=== PATIENT | male | born 1960 | race Caucasian/White ===

== ENCOUNTER 2018-05-18 14:43 | Inpatient (IN) | payer MEDICARE, SELFPAY ==
[2018-05-18 14:44] VITALS: BP 134/118; PULSE 109; RESP 17; TEMP 36.5; O2SAT 95; BMI 28.0
--- NOTE | 2018-05-18 15:07 | CT_ITS ---
STUDY: CT ABDOMEN AND PELVIS WITH CONTRAST REASON FOR EXAM: Male, 57 years old. Upper abdominal pain. Nausea and vomiting. RADIATION DOSAGE (If Supplied By Facility): CTDIvol = ( 19.95 ) mGy, DLP = ( 1261.91 ) mGycm TECHNIQUE: Transaxial images were obtained from the dome of the diaphragm to the symphysis pubis without oral contrast. 100mL ml of Isovue 300 contrast was administered. Sagittal and coronal images were reconstructed. # of Images: 454 Individualized dose optimization techniques were used for this CT. COMPARISON: None. FINDINGS: The visualized lung bases are unremarkable. The visualized portions of the heart are within normal limits. Normal liver. Normal gallbladder and extrahepatic biliary system. Normal spleen. There is mild enlargement of the pancreatic head, with associated edema. Findings are consistent with localized mild pancreatitis. No focal fluid collections or evidence for pseudocyst. There is a 2 cm low-attenuation mass of the right adrenal gland consistent with adenoma. Normal left adrenal gland. Right kidney has several renal cysts measuring as much as 4 cm. Left kidney has a tiny exophytic cyst of the lower pole. There is symmetric contrast enhancement of both kidneys. No renal stones. No hydronephrosis. Evaluation of the GI tract is limited by absence of oral contrast. Cannot exclude stomach wall thickening. No dilated loops of bowel or evidence for obstruction. Cannot exclude segmental thickening of the dotson of the small or large bowel. Cannot exclude enteritis or colitis. Appendix within normal limits. Normal abdominal aorta. Normal inferior vena cava. Normal retroperitoneum. There is a 2 cm diverticulum of the left side of the bladder. Otherwise normal bladder contour. Normal abdominal wall. Skeletal structures show extensive postsurgical changes of the lumbar spine. There is demineralization. There is lateral mass fusion along the entire length of the lumbar spine. There is focal kyphosis at L3. There is no definite acute abnormality. CT/Abdomen/Pelvis W IV Cont ONLY IMPRESSION: Findings consistent with mild localized pancreatitis of the pancreatic head. Probable 2 cm right adrenal gland adenoma. Suggest follow-up in 6 months. Electronically Signed: Will Quigley MD at 16:59 EDT , Service support ,
--- NOTE | 2018-05-18 15:23 | ED.DCSUM_ITS ---
- ER Visit Summary Date of Service: 05/18/18 Chief Complaint: Abdominal pain History of Present Illness: The patient is a 57 M presenting with abdominal pain. He states this started on Thursday. He was seen by his primary care physician. He states he has had persistent pain throughout the weekend. He has nausea and vomiting. He denies diarrhea. He had a normal bowel movement today. Denies blood in his emesis or stool. No fevers. He denies shortness of breath or chest pain. Physical Examination: Vitals are stable. Patient is afebrile. Alert no acute distress. HEENT exam is unremarkable. Neck is supple. Lungs are clear and equal bilaterally. Heart is regular rate and rhythm. Abdomen is soft healed scar midline with tenderness, no rebound or guarding Extremities are unremarkable. Skin is warm and dry. No focal neurologic deficit. Remainder of exam is unremarkable. Emergency Department Course and Treatment: Patient is given morphine, Zofran IV. CBC shows a white count 11.7. Chemistries show sodium 134, potassium 3.3, g lucose 145. Lipase is 609. CT abdomen pelvis shows findings consistent with mild localized pancreatitis of the pancreatic head. Probable 2 cm right adrenal gland adenoma. Suggest follow-up in 6 months. He was given repeated dose of morphine. Discussed with the hospitalist for admission. Disposition: Admission Impression: Pancreatitis This note was generated with [employer] dictation software. It may contain incorrect words, spelling, and punctuation that were not noted in review of the chart prior to signing ED Disposition - Plan for ED Patient: Chief Complaint: Abd Pain Referrals: Linda Dominguez MD [Primary Care Provider] -
[2018-05-18] MEDS: Morphine 4 MG/ML Syringe IV ×2 (15:39→16:36)
[2018-05-18] MEDS: 0.9% Normal Saline 1,000 ML 1000 ML IV (15:39)
[2018-05-18] MEDS: Ondansetron 4 MG/2 ML Vial IV (15:39)
[2018-05-18 16:04] LABS: ALB/GLOB Ratio 0.8 RATIO (0.9-2.4); AST(SGOT) 34 U/L (15-37); Alanine Aminotransfer ALT/SGPT 47 U/L (16-61); Albumin, Serum 3.5 g/dL (3.2-5.0); Alkaline Phosphatase 93 U/L (45-117); Anion Gap 7 (5-15); BUN 17 mg/dL (7-18); BUN/Creat Ratio 20.2 RATIO (10-20); Calcium,Total 9.1 mg/dL (8.5-10.1); Chloride 99 mmol/L (98-107); Creatinine, Serum 0.84 mg/dL (0.70-1.30); EST Glomerular Filtration Rate 99 mL/min (>60); Est Glom Filt Rate - Afr Amer 120 mL/min (>60); Globulin 4.3 g/dL (2.2-4.2); Glucose 145 mg/dL (74-106); Lipase 609 U/L (73-393); Potassium 3.3 mmol/L (3.5-5.1); Protein, Total 7.8 g/dL (6.4-8.2); Sodium Level 134 mmol/L (136-145)
[2018-05-18 16:09] LABS: Absolute Lymphocyte Count 2.54 X10^3/ul (0.83-4.51); Absolute Neutrophil Count 7.8 X10^3/uL (2.0-7.7); Basophil# 0.04 X10^3/uL; Basophil% 0.3 % (0-1); Eosinophil# 0.19 X10^3/uL; Eosinophils% 1.6 % (0-5); Hematocrit 42.4 % (40-54); Hemoglobin 14.8 g/dl (13.0-16.5); Lymphocyte # 2.54 X10^3/ul (4.0); Lymphocyte % 21.8 % (19-41); Mean Corp Hgb Conc 34.9 g/gl (32-36); Mean Corpuscular Hgb 32.6 pg (27.0-32.0); Mean Corpuscular Volume 93.4 fL (80-94); Mean Platelet Vol. 9.8 fl (6.2-12.0); Monocyte# 1.07 X10^3/uL; Monocyte% 9.2 % (0-10); Neutrophil % 66.9 % (47-70); Platelet Count 252 K/mm3 (150-450); RBC Distribution Width CV 12.7 % (11.6-14.6); RBC Distribution Width SD 42.9 fl (35.1-43.9); Red Blood Count 4.54 M/mm3 (4.6-6.2); White Blood Count 11.7 K/mm3 (4.4-11.0)
[2018-05-18 16:10] LABS: POSITIVE COUNT NO; POSITIVE DIFFERENTIAL NO; POSITIVE MORPHOLOGY NO
[2018-05-18 16:58] VITALS: BP 142/84; PULSE 94; RESP 16; O2SAT 98
--- NOTE | 2018-05-18 17:45 | PCM.HP.STD ---
Problem List (1) Acute pancreatitis Status: Acute (2) Hypertension Status: Chronic (3) Chronic lower back pain Status: Chronic History of Present Illness Date of Admission: 05/18/18 Chief Complaint: Abdominal pain. The patient is a 57 year old M with past medical history as mentioned above presented to the emergency department because of abdominal pain. Her symptoms started around 4-5 days ago with epigastric pain, dull aching pain, occasionally sharp, was progressive and initially was 4-5 out of 10 severity, progressed since yesterday and now it is up to 9 out of 10 in severity, not radiating, associated with nausea and without aggravating or relieving factors. Shortly, the pain was intermittent but it has been constant for the last couple of days. He denied fever or chills. He denied constipation or diarrhea. He mentioned that he had bronchitis last week and he has been on different medications for cough and also has been taking prednisone and Zithromax. In the emergency department, he was afebrile, slightly tachycardic, other vital signs are stable. Routine blood work was remarkable for mild leukocytosis, potassium of 3.3. His LFT was normal. Lipase was 609. CT scan abdomen and pelvis with IV contrast revealed findings consistent with mild localized pancreatitis of the pancreatic head. He is being admitted for acute mild pancreatitis for treatment. Past Medical History Past Medical History (Chronic Problems): Chronic Problems Hypertension (Chronic) Chronic lower back pain (Chronic) Allergies acetaminophen Adverse Reaction (Verified 05/18/18 14:44) Nausea/Vom/Diarrhea fentanyl [From Duragesic] Adverse Reaction (Verified 05/18/18 14:44) Nausea/Vom/Diarrhea metoclopramide HCl [From Reglan] Adverse Reaction (Verified 05/18/18 14:44) Other nabumetone [From Relafen] Adverse Reaction (Verified 05/18/18 14:44) Nausea/Vom/Diarrhea Home Medications: Ambulatory Orders Medication Instructions Recorded Triamterene 37.5MG/Hctz 25MG 1 tablet PO DAILY 12/12/13 [Maxzide 37.5 mg-25 mg Tablet] Albuterol Sulfate [Ventolin Hfa] 2 puff INHALATION Q4H 05/18/18 Aspirin 650 mg PO DAILY@0800 05/18/18 Cyclobenzaprine [Flexeril] 10 mg PO TID PRN PRN 05/18/18 Meloxicam 15 mg PO DAILY 05/18/18 Prednisone 10 mg PO PRN PRN 05/18/18 Surgical History: herniorrhaphy, - - Back surgery. Psychiatric History: No pertinent psych hx Lives: Spouse/ Significant Other Smoking Status: Former smoker Alcohol: Heavy Drugs: None - *Family History Paternal History Items: No pertinent history - Cardiac history is negative in first-degree family relative Maternal History Items: No pertinent history Review of Systems Constitutional: Reports: Anorexia. Denies: Chills, Fever, Weakness Eyes: Denies: Blurred vision, Conjunctivae Inflammation, Double vision, Redness HEENT: Denies: Difficulty Hearing, Ear Pain, Eye Pain, Nasal Congestion, Sore Throat Cardiovascular: Denies: Chest Pain, Chest Pressure, Edema, Heaviness, Paroxysmal Noc. Dyspnea, Syncope Respiratory: Denies: Cough, Pleuritic Pain, Shortness of Breath, Sputum production, Wheezing Gastrointestinal: Reports: Abdominal Pain, Nausea. Denies: Constipation, Diarrhea, Hematochezia, Melena, Vomiting Genitourinary: Denies: Dysuria, Frequency, Hematuria Musculoskeletal: Reports: Back Pain. Denies: Arm Pain, Foot Pain Skin: Denies: Dryness, Rash Neurological: Denies: Balance problems, Double vision, Change in Speech, Slurred speech, Confusion, Focal weakness, Headaches, Incoordination Psychiatric: Denies: Anxiety, Depression VTE Information - Inpt Only VTE Present on Admission: No VTE Mechan Device Prophylaxis: None VTE Pharm Prophylaxis ordered?: Yes Patient Problems: Active and Suspected Problems Acute pancreatitis (Acute) - Physical Exam General: Alert, Oriented x3, Cooperative, No apparent distress HEENT: Atraumatic, PERRLA, EOMI, Normocephalic Oral: Moist Mucosa, No Gingival or Mucosal Lesions/ Ulcerations Neck: Supple, No JVD, Negative Carotid Bruits, Trachea Midline, Thyroid Normal Size and Texture Lungs: Clear to auscultation, No rhonchi, No wheeze, No rales, Diminished Cardiovascular: Regular rate, Regular Rhythm, Normal S1, Normal S2, PMI Normal Abdomen: Bowel Sounds Present, Soft, Non-Distended, No Hepato-splenomegaly, Tender - Epigastric tenderness, no guarding or rigidity. Extremities: No clubbing, No cyanosis, No edema Skin: No rashes, No breakdown Lymphatic: No Cervical, Supraclavicular, or Inguinal Adenopathy Neurological: Cranial nerves II-XII grossly intact, Motor Exam 5/5 strength throughout Psych/Mental Status: Normal Affect, Appropriate, Alert and oriented to time, place, person, mood and affect Vital Signs Temp Pulse Resp BP Pulse Ox 97.7 F L 94 16 142/84 H 98 05/18/18 14:44 05/18/18 16:58 05/18/18 16:58 05/18/18 16:58 05/18/18 16:58 Oxygen Delivery Method Room Air Weight: 236 lb Body Mass Index (BMI) 28.0 Laboratory Tests Past 24 Hrs 05/18/18 05/18/18 15:30 15:30 WBC 11.7 H RBC 4.54 L Hgb 14.8 Hct 42.4 MCV 93.4 MCH 32.6 H MCHC 34.9 RDW 12.7 RDW Differential 42.9 Plt Count 252 MPV 9.8 Immature Gran % (Auto) 0.200 Neut % (Auto) 66.9 Lymph % (Auto) 21.8 [place] % (Auto) 9.2 Eos % (Auto) 1.6 Baso % (Auto) 0.3 Absolute Neuts (auto) 7.8 H Absolute Lymphs (auto) 2.54 Total Counted Not Reportable Sodium 134 L Potassium 3.3 L Chloride 99 Carbon Dioxide 28.0 Anion Gap 7 BUN 17 Creatinine 0.84 Estim Creat Clear Calc 120.80 Est GFR (MDRD) Af Amer 120 Est GFR (MDRD) Non-Af 99 BUN/Creatinine Ratio 20.2 H Glucose 145 H Calcium 9.1 Total Bilirubin 0.40 AST 34 ALT 47 Alkaline Phosphatase 93 Total Protein 7.8 Albumin 3.5 Globulin 4.3 H Albumin/Globulin Ratio 0.8 L Lipase 609 H Clinical Impression(s) from Imaging Studies Abdomen/Pelvis CT 05/18/18 15:07 IMPRESSION: Findings consistent with mild localized pancreatitis of the pancreatic head. Probable 2 cm right adrenal gland adenoma. Suggest follow-up in 6 months. Electronically Signed: Will Quigley MD at 16:59 EDT , Service support , Assessment/Plan All Active Problems Acute pancreatitis (Acute) This is a 57 years old male patient presented to the emergency department because of abdominal pain and he was found to have mildly elevated pancreatic lipase and findings consistent with mild localized acute pancreatitis of the clear liquid and he is being admitted for treatment. #1 acute mild localized pancreatitis of the pancreatic head: CT scan abdomen and pelvis reviewed. It revealed localized pancreatitis of the precasting head. It also showed normal liver, normal gallbladder and extrahepatic biliary system. LFTs normal. Patient admitting to drinking alcohol 3 times almost every other day but not daily. He has been taking prednisone for the last couple of days because of bronchitis. This pancreatitis could be due to alcoholic pancreatitis versus steroid-induced. Plan: Admit to [facility] floor, keep on clear liquids, IV fluids, IV morphine as needed for pain, IV antiemetics, routine EKG, repeat CBC and CMP tomorrow morning, repeat lipase tomorrow morning, fasting lipid profile. #2 hypokalemia: Likely due to Maxzide. Plan to replace potassium with IV fluids, repeat BMP tomorrow morning. #3 hypertension: Blood pressure stable at this time, continue Maxzide, IV hydralazine as needed. #4 chronic back pain: Continue Flexeril, IV morphine as above. #5 DVT prophylaxis: Subcu Lovenox. This note was generated with [employer] dictation software. It may contain incorrect words, spelling, and punctuation that were not noted in checking the note before signing. Code Visit Inpatient E&M: 98658 Init Hosp L3
--- NOTE | 2018-05-18 17:49 | HP.PCM_ITS ---
Problem List (1) Acute pancreatitis Status: Acute (2) Hypertension Status: Chronic (3) Chronic lower back pain Status: Chronic History of Present Illness Date of Admission: 05/18/18 Chief Complaint: Abdominal pain. The patient is a 57 year old M with past medical history as mentioned above presented to the emergency department because of abdominal pain. Her symptoms s tarted around 4-5 days ago with epigastric pain, dull aching pain, occasionally sharp, was progressive and initially was 4-5 out of 10 severity, progressed since yesterday and now it is up to 9 out of 10 in severity, not radiating, associated with nausea and without aggravating or relieving factors. Shortly, the pain was intermittent but it has been constant for the last couple of days. He denied fever or chills. He denied constipation or diarrhea. He mentioned that he had bronchitis last week and he has been on different medications for cough and also has been taking prednisone and Zithromax. In the emergency department, he was afebrile, slightly tachycardic, other vital signs are stable. Routine blood work was remarkable for mild leukocytosis, potassium of 3.3. His LFT was normal. Lipase was 609. CT scan abdomen and pelvis with IV contrast revealed findings consistent with mild localized pancreatitis of the pancreatic head. He is being admitted for acute mild pancreatitis for treatment. Past Medical History Past Medical History (Chronic Problems): Chronic Problems Hypertension (Chronic) Chronic lower back pain (Chronic) Allergies acetaminophen Adverse Reaction (Verified 05/18/18 14:44) Nausea/Vom/Diarrhea fentanyl [From Duragesic] Adverse Reaction (Verified 05/18/18 14:44) Nausea/Vom/Diarrhea metoclopramide HCl [From Reglan] Adverse Reaction (Verified 05/18/18 14:44) Other nabumetone [From Relafen] Adverse Reaction (Verified 05/18/18 14:44) Nausea/Vom/Diarrhea Home Medications: Ambulatory Orders Medication Instructions Recorded Triamterene 37.5MG/Hctz 25MG 1 tablet PO DAILY 12/12/13 [Maxzide 37.5 mg-25 mg Tablet] Albuterol Sulfate [Ventolin Hfa] 2 puff INHALATION Q4H 05/18/18 Aspirin 650 mg PO DAILY@0800 05/18/18 Cyclobenzaprine [Flexeril] 10 mg PO TID PRN PRN 05/18/18 Meloxicam 15 mg PO DAILY 05/18/18 Prednisone 10 mg PO PRN PRN 05/18/18 Surgical History: herniorrhaphy, - - Back surgery. Psychiatric History: No pertinent psych hx Lives: Spouse/ Significant Other Smoking Status: Former smoker Alcohol: Heavy Drugs: None - *Family History Paternal History Items: No pertinent history - Cardiac history is negative in first- degree family relative Maternal History Items: No pertinent history Review of Systems Constitutional: Reports: Anorexia. Denies: Chills, Fever, Weakness Eyes: Denies: Blurred vision, Conjunctivae Inflammation, Double vision, Redness HEENT: Denies: Difficulty Hearing, Ear Pain, Eye Pain, Nasal Congestion, Sore Throat Cardiovascular: Denies: Chest Pain, Chest Pressure, Edema, Heaviness, Paroxysmal Noc. Dyspnea, Syncope Respiratory: Denies: Cough, Pleuritic Pain, Shortness of Breath, Sputum production, Wheezing Gastrointestinal: Reports: Abdominal Pain, Nausea. Denies: Constipation, Diarrhea, Hematochezia, Melena, Vomiting Genitourinary: Denies: Dysuria, Frequency, Hematuria Musculoskeletal: Reports: Back Pain. Denies: Arm Pain, Foot Pain Skin: Denies: Dryness, Rash Neurological: Denies: Balance problems, Double vision, Change in Speech, Slurred speech, Confusion, Focal weakness, Headaches, Incoordination Psychiatric: Denies: Anxiety, Depression VTE Information - Inpt Only VTE Present on Admission: No VTE Mechan Device Prophylaxis: None VTE Pharm Prophylaxis ordered?: Yes Patient Problems: Active and Suspected Problems Acute pancreatitis (Acute) - Physical Exam General: Alert, Oriented x3, Cooperative, No apparent distress HEENT: Atraumatic, PERRLA, EOMI, Normocephalic Oral: Moist Mucosa, No Gingival or Mucosal Lesions/ Ulcerations Neck: Supple, No JVD, Negative Carotid Bruits, Trachea Midline, Thyroid Normal Size and Texture Lungs: Clear to auscultation, No rhonchi, No wheeze, No rales, Diminished Cardiovascular: Regular rate, Regular Rhythm, Normal S1, Normal S2, PMI Normal Abdomen: Bowel Sounds Present, Soft, Non-Distended, No Hepato-splenomegaly, Tender - Epigastric tenderness, no guarding or rigidity. Extremities: No clubbing, No cyanosis, No edema Skin: No rashes, No breakdown Lymphatic: No Cervical, Supraclavicular, or Inguinal Adenopathy Neurological: Cranial nerves II-XII grossly intact, Motor Exam 5/5 strength th roughout Psych/Mental Status: Normal Affect, Appropriate, Alert and oriented to time, place, person, mood and affect Vital Signs Temp Pulse Resp BP Pulse Ox 97.7 F L 94 16 142/84 H 98 05/18/18 14:44 05/18/18 16:58 05/18/18 16:58 05/18/18 16:58 05/18/18 16:58 Oxygen Delivery Method Room Air Weight: 236 lb Body Mass Index (BMI) 28.0 Laboratory Tests Past 24 Hrs 05/18/18 05/18/18 15:30 15:30 WBC 11.7 H RBC 4.54 L Hgb 14.8 Hct 42.4 MCV 93.4 MCH 32.6 H MCHC 34.9 RDW 12.7 RDW Differential 42.9 Plt Count 252 MPV 9.8 Immature Gran % (Auto) 0.200 Neut % (Auto) 66.9 Lymph % (Auto) 21.8 [place] % (Auto) 9.2 Eos % (Auto) 1.6 Baso % (Auto) 0.3 Absolute Neuts (auto) 7.8 H Absolute Lymphs (auto) 2.54 Total Counted Not Reportable Sodium 134 L Potassium 3.3 L Chloride 99 Carbon Dioxide 28.0 Anion Gap 7 BUN 17 Creatinine 0.84 Estim Creat Clear Calc 120.80 Est GFR (MDRD) Af Amer 120 Est GFR (MDRD) Non-Af 99 BUN/Creatinine Ratio 20.2 H Glucose 145 H Calcium 9.1 Total Bilirubin 0.40 AST 34 ALT 47 Alkaline Phosphatase 93 Total Protein 7.8 Albumin 3.5 Globulin 4.3 H Albumin/Globulin Ratio 0.8 L Lipase 609 H Clinical Impression(s) from Imaging Studies Abdomen/Pelvis CT 05/18/18 15:07 IMPRESSION: Findings consistent with mild localized pancreatitis of the pancreatic head. Probable 2 cm right adrenal gland adenoma. Suggest follow-up in 6 months. Electronically Signed: Will Quigley MD at 16:59 EDT , Service support , Assessment/Plan All Active Problems Acute pancreatitis (Acute) This is a 57 years old male patient presented to the emergency department because of abdominal pain and he was found to have mildly elevated pancreatic lipase and findings consistent with mild localized acute pancreatitis of the clear liquid and he is being admitted for treatment. #1 acute mild localized pancreatitis of the pancreatic head: CT scan abdomen and pelvis reviewed. It revealed localized pancreatitis of the precasting head. It also showed normal liver, normal gallbladder and extrahepatic biliary system. LFTs normal. Patient admitting to drinking alcohol 3 times almost every other day but not daily. He has been taking prednisone for the last couple of days because of bronchitis. This pancreatitis could be due to alcoholic pancreatitis versus steroid-induced. [facility], keep on clear liquids, IV fluids, IV morphine as needed for pain, IV antiemetics, routine EKG, repeat CBC and CMP tomorrow morning, repeat lipase tomorrow morning, fasting lipid profile. #2 hypokalemia: Likely due to Maxzide. Plan to replace potassium with IV fluids, repeat BMP tomorrow morning. #3 hypertension: Blood pressure stable at this time, continue Maxzide, IV hydralazine as needed. #4 chronic back pain: Continue Flexeril, IV morphine as above. #5 DVT prophylaxis: Subcu Lovenox. This note was generated with [employer] dictation software. It may contain incorrect words, spelling, and punctuation that were not noted in checking the note before signing. Code Visit Inpatient E&M: 18136 Init Hosp L3
[2018-05-18 17:55] VITALS: BMI 28.7
[2018-05-18 18:02] VITALS: BMI 28.7
[2018-05-18 18:08] VITALS: BP 154/95; PULSE 105; RESP 16; TEMP 36.6; O2SAT 95
[2018-05-18 18:17] VITALS: PULSE 105
--- NOTE | 2018-05-18 18:58 | EKG12_ITS ---
Test Reason : HYPERTENSION Blood Pressure : / mmHG Vent. Rate : 102 BPM Atrial Rate : 102 BPM P-R Int : 150 ms QRS Dur : 154 ms QT Int : 390 ms P-R-T Axes : 015 036 -10 degrees QTc Int : 508 ms Sinus tachycardia Right bundle branch block T wave abnormality, consider inferior ischemia Abnormal ECG When compared with ECG of 27-APR-2014 05:47, Vent. rate has increased BY 38 BPM Right bundle branch block is now Present Confirmed by TESS MITCHELL, JOSE ([id number]), newspaper or periodical editor DESHAWN PATE ([id number] on 05/24/2018 11:02:26 AM Referred By: SHANON Confirmed By:JOSE PULIDO MD
[2018-05-18] MEDS: Morphine 2 MG/ML Syringe IV ×2 (19:31→22:53)
[2018-05-19] VITALS (8 sets, daily range): BP systolic 117–129; BP diastolic 78–87; PULSE 80–98; RESP 16–18; TEMP 36.4–36.9; O2SAT 92–96
[2018-05-19] MEDS: Ondansetron 4 MG/2 ML Vial IV ×2 (03:34→16:53)
[2018-05-19] MEDS: Morphine 2 MG/ML Syringe IV ×5 (03:34→22:20)
[2018-05-19 06:31] LABS: Absolute Lymphocyte Count 1.58 X10^3/ul (0.83-4.51); Absolute Neutrophil Count 6.3 X10^3/uL (2.0-7.7); Basophil# 0.05 X10^3/uL; Basophil% 0.5 % (0-1); Eosinophil# 0.26 X10^3/uL; Eosinophils% 2.9 % (0-5); Hemoglobin 13.6 g/dl (13.0-16.5); Lymphocyte # 1.58 X10^3/ul (4.0); Lymphocyte % 17.3 % (19-41); Mean Corp Hgb Conc 34.9 g/gl (32-36); Mean Corpuscular Hgb 32.8 pg (27.0-32.0); Mean Platelet Vol. 10.1 fl (6.2-12.0); Monocyte# 0.93 X10^3/uL; Monocyte% 10.2 % (0-10); Neutrophil # 6.28 X10^3/uL (2.7-7.7); Neutrophil % 68.9 % (47-70); Platelet Count 252 K/mm3 (150-450); RBC Distribution Width CV 12.4 % (11.6-14.6); RBC Distribution Width SD 41.7 fl (35.1-43.9); Red Blood Count 4.15 M/mm3 (4.6-6.2); White Blood Count 9.1 K/mm3 (4.4-11.0)
[2018-05-19 06:32] LABS: POSITIVE COUNT NO; POSITIVE DIFFERENTIAL NO; POSITIVE MORPHOLOGY NO
[2018-05-19 07:00] LABS: ALB/GLOB Ratio 0.7 RATIO (0.9-2.4); AST(SGOT) 18 U/L (15-37); Alanine Aminotransfer ALT/SGPT 37 U/L (16-61); Albumin, Serum 2.8 g/dL (3.2-5.0); Alkaline Phosphatase 78 U/L (45-117); Anion Gap 10 (5-15); BUN 13 mg/dL (7-18); BUN/Creat Ratio 21.6 RATIO (10-20); Calcium,Total 8.3 mg/dL (8.5-10.1); Chloride 102 mmol/L (98-107); Cholesterol 159 mg/dL (200); EST Glomerular Filtration Rate 146 mL/min (>60); Est Glom Filt Rate - Afr Amer 177 mL/min (>60); Estimated Creatinine Clearance 169.13 ml/min; Globulin 3.9 g/dL (2.2-4.2); Glucose 103 mg/dL (74-106); High Density Lipoprotein 44 mg/dL; Lipase 344 U/L (73-393); Potassium 3.5 mmol/L (3.5-5.1); Protein, Total 6.7 g/dL (6.4-8.2); Sodium Level 138 mmol/L (136-145); Triglycerides 66 mg/dL; Very Low Density Lipoprotein 13 mg/dL (5-40)
[2018-05-19] MEDS: Triamterene 37.5MG/Hctz 25MG Capsule 1 CAP PO (08:58)
--- NOTE | 2018-05-19 09:45 | CASEMGMT ---
RN KELBY Face to Face with patient for initial transition planning/care coordination assessment. RN CM introduced self and role at [facility]. Patient lying in bed, alert and oriented. Patient willing to participate in assessment and is able to answer all questions appropriately. Care providers, pharmacy, and demographics verified. Patient wishes to discharge home, denies need for home health at this time. Patient states he has no further needs or concerns at this time. CM to follow for discharge planning needs that may arise. PCP: Angelica Specialists: None Preferred Pharmacy: [facility] Insurance: [facility] Prescription Benefit: [employer] Living Will/HPOA: No, declined additional information LNOK: Living Arrangements: Lives with in first floor apartment, independent Transportation: Self or DME/HHC: Has cane, WC, and scooter. Declines HHC or additional DME at this time. Disposition Plan: Patient to discharge home with family support and follow-up plans in place. Kayla MENAS, RN, CM
--- NOTE | 2018-05-19 10:01 | PCM.PN.HOSP ---
Patient Problems: Active and Suspected Problems Acute pancreatitis (Acute) Subjective: Abdominal pain is better but still ongoing. This is all consistent with his prior episodes of pancreatitis. Self medicates because he cannot take opiates as it makes him groggy and nauseated. Vitals/I&O's: Vital Signs Temp Pulse Resp BP Pulse Ox 36.5 C L 80 16 129/87 H 92 05/19/18 05:49 05/19/18 08:01 05/19/18 05:49 05/19/18 05:49 05/19/18 07:27 Oxygen Delivery Method Room Air Weight: 109.769 kg Body Mass Index (BMI) 28.7 Intake and Output for Last 24 Hours 05/17/18 05/18/18 05/19/18 23:59 23:59 23:59 Intake Total 1364 / 1364 Output Total 950 / 950 Balance 414 / 414 General: Alert, Cooperative, No apparent distress HEENT: Atraumatic, Normocephalic Oral: Moist Mucosa, No Gingival or Mucosal Lesions/ Ulcerations Neck: No Nodes, Thyroid Normal Size and Texture Lungs: Clear to auscultation, Normal air movement, No rhonchi, No wheeze Cardiovascular: Regular rate, Regular Rhythm, Normal S1, Normal S2, No murmurs Abdomen: Bowel Sounds Present, Soft, Non-Distended, Tender - Epigastric Extremities: No edema, No Calf Tenderness Skin: No rashes, No breakdown Musculoskeletal: No Tenderness to Palpation of Joints or Extremities, No Muscle Wasting Psych/Mental Status: Normal Affect, Appropriate Laboratory Results 05/18/18 15:30: WBC 11.7 H, RBC 4.54 L, Hgb 14.8, Hct 42.4, MCV 93.4, MCH 32.6 H, MCHC 34.9, RDW 12.7, RDW Differential 42.9, Plt Count 252, MPV 9.8, Immature Gran % (Auto) 0.200, Neut % (Auto) 66.9, Lymph % (Auto) 21.8, [place] % (Auto) 9.2, Eos % (Auto) 1.6, Baso % (Auto) 0.3, Absolute Neuts (auto) 7.8 H, Absolute Lymphs (auto) 2.54, Total Counted Not Reportable 05/18/18 15:30: Sodium 134 L, Potassium 3.3 L, Chloride 99, Carbon Dioxide 28.0, Anion Gap 7, BUN 17, Creatinine 0.84, Estim Creat Clear Calc 120.80, Est GFR (MDRD) Af Amer 120, Est GFR (MDRD) Non-Af 99, BUN/Creatinine Ratio 20.2 H, Glucose 145 H, Calcium 9.1, Total Bilirubin 0.40, AST 34, ALT 47, Alkaline Phosphatase 93, Total Protein 7.8, Albumin 3.5, Globulin 4.3 H, Albumin/Globulin Ratio 0.8 L, Lipase 609 H 05/19/18 05:26: WBC 9.1, RBC 4.15 L, Hgb 13.6, Hct 39.0 L, MCV 94.0, MCH 32.8 H, MCHC 34.9, RDW 12.4, RDW Differential 41.7, Plt Count 252, MPV 10.1, Immature Gran % (Auto) 0.200, Neut % (Auto) 68.9, Lymph % (Auto) 17.3 L, [place] % (Auto) 10.2 H, Eos % (Auto) 2.9, Baso % (Auto) 0.5, Absolute Neuts (auto) 6.3, Absolute Lymphs (auto) 1.58, Total Counted Not Reportable 05/19/18 05:26: Sodium 138, Potassium 3.5, Chloride 102, Carbon Dioxide 26.0, Anion Gap 10, BUN 13, Creatinine 0.60 L, Estim Creat Clear Calc 169.13, Est GFR (MDRD) Af Amer 177, Est GFR (MDRD) Non-Af 146, BUN/Creatinine Ratio 21.6 H, Glucose 103, Calcium 8.3 L, Total Bilirubin 0.80, AST 18, ALT 37, Alkaline Phosphatase 78, Total Protein 6.7, Albumin 2.8 L, Globulin 3.9, Albumin/Globulin Ratio 0.7 L, Triglycerides 66, Cholesterol 159, LDL Cholesterol 102, VLDL Cholesterol 13, HDL Cholesterol 44, Lipase 344 Current Medications Albuterol Sulfate (Ventolin Aerosols) 2.5 mg INHALATION Q4H PRN PRN PRN Reason: Shortness of breath, wheezing Cyclobenzaprine HCl (Flexeril) 10 mg PO TID PRN PRN PRN Reason: PAIN Enoxaparin Sodium (Lovenox) 40 mg SC DAILY ROXANA Hydralazine HCl (Apresoline Iv) 5 mg IV Q6H PRN PRN PRN Reason: for SBP>160 Potassium Chloride/Sodium Chloride () 1,000 mls @ 125 mls/hr IV .Q8H [facility] Last Admin: 05/19/18 03:40 Dose: 125 mls/hr Magnesium Hydroxide (Milk Of Magnesia) 30 ml PO DAILY PRN PRN PRN Reason: Constipation Morphine Sulfate () 1 - 2 mg IV Q3H PRN PRN PRN Reason: SEVERE PAIN (6-05/12) Last Admin: 05/19/18 07:20 Dose: 2 mg Nutritional Formula (Lactose Free) (Ensure Clear) 120 ml PO 4X/DAY [facility] Last Admin: 05/19/18 08:58 Dose: 120 ml Ondansetron HCl (Zofran) 4 mg IV Q6H PRN PRN PRN Reason: NAUSEA/VOMITING Last Admin: 05/19/18 03:34 Dose: 4 mg Triamterene/HCTZ (Dyazide (G)) 1 cap PO DAILY [facility] Last Admin: 05/19/18 08:58 Dose: 1 cap Medical Necessity - Tobacco Use Smoking Status: Former smoker Tobacco Use: Cigarettes Assessment/Plan All Active Problems Acute pancreatitis (Acute) 1. Acute pancreatitis Secondary to alcohol Patient claims only drink a few beers every 2 or 3 days. 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 I advised complete cessation of alcohol, patient x-rays understanding. In the meantime, continue with IV fluids, pain control and antiemetics. I told the patient that to evaluate if any other possibilities for his pink otitis may be at play, that the alcohol need to be taken out completely before that can be further assessed. Vision on a clear diet and if he tolerates that then could advance to full liquid diet later today. 2. Chronic back pain Patient had a L3 vertebral burst fracture in the early 1980s Patient states that he has been self-medicating with alcohol. Cannot take opiates due to side effects Patient had seen pain management but declined injection I asked patient to reevaluate that at a later point if it is causing him much discomfort to pursue an injection I also recommend patient follow-up with physical therapy as well 3. DVT prophylaxis with Lovenox 4. Disposition: Depending on patient's overall response overall doing better clinically then could be discharged in next 24-48 hours. 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 Also discussed pain control and other modalities therapy to help him with his chronic back pain. Code Visit Inpatient E&M: 47598 Subs Hosp L3
--- NOTE | 2018-05-19 10:06 | PN_ITS ---
Patient Problems: Active and Suspected Problems Acute pancreatitis (Acute) Subjective: Abdominal pain is better but still ongoing. This is all consistent with his prior episodes of pancreatitis. Self medicates because he cannot take opiates as it makes him groggy and nauseated. Vitals/I&O's: Vital Signs Temp Pulse Resp BP Pulse Ox 36.5 C L 80 16 129/87 H 92 05/19/18 05:49 05/19/18 08:01 05/19/18 05:49 05/19/18 05:49 05/19/18 07:27 Oxygen Delivery Method Room Air Weight: 109.769 kg Body Mass Index (BMI) 28.7 Intake and Output for Last 24 Hours 05/17/18 05/18/18 05/19/18 23:59 23:59 23:59 Intake Total 1364 / 1364 Output Total 950 / 950 Balance 414 / 414 General: Alert, Cooperative, No apparent distress HEENT: Atraumatic, Normocephalic Oral: Moist Mucosa, No Gingival or Mucosal Lesions/ Ulcerations Neck: No Nodes, Thyroid Normal Size and Texture Lungs: Clear to auscultation, Normal air movement, No rhonchi, No wheeze Cardiovascular: Regular rate, Regular Rhythm, Normal S1, Normal S2, No murmurs Abdomen: Bowel Sounds Present, Soft, Non-Distended, Tender - Epigastric Extremities: No edema, No Calf Tenderness Skin: No rashes, No breakdown Musculoskeletal: No Tenderness to Palpation of Joints or Extremities, No Muscle Wasting Psych/Mental Status: Normal Affect, Appropriate Laboratory Results 05/18/18 15:30: WBC 11.7 H, RBC 4.54 L, Hgb 14.8, Hct 42.4, MCV 93.4, MCH 32.6 H , MCHC 34.9, RDW 12.7, RDW Differential 42.9, Plt Count 252, MPV 9.8, Immature Gran % (Auto) 0.200, Neut % (Auto) 66.9, Lymph % (Auto) 21.8, [place] % (Auto) 9.2, Eos % (Auto) 1.6, Baso % (Auto) 0.3, Absolute Neuts (auto) 7.8 H, Absolute Lymphs (auto) 2.54, Total Counted Not Reportable 05/18/18 15:30: Sodium 134 L, Potassium 3.3 L, Chloride 99, Carbon Dioxide 28.0, Anion Gap 7, BUN 17, Creatinine 0.84, Estim Creat Clear Calc 120.80, Est GFR (MDRD) Af Amer 120, Est GFR (MDRD) Non-Af 99, BUN/Creatinine Ratio 20.2 H, Glucose 145 H, Calcium 9.1, Total Bilirubin 0.40, AST 34, ALT 47, Alkaline Phosphatase 93, Total Protein 7.8, Albumin 3.5, Globulin 4.3 H, Albumin/Globulin Ratio 0.8 L, Lipase 609 H 05/19/18 05:26: WBC 9.1, RBC 4.15 L, Hgb 13.6, Hct 39.0 L, MCV 94.0, MCH 32.8 H, MCHC 34.9, RDW 12.4, RDW Differential 41.7, Plt Count 252, MPV 10.1, Immature Gran % (Auto) 0.200, Neut % (Auto) 68.9, Lymph % (Auto) 17.3 L, [place] % (Auto) 10.2 H, Eos % (Auto) 2.9, Baso % (Auto) 0.5, Absolute Neuts (auto) 6.3, Absolute Lymphs (auto) 1.58, Total Counted Not Reportable 05/19/18 05:26: Sodium 138, Potassium 3.5, Chloride 102, Carbon Dioxide 26.0, Anion Gap 10, BUN 13, Creatinine 0.60 L, Estim Creat Clear Calc 169.13, Est GFR (MDRD) Af Amer 177, Est GFR (MDRD) Non-Af 146, BUN/Creatinine Ratio 21.6 H, Glucose 103, Calcium 8.3 L, Total Bilirubin 0.80, AST 18, ALT 37, Alkaline Phosphatase 78, Total Protein 6.7, Albumin 2.8 L, Globulin 3.9, Albumin/Globulin Ratio 0.7 L, Triglycerides 66, Cholesterol 159, LDL Cholesterol 102, VLDL Cholesterol 13, HDL Cholesterol 44, Lipase 344 Current Medications Albuterol Sulfate (Ventolin Aerosols) 2.5 mg INHALATION Q4H PRN PRN PRN Reason: Shortness of breath, wheezing Cyclobenzaprine HCl (Flexeril) 10 mg PO TID PRN PRN PRN Reason: PAIN Enoxaparin Sodium (Lovenox) 40 mg SC DAILY ROXANA Hydralazine HCl (Apresoline Iv) 5 mg IV Q6H PRN PRN PRN Reason: for SBP>160 Potassium Chloride/Sodium Chloride () 1,000 mls @ 125 mls/hr IV .Q8H ROXANA Last Admin: 05/19/18 03:40 Dose: 125 mls/hr Magnesium Hydroxide (Milk Of Magnesia) 30 ml PO DAILY PRN PRN PRN Reason: Constipation Morphine Sulfate () 1 - 2 mg IV Q3H PRN PRN PRN Reason: SEVERE PAIN (6-05/12) Last Admin: 05/19/18 07:20 Dose: 2 mg Nutritional Formula (Lactose Free) (Ensure Clear) 120 ml PO 4X/DAY [facility] [place] Last Admin: 05/19/18 08:58 Dose: 120 ml Ondansetron HCl (Zofran) 4 mg IV Q6H PRN PRN PRN Reason: NAUSEA/VOMITING Last Admin: 05/19/18 03:34 Dose: 4 mg Triamterene/HCTZ (Dyazide (G)) 1 cap PO DAILY [facility] Last Admin: 05/19/18 08:58 Dose: 1 cap Medical Necessity - Tobacco Use Smoking Status: Former smoker Tobacco Use: Cigarettes Assessment/Plan All Active Problems Acute pancreatitis (Acute) 1. Acute pancreatitis * Secondary to alcohol * Patient claims only drink a few beers every 2 or 3 days. * I told the patient that I am concerned that he has had prior some smoldering pancreatitis due to his chronic alcohol use which is why his lipase was not that elevated. * I advised complete cessation of alcohol, patient x-rays understanding. * In the meantime, continue with IV fluids, pain control and antiemetics. * I told the patient that to evaluate if any other possibilities for his pink otitis may be at play, that the alcohol need to be taken out completely before that can be further assessed. * Vision on a clear diet and if he tolerates that then could advance to full liquid diet later today. 2. Chronic back pain * Patient had a L3 vertebral burst fracture in the early 1980s * Patient states that he has been self-medicating with alcohol. * Cannot take opiates due to side effects * Patient had seen pain management but declined injection * I asked patient to reevaluate that at a later point if it is causing him much discomfort to pursue an injection * I also recommend patient follow-up with physical therapy as well 3. DVT prophylaxis with Lovenox 4. Disposition: Depending on patient's overall response overall doing better clinically then could be discharged in next 24-48 hours. 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 Also discussed pain control and other modalities therapy to help him with his chronic back pain. Code Visit Inpatient E&M: 39596 Subs Hosp L3
[2018-05-19] MEDS: Enoxaparin 40 MG/0.4 ML Syringe SC (11:11)
[2018-05-20 01:35] VITALS: BP 116/77; PULSE 88; RESP 16; TEMP 36.5; O2SAT 93
[2018-05-20] MEDS: Ondansetron 4 MG/2 ML Vial IV (03:29)
[2018-05-20] MEDS: Morphine 2 MG/ML Syringe IV (03:29)
[2018-05-20] MEDS: 0.9% NaCl Peripheral Flush Adult/Peds IV ×2 (06:32→06:34)
[2018-05-20 06:35] VITALS: BP 135/93; PULSE 79; RESP 16; TEMP 36.5; O2SAT 97
[2018-05-20 06:52] LABS: BUN 7 mg/dL (7-18); Creatinine, Serum 0.54 mg/dL (0.70-1.30); EST Glomerular Filtration Rate 168 mL/min (>60); Estimated Creatinine Clearance 187.92 ml/min; Glucose 97 mg/dL (74-106)
[2018-05-20 06:53] LABS: Anion Gap 6 (5-15); BUN/Creat Ratio 13.1 RATIO (10-20); Chloride 110 mmol/L (98-107); Est Glom Filt Rate - Afr Amer 203 mL/min (>60); Lipase 595 U/L (73-393); Potassium 4.2 mmol/L (3.5-5.1); Sodium Level 142 mmol/L (136-145)
[2018-05-20 07:51] VITALS: O2SAT 92
[2018-05-20 08:15] VITALS: BP 147/91; PULSE 83; RESP 20; TEMP 36.6; O2SAT 94
[2018-05-20] MEDS: Enoxaparin 40 MG/0.4 ML Syringe SC (09:31)
[2018-05-20] MEDS: Triamterene 37.5MG/Hctz 25MG Capsule 1 CAP PO (09:33)
--- NOTE | 2018-05-20 13:44 | DCINST_ITS ---
- Discharge Diagnoses Current Active Problems: Current Active and Chronic Problems Acute pancreatitis (Acute) Hypertension (Chronic) You will use the following diet at home:: No restrictions Your food should be the consistency of: Regular Your liquids should be the consistency of: Regular/Thin Discharge Activity: Return to Normal Activity Weight Bearing Status: Full weight bearing Additional Instructions: no alcohol intake Allergies/Adverse Reactions: Allergies acetaminophen Adverse Reaction (Verified 05/18/18 14:44) Nausea/Vom/Diarrhea fentanyl [From Duragesic] Adverse Reaction (Verified 05/18/18 14:44) Nausea/Vom/Diarrhea metoclopramide HCl [From Reglan] Adverse Reaction (Verified 05/18/18 17:57) anxiety nabumetone [From Relafen] Adverse Reaction (Verified 05/18/18 14:44) Nausea/Vom/Diarrhea Medications to take at Discharge Triamterene 37.5MG/Hctz 25MG [Maxzide 37.5 mg-25 mg Tablet] 1 tablet PO DAILY 12/12/13 Albuterol Sulfate [Ventolin Hfa] 2 puff INHALATION Q4H 05/18/18 Cyclobenzaprine [Flexeril] 10 mg PO TID PRN PRN 05/18/18 Prednisone 10 mg PO PRN PRN 05/18/18 Primary Care Physician: Linda Dominguez MD [Primary Care Provider] - Please follow up with your Primary Care Physician in: as directed Test Results: Test results from this visit will be discussed in further detail at your follow- up appointment, if applicable.
[2018-05-20 14:03] VITALS: BP 139/92; PULSE 94; RESP 16; TEMP 36.8; O2SAT 92
--- NOTE | 2018-05-21 16:20 | CASEMGMT ---
[facility] Discharge Follow-up Phone Call: YONI: 10 Strata:3 Call Date:05/21/18 Discharge Date: 05/20/18 Time of Call: 1620 Duration:1 min Admitting Diagnosis: Pancreatitis RN KELBY attempted to complete follow-up phone call after recent hospitalization. Phone number is not working, unable to leave message.
--- NOTE | 2018-05-23 08:35 | DS.PCM_ITS ---
Discharge Date and Diagnosis Date of Admission: 05/18/18 Date of Discharge: 05/20/18 - Primary Discharge Diagnosis #1 acute recurrent pancreatitis #2 hypokalemia #3 hypertension #4 chronic back pain - Secondary Discharge Diagnosis Chronic Problems Hypertension (Chronic) Chronic lower back pain (Chronic) Hospital Course and Treatment Operations: None Procedures: None Summary of Care Provided: The patient is a 57 year old M seen in the emergency room at [facility] with chief complaint of abdominal pain. Workup in the emergency room included labs which showed a mildly elevated lipase, white blood cell count was minimally elevated at 11.7, potassium was low at 3.3. Patient was admitted to [place] [address], he was given IV fluids, labs were monitored, and the patient was given pain medication as required for abdominal pain. Patient's potassium normalized and the following day his white count was normal. On 05/20/18, patient was seen and examined, he was felt to be in stable condition for discharge home. Patient was instructed to refrain from any alcohol intake. Physical exam: On examination he appeared in good health and spirits. Vital signs as documented. Skin warm and dry and without overt rashes. Neck without JVD. Lungs clear. Heart exam notable for regular rhythm, normal sounds and absence of murmurs, rubs or gallops. Abdomen unremarkable and without evidence of organomegaly, masses, or abdominal aortic enlargement. Extremities nonedematous. Neuro: Cranial nerves II through XII are grossly intact, no focal motor deficits were noted. Psych: Patient is alert and oriented x3, he does not appear to be depressed or anxious. - Physical Exam Vital Signs Temp Pulse Resp BP Pulse Ox 98.2 F 94 16 139/92 H 92 05/20/18 14:03 05/20/18 14:03 05/20/18 14:03 05/20/18 14:03 05/20/18 14:03 Oxygen Delivery Method Room Air Weight: 109.769 kg Body Mass Index (BMI) 28.7 Discharge Activity: Return to Normal Activity Weight Bearing Status: Full weight bearing Home Medications: Medications to take at Discharge Triamterene 37.5MG/Hctz 25MG [Maxzide 37.5 mg-25 mg Tablet] 1 tablet PO DAILY 12/12/13 Albuterol Sulfate [Ventolin Hfa] 2 puff INHALATION Q4H 05/18/18 Cyclobenzaprine [Flexeril] 10 mg PO TID PRN PRN 05/18/18 Prednisone 10 mg PO PRN PRN 05/18/18 Primary Care Physician: Linda Dominguez MD [Primary Care Provider] - Please follow up with your Primary Care Physician in: as directed Disposition: Home Minutes spent on discharge:: 32 Patient Condition:: Stable Medical Necessity - Tobacco Use Smoking Status: Former smoker Tobacco Use: Cigarettes Meaningful Use Info Meaningful Use Diagnoses (Choose all that apply): None applicable Code Visit Inpatient E&M: 01399 Disch Hosp
== END 2018-05-20 14:00 | disposition home or self-care (01) | DRG 440 ==
LOC: ED 15:21 → MS3 17:40
PROVIDERS: Admitting Provider Hospitalist; Emergency Provider Emergency Medicine; Family Provider Internal Medicine; PCP Internal Medicine; Visit Provider Internal Medicine
DX: K85.90 Acute pancreatitis without necrosis or infection, unspecified (principal); G89.29 Other chronic pain; M54.9 Dorsalgia, unspecified; E87.6 Hypokalemia; I10 Essential (primary) hypertension; Z87.891 Personal history of nicotine dependence
CPT/HCPCS: 36415; 74177; 80048; 80053; 80061; 83690; 85025; 93005; 97802; 99284; J7030; Q9967; A4216; J2405

== ENCOUNTER → 2018-10-26 14:33 | Outpatient (CLI) | payer MEDICARE, SELFPAY ==
--- NOTE | 2018-10-26 14:35 | RAD_ITS ---
STUDY: X-RAY - LEFT ELBOW REASON FOR EXAM: Male, 58 years old. Pain. TECHNIQUE: 3 view(s) of the elbow. COMPARISON: None. FINDINGS: Normal visualized humerus, radius and ulna. Normal radiocapitellar and ulnotrochlear articulations. The soft tissue structures are unremarkable. RAD/Elbow min 3 Views IMPRESSION: Normal x-ray examination of the elbow. Electronically Signed: Sourav Rodriguez, at 15:16 EDT , Service support ,
== END ==
PROVIDERS: Family Provider Internal Medicine; PCP Internal Medicine; Referring Provider Physician Assistant Surgical; Visit Provider Physician Assistant Surgical
DX: M77.8 Other enthesopathies, not elsewhere classified (principal)
CPT/HCPCS: 73080

== ENCOUNTER 2021-09-20 22:37 | Inpatient (IN) | payer MEDICARE, OTHER, SELFPAY ==
[2021-09-20 22:38] VITALS: BP 178/85; PULSE 138; RESP 22; TEMP 36.6; O2SAT 95; BMI 30.4
[2021-09-20 22:48] VITALS: BP 178/85; PULSE 97; RESP 22; TEMP 37; O2SAT 99
--- NOTE | 2021-09-20 22:52 | CT_ITS ---
STUDY: CT ABDOMEN AND PELVIS WITH CONTRAST REASON FOR EXAM: Male, 61 years old. RLQ Abdominal Pain RADIATION DOSAGE (If Supplied By Facility): CTDIvol = ( 17.54 ) mGy, DLP = ( 188.46 ) mGycm TECHNIQUE: Transaxial images 3.75 mm enhanced and delayed were obtained from the dome of the diaphragm to the symphysis pubis without oral contrast. IV 100mL Isovue-370 was administered. Sagittal and coronal images were reconstructed. Individualized dose optimization techniques were used for this CT. COMPARISON: CT abdomen and pelvis 05/18/2018. FINDINGS: Hyperinflation with mild emphysematous changes, nonspecific compression of dependent parenchyma without change. There is coronary artery calcification. Normal liver. Normal gallbladder and extrahepatic biliary system. Normal spleen. Stable accessory splenic tissue. There is diffuse atrophy of the pancreas. Stable 1.9 cm low-attenuation nodule in the right adrenal gland. Normal appearance of the left adrenal gland. A lobulated cyst in the right upper renal pole has increased in size to 3.7 x 4.8 cm previously 2.6 x 3.6 cm. Septation may be present. Additional simple appearing cyst in the posterior interpolar right kidney of 3.3 cm, posterior inferior exophytic cortex of 2.3 x 3.1 cm also increased in size. There are multiple subcentimeter low-attenuation changes within the left renal cortex, largest in the a.m. inferior cortex exophytic measures 1 cm, previously 0.6 cm. There is a left extrarenal pelvis and a small nonobstructing calculus in the left upper renal pole, new since previous exam. Normal left kidney. Normal visualized stomach. Inflammatory reaction of the duodenum adjacent to the acute pancreatitis. Mild reactive dilatation. Normal small intestine. The cecum is in the right mid/upper abdomen. There is marked inflammation of the appendix with dilatation of up to 1.3 cm, wall enhancement, indistinct contour and pockets of air within the wall and adjacent mesentery consistent with microperforation. There is stranding of the adjacent fat along the anterior pararenal space and adjacent to the duodenum. Mild inflammatory reaction of the terminal ileum. There is adjacent peripancreatic fluid may H 57 series 2 measuring 0.7 x 1.5 cm. Normal colon. Normal abdominal aorta. Normal inferior vena cava. Normal retroperitoneum. Stable left diverticula of the urinary bladder. Normal abdominal wall. Generalized osteoporosis, stable degenerative changes as well as postsurgical changes of the lumbar sacral spine with kyphosis at L2-3 level, depression of the superior endplate L1. CT/Abdomen/Pelvis W IV Cont ONLY IMPRESSION: Acute appendicitis with adjacent phlegmon, microperforation with pockets of air within the wall of the appendix and in the adjacent mesentery tissue. Inflammatory reaction of the adjacent duodenum. No evidence off pancreatitis. Peripancreatic fluid, no wall enhancement to suggest formed abscess formation. Bilateral renal cyst, slightly increased in size, one of which is lobulated and possible septated/complex. Pancreas involution, right adrenal nodule, osseous and postsurgical changes felt to be not acute findings. N.B. : The above Results were Read Back by Anny Barnes MD to Dr Garcia , AA, and understanding confirmed on 09/21/2021 01:13:01 (ET). Electronically Signed: Anny Barnes MD at 1:14 EST Reading Location ID and State: , Service support ,
--- NOTE | 2021-09-20 22:53 | EDS_ITS ---
HPI HPI - GI History of Present Illness Chief Complaint: Abd Pain Narrative Narrative: Patient with past medical history of essential tremor, pancreatitis, hypertension, and chronic low back pain presents with 3 days worth of right lower quadrant abdominal pain. He states he began having pain accompanied by nausea, vomiting, and diarrhea. In the last 24 hours he has had multiple episodes of bilious vomiting/nonbloody. He is also had multiple stooling episod es without any blood in his stool. He denies any exacerbating or alleviating symptoms to his right lower quadrant abdominal pain. He has not had any abdominal surgeries but has had surgeries on his low back. He presents because of the pain and continued nausea and vomiting and diarrhea. He denies other symptoms except intermittent subjective fever. [facility] Medical History (Updated 09/21/21 @ 01:23 by Beka Garcia MD) Anemia Arthritis Difficulty balancing Hypertension Limb weakness MRSA (methicillin resistant staph aureus) culture positive neck/back pain Shoulder pain Home Medications triamterene-hydrochlorothiazid 1 tab PO DAILY 12/12/13 [History Last Taken 05/18/18] Allergy/AdvReac Type Severity Reaction Status Date / Time acetaminophen AdvReac Nausea/Vom/ Verified 09/20/21 22:47 Diarrhea fentanyl [From Duragesic] AdvReac Nausea/Vom/ Verified 09/20/21 22:47 Diarrhea metoclopramide HCl AdvReac anxiety Verified 09/20/21 22:47 [From Reglan] nabumetone [From Relafen] AdvReac Nausea/Vom/ Verified 09/20/21 22:47 Diarrhea Family History Father Cancer Mother Parkinson disease Surgical History History of hernia repair Previous back surgery Social History Smoking Status: Former smoker alcohol intake: never ROS ROS ED ROS Narrative Constitutional: Intermittent fever, no chills. HEENT: No sore throat. No neck pain. No loss of vision. No rhinorrhea. Cardiovascular: No chest pain. No palpitations. No pedal edema. Respiratory: No cough, no shortness of breath. Abdominal: Right lower quadrant abdominal pain. Positive nausea. Multiple episodes of bilious vomiting. Multiple episodes of loose stool/diarrhea Genitourinary: No dysuria. No hematuria. Musculoskeletal: No myalgias. No arthralgias. Neurologic: No headaches. No dizziness. No lightheadedness. Skin: No rash. No change in color. Psychiatric: No depression. No anxiety. EXAM Physical Exam Narrative Exam Narrative: Afebrile. Vital signs noted. HEENT: Normocephalic. Atraumatic. PERRL, EOMI. Neck soft and supple. No point tenderness or step off. Cardiovascular: Regular rate and rhythm. No murmurs, rubs, or gallops appreciated. Respiratory: No tachypnea. Lungs clear to auscultation bilaterally. Gastrointestinal: Abdomen soft, tenderness to palpation in right lower quadrant, with normoactive bowel sounds. No rebound or guarding. Neurological: Awake. Alert. Nonfocal, nonlateralizing. Skin: No rash. Normal color. No pallor. Musculoskeletal: No pedal edema. Full range of motion extremities. Const Vital Signs: 09/20/21 22:38 09/20/21 22:47 09/20/21 22:48 Temperature 98 F 98.6 F Temperature Source Temporal Oral Pulse Rate 138 H 97 Respiratory Rate 22 H 22 H Blood Pressure 178/85 H 178/85 H Blood Pressure Mean 116 116 Pulse Ox 95 99 Oxygen Delivery Method Room Air Room Air Room Air Oxygen Flow Rate (L/min) 09/20/21 23:46 09/21/21 00:37 09/21/21 01:06 Temperature 98.9 F 98.9 F 98.9 F Temperature Source Oral Oral Oral Pulse Rate 111 H 104 H 110 H Respiratory Rate 18 20 H 19 H Blood Pressure 138/88 H 148/96 H 150/95 H Blood Pressure Mean 104 113 113 Pulse Ox 93 95 95 Oxygen Delivery Method Room Air Nasal Cannula Nasal Cannula Oxygen Flow Rate (L/min) 2 2 MDM MDM MDM Narrative Medical decision making narrative: Comprehensive work-up was pursued. Concern is for diverticulitis versus appendicitis. He was bolused normal saline administered morphine and ondansetron. I will obtain a CT of the abdomen and pelvis with IV contrast and basic lab work including CBC, CMP, lipase, and urinalysis. Repeat examination shows his abdomen remains soft. His pain is improved but he does have mild tenderness in the right lower quadrant, no guarding or rebound. WBC count elevated 19.8. Hemoglobin normal at 16.5. Platelet count normal at 204. Sodium slightly low 135, potassium normal at 3.5. BUN is elevated at 20 with a creatinine of 1.02. Although glucose is elevated at 177, he has a normal anion gap of 11. AST slightly elevated at 58, ALT and alk phos are normal. Lipase is normal at 73. CT of the abdomen and pelvis with IV contrast shows an acute appendicitis with microperforation. It is higher in the abdomen causing inflammation around the duodenum according to radiology. He was made n.p.o., and started on Zosyn. I discussed the patient with Dr. Taveras who will admit him to [facility] and take him to the operating room. Covid swab is pending. His abdomen remains soft. His urinalysis did show 150/greater than 150 ketones. He had been bolused normal saline. Disposition is admit in stable condition. Lab Data Attestation: I reviewed the patient's lab results. Labs: Laboratory Results - last 24 hr 09/20/21 09/20/21 09/21/21 22:50 22:50 00:20 WBC 19.8 H RBC 5.06 Hgb 16.5 Hct 46.8 MCV 92.5 MCH 32.6 H MCHC 35.3 RDW Std Deviation 43.3 RDW Coeff of Ar 12.7 Plt Count 204 MPV 10.5 Immature Gran % (Auto) 1.600 H Neut % (Auto) 86.5 H Lymph % (Auto) 4.7 L [place] % (Auto) 6.5 Eos % (Auto) 0.4 Baso % (Auto) 0.3 Absolute Neuts (auto) 17.1 H Absolute Lymphs (auto) 0.93 Nucleated RBC % 0 Sodium 135 L Potassium 3.5 Chloride 103 Carbon Dioxide 21.0 Anion Gap 11 BUN 20 H Creatinine 1.02 Estim Creat Clear Calc 92.19 Est GFR (MDRD) Af Amer 95 Est GFR (MDRD) Non-Af 79 BUN/Creatinine Ratio 19.6 Glucose 177 H Calcium 9.0 Total Bilirubin 0.90 AST 58 H ALT 28 Alkaline Phosphatase 75 Total Protein 7.4 Albumin 3.5 Globulin 3.9 Albumin/Globulin Ratio 0.9 Lipase 73 Urine Color Sunita Urine Clarity Clear Urine pH 6.5 Ur Specific [place] 1.020 Urine Protein 500 H Urine Glucose (UA) Normal Urine Ketones 150 A* Urine Occult Blood 250 H Urine Nitrite Negative Urine Bilirubin 1 H Urine Urobilinogen 1 H Ur Leukocyte Esterase 25 H Urine RBC 5-10 SEEN Urine WBC 0-5 SEEN Ur Squamous Epith Cells 0 SEEN Urine Bacteria 1+ Urine Mucus 0 SEEN Radiography Diagnostic Testing: Clinical Impression(s) from Imaging Studies Abdomen/Pelvis CT 09/20/21 22:52 IMPRESSION: Acute appendicitis with adjacent phlegmon, microperforation with pockets of air within the wall of the appendix and in the adjacent mesentery tissue. Inflammatory reaction of the adjacent duodenum. No evidence off pancreatitis. Peripancreatic fluid, no wall enhancement to suggest formed abscess formation. Bilateral renal cyst, slightly increased in size, one of which is lobulated and possible septated/complex. Pancreas involution, right adrenal nodule, osseous and postsurgical changes felt to be not acute findings. N.B. : The above Results were Read Back by Anny Barnes MD to ABDULLAHI Beltran, and understanding confirmed on 09/21/2021 01:13:01 (ET). Electronically Signed: Anny Barnes MD at 1:14 EST , ADDENDUM: 09/21/21 0121 IMPRESSION: Acute appendicitis with adjacent phlegmon, microperforation with pockets of air within the wall of the appendix and in the adjacent mesentery tissue. Inflammatory reaction of the adjacent duodenum. No evidence off pancreatitis. Peripancreatic fluid, no wall enhancement to suggest formed abscess formation. Bilateral renal cyst, slightly increased in size, one of which is lobulated and possible septated/complex. Pancreas involution, right adrenal nodule, osseous and postsurgical changes felt to be not acute findings. N.B. : The above Results were Read Back by Anny Barnes MD to ABDULLAHI Beltran, and understanding confirmed on 09/21/2021 01:13:01 (ET). Electronically Signed: Anny Barnes MD at 1:14 EST , Discharge Plan Dx/Rx/DC Orders Clinical Impression: Appendicitis with perforation, Dehydration Disposition Disposition: Acute Care Hospital [facility]
[2021-09-20] MEDS: Ondansetron 4 MG/2 ML Vial IV (23:00)
[2021-09-20] MEDS: Morphine 4 MG/ML Syringe IV (23:00)
[2021-09-20] MEDS: 0.9% Normal Saline 1,000 ML 1000 ML IV (23:04)
[2021-09-20 23:20] LABS: ALB/GLOB Ratio 0.9 RATIO (0.9-2.4); AST(SGOT) 58 U/L (15-37); Alanine Aminotransfer ALT/SGPT 28 U/L (16-61); Albumin, Serum 3.5 g/dL (3.2-5.0); Alkaline Phosphatase 75 U/L (45-117); Anion Gap 11 (5-15); BUN 20 mg/dL (7-18); BUN/Creat Ratio 19.6 RATIO (10-20); Chloride 103 mmol/L (98-107); Creatinine, Serum 1.02 mg/dL (0.70-1.30); EST Glomerular Filtration Rate 79 mL/min (>60); Est Glom Filt Rate - Afr Amer 95 mL/min (>60); Estimated Creatinine Clearance 92.19 ml/min; Globulin 3.9 g/dL (2.2-4.2); Glucose 177 mg/dL (74-106); Lipase 73 U/L (73-393); Potassium 3.5 mmol/L (3.5-5.1); Protein, Total 7.4 g/dL (6.4-8.2); Sodium Level 135 mmol/L (136-145)
[2021-09-20 23:22] LABS: Absolute Lymphocyte Count 0.93 X10^3/uL (0.83-4.51); Absolute Neutrophil Count 17.1 X10^3/uL (2.0-7.7); Basophil# 0.05 X10^3/uL; Basophil% 0.3 % (0-1); Eosinophil# 0.08 X10^3/uL; Eosinophils% 0.4 % (0-5); Hematocrit 46.8 % (40-54); Hemoglobin 16.5 g/dL (13.0-16.5); Lymphocyte # 0.93 X10^3/ul (0.83-4.51); Lymphocyte % 4.7 % (19-41); Mean Corp Hgb Conc 35.3 g/dL (32-36); Mean Corpuscular Hgb 32.6 pg (27.0-32.0); Mean Corpuscular Volume 92.5 fL (80-94); Mean Platelet Vol. 10.5 fl (6.2-12.0); Monocyte# 1.29 X10^3/uL; Monocyte% 6.5 % (0-10); NRBC Flagged by Analyzer 0 % (0-5); Neutrophil # 17.08 X10^3/uL (2.7-7.7); Neutrophil % 86.5 % (47-70); Platelet Count 204 K/mm3 (150-450); RBC Distribution Width CV 12.7 % (11.6-14.6); RBC Distribution Width SD 43.3 fl (35.1-43.9); Red Blood Count 5.06 M/mm3 (4.6-6.2); White Blood Count 19.8 K/mm3 (4.4-11.0)
[2021-09-20 23:46] VITALS: BP 138/88; PULSE 111; RESP 18; TEMP 37.2; O2SAT 93
[2021-09-21] VITALS (23 sets, daily range): BP systolic 107–164; BP diastolic 68–99; PULSE 78–110; RESP 16–20; TEMP 36.1–37.2; O2SAT 89–97; BMI 28.3
--- NOTE | 2021-09-21 | APP_PTH ---
PATIENT: OLGA SANTOYO LOC: MS3 U#:[id number] AGE/SX: 61/M ROOM: OR320 RE09/21/[address]: Dr. Nathan Taveras MD : 1960 BED: 1 DIS: 10/23/2021 SPEC #: [id number] RECD: 09/23/21 08:16 STATUS: MEHDI MARCELO #: [id number] LOR: 09/21/21 00:[address]: Nathan Taveras DEPT: SURGICAL PATHOLOGY RECD BY: Derek Owen ENTERED: 09/23/21 11:11 SP TYPE: APPENDIX OTHR DR: Dr. Linda Dominguez MD Tissues: A - Appendix, NOS B - Small intestine biopsy Procedures: Surgery Specimen Level IV HEADER OPERATION: Laparoscopic appendectomy PRE-OP DIAGNOSIS: Appendicitis with perforation TISSUE SUBMITTED: A ? Appendix, B ? Small bowel diverticulum MICROSCOPIC DIAGNOSIS A. Appendix, appendectomy: Mature adipose tissue with acute inflammation and vascular congestion. See comment. B. Small bowel diverticulum, biopsy: Mature fibrofatty tissue with recent hemorrhage. See comment. AM:chloe 09/24/2021 COMMENT A. An appendix is not present. B. A small bowel diverticulum is not identified. Clinical correlation is suggested. This case is discussed with Dr. Taveras by Dr Landeros 09/24/21. Case has been reviewed in consultation with Dr. Sierra who concurs with the above diagnosis. [id number] MICROSCOPIC DESCRIPTION Slides are reviewed. GROSS DESCRIPTION A - Received in fixative is one container labeled with the patient's name and designated appendix. The specimen consists of an elongated piece of adipose tissue measuring 6.5 x 1 x 0.3 cm. No obvious appendix grossly is noted. One end is stapled. A portion of the specimen opposite to staple and is elongated and sectioned. The rest of the specimen is transversely sectioned. The most proximal portion and is inked black. The entire specimen is submitted in three cassettes. Cassette 1 contains the specimen closer to stapled portion. Cassette 3 contains the opposite end. B - Received in fixative is one container labeled with the patient's name and designated small bowel diverticulum. The specimen consists of a piece of soft tissue measuring 1.5 x 0.5 x 0.2 cm. Multiple alena are noted. The entire specimen except the stapled portion is submitted in one cassette. / SJ:rg 09/23/2021 TC:2 CPT: 21548 x2
[2021-09-21 00:27] LABS: Mucous, Urine 0 SEEN /hpf (<or=2+); Squamous Epithelial Cells - UA 0 SEEN /hpf (0-5)
[2021-09-21 00:48] LABS: Color, Urine Amber (Yellow); Glucose, Dipstick Normal (Normal); Leukocyte Esterase-Dipstick 25 /ul (Negative); Nitrite-Dipstick Negative (Negative); Occult Blood-Urine 250 /ul (Negative); Protein-Dipstick 500 mg/dl (Negative); Urine Clarity Clear (Clear); Urine Urobilinogen 1 mg/dl (Normal); Urine pH 6.5 (5.0 - 8.0)
[2021-09-21 00:50] LABS: Urine Bilirubin Dipstick 1 mg/dL (Negative)
[2021-09-21 00:51] LABS: Ketone-Dipstick 150 mg/dl (Negative)
[2021-09-21 00:53] LABS: Bacteria 1+ /hpf (None Seen); Red Blood Cells-Urine 5-10 SEEN /hpf (0-5); White Blood Cells 0-5 SEEN /hpf (0-5)
[2021-09-21] MEDS: Morphine 4 MG/ML Syringe IV ×4 (01:40→18:41)
[2021-09-21] MEDS: Ondansetron 4 MG/2 ML Vial IV ×2 (02:05→06:41)
--- NOTE | 2021-09-21 02:23 | HP.PCM_ITS ---
HPI - General General Date of Admission: 09/21/21 HPI Narrative OLGA SANTOYO, is a 61 M who presents to [facility] with a 3-day history of acute?onset right lower quadrant abdominal pain and associated nausea, vomiting, and diarrhea. Patient states that he thinks he has had some low-grade fevers at home as well. He states he has not been able to eat well through this discomfort. ER work-up is notable for CBC demonstrating a leukocytosis of 19.[address] imaging unremarkable for evidence of acute appendicitis with probable microperforation given air within the appendix wall. Patient has a history of prior ventral hernia repair with mesh. He also has a complex spine surgery history that was complicated by MRSA infection. Lastly, and most recently, the patient has a history of pancreatitis with his last episode coming in 2017. [facility] Medical History (Updated 09/21/21 @ 01:23 by Beka Garcia MD) Anemia Arthritis Difficulty balancing Hypertension Limb weakness MRSA (methicillin resistant staph aureus) culture positive neck/back pain Shoulder pain Home Medications triamterene-hydrochlorothiazid 1 tab PO DAILY 12/12/13 [History Last Taken 05/18/18] Allergy/AdvReac Type Severity Reaction Status Date / Time acetaminophen AdvReac Nausea/Vom/ Verified 09/20/21 22:47 Diarrhea fentanyl [From Duragesic] AdvReac Nausea/Vom/ Verified 09/20/21 22:47 Diarrhea metoclopramide HCl AdvReac anxiety Verified 09/20/21 22:47 [From Reglan] nabumetone [From Relafen] AdvReac Nausea/Vom/ Verified 09/20/21 22:47 Diarrhea Family History Father Cancer Mother Parkinson disease Surgical History History of hernia repair Previous back surgery Social History Smoking Status: Former smoker alcohol intake: never Vital Signs Vital Signs Vital Signs: 09/20/21 22:38 09/20/21 22:47 09/20/21 22:48 Temperature 98 F 98.6 F Temperature Source Temporal Oral Pulse Rate 138 H 97 Respiratory Rate 22 H 22 H Blood Pressure 178/85 H 178/85 H Blood Pressure Mean 116 116 Pulse Ox 95 99 Oxygen Delivery Method Room Air Room Air Room Air Oxygen Flow Rate (L/min) 09/20/21 23:46 09/21/21 00:37 09/21/21 01:06 Temperature 98.9 F 98.9 F 98.9 F Temperature Source Oral Oral Oral Pulse Rate 111 H 104 H 110 H Respiratory Rate 18 20 H 19 H Blood Pressure 138/88 H 148/96 H 150/95 H Blood Pressure Mean 104 113 113 Pulse Ox 93 95 95 Oxygen Delivery Method Room Air Nasal Cannula Nasal Cannula Oxygen Flow Rate (L/min) 2 2 09/21/21 01:47 09/21/21 02:01 Temperature 98.9 F 98.7 F Temperature Source Oral Oral Pulse Rate 94 110 H Respiratory Rate 16 18 Blood Pressure 137/94 H 129/90 H Blood Pressure Mean 108 103 Pulse Ox 95 95 Oxygen Delivery Method Nasal Cannula Nasal Cannula Oxygen Flow Rate (L/min) 2 2 Weight Weight: 250 lb Body Mass Index (BMI) 30.4 Physical Exam Const alert and oriented x3 General Appearance: cooperative Resp normal respiratory effort Effort and Inspection: Negative for respiratory distress GI GI Narrative: Patient with midline laparotomy scar, right lower quadrant oblique scar (he states this was used for lower lumbar fusion) and left lower quadrant vertical scar now well-healed. Patient has tenderness in the right lower quadrant with palpation. Positive obturator positive psoas Results Lab / Micro Data Result Diagrams: 09/20/21 22:50 09/20/21 22:50 Labs: Laboratory Results - last 24 hr 09/20/21 22:50: WBC 19.8 H, RBC 5.06, Hgb 16.5, Hct 46.8, MCV 92.5, MCH 32.6 H, MCHC 35.3, RDW Std Deviation 43.3, RDW Coeff of Ar 12.7, Plt Count 204, MPV 10.5, Immature Gran % (Auto) 1.600 H, Neut % (Auto) 86.5 H, Lymph % (Auto) 4.7 L , [place] % (Auto) 6.5, Eos % (Auto) 0.4, Baso % (Auto) 0.3, Absolute Neuts (auto) 17.1 H, Absolute Lymphs (auto) 0.93, Nucleated RBC % 0 09/20/21 22:50: Sodium 135 L, Potassium 3.5, Chloride 103, Carbon Dioxide 21.0, Anion Gap 11, BUN 20 H, Creatinine 1.02, Estim Creat Clear Calc 92.19, Est GFR (MDRD) Af Amer 95, Est GFR (MDRD) Non-Af 79, BUN/Creatinine Ratio 19.6, Glucose 177 H, Calcium 9.0, Total Bilirubin 0.90, AST 58 H, ALT 28, Alkaline Phosphatase 75, Total Protein 7.4, Albumin 3.5, Globulin 3.9, Albumin/Globulin Ratio 0.9, Lipase 73 09/21/21 00:20: Urine Color Sunita, Urine Clarity Clear, Urine pH 6.5, Ur Specific [place] 1.020, Urine Protein 500 H, Urine Glucose (UA) Normal, Urine Ketones 150 A*, Urine Occult Blood 250 H, Urine Nitrite Negative, Urine Bilirubin 1 H, Urine Urobilinogen 1 H, Ur Leukocyte Esterase 25 H, Urine RBC 5- 10 SEEN, Urine WBC 0-5 SEEN, Ur Squamous Epith Cells 0 SEEN, Urine Bacteria 1+, Urine Mucus 0 SEEN Micro: Microbiology 09/21/21 01:18 Nasal Secretion SARS-CoV-2 Antigen (Rapid) - Final Radiology Impression Abdomen/Pelvis CT 09/20/21 22:52 IMPRESSION: Acute appendicitis with adjacent phlegmon, microperforation with pockets of air within the wall of the appendix and in the adjacent mesentery tissue. Inflammatory reaction of the adjacent duodenum. No evidence off pancreatitis. Peripancreatic fluid, no wall enhancement to suggest formed abscess formation. Bilateral renal cyst, slightly increased in size, one of which is lobulated and possible septated/complex. Pancreas involution, right adrenal nodule, osseous and postsurgical changes felt to be not acute findings. N.B. : The above Results were Read Back by Anny Barnes MD to ABDULLAHI Beltran, and understanding confirmed on 09/21/2021 01:13:01 (ET). Electronically Signed: Anny Barnes MD at 1:14 EST Reading Location ID and State: , Service support , ADDENDUM: 09/21/21 0121 IMPRESSION: Acute appendicitis with adjacent phlegmon, microperforation with pockets of air within the wall of the appendix and in the adjacent mesentery tissue. Inflammatory reaction of the adjacent duodenum. No evidence off pancreatitis. Peripancreatic fluid, no wall enhancement to suggest formed abscess formation. Bilateral renal cyst, slightly increased in size, one of which is lobulated and possible septated/complex. Pancreas involution, right adrenal nodule, osseous and postsurgical changes felt to be not acute findings. N.B. : The above Results were Read Back by Anny Barnes MD to ABDULLAHI Beltran, and understanding confirmed on 09/21/2021 01:13:01 (ET). Electronically Signed: Anny Barnes MD at 1:14 EST Reading Location ID and State: , Service support , Assessment & Plan Assessment/Plan (1) Appendicitis with perforation: PLAN: This is a 61-year-old male who presents with 3-day history of acute onset abdominal pain and associated symptoms of nausea vomiting and diarrhea where CT evidence points to likely acute appendicitis with perforation. Patient has not had improvement of his symptoms with administration of pain medications in the ER, but remains mildly tachycardic. Per CT imaging, the patient's appendix peers to be in an entirely retrocecal position. Combining this with its likely perforated status and has prior history of ventral hernia repair with mesh, I have informed him that this is likely to be a more technically challenging operation. Also, given the likely perforation, a drain placement may be necessary and a postoperative ileus may be anticipated. IV fluids and IV antibiotics have already initiated by emergency medicine. We will plan for urgent laparoscopic appendectomy later this morning and admission with ongoing IV fluids/antibiotics for now.
[2021-09-21] MEDS: 0.9% Normal Saline 1,000 ML 125 ML IV ×3 (03:08→18:41)
[2021-09-21] MEDS: HYDROmorphone 0.5 MG/0.5 ML SYRINGE IV (03:16)
--- NOTE | 2021-09-21 05:00 | EKG12_ITS ---
Test Reason : PREOP Blood Pressure : / mmHG Vent. Rate : 100 BPM Atrial Rate : 100 BPM P-R Int : 148 ms QRS Dur : 142 ms QT Int : 386 ms P-R-T Axes : 027 024 -06 degrees QTc Int : 497 ms Normal sinus rhythm Right bundle branch block Abnormal ECG When compared with ECG of 21-SEP-2021 05:12, No significant change was found Confirmed by TESS MITCHELL, JOSE ([id number]), web editor SHAHIDA ESCOBAR ([id number]) on 10/01/2021 11:27:34 AM Referred By: FATMATA Confirmed By:JOSE PULIDO MD
[2021-09-21] MEDS: 0.9% Saline Lock 10 ML Syringe IV ×3 (06:41→18:41)
[2021-09-21] MEDS: Bupivacaine Mpf 0.5% 30 ML VIAL (07:58)
--- NOTE | 2021-09-21 09:29 | PCM.OPRPT ---
Problems Associated Problem List Diagnoses (1) Appendicitis with perforation: (2) Diverticulum of small intestine: Report of Operation Date of Procedure: 09/21/21 Pre-Operative Diagnosis: 1. Acute appendicitis with imaging evidence of microperforation Post-Operative Diagnosis: 1. Acute appendicitis with imaging evidence of microperforation 2. Small bowel diverticulum 10 cm of the ileocecal junction Surgery/Procedure Performed:: 1. Laparoscopic appendectomy 2. Stable small bowel diverticulectomy Description of Surgical Findings:: ?Acutely inflamed appendix with purulent fluid ?Tubular structure along the antimesenteric border of the terminal ileum approximately 10 cm from the ileocecal junction representing small bowel diverticulum Surgeon: Nathan Taveras clinical sales consultant: Julio Larson Type of Anesthesia: General/Supplemental Anesthesiologist: Maria M Bright Specimen's removed: Appendix and small bowel diverticulum Drains: 19Fr Round Estimated Blood Loss (mL): 10 Description of Procedure: After appropriate identification in the preoperative holding area, the patient was brought to the operating room and placed supine on the operating room table. Antibiotics had been preoperatively administered but were redosed during the case given that it had been 6 hours since first administration. Patient was then induced with general endotracheal anesthetic. The abdomen was prepped and draped in usual sterile fashion. Formal timeout was conducted to confirm both the patient and the procedure. A supraumbilical incision was made and carried down to the level of the fascia which was sharply opened. This layer proved to be very attenuated and actually tore when spreading with a hemostat. A finger sweep was made to confirm position, and a balloon trocar was placed and pneumoperitoneum was established to 15 mmHg. Patient was positioned in Trendelenburg with the left side down. Laparoscopic investigation revealed that the underside of the anterior abdominal wall was free of adhesions. 2 additional 5 mm trocars were placed in the left lower quadrant and suprapubic positions. The peritoneum was inspected and there are no signs of inadvertent injury from this [place] entry. The appendix was not immediately visualized but once the small bowel was swept out of the right lower quadrant the appendix was visualized with surrounding purulent fluid and injected appearance. The base and the tip of the appendix were able to be distinguished and the tip was fairly densely adherent against the exterior side of the cecum. Therefore, I carefully used the harmonic scalpel to divide the mesoappendix in a retrograde fashion adjacent to the appendiceal base. Then the base of the appendix was sealed and amputated with the use of an Endo JIAN stapler. The appendix was placed in an Endo Catch bag. The staple line was inspected for hemostasis. As I continued this inspection, there was an additional diverticular structure along the antimesenteric border of the terminal ileum approximately 10-15 cm from the ileocecal junction. This clearly terminated in the ileum and represented a small bowel diverticulum- potentially a Meckel's diverticulum. Given the mildly inflamed appearance and desire to mitigate the patient's risk for future complication from this finding, I performed a limited blunt dissection to define the antimesenteric border of the ileum and then serially stapled the diverticulum with 2 x 45 mm blue loads from the Endo JIAN stapler. The specimen, also, was placed in a Endo Catch bag. After hemostasis was confirmed the appendix was removed from the umbilical port site. Purulent fluid in the right paracolic gutter in the pelvis was suctioned free of the peritoneum. In an effort to more fully eradicate any contamination from her surgical site, I placed a 19 [place] round KELLY drain along the right paracolic gutter and brought the tubing out through the patient's supraumbilical port site. This was secured to the skin with a 3-0 nylon stitch. Pneumoperitoneum was then evacuated and the supraumbilical port site fascia was closed with #1 PDS in a [id number] fashion. The port sites were infiltrated with 10 mL local anesthetic. The skin of each port site was closed with 4-0 Monocryl in a subcuticular fashion. Steri-Strips and OpSite dressings were applied. Patient tolerated procedure well without any apparent complications. They were awoken from general anesthetic without issue and transferred to post anesthesia care unit for ongoing recovery. Complications None Admit VTE Documentation VTE Mechan Device Prophylaxis: SCD's
--- NOTE | 2021-09-21 13:00 | CASEMGMT ---
RN KELBY Face to Face with patient for initial transition planning/care coordination assessment. RN CM introduced self and role at [facility]. Patient lying in bed, alert and oriented. Patient willing to participate in assessment and is able to answer all questions appropriately. Care providers, pharmacy, and demographics verified. Patient wishes to discharge home, denies need for home health at this time. Patient states he has no further needs or concerns at this time. CM to follow for discharge planning needs that may arise. PCP: Angelica Specialists: none Preferred Pharmacy: [facility] Insurance: [facility] Prescription Benefit: yes Living Will/HPOA: none LNOK: Living Arrangements: Patient lives with in a 1st floor apartment with 1 step and grab bar to enter the home. Patient states he is independent at home. Transportation: self, DME/HHC: patient has bulit in shower chair, cane, wheelchair, scooter, and grab bars at home. No previous HHC or SNF. Disposition Plan: Patient to discharge home with family support and follow-up plans in place. Kayla MEANS, RN, CM
[2021-09-21] MEDS: Pramipexole Di-HCl 0.5 MG Tablet PO (21:54)
[2021-09-22] VITALS (15 sets, daily range): BP systolic 117–135; BP diastolic 62–83; PULSE 70–92; RESP 16–18; TEMP 36.4–36.6; O2SAT 86–96; BMI 28.3
[2021-09-22] MEDS: Morphine 4 MG/ML Syringe IV ×3 (01:48→08:03)
[2021-09-22] MEDS: 0.9% Saline Lock 10 ML Syringe IV ×2 (01:48→08:03)
[2021-09-22] MEDS: 0.9% Normal Saline 1,000 ML 125 ML IV ×3 (02:27→18:39)
[2021-09-22 06:52] LABS: Absolute Lymphocyte Count 0.79 X10^3/uL (0.83-4.51); Absolute Neutrophil Count 12.5 X10^3/uL (2.0-7.7); Basophil# 0.02 X10^3/uL; Basophil% 0.1 % (0-1); Hematocrit 40.6 % (40-54); Hemoglobin 14.1 g/dL (13.0-16.5); Lymphocyte # 0.79 X10^3/ul (0.83-4.51); Lymphocyte % 5.6 % (19-41); Mean Corp Hgb Conc 34.7 g/dL (32-36); Mean Corpuscular Hgb 33.2 pg (27.0-32.0); Mean Corpuscular Volume 95.5 fL (80-94); Mean Platelet Vol. 10.5 fl (6.2-12.0); Monocyte# 0.79 X10^3/uL; Monocyte% 5.6 % (0-10); NRBC Flagged by Analyzer 0 % (0-5); Neutrophil % 88.1 % (47-70); Platelet Count 167 K/mm3 (150-450); RBC Distribution Width CV 13.2 % (11.6-14.6); RBC Distribution Width SD 46.5 fl (35.1-43.9); Red Blood Count 4.25 M/mm3 (4.6-6.2); White Blood Count 14.2 K/mm3 (4.4-11.0)
[2021-09-22 07:41] LABS: Anion Gap 5 (5-15); BUN 16 mg/dL (7-18); BUN/Creat Ratio 23.3 RATIO (10-20); Calcium,Total 7.7 mg/dL (8.5-10.1); Chloride 108 mmol/L (98-107); Creatinine, Serum 0.69 mg/dL (0.70-1.30); EST Glomerular Filtration Rate 124 mL/min (>60); Est Glom Filt Rate - Afr Amer 150 mL/min (>60); Estimated Creatinine Clearance 136.28 ml/min; Glucose 108 mg/dL (74-106); Phosphorus 2.1 mg/dL (2.5-4.9); Potassium 3.7 mmol/L (3.5-5.1); Sodium Level 139 mmol/L (136-145)
[2021-09-22] MEDS: Ondansetron 4 MG/2 ML Vial IV (08:03)
--- NOTE | 2021-09-22 09:46 | PN.SURG_ITS ---
Subjective Subjective Patient seen and examined during AM rounds. He reports no acute events overnight. Nursing states the patient has complained of gas pains and has encouraged the use of warm blankets. Patient is passing flatus but has not had a bowel movement. Objective Data Objective Data Vital Signs: Vital Signs Temp Pulse Resp BP Pulse Ox 97.9 F 86 18 121/83 H 94 09/22/21 07:58 09/22/21 07:58 09/22/21 07:58 09/22/21 07:58 09/22/21 09:38 Oxygen Flow Rate (L/min) 2 Oxygen Delivery Method Nasal Cannula Weight: 232 lb 2.348 oz Body Mass Index (BMI) 28.3 Intake & Output: Intake and Output for Last 24 Hours 09/20/21 09/21/21 09/22/21 23:59 23:59 23:59 Intake Total 3870.83 / 3870.83 1962.50 / 1962.50 Output Total 1010 / 1260 950 / 950 Balance 2860.83 / 2610.83 1012.50 / 1012.50 Lab / Micro Data Result Diagrams: 09/22/21 06:07 09/22/21 06:07 Labs: Laboratory Results - last 24 hr 09/22/21 06:07: WBC 14.2 H, RBC 4.25 L, Hgb 14.1, Hct 40.6, MCV 95.5 H, MCH 33.2 H, MCHC 34.7, RDW Std Deviation 46.5 H, RDW Coeff of Ar 13.2, Plt Count 167, MPV 10.5, Immature Gran % (Auto) 0.600, Neut % (Auto) 88.1 H, Lymph % (Auto) 5.6 L, [place] % (Auto) 5.6, Eos % (Auto) 0.0, Baso % (Auto) 0.1, Absolute Neuts (auto) 12.5 H, Absolute Lymphs (auto) 0.79 L, Nucleated RBC % 0 09/22/21 06:07: Sodium 139, Potassium 3.7, Chloride 108 H, Carbon Dioxide 26.0, Anion Gap 5, BUN 16, Creatinine 0.69 L, Estim Creat Clear Calc 136.28, Est GFR (MDRD) Af Amer 150, Est GFR (MDRD) Non-Af 124, BUN/Creatinine Ratio 23.3 H, G lucose 108 H, Calcium 7.7 L, Phosphorus 2.1 L, Magnesium 2.0 Micro: Microbiology 09/21/21 01:18 Nasal Secretion SARS-CoV-2 Antigen (Rapid) - Final Physical Exam Const no apparent distress Resp normal respiratory effort Resp Narrative: Nasal cannula in place GI GI Narrative: Mildly distended, soft, Incisions are covered with operative dressings without signs of drainage or periincisional erythema. Drain site in the suprapubic position with drain draining primarily thin tainted red fluid.Patient's abdomen is tender to palpation in the right upper and right lower quadrants, but predominantly in the right upper quadrant. Assessment & Plan Assessment/Plan (1) S/P laparoscopic appendectomy: PLAN: Patient postoperative day 1 from laparoscopic appendectomy as well as resection of small bowel diverticulum. He is recovering next expected with return of bowel function. White count is downtrending appropriately. Patient's primary complaint is for abdominal pain which seems to be more gas related to an incisional or surgical. Neuro: As needed morphine, add as needed oxycodone, as needed ibuprofen Pulm/CV: Supplemental O2 as needed but work to wean, Diuresing today with 20 mg IV Lasix x1,telemetry FEN/GI:Trend BMP and mag given diuresis, advance to soft diet Heme/ID: Trend CBC, continue IV antibiotics until patient tolerating regular diet, then will transition to p.o. Endo: No current issues Proph: SCDs, Ambulate as tolerated, PT evaluation requested Dispo:Continue inpatient care (2) Appendicitis with perforation: (3) Diverticulum of small intestine: Charges/Coding Visit Charges Inpatient E&M: 85988 Subs Hosp L2
[2021-09-22] MEDS: oxyCODONE 5 MG Tablet PO ×2 (11:05→22:50)
[2021-09-22] MEDS: Furosemide 20 MG/2 ML VIAL IV (11:05)
[2021-09-22] MEDS: Ibuprofen 600 MG Tablet PO (11:05)
[2021-09-22] MEDS: Pramipexole Di-HCl 0.5 MG Tablet PO (22:37)
[2021-09-23] VITALS (12 sets, daily range): BP systolic 113–151; BP diastolic 68–80; PULSE 94–109; RESP 13–18; TEMP 36.6–37.3; O2SAT 91–96
[2021-09-23] MEDS: oxyCODONE 5 MG Tablet PO ×3 (05:26→20:11)
[2021-09-23 06:57] LABS: Absolute Lymphocyte Count 0.88 X10^3/uL (0.83-4.51); Absolute Neutrophil Count 11.2 X10^3/uL (2.0-7.7); Basophil# 0.02 X10^3/uL; Basophil% 0.2 % (0-1); Eosinophil# 0.01 X10^3/uL; Eosinophils% 0.1 % (0-5); Hematocrit 40.5 % (40-54); Hemoglobin 13.8 g/dL (13.0-16.5); Lymphocyte # 0.88 X10^3/ul (0.83-4.51); Lymphocyte % 6.8 % (19-41); Mean Corp Hgb Conc 34.1 g/dL (32-36); Mean Corpuscular Hgb 32.5 pg (27.0-32.0); Mean Corpuscular Volume 95.5 fL (80-94); Mean Platelet Vol. 10.4 fl (6.2-12.0); Monocyte# 0.66 X10^3/uL; Monocyte% 5.1 % (0-10); NRBC Flagged by Analyzer 0 % (0-5); Neutrophil # 11.24 X10^3/uL (2.7-7.7); Neutrophil % 87.3 % (47-70); Platelet Count 182 K/mm3 (150-450); RBC Distribution Width CV 13.2 % (11.6-14.6); RBC Distribution Width SD 46.8 fl (35.1-43.9); Red Blood Count 4.24 M/mm3 (4.6-6.2); White Blood Count 12.9 K/mm3 (4.4-11.0)
[2021-09-23 07:26] LABS: Anion Gap 7 (5-15); BUN 13 mg/dL (7-18); BUN/Creat Ratio 23.7 RATIO (10-20); Calcium,Total 7.7 mg/dL (8.5-10.1); Chloride 108 mmol/L (98-107); Creatinine, Serum 0.55 mg/dL (0.70-1.30); EST Glomerular Filtration Rate 161 mL/min (>60); Est Glom Filt Rate - Afr Amer 195 mL/min (>60); Estimated Creatinine Clearance 170.97 ml/min; Glucose 102 mg/dL (74-106); Magnesium 2.1 mg/dL (1.6-2.6); Phosphorus 1.8 mg/dL (2.5-4.9); Potassium 3.8 mmol/L (3.5-5.1); Sodium Level 136 mmol/L (136-145)
--- NOTE | 2021-09-23 08:15 | CPS ---
found pt on RA SPO2 88%, placed back on O2 2lpm 91%
[2021-09-23] MEDS: Docusate Sodium 100 MG Capsule PO (09:42)
[2021-09-23] MEDS: Amox/Clavulanate 875 MG Tablet PO ×2 (09:42→22:09)
--- NOTE | 2021-09-23 11:54 | CASEMGMT ---
Spoke with pt nurse who will try to wean pt off of O2. Currently on 2L.
--- NOTE | 2021-09-23 13:04 | PCM.PN.SRG ---
Subjective Subjective Patient was seen and examined during AM rounds and again this afternoon. He states that his abdominal pains continue to improve. He denies any nausea or vomiting. He states that he had some hiccuping and burping yesterday, but he is largely just passing flatus from below today. He denies any shortness of breath. Objective Data Objective Data Vital Signs: Vital Signs Temp Pulse Resp BP Pulse Ox 99.1 F 105 H 16 151/78 H 93 09/23/21 08:50 09/23/21 10:05 09/23/21 12:15 09/23/21 08:50 09/23/21 12:15 Oxygen Flow Rate (L/min) [At 2 REST with Oxygen] Oxygen Flow Rate (L/min) 2 Oxygen Delivery Method Room Air Weight: 232 lb 2.348 oz Body Mass Index (BMI) 28.3 Intake & Output: Intake and Output for Last 24 Hours 09/21/21 09/22/21 09/23/21 23:59 23:59 23:59 Intake Total 3870.83 / 3870.83 3267.50 / 3267.50 1350.54 / 1350.54 Output Total 1010 / 1260 1950 / 1950 380 / 380 Balance 2860.83 / 2610.83 1317.50 / 1317.50 970.54 / 970.54 Lab / Micro Data Result Diagrams: 09/23/21 06:35 09/23/21 06:35 Labs: Laboratory Results - last 24 hr 09/23/21 06:35: WBC 12.9 H, RBC 4.24 L, Hgb 13.8, Hct 40.5, MCV 95.5 H, MCH 32.5 H, MCHC 34.1, RDW Std Deviation 46.8 H, RDW Coeff of Ar 13.2, Plt Count 182, MPV 10.4, Immature Gran % (Auto) 0.500, Neut % (Auto) 87.3 H, Lymph % (Auto) 6.8 L, [place] % (Auto) 5.1, Eos % (Auto) 0.1, Baso % (Auto) 0.2, Absolute Neuts (auto) 11.2 H, Absolute Lymphs (auto) 0.88, Nucleated RBC % 0 09/23/21 06:35: Sodium 136, Potassium 3.8, Chloride 108 H, Carbon Dioxide 21.0, Anion Gap 7, BUN 13, Creatinine 0.55 L, Estim Creat Clear Calc 170.97, Est GFR (MDRD) Af Amer 195, Est GFR (MDRD) Non-Af 161, BUN/Creatinine Ratio 23.7 H, Glucose 102, Calcium 7.7 L, Phosphorus 1.8 L, Magnesium 2.1 Micro: Microbiology 09/21/21 01:18 Nasal Secretion SARS-CoV-2 Antigen (Rapid) - Final Physical Exam Const oriented x3 and no apparent distress Resp normal respiratory effort GI GI Narrative: Mild abdominal distention. Mild abdominal tenderness about port sites. Bandages were removed today and there is no surrounding erythema or drainage but Steri-Strips remain intact over incisions. Patient's suprapubic drain was stripped and is now draining a thin, straw?colored fluid. Assessment & Plan Assessment/Plan (1) S/P laparoscopic appendectomy: PLAN: Patient postoperative day 2 from laparoscopic appendectomy as well as resection of small bowel diverticulum. He is recovering next expected with return of bowel function. White count is still downtrending appropriately. Patient remains mildly distended and without complete return of bowel function. Given patient's risk for postoperative ileus would like to see him had a bowel movement prior to discharge. We will plan to reassess tomorrow, but have started stool softeners. Neuro: As needed morphine, add as needed oxycodone, as needed ibuprofen, home ropinirole ordered for patient's restless leg syndrome Pulm/CV: Supplemental O2 weaned,telemetry FEN/GI:Trend BMP, Phos?replacing hypophosphatemia with K-Phos again today, regular diet without that carbonation, stool softener added Heme/ID: Stable hemoglobin, downtrending WBC, patient transition to p.o. Augmentin given tolerance of regular diet Endo: No current issues Proph: SCDs, Ambulate as tolerated, PT evaluation requested Dispo:Continue inpatient care (2) Appendicitis with perforation: (3) Diverticulum of small intestine: Charges/Coding Visit Charges Inpatient E&M: 40367 Subs Hosp L2
[2021-09-23] MEDS: Pramipexole Di-HCl 0.5 MG Tablet PO (22:09)
[2021-09-24] VITALS (21 sets, daily range): BP systolic 133–170; BP diastolic 67–105; PULSE 91–122; RESP 16–24; TEMP 36.4–37.1; O2SAT 85–100; BMI 28.3
--- NOTE | 2021-09-24 | APP_PTH ---
PATIENT: OLGA SANTOYO LOC: MS3 U#:[id number] AGE/SX: 61/M ROOM: [facility] [place] RE09/21/[address]: Dr. Nathan Taveras MD : 1960 BED: 1 DIS: 10/23/2021 SPEC #: [id number] RECD: 09/25/21 09:46 STATUS: MEHDI RENayely #: [id number] LOR: 09/24/21 00:[address]: Nathan Taveras DEPT: SURGICAL PATHOLOGY RECD BY: Derek Owen ENTERED: 09/25/21 09:46 SP TYPE: APPENDIX OTHR DR: Dr. Linda Dominguez MD Tissues: Appendix, NOS Procedures: Surgery Specimen Level III HEADER OPERATION: Hand-assisted laparoscopic appendectomy PRE-OP DIAGNOSIS: Appendicitis with perforation TISSUE SUBMITTED: Appendix MICROSCOPIC DIAGNOSIS Appendix, appendectomy: Acute appendicitis with rupture and associated acute serositis. AM:chloe 09/26/2021 MICROSCOPIC DESCRIPTION Slides are reviewed. GROSS DESCRIPTION Received in fixative is one container labeled with the patient's name and designated appendix. The specimen consists of an indurated fragment of yellow-joshua fibrofatty tissue surrounding an appendix that measures 8 cm in length and 1.5 cm in average diameter. Serial sections reveal a possible rupture in mid portion of appendix. No mass lesions are identified. Meteorologist In Charge sections are submitted in three cassettes. / AM:chloe 09/25/2021 TC:3 CPT: 77593
[2021-09-24 06:10] LABS: Anion Gap 7 (5-15); BUN 8 mg/dL (7-18); BUN/Creat Ratio 19.9 RATIO (10-20); Calcium,Total 7.6 mg/dL (8.5-10.1); Chloride 102 mmol/L (98-107); EST Glomerular Filtration Rate 230 mL/min (>60); Est Glom Filt Rate - Afr Amer 279 mL/min (>60); Estimated Creatinine Clearance 235.08 ml/min; Glucose 118 mg/dL (74-106); Phosphorus 1.8 mg/dL (2.5-4.9); Potassium 3.3 mmol/L (3.5-5.1); Sodium Level 135 mmol/L (136-145)
[2021-09-24] MEDS: Ondansetron 4 MG/2 ML Vial IV (07:23)
[2021-09-24] MEDS: 0.9% Saline Lock 10 ML Syringe IV (07:23)
[2021-09-24] MEDS: Potassium Chloride Oral Tablet 20 MEQ PO (09:28)
[2021-09-24] MEDS: Docusate Sodium 100 MG Capsule PO (09:31)
[2021-09-24] MEDS: Amox/Clavulanate 875 MG Tablet PO (09:31)
[2021-09-24] MEDS: Bisacodyl 10 MG Suppository RC (09:41)
[2021-09-24 11:40] LABS: Absolute Lymphocyte Count 1.15 X10^3/uL (0.83-4.51); Absolute Neutrophil Count 11.3 X10^3/uL (2.0-7.7); Basophil# 0.06 X10^3/uL; Basophil% 0.4 % (0-1); Eosinophil# 0.05 X10^3/uL; Eosinophils% 0.4 % (0-5); Hematocrit 36.8 % (40-54); Lymphocyte # 1.15 X10^3/ul (0.83-4.51); Lymphocyte % 8.4 % (19-41); Mean Corp Hgb Conc 35.3 g/dL (32-36); Mean Corpuscular Volume 93.4 fL (80-94); Monocyte# 1.08 X10^3/uL; Monocyte% 7.8 % (0-10); NRBC Flagged by Analyzer 0 % (0-5); Neutrophil # 11.33 X10^3/uL (2.7-7.7); Neutrophil % 82.3 % (47-70); Platelet Count 175 K/mm3 (150-450); RBC Distribution Width CV 13.2 % (11.6-14.6); RBC Distribution Width SD 45.5 fl (35.1-43.9); Red Blood Count 3.94 M/mm3 (4.6-6.2); White Blood Count 13.8 K/mm3 (4.4-11.0)
--- NOTE | 2021-09-24 12:32 | PCM.PN.SRG ---
Subjective Subjective Patient was seen and examined during AM rounds. He reported mild nausea this morning, but was continue to pass flatus and tolerated breakfast. He reported ongoing improvements in the discomfort from his abdomen. Objective Data Objective Data Vital Signs: Vital Signs Temp Pulse Resp BP Pulse Ox 98.8 F 93 18 170/105 H 95 09/24/21 10:17 09/24/21 10:17 09/24/21 10:17 09/24/21 10:17 09/24/21 11:15 Oxygen Flow Rate (L/min) [At 2 REST with Oxygen] Oxygen Flow Rate (L/min) 4 Oxygen Delivery Method Room Air Weight: 232 lb 2.348 oz Body Mass Index (BMI) 28.3 Intake & Output: Intake and Output for Last 24 Hours 09/22/21 09/23/21 09/24/21 23:59 23:59 23:59 Intake Total 3267.50 / 3267.50 1350.54 / 1350.54 Output Total 1950 / 1950 640 / 640 325 / 325 Balance 1317.50 / 1317.50 710.54 / 710.54 -325 / -325 Lab / Micro Data Result Diagrams: 09/24/21 05:14 09/24/21 05:14 Labs: Laboratory Results - last 24 hr 09/24/21 05:14: Sodium 135 L, Potassium 3.3 L, Chloride 102, Carbon Dioxide 26.0, Anion Gap 7, BUN 8, Creatinine 0.40 L, Estim Creat Clear Calc 235.08, Est GFR (MDRD) Af Amer 279, Est GFR (MDRD) Non-Af 230, BUN/Creatinine Ratio 19.9, Glucose 118 H, Calcium 7.6 L, Phosphorus 1.8 L 09/24/21 05:14: WBC 13.8 H, RBC 3.94 L, Hgb 13.0, Hct 36.8 L, MCV 93.4, MCH 33.0 H, MCHC 35.3, RDW Std Deviation 45.5 H, RDW Coeff of Ar 13.2, Plt Count 175, MPV 11.0, Immature Gran % (Auto) 0.700, Neut % (Auto) 82.3 H, Lymph % (Auto) 8.4 L, [place] % (Auto) 7.8, Eos % (Auto) 0.4, Baso % (Auto) 0.4, Absolute Neuts (auto) 11.3 H, Absolute Lymphs (auto) 1.15, Nucleated RBC % 0 Micro: Microbiology 09/21/21 01:18 Nasal Secretion SARS-CoV-2 Antigen (Rapid) - Final Physical Exam Const oriented x3 and no apparent distress Resp normal respiratory effort GI GI Narrative: Nondistended, soft, mildly tender to palpation the right lower quadrant and about port site incisions. Patient with suprapubic drain and effluent thin, yellow fluid. Assessment & Plan Assessment/Plan (1) Appendicitis with perforation: PLAN: Patient is postoperative day 3 from laparoscopic appendectomy with Meckel's diverticulectomy, however, I received a phone call from pathology today stating that there was no appendix found in the specimen. Specimen only consistent with fibrofatty tissue. They confirm that the entirety of both specimens were submitted and processed. Patient's white blood cell count was rechecked and is now rising. Given that he seems to be stagnating clinically, I advocate return to the OR for further exploration of the right lower quadrant and appendectomy. Patient will to be consented for laparoscopic versus open appendectomy and all indicated procedures. This has been discussed with both patient and his at bedside. Charges/Coding Visit Charges Inpatient E&M: 73677 Subs Hosp L2
--- NOTE | 2021-09-24 12:56 | EKG12_ITS ---
Test Reason : AM EKG Blood Pressure : / mmHG Vent. Rate : 102 BPM Atrial Rate : 102 BPM P-R Int : 150 ms QRS Dur : 148 ms QT Int : 380 ms P-R-T Axes : 024 033 -16 degrees QTc Int : 495 ms Sinus tachycardia Right bundle branch block T wave abnormality, consider inferolateral ischemia vs IVCD effect Abnormal ECG Confirmed by MAXI MITCHELL, LUBNA ([id number]), society editor SHAHIDA ESCOBAR ([id number]) on 09/25/2021 8:14:45 AM Referred By: VIKY Confirmed By:LUBNA GERMAN MD
[2021-09-24 13:25] LABS: Troponin-I HS 36 pg/mL (3.0-78.0)
[2021-09-24] MEDS: Cefazolin 2 GM in 0.9% Normal Saline 100 ML IV (13:31)
--- NOTE | 2021-09-24 16:15 | OP.PCM_ITS ---
Report of Operation Date of Procedure: 09/24/21 Pre-Operative Diagnosis: Acute, perforated appendicitis Post-Operative Diagnosis: Same Surgery/Procedure Performed:: Hand-assisted laparoscopic appendectomy Description of Surgical Findings:: ?Mild adhesions of the terminal ileum and cecum to the anterior abdominal wall that were easily lysed with blunt dissection ?Kinking of the terminal ileum by dense adhesions to the right lower quadrant ?Completely retrocecal appendix with periappendiceal purulence Surgeon: Nathan Taveras water vessel captain: Ros Deluca water vessel captain: Julio Larson Type of Anesthesia: General/Supplemental Anesthesiologist: Jean Claude Jasmine Specimen's removed: Appendix Drains: 10 [place] round Larry Estimated Blood Loss (mL): 150 Fluids Replaced: 1300 Description of Procedure: After appropriate notification in the preoperative holding area?including formalization of consents, the patient was brought to the operating room and placed supine on the operating room table. Antibiotics had been preoperatively administered orally, but surgical prophylaxis was begun as well. Patient was then induced with general endotracheal anesthetic via rapid sequence intubation. A Wills catheter was placed to decompress the patient's bladder and for accurate I&O monitoring during the case. The abdomen was prepped and draped in usual sterile fashion. Formal timeout was conducted to confirm both the patient and the procedure. The supraumbilical port site was reopened at the skin and at the fascia. After a finger sweep was made to confirm position, a balloon trocar was placed and pneumoperitoneum was established to 15 mmHg. Patient was positioned in Trendelenburg with the left side down. The suprapubic port site was reopened at the skin and a 5 mm trocar was placed through this site. Given that patient's prior left lower quadrant port that caused some reach with his prior case, I elected to move this port site approximately 6 cm medial to the prior 5 mm port site. Here, a 5 mm trocar was introduced to the peritoneum under direct laparoscopic vision. The peritoneum was inspected and there were no signs of inadvertent injury from this [place] entry. The right lower quadrant was inspected and I found some thin adhesions between the patient's terminal ileum in the anterior cecal wall and the anterior abdominal wall. These were bluntly swept away with a laparoscopic grasper. With similar blunt dissection along the lateral aspect of the cecum, I was able to identify our prior staple lines. However, as I attempted medial rotation of the cecum, the small bowel refused to be swept out of the way so a third 5 mm port was placed under direct laparoscopic visualization in the right upper quadrant. This accommodated a grasper that allowed us to expose the right lower quadrant more adequately. During the small bowel mobilization I encountered some pus coming from the retroperitoneum. Still, I was met with inability to medialize the cecum given tethering of the colon via the terminal ileum which was adherent in the right lower quadrant. The small bowel was densely adherent at this point and I was unable to gain any mobilization with blunt dissection. Therefore, the decision was made to convert to his hand- assisted approach. A longitudinal incision was made from just below the patient's umbilicus to connect to the patient's suprapubic port site. This was deepened down through the subcutaneous and fascial layers with the use of electrocautery. A medium size Nabeel wound protector was placed and the GelPort was fitted onto this ring. Finally in this configuration we were able to clearly delineate the terminal ileum terminating into the cecum. As we followed the coalescence of the tinea on the cecum we could see the appendiceal base retreating directly posterior in a full retrocecal position. In response, the cecum was mobilized lateral to medial with blunt dissection. This proved somewhat tedious given the adherence to the retroperitoneum, but ultimately were able to discern the body of the appendix plastered against the posterior aspect of the cecum. Notably, the base of the appendix was relatively free of any inflammation and we decided to create a window in the mesoappendix and staple the appendiceal base. Then through a combination of blunt dissection and use of the laparoscopic Enseal device were able to divide the remaining mesoappendix attachments to the retroperitoneum. The specimen was then removed from the peritoneum and passed off the field for permanent section. Several small stool balls were noted along the right paracolic gutter and care was taken to extract these from the peritoneum as well. The mobilization of the colon had produced a rather large raw surface area against the retroperitoneum and while most of the oozing we encountered during the case spontaneously abated, we elected to place Yefri hemostatic agent along the surface out of the abundance of caution. I nspecting the area of the terminal ileum, we noted the small bowel to be contorted in a hairpin loop by the inflammatory process there so additional blunt dissection was used to lyse some of these adhesions and reestablish a more gentle curve of the terminal ileum as it entered the cecum. The most distal aspect of the terminal ileum was left adherent to the right pelvic sidewall, because it became evident that this was likely adherent from patient's prior surgery and any attempt to move it could compromise the small bowel blood supply. On the cecum itself, there was evidence of a small, inadvertent serosal tear. This was repaired with a simple, interrupted stitch using 3-0 Vicryl and was patched with some nearby mesentery. Given the contamination of the surgical site, I elected to place a 15 [place], round Larry drain along the right paracolic gutter and brought the drain catheter out through the patient's left lower quadrant 5 mm port site. This was secured in place with use of a 2-0 nylon suture. Pneumoperitoneum was then evacuated. The two (the patient's right upper quadrant 5 mm port site was upsized to accommodate a 10 mm laparoscope for improved visualization partly through the case) 12 mm port sites were closed at the fascia using 0 Vicryl in a [id number] fashion. The hand assist port site was closed in layers using a 3-0 Vicryl to close the peritoneum followed by a #1 PDS to close the fascia. The fascia of these port sites was then injected with local anesthetic before the skin was closed in a subcuticular fashion using 4-0 Monocryl. Steri-Strips and OpSite dressings were placed. The patient was then awoken from anesthetic and taken to PACU for ongoing recovery. Complications None Procedures Digestive [id number]: [id number] Laparoscopy appendectomy
[2021-09-24] MEDS: Bupivacaine Mpf 0.5% 30 ML VIAL (16:17)
[2021-09-24 18:07] LABS: Bedside Glucose 189 mg/dL (70-110)
[2021-09-24] MEDS: 0.9% Normal Saline 1,000 ML 125 ML IV (18:27)
[2021-09-25] VITALS (23 sets, daily range): BP systolic 122–160; BP diastolic 66–100; PULSE 72–109; RESP 18–20; TEMP 36.4–36.9; O2SAT 90–94; BMI 28.3
[2021-09-25] MEDS: 0.9% Normal Saline 1,000 ML 100 ML IV ×3 (03:01→22:22)
[2021-09-25 06:53] LABS: Absolute Lymphocyte Count 1.16 X10^3/uL (0.83-4.51); Absolute Neutrophil Count 11.4 X10^3/uL (2.0-7.7); Basophil# 0.04 X10^3/uL; Basophil% 0.3 % (0-1); Eosinophil# 0.01 X10^3/uL; Eosinophils% 0.1 % (0-5); Hematocrit 37.8 % (40-54); Lymphocyte # 1.16 X10^3/ul (0.83-4.51); Lymphocyte % 8.4 % (19-41); Mean Corp Hgb Conc 34.4 g/dL (32-36); Mean Corpuscular Volume 93.1 fL (80-94); Mean Platelet Vol. 10.7 fl (6.2-12.0); Monocyte# 1.03 X10^3/uL; Monocyte% 7.4 % (0-10); NRBC Flagged by Analyzer 0 % (0-5); Neutrophil # 11.38 X10^3/uL (2.7-7.7); Neutrophil % 82.1 % (47-70); Platelet Count 242 K/mm3 (150-450); RBC Distribution Width CV 13.7 % (11.6-14.6); RBC Distribution Width SD 47.5 fl (35.1-43.9); Red Blood Count 4.06 M/mm3 (4.6-6.2); White Blood Count 13.9 K/mm3 (4.4-11.0)
[2021-09-25 07:18] LABS: Anion Gap 4 (5-15); BUN 9 mg/dL (7-18); BUN/Creat Ratio 18.1 RATIO (10-20); Calcium,Total 7.9 mg/dL (8.5-10.1); Chloride 105 mmol/L (98-107); EST Glomerular Filtration Rate 180 mL/min (>60); Est Glom Filt Rate - Afr Amer 218 mL/min (>60); Estimated Creatinine Clearance 188.07 ml/min; Glucose 146 mg/dL (74-106); Magnesium 2.3 mg/dL (1.6-2.6); Phosphorus 2.4 mg/dL (2.5-4.9); Potassium 3.8 mmol/L (3.5-5.1); Sodium Level 137 mmol/L (136-145)
[2021-09-25] MEDS: Ipratropium/Albuterol Sulfate 3 ML AMPUL.NEB INHALATION ×3 (07:30→19:53)
--- NOTE | 2021-09-25 08:05 | PN.SURG_ITS ---
Subjective Subjective Patient was seen and examined during AM rounds. He is found sitting upright in bed. He states that he is in some postoperative discomfort but that his pain medication is working to relieve this discomfort. He relates that his Wills is already been discontinued. He denies any nausea and requests something to jessa barnard. Objective Data Objective Data Vital Signs: Vital Signs Temp Pulse Resp BP Pulse Ox 97.5 F L 92 18 145/83 H 92 09/25/21 06:31 09/25/21 06:31 09/25/21 06:31 09/25/21 06:31 09/25/21 06:48 Oxygen Flow Rate (L/min) [At 2 REST with Oxygen] Oxygen Flow Rate (L/min) 2 Oxygen Delivery Method Nasal Cannula Weight: 232 lb 2.348 oz Body Mass Index (BMI) 28.3 Intake & Output: Intake and Output for Last 24 Hours 09/23/21 09/24/21 09/25/21 23:59 23:59 23:59 Intake Total 1350.54 / 1350.54 604.5 / 604.5 716.67 / 716.67 Output Total 640 / 640 1665 / 1665 505 / 505 Balance 710.54 / 710.54 -1060.5 / -1060.5 211.67 / 211.67 Lab / Micro Data Result Diagrams: 09/25/21 06:04 09/25/21 06:04 Labs: Laboratory Results - last 24 hr 09/24/21 05:14: WBC 13.8 H, RBC 3.94 L, Hgb 13.0, Hct 36.8 L, MCV 93.4, MCH 33.0 H, MCHC 35.3, RDW Std Deviation 45.5 H, RDW Coeff of Ar 13.2, Plt Count 175, MPV 11.0, Immature Gran % (Auto) 0.700, Neut % (Auto) 82.3 H, Lymph % (Auto) 8.4 L, [place] % (Auto) 7.8, Eos % (Auto) 0.4, Baso % (Auto) 0.4, Absolute Neuts (auto) 11.3 H, Absolute Lymphs (auto) 1.15, Nucleated RBC % 0 09/24/21 05:14: Troponin I High Sens 36 09/24/21 16:53: POC Glucose 189 H 09/25/21 06:04: WBC 13.9 H, RBC 4.06 L, Hgb 13.0, Hct 37.8 L, MCV 93.1, MCH 32.0, MCHC 34.4, RDW Std Deviation 47.5 H, RDW Coeff of Ar 13.7, Plt Count 242, MPV 10.7, Immature Gran % (Auto) 1.700 H, Neut % (Auto) 82.1 H, Lymph % (Auto) 8.4 L, [place] % (Auto) 7.4, Eos % (Auto) 0.1, Baso % (Auto) 0.3, Absolute Neuts (auto) 11.4 H, Absolute Lymphs (auto) 1.16, Nucleated RBC % 0 09/25/21 06:04: Sodium 137, Potassium 3.8, Chloride 105, Carbon Dioxide 28.0, Anion Gap 4 L, BUN 9, Creatinine 0.50 L, Estim Creat Clear Calc 188.07, Est GFR (MDRD) Af Amer 218, Est GFR (MDRD) Non-Af 180, BUN/Creatinine Ratio 18.1, Glucose 146 H, Calcium 7.9 L, Phosphorus 2.4 L, Magnesium 2.3 Micro: Microbiology 09/21/21 01:18 Nasal Secretion SARS-CoV-2 Antigen (Rapid) - Final Physical Exam Const Constitutional Narrative: Appears mildly uncomfortable Resp normal respiratory effort Resp Narrative: Nasal cannula in place oximetry showing saturations of 91 to 92% SPO2 GI GI Narrative: Mildly distended, soft, tender to palpation in the right lower quadrant and about port site/hand assist site. There is small amount of thin strikethrough drainage to patient's supraumbilical port site as well as the hand assist site. There is also some drainage around the patient's left lower quadrant drain sponge. Drain contains serosanguineous output with some clot in the line that is cleared. Assessment & Plan Assessment/Plan (1) S/P laparoscopic appendectomy: PLAN: Patient required return to the OR on 09/24/2021 after pathology reported they did not identify appendix in the patient's surgical specimen from 09/21/2021. Therefore, patient is postoperative day 1 from hand-assisted laparoscopic appendectomy with drain placement. He is experiencing some discomfort, but does acknowledge that his pain medications are relieving this discomfort. Along with this he is demonstrated some mild tachycardia, but this is improving per his vitals trend. He remains n.p.o. out of concern for developing ileus given the extensive mobilization required during the surgery as well as the degree of contamination in the right lower quadrant from a perforate d appendix. Electrolytes are improved after replacement yesterday. Patient's urine output was appropriate overnight and Wills catheter was discontinued by nursing this morning. Laboratories demonstrate stable hemoglobin and stable leukocytosis Neuro: As needed Dilaudid Pulm/CV: Supplemental O2 as needed; wean as able, DuoNebs every 6 hours while awake, telemetry FEN/GI: Continue to monitor BMP while patient's diet is restricted, may advance to clear liquid diet without carbonation Heme/ID: Hemoglobin stable postop, continue Zosyn given contamination of the case, leukocytosis stable Endo: No current issues Proph: SCDs, patient encouraged to ambulate, hold chemoprophylaxis given oozing during the case Dispo: Continue inpatient care (2) Appendicitis with perforation: PLAN: Postoperative ileus anticipated given the contamination encountered during surgery on 09/24/2021. However patient is requesting a diet and denying any nausea, I have encouraged him to go slow and we will initiate a clear liquid diet this morning. Charges/Coding Visit Charges Inpatient E&M: 88797 Subs Hosp L2
[2021-09-25] MEDS: oxyCODONE 5 MG Tablet PO (08:34)
[2021-09-25] MEDS: Calcium Carbonate 500 MG Tablet PO (12:01)
[2021-09-25] MEDS: HYDROmorphone 1 MG/ML Syringe IV (13:11)
[2021-09-25] MEDS: 0.9% Saline Lock 10 ML Syringe IV ×3 (13:12→18:00)
[2021-09-25] MEDS: Ondansetron 4 MG/2 ML Vial IV (13:19)
[2021-09-25] MEDS: Doxazosin 1 MG Tablet PO (18:00)
[2021-09-25] MEDS: Ketorolac 15 MG/ML Vial IV (18:03)
[2021-09-26] VITALS (17 sets, daily range): BP systolic 124–163; BP diastolic 68–89; PULSE 69–104; RESP 18–22; TEMP 36.4–36.6; O2SAT 90–97
[2021-09-26] MEDS: 0.9% Saline Lock 10 ML Syringe IV ×4 (00:29→18:07)
[2021-09-26] MEDS: Ketorolac 15 MG/ML Vial IV ×5 (00:29→23:48)
[2021-09-26 06:14] LABS: Absolute Lymphocyte Count 1.78 X10^3/uL (0.83-4.51); Absolute Neutrophil Count 6.3 X10^3/uL (2.0-7.7); Basophil# 0.04 X10^3/uL; Basophil% 0.4 % (0-1); Eosinophil# 0.03 X10^3/uL; Eosinophils% 0.3 % (0-5); Hematocrit 37.8 % (40-54); Hemoglobin 13.5 g/dL (13.0-16.5); Lymphocyte # 1.78 X10^3/ul (0.83-4.51); Lymphocyte % 18.7 % (19-41); Mean Corp Hgb Conc 35.7 g/dL (32-36); Mean Corpuscular Hgb 33.1 pg (27.0-32.0); Mean Corpuscular Volume 92.6 fL (80-94); Mean Platelet Vol. 10.4 fl (6.2-12.0); Monocyte# 1.12 X10^3/uL; Monocyte% 11.8 % (0-10); NRBC Flagged by Analyzer 0 % (0-5); Neutrophil # 6.29 X10^3/uL (2.7-7.7); Neutrophil % 66.3 % (47-70); Platelet Count 295 K/mm3 (150-450); RBC Distribution Width CV 14.3 % (11.6-14.6); RBC Distribution Width SD 49.3 fl (35.1-43.9); Red Blood Count 4.08 M/mm3 (4.6-6.2); White Blood Count 9.5 K/mm3 (4.4-11.0)
[2021-09-26 06:42] LABS: Anion Gap 5 (5-15); BUN 9 mg/dL (7-18); BUN/Creat Ratio 15.7 RATIO (10-20); Calcium,Total 7.5 mg/dL (8.5-10.1); Chloride 107 mmol/L (98-107); Creatinine, Serum 0.57 mg/dL (0.70-1.30); EST Glomerular Filtration Rate 153 mL/min (>60); Est Glom Filt Rate - Afr Amer 185 mL/min (>60); Estimated Creatinine Clearance 164.97 ml/min; Glucose 109 mg/dL (74-106); Magnesium 1.9 mg/dL (1.6-2.6); Phosphorus 1.9 mg/dL (2.5-4.9); Potassium 3.8 mmol/L (3.5-5.1); Sodium Level 139 mmol/L (136-145)
[2021-09-26] MEDS: 0.9% Normal Saline 1,000 ML 100 ML IV (06:42)
[2021-09-26] MEDS: Ipratropium/Albuterol Sulfate 3 ML AMPUL.NEB INHALATION ×2 (07:14→13:04)
[2021-09-26] MEDS: Doxazosin 1 MG Tablet PO (09:18)
[2021-09-26] MEDS: Furosemide 20 MG/2 ML VIAL IV (09:50)
--- NOTE | 2021-09-26 10:29 | PN.SURG_ITS ---
Subjective Subjective Patient seen and examined sitting outside of bed in a chair. He reports that he is still feeling fatigued and sore from the surgery. He continues to tolerate his liquid diet without any nausea. He is happy to report he started passing flatus this morning. He also reports that he is urinating freely. Nursing me ssaged saying that patient's drain output volume had increased and the character of the output had changed to a clear yellow. Objective Data Objective Data Vital Signs: Vital Signs Temp Pulse Resp BP Pulse Ox 97.6 F L 104 H 18 135/81 H 95 09/26/21 07:49 09/26/21 08:02 09/26/21 07:49 09/26/21 07:49 09/26/21 07:49 Oxygen Flow Rate (L/min) [At 2 REST with Oxygen] Oxygen Flow Rate (L/min) 3 Oxygen Delivery Method Nasal Cannula Weight: 232 lb 2.348 oz Body Mass Index (BMI) 28.3 Intake & Output: Intake and Output for Last 24 Hours 09/24/21 09/25/21 09/26/21 23:59 23:59 23:59 Intake Total 604.5 / 604.5 4849.42 / 4849.42 1280.66 / 1280.66 Output Total 1665 / 1665 1435 / 1435 680 / 680 Balance -1060.5 / -1060.5 3414.42 / 3414.42 600.66 / 600.66 Lab / Micro Data Result Diagrams: 09/26/21 05:23 09/26/21 05:23 Labs: Laboratory Results - last 24 hr 09/26/21 05:23: WBC 9.5, RBC 4.08 L, Hgb 13.5, Hct 37.8 L, MCV 92.6, MCH 33.1 H, MCHC 35.7, RDW Std Deviation 49.3 H, RDW Coeff of Ar 14.3, Plt Count 295, MPV 10.4, Immature Gran % (Auto) 2.500 H, Neut % (Auto) 66.3, Lymph % (Auto) 18.7 L, [place] % (Auto) 11.8 H, Eos % (Auto) 0.3, Baso % (Auto) 0.4, Absolute Neuts (auto) 6.3, Absolute Lymphs (auto) 1.78, Nucleated RBC % 0 09/26/21 05:23: Sodium 139, Potassium 3.8, Chloride 107, Carbon Dioxide 27.0, Anion Gap 5, BUN 9, Creatinine 0.57 L, Estim Creat Clear Calc 164.97, Est GFR (MDRD) Af Amer 185, Est GFR (MDRD) Non-Af 153, BUN/Creatinine Ratio 15.7, Glucose 109 H, Calcium 7.5 L, Phosphorus 1.9 L, Magnesium 1.9 Micro: Microbiology 09/21/21 01:18 Nasal Secretion SARS-CoV-2 Antigen (Rapid) - Final Physical Exam Const oriented x3 and no apparent distress Resp normal respiratory effort Resp Narrative: Supplemental oxygen in place via nasal cannula GI GI Narrative: Distended, tender to palpation in the right lower quadrant and about port site/hand assist site. Dressings are removed and Steri-Strips remain intact over incisions. There is a small amount of crusting under the patient's right upper quadrant port site. Patient's left lower quadrant drain site is appropriate and the KELLY drain is charged draining thin, clear yellow fluid. Assessment & Plan Assessment/Plan (1) S/P laparoscopic appendectomy: PLAN: Patient required return to the OR on 09/24/2021 after pathology reported they did not identify appendix in the patient's surgical specimen from 09/21/2021. Therefore, patient is postoperative day 2 from hand-assisted laparoscopic appendectomy with drain placement. Patient states that his postoperative discomfort has improved with the addition of Toradol. Patient seems to be tolerating his clear liquid diet without any subsequent nausea. He also reports return of bowel function with flatus earlier today. Patient has some mild electrolyte derangements with today's labs and will plan to replace today. Patient initially had issues with urinary retention, but this is resolved. Laboratories demonstrate stable hemoglobin and normalization of the WBC. Neuro: As needed Dilaudid, oxycodone 5 mg every 6 hours, scheduled Toradol Pulm/CV: Supplemental O2 as needed; wean as able, DuoNebs every 6 hours while awake, diuresing to see if this will decrease the oxygen requirement, telemetry FEN/GI: Continue to monitor BMP while patient's diet is restricted, replace mag and Phos today, may advance to full liquid diet without carbonation Heme/ID: Hemoglobin stable postop, continue Zosyn given contamination of the case, leukocytosis resolved Endo: No current issues Proph: SCDs, patient encouraged to ambulate Dispo: Continue inpatient care (2) Appendicitis with perforation: PLAN: Postoperative ileus anticipated given the contamination encountered during surgery on 09/24/2021. However patient is requesting a diet and denying any nausea, I have encouraged him to go slow and we will initiate a clear liquid diet this morning. Charges/Coding Visit Charges Inpatient E&M: 67633 Subs Hosp L2
--- NOTE | 2021-09-26 14:13 | RAD_ITS ---
STUDY: X-RAY - ABDOMEN/PELVIS REASON FOR EXAM: Male, 61 years old. ab distention s/p appendectomy TECHNIQUE: Single AP view of the abdomen / pelvis. COMPARISON: None. FINDINGS: Increased markings at the lung bases slightly more prominent on the left side suggests some bibasilar atelectasis. Blunting of the left costophrenic angle. There is a paralytic ileus of the small intestine with mild gaseous distention. The drainage catheter is seen in the right lower quadrant. The visualized liver, spleen and kidneys are grossly normal in size and morphology. Normal soft tissue structures. Status post fusion of the lumbar spine. RAD/Abdomen Single View (Portable) IMPRESSION: Findings suggestive of an ileus gas pattern. A drainage catheter seen in the right lower quadrant. Electronically Signed: Sourav Rodriguez MD at 15:07 EST ,
[2021-09-26] MEDS: Heparin Injection (Vial) 5,000 UNIT/ML VIAL 5000 UNIT SC (20:45)
[2021-09-26] MEDS: 0.9% Normal Saline 1,000 ML 75 ML IV (23:45)
[2021-09-27] VITALS (15 sets, daily range): BP systolic 126–160; BP diastolic 60–83; PULSE 74–104; RESP 16–92; TEMP 36.4–37.1; O2SAT 91–96
[2021-09-27] MEDS: Ketorolac 15 MG/ML Vial IV ×2 (05:38→11:20)
[2021-09-27] MEDS: Heparin Injection (Vial) 5,000 UNIT/ML VIAL 5000 UNIT SC ×3 (05:38→22:14)
[2021-09-27 06:00] LABS: Absolute Lymphocyte Count 1.38 X10^3/uL (0.83-4.51); Basophil# 0.05 X10^3/uL; Basophil% 0.5 % (0-1); Eosinophil# 0.09 X10^3/uL; Eosinophils% 0.8 % (0-5); Hematocrit 35.6 % (40-54); Hemoglobin 12.7 g/dL (13.0-16.5); Lymphocyte # 1.38 X10^3/ul (0.83-4.51); Mean Corp Hgb Conc 35.7 g/dL (32-36); Mean Corpuscular Hgb 32.8 pg (27.0-32.0); Mean Platelet Vol. 9.7 fl (6.2-12.0); Monocyte# 0.83 X10^3/uL; Monocyte% 7.8 % (0-10); NRBC Flagged by Analyzer 0 % (0-5); Neutrophil # 7.96 X10^3/uL (2.7-7.7); Neutrophil % 75.1 % (47-70); Platelet Count 389 K/mm3 (150-450); RBC Distribution Width CV 14.2 % (11.6-14.6); RBC Distribution Width SD 47.7 fl (35.1-43.9); Red Blood Count 3.87 M/mm3 (4.6-6.2); White Blood Count 10.6 K/mm3 (4.4-11.0)
[2021-09-27 06:35] LABS: Anion Gap 4 (5-15); BUN 9 mg/dL (7-18); BUN/Creat Ratio 18.5 RATIO (10-20); Chloride 110 mmol/L (98-107); Creatinine, Serum 0.49 mg/dL (0.70-1.30); EST Glomerular Filtration Rate 185 mL/min (>60); Est Glom Filt Rate - Afr Amer 223 mL/min (>60); Glucose 128 mg/dL (74-106); Magnesium 2.3 mg/dL (1.6-2.6); Potassium 3.4 mmol/L (3.5-5.1); Sodium Level 141 mmol/L (136-145)
[2021-09-27] MEDS: Ipratropium/Albuterol Sulfate 3 ML AMPUL.NEB INHALATION ×3 (07:13→18:51)
--- NOTE | 2021-09-27 07:17 | PCM.PN.SRG ---
Subjective Subjective Patient seen and examined during AM rounds. He confirms nursing reports that he had diarrhea overnight. He reports that he is feeling somewhat better this morning. However earlier this morning he does complain that he had he requested know whether he can have food today. Seen and examined later in the morning, patient states that he is continued to have abdominal discomfort which she describes as gas pains. He also states that he is belched and had a very sour taste. Fortunately, he is able to report that he has passed some flatus. Objective Data Objective Data Vital Signs: Vital Signs Temp Pulse Resp BP Pulse Ox 98.2 F 94 92 H 136/83 H 92 09/27/21 03:00 09/27/21 07:13 09/27/21 07:13 09/27/21 03:00 09/27/21 07:13 Oxygen Flow Rate (L/min) [At 2 REST with Oxygen] Oxygen Flow Rate (L/min) 2 Oxygen Delivery Method Nasal Cannula Weight: 232 lb 2.348 oz Body Mass Index (BMI) 28.3 Intake & Output: Intake and Output for Last 24 Hours 09/25/21 09/26/21 09/27/21 23:59 23:59 23:59 Intake Total 4849.42 / 4849.42 2021.16 / 2021.16 50 / 50 Output Total 1435 / 1435 1690 / 1690 85 / 85 Balance 3414.42 / 3414.42 331.16 / 331.16 -35 / -35 Lab / Micro Data Result Diagrams: 09/27/21 05:48 09/27/21 05:48 Labs: Laboratory Results - last 24 hr 09/27/21 05:48: WBC 10.6, RBC 3.87 L, Hgb 12.7 L, Hct 35.6 L, MCV 92.0, MCH 32.8 H, MCHC 35.7, RDW Std Deviation 47.7 H, RDW Coeff of Ar 14.2, Plt Count 389, MPV 9.7, Immature Gran % (Auto) 2.800 H, Neut % (Auto) 75.1 H, Lymph % (Auto) 13.0 L, [place] % (Auto) 7.8, Eos % (Auto) 0.8, Baso % (Auto) 0.5, Absolute Neuts (auto) 8.0 H, Absolute Lymphs (auto) 1.38, Nucleated RBC % 0 09/27/21 05:48: Sodium 141, Potassium 3.4 L, Chloride 110 H, Carbon Dioxide 27.0, Anion Gap 4 L, BUN 9, Creatinine 0.49 L, Estim Creat Clear Calc 191.90, Est GFR (MDRD) Af Amer 223, Est GFR (MDRD) Non-Af 185, BUN/Creatinine Ratio 18.5, Glucose 128 H, Calcium 7.0 L, Phosphorus 2.0 L, Magnesium 2.3 Micro: Microbiology 09/21/21 01:18 Nasal Secretion SARS-CoV-2 Antigen (Rapid) - Final Radiography Diagnostic Testing: Radiology Impression KUB X-Ray 09/26/21 14:13 IMPRESSION: Findings suggestive of an ileus gas pattern. A drainage catheter seen in the right lower quadrant. Electronically Signed: Sourav Rodriguez MD at 15:07 EST Reading Location ID and State: [address] [place] [address] , Service support , Physical Exam Const Constitutional Narrative: Appears uncomfortable Resp normal respiratory effort Resp Narrative: Incentive spirometry demonstrated patient is able to pull 2250 mL vital capacity GI GI Narrative: Distended, tender to palpation over incisions and right upper quadrant. Incisions remain covered with Steri-Strips and there is no surrounding erythema or drainage. Left lower quadrant drain with thin red-brown drainage Assessment & Plan Assessment/Plan (1) S/P laparoscopic appendectomy: PLAN: Patient required return to the OR on 09/24/2021 after pathology reported they did not identify appendix in the patient's surgical specimen from 09/21/2021. Therefore, patient is postoperative day 3 from hand-assisted laparoscopic appendectomy with drain placement. Patient continues to have some abdominal discomfort from increased abdominal distention despite several loose bowel movements overnight. Given the appearance of ileus on exam and with KUB, he was returned to an n.p.o. status. Although patient did have 2 bowel movements overnight, his bowel function appears to be intermittent and he remains distended. Hypokalemia to be replaced with IV potassium chloride 40 M EQ's today. Patient initially had issues with urinary retention, but this is resolved. Laboratories, again, demonstrate stable hemoglobin and normalization of the WBC. Neuro: As needed Dilaudid, oxycodone 5 mg every 6 hours, scheduled Toradol Pulm/CV: Supplemental O2 as needed; wean as able, DuoNebs every 6 hours while awake, diuresing to see if this will decrease the oxygen requirement, telemetry FEN/GI: Continue to monitor BMP while patient's diet is restricted, replace potassium today, n.p.o. except sips and chips Heme/ID: Hemoglobin stable postop, continue Zosyn given contamination of the case, leukocytosis resolved Endo: No current issues Proph: SCDs, patient encouraged to ambulate Dispo: Continue inpatient care (2) Appendicitis with perforation: PLAN: Postoperative ileus that was previously anticipated has now occurred
[2021-09-27] MEDS: Doxazosin 1 MG Tablet PO (08:55)
[2021-09-27] MEDS: 0.9% Normal Saline 1,000 ML 75 ML IV (11:20)
--- NOTE | 2021-09-27 11:44 | RAD_ITS ---
STUDY: X-RAY - ABDOMEN/PELVIS REASON FOR EXAM: Male, 61 years old. Progressive ab distention POD 3 TECHNIQUE: Single AP view of the abdomen / pelvis. COMPARISON: Comparison is made with prior study dated 09/26/2021. FINDINGS: Mild increased markings at the lung bases suggestive of atelectasis. There is an unremarkable bowel gas pattern. The visualized liver, spleen and kidneys are grossly normal in size and morphology. A drainage catheter seen in the lower abdomen. An ostomy is seen in the left lower quadrant. Prior laminectomy fusion of the lumbar spine. RAD/Abdomen Single View (Portable) IMPRESSION: Nonspecific bowel gas pattern. Electronically Signed: Sourav Rodriguez MD at 15:07 EST ,
--- NOTE | 2021-09-27 11:45 | CASEMGMT ---
RN CM in to pt room to discuss dc planning. Discussed that therapy is recommending additional therapy. Pt states he has a [employer] gym and he just needs exercises printed. Asked if he has been provided with a handout, he states he has. He denies need for therapy in the home or nursing. Pt asks questions regarding finances. Offered to give the phone number to [facility]. She states she would like to speak to the worker on the floor that deals with this and she has already brought this up. Notified CLAIMS ANALYST. She also states pt has been in and out of rehab units and would like pt to go to a rehab. Made them aware that pt going home without therapy and going to rehab are two different end of the spectrums for dc disposition. Pt states that he wants to go home and has no idea what his is talking about. He reports she has a disability. She offers information regarding this. Pt does need a FWW, green sheet on the chart for this. CM spoke with therapy who states pt would benefit from walker. States could benefit from inpt rehab but is most likely at baseline functioning as he is now for some time. Pt prefers to dc home, no further needs. Pt/ aware to notify CM should they decide differently.
--- NOTE | 2021-09-27 12:56 | CASEMGMT ---
Addendum entered by Kayla Bernard 09/27/21 13:50: SW back in to speak with pt. Pt confirms he has financial concerns stating that he just wants to know who he can reach out to if he has concerns regarding his finances. SW spoke with pt regarding about [facility] and that if he gets a bill from [facility] there will be contact information to call [facility] to discuss payment plans if needed. SW asked pt if he had applied for Medicaid before. Pt states he has but it has been a while. SW encouraged pt to reapply for Medicaid as his finances may have changed. SW provided pt with additional financial resources including HCAP application, Medicaid Application, [place] [id number], [employer] and prescription assistance resources. Pt thanked this worker, denied additional needs or concerns at this time. Original Note: Social Work Note SW updated that pt has financial concerns. SW attempted to meet with pt, pt currently getting test. SW will attempt to meet with pt again as time allows to provide financial resources. Kayla Bernard ORGANIZATIONAL PSYCHOLOGIST, RESEARCH PROJECT COORDINATOR
[2021-09-27] MEDS: Potassium Chloride 10mEq/100mL 10 MEQ/100 ML IV.SOLN. 100 MEQ IV BOLUS ×4 (13:05→17:06)
[2021-09-27] MEDS: Ondansetron 4 MG/2 ML Vial IV (20:45)
[2021-09-27] MEDS: Calcium Carbonate 500 MG Tablet PO (20:45)
[2021-09-27] MEDS: Pramipexole Di-HCl 0.5 MG Tablet PO (22:14)
[2021-09-28] VITALS (12 sets, daily range): BP systolic 130–140; BP diastolic 70–85; PULSE 73–92; RESP 16–20; TEMP 36.7–36.9; O2SAT 94–97
[2021-09-28] MEDS: 0.9% Normal Saline 1,000 ML 75 ML IV ×2 (02:14→14:07)
[2021-09-28] MEDS: Heparin Injection (Vial) 5,000 UNIT/ML VIAL 5000 UNIT SC ×3 (05:06→22:12)
[2021-09-28 06:15] LABS: Absolute Lymphocyte Count 1.59 X10^3/uL (0.83-4.51); Absolute Neutrophil Count 8.3 X10^3/uL (2.0-7.7); Basophil# 0.07 X10^3/uL; Basophil% 0.6 % (0-1); Eosinophil# 0.09 X10^3/uL; Eosinophils% 0.8 % (0-5); Hematocrit 36.2 % (40-54); Lymphocyte # 1.59 X10^3/ul (0.83-4.51); Lymphocyte % 14.1 % (19-41); Mean Corp Hgb Conc 33.1 g/dL (32-36); Mean Corpuscular Hgb 32.3 pg (27.0-32.0); Mean Corpuscular Volume 97.6 fL (80-94); Mean Platelet Vol. 10.8 fl (6.2-12.0); Monocyte# 0.87 X10^3/uL; Monocyte% 7.7 % (0-10); NRBC Flagged by Analyzer 0 % (0-5); Neutrophil # 8.34 X10^3/uL (2.7-7.7); Platelet Count 272 K/mm3 (150-450); RBC Distribution Width CV 14.9 % (11.6-14.6); RBC Distribution Width SD 53.7 fl (35.1-43.9); Red Blood Count 3.71 M/mm3 (4.6-6.2); White Blood Count 11.3 K/mm3 (4.4-11.0)
[2021-09-28 06:47] LABS: Anion Gap 4 (5-15); BUN 9 mg/dL (7-18); BUN/Creat Ratio 18.6 RATIO (10-20); Calcium,Total 7.1 mg/dL (8.5-10.1); Chloride 108 mmol/L (98-107); Creatinine, Serum 0.48 mg/dL (0.70-1.30); EST Glomerular Filtration Rate 186 mL/min (>60); Est Glom Filt Rate - Afr Amer 225 mL/min (>60); Glucose 122 mg/dL (74-106); Magnesium 2.5 mg/dL (1.6-2.6); Phosphorus 2.6 mg/dL (2.5-4.9); Potassium 3.5 mmol/L (3.5-5.1); Sodium Level 136 mmol/L (136-145)
[2021-09-28] MEDS: Doxazosin 1 MG Tablet PO (09:17)
--- NOTE | 2021-09-28 09:52 | PN.SURG_ITS ---
Subjective Subjective Pain is improving. Still having significant amounts of diarrhea. Objective Data Objective Data No rebound guarding or peritoneal signs Vital Signs: Vital Signs Temp Pulse Resp BP Pulse Ox 98.1 F 87 16 131/77 H 95 09/28/21 09:20 09/28/21 09:33 09/28/21 09:20 09/28/21 09:20 09/28/21 09:20 Oxygen Flow Rate (L/min) [At 2 REST with Oxygen] Oxygen Flow Rate (L/min) 2 Oxygen Delivery Method Nasal Cannula Weight: 232 lb 2.348 oz Body Mass Index (BMI) 28.3 Intake & Output: Intake and Output for Last 24 Hours 09/26/21 09/27/21 09/28/21 23:59 23:59 23:59 Intake Total 2021.16 / 2021.16 1533.75 / 1533.75 1100 / 1100 Output Total 1690 / 1690 545 / 545 240 / 240 Balance 331.16 / 331.16 988.75 / 988.75 860 / 860 Lab / Micro Data Result Diagrams: 09/28/21 06:00 09/28/21 06:00 Labs: Laboratory Results - last 24 hr 09/28/21 06:00: WBC 11.3 H, RBC 3.71 L, Hgb 12.0 L, Hct 36.2 L, MCV 97.6 H D, MCH 32.3 H, MCHC 33.1 D, RDW Std Deviation 53.7 H, RDW Coeff of Ar 14.9 H, Plt Count 272, MPV 10.8, Immature Gran % (Auto) 2.800 H, Neut % (Auto) 74.0 H, Lymph % (Auto) 14.1 L, [place] % (Auto) 7.7, Eos % (Auto) 0.8, Baso % (Auto) 0.6, Absolute Neuts (auto) 8.3 H, Absolute Lymphs (auto) 1.59, Nucleated RBC % 0 09/28/21 06:00: Sodium 136, Potassium 3.5, Chloride 108 H, Carbon Dioxide 24.0, Anion Gap 4 L, BUN 9, Creatinine 0.48 L, Estim Creat Clear Calc 195.90, Est GFR (MDRD) Af Amer 225, Est GFR (MDRD) Non-Af 186, BUN/Creatinine Ratio 18.6, Glucose 122 H, Calcium 7.1 L, Phosphorus 2.6, Magnesium 2.5 Micro: Microbiology 09/21/21 01:18 Nasal Secretion SARS-CoV-2 Antigen (Rapid) - Final Radiography Diagnostic Testing: Radiology Impression KUB X-Ray 09/27/21 11:44 IMPRESSION: Nonspecific bowel gas pattern. Electronically Signed: Sourav Rodriguez MD at 15:07 EST , Assessment & Plan Assessment/Plan (1) S/P laparoscopic appendectomy: PLAN: We will check stool for C. difficile today.
[2021-09-28] MEDS: Ipratropium/Albuterol Sulfate 3 ML AMPUL.NEB INHALATION (20:12)
[2021-09-28] MEDS: Pramipexole Di-HCl 0.5 MG Tablet PO (22:12)
[2021-09-29] VITALS (7 sets, daily range): BP systolic 133–184; BP diastolic 79–100; PULSE 78–100; RESP 16–19; TEMP 36.6–36.8; O2SAT 92–96
[2021-09-29] MEDS: 0.9% Normal Saline 1,000 ML 75 ML IV (02:54)
[2021-09-29] MEDS: Heparin Injection (Vial) 5,000 UNIT/ML VIAL 5000 UNIT SC ×3 (04:56→21:18)
[2021-09-29] MEDS: Ipratropium/Albuterol Sulfate 3 ML AMPUL.NEB INHALATION (07:22)
[2021-09-29] MEDS: Doxazosin 1 MG Tablet PO (09:13)
[2021-09-29 10:24] LABS: Absolute Neutrophil Count 9.2 X10^3/uL (2.0-7.7); Basophil# 0.05 X10^3/uL; Basophil% 0.4 % (0-1); Eosinophil# 0.17 X10^3/uL; Eosinophils% 1.4 % (0-5); Hematocrit 34.2 % (40-54); Hemoglobin 12.4 g/dL (13.0-16.5); Lymphocyte % 12.6 % (19-41); Mean Corp Hgb Conc 36.3 g/dL (32-36); Mean Corpuscular Hgb 33.7 pg (27.0-32.0); Mean Corpuscular Volume 92.9 fL (80-94); Mean Platelet Vol. 9.5 fl (6.2-12.0); Monocyte# 0.75 X10^3/uL; Monocyte% 6.3 % (0-10); NRBC Flagged by Analyzer 0 % (0-5); Neutrophil # 9.19 X10^3/uL (2.7-7.7); Platelet Count 454 K/mm3 (150-450); RBC Distribution Width CV 14.1 % (11.6-14.6); RBC Distribution Width SD 48.1 fl (35.1-43.9); Red Blood Count 3.68 M/mm3 (4.6-6.2); White Blood Count 11.9 K/mm3 (4.4-11.0)
[2021-09-29 10:44] LABS: ALB/GLOB Ratio 0.5 RATIO (0.9-2.4); AST(SGOT) 36 U/L (15-37); Alanine Aminotransfer ALT/SGPT 34 U/L (16-61); Albumin, Serum 1.7 g/dL (3.2-5.0); Alkaline Phosphatase 75 U/L (45-117); Anion Gap 5 (5-15); BUN 4 mg/dL (7-18); BUN/Creat Ratio 7.1 RATIO (10-20); Calcium,Total 7.4 mg/dL (8.5-10.1); Chloride 107 mmol/L (98-107); Creatinine, Serum 0.56 mg/dL (0.70-1.30); EST Glomerular Filtration Rate 156 mL/min (>60); Est Glom Filt Rate - Afr Amer 189 mL/min (>60); Estimated Creatinine Clearance 167.92 ml/min; Globulin 3.6 g/dL (2.2-4.2); Glucose 155 mg/dL (74-106); Potassium 3.2 mmol/L (3.5-5.1); Protein, Total 5.3 g/dL (6.4-8.2); Sodium Level 137 mmol/L (136-145)
--- NOTE | 2021-09-29 10:45 | PN.SURG_ITS ---
Subjective Subjective No complaints of abdominal pain. Objective Data Objective Data Abdomen is soft. Significant amount of foul-smelling discharge from KELLY drain. Vital Signs: Vital Signs Temp Pulse Resp BP Pulse Ox 98.2 F 98 16 184/96 H 94 09/29/21 09:24 09/29/21 09:24 09/29/21 09:24 09/29/21 09:24 09/29/21 09:24 Oxygen Flow Rate (L/min) [At 2 REST with Oxygen] Oxygen Flow Rate (L/min) 2 Oxygen Delivery Method Nasal Cannula Weight: 232 lb 2.348 oz Body Mass Index (BMI) 28.3 Intake & Output: Intake and Output for Last 24 Hours 09/27/21 09/28/21 09/29/21 23:59 23:59 23:59 Intake Total 1533.75 / 1533.75 2291.75 / 2291.75 1183.25 / 1183.25 Output Total 545 / 545 270 / 270 20 / 20 Balance 988.75 / 988.75 2021.75 / 2021.75 1163.25 / 1163.25 Lab / Micro Data Result Diagrams: 09/29/21 10:10 09/29/21 10:10 Labs: Laboratory Results - last 24 hr 09/29/21 10:10: WBC 11.9 H, RBC 3.68 L, Hgb 12.4 L, Hct 34.2 L, MCV 92.9, MCH 33.7 H, MCHC 36.3 H D, RDW Std Deviation 48.1 H, RDW Coeff of Ar 14.1, Plt Count 454 H, MPV 9.5, Immature Gran % (Auto) 2.300 H, Neut % (Auto) 77.0 H, Lymph % (Auto) 12.6 L, [place] % (Auto) 6.3, Eos % (Auto) 1.4, Baso % (Auto) 0.4, Absolute Neuts (auto) 9.2 H, Absolute Lymphs (auto) 1.50, Nucleated RBC % 0 09/29/21 10:10: Sodium 137, Potassium 3.2 L, Chloride 107, Carbon Dioxide 25.0, Anion Gap 5, BUN 4 L, Creatinine 0.56 L, Estim Creat Clear Calc 167.92, Est GFR (MDRD) Af Amer 189, Est GFR (MDRD) Non-Af 156, BUN/Creatinine Ratio 7.1 L, Glucose 155 H, Calcium 7.4 L, Total Bilirubin 0.40, AST 36, ALT 34, Alkaline Phosphatase 75, Total Protein 5.3 L, Albumin 1.7 L, Globulin 3.6, [place] min/Globulin Ratio 0.5 L Micro: Microbiology 09/29/21 05:45 Stool Enteric Bacteriology - Final 09/28/21 15:40 Stool Stool Lactoferrin - Final 09/28/21 15:40 Stool C. difficile DNA Amplification - Final 09/21/21 01:18 Nasal Secretion SARS-CoV-2 Antigen (Rapid) - Final Assessment & Plan Assessment/Plan (1) S/P laparoscopic appendectomy: PLAN: White count still remains elevated. Concerned about the foul-smelling discharge. I am not going to remove the KELLY normal I going to discharge him today. Might need to have a repeat CAT scan done tomorrow.
[2021-09-29] MEDS: Potassium Chloride Oral Tablet 20 MEQ 40 MEQ PO (12:10)
[2021-09-29] MEDS: Ensure Clear 120 ML Liquid PO ×2 (12:42→17:02)
[2021-09-29] MEDS: 0.9% Normal Saline 1,000 ML 100 ML IV (16:14)
[2021-09-29] MEDS: Pramipexole Di-HCl 0.5 MG Tablet PO (21:19)
[2021-09-30 03:01] VITALS: BP 149/95; PULSE 88; RESP 16; TEMP 36.8; O2SAT 94
[2021-09-30] MEDS: 0.9% Normal Saline 1,000 ML 100 ML IV ×2 (03:16→21:08)
[2021-09-30 05:54] LABS: Absolute Neutrophil Count 10.7 X10^3/uL (2.0-7.7); Basophil# 0.03 X10^3/uL; Basophil% 0.2 % (0-1); Eosinophil# 0.17 X10^3/uL; Eosinophils% 1.3 % (0-5); Hematocrit 33.4 % (40-54); Hemoglobin 11.6 g/dL (13.0-16.5); Lymphocyte % 10.4 % (19-41); Mean Corp Hgb Conc 34.7 g/dL (32-36); Mean Corpuscular Hgb 32.2 pg (27.0-32.0); Mean Corpuscular Volume 92.8 fL (80-94); Mean Platelet Vol. 9.5 fl (6.2-12.0); Monocyte# 0.91 X10^3/uL; Monocyte% 6.8 % (0-10); NRBC Flagged by Analyzer 0 % (0-5); Neutrophil # 10.71 X10^3/uL (2.7-7.7); Neutrophil % 79.4 % (47-70); Platelet Count 458 K/mm3 (150-450); RBC Distribution Width CV 14.5 % (11.6-14.6); White Blood Count 13.5 K/mm3 (4.4-11.0)
[2021-09-30 06:27] LABS: Anion Gap 6 (5-15); BUN 2 mg/dL (7-18); BUN/Creat Ratio 4.3 RATIO (10-20); Calcium,Total 7.2 mg/dL (8.5-10.1); Chloride 108 mmol/L (98-107); Creatinine, Serum 0.47 mg/dL (0.70-1.30); EST Glomerular Filtration Rate 194 mL/min (>60); Est Glom Filt Rate - Afr Amer 235 mL/min (>60); Estimated Creatinine Clearance 200.07 ml/min; Glucose 123 mg/dL (74-106); Magnesium 2.2 mg/dL (1.6-2.6); Phosphorus 2.6 mg/dL (2.5-4.9); Potassium 3.2 mmol/L (3.5-5.1); Sodium Level 140 mmol/L (136-145)
--- NOTE | 2021-09-30 06:42 | CT_ITS ---
STUDY: CT ABDOMEN AND PELVIS WITH CONTRAST REASON FOR EXAM: Male, 61 years old. Rising WBC s/p perforated appendicitis/appendectom RADIATION DOSAGE (If Supplied By Facility): CTDIvol = ( 21.37 ) mGy, DLP = ( 1916.92 ) mGycm TECHNIQUE: Transaxial images were obtained from the dome of the diaphragm to the symphysis pubis with oral contrast. Oral and amp; IV Gastrografin and amp; 100mL Isovue-300 was administered. Sagittal and coronal images were reconstructed. Individualized dose optimization techniques were used for this CT. COMPARISON: Comparison is made with prior study dated 09/20/2021. FINDINGS: Small bilateral pleural effusions right greater than left with basilar atelectasis. Coronary artery calcification. Normal liver. Normal gallbladder and extrahepatic biliary system. Normal spleen. There is diffuse atrophy of the pancreas. Normal bilateral adrenal glands. Stable bilateral renal cysts. Normal visualized stomach. There is evidence of circumferential wall thickening of the terminal ileum suggestive of a inflammatory change. No focal fluid collection is seen within the pelvis. Normal colon. The patient is status post appendectomy. Residual increased markings are seen in the surrounding peritoneal fat. A drainage catheter is seen with the tip in the right lower quadrant. Normal abdominal aorta. Normal inferior vena cava. Normal retroperitoneum. There is a 2.8 cm diverticulum in the posterior left lateral wall of the urinary bladder. Tiny air bubbles are seen in the anterior aspect of the urinary bladder most likely secondary to prior MUNOZ catheter manipulation. Normal abdominal wall. There are diffuse degenerative changes of the visualized lumbar spine. Prior laminectomy and fusion in the lower lumbar CT/Abdomen/Pelvis WITH Contrast IMPRESSION: Postsurgical changes seen in the right lower quadrant with a drainage catheter seen in the right lower quadrant. Residual thickening of the terminal ileum most likely related to the inflammatory change. Stable bilateral renal cysts. Small bilateral pleural effusions right greater than left with bibasilar atelectasis. Electronically Signed: Sourav Rodriguez MD at 14:25 EST ,
--- NOTE | 2021-09-30 07:22 | PN.SURG_ITS ---
Subjective Subjective Patient is seen and examined during AM rounds. He initially reports that he is feeling much better. white blood cell count However, as a informed him that his has risen he becomes very discouraged and declares I do not know if I can do this. He does state that he showered yesterday and had a bowel movement alr joslyn this morning. He remains n.p.o. since midnight in anticipation of a CT scan and possible intervention. Objective Data Objective Data Vital Signs: Vital Signs Temp Pulse Resp BP Pulse Ox 98.3 F 88 16 149/95 H 94 09/30/21 03:01 09/30/21 03:01 09/30/21 03:01 09/30/21 03:01 09/30/21 03:01 Oxygen Flow Rate (L/min) [At 2 REST with Oxygen] Oxygen Flow Rate (L/min) 3 Oxygen Delivery Method Room Air Weight: 232 lb 2.348 oz Body Mass Index (BMI) 28.3 Intake & Output: Intake and Output for Last 24 Hours 09/28/21 09/29/21 09/30/21 23:59 23:59 23:59 Intake Total 2291.75 / 2291.75 2438.25 / 2438.25 1300 / 1300 Output Total 270 / 270 350 / 350 1050 / 1050 Balance 2021.75 / 2021.75 2088.25 / 2088.25 250 / 250 Lab / Micro Data Result Diagrams: 09/30/21 05:20 09/30/21 05:20 Labs: Laboratory Results - last 24 hr 09/29/21 10:10: WBC 11.9 H, RBC 3.68 L, Hgb 12.4 L, Hct 34.2 L, MCV 92.9, MCH 33.7 H, MCHC 36.3 H D, RDW Std Deviation 48.1 H, RDW Coeff of Ar 14.1, Plt Count 454 H, MPV 9.5, Immature Gran % (Auto) 2.300 H, Neut % (Auto) 77.0 H, Lymph % (Auto) 12.6 L, Ballard % (Auto) 6.3, Eos % (Auto) 1.4, Baso % (Auto) 0.4, Absolute Neuts (auto) 9.2 H, Absolute Lymphs (auto) 1.50, Nucleated RBC % 0 09/29/21 10:10: Sodium 137, Potassium 3.2 L, Chloride 107, Carbon Dioxide 25.0, Anion Gap 5, BUN 4 L, Creatinine 0.56 L, Estim Creat Clear Calc 167.92, Est GFR (MDRD) Af Amer 189, Est GFR (MDRD) Non-Af 156, BUN/Creatinine Ratio 7.1 L, Glucose 155 H, Calcium 7.4 L, Total Bilirubin 0.40, AST 36, ALT 34, Alkaline Phosphatase 75, Total Protein 5.3 L, Albumin 1.7 L, Globulin 3.6, Albumin/Globulin Ratio 0.5 L 09/30/21 05:20: WBC 13.5 H, RBC 3.60 L, Hgb 11.6 L, Hct 33.4 L, MCV 92.8, MCH 32.2 H, MCHC 34.7, RDW Std Deviation 49.0 H, RDW Coeff of Ar 14.5, Plt Count 458 H, MPV 9.5, Immature Gran % (Auto) 1.900 H, Neut % (Auto) 79.4 H, Lymph % (Auto) 10.4 L, Ballard % (Auto) 6.8, Eos % (Auto) 1.3, Baso % (Auto) 0.2, Absolute Neuts (auto) 10.7 H, Absolute Lymphs (auto) 1.40, Nucleated RBC % 0 09/30/21 05:20: Sodium 140, Potassium 3.2 L, Chloride 108 H, Carbon Dioxide 26.0, Anion Gap 6, BUN 2 L, Creatinine 0.47 L, Estim Creat Clear Calc 200.07, Est GFR (MDRD) Af Amer 235, Est GFR (MDRD) Non-Af 194, BUN/Creatinine Ratio 4.3 L, Glucose 123 H, Calcium 7.2 L, Phosphorus 2.6, Magnesium 2.2 Micro: Microbiology 09/29/21 05:45 Stool Enteric Bacteriology - Final 09/28/21 15:40 Stool Stool Lactoferrin - Final 09/28/21 15:40 Stool C. difficile DNA Amplification - Final 09/21/21 01:18 Nasal Secretion SARS-CoV-2 Antigen (Rapid) - Final Physical Exam Const Constitutional Narrative: In mild distress from hearing news of his labs. Otherwise relaxed Resp normal respiratory effort GI GI Narrative: Nondistended, soft, mildly tender to palpation in the right lower quadrant. Left lower quadrant abdominal drain with brown, malodorous discharge Assessment & Plan Assessment/Plan (1) S/P laparoscopic appendectomy: PLAN: Patient required return to the OR on 09/24/2021 after pathology reported they did not identify appendix in the patient's surgical specimen from 09/21/2021. Therefore, patient is postoperative day 6 from hand-assisted laparoscopic appendectomy with drain placement. Unfortunately, patient appears to have evidence of a staple line leak versus controlled perforation with feculent output to drain and rising white count. CT of the abdomen and pelvis was obtained today and shows some nonspecific postsurgical changes as well as some locules of gas at the terminus of the post op drain. I have held the patient n.p.o. and initiated TPN. We will see what his white count and drain output due tomorrow, but I have advised him that additional surgical intervention may be necessary. Significantly, patient's abdominal comfort is nearly resolved with only mild tenderness in the right lower quadrant. Continues to have loose stools hypokalemia to be replaced with IV potassium chloride 40 M EQ's today. Neuro: As needed Dilaudid, oxycodone 5 mg every 6 hours Pulm/CV: Supplemental O2 as needed; wean as able, DuoNebs every 6 hours while awake, diuresing to see if this will decrease the oxygen requirement, telemetry FEN/GI: N.p.o. with TPN Heme/ID: Hemoglobin stable postop, continue Zosyn given concern for ongoing drain output representing potential ongoing contamination. Drain effluent cultured and we are awaiting the results to determine if Zosyn is adequate. Repeat CBC to trend patient's WBC. Endo: No current issues Proph: SCDs, patient encouraged to ambulate Dispo: Continue inpatient care (2) Appendicitis with perforation: PLAN: Status post above operative course Charges/Coding Visit Charges Inpatient E&M: 86156 Subs Hosp L2
[2021-09-30 08:49] VITALS: BP 146/81; PULSE 96; RESP 18; TEMP 36.8; O2SAT 93
[2021-09-30] MEDS: Potassium Chloride 10mEq/100mL 10 MEQ/100 ML IV.SOLN. 100 MEQ IV BOLUS ×4 (09:01→12:54)
[2021-09-30 13:35] VITALS: O2SAT 93
[2021-09-30] MEDS: Heparin Injection (Vial) 5,000 UNIT/ML VIAL 5000 UNIT SC ×2 (14:28→21:57)
[2021-09-30 14:53] VITALS: BP 158/83; PULSE 91; RESP 18; TEMP 36.7; O2SAT 94
[2021-09-30] MEDS: TPN - Clinimix E 8%-14% Soln 2,000 ML with Multivitamins 10 ML, Trace Elements 1 ML, Fo... 42 ML IV (16:13)
[2021-09-30] MEDS: 0.9% Saline Lock 10 ML Syringe IV (16:13)
--- NOTE | 2021-09-30 17:10 | RAD_ITS ---
STUDY: X-RAY CHEST REASON FOR EXAM: Male, 61 years old. PICC Line placement TECHNIQUE: Single AP portable view of the chest. COMPARISON: None. FINDINGS: A right-sided PICC line has been placed, tip is in the distal SVC. Chronic interstitial changes in both lung fajardo without a superimposed acute pulmonary process. Fibrotic scarring or atelectasis in the medial right lung base. Normal size heart. Normal mediastinum and oscar. Normal visualized pulmonary arteries. Normal visualized aortic arch and descending thoracic aorta. Normal visualized thoracic spine. Normal visualized ribs, clavicles, and shoulders. There is no demonstrated abnormality of the visualized soft tissue structures of the upper abdomen. RAD/CXR for Line Placement IMPRESSION: Chronic interstitial changes without a superimposed acute pulmonary process Right-sided PICC line has been placed, tip is in the distal SVC Electronically Signed: Js Bliss MD at 17:28 EST ,
[2021-09-30 17:53] LABS: AST(SGOT) 36 U/L (15-37); Alanine Aminotransfer ALT/SGPT 33 U/L (16-61); Albumin, Serum 1.7 g/dL (3.2-5.0); Alkaline Phosphatase 68 U/L (45-117); Bilirubin, Direct 0.18 mg/dL (0.00-0.30); Globulin 3.3 g/dL (2.2-4.2); Triglycerides 110 mg/dL
[2021-09-30 18:20] LABS: Bedside Glucose 126 mg/dL (70-110)
[2021-09-30 21:57] VITALS: BP 154/95; PULSE 85; RESP 18; TEMP 36.7; O2SAT 94
[2021-10-01] MEDS: Heparin Injection (Vial) 5,000 UNIT/ML VIAL 5000 UNIT SC ×3 (05:46→21:05)
[2021-10-01 05:55] LABS: Bedside Glucose 152 mg/dL (70-110)
[2021-10-01 06:35] LABS: ALB/GLOB Ratio 0.5 RATIO (0.9-2.4); AST(SGOT) 54 U/L (15-37); Alanine Aminotransfer ALT/SGPT 45 U/L (16-61); Albumin, Serum 1.9 g/dL (3.2-5.0); Alkaline Phosphatase 75 U/L (45-117); Anion Gap 5 (5-15); BUN 4 mg/dL (7-18); BUN/Creat Ratio 6.7 RATIO (10-20); Calcium,Total 7.9 mg/dL (8.5-10.1); Chloride 109 mmol/L (98-107); EST Glomerular Filtration Rate 146 mL/min (>60); Est Glom Filt Rate - Afr Amer 176 mL/min (>60); Estimated Creatinine Clearance 156.72 ml/min; Globulin 3.8 g/dL (2.2-4.2); Glucose 143 mg/dL (74-106); Magnesium 1.9 mg/dL (1.6-2.6); Phosphorus 2.3 mg/dL (2.5-4.9); Potassium 3.3 mmol/L (3.5-5.1); Protein, Total 5.7 g/dL (6.4-8.2); Sodium Level 139 mmol/L (136-145)
[2021-10-01] MEDS: Ipratropium/Albuterol Sulfate 3 ML AMPUL.NEB INHALATION (07:10)
[2021-10-01 07:13] VITALS: PULSE 84; RESP 16
[2021-10-01 08:00] VITALS: BP 176/97; PULSE 103; RESP 18; TEMP 36.7; O2SAT 93
[2021-10-01 08:27] LABS: Basophil# 0.05 X10^3/uL; Basophil% 0.4 % (0-1); Eosinophil# 0.13 X10^3/uL; Hematocrit 35.8 % (40-54); Hemoglobin 12.5 g/dL (13.0-16.5); Mean Corp Hgb Conc 34.9 g/dL (32-36); Mean Corpuscular Volume 94.5 fL (80-94); Mean Platelet Vol. 9.5 fl (6.2-12.0); Monocyte# 0.89 X10^3/uL; Monocyte% 6.7 % (0-10); NRBC Flagged by Analyzer 0 % (0-5); Neutrophil # 10.95 X10^3/uL (2.7-7.7); Neutrophil % 81.7 % (47-70); Platelet Count 527 K/mm3 (150-450); RBC Distribution Width CV 14.4 % (11.6-14.6); RBC Distribution Width SD 50.2 fl (35.1-43.9); Red Blood Count 3.79 M/mm3 (4.6-6.2); White Blood Count 13.4 K/mm3 (4.4-11.0)
--- NOTE | 2021-10-01 08:55 | PCM.PN.SRG ---
Subjective Subjective Patient seen and examined during AM rounds. He is found lying in bed, but states that his right lower quadrant abdominal pain is totally dissipated. He states that he is hungry but he denies any nausea or vomiting. Objective Data Objective Data Vital Signs: Vital Signs Temp Pulse Resp BP Pulse Ox 98.1 F 84 16 154/95 H 94 09/30/21 21:57 10/01/21 07:13 10/01/21 07:13 09/30/21 21:57 09/30/21 21:57 Oxygen Flow Rate (L/min) [At 2 REST with Oxygen] Oxygen Flow Rate (L/min) 3 Oxygen Delivery Method Room Air Weight: 234 lb 9.149 oz Body Mass Index (BMI) 28.3 Intake & Output: Intake and Output for Last 24 Hours 09/29/21 09/30/21 10/01/21 23:59 23:59 23:59 Intake Total 2438.25 / 2438.25 2801.75 / 2801.75 50 / 50 Output Total 350 / 350 2255 / 2255 Balance 2088.25 / 2088.25 546.75 / 546.75 50 / 50 Lab / Micro Data Result Diagrams: 10/01/21 05:43 10/01/21 05:43 Labs: Laboratory Results - last 24 hr 09/30/21 05:20: Total Bilirubin 0.40, Direct Bilirubin 0.18, AST 36, ALT 33, Alkaline Phosphatase 68, Total Protein 5.0 L, Albumin 1.7 L, Globulin 3.3, Triglycerides 110 09/30/21 18:14: POC Glucose 126 H 10/01/21 05:43: Sodium 139, Potassium 3.3 L, Chloride 109 H, Carbon Dioxide 25.0, Anion Gap 5, BUN 4 L, Creatinine 0.60 L, Estim Creat Clear Calc 156.72, Est GFR (MDRD) Af Amer 176, Est GFR (MDRD) Non-Af 146, BUN/Creatinine Ratio 6.7 L, Glucose 143 H, Calcium 7.9 L, Phosphorus 2.3 L, Magnesium 1.9, Total Bilirubin 0.50, AST 54 H, ALT 45, Alkaline Phosphatase 75, Total Protein 5.7 L, Albumin 1.9 L, Globulin 3.8, Albumin/Globulin Ratio 0.5 L 10/01/21 05:43: WBC 13.4 H, RBC 3.79 L, Hgb 12.5 L, Hct 35.8 L, MCV 94.5 H, MCH 33.0 H, MCHC 34.9, RDW Std Deviation 50.2 H, RDW Coeff of Ar 14.4, Plt Count 527 H, MPV 9.5, Immature Gran % (Auto) 1.200 H, Neut % (Auto) 81.7 H, Lymph % (Auto) 9.0 L, Pennington % (Auto) 6.7, Eos % (Auto) 1.0, Baso % (Auto) 0.4, Absolute Neuts (auto) 11.0 H, Absolute Lymphs (auto) 1.20, Nucleated RBC % 0 10/01/21 05:45: POC Glucose 152 H Micro: Microbiology 09/30/21 13:05 Mario Samuel Drainage Gram Stain - Final 09/29/21 05:45 Stool Enteric Bacteriology - Final 09/28/21 15:40 Stool Stool Lactoferrin - Final 09/28/21 15:40 Stool C. difficile DNA Amplification - Final 09/21/21 01:18 Nasal Secretion SARS-CoV-2 Antigen (Rapid) - Final Radiography Diagnostic Testing: Radiology Impression Abdomen/Pelvis CT 09/30/21 06:42 IMPRESSION: Postsurgical changes seen in the right lower quadrant with a drainage catheter seen in the right lower quadrant. Residual thickening of the terminal ileum most likely related to the inflammatory change. Stable bilateral renal cysts. Small bilateral pleural effusions right greater than left with bibasilar atelectasis. Electronically Signed: Sourav Rodriguez MD at 14:25 EST , Chest X-Ray 09/30/21 17:10 IMPRESSION: Chronic interstitial changes without a superimposed acute pulmonary process Right-sided PICC line has been placed, tip is in the distal SVC Electronically Signed: Js Bliss MD at 17:28 EST , Physical Exam Const oriented x3 and no apparent distress Resp normal respiratory effort GI GI Narrative: Nondistended, Steri-Strips remain intact. There is no serous drainage from the patient's supraumbilical port site. Patient's left lower quadrant drain output persists is a light brown malodorous character. There is no tenderness even with deep palpation of all 4 abdominal quadrants. Assessment & Plan Assessment/Plan (1) S/P laparoscopic appendectomy: PLAN: Patient required return to the OR on 09/24/2021 after pathology reported they did not identify appendix in the patient's surgical specimen from 09/21/2021. Therefore, patient is postoperative day 7 from hand-assisted laparoscopic appendectomy with drain placement. Unfortunately, patient appears to have evidence of a staple line leak versus controlled perforation with feculent output to drain and elevated white count. CT of the abdomen and pelvis was obtained yesterday and shows some nonspecific postsurgical changes as well as some locules of gas at the terminus of the post op drain. I have held the patient n.p.o. and initiated TPN. Patient's white count stabilized today, but after in-depth conversations related to possible management options, the patient is against conservative management with a prolonged n.p.o. status and wishes to be more aggressive. Therefore, we have jointly decided to pursue open ileocecectomy tomorrow. Today, we will perform a drainogram in conjunction with CT in order to facilitate preoperative planning. Neuro: As needed Dilaudid, oxycodone 5 mg every 6 hours Pulm/CV: Supplemental O2 as needed; wean as able, DuoNebs every 6 hours while awake, diuresing to see if this will decrease the oxygen requirement, telemetry FEN/GI: N.p.o. with TPN Heme/ID: Hemoglobin stable postop, continue Zosyn given concern for ongoing drain output representing potential ongoing contamination. Drain effluent cultured and consistent with polymicrobial gayle. We are awaiting the results to determine if Zosyn is adequate. Repeat CBC to trend patient's WBC. Endo: No current issues Proph: SCDs, patient encouraged to ambulate Dispo: Continue inpatient care (2) Appendicitis with perforation: PLAN: Status post above operative course
[2021-10-01 11:09] VITALS: BP 157/86; PULSE 88; RESP 18; TEMP 36.8; O2SAT 93
[2021-10-01] MEDS: 0.9% Normal Saline 1,000 ML 75 ML IV (12:08)
[2021-10-01 12:11] LABS: Bedside Glucose 134 mg/dL (70-110)
--- NOTE | 2021-10-01 12:52 | CT_ITS ---
STUDY: CT ABDOMEN AND PELVIS WITHOUT CONTRAST REASON FOR EXAM: Male, 61 years old. ABSCESS RADIATION DOSAGE (If Supplied By Facility): CTDIvol = ( 22.2 ) mGy, DLP = ( 726.27 ) mGycm TECHNIQUE: Transaxial images were obtained from the dome of the diaphragm to the symphysis pubis without oral contrast, and without intravenous contrast. Sagittal and coronal images were reconstructed. Individualized dose optimization techniques were used for this CT. COMPARISON: Comparison is made with prior examination dated 09/22/2021. FINDINGS: A mixture of GASTROGRAFIN and saline was injected into the indwelling drainage catheter with the tip in the right lower quadrant at the operative site. There is a collection of extraluminal contrast with air adjacent in the medial aspect of the operative site. A tiny fistula is seen entering the terminal ileum. The terminal ileum is diffusely thickened and irregular in appearance. 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 Electronically Signed: Sourav Rodriguez MD at 14:43 EST ,
--- NOTE | 2021-10-01 13:31 | NURSING ---
Pt off of floor to CT scan
--- NOTE | 2021-10-01 14:28 | NURSING ---
gave report to Marlys RAUSCH after ct scan, pt rates pain to abd at 7 after contrast injected
[2021-10-01 14:49] VITALS: BP 151/89; PULSE 90; RESP 18; TEMP 36.7; O2SAT 97
[2021-10-01] MEDS: HYDROmorphone 0.5 MG/0.5 ML SYRINGE IV ×2 (14:53→20:54)
--- NOTE | 2021-10-01 15:13 | WOUNDNOTE ---
Was asked to minda patient for possible stoma. Dr Taveras planning for a possible ileostomy, but asked this nurse to minda the left side as well. patient states he wear his pants just above the hip level. abdomen is rounded and slightly distended. area marked to the RLQ just slightly below the umbilical line making sure the site is at least 3 fingerbreadths from the umbilicus. patient has some large vertical scarring to the left abdomen. patient states is from some previous back surgeries. attempted to minda away from the scars, but was difficult to so. both areas marked with a skin pen and opsite placed over them. will do more teaching with patient as needed post op. Pt states just pray I don't need one.
[2021-10-01] MEDS: TPN - Clinimix E 8%-14% Soln 2,000 ML with Multivitamins 10 ML, Trace Elements 1 ML, Fo... 63 ML IV (16:01)
[2021-10-01 16:22] VITALS: BP 148/89; PULSE 83; RESP 20; TEMP 37; O2SAT 95
[2021-10-01 18:10] LABS: Bedside Glucose 147 mg/dL (70-110)
[2021-10-01 20:53] VITALS: BP 139/93; PULSE 88; RESP 16; TEMP 36.9; O2SAT 95
[2021-10-01] MEDS: Nystatin Powder 15gm Bottle 1 APPLIC TOPICAL (21:11)
[2021-10-02] VITALS (17 sets, daily range): BP systolic 101–162; BP diastolic 75–105; PULSE 78–111; RESP 14–18; TEMP 36.4–37.1; O2SAT 92–97; BMI 28.5; BMI 28.3
--- NOTE | 2021-10-02 | COL_PTH ---
PATIENT: OLGA SANTOYO LOC: MS3 U#:[id number] AGE/SX: 61/M ROOM: [facility] RE09/21/[address]: Dr. Nathan Taveras MD : 1960 BED: 1 DIS: 10/23/2021 SPEC #: [id number] RECD: 10/02/21 14:38 STATUS: MEHDI MARCELO #: [id number] LOR: 10/02/21 00:[address]: Nathan Taveras DEPT: SURGICAL PATHOLOGY RECD BY: Derek Owen ENTERED: 10/03/21 12:03 SP TYPE: COLON OTHR DR: Dr. Linda Dominguez MD Tissues: Colon, NOS Procedures: Surgery Specimen Level III Surgery Specimen Level V HEADER OPERATION: Open ileocecectomy PRE-OP DIAGNOSIS: Findings suggestive of a fistula between the extraluminal fluid collection in the right lower quadrant at the operative site and deep terminal ileum TISSUE SUBMITTED: Terminal ileum and cecum MICROSCOPIC DIAGNOSIS Terminal ileum and cecum, ileocecectomy: Extensive acute inflammation, fat necrosis and reactive changes in the pericolonic adipose tissue and mesenteric tissue. Two benign pericolonic lymph nodes. Colonic and small intestinal donut, no pathologic diagnosis. See comment. SJ:rg 10/07/2021 COMMENT No mucosal lesion is identified. Please make reference to previous specimens ([id number]) appendix, appendectomy with diagnosis of ?mature adipose tissue with acute inflammation and vascular congestion? and small bowel diverticulum with diagnosis of ?mature fibrofatty tissue with recent hemorrhage? and ([id number]) appendix, appendectomy with diagnosis of ?acute appendicitis with rupture and associated acute serositis.? Case has been reviewed in consultation with Dr. Landeros who concurs with the above diagnosis. IDC:[email or web address] MICROSCOPIC DESCRIPTION Slides are reviewed. GROSS DESCRIPTION Received in fixative is one container labeled with the patient's name and designated terminal ileum and cecum. The specimen consists of a segment of bowel with cecum and portion of ascending colon with attached pericolonic adipose tissue and mesenteric tissue. Segment of small bowel measures 26 cm in length and cecum with ascending colon measures 9 cm in length. Appendix is not identified. The serosal surface shows extensive area of purulent exudate. An intact stapled area is noted at the base of cecum, consistent with previous surgical site. No obvious perforation is identified. Focal serosal adhesions are noted. No mucosal lesion is identified. Also present in the container is a donut-shaped piece of tissue measuring 3 x 1.5 x 1 cm. Sections will be submitted after fixation. / JEREIM:chloe 10/03/2021 Section of the pericolonic adipose tissue reveal a few lymph nodes. Basting Marker sections are submitted in ten cassettes as follows: 1 - donut, 2 - resection margin, 3-5 ? full thickness large intestine, adjacent to the stapled area, 6??small and large intestine, 7 - ileocecal valve, 8 - pericolonic/mesenteric tissue adjacent to the area of alena, 9 - pericolonic adipose tissue and possible lymph node, 10 - mesenteric tissue. The specimen gross is also in conjunction with Dr. Landeros. / JEREMI:chloe 10/04/2021 TC:2 CPT: 53238, 83420
[2021-10-02 00:40] LABS: Bedside Glucose 145 mg/dL (70-110)
[2021-10-02] MEDS: 0.9% Normal Saline 1,000 ML 75 ML IV ×2 (02:20→23:53)
[2021-10-02 05:41] LABS: Bedside Glucose 141 mg/dL (70-110)
[2021-10-02 05:44] LABS: Absolute Lymphocyte Count 1.39 X10^3/uL (0.83-4.51); Absolute Neutrophil Count 8.9 X10^3/uL (2.0-7.7); Basophil# 0.05 X10^3/uL; Basophil% 0.4 % (0-1); Eosinophil# 0.18 X10^3/uL; Eosinophils% 1.6 % (0-5); Hematocrit 34.3 % (40-54); Lymphocyte # 1.39 X10^3/ul (0.83-4.51); Lymphocyte % 12.1 % (19-41); Mean Corpuscular Hgb 32.5 pg (27.0-32.0); Mean Platelet Vol. 9.2 fl (6.2-12.0); Monocyte# 0.88 X10^3/uL; Monocyte% 7.7 % (0-10); NRBC Flagged by Analyzer 0 % (0-5); Neutrophil # 8.85 X10^3/uL (2.7-7.7); Neutrophil % 77.2 % (47-70); Platelet Count 487 K/mm3 (150-450); RBC Distribution Width CV 14.2 % (11.6-14.6); RBC Distribution Width SD 48.3 fl (35.1-43.9); Red Blood Count 3.69 M/mm3 (4.6-6.2); White Blood Count 11.5 K/mm3 (4.4-11.0)
--- NOTE | 2021-10-02 06:00 | EKG12_ITS ---
Test Reason : SCHEDULED Blood Pressure : / mmHG Vent. Rate : 081 BPM Atrial Rate : 081 BPM P-R Int : 144 ms QRS Dur : 160 ms QT Int : 446 ms P-R-T Axes : 019 077 039 degrees QTc Int : 518 ms Normal sinus rhythm Right bundle branch block Abnormal ECG When compared with ECG of 24-SEP-2021 13:12, Nonspecific T wave abnormality has replaced inverted T waves in Inferior leads Confirmed by FLAQUITA MITCHELL, ZELALEM ([id number]), editor map SHAHIDA ESCOBAR ([id number]) on 10/04/2021 1:47:13 PM Referred By: Confirmed By:DELPHINE SAMS MD
[2021-10-02 06:04] LABS: Partial Thromboplast Time 33.5 Seconds (24.1-36.2)
[2021-10-02 06:12] LABS: ALB/GLOB Ratio 0.5 RATIO (0.9-2.4); AST(SGOT) 34 U/L (15-37); Alanine Aminotransfer ALT/SGPT 39 U/L (16-61); Albumin, Serum 1.7 g/dL (3.2-5.0); Alkaline Phosphatase 68 U/L (45-117); Anion Gap 6 (5-15); BUN 9 mg/dL (7-18); BUN/Creat Ratio 19.4 RATIO (10-20); Calcium,Total 7.3 mg/dL (8.5-10.1); Chloride 111 mmol/L (98-107); Creatinine, Serum 0.46 mg/dL (0.70-1.30); EST Glomerular Filtration Rate 196 mL/min (>60); Est Glom Filt Rate - Afr Amer 237 mL/min (>60); Estimated Creatinine Clearance 204.42 ml/min; Globulin 3.7 g/dL (2.2-4.2); Glucose 130 mg/dL (74-106); Phosphorus 2.2 mg/dL (2.5-4.9); Potassium 3.3 mmol/L (3.5-5.1); Protein, Total 5.4 g/dL (6.4-8.2); Sodium Level 142 mmol/L (136-145)
[2021-10-02] MEDS: HYDROmorphone 0.5 MG/0.5 ML SYRINGE IV (06:32)
[2021-10-02] MEDS: Ipratropium/Albuterol Sulfate 3 ML AMPUL.NEB INHALATION ×2 (07:04→18:59)
--- NOTE | 2021-10-02 08:28 | PN.SURG_ITS ---
Subjective Subjective Patient was seen and examined during AM rounds. He reports that his pain is significantly improved?particularly after some pain medication earlier this morning. He denies any nausea or vomiting. He states that he is ready for his procedure later today and denies any questions. Objective Data Objective Data Vital Signs: Vital Signs Temp Pulse Resp BP Pulse Ox 97.7 F L 85 16 162/86 H 94 10/02/21 07:29 10/02/21 07:32 10/02/21 07:29 10/02/21 07:29 10/02/21 07:32 Oxygen Flow Rate (L/min) [At 2 REST with Oxygen] Oxygen Flow Rate (L/min) 3 Oxygen Delivery Method Room Air Weight: 234 lb 12.677 oz Body Mass Index (BMI) 28.3 Intake & Output: Intake and Output for Last 24 Hours 09/30/21 10/01/21 10/02/21 23:59 23:59 23:59 Intake Total 2801.75 / 2801.75 2274.9 / 2274.9 1050 / 1050 Output Total 2255 / 2255 2495 / 2495 1380 / 1380 Balance 546.75 / 546.75 -220.1 / -220.1 -330 / -330 Lab / Micro Data Result Diagrams: 10/02/21 05:34 10/02/21 05:34 Labs: Laboratory Results - last 24 hr 10/01/21 05:43: WBC 13.4 H, RBC 3.79 L, Hgb 12.5 L, Hct 35.8 L, MCV 94.5 H, MCH 33.0 H, MCHC 34.9, RDW Std Deviation 50.2 H, RDW Coeff of Ar 14.4, Plt Count 527 H, MPV 9.5, Immature Gran % (Auto) 1.200 H, Neut % (Auto) 81.7 H, Lymph % (Auto) 9.0 L, Frio % (Auto) 6.7, Eos % (Auto) 1.0, Baso % (Auto) 0.4, Absolute Neuts (auto) 11.0 H, Absolute Lymphs (auto) 1.20, Nucleated RBC % 0 10/01/21 12:04: POC Glucose 134 H 10/01/21 18:00: POC Glucose 147 H 10/02/21 00:32: POC Glucose 145 H 10/02/21 05:34: Sodium 142, Potassium 3.3 L, Chloride 111 H, Carbon Dioxide 25.0, Anion Gap 6, BUN 9, Creatinine 0.46 L, Estim Creat Clear Calc 204.42, Est GFR (MDRD) Af Amer 237, Est GFR (MDRD) Non-Af 196, BUN/Creatinine Ratio 19.4, Glucose 130 H, Calcium 7.3 L, Phosphorus 2.2 L, Magnesium 2.0, Total Bilirubin 0.40, AST 34, ALT 39, Alkaline Phosphatase 68, Total Protein 5.4 L, Albumin 1.7 L, Globulin 3.7, Albumin/Globulin Ratio 0.5 L 10/02/21 05:34: WBC 11.5 H, RBC 3.69 L, Hgb 12.0 L, Hct 34.3 L, MCV 93.0, MCH 32.5 H, MCHC 35.0, RDW Std Deviation 48.3 H, RDW Coeff of Ar 14.2, Plt Count 487 H, MPV 9.2, Immature Gran % (Auto) 1.000 H, Neut % (Auto) 77.2 H, Lymph % (Auto) 12.1 L, Frio % (Auto) 7.7, Eos % (Auto) 1.6, Baso % (Auto) 0.4, Absolute Neuts (auto) 8.9 H, Absolute Lymphs (auto) 1.39, Nucleated RBC % 0 10/02/21 05:34: APTT 33.5 10/02/21 05:35: POC Glucose 141 H Micro: Microbiology 09/30/21 13:05 Mario Samuel Drainage Gram Stain - Final 09/30/21 13:05 Mario Samuel Drainage Body Fluid Culture - Preliminary Escherichia coli 10/01/21 17:10 Nasal Secretion SARS-CoV-2 Antigen (Rapid) - Final 09/29/21 05:45 Stool Enteric Bacteriology - Final 09/28/21 15:40 Stool Stool Lactoferrin - Final 09/28/21 15:40 Stool C. 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 Electronically Signed: Sourav Rodriguez MD at 14:43 EST , Physical Exam Const oriented x3 and no apparent distress Resp normal respiratory effort GI GI Narrative: Nondistended, soft, minimally tender in the right lower quadrant otherwise nontender. Incision sites with Steri-Strips intact. No erythema about the strips. Improving picture of yeast infection in patients left inguinal crease Assessment & Plan Assessment/Plan (1) S/P laparoscopic appendectomy: PLAN: Patient required return to the OR on 09/24/2021 after pathology reported they did not identify appendix in the patient's surgical specimen from 09/21/2021. Therefore, patient is postoperative day 8 from hand-assisted laparoscopic appendectomy with drain placement. Unfortunately, patient appears to have evidence of a controlled perforation from the terminal ileum?per drain study yesterday. I have held the patient n.p.o. and initiated TPN. Patient's white count somewhat decreased today, but after in-depth conversations related to possible management options, the patient is against conservative management with a prolonged n.p.o. status and wishes to be more aggressive. Therefore, we have jointly decided to pursue open ileocecectomy today. Neuro: As needed Dilaudid, oxycodone 5 mg every 6 hours Pulm/CV: Supplemental O2 as needed; wean as able, DuoNebs every 6 hours while a wake, diuresing to see if this will decrease the oxygen requirement, telemetry FEN/GI: N.p.o. with TPN Heme/ID: Hemoglobin stable postop, continue Zosyn given concern for ongoing drain output representing potential ongoing contamination. 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 We are awaiting the results to determine if Zosyn is adequate. Endo: No current issues Proph: SCDs, subcu heparin, patient encouraged to ambulate Dispo: Continue inpatient care (2) Appendicitis with perforation: PLAN: Status post above operative course
[2021-10-02] MEDS: Potassium Chloride 10mEq/100mL 10 MEQ/100 ML IV.SOLN. 100 MEQ IV BOLUS ×4 (09:24→19:30)
--- NOTE | 2021-10-02 09:48 | CASEMGMT ---
Social Work Note SW received note that pt would like to complete HCPOA before going to surgery at 11:30am. SW in to pt's room. Pt is not in room at this time. RAVEN spoke with RN, pt already down for surgery. RAVEN will attempt to meet with pt after surgery to discuss HCPOA. Kayla Bernard DIRECTOR CAMP, [employer] INSPECTOR
[2021-10-02] MEDS: BUPIVACAINE LIPOSOME/PF 20 ML VIAL OPERA.SITE (14:13)
[2021-10-02] MEDS: Bupivacaine 0.25% 30 ML Vial (14:14)
[2021-10-02] MEDS: 0.9% Normal Saline (Pres. free 10 ML Vial (14:14)
--- NOTE | 2021-10-02 15:03 | PCM.OPRPT ---
Report of Operation Date of Procedure: 10/02/21 Pre-Operative Diagnosis: 1. Perforated appendicitis status post hand-assisted laparoscopic appendectomy 2. Feculent drainage from postoperative drain above HALS procedure with radiographic evidence of drainage from terminal ileum Surgery/Procedure Performed:: 1. Open ileocecectomy with primary anastomosis 2. Adhesiolysis 3. Transversus abdominis plane block Description of Surgical Findings:: ?Well-formed drainage tract along patient's prior Larry drain leading to a retrocecal area of foul-smelling purulence. -Necrotic debris posterior to both the terminal ileum and cecum without evidence of robert perforation -Intact appendiceal base staple line ?Widely patent ileocolic anastomosis Surgeon: Nathan Taveras salt machine operator: Ros Deluca salt machine operator: Jeimy De La O Type of Anesthesia: General/Supplemental Anesthesiologist: Tod Mims Special Medications: TAPS cocktail of Exparel, bupivacaine, and saline for total volume of 100 mL Specimen's removed: Terminal ileum and cecum Drains: 15 Namibian round Estimated Blood Loss (mL): 100 Description of Procedure: After appropriate identification in the day surgery holding area the patient was brought to the operating room where he was positioned supine on the operating room table. General anesthetic was administered and then a Wills catheter was placed for accurate ins and outs monitoring during the case. Patient's abdomen was prepped (including the prior left lower quadrant drain) and draped in the usual sterile fashion. A formal timeout was conducted to confirm the patient and the procedure to be performed. Procedure was then begun by reopening the patient's infraumbilical incision and extending this around the umbilicus cephalad. In doing so, we noted a small seroma collection in the subcutaneous tissue of the infraumbilical incision. Her incision was carried down deeply through the fascia with the use of electrocautery taking care to protect the visceral structures below. A medium size Nabeel wound protector was placed into the wound to provide retraction. We were able to trace the surgical drain to the right lower quadrant as it coursed through the small bowel in a well?formed drainage tract. Adhesions were bluntly and sharply disrupted with either finger fracture or Metzenbaum scissors, respectively. Once this was complete, we recognized we still had inadequate visualization of the right side of the abdomen so our incision was extended cephalad. This permitted us exposure of the posterior aspect of the terminal ileum and cecum. Here there was evidence of necrotic debris and purulent fluid, but inspection of the bowel did not clearly reveal a perforation. We were also able to clearly establish that the staple line across the appendiceal base was fully intact with this exposure. Given the severe inflammation and anatomical distortion, we elected to proceed with the planned procedure of an ileocecectomy. The cecum was mobilized fully off the retroperitoneum and then the hepatic flexure was taken down to fully mobilize the ascending colon. There were some dense adhesions to the liver capsule but these were divided with electrocautery. More proximally, the terminal ileum was densely adherent to the lateral sidewall and while we are able to exploit a plane between the 2 structures, dense adhesions remained that also required electrocautery to lyse. With this improved mobilization, we still had tethering of the ascending colon and took some additional time to divide attachments to the transverse colon?particularly as it was adherent to the gallbladder superiorly and the second portion of the duodenum deeply. We then selected our proximal and distal transection points and divided the colon, then the small bowel with serial staple loads from the Endo JIAN stapler. The intervening mesentery was taken with the use of the impact LigaSure device. The ileocolic pedicle was identified and was suture-ligated after LigaSure had been applied to it too. The specimen was passed off the surgical field for permanent section. Attention was then turned to creation of our [id number], functional end-to-end stapled ileocolic anastomosis. This was done in the standard fashion after creating a opening in the corner of both the terminal ileum and the ascending colon and creating a common channel with a firing of the 75 mm JIAN stapler. The common opening was closed with a TX stapler and the staple line was largely hemostatic, but care was taken to imbricate the staple line with the use of a running Limbert stitch using 3-0 silk. I then closed the mesenteric defect with a running 3-0 Vicryl. Approximately 5 L of warm sterile saline was used to irrigate the surgical bed and the effluent returned clear. At this point I placed a 15 Nam[place]ian round Larry drain into the surgical cavity via a new stab incision in the right lower quadrant and secured this to the skin with a 2-0 Ethilon suture. To assist with patient's postoperative pain control, I performed a transversus abdominis plane block with a total volume of 100 mL Exparel diluted into bupivacaine and sterile saline along both sides of the patient's laparotomy. The patient's fascia was then closed running, double-stranded 0 PDS in a bidirectional fashion and tied in the middle. Patient's fascial layer was notably very attenuated. Lastly, the patient's prior surgical scar was excised and the incision edges were brought into apposition with a running deep dermal stitch using 3-0 Vicryl. Lastly the skin was closed with a running 4-0 Monocryl in a subcuticular fashion. Telfa and Tegaderm were placed over top of the laparotomy incision. Drain sponge was placed around the patient's new right lower quadrant surgical drain. Quarter-inch iodoform was packed in the patient's prior drain site in the left lower quadrant and covered with gauze. A abdominal binder was fitted about the patient and he was transferred to his hospital bed. He was then allowed to emerge from general anesthetic and taken to PACU for ongoing recovery. Complications None Admit VTE Documentation VTE Present on Admission: Yes VTE Mechan Device Prophylaxis: SCD's VTE Pharm Prophylaxis ordered?: Yes Procedures Digestive 40xxx-49xxx: 96884 Removal of colon
[2021-10-02] MEDS: TPN - Clinimix E 8%-14% Soln 2,000 ML with Multivitamins 10 ML, Trace Elements 1 ML, Fo... 63 ML IV (16:03)
[2021-10-02] MEDS: Nystatin Powder 15gm Bottle 1 APPLIC TOPICAL ×2 (17:11→21:26)
[2021-10-02] MEDS: 0.9% Saline Lock 10 ML Syringe IV ×2 (17:20→18:59)
[2021-10-02 18:56] LABS: Bedside Glucose 195 mg/dL (74-106)
[2021-10-02] MEDS: HYDROmorphone 1 MG/ML Syringe IV ×2 (18:59→22:50)
[2021-10-02 23:25] LABS: Bedside Glucose 144 mg/dL (74-106)
[2021-10-03] MEDS: HYDROmorphone 1 MG/ML Syringe IV ×5 (01:56→20:27)
[2021-10-03 03:00] VITALS: BP 112/75; PULSE 90; RESP 14; TEMP 36.8; O2SAT 92
[2021-10-03 03:06] VITALS: BMI 28.3
[2021-10-03 05:36] LABS: Bedside Glucose 146 mg/dL (74-106)
--- NOTE | 2021-10-03 06:18 | NURSING ---
Catheter removed at 0612
--- NOTE | 2021-10-03 06:33 | NURSING ---
Pt refused to dangle, due to abdominal pain.
[2021-10-03 06:46] LABS: Absolute Lymphocyte Count 1.66 X10^3/uL (0.83-4.51); Basophil# 0.06 X10^3/uL; Basophil% 0.3 % (0-1); Eosinophil# 0.01 X10^3/uL; Hematocrit 38.6 % (40-54); Lymphocyte # 1.66 X10^3/ul (0.83-4.51); Lymphocyte % 7.3 % (19-41); Mean Corp Hgb Conc 33.7 g/dL (32-36); Mean Corpuscular Hgb 33.2 pg (27.0-32.0); Mean Corpuscular Volume 98.5 fL (80-94); Mean Platelet Vol. 9.3 fl (6.2-12.0); Monocyte# 1.57 X10^3/uL; Monocyte% 6.9 % (0-10); NRBC Flagged by Analyzer 0 % (0-5); Neutrophil # 19.03 X10^3/uL (2.7-7.7); Neutrophil % 84.3 % (47-70); POSITIVE DIFFERENTIAL YES; Platelet Count 464 K/mm3 (150-450); RBC Distribution Width CV 14.6 % (11.6-14.6); RBC Distribution Width SD 53.2 fl (35.1-43.9); Red Blood Count 3.92 M/mm3 (4.6-6.2); White Blood Count 22.6 K/mm3 (4.4-11.0)
[2021-10-03 06:48] LABS: Differential Indicated SCAN CRITERIA MET
[2021-10-03 07:09] LABS: Anion Gap 3 (5-15); BUN 24 mg/dL (7-18); BUN/Creat Ratio 29.8 RATIO (10-20); Calcium,Total 8.1 mg/dL (8.5-10.1); Chloride 113 mmol/L (98-107); EST Glomerular Filtration Rate 103 mL/min (>60); Est Glom Filt Rate - Afr Amer 125 mL/min (>60); Estimated Creatinine Clearance 117.54 ml/min; Glucose 126 mg/dL (74-106); Magnesium 2.1 mg/dL (1.6-2.6); Phosphorus 3.3 mg/dL (2.5-4.9); Potassium 4.3 mmol/L (3.5-5.1); Sodium Level 142 mmol/L (136-145)
[2021-10-03 07:10] LABS: Differential Comment SCANNED
[2021-10-03 07:16] VITALS: PULSE 88; RESP 20; O2SAT 94
[2021-10-03] MEDS: Ipratropium/Albuterol Sulfate 3 ML AMPUL.NEB INHALATION ×2 (07:16→19:33)
[2021-10-03 07:36] VITALS: BMI 28.3
[2021-10-03 08:12] VITALS: BP 131/77; PULSE 103; RESP 20; TEMP 37; O2SAT 94
--- NOTE | 2021-10-03 08:50 | PN.SURG_ITS ---
Subjective Subjective Patient was seen and examined during AM rounds. He reports that he is doing well but quite tender after surgery yesterday. He is currently sitting in an 8 out of 10 for his discomfort, but does recognize this goes to a 4 or less out of 10 when he receives his pain medication. He expresses a very strong appetite and denies any nausea. His Wills catheter was pulled by nursing earlier this morning. He has several questions related to his ongoing scrotal swelling. Objective Data Objective Data Vital Signs: Vital Signs Temp Pulse Resp BP Pulse Ox 98.6 F 103 H 20 H 131/77 H 94 10/03/21 08:12 10/03/21 08:12 10/03/21 08:12 10/03/21 08:12 10/03/21 08:12 Oxygen Flow Rate (L/min) [At 2 REST with Oxygen] Oxygen Flow Rate (L/min) 5 Oxygen Delivery Method Nasal Cannula Weight: 233 lb 14.567 oz Body Mass Index (BMI) 28.5 Intake & Output: Intake and Output for Last 24 Hours 10/01/21 10/02/21 10/03/21 23:59 23:59 23:59 Intake Total 2274.9 / 2274.9 4317.45 / 4317.45 50 / 50 Output Total 2495 / 2495 3145 / 3145 350 / 350 Balance -220.1 / -220.1 1172.45 / 1172.45 -300 / -300 Lab / Micro Data Result Diagrams: 10/03/21 06:25 10/03/21 06:25 Labs: Laboratory Results - last 24 hr 10/02/21 18:53: POC Glucose 195 H 10/02/21 23:20: POC Glucose 144 H 10/03/21 05:27: POC Glucose 146 H 10/03/21 06:25: WBC 22.6 H, RBC 3.92 L, Hgb 13.0, Hct 38.6 L, MCV 98.5 H D, MCH 33.2 H, MCHC 33.7, RDW Std Deviation 53.2 H, RDW Coeff of Ar 14.6, Plt Count 464 H, MPV 9.3, Immature Gran % (Auto) 1.200 H, Neut % (Auto) 84.3 H, Lymph % (Auto) 7.3 L, [place] % (Auto) 6.9, Eos % (Auto) 0.0, Baso % (Auto) 0.3, Absolute Neuts (auto) 19.0 H, Absolute Lymphs (auto) 1.66, Nucleated RBC % 0, Differential Comment SCANNED, Diff Path Review May foll 10/03/21 06:25: Sodium 142, Potassium 4.3, Chloride 113 H, Carbon Dioxide 26.0, Anion Gap 3 L, BUN 24 H, Creatinine 0.80, Estim Creat Clear Calc 117.54, Est GFR (MDRD) Af Amer 125, Est GFR (MDRD) Non-Af 103, BUN/Creatinine Ratio 29.8 H, Glucose 126 H, Calcium 8.1 L, Phosphorus 3.3, Magnesium 2.1 Micro: Microbiology 09/30/21 13:05 Mario Samuel Drainage Gram Stain - Final 09/30/21 13:05 Mario Samuel Drainage Body Fluid Culture - Final Escherichia coli 09/30/21 13:05 Mario Samuel Drainage Anaerobic Culture - Preliminary Checking for anaerobes, further studies to follow. 10/01/21 17:10 Nasal Secretion SARS-CoV-2 Antigen (Rapid) - Final 09/29/21 05:45 Stool Enteric Bacteriology - Final 09/28/21 15:40 Stool Stool Lactoferrin - Final 09/28/21 15:40 Stool C. difficile DNA Amplification - Final 09/21/21 01:18 Nasal Secretion SARS-CoV-2 Antigen (Rapid) - Final Physical Exam Const oriented x3 Constitutional Narrative: Mild discomfort Resp normal respiratory effort Resp Narrative: Nasal cannula in place GI GI Narrative: Mildly distended, firm, appropriately tender to palpation about incisions. Operative dressings in place without any strikethrough. Right lower quadrant drain with serosanguineous output. Improved appearance of patient's left lower groin crease yeast infection Assessment & Plan Assessment/Plan (1) S/P laparoscopic appendectomy: PLAN: Patient required return to the OR on 09/24/2021 after pathology reported they did not identify appendix in the patient's surgical specimen from 09/21/2021. Therefore, patient is postoperative day 9 from hand-assisted laparoscopic appendectomy with drain placement. Unfortunately, patient developed evidence of a controlled perforation from the terminal ileum?per drain study 10/01/2021. He was thus n.p.o. and initiated TPN. He was then taken for open ileocecectomy on 10/02/2021 (2) Appendicitis with perforation: PLAN: Status post above operative course (3) Perforation of small intestine: PLAN: Patient postoperative day 1 from open ileocecectomy. Intraoperatively he was noted to have necrotic appearance of his posterior ileum. No definitive hole in the specimen was seen but this was the area of greatest abnormality. Overall, recovering appropriately. He does have some postoperative discomfort. I hope to help this with another scheduled round of Toradol in addition to the Dilaudid as needed he is already receiving. Although he has an allergy to nabumetone he tolerated this well a week ago. He has a strong appetite today, but he is at risk for postoperative ileus. An effort to improve his nutrition, I will write for a clear liquid diet but have advised him to avoid excessive consumption. Patient's leukocytosis is significantly elevated today, but I suspect this is postoperative related to disruption of a moderate size pocket of purulence and removal of his colon/small bowel yesterday with surgery. We will continue Zosyn given this contamination. Neuro: As needed Dilaudid, add Toradol 15 mg every 6 hours scheduled x2 days Pulm/CV: Supplemental O2 as needed; wean as able, DuoNebs every 6 hours while awake, diuresing to see if this will decrease the oxygen requirement, telemetry FEN/GI: Lasix 20 mg IV x1. Advance to clear liquid diet with TPN?renew TPN today : Need to elevate patient's scrotum on a rolled towel while in bed to relieve some scrotal edema. Patient had Wills catheter discontinued early this morning and awaiting spontaneous void. Heme/ID: Hemoglobin stable postop, continue Zosyn given contamination noted during the case on 10/02/2021. Drain output now serosanguineous. Endo: No current issues Proph: SCDs, patient encouraged to ambulate Dispo: Continue inpatient care Charges/Coding Visit Charges Inpatient E&M: 62389 Subs Hosp L2
[2021-10-03] MEDS: 0.9% Saline Lock 10 ML Syringe IV ×3 (08:56→17:05)
[2021-10-03] MEDS: Furosemide 20 MG/2 ML VIAL IV (09:10)
[2021-10-03] MEDS: Doxazosin 1 MG Tablet PO (09:18)
[2021-10-03] MEDS: Nystatin Powder 15gm Bottle 1 APPLIC TOPICAL ×2 (09:18→20:29)
--- NOTE | 2021-10-03 11:01 | CASEMGMT ---
Social Work Note SW in to speak with pt to discuss Advanced Directives. Pt states he would to complete them just not right now. SW provided documents to pt. SW informed pt to let staff know when he would like to complete them and SW can return. Pt states understanding. Kayla Bernard HURRICANE TRACKER, MILL ATTENDANT
--- NOTE | 2021-10-03 12:04 | CHAPLAIN ---
Type of Pastoral Visit _x__ Initial Visit ___ Follow-up Visit ___ On-call Visit ___ General Patient Visit ___ Spiritual Assessment ___ Family Conference ___ Bereavement ___ Rapid Response ___ Code Blue ___ Other (describe below) Pastoral Care Referral From ___ Patient _x__ Family ___ Nurse ___ Physician ___ [employer] Network Architect ___ Recycle Worker ___ Other (describe below) Sacrament/Intervention _x__ Active listening ___ Anointing ___ Hoahaoism ___ Bereavement ___ Communion _x__ Angelica exploration ___ ___ Life review _x__ Prayer ___ Reconciliation ___ Sacrament of Sick _x__ Supportive presence ___ Wedding ___ Other (describe below) Pastoral Comments patient agreeable to visit with referral given by his spouse; pt briefly describes his health and the three surgeries in the last few days; pt states that it is my angelica that is helping me through this; pt continues to describe his angelica and 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
[2021-10-03] MEDS: Ketorolac 15 MG/ML Vial IV ×3 (12:51→23:50)
[2021-10-03] MEDS: 0.9% Normal Saline 1,000 ML 75 ML IV (13:15)
[2021-10-03] MEDS: Ensure Clear 120 ML Liquid PO ×3 (13:32→17:09)
[2021-10-03 13:36] VITALS: BMI 28.3
[2021-10-03 14:44] VITALS: BP 119/77; PULSE 102; RESP 18; TEMP 36.8; O2SAT 93
[2021-10-03 15:36] VITALS: BMI 28.3
[2021-10-03] MEDS: Fat Emulsions 20% 250 ML IV (16:49)
[2021-10-03] MEDS: TPN - Clinimix E 8%-14% Soln 2,000 ML with Multivitamins 10 ML, Trace Elements 1 ML, Fo... 63 ML IV (16:55)
[2021-10-03 18:46] LABS: Bedside Glucose 189 mg/dL (74-106)
[2021-10-03 19:34] VITALS: PULSE 106; RESP 20
[2021-10-03 19:36] VITALS: BMI 28.3
[2021-10-03] MEDS: Pramipexole Di-HCl 0.5 MG Tablet PO (20:29)
[2021-10-03 20:35] VITALS: BP 124/68; PULSE 82; RESP 18; TEMP 36.4; O2SAT 96
[2021-10-04] VITALS (7 sets, daily range): BP systolic 117–139; BP diastolic 70–89; PULSE 94–102; RESP 12–20; TEMP 36.4–36.8; O2SAT 94–98
[2021-10-04 00:02] LABS: Bedside Glucose 142 mg/dL (74-106)
[2021-10-04] MEDS: 0.9% Normal Saline 1,000 ML 75 ML IV ×2 (02:36→15:28)
[2021-10-04] MEDS: HYDROmorphone 1 MG/ML Syringe IV ×4 (02:48→19:58)
[2021-10-04] MEDS: Ketorolac 15 MG/ML Vial IV ×3 (05:18→17:46)
[2021-10-04 05:26] LABS: Absolute Lymphocyte Count 1.31 X10^3/uL (0.83-4.51); Absolute Neutrophil Count 13.6 X10^3/uL (2.0-7.7); Basophil# 0.04 X10^3/uL; Basophil% 0.2 % (0-1); Eosinophil# 0.08 X10^3/uL; Eosinophils% 0.5 % (0-5); Hematocrit 35.2 % (40-54); Hemoglobin 11.5 g/dL (13.0-16.5); Lymphocyte # 1.31 X10^3/ul (0.83-4.51); Lymphocyte % 7.9 % (19-41); Mean Corp Hgb Conc 32.7 g/dL (32-36); Mean Corpuscular Volume 98.1 fL (80-94); Mean Platelet Vol. 9.4 fl (6.2-12.0); Monocyte# 1.38 X10^3/uL; Monocyte% 8.3 % (0-10); NRBC Flagged by Analyzer 0 % (0-5); Neutrophil % 82.1 % (47-70); Platelet Count 396 K/mm3 (150-450); RBC Distribution Width CV 14.6 % (11.6-14.6); RBC Distribution Width SD 52.4 fl (35.1-43.9); Red Blood Count 3.59 M/mm3 (4.6-6.2); White Blood Count 16.6 K/mm3 (4.4-11.0)
[2021-10-04 05:31] LABS: Bedside Glucose 170 mg/dL (74-106)
[2021-10-04 05:48] LABS: Anion Gap 4 (5-15); BUN 27 mg/dL (7-18); Calcium,Total 7.8 mg/dL (8.5-10.1); Chloride 110 mmol/L (98-107); Creatinine, Serum 0.69 mg/dL (0.70-1.30); EST Glomerular Filtration Rate 123 mL/min (>60); Est Glom Filt Rate - Afr Amer 149 mL/min (>60); Estimated Creatinine Clearance 136.28 ml/min; Glucose 137 mg/dL (74-106); Magnesium 2.2 mg/dL (1.6-2.6); Phosphorus 2.4 mg/dL (2.5-4.9); Potassium 3.7 mmol/L (3.5-5.1); Sodium Level 139 mmol/L (136-145)
[2021-10-04] MEDS: Ondansetron 4 MG/2 ML Vial IV ×2 (08:43→23:41)
[2021-10-04] MEDS: Doxazosin 1 MG Tablet PO (08:43)
[2021-10-04 09:17] LABS: Pathologist Review Reviewed
[2021-10-04] MEDS: Nystatin Powder 15gm Bottle 1 APPLIC TOPICAL ×2 (10:28→21:12)
--- NOTE | 2021-10-04 11:21 | PN.SURG_ITS ---
Subjective Subjective Patient is seen and examined during AM rounds. He initially reports feeling better, but does admit that his abdomen is more distended. He confirms nursing reports that he has been burping and occasionally hiccuping. He confesses that he has had perhaps too much from his diet and has been consuming carbonated padmini erages as well. He denies any further passage of flatus below. He states yesterday he was unable to walk because his pain was so significant during the early part of the day. Objective Data Objective Data Vital Signs: Vital Signs Temp Pulse Resp BP Pulse Ox 97.9 F 96 16 117/70 97 10/04/21 02:35 10/04/21 02:35 10/04/21 02:35 10/04/21 02:35 10/04/21 07:30 Oxygen Flow Rate (L/min) [At 2 REST with Oxygen] Oxygen Flow Rate (L/min) 5 Oxygen Delivery Method Nasal Cannula Weight: 234 lb 2.095 oz Body Mass Index (BMI) 28.5 Intake & Output: Intake and Output for Last 24 Hours 10/02/21 10/03/21 10/04/21 23:59 23:59 23:59 Intake Total 4317.45 / 4317.45 1610 / 1610 3565.2 / 3565.2 Output Total 3145 / 3145 875 / 875 730 / 730 Balance 1172.45 / 1172.45 735 / 735 2835.2 / 2835.2 Lab / Micro Data Result Diagrams: 10/04/21 05:01 10/04/21 05:01 Labs: Laboratory Results - last 24 hr 10/03/21 06:25: Diff Path Review Reviewed 10/03/21 18:07: POC Glucose 189 H 10/03/21 23:56: POC Glucose 142 H 10/04/21 05:01: WBC 16.6 H, RBC 3.59 L, Hgb 11.5 L, Hct 35.2 L, MCV 98.1 H, MCH 32.0, MCHC 32.7, RDW Std Deviation 52.4 H, RDW Coeff of Ar 14.6, Plt Count 396, MPV 9.4, Immature Gran % (Auto) 1.000 H, Neut % (Auto) 82.1 H, Lymph % (Auto) 7.9 L, [place] % (Auto) 8.3, Eos % (Auto) 0.5, Baso % (Auto) 0.2, Absolute Neuts (auto) 13.6 H, Absolute Lymphs (auto) 1.31, Nucleated RBC % 0 10/04/21 05:01: Sodium 139, Potassium 3.7, Chloride 110 H, Carbon Dioxide 25.0, Anion Gap 4 L, BUN 27 H, Creatinine 0.69 L, Estim Creat Clear Calc 136.28, Est GFR (MDRD) Af Amer 149, Est GFR (MDRD) Non-Af 123, BUN/Creatinine Ratio 39.0 H, Glucose 137 H, Calcium 7.8 L, Phosphorus 2.4 L, Magnesium 2.2 10/04/21 05:25: POC Glucose 170 H Micro: Microbiology 09/30/21 13:05 Mario Samuel Drainage Gram Stain - Final 09/30/21 13:05 Mario Samuel Drainage Body Fluid Culture - Final Escherichia coli 09/30/21 13:05 Mario Samuel Drainage Anaerobic Culture - Preliminary Checking for anaerobes, further studies to follow. 10/01/21 17:10 Nasal Secretion SARS-CoV-2 Antigen (Rapid) - Final 09/29/21 05:45 Stool Enteric Bacteriology - Final 09/28/21 15:40 Stool Stool Lactoferrin - Final 09/28/21 15:40 Stool C. difficile DNA Amplification - Final 09/21/21 01:18 Nasal Secretion SARS-CoV-2 Antigen (Rapid) - Final Physical Exam Const Constitutional Narrative: Mild distress/discomfort from abdominal distention Resp Resp Narrative: Nasal cannula in place GI GI Narrative: Abdomen is distended and tympanic. Operative dressings are removed and overall wounds are well?healing. There is a slight amount of serosanguineous drainage from the upper portion of the patient's laparotomy wound. More inferiorly there is some ischemia to the patient's umbilical skin. Patient's left lower quadrant drain site remains packed with iodoform and is d raining serosanguineous fluid. Patient's right lower quadrant drain continues to drain serosanguineous fluid with some residual clot in the tubing. Assessment & Plan Assessment/Plan (1) S/P laparoscopic appendectomy: PLAN: Patient required return to the OR on 09/24/2021 after pathology reported they did not identify appendix in the patient's surgical specimen from 09/21/2021. Therefore, patient is postoperative day 9 from hand-assisted laparoscopic appendectomy with drain placement. Unfortunately, patient developed evidence of a controlled perforation from the terminal ileum?per drain study 10/01/2021. He was thus n.p.o. and initiated TPN. He was then taken for open ileocecectomy on 10/02/2021 (2) Appendicitis with perforation: PLAN: Status post above operative course (3) Perforation of small intestine: PLAN: Patient postoperative day 2 from open ileocecectomy. Overall, recovering appropriately. He does seem to have developed a another postoperative ileus. Therefore, I will restrict his diet and continue TPN. I have also encouraged him to mobilize more today. Patient's leukocytosis is somewhat improved today and his drain output remains clear. We will continue Zosyn given this contamination. Neuro: As needed Dilaudid, add Toradol 15 mg every 6 hours scheduled x2 days Pulm/CV: Supplemental O2 as needed; wean as able, DuoNebs every 6 hours while awake, diuresing to see if this will decrease the oxygen requirement, telemetry FEN/GI: K-Phos 15 mmol x 1. Restrict to n.p.o. except ice chips with TPN?renew TPN today : Need to elevate patient's scrotum on a rolled towel while in bed to relieve some scrotal edema. Heme/ID: Hemoglobin stable postop, continue Zosyn given contamination noted during the case on 10/02/2021. Drain output now serosanguineous. Endo: No current issues Proph: SCDs, patient encouraged to ambulate and be up and out of bed in a chair as much as possible Dispo: Continue inpatient care Charges/Coding Visit Charges Inpatient E&M: 34681 Subs Hosp L2
[2021-10-04 12:16] LABS: Bedside Glucose 137 mg/dL (74-106)
[2021-10-04] MEDS: Ipratropium/Albuterol Sulfate 3 ML AMPUL.NEB INHALATION ×2 (13:50→19:38)
[2021-10-04] MEDS: TPN - Clinimix E 8%-14% Soln 2,000 ML with Multivitamins 10 ML, Trace Elements 1 ML, Fo... 63 ML IV (16:34)
[2021-10-04] MEDS: 0.9% Saline Lock 10 ML Syringe IV (17:46)
[2021-10-04] MEDS: Famotidine 20mg IV Push Syringe Q12 300 MG IV (18:38)
[2021-10-04 18:46] LABS: Bedside Glucose 174 mg/dL (74-106)
[2021-10-04] MEDS: Pramipexole Di-HCl 0.5 MG Tablet PO (21:12)
[2021-10-05] VITALS (11 sets, daily range): BP systolic 128–134; BP diastolic 67–80; PULSE 57–104; RESP 14–18; TEMP 36.6–36.8; O2SAT 93–97
[2021-10-05] MEDS: Metoclopramide 10 MG/2 ML Vial IV (00:55)
[2021-10-05] MEDS: HYDROmorphone 1 MG/ML Syringe IV ×4 (00:58→21:37)
--- NOTE | 2021-10-05 01:55 | RAD_ITS ---
STUDY: X-RAY - ABDOMEN/PELVIS REASON FOR EXAM: Male, 61 years old. Status post NGT placement TECHNIQUE: Single AP view of the abdomen / pelvis. COMPARISON: None. FINDINGS: Nasogastric tube extends to the mid gastric body with the sidehole positioned near the gastroesophageal junction. Mildly prominent air-filled loops of small bowel within the left mid abdomen. Mild gas and stool noted within the colon. No free intraperitoneal air or fluid. The visualized liver, spleen and kidneys are grossly normal in size and morphology. No intra-abdominal calcification. Normal soft tissue structures. Posterior lumbar spinal fusion instrumentation noted. Normal visualized osseous structures. There is minimal patchy airspace infiltration at the left medial lung base, with platelike atelectasis versus scar formation at the right base. RAD/Abdomen Single View (Portable) IMPRESSION: Bowel gas pattern most consistent with a partial small bowel obstruction Electronically Signed: Derek Barton MD at 3:33 EST ,
[2021-10-05 02:36] LABS: Bedside Glucose 167 mg/dL (74-106)
[2021-10-05 05:32] LABS: Absolute Lymphocyte Count 1.07 X10^3/uL (0.83-4.51); Absolute Neutrophil Count 14.5 X10^3/uL (2.0-7.7); Basophil# 0.04 X10^3/uL; Basophil% 0.2 % (0-1); Eosinophil# 0.03 X10^3/uL; Eosinophils% 0.2 % (0-5); Hematocrit 32.1 % (40-54); Hemoglobin 10.8 g/dL (13.0-16.5); Lymphocyte # 1.07 X10^3/ul (0.83-4.51); Lymphocyte % 6.3 % (19-41); Mean Corp Hgb Conc 33.6 g/dL (32-36); Mean Corpuscular Hgb 32.5 pg (27.0-32.0); Mean Corpuscular Volume 96.7 fL (80-94); Mean Platelet Vol. 9.8 fl (6.2-12.0); Monocyte# 1.15 X10^3/uL; Monocyte% 6.8 % (0-10); NRBC Flagged by Analyzer 0 % (0-5); Neutrophil # 14.46 X10^3/uL (2.7-7.7); Neutrophil % 85.7 % (47-70); Platelet Count 400 K/mm3 (150-450); RBC Distribution Width CV 14.2 % (11.6-14.6); RBC Distribution Width SD 50.8 fl (35.1-43.9); Red Blood Count 3.32 M/mm3 (4.6-6.2); White Blood Count 16.9 K/mm3 (4.4-11.0)
[2021-10-05 06:05] LABS: Anion Gap 4 (5-15); BUN 24 mg/dL (7-18); BUN/Creat Ratio 42.8 RATIO (10-20); Calcium,Total 7.5 mg/dL (8.5-10.1); Chloride 111 mmol/L (98-107); Creatinine, Serum 0.56 mg/dL (0.70-1.30); EST Glomerular Filtration Rate 157 mL/min (>60); Est Glom Filt Rate - Afr Amer 190 mL/min (>60); Estimated Creatinine Clearance 167.92 ml/min; Glucose 169 mg/dL (74-106); Magnesium 1.9 mg/dL (1.6-2.6); Phosphorus 1.9 mg/dL (2.5-4.9); Potassium 3.8 mmol/L (3.5-5.1); Sodium Level 139 mmol/L (136-145)
[2021-10-05] MEDS: Ondansetron 4 MG/2 ML Vial IV (06:11)
[2021-10-05] MEDS: 0.9% Normal Saline 1,000 ML 75 ML IV ×2 (06:16→22:51)
[2021-10-05] MEDS: Ketorolac 15 MG/ML Vial IV ×4 (06:36→23:54)
[2021-10-05 06:46] LABS: Bedside Glucose 169 mg/dL (74-106)
[2021-10-05] MEDS: Ipratropium/Albuterol Sulfate 3 ML AMPUL.NEB INHALATION ×3 (07:36→19:38)
--- NOTE | 2021-10-05 08:36 | PCM.PN.SRG ---
Subjective Subjective Patient seen and examined during AM rounds. Was notified overnight of new bilious emesis approximately midnight. Instructed nursing to place a nasogastric tube. Post-? placement KUB confirmed evidence of partial small bowel obstruction. Patient states that he feels somewhat better this morning, but then states that he feels nauseous. Does state that he has passed a small amount of gas. Objective Data Objective Data Vital Signs: Vital Signs Temp Pulse Resp BP Pulse Ox 98.2 F 57 L 18 134/67 H 97 10/05/21 02:00 10/05/21 07:36 10/05/21 07:36 10/05/21 02:00 10/05/21 07:36 Oxygen Flow Rate (L/min) [At 2 REST with Oxygen] Oxygen Flow Rate (L/min) 5 Oxygen Delivery Method Nasal Cannula Weight: 241 lb 6.499 oz Body Mass Index (BMI) 28.5 Intake & Output: Intake and Output for Last 24 Hours 10/03/21 10/04/21 10/05/21 23:59 23:59 23:59 Intake Total 1610 / 1610 6335.15 / 6335.15 1050 / 1050 Output Total 875 / 875 1805 / 1805 1550 / 1550 Balance 735 / 735 4530.15 / 4530.15 -500 / -500 Lab / Micro Data Result Diagrams: 10/05/21 04:45 10/05/21 04:45 Labs: Laboratory Results - last 24 hr 10/03/21 06:25: Diff Path Review Reviewed 10/04/21 12:12: POC Glucose 137 H 10/04/21 18:39: POC Glucose 174 H 10/05/21 00:13: POC Glucose 167 H 10/05/21 04:45: WBC 16.9 H, RBC 3.32 L, Hgb 10.8 L, Hct 32.1 L, MCV 96.7 H, MCH 32.5 H, MCHC 33.6, RDW Std Deviation 50.8 H, RDW Coeff of Ar 14.2, Plt Count 400, MPV 9.8, Immature Gran % (Auto) 0.800, Neut % (Auto) 85.7 H, Lymph % (Auto) 6.3 L, [place] % (Auto) 6.8, Eos % (Auto) 0.2, Baso % (Auto) 0.2, Absolute Neuts (auto) 14.5 H, Absolute Lymphs (auto) 1.07, Nucleated RBC % 0 10/05/21 04:45: Sodium 139, Potassium 3.8, Chloride 111 H, Carbon Dioxide 24.0, Anion Gap 4 L, BUN 24 H, Creatinine 0.56 L, Estim Creat Clear Calc 167.92, Est GFR (MDRD) Af Amer 190, Est GFR (MDRD) Non-Af 157, BUN/Creatinine Ratio 42.8 H, Glucose 169 H, Calcium 7.5 L, Phosphorus 1.9 L, Magnesium 1.9 10/05/21 06:18: POC Glucose 169 H Micro: Microbiology 09/29/21 05:45 Stool Ova and Parasites - Final 09/30/21 13:05 Mario Samuel Drainage Gram Stain - Final 09/30/21 13:05 Mario Samuel Drainage Body Fluid Culture - Final Escherichia coli 09/30/21 13:05 Mario Samuel Drainage Anaerobic Culture - Preliminary Checking for anaerobes, further studies to follow. 10/01/21 17:10 Nasal Secretion SARS-CoV-2 Antigen (Rapid) - Final 09/29/21 05:45 Stool Enteric Bacteriology - Final 09/28/21 15:40 Stool Stool Lactoferrin - Final 09/28/21 15:40 Stool C. difficile DNA Amplification - Final 09/21/21 01:18 Nasal Secretion SARS-CoV-2 Antigen (Rapid) - Final Radiography Diagnostic Testing: Radiology Impression KUB X-Ray 10/05/21 01:55 IMPRESSION: Bowel gas pattern most consistent with a partial small bowel obstruction Electronically Signed: Derek Barton MD at 3:33 EST , Physical Exam Const Constitutional Narrative: Mild distress from lack of sleep and ongoing discomfort from nasogastric tube/abdomen Resp normal respiratory effort GI GI Narrative: Distended, tender to palpation about incisions. Right lower quadrant drain with serosanguineous output. There is a small amount of serous fluid coming from the patient's laparotomy site. The prior left lower quadrant drain site also is draining a small amount of serous fluid. Assessment & Plan Assessment/Plan (1) S/P laparoscopic appendectomy: PLAN: Patient required return to the OR on 09/24/2021 after pathology reported they did not identify appendix in the patient's surgical specimen from 09/21/2021. Therefore, patient is postoperative day 11 from hand-assisted laparoscopic appendectomy with drain placement. Unfortunately, patient developed evidence of a controlled perforation from the terminal ileum?per drain study 10/01/2021. He was thus n.p.o. and initiated TPN. He was then taken for open ileocecectomy on 10/02/2021 (2) Appendicitis with perforation: PLAN: Status post above operative course (3) Perforation of small intestine: PLAN: Patient postoperative day 3 from open ileocecectomy. Yesterday, patient confirmed suspicion of postoperative ileus. Initially had low volume bout of bilious emesis and reported feeling better, but overnight this recurred and he did require placement of a nasogastric tube. At bedside this morning, patient developed severe nausea and his nasogastric tube was troubleshooting. Appeared to be an occlusion of his stump and once tube function was restored, there was output of greater than 700 mL bilious fluid. Patient does state that he had a small amount of flatus this morning, but given the volume coming out of his nasogastric tube will plan to remain on a conservative course for this ileus. There is also some darker output from the nasogastric tube concerning for possible gastric irritation so I will begin pantoprazole today. Continue TPN. I have, again, encouraged him to mobilize more today. Patient's leukocytosis is in a plateau today and his drain output remains clear. We will continue Zosyn given intraoperative contamination. Neuro: As needed Dilaudid, add Toradol 15 mg every 6 hours scheduled x2 days Pulm/CV: Supplemental O2 as needed; wean as able, DuoNebs every 6 hours while awake, diuresing to see if this will decrease the oxygen requirement, telemetry FEN/GI: K-Phos 21 mmol x 1. Restrict to n.p.o. with TPN?renew TPN today. Add pantoprazole given darker nasogastric tube output. Added Reglan as 2nd line antiemetic. Nasogastric tube to low intermittent wall suction?please ensure that sump is clear of all fluid. : Need to elevate patient's scrotum on a rolled towel while in bed to relieve some scrotal edema. Heme/ID: Hemoglobin slightly down trended but this could represent hemodilution we will continue to monitor, continue Zosyn given contamination noted during the case on 10/02/2021. Drain output still serosanguineous?larger volume overnight but suspect this could be due to spontaneous repositioning of the drain within the peritoneal cavity/pelvis. Endo: No current issues Proph: SCDs, patient encouraged to ambulate and be up and out of bed in a chair as much as possible Dispo: Continue inpatient care Charges/Coding Visit Charges Inpatient E&M: 18719 Subs Hosp L2
[2021-10-05] MEDS: Famotidine 20mg IV Push Syringe Q12 300 MG IV (09:16)
[2021-10-05] MEDS: 0.9% Saline Lock 10 ML Syringe IV ×3 (10:20→16:06)
[2021-10-05] MEDS: Nystatin Powder 15gm Bottle 1 APPLIC TOPICAL ×2 (12:28→21:44)
[2021-10-05] MEDS: TPN - Clinimix E 8%-14% Soln 2,000 ML with Multivitamins 10 ML, Trace Elements 1 ML, Fo... 63 ML IV (16:04)
--- NOTE | 2021-10-05 16:40 | CM.ED ---
RAVEN Note Referral Source: RAVEN MS3 Referral Reason: Advanced Directives SW met with patient and his . 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 stated that patient's sister want his financial and medical information and have been calling up to the hospital. RAVEN explained that medical and financial records are protected and individuals can only have access if there is a DEEPA or court order. SW reviewed Advanced Directives. Patient said that he is tired and would like to do the form later. SW encouraged patient to complete the advanced Directives except for the signature page and patient could follow up with assigned social work supervisor next week. Plan: Advanced Directives provided Felicia BANDA
[2021-10-05] MEDS: Pramipexole Di-HCl 0.5 MG Tablet PO (21:46)
[2021-10-06] VITALS (7 sets, daily range): BP systolic 130–157; BP diastolic 71–77; PULSE 89–98; RESP 16–20; TEMP 36.6–36.8; O2SAT 94–97
[2021-10-06 00:26] LABS: Bedside Glucose 140 mg/dL (74-106)
[2021-10-06] MEDS: BENZOCAINE/MENTHOL 1 LOZENGE MUCOUS MEM ×3 (01:32→23:42)
[2021-10-06 05:58] LABS: Absolute Lymphocyte Count 0.98 X10^3/uL (0.83-4.51); Absolute Neutrophil Count 10.9 X10^3/uL (2.0-7.7); Basophil# 0.05 X10^3/uL; Basophil% 0.4 % (0-1); Eosinophil# 0.05 X10^3/uL; Eosinophils% 0.4 % (0-5); Hematocrit 32.4 % (40-54); Hemoglobin 10.7 g/dL (13.0-16.5); Lymphocyte # 0.98 X10^3/ul (0.83-4.51); Lymphocyte % 7.5 % (19-41); Mean Corpuscular Hgb 32.1 pg (27.0-32.0); Mean Corpuscular Volume 97.3 fL (80-94); Mean Platelet Vol. 9.6 fl (6.2-12.0); Monocyte# 1.05 X10^3/uL; NRBC Flagged by Analyzer 0 % (0-5); Neutrophil # 10.87 X10^3/uL (2.7-7.7); Neutrophil % 82.9 % (47-70); Platelet Count 395 K/mm3 (150-450); RBC Distribution Width CV 14.6 % (11.6-14.6); RBC Distribution Width SD 52.6 fl (35.1-43.9); Red Blood Count 3.33 M/mm3 (4.6-6.2); White Blood Count 13.1 K/mm3 (4.4-11.0)
--- NOTE | 2021-10-06 06:20 | RAD_ITS ---
STUDY: X-RAY - ABDOMEN/PELVIS REASON FOR EXAM: Male, 61 years old. NG placement TECHNIQUE: Single AP view of the abdomen / pelvis. COMPARISON: None. FINDINGS: An NG tube is seen its tip is below the diaphragm is in good position. . There are dilated loops of the small intestine with a non-distended colon consistent with a small bowel obstruction. There is no demonstrated free abdominal air. The visualized liver, spleen and kidneys are grossly normal in size and morphology. Normal soft tissue structures. Normal visualized osseous structures. RAD/Abdomen Single View (Portable) IMPRESSION: There are dilated loops of the small intestine with a non-distended colon consistent with a small bowel obstruction. Electronically Signed: Rashawn Klein MD at 7:05 EST ,
[2021-10-06 06:23] LABS: Anion Gap 3 (5-15); BUN 29 mg/dL (7-18); BUN/Creat Ratio 43.6 RATIO (10-20); Calcium,Total 8.2 mg/dL (8.5-10.1); Chloride 115 mmol/L (98-107); Creatinine, Serum 0.66 mg/dL (0.70-1.30); EST Glomerular Filtration Rate 129 mL/min (>60); Est Glom Filt Rate - Afr Amer 156 mL/min (>60); Estimated Creatinine Clearance 142.47 ml/min; Glucose 142 mg/dL (74-106); Phosphorus 2.3 mg/dL (2.5-4.9); Potassium 3.7 mmol/L (3.5-5.1); Sodium Level 143 mmol/L (136-145)
[2021-10-06] MEDS: Ketorolac 15 MG/ML Vial IV ×4 (06:30→23:37)
[2021-10-06 07:05] LABS: Bedside Glucose 153 mg/dL (74-106)
[2021-10-06] MEDS: Ipratropium/Albuterol Sulfate 3 ML AMPUL.NEB INHALATION ×3 (07:30→19:52)
--- NOTE | 2021-10-06 08:59 | PN.SURG_ITS ---
Subjective Subjective Patient seen and examined during AM rounds. He reports that he feels like he is losing ground due to weakness and feeling depressed. He admits to involuntarily pulling out his nasogastric tube overnight. He denies any present nausea. He states that he has had a couple bouts of flatus but nothing consistent. He is quite uncomfortable from his abdominal distention. Objective Data Objective Data Vital Signs: Vital Signs Temp Pulse Resp BP Pulse Ox 97.8 F 90 20 H 130/71 H 95 10/06/21 07:05 10/06/21 07:31 10/06/21 07:31 10/06/21 07:05 10/06/21 07:31 Oxygen Flow Rate (L/min) [At 2 REST with Oxygen] Oxygen Flow Rate (L/min) 4 Oxygen Delivery Method Nasal Cannula Weight: 239 lb 10.279 oz Body Mass Index (BMI) 28.5 Intake & Output: Intake and Output for Last 24 Hours 10/04/21 10/05/21 10/06/21 23:59 23:59 23:59 Intake Total 6335.15 / 6335.15 4007.50 / 4007.50 50 / 50 Output Total 1805 / 1805 1550 / 1550 1935 / 1935 Balance 4530.15 / 4530.15 2457.50 / 2457.50 -1885 / -1885 Lab / Micro Data Result Diagrams: 10/06/21 05:40 10/06/21 05:40 Labs: Laboratory Results - last 24 hr 10/06/21 00:20: POC Glucose 140 H 10/06/21 05:40: WBC 13.1 H, RBC 3.33 L, Hgb 10.7 L, Hct 32.4 L, MCV 97.3 H, MCH 32.1 H, MCHC 33.0, RDW Std Deviation 52.6 H, RDW Coeff of Ar 14.6, Plt Count 395, MPV 9.6, Immature Gran % (Auto) 0.800, Neut % (Auto) 82.9 H, Lymph % (Auto) 7.5 L, [place] % (Auto) 8.0, Eos % (Auto) 0.4, Baso % (Auto) 0.4, Absolute Neuts (auto) 10.9 H, Absolute Lymphs (auto) 0.98, Nucleated RBC % 0 10/06/21 05:40: Sodium 143, Potassium 3.7, Chloride 115 H, Carbon Dioxide 25.0, Anion Gap 3 L, BUN 29 H, Creatinine 0.66 L, Estim Creat Clear Calc 142.47, Est GFR (MDRD) Af Amer 156, Est GFR (MDRD) Non-Af 129, BUN/Creatinine Ratio 43.6 H, Glucose 142 H, Calcium 8.2 L, Phosphorus 2.3 L, Magnesium 2.0 10/06/21 06:59: POC Glucose 153 H Micro: Microbiology 09/29/21 05:45 Stool Ova and Parasites - Final 09/30/21 13:05 Mario Samuel Drainage Gram Stain - Final 09/30/21 13:05 Mario Samuel Drainage Body Fluid Culture - Final Escherichia coli 09/30/21 13:05 Mario Samuel Drainage Anaerobic Culture - Preliminary Checking for anaerobes, further studies to follow. 10/01/21 17:10 Nasal Secretion SARS-CoV-2 Antigen (Rapid) - Final 09/29/21 05:45 Stool Enteric Bacteriology - Final 09/28/21 15:40 Stool Stool Lactoferrin - Final 09/28/21 15:40 Stool C. difficile DNA Amplification - Final 09/21/21 01:18 Nasal Secretion SARS-CoV-2 Antigen (Rapid) - Final Radiography Diagnostic Testing: Radiology Impression KUB X-Ray 10/06/21 06:20 IMPRESSION: There are dilated loops of the small intestine with a non-distended colon consistent with a small bowel obstruction. Electronically Signed: Rashawn Klein MD at 7:05 EST Reading Location ID and State: [facility] / [place] Tel , Service support , Physical Exam Const Constitutional Narrative: Mild distress from abdominal discomfort and depressed mental status Resp normal respiratory effort Resp Narrative: Nasal cannula in place GI GI Narrative: Distended, midline draining seroma with clear serous fluid. Improved margin of erythema about laparotomy site. Left lower quadrant drain site clear with scant drainage. Right lower quadrant drain with serous drainage. Patient tender to palpation diffusely focused about his laparotomy Assessment & Plan Assessment/Plan (1) S/P laparoscopic appendectomy: PLAN: Patient required return to the OR on 09/24/2021 after pathology r eported they did not identify appendix in the patient's surgical specimen from 09/21/2021. Therefore, patient is postoperative day 12 from hand-assisted laparoscopic appendectomy with drain placement. Unfortunately, patient developed evidence of a controlled perforation from the terminal ileum?per drain study 10/01/2021. He was thus n.p.o. and initiated TPN. He was then taken for open ileocecectomy on 10/02/2021 (2) Appendicitis with perforation: PLAN: Status post above operative course (3) Perforation of small intestine: PLAN: Patient postoperative day 4 from open ileocecectomy. Patient currently facing a dense postoperative ileus. Some ice chip intake is factored into this volume, but patient did have over 2 L output through his nasogastric tube yesterday. This required replacement today. Patient, again, states he had a small amount of flatus this morning. Darker output from nasogastric tube appears resolved. Continue TPN. I have, again, encouraged him to mobilize more today. Patient's leukocytosis improved today and his drain output remains clear. We will continue Zosyn given intraoperative contamination. Neuro: As needed Dilaudid?but decreased to 0.5 mg every 3 hours as needed p ostoperative pain, add Toradol 15 mg every 6 hours scheduled x2 days Pulm/CV: Supplemental O2 as needed; wean as able, DuoNebs every 6 hours while awake, diuresing to see if this will decrease the oxygen requirement, telemetry FEN/GI: K-Phos 15 mmol x 1. Monitor patient's creatinine his urine output seems marginal. We will bolus 500 mL normal saline x1. Restrict to n.p.o. with TPN?renew TPN today. Pantoprazole given darker nasogastric tube output. Reglan as 2nd line antiemetic. Nasogastric tube to low intermittent wall suction?PLEASE ensure that sump is clear of all fluid. : Need to elevate patient's scrotum on a rolled towel while in bed to relieve some scrotal edema. Heme/ID: Hemoglobin stabilized. Continue Zosyn given contamination noted during the case on 10/02/2021. Drain output still serosanguineous?larger volume overnight but suspect this could be due to spontaneous repositioning of the drain within the peritoneal cavity/pelvis. Endo: No current issues Proph: SCDs, patient encouraged to ambulate and be up and out of bed in a chair as much as possible Dispo: Continue inpatient care Charges/Coding Visit Charges Inpatient E&M: 97834 Subs Hosp L2
[2021-10-06] MEDS: Nystatin Powder 15gm Bottle 1 APPLIC TOPICAL ×2 (09:37→20:28)
[2021-10-06] MEDS: 0.9% Saline Lock 10 ML Syringe IV ×5 (10:46→23:38)
[2021-10-06] MEDS: HYDROmorphone 0.5 MG/0.5 ML SYRINGE IV ×4 (10:46→20:15)
[2021-10-06] MEDS: TPN - Clinimix E 8%-14% Soln 2,000 ML with Multivitamins 10 ML, Trace Elements 1 ML, Fo... 63 ML IV (16:16)
[2021-10-06] MEDS: 0.9% Normal Saline 1,000 ML 75 ML IV (20:23)
[2021-10-06 23:46] LABS: Bedside Glucose 140 mg/dL (74-106)
[2021-10-07] VITALS (7 sets, daily range): BP systolic 149–158; BP diastolic 82–88; PULSE 85–97; RESP 16–18; TEMP 36.5–36.9; O2SAT 94–96
--- NOTE | 2021-10-07 02:37 | EKG12_ITS ---
Test Reason : CP Blood Pressure : / mmHG Vent. Rate : 081 BPM Atrial Rate : 081 BPM P-R Int : 154 ms QRS Dur : 158 ms QT Int : 408 ms P-R-T Axes : 052 016 -02 degrees QTc Int : 473 ms Normal sinus rhythm Right bundle branch block Abnormal ECG When compared with ECG of 02-OCT-2021 05:22, Questionable change in QRS axis Inverted T waves have replaced nonspecific T wave abnormality in Inferior leads Confirmed by TESS MITCHELL, JOSE ([id number]), editor magazine SHAHIDA ESCOBAR ([id number]) on 10/07/2021 2:26:10 PM Referred By: VIKY Confirmed By:JOSE PULIDO MD
[2021-10-07 02:41] LABS: Bedside Glucose 143 mg/dL (74-106)
[2021-10-07 03:29] LABS: Absolute Lymphocyte Count 1.11 X10^3/uL (0.83-4.51); Absolute Neutrophil Count 9.8 X10^3/uL (2.0-7.7); Basophil# 0.05 X10^3/uL; Basophil% 0.4 % (0-1); Eosinophil# 0.05 X10^3/uL; Eosinophils% 0.4 % (0-5); Hemoglobin 9.7 g/dL (13.0-16.5); Lymphocyte # 1.11 X10^3/ul (0.83-4.51); Lymphocyte % 9.2 % (19-41); Mean Corp Hgb Conc 33.4 g/dL (32-36); Mean Corpuscular Hgb 32.6 pg (27.0-32.0); Mean Corpuscular Volume 97.3 fL (80-94); Mean Platelet Vol. 9.5 fl (6.2-12.0); Monocyte# 0.93 X10^3/uL; Monocyte% 7.7 % (0-10); NRBC Flagged by Analyzer 0 % (0-5); Neutrophil % 81.6 % (47-70); Platelet Count 351 K/mm3 (150-450); RBC Distribution Width CV 14.6 % (11.6-14.6); RBC Distribution Width SD 52.3 fl (35.1-43.9); Red Blood Count 2.98 M/mm3 (4.6-6.2)
[2021-10-07] MEDS: HYDROmorphone 0.5 MG/0.5 ML SYRINGE IV ×6 (03:37→21:16)
[2021-10-07 03:45] LABS: Anion Gap 3 (5-15); BUN 28 mg/dL (7-18); BUN/Creat Ratio 51.5 RATIO (10-20); Calcium,Total 7.6 mg/dL (8.5-10.1); Chloride 117 mmol/L (98-107); Creatinine, Serum 0.54 mg/dL (0.70-1.30); EST Glomerular Filtration Rate 162 mL/min (>60); Est Glom Filt Rate - Afr Amer 197 mL/min (>60); Estimated Creatinine Clearance 174.14 ml/min; Glucose 139 mg/dL (74-106); Magnesium 2.2 mg/dL (1.6-2.6); Phosphorus 2.4 mg/dL (2.5-4.9); Potassium 3.7 mmol/L (3.5-5.1); Sodium Level 144 mmol/L (136-145)
[2021-10-07 03:46] LABS: Troponin-I HS 13 pg/mL (3.0-78.0)
[2021-10-07 05:25] LABS: Troponin-I HS 11 pg/mL (3.0-78.0)
[2021-10-07] MEDS: 0.9% Saline Lock 10 ML Syringe IV (05:40)
[2021-10-07] MEDS: Ketorolac 15 MG/ML Vial IV (05:40)
[2021-10-07] MEDS: Heparin Injection (Vial) 5,000 UNIT/ML VIAL 5000 UNIT SC ×3 (05:46→21:14)
[2021-10-07] MEDS: BENZOCAINE/MENTHOL 1 LOZENGE MUCOUS MEM ×3 (05:52→21:15)
[2021-10-07] MEDS: Ipratropium/Albuterol Sulfate 3 ML AMPUL.NEB INHALATION ×3 (07:20→19:48)
--- NOTE | 2021-10-07 08:03 | PCM.PN.SRG ---
Subjective Subjective Patient seen and examined during AM rounds. He reports that he is feeling better. He does report that he had a difficult night last night with some left shoulder pains that have spontaneously remitted. Cardiac work-up was performed given the concern for atypical chest pain but this was negative. Mr. Martin reports ongoing flatus. Objective Data Objective Data Vital Signs: Vital Signs Temp Pulse Resp BP Pulse Ox 98.3 F 87 18 152/82 H 94 10/07/21 02:38 10/07/21 07:22 10/07/21 07:22 10/07/21 02:38 10/07/21 07:22 Oxygen Flow Rate (L/min) [At 2 REST with Oxygen] Oxygen Flow Rate (L/min) 2 Oxygen Delivery Method Nasal Cannula Weight: 237 lb 7.005 oz Body Mass Index (BMI) 28.5 Intake & Output: Intake and Output for Last 24 Hours 10/05/21 10/06/21 10/07/21 23:59 23:59 23:59 Intake Total 4007.50 / 4007.50 3538.55 / 3538.55 50 / 50 Output Total 1550 / 1550 3070 / 3070 1285 / 1285 Balance 2457.50 / 2457.50 468.55 / 468.55 -1235 / -1235 Lab / Micro Data Result Diagrams: 10/07/21 03:15 10/07/21 03:15 Labs: Laboratory Results - last 24 hr 10/06/21 23:35: POC Glucose 140 H 10/07/21 02:28: POC Glucose 143 H 10/07/21 03:15: WBC 12.0 H, RBC 2.98 L, Hgb 9.7 L, Hct 29.0 L, MCV 97.3 H, MCH 32.6 H, MCHC 33.4, RDW Std Deviation 52.3 H, RDW Coeff of Ar 14.6, Plt Count 351, MPV 9.5, Immature Gran % (Auto) 0.700, Neut % (Auto) 81.6 H, Lymph % (Auto) 9.2 L, [place] % (Auto) 7.7, Eos % (Auto) 0.4, Baso % (Auto) 0.4, Absolute Neuts (auto) 9.8 H, Absolute Lymphs (auto) 1.11, Nucleated RBC % 0 10/07/21 03:15: Sodium 144, Potassium 3.7, Chloride 117 H, Carbon Dioxide 24.0, Anion Gap 3 L, BUN 28 H, Creatinine 0.54 L, Estim Creat Clear Calc 174.14, Est GFR (MDRD) Af Amer 197, Est GFR (MDRD) Non-Af 162, BUN/Creatinine Ratio 51.5 H, Glucose 139 H, Calcium 7.6 L, Phosphorus 2.4 L, Magnesium 2.2 10/07/21 03:15: Troponin I High Sens 13 10/07/21 04:54: Troponin I High Sens 11 Micro: Microbiology 09/30/21 13:05 Mario Samuel Drainage Gram Stain - Final 09/30/21 13:05 Mraio Samuel Drainage Body Fluid Culture - Final Escherichia coli 09/30/21 13:05 Mario Samuel Drainage Anaerobic Culture - Final Bacteroides thetaiotaomicron Clostridium ramosum 09/29/21 05:45 Stool Ova and Parasites - Final 10/01/21 17:10 Nasal Secretion SARS-CoV-2 Antigen (Rapid) - Final 09/29/21 05:45 Stool Enteric Bacteriology - Final 09/28/21 15:40 Stool Stool Lactoferrin - Final 09/28/21 15:40 Stool C. difficile DNA Amplification - Final 09/21/21 01:18 Nasal Secretion SARS-CoV-2 Antigen (Rapid) - Final Physical Exam Const oriented x3 Resp normal respiratory effort GI GI Narrative: Decreased abdominal distention, improving redness about midline laparotomy wound, but there is ongoing serous/slightly cloudy drainage from the midpoint of this wound. Left lower quadrant drain site clear. Right lower quadrant drain site with serous output. Decreased abdominal tenderness Assessment & Plan Assessment/Plan (1) S/P laparoscopic appendectomy: PLAN: Patient required return to the OR on 09/24/2021 after pathology reported they did not identify appendix in the patient's surgical specimen from 09/21/2021. Therefore, patient is postoperative day 13 from hand-assisted laparoscopic appendectomy with drain placement. Unfortunately, patient developed evidence of a controlled perforation from the terminal ileum?per drain study 10/01/2021. He was thus n.p.o. and initiated TPN. He was then taken for open ileocecectomy on 10/02/2021 (2) Appendicitis with perforation: PLAN: Status post above operative course (3) Perforation of small intestine: PLAN: Patient postoperative day 5 from open ileocecectomy. Patient appears to be slowly resolving postoperative ileus with more consistent flatus. Patient admits to over indulging in ice chips, but was better about restricting yesterday along with being limited by nursing. This resulted in a having of his total NG output. Furthermore, the output is clear today. I would like to assess his volume over the next 12 hours and potentially perform a clamp trial. Continue TPN. I have, again, encouraged him to mobilize more today. Patient's leukocytosis improved today and his drain output remains clear. We will continue Zosyn given intraoperative contamination and the presence of some cloudy drainage from his wound. Wound was cultured and result will be followed but if this is negative we will be able to remove the antibiotic. Neuro: As needed Dilaudid?but decreased to 0.5 mg every 3 hours as needed postoperative pain, add Toradol 15 mg every 6 hours scheduled x2 days (due to stop today) Pulm/CV: Supplemental O2 as needed; wean as able, DuoNebs every 6 hours while awake, diuresing to see if this will decrease the oxygen requirement, telemetry FEN/GI: K-Phos 15 mmol x 1. Lasix 20 mg x 1 as is noted patient's weight is up approximately 5 pounds from admission. N.p.o. with TPN?renew TPN today. Pantoprazole given darker nasogastric tube output. Reglan as 2nd line antiemetic. Nasogastric tube to low intermittent wall suction?PLEASE ensure that sump is clear of all fluid. : Need to elevate patient's scrotum on a rolled towel while in bed to relieve some scrotal edema. Heme/ID: Hemoglobin slightly down trended. Continue Zosyn given contamination noted during the case on 10/02/2021. Follow-up wound cultures from 10/07/2021. Endo: No current issues Proph: SCDs, patient encouraged to ambulate and be up and out of bed in a chair as much as possible Dispo: Continue inpatient care Charges/Coding Visit Charges Inpatient E&M: 79000 Subs Hosp L2
[2021-10-07 09:08] LABS: Troponin-I HS 11 pg/mL (3.0-78.0)
[2021-10-07] MEDS: Nystatin Powder 15gm Bottle 1 APPLIC TOPICAL ×2 (09:25→21:15)
[2021-10-07] MEDS: 0.9% Normal Saline 1,000 ML 75 ML IV (09:25)
[2021-10-07] MEDS: Furosemide 20 MG/2 ML VIAL IV (09:29)
[2021-10-07 13:15] LABS: Bedside Glucose 146 mg/dL (74-106)
--- NOTE | 2021-10-07 14:56 | CHAPLAIN ---
Type of Pastoral Visit ___ Initial Visit _x__ Follow-up Visit ___ On-call Visit ___ General Patient Visit ___ Spiritual Assessment ___ Family Conference ___ Bereavement ___ Rapid Response ___ Code Blue ___ Other (describe below) Pastoral Care Referral From ___ Patient ___ Family _x__ Nurse ___ Physician ___ Classification Counselor ___ Cartographic Drafter ___ Other (describe below) Sacrament/Intervention _x__ Active listening ___ Anointing ___ Jewish ___ Bereavement ___ Communion _x__ Angelica exploration ___ _x__ Life review _x__ Prayer ___ Reconciliation ___ Sacrament of Sick _x__ Supportive presence ___ Wedding ___ Other (describe below) Pastoral Comments RN recommended this follow up visit to patient; pt is welcoming and begins to address his concerns about family members and their unrealistic expectations and 'ways that manipulate him as the little brother'; pt appears frustrated in tone of voice and expresses the same; affirmed pt in dealing with his health issues and not being pressured to make other decisions while he is trying himself to recover; pt identifies as a believer and eagerly welcomes support through presence and prayer; pt welcomes future visits
[2021-10-07] MEDS: TPN - Clinimix E 8%-14% Soln 2,000 ML with Multivitamins 10 ML, Trace Elements 1 ML, Fo... 63 ML IV (15:40)
[2021-10-07] MEDS: Fat Emulsions 20% 250 ML IV (15:45)
--- NOTE | 2021-10-07 16:00 | CASEMGMT ---
Noted pt declining therapy for the last couple of days. MIRACLE LAMA in to pt room, pt lying in bed with NG in. AIRCRAFT CAPTAIN ready to take pt out of room. Pt states he has a lot going on right now and to bear with me. Pt states not only is he having a difficult time medically but he is having family issues as well. Asked if pt would like to speak to VEGETABLE TESTER, he states he has been speaking to the voice coach. Made him aware this RN KELBY will continue to check in on him. He states that's the best thing you can do. Pt stated I don't care if I ....well I am not going to say that, these girls have done so much here for me referring to AIRCRAFT CAPTAIN in the room. MIRACLE LAMA to follow.
--- NOTE | 2021-10-07 16:01 | NURSING ---
pt to x ray
--- NOTE | 2021-10-07 16:05 | RAD_ITS ---
STUDY: X-RAY - ABDOMEN/PELVIS REASON FOR EXAM: Male, 61 years old. f/u ileus TECHNIQUE: Single AP view of the abdomen / pelvis. COMPARISON: 10/06/2021 FINDINGS: Enteric tube in the stomach. NICHOLE rods lumbar spine. Catheter right abdomen unchanged in position. Distended loops of small bowel. There is no demonstrated free abdominal air. The visualized liver, spleen and kidneys are grossly normal in size and morphology. Surgical clips lower abdomen. Normal soft tissue structures. Normal visualized osseous structures. RAD/Abdomen Single View (Portable) IMPRESSION: Small bowel obstruction versus ileus unchanged Electronically Signed: Fabiano Joyce MD at 21:57 EST ,
[2021-10-07 17:46] LABS: Bedside Glucose 153 mg/dL (74-106)
--- NOTE | 2021-10-07 23:06 | RAD_ITS ---
STUDY: X-RAY - ABDOMEN/PELVIS REASON FOR EXAM: Male, 61 years old. insertion of NG TECHNIQUE: Single AP view of the abdomen / pelvis. COMPARISON: 4:13 PM FINDINGS: Normal visualized lung bases. Gas-filled loops of small bowel. Enteric tube in the stomach. The visualized liver, spleen and kidneys are grossly normal in size and morphology. Normal soft tissue structures. Normal visualized osseous structures. RAD/Abdomen Single View IMPRESSION: Enteric tube in the stomach. Side hole below the GE junction. Ileus versus small bowel obstruction unchanged. Lower abdomen and pelvis not included within the [id number]. Electronically Signed: Fabiano Joyce MD at 0:11 EST ,
[2021-10-08] VITALS (7 sets, daily range): BP systolic 136–156; BP diastolic 67–78; PULSE 87–101; RESP 16–22; TEMP 36.5–36.9; O2SAT 93–95
[2021-10-08] MEDS: HYDROmorphone 0.5 MG/0.5 ML SYRINGE IV ×5 (00:17→13:35)
[2021-10-08] MEDS: 0.9% Normal Saline 1,000 ML 75 ML IV ×2 (00:18→16:06)
[2021-10-08 00:25] LABS: Bedside Glucose 144 mg/dL (74-106)
[2021-10-08] MEDS: BENZOCAINE/MENTHOL 1 LOZENGE MUCOUS MEM ×2 (03:24→05:40)
[2021-10-08] MEDS: Heparin Injection (Vial) 5,000 UNIT/ML VIAL 5000 UNIT SC ×3 (05:27→21:20)
[2021-10-08 05:51] LABS: Bedside Glucose 139 mg/dL (74-106)
[2021-10-08 06:21] LABS: Absolute Lymphocyte Count 1.24 X10^3/uL (0.83-4.51); Absolute Neutrophil Count 9.5 X10^3/uL (2.0-7.7); Basophil# 0.06 X10^3/uL; Basophil% 0.5 % (0-1); Eosinophils% 0.8 % (0-5); Hematocrit 30.1 % (40-54); Hemoglobin 9.9 g/dL (13.0-16.5); Lymphocyte # 1.24 X10^3/ul (0.83-4.51); Lymphocyte % 10.5 % (19-41); Mean Corp Hgb Conc 32.9 g/dL (32-36); Mean Corpuscular Hgb 31.6 pg (27.0-32.0); Mean Corpuscular Volume 96.2 fL (80-94); Mean Platelet Vol. 10.1 fl (6.2-12.0); Monocyte# 0.85 X10^3/uL; Monocyte% 7.2 % (0-10); NRBC Flagged by Analyzer 0 % (0-5); Neutrophil # 9.48 X10^3/uL (2.7-7.7); Neutrophil % 80.3 % (47-70); Platelet Count 383 K/mm3 (150-450); RBC Distribution Width SD 53.1 fl (35.1-43.9); Red Blood Count 3.13 M/mm3 (4.6-6.2); White Blood Count 11.8 K/mm3 (4.4-11.0)
[2021-10-08 06:45] LABS: Anion Gap 3 (5-15); BUN 22 mg/dL (7-18); BUN/Creat Ratio 37.2 RATIO (10-20); Calcium,Total 8.1 mg/dL (8.5-10.1); Chloride 117 mmol/L (98-107); Creatinine, Serum 0.59 mg/dL (0.70-1.30); EST Glomerular Filtration Rate 148 mL/min (>60); Est Glom Filt Rate - Afr Amer 179 mL/min (>60); Estimated Creatinine Clearance 159.38 ml/min; Glucose 128 mg/dL (74-106); Phosphorus 2.6 mg/dL (2.5-4.9); Potassium 3.4 mmol/L (3.5-5.1); Sodium Level 145 mmol/L (136-145)
[2021-10-08] MEDS: Ipratropium/Albuterol Sulfate 3 ML AMPUL.NEB INHALATION ×2 (06:54→19:35)
--- NOTE | 2021-10-08 08:46 | PCM.PN.SRG ---
Subjective Subjective Patient seen and examined during AM rounds. I was notified last night that the patient had inadvertently pulled his nasogastric tube and required reinsertion (to that point nursing had recorded over 3 L of nasogastric tube output). Patient denies any nausea this morning. He reports ongoing flatus. He reports a strong appetite. He also complains of a sore throat. Objective Data Objective Data Vital Signs: Vital Signs Temp Pulse Resp BP Pulse Ox 98.0 F 87 18 142/71 H 95 10/08/21 07:37 10/08/21 07:37 10/08/21 07:37 10/08/21 07:37 10/08/21 07:37 Oxygen Flow Rate (L/min) [At 2 REST with Oxygen] Oxygen Flow Rate (L/min) 3 Oxygen Delivery Method Nasal Cannula Weight: 237 lb 7.005 oz Body Mass Index (BMI) 28.5 Intake & Output: Intake and Output for Last 24 Hours 10/06/21 10/07/21 10/08/21 23:59 23:59 23:59 Intake Total 3538.55 / 3538.55 4213.25 / 4213.25 464.4 / 464.4 Output Total 3070 / 3070 5305 / 5305 1050 / 1050 Balance 468.55 / 468.55 -1091.75 / -1091.75 -585.6 / -585.6 Lab / Micro Data Result Diagrams: 10/08/21 05:31 10/08/21 05:31 Labs: Laboratory Results - last 24 hr 10/07/21 08:42: Troponin I High Sens 11 10/07/21 12:59: POC Glucose 146 H 10/07/21 17:37: POC Glucose 153 H 10/08/21 00:16: POC Glucose 144 H 10/08/21 05:31: WBC 11.8 H, RBC 3.13 L, Hgb 9.9 L, Hct 30.1 L, MCV 96.2 H, MCH 31.6, MCHC 32.9, RDW Std Deviation 53.1 H, RDW Coeff of Ar 15.0 H, Plt Count 383, MPV 10.1, Immature Gran % (Auto) 0.700, Neut % (Auto) 80.3 H, Lymph % (Auto) 10.5 L, [place] % (Auto) 7.2, Eos % (Auto) 0.8, Baso % (Auto) 0.5, Absolute Neuts (auto) 9.5 H, Absolute Lymphs (auto) 1.24, Nucleated RBC % 0 10/08/21 05:31: Sodium 145, Potassium 3.4 L, Chloride 117 H, Carbon Dioxide 25.0, Anion Gap 3 L, BUN 22 H, Creatinine 0.59 L, Estim Creat Clear Calc 159.38, Est GFR (MDRD) Af Amer 179, Est GFR (MDRD) Non-Af 148, BUN/Creatinine Ratio 37.2 H, Glucose 128 H, Calcium 8.1 L, Phosphorus 2.6, Magnesium 2.0 10/08/21 05:43: POC Glucose 139 H Micro: Microbiology 10/07/21 07:50 Incision/Surgical Site Gram Stain - Final 09/30/21 13:05 Mario Samuel Drainage Gram Stain - Final 09/30/21 13:05 Mario Samuel Drainage Body Fluid Culture - Final Escherichia coli 09/30/21 13:05 Mario Samuel Drainage Anaerobic Culture - Final Bacteroides thetaiotaomicron Clostridium ramosum 09/29/21 05:45 Stool Ova and Parasites - Final 10/01/21 17:10 Nasal Secretion SARS-CoV-2 Antigen (Rapid) - Final 09/29/21 05:45 Stool Enteric Bacteriology - Final 09/28/21 15:40 Stool Stool Lactoferrin - Final 09/28/21 15:40 Stool C. difficile DNA Amplification - Final 09/21/21 01:18 Nasal Secretion SARS-CoV-2 Antigen (Rapid) - Final Radiography Diagnostic Testing: Radiology Impression KUB X-Ray 10/07/21 16:05 IMPRESSION: Small bowel obstruction versus ileus unchanged Electronically Signed: Fabiano Joyce MD at 21:57 EST , KUB X-Ray 10/07/21 23:06 IMPRESSION: Enteric tube in the stomach. Side hole below the GE junction. Ileus versus small bowel obstruction unchanged. Lower abdomen and pelvis not included within the [id number]. Electronically Signed: Fabiano Joyce MD at 0:11 EST , Physical Exam Const Constitutional Narrative: Frustration/depression apparent Resp normal respiratory effort GI GI Narrative: Decreased abdominal distention, dressings over midline laparotomy wound saturated with a edward-yellow drainage, but there is improving erythema around the wound. The left lower quadrant drain site is closing by secondary intention without signs of infection. Right lower quadrant drain site with serosanguineous output via KELLY drain. Decreased abdominal tenderness with palpation. Narrative: Urine collection system around patient's penis. There is a strong odor of yeast and severe redness of the bilateral groins Assessment & Plan Assessment/Plan (1) S/P laparoscopic appendectomy: PLAN: Patient required return to the OR on 09/24/2021 after pathology reported they did not identify appendix in the patient's surgical specimen from 09/21/2021. Therefore, patient is postoperative day 14 from hand-assisted laparoscopic appendectomy with drain placement. Unfortunately, patient developed evidence of a controlled perforation from the terminal ileum?per drain study 10/01/2021. He was thus n.p.o. and initiated TPN. He was then taken for open ileocecectomy on 10/02/2021 (2) Appendicitis with perforation: PLAN: Status post above operative course (3) Perforation of small intestine: PLAN: Patient postoperative day 6 from open ileocecectomy. Patient appears to be continuing resolution of postoperative ileus with more consistent flatus. Nursing has been continuing to assist with limiting patient's ice chip intake. NG tube output volume further decreased and character further clear. Nasogastric tube was replaced last night due to the significant volume for the preceding 24 hours and follow-up placement KUB was deemed as unchanged, however, my own interpretation of the imaging I do see colonic gas beneath the less distended small bowel loops. Therefore, I find it reasonable to perform a clamp trial today. These instructions have been provided to the patient and nursing. Continue TPN. I have, again, encouraged him to mobilize more today. Patient's leukocytosis slightly improved today and his drain output remains clear. We will continue Zosyn given intraoperative contamination and the presence of some cloudy drainage from his wound. Wound was cultured (preliminarily showing rare GPC's and white cells) and result will be followed but if this is negative we will be able to remove the antibiotic. Neuro: As needed Dilaudid?but decreased to 0.5 mg every 3 hours as needed postoperative pain Pulm/CV: Supplemental O2 as needed; wean as able, DuoNebs every 6 hours while awake, diuresing to see if this will decrease the oxygen requirement, telemetry FEN/GI: Replace potassium today. N.p.o. with TPN?renew TPN today. Pantoprazole given darker nasogastric tube output. Reglan as 2nd line antiemetic. Perform NG tube clamp trial for 4 hours while in chair. : We will remove patient's urine collecting system and work towards improved bathing and resolution of his yeast infection. Heme/ID: Hemoglobin stabilized. Continue Zosyn given contamination noted during the case on 10/02/2021. Follow-up wound cultures from 10/07/2021. Endo: Mild hyperglycemia related to TPN Proph: SCDs, subcu heparin every 8 hours, patient encouraged to ambulate and be up and out of bed in a chair as much as possible Dispo: Continue inpatient care
[2021-10-08] MEDS: Potassium Chloride 10mEq/100mL 10 MEQ/100 ML IV.SOLN. 100 MEQ IV BOLUS ×4 (10:08→14:10)
[2021-10-08] MEDS: Nystatin Powder 15gm Bottle 1 APPLIC TOPICAL ×2 (10:08→21:20)
--- NOTE | 2021-10-08 10:51 | CASEMGMT ---
Social Work Note SW in to speak with pt to provide support. SW reviewed chart and pt mentioned having family issues going on. SW in to speak with pt. Pt's Briana present in room. SW introduced self and role at [facility]. Pt gave this worker permission to speak to him in front of his . SW asked pt how he is doing. Pt states he is doing as good as he can be. SW asked pt about family issues that pt is reporting. Pt states I don't really want to talk about it. SW informed pt that that is fine, he doesn't have to. Pt's Briana then began talking about family issues that are happening. Briana states pt has two sisters, one older and one younger and they are psychotic.Briana states they both are trying to get pt's money, VA benefits, disability, etc. Briana states that pt's step mom recently and they are trying to get all of her money. Briana states pt's sister's have been trying to call into [facility] and security had to be called the other day. Briana states they will call different phone numbers to try and get information. SW explained that pt is own person, alert and orientated, able to decide who can get information or not. Briana states that his sister's wanted pt to go to a memorial for pt's mother but pt states he doesn't want to go. Pt states my mom didn't raise me, my dad did. SW spoke with pt about how he can decide and has the right to decide how involved or not involved he is with family members. Pt states thank you, tell that to her again. (Pt looking at his ). SW explained that it appears the relationship between his mother and sister's were not the best. Pt confirms this. Pt states his sister's are not running his life anymore. Briana states pt's sister's are wanting pt to complete HCPOA/LW so they can have information on pt. SW explained that pt has right to decide who he wants to be HCPOA and that pt has been spoken to about completing documents. SW asked pt about additional family or friend supports and pt denied. Supports: Pt states that Cheondoism is good support for him. Pt confirms that he has been speaking to Chaplain Sushil, while at [facility] and this has helped pt. Pt states he doesn't need to speak to Ray today though. Pt states he doesn't feel good today and just wants to rest in the chair today. Coping Skills: Pt identifies Cheondoism, going to taoist, as coping skills for pt. Pt unable to identify additional coping skills. Pt states I'll think about that and let you know. Mental Health Hx: Pt states he does have history of Anxiety and Depression. Briana states that pt has never actually been diagnosed though and is not on any medications. Briana states she thinks pt needs to go to Dr. Sinha, Counseling, in [place], [place]. SW spoke with pt about benefits of Counseling but again reiterated that pt has right to make own decision and can decide if he wants to do Counseling or not. Pt denied any history of suicidal thoughts/plans/ideations. Pt denied any current suicidal/homicidal thoughts/plans/ideations. Pt states he is Latter-Day. Substance Abuse Hx: Pt states he doesn't drink anymore. Financial: Pt with additional financial questions. RAVEN informed pt that if pt gets a bill for services, it will get sent in the mail, and on the bill will have number for Patient Financial Services that pt can call to review payment plans and repayment options. Brinaa states that pt also has VA services and inquired about Medicaid for pt. RAVEN informed pt and Briana that this worker can provide pt with Medicaid Application and pt can complete Medicaid Application via phone or can complete application and drop it off or mail it to [facility]. Briana states she will have pt complete application and she will drop it off to [facility]. RAVEN spent much time with pt and pt's Briana. RAVEN utilized active listening skills and provided much support to pt. Pt and Briana thanked this worker and denied additional needs or concerns at this time. RAVEN provided pt with Medicaid Application. Kayla Bernard LEAK DETECTION ENGINEER, SCREEN VENT BINDER
--- NOTE | 2021-10-08 12:51 | WOUNDNOTE ---
wound photo: abdomen
[2021-10-08 14:16] LABS: Bedside Glucose 135 mg/dL (74-106)
--- NOTE | 2021-10-08 15:05 | NURSING ---
student charting reviewed-MIRACLE Black, [employer] instructor
[2021-10-08] MEDS: TPN - Clinimix E 8%-14% Soln 2,000 ML with Multivitamins 10 ML, Trace Elements 1 ML, Fo... 63 ML IV (15:58)
[2021-10-08] MEDS: HYDROmorphone 0.5 MG/0.5 ML SYRINGE 0.25 MG IV ×3 (16:35→23:52)
[2021-10-08 18:51] LABS: Bedside Glucose 146 mg/dL (74-106)
[2021-10-09] VITALS (20 sets, daily range): BP systolic 84–172; BP diastolic 42–103; PULSE 68–116; RESP 16–26; TEMP 35.3–37.1; O2SAT 89–94; BMI 29.0
[2021-10-09 01:26] LABS: Bedside Glucose 152 mg/dL (74-106)
[2021-10-09 05:59] LABS: Absolute Lymphocyte Count 1.26 X10^3/uL (0.83-4.51); Absolute Neutrophil Count 10.5 X10^3/uL (2.0-7.7); Basophil# 0.05 X10^3/uL; Basophil% 0.4 % (0-1); Eosinophil# 0.09 X10^3/uL; Eosinophils% 0.7 % (0-5); Hematocrit 29.2 % (40-54); Hemoglobin 10.1 g/dL (13.0-16.5); Lymphocyte # 1.26 X10^3/ul (0.83-4.51); Lymphocyte % 9.9 % (19-41); Mean Corp Hgb Conc 34.6 g/dL (32-36); Mean Corpuscular Hgb 32.3 pg (27.0-32.0); Mean Corpuscular Volume 93.3 fL (80-94); Mean Platelet Vol. 9.8 fl (6.2-12.0); Monocyte% 6.3 % (0-10); NRBC Flagged by Analyzer 0 % (0-5); Neutrophil # 10.45 X10^3/uL (2.7-7.7); Platelet Count 391 K/mm3 (150-450); RBC Distribution Width CV 14.7 % (11.6-14.6); RBC Distribution Width SD 50.5 fl (35.1-43.9); Red Blood Count 3.13 M/mm3 (4.6-6.2); White Blood Count 12.7 K/mm3 (4.4-11.0)
[2021-10-09] MEDS: 0.9% Saline Lock 10 ML Syringe IV ×3 (06:11→14:05)
[2021-10-09] MEDS: Heparin Injection (Vial) 5,000 UNIT/ML VIAL 5000 UNIT SC (06:11)
[2021-10-09 06:25] LABS: Anion Gap 5 (5-15); BUN 20 mg/dL (7-18); BUN/Creat Ratio 40.2 RATIO (10-20); Calcium,Total 7.4 mg/dL (8.5-10.1); Chloride 112 mmol/L (98-107); EST Glomerular Filtration Rate 180 mL/min (>60); Est Glom Filt Rate - Afr Amer 218 mL/min (>60); Estimated Creatinine Clearance 188.07 ml/min; Glucose 140 mg/dL (74-106); Magnesium 1.8 mg/dL (1.6-2.6); Phosphorus 2.4 mg/dL (2.5-4.9); Potassium 3.3 mmol/L (3.5-5.1); Sodium Level 141 mmol/L (136-145); Triglycerides 144 mg/dL
[2021-10-09 06:27] LABS: Bedside Glucose 134 mg/dL (74-106)
[2021-10-09] MEDS: Ipratropium/Albuterol Sulfate 3 ML AMPUL.NEB INHALATION ×2 (07:46→13:05)
--- NOTE | 2021-10-09 07:47 | CT_ITS ---
We are attempting to reach an attending provider to discuss findings. An addendum with communication details will be sent when the communication is complete. EXAM: CT ABDOMEN AND PELVIS WITH INTRAVENOUS CONTRAST CLINICAL INDICATION: Possible leak from surgery, drain tube in place following appendectomy and fistula surgery. TECHNIQUE: Helically acquired images were obtained of the abdomen and pelvis with intravenous contrast. This CT exam was performed using one or more of the following dose reduction techniques: automated exposure control, adjustment of the mA and/or kV according to patient size, and/or use of iterative reconstruction technique. This report was created using [employer] report [employer] technology. CONTRAST: 100 mL of IV ISOVUE-300. Oral contrast was also given. COMPARISON: CT abdomen and pelvis without contrast 10/01/[address] abdomen pelvis with contrast 05/18/2018. FINDINGS: LOWER THORAX: Unremarkable. Lung bases are clear. No cardiomegaly. No significant pericardial effusion. ABDOMEN: LIVER: Unremarkable. Homogeneous. No focal mass. GALLBLADDER AND BILE DUCTS: Unremarkable. No calcified gallstones. No gallbladder distention or wall edema. No intra- or extrahepatic biliary ductal dilation. PANCREAS: Unremarkable. No focal cystic or solid mass. SPLEEN: Unremarkable. Normal size without focal cystic or solid mass. ADRENALS: 1.8 x 1.3 cm solid nodule in the medial limb of the right adrenal gland is unchanged. Normal left ventricular gland. KIDNEYS AND URETERS: Nonenhancing cysts in the right kidney and tiny nonenhancing cyst in the left kidney are unchanged. Normal renal size and position. STOMACH AND BOWEL: Contrast filled dilatation of the chest, and the proximal small bowel loops. Mild noncontrast filled dilatation of the distal small bowel loops. No focal inflammatory change. PELVIS: APPENDIX: Surgical sutures in the right lower abdomen from prior appendectomy. Irregular stranding of the fat around the appendectomy site. BLADDER: Small diverticula in the left side of the urinary bladder wall are unchanged. REPRODUCTIVE: Unremarkable as visualized. No mass. ABDOMEN and PELVIS: INTRAPERITONEAL SPACE: See below. RETROPERITONEAL SPACE: Faintly rim-enhancing suspicious hypodense lesion containing tiny gas bubble in the right anterior pararenal space causing posterior displacement of the right anterior Gerota''s aphasia abutting the anterior surface of the right renal cortex. This is suspicious for abscess at is a new finding. BONES/JOINTS: Kyphosis of the lumbar spine at L2 vertebral body level is unchanged. Pedicular screws and rods in the lumbar spine are intact and unchanged. No suspicious lytic or blastic abnormality. SOFT TISSUES: Midline anterior abdominal wall subcutaneous air emphysema underneath the umbilicus. The source is unknown since this is a new finding. No discrete abdominal or pelvic wall hernia. VASCULATURE: Unremarkable. Abdominal aorta is non-dilated. LYMPH NODES: Unremarkable. No enlarged lymph nodes. TUBES, LINES AND DEVICES: Surgical drain in the right side of the abdomen down to the right side of the pelvis. No definite pneumoperitoneum. CT/Abdomen/Pelvis WITH Contrast IMPRESSION: 1. Suspicious 6.2 x 5 x 5.6 cm abscess in the right anterior pararenal space. This is feasible for percutaneous diagnostic aspiration and abscess drain catheter placement. 2. Midline anterior abdominal wall/subcutaneous fat air emphysema does not appear to communicate with the peritoneal cavity but is a new finding since 10/01/2021. 3. Post operative and post inflammatory changes of the mesenteric fat around the appendectomy site. 4. Mild increased dilatation of the contrast filled stomach and proximal small bowel loops without definite zone of transition to suggest obstruction. 5. 1.8 x 1.3 cm solid nodule in the medial limb of the right adrenal gland is unchanged. ACR White Paper guidelines (Kelly, et al. JACR 2017; 14(8):1091-8621) suggest no follow-up is necessary. Electronically Signed: Beka Butler MD at 12:14 EST ,
[2021-10-09] MEDS: HYDROmorphone 0.5 MG/0.5 ML SYRINGE 0.25 MG IV ×3 (07:54→14:04)
--- NOTE | 2021-10-09 07:54 | PN.SURG_ITS ---
Subjective Subjective Patient seen and examined during AM rounds. He reports that he is feeling well this morning. He denies any nausea or vomiting response to his liquids. Unfortunately, he does admit to over indulging and apologizes stating sorry doc I just got thirsty. He denies any further abdominal pain, but he does feel more distended. Ongoing flatus, but no additional bowel movements. Objective Data Objective Data Vital Signs: Vital Signs Temp Pulse Resp BP Pulse Ox 97.6 F L 100 20 H 155/85 H 93 10/09/21 02:28 10/09/21 07:46 10/09/21 07:46 10/09/21 02:28 10/09/21 07:46 Oxygen Flow Rate (L/min) [At 2 REST with Oxygen] Oxygen Flow Rate (L/min) 3 Oxygen Delivery Method Room Air Weight: 238 lb 1.588 oz Body Mass Index (BMI) 28.5 Intake & Output: Intake and Output for Last 24 Hours 10/07/21 10/08/21 10/09/21 23:59 23:59 23:59 Intake Total 4213.25 / 4213.25 5042.40 / 5042.40 350 / 350 Output Total 5305 / 5305 2910 / 2910 400 / 400 Balance -1091.75 / -1091.75 2132.40 / 2132.40 -50 / -50 Lab / Micro Data Result Diagrams: 10/09/21 05:45 10/09/21 05:45 Labs: Laboratory Results - last 24 hr 10/08/21 13:08: POC Glucose 135 H 10/08/21 18:46: POC Glucose 146 H 10/08/21 23:56: POC Glucose 152 H 10/09/21 05:45: WBC 12.7 H, RBC 3.13 L, Hgb 10.1 L, Hct 29.2 L, MCV 93.3, MCH 32.3 H, MCHC 34.6 D, RDW Std Deviation 50.5 H, RDW Coeff of Ar 14.7 H, Plt Count 391, MPV 9.8, Immature Gran % (Auto) 0.700, Neut % (Auto) 82.0 H, Lymph % (Auto) 9.9 L, [place] % (Auto) 6.3, Eos % (Auto) 0.7, Baso % (Auto) 0.4, Absolute Neuts (auto) 10.5 H, Absolute Lymphs (auto) 1.26, Nucleated RBC % 0 10/09/21 05:45: Sodium 141, Potassium 3.3 L, Chloride 112 H, Carbon Dioxide 2 4.0, Anion Gap 5, BUN 20 H, Creatinine 0.50 L, Estim Creat Clear Calc 188.07, Est GFR (MDRD) Af Amer 218, Est GFR (MDRD) Non-Af 180, BUN/Creatinine Ratio 40.2 H, Glucose 140 H, Calcium 7.4 L, Phosphorus 2.4 L, Magnesium 1.8, Triglycerides 144 10/09/21 06:20: POC Glucose 134 H Micro: Microbiology 10/07/21 07:50 Incision/Surgical Site Gram Stain - Final 10/07/21 07:50 Incision/Surgical Site Wound Culture - Final Escherichia coli 09/30/21 13:05 Mario Samuel Drainage Gram Stain - Final 09/30/21 13:05 Mario Samuel Drainage Body Fluid Culture - Final Escherichia coli 09/30/21 13:05 Maroi Samuel Drainage Anaerobic Culture - Final Bacteroides thetaiotaomicron Clostridium ramosum 09/29/21 05:45 Stool Ova and Parasites - Final 10/01/21 17:10 Nasal Secretion SARS-CoV-2 Antigen (Rapid) - Final 09/29/21 05:45 Stool Enteric Bacteriology - Final 09/28/21 15:40 Stool Stool Lactoferrin - Final 09/28/21 15:40 Stool C. difficile DNA Amplification - Final 09/21/21 01:18 Nasal Secretion SARS-CoV-2 Antigen (Rapid) - Final Physical Exam Const no apparent distress Resp normal respiratory effort GI GI Narrative: moderately distended, midline wound draining foul-smelling mcginnis- brown fluid. soft, nontender to palpation. Unremarkable LLQ drain site. RLQ drain site with milky output. Assessment & Plan Assessment/Plan (1) S/P laparoscopic appendectomy: PLAN: Patient required return to the OR on 09/24/2021 after pathology reported they did not identify appendix in the patient's surgical specimen from 09/21/2021. Therefore, patient is postoperative day 15 from hand-assisted laparoscopic appendectomy with drain placement. Unfortunately, patient devel oped evidence of a controlled perforation from the terminal ileum?per drain study 10/01/2021. He was thus n.p.o. and initiated TPN. He was then taken for open ileocecectomy on 10/02/2021 (2) Appendicitis with perforation: PLAN: Status post above operative course (3) Perforation of small intestine: PLAN: Patient postoperative day 8 from open ileocecectomy. Patient appears to be continuing resolution of postoperative ileus with more consistent flatus. NG tube was removed yesterday after successful completion of clamp trial and consistent flatus. Nursing has been challenged with trying to restrict patient's intake and Mr. Martin admits that he overdid it. Continue TPN. Patient's leukocytosis worsened today with increased brown character to wound drainage and more milky output from surgical drain. We will continue Zosyn given intraoperative contamination and the presence of some cloudy drainage from his wound. Wound was cultured now showing lactose-fermenting GNRs. Neuro: As needed Dilaudid?but decreased to 0.25 mg every 3 hours as needed postoperative pain Pulm/CV: Supplemental O2 as needed; wean as able, DuoNebs every 6 hours while awake, diuresing to see if this will decrease the oxygen requirement, telemetry FEN/GI: Replace potassium and Mag today. Obtain CT given change in wound teddy inage. Return to N.p.o. with TPN?renew TPN today. Reglan as 2nd line antiemetic. : Patient to use bedside commode/urinal. continue application of nystatin powder to groin yeast infection Heme/ID: Hemoglobin stabilized. Continue Zosyn given contamination noted during the case on 10/02/2021 and new wound drainage. Follow-up wound cultures from 10/07/2021. F/u CT of abdomen/pelvis with PO and IV contrast. Endo: Mild hyperglycemia related to TPN Proph: SCDs, subcu heparin every 8 hours, patient encouraged to ambulate and be up and out of bed in a chair as much as possible Dispo: Continue inpatient care Charges/Coding Visit Charges Inpatient E&M: 26225 Subs Hosp L2
[2021-10-09] MEDS: hydrALAZINE 20 MG/ML Vial 10 MG IV (08:02)
[2021-10-09 09:32] LABS: Albumin, Serum 1.4 g/dL (3.2-5.0); Prealbumin 7.9 mg/dL (20.0-40.0)
[2021-10-09] MEDS: Contrast Allergy Safety Check IV (09:50)
[2021-10-09] MEDS: Potassium Chloride 10mEq/100mL 10 MEQ/100 ML IV.SOLN. 100 MEQ IV BOLUS ×2 (10:41→12:09)
[2021-10-09] MEDS: Nystatin Powder 15gm Bottle 1 APPLIC TOPICAL ×2 (10:41→21:55)
[2021-10-09 13:05] LABS: Bedside Glucose 122 mg/dL (74-106)
[2021-10-09] MEDS: Lidocaine 1% (20 ml mdv) 20 ML Vial 30 ML INFILT (13:40)
--- NOTE | 2021-10-09 14:00 | WOUNDNOTE ---
In with Dr Taveras to reassess the abdominal incision. there was still a moderate amount of joshua/edward malodorous drainage. Dr Taveras numbed up the abdomen with lidocaine and gently opened up a portion of the incision. there was necrotic tissues noted with some dehiscence of some of the tissues. malodor noted. still a moderate amount of joshua/edward drainage noted. wound was packed with NS moistened gauze and covered with dry dressings and ABD pad. plan is for patient to return to the OR this afternoon.
[2021-10-09] MEDS: Bupivacaine 0.25% 30 ML Vial (18:07)
[2021-10-09] MEDS: Lactated Ringers 1,000 ML 15 ML IV (18:40)
--- NOTE | 2021-10-09 19:06 | OP.PCM_ITS ---
Report of Operation Date of Procedure: 10/09/21 Pre-Operative Diagnosis: 1. Deep space wound infection with purulent drainage from postsurgical wound 2. Necrotic fascia 3. Severe protein calorie malnutrition 4. Status post exploratory laparotomy with ileocecectomy and primary anastomosis 5. Perforated appendicitis Post-Operative Diagnosis: 1. Partial wound dehiscence 2. Deep space wound infection with purulent drainage from postsurgical wound 3. Necrotic fascia 4. Severe protein calorie malnutrition 5. Status post exploratory laparotomy with ileocecectomy and primary anastomosis 6. Perforated appendicitis Surgery/Procedure Performed:: 1. Wound exploration under local MAC 2. Re exploratory laparotomy under general endotracheal anesthesia 3. Abdominal washout and drain placement in the right upper quadrant 4. Fascial and devitalized subcutaneous tissue debridement 5. Abdominal wall closure with retention sutures and interrupted Prolene Description of Surgical Findings:: ?Minimal turbid fluid above the level of the fascia ?Fascial dehiscence with exposed small bowel and necrotic fascia ?No evidence of perforated viscus ?Pocket of purulent fluid in the right upper quadrant consistent with previously identified abscess on CT imaging ?Prior ileocolonic anastomosis firmly adherent to the retroperitoneum but grossly without evidence of leak Surgeon: Nathan Taveras semiconductor testing group leader: Ros Deluca semiconductor testing group leader: Debbie Goode Type of Anesthesia: General/Supplemental Anesthesiologist: Triston Dominguez Specimen's removed: Wound tissue culture: Abdominal wall fascia Drains: Pre-existing 15 Moldovan round Larry, new 15 Moldovan round Larry (drain 2) Estimated Blood Loss (mL): 100 Description of Procedure: After proper identification in the preoperative holding area patient was brought to the operating room where he was positioned supine on the operating room table. Scheduled antibiotics were administered preoperatively. Patient was given sedation via local MAC and his wound packing was removed. The abdomen was then prepped and draped in the usual sterile fashion. A formal timeout was conducted amongst those present to confirm patient and procedure. Unfortunately, it became almost immediately evident that there was partial dehiscence of the wound and visible small bowel so anesthesia was asked to induce the patient fully with a general endotracheal anesthetic. The patient's remaining suture material was removed from his wound and we began careful exploration of the wound. There was initially some turbid fluid in the inferior portion of the wound, but once this was suctioned free there was no further ongoing drainage into the wound. Using a finger fracture technique, adhesions between the small bowel and the anterior abdominal wall were disrupted. With this technique we are able to free up the small bowel all the way to the right retroperitoneum. In doing so we encountered a pocket of purulent fluid near the hepatic flexure. This was copiously irrigated and the surrounding bowel was inspected but there appeared to be no ongoing contamination in this location?consistent with the loculated fluid collection seen on the patient's preoperative CT scan. In an effort to improve drainage of this portion of the patient's abdomen we introduced a second 15 Moldovan round KELLY drain through a stab incision in the right upper quadrant. This was secured at the skin using a 3-0 nylon stitch. We also identified patient's prior ileocolonic anastomosis just inferior to this and it was firmly stuck to the retroperitoneum but there, grossly, was no evidence of leak or pathology. At this point we requested placement of a nasogastric tube by anesthesiology and attempted to confirm placement from within the abdomen. In doing so we disrupted another fluid collection but this appeared to be more simple peritoneal fluid. Lastly we inspected the bowel directly beneath the patient's prior fascial closure and milked it proximally and distally but did not find evidence of any leakage. Therefore we turned our attention to debridement of the patient's abdominal wall. Grossly necrotic fascia and subcutaneous tissue were sharply removed. A sample of this was sent for a wound tissue culture specimen. This debridement was carried back to bleeding, viable tissue and hemostasis was obtained with selective electrocautery. Given the attenuated and poor condition of the patient's fascia we elected to place for retention sutures with #2 Ethibond suture. These were placed with approximately 4 cm intervals. We then closed the fascia with interrupted #2 Prolene in a [id number] fashion. With the sutures then tied and the abdominal wall reapproximated, the skin and subcutaneous tissue was left open. At this point we did elect to excise the patient's umbilicus given that it had a ischemic appearance. 4 x 4 gauzes were soaked with Betadine and were passed beneath the patient's retention sutures to fill the void of the subcutaneous layer. Abdominal dressings and dressing sponges were placed. Given the patient's preoperative issues with urinary incontinence and ongoing yeast infection, I asked nursing to place a Wills catheter while under anesthesia. There was immediate return of greater than 500 mL barbra-colored urine. Patient was then awoken from anesthetic and transferred to a PACU bed. As he was, he was placed in a abdominal binder. He was then taken to PACU for his ongoing recovery. Complications None Admit VTE Documentation VTE Present on Admission: Yes VTE Mechan Device Prophylaxis: SCD's VTE Pharm Prophylaxis ordered?: Yes
--- NOTE | 2021-10-09 20:24 | RAD_ITS ---
INDICATION: NG TUBE PLACEMENT -- PACU EXAMINATION/TECHNIQUE: X-RAY - supine XR Abdomen 1 View COMPARISON: Subsequent abdominal x-rays showing advancement of the enteric tube. FINDINGS: Enteric tube seen above the stomach bubble Level of the gastroesophageal junction. Proximal side port is roughly 10 cm above the gastroesophageal junction. BOWEL GAS PATTERN: Minimally prominent air-filled small bowel loops. Consider upright imaging to assess for air-fluid levels if clinically concerned. FREE AIR: Not assessed on a single supine view. ORGANOMEGALY: Not seen. CALCIFICATIONS: No abnormal calcifications observed. LOWER CHEST: No acute pathology. BONES AND SOFT TISSUES: No acute pathology. Multilevel transpedicular screws and bridging rods lumbar spine with additional skin alena. Soft tissue drain right abdomen. RAD/Abdomen Single View (Portable) IMPRESSION: Recommended advancing enteric tube 20 cm to have the proximal side port within the stomach. Electronically Signed: Nathan Blood DO at 22:00 EST ,
--- NOTE | 2021-10-09 20:35 | RAD_ITS ---
INDICATION: NG TUBE PLACEMENT -- PACU EXAMINATION/TECHNIQUE: X-RAY - supine XR Abdomen 1 View COMPARISON: None FINDINGS: Interval advancement of the enteric tube with proximal side port projecting over the stomach bubble. Tube tip in the stomach fundus projecting cephalad. BOWEL GAS PATTERN: Minimally prominent air-filled small bowel loops left abdomen, unchanged compared to prior exam suggesting possible ileus. FREE AIR: Not assessed on a single supine view. ORGANOMEGALY: Not seen. CALCIFICATIONS: No abnormal calcifications observed. LOWER CHEST: No acute pathology. BONES AND SOFT TISSUES: No acute pathology. Soft tissue drain right abdomen. RAD/Abdomen Single View (Portable) IMPRESSION: Well-positioned enteric tube. Electronically Signed: Nathan Blood DO at 22:01 EST ,
--- NOTE | 2021-10-09 20:39 | SUR.PHASEI ---
NG TUBE PLACEMENT SUCCESSFUL. KUB ORDERED. PATIENT TOLERATED WELL. GASTRIC CONTENTS OBSERVED IN TUBE.
[2021-10-09] MEDS: Fat Emulsions 20% 250 ML IV (21:49)
[2021-10-09] MEDS: 0.9% Normal Saline 1,000 ML 75 ML IV (22:16)
[2021-10-09] MEDS: Ketorolac 30 MG/ML Syringe IV (23:21)
[2021-10-09 23:46] LABS: Bedside Glucose 197 mg/dL (74-106)
[2021-10-10] VITALS (13 sets, daily range): BP systolic 97–113; BP diastolic 57–75; PULSE 60–101; RESP 16–18; TEMP 35.8–36.8; O2SAT 85–96
[2021-10-10] MEDS: HYDROmorphone 1 MG/ML Syringe IV ×5 (00:56→21:52)
[2021-10-10] MEDS: 0.9% Normal Saline 1,000 ML 75 ML IV (04:25)
[2021-10-10 06:11] LABS: Bedside Glucose 175 mg/dL (74-106)
[2021-10-10] MEDS: Ketorolac 30 MG/ML Syringe IV ×3 (06:19→16:59)
[2021-10-10] MEDS: Ipratropium/Albuterol Sulfate 3 ML AMPUL.NEB INHALATION ×3 (07:04→19:27)
[2021-10-10] MEDS: TPN - Clinimix E 8%-14% Soln 2,000 ML with Multivitamins 10 ML, Trace Elements 1 ML, Fo... 63 ML IV (07:43)
--- NOTE | 2021-10-10 07:53 | WOUNDNOTE ---
Dr Taveras and JOHN Donovan had been in to assess abdomen this am. this nurse is to change packing later today.
--- NOTE | 2021-10-10 08:03 | PCM.PN.SRG ---
Subjective Subjective Patient seen and examined during AM rounds. He reports feeling somewhat better today with better pain control. He states that he feels gas moving throughout his abdomen but there has not been any flatus. Objective Data Objective Data Vital Signs: Vital Signs Temp Pulse Resp BP Pulse Ox 98.2 F 101 H 16 112/75 94 10/10/21 06:13 10/10/21 07:11 10/10/21 07:11 10/10/21 06:13 10/10/21 06:13 Oxygen Flow Rate (L/min) [At 2 REST with Oxygen] Oxygen Flow Rate (L/min) 4 Oxygen Delivery Method Nasal Cannula Weight: 236 lb 1.841 oz Body Mass Index (BMI) 29.0 Intake & Output: Intake and Output for Last 24 Hours 10/08/21 10/09/21 10/10/21 23:59 23:59 23:59 Intake Total 5042.40 / 5042.40 3337.50 / 3337.50 541.25 / 541.25 Output Total 2910 / 2910 2722 / 2722 485 / 485 Balance 2132.40 / 2132.40 615.50 / 615.50 56.25 / 56.25 Lab / Micro Data Result Diagrams: 10/09/21 05:45 10/09/21 05:45 Labs: Laboratory Results - last 24 hr 10/09/21 05:45: Albumin 1.4 L, Prealbumin 7.9 L 10/09/21 12:59: POC Glucose 122 H 10/09/21 23:39: POC Glucose 197 H 10/10/21 06:00: POC Glucose 175 H Micro: Microbiology 10/07/21 07:50 Incision/Surgical Site Gram Stain - Final 10/07/21 07:50 Incision/Surgical Site Wound Culture - Final Escherichia coli 10/07/21 07:50 Incision/Surgical Site Anaerobic Culture - Preliminary Checking for anaerobes, further studies to follow. 09/30/21 13:05 Mario Samuel Drainage Gram Stain - Final 09/30/21 13:05 Mario Samuel Drainage Body Fluid Culture - Final Escherichia coli 09/30/21 13:05 Mario Samuel Drainage Anaerobic Culture - Final Bacteroides thetaiotaomicron Clostridium ramosum 09/29/21 05:45 Stool Ova and Parasites - Final 10/01/21 17:10 Nasal Secretion SARS-CoV-2 Antigen (Rapid) - Final 09/29/21 05:45 Stool Enteric Bacteriology - Final 09/28/21 15:40 Stool Stool Lactoferrin - Final 09/28/21 15:40 Stool C. difficile DNA Amplification - Final 09/21/21 01:18 Nasal Secretion SARS-CoV-2 Antigen (Rapid) - Final Radiography Diagnostic Testing: Radiology Impression Abdomen/Pelvis CT 10/09/21 07:47 IMPRESSION: 1. Suspicious 6.2 x 5 x 5.6 cm abscess in the right anterior pararenal space. This is feasible for percutaneous diagnostic aspiration and abscess drain catheter placement. 2. Midline anterior abdominal wall/subcutaneous fat air emphysema does not appear to communicate with the peritoneal cavity but is a new finding since 10/01/2021. 3. Post operative and post inflammatory changes of the mesenteric fat around the appendectomy site. 4. Mild increased dilatation of the contrast filled stomach and proximal small bowel loops without definite zone of transition to suggest obstruction. 5. 1.8 x 1.3 cm solid nodule in the medial limb of the right adrenal gland is unchanged. ACR White Paper guidelines (Bucio-Mayfield, et al. JACR 2017; 14(8):3959-6390) suggest no follow-up is necessary. Electronically Signed: Beka Butler MD at 12:14 EST , ADDENDUM: 10/09/21 1234 IMPRESSION: 1. Suspicious 6.2 x 5 x 5.6 cm abscess in the right anterior pararenal space. This is feasible for percutaneous diagnostic aspiration and abscess drain catheter placement. 2. Midline anterior abdominal wall/subcutaneous fat air emphysema does not appear to communicate with the peritoneal cavity but is a new finding since 10/01/2021. 3. Post operative and post inflammatory changes of the mesenteric fat around the appendectomy site. 4. Mild increased dilatation of the contrast filled stomach and proximal small bowel loops without definite zone of transition to suggest obstruction. 5. 1.8 x 1.3 cm solid nodule in the medial limb of the right adrenal gland is unchanged. ACR White Paper guidelines (Bucio-Mayfield, et al. JACR 2017; 14(8):2513-8641) suggest no follow-up is necessary. N.B. : The above Results were Read Back by Beka Butler MD to Mitzi Obregon RN, and understanding confirmed on 10/09/2021 12:27:57 (ET). Electronically Signed: Beka Butler MD at 12:14 EST , KUB X-Ray 10/09/21 20:24 IMPRESSION: Recommended advancing enteric tube 20 cm to have the proximal side port within the stomach. Electronically Signed: Nathan Blood DO at 22:00 EST , KUB X-Ray 10/09/21 20:35 IMPRESSION: Well-positioned enteric tube. Electronically Signed: Nathan Blood DO at 22:01 EST , Physical Exam Const Constitutional Narrative: mild distress/droziness Resp normal respiratory effort GI GI Narrative: significantly less distended. scant ss drainage to overlying surgical dressing in midline. R-sided abdominal drains with SS output and some edward debris. Bladder / Kidney Exam: catheter in place Assessment & Plan Assessment/Plan (1) S/P laparoscopic appendectomy: PLAN: Patient required return to the OR on 09/24/2021 after pathology reported they did not identify appendix in the patient's surgical specimen from 09/21/2021. Therefore, patient is postoperative day 16 from hand-assisted laparoscopic appendectomy with drain placement. Unfortunately, patient developed evidence of a controlled perforation from the terminal ileum?per drain study 10/01/2021. He was thus n.p.o. and initiated TPN. He was then taken for open ileocecectomy on 10/02/2021 (2) Appendicitis with perforation: PLAN: Status post above operative course (3) Perforation of small intestine: PLAN: Patient postoperative day 9 from open ileocecectomy. Patient was held NPO after character of wound drainage became more malodorous and cloudy. Bedside wound exploration performed but not well tolerated. Did find evidence of necrotic fascia and patient was posted for operative exploration. Underwent re-exploratory laparotomy on 10/09/2021 with abdominal washout, drain placement, fascial debridement, and abdominal wall closure with placement of retention sutures. Neuro: As needed Dilaudid?increased to 1 mg every 3 hours as needed postoperative pain, Re-added Toradol 30mg Q6H ROXANA Pulm/CV: Supplemental O2 as needed; wean as able, DuoNebs every 6 hours while awake, telemetry FEN/GI: Replace lytes per labs today. Keep N.p.o. with TPN?renew TPN today (patient with severe protein calorie malnutrition as evinced by his recent albumin/prealbumin labs (10/09). Reglan as 2nd line antiemetic. : Wills catheter in place given patient's expected postop mobility restrictions. continue application of nystatin powder to groin yeast infection Heme/ID: F/u CBC, continue Zosyn given abscess and wound infection noted 10/09 Endo: Mild hyperglycemia related to TPN Proph: SCDs, subcu heparin every 8 hours HELD until CBC proved stable, patient encouraged to ambulate and be up and out of bed in a chair as much as possible Dispo: Continue inpatient care (4) Intra-abdominal abscess: PLAN: s/p ab washout with additional drain placement 10/09/21 (5) Postoperative wound infection: PLAN: s/p fascial debridement and ab wall closure 10/09/21 (skin left open) Charges/Coding Visit Charges Inpatient E&M: 21476 Subs Hosp L2
[2021-10-10 08:40] LABS: Absolute Lymphocyte Count 0.95 X10^3/uL (0.83-4.51); Absolute Neutrophil Count 16.5 X10^3/uL (2.0-7.7); Basophil# 0.02 X10^3/uL; Basophil% 0.1 % (0-1); Hematocrit 30.7 % (40-54); Hemoglobin 10.7 g/dL (13.0-16.5); Lymphocyte # 0.95 X10^3/ul (0.83-4.51); Lymphocyte % 5.1 % (19-41); Mean Corp Hgb Conc 34.9 g/dL (32-36); Mean Corpuscular Hgb 33.3 pg (27.0-32.0); Mean Corpuscular Volume 95.6 fL (80-94); Mean Platelet Vol. 9.8 fl (6.2-12.0); Monocyte# 1.06 X10^3/uL; Monocyte% 5.7 % (0-10); NRBC Flagged by Analyzer 0 % (0-5); Neutrophil # 16.52 X10^3/uL (2.7-7.7); Neutrophil % 88.4 % (47-70); POSITIVE MORPHOLOGY YES; Platelet Count 355 K/mm3 (150-450); RBC Distribution Width CV 15.4 % (11.6-14.6); RBC Distribution Width SD 54.4 fl (35.1-43.9); Red Blood Count 3.21 M/mm3 (4.6-6.2); White Blood Count 18.7 K/mm3 (4.4-11.0)
[2021-10-10 08:50] LABS: Differential Indicated SCAN CRITERIA MET
[2021-10-10 09:16] LABS: Anion Gap 4 (5-15); BUN 30 mg/dL (7-18); BUN/Creat Ratio 28.6 RATIO (10-20); Calcium,Total 7.8 mg/dL (8.5-10.1); Chloride 116 mmol/L (98-107); Creatinine, Serum 1.05 mg/dL (0.70-1.30); EST Glomerular Filtration Rate 76 mL/min (>60); Est Glom Filt Rate - Afr Amer 92 mL/min (>60); Estimated Creatinine Clearance 89.56 ml/min; Glucose 177 mg/dL (74-106); Potassium 3.8 mmol/L (3.5-5.1); Sodium Level 143 mmol/L (136-145)
[2021-10-10] MEDS: 0.9% Saline Lock 10 ML Syringe IV ×4 (09:16→21:52)
[2021-10-10] MEDS: Nystatin Powder 15gm Bottle 1 APPLIC TOPICAL ×2 (09:26→21:54)
[2021-10-10] MEDS: Potassium Chloride 10mEq/100mL 10 MEQ/100 ML IV.SOLN. 100 MEQ IV BOLUS ×2 (12:36→13:58)
[2021-10-10 13:01] LABS: Bedside Glucose 159 mg/dL (74-106)
--- NOTE | 2021-10-10 13:21 | WOUNDNOTE ---
wound photo: abdomen
--- NOTE | 2021-10-10 15:45 | CASEMGMT ---
RN CM in to check in with pt. Pt lying in bed with eyes closed. Did not awaken pt at this time. Noted therapy has been re-ordered for pt.
[2021-10-10] MEDS: TPN - Clinimix E 8%-14% Soln 2,000 ML with Multivitamins 10 ML, Trace Elements 1 ML, Fo... 84 ML IV (16:28)
[2021-10-10 18:26] LABS: Bedside Glucose 177 mg/dL (74-106)
[2021-10-10 22:10] LABS: Bedside Glucose 150 mg/dL (74-106)
[2021-10-11] VITALS (9 sets, daily range): BP systolic 111–138; BP diastolic 68–79; PULSE 64–111; RESP 16–22; TEMP 36.3–36.9; O2SAT 96–100
[2021-10-11] MEDS: 0.9% Saline Lock 10 ML Syringe IV ×4 (01:09→21:43)
[2021-10-11] MEDS: Ketorolac 30 MG/ML Syringe IV ×5 (01:09→23:58)
[2021-10-11 04:01] LABS: Bedside Glucose 156 mg/dL (74-106)
[2021-10-11 06:23] LABS: Absolute Lymphocyte Count 1.13 X10^3/uL (0.83-4.51); Absolute Neutrophil Count 12.5 X10^3/uL (2.0-7.7); Basophil# 0.02 X10^3/uL; Basophil% 0.1 % (0-1); Eosinophil# 0.05 X10^3/uL; Eosinophils% 0.3 % (0-5); Hematocrit 28.6 % (40-54); Hemoglobin 9.3 g/dL (13.0-16.5); Lymphocyte # 1.13 X10^3/ul (0.83-4.51); Lymphocyte % 7.6 % (19-41); Mean Corp Hgb Conc 32.5 g/dL (32-36); Mean Corpuscular Hgb 30.8 pg (27.0-32.0); Mean Corpuscular Volume 94.7 fL (80-94); Mean Platelet Vol. 10.3 fl (6.2-12.0); Monocyte# 1.04 X10^3/uL; NRBC Flagged by Analyzer 0 % (0-5); Neutrophil # 12.54 X10^3/uL (2.7-7.7); Neutrophil % 84.2 % (47-70); Platelet Count 337 K/mm3 (150-450); RBC Distribution Width CV 15.9 % (11.6-14.6); RBC Distribution Width SD 55.3 fl (35.1-43.9); Red Blood Count 3.02 M/mm3 (4.6-6.2); White Blood Count 14.9 K/mm3 (4.4-11.0)
[2021-10-11 06:55] LABS: Anion Gap 3 (5-15); BUN 40 mg/dL (7-18); BUN/Creat Ratio 49.3 RATIO (10-20); Chloride 118 mmol/L (98-107); Creatinine, Serum 0.81 mg/dL (0.70-1.30); EST Glomerular Filtration Rate 102 mL/min (>60); Est Glom Filt Rate - Afr Amer 124 mL/min (>60); Estimated Creatinine Clearance 116.09 ml/min; Glucose 151 mg/dL (74-106); Magnesium 2.4 mg/dL (1.6-2.6); Sodium Level 144 mmol/L (136-145)
[2021-10-11 06:59] LABS: Phosphorus 2.5 mg/dL (2.5-4.9)
[2021-10-11] MEDS: Ipratropium/Albuterol Sulfate 3 ML AMPUL.NEB INHALATION ×3 (06:59→19:04)
--- NOTE | 2021-10-11 07:51 | PN.SURG_ITS ---
Subjective Subjective Patient seen and examined during AM rounds. He is found resting in bed on my arrival but only lightly dozing. He states that his pain overall is much improved and he just has some residual discomfort in the right upper quadrant at the moment. He denies any passage of gas. He denies any nausea. Objective Data Objective Data Vital Signs: Vital Signs Temp Pulse Resp BP Pulse Ox 97.4 F L 88 18 129/70 H 96 10/11/21 03:39 10/11/21 03:39 10/11/21 03:39 10/11/21 03:39 10/11/21 03:39 Oxygen Flow Rate (L/min) [At 2 REST with Oxygen] Oxygen Flow Rate (L/min) 4 Oxygen Delivery Method Nasal Cannula Weight: 232 lb 2.348 oz Body Mass Index (BMI) 29.0 Intake & Output: Intake and Output for Last 24 Hours 10/09/21 10/10/21 10/11/21 23:59 23:59 23:59 Intake Total 4849.50 / 4849.50 2791.25 / 2791.25 101.67 / 101.67 Output Total 2722 / 2722 1769 / 1769 650 / 650 Balance 2127.50 / 2127.50 1022.25 / 1022.25 -548.33 / -548.33 Medical Nutrition Assessment Dietitian: Malnutrition Criteria Met Start: 10/10/21 10:28 Freq: Status: Active Protocol: Document 10/10/21 10:29 (Rec: 10/10/21 10:29 [id number]) Nutrition Malnutrition Evidence of Malnutrition Exists Yes Malnutrition (severe): Acute Illness/Injury Evidenced By Suboptimal Energy Intake ( Severe),Weight Loss (Severe) Intake Problem Inadequate Oral Intake Etiology related to altered GI function s/p surgery Signs/Symptoms as evidenced by NPO, estimated energy intake meeting <50% of estimated nutritional needs > 5 days Status Active Problem Clinical Problem Acute Disease or Injury Related Malnutrition Etiology severe, acute malnutrition r/t inadequate energy intake w/ increased energy needs d/t multiple abd surgeries, wound, infection Signs/Symptoms as evidenced by unintentional wt loss of 13.9#/6% wt loss <1 month, estimated energy intake from PO diet/TPN meeting <75% of estimated energy needs >1 week Status Active Problem Recommendation Dietitian Recommendations/Changes 1) For Day #11 TPN: will increase to 2L 8%AA/14% dextrose solution w/ MVI/ electrolytes/trace minerals to provide 1593 calories, 160 g protein/day. No insulin or famotidine per provider order. 2) Recommend advance diet as tolerated to transitional; ensure clear w/ medpass as PO diet advanced. Wean TPN as PO intake improves. 3) Daily wts. Monitoring of labs. Lab / Micro Data Result Diagrams: 10/11/21 05:50 10/11/21 05:50 Labs: Laboratory Results - last 24 hr 10/10/21 08:30: WBC 18.7 H, RBC 3.21 L, Hgb 10.7 L, Hct 30.7 L, MCV 95.6 H, MCH 33.3 H, MCHC 34.9, RDW Std Deviation 54.4 H, RDW Coeff of Ar 15.4 H, Plt Count 355, MPV 9.8, Immature Gran % (Auto) 0.700, Neut % (Auto) 88.4 H, Lymph % (Auto) 5.1 L, [place] % (Auto) 5.7, Eos % (Auto) 0.0, Baso % (Auto) 0.1, Absolute Neuts (auto) 16.5 H, Absolute Lymphs (auto) 0.95, Nucleated RBC % 0 10/10/21 08:30: Sodium 143, Potassium 3.8, Chloride 116 H, Carbon Dioxide 23.0, Anion Gap 4 L, BUN 30 H, Creatinine 1.05, Estim Creat Clear Calc 89.56, Est GFR (MDRD) Af Amer 92, Est GFR (MDRD) Non-Af 76, BUN/Creatinine Ratio 28.6 H, Glucose 177 H, Calcium 7.8 L 10/10/21 12:53: POC Glucose 159 H 10/10/21 18:19: POC Glucose 177 H 10/10/21 22:08: POC Glucose 150 H 10/11/21 03:30: POC Glucose 156 H 10/11/21 05:50: WBC 14.9 H, RBC 3.02 L, Hgb 9.3 L, Hct 28.6 L, MCV 94.7 H, MCH 30.8, MCHC 32.5 D, RDW Std Deviation 55.3 H, RDW Coeff of Ar 15.9 H, Plt Count 337, MPV 10.3, Immature Gran % (Auto) 0.800, Neut % (Auto) 84.2 H, Lymph % (Auto) 7.6 L, [place] % (Auto) 7.0, Eos % (Auto) 0.3, Baso % (Auto) 0.1, Absolute Neuts (auto) 12.5 H, Absolute Lymphs (auto) 1.13, Nucleated RBC % 0 10/11/21 05:50: Sodium 144, Potassium 4.0, Chloride 118 H, Carbon Dioxide 23.0, Anion Gap 3 L, BUN 40 H, Creatinine 0.81, Estim Creat Clear Calc 116.09, Est GFR (MDRD) Af Amer 124, Est GFR (MDRD) Non-Af 102, BUN/Creatinine Ratio 49.3 H, Glucose 151 H, Calcium 8.0 L, Magnesium 2.4 10/11/21 05:50: Phosphorus 2.5 Micro: Microbiology 10/09/21 Unknown Tissue - Abdominal Gram Stain - Final 10/09/21 Unknown Tissue - Abdominal Wound Culture - Preliminary GNR lactose account developer 10/07/21 07:50 Incision/Surgical Site Gram Stain - Final 10/07/21 07:50 Incision/Surgical Site Wound Culture - Final Escherichia coli 10/07/21 07:50 Incision/Surgical Site Anaerobic Culture - Preliminary Checking for anaerobes, further studies to follow. 09/30/21 13:05 Mario Samuel Drainage Gram Stain - Final 09/30/21 13:05 Mario Samuel Drainage Body Fluid Culture - Final Escherichia coli 09/30/21 13:05 Mario Samuel Drainage Anaerobic Culture - Final Bacteroides thetaiotaomicron Clostridium ramosum 09/29/21 05:45 Stool Ova and Parasites - Final 10/01/21 17:10 Nasal Secretion SARS-CoV-2 Antigen (Rapid) - Final 09/29/21 05:45 Stool Enteric Bacteriology - Final 09/28/21 15:40 Stool Stool Lactoferrin - Final 09/28/21 15:40 Stool C. difficile DNA Amplification - Final 09/21/21 01:18 Nasal Secretion SARS-CoV-2 Antigen (Rapid) - Final Physical Exam Const oriented x3 Constitutional Narrative: Mild distress from abdominal discomfort and fatigue Cardio regular rate GI GI Narrative: Mildly distended slightly firm, appropriately tender to palpation about midline and right upper quadrant drain site. KELLY tube draining thin serous fluid, KELLY 1 draining slightly thicker cloudy fluid with lesser volume. Midline bandage without drainage. Bladder / Kidney Exam: catheter in place Assessment & Plan Assessment/Plan (1) S/P laparoscopic appendectomy: PLAN: Patient required return to the OR on 09/24/2021 after pathology reported they did not identify appendix in the patient's surgical specimen from 09/21/2021. Therefore, patient is postoperative day 17 from hand-assisted laparoscopic appendectomy with drain placement. Unfortunately, patient developed evidence of a controlled perforation from the terminal ileum?per drain study 10/01/2021. He was thus n.p.o. and initiated TPN. He was then taken for open ileocecectomy on 10/02/2021 (2) Appendicitis with perforation: PLAN: Status post above operative course (3) Perforation of small intestine: PLAN: Patient postoperative day 10 from open ileocecectomy. Patient was held NPO after character of wound drainage became more malodorous and cloudy. B edside wound exploration performed but not well tolerated. Did find evidence of necrotic fascia and patient was posted for operative exploration. Underwent re- exploratory laparotomy on 10/09/2021 with abdominal washout, drain placement, fascial debridement, and abdominal wall closure with placement of retention sutures. Neuro: As needed Dilaudid?increased to 1 mg every 3 hours as needed postoper ative pain, Re-added Toradol 30mg Q6H ROXANA Pulm/CV: Supplemental O2 as needed; wean as able, DuoNebs every 6 hours while awake, telemetry FEN/GI: Replace lytes per labs today. Keep N.p.o. with TPN?renew TPN today (patient with severe protein calorie malnutrition as evinced by his recent albumin/prealbumin labs (10/09). Reglan as 2nd line antiemetic. : Remove Wills catheter today in follow-up for spontaneous void. Continue application of nystatin powder to groin yeast infection Heme/ID: White count downtrending, continue Zosyn given abscess and wound infection noted 10/09, follow-up tissue cultures from the OR Endo: Mild hyperglycemia related to TPN Proph: SCDs, subcu heparin every 8 hours HELD until CBC proved stable, patient encouraged to ambulate and be up and out of bed in a chair as much as possible Dispo: Continue inpatient care (4) Intra-abdominal abscess: PLAN: s/p ab washout with additional drain placement 10/09/21 (5) Postoperative wound infection: PLAN: s/p fascial debridement and ab wall closure 10/09/21 (skin left open) Charges/Coding Visit Charges Inpatient E&M: 43246 Subs Hosp L2
[2021-10-11] MEDS: HYDROmorphone 1 MG/ML Syringe IV ×3 (09:47→20:18)
[2021-10-11] MEDS: 0.9% Normal Saline 1,000 ML 50 ML IV (11:39)
[2021-10-11] MEDS: Nystatin Powder 15gm Bottle 1 APPLIC TOPICAL ×2 (11:40→21:20)
[2021-10-11 11:51] LABS: Bedside Glucose 138 mg/dL (74-106)
[2021-10-11] MEDS: Fat Emulsions 20% 250 ML IV (16:11)
[2021-10-11] MEDS: TPN - Clinimix E 8%-14% Soln 2,000 ML with Multivitamins 10 ML, Trace Elements 1 ML, Fo... 84 ML IV (16:11)
[2021-10-11] MEDS: DAKIN'S SOL HALF STRENGTH (=0.25%) 1 APPLIC TOPICAL ×2 (16:12→21:20)
[2021-10-11 18:06] LABS: Bedside Glucose 142 mg/dL (74-106)
--- NOTE | 2021-10-11 18:29 | PCM.RX.CS ---
Consult Pharmacy has been consulted to manage selected antiobiotic: Vancomycin Type of Consult: New start Suspected Infection: Skin/Soft tissue Labs: Sodium 144 mmol/L (136-145) 10/11/21 05:50 Potassium 4.0 mmol/L (3.5-5.1) 10/11/21 05:50 Chloride 118 mmol/L (98-107) H 10/11/21 05:50 Carbon Dioxide 23.0 mmol/L (21.0-32.0) 10/11/21 05:50 Anion Gap 3 (5-15) L 10/11/21 05:50 BUN 40 mg/dL (7-18) H 10/11/21 05:50 Creatinine 0.81 mg/dL (0.70-1.30) 10/11/21 05:50 Est GFR (MDRD) Af Amer 124 mL/min (>60) 10/11/21 05:50 Est GFR (MDRD) Non-Af 102 mL/min (>60) 10/11/21 05:50 BUN/Creatinine Ratio 49.3 RATIO (10-20) H 10/11/21 05:50 Glucose 151 mg/dL (74-106) H 10/11/21 05:50 Microbiology: Microbiology 10/07/21 07:50 Incision/Surgical Site Gram Stain - Final 10/07/21 07:50 Incision/Surgical Site Wound Culture - Final Escherichia coli 10/07/21 07:50 Incision/Surgical Site Anaerobic Culture - Final Bacteroides caccae Bacteroides thetaiotaomicron Clostridium group 10/09/21 Unknown Tissue - Abdominal Gram Stain - Final 10/09/21 Unknown Tissue - Abdominal Wound Culture - Final Escherichia coli 09/30/21 13:05 Mario Samuel Drainage Gram Stain - Final 09/30/21 13:05 Mario Samuel Drainage Body Fluid Culture - Final Escherichia coli 09/30/21 13:05 Mario Samuel Drainage Anaerobic Culture - Final Bacteroides thetaiotaomicron Clostridium ramosum 09/29/21 05:45 Stool Ova and Parasites - Final 10/01/21 17:10 Nasal Secretion SARS-CoV-2 Antigen (Rapid) - Final 09/29/21 05:45 Stool Enteric Bacteriology - Final 09/28/21 15:40 Stool Stool Lactoferrin - Final 09/28/21 15:40 Stool C. difficile DNA Amplification - Final 09/21/21 01:18 Nasal Secretion SARS-CoV-2 Antigen (Rapid) - Final Weight used for dosin.3 kg Estimated Creatinine Clearance: >100ML/MIN Goal Trough: 15-20 mcg/mL Pharmacy Plan for Drug Dosing: Give standard initial dose of 1500mg IV x1, then continue with 1250mg IV q8h per [facility] dosing protocol. Will check a trough level before the 4th total dose tomorrow. Pharmacy Service will continue to monitor and adjust dosing as required. Follow-Up Labs: Trough Vancomycin Labs to be done on [date and time ordered]: 10/12/21 17:30
[2021-10-11] MEDS: BENZOCAINE/MENTHOL 1 LOZENGE MUCOUS MEM (21:43)
[2021-10-12] VITALS (8 sets, daily range): BP systolic 140–158; BP diastolic 80–89; PULSE 64–92; RESP 18–22; TEMP 36.6–36.9; O2SAT 92–99
[2021-10-12 00:21] LABS: Bedside Glucose 140 mg/dL (74-106)
[2021-10-12] MEDS: Ipratropium/Albuterol Sulfate 3 ML AMPUL.NEB INHALATION ×4 (04:31→19:15)
[2021-10-12] MEDS: Ketorolac 30 MG/ML Syringe IV ×4 (05:46→23:38)
[2021-10-12 06:01] LABS: Bedside Glucose 149 mg/dL (74-106)
[2021-10-12 07:09] LABS: Absolute Neutrophil Count 8.8 X10^3/uL (2.0-7.7); Basophil# 0.03 X10^3/uL; Basophil% 0.3 % (0-1); Eosinophil# 0.13 X10^3/uL; Eosinophils% 1.2 % (0-5); Hematocrit 27.2 % (40-54); Hemoglobin 9.1 g/dL (13.0-16.5); Lymphocyte % 10.1 % (19-41); Mean Corp Hgb Conc 33.5 g/dL (32-36); Mean Corpuscular Hgb 32.2 pg (27.0-32.0); Mean Corpuscular Volume 96.1 fL (80-94); Mean Platelet Vol. 10.5 fl (6.2-12.0); Monocyte# 0.71 X10^3/uL; Monocyte% 6.5 % (0-10); NRBC Flagged by Analyzer 0 % (0-5); Neutrophil # 8.81 X10^3/uL (2.7-7.7); Neutrophil % 80.6 % (47-70); Platelet Count 400 K/mm3 (150-450); RBC Distribution Width CV 16.1 % (11.6-14.6); RBC Distribution Width SD 56.1 fl (35.1-43.9); Red Blood Count 2.83 M/mm3 (4.6-6.2); White Blood Count 10.9 K/mm3 (4.4-11.0)
[2021-10-12 07:35] LABS: Anion Gap 2 (5-15); BUN 33 mg/dL (7-18); BUN/Creat Ratio 51.6 RATIO (10-20); Calcium,Total 7.6 mg/dL (8.5-10.1); Chloride 122 mmol/L (98-107); Creatinine, Serum 0.64 mg/dL (0.70-1.30); EST Glomerular Filtration Rate 135 mL/min (>60); Est Glom Filt Rate - Afr Amer 163 mL/min (>60); Estimated Creatinine Clearance 146.93 ml/min; Glucose 137 mg/dL (74-106); Phosphorus 1.8 mg/dL (2.5-4.9); Potassium 3.5 mmol/L (3.5-5.1); Sodium Level 148 mmol/L (136-145)
--- NOTE | 2021-10-12 07:59 | PCM.PN.SRG ---
Subjective Subjective Patient states that he is passing flatus feels tired and weak Objective Data Objective Data Abdomen is soft. I did not take the dressings down it was not time for his dressing change as of yet. Vital Signs: Vital Signs Temp Pulse Resp BP Pulse Ox 97.8 F 84 22 H 146/80 H 92 10/12/21 02:15 10/12/21 07:35 10/12/21 07:35 10/12/21 02:15 10/12/21 07:35 Oxygen Flow Rate (L/min) [At 2 REST with Oxygen] Oxygen Flow Rate (L/min) 4 Oxygen Delivery Method Room Air Weight: 239 lb 10.279 oz Body Mass Index (BMI) 29.0 Intake & Output: Intake and Output for Last 24 Hours 10/10/21 10/11/21 10/12/21 23:59 23:59 23:59 Intake Total 2791.25 / 2791.25 3693.29 / 3693.29 775 / 775 Output Total 1769 / 1769 2014 700 / 700 Balance 1022.25 / 1022.25 1678.29 / 1678.29 75 / 75 Medical Nutrition Assessment Dietitian: Malnutrition Criteria Met Start: 10/10/21 10:28 Freq: Status: Active Protocol: Document 10/10/21 10:29 (Rec: 10/10/21 10:29 [id number]) Nutrition Malnutrition Evidence of Malnutrition Exists Yes Malnutrition (severe): Acute Illness/Injury Evidenced By Suboptimal Energy Intake ( Severe),Weight Loss (Severe) Intake Problem Inadequate Oral Intake Etiology related to altered GI function s/p surgery Signs/Symptoms as evidenced by NPO, estimated energy intake meeting <50% of estimated nutritional needs > 5 days Status Active Problem Clinical Problem Acute Disease or Injury Related Malnutrition Etiology severe, acute malnutrition r/t inadequate energy intake w/ increased energy needs d/t multiple abd surgeries, wound, infection Signs/Symptoms as evidenced by unintentional wt loss of 13.9#/6% wt loss <1 month, estimated energy intake from PO diet/TPN meeting <75% of estimated energy needs >1 week Status Active Problem Recommendation Dietitian Recommendations/Changes 1) For Day #11 TPN: will increase to 2L 8%AA/14% dextrose solution w/ MVI/ electrolytes/trace minerals to provide 1593 calories, 160 g protein/day. No insulin or famotidine per provider order. 2) Recommend advance diet as tolerated to transitional; ensure clear w/ medpass as PO diet advanced. Wean TPN as PO intake improves. 3) Daily wts. Monitoring of labs. Lab / Micro Data Result Diagrams: 10/12/21 06:23 10/12/21 06:23 Labs: Laboratory Results - last 24 hr 10/11/21 11:37: POC Glucose 138 H 10/11/21 17:58: POC Glucose 142 H 10/12/21 00:08: POC Glucose 140 H 10/12/21 05:55: POC Glucose 149 H 10/12/21 06:23: WBC 10.9, RBC 2.83 L, Hgb 9.1 L, Hct 27.2 L, MCV 96.1 H, MCH 32.2 H, MCHC 33.5, RDW Std Deviation 56.1 H, RDW Coeff of Ar 16.1 H, Plt Count 400, MPV 10.5, Immature Gran % (Auto) 1.300 H, Neut % (Auto) 80.6 H, Lymph % (Auto) 10.1 L, [place] % (Auto) 6.5, Eos % (Auto) 1.2, Baso % (Auto) 0.3, Absolute Neuts (auto) 8.8 H, Absolute Lymphs (auto) 1.10, Nucleated RBC % 0 10/12/21 06:23: Sodium 148 H, Potassium 3.5, Chloride 122 H, Carbon Dioxide 24.0, Anion Gap 2 L, BUN 33 H, Creatinine 0.64 L, Estim Creat Clear Calc 146.93, Est GFR (MDRD) Af Amer 163, Est GFR (MDRD) Non-Af 135, BUN/Creatinine Ratio 51.6 H, Glucose 137 H, Calcium 7.6 L, Phosphorus 1.8 L, Magnesium 2.0 Micro: Microbiology 10/09/21 Unknown Tissue - Abdominal Gram Stain - Final 10/09/21 Unknown Tissue - Abdominal Wound Culture - Final Escherichia coli 10/09/21 Unknown Tissue - Abdominal Anaerobic Culture - Preliminary Checking for anaerobes, further studies to follow. 10/07/21 07:50 Incision/Surgical Site Gram Stain - Final 10/07/21 07:50 Incision/Surgical Site Wound Culture - Final Escherichia coli 10/07/21 07:50 Incision/Surgical Site Anaerobic Culture - Final Bacteroides caccae Bacteroides thetaiotaomicron Clostridium group 09/30/21 13:05 Mario Samuel Drainage Gram Stain - Final 09/30/21 13:05 Mario Samuel Drainage Body Fluid Culture - Final Escherichia coli 09/30/21 13:05 Mario Samuel Drainage Anaerobic Culture - Final Bacteroides thetaiotaomicron Clostridium ramosum 09/29/21 05:45 Stool Ova and Parasites - Final 10/01/21 17:10 Nasal Secretion SARS-CoV-2 Antigen (Rapid) - Final 09/29/21 05:45 Stool Enteric Bacteriology - Final 09/28/21 15:40 Stool Stool Lactoferrin - Final 09/28/21 15:40 Stool C. difficile DNA Amplification - Final 09/21/21 01:18 Nasal Secretion SARS-CoV-2 Antigen (Rapid) - Final Assessment & Plan Assessment/Plan (1) Postoperative wound infection: PLAN: We will remove NG tube and start him on clear liquids.
[2021-10-12] MEDS: Nystatin Powder 15gm Bottle 1 APPLIC TOPICAL (10:17)
[2021-10-12] MEDS: DAKIN'S SOL HALF STRENGTH (=0.25%) 1 APPLIC TOPICAL (11:42)
[2021-10-12 12:15] LABS: Bedside Glucose 122 mg/dL (74-106)
[2021-10-12] MEDS: HYDROmorphone 1 MG/ML Syringe IV ×3 (13:54→22:08)
[2021-10-12] MEDS: TPN - Clinimix E 8%-14% Soln 2,000 ML with Multivitamins 10 ML, Trace Elements 1 ML, Fo... 84 ML IV (16:04)
[2021-10-12] MEDS: 0.9% Normal Saline 1,000 ML 75 ML IV (16:05)
[2021-10-12] MEDS: 0.9% Saline Lock 10 ML Syringe IV ×3 (16:05→23:37)
[2021-10-12 18:04] LABS: Vancomycin, Trough Level 16.2 ug/mL (5.0-15.0)
--- NOTE | 2021-10-12 18:38 | PCM.RX.CS ---
Consult Pharmacy has been consulted to manage selected antiobiotic: Vancomycin Type of Consult: Follow-up Suspected Infection: Skin/Soft tissue Prior Doses of Antibiotics Received/Current Regimen: Currently on 1250mg iv q8h. Labs: Sodium 148 mmol/L (136-145) H 10/12/21 06:23 Potassium 3.5 mmol/L (3.5-5.1) 10/12/21 06:23 Chloride 122 mmol/L (98-107) H 10/12/21 06:23 Carbon Dioxide 24.0 mmol/L (21.0-32.0) 10/12/21 06:23 Anion Gap 2 (5-15) L 10/12/21 06:23 BUN 33 mg/dL (7-18) H 10/12/21 06:23 Creatinine 0.64 mg/dL (0.70-1.30) L 10/12/21 06:23 Est GFR (MDRD) Af Amer 163 mL/min (>60) 10/12/21 06:23 Est GFR (MDRD) Non-Af 135 mL/min (>60) 10/12/21 06:23 BUN/Creatinine Ratio 51.6 RATIO (10-20) H 10/12/21 06:23 Glucose 137 mg/dL (74-106) H 10/12/21 06:23 Vancomycin Trough 16.2 ug/mL (5.0-15.0) H 10/12/21 17:25 Microbiology: Microbiology 10/09/21 Unknown Tissue - Abdominal Gram Stain - Final 10/09/21 Unknown Tissue - Abdominal Wound Culture - Final Escherichia coli 10/09/21 Unknown Tissue - Abdominal Anaerobic Culture - Preliminary Checking for anaerobes, further studies to follow. 10/07/21 07:50 Incision/Surgical Site Gram Stain - Final 10/07/21 07:50 Incision/Surgical Site Wound Culture - Final Escherichia coli 10/07/21 07:50 Incision/Surgical Site Anaerobic Culture - Final Bacteroides caccae Bacteroides thetaiotaomicron Clostridium group 09/30/21 13:05 Mario Samuel Drainage Gram Stain - Final 09/30/21 13:05 Mario Samuel Drainage Body Fluid Culture - Final Escherichia coli 09/30/21 13:05 Mario Samuel Drainage Anaerobic Culture - Final Bacteroides thetaiotaomicron Clostridium ramosum 09/29/21 05:45 Stool Ova and Parasites - Final 10/01/21 17:10 Nasal Secretion SARS-CoV-2 Antigen (Rapid) - Final 09/29/21 05:45 Stool Enteric Bacteriology - Final 09/28/21 15:40 Stool Stool Lactoferrin - Final 09/28/21 15:40 Stool C. difficile DNA Amplification - Final 09/21/21 01:18 Nasal Secretion SARS-CoV-2 Antigen (Rapid) - Final Weight used for dosin.7 kg Estimated Creatinine Clearance: >100 ml/mi Goal Trough: 15-20 mcg/mL Pharmacy Plan for Drug Dosing: Trough today was 16.2 (~7 hrs post dose) and in desired therapeutic range. Renal Cr improved from 0.81 to 0.64. Will continue same dose and get another trough before another 4th dose. Pharmacy Service will continue to monitor and adjust dosing as required. Follow-Up Labs: Trough Vancomycin - 3.13.22 @1730 before 1800 dose.
[2021-10-12 18:51] LABS: Bedside Glucose 138 mg/dL (74-106)
--- NOTE | 2021-10-12 19:41 | NURSING ---
per report -Darcy did the HS dressing change for 10/12/21
--- NOTE | 2021-10-12 20:48 | NURSING ---
pt states he is going to have everything removed tomorrow and he will be leaving.
[2021-10-12 21:00] LABS: Absolute Lymphocyte Count 1.57 X10^3/uL (0.83-4.51); Absolute Neutrophil Count 7.1 X10^3/uL (2.0-7.7); Basophil# 0.04 X10^3/uL; Basophil% 0.4 % (0-1); Eosinophil# 0.13 X10^3/uL; Eosinophils% 1.3 % (0-5); Hematocrit 26.7 % (40-54); Hemoglobin 9.1 g/dL (13.0-16.5); Lymphocyte # 1.57 X10^3/ul (0.83-4.51); Lymphocyte % 16.1 % (19-41); Mean Corp Hgb Conc 34.1 g/dL (32-36); Mean Corpuscular Hgb 32.2 pg (27.0-32.0); Mean Corpuscular Volume 94.3 fL (80-94); Mean Platelet Vol. 10.1 fl (6.2-12.0); Monocyte# 0.72 X10^3/uL; Monocyte% 7.4 % (0-10); NRBC Flagged by Analyzer 0 % (0-5); Neutrophil # 7.14 X10^3/uL (2.7-7.7); Neutrophil % 73.2 % (47-70); Platelet Count 422 K/mm3 (150-450); RBC Distribution Width CV 15.8 % (11.6-14.6); RBC Distribution Width SD 54.5 fl (35.1-43.9); Red Blood Count 2.83 M/mm3 (4.6-6.2); White Blood Count 9.8 K/mm3 (4.4-11.0)
[2021-10-12 21:19] LABS: Anion Gap 4 (5-15); BUN 28 mg/dL (7-18); BUN/Creat Ratio 47.4 RATIO (10-20); Calcium,Total 7.6 mg/dL (8.5-10.1); Chloride 124 mmol/L (98-107); Creatinine, Serum 0.59 mg/dL (0.70-1.30); EST Glomerular Filtration Rate 148 mL/min (>60); Est Glom Filt Rate - Afr Amer 179 mL/min (>60); Estimated Creatinine Clearance 159.38 ml/min; Glucose 140 mg/dL (74-106); Magnesium 1.8 mg/dL (1.6-2.6); Phosphorus 2.2 mg/dL (2.5-4.9); Potassium 3.3 mmol/L (3.5-5.1); Sodium Level 149 mmol/L (136-145)
[2021-10-12 23:56] LABS: Bedside Glucose 140 mg/dL (74-106)
[2021-10-13] VITALS (7 sets, daily range): BP systolic 153–175; BP diastolic 81–107; PULSE 86–94; RESP 18–20; TEMP 36.6–36.7; O2SAT 93–97
[2021-10-13] MEDS: HYDROmorphone 1 MG/ML Syringe IV ×5 (03:08→22:39)
[2021-10-13] MEDS: 0.9% Saline Lock 10 ML Syringe IV ×6 (03:08→22:39)
[2021-10-13] MEDS: 0.9% Normal Saline 1,000 ML 75 ML IV ×2 (05:47→22:36)
[2021-10-13] MEDS: Ketorolac 30 MG/ML Syringe IV ×3 (05:48→18:25)
[2021-10-13 06:16] LABS: Bedside Glucose 131 mg/dL (74-106)
[2021-10-13] MEDS: Ipratropium/Albuterol Sulfate 3 ML AMPUL.NEB INHALATION ×3 (07:19→19:04)
[2021-10-13] MEDS: Nystatin Powder 15gm Bottle 1 APPLIC TOPICAL ×2 (10:02→22:46)
[2021-10-13] MEDS: DAKIN'S SOL HALF STRENGTH (=0.25%) 1 APPLIC TOPICAL ×2 (10:08→18:55)
[2021-10-13 11:30] LABS: Bedside Glucose 135 mg/dL (74-106)
[2021-10-13 14:36] LABS: Absolute Lymphocyte Count 1.47 X10^3/uL (0.83-4.51); Absolute Neutrophil Count 6.4 X10^3/uL (2.0-7.7); Basophil# 0.08 X10^3/uL; Basophil% 0.9 % (0-1); Eosinophil# 0.21 X10^3/uL; Eosinophils% 2.3 % (0-5); Hematocrit 28.1 % (40-54); Hemoglobin 9.4 g/dL (13.0-16.5); Lymphocyte # 1.47 X10^3/ul (0.83-4.51); Lymphocyte % 15.9 % (19-41); Mean Corp Hgb Conc 33.5 g/dL (32-36); Mean Corpuscular Hgb 32.2 pg (27.0-32.0); Mean Corpuscular Volume 96.2 fL (80-94); Mean Platelet Vol. 10.1 fl (6.2-12.0); Monocyte# 0.82 X10^3/uL; Monocyte% 8.9 % (0-10); NRBC Flagged by Analyzer 0 % (0-5); Neutrophil % 69.3 % (47-70); Platelet Count 454 K/mm3 (150-450); RBC Distribution Width CV 15.9 % (11.6-14.6); Red Blood Count 2.92 M/mm3 (4.6-6.2); White Blood Count 9.2 K/mm3 (4.4-11.0)
[2021-10-13 14:49] LABS: Anion Gap 4 (5-15); BUN 23 mg/dL (7-18); BUN/Creat Ratio 46.4 RATIO (10-20); Calcium,Total 7.7 mg/dL (8.5-10.1); Chloride 122 mmol/L (98-107); EST Glomerular Filtration Rate 181 mL/min (>60); Est Glom Filt Rate - Afr Amer 219 mL/min (>60); Estimated Creatinine Clearance 188.07 ml/min; Glucose 131 mg/dL (74-106); Phosphorus 2.2 mg/dL (2.5-4.9); Potassium 3.5 mmol/L (3.5-5.1); Sodium Level 146 mmol/L (136-145)
[2021-10-13] MEDS: TPN - Clinimix E 8%-14% Soln 2,000 ML with Multivitamins 10 ML, Trace Elements 1 ML, Fo... 84 ML IV (16:13)
[2021-10-13 18:42] LABS: Vancomycin, Trough Level 18.4 ug/mL (5.0-15.0)
[2021-10-13 18:46] LABS: Bedside Glucose 130 mg/dL (74-106)
--- NOTE | 2021-10-13 19:22 | PCM.RX.CS ---
Consult Pharmacy has been consulted to manage selected antiobiotic: Vancomycin Type of Consult: Follow-up Labs: Sodium 146 mmol/L (136-145) H 10/13/21 14:17 Potassium 3.5 mmol/L (3.5-5.1) 10/13/21 14:17 Chloride 122 mmol/L (98-107) H 10/13/21 14:17 Carbon Dioxide 20.0 mmol/L (21.0-32.0) L 10/13/21 14:17 Anion Gap 4 (5-15) L 10/13/21 14:17 BUN 23 mg/dL (7-18) H 10/13/21 14:17 Creatinine 0.50 mg/dL (0.70-1.30) L 10/13/21 14:17 Est GFR (MDRD) Af Amer 219 mL/min (>60) 10/13/21 14:17 Est GFR (MDRD) Non-Af 181 mL/min (>60) 10/13/21 14:17 BUN/Creatinine Ratio 46.4 RATIO (10-20) H 10/13/21 14:17 Glucose 131 mg/dL (74-106) H 10/13/21 14:17 Vancomycin Trough 18.4 ug/mL (5.0-15.0) H 10/13/21 17:48 Microbiology: Microbiology 10/09/21 Unknown Tissue - Abdominal Gram Stain - Final 10/09/21 Unknown Tissue - Abdominal Wound Culture - Final Escherichia coli 10/09/21 Unknown Tissue - Abdominal Anaerobic Culture - Preliminary Checking for anaerobes, further studies to follow. 10/07/21 07:50 Incision/Surgical Site Gram Stain - Final 10/07/21 07:50 Incision/Surgical Site Wound Culture - Final Escherichia coli 10/07/21 07:50 Incision/Surgical Site Anaerobic Culture - Final Bacteroides caccae Bacteroides thetaiotaomicron Clostridium group 09/30/21 13:05 Mario Samuel Drainage Gram Stain - Final 09/30/21 13:05 Mario Samuel Drainage Body Fluid Culture - Final Escherichia coli 09/30/21 13:05 Mario Samuel Drainage Anaerobic Culture - Final Bacteroides thetaiotaomicron Clostridium ramosum 09/29/21 05:45 Stool Ova and Parasites - Final 10/01/21 17:10 Nasal Secretion SARS-CoV-2 Antigen (Rapid) - Final 09/29/21 05:45 Stool Enteric Bacteriology - Final 09/28/21 15:40 Stool Stool Lactoferrin - Final 09/28/21 15:40 Stool C. difficile DNA Amplification - Final 09/21/21 01:18 Nasal Secretion SARS-CoV-2 Antigen (Rapid) - Final Goal Trough: 15-20 mcg/mL Pharmacy Plan for Drug Dosing: Pharmacy Service will continue to monitor and adjust dosing as required. TROUGH 18.2 AT 7.5 HRS. SCr DECREASED FROM 0.64 TO 0.5. NO CHANGES, FOLLOW UP TROUGH IN 2 DAYS Follow-Up Labs: Trough Vancomycin Labs to be done on [date and time ordered]: 10/15 @ 2915
[2021-10-14] VITALS (9 sets, daily range): BP systolic 136–168; BP diastolic 85–98; PULSE 74–89; RESP 18–20; TEMP 36.1–37.3; O2SAT 95–98
[2021-10-14] MEDS: 0.9% Saline Lock 10 ML Syringe IV ×3 (00:34→06:09)
[2021-10-14] MEDS: Ketorolac 30 MG/ML Syringe IV ×4 (00:34→18:35)
[2021-10-14 00:41] LABS: Bedside Glucose 131 mg/dL (74-106)
[2021-10-14] MEDS: HYDROmorphone 1 MG/ML Syringe IV (04:04)
[2021-10-14 06:26] LABS: Bedside Glucose 159 mg/dL (74-106)
[2021-10-14 06:27] LABS: Absolute Lymphocyte Count 1.32 X10^3/uL (0.83-4.51); Absolute Neutrophil Count 7.7 X10^3/uL (2.0-7.7); Basophil# 0.08 X10^3/uL; Basophil% 0.8 % (0-1); Eosinophil# 0.24 X10^3/uL; Eosinophils% 2.3 % (0-5); Hematocrit 27.9 % (40-54); Hemoglobin 9.6 g/dL (13.0-16.5); Lymphocyte # 1.32 X10^3/ul (0.83-4.51); Lymphocyte % 12.6 % (19-41); Mean Corp Hgb Conc 34.4 g/dL (32-36); Mean Corpuscular Hgb 31.9 pg (27.0-32.0); Mean Corpuscular Volume 92.7 fL (80-94); Mean Platelet Vol. 10.2 fl (6.2-12.0); Monocyte# 0.91 X10^3/uL; Monocyte% 8.7 % (0-10); NRBC Flagged by Analyzer 0 % (0-5); Neutrophil # 7.73 X10^3/uL (2.7-7.7); Neutrophil % 73.7 % (47-70); Platelet Count 465 K/mm3 (150-450); RBC Distribution Width CV 15.5 % (11.6-14.6); RBC Distribution Width SD 52.4 fl (35.1-43.9); Red Blood Count 3.01 M/mm3 (4.6-6.2); White Blood Count 10.5 K/mm3 (4.4-11.0)
[2021-10-14 07:01] LABS: ALB/GLOB Ratio 0.3 RATIO (0.9-2.4); AST(SGOT) 39 U/L (15-37); Alanine Aminotransfer ALT/SGPT 45 U/L (16-61); Albumin, Serum 1.5 g/dL (3.2-5.0); Alkaline Phosphatase 158 U/L (45-117); Anion Gap 5 (5-15); BUN 19 mg/dL (7-18); BUN/Creat Ratio 40.1 RATIO (10-20); Calcium,Total 7.5 mg/dL (8.5-10.1); Chloride 117 mmol/L (98-107); Creatinine, Serum 0.47 mg/dL (0.70-1.30); EST Glomerular Filtration Rate 190 mL/min (>60); Est Glom Filt Rate - Afr Amer 230 mL/min (>60); Estimated Creatinine Clearance 200.07 ml/min; Globulin 4.3 g/dL (2.2-4.2); Glucose 129 mg/dL (74-106); Magnesium 2.2 mg/dL (1.6-2.6); Phosphorus 2.2 mg/dL (2.5-4.9); Potassium 3.4 mmol/L (3.5-5.1); Protein, Total 5.8 g/dL (6.4-8.2); Sodium Level 145 mmol/L (136-145); Triglycerides 121 mg/dL
[2021-10-14] MEDS: Ipratropium/Albuterol Sulfate 3 ML AMPUL.NEB INHALATION ×2 (07:04→19:24)
--- NOTE | 2021-10-14 07:55 | PN.SURG_ITS ---
Subjective Subjective Patient seen and evaluated during AM rounds. He is sitting in bed but is upright alert and in better spirits today. He denies any nausea. He states that he feels better. He claims an appetite. He has been passing regular flatus but not had additional bowel movements. Objective Data Objective Data Vital Signs: Vital Signs Temp Pulse Resp BP Pulse Ox 97.7 F L 81 18 165/91 H 95 10/14/21 04:00 10/14/21 07:04 10/14/21 07:04 10/14/21 06:11 10/14/21 07:04 Oxygen Flow Rate (L/min) [At 2 REST with Oxygen] Oxygen Flow Rate (L/min) 4 Oxygen Delivery Method Room Air Weight: 236 lb 12.423 oz Body Mass Index (BMI) 29.0 Intake & Output: Intake and Output for Last 24 Hours 10/12/21 10/13/21 10/14/21 22:59 23:59 23:59 Intake Total 660 / 660 Output Total 750 / 750 Balance -90 / -90 Medical Nutrition Assessment Dietitian: Malnutrition Criteria Met Start: 10/10/21 10:28 Freq: Status: Active Protocol: Document 10/13/21 12:08 (Rec: 10/13/21 12:08 [id number]) Nutrition Malnutrition Evidence of Malnutrition Exists Yes Malnutrition (severe): Acute Illness/Injury Evidenced By Suboptimal Energy Intake ( Severe),Weight Loss (Severe) Intake Problem Inadequate Oral Intake Etiology related to altered GI function s/p surgery Signs/Symptoms as evidenced by NPO, estimated energy intake meeting <50% of estimated nutritional needs > 5 days Status Active Problem Clinical Problem Acute Disease or Injury Related Malnutrition Etiology severe, acute malnutrition r/t inadequate energy intake w/ increased energy needs d/t multiple abd surgeries, wound, infection Signs/Symptoms as evidenced by unintentional wt loss of 10.8#/4% <1 month, estimated energy intake from PO diet/TPN meeting <75% of estimated energy needs >1 week Status Active Problem Recommendation Dietitian Recommendations/Changes 1) For Day #14 TPN: 2L 8%AA/14 % dextrose solution w/ MVI/ electrolytes/trace minerals to provide 1593 calories, 160 g protein/day. No insulin or famotidine per provider order. 2) Recommend advance diet as tolerated to transitional; ensure clear w/ medpass as PO diet advanced. Wean TPN as PO intake improves. 3) Daily wts. Monitoring of labs. Lab / Micro Data Result Diagrams: 10/14/21 05:56 10/14/21 05:56 Labs: Laboratory Results - last 24 hr 10/13/21 11:18: POC Glucose 135 H 10/13/21 14:17: WBC 9.2, RBC 2.92 L, Hgb 9.4 L, Hct 28.1 L, MCV 96.2 H, MCH 32.2 H, MCHC 33.5, RDW Std Deviation 56.0 H, RDW Coeff of Ar 15.9 H, Plt Count 454 H , MPV 10.1, Immature Gran % (Auto) 2.700 H, Neut % (Auto) 69.3, Lymph % (Auto) 15.9 L, [place] % (Auto) 8.9, Eos % (Auto) 2.3, Baso % (Auto) 0.9, Absolute Neuts (auto) 6.4, Absolute Lymphs (auto) 1.47, Nucleated RBC % 0 10/13/21 14:17: Sodium 146 H, Potassium 3.5, Chloride 122 H, Carbon Dioxide 20.0 L, Anion Gap 4 L, BUN 23 H, Creatinine 0.50 L, Estim Creat Clear Calc 188.07, Est GFR (MDRD) Af Amer 219, Est GFR (MDRD) Non-Af 181, BUN/Creatinine Ratio 46.4 H, Glucose 131 H, Calcium 7.7 L, Phosphorus 2.2 L, Magnesium 2.0 10/13/21 17:48: Vancomycin Trough 18.4 H 10/13/21 18:32: POC Glucose 130 H 10/14/21 00:32: POC Glucose 131 H 10/14/21 05:56: Sodium 145, Potassium 3.4 L, Chloride 117 H, Carbon Dioxide 23.0, Anion Gap 5, BUN 19 H, Creatinine 0.47 L, Estim Creat Clear Calc 200.07, Est GFR (MDRD) Af Amer 230, Est GFR (MDRD) Non-Af 190, BUN/Creatinine Ratio 40.1 H, Glucose 129 H, Calcium 7.5 L, Phosphorus 2.2 L, Magnesium 2.2, Total Bilirubin 0.50, AST 39 H, ALT 45, Alkaline Phosphatase 158 H, Total Protein 5.8 L, Albumin 1.5 L, Globulin 4.3 H, Albumin/Globulin Ratio 0.3 L, Triglycerides 121 10/14/21 05:56: WBC 10.5, RBC 3.01 L, Hgb 9.6 L, Hct 27.9 L, MCV 92.7, MCH 31.9, MCHC 34.4, RDW Std Deviation 52.4 H, RDW Coeff of Ar 15.5 H, Plt Count 465 H, MPV 10.2, Immature Gran % (Auto) 1.900 H, Neut % (Auto) 73.7 H, Lymph % (Auto) 12.6 L, [place] % (Auto) 8.7, Eos % (Auto) 2.3, Baso % (Auto) 0.8, Absolute Neuts (auto) 7.7, Absolute Lymphs (auto) 1.32, Nucleated RBC % 0 10/14/21 06:16: POC Glucose 159 H Micro: Microbiology 10/09/21 Unknown Tissue - Abdominal Gram Stain - Final 10/09/21 Unknown Tissue - Abdominal Wound Culture - Final Escherichia coli 10/09/21 Unknown Tissue - Abdominal Anaerobic Culture - Preliminary Checking for anaerobes, further studies to follow. 10/07/21 07:50 Incision/Surgical Site Gram Stain - Final 10/07/21 07:50 Incision/Surgical Site Wound Culture - Final Escherichia coli 10/07/21 07:50 Incision/Surgical Site Anaerobic Culture - Final Bacteroides caccae Bacteroides thetaiotaomicron Clostridium group 09/30/21 13:05 Mario Samuel Drainage Gram Stain - Final 09/30/21 13:05 Mario Samuel Drainage Body Fluid Culture - Final Escherichia coli 09/30/21 13:05 Mario Samuel Drainage Anaerobic Culture - Final Bacteroides thetaiotaomicron Clostridium ramosum 09/29/21 05:45 Stool Ova and Parasites - Final 10/01/21 17:10 Nasal Secretion SARS-CoV-2 Antigen (Rapid) - Final 09/29/21 05:45 Stool Enteric Bacteriology - Final 09/28/21 15:40 Stool Stool Lactoferrin - Final 09/28/21 15:40 Stool C. difficile DNA Amplification - Final 09/21/21 01:18 Nasal Secretion SARS-CoV-2 Antigen (Rapid) - Final Physical Exam Const oriented x3 and no apparent distress Resp normal respiratory effort GI GI Narrative: Decreased abdominal distention, soft, only mildly tender to palpation about midline laparotomy. Dressing remains in place over laparotomy without signs of strikethrough drainage. Right-sided abdominal drains with thin yellow output. Assessment & Plan Assessment/Plan (1) S/P laparoscopic appendectomy: PLAN: Patient required return to the OR on 09/24/2021 after pathology reported they did not identify appendix in the patient's surgical specimen from 09/21/2021. Therefore, patient is postoperative day 20 from hand-assisted laparoscopic appendectomy with drain placement. Unfortunately, patient developed evidence of a controlled perforation from the terminal ileum?per drain study 10/01/2021. He was thus n.p.o. and initiated TPN. He was then taken for open ileocecectomy on 10/02/2021 (2) Appendicitis with perforation: PLAN: Status post above operative course (3) Perforation of small intestine: PLAN: Patient postoperative day 13 from open ileocecectomy. Patient was held NPO after character of wound drainage became more malodorous and cloudy. Bedside wound exploration performed but not well tolerated. Did find evidence of necrotic fascia and patient was posted for operative exploration. Underwent re-exploratory laparotomy on 10/09/2021 with abdominal washout, drain placement, fascial debridement, and abdominal wall closure with placement of retention sutures. Neuro: As needed Dilaudid?decreased to 0.5 mg every 3 hours as needed postoperative pain Pulm/CV: Supplemental O2 as needed; wean as able, DuoNebs every 6 hours while awake, telemetry FEN/GI: Replace lytes per labs today. Advance to clear liquid diet without carbonation with TPN?renew TPN today (patient with severe protein calorie malnutrition as evinced by his recent albumin/prealbumin labs (10/09). Reglan as 2nd line antiemetic. : Continue application of nystatin powder to groin yeast infection Heme/ID: White count now within normal limits but patient is on meropenem, continue meropenem and vancomycin given abscess and wound infection noted 10/09, follow-up tissue cultures from the OR Endo: Mild hyperglycemia related to TPN Proph: SCDs, resume subcu heparin every 8 hours, patient encouraged to ambulate and be up and out of bed in a chair as much as possible Dispo: Continue inpatient care (4) Intra-abdominal abscess: PLAN: s/p ab washout with additional drain placement 10/09/21 (5) Postoperative wound infection: PLAN: s/p fascial debridement and ab wall closure 10/09/21 (skin left open) Charges/Coding Visit Charges Inpatient E&M: 52025 Subs Hosp L2
[2021-10-14] MEDS: HYDROmorphone 0.5 MG/0.5 ML SYRINGE IV ×3 (10:07→22:11)
[2021-10-14] MEDS: Nystatin Powder 15gm Bottle 1 APPLIC TOPICAL ×2 (10:14→20:58)
[2021-10-14] MEDS: DAKIN'S SOL HALF STRENGTH (=0.25%) 1 APPLIC TOPICAL ×2 (10:17→20:59)
[2021-10-14] MEDS: 0.9% Normal Saline 1,000 ML 75 ML IV (11:36)
[2021-10-14 11:41] LABS: Bedside Glucose 145 mg/dL (74-106)
--- NOTE | 2021-10-14 11:55 | WOUNDNOTE ---
wound photo: abdomen
--- NOTE | 2021-10-14 13:31 | CON.PCM.ID_ITS ---
Assessment & Plan Assessment/Plan (1) Intra-abdominal abscess: (2) Appendicitis with perforation: PLAN: On vanc/naheed, surg cxs with medrano-S ecoli and anaerobes. Will continue with broad coverage given the complications he has had. No signs of ongoing fasciitis. Diet to be advanced today. Wbc much improved and feeling better. Total duration of abx will depend on drain output, would consider repeat CT towards the end of the week, prior to stopping abx. Will follow, thank you, d/w Dr. Taveras (3) Postoperative wound infection: HPI Consult Data Date of Consult: 10/14/21 HPI Narrative HPI Narrative: OLGA SANTOYO, is a 61 M who presented 09/21 to the ED with several days progressive RLQ abd pain, n/v/d. Some fever, some loss of appetite. CT showed appendicitis and possible perforation. Admitted on iv abx, taken to OR by Dr. Taveras on 09/21 for lap appy and removal of small bowel diverticulum. Drain was placed. Pt had rising wbc, path did not show any appendix, so was taken back to OR 09/24 for hand-assisted lap appy. Repeat CT showed ongoing perforation, TPN started, taken back to OR 10/02 for open ileocecectomy. After, wbc worsened with purulence seen in drain and abd incision. CT showed 5x6x5 abscess. Taken back 10/09 to OR for necrotic fascia, deep wound space infection, washout, placement of retention sutures. 10/11 abx broadened to vanc/naheed. Now today, feeling better, passing stool and flatus, going to start clears. No fever. Pain controlled. Full ROS performed and neg except as noted above. Reports covid vaccination up to date. FORMERLY [facility] Medical History Anemia Arthritis Back pain due to injury Chronic pain Difficulty balancing Hypertension Limb weakness MRSA (methicillin resistant staph aureus) culture positive neck/back pain Pancreatitis Shoulder pain Home Medications cyclobenzaprine 10 mg PO BID PRN 09/21/21 [History Last Taken Unknown] prazosin 1 mg PO DAILY 09/25/21 [History Last Taken Unknown] Allergy/AdvReac Type Severity Reaction Status Date / Time acetaminophen AdvReac Nausea/Vom/ Verified 09/20/21 22:47 Diarrhea fentanyl [From Duragesic] AdvReac Nausea/Vom/ Verified 09/20/21 22:47 Diarrhea metoclopramide HCl AdvReac anxiety Verified 09/20/21 22:47 [From Reglan] nabumetone [From Relafen] AdvReac Nausea/Vom/ Verified 09/20/21 22:47 Diarrhea Family History Father Cancer Mother Parkinson disease Surgical History History of hernia repair Previous back surgery Social History Smoking Status: Former smoker alcohol intake: never Physical Exam Const alert and no apparent distress General Appearance: cooperative Exam Limitations: no limitations HEENT normocephalic and head/scalp atraumatic Eyes PERRL and EOMs intact bilaterally Neck supple and No nodes Resp normal air movement and clear to auscultation bilaterally Cardio regular rate and regular rhythm GI soft to palpation and non-distended GI Narrative: drain in place, some cloudy fluid present Extremity no clubbing, cyanosis or edema Skin no rashes or lesions noted Neuro CN's II-XII intact bilaterally Medical Records Data Medical Nutrition Assessment Dietitian: Malnutrition Criteria Met Start: 10/10/21 10:28 Freq: Status: Active Protocol: Document 10/14/21 09:54 EFRAÍN (Rec: 10/14/21 09:54 EFRAÍN [id number]) Nutrition Malnutrition Evidence of Malnutrition Exists Yes Malnutrition (severe): Acute Illness/Injury Evidenced By Suboptimal Energy Intake ( Severe),Weight Loss (Severe) Intake Problem Inadequate Oral Intake Etiology related to altered GI function s/p surgery Signs/Symptoms as evidenced by NPO, estimated energy intake meeting <50% of estimated nutritional needs > 5 days Status Active Problem Clinical Problem Acute Disease or Injury Related Malnutrition Etiology severe, acute malnutrition r/t inadequate energy intake w/ increased energy needs d/t multiple abd surgeries, wound, infection Signs/Symptoms as evidenced by unintentional wt loss of 5.5% <1 month, estimated energy intake from PO diet/TPN meeting <75% of estimated energy needs >1 week Status Active Problem Recommendation Dietitian Recommendations/Changes 1) For Day #15 TPN: 2L 8%AA/14 % dextrose solution w/ MVI/ electrolytes/trace minerals and 250 ml 20% lipids to provide 2093 calories, 160 g protein/day. No insulin or famotidine per provider order. 2) Recommend advance diet as tolerated to transitional; ensure clear w/ medpass as PO diet advanced. Wean TPN as PO intake improves. 3) Daily wts. Monitoring of labs. Lab / Micro Data Result Diagrams: 10/14/21 05:56 10/14/21 05:56 Labs: Laboratory Results - last 24 hr 10/13/21 14:17: WBC 9.2, RBC 2.92 L, Hgb 9.4 L, Hct 28.1 L, MCV 96.2 H, MCH 32.2 H, MCHC 33.5, RDW Std Deviation 56.0 H, RDW Coeff of Ar 15.9 H, Plt Count 454 H , MPV 10.1, Immature Gran % (Auto) 2.700 H, Neut % (Auto) 69.3, Lymph % (Auto) 15.9 L, Hale % (Auto) 8.9, Eos % (Auto) 2.3, Baso % (Auto) 0.9, Absolute Neuts (auto) 6.4, Absolute Lymphs (auto) 1.47, Nucleated RBC % 0 10/13/21 14:17: Sodium 146 H, Potassium 3.5, Chloride 122 H, Carbon Dioxide 20.0 L, Anion Gap 4 L, BUN 23 H, Creatinine 0.50 L, Estim Creat Clear Calc 188.07, Est GFR (MDRD) Af Amer 219, Est GFR (MDRD) Non-Af 181, BUN/Creatinine Ratio 46.4 H, Glucose 131 H, Calcium 7.7 L, Phosphorus 2.2 L, Magnesium 2.0 10/13/21 17:48: Vancomycin Trough 18.4 H 10/13/21 18:32: POC Glucose 130 H 10/14/21 00:32: POC Glucose 131 H 10/14/21 05:56: Sodium 145, Potassium 3.4 L, Chloride 117 H, Carbon Dioxide 23.0, Anion Gap 5, BUN 19 H, Creatinine 0.47 L, Estim Creat Clear Calc 200.07, Est GFR (MDRD) Af Amer 230, Est GFR (MDRD) Non-Af 190, BUN/Creatinine Ratio 40.1 H, Glucose 129 H, Calcium 7.5 L, Phosphorus 2.2 L, Magnesium 2.2, Total Reagan irubin 0.50, AST 39 H, ALT 45, Alkaline Phosphatase 158 H, Total Protein 5.8 L, Albumin 1.5 L, Globulin 4.3 H, Albumin/Globulin Ratio 0.3 L, Triglycerides 121 10/14/21 05:56: WBC 10.5, RBC 3.01 L, Hgb 9.6 L, Hct 27.9 L, MCV 92.7, MCH 31.9, MCHC 34.4, RDW Std Deviation 52.4 H, RDW Coeff of Ar 15.5 H, Plt Count 465 H, MPV 10.2, Immature Gran % (Auto) 1.900 H, Neut % (Auto) 73.7 H, Lymph % (Auto) 12.6 L, Hale % (Auto) 8.7, Eos % (Auto) 2.3, Baso % (Auto) 0.8, Absolute Neuts (auto) 7.7, Absolute Lymphs (auto) 1.32, Nucleated RBC % 0 10/14/21 06:16: POC Glucose 159 H 10/14/21 11:33: POC Glucose 145 H
--- NOTE | 2021-10-14 13:48 | CHAPLAIN ---
Type of Pastoral Visit ___ Initial Visit _x__ Follow-up Visit ___ On-call Visit ___ General Patient Visit ___ Spiritual Assessment ___ Family Conference ___ Bereavement ___ Rapid Response ___ Code Blue ___ Other (describe below) Pastoral Care Referral From _x__ Patient ___ Family ___ Nurse ___ Physician ___ Heat Treating Bluer ___ Receptionist/Telephone Operator ___ Other (describe below) Sacrament/Intervention _x__ Active listening ___ Anointing ___ Quaker ___ Bereavement ___ Communion ___ Angelica exploration ___ ___ Life review _x__ Prayer ___ Reconciliation ___ Sacrament of Sick _x_ Supportive presence ___ Wedding ___ Other (describe below) Pastoral Comments patient expresses frustration with spouse and adding more stress while I'm in here and not able to fix what she wants; pt has questions of spiritual nature; pt is tearful and apologizes for being so down; pt welcomes prayer; pt states that visits with inspector multifocal lens bring him calm
[2021-10-14] MEDS: Ensure Clear 120 ML Liquid PO ×2 (14:11→18:35)
[2021-10-14] MEDS: TPN - Clinimix E 8%-14% Soln 2,000 ML with Multivitamins 10 ML, Trace Elements 1 ML, Fo... 84 ML IV (16:47)
[2021-10-14] MEDS: Fat Emulsions 20% 250 ML IV (16:51)
[2021-10-14 19:31] LABS: Bedside Glucose 136 mg/dL (74-106)
[2021-10-14] MEDS: 0.9% Normal Saline 1,000 ML 50 ML IV (20:55)
[2021-10-14] MEDS: Heparin Injection (Vial) 5,000 UNIT/ML VIAL 5000 UNIT SC (21:02)
[2021-10-15] VITALS (8 sets, daily range): BP systolic 139–161; BP diastolic 82–99; PULSE 91–100; RESP 16–20; TEMP 36.6–37.4; O2SAT 93–95
--- NOTE | 2021-10-15 00:01 | NURSING ---
pts Blood glucose at this time is 142. did not transfer over from glucometer
[2021-10-15] MEDS: HYDROmorphone 0.5 MG/0.5 ML SYRINGE IV ×6 (03:11→18:29)
[2021-10-15] MEDS: Menthol/Lanolin/Calamine/Znox 113 GM Tube 1 APPLIC TOPICAL ×3 (05:36→21:13)
[2021-10-15] MEDS: Heparin Injection (Vial) 5,000 UNIT/ML VIAL 5000 UNIT SC ×3 (05:37→21:14)
--- NOTE | 2021-10-15 05:45 | NURSING ---
0535 Blood Glucose this AM was 142. not crossing over into computer
[2021-10-15 06:46] LABS: Absolute Lymphocyte Count 1.43 X10^3/uL (0.83-4.51); Absolute Neutrophil Count 10.1 X10^3/uL (2.0-7.7); Basophil# 0.07 X10^3/uL; Basophil% 0.5 % (0-1); Eosinophil# 0.35 X10^3/uL; Eosinophils% 2.6 % (0-5); Hematocrit 28.5 % (40-54); Lymphocyte # 1.43 X10^3/ul (0.83-4.51); Lymphocyte % 10.8 % (19-41); Mean Corp Hgb Conc 35.1 g/dL (32-36); Mean Corpuscular Hgb 32.5 pg (27.0-32.0); Mean Corpuscular Volume 92.5 fL (80-94); Mean Platelet Vol. 10.2 fl (6.2-12.0); Monocyte# 1.08 X10^3/uL; Monocyte% 8.1 % (0-10); NRBC Flagged by Analyzer 0.2 % (0-5); Neutrophil # 10.09 X10^3/uL (2.7-7.7); Neutrophil % 75.9 % (47-70); Platelet Count 477 K/mm3 (150-450); RBC Distribution Width CV 15.4 % (11.6-14.6); RBC Distribution Width SD 50.8 fl (35.1-43.9); Red Blood Count 3.08 M/mm3 (4.6-6.2); White Blood Count 13.3 K/mm3 (4.4-11.0)
[2021-10-15 07:24] LABS: Anion Gap 2 (5-15); BUN 20 mg/dL (7-18); Calcium,Total 7.5 mg/dL (8.5-10.1); Chloride 112 mmol/L (98-107); Creatinine, Serum 0.46 mg/dL (0.70-1.30); EST Glomerular Filtration Rate 195 mL/min (>60); Est Glom Filt Rate - Afr Amer 236 mL/min (>60); Estimated Creatinine Clearance 204.42 ml/min; Glucose 125 mg/dL (74-106); Phosphorus 2.1 mg/dL (2.5-4.9); Potassium 3.4 mmol/L (3.5-5.1); Sodium Level 140 mmol/L (136-145)
[2021-10-15] MEDS: Ipratropium/Albuterol Sulfate 3 ML AMPUL.NEB INHALATION ×3 (07:25→19:34)
[2021-10-15 08:02] LABS: Bedside Glucose 142 mg/dL (74-106)
[2021-10-15 08:02] LABS: Bedside Glucose 142 mg/dL (74-106)
[2021-10-15] MEDS: Ensure Clear 120 ML Liquid PO ×3 (08:08→17:16)
[2021-10-15] MEDS: DAKIN'S SOL HALF STRENGTH (=0.25%) 1 APPLIC TOPICAL (08:09)
--- NOTE | 2021-10-15 08:50 | PN.SURG_ITS ---
Subjective Subjective Patient seen and examined during AM rounds. He is found sitting upright in bed. He denies any complaints and states that he feels rather good. He does complain of some residual pain in his incision (particularly along the inferior aspect of it). He confirms documentation of a bowel movement overnight but states this was liquid. Objective Data Objective Data Vital Signs: Vital Signs Temp Pulse Resp BP Pulse Ox 99.3 F H 94 17 148/86 H 94 10/15/21 03:08 10/15/21 07:21 10/15/21 07:21 10/15/21 03:08 10/15/21 07:21 Oxygen Flow Rate (L/min) [At 2 REST with Oxygen] Oxygen Flow Rate (L/min) 4 Oxygen Delivery Method Room Air Weight: 247 lb 12.793 oz Body Mass Index (BMI) 29.0 Intake & Output: Intake and Output for Last 24 Hours 10/13/21 10/14/21 10/15/21 23:59 23:59 23:59 Intake Total 5367.45 / 5367.45 645 / 645 Output Total 1865 / 1865 315 / 315 Balance 3502.45 / 3502.45 330 / 330 Medical Nutrition Assessment Dietitian: Malnutrition Criteria Met Start: 10/10/21 10:28 Freq: Status: Active Protocol: Document 10/14/21 09:54 EFRAÍN (Rec: 10/14/21 09:54 EFRAÍN [id number]) Nutrition Malnutrition Evidence of Malnutrition Exists Yes Malnutrition (severe): Acute Illness/Injury Evidenced By Suboptimal Energy Intake ( Severe),Weight Loss (Severe) Intake Problem Inadequate Oral Intake Etiology related to altered GI function s/p surgery Signs/Symptoms as evidenced by NPO, estimated energy intake meeting <50% of estimated nutritional needs > 5 days Status Active Problem Clinical Problem Acute Disease or Injury Related Malnutrition Etiology severe, acute malnutrition r/t inadequate energy intake w/ increased energy needs d/t multiple abd surgeries, wound, infection Signs/Symptoms as evidenced by unintentional wt loss of 5.5% <1 month, estimated energy intake from PO diet/TPN meeting <75% of estimated energy needs >1 week Status Active Problem Recommendation Dietitian Recommendations/Changes 1) For Day #15 TPN: 2L 8%AA/14 % dextrose solution w/ MVI/ electrolytes/trace minerals and 250 ml 20% lipids to provide 2093 calories, 160 g protein/day. No insulin or famotidine per provider order. 2) Recommend advance diet as tolerated to transitional; ensure clear w/ medpass as PO diet advanced. Wean TPN as PO intake improves. 3) Daily wts. Monitoring of labs. Lab / Micro Data Result Diagrams: 10/15/21 06:20 10/15/21 06:20 Labs: Laboratory Results - last 24 hr 10/14/21 11:33: POC Glucose 145 H 10/14/21 19:28: POC Glucose 136 H 10/14/21 23:49: POC Glucose 142 H 10/15/21 05:35: POC Glucose 142 H 10/15/21 06:20: WBC 13.3 H, RBC 3.08 L, Hgb 10.0 L, Hct 28.5 L, MCV 92.5, MCH 32 .5 H, MCHC 35.1, RDW Std Deviation 50.8 H, RDW Coeff of Ar 15.4 H, Plt Count 477 H, MPV 10.2, Immature Gran % (Auto) 2.100 H, Neut % (Auto) 75.9 H, Lymph % (Auto) 10.8 L, Owsley % (Auto) 8.1, Eos % (Auto) 2.6, Baso % (Auto) 0.5, Absolute Neuts (auto) 10.1 H, Absolute Lymphs (auto) 1.43, Nucleated RBC % 0.2 10/15/21 06:20: Sodium 140, Potassium 3.4 L, Chloride 112 H, Carbon Dioxide 26.0, Anion Gap 2 L, BUN 20 H, Creatinine 0.46 L, Estim Creat Clear Calc 204.42, Est GFR (MDRD) Af Amer 236, Est GFR (MDRD) Non-Af 195, BUN/Creatinine Ratio 43.0 H, Glucose 125 H, Calcium 7.5 L, Phosphorus 2.1 L, Magnesium 2.0 Micro: Microbiology 10/09/21 Unknown Tissue - Abdominal Gram Stain - Final 10/09/21 Unknown Tissue - Abdominal Wound Culture - Final Escherichia coli 10/09/21 Unknown Tissue - Abdominal Anaerobic Culture - Preliminary Checking for anaerobes, further studies to follow. 10/07/21 07:50 Incision/Surgical Site Gram Stain - Final 10/07/21 07:50 Incision/Surgical Site Wound Culture - Final Escherichia coli 10/07/21 07:50 Incision/Surgical Site Anaerobic Culture - Final Bacteroides caccae Bacteroides thetaiotaomicron Clostridium group 09/30/21 13:05 Mario Samuel Drainage Gram Stain - Final 09/30/21 13:05 Mario Samuel Drainage Body Fluid Culture - Final Escherichia coli 09/30/21 13:05 Mario Samuel Drainage Anaerobic Culture - Final Bacteroides thetaiotaomicron Clostridium ramosum 09/29/21 05:45 Stool Ova and Parasites - Final 10/01/21 17:10 Nasal Secretion SARS-CoV-2 Antigen (Rapid) - Final 09/29/21 05:45 Stool Enteric Bacteriology - Final 09/28/21 15:40 Stool Stool Lactoferrin - Final 09/28/21 15:40 Stool C. difficile DNA Amplification - Final 09/21/21 01:18 Nasal Secretion SARS-CoV-2 Antigen (Rapid) - Final Physical Exam GI GI Narrative: Mildly distended, soft, tender to palpation about midline laparotomy which initially was covered with clean, dry dressings. Once these are taken down at the time of wound care session there is minimal serous drainage to the abdominal pad. Patient's right lower quadrant and right upper quadrant drains with largely yellow, thin serous drainage. Inspection of the patient's wound reveals some patchy pockets of fibrinous exudate, but overall the tissue is viable and there is some new granulation tissue being laid down. Approximately the level of the patient's umbilicus there is some fascial separation with contour bowel visible beneath the peritoneum. This is an approximately 5 cm expanse along the length of the patient's incision. Assessment & Plan Assessment/Plan (1) S/P laparoscopic appendectomy: PLAN: Patient required return to the OR on 09/24/2021 after pathology reported they did not identify appendix in the patient's surgical specimen from 09/21/2021. Therefore, patient is postoperative day 21 from hand-assisted laparoscopic appendectomy with drain placement. Unfortunately, patient developed evidence of a controlled perforation from the terminal ileum?per drain study 10/01/2021. He was thus n.p.o. and initiated TPN. He was then taken for open ileocecectomy on 10/02/2021 (2) Appendicitis with perforation: PLAN: Status post above operative course (3) Perforation of small intestine: PLAN: Patient postoperative day 14 from open ileocecectomy. Patient was held NPO after character of wound drainage became more malodorous and cloudy. Bedside wound exploration performed but not well tolerated. Did find evidence of necrotic fascia and patient was posted for operative exploration. Underwent re-exploratory laparotomy on 10/09/2021 with abdominal washout, drain placement, fascial debridement, and abdominal wall closure with placement of retention sutures. (4) Intra-abdominal abscess: PLAN: s/p ab washout with additional drain placement 10/09/21 (5) Postoperative wound infection: PLAN: s/p fascial debridement and ab wall closure 10/09/21 (skin left open) Patient resolved ileus with tolerance of clear liquid yesterday and moderate sized bowel movement (loose in consistency). However, he has evidence of low- grade fever and rising white count (with left shift) per labs. Wound was examined and while there is partial fascial dehiscence at the level of the umbilicus, this does not fully explain the change in the patient's labs/fever curve. Therefore, we will need to conduct work-up as to the source. Neuro: As needed Dilaudid?decreased to 0.5 mg every 3 hours as needed postoperative pain. Intermittent dose added today for wound evaluation Pulm/CV: Supplemental O2 as needed; none required over the last several days, chest x-ray given increased white count, DuoNebs every 6 hours while awake, telemetry FEN/GI: Prior hypernatremia has resolved. Persistent hypokalemia and hypophosphatemia?replacing with K-Phos 15 mmol. Hold at clear liquid diet without carbonation (plus Ensure clears) with TPN?renew TPN today (patient with severe protein calorie malnutrition as evinced by his recent albumin/prealbumin labs (10/09). Reglan as 2nd line antiemetic. : Continue application of nystatin powder to groin yeast infection. UA. Heme/ID: Hemoglobin stable. Worsening thrombocytosis (suspect reactive). White count now increased and there is a left shift present. Patient also experiencing low-grade temps. Patient is on meropenem and vancomycin given abscess and wound infection noted 10/09 per ID. Will pursue advanced imaging with CT of the abdomen pelvis using p.o. and IV contrast?timing the p.o. contrast so that there should be transit of the small bowel. Endo: Mild hyperglycemia related to TPN Proph: SCDs, resume subcu heparin every 8 hours, patient encouraged to ambulate and be up and out of bed in a chair as much as possible Dispo: Continue inpatient care Charges/Coding Visit Charges Inpatient E&M: 23862 Subs Hosp L2
[2021-10-15] MEDS: 0.9% Saline Lock 10 ML Syringe IV (09:04)
--- NOTE | 2021-10-15 11:38 | WOUNDNOTE ---
Dr Taveras and JOHN Donovan in to assess abdominal wound. Dr Taveras did remove some nonviable tissue. overall the wound appears healthier. Dakins d/c'd per order and NS wet to dry dressings are to be performed BID by Dr Taveras. states he will be in the am and pm to assess the wound.
--- NOTE | 2021-10-15 11:43 | PCM.PN.ID ---
Physical Exam Narrative Feeling better, no fever, some pain with dressing change Const alert and no apparent distress General Appearance: cooperative Resp normal air movement and clear to auscultation bilaterally Cardio regular rate and regular rhythm GI soft to palpation and non-distended GI Narrative: mild soreness Skin no rashes or lesions noted ID ID: Route of nutrition/ use of supplements: [] Nutritional Intake: [] IV Site: [] Wills Catheter: [] Assessment & Plan Assessment/Plan (1) Intra-abdominal abscess: (2) Appendicitis with perforation: PLAN: On vanc/naheed, surg cxs with medrano-S ecoli and anaerobes. Will continue with broad coverage given the complications he has had. No signs of ongoing fasciitis. Wbc a little up today but is feeling better. Total duration of abx will depend on drain output, plan is for repeat CT prior to stopping abx. Will follow, d/w Dr. Taveras (3) Postoperative wound infection:
--- NOTE | 2021-10-15 11:54 | RAD_ITS ---
INDICATION: inc white count, prolonged stay, labored breathing EXAMINATION/TECHNIQUE: X-RAY - XR Chest 1 View COMPARISON: Chest radiograph from 09/30/2021 FINDINGS/ RAD/Chest 1 View (Portable) IMPRESSION: Support devices: Stable right-sided PICC line terminating in the atrial caval junction. Low lung volumes accentuate the interstitial markings and mediastinal prominence. There are a few patchy right infrahilar opacities not seen on prior study which are questionable for developing pneumonia and/or atelectasis. The remainder of the lungs are clear with no sizable pleural effusion or pneumothorax. Heart size is stable. Bones and soft tissues are unchanged. Electronically Signed: Ramon Mckeon, at 14:52 EDT ,
--- NOTE | 2021-10-15 11:55 | CT_ITS ---
STUDY: CT ABDOMEN AND PELVIS WITH CONTRAST REASON FOR EXAM: Male, 61 years old. rising WBC in postop pt with 4 recent ab sx RADIATION DOSAGE (If Supplied By Facility): CTDIvol = ( 14.9 ) mGy, DLP = ( 1327.67 ) mGycm TECHNIQUE: Transaxial images were obtained from the dome of the diaphragm to the symphysis pubis without oral contrast. Oral and amp; IV Gastrografin and amp; 100mL Isovue-300 was administered. Sagittal and coronal images were reconstructed. Individualized dose optimization techniques were used for this CT. COMPARISON: 10/09/2021 FINDINGS: There is a moderate size right pleural effusion and a smaller effusion on the left with compressive atelectasis in the lower lobes.. Heart size is normal. There is minor coronary artery calcification. Normal liver. Normal gallbladder and extrahepatic biliary system. Normal spleen. Atrophic fatty infiltrated pancreas. Small hypoattenuated nodule in the right adrenal measuring 1.86 x 1.36 cm No evidence for right renal obstruction. There are 3 simple renal cysts. Tiny nonobstructing left renal calculus. No evidence for obstruction or mass.. There is a persistent small fluid collection within the right anterior pararenal fascia measuring 2.2 x 4.2 cm which is decreased in size since previous study. Normal visualized stomach. Normal small intestine. Normal colon. Appendix not visualized status post appendectomy Atherosclerotic changes of the aorta without evidence for aneurysm. Normal inferior vena cava. Normal retroperitoneum. Bladder demonstrates small left-sided HUTCH diverticulum There is air seen within the lower anterior abdominal wall and subcutaneous fat likely representing postsurgical changes although superimposed infection not excluded There is a surgical drain entering the right side of the abdomen extending into the pelvis. Lumbar spine demonstrates advanced spondylosis and postsurgical change. Small bilateral fat-containing inguinal hernias are noted CT/Abdomen/Pelvis WITH Contrast IMPRESSION: Moderate size right pleural effusion and smaller effusion on the left with compressive atelectasis in the lower lobes Previously noted fluid collection in the right anterior pararenal fascia has decreased in size since previous exam. No definitive evidence for acute abscess or other significant change since prior study Electronically Signed: Marvin Haque MD at 19:43 EDT ,
[2021-10-15 12:05] LABS: Bedside Glucose 132 mg/dL (74-106)
[2021-10-15 12:43] LABS: Bacteria 0 SEEN /hpf (None Seen); Mucous, Urine 0 SEEN /hpf (<or=2+); Red Blood Cells-Urine 0 SEEN /hpf (0-5); Squamous Epithelial Cells - UA 0 SEEN /hpf (0-5); White Blood Cells 0 SEEN /hpf (0-5)
[2021-10-15 12:46] LABS: Color, Urine Yellow (Yellow); Glucose, Dipstick Normal (Normal); Ketone-Dipstick Negative (Negative); Leukocyte Esterase-Dipstick Negative /ul (Negative); Nitrite-Dipstick Negative (Negative); Occult Blood-Urine 10 /ul (Negative); Protein-Dipstick Negative (Negative); Specific Gravity, Urine 1.015 (1.002-1.030); Urine Bilirubin Dipstick Negative (Negative); Urine Clarity Clear (Clear); Urine Urobilinogen Normal (Normal)
[2021-10-15] MEDS: HYDROmorphone 1 MG/ML Syringe IV (14:58)
[2021-10-15] MEDS: TPN - Clinimix E 8%-14% Soln 2,000 ML with Multivitamins 10 ML, Trace Elements 1 ML, Fo... 84 ML IV (15:59)
[2021-10-15] MEDS: 0.9% Normal Saline 1,000 ML 50 ML IV (16:05)
[2021-10-15 17:26] LABS: Bedside Glucose 143 mg/dL (74-106)
[2021-10-15 18:13] LABS: Vancomycin, Trough Level 17.6 ug/mL (5.0-15.0)
--- NOTE | 2021-10-15 19:25 | PCM.RX.CS ---
Consult Pharmacy has been consulted to manage selected antiobiotic: Vancomycin Type of Consult: Follow-up Prior Doses of Antibiotics Received/Current Regimen: current dose is 1250mg IV q8h Labs: Sodium 140 mmol/L (136-145) 10/15/21 06:20 Potassium 3.4 mmol/L (3.5-5.1) L 10/15/21 06:20 Chloride 112 mmol/L (98-107) H 10/15/21 06:20 Carbon Dioxide 26.0 mmol/L (21.0-32.0) 10/15/21 06:20 Anion Gap 2 (5-15) L 10/15/21 06:20 BUN 20 mg/dL (7-18) H 10/15/21 06:20 Creatinine 0.46 mg/dL (0.70-1.30) L 10/15/21 06:20 Est GFR (MDRD) Af Amer 236 mL/min (>60) 10/15/21 06:20 Est GFR (MDRD) Non-Af 195 mL/min (>60) 10/15/21 06:20 BUN/Creatinine Ratio 43.0 RATIO (10-20) H 10/15/21 06:20 Glucose 125 mg/dL (74-106) H 10/15/21 06:20 Vancomycin Trough 17.6 ug/mL (5.0-15.0) H 10/15/21 17:29 Microbiology: Microbiology 10/09/21 Unknown Tissue - Abdominal Gram Stain - Final 10/09/21 Unknown Tissue - Abdominal Wound Culture - Final Escherichia coli 10/09/21 Unknown Tissue - Abdominal Anaerobic Culture - Preliminary Checking for anaerobes, further studies to follow. 10/07/21 07:50 Incision/Surgical Site Gram Stain - Final 10/07/21 07:50 Incision/Surgical Site Wound Culture - Final Escherichia coli 10/07/21 07:50 Incision/Surgical Site Anaerobic Culture - Final Bacteroides caccae Bacteroides thetaiotaomicron Clostridium group 09/30/21 13:05 Mario Samuel Drainage Gram Stain - Final 09/30/21 13:05 Mario Samuel Drainage Body Fluid Culture - Final Escherichia coli 09/30/21 13:05 Mario Samuel Drainage Anaerobic Culture - Final Bacteroides thetaiotaomicron Clostridium ramosum 09/29/21 05:45 Stool Ova and Parasites - Final 10/01/21 17:10 Nasal Secretion SARS-CoV-2 Antigen (Rapid) - Final 09/29/21 05:45 Stool Enteric Bacteriology - Final 09/28/21 15:40 Stool Stool Lactoferrin - Final 09/28/21 15:40 Stool C. difficile DNA Amplification - Final 09/21/21 01:18 Nasal Secretion SARS-CoV-2 Antigen (Rapid) - Final Weight used for dosin.4 kg Estimated Creatinine Clearance: >100ml/min Goal Trough: 15-20 mcg/mL Pharmacy Plan for Drug Dosing: The vanc trough drawn at 17:29 tonight came back as 17.6 (drawn approx 7.5 hours after the previous dose). This is again within goal range so will keep dosing the same. Since it is being given q8h, will repeat at least one more trough in 48 hours again to make sure it does not go above goal. Pharmacy Service will continue to monitor and adjust dosing as required. Follow-Up Labs: Trough Vancomycin Labs to be done on [date and time ordered]: 10/17/21 17:30
[2021-10-16] VITALS (7 sets, daily range): BP systolic 133–152; BP diastolic 75–84; PULSE 79–99; RESP 18; TEMP 36.2–37; O2SAT 94–97
[2021-10-16] MEDS: HYDROmorphone 0.5 MG/0.5 ML SYRINGE IV ×7 (00:50→23:12)
[2021-10-16 01:41] LABS: Bedside Glucose 141 mg/dL (74-106)
[2021-10-16] MEDS: Menthol/Lanolin/Calamine/Znox 113 GM Tube 1 APPLIC TOPICAL ×2 (05:42→14:02)
[2021-10-16] MEDS: Heparin Injection (Vial) 5,000 UNIT/ML VIAL 5000 UNIT SC ×3 (05:42→22:50)
[2021-10-16 05:51] LABS: Bedside Glucose 135 mg/dL (74-106)
[2021-10-16 06:24] LABS: Absolute Lymphocyte Count 1.38 X10^3/uL (0.83-4.51); Absolute Neutrophil Count 7.6 X10^3/uL (2.0-7.7); Basophil# 0.08 X10^3/uL; Basophil% 0.7 % (0-1); Eosinophil# 0.36 X10^3/uL; Eosinophils% 3.4 % (0-5); Hematocrit 28.4 % (40-54); Hemoglobin 9.7 g/dL (13.0-16.5); Lymphocyte # 1.38 X10^3/ul (0.83-4.51); Lymphocyte % 12.9 % (19-41); Mean Corp Hgb Conc 34.2 g/dL (32-36); Mean Corpuscular Hgb 32.1 pg (27.0-32.0); Mean Platelet Vol. 9.9 fl (6.2-12.0); Monocyte% 9.4 % (0-10); NRBC Flagged by Analyzer 0 % (0-5); Neutrophil # 7.62 X10^3/uL (2.7-7.7); Neutrophil % 71.3 % (47-70); Platelet Count 481 K/mm3 (150-450); RBC Distribution Width CV 15.4 % (11.6-14.6); RBC Distribution Width SD 52.5 fl (35.1-43.9); Red Blood Count 3.02 M/mm3 (4.6-6.2); White Blood Count 10.7 K/mm3 (4.4-11.0)
[2021-10-16 06:51] LABS: Anion Gap 4 (5-15); BUN 15 mg/dL (7-18); BUN/Creat Ratio 36.1 RATIO (10-20); Calcium,Total 7.5 mg/dL (8.5-10.1); Chloride 110 mmol/L (98-107); Creatinine, Serum 0.42 mg/dL (0.70-1.30); EST Glomerular Filtration Rate 221 mL/min (>60); Est Glom Filt Rate - Afr Amer 268 mL/min (>60); Estimated Creatinine Clearance 223.89 ml/min; Glucose 132 mg/dL (74-106); Magnesium 2.1 mg/dL (1.6-2.6); Phosphorus 2.4 mg/dL (2.5-4.9); Potassium 3.7 mmol/L (3.5-5.1); Sodium Level 140 mmol/L (136-145)
[2021-10-16] MEDS: Ipratropium/Albuterol Sulfate 3 ML AMPUL.NEB INHALATION ×3 (07:38→19:32)
[2021-10-16] MEDS: 0.9% Saline Lock 10 ML Syringe IV ×7 (07:39→23:12)
[2021-10-16] MEDS: Furosemide 20 MG/2 ML VIAL IV (09:23)
[2021-10-16] MEDS: Ensure Clear 120 ML Liquid PO ×4 (09:24→22:46)
--- NOTE | 2021-10-16 09:59 | PCM.PN.SRG ---
Subjective Subjective Patient was seen and examined during AM rounds. He reports an uneventful overnight course. His abdominal pain is improved. He had several bowel movements overnight, and was made n.p.o. in anticipation of possible procedure this morning. Objective Data Objective Data Vital Signs: Vital Signs Temp Pulse Resp BP Pulse Ox 97.1 F L 95 18 152/83 H 95 10/16/21 07:43 10/16/21 07:43 10/16/21 07:43 10/16/21 07:43 10/16/21 07:43 Oxygen Flow Rate (L/min) [At 2 REST with Oxygen] Oxygen Flow Rate (L/min) 4 Oxygen Delivery Method Room Air Weight: 247 lb 2.211 oz Body Mass Index (BMI) 29.0 Intake & Output: Intake and Output for Last 24 Hours 10/14/21 10/15/21 10/16/21 23:59 23:59 23:59 Intake Total 5367.45 / 5367.45 5344.20 / 5344.20 515 / 515 Output Total 1865 / 1865 2138 / 2138 Balance 3502.45 / 3502.45 3206.20 / 3206.20 515 / 515 Medical Nutrition Assessment Dietitian: Malnutrition Criteria Met Start: 10/10/21 10:28 Freq: Status: Active Protocol: Document 10/15/21 11:05 (Rec: 10/15/21 11:05 [id number]) Nutrition Malnutrition Evidence of Malnutrition Exists Yes Malnutrition (severe): Acute Illness/Injury Evidenced By Suboptimal Energy Intake ( Severe),Weight Loss (Severe) Intake Problem Inadequate Oral Intake Etiology related to altered GI function s/p surgery Signs/Symptoms as evidenced by NPO, estimated energy intake meeting <50% of estimated nutritional needs > 5 days Status Active Problem Clinical Problem Acute Disease or Injury Related Malnutrition Etiology severe, acute malnutrition r/t inadequate energy intake w/ increased energy needs d/t multiple abd surgeries, wound, infection Signs/Symptoms as evidenced by unintentional wt loss of 17.9#/7.1% <1 month , estimated energy intake from PO diet/TPN meeting <75% of estimated energy needs >1 week Status Active Problem Recommendation Dietitian Recommendations/Changes 1) For Day #16 TPN: 2L 8%AA/14 % dextrose solution w/ MVI/ electrolytes/trace minerals to provide 1593 calories, 160 g protein/day. No insulin or famotidine per provider order. 2) Recommend advance diet as tolerated to transitional; continue ensure clear TID as PO diet advanced. Wean TPN as PO intake improves. 3) Daily wts. Monitoring of labs. Lab / Micro Data Result Diagrams: 10/16/21 06:15 10/16/21 06:15 Labs: Laboratory Results - last 24 hr 10/15/21 12:00: POC Glucose 132 H 10/15/21 12:30: Urine Color Yellow, Urine Clarity Clear, Urine pH 5.0, Ur Specific [place] 1.015, Urine Protein Negative, Urine Glucose (UA) Normal, Urine Ketones Negative, Urine Occult Blood 10 H, Urine Nitrite Negative, Urine Bilirubin Negative, Urine Urobilinogen Normal, Ur Leukocyte Esterase Negative, Urine RBC 0 SEEN, Urine WBC 0 SEEN, Ur Squamous Epith Cells 0 SEEN, Urine Bacteria 0 SEEN, Urine Mucus 0 SEEN 10/15/21 17:13: POC Glucose 143 H 10/15/21 17:29: Vancomycin Trough 17.6 H 10/16/21 00:49: POC Glucose 141 H 10/16/21 05:38: POC Glucose 135 H 10/16/21 06:15: WBC 10.7, RBC 3.02 L, Hgb 9.7 L, Hct 28.4 L, MCV 94.0, MCH 32.1 H, MCHC 34.2, RDW Std Deviation 52.5 H, RDW Coeff of Ar 15.4 H, Plt Count 481 H, MPV 9.9, Immature Gran % (Auto) 2.300 H, Neut % (Auto) 71.3 H, Lymph % (Auto) 12.9 L, [place] % (Auto) 9.4, Eos % (Auto) 3.4, Baso % (Auto) 0.7, Absolute Neuts (auto) 7.6, Absolute Lymphs (auto) 1.38, Nucleated RBC % 0 10/16/21 06:15: Sodium 140, Potassium 3.7, Chloride 110 H, Carbon Dioxide 26.0, Anion Gap 4 L, BUN 15, Creatinine 0.42 L, Estim Creat Clear Calc 223.89, Est GFR (MDRD) Af Amer 268, Est GFR (MDRD) Non-Af 221, BUN/Creatinine Ratio 36.1 H, Glucose 132 H, Calcium 7.5 L, Phosphorus 2.4 L, Magnesium 2.1 Micro: Microbiology 10/09/21 Unknown Tissue - Abdominal Gram Stain - Final 10/09/21 Unknown Tissue - Abdominal Wound Culture - Final Escherichia coli 10/09/21 Unknown Tissue - Abdominal Anaerobic Culture - Preliminary Checking for anaerobes, further studies to follow. 10/07/21 07:50 Incision/Surgical Site Gram Stain - Final 10/07/21 07:50 Incision/Surgical Site Wound Culture - Final Escherichia coli 10/07/21 07:50 Incision/Surgical Site Anaerobic Culture - Final Bacteroides caccae Bacteroides thetaiotaomicron Clostridium group 09/30/21 13:05 Mario Samuel Drainage Gram Stain - Final 09/30/21 13:05 Mario Samuel Drainage Body Fluid Culture - Final Escherichia coli 09/30/21 13:05 Mario Samuel Drainage Anaerobic Culture - Final Bacteroides thetaiotaomicron Clostridium ramosum 09/29/21 05:45 Stool Ova and Parasites - Final 10/01/21 17:10 Nasal Secretion SARS-CoV-2 Antigen (Rapid) - Final 09/29/21 05:45 Stool Enteric Bacteriology - Final 09/28/21 15:40 Stool Stool Lactoferrin - Final 09/28/21 15:40 Stool C. difficile DNA Amplification - Final 09/21/21 01:18 Nasal Secretion SARS-CoV-2 Antigen (Rapid) - Final Radiography Diagnostic Testing: Radiology Impression Chest X-Ray 10/15/21 11:54 IMPRESSION: Support devices: Stable right-sided PICC line terminating in the atrial caval junction. Low lung volumes accentuate the interstitial markings and mediastinal prominence. There are a few patchy right infrahilar opacities not seen on prior study which are questionable for developing pneumonia and/or atelectasis. The remainder of the lungs are clear with no sizable pleural effusion or pneumothorax. Heart size is stable. Bones and soft tissues are unchanged. Electronically Signed: Ramon Mckeon, at 14:52 EDT , Abdomen/Pelvis CT 10/15/21 11:55 IMPRESSION: Moderate size right pleural effusion and smaller effusion on the left with compressive atelectasis in the lower lobes Previously noted fluid collection in the right anterior pararenal fascia has decreased in size since previous exam. No definitive evidence for acute abscess or other significant change since prior study Electronically Signed: Marvin Haque MD at 19:43 EDT , Physical Exam Const oriented x3 and no apparent distress GI GI Narrative: Nondistended, soft, laparotomy site with saturated (serosanguineous drainage) abdominal pads. Largely nontender to palpation. Right-sided drains with some debris and straw-colored peritoneal fluid draining through Assessment & Plan Assessment/Plan (1) S/P laparoscopic appendectomy: PLAN: Patient required return to the OR on 09/24/2021 after pathology reported they did not identify appendix in the patient's surgical specimen from 09/21/2021. Therefore, patient is postoperative day 22 from hand-assisted laparoscopic appendectomy with drain placement. Unfortunately, patient developed evidence of a controlled perforation from the terminal ileum?per drain study 10/01/2021. He was thus n.p.o. and initiated TPN. He was then taken for open ileocecectomy on 10/02/2021 (2) Appendicitis with perforation: PLAN: Status post above operative course (3) Perforation of small intestine: PLAN: Patient postoperative day 15 from open ileocecectomy. Patient was held NPO after character of wound drainage became more malodorous and cloudy. Bedside wound exploration performed but not well tolerated. Did find evidence of necrotic fascia and patient was posted for operative exploration. Underwent re-exploratory laparotomy on 10/09/2021 with abdominal washout, drain placement, fascial debridement, and abdominal wall closure with placement of retention sutures. (4) Intra-abdominal abscess: PLAN: s/p ab washout with additional drain placement 10/09/21 (5) Postoperative wound infection: PLAN: s/p fascial debridement and ab wall closure 10/09/21 (skin left open) On the observation of some low-grade fevers and white count with left shift, patient underwent CT scan of the abdomen pelvis yesterday with p.o. and IV contrast. There are findings of bilateral pleural effusions as well as a small (2 cm x 4 cm) fluid collection in the right upper quadrant just out of the reach of one of our surgical drains. Patient was made n.p.o. in anticipation of possible percutaneous drainage procedure. After conversations with radiology, however, they stated that the approach was there but did not feel confident they could leave a drain. Wound was examined both yesterday and today and there is partial fascial dehiscence at the level of the umbilicus, but otherwise the wound is clean and viable without evidence of ongoing infection. Neuro: As needed Dilaudid?decreased to 0.5 mg every 3 hours as needed postoperative pain. Pulm/CV: Supplemental O2 as needed; none required over the last several days, chest x-ray showed some evidence of possible consolidation but CT found moderate right-sided pleural effusion?we will provide a dose of Lasix 20 mg x 1 today, DuoNebs every 6 hours while awake, telemetry FEN/GI: Prior hypernatremia has resolved. Persistent hypophosphatemia?replacing again with K-Phos 15 mmol. Reinitiate clear liquid diet without carbonation (plus Ensure clears) with TPN?renew TPN today (patient with severe protein calorie malnutrition as evinced by his recent albumin/prealbumin labs (10/09). Reglan as 2nd line antiemetic. : Continue application of nystatin powder to groin yeast infection. UA negative yesterday (10/15/2021). Heme/ID: Hemoglobin stable. Worsening thrombocytosis (suspect reactive). White count now normalized without significant clinical intervention. Patient no longer experiencing low-grade temps. Patient is on meropenem and vancomycin given abscess and wound infection noted 10/09 per ID. Given the improvements in the patient's fever curve and white count?seemingly spontaneous?as well as hesitancy by radiology to be able to leave a drain, will hold off percutaneous drain placement today. Endo: Mild hyperglycemia related to TPN Proph: SCDs, resume subcu heparin every 8 hours, patient encouraged to ambulate and be up and out of bed in a chair as much as possible Dispo: Continue inpatient care
--- NOTE | 2021-10-16 12:17 | PCM.PN.ID ---
Physical Exam Narrative Feeling better, pain improved, no fever Const alert and no apparent distress General Appearance: cooperative Resp clear to auscultation bilaterally Resp Narrative: dull in R base Cardio regular rate and regular rhythm GI soft to palpation, non-tender and non-distended Skin no rashes or lesions noted ID ID: Route of nutrition/ use of supplements: [] Nutritional Intake: [] IV Site: [] Wills Catheter: [] Assessment & Plan Assessment/Plan (1) Intra-abdominal abscess: (2) Appendicitis with perforation: PLAN: On vanc/naheed, surg cxs with medrano-S ecoli and anaerobes. Will continue with broad coverage given the complications he has had. No signs of ongoing fasciitis. Wbc normalized and is feeling better. Total duration of abx will depend on drain outpu. CT showed improvement in fluid collection. Will follow (3) Postoperative wound infection:
[2021-10-16 12:26] LABS: Bedside Glucose 156 mg/dL (74-106)
[2021-10-16] MEDS: 0.9% Normal Saline 1,000 ML 50 ML IV (13:06)
[2021-10-16] MEDS: TPN - Clinimix E 8%-14% Soln 2,000 ML with Multivitamins 10 ML, Trace Elements 1 ML, Fo... 84 ML IV (15:32)
[2021-10-16] MEDS: Fat Emulsions 20% 250 ML IV (15:33)
[2021-10-16 17:35] LABS: Bedside Glucose 119 mg/dL (74-106)
[2021-10-17] VITALS (7 sets, daily range): BP systolic 122–149; BP diastolic 63–85; PULSE 88–99; RESP 18–20; TEMP 36.3–36.9; O2SAT 92–97
[2021-10-17] MEDS: 0.9% Saline Lock 10 ML Syringe IV ×3 (02:05→19:47)
[2021-10-17] MEDS: HYDROmorphone 0.5 MG/0.5 ML SYRINGE IV ×6 (02:14→19:48)
[2021-10-17] MEDS: Heparin Injection (Vial) 5,000 UNIT/ML VIAL 5000 UNIT SC ×3 (05:43→21:37)
[2021-10-17 05:51] LABS: Bedside Glucose 127 mg/dL (74-106)
[2021-10-17 06:30] LABS: Absolute Lymphocyte Count 1.37 X10^3/uL (0.83-4.51); Absolute Neutrophil Count 6.5 X10^3/uL (2.0-7.7); Basophil# 0.06 X10^3/uL; Basophil% 0.6 % (0-1); Eosinophil# 0.43 X10^3/uL; Eosinophils% 4.5 % (0-5); Hematocrit 27.5 % (40-54); Hemoglobin 9.1 g/dL (13.0-16.5); Lymphocyte # 1.37 X10^3/ul (0.83-4.51); Lymphocyte % 14.3 % (19-41); Mean Corp Hgb Conc 33.1 g/dL (32-36); Mean Corpuscular Hgb 31.3 pg (27.0-32.0); Mean Corpuscular Volume 94.5 fL (80-94); Mean Platelet Vol. 10.1 fl (6.2-12.0); Monocyte# 0.93 X10^3/uL; Monocyte% 9.7 % (0-10); NRBC Flagged by Analyzer 0 % (0-5); Neutrophil # 6.52 X10^3/uL (2.7-7.7); Neutrophil % 68.4 % (47-70); Platelet Count 485 K/mm3 (150-450); RBC Distribution Width CV 15.6 % (11.6-14.6); RBC Distribution Width SD 54.7 fl (35.1-43.9); Red Blood Count 2.91 M/mm3 (4.6-6.2); White Blood Count 9.6 K/mm3 (4.4-11.0)
[2021-10-17 06:58] LABS: ALB/GLOB Ratio 0.4 RATIO (0.9-2.4); AST(SGOT) 29 U/L (15-37); Alanine Aminotransfer ALT/SGPT 39 U/L (16-61); Albumin, Serum 1.6 g/dL (3.2-5.0); Alkaline Phosphatase 129 U/L (45-117); Anion Gap 4 (5-15); BUN 17 mg/dL (7-18); Calcium,Total 7.6 mg/dL (8.5-10.1); Chloride 110 mmol/L (98-107); Creatinine, Serum 0.47 mg/dL (0.70-1.30); EST Glomerular Filtration Rate 191 mL/min (>60); Est Glom Filt Rate - Afr Amer 232 mL/min (>60); Estimated Creatinine Clearance 200.07 ml/min; Glucose 124 mg/dL (74-106); Phosphorus 2.6 mg/dL (2.5-4.9); Potassium 3.4 mmol/L (3.5-5.1); Protein, Total 5.6 g/dL (6.4-8.2); Sodium Level 140 mmol/L (136-145)
[2021-10-17] MEDS: Ipratropium/Albuterol Sulfate 3 ML AMPUL.NEB INHALATION ×3 (07:09→19:50)
--- NOTE | 2021-10-17 07:30 | PN.SURG_ITS ---
Subjective Subjective Patient seen and examined during AM rounds. He is reports feeling quite well. He denies any abdominal pain. Tolerated advancement to his full liquid diet without issue. Patient revisited later in the morning after nursing reported patient feeling discouraged and for a pointed dressing change. Patient states that he wishes to go home and have day passes out of the hospital. Objective Data Objective Data Vital Signs: Vital Signs Temp Pulse Resp BP Pulse Ox 97.4 F L 92 20 H 137/85 H 94 10/17/21 02:00 10/17/21 07:10 10/17/21 07:10 10/17/21 02:00 10/17/21 07:10 Oxygen Flow Rate (L/min) [At 2 REST with Oxygen] Oxygen Flow Rate (L/min) 4 Oxygen Delivery Method Room Air Weight: 248 lb 0.321 oz Body Mass Index (BMI) 29.0 Intake & Output: Intake and Output for Last 24 Hours 10/15/21 10/16/21 10/17/21 23:59 23:59 23:59 Intake Total 5344.20 / 5344.20 5052.13 / 5052.13 1825.2 / 1825.2 Output Total 2138 / 2138 2398 / 2798 1300 / 1300 Balance 3206.20 / 3206.20 2654.13 / 2254.13 525.2 / 525.2 Medical Nutrition Assessment Dietitian: Malnutrition Criteria Met Start: 10/10/21 10:28 Freq: Status: Active Protocol: Document 10/16/21 11:54 AG (Rec: 10/16/21 11:54 AG [id number]) Nutrition Malnutrition Evidence of Malnutrition Exists Yes Malnutrition (severe): Acute Illness/Injury Evidenced By Suboptimal Energy Intake ( Severe),Weight Loss (Severe) Intake Problem Inadequate Oral Intake Etiology related to altered GI function s/p surgery Signs/Symptoms as evidenced by NPO, estimated energy intake meeting <50% of estimated nutritional needs > 5 days Status Active Problem Clinical Problem Acute Disease or Injury Related Malnutrition Etiology severe, acute malnutrition r/t inadequate energy intake w/ increased energy needs d/t multiple abd surgeries, wound, infection Signs/Symptoms as evidenced by unintentional wt loss of 17.9#/7.1% <1 month , estimated energy intake from PO diet/TPN meeting <75% of estimated energy needs >1 week Status Active Problem Recommendation Dietitian Recommendations/Changes 1) For Day #17 TPN: 2L 8%AA/14 % dextrose solution w/ MVI/ electrolytes/trace minerals and 250 mL 20% lipid solution to provide 2093 calories, 160 g protein/day. No insulin or famotidine per provider order. 2) Recommend advance diet as tolerated to transitional; continue ensure clear 120mL 4x /day as PO diet advanced. Wean TPN as PO intake improves. 3) Daily wts. Monitoring of labs. Lab / Micro Data Result Diagrams: 10/17/21 06:13 10/17/21 06:13 Labs: Laboratory Results - last 24 hr 10/16/21 12:04: POC Glucose 156 H 10/16/21 17:29: POC Glucose 119 H 10/17/21 05:32: POC Glucose 127 H 10/17/21 06:13: WBC 9.6, RBC 2.91 L, Hgb 9.1 L, Hct 27.5 L, MCV 94.5 H, MCH 31.3, MCHC 33.1, RDW Std Deviation 54.7 H, RDW Coeff of Ar 15.6 H, Plt Count 485 H, MPV 10.1, Immature Gran % (Auto) 2.500 H, Neut % (Auto) 68.4, Lymph % (Auto) 14.3 L, [place] % (Auto) 9.7, Eos % (Auto) 4.5, Baso % (Auto) 0.6, Absolute Neuts (auto) 6.5, Absolute Lymphs (auto) 1.37, Nucleated RBC % 0 10/17/21 06:13: Sodium 140, Potassium 3.4 L, Chloride 110 H, Carbon Dioxide 26.0, Anion Gap 4 L, BUN 17, Creatinine 0.47 L, Estim Creat Clear Calc 200.07, Est GFR (MDRD) Af Amer 232, Est GFR (MDRD) Non-Af 191, BUN/Creatinine Ratio 36.0 H, Glucose 124 H, Calcium 7.6 L, Phosphorus 2.6, Magnesium 2.0, Total Bilirubin 0.40, AST 29, ALT 39, Alkaline Phosphatase 129 H, Total Protein 5.6 L, Albumin 1.6 L, Globulin 4.0, Albumin/Globulin Ratio 0.4 L Micro: Microbiology 10/09/21 Unknown Tissue - Abdominal Gram Stain - Final 10/09/21 Unknown Tissue - Abdominal Wound Culture - Final Escherichia coli 10/09/21 Unknown Tissue - Abdominal Anaerobic Culture - Preliminary Checking for anaerobes, further studies to follow. 10/07/21 07:50 Incision/Surgical Site Gram Stain - Final 10/07/21 07:50 Incision/Surgical Site Wound Culture - Final Escherichia coli 10/07/21 07:50 Incision/Surgical Site Anaerobic Culture - Final Bacteroides caccae Bacteroides thetaiotaomicron Clostridium group 09/30/21 13:05 Mario Samuel Drainage Gram Stain - Final 09/30/21 13:05 Mario Samuel Drainage Body Fluid Culture - Final Escherichia coli 09/30/21 13:05 Mario Samuel Drainage Anaerobic Culture - Final Bacteroides thetaiotaomicron Clostridium ramosum 09/29/21 05:45 Stool Ova and Parasites - Final 10/01/21 17:10 Nasal Secretion SARS-CoV-2 Antigen (Rapid) - Final 09/29/21 05:45 Stool Enteric Bacteriology - Final 09/28/21 15:40 Stool Stool Lactoferrin - Final 09/28/21 15:40 Stool C. difficile DNA Amplification - Final 09/21/21 01:18 Nasal Secretion SARS-CoV-2 Antigen (Rapid) - Final Physical Exam Const oriented x3 and no apparent distress Resp normal respiratory effort GI GI Narrative: Nondistended, soft, appropriately tender about laparotomy site. Some thin edward?brown drainage of right upper quadrant drain. Right lower quadrant drain with thin serous drainage. Slight blistering of the skin near retention suture second from the bottom. Patient's wound with some mild amount of fibrinous exudate towards the inferior aspect of the wound, otherwise granula ting with healthy tissue. Assessment & Plan Assessment/Plan (1) S/P laparoscopic appendectomy: PLAN: Patient required return to the OR on 09/24/2021 after pathology reported they did not identify appendix in the patient's surgical specimen from 09/21/2021. Therefore, patient is postoperative day 22 from hand-assisted laparoscopic appendectomy with drain placement. Unfortunately, patient developed evidence of a controlled perforation from the terminal ileum?per drain study 10/01/2021. He was thus n.p.o. and initiated TPN. He was then taken for open ileocecectomy on 10/02/2021 (2) Appendicitis with perforation: PLAN: Status post above operative course (3) Perforation of small intestine: PLAN: Patient postoperative day 16 from open ileocecectomy. Patient was held NPO after character of wound drainage became more malodorous and cloudy. Bedside wound exploration performed but not well tolerated. Did find evidence of necrotic fascia and patient was posted for operative exploration. Underwent re-exploratory laparotomy on 10/09/2021 with abdominal washout, drain placement, fascial debridement, and abdominal wall closure with placement of retention sutures. (4) Intra-abdominal abscess: PLAN: s/p ab washout with additional drain placement 10/09/21 (5) Postoperative wound infection: PLAN: s/p fascial debridement and ab wall closure 10/09/21 (skin left open) Patient remains afebrile with normal white count. Tolerated diet advance to full liquids yesterday. Continues to have ongoing bowel function. Drain outputs remain minimal. Some cloudy output from right upper quadrant drain. Overall, healing appearance to patient's laparotomy wound with no further signs of infection. Performed a limited curettage of some fibrinous tissue lateral to the patient's fascia today. KELLY drain (designated drain 1) was removed today. Patient struggling with seemingly slow progress in his recovery and wishes to be dismissed. We discussed the necessary steps to get him home. For the interim, we will look to get him outside in a wheelchair today. Neuro: As needed Dilaudid?decreased to 0.5 mg every 3 hours as needed postope rative pain. Pulm/CV: Supplemental O2 as needed; currently on room air, DuoNebs every 6 hours while awake, telemetry FEN/GI: Prior hypernatremia has resolved. Hypophosphatemia now resolved. Hypokalemia today we will replace orally with potassium chloride 40 M EQ's. Patient was advanced to full liquid diet 10/16/2021 we will add Ensure Enlive today. Renew TPN today (patient with severe protein calorie malnutrition as evinced by his recent albumin. Reglan as 2nd line antiemetic. : Continue application of nystatin powder to groin yeast infection. UA negative (10/15/2021). Heme/ID: Hemoglobin slightly down trended. Worsening thrombocytosis but plateauing (suspect reactive). White count remains within normal limits. Patient no longer experiencing low-grade temps. Patient is on meropenem and vancomycin given abscess and wound infection noted 10/09 per ID. Continue to follow clinically Endo: Mild hyperglycemia related to TPN Proph: SCDs, resume subcu heparin every 8 hours, patient encouraged to ambulate and be up and out of bed in a chair as much as possible Dispo: Continue inpatient care but requesting assistance from case management for evaluating patient's placement options for ongoing wound care needs Charges/Coding Visit Charges Inpatient E&M: 65026 Subs Hosp L2
[2021-10-17] MEDS: oxyCODONE 5 MG Tablet PO ×3 (09:19→21:38)
--- NOTE | 2021-10-17 10:03 | PCM.PN.ID ---
Physical Exam Narrative Feeling about the same. Is frustrated. No fever. Const alert and no apparent distress General Appearance: cooperative Resp clear to auscultation bilaterally Cardio regular rate and regular rhythm GI soft to palpation, non-tender and non-distended Skin no rashes or lesions noted ID ID: Route of nutrition/ use of supplements: [] Nutritional Intake: [] IV Site: [] Wills Catheter: [] Assessment & Plan Assessment/Plan (1) Intra-abdominal abscess: (2) Appendicitis with perforation: PLAN: On vanc/naheed since 10/11, surg cxs with medrano-S ecoli and anaerobes. Last surgery was 10/09. Will continue with broad coverage given the complications he has had. No signs of ongoing fasciitis. Wbc normalized and is feeling better. Total duration of abx will depend on drain output, plan at least 7-[address] showed improvement in fluid collection. Will follow (3) Postoperative wound infection:
[2021-10-17] MEDS: 0.9% Normal Saline 1,000 ML 50 ML IV (11:30)
[2021-10-17] MEDS: Furosemide 20 MG/2 ML VIAL IV (11:31)
[2021-10-17] MEDS: Potassium Chloride Oral Tablet 20 MEQ 40 MEQ PO (11:31)
[2021-10-17 12:51] LABS: Bedside Glucose 141 mg/dL (74-106)
--- NOTE | 2021-10-17 15:45 | CHAPLAIN ---
Type of Pastoral Visit ___ Initial Visit _x__ Follow-up Visit ___ On-call Visit ___ General Patient Visit ___ Spiritual Assessment ___ Family Conference ___ Bereavement ___ Rapid Response ___ Code Blue ___ Other (describe below) Pastoral Care Referral From _x__ Patient ___ Family _x__ Nurse ___ Physician ___ Ortho Nurse ___ Food Science Technician ___ Other (describe below) Sacrament/Intervention _x__ Active listening ___ Anointing ___ Orthodoxy ___ Bereavement ___ Communion ___ Angelica exploration ___ _x__ Life review _x__ Prayer ___ Reconciliation ___ Sacrament of Sick _x__ Supportive presence ___ Wedding ___ Other (describe below) Pastoral Comments RN called to say patient requested visit from this tug boat captain; pt expresses his discouragement and disappointment at his 'inability to get better sooner for the doctor'; explored his disappointments; offered listening ear and support; patient talked openly and then stated that I just need to cry and thank you for listening to me; encouraged patient to give himself a break emotionally and to rely on his angelica in God to support him now; prayer requested and given
[2021-10-17] MEDS: TPN - Clinimix E 8%-14% Soln 2,000 ML with Multivitamins 10 ML, Trace Elements 1 ML, Fo... 63 ML IV (16:17)
--- NOTE | 2021-10-17 16:57 | CASEMGMT ---
Social Work JOHN Granado informing worker that pt may likely need short term SNF at discharge due to medical complications and physical debility. SW met with pt and and discussed discharge plan including home with home health and SNF placement. SW provided List for SNF providers including quality and resource use data and [facility], [facility] needs and insurance network. Pt and will consider options. SW will followup with pt. Pt also requesting to complete HCPOA. SW assisted pt in completing this document. Pt naming his Briana Martin. Original given to pt and copy placed on chart. Pt choosing not to complete living will at this time. YASMEEN Martin
[2021-10-17 18:51] LABS: Bedside Glucose 144 mg/dL (74-106)
[2021-10-17 19:18] LABS: Vancomycin, Trough Level 21.4 ug/mL (5.0-15.0)
--- NOTE | 2021-10-17 19:48 | PHA.PHARE_ITS ---
Consult Pharmacy has been consulted to manage selected antiobiotic: Vancomycin Type of Consult: Follow-up Suspected Infection: Skin/Soft tissue Prior Doses of Antibiotics Received/Current Regimen: Has been on 1250mg iv q8h. Labs: Sodium 140 mmol/L (136-145) 10/17/21 06:13 Potassium 3.4 mmol/L (3.5-5.1) L 10/17/21 06:13 Chloride 110 mmol/L (98-107) H 10/17/21 06:13 Carbon Dioxide 26.0 mmol/L (21.0-32.0) 10/17/21 06:13 Anion Gap 4 (5-15) L 10/17/21 06:13 BUN 17 mg/dL (7-18) 10/17/21 06:13 Creatinine 0.47 mg/dL (0.70-1.30) L 10/17/21 06:13 Est GFR (MDRD) Af Amer 232 mL/min (>60) 10/17/21 06:13 Est GFR (MDRD) Non-Af 191 mL/min (>60) 10/17/21 06:13 BUN/Creatinine Ratio 36.0 RATIO (10-20) H 10/17/21 06:13 Glucose 124 mg/dL (74-106) H 10/17/21 06:13 Vancomycin Trough 21.4 ug/mL (5.0-15.0) H 10/17/21 17:27 Microbiology: Microbiology 10/09/21 Unknown Tissue - Abdominal Gram Stain - Final 10/09/21 Unknown Tissue - Abdominal Wound Culture - Final Escherichia coli 10/09/21 Unknown Tissue - Abdominal Anaerobic Culture - Final Prevotella melaninogenica Bacteroides thetaiotaomicron Anaerobic cocci 10/07/21 07:50 Incision/Surgical Site Gram Stain - Final 10/07/21 07:50 Incision/Surgical Site Wound Culture - Final Escherichia coli 10/07/21 07:50 Incision/Surgical Site Anaerobic Culture - Final Bacteroides caccae Bacteroides thetaiotaomicron Clostridium group 09/30/21 13:05 Mario Samuel Drainage Gram Stain - Final 09/30/21 13:05 Mario Samuel Drainage Body Fluid Culture - Final Escherichia coli 09/30/21 13:05 Mario Samuel Drainage Anaerobic Culture - Final Bacteroides thetaiotaomicron Clostridium ramosum 09/29/21 05:45 Stool Ova and Parasites - Final 10/01/21 17:10 Nasal Secretion SARS-CoV-2 Antigen (Rapid) - Final 09/29/21 05:45 Stool Enteric Bacteriology - Final 09/28/21 15:40 Stool Stool Lactoferrin - Final 09/28/21 15:40 Stool C. difficile DNA Amplification - Final 09/21/21 01:18 Nasal Secretion SARS-CoV-2 Antigen (Rapid) - Final Weight used for dosin kg Estimated Creatinine Clearance: >100ml/min Goal Trough: 15-20 mcg/mL Pharmacy Plan for Drug Dosing: Trough this PM was 21.4 (drawn ~6 hrs post last dose). Goal range is 15- 20mcg/ml.Trough level may not be completely accurate since not a level 7.5hrs post last dose. Current dose stopped for now. Random level ordered for AM 3..22. Pharmacy Service will continue to monitor and adjust dosing as required. Follow-Up Labs: Trough Vancomycin - random level . @0600
[2021-10-17 22:05] LABS: Bedside Glucose 145 mg/dL (74-106)
[2021-10-18] VITALS (7 sets, daily range): BP systolic 124–145; BP diastolic 68–82; PULSE 87–97; RESP 16–20; TEMP 36.3–37; O2SAT 93–98
[2021-10-18] MEDS: 0.9% Saline Lock 10 ML Syringe IV ×2 (00:06→03:10)
[2021-10-18] MEDS: HYDROmorphone 0.5 MG/0.5 ML SYRINGE IV ×3 (00:06→09:47)
[2021-10-18] MEDS: oxyCODONE 5 MG Tablet PO ×3 (04:54→20:11)
[2021-10-18] MEDS: Heparin Injection (Vial) 5,000 UNIT/ML VIAL 5000 UNIT SC ×3 (05:01→20:12)
[2021-10-18 05:16] LABS: Bedside Glucose 130 mg/dL (74-106)
[2021-10-18] MEDS: Ipratropium/Albuterol Sulfate 3 ML AMPUL.NEB INHALATION ×2 (06:44→13:22)
[2021-10-18 06:53] LABS: Absolute Lymphocyte Count 1.23 X10^3/uL (0.83-4.51); Absolute Neutrophil Count 7.2 X10^3/uL (2.0-7.7); Basophil# 0.08 X10^3/uL; Basophil% 0.8 % (0-1); Eosinophil# 0.33 X10^3/uL; Eosinophils% 3.3 % (0-5); Hematocrit 27.4 % (40-54); Lymphocyte # 1.23 X10^3/ul (0.83-4.51); Lymphocyte % 12.3 % (19-41); Mean Corp Hgb Conc 32.8 g/dL (32-36); Mean Corpuscular Hgb 30.7 pg (27.0-32.0); Mean Corpuscular Volume 93.5 fL (80-94); Mean Platelet Vol. 9.9 fl (6.2-12.0); Monocyte# 1.02 X10^3/uL; Monocyte% 10.2 % (0-10); NRBC Flagged by Analyzer 0 % (0-5); Neutrophil # 7.22 X10^3/uL (2.7-7.7); Neutrophil % 72.1 % (47-70); Platelet Count 510 K/mm3 (150-450); RBC Distribution Width CV 15.4 % (11.6-14.6); Red Blood Count 2.93 M/mm3 (4.6-6.2)
[2021-10-18 07:14] LABS: Vancomycin, Random Level 13.1 ug/mL (0.0-15.0)
[2021-10-18 07:18] LABS: ALB/GLOB Ratio 0.4 RATIO (0.9-2.4); AST(SGOT) 31 U/L (15-37); Alanine Aminotransfer ALT/SGPT 39 U/L (16-61); Albumin, Serum 1.6 g/dL (3.2-5.0); Alkaline Phosphatase 135 U/L (45-117); Anion Gap 3 (5-15); BUN 17 mg/dL (7-18); BUN/Creat Ratio 35.1 RATIO (10-20); Calcium,Total 7.9 mg/dL (8.5-10.1); Chloride 111 mmol/L (98-107); Creatinine, Serum 0.48 mg/dL (0.70-1.30); EST Glomerular Filtration Rate 185 mL/min (>60); Est Glom Filt Rate - Afr Amer 224 mL/min (>60); Glucose 120 mg/dL (74-106); Magnesium 1.9 mg/dL (1.6-2.6); Phosphorus 2.2 mg/dL (2.5-4.9); Potassium 3.7 mmol/L (3.5-5.1); Protein, Total 5.6 g/dL (6.4-8.2); Sodium Level 141 mmol/L (136-145)
--- NOTE | 2021-10-18 07:57 | PCM.PN.SRG ---
Subjective Subjective Patient was seen and examined during AM rounds. He reports that he is feeling well. He is mentally doing much better. He denies any issues with his diet overnight. Speaking of which, he states that he only had 1 Ensure yesterday. He did have a small bowel movement. Objective Data Objective Data Vital Signs: Vital Signs Temp Pulse Resp BP Pulse Ox 97.3 F L 90 20 H 143/78 H 94 10/18/21 03:27 10/18/21 06:44 10/18/21 06:44 10/18/21 03:27 10/18/21 06:44 Oxygen Flow Rate (L/min) [At 2 REST with Oxygen] Oxygen Flow Rate (L/min) 4 Oxygen Delivery Method Room Air Weight: 248 lb 10.903 oz Body Mass Index (BMI) 29.0 Intake & Output: Intake and Output for Last 24 Hours 10/16/21 10/17/21 10/18/21 23:59 23:59 23:59 Intake Total 5052.13 / 5052.13 5284.38 / 5284.38 120 / 120 Output Total 2398 / 2798 2615 / 3690 1075 / 1075 Balance 2654.13 / 2254.13 2669.38 / 1594.38 -955 / -955 Medical Nutrition Assessment Dietitian: Malnutrition Criteria Met Start: 10/10/21 10:28 Freq: Status: Active Protocol: Document 10/17/21 11:43 AG (Rec: 10/17/21 11:43 AG [id number]) Nutrition Malnutrition Evidence of Malnutrition Exists Yes Malnutrition (severe): Acute Illness/Injury Evidenced By Suboptimal Energy Intake ( Severe),Weight Loss (Severe) Intake Problem Inadequate Oral Intake Etiology related to altered GI function s/p surgery Signs/Symptoms as evidenced by NPO, estimated energy intake meeting <50% of estimated nutritional needs > 5 days Status Active Problem Clinical Problem Acute Disease or Injury Related Malnutrition Etiology severe, acute malnutrition r/t inadequate energy intake w/ increased energy needs d/t multiple abd surgeries, wound, infection Signs/Symptoms as evidenced by unintentional wt loss of 17.9#/7.1% <1 month , estimated energy intake from PO diet/TPN meeting <75% of estimated energy needs >1 week Status Active Problem Recommendation Dietitian Recommendations/Changes 1) For Day #18 TPN: 1.5L 8%AA/ 14% dextrose solution w/ MVI/ electrolytes/trace minerals to provide 1196 calories, 120 g protein/day. 2) Recommend advance diet as tolerated to transitional; continue ensure enlive 120mL 4x/day as PO diet advanced. Wean TPN as PO intake improves . 3) Daily wts. Monitoring of labs. Lab / Micro Data Result Diagrams: 10/18/21 06:25 10/18/21 06:25 Labs: Laboratory Results - last 24 hr 10/17/21 12:46: POC Glucose 141 H 10/17/21 17:27: Vancomycin Trough 21.4 H 10/17/21 18:38: POC Glucose 144 H 10/17/21 21:52: POC Glucose 145 H 10/18/21 05:11: POC Glucose 130 H 10/18/21 06:25: WBC 10.0, RBC 2.93 L, Hgb 9.0 L, Hct 27.4 L, MCV 93.5, MCH 30.7, MCHC 32.8, RDW Std Deviation 53.0 H, RDW Coeff of Ar 15.4 H, Plt Count 510 H, MPV 9.9, Immature Gran % (Auto) 1.300 H, Neut % (Auto) 72.1 H, Lymph % (Auto) 12.3 L, [place] % (Auto) 10.2 H, Eos % (Auto) 3.3, Baso % (Auto) 0.8, Absolute Neuts (auto) 7.2, Absolute Lymphs (auto) 1.23, Nucleated RBC % 0 10/18/21 06:25: Sodium 141, Potassium 3.7, Chloride 111 H, Carbon Dioxide 27.0, Anion Gap 3 L, BUN 17, Creatinine 0.48 L, Estim Creat Clear Calc 195.90, Est GFR (MDRD) Af Amer 224, Est GFR (MDRD) Non-Af 185, BUN/Creatinine Ratio 35.1 H, Glucose 120 H, Calcium 7.9 L, Phosphorus 2.2 L, Magnesium 1.9, Total Bilirubin 0.40, AST 31, ALT 39, Alkaline Phosphatase 135 H, Total Protein 5.6 L, Albumin 1.6 L, Globulin 4.0, Albumin/Globulin Ratio 0.4 L 10/18/21 06:25: Random Vancomycin 13.1 Micro: Microbiology 10/09/21 Unknown Tissue - Abdominal Gram Stain - Final 10/09/21 Unknown Tissue - Abdominal Wound Culture - Final Escherichia coli 10/09/21 Unknown Tissue - Abdominal Anaerobic Culture - Final Prevotella melaninogenica Bacteroides thetaiotaomicron Anaerobic cocci 10/07/21 07:50 Incision/Surgical Site Gram Stain - Final 10/07/21 07:50 Incision/Surgical Site Wound Culture - Final Escherichia coli 10/07/21 07:50 Incision/Surgical Site Anaerobic Culture - Final Bacteroides caccae Bacteroides thetaiotaomicron Clostridium group 09/30/21 13:05 Mario Samuel Drainage Gram Stain - Final 09/30/21 13:05 Mario Samuel Drainage Body Fluid Culture - Final Escherichia coli 09/30/21 13:05 Mario Samuel Drainage Anaerobic Culture - Final Bacteroides thetaiotaomicron Clostridium ramosum 09/29/21 05:45 Stool Ova and Parasites - Final 10/01/21 17:10 Nasal Secretion SARS-CoV-2 Antigen (Rapid) - Final 09/29/21 05:45 Stool Enteric Bacteriology - Final 09/28/21 15:40 Stool Stool Lactoferrin - Final 09/28/21 15:40 Stool C. difficile DNA Amplification - Final 09/21/21 01:18 Nasal Secretion SARS-CoV-2 Antigen (Rapid) - Final Physical Exam GI GI Narrative: Nondistended, soft, appropriately tender about laparotomy site. Some thin brown-yellow drainage of right upper quadrant drain. Right lower quadrant drain now removed and drain site with scant serous drainage. Slight blistering of the skin near retention suture second from the bottom stable. Patient's dressing contains some yellow exudate, but wound bed appears healthy and granulating without need for additional debridement. Assessment & Plan Assessment/Plan (1) S/P laparoscopic appendectomy: PLAN: Patient required return to the OR on 09/24/2021 after pathology reported they did not identify appendix in the patient's surgical specimen from 09/21/2021. Therefore, patient is postoperative day 23 from hand-assisted laparoscopic appendectomy with drain placement. Unfortunately, patient developed evidence of a controlled perforation from the terminal ileum?per drain study 10/01/2021. He was thus n.p.o. and initiated TPN. He was then taken for open ileocecectomy on 10/02/2021 (2) Appendicitis with perforation: PLAN: Status post above operative course (3) Perforation of small intestine: PLAN: Patient postoperative day 17 from open ileocecectomy. Patient was held NPO after character of wound drainage became more malodorous and cloudy. Bedside wound exploration performed but not well tolerated. Did find evidence of necrotic fascia and patient was posted for operative exploration. Underwent re-exploratory laparotomy on 10/09/2021 with abdominal washout, drain placement, fascial debridement, and abdominal wall closure with placement of retention sutures. (4) Intra-abdominal abscess: PLAN: s/p ab washout with additional drain placement 10/09/21 (5) Postoperative wound infection: PLAN: s/p fascial debridement and ab wall closure 10/09/21 (skin left open) Patient remains afebrile with normal white count. Tolerated only a single Ensure yesterday. Continues to have ongoing bowel function. KELLY 1 drain removed yesterday and remaining KELLY to drain output is minimal. Overall, healing appearance to patient's laparotomy wound with no further signs of infection. No debridement required during today's dressing change. Patient mental in a better place today. We will look to get him outside in a wheelchair today as he was not able to go yesterday with the way he felt. Neuro: As needed Dilaudid?decreased to 0.5 mg every 3 hours as needed postoperative pain. Pulm/CV: Supplemental O2 as needed; currently on room air, DuoNebs every 6 hours while awake, telemetry FEN/GI: Prior hypernatremia has resolved. Hypophosphatemia today we will replace with sodium Phos packet daily. Slight hypomagnesemia?replace with 128 mg mag chloride daily. Advance to soft, low residue diet today and continue Ensure and life supplements 3 times daily. Renew TPN today at half rate (patient with severe protein calorie malnutrition as evinced by his recent albumin. Reglan as 2nd line antiemetic. : Continue application of nystatin powder to groin yeast infection. UA negative (10/15/2021). Heme/ID: Hemoglobin stable. Worsening thrombocytosis but plateauing (suspect reactive). White count remains within normal limits. Patient no longer experiencing low-grade temps. Patient is on meropenem and vancomycin given abscess and wound infection noted 10/09 per ID. Continue to follow clinically Endo: Mild hyperglycemia related to TPN Proph: SCDs, resume subcu heparin every 8 hours, patient encouraged to ambulate and be up and out of bed in a chair as much as possible Dispo: Continue inpatient care but requesting assistance from case management for evaluating patient's placement options for ongoing wound care needs Charges/Coding Visit Charges Inpatient E&M: 12309 Subs Hosp L2
[2021-10-18] MEDS: 0.9% Normal Saline 1,000 ML 50 ML IV (08:51)
[2021-10-18] MEDS: Ibuprofen 400 MG Tablet PO (08:51)
--- NOTE | 2021-10-18 09:11 | PHA.PHARE_ITS ---
Consult Pharmacy has been consulted to manage selected antiobiotic: Vancomycin Type of Consult: Follow-up Prior Doses of Antibiotics Received/Current Regimen: patient was on vanc 1250mg IV q8h until that was held last night Labs: Sodium 141 mmol/L (136-145) 10/18/21 06:25 Potassium 3.7 mmol/L (3.5-5.1) 10/18/21 06:25 Chloride 111 mmol/L (98-107) H 10/18/21 06:25 Carbon Dioxide 27.0 mmol/L (21.0-32.0) 10/18/21 06:25 Anion Gap 3 (5-15) L 10/18/21 06:25 BUN 17 mg/dL (7-18) 10/18/21 06:25 Creatinine 0.48 mg/dL (0.70-1.30) L 10/18/21 06:25 Est GFR (MDRD) Af Amer 224 mL/min (>60) 10/18/21 06:25 Est GFR (MDRD) Non-Af 185 mL/min (>60) 10/18/21 06:25 BUN/Creatinine Ratio 35.1 RATIO (10-20) H 10/18/21 06:25 Glucose 120 mg/dL (74-106) H 10/18/21 06:25 Vancomycin Trough 21.4 ug/mL (5.0-15.0) H 10/17/21 17:27 Random Vancomycin 13.1 ug/mL (0.0-15.0) 10/18/21 06:25 Microbiology: Microbiology 10/09/21 Unknown Tissue - Abdominal Gram Stain - Final 10/09/21 Unknown Tissue - Abdominal Wound Culture - Final Escherichia coli 10/09/21 Unknown Tissue - Abdominal Anaerobic Culture - Final Prevotella melaninogenica Bacteroides thetaiotaomicron Anaerobic cocci 10/07/21 07:50 Incision/Surgical Site Gram Stain - Final 10/07/21 07:50 Incision/Surgical Site Wound Culture - Final Escherichia coli 10/07/21 07:50 Incision/Surgical Site Anaerobic Culture - Final Bacteroides caccae Bacteroides thetaiotaomicron Clostridium group 09/30/21 13:05 Mario Samuel Drainage Gram Stain - Final 09/30/21 13:05 Mario Samuel Drainage Body Fluid Culture - Final Escherichia coli 09/30/21 13:05 Mario Samuel Drainage Anaerobic Culture - Final Bacteroides thetaiotaomicron Clostridium ramosum 09/29/21 05:45 Stool Ova and Parasites - Final 10/01/21 17:10 Nasal Secretion SARS-CoV-2 Antigen (Rapid) - Final 09/29/21 05:45 Stool Enteric Bacteriology - Final 09/28/21 15:40 Stool Stool Lactoferrin - Final 09/28/21 15:40 Stool C. difficile DNA Amplification - Final 09/21/21 01:18 Nasal Secretion SARS-CoV-2 Antigen (Rapid) - Final Weight used for dosin.8 kg Estimated Creatinine Clearance: 195ml/min Goal Trough: 15-20 mcg/mL Pharmacy Plan for Drug Dosing: The vanc random level drawn at 06:25 today (approx 12 hours after the previous d ose) came back as 13.1. This is back below 20 so will restart dosing again. The previous trough of 21.4 was drawn at only 6 hours after a dose instead of being closer to 8 hours so it most likely would have been below 20 if drawn closer to the 8-hour minda. Therefore, will restart dosing today at the previous dose of 1250mg IV q8h since that provided 3 previous troughs to be within goal range of 15-20 since they were drawn at the appropriate time interval. Will order a trough to be drawn again before the 4th dose tomorrow per protocol. Pharmacy Service will continue to monitor and adjust dosing as required. Follow-Up Labs: Trough Vancomycin Labs to be done on [date and time ordered]: 10/19/21 8723
--- NOTE | 2021-10-18 11:11 | CASEMGMT ---
Social Work Note RAVEN in to speak with pt and pt's Briana. SW spoke with pt and Briana about discharge plans. Pt states he doesn't want to make any decisions/commitment on discharge plans at this time. Pt states that the physician mentioned pt going somewhere where he can continue to see pt. SW informed pt that this worker is not sure of any facilities the physician has privileges in so pt may need to go somewhere that the physician doens't have privileges at. Pt again states he doesn't want to commit to anything. SW informed pt that SW/RN KELBY will follow up with pt Thursday. Pt states understanding. Plan: DODIE Bernard [employer] MANAGER, [employer] SAW OPERATOR
[2021-10-18] MEDS: Magnesium Chloride 64 MG Delay Rel.Tablet 128 MG PO (11:19)
[2021-10-18 11:51] LABS: Bedside Glucose 111 mg/dL (74-106)
--- NOTE | 2021-10-18 12:23 | PCM.PN.ID ---
Physical Exam Narrative Feeling ok today. No fever, no abd pain. Had BM. Const alert and no apparent distress General Appearance: cooperative Resp normal air movement and clear to auscultation bilaterally Cardio regular rate and regular rhythm GI soft to palpation, non-tender and non-distended Skin no rashes or lesions noted ID ID: Route of nutrition/ use of supplements: [] Nutritional Intake: [] IV Site: [] Wills Catheter: [] Assessment & Plan Assessment/Plan (1) Intra-abdominal abscess: (2) Appendicitis with perforation: PLAN: On vanc/naheed since 10/11, surg cxs with medrano-S ecoli and anaerobes. Last surgery was 10/09. Will continue with broad coverage given the complications he has had. No signs of ongoing fasciitis. Wbc normalized and is feeling better. Total duration of abx will depend on drain output, plan at this point is to stop on 10/21. CT showed improvement in fluid collection. Will follow (3) Postoperative wound infection:
[2021-10-18] MEDS: Na Biphos/Potassium Phosphate PACKET 1 PACKET PO (12:42)
[2021-10-18] MEDS: TPN - Clinimix E 8%-14% Soln 2,000 ML with Multivitamins 10 ML, Trace Elements 1 ML, Fo... 42 ML IV (16:24)
[2021-10-18 18:16] LABS: Bedside Glucose 120 mg/dL (74-106)
[2021-10-19 00:15] VITALS: BP 144/84; PULSE 92; RESP 18; TEMP 36.8; O2SAT 92
[2021-10-19] MEDS: 0.9% Saline Lock 10 ML Syringe IV ×2 (00:19→20:15)
[2021-10-19] MEDS: HYDROmorphone 0.5 MG/0.5 ML SYRINGE IV ×5 (00:20→23:47)
[2021-10-19 00:31] LABS: Bedside Glucose 130 mg/dL (74-106)
[2021-10-19] MEDS: oxyCODONE 5 MG Tablet PO ×2 (04:54→12:02)
[2021-10-19 04:58] VITALS: BP 160/103; PULSE 97; RESP 18; TEMP 36.7; O2SAT 95
[2021-10-19] MEDS: Heparin Injection (Vial) 5,000 UNIT/ML VIAL 5000 UNIT SC ×3 (05:03→21:29)
[2021-10-19 06:16] LABS: Bedside Glucose 121 mg/dL (74-106)
[2021-10-19 06:35] LABS: Absolute Lymphocyte Count 1.34 X10^3/uL (0.83-4.51); Absolute Neutrophil Count 5.5 X10^3/uL (2.0-7.7); Basophil# 0.05 X10^3/uL; Basophil% 0.6 % (0-1); Eosinophil# 0.27 X10^3/uL; Eosinophils% 3.3 % (0-5); Hematocrit 27.3 % (40-54); Lymphocyte # 1.34 X10^3/ul (0.83-4.51); Lymphocyte % 16.3 % (19-41); Mean Corpuscular Hgb 30.9 pg (27.0-32.0); Mean Corpuscular Volume 93.8 fL (80-94); Mean Platelet Vol. 10.1 fl (6.2-12.0); Monocyte# 0.95 X10^3/uL; Monocyte% 11.5 % (0-10); NRBC Flagged by Analyzer 0 % (0-5); Neutrophil # 5.53 X10^3/uL (2.7-7.7); Neutrophil % 67.1 % (47-70); Platelet Count 503 K/mm3 (150-450); RBC Distribution Width CV 15.4 % (11.6-14.6); RBC Distribution Width SD 53.2 fl (35.1-43.9); Red Blood Count 2.91 M/mm3 (4.6-6.2); White Blood Count 8.2 K/mm3 (4.4-11.0)
[2021-10-19 07:01] LABS: ALB/GLOB Ratio 0.4 RATIO (0.9-2.4); AST(SGOT) 31 U/L (15-37); Alanine Aminotransfer ALT/SGPT 41 U/L (16-61); Albumin, Serum 1.7 g/dL (3.2-5.0); Alkaline Phosphatase 142 U/L (45-117); Anion Gap 2 (5-15); BUN 16 mg/dL (7-18); BUN/Creat Ratio 35.4 RATIO (10-20); Calcium,Total 7.7 mg/dL (8.5-10.1); Chloride 108 mmol/L (98-107); Creatinine, Serum 0.45 mg/dL (0.70-1.30); EST Glomerular Filtration Rate 201 mL/min (>60); Est Glom Filt Rate - Afr Amer 243 mL/min (>60); Estimated Creatinine Clearance 208.96 ml/min; Globulin 4.1 g/dL (2.2-4.2); Glucose 118 mg/dL (74-106); Magnesium 2.3 mg/dL (1.6-2.6); Phosphorus 2.5 mg/dL (2.5-4.9); Potassium 4.1 mmol/L (3.5-5.1); Protein, Total 5.8 g/dL (6.4-8.2); Sodium Level 140 mmol/L (136-145)
--- NOTE | 2021-10-19 07:09 | PCM.PN.SRG ---
Subjective Subjective Patient reports passing flatus and having small bowel movement. He tolerated small diet and his protein shakes without nausea or vomiting. Objective Data Objective Data Vital Signs: Vital Signs Temp Pulse Resp BP Pulse Ox 98.1 F 97 18 160/103 H 95 10/19/21 04:58 10/19/21 04:58 10/19/21 04:58 10/19/21 04:58 10/19/21 04:58 Oxygen Flow Rate (L/min) [At 2 REST with Oxygen] Oxygen Flow Rate (L/min) 4 Oxygen Delivery Method Room Air Weight: 251 lb 12.286 oz Body Mass Index (BMI) 29.0 Intake & Output: Intake and Output for Last 24 Hours 10/17/21 10/18/21 10/19/21 23:59 23:59 23:59 Intake Total 5284.38 / 5284.38 5207.65 / 5207.65 720 / 720 Output Total 2615 / 3690 4210 / 4210 878 / 878 Balance 2669.38 / 1594.38 997.65 / 997.65 -158 / -158 Medical Nutrition Assessment Dietitian: Malnutrition Criteria Met Start: 10/10/21 10:28 Freq: Status: Active Protocol: Document 10/18/21 12:25 AG (Rec: 10/18/21 12:25 [id number]) Nutrition Malnutrition Evidence of Malnutrition Exists Yes Malnutrition (severe): Acute Illness/Injury Evidenced By Suboptimal Energy Intake ( Severe),Weight Loss (Severe) Intake Problem Inadequate Oral Intake Etiology related to altered GI function s/p surgery Signs/Symptoms as evidenced by NPO, estimated energy intake meeting <50% of estimated nutritional needs > 5 days Status Active Problem Clinical Problem Acute Disease or Injury Related Malnutrition Etiology severe, acute malnutrition r/t inadequate energy intake w/ increased energy needs d/t multiple abd surgeries, wound, infection Signs/Symptoms as evidenced by unintentional wt loss of 17.9#/7.1% <1 month , estimated energy intake from PO diet/TPN meeting <75% of estimated energy needs >1 week Status Active Problem Recommendation Dietitian Recommendations/Changes 1) For Day #19 TPN: 1L 8%AA/14 % dextrose solution w/ MVI/ electrolytes/trace minerals to provide 798 calories, 80 g protein/day. 2) Recommend continue transitional diet as tolerated ; continue ensure enlive 120mL 4x/day as PO diet advanced. Wean TPN as PO intake improves . 3) Daily wts. Monitoring of labs. Lab / Micro Data Result Diagrams: 10/19/21 05:52 10/19/21 05:52 Labs: Laboratory Results - last 24 hr 10/18/21 06:25: Sodium 141, Potassium 3.7, Chloride 111 H, Carbon Dioxide 27.0, Anion Gap 3 L, BUN 17, Creatinine 0.48 L, Estim Creat Clear Calc 195.90, Est GFR (MDRD) Af Amer 224, Est GFR (MDRD) Non-Af 185, BUN/Creatinine Ratio 35.1 H, Glucose 120 H, Calcium 7.9 L, Phosphorus 2.2 L, Magnesium 1.9, Total Bilirubin 0.40, AST 31, ALT 39, Alkaline Phosphatase 135 H, Total Protein 5.6 L, Albumin 1.6 L, Globulin 4.0, Albumin/Globulin Ratio 0.4 L 10/18/21 06:25: Random Vancomycin 13.1 10/18/21 11:46: POC Glucose 111 H 10/18/21 18:13: POC Glucose 120 H 10/19/21 00:17: POC Glucose 130 H 10/19/21 05:52: WBC 8.2, RBC 2.91 L, Hgb 9.0 L, Hct 27.3 L, MCV 93.8, MCH 30.9, MCHC 33.0, RDW Std Deviation 53.2 H, RDW Coeff of Ar 15.4 H, Plt Count 503 H, MPV 10.1, Immature Gran % (Auto) 1.200 H, Neut % (Auto) 67.1, Lymph % (Auto) 16.3 L, [place] % (Auto) 11.5 H, Eos % (Auto) 3.3, Baso % (Auto) 0.6, Absolute Neuts (auto) 5.5, Absolute Lymphs (auto) 1.34, Nucleated RBC % 0 10/19/21 05:52: Sodium 140, Potassium 4.1, Chloride 108 H, Carbon Dioxide 30.0, Anion Gap 2 L, BUN 16, Creatinine 0.45 L, Estim Creat Clear Calc 208.96, Est GFR (MDRD) Af Amer 243, Est GFR (MDRD) Non-Af 201, BUN/Creatinine Ratio 35.4 H, Glucose 118 H, Calcium 7.7 L, Phosphorus 2.5, Magnesium 2.3, Total Bilirubin 0.30, AST 31, ALT 41, Alkaline Phosphatase 142 H, Total Protein 5.8 L, Albumin 1.7 L, Globulin 4.1, Albumin/Globulin Ratio 0.4 L 10/19/21 06:08: POC Glucose 121 H Micro: Microbiology 10/09/21 Unknown Tissue - Abdominal Gram Stain - Final 10/09/21 Unknown Tissue - Abdominal Wound Culture - Final Escherichia coli 10/09/21 Unknown Tissue - Abdominal Anaerobic Culture - Final Prevotella melaninogenica Bacteroides thetaiotaomicron Anaerobic cocci 10/07/21 07:50 Incision/Surgical Site Gram Stain - Final 10/07/21 07:50 Incision/Surgical Site Wound Culture - Final Escherichia coli 10/07/21 07:50 Incision/Surgical Site Anaerobic Culture - Final Bacteroides caccae Bacteroides thetaiotaomicron Clostridium group 09/30/21 13:05 Mario Samuel Drainage Gram Stain - Final 09/30/21 13:05 Mario Samuel Drainage Body Fluid Culture - Final Escherichia coli 09/30/21 13:05 Mario Samuel Drainage Anaerobic Culture - Final Bacteroides thetaiotaomicron Clostridium ramosum 09/29/21 05:45 Stool Ova and Parasites - Final 10/01/21 17:10 Nasal Secretion SARS-CoV-2 Antigen (Rapid) - Final 09/29/21 05:45 Stool Enteric Bacteriology - Final 09/28/21 15:40 Stool Stool Lactoferrin - Final 09/28/21 15:40 Stool C. difficile DNA Amplification - Final 09/21/21 01:18 Nasal Secretion SARS-CoV-2 Antigen (Rapid) - Final Physical Exam Const oriented x3 and no apparent distress Resp normal respiratory effort Cardio regular rate GI soft to palpation and non-tender Assessment & Plan Assessment/Plan (1) Postoperative wound infection: PLAN: The patient reports flatus and small bowel movement and he is tolerating some diet. His TPN will stop after this bag Finishes. I change the patient's dressing the wound base appears clean. Adaptic and wet to dry dressing was placed. Patient is overall doing well and will continue antibiotics. Mickey Messina MD Pager: [facility] [address] [place] [address], [address] [place] [address] Office:
[2021-10-19 07:14] VITALS: PULSE 87; RESP 18; O2SAT 94
[2021-10-19] MEDS: Ipratropium/Albuterol Sulfate 3 ML AMPUL.NEB INHALATION (07:17)
[2021-10-19 09:15] LABS: Vancomycin, Trough Level 19.4 ug/mL (5.0-15.0)
[2021-10-19] MEDS: Ibuprofen 400 MG Tablet PO (09:19)
[2021-10-19] MEDS: Na Biphos/Potassium Phosphate PACKET 1 PACKET PO (09:26)
[2021-10-19] MEDS: Magnesium Chloride 64 MG Delay Rel.Tablet 128 MG PO (09:26)
[2021-10-19 10:00] VITALS: BP 155/85; PULSE 74; RESP 18; TEMP 37; O2SAT 95
--- NOTE | 2021-10-19 10:42 | PCM.RX.CS ---
Consult Pharmacy has been consulted to manage selected antiobiotic: Vancomycin Type of Consult: Follow-up Prior Doses of Antibiotics Received/Current Regimen: Medications Vancomycin HCl 1,250 mg/ (Sodium Chloride) 275 mls @ 167 mls/hr IV Q8H ROXANA Last Admin: 10/19/21 02:22 Dose: Infused Documented by: Labs: Sodium 140 mmol/L (136-145) 10/19/21 05:52 Potassium 4.1 mmol/L (3.5-5.1) 10/19/21 05:52 Chloride 108 mmol/L (98-107) H 10/19/21 05:52 Carbon Dioxide 30.0 mmol/L (21.0-32.0) 10/19/21 05:52 Anion Gap 2 (5-15) L 10/19/21 05:52 BUN 16 mg/dL (7-18) 10/19/21 05:52 Creatinine 0.45 mg/dL (0.70-1.30) L 10/19/21 05:52 Est GFR (MDRD) Af Amer 243 mL/min (>60) 10/19/21 05:52 Est GFR (MDRD) Non-Af 201 mL/min (>60) 10/19/21 05:52 BUN/Creatinine Ratio 35.4 RATIO (10-20) H 10/19/21 05:52 Glucose 118 mg/dL (74-106) H 10/19/21 05:52 Vancomycin Trough 19.4 ug/mL (5.0-15.0) H 10/19/21 08:02 Random Vancomycin 13.1 ug/mL (0.0-15.0) 10/18/21 06:25 Microbiology: Microbiology 10/09/21 Unknown Tissue - Abdominal Gram Stain - Final 10/09/21 Unknown Tissue - Abdominal Wound Culture - Final Escherichia coli 10/09/21 Unknown Tissue - Abdominal Anaerobic Culture - Final Prevotella melaninogenica Bacteroides thetaiotaomicron Anaerobic cocci 10/07/21 07:50 Incision/Surgical Site Gram Stain - Final 10/07/21 07:50 Incision/Surgical Site Wound Culture - Final Escherichia coli 10/07/21 07:50 Incision/Surgical Site Anaerobic Culture - Final Bacteroides caccae Bacteroides thetaiotaomicron Clostridium group 09/30/21 13:05 Mario Samuel Drainage Gram Stain - Final 09/30/21 13:05 Mario Samuel Drainage Body Fluid Culture - Final Escherichia coli 09/30/21 13:05 Mario Samuel Drainage Anaerobic Culture - Final Bacteroides thetaiotaomicron Clostridium ramosum 09/29/21 05:45 Stool Ova and Parasites - Final 10/01/21 17:10 Nasal Secretion SARS-CoV-2 Antigen (Rapid) - Final 09/29/21 05:45 Stool Enteric Bacteriology - Final 09/28/21 15:40 Stool Stool Lactoferrin - Final 09/28/21 15:40 Stool C. difficile DNA Amplification - Final 09/21/21 01:18 Nasal Secretion SARS-CoV-2 Antigen (Rapid) - Final Goal Trough: 15-20 mcg/mL Pharmacy Plan for Drug Dosing: Trough in goal range. Antibiotics supposed to stop 10/21. Schedule a re-check if continued past that time. Pharmacy Service will continue to monitor and adjust dosing as required.
[2021-10-19 17:36] LABS: Bedside Glucose 130 mg/dL (74-106)
[2021-10-19 17:36] LABS: Bedside Glucose 135 mg/dL (74-106)
[2021-10-19 17:48] VITALS: BP 121/76; PULSE 90; RESP 18; TEMP 36.8; O2SAT 96
[2021-10-19 20:18] VITALS: BP 157/79; PULSE 91; RESP 18; TEMP 36.9; O2SAT 92
[2021-10-19] MEDS: 0.9% Normal Saline 1,000 ML 25 ML IV (23:47)
[2021-10-20] VITALS (10 sets, daily range): BP systolic 124–150; BP diastolic 75–88; PULSE 80–101; RESP 16–20; TEMP 36.6–36.8; O2SAT 92–100
[2021-10-20] MEDS: oxyCODONE 5 MG Tablet PO ×3 (02:46→20:37)
[2021-10-20] MEDS: Heparin Injection (Vial) 5,000 UNIT/ML VIAL 5000 UNIT SC ×3 (05:51→21:45)
[2021-10-20] MEDS: HYDROmorphone 0.5 MG/0.5 ML SYRINGE IV ×5 (05:52→23:20)
[2021-10-20] MEDS: Ipratropium/Albuterol Sulfate 3 ML AMPUL.NEB INHALATION ×3 (07:15→19:17)
--- NOTE | 2021-10-20 08:51 | PN.SURG_ITS ---
Subjective Subjective Patient reports tolerating a diet and having bowel movements. No nausea or vomiting. Objective Data Objective Data Vital Signs: Vital Signs Temp Pulse Resp BP Pulse Ox 98.1 F 80 17 147/88 H 96 10/20/21 02:38 10/20/21 07:16 10/20/21 07:16 10/20/21 02:38 10/20/21 07:16 Oxygen Flow Rate (L/min) [At 2 REST with Oxygen] Oxygen Flow Rate (L/min) 4 Oxygen Delivery Method Room Air Weight: 250 lb 14.177 oz Body Mass Index (BMI) 29.0 Intake & Output: Intake and Output for Last 24 Hours 10/18/21 10/19/21 10/20/21 23:59 23:59 23:59 Intake Total 5207.65 / 5207.65 5846.2 / 5846.2 1295 / 1295 Output Total 4210 / 4210 3323 / 3323 905 / 905 Balance 997.65 / 997.65 2523.2 / 2523.2 390 / 390 Medical Nutrition Assessment Dietitian: Malnutrition Criteria Met Start: 10/10/21 10:28 Freq: Status: Active Protocol: Document 10/18/21 12:25 AG (Rec: 10/18/21 12:25 AG [id number]) Nutrition Malnutrition Evidence of Malnutrition Exists Yes Malnutrition (severe): Acute Illness/Injury Evidenced By Suboptimal Energy Intake ( Severe),Weight Loss (Severe) Intake Problem Inadequate Oral Intake Etiology related to altered GI function s/p surgery Signs/Symptoms as evidenced by NPO, estimated energy intake meeting <50% of estimated nutritional needs > 5 days Status Active Problem Clinical Problem Acute Disease or Injury Related Malnutrition Etiology severe, acute malnutrition r/t inadequate energy intake w/ increased energy needs d/t multiple abd surgeries, wound, infection Signs/Symptoms as evidenced by unintentional wt loss of 17.9#/7.1% <1 month , estimated energy intake from PO diet/TPN meeting <75% of estimated energy needs >1 week Status Active Problem Recommendation Dietitian Recommendations/Changes 1) For Day #19 TPN: 1L 8%AA/14 % dextrose solution w/ MVI/ electrolytes/trace minerals to provide 798 calories, 80 g protein/day. 2) Recommend continue transitional diet as tolerated ; continue ensure enlive 120mL 4x/day as PO diet advanced. Wean TPN as PO intake improves . 3) Daily wts. Monitoring of labs. Lab / Micro Data Result Diagrams: 10/19/21 05:52 10/19/21 05:52 Labs: Laboratory Results - last 24 hr 10/19/21 08:02: Vancomycin Trough 19.4 H 10/19/21 12:00: POC Glucose 135 H 10/19/21 17:31: POC Glucose 130 H Micro: Microbiology 10/09/21 Unknown Tissue - Abdominal Gram Stain - Final 10/09/21 Unknown Tissue - Abdominal Wound Culture - Final Escherichia coli 10/09/21 Unknown Tissue - Abdominal Anaerobic Culture - Final Prevotella melaninogenica Bacteroides thetaiotaomicron Anaerobic cocci 10/07/21 07:50 Incision/Surgical Site Gram Stain - Final 10/07/21 07:50 Incision/Surgical Site Wound Culture - Final Escherichia coli 10/07/21 07:50 Incision/Surgical Site Anaerobic Culture - Final Bacteroides caccae Bacteroides thetaiotaomicron Clostridium group 09/30/21 13:05 Mario Samuel Drainage Gram Stain - Final 09/30/21 13:05 Mario Samuel Drainage Body Fluid Culture - Final Escherichia coli 09/30/21 13:05 Mario Samuel Drainage Anaerobic Culture - Final Bacteroides thetaiotaomicron Clostridium ramosum 09/29/21 05:45 Stool Ova and Parasites - Final 10/01/21 17:10 Nasal Secretion SARS-CoV-2 Antigen (Rapid) - Final 09/29/21 05:45 Stool Enteric Bacteriology - Final 09/28/21 15:40 Stool Stool Lactoferrin - Final 09/28/21 15:40 Stool C. difficile DNA Amplification - Final 09/21/21 01:18 Nasal Secretion SARS-CoV-2 Antigen (Rapid) - Final Physical Exam Const alert and oriented x3 Resp normal respiratory effort and normal air movement Cardio regular rate and regular rhythm GI soft to palpation, non-tender and non-distended Assessment & Plan Assessment/Plan (1) Postoperative wound infection: PLAN: Patient is tolerating a diet. His dressing was changed. Continue treatment until tomorrow, possible DC then. Mickey Messina MD Pager: [facility] [address] [place] [address], [address] [place] [address] Office:
[2021-10-20] MEDS: Na Biphos/Potassium Phosphate PACKET 1 PACKET PO (10:17)
[2021-10-20] MEDS: Magnesium Chloride 64 MG Delay Rel.Tablet 128 MG PO (10:18)
[2021-10-20] MEDS: Menthol/Lanolin/Calamine/Znox 113 GM Tube 1 APPLIC TOPICAL (15:00)
[2021-10-21 02:49] VITALS: BP 142/81; PULSE 89; RESP 20; TEMP 36.6; O2SAT 92
[2021-10-21] MEDS: oxyCODONE 5 MG Tablet PO ×3 (02:59→18:37)
[2021-10-21] MEDS: Menthol/Lanolin/Calamine/Znox 113 GM Tube 1 APPLIC TOPICAL ×2 (05:30→13:28)
[2021-10-21] MEDS: Heparin Injection (Vial) 5,000 UNIT/ML VIAL 5000 UNIT SC ×3 (05:30→21:20)
[2021-10-21] MEDS: HYDROmorphone 0.5 MG/0.5 ML SYRINGE IV ×3 (05:31→21:23)
[2021-10-21 06:31] LABS: Absolute Lymphocyte Count 1.25 X10^3/uL (0.83-4.51); Absolute Neutrophil Count 6.9 X10^3/uL (2.0-7.7); Basophil# 0.06 X10^3/uL; Basophil% 0.7 % (0-1); Eosinophil# 0.09 X10^3/uL; Hematocrit 27.9 % (40-54); Hemoglobin 9.1 g/dL (13.0-16.5); Lymphocyte # 1.25 X10^3/ul (0.83-4.51); Lymphocyte % 13.6 % (19-41); Mean Corp Hgb Conc 32.6 g/dL (32-36); Mean Corpuscular Hgb 30.5 pg (27.0-32.0); Mean Corpuscular Volume 93.6 fL (80-94); Mean Platelet Vol. 9.8 fl (6.2-12.0); Monocyte# 0.87 X10^3/uL; Monocyte% 9.5 % (0-10); NRBC Flagged by Analyzer 0 % (0-5); Neutrophil # 6.86 X10^3/uL (2.7-7.7); Neutrophil % 74.7 % (47-70); Platelet Count 456 K/mm3 (150-450); RBC Distribution Width CV 15.1 % (11.6-14.6); RBC Distribution Width SD 51.2 fl (35.1-43.9); Red Blood Count 2.98 M/mm3 (4.6-6.2); White Blood Count 9.2 K/mm3 (4.4-11.0)
[2021-10-21 06:48] LABS: Anion Gap 1 (5-15); BUN 9 mg/dL (7-18); BUN/Creat Ratio 16.9 RATIO (10-20); Calcium,Total 8.6 mg/dL (8.5-10.1); Chloride 105 mmol/L (98-107); Creatinine, Serum 0.53 mg/dL (0.70-1.30); EST Glomerular Filtration Rate 167 mL/min (>60); Est Glom Filt Rate - Afr Amer 202 mL/min (>60); Estimated Creatinine Clearance 177.42 ml/min; Glucose 111 mg/dL (74-106); Potassium 4.1 mmol/L (3.5-5.1); Sodium Level 138 mmol/L (136-145)
[2021-10-21] MEDS: Ipratropium/Albuterol Sulfate 3 ML AMPUL.NEB INHALATION (07:21)
[2021-10-21 07:22] VITALS: PULSE 88; RESP 18; O2SAT 94
--- NOTE | 2021-10-21 07:59 | PCM.PN.SRG ---
Subjective Subjective Patient seen and examined during AM rounds. He confirms that he still is tolerating his regular diet without nausea or vomiting. He reports a semiformed, large bowel movement overnight. He states that he has been sitting out of bed in a chair during most of waking hours. Objective Data Objective Data Vital Signs: Vital Signs Temp Pulse Resp BP Pulse Ox 97.8 F 88 18 142/81 H 94 10/21/21 02:49 10/21/21 07:22 10/21/21 07:22 10/21/21 02:49 10/21/21 07:22 Oxygen Flow Rate (L/min) [At 2 REST with Oxygen] Oxygen Flow Rate (L/min) 4 Oxygen Delivery Method Room Air Weight: 251 lb 8.759 oz Body Mass Index (BMI) 29.0 Intake & Output: Intake and Output for Last 24 Hours 10/19/21 10/20/21 10/21/21 23:59 23:59 23:59 Intake Total 5846.2 / 5846.2 3595 / 4095 1295 / 1295 Output Total 3323 / 3323 2505 / 3505 2450 / 2450 Balance 2523.2 / 2523.2 1090 / 590 -1155 / -1155 Medical Nutrition Assessment Dietitian: Malnutrition Criteria Met Start: 10/10/21 10:28 Freq: Status: Active Protocol: Document 10/18/21 12:25 (Rec: 10/18/21 12:25 [id number]) Nutrition Malnutrition Evidence of Malnutrition Exists Yes Malnutrition (severe): Acute Illness/Injury Evidenced By Suboptimal Energy Intake ( Severe),Weight Loss (Severe) Intake Problem Inadequate Oral Intake Etiology related to altered GI function s/p surgery Signs/Symptoms as evidenced by NPO, estimated energy intake meeting <50% of estimated nutritional needs > 5 days Status Active Problem Clinical Problem Acute Disease or Injury Related Malnutrition Etiology severe, acute malnutrition r/t inadequate energy intake w/ increased energy needs d/t multiple abd surgeries, wound, infection Signs/Symptoms as evidenced by unintentional wt loss of 17.9#/7.1% <1 month , estimated energy intake from PO diet/TPN meeting <75% of estimated energy needs >1 week Status Active Problem Recommendation Dietitian Recommendations/Changes 1) For Day #19 TPN: 1L 8%AA/14 % dextrose solution w/ MVI/ electrolytes/trace minerals to provide 798 calories, 80 g protein/day. 2) Recommend continue transitional diet as tolerated ; continue ensure enlive 120mL 4x/day as PO diet advanced. Wean TPN as PO intake improves . 3) Daily wts. Monitoring of labs. Lab / Micro Data Result Diagrams: 10/21/21 06:05 10/21/21 06:05 Labs: Laboratory Results - last 24 hr 10/21/21 06:05: WBC 9.2, RBC 2.98 L, Hgb 9.1 L, Hct 27.9 L, MCV 93.6, MCH 30.5, MCHC 32.6, RDW Std Deviation 51.2 H, RDW Coeff of Ar 15.1 H, Plt Count 456 H, MPV 9.8, Immature Gran % (Auto) 0.500, Neut % (Auto) 74.7 H, Lymph % (Auto) 13.6 L, Gilliam % (Auto) 9.5, Eos % (Auto) 1.0, Baso % (Auto) 0.7, Absolute Neuts (auto) 6.9, Absolute Lymphs (auto) 1.25, Nucleated RBC % 0 10/21/21 06:05: Sodium 138, Potassium 4.1, Chloride 105, Carbon Dioxide 32.0, Anion Gap 1 L, BUN 9, Creatinine 0.53 L, Estim Creat Clear Calc 177.42, Est GFR (MDRD) Af Amer 202, Est GFR (MDRD) Non-Af 167, BUN/Creatinine Ratio 16.9, Glucose 111 H, Calcium 8.6 Micro: Microbiology 10/09/21 Unknown Tissue - Abdominal Gram Stain - Final 10/09/21 Unknown Tissue - Abdominal Wound Culture - Final Escherichia coli 10/09/21 Unknown Tissue - Abdominal Anaerobic Culture - Final Prevotella melaninogenica Bacteroides thetaiotaomicron Anaerobic cocci 10/07/21 07:50 Incision/Surgical Site Gram Stain - Final 10/07/21 07:50 Incision/Surgical Site Wound Culture - Final Escherichia coli 10/07/21 07:50 Incision/Surgical Site Anaerobic Culture - Final Bacteroides caccae Bacteroides thetaiotaomicron Clostridium group 09/30/21 13:05 Mario Samuel Drainage Gram Stain - Final 09/30/21 13:05 Mario Samuel Drainage Body Fluid Culture - Final Escherichia coli 09/30/21 13:05 Mario Samuel Drainage Anaerobic Culture - Final Bacteroides thetaiotaomicron Clostridium ramosum 09/29/21 05:45 Stool Ova and Parasites - Final 10/01/21 17:10 Nasal Secretion SARS-CoV-2 Antigen (Rapid) - Final 09/29/21 05:45 Stool Enteric Bacteriology - Final 09/28/21 15:40 Stool Stool Lactoferrin - Final 09/28/21 15:40 Stool C. difficile DNA Amplification - Final 09/21/21 01:18 Nasal Secretion SARS-CoV-2 Antigen (Rapid) - Final Physical Exam Const no apparent distress Resp normal respiratory effort GI GI Narrative: Nondistended, soft, dressing over laparotomy serous character, but inside packing still contains a yellow-green biofilm drainage. Skin at the level of the umbilicus is somewhat hyperemic and dry. Wound base clean with healthy granulation tissue. Right upper quadrant drain with a thin yellow serous output (5 mL). Assessment & Plan Assessment/Plan (1) S/P laparoscopic appendectomy: PLAN: Patient required return to the OR on 09/24/2021 after pathology reported they did not identify appendix in the patient's surgical specimen from 09/21/2021. Therefore, patient is postoperative day 27 from hand-assisted laparoscopic appendectomy with drain placement. Unfortunately, patient developed evidence of a controlled perforation from the terminal ileum?per drain study 10/01/2021. He was thus n.p.o. and initiated TPN. He was then taken for open ileocecectomy on 10/02/2021 (2) Appendicitis with perforation: PLAN: Status post above operative course (3) Perforation of small intestine: PLAN: Patient postoperative day 19 from open ileocecectomy. Patient was held NPO after character of wound drainage became more malodorous and cloudy. Bedside wound exploration performed but not well tolerated. Did find evidence of necrotic fascia and patient was posted for operative exploration. Underwent re-exploratory laparotomy on 10/09/2021 with abdominal washout, drain placement, fascial debridement, and abdominal wall closure with placement of retention sutures. (4) Intra-abdominal abscess: PLAN: s/p ab washout with additional drain placement 10/09/21 (5) Postoperative wound infection: PLAN: s/p fascial debridement and ab wall closure 10/09/21 (skin left open) Patient remains afebrile with normal white count. Tolerating regular diet. Continues to have ongoing bowel function. KELLY to drain removed today after minimal output of serous fluid. Overall, healing appearance to patient's laparotomy wound with no further signs of infection. Some biofilm appearance to dressings so I have been using Dakin's during one of the 2 dressing changes daily. Per ID, this is the last day for IV antibiotics. We will continue working on patient's post hospital disposition. Neuro: As needed Dilaudid?decreased to 0.5 mg every 3 hours as needed postoperative pain. Pulm/CV: Supplemental O2 as needed; currently on room air, DuoNebs every 6 hours while awake, telemetry FEN/GI: Prior hypernatremia has resolved. Continue soft, low residue diet today and continue Ensure and life supplements 3 times daily. TPN discontinued 10/20/2021. : Continue application of nystatin powder to groin yeast infection. UA negative (10/15/2021). Heme/ID: Hemoglobin stable. Thrombocytosis improved. White count remains within normal limits. Afebrile. Patient is on meropenem and vancomycin given abscess and wound infection noted 10/09 per ID until today 10/21/2021. Continue to follow clinically Endo: Every 6 hour glucose checks discontinued Proph: SCDs, subcu heparin every 8 hours, patient encouraged to ambulate and be up and out of bed in a chair as much as possible Dispo: Continue inpatient care but requesting assistance from case management for evaluating patient's placement options for ongoing wound care needs Charges/Coding Visit Charges Inpatient E&M: 09917 Subs Hosp L2
[2021-10-21 08:22] VITALS: BP 135/77; PULSE 88; RESP 18; TEMP 37.4; O2SAT 95
[2021-10-21] MEDS: Magnesium Chloride 64 MG Delay Rel.Tablet 128 MG PO (10:00)
[2021-10-21] MEDS: Na Biphos/Potassium Phosphate PACKET 1 PACKET PO (10:10)
--- NOTE | 2021-10-21 13:20 | PCM.PN.ID ---
Physical Exam Narrative Feeling ok, abd closure this afternoon. No fever. Const alert and no apparent distress General Appearance: cooperative Resp Effort and Inspection: Negative for uses accessory muscles GI non-distended Extremity General Extremity: Negative for edema Skin Skin Narrative: abd incision, no redness ID ID: Route of nutrition/ use of supplements: [] Nutritional Intake: [] IV Site: [] Wills Catheter: [] Assessment & Plan Assessment/Plan (1) Intra-abdominal abscess: (2) Appendicitis with perforation: PLAN: On vanc/naheed since 10/11, surg cxs with medrano-S ecoli and anaerobes. Last surgery was 10/09. Wbc normalized and is feeling better. Abd closure today. Will stop abx today. CT showed improvement in fluid collection. Will follow as needed, corazon Taveras (3) Postoperative wound infection:
[2021-10-21] MEDS: 0.9% Saline Lock 10 ML Syringe IV ×2 (13:32→21:23)
[2021-10-21 15:00] VITALS: BP 120/74; PULSE 94; RESP 18; TEMP 36.5; O2SAT 96
--- NOTE | 2021-10-21 15:23 | CASEMGMT ---
Social Work Note RAVEN placed a call to [facility] with TCU, TCU would have a bed available Thursday. SW updated physician. SW in to speak with pt and pt's Briana. SW spoke with pt and Briana about discharge plans. SW spoke with pt and Briana about SNF. SW educated pt and Briana on TCU and that they would have a bed available for pt Thursday. Pt states he would like to talk about it with his and will let this worker know tomorrow. Pt states it will likely be yes to TCU. SW informed pt that pt will remain on TCU list and bed will be on hold for pt. Pt and Briana state understanding. Plan: TCU Thursday Kayla Benrard RISK ASSESSMENT ANALYST, WIG COMBER
[2021-10-21 21:00] VITALS: BP 173/90; PULSE 106; RESP 18; TEMP 37.1; O2SAT 94
[2021-10-21] MEDS: 0.9% Normal Saline 1,000 ML 25 ML IV (21:32)
[2021-10-21 22:00] VITALS: O2SAT 94
[2021-10-22] MEDS: HYDROmorphone 0.5 MG/0.5 ML SYRINGE IV ×4 (01:51→19:42)
[2021-10-22] MEDS: 0.9% Saline Lock 10 ML Syringe IV ×5 (01:51→19:42)
[2021-10-22 04:00] VITALS: BP 159/92; PULSE 95; RESP 16; TEMP 36.9; O2SAT 94
[2021-10-22] MEDS: oxyCODONE 5 MG Tablet PO ×2 (04:08→22:21)
[2021-10-22] MEDS: Heparin Injection (Vial) 5,000 UNIT/ML VIAL 5000 UNIT SC ×3 (06:14→19:48)
--- NOTE | 2021-10-22 08:07 | PCM.PN.SRG ---
Subjective Subjective Patient seen and examined during AM rounds. He denies any acute events overnight. Still tolerating regular diet without any nausea or vomiting. Spending most of his day up out of bed in a chair. Eagerly awaiting transition to TCU tomorrow. Objective Data Objective Data Vital Signs: Vital Signs Temp Pulse Resp BP Pulse Ox 98.4 F 95 16 159/92 H 94 10/22/21 04:00 10/22/21 04:00 10/22/21 04:00 10/22/21 04:00 10/22/21 04:00 Oxygen Flow Rate (L/min) [At 2 REST with Oxygen] Oxygen Flow Rate (L/min) 4 Oxygen Delivery Method Room Air Weight: 247 lb 5.738 oz Body Mass Index (BMI) 29.0 Intake & Output: Intake and Output for Last 24 Hours 10/20/21 10/21/21 10/22/21 23:59 23:59 23:59 Intake Total 3595 / 4095 2940.00 / 2940.00 Output Total 2505 / 3505 2500 / 3350 1350 / 1350 Balance 1090 / 590 440.00 / -410.00 -1350 / -1350 Medical Nutrition Assessment Dietitian: Malnutrition Criteria Met Start: 10/10/21 10:28 Freq: Status: Active Protocol: Document 10/18/21 12:25 (Rec: 10/18/21 12:25 [id number]) Nutrition Malnutrition Evidence of Malnutrition Exists Yes Malnutrition (severe): Acute Illness/Injury Evidenced By Suboptimal Energy Intake ( Severe),Weight Loss (Severe) Intake Problem Inadequate Oral Intake Etiology related to altered GI function s/p surgery Signs/Symptoms as evidenced by NPO, estimated energy intake meeting <50% of estimated nutritional needs > 5 days Status Active Problem Clinical Problem Acute Disease or Injury Related Malnutrition Etiology severe, acute malnutrition r/t inadequate energy intake w/ increased energy needs d/t multiple abd surgeries, wound, infection Signs/Symptoms as evidenced by unintentional wt loss of 17.9#/7.1% <1 month , estimated energy intake from PO diet/TPN meeting <75% of estimated energy needs >1 week Status Active Problem Recommendation Dietitian Recommendations/Changes 1) For Day #19 TPN: 1L 8%AA/14 % dextrose solution w/ MVI/ electrolytes/trace minerals to provide 798 calories, 80 g protein/day. 2) Recommend continue transitional diet as tolerated ; continue ensure enlive 120mL 4x/day as PO diet advanced. Wean TPN as PO intake improves . 3) Daily wts. Monitoring of labs. Lab / Micro Data Result Diagrams: 10/21/21 06:05 10/21/21 06:05 Micro: Microbiology 10/09/21 Unknown Tissue - Abdominal Gram Stain - Final 10/09/21 Unknown Tissue - Abdominal Wound Culture - Final Escherichia coli 10/09/21 Unknown Tissue - Abdominal Anaerobic Culture - Final Prevotella melaninogenica Bacteroides thetaiotaomicron Anaerobic cocci 10/07/21 07:50 Incision/Surgical Site Gram Stain - Final 10/07/21 07:50 Incision/Surgical Site Wound Culture - Final Escherichia coli 10/07/21 07:50 Incision/Surgical Site Anaerobic Culture - Final Bacteroides caccae Bacteroides thetaiotaomicron Clostridium group 09/30/21 13:05 Mario Samuel Drainage Gram Stain - Final 09/30/21 13:05 Mario Samuel Drainage Body Fluid Culture - Final Escherichia coli 09/30/21 13:05 Mario Samuel Drainage Anaerobic Culture - Final Bacteroides thetaiotaomicron Clostridium ramosum 09/29/21 05:45 Stool Ova and Parasites - Final 10/01/21 17:10 Nasal Secretion SARS-CoV-2 Antigen (Rapid) - Final 09/29/21 05:45 Stool Enteric Bacteriology - Final 09/28/21 15:40 Stool Stool Lactoferrin - Final 09/28/21 15:40 Stool C. difficile DNA Amplification - Final 09/21/21 01:18 Nasal Secretion SARS-CoV-2 Antigen (Rapid) - Final Physical Exam Const oriented x3 and no apparent distress GI GI Narrative: Nondistended, soft, nontender to palpation. Both the patient's prior drain sites are now closed. Midline laparotomy with some hyperemia to the skin on both sides of the wound particularly along the inferior aspect of the wound. There is some moderately thick yellow drainage from the wound at the level of the umbilicus but there was some residual Adaptic in the wound base. Assessment & Plan Assessment/Plan (1) S/P laparoscopic appendectomy: PLAN: Patient required return to the OR on 09/24/2021 after pathology reported they did not identify appendix in the patient's surgical specimen from 09/21/2021. Therefore, patient is postoperative day 28 from hand-assisted laparoscopic appendectomy with drain placement. Unfortunately, patient developed evidence of a controlled perforation from the terminal ileum?per drain study 10/01/2021. He was thus n.p.o. and initiated TPN. He was then taken for open ileocecectomy on 10/02/2021 (2) Appendicitis with perforation: PLAN: Status post above operative course (3) Perforation of small intestine: PLAN: Patient postoperative day 20 from open ileocecectomy. Patient was held NPO after character of wound drainage became more malodorous and cloudy. Bedside wound exploration performed but not well tolerated. Did find evidence of necrotic fascia and patient was posted for operative exploration. Underwent re-exploratory laparotomy on 10/09/2021 with abdominal washout, drain placement, fascial debridement, and abdominal wall closure with placement of retention sutures. (4) Intra-abdominal abscess: PLAN: s/p ab washout with additional drain placement 10/09/21 (5) Postoperative wound infection: PLAN: s/p fascial debridement and ab wall closure 10/09/21 (skin left open) Patient remains afebrile. Labs not repeated given normal CBC for the last several days. Tolerating regular diet. Continues to have ongoing bowel function. KELLY drain sites now completely closed. Yesterday undertook partial closure of patient's laparotomy wound by secondary intention. Overall, healing appearance to patient's laparotomy wound with no further signs of infection. Per ID, last day for antibiotics was 10/21/2021. We will continue working on patient's post hospital disposition. Neuro: As needed Dilaudid?decreased to 0.5 mg every 3 hours as needed postoperative pain. Oxycodone 5 mg every 6 hours as needed for pain. Pulm/CV: Supplemental O2 as needed; currently on room air, DuoNebs every 6 hours while awake, telemetry FEN/GI: Prior hypernatremia has resolved. Continue soft, low residue diet today and continue Ensure and life supplements 3 times daily. TPN discontinued 10/20/2021. : Continue application of nystatin powder to groin yeast infection. UA negative (10/15/2021). Heme/ID: Hemoglobin stable, thrombocytosis improved, white count within normal limits as is CBC 10/21/2021. Afebrile. Meropenem and Vanco stopped as of 10/21/2021. Continue to follow clinically Endo: Every 6 hour glucose checks discontinued Proph: SCDs, subcu heparin every 8 hours, patient encouraged to ambulate and be up and out of bed in a chair as much as possible Dispo: Planning for dispo to TCU tomorrow 10/23/2021 Charges/Coding Visit Charges Inpatient E&M: 98515 Subs Hosp L2
[2021-10-22 08:10] VITALS: BP 134/89; PULSE 90; RESP 16; TEMP 36.8; O2SAT 92
[2021-10-22] MEDS: Furosemide 20 MG/2 ML VIAL IV (08:14)
[2021-10-22] MEDS: Na Biphos/Potassium Phosphate PACKET 1 PACKET PO (09:59)
[2021-10-22] MEDS: Magnesium Chloride 64 MG Delay Rel.Tablet 128 MG PO (09:59)
[2021-10-22 10:36] VITALS: O2SAT 97
--- NOTE | 2021-10-22 14:30 | CASEMGMT ---
Social Work Note SW spoke with [facility] in TCU, TCU can accept pt tomorrow. SW attempted to speak with pt. Pt soundly sleeping. Plan: TCU tomorrow Kayla Bernard ORDER TAKER, LINER INSERTER
[2021-10-22] MEDS: Menthol/Lanolin/Calamine/Znox 113 GM Tube 1 APPLIC TOPICAL ×2 (14:39→19:41)
[2021-10-22 14:42] VITALS: BP 119/72; PULSE 89; RESP 16; TEMP 36.8; O2SAT 92
[2021-10-22 19:38] VITALS: BP 108/71; PULSE 98; RESP 20; TEMP 36.9; O2SAT 93
--- NOTE | 2021-10-22 22:02 | NURSING ---
PT RESTING QUIETLY IN BED, EYES CLOSED, RESP EASY
[2021-10-23] MEDS: HYDROmorphone 0.5 MG/0.5 ML SYRINGE IV ×3 (01:54→14:36)
[2021-10-23] MEDS: 0.9% Saline Lock 10 ML Syringe IV (01:54)
[2021-10-23 01:58] VITALS: BP 147/79; PULSE 97; RESP 18; TEMP 36.7; O2SAT 90
[2021-10-23] MEDS: oxyCODONE 5 MG Tablet PO ×2 (04:38→11:05)
[2021-10-23] MEDS: Heparin Injection (Vial) 5,000 UNIT/ML VIAL 5000 UNIT SC ×2 (04:40→14:36)
[2021-10-23] MEDS: Menthol/Lanolin/Calamine/Znox 113 GM Tube 1 APPLIC TOPICAL (04:43)
[2021-10-23 06:14] LABS: Absolute Lymphocyte Count 1.13 X10^3/uL (0.83-4.51); Absolute Neutrophil Count 5.8 X10^3/uL (2.0-7.7); Basophil# 0.04 X10^3/uL; Basophil% 0.5 % (0-1); Eosinophil# 0.08 X10^3/uL; Hematocrit 27.6 % (40-54); Hemoglobin 9.2 g/dL (13.0-16.5); Lymphocyte # 1.13 X10^3/ul (0.83-4.51); Lymphocyte % 13.9 % (19-41); Mean Corp Hgb Conc 33.3 g/dL (32-36); Mean Corpuscular Hgb 30.7 pg (27.0-32.0); Mean Platelet Vol. 9.4 fl (6.2-12.0); Monocyte# 1.02 X10^3/uL; Monocyte% 12.6 % (0-10); NRBC Flagged by Analyzer 0 % (0-5); Neutrophil # 5.81 X10^3/uL (2.7-7.7); Neutrophil % 71.6 % (47-70); Platelet Count 371 K/mm3 (150-450); RBC Distribution Width CV 14.6 % (11.6-14.6); RBC Distribution Width SD 49.1 fl (35.1-43.9); White Blood Count 8.1 K/mm3 (4.4-11.0)
[2021-10-23 06:47] LABS: ALB/GLOB Ratio 0.4 RATIO (0.9-2.4); AST(SGOT) 23 U/L (15-37); Alanine Aminotransfer ALT/SGPT 31 U/L (16-61); Albumin, Serum 1.8 g/dL (3.2-5.0); Alkaline Phosphatase 120 U/L (45-117); Anion Gap 3 (5-15); BUN 11 mg/dL (7-18); BUN/Creat Ratio 21.2 RATIO (10-20); Chloride 101 mmol/L (98-107); Creatinine, Serum 0.52 mg/dL (0.70-1.30); EST Glomerular Filtration Rate 172 mL/min (>60); Est Glom Filt Rate - Afr Amer 208 mL/min (>60); Estimated Creatinine Clearance 180.83 ml/min; Globulin 4.5 g/dL (2.2-4.2); Glucose 111 mg/dL (74-106); Magnesium 2.4 mg/dL (1.6-2.6); Phosphorus 3.5 mg/dL (2.5-4.9); Potassium 3.9 mmol/L (3.5-5.1); Protein, Total 6.3 g/dL (6.4-8.2); Sodium Level 136 mmol/L (136-145)
[2021-10-23 08:42] VITALS: BP 133/82; PULSE 89; RESP 18; TEMP 36.9; O2SAT 92
--- NOTE | 2021-10-23 10:02 | PCM.PN.SRG ---
Subjective Subjective Patient seen and examined during AM rounds. He denies any acute events overnight. He is resting well when I arrived to the room. Objective Data Objective Data Vital Signs: Vital Signs Temp Pulse Resp BP Pulse Ox 98.4 F 89 18 133/82 H 92 10/23/21 08:42 10/23/21 08:42 10/23/21 08:42 10/23/21 08:42 10/23/21 08:42 Oxygen Flow Rate (L/min) [At 2 REST with Oxygen] Oxygen Flow Rate (L/min) 4 Oxygen Delivery Method Room Air Weight: 243 lb 2 oz Body Mass Index (BMI) 29.0 Intake & Output: Intake and Output for Last 24 Hours 10/21/21 10/22/21 10/23/21 23:59 23:59 23:59 Intake Total 2940.00 / 2940.00 353.33 / 353.33 200 / 200 Output Total 2500 / 3350 2425 / 2425 375 / 375 Balance 440.00 / -410.00 -2071.67 / -2071.67 -175 / -175 Medical Nutrition Assessment Dietitian: Malnutrition Criteria Met Start: 10/10/21 10:28 Freq: Status: Active Protocol: Document 10/18/21 12:25 AG (Rec: 10/18/21 12:25 AG [id number]) Nutrition Malnutrition Evidence of Malnutrition Exists Yes Malnutrition (severe): Acute Illness/Injury Evidenced By Suboptimal Energy Intake ( Severe),Weight Loss (Severe) Intake Problem Inadequate Oral Intake Etiology related to altered GI function s/p surgery Signs/Symptoms as evidenced by NPO, estimated energy intake meeting <50% of estimated nutritional needs > 5 days Status Active Problem Clinical Problem Acute Disease or Injury Related Malnutrition Etiology severe, acute malnutrition r/t inadequate energy intake w/ increased energy needs d/t multiple abd surgeries, wound, infection Signs/Symptoms as evidenced by unintentional wt loss of 17.9#/7.1% <1 month , estimated energy intake from PO diet/TPN meeting <75% of estimated energy needs >1 week Status Active Problem Recommendation Dietitian Recommendations/Changes 1) For Day #19 TPN: 1L 8%AA/14 % dextrose solution w/ MVI/ electrolytes/trace minerals to provide 798 calories, 80 g protein/day. 2) Recommend continue transitional diet as tolerated ; continue ensure enlive 120mL 4x/day as PO diet advanced. Wean TPN as PO intake improves . 3) Daily wts. Monitoring of labs. Lab / Micro Data Result Diagrams: 10/23/21 06:07 10/23/21 06:07 Labs: Laboratory Results - last 24 hr 10/23/21 06:07: WBC 8.1, RBC 3.00 L, Hgb 9.2 L, Hct 27.6 L, MCV 92.0, MCH 30.7, MCHC 33.3, RDW Std Deviation 49.1 H, RDW Coeff of Ar 14.6, Plt Count 371, MPV 9.4, Immature Gran % (Auto) 0.400, Neut % (Auto) 71.6 H, Lymph % (Auto) 13.9 L, [place] % (Auto) 12.6 H, Eos % (Auto) 1.0, Baso % (Auto) 0.5, Absolute Neuts (auto) 5.8, Absolute Lymphs (auto) 1.13, Nucleated RBC % 0 10/23/21 06:07: Sodium 136, Potassium 3.9, Chloride 101, Carbon Dioxide 32.0, Anion Gap 3 L, BUN 11, Creatinine 0.52 L, Estim Creat Clear Calc 180.83, Est GFR (MDRD) Af Amer 208, Est GFR (MDRD) Non-Af 172, BUN/Creatinine Ratio 21.2 H, Glucose 111 H, Calcium 8.0 L, Phosphorus 3.5, Magnesium 2.4, Total Bilirubin 0.30, AST 23, ALT 31, Alkaline Phosphatase 120 H, Total Protein 6.3 L, Albumin 1.8 L, Globulin 4.5 H, Albumin/Globulin Ratio 0.4 L Micro: Microbiology 10/09/21 Unknown Tissue - Abdominal Gram Stain - Final 10/09/21 Unknown Tissue - Abdominal Wound Culture - Final Escherichia coli 10/09/21 Unknown Tissue - Abdominal Anaerobic Culture - Final Prevotella melaninogenica Bacteroides thetaiotaomicron Anaerobic cocci 10/07/21 07:50 Incision/Surgical Site Gram Stain - Final 10/07/21 07:50 Incision/Surgical Site Wound Culture - Final Escherichia coli 10/07/21 07:50 Incision/Surgical Site Anaerobic Culture - Final Bacteroides caccae Bacteroides thetaiotaomicron Clostridium group 09/30/21 13:05 Mario Samuel Drainage Gram Stain - Final 09/30/21 13:05 Mario Samuel Drainage Body Fluid Culture - Final Escherichia coli 09/30/21 13:05 Mario Samuel Drainage Anaerobic Culture - Final Bacteroides thetaiotaomicron Clostridium ramosum 09/29/21 05:45 Stool Ova and Parasites - Final 10/01/21 17:10 Nasal Secretion SARS-CoV-2 Antigen (Rapid) - Final 09/29/21 05:45 Stool Enteric Bacteriology - Final 09/28/21 15:40 Stool Stool Lactoferrin - Final 09/28/21 15:40 Stool C. difficile DNA Amplification - Final 09/21/21 01:18 Nasal Secretion SARS-CoV-2 Antigen (Rapid) - Final Physical Exam Const no apparent distress Constitutional Narrative: No apparent distress initially, however, after we take down his wound dressings he expresses some frustrations GI GI Narrative: Mildly distended, soft, tender to palpation about laparotomy. Dressings removed on the laparotomy there is some yellow/brown milky drainage to the overlying absorptive pad as well as along the luiza at the level of the umbilicus. There is some erythema of the skin at this location as well. Therefore, a few the patient's nylon sutures that had been used to previously reapproximate the wound by secondary intention were removed. Wound base appeared largely clean and viable with only minimal fat necrosis. Assessment & Plan Assessment/Plan (1) S/P laparoscopic appendectomy: PLAN: Patient required return to the OR on 09/24/2021 after pathology reported they did not identify appendix in the patient's surgical specimen from 09/21/2021. Therefore, patient is postoperative day 29 from hand-assisted laparoscopic appendectomy with drain placement. Unfortunately, patient developed evidence of a controlled perforation from the terminal ileum?per drain study 10/01/2021. He was thus n.p.o. and initiated TPN. He was then taken for open ileocecectomy on 10/02/2021 (2) Appendicitis with perforation: PLAN: Status post above operative course (3) Perforation of small intestine: PLAN: Patient postoperative day 21 from open ileocecectomy. Patient was held NPO after character of wound drainage became more malodorous and cloudy. Bedside wound exploration performed but not well tolerated. Did find evidence of necrotic fascia and patient was posted for operative exploration. Underwent re-exploratory laparotomy on 10/09/2021 with abdominal washout, drain placement, fascial debridement, and abdominal wall closure with placement of retention sutures. (4) Intra-abdominal abscess: PLAN: s/p ab washout with additional drain placement 10/09/21 (5) Postoperative wound infection: PLAN: s/p fascial debridement and ab wall closure 10/09/21 (skin left open) Patient remains afebrile. Labs were repeated today and largely all within normal limits or stable. Tolerating regular diet. Continues to have ongoing bowel function. KELLY drain sites now completely closed. Unfortunately, there is some new milky drainage from the midportion of the patient's laparotomy so the sutures that had been placed 2 days ago for approximation of the wound were removed (all but 2). With wound exploration there was some mild amount of fat necrosis, but no large pools of drainage or evidence of fascial infection. A wound culture was obtained by swabbing the base of the wound. The wound was repacked with Dakin's?soaked gauzes with the intent of trying to break down any present biofilms. Per ID, last day for antibiotics was 10/21/2021. We will continue working on patient's post hospital disposition. Neuro: As needed Dilaudid?decreased to 0.5 mg every 3 hours as needed postoperative pain. Oxycodone 5 mg every 6 hours as needed for pain. Pulm/CV: Supplemental O2 as needed; currently on room air, DuoNebs every 6 hours while awake, telemetry FEN/GI: Electrolytes within normal limits today continue soft, low residue diet today and continue Ensure and life supplements 3 times daily. TPN discontinued 10/20/2021. : Continue application of nystatin powder to groin yeast infection. UA negative (10/15/2021). Heme/ID: Hemoglobin stable, thrombocytosis resolved, white count within normal limits. Afebrile. Meropenem and Vanco stopped as of 10/21/2021. Follow-up wound cultures from today. Endo: Every 6 hour glucose checks discontinued Proph: SCDs, subcu heparin every 8 hours, patient encouraged to ambulate and be up and out of bed in a chair as much as possible Dispo: Planning for dispo to TCU today Charges/Coding Visit Charges Inpatient E&M: 51209 Subs Hosp L2
--- NOTE | 2021-10-23 10:07 | PCM.TXEXTCAR ---
Diet 10/18/21 11:29 Diet: Transitional Type of Dietary Supplement:: Is pt able to select menu?: Yes Diet Comments: no carbonation Wound(s) ABDOMEN: Wound Type: surgical incision with retention sutures Dressing Change: Dakins moistened gauze (Changed BID by Dr. Taveras and/or Leti) Therapies Weight Bearing: Full weight bearing Physical Therapy: Eval and Treat Occupational Therapy: Eval and Treat Problem/Diagnosis (1) S/P laparoscopic appendectomy: Status: Acute (2) Appendicitis with perforation: Status: Acute (3) Perforation of small intestine: Status: Acute (4) Intra-abdominal abscess: Status: Acute (5) Postoperative wound infection: Status: Acute Allergies/Procedures Done in Hospital Allergies acetaminophen Adverse Reaction (Verified 09/20/21 22:47) Nausea/Vom/Diarrhea fentanyl [From Duragesic] Adverse Reaction (Verified 09/20/21 22:47) Nausea/Vom/Diarrhea metoclopramide HCl [From Reglan] Adverse Reaction (Verified 09/20/21 22:47) anxiety nabumetone [From Relafen] Adverse Reaction (Verified 09/20/21 22:47) Nausea/Vom/Diarrhea Type of Care/Length of Stay Estimated LOS: Convalescent Care Less Than 30 days Type of Care Needed: Skilled Rehab Potential: Good Prognosis: Good Additional Orders/Day of Discharge Additional Orders: Patient has PICC line in place. Wound culture was obtained today, 10/23. Awaiting results prior to PICC line removal. May be needed for future antibiotics. Please flush PICC line once per shift with 10 mL saline. Day of Discharge: 10/23/21 Dietary and Speech Recommendations Dietitian Recommendations/Changes: Continue transitional diet as tolerated; recommend advance to regular as tolerated. Continue ensure enlive 120mL 4x/day as PO diet advanced. Discharge Plan Admission Admit Date/Time: 09/21/21 10:12 Primary Reason for Your Visit: Acute perforated appendicitis. Post-operative wound infection Attending Provider: Nathan Taveras Primary Care Provider: Linda Dominguez Consulting Providers: Júnior Lopez Discharge Orders/Prescriptions Prescriptions: New albuterol sulfate 2.5 mg /3 mL (0.083 %) Solution For Nebulization 2.5 mg inhalation Q2H PRN PRN (Reason: Wheezing Or Cough) Qty: 0 RF: 0 ibuprofen 400 mg Tablet 400 mg PO Q6H PRN PRN (Reason: Pain Score 1-5) Qty: 0 RF: 0 Ensure Enlive 0.08 gram-1.5 kcal/mL Liquid 120 ml PO 4X/DAY Qty: 0 RF: 0 nystatin [Nyamyc] 100,000 unit/gram Powder 1 applic topical BID Qty: 0 RF: 0 oxycodone 5 mg Tablet 5 mg PO Q6H PRN PRN (Reason: Pain Score 6-10) Qty: 0 RF: 0 potassium, sodium phosphates 280-160-250 mg Powder In Packet 1 packet PO DAILY Qty: 0 RF: 0 Mag 64 64 mg Tablet,Delayed Release (Dr/Ec) 128 mg PO DAILY Qty: 0 RF: 0 menthol-zinc oxide [Calmoseptine] 0.44-20.6 % Ointment 1 applic topical TID Qty: 0 RF: 0 sodium chloride 0.9 % (flush) [BD PosiFlush Normal Saline 0.9] Syringe 10 - 40 ml IV UD PRN (Reason: Saline Flush) Qty: 0 RF: 0 Continued cyclobenzaprine 10 mg tablet 10 mg PO BID PRN (Reason: Pain) RF: 0 prazosin 1 mg Capsule 1 mg PO DAILY RF: 0 Referrals / Follow Up: Linda Dominguez MD [Primary Care Provider] - Disposition Disposition (needs filled in before D/C Order can be placed): [facility]
--- NOTE | 2021-10-23 10:43 | PCM.DC.SUM ---
Providers Date of Admission: 09/21/21 Primary Care Physician: Dr. Linda Dominguez MD Consultations 10/11/21 06:32 Consult: Onc/Wound/certified fraud examiner Routine Comment: Reason for Consult:: abdominal wound 10/11/21 16:38 Consult: Infectious Disease Routine Consulting Provider: Júnior Lopze Reason for Consult: Complicated abdominal/abdominal wall infection EMERGENT Consult: No MD Notified: Yes Date Notified: 10/11/21 Time Notified: 16:38 Method of Notification: Verbal Reason For Visit: ACUTE APPENDICITIS Diagnosis Discharge Diagnosis (1) S/P laparoscopic appendectomy: Status: Acute Code(s): Z90.49 - Acquired absence of other specified parts of digestive tract (2) Appendicitis with perforation: Status: Acute Code(s): K35.32 - Acute appendicitis with perforation and localized peritonitis, without abscess (3) Perforation of small intestine: Status: Acute Code(s): K63.1 - Perforation of intestine (nontraumatic) (4) Intra-abdominal abscess: Status: Acute Code(s): K65.1 - Peritoneal abscess (5) Postoperative wound infection: Status: Acute Code(s): T81.49XA - Infection following a procedure, other surgical site, initial encounter Medications at Discharge Home Medications cyclobenzaprine 10 mg PO BID PRN 09/21/21 prazosin 1 mg PO DAILY 09/25/21 albuterol sulfate 2.5 mg INHALATION Q2H PRN PRN #0 ml 10/23/21 food supplemt, lactose-reduced [Ensure Enlive] 120 ml PO 4X/DAY 10/23/21 ibuprofen 400 mg PO Q6H PRN PRN #0 tab 10/23/21 magnesium chloride [Mag 64] 128 mg PO DAILY 10/23/21 menthol-zinc oxide [Calmoseptine] 1 applic TOPICAL TID 10/23/21 nystatin [Nyamyc] 1 applic TOPICAL BID 10/23/21 oxycodone 5 mg PO Q6H PRN PRN #0 tab 10/23/21 potassium, sodium phosphates 1 packet PO DAILY 10/23/21 sodium chloride 0.9 % (flush) [BD PosiFlush Normal Saline 0.9] 10 - 40 ml IV UD PRN #0 ml 10/23/21 Hospital Course Operations appendectomy and colectomy (Patient underwent ileocecectomy) Procedures PICC line placement (For TPN and antibiotic administration) Summary of Care Provided Hospital Course: This is a 61-year-old male, with a history of complicated spine surgery and MRSA infection, who presented to [facility] ER on 09/21/2021 with 3-day complaint of acute onset abdominal pain and evidence of perforated appendicitis. He went to the OR of the same day for a laparoscopic appendectomy. I also found evidence of a possible small bowel diverticulum and believed I had performed a stapled diverticulectomy. Unfortunately, patient required return to the OR on 09/24/2021 after pathology reported they did not identify an appendix or small bowel diverticulum in the patient's surgical specimen from 09/21/2021. A hand-assisted laparoscopic appendectomy with drain placement was performed. Postoperatively, the patient experienced an expected postoperative ileus, but gradually this improved and his diet was advanced. Patient's labs were trended during this clinical interval and his white count was noted to increase. Patient developed evidence of a controlled perforation from the terminal ileum?per CT drain study 10/01/2021. He was thus made n.p.o. and initiated on TPN. He was then taken for open ileocecectomy with drain placement on 10/02/2021. Again, he experienced a postoperative ileus, but his bowel function gradually returned and his diet was slowly advanced. 7 days later, patient was held NPO after character of wound drainage became more malodorous and cloudy. Bedside wound exploration performed but not well tolerated. Despite the patient's intolerance, I did find evidence of necrotic fascia and patient was posted for operative exploration. He underwent re-exploratory laparotomy on 10/09/2021 with abdominal washout, drain placement, fascial debridement, and abdominal wall closure with placement of retention sutures. Yet again, he experienced a postoperative ileus and was maintained with TPN nutrition. Since that operative date, he has been admitted with 2-3 times daily abdominal wound changes. He did require further, limited debridement of his wound and ultimately there was additional fascial loss/partial dehiscence. Infectious disease was also involved given the patient's protracted course and concern for deep space infection with sensitive microbes per culture, but without appropriate clinical response. He was thus initiated on broad-spectrum antibiotics with meropenem and vancomycin. Ultimately, patient's bowel function returned and he was advanced to a soft, low residue diet with Ensure supplementation. On 10/15/2021 patient had some increase of his white count and low-grade fevers. Given his antecedent history, a repeat CT of the abdomen pelvis was performed. This identified a 2 x 4 cm fluid collection in the right upper quadrant near one of his postsurgical drains. Percutaneous drainage was discussed with radiology, however this was felt to be potentially risky and of low yield since a drain could not be reliably left. Therefore, the procedure was not undertaken and by the next day the patient had resolution of his white count/low-grade fevers. TPN was stopped 10/20/2021. Broad-spectrum IV antibiotics were stopped 10/21/2021 after demonstrating resolution of his leukocytosis and and improved wound appearance. On 10/21/2021, I also undertook partial closure of the patient's laparotomy by secondary intention at bedside using nylon sutures. However, this morning (10/23/2021) patient had increased erythema of his wound and some concerning drainage so some of these sutures were removed and the wound was reevaluated. This reevaluation did include repeat wound culture. I also reinitiated the use of Dakin soaked gauzes to attempt to address any biofilm that may be present in the wound. Given that the patient otherwise appeared clinically well?and had normal labs with repeat CBC?I approved transfer to TCU for ongoing wound care. Physical Exam Const alert and oriented x3 General Appearance: cooperative GI GI Narrative: Mildly distended, soft, appropriately tender to palpation about laparotomy. Laparotomy wound as described in progress note?but with stable appearance and no evidence of ongoing infection Medical Records Data Medical Nutrition Assessment Dietitian: Malnutrition Criteria Met Start: 10/10/21 10:28 Freq: Status: Active Protocol: Document 10/18/21 12:25 AG (Rec: 10/18/21 12:25 [id number]) Nutrition Malnutrition Evidence of Malnutrition Exists Yes Malnutrition (severe): Acute Illness/Injury Evidenced By Suboptimal Energy Intake ( Severe),Weight Loss (Severe) Intake Problem Inadequate Oral Intake Etiology related to altered GI function s/p surgery Signs/Symptoms as evidenced by NPO, estimated energy intake meeting <50% of estimated nutritional needs > 5 days Status Active Problem Clinical Problem Acute Disease or Injury Related Malnutrition Etiology severe, acute malnutrition r/t inadequate energy intake w/ increased energy needs d/t multiple abd surgeries, wound, infection Signs/Symptoms as evidenced by unintentional wt loss of 17.9#/7.1% <1 month , estimated energy intake from PO diet/TPN meeting <75% of estimated energy needs >1 week Status Active Problem Recommendation Dietitian Recommendations/Changes 1) For Day #19 TPN: 1L 8%AA/14 % dextrose solution w/ MVI/ electrolytes/trace minerals to provide 798 calories, 80 g protein/day. 2) Recommend continue transitional diet as tolerated ; continue ensure enlive 120mL 4x/day as PO diet advanced. Wean TPN as PO intake improves . 3) Daily wts. Monitoring of labs. Weight / BMI Weight Weight: 243 lb 2 oz Body Mass Index (BMI) 29.0 ABG / Lab / Microbiology Data Result Diagrams: 10/23/21 06:07 10/23/21 06:07 Laboratory: Laboratory Results - last 24 hr 10/23/21 06:07: WBC 8.1, RBC 3.00 L, Hgb 9.2 L, Hct 27.6 L, MCV 92.0, MCH 30.7, MCHC 33.3, RDW Std Deviation 49.1 H, RDW Coeff of Ar 14.6, Plt Count 371, MPV 9.4, Immature Gran % (Auto) 0.400, Neut % (Auto) 71.6 H, Lymph % (Auto) 13.9 L, [place] % (Auto) 12.6 H, Eos % (Auto) 1.0, Baso % (Auto) 0.5, Absolute Neuts (auto) 5.8, Absolute Lymphs (auto) 1.13, Nucleated RBC % 0 10/23/21 06:07: Sodium 136, Potassium 3.9, Chloride 101, Carbon Dioxide 32.0, Anion Gap 3 L, BUN 11, Creatinine 0.52 L, Estim Creat Clear Calc 180.83, Est GFR (MDRD) Af Amer 208, Est GFR (MDRD) Non-Af 172, BUN/Creatinine Ratio 21.2 H, Glucose 111 H, Calcium 8.0 L, Phosphorus 3.5, Magnesium 2.4, Total Bilirubin 0.30, AST 23, ALT 31, Alkaline Phosphatase 120 H, Total Protein 6.3 L, Albumin 1.8 L, Globulin 4.5 H, Albumin/Globulin Ratio 0.4 L Microbiology: Microbiology 03/09/22 Unknown Tissue - Abdominal Gram Stain - Final 10/09/21 Unknown Tissue - Abdominal Wound Culture - Final Escherichia coli 10/09/21 Unknown Tissue - Abdominal Anaerobic Culture - Final Prevotella melaninogenica Bacteroides thetaiotaomicron Anaerobic cocci 10/07/21 07:50 Incision/Surgical Site Gram Stain - Final 10/07/21 07:50 Incision/Surgical Site Wound Culture - Final Escherichia coli 10/07/21 07:50 Incision/Surgical Site Anaerobic Culture - Final Bacteroides caccae Bacteroides thetaiotaomicron Clostridium group 09/30/21 13:05 Mario Samuel Drainage Gram Stain - Final 09/30/21 13:05 Mario Samuel Drainage Body Fluid Culture - Final Escherichia coli 09/30/21 13:05 Mario Samuel Drainage Anaerobic Culture - Final Bacteroides thetaiotaomicron Clostridium ramosum 09/29/21 05:45 Stool Ova and Parasites - Final 10/01/21 17:10 Nasal Secretion SARS-CoV-2 Antigen (Rapid) - Final 09/29/21 05:45 Stool Enteric Bacteriology - Final 09/28/21 15:40 Stool Stool Lactoferrin - Final 09/28/21 15:40 Stool C. difficile DNA Amplification - Final 09/21/21 01:18 Nasal Secretion SARS-CoV-2 Antigen (Rapid) - Final Meaningful Use Info Meaningful Use Diagnoses (Choose all that apply): None applicable Discharge Plan Admission Admit Date/Time: 09/21/21 10:12 Primary Reason for Your Visit: Acute perforated appendicitis. Post-operative wound infection Attending Provider: Nathan Taveras Primary Care Provider: Linda Dominguez Consulting Providers: Júnior Lopez Discharge Orders/Prescriptions Prescriptions: New albuterol sulfate 2.5 mg /3 mL (0.083 %) Solution For Nebulization 2.5 mg inhalation Q2H PRN PRN (Reason: Wheezing Or Cough) Qty: 0 RF: 0 ibuprofen 400 mg Tablet 400 mg PO Q6H PRN PRN (Reason: Pain Score 1-5) Qty: 0 RF: 0 oxycodone 5 mg Tablet 5 mg PO Q6H PRN PRN (Reason: Pain Score 6-10) Qty: 0 RF: 0 sodium chloride 0.9 % (flush) [BD PosiFlush Normal Saline 0.9] Syringe 10 - 40 ml IV UD PRN (Reason: Saline Flush) Qty: 0 RF: 0 Continued cyclobenzaprine 10 mg tablet 10 mg PO BID PRN (Reason: Pain) RF: 0 prazosin 1 mg Capsule 1 mg PO DAILY RF: 0 No Action nystatin [Nyamyc] 100,000 unit/gram powder 1 applic topical BID RF: 0 potassium, sodium phosphates 280-160-250 mg powder in packet 1 packet PO DAILY RF: 0 Mag 64 64 mg tablet,delayed release (DR/EC) 128 mg PO DAILY RF: 0 menthol-zinc oxide [Calmoseptine] 0.44-20.6 % ointment 1 applic topical TID RF: 0 Ensure Enlive 0.08 gram-1.5 kcal/mL liquid 120 ml PO 4X/DAY RF: 0 Referrals / Follow Up: Linda Dominguez MD [Primary Care Provider] - Disposition Disposition (needs filled in before D/C Order can be placed): Group Home Facility
[2021-10-23] MEDS: Na Biphos/Potassium Phosphate PACKET 1 PACKET PO (10:55)
[2021-10-23] MEDS: Magnesium Chloride 64 MG Delay Rel.Tablet 128 MG PO (10:55)
--- NOTE | 2021-10-23 12:51 | CASEMGMT ---
Social Work Note Pt to discharge to TCU today. SW in to speak with pt and pt's Briana. SW spoke with pt and Briana about TCU. Pt and Briana agreeable to TCU. SW informed pt that he will discharge to TCU today. Pt states understanding. SW placed a call to [place] with TCU and updated her that pt will discharge to TCU today. Plan: TCU today Kayla Bernard INSURANCE BILLER, DIRECTOR CONSUMER
[2021-10-23 14:22] VITALS: BP 127/84; PULSE 91; RESP 16; TEMP 36.8; O2SAT 92
--- NOTE | 2021-10-23 14:32 | CHAPLAIN ---
Type of Pastoral Visit ___ Initial Visit _x__ Follow-up Visit ___ On-call Visit ___ General Patient Visit ___ Spiritual Assessment ___ Family Conference ___ Bereavement ___ Rapid Response ___ Code Blue ___ Other (describe below) Pastoral Care Referral From _x__ Patient _x__ Family ___ Nurse ___ Physician ___ Financial Engineer ___ Product Development Consultant ___ Other (describe below) Sacrament/Intervention _x__ Active listening ___ Anointing ___ Bahai ___ Bereavement ___ Communion ___ Angelica exploration ___ ___ Life review _x__ Prayer ___ Reconciliation ___ Sacrament of Sick _x__ Supportive presence ___ Wedding ___ Other (describe below) Pastoral Comments patient and spouse in room and waiting for the time to transfer to TCU; pt is wanting to go home and hopes/plans for TCU admission to be brief; pt expresses thankfulness to internal communications intern for the recent weeks of support and prayers; pt requests future visits in TCU if possible;
== END 2021-10-23 16:14 | disposition skilled nursing facility (03) | DRG 329 ==
LOC: ED 09-21 01:23 → AC 09-21 01:48 → ED 09-21 02:06 → MS3 09-21 02:36
PROVIDERS: Anesthesiology; Internal Medicine Infectious Disease; Physician Assistant; Surgery; Admitting Provider Surgery; Emergency Provider Emergency Medicine; PCP Internal Medicine; Visit Provider Surgery
PROC: 0DTJ4ZZ Resection of Appendix, Percutaneous Endoscopic Approach (ICD-10-PCS; CPT 44970; principal; 2021-09-21 07:30)
PROC: 0DTH0ZZ Resection of Cecum, Open Approach (ICD-10-PCS; principal; 2021-10-02 10:10)
PROC: 0WJP0ZZ Inspection of Gastrointestinal Tract, Open Approach (ICD-10-PCS; CPT 49000; principal; 2021-10-09 14:40)
DX: K35.32 Acute appendicitis with perforation, localized peritonitis, and gangrene, without abscess (principal); E43 Unspecified severe protein-calorie malnutrition; K65.1 Peritoneal abscess; I96 Gangrene, not elsewhere classified; E87.0 Hyperosmolality and hypernatremia; T79.7XXA Traumatic subcutaneous emphysema, initial encounter; K56.7 Ileus, unspecified; J90 Pleural effusion, not elsewhere classified; T81.49XA Infection following a procedure, other surgical site, initial encounter; T81.31XA Disruption of external operation (surgical) wound, not elsewhere classified, initial encounter; E27.8 Other specified disorders of adrenal gland; E83.39 Other disorders of phosphorus metabolism; E86.0 Dehydration; B37.2 Candidiasis of skin and nail; G25.81 Restless legs syndrome; I10 Essential (primary) hypertension; K57.10 Diverticulosis of small intestine without perforation or abscess without bleeding; R19.7 Diarrhea, unspecified; M25.512 Pain in left shoulder; E87.6 Hypokalemia; Z86.14 Personal history of Methicillin resistant Staphylococcus aureus infection; Z79.899 Other long term (current) drug therapy; Z87.891 Personal history of nicotine dependence; K66.0 Peritoneal adhesions (postprocedural) (postinfection); R73.9 Hyperglycemia, unspecified; N28.1 Cyst of kidney, acquired; Z68.29 Body mass index [BMI] 29.0-29.9, adult
CPT/HCPCS: 20501; 36415; 36569; 71045; 74018; 74177; 77012; 80048; 80053; 80076; 80202; 81001; 82040; 82962; 83630; 83690; 83735; 84100; 84134; 84478; 84484; 85025; 85730; 87070; 87075; 87077; 87177; 87186; 87205; 87209; 87426; 87493; 87506; 88304; 88305; 88307; 93005; 94640; 94762; 97116; 97162; 97164; 97166; 97530; 97535; 97802; 97803; 99251; 99284; J2185; J7030; J7040; J7050; J7120; Q9967; A4216; C1760; G0463; J1940; J2405; J3490

== ENCOUNTER 2021-10-23 16:25 | Inpatient (IN) | payer MEDICARE, SELFPAY ==
[2021-10-23 16:30] VITALS: BP 142/74; PULSE 102; RESP 18; TEMP 37.1; O2SAT 92; BMI 28.8
[2021-10-23] MEDS: Menthol/Lanolin/Calamine/Znox 113 GM Tube 1 APPLIC TOPICAL (20:21)
[2021-10-23] MEDS: oxyCODONE 5 MG Tablet PO (20:32)
[2021-10-23 20:37] VITALS: BP 147/73; PULSE 105; RESP 18; TEMP 36.5; O2SAT 95
--- NOTE | 2021-10-23 20:55 | HP.PCM_ITS ---
HPI - General General Date of Admission: 10/23/21 HPI Narrative 09/20/2021 OLGA SANTOYO, is a 61 Male who presents to [facility] Emergency Department with abdominal pain. Right lower quadrant abdominal pain x 3 days, nausea/vomiting/diarrhea. Multiple episodes of bilious vomiting, multiple stools. Normal saline IV, Morphine, Zofran given. CT abdomen/pelvis showed appendicitis with microperforation. 09/21/2021 Admit to Hospital. IV Fluids, IV antibiotics. 09/21/2021 Dr. Taveras performed laparoscopic appendectomy, stable small bowel diverticulectomy. 09/22/2021 WBC decreased, continue IV antibiotics, pain control. 09/24/2021 Dr. Taveras performed hand assisted appendectomy. 10/02/2021 Dr. Taveras performed open ileocecectomy with primary anastomosis, adesionlysis, transverse abdominis plane block. 10/09/2021 Dr. Taveras performed wound exploration under MAC, Reexploratory laparotomy, abdominal washout with drain placement in right upper quadrant, Fascial devitalized subcutaneous tissue debrided, abdominal wall closure with retention sutures with interrupted prolene. 10/14/2021 Dr. Lopez Vancomycin, Meropenem for intrabdominal abscess secondary to perforated appendicitis, surgical cultures growing E. Coli, anaerobes. 10/17/2021 Patient frustrated, total antibiotics depending on drain output. Plan 7 to 10 days total, CT shows improvement in fluid collection. 10/18/2021 No sign of fasciitis. 10/21/2021 WBC normal, feels better, stop antibiotics. 10/21/2021 Abdominal wound closure per Dr. Taveras TPN, Transitional diet. 10/23/2021 Admit to TCU with debility, here for rehabilitation, strengthening, prior to discharge home. [facility] Medical History (Updated 10/23/21 @ 21:[address] Jonel Flores MD) Anemia Arthritis Back pain due to injury Chronic pain Difficulty balancing Hypertension Limb weakness MRSA (methicillin resistant staph aureus) culture positive neck/back pain Pancreatitis Shoulder pain Home Medications cyclobenzaprine 10 mg PO BID PRN 09/21/21 [History Last Taken Unknown] prazosin 1 mg PO DAILY 09/25/21 [History Last Taken Unknown] albuterol sulfate 2.5 mg INHALATION Q2H PRN PRN #0 ml 10/23/21 [Rx Last Taken Unknown] food supplemt, lactose-reduced [Ensure Enlive] 120 ml PO 4X/DAY 10/23/21 [History Last Taken Unknown] ibuprofen 400 mg PO Q6H PRN PRN #0 tab 10/23/21 [Rx Last Taken Unknown] magnesium chloride [Mag 64] 128 mg PO DAILY 10/23/21 [History Last Taken Unknown] menthol-zinc oxide [Calmoseptine] 1 applic TOPICAL TID 10/23/21 [History Last Taken Unknown] nystatin [Nyamyc] 1 applic TOPICAL BID 10/23/21 [History Last Taken Unknown] oxycodone 5 mg PO Q6H PRN PRN #0 tab 10/23/21 [Rx Last Taken Unknown] potassium, sodium phosphates 1 packet PO DAILY 10/23/21 [History Last Taken Unknown] sodium chloride 0.9 % (flush) [BD PosiFlush Normal Saline 0.9] 10 - 40 ml IV UD PRN #0 ml 10/23/21 [Rx Last Taken Unknown] Allergy/AdvReac Type Severity Reaction Status Date / Time acetaminophen AdvReac Nausea/Vom/ Verified 09/20/21 22:47 Diarrhea fentanyl [From Duragesic] AdvReac Nausea/Vom/ Verified 09/20/21 22:47 Diarrhea metoclopramide HCl AdvReac anxiety Verified 09/20/21 22:47 [From Reglan] nabumetone [From Relafen] AdvReac Nausea/Vom/ Verified 09/20/21 22:47 Diarrhea Family History Father Cancer Mother Parkinson disease Surgical History (Updated 10/23/21 @ 21:[address] Jonel Flores MD) History of hernia repair History of laparoscopic appendectomy Previous back surgery Social History (Updated 10/23/21 @ 21:[address] Jonel Flores MD) household members: spouse Smoking Status: Former smoker alcohol intake: never substance use type: does not use ROS Constitutional Constitutional: Denies chills, fever(s) or weight gain ENT HEENT: Denies headache(s), nasal congestion or nasal discharge Cardiovascular Cardiovascular: Denies chest pain or palpitations Respiratory/Chest Respiratory/Chest: Denies cough, excessive phlegm production or shortness of breath with exertion Gastrointestinal Gastrointestinal: Denies abdominal pain, nausea or vomiting Genitourinary Genitourinary: Denies dysuria Musculoskeletal Musculoskeletal: Denies joint pain or joint swelling Integumentary Integumentary: Denies rash or wounds Neurologic Neurologic: Denies focal weakness, numbness or tingling Psychiatric Psychiatric: Denies anxiety, auditory hallucinations, depression, homicidal ideation or suicidal ideation Vital Signs Vital Signs Vital Signs: 10/23/21 16:30 10/23/21 20:37 Temperature 98.7 F 97.7 F L Temperature Source Temporal Temporal Pulse Rate 102 H 105 H Respiratory Rate 18 18 Blood Pressure 142/74 H 147/73 H Blood Pressure Mean 96 97 Blood Pressure Source Monitor Monitor Blood Pressure Position Sitting Semi-Fowlers Blood Pressure Location Left Arm Left Arm Pulse Ox 92 95 Oxygen Delivery Method Room Air Room Air Weight Weight: 110.45 kg Body Mass Index (BMI) 28.8 Physical Exam Const alert General Appearance: cooperative HEENT normocephalic Eyes PERRL and EOMs intact bilaterally Neck supple, no JVD and no carotid bruits Resp normal respiratory effort, normal air movement and clear to auscultation bilaterally Cardio regular rate and regular rhythm GI normal to inspection, nondistended, normoactive bowel sounds, non-tender and non-distended GI Narrative: Abdominal wound dressed. Extremity normal capillary refill General Extremity: Negative for edema Skin no rashes or lesions noted General Skin Exam: no breakdown Neuro Neuro Narrative: Right hand pill rolling resting tremor. Psych affect normal Appearance: appropriate Assessment & Plan Assessment/Plan (1) Debility: (2) Appendicitis with perforation: (3) Perforation of small intestine: (4) Intra-abdominal abscess: (5) Essential tremor: (6) Pancreatitis: (7) Hypertension: (8) Chronic low back pain: PLAN: 61 year old male with below past medical history hospitalized with perforated appendicitis, status post multiple abdominal surgeries, complicated by intra-adominal abscess, admitted to TCU with debility, here for rehabilitation, strengthening, prior to discharge home with . * Debility - PT/OT. * Pain - Ibuprofen 400mg q6h prn pain (1-5), Oxycodone 5mg q6h prn pain (6-10). * Bowel - Miralax 17gm daily, Senna/colace 1 tablet bid, Dulcolax 10mg daily prn. * Adult immunization - Administer prevnar 20, fluzone, covid19 vaccine as appropriate. * DVT prophylaxis - HAS-BLED score 0 low risk of bleeding, Willian score 6 high risk of thromboembolism, overall risk medium, Rx Xarelto 10mg daily x 2 weeks. * Shortness of breath - Albuterol 2.5mg nebulized q2h prn. * Muscle spasm - Flexeril 10mg bid prn. * BPH - Doxazosin 1mg daily. * Nutrition - Ensure Enlive 120ml 4x/day. * Hypomagnesemia - Magnesium chloride 128mg daily. * Skin irritation - Calmoseptine topical tid. * Tinea Corporis - Nystatin topical bid. * Parkinson Disease - classic parkinsonian tremor, low threshold for trying dopaminergic agents, pending therapy evaluation.
[2021-10-24] MEDS: oxyCODONE 5 MG Tablet PO ×2 (02:57→09:32)
[2021-10-24] MEDS: Nystatin Powder 15gm Bottle 1 APPLIC TOPICAL ×2 (05:12→20:35)
[2021-10-24] MEDS: Menthol/Lanolin/Calamine/Znox 113 GM Tube 1 APPLIC TOPICAL ×3 (05:12→20:34)
[2021-10-24] MEDS: Doxazosin 1 MG Tablet PO (05:12)
[2021-10-24] MEDS: Magnesium Chloride 64 MG Delay Rel.Tablet 128 MG PO (05:12)
[2021-10-24 05:49] LABS: Absolute Lymphocyte Count 0.95 X10^3/uL (0.83-4.51); Absolute Neutrophil Count 5.2 X10^3/uL (2.0-7.7); Basophil# 0.03 X10^3/uL; Basophil% 0.4 % (0-1); Eosinophil# 0.07 X10^3/uL; Hematocrit 28.6 % (40-54); Hemoglobin 9.7 g/dL (13.0-16.5); Lymphocyte # 0.95 X10^3/ul (0.83-4.51); Lymphocyte % 13.2 % (19-41); Mean Corp Hgb Conc 33.9 g/dL (32-36); Mean Corpuscular Volume 91.4 fL (80-94); Mean Platelet Vol. 10.5 fl (6.2-12.0); Monocyte# 0.92 X10^3/uL; Monocyte% 12.7 % (0-10); NRBC Flagged by Analyzer 0 % (0-5); Neutrophil # 5.22 X10^3/uL (2.7-7.7); Neutrophil % 72.3 % (47-70); Platelet Count 326 K/mm3 (150-450); RBC Distribution Width CV 14.5 % (11.6-14.6); RBC Distribution Width SD 48.6 fl (35.1-43.9); Red Blood Count 3.13 M/mm3 (4.6-6.2); White Blood Count 7.2 K/mm3 (4.4-11.0)
[2021-10-24 06:12] LABS: Anion Gap 4 (5-15); BUN 12 mg/dL (7-18); BUN/Creat Ratio 21.1 RATIO (10-20); Chloride 102 mmol/L (98-107); Creatinine, Serum 0.57 mg/dL (0.70-1.30); EST Glomerular Filtration Rate 154 mL/min (>60); Est Glom Filt Rate - Afr Amer 186 mL/min (>60); Estimated Creatinine Clearance 169.34 ml/min; Glucose 128 mg/dL (74-106); Potassium 4.4 mmol/L (3.5-5.1); Sodium Level 137 mmol/L (136-145)
--- NOTE | 2021-10-24 07:39 | WOUNDNOTE ---
wound photo: abdomen
--- NOTE | 2021-10-24 11:52 | CASEMGMT ---
Social Work Met with patient and to complete initial assessment. in room and stepped outside for this worker to complete assessment. Pt expressed discomfort and was short with responses to questions, but allowed this worker to continue. Discussed code status and MOLST form. Pt confirmed full code. MOLST communicated to , placed in chart. Explained Medicare benefit. Pt confirmed he does not have a secondary insurance. Informed him copay days begin day 21 about $190/day if he remains in TCU and it would be out of pocket. Pt expressed understanding. Pt did not to continue speaking with this worker. He apologized for his demeanor and attitude. SW validated feelings and offered to speak with pt any other time. Pt expressed appreciation. entered room at end of discussion. shared with this worker she has Asperger's and 80% hearing loss and pt was 'her ears'. She also went on to explain there is a feud with pt and his two sister's. Per , sister's are trying to get access to pt's finances, wanting to be his POA, and banned from the hospital from how they spoke to Dr. Taveras. mentioned security was involved to protect pt's privacy. explains both sister's have about 8 alias' trying to call in or visit pt. SW thanked for information and will follow up on it to ensure TCU continues to keep pt safe. KALA Bentley
[2021-10-24] MEDS: Tuberculin,Purif.prot.deriv. 50 TU/ML Vial 0.1 ML ID (13:42)
[2021-10-24] MEDS: Ibuprofen 400 MG Tablet PO (13:46)
--- NOTE | 2021-10-24 14:04 | NURSING ---
pt reporting pain medicine ineffecitve, dr olmos updated, new order to increase oxyir 10mg Q4hr and give dose now.
[2021-10-24] MEDS: oxyCODONE 5 MG Tablet 10 MG PO ×2 (14:14→20:30)
[2021-10-24] MEDS: 0.9% Saline Lock 10 ML Syringe IV ×2 (14:18→18:35)
--- NOTE | 2021-10-24 14:24 | NURSING ---
PICC FLUSHED BUT NO BLOOD RETURN IN EITHER LINE. RN AWARE.
--- NOTE | 2021-10-24 14:57 | CON.PCM.SX_ITS ---
Assessment & Plan Assessment/Plan (1) S/P laparoscopic appendectomy: PLAN: Patient required return to the OR on 09/24/2021 after pathology reported they did not identify appendix in the patient's surgical specimen from 09/21/2021. Therefore, patient required return to the OR for hand-assisted laparoscopic appendectomy with drain placement. Unfortunately, patient developed evidence of a controlled perforation from the terminal ileum?per drain study 10/01/2021. He was thus n.p.o. and initiated TPN. He was then taken for open ileocecectomy on 10/02/2021 (2) Appendicitis with perforation: PLAN: Status post above operative course (3) Perforation of small intestine: PLAN: Patient underwent open ileocecectomy on 10/02/2021. Patient was held NPO after character of wound drainage became more malodorous and cloudy. Bedside wound exploration performed but not well tolerated. Did find evidence of necrotic fascia and patient was posted for operative exploration. Underwent re- exploratory laparotomy on 10/09/2021 with abdominal washout, drain placement, fascial debridement, and abdominal wall closure with placement of retention sut ures. (4) Intra-abdominal abscess: PLAN: s/p ab washout with additional drain placement 10/09/21 (5) Postoperative wound infection: PLAN: s/p fascial debridement and ab wall closure 10/09/21 (skin left open) Patient remains afebrile. Labs remain stable/within normal limits.slight left shift with WBC differential. Tolerating regular diet. Continues to have ongoing bowel function. KELLY drain sites now completely closed. Stable, slightly milky drainage from wound. Wound cultures from yesterday showing Gram stain with some gram-positive organisms. Culture yet to be reported. This could be a contaminant. I removed some necrotic tissue from the umbilical, level of the patient's incision. We will continue twice daily dressing changes for now. If wound assumes a improved appearance and culture remains negative would consider reapproximating wound edges by secondary intention early next week. HPI Consult Data Date of Consult: 10/25/21 HPI Narrative HPI Narrative: OLGA SANTOYO, is a 61 M who was admitted to TCU yesterday following a lengthy inpatient stay for complications related to perforated appendicitis. He reports feeling overall well today. He denies any issues with his diet and confirmed a large bowel movement earlier. His wound was changed by wound care once this morning. They report some ongoing thicker drainage no odor from the wound. No debridement was required. [facility] Medical History (Updated 10/23/21 @ 21:[address] Jonel Flores MD) Anemia Arthritis Back pain due to injury Chronic pain Difficulty balancing Hypertension Limb weakness MRSA (methicillin resistant staph aureus) culture positive neck/back pain Pancreatitis Shoulder pain Home Medications cyclobenzaprine 10 mg PO BID PRN 09/21/21 [History Last Taken Unknown] prazosin 1 mg PO DAILY 09/25/21 [History Last Taken Unknown] albuterol sulfate 2.5 mg INHALATION Q2H PRN PRN #0 ml 10/23/21 [Rx Last Taken Unknown] food supplemt, lactose-reduced [Ensure Enlive] 120 ml PO 4X/DAY 10/23/21 [History Last Taken Unknown] ibuprofen 400 mg PO Q6H PRN PRN #0 tab 10/23/21 [Rx Last Taken Unknown] magnesium chloride [Mag 64] 128 mg PO DAILY 10/23/21 [History Last Taken Unknown] menthol-zinc oxide [Calmoseptine] 1 applic TOPICAL TID 10/23/21 [History Last Taken Unknown] nystatin [Nyamyc] 1 applic TOPICAL BID 10/23/21 [History Last Taken Unknown] oxycodone 5 mg PO Q6H PRN PRN #0 tab 10/23/21 [Rx Last Taken Unknown] potassium, sodium phosphates 1 packet PO DAILY 10/23/21 [History Last Taken Unknown] sodium chloride 0.9 % (flush) [BD PosiFlush Normal Saline 0.9] 10 - 40 ml IV UD PRN #0 ml 10/23/21 [Rx Last Taken Unknown] Allergy/AdvReac Type Severity Reaction Status Date / Time acetaminophen AdvReac Nausea/Vom/ Verified 09/20/21 22:47 Diarrhea fentanyl [From Duragesic] AdvReac Nausea/Vom/ Verified 09/20/21 22:47 Diarrhea metoclopramide HCl AdvReac anxiety Verified 09/20/21 22:47 [From Reglan] nabumetone [From Relafen] AdvReac Nausea/Vom/ Verified 09/20/21 22:47 Diarrhea Family History Father Cancer Mother Parkinson disease Surgical History (Updated 10/23/21 @ 21:[address] Jonel Flores MD) History of hernia repair History of laparoscopic appendectomy Previous back surgery Social History (Updated 10/23/21 @ 21:[address] Jonel Flores MD) household members: spouse Smoking Status: Former smoker alcohol intake: never substance use type: does not use Physical Exam Const alert, oriented x3 and no apparent distress GI GI Narrative: Mild abdominal distention present, soft, tender to palpation only about laparotomy incision. When this incision is unpacked, there is healthy, granulating wound base. There was some necrotic tissue along the left side of the patient's wound about the level of the umbilicus. This was removed. Wound was then repacked with saline?moistened gauze (except for at the level of the umbilicus where this was Dakin's?moistened gauze). Lab / Micro Data Result Diagrams: 10/24/21 05:10 10/24/21 05:10 Labs: Laboratory Results - last 24 hr 10/24/21 05:10: WBC 7.2, RBC 3.13 L, Hgb 9.7 L, Hct 28.6 L, MCV 91.4, MCH 31.0, MCHC 33.9, RDW Std Deviation 48.6 H, RDW Coeff of Ar 14.5, Plt Count 326, MPV 10.5, Immature Gran % (Auto) 0.400, Neut % (Auto) 72.3 H, Lymph % (Auto) 13.2 L, Parker % (Auto) 12.7 H, Eos % (Auto) 1.0, Baso % (Auto) 0.4, Absolute Neuts (auto) 5.2, Absolute Lymphs (auto) 0.95, Nucleated RBC % 0 10/24/21 05:10: Sodium 137, Potassium 4.4, Chloride 102, Carbon Dioxide 31.0, Anion Gap 4 L, BUN 12, Creatinine 0.57 L, Estim Creat Clear Calc 169.34, Est GFR (MDRD) Af Amer 186, Est GFR (MDRD) Non-Af 154, BUN/Creatinine Ratio 21.1 H, G lucose 128 H, Calcium 8.0 L
[2021-10-24 15:30] VITALS: BP 116/59; PULSE 102; RESP 18; TEMP 36.5; O2SAT 96
[2021-10-24] MEDS: Rivaroxaban 10 MG Tablet PO (17:40)
[2021-10-24 20:31] VITALS: PULSE 92; RESP 16; O2SAT 94
[2021-10-25] MEDS: oxyCODONE 5 MG Tablet 10 MG PO ×3 (01:39→11:57)
[2021-10-25] MEDS: Doxazosin 1 MG Tablet PO (06:29)
[2021-10-25] MEDS: Magnesium Chloride 64 MG Delay Rel.Tablet 128 MG PO (06:29)
[2021-10-25] MEDS: Senna/Docusate Sodium 1 Tablet PO ×2 (06:29→18:25)
[2021-10-25] MEDS: 0.9% Saline Lock 10 ML Syringe IV ×2 (06:32→19:52)
[2021-10-25] MEDS: Menthol/Lanolin/Calamine/Znox 113 GM Tube 1 APPLIC TOPICAL ×2 (06:36→19:49)
[2021-10-25] MEDS: Nystatin Powder 15gm Bottle 1 APPLIC TOPICAL ×2 (06:36→18:27)
--- NOTE | 2021-10-25 09:29 | WOUNDNOTE ---
Pt appeared more confused this am when changing the abdominal dressing. Pt had urinated all over the sheets and gown. pt was trying to figure out how to operate the remote. changed patients gown and new sheets and blanket were given to the patient. reoriented patient. dressing was changed. see intervention. pt was then set up for breakfast.
[2021-10-25 13:41] VITALS: BP 112/65; PULSE 107; RESP 18; TEMP 36.7; O2SAT 90
--- NOTE | 2021-10-25 14:00 | CASEMGMT ---
Social Work Collaborated with lead SW on information received from . Completed chart review and it was identified the conflict pt has sister's and family. Pt did complete HCPOA and named as primary. Spoke with acute SW to get clarification on any incidents. Acute SW confirmed about measures hospital took to ensure pt's safety and privacy, and pt confirmed he does not want sister's visiting or calling into hospital. Updated lead SW. Confirmed VIP/Do Not Publish status. Contacted central registration to change to VIP. Communication send to Director/IDT. KALA Bentley
--- NOTE | 2021-10-25 16:02 | PN.SURG_ITS ---
Subjective Subjective Patient was seen and examined during afternoon rounds. He is sitting upright out of bed in a chair. He appears agitated and insists that he is trying to do everything right, but simply asked for the day off today given a rough night overnight. He also swears off any pain medication as he does not like the clou d that he gives him mentally. He states that he has some ongoing soreness from his wound, but nothing new. He also denies any issues with his diet and states that he is still taking 2-3 ensures daily with his meals. Objective Data Objective Data Vital Signs: Vital Signs Temp Pulse Resp BP Pulse Ox 98.0 F 107 H 18 112/65 90 10/25/21 13:41 10/25/21 13:41 10/25/21 13:41 10/25/21 13:41 10/25/21 13:41 Oxygen Delivery Method Room Air Weight: 243 lb 8 oz Body Mass Index (BMI) 28.8 Intake & Output: Intake and Output for Last 24 Hours 10/23/21 10/24/21 10/25/21 23:59 23:59 23:59 Intake Total 240 / 240 960 / 960 360 / 360 Output Total 600 / 600 Balance 240 / 240 360 / 360 360 / 360 Lab / Micro Data Result Diagrams: 10/24/21 05:10 10/24/21 05:10 Physical Exam Const oriented x3 Resp Resp Narrative: Mildly labored breathing during dressing change GI GI Narrative: Mildly distended, soft, tender only about laparotomy site. There is decreased erythema along the skin edges of the laparotomy. The character of the drainage appears clear. The wound base appears viable and granulating. Assessment & Plan Assessment/Plan (1) S/P laparoscopic appendectomy: PLAN: Patient required return to the OR on 09/24/2021 after pathology reported they did not identify appendix in the patient's surgical specimen from 09/21/2021. Therefore, patient required return to the OR for hand-assisted lapar oscopic appendectomy with drain placement. Unfortunately, patient developed evidence of a controlled perforation from the terminal ileum?per drain study 10/01/2021. He was thus n.p.o. and initiated TPN. He was then taken for open ileocecectomy on 10/02/2021 (2) Appendicitis with perforation: PLAN: Status post above operative course (3) Perforation of small intestine: PLAN: Patient underwent open ileocecectomy on 10/02/2021. Patient was held NPO after character of wound drainage became more malodorous and cloudy. Bedside wound exploration performed but not well tolerated. Did find evidence of necrotic fascia and patient was posted for operative exploration. Underwent re- exploratory laparotomy on 10/09/2021 with abdominal washout, drain placement, fascial debridement, and abdominal wall closure with placement of retention sutures. (4) Intra-abdominal abscess: PLAN: s/p ab washout with additional drain placement 10/09/21 (5) Postoperative wound infection: PLAN: s/p fascial debridement and ab wall closure 10/09/21 (skin left open) Patient remains afebrile. Tolerating regular diet. Continues to have ongoing bowel function as well as supplementation with ensures. Improved drainage from wound. Wound cultures now show a mix of gram-positive organisms and presumptive C albicans. I have initiated treatment with Diflucan 200 mg daily x7 days. No further debridement was warranted during today's exam. We will continue twice daily dressing changes for now. If wound assumes a improved appearance and culture remains negative may reattempt closure by secondary intention next week. Given patient's complaints of altered mental status and mental clouding, I have restarted acetaminophen. This is marked as a allergy, but patient tolerated it without issue when it was prescribed during his inpatient stay. This should offer him some analgesia without the off target side effects.
[2021-10-25] MEDS: Fluconazole 100 MG Tablet 200 MG PO (18:24)
[2021-10-25] MEDS: Rivaroxaban 10 MG Tablet PO (18:25)
[2021-10-25] MEDS: Juven (unflavored) Packet 1 PACKET PO (18:25)
--- NOTE | 2021-10-25 18:37 | NURSING ---
pt upset, stated that his is traumatized because the [facility] main dental front office assistant turned her away his . pt felt that they turned her away because he refused to do therapy today. This nurse called the main desk and they stated that did not really say who she was, they thought she said sister in law. TCU staff was instructed that pt was only allowed visits from , apparently since did not really express who she was they told her pt was not listed in hospital. This financial writer spoke with the lady at dental front office assistant and asked her to please make a note for other dental front office assistant workers that 's name is Shirin and she is allowed to visit pt. Pt did express that is autistic and now is traumatized & will not return. I offered to call his and he declined stating I am the only one that can talk with her so she understands Lots 1:1 emotional support.
[2021-10-25] MEDS: oxyCODONE 5 MG Tablet PO (19:48)
[2021-10-25 20:01] VITALS: PULSE 100; O2SAT 93
[2021-10-25] MEDS: cycloBENZAPRine HCl 10 MG Tablet PO (23:37)
[2021-10-26] MEDS: Polyethylene Glycol 3350 17 GM PACKET PO (05:29)
[2021-10-26] MEDS: Senna/Docusate Sodium 1 Tablet PO ×2 (05:29→17:35)
[2021-10-26] MEDS: Doxazosin 1 MG Tablet PO (05:29)
[2021-10-26] MEDS: Magnesium Chloride 64 MG Delay Rel.Tablet 128 MG PO (05:29)
[2021-10-26] MEDS: Fluconazole 100 MG Tablet 200 MG PO (05:30)
[2021-10-26] MEDS: 0.9% Saline Lock 10 ML Syringe IV ×2 (05:35→13:47)
[2021-10-26] MEDS: Menthol/Lanolin/Calamine/Znox 113 GM Tube 1 APPLIC TOPICAL ×3 (05:44→23:57)
[2021-10-26] MEDS: Nystatin Powder 15gm Bottle 1 APPLIC TOPICAL ×2 (05:45→17:39)
[2021-10-26] MEDS: Juven (unflavored) Packet 1 PACKET PO ×2 (08:19→17:33)
--- NOTE | 2021-10-26 10:00 | PN.SURG_ITS ---
Subjective Subjective Patient seen and examined during AM rounds. He is quite somnolent. He states that he is again in a cloud. He confirms that he did sleep well overnight and is unsure why he is feeling so poorly. He keeps dozing while we are talking. Objective Data Objective Data Vital Signs: Vital Signs Temp Pulse Resp BP Pulse Ox 98.0 F 100 18 112/65 93 10/25/21 13:41 10/25/21 20:01 10/25/21 13:41 10/25/21 13:41 10/25/21 20:01 Oxygen Delivery Method Room Air Weight: 243 lb 8 oz Body Mass Index (BMI) 28.8 Intake & Output: Intake and Output for Last 24 Hours 10/24/21 10/25/21 10/26/21 23:59 23:59 23:59 Intake Total 960 / 960 600 / 600 Output Total 600 / 600 Balance 360 / 360 600 / 600 Lab / Micro Data Result Diagrams: 10/24/21 05:10 10/24/21 05:10 Physical Exam Const Constitutional Narrative: Somnolent GI GI Narrative: Mildly distended, soft, tender to palpation about laparotomy. There is mild amount of thin drainage from the patient's wound. Towards the inferior portion of the patient's wound the dressings have a mild amount of thicker light green drainage. However, the wound base appears viable and granulating. Wound was repacked with Dakin soaked gauzes. Assessment & Plan Assessment/Plan (1) S/P laparoscopic appendectomy: PLAN: Patient required return to the OR on 09/24/2021 after pathology reported they did not identify appendix in the patient's surgical specimen from 09/21/2021. Therefore, patient required return to the OR for hand-assisted laparoscopic appendectomy with drain placement. Unfortunately, patient developed evidence of a controlled perforation from the terminal ileum?per drain study 10/01/2021. He was thus n.p.o. and initiated TPN. He was then taken for open ileocecectomy on 10/02/2021 (2) Appendicitis with perforation: PLAN: Status post above operative course (3) Perforation of small intestine: PLAN: Patient underwent open ileocecectomy on 10/02/2021. Patient was held NPO after character of wound drainage became more malodorous and cloudy. Bedside wound exploration performed but not well tolerated. Did find evidence of necrotic fascia and patient was posted for operative exploration. Underwent re- exploratory laparotomy on 10/09/2021 with abdominal washout, drain placement, fascial debridement, and abdominal wall closure with placement of retention sutures. (4) Intra-abdominal abscess: PLAN: s/p ab washout with additional drain placement 10/09/21 (5) Postoperative wound infection: PLAN: s/p fascial debridement and ab wall closure 10/09/21 (skin left open) Patient quite somnolent over the last 2 days. Suspect this is related to the Flexeril that has been added back. I am stopping this and his oxycodone to try to improve his neuro status. Patient remains afebrile. Tolerating regular diet. Continues to have ongoing bowel function as well as supplementation with ensures. Improved drainage from wound. Wound cultures now show a mix of gram- positive organisms (including staph epidermidis and staph hemolyticus (and presumptive C albicans. I have initiated treatment with Diflucan 200 mg daily x7 days. No further debridement was warranted during today's exam. We will continue dressing changes for now. Given patient's complaints of altered mental status and mental clouding, I have restarted acetaminophen. This is marked as a allergy, but patient tolerated it without issue when it was prescribed during his inpatient stay. This should offer him some analgesia without the off target side effects. Charges/Coding Visit Charges Inpatient E&M: 44631 Subs Hosp L2
--- NOTE | 2021-10-26 10:41 | NURSING ---
Addendum entered by Esther Alatorre 10/26/21 14:04: This nurse went to reassess pt and he had fallen back to sleep. SPO2 83% on 5L O2, pt was awaken and he recovered to 93%. Pt actively falling back to sleep while talking to staff and SPO2 destats into the 80's. When pt is awaken back up he does recover back to the 90's, pt also has not had bm since 10/23/21. Dr. Flores updated N.O. Bpip, KUB, CXR x 2 views, CBC, CMP, U/A C&S, and Covid swab. Dr. Flores updated on BUN and N.O. 1L IV bolus NS then IV NS 75cc/hr and repeat labs tomorow Original Note: This nurse went in to assess pt and noted he was very lethargic, unable to follow commands longer than a few seconds and kept falling back asleep. at bedside and says he always gets like this when he takes oxy. Upon listening to apical pulse, HR noted to be tachy at 105 so Spo2 was checked. SPO2 85%, hands warm, nail beds pale but not cyanotic, pt denies SOB and does not appear distressed. 2L Oxygen via NC applied and pt dropped down to 80%. Oxygen increased to 5L and pt recovered to 91%. Pt awoke, no longer lethargic, drowsy, or unable to follow commands. Pt having normal conversation with this nurse at bedside and asked for something to eat. Pt currently eating cereal in his room with no further complaints.
[2021-10-26 11:51] VITALS: BP 121/61; PULSE 98; RESP 18; TEMP 37.3; O2SAT 91
--- NOTE | 2021-10-26 11:58 | RAD_ITS ---
STUDY: X-RAY CHEST REASON FOR EXAM: Male, 61 years old. Abnormal vital signs. TECHNIQUE: Frontal and lateral views of the chest. COMPARISON: 10/15/2021. FINDINGS: Right-sided PICC line is stable position with the tip in the distal superior vena cava. Hypoventilatory and atelectatic changes in the lung bases worse on the right side unchanged prior exam. Small left pleural effusion. There is borderline cardiomegaly. Normal mediastinum and oscar. Normal visualized pulmonary arteries. There is atherosclerotic tortuosity of the aortic arch and descending thoracic aorta. Stable soft tissues and osseous structures. There is no demonstrated abnormality of the visualized soft tissue structures of the upper abdomen. RAD/Chest PA and Lateral IMPRESSION: No significant change. Electronically Signed: Felipe Enriquez MD at 14:25 EDT ,
--- NOTE | 2021-10-26 11:59 | RAD_ITS ---
STUDY: X-RAY - ABDOMEN/PELVIS REASON FOR EXAM: Male, 61 years old. Constipation, Increased Temp. TECHNIQUE: Single AP view of the abdomen / pelvis. COMPARISON: 10/09/2021. FINDINGS: Nasogastric tube has been removed. Nonspecific gaseous bowel loops and colon. The stomach is markedly distended. Surgical clips are again seen in the lower abdomen. Stable soft tissues and osseous structures. RAD/Abdomen Single View IMPRESSION: Nonspecific gas pattern. Electronically Signed: Felipe Enriquez MD at 14:23 EDT ,
[2021-10-26 12:19] LABS: Absolute Lymphocyte Count 1.03 X10^3/uL (0.83-4.51); Absolute Neutrophil Count 7.3 X10^3/uL (2.0-7.7); Basophil# 0.04 X10^3/uL; Basophil% 0.4 % (0-1); Eosinophil# 0.06 X10^3/uL; Eosinophils% 0.7 % (0-5); Hematocrit 29.1 % (40-54); Hemoglobin 9.4 g/dL (13.0-16.5); Lymphocyte # 1.03 X10^3/ul (0.83-4.51); Lymphocyte % 11.2 % (19-41); Mean Corp Hgb Conc 32.3 g/dL (32-36); Mean Platelet Vol. 9.4 fl (6.2-12.0); Monocyte# 0.75 X10^3/uL; Monocyte% 8.2 % (0-10); NRBC Flagged by Analyzer 0 % (0-5); Neutrophil # 7.25 X10^3/uL (2.7-7.7); Neutrophil % 79.2 % (47-70); Platelet Count 335 K/mm3 (150-450); RBC Distribution Width CV 15.1 % (11.6-14.6); RBC Distribution Width SD 51.8 fl (35.1-43.9); Red Blood Count 3.13 M/mm3 (4.6-6.2); White Blood Count 9.2 K/mm3 (4.4-11.0)
[2021-10-26 12:36] LABS: ALB/GLOB Ratio 0.4 RATIO (0.9-2.4); AST(SGOT) 27 U/L (15-37); Alanine Aminotransfer ALT/SGPT 34 U/L (16-61); Alkaline Phosphatase 117 U/L (45-117); Anion Gap 3 (5-15); BUN 20 mg/dL (7-18); BUN/Creat Ratio 31.6 RATIO (10-20); Chloride 101 mmol/L (98-107); Creatinine, Serum 0.63 mg/dL (0.70-1.30); EST Glomerular Filtration Rate 137 mL/min (>60); Est Glom Filt Rate - Afr Amer 165 mL/min (>60); Estimated Creatinine Clearance 153.21 ml/min; Globulin 4.9 g/dL (2.2-4.2); Glucose 133 mg/dL (74-106); Protein, Total 6.9 g/dL (6.4-8.2); Sodium Level 136 mmol/L (136-145)
[2021-10-26 13:00] LABS: Bacteria 0 SEEN /hpf (None Seen); Mucous, Urine 0 SEEN /hpf (<or=2+); Red Blood Cells-Urine 0 SEEN /hpf (0-5); Squamous Epithelial Cells - UA 0 SEEN /hpf (0-5); White Blood Cells 0 SEEN /hpf (0-5)
[2021-10-26 13:01] LABS: Color, Urine Yellow (Yellow); Glucose, Dipstick Normal (Normal); Ketone-Dipstick Negative (Negative); Leukocyte Esterase-Dipstick Negative /ul (Negative); Nitrite-Dipstick Negative (Negative); Occult Blood-Urine 10 /ul (Negative); Protein-Dipstick 15 mg/dl (Negative); Urine Bilirubin Dipstick Negative (Negative); Urine Clarity Clear (Clear); Urine Urobilinogen Normal (Normal)
[2021-10-26] MEDS: 0.9% Normal Saline 1,000 ML 1000 ML IV (13:42)
[2021-10-26] MEDS: 0.9% Normal Saline 1,000 ML 75 ML IV (14:50)
[2021-10-26 14:53] VITALS: PULSE 105; O2SAT 96
[2021-10-26 17:31] VITALS: BP 128/62; PULSE 96; RESP 22; TEMP 36.5; O2SAT 96
[2021-10-26] MEDS: Rivaroxaban 10 MG Tablet PO (17:34)
[2021-10-26] MEDS: Bisacodyl 5 MG Tablet 10 MG PO (17:36)
--- NOTE | 2021-10-26 20:36 | NURSING ---
Call to pulmonary services requesting BiPAP be applied. Dr. Deluca in currently changing abdominal dressing.
--- NOTE | 2021-10-26 20:47 | PCM.PN.BLA ---
Progress Note Patient is still quite somnolent. Does awake to name. But then does fall asleep again. Midline wound repacked with Adaptic/wet-to-dry/Telfa/4 x 4's and tape. Good granulation tissue minimal greenish discharge on gauze. Some calamine lotion also applied to the edges of the skin at the wound. Patient tolerated dressing change well. We will continue twice daily dressing changes.
--- NOTE | 2021-10-26 21:05 | NURSING ---
Pt refusing BiPAP per respiratory therapist's report. Pt becoming increasingly agitated and swearing at this nurse. Attempted to educate pt on purpose of BiPAP. He continues to refuse using the unit and would like to speak to his doctors, referring to Dr. Flores and Dr. Taveras. Informed pt both physicians will not be in tomorrow as Dr. Deluca will be back tomorrow am to change the surgical dressing. O2 via nc in place at 5 lpm. Pt agreeable to take Ensure and took without any difficulty. Informed pt nursing staff will continue to monitor respiratory status and IV throughout the night and he verbalizes understanding. Instructed on use of call light. Call light w/ in reach.
--- NOTE | 2021-10-26 23:10 | CPS ---
placed pt on BIPAP, pt became very axious and strted panicing saying he couldn't breathe, tried coaching pt and changing to AVAPS with out improvment, pt refusing at this time, wants to talk to before he will consider weaqring it again
[2021-10-27] MEDS: 0.9% Normal Saline 1,000 ML 75 ML IV (04:10)
[2021-10-27] MEDS: Polyethylene Glycol 3350 17 GM PACKET PO (05:39)
[2021-10-27] MEDS: Doxazosin 1 MG Tablet PO (05:40)
[2021-10-27] MEDS: Senna/Docusate Sodium 1 Tablet PO ×2 (05:40→17:52)
[2021-10-27] MEDS: Magnesium Chloride 64 MG Delay Rel.Tablet 128 MG PO (05:40)
[2021-10-27] MEDS: Fluconazole 100 MG Tablet 200 MG PO (05:40)
[2021-10-27] MEDS: Menthol/Lanolin/Calamine/Znox 113 GM Tube 1 APPLIC TOPICAL ×3 (05:41→23:17)
[2021-10-27] MEDS: Nystatin Powder 15gm Bottle 1 APPLIC TOPICAL ×2 (05:43→17:53)
[2021-10-27] MEDS: 0.9% Saline Lock 10 ML Syringe IV ×2 (05:53→12:50)
[2021-10-27 05:55] VITALS: BP 151/83; PULSE 100
[2021-10-27 07:04] VITALS: O2SAT 94
[2021-10-27 07:21] LABS: Absolute Lymphocyte Count 0.85 X10^3/uL (0.83-4.51); Absolute Neutrophil Count 6.7 X10^3/uL (2.0-7.7); Basophil# 0.04 X10^3/uL; Basophil% 0.5 % (0-1); Eosinophil# 0.11 X10^3/uL; Eosinophils% 1.3 % (0-5); Hematocrit 27.2 % (40-54); Hemoglobin 8.9 g/dL (13.0-16.5); Lymphocyte # 0.85 X10^3/ul (0.83-4.51); Mean Corp Hgb Conc 32.7 g/dL (32-36); Mean Corpuscular Hgb 30.8 pg (27.0-32.0); Mean Corpuscular Volume 94.1 fL (80-94); Mean Platelet Vol. 9.8 fl (6.2-12.0); Monocyte# 0.83 X10^3/uL; Monocyte% 9.7 % (0-10); NRBC Flagged by Analyzer 0 % (0-5); Neutrophil # 6.66 X10^3/uL (2.7-7.7); Platelet Count 304 K/mm3 (150-450); RBC Distribution Width CV 15.1 % (11.6-14.6); RBC Distribution Width SD 52.9 fl (35.1-43.9); Red Blood Count 2.89 M/mm3 (4.6-6.2); White Blood Count 8.5 K/mm3 (4.4-11.0)
[2021-10-27 07:42] LABS: Anion Gap 2 (5-15); BUN 14 mg/dL (7-18); BUN/Creat Ratio 27.4 RATIO (10-20); Calcium,Total 8.1 mg/dL (8.5-10.1); Chloride 105 mmol/L (98-107); Creatinine, Serum 0.51 mg/dL (0.70-1.30); EST Glomerular Filtration Rate 175 mL/min (>60); Est Glom Filt Rate - Afr Amer 211 mL/min (>60); Estimated Creatinine Clearance 189.26 ml/min; Glucose 156 mg/dL (74-106); Potassium 4.1 mmol/L (3.5-5.1); Sodium Level 137 mmol/L (136-145)
[2021-10-27] MEDS: Juven (unflavored) Packet 1 PACKET PO ×2 (08:43→17:52)
--- NOTE | 2021-10-27 09:29 | PN.SURG_ITS ---
Subjective Subjective Patient's wound cultures growing yeast, staph/E. coli. Patient still has some yellowish biofilm drainage on the packing. Patient still somnolent does seem to wake a little bit easier and stay awake for a little bit longer this morning. Objective Data Objective Data Vital Signs: Vital Signs Temp Pulse Resp BP Pulse Ox 97.7 F L 100 22 H 151/83 H 94 10/26/21 17:31 10/27/21 05:55 10/26/21 17:31 10/27/21 05:55 10/27/21 07:04 Oxygen Flow Rate (L/min) 5 Oxygen Delivery Method Nasal Cannula Weight: 243 lb 8 oz Body Mass Index (BMI) 28.8 Intake & Output: Intake and Output for Last 24 Hours 10/25/21 10/26/21 10/27/21 23:59 23:59 23:59 Intake Total 600 / 600 2080 / 2080 1000 / 1000 Output Total 900 / 900 850 / 850 Balance 600 / 600 1180 / 1180 150 / 150 Lab / Micro Data Result Diagrams: 10/27/21 06:58 10/27/21 06:58 Labs: Laboratory Results - last 24 hr 10/26/21 12:00: Urine Color Yellow, Urine Clarity Clear, Urine pH 8.0, Ur Specific [place] 1.010, Urine Protein 15 H, Urine Glucose (UA) Normal, Urine Ketones Negative, Urine Occult Blood 10 H, Urine Nitrite Negative, Urine Bilirubin Negative, Urine Urobilinogen Normal, Ur Leukocyte Esterase Negative, Urine RBC 0 SEEN, Urine WBC 0 SEEN, Ur Squamous Epith Cells 0 SEEN, Urine Bacteria 0 SEEN, Urine Mucus 0 SEEN 10/26/21 12:10: WBC 9.2, RBC 3.13 L, Hgb 9.4 L, Hct 29.1 L, MCV 93.0, MCH 30.0, MCHC 32.3, RDW Std Deviation 51.8 H, RDW Coeff of Ar 15.1 H, Plt Count 335, MPV 9.4, Immature Gran % (Auto) 0.300, Neut % (Auto) 79.2 H, Lymph % (Auto) 11.2 L, [place] % (Auto) 8.2, Eos % (Auto) 0.7, Baso % (Auto) 0.4, Absolute Neuts (auto) 7.3, Absolute Lymphs (auto) 1.03, Nucleated RBC % 0 10/26/21 12:10: Sodium 136, Potassium 4.0, Chloride 101, Carbon Dioxide 32.0, Anion Gap 3 L, BUN 20 H, Creatinine 0.63 L, Estim Creat Clear Calc 153.21, Est GFR (MDRD) Af Amer 165, Est GFR (MDRD) Non-Af 137, BUN/Creatinine Ratio 31.6 H, Glucose 133 H, Calcium 8.0 L, Total Bilirubin 0.30, AST 27, ALT 34, Alkaline Phosphatase 117, Total Protein 6.9, Albumin 2.0 L, Globulin 4.9 H, Albumin/Globulin Ratio 0.4 L 10/27/21 06:58: WBC 8.5, RBC 2.89 L, Hgb 8.9 L, Hct 27.2 L, MCV 94.1 H, MCH 30.8, MCHC 32.7, RDW Std Deviation 52.9 H, RDW Coeff of Ar 15.1 H, Plt Count 304, MPV 9.8, Immature Gran % (Auto) 0.500, Neut % (Auto) 78.0 H, Lymph % (Auto) 10.0 L, [place] % (Auto) 9.7, Eos % (Auto) 1.3, Baso % (Auto) 0.5, Absolute Neuts (auto) 6.7, Absolute Lymphs (auto) 0.85, Nucleated RBC % 0 10/27/21 06:58: Sodium 137, Potassium 4.1, Chloride 105, Carbon Dioxide 30.0, Anion Gap 2 L, BUN 14, Creatinine 0.51 L, Estim Creat Clear Calc 189.26, Est GFR (MDRD) Af Amer 211, Est GFR (MDRD) Non-Af 175, BUN/Creatinine Ratio 27.4 H, Glucose 156 H, Calcium 8.1 L Micro: Microbiology 10/26/21 12:00 Urine Catheter - Catheter Urine Culture - Preliminary Culture exhibits no growth. 10/26/21 13:00 Nasal Secretion SARS-CoV-2 Antigen (Rapid) - Final Radiography Diagnostic Testing: Radiology Impression Chest X-Ray 10/26/21 11:58 IMPRESSION: No significant change. Electronically Signed: Felipe Enriquez MD at 14:25 EDT , KUB X-Ray 10/26/21 11:59 IMPRESSION: Nonspecific gas pattern. Electronically Signed: Felipe Enriquez MD at 14:23 EDT , Physical Exam Const no apparent distress Constitutional Narrative: Somnolent Resp normal respiratory effort Cardio regular rate GI GI Narrative: Abdomen: Erythematous skin edges of wound due to for retention sut ures in place and surgery. Wound packed with Adaptic/wet-to-dry, yellowish drainage on dressing. Good granulation tissue. Assessment & Plan Assessment/Plan (1) S/P laparoscopic appendectomy: (2) Perforation of small intestine: (3) Postoperative wound infection: PLAN: Continuing dressing changes twice daily. Did discuss with Dr. Taveras he does plan to reach out to Dr. Lopez about the cultures. Ros Deluca M.D. Pager: [phone] [facility] [address] [place] [address], [facility], [address] [place] [address] Office: [phone]
--- NOTE | 2021-10-27 09:56 | NURSING ---
Addendum entered by Esther Alatorre 10/27/21 10:20: Soap Suds enema not given. This nurse went to administer SSE and upon removing brief pt had an extra large formed soft bowel movement. Pt was cleansed and new linen and attend applied. Pt then started to have another bowel movement and is currently sitting on bedpan, bed in low position and call light in reach. Original Note: Soap Suds Enema order clarified with Dr. Flores.
[2021-10-27 12:00] VITALS: O2SAT 95
[2021-10-27] MEDS: Acetaminophen 500 MG Tablet PO (12:49)
--- NOTE | 2021-10-27 14:12 | NURSING ---
Pt legs +1- to +2 pitting edema today, acewraps applied and legs elevated, LS clear but diminished, slight non-pitting edema noted to BUE, creatinine rechecked and is 14 today, Dr. Flores update N.O. d/c fluids.
[2021-10-27 16:00] VITALS: BP 121/68; PULSE 93; RESP 18; TEMP 36.5; O2SAT 95
[2021-10-27] MEDS: Rivaroxaban 10 MG Tablet PO (17:52)
[2021-10-27 23:10] VITALS: O2SAT 95
[2021-10-28] MEDS: Senna/Docusate Sodium 1 Tablet PO ×2 (05:50→17:37)
[2021-10-28] MEDS: Fluconazole 100 MG Tablet 200 MG PO (05:51)
[2021-10-28] MEDS: Magnesium Chloride 64 MG Delay Rel.Tablet 128 MG PO (05:51)
[2021-10-28] MEDS: Doxazosin 1 MG Tablet PO (05:51)
[2021-10-28] MEDS: Menthol/Lanolin/Calamine/Znox 113 GM Tube 1 APPLIC TOPICAL ×2 (05:52→17:35)
[2021-10-28] MEDS: Nystatin Powder 15gm Bottle 1 APPLIC TOPICAL ×2 (05:53→18:05)
[2021-10-28] MEDS: Polyethylene Glycol 3350 17 GM PACKET PO (05:53)
[2021-10-28] MEDS: 0.9% Saline Lock 10 ML Syringe IV (05:59)
[2021-10-28 06:05] VITALS: BP 136/61; PULSE 90; RESP 24; O2SAT 95
[2021-10-28 06:47] VITALS: O2SAT 95
[2021-10-28] MEDS: Juven (unflavored) Packet 1 PACKET PO ×2 (09:31→17:36)
[2021-10-28] MEDS: Acetaminophen 500 MG Tablet PO (09:35)
--- NOTE | 2021-10-28 09:36 | NURSING ---
MADIERN/WOUND NURSE CHANGED PT DRESSING TO ABDOMINAL.
--- NOTE | 2021-10-28 09:49 | PCM.PN.RX ---
Progress Note - Pharmacy Subjective: [61yom admitted to TCU with debility for strength and conditioning s/p prolonged inpatient stay for appendicitis with perforation.] Objective: Allergies acetaminophen Adverse Reaction (Verified 09/20/21 22:47) Nausea/Vom/Diarrhea fentanyl [From Duragesic] Adverse Reaction (Verified 09/20/21 22:47) Nausea/Vom/Diarrhea metoclopramide HCl [From Reglan] Adverse Reaction (Verified 09/20/21 22:47) anxiety nabumetone [From Relafen] Adverse Reaction (Verified 09/20/21 22:47) Nausea/Vom/Diarrhea Current Medications Generic Name Dose Route Start Last Admin Trade Name Freq PRN Reason Stop Dose Admin Acetaminophen 500 mg 10/25/21 15:56 10/28/21 09:35 Acetaminophen 500 Mg Tablet PO 500 mg Q4H PRN PRN Administration Pain Score 1-10 Albuterol Sulfate 2.5 mg 10/23/21 16:38 Albuterol 2.5 Mg/3 Ml Vial.Neb. INHALATION Q2H PRN PRN Wheezing Or Cough Bisacodyl 10 mg 10/23/21 21:17 10/26/21 17:36 Bisacodyl 5 Mg Tablet PO 10 mg DAILY PRN Administration Constipation Calamine/Phenol 1 applic 10/23/21 22:00 10/28/21 05:52 Menthol/Lanolin/Calamine/Znox 113 Gm Tube TOPICAL 1 applic TID ROXANA Administration Protocol Doxazosin Mesylate 1 mg 10/24/21 06:00 10/28/21 05:51 Doxazosin 1 Mg Tablet PO 1 mg DAILY ROXANA Administration Fluconazole 200 mg 10/25/21 16:15 10/28/21 05:51 Fluconazole 100 Mg Tablet PO 11/01/21 16:16 200 mg DAILY ROXANA Administration Heparin Sodium (Beef Lung) 50 units 10/23/21 16:40 Heparin Pf Lock 10 Units/Ml 50 Units/5 Ml Syringe IV UD PRN PICC Line Heparin Flush Ibuprofen 400 mg 10/23/21 16:38 10/24/21 13:46 Ibuprofen 400 Mg Tablet PO 400 mg Q6H PRN PRN Administration Pain Score 1-5 L-Arginine/L-Glutamine/Calcium HMB 1 packet 10/25/21 17:00 10/28/21 09:31 Aly (Unflavored) Packet PO 1 packet BIDCM ROXANA Administration Magnesium Chloride 128 mg 10/24/21 06:00 10/28/21 05:51 Magnesium Chloride 64 Mg Delay Rel.Tablet PO 128 mg DAILY ROXANA Administration Multi-Ingredient Cream 1 applic 10/26/21 06:00 10/28/21 05:52 Mineral Oil/Petrolatum,White Jar TOPICAL 1 applic BID ROXANA Administration Protocol Nutritional Formula (Lactose Free) 120 ml 10/23/21 17:00 10/28/21 05:49 Ensure Enlive 120 Ml Liquid PO 120 ml 4X/DAY ROXANA Administration Nystatin 1 applic 10/23/21 18:00 10/28/21 05:53 Nystatin Powder 15gm Bottle TOPICAL 1 applic BID ROXANA Administration Protocol Polyethylene Glycol 17 gm 10/24/21 06:00 10/28/21 05:53 Polyethylene Glycol 3350 17 Gm Packet PO 17 gm DAILY ROXANA Administration Rivaroxaban 10 mg 10/24/21 17:00 10/27/21 17:52 Rivaroxaban 10 Mg Tablet PO 11/07/21 17:01 10 mg DINNER ROXANA Administration Senna/Docusate Sodium 1 tablet 10/24/21 06:00 10/28/21 05:50 Senna/Docusate Sodium 1 Tablet PO 1 tablet BID ROXANA Administration Sodium Chloride 10 - 40 ml 10/23/21 16:40 10/28/21 05:59 0.9% Saline Lock 10 Ml Syringe IV 10 ml UD PRN Administration Open End PICC Flush Sodium Chloride 10 - 40 ml 10/23/21 16:40 0.9 % Nacl (Sterile) Posiflush 10 Ml IV UD PRN Port access or dressing change Tuberculin PPD 0.1 ml 10/31/21 10:00 Tuberculin,Purif.Prot.Deriv. 50 Tu/Ml Vial ID 10/31/21 10:01 X1 ONE Problem List (Last Reviewed 10/23/21 @ 21:[address] Jonel Flores MD) Chronic low back pain (Chronic) Hypertension (Chronic) Pancreatitis (Acute) Essential tremor (Acute) Debility (Acute) Postoperative wound infection (Acute) Intra-abdominal abscess (Acute) Perforation of small intestine (Acute) S/P laparoscopic appendectomy (Acute) Appendicitis with perforation (Acute) Vital Signs Temp Pulse Resp BP Pulse Ox 97.7 F L 90 24 H 136/61 H 95 10/27/21 16:00 10/28/21 06:05 10/28/21 06:05 10/28/21 06:05 10/28/21 06:47 Oxygen Flow Rate (L/min) 3 Oxygen Delivery Method Nasal Cannula Weight: 110.45 kg Body Mass Index (BMI) 28.8 Sodium 137 mmol/L (136-145) 10/27/21 06:58 Potassium 4.1 mmol/L (3.5-5.1) 10/27/21 06:58 Chloride 105 mmol/L (98-107) 10/27/21 06:58 Carbon Dioxide 30.0 mmol/L (21.0-32.0) 10/27/21 06:58 Anion Gap 2 (5-15) L 10/27/21 06:58 BUN 14 mg/dL (7-18) 10/27/21 06:58 Creatinine 0.51 mg/dL (0.70-1.30) L 10/27/21 06:58 Est GFR (MDRD) Af Amer 211 mL/min (>60) 10/27/21 06:58 Est GFR (MDRD) Non-Af 175 mL/min (>60) 10/27/21 06:58 BUN/Creatinine Ratio 27.4 RATIO (10-20) H 10/27/21 06:58 Glucose 156 mg/dL (74-106) H 10/27/21 06:58 Assessment/Plan: 1. s/p laparascopic appendectomy with perforation: abdominal wound culture from 10/23/21 = presumptive C. albicans, 1+ staphi epi, staph haemolyticus, E coli. On fluconazole 200mg po daily started 10/25 x 7 days (renal function normal with Scr =0.51, AST/ALT = 27/34 on 10/26). Notes indicate that wound drainage improving, afebrile, WBC 8.5 (10/27). Surgery notes indicate that ID consulted about culture from . Continue to monitor s/sx infection at wound site, WBC, temperatures. Continue to monitor renal function for fluconazole, AST/ALT if clinically indicated. 2. Pain with abdominal wound, also h/o chronic back pain: Currently on acetaminophen 500mg po q4h prn pain score 1-10 (AST/ALT 27/34 on 10/26) and ibuprofen 400mg po q6h prn pain score 1-5 (Scr 0.51). Was on oxycodone prn but discontinued on 10/26 due to somnolence. 2 doses of APAP in last 24 hrs, last dose of IBU on 10/24. Of note, APAP listed as h/o adverse reaction (N/VD) but patient has tolerated medication without issue. Pain scores lower last 48 hours compared to prior. Continue to monitor patient pain scores and function, mental status, SCr if ibuprofen used regularly. 3. Nutrition - Ensure Enlive supplements BID with meals along with Aly BID. s/p TPN during inpatient stay. Albumin on 10/26 = 2.0 (improving from previous). Continue to monitor nutritional intake, albumin/prealbumin. Also with h/o hypomagnesemia on magnesium chloride 128mg po daily, last serum Mg = 2.4 on 10/23. Monitor serum magnesium periodically and for diarrhea. 4. H/O BPH - Currently on doxasoxin 1mg po daily. BP ranges from 112/65-147/73. Monitor for symptoms of urinary retention as well as BP, symptoms of orthostasis. 5. Skin maintenance - Currently on Calmoseptine TID as barrier protectant, Eucerin BID to B/L foot for moisturing and nystatin powder BID to groin for tinea corporis. Continue to monitor skin integrity, s/sx of infection. 6. Shortness of breath - on albuterol aerosols 2.5mg q2 hour prn SOB/wheezing. pt has not required any doses thus far this admission. Continue to monitor for SOB/wheezing. 7. H/O HTN per records - pt not on antihypertensives (is on doxazosin for BPH). Per external pharmacy records, does not appear that pt was taking any antihypertensives prior to admission on 09/20/21. BP range 112/65-147/23 reasonable w/o medication. Continue to monitor BP. 8. Tremor - no medications at this time, being evaluated by physician and therapy. 9. DVT Px - on rivaroxaban 10mg po with dinner x 2 weeks (stop date 11/07), Scr = 0.51, Hgb = 8.9 (stable), platelets = 304. Continue to monitor renal function, hemoglobin, s/sx bleeding, s/sx of VTE. Psychotropic Medications: None Unnecessary Medications: None Bowel Regimen: Currently on programmed PEG 17gm po daily and Senna-S 1 tab po bid with bisacodyl 10mg po daily prn (last given 10/26). Per nursing notes, pt had large BM on 10/27 after soap chris enema. Continue to monitor BMs and prn use of bisacodyl. Now that patient is off of oxycodone, may need to make programmed PEG and/ or Senna-S prn at some point. Date of Note:: 10/28/21
--- NOTE | 2021-10-28 10:37 | WOUNDNOTE ---
wound photo: abdomen
[2021-10-28 10:40] VITALS: PULSE 109; RESP 18; O2SAT 91
--- NOTE | 2021-10-28 12:57 | PCM.PN.ID ---
Physical Exam Narrative Feeling frustrate about being here. No fever. Eating and drinking without issue. No fever. Const alert and no apparent distress General Appearance: cooperative Resp normal air movement and clear to auscultation bilaterally Cardio regular rate and regular rhythm GI soft to palpation and non-distended Skin Skin Narrative: reviewed photos ID ID: Route of nutrition/ use of supplements: [] Nutritional Intake: [] IV Site: [] Wills Catheter: [] Assessment & Plan Assessment/Plan (1) Postoperative wound infection: PLAN: Abd incision with cx showing steve, CoNS x2, and ecoli. Will start linezolid and augmentin for coverage, cont fluc. Will follow, d/w Dr. Taveras
--- NOTE | 2021-10-28 13:52 | MDS.RN ---
In room to talk with resident and spouse about upcoming plan of care meeting, and to schedule a time. Resident visibly upset, states I have bills I need to take care of, my phone and utilities are about to be shut off, and my is autistic, and cannot take care of this, I might leave AMA. Encouraged resident to consider his medical situation. Resident states I will do what i have to do to take care of my family. Asking to speak with his surgeon, charge account identification clerk notified. tank worker notified.
[2021-10-28] MEDS: Alteplase 2 MG/2 ML Vial IV (14:04)
[2021-10-28 14:26] VITALS: BP 135/78; PULSE 110; RESP 20; TEMP 36.8; O2SAT 98
--- NOTE | 2021-10-28 15:02 | CASEMGMT ---
Addendum entered by Em Tellez 10/28/21 15:37: Nursing complete O2 testing and pt is stable without the O2 during the FLO. Updated JOHN Donovan, she is okay. Updated nursing and pt. Original Note: Social Work Pt requesting assistance with paying bills. Spoke with pt about concerns. Pt stating he has not been home/able to pay his bills for two months. in room and she stated she tried to assist with was not successful due to disability. Assisted pt with problem solving such as paying bills online or contacting the [employer] directly explaining situation and offer to pay via phone. Pt stated he will attempt to do that. Advised to ask for SW again if those do not work. Pt appreciative. Received call from JOHN Donovan from Dr. Taveras's office requesting FLO for pt to pay bills as she and Dr. Taveras understand his medical situation. Explained SW had offered assistance and will be willing to speak with Dr. Flores to get approval for FLO. JOHN Donovan appreciative and asked for day/time of FLO to coordinate dressing changes. Cortexted Dr. Flores explaining - Dr. Flores agreed to approve short FLO. Updated Venus PA - she stated Dr. Taveras would prefer for pt to be off of O2 prior to FLO. Explained unsure of O2 need but pt needing to pay bills before start of new month. However, will have nursing do O2 testing to determine need for O2. PA expressed understanding. Spoke with CONSUMER MARKETING MANAGER and requested O2 testing and to communicated back to to finalize details for FLO. Spoke with pt and updated on above. Inquired about timeframe. Pt stated he would leave about 10 am to around 1-2 pm. Explained OT and dressing change would need to be completed prior to departure and PT upon return. Pt agreed. Will remain involved and keep all parties updated as plans become finalized. Em Tellez, DOBBY [employer]OM [employer]ER [employer] MUSIC TEACHER
--- NOTE | 2021-10-28 15:12 | PN.SURG_ITS ---
Subjective Subjective Patient seen and examined during afternoon rounds. He reports frustration with some social issues outside the hospital. He confirms that he is still tolerating his diet without issue and had a large bowel movement earlier today. He also confirms that his mental clouding is improved. Objective Data Objective Data Vital Signs: Vital Signs Temp Pulse Resp BP Pulse Ox 98.2 F 110 H 20 H 135/78 H 98 10/28/21 14:26 10/28/21 14:26 10/28/21 14:26 10/28/21 14:26 10/28/21 14:26 Oxygen Flow Rate (L/min) 2 Oxygen Delivery Method Nasal Cannula Weight: 243 lb 8 oz Body Mass Index (BMI) 28.8 Intake & Output: Intake and Output for Last 24 Hours 10/26/21 10/27/21 10/28/21 23:59 23:59 23:59 Intake Total 2080 / 2080 2392.5 / 2392.5 1080 / 1080 Output Total 900 / 900 850 / 850 825 / 825 Balance 1180 / 1180 1542.5 / 1542.5 255 / 255 Lab / Micro Data Result Diagrams: 10/27/21 06:58 10/27/21 06:58 Micro: Microbiology 10/26/21 12:00 Urine Catheter - Catheter Urine Culture - Preliminary Culture exhibits no growth. 10/26/21 13:00 Nasal Secretion SARS-CoV-2 Antigen (Rapid) - Final Physical Exam Const Constitutional Narrative: Appears to be in some distress from his social issue concerns Resp normal respiratory effort Resp Narrative: Supplemental oxygen in place via nasal cannula GI GI Narrative: Nondistended, soft, mildly tender to palpation about the laparotomy. Overall, improved appearance to the patient's. Incisional tissues with less erythema. There is also good granulation tissue on the wound base. Decreased quantity of thicker yellow-green drainage. There is a small amount of fibrinous debris along the inferior portion of the patient's wound that was removed. Assessment & Plan Assessment/Plan (1) S/P laparoscopic appendectomy: PLAN: Patient required return to the OR on 09/24/2021 after pathology reported they did not identify appendix in the patient's surgical specimen from 09/21/2021. Therefore, patient required return to the OR for hand-assisted laparoscopic appendectomy with drain placement. Unfortunately, patient developed evidence of a controlled perforation from the terminal ileum?per drain study 10/01/2021. He was thus n.p.o. and initiated TPN. He was then taken for open ileocecectomy on 10/02/2021 (2) Appendicitis with perforation: PLAN: Status post above operative course (3) Perforation of small intestine: PLAN: Patient underwent open ileocecectomy on 10/02/2021. Patient was held NPO after character of wound drainage became more malodorous and cloudy. Bedside wound exploration performed but not well tolerated. Did find evidence of necrotic fascia and patient was posted for operative exploration. Underwent re- exploratory laparotomy on 10/09/2021 with abdominal washout, drain placement, fascial debridement, and abdominal wall closure with placement of retention sutures. (4) Intra-abdominal abscess: PLAN: s/p ab washout with additional drain placement 10/09/21 (5) Postoperative wound infection: PLAN: s/p fascial debridement and ab wall closure 10/09/21 (skin left open) Improved mental status now without oxycodone and Flexeril. Patient still having adequate pain control on acetaminophen only. Patient remains afebrile. Tolerating regular diet. Continues to have ongoing bowel function as well as supplementation with ensures. Improved drainage from wound. Wound cultures now show staph epidermidis, staph hemolyticus, E. coli, and presumptive C albicans. I have initiated treatment with Diflucan 200 mg daily x7 days. Did reconsult infectious disease and Dr. Lopez recommends 7 to 10-day course of linezolid and Augmentin. These have both been begun. Working to wean patient's oxygen requirement.
[2021-10-28 15:25] VITALS: O2SAT 90; O2SAT 93
[2021-10-28] MEDS: Rivaroxaban 10 MG Tablet PO (17:36)
[2021-10-28] MEDS: Amox/Clavulanate 875 MG Tablet PO (17:37)
[2021-10-28] MEDS: Linezolid 600 MG Tablet PO (17:38)
[2021-10-29] MEDS: Doxazosin 1 MG Tablet PO (06:11)
[2021-10-29] MEDS: Senna/Docusate Sodium 1 Tablet PO ×2 (06:11→17:51)
[2021-10-29] MEDS: Fluconazole 100 MG Tablet 200 MG PO (06:11)
[2021-10-29] MEDS: Magnesium Chloride 64 MG Delay Rel.Tablet 128 MG PO (06:12)
[2021-10-29] MEDS: Linezolid 600 MG Tablet PO ×2 (06:12→17:51)
[2021-10-29] MEDS: Amox/Clavulanate 875 MG Tablet PO ×2 (06:12→17:51)
[2021-10-29] MEDS: Nystatin Powder 15gm Bottle 1 APPLIC TOPICAL ×2 (06:12→20:52)
[2021-10-29] MEDS: Menthol/Lanolin/Calamine/Znox 113 GM Tube 1 APPLIC TOPICAL ×2 (06:12→20:52)
--- NOTE | 2021-10-29 07:50 | NURSING ---
ruben hinds/wound nurse changed pt dressing today.
[2021-10-29] MEDS: Juven (unflavored) Packet 1 PACKET PO ×2 (07:51→17:50)
[2021-10-29] MEDS: Acetaminophen 500 MG Tablet PO (07:54)
--- NOTE | 2021-10-29 10:18 | NURSING ---
PT LEFT AT 10AM BY WHEEL CHAIR WITH FOR FLO. OK'D PER AND [id number],BACKEND TESTER.
[2021-10-29 11:28] VITALS: O2SAT 96
--- NOTE | 2021-10-29 14:04 | NURSING ---
PT RETURNED FROM FLO AT 1350 BY WHEEL CHAIR.
[2021-10-29 14:09] VITALS: BP 125/73; PULSE 129; RESP 18; TEMP 36.8; O2SAT 94
[2021-10-29] MEDS: 0.9% Saline Lock 10 ML Syringe IV (14:20)
--- NOTE | 2021-10-29 15:30 | CHAPLAIN ---
Type of Pastoral Visit ___ Initial Visit _x__ Follow-up Visit ___ On-call Visit ___ General Patient Visit ___ Spiritual Assessment ___ Family Conference ___ Bereavement ___ Rapid Response ___ Code Blue ___ Other (describe below) Pastoral Care Referral From _x__ Patient ___ Family ___ Nurse ___ Physician ___ Dietary Service Aide ___ Vacuum Tester Cans ___ Other (describe below) Sacrament/Intervention _x__ Active listening ___ Anointing ___ Confucianist ___ Bereavement ___ Communion _x__ Angelica exploration ___ ___ Life review _x__ Prayer ___ Reconciliation ___ Sacrament of Sick _x__ Supportive presence ___ Wedding ___ Other (describe below) Pastoral Comments this patient has been seen several times while a patient in [facility] recently; pt is welcoming and expresses great gratitude for help given by this manager transfusion; pt was able to have a short visit home and was very thankful about this opportunity; pt saying that he is seeing progress and is thankful; pt to remain in TCU for a time longer but shows ability to cope with that well; prayer and presence received well
--- NOTE | 2021-10-29 15:44 | PN.SURG_ITS ---
Subjective Subjective Patient seen and examined during afternoon rounds. He reports that he is feeling much better having had to stay past earlier today and getting his affairs in order. Minimal abdominal discomfort reported tolerating regular diet without issue. Objective Data Objective Data Vital Signs: Vital Signs Temp Pulse Resp BP Pulse Ox 98.3 F 129 H 18 125/73 H 94 10/29/21 14:09 10/29/21 14:09 10/29/21 14:09 10/29/21 14:09 10/29/21 14:09 Oxygen Flow Rate (L/min) 2 Oxygen Delivery Method Room Air Weight: 238 lb 12.8 oz Body Mass Index (BMI) 28.8 Intake & Output: Intake and Output for Last 24 Hours 10/27/21 10/28/21 10/29/21 23:59 23:59 23:59 Intake Total 2392.5 / 2392.5 1320 / 1320 480 / 480 Output Total 850 / 850 825 / 825 Balance 1542.5 / 1542.5 495 / 495 480 / 480 Lab / Micro Data Result Diagrams: 10/27/21 06:58 10/27/21 06:58 Micro: Microbiology 10/26/21 12:00 Urine Catheter - Catheter Urine Culture - Final Culture exhibits no growth. 10/26/21 13:00 Nasal Secretion SARS-CoV-2 Antigen (Rapid) - Final Physical Exam Const oriented x3 and no apparent distress Resp normal respiratory effort GI GI Narrative: Mildly distended, tender to palpation about laparotomy site and retention sutures only. Scant yellow-green drainage to dressing?otherwise healthy, viable granulation tissue along wound bed Assessment & Plan Assessment/Plan (1) S/P laparoscopic appendectomy: PLAN: Patient required return to the OR on 09/24/2021 after pathology reported they did not identify appendix in the patient's surgical specimen from 09/21/2021. Therefore, patient required return to the OR for hand-assisted laparoscopic appendectomy with drain placement. Unfortunately, patient developed evidence of a controlled perforation from the terminal ileum?per drain study 10/01/2021. He was thus n.p.o. and initiated TPN. He was then taken for open ileocecectomy on 10/02/2021 (2) Appendicitis with perforation: PLAN: Status post above operative course (3) Perforation of small intestine: PLAN: Patient underwent open ileocecectomy on 10/02/2021. Patient was held NPO after character of wound drainage became more malodorous and cloudy. Bedside wound exploration performed but not well tolerated. Did find evidence of necrotic fascia and patient was posted for operative exploration. Underwent re- exploratory laparotomy on 10/09/2021 with abdominal washout, drain placement, fascial debridement, and abdominal wall closure with placement of retention sutures. (4) Intra-abdominal abscess: PLAN: s/p ab washout with additional drain placement 10/09/21 (5) Postoperative wound infection: PLAN: s/p fascial debridement and ab wall closure 10/09/21 (skin left open) Patient doing quite well today following his day pass out of the hospital. No altered mental status. Patient has remained off oxygen. Patient remains afebrile. Tolerating soft diet will advance to unrestricted regular diet. Continues to have ongoing bowel function. Continued improved/decreased drainage from wound. Inferior portion of wound was packed with Dakin's soaked gauze. Wound cultures now show staph epidermidis, staph hemolyticus, E. coli, and presumptive C albicans. Treatment initiated with Diflucan 200 mg daily x7 days and 7 to 10-day course of linezolid and Augmentin. Working to wean patient's oxygen requirement. Charges/Coding Visit Charges Inpatient E&M: 82733 [facility] Subs L2
[2021-10-29] MEDS: Rivaroxaban 10 MG Tablet PO (17:50)
[2021-10-29 17:55] VITALS: PULSE 103
[2021-10-29 21:33] VITALS: PULSE 105; RESP 18; O2SAT 91
[2021-10-30 06:15] VITALS: BP 131/78; PULSE 97
[2021-10-30] MEDS: Amox/Clavulanate 875 MG Tablet PO ×2 (06:16→17:24)
[2021-10-30] MEDS: Linezolid 600 MG Tablet PO ×2 (06:16→17:24)
[2021-10-30] MEDS: Senna/Docusate Sodium 1 Tablet PO ×2 (06:16→17:24)
[2021-10-30] MEDS: Fluconazole 100 MG Tablet 200 MG PO (06:18)
[2021-10-30] MEDS: Doxazosin 1 MG Tablet PO (06:19)
[2021-10-30] MEDS: Magnesium Chloride 64 MG Delay Rel.Tablet 128 MG PO (06:19)
[2021-10-30] MEDS: Menthol/Lanolin/Calamine/Znox 113 GM Tube 1 APPLIC TOPICAL ×3 (06:19→20:42)
[2021-10-30] MEDS: Nystatin Powder 15gm Bottle 1 APPLIC TOPICAL ×2 (06:20→17:27)
[2021-10-30] MEDS: Juven (unflavored) Packet 1 PACKET PO ×2 (08:04→17:24)
[2021-10-30] MEDS: Acetaminophen 500 MG Tablet PO (08:33)
--- NOTE | 2021-10-30 10:24 | CASEMGMT ---
Social Work IDT met with patient and for care plan meeting. Discussed patient's progress in PT/OT and nursing. Pt making progress. Explained Medicare benefit. Pt does not have secondary insurance so day 21 is 11/12. The goal is to DC by then with . Pt has twice daily dressing changes and has been taught how to change dressings for DC. SW to continue to follow for DC planning. KALA BentleyW
--- NOTE | 2021-10-30 12:21 | PN.ID_ITS ---
Physical Exam Narrative Feeling better, wound improving Const alert and no apparent distress General Appearance: cooperative Resp normal air movement and clear to auscultation bilaterally Cardio regular rate and regular rhythm GI soft to palpation and non-distended Skin no rashes or lesions noted ID ID: Route of nutrition/ use of supplements: [] Nutritional Intake: [] IV Site: [] Wills Catheter: [] Assessment & Plan Assessment/Plan (1) Postoperative wound infection: PLAN: Abd incision with cx showing steve, CoNS x2, and ecoli. Cont li nezolid and augmentin for coverage, cont fluc. Improving per wound care. Will follow
[2021-10-30 14:32] VITALS: BP 117/60; PULSE 95; RESP 16; TEMP 36.2; O2SAT 93
--- NOTE | 2021-10-30 14:59 | NURSING ---
Exotic Dancer Note: MDS section F and interview complete.
[2021-10-30] MEDS: Rivaroxaban 10 MG Tablet PO (17:25)
[2021-10-30] MEDS: 0.9% Saline Lock 10 ML Syringe IV (17:30)
--- NOTE | 2021-10-30 22:38 | CPS ---
[2234] Pt. refusing use of NIV at night time
[2021-10-31] MEDS: Menthol/Lanolin/Calamine/Znox 113 GM Tube 1 APPLIC TOPICAL ×3 (05:21→22:36)
[2021-10-31] MEDS: Senna/Docusate Sodium 1 Tablet PO (05:21)
[2021-10-31] MEDS: Amox/Clavulanate 875 MG Tablet PO ×2 (05:21→17:05)
[2021-10-31] MEDS: Nystatin Powder 15gm Bottle 1 APPLIC TOPICAL ×2 (05:21→17:07)
[2021-10-31] MEDS: Polyethylene Glycol 3350 17 GM PACKET PO (05:21)
[2021-10-31] MEDS: Linezolid 600 MG Tablet PO ×2 (05:21→17:05)
[2021-10-31] MEDS: Magnesium Chloride 64 MG Delay Rel.Tablet 128 MG PO (05:21)
[2021-10-31] MEDS: Doxazosin 1 MG Tablet PO (05:21)
[2021-10-31] MEDS: Fluconazole 100 MG Tablet 200 MG PO (05:21)
[2021-10-31 05:58] LABS: Absolute Lymphocyte Count 1.24 X10^3/uL (0.83-4.51); Absolute Neutrophil Count 6.6 X10^3/uL (2.0-7.7); Basophil# 0.09 X10^3/uL; Eosinophil# 0.31 X10^3/uL; Eosinophils% 3.3 % (0-5); Hematocrit 28.3 % (40-54); Hemoglobin 9.1 g/dL (13.0-16.5); Lymphocyte # 1.24 X10^3/ul (0.83-4.51); Lymphocyte % 13.3 % (19-41); Mean Corp Hgb Conc 32.2 g/dL (32-36); Mean Corpuscular Hgb 29.2 pg (27.0-32.0); Mean Corpuscular Volume 90.7 fL (80-94); Mean Platelet Vol. 9.7 fl (6.2-12.0); Monocyte# 1.02 X10^3/uL; Monocyte% 10.9 % (0-10); NRBC Flagged by Analyzer 0 % (0-5); Neutrophil # 6.64 X10^3/uL (2.7-7.7); Neutrophil % 71.1 % (47-70); Platelet Count 361 K/mm3 (150-450); RBC Distribution Width CV 15.3 % (11.6-14.6); RBC Distribution Width SD 50.4 fl (35.1-43.9); Red Blood Count 3.12 M/mm3 (4.6-6.2); White Blood Count 9.3 K/mm3 (4.4-11.0)
[2021-10-31 06:34] LABS: Anion Gap 5 (5-15); BUN 16 mg/dL (7-18); BUN/Creat Ratio 31.1 RATIO (10-20); Chloride 105 mmol/L (98-107); Creatinine, Serum 0.52 mg/dL (0.70-1.30); EST Glomerular Filtration Rate 173 mL/min (>60); Est Glom Filt Rate - Afr Amer 209 mL/min (>60); Estimated Creatinine Clearance 185.63 ml/min; Glucose 116 mg/dL (74-106); Potassium 4.1 mmol/L (3.5-5.1); Sodium Level 139 mmol/L (136-145)
[2021-10-31 06:42] VITALS: O2SAT 94
[2021-10-31] MEDS: Juven (unflavored) Packet 1 PACKET PO ×2 (07:39→17:04)
[2021-10-31] MEDS: Acetaminophen 500 MG Tablet PO (07:41)
[2021-10-31] MEDS: Tuberculin,Purif.prot.deriv. 50 TU/ML Vial 0.1 ML ID (10:04)
--- NOTE | 2021-10-31 12:09 | CASEMGMT ---
Social Work Nursing notified this worker pt requesting to DC home. Contacted Leti, wound nurse, to inquire about wounds, dressing changes, and healing. Leti reports she changes dressings in the AM and Dr. Taveras changes dressings in the afternoon. Dr. Taveras reports that is present when they arrive, but steps out of the room during changes. Staff concerned about ability of to change dressings at home and encourages to learn during stay. Dr. Taveras reported the goal is to have pt's wound closed by EDC 11/12. Spoke with pt and in room. Listened to pt's request for returning home, states, I just heal better at home. Validated feelings and offered pt can heal at home, but after the doctor's are ready to DC him. Explained above information. agreeable to be educated. Pt states she has experience with his dressing changes over the last 4 years and that won't be a problem. Explained pt can leave whenever he chooses, suggests not to leave AMA as the doctor's will not sign off on a discharge until wound closes, approx 11/12. Pt and expressed understanding. wants pt to stay. SW offered to assist with making stay more comfortable as pt states he gets a lot of interruptions and doesn't sleep well, but pt did not want to offer suggestions. Encouraged to close door to get privacy and quiet. Em Tellez, OFFENSIVE COORDINATOR SUPERVISOR WELDING EQUIPMENT REPAIRER
--- NOTE | 2021-10-31 12:34 | NURSING ---
Dr Taveras here and stated pt PICC can be removed. new order entered
--- NOTE | 2021-10-31 12:46 | PN.SURG_ITS ---
Subjective Subjective Patient states that he feels more down today and is hoping to arrange more day passes home if he has to stay until November 12. He denies any issues with his diet and confirms that he is still taking 2 ensures daily. Objective Data Objective Data Vital Signs: Vital Signs Temp Pulse Resp BP Pulse Ox 97.1 F L 95 16 117/60 94 10/30/21 14:32 10/30/21 14:32 10/30/21 14:32 10/30/21 14:32 10/31/21 06:42 Oxygen Flow Rate (L/min) 2 Oxygen Delivery Method Room Air Weight: 238 lb 12.8 oz Body Mass Index (BMI) 28.8 Intake & Output: Intake and Output for Last 24 Hours 10/29/21 10/30/21 10/31/21 23:59 23:59 23:59 Intake Total 960 / 960 360 / 360 240 / 240 Balance 960 / 960 360 / 360 240 / 240 Lab / Micro Data Result Diagrams: 10/31/21 05:11 10/31/21 05:11 Labs: Laboratory Results - last 24 hr 10/31/21 05:11: WBC 9.3, RBC 3.12 L, Hgb 9.1 L, Hct 28.3 L, MCV 90.7, MCH 29.2, MCHC 32.2, RDW Std Deviation 50.4 H, RDW Coeff of Ar 15.3 H, Plt Count 361, MPV 9.7, Immature Gran % (Auto) 0.400, Neut % (Auto) 71.1 H, Lymph % (Auto) 13.3 L, [place] % (Auto) 10.9 H, Eos % (Auto) 3.3, Baso % (Auto) 1.0, Absolute Neuts (auto) 6.6, Absolute Lymphs (auto) 1.24, Nucleated RBC % 0 10/31/21 05:11: Sodium 139, Potassium 4.1, Chloride 105, Carbon Dioxide 29.0, Anion Gap 5, BUN 16, Creatinine 0.52 L, Estim Creat Clear Calc 185.63, Est GFR (MDRD) Af Amer 209, Est GFR (MDRD) Non-Af 173, BUN/Creatinine Ratio 31.1 H, Glucose 116 H, Calcium 8.0 L Micro: Microbiology 10/31/21 06:31 Nasal Secretion SARS-CoV-2 Antigen (Rapid) - Final 10/26/21 12:00 Urine Catheter - Catheter Urine Culture - Final Culture exhibits no growth. 10/26/21 13:00 Nasal Secretion SARS-CoV-2 Antigen (Rapid) - Final Physical Exam Const no apparent distress Resp normal respiratory effort GI GI Narrative: Nondistended, soft, tender to palpation only about the laparotomy. Decreased yellow-green drainage from the wound and improved appearance of the periincisional skin. Healthy granulation tissue along wound base. Assessment & Plan Assessment/Plan (1) S/P laparoscopic appendectomy: PLAN: Patient required return to the OR on 09/24/2021 after pathology reported they did not identify appendix in the patient's surgical specimen from 09/21/2021. Therefore, patient required return to the OR for hand-assisted laparoscopic appendectomy with drain placement. Unfortunately, patient developed evidence of a controlled perforation from the terminal ileum?per drain study 10/01/2021. He was thus n.p.o. and initiated TPN. He was then taken for open ileocecectomy on 10/02/2021 (2) Appendicitis with perforation: PLAN: Status post above operative course (3) Perforation of small intestine: PLAN: Patient underwent open ileocecectomy on 10/02/2021. Patient was held NPO after character of wound drainage became more malodorous and cloudy. Bedside wound exploration performed but not well tolerated. Did find evidence of necrotic fascia and patient was posted for operative exploration. Underwent re- exploratory laparotomy on 10/09/2021 with abdominal washout, drain placement, fascial debridement, and abdominal wall closure with placement of retention sutures. (4) Intra-abdominal abscess: PLAN: s/p ab washout with additional drain placement 10/09/21 (5) Postoperative wound infection: PLAN: s/p fascial debridement and ab wall closure 10/09/21 (skin left open) Patient struggling somewhat mentally given the duration of his stay and requesting additional day passes. Patient remains afebrile. Labs were reviewed from yesterday and are improving. Tolerating unrestricted regular diet. Continues to have ongoing bowel function. Continued improved/decreased drainage from wound. Wound packed with saline soaked gauzes given decreased drainage. Wound cultures now show staph epidermidis, staph hemolyticus, E. coli, and pre sumptive C albicans. Treatment initiated with Diflucan 200 mg daily x7 days and 7 to 10-day course of linezolid and Augmentin. With the improvements in patient's wound and normal white count, I have asked nursing to pull the patient's PICC line.
[2021-10-31 16:00] VITALS: BP 118/70; PULSE 115; RESP 18; TEMP 36.3; O2SAT 96
--- NOTE | 2021-10-31 16:39 | NURSING ---
Order for prn Motrin clarified since pt is taking xarelto. Continue tx as ordered.
[2021-10-31] MEDS: Rivaroxaban 10 MG Tablet PO (17:05)
--- NOTE | 2021-11-01 02:41 | NURSING ---
Patient continues to refuse Bipap and Oxygen. Educated on importance, patient still refuses.
[2021-11-01] MEDS: Fluconazole 100 MG Tablet 200 MG PO (05:18)
[2021-11-01] MEDS: Linezolid 600 MG Tablet PO ×2 (05:18→17:44)
[2021-11-01] MEDS: Magnesium Chloride 64 MG Delay Rel.Tablet 128 MG PO (05:18)
[2021-11-01] MEDS: Doxazosin 1 MG Tablet PO (05:18)
[2021-11-01] MEDS: Amox/Clavulanate 875 MG Tablet PO ×2 (05:18→17:44)
[2021-11-01 05:21] VITALS: BP 146/84; PULSE 104
[2021-11-01 05:54] LABS: Anion Gap 3 (5-15); BUN 17 mg/dL (7-18); BUN/Creat Ratio 28.2 RATIO (10-20); Calcium,Total 8.3 mg/dL (8.5-10.1); Chloride 107 mmol/L (98-107); EST Glomerular Filtration Rate 145 mL/min (>60); Est Glom Filt Rate - Afr Amer 175 mL/min (>60); Estimated Creatinine Clearance 160.88 ml/min; Glucose 122 mg/dL (74-106); Potassium 4.4 mmol/L (3.5-5.1); Sodium Level 140 mmol/L (136-145)
[2021-11-01 07:00] VITALS: O2SAT 95
[2021-11-01] MEDS: Menthol/Lanolin/Calamine/Znox 113 GM Tube 1 APPLIC TOPICAL ×3 (08:15→21:16)
[2021-11-01] MEDS: Nystatin Powder 15gm Bottle 1 APPLIC TOPICAL (08:15)
[2021-11-01] MEDS: Juven (unflavored) Packet 1 PACKET PO ×2 (08:16→17:43)
[2021-11-01] MEDS: Acetaminophen 500 MG Tablet PO (08:20)
--- NOTE | 2021-11-01 12:13 | PCM.PN.ID ---
Physical Exam Narrative Diarrhea last night, improved since stopping bowel regimen. No abd pain, no fever, no blood in stool. Const alert and no apparent distress General Appearance: cooperative Resp normal air movement and clear to auscultation bilaterally Cardio regular rate and regular rhythm GI soft to palpation, non-tender and non-distended Skin no rashes or lesions noted ID ID: Route of nutrition/ use of supplements: [] Nutritional Intake: [] IV Site: [] Wills Catheter: [] Assessment & Plan Assessment/Plan (1) Postoperative wound infection: PLAN: Abd incision with cx showing steve, CoNS x2, and ecoli. Cont linezolid and augmentin for coverage, cont fluc. Improving wound. Day 4 of abx, plan on 7-10 days total depending on clinical progress. Having diarrhea now, improved since stopping bowel regimen. If diarrhea continues, would check cdiff. Will follow
[2021-11-01 14:37] VITALS: BP 124/92; PULSE 100; RESP 22; TEMP 35.7; O2SAT 96
--- NOTE | 2021-11-01 16:19 | PN.SURG_ITS ---
Subjective Subjective Patient seen and examined during afternoon rounds. He reports that he is feeling somewhat better mentally, but did have a bit of a difficult night with frequent diarrhea. He estimates that he went to the bathroom 6-7 times. Objective Data Objective Data Vital Signs: Vital Signs Temp Pulse Resp BP Pulse Ox 96.3 F L 100 22 H 124/92 H 96 11/01/21 14:37 11/01/21 14:37 11/01/21 14:37 11/01/21 14:37 11/01/21 14:37 Oxygen Flow Rate (L/min) 2 Oxygen Delivery Method Room Air Weight: 238 lb 12.8 oz Body Mass Index (BMI) 28.8 Intake & Output: Intake and Output for Last 24 Hours 10/30/21 10/31/21 11/01/21 23:59 23:59 23:59 Intake Total 360 / 360 960 / 960 800 / 800 Balance 360 / 360 960 / 960 800 / 800 Lab / Micro Data Result Diagrams: 10/31/21 05:11 11/01/21 05:09 Labs: Laboratory Results - last 24 hr 11/01/21 05:09: Sodium 140, Potassium 4.4, Chloride 107, Carbon Dioxide 30.0, Anion Gap 3 L, BUN 17, Creatinine 0.60 L, Estim Creat Clear Calc 160.88, Est GFR (MDRD) Af Amer 175, Est GFR (MDRD) Non-Af 145, BUN/Creatinine Ratio 28.2 H, Glucose 122 H, Calcium 8.3 L Micro: Microbiology 10/31/21 06:31 Nasal Secretion SARS-CoV-2 Antigen (Rapid) - Final 10/26/21 12:00 Urine Catheter - Catheter Urine Culture - Final Culture exhibits no growth. 10/26/21 13:00 Nasal Secretion SARS-CoV-2 Antigen (Rapid) - Final Physical Exam Const no apparent distress Resp normal respiratory effort GI GI Narrative: Nondistended, soft, nontender to palpation. Wound with continued improvements in periincisional skin as well as decreased drainage. No debridement required, and packing performed with saline soaked gauze. Assessment & Plan Assessment/Plan (1) S/P laparoscopic appendectomy: PLAN: Patient required return to the OR on 09/24/2021 after pathology reported they did not identify appendix in the patient's surgical specimen from 09/21/2021. Therefore, patient required return to the OR for hand-assisted laparoscopic appendectomy with drain placement. Unfortunately, patient developed evidence of a controlled perforation from the terminal ileum?per drain study 10/01/2021. He was thus n.p.o. and initiated TPN. He was then taken for o pen ileocecectomy on 10/02/2021 (2) Appendicitis with perforation: PLAN: Status post above operative course (3) Perforation of small intestine: PLAN: Patient underwent open ileocecectomy on 10/02/2021. Patient was held NPO after character of wound drainage became more malodorous and cloudy. Bedside wound exploration performed but not well tolerated. Did find evidence of necrotic fascia and patient was posted for operative exploration. Underwent re- exploratory laparotomy on 10/09/2021 with abdominal washout, drain placement, fascial debridement, and abdominal wall closure with placement of retention sutures. (4) Intra-abdominal abscess: PLAN: s/p ab washout with additional drain placement 10/09/21 (5) Postoperative wound infection: PLAN: s/p fascial debridement and ab wall closure 10/09/21 (skin left open) Patient with improved mental status but still requesting additional day passes. Patient remains afebrile. Did have a number of bouts of loose stool yesterday. Tolerating unrestricted regular diet. Continued improved/decreased drainage from wound. Wound packed with saline soaked gauzes given decreased drainage. Wound cultures now show staph epidermidis, staph hemolyticus, E. coli, and presumptive C albicans. Treatment initiated with Diflucan 200 mg daily x7 days and 7 to 10-day course of linezolid and Augmentin. We will reassess the wound next week for potential closure by secondary intention. Charges/Coding Visit Charges Inpatient E&M: 98463 [facility] Subs L2
[2021-11-01] MEDS: Rivaroxaban 10 MG Tablet PO (17:43)
[2021-11-01 21:19] VITALS: PULSE 106; RESP 16; O2SAT 96
--- NOTE | 2021-11-01 21:29 | NURSING ---
During assessment, patient refused to let this Nurse apply Eucerin or Nystatin powder. Patient did allow for mauricio.
--- NOTE | 2021-11-02 02:43 | NURSING ---
Patient continues to refuse Bipap and Oxygen. Educated on importance, patient still refuses.
[2021-11-02] MEDS: Doxazosin 1 MG Tablet PO (05:12)
[2021-11-02] MEDS: Amox/Clavulanate 875 MG Tablet PO ×2 (05:12→17:25)
[2021-11-02] MEDS: Magnesium Chloride 64 MG Delay Rel.Tablet 128 MG PO (05:12)
[2021-11-02] MEDS: Linezolid 600 MG Tablet PO ×2 (05:12→17:25)
[2021-11-02] MEDS: Nystatin Powder 15gm Bottle 1 APPLIC TOPICAL ×2 (05:14→17:28)
[2021-11-02] MEDS: Menthol/Lanolin/Calamine/Znox 113 GM Tube 1 APPLIC TOPICAL ×3 (05:14→20:54)
[2021-11-02 05:17] VITALS: BP 132/85; PULSE 98
--- NOTE | 2021-11-02 05:20 | NURSING ---
Patient requesting for Eucerin to be changed to PRN. RN aware.
[2021-11-02 06:47] VITALS: O2SAT 92
[2021-11-02 08:14] LABS: Anion Gap 5 (5-15); BUN 16 mg/dL (7-18); BUN/Creat Ratio 26.9 RATIO (10-20); Calcium,Total 8.4 mg/dL (8.5-10.1); Chloride 105 mmol/L (98-107); EST Glomerular Filtration Rate 146 mL/min (>60); Est Glom Filt Rate - Afr Amer 177 mL/min (>60); Estimated Creatinine Clearance 160.88 ml/min; Glucose 110 mg/dL (74-106); Sodium Level 136 mmol/L (136-145)
[2021-11-02] MEDS: Juven (unflavored) Packet 1 PACKET PO ×2 (08:40→17:24)
[2021-11-02 14:36] VITALS: BP 133/76; PULSE 101; RESP 18; TEMP 36.3; O2SAT 95
--- NOTE | 2021-11-02 14:42 | NURSING ---
Wound dressing changed by Dr. Messina this am. Dressing dry clean and intact. No complaints/concerns from patient.
--- NOTE | 2021-11-02 15:15 | NURSING ---
Cdiff order placed, per Dr. Messina's V.O.
[2021-11-02] MEDS: Senna/Docusate Sodium 1 Tablet PO (17:25)
[2021-11-02] MEDS: Rivaroxaban 10 MG Tablet PO (17:25)
[2021-11-03] MEDS: Linezolid 600 MG Tablet PO ×2 (05:45→17:53)
[2021-11-03] MEDS: Magnesium Chloride 64 MG Delay Rel.Tablet 128 MG PO (05:45)
[2021-11-03] MEDS: Doxazosin 1 MG Tablet PO (05:46)
[2021-11-03] MEDS: Menthol/Lanolin/Calamine/Znox 113 GM Tube 1 APPLIC TOPICAL ×3 (05:46→19:53)
[2021-11-03] MEDS: Amox/Clavulanate 875 MG Tablet PO ×2 (05:46→17:52)
[2021-11-03] MEDS: Nystatin Powder 15gm Bottle 1 APPLIC TOPICAL ×2 (05:47→17:56)
[2021-11-03 07:29] LABS: Anion Gap 7 (5-15); BUN 16 mg/dL (7-18); BUN/Creat Ratio 22.5 RATIO (10-20); Calcium,Total 8.6 mg/dL (8.5-10.1); Chloride 105 mmol/L (98-107); Creatinine, Serum 0.71 mg/dL (0.70-1.30); EST Glomerular Filtration Rate 119 mL/min (>60); Est Glom Filt Rate - Afr Amer 145 mL/min (>60); Estimated Creatinine Clearance 135.95 ml/min; Glucose 151 mg/dL (74-106); Potassium 4.1 mmol/L (3.5-5.1); Sodium Level 137 mmol/L (136-145)
[2021-11-03 07:45] VITALS: O2SAT 95
[2021-11-03] MEDS: Juven (unflavored) Packet 1 PACKET PO ×2 (07:46→17:52)
--- NOTE | 2021-11-03 09:18 | NURSING ---
Notified Dr. Flores of pt having loose stools, received order for Lactobacillus BID.
[2021-11-03] MEDS: Acetaminophen 500 MG Tablet PO (12:15)
[2021-11-03 14:24] VITALS: BP 115/72; PULSE 98; RESP 18; TEMP 36.2; O2SAT 94
[2021-11-03] MEDS: Rivaroxaban 10 MG Tablet PO (17:52)
[2021-11-04] MEDS: Magnesium Chloride 64 MG Delay Rel.Tablet 128 MG PO (04:59)
[2021-11-04] MEDS: Amox/Clavulanate 875 MG Tablet PO ×2 (04:59→17:28)
[2021-11-04] MEDS: Linezolid 600 MG Tablet PO ×2 (05:00→17:29)
[2021-11-04] MEDS: Doxazosin 1 MG Tablet PO (05:00)
[2021-11-04] MEDS: Nystatin Powder 15gm Bottle 1 APPLIC TOPICAL ×2 (05:01→17:29)
[2021-11-04] MEDS: Acetaminophen 500 MG Tablet PO ×3 (05:03→17:33)
[2021-11-04] MEDS: Menthol/Lanolin/Calamine/Znox 113 GM Tube 1 APPLIC TOPICAL ×3 (05:03→20:01)
--- NOTE | 2021-11-04 06:17 | NURSING ---
Addendum entered by Carmen Guzmán 11/04/21 06:38: Pt declines to to have this nurse assess affected area to lower back. Abdominal binder in place. Original Note: NEEDLE LEADER calls this nurse into pt's room w/ concerns regarding pt's concern w/ difficulty standing. Informs this nurse he was up in the bathroom, stood up to wipe himself, then sat back down on the toilet really hard. Denies numbness or tingling or increased issues w/ incontinence. Positive sensation to the plantar aspect of each foot. Pedal, posterior tibial, and radial pulses +2 bilateral. Skin pink, warm, and dry. Cap refill less than 3 seconds to fingernails and toenails. Trace edema noted to b/l feet. Rt foot drop. Decreased strength to RLE and foot drop which pt reports is baseline. Strength to BUE 5/5. Reports pain to low back in the central lumbar region at 2/10 that is constant and sharp. Informs this nurse he had back surgery in 1983 and 1994. Has experienced similar situations to this in the past which had briefly affected his mobility. In no acute distress. Offered to contact physician for further direction and he declines stating, I'll wait til they come in. Instructed to call staff for any further questions or concerns. Will continue to monitor.
[2021-11-04 06:27] LABS: Anion Gap 5 (5-15); BUN 18 mg/dL (7-18); BUN/Creat Ratio 32.1 RATIO (10-20); Calcium,Total 8.3 mg/dL (8.5-10.1); Chloride 104 mmol/L (98-107); Creatinine, Serum 0.56 mg/dL (0.70-1.30); EST Glomerular Filtration Rate 157 mL/min (>60); Est Glom Filt Rate - Afr Amer 190 mL/min (>60); Estimated Creatinine Clearance 172.37 ml/min; Glucose 117 mg/dL (74-106); Sodium Level 137 mmol/L (136-145)
[2021-11-04] MEDS: Juven (unflavored) Packet 1 PACKET PO ×2 (07:53→17:27)
--- NOTE | 2021-11-04 08:05 | RAD_ITS ---
STUDY: X-RAY - LUMBAR SPINE REASON FOR EXAM: Male, 61 years old. Low back pain after sitting down and quot;hard and quot; on commode TECHNIQUE: 4 view(s) of the lumbar spine were obtained. COMPARISON: None FINDINGS: Normal lumbar lordosis. There is no substantial scoliosis. There is a normal alignment of the vertebrae. There is multilevel endplate spondylosis of the lumbar vertebrae. There is multi-level degenerative disc disease with multi-level disc space narrowing. Patient is status post multilevel laminectomy and fusion with the screw and rigoberto fixation device. The soft tissue structures are unremarkable. RAD/L/S Spine Min 4 Views IMPRESSION: Multilevel fusion with screw and rigoberto fixation device. Multilevel disc space narrowing and degenerative changes. Electronically Signed: Sourav Rodriguez MD at 13:43 EDT ,
--- NOTE | 2021-11-04 08:15 | WOUNDNOTE ---
wound photo: abdomen
[2021-11-04 10:30] VITALS: PULSE 103; RESP 18; O2SAT 94
--- NOTE | 2021-11-04 12:24 | PCM.PN.SRG ---
Subjective Subjective Patient seen and examined during AM rounds. He reports that he is quite sore after falling this morning while using the bathroom. He states that he hit his tailbone rather hard on the bathroom floor and felt a popping sensation. Is particularly concerned given his history of instrumentation to his lumbar spine and complications thereafter. He denies any neurologic deficits but does have persistent pain. Objective Data Objective Data Vital Signs: Vital Signs Temp Pulse Resp BP Pulse Ox 97.1 F L 98 18 115/72 94 11/03/21 14:24 11/03/21 14:24 11/03/21 14:24 11/03/21 14:24 11/03/21 14:24 Oxygen Flow Rate (L/min) 2 Oxygen Delivery Method Room Air Weight: 238 lb 12.8 oz Body Mass Index (BMI) 28.8 Intake & Output: Intake and Output for Last 24 Hours 11/02/21 11/03/21 11/04/21 23:59 23:59 23:59 Intake Total 1200 / 1200 1600 / 1600 360 / 360 Balance 1200 / 1200 1600 / 1600 360 / 360 Lab / Micro Data Result Diagrams: 10/31/21 05:11 11/04/21 05:18 Labs: Laboratory Results - last 24 hr 11/04/21 05:18: Sodium 137, Potassium 4.0, Chloride 104, Carbon Dioxide 28.0, Anion Gap 5, BUN 18, Creatinine 0.56 L, Estim Creat Clear Calc 172.37, Est GFR (MDRD) Af Amer 190, Est GFR (MDRD) Non-Af 157, BUN/Creatinine Ratio 32.1 H, Glucose 117 H, Calcium 8.3 L Micro: Microbiology 11/02/21 15:15 Stool C. difficile DNA Amplification - Final 10/31/21 06:31 Nasal Secretion SARS-CoV-2 Antigen (Rapid) - Final 10/26/21 12:00 Urine Catheter - Catheter Urine Culture - Final Culture exhibits no growth. 10/26/21 13:00 Nasal Secretion SARS-CoV-2 Antigen (Rapid) - Final Physical Exam Const Constitutional Narrative: Mild distress from after mentioned fall this morning GI GI Narrative: Nondistended, soft, nontender to palpation. Laparotomy with retention sutures still in place but significantly improved erythema along the skin edges. Scant drainage from within the wound. Healthy granulation tissue at wound base Assessment & Plan Assessment/Plan (1) S/P laparoscopic appendectomy: PLAN: Patient required return to the OR on 09/24/2021 after pathology reported they did not identify appendix in the patient's surgical specimen from 09/21/2021. Therefore, patient required return to the OR for hand-assisted laparoscopic appendectomy with drain placement. Unfortunately, patient developed evidence of a controlled perforation from the terminal ileum?per drain study 10/01/2021. He was thus n.p.o. and initiated TPN. He was then taken for open ileocecectomy on 10/02/2021 (2) Appendicitis with perforation: PLAN: Status post above operative course (3) Perforation of small intestine: PLAN: Patient underwent open ileocecectomy on 10/02/2021. Patient was held NPO after character of wound drainage became more malodorous and cloudy. Bedside wound exploration performed but not well tolerated. Did find evidence of necrotic fascia and patient was posted for operative exploration. Underwent re-exploratory laparotomy on 10/09/2021 with abdominal washout, drain placement, fascial debridement, and abdominal wall closure with placement of retention sutures. (4) Intra-abdominal abscess: PLAN: s/p ab washout with additional drain placement 10/09/21 (5) Postoperative wound infection: PLAN: s/p fascial debridement and ab wall closure 10/09/21 (skin left open) Patient dealing with some soreness the level of his lumbar spine after fall this morning. Demonstrates no neurologic deficits. Lumbar x-rays are pending. Patient remains afebrile. Normal labs. Tolerating regular diet some diarrhea but with decreased frequency. Wound edges were reapproximated by secondary intention using 2-0 nylon stitches and this was well-tolerated. We will continue daily packing of the wound with plain packing strip, but if patient tolerates this well and his injuries from his fall are quickly resolved he may be eligible for discharge sooner than anticipated for 12 discharge date. Wound cultures now show staph epidermidis, staph hemolyticus, E. coli, and presumptive C albicans. Treatment initiated with Diflucan 200 mg daily x7 days and 7 to 10-day course of linezolid and Augmentin. Charges/Coding Visit Charges Inpatient E&M: [address] [facility] Subs L2
--- NOTE | 2021-11-04 12:29 | PCM.OP.PRO ---
Procedure Report Date of Procedure: 11/04/21 Procedure: Wound closure After obtaining verbal consent, patient's wound was prepped with Betadine on either side and a total of 7 mL 1% lidocaine were infiltrated about the wound edges to provide analgesia for the procedure. Then the wound edges were serially approximated with 2-0 nylon sutures to bring the wound edges into close approximation, but leaving interstices for future packing. This was overall well-tolerated and we were able to bring the wound edges together aside from in the upper third of the abdomen where the skin was too attenuated to hold a stitch. The interstices were packed with half-inch packing strip and a abdominal pad was applied for ongoing drainage. EBL: Less than 5 mL Complications: None
[2021-11-04 14:22] VITALS: BP 135/74; PULSE 99; RESP 16; TEMP 36.2; O2SAT 94
[2021-11-04] MEDS: Rivaroxaban 10 MG Tablet PO (17:28)
[2021-11-05] MEDS: Magnesium Chloride 64 MG Delay Rel.Tablet 128 MG PO (05:19)
[2021-11-05] MEDS: Linezolid 600 MG Tablet PO ×2 (05:19→16:43)
[2021-11-05] MEDS: Doxazosin 1 MG Tablet PO (05:19)
[2021-11-05] MEDS: Acetaminophen 500 MG Tablet PO (05:19)
[2021-11-05] MEDS: Nystatin Powder 15gm Bottle 1 APPLIC TOPICAL ×2 (05:21→16:47)
[2021-11-05] MEDS: Menthol/Lanolin/Calamine/Znox 113 GM Tube 1 APPLIC TOPICAL ×3 (05:21→21:14)
[2021-11-05] MEDS: Juven (unflavored) Packet 1 PACKET PO ×2 (08:06→16:42)
--- NOTE | 2021-11-05 10:28 | WOUNDNOTE ---
wound photo: abdomen
--- NOTE | 2021-11-05 10:28 | MDS.RN ---
Information for the mds was obtained from review of the clinical record, interview of resident, staff, and direct observation of resident's care.
[2021-11-05 16:00] VITALS: BP 124/71; PULSE 100; RESP 14; TEMP 36.4; O2SAT 92
[2021-11-05] MEDS: Senna/Docusate Sodium 1 Tablet PO (16:43)
[2021-11-05] MEDS: Rivaroxaban 10 MG Tablet PO (16:43)
[2021-11-05 21:01] VITALS: PULSE 106; RESP 16; O2SAT 95
[2021-11-06 05:17] VITALS: BP 146/89; PULSE 101
[2021-11-06] MEDS: Linezolid 600 MG Tablet PO ×2 (05:20→16:41)
[2021-11-06] MEDS: Doxazosin 1 MG Tablet PO (05:20)
[2021-11-06] MEDS: Acetaminophen 500 MG Tablet PO (05:20)
[2021-11-06] MEDS: Magnesium Chloride 64 MG Delay Rel.Tablet 128 MG PO (05:20)
[2021-11-06] MEDS: Menthol/Lanolin/Calamine/Znox 113 GM Tube 1 APPLIC TOPICAL ×3 (05:21→19:29)
[2021-11-06] MEDS: Nystatin Powder 15gm Bottle 1 APPLIC TOPICAL ×2 (05:21→16:44)
[2021-11-06 07:10] VITALS: O2SAT 92
[2021-11-06] MEDS: Juven (unflavored) Packet 1 PACKET PO ×2 (07:30→16:40)
--- NOTE | 2021-11-06 11:06 | WOUNDNOTE ---
present in room. observed this nurse changing the abdominal dressing and packing. took notes and states she plans to be changing the dressing as well as her sister in law who is an RN. states she is coming up from [place] to help. Pt has been tolerating the dressing changes well. script for wound care supplies written out for Dr Flores to sign. pt and deny questions.
--- NOTE | 2021-11-06 11:45 | WOUNDNOTE ---
In to talk with patient and . agreeable to change the dressing tomorrow with this nurse observing to be sure she will be able to do it at home. patient agrees with plan as well. all supplies in room will be sent with patient and there is a script for dressing supplies. discussed with RAVEN Strickland who will set up a discharge date and arrange for home health care.
--- NOTE | 2021-11-06 12:02 | CASEMGMT ---
Social Work Spoke with wound nurse and Dr. Taveras about pt's wound healing, dressing changes, teaching and DC date. All agreeable can assist pt at home and is cleared to DC from their standpoint. Spoke with therapy - they agree as well. Spoke with pt and about request to DC soon. All agreeable to DC 11/09 home. Provided skilled C list with quality data. Pt prefers [facility]. Referred to [facility] PT/OT/SN. Pt requesting [facility]. Referred to [facility] [place], [place]. to transport. Plan: DC home with 11/09, 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
--- NOTE | 2021-11-06 12:06 | PN.SURG_ITS ---
Subjective Subjective Patient was seen and examined during AM rounds. He is sitting up in a chair out of bed. He confirms that wound nursing just completed teaching with his on packing his wound. He can also confirms that he is getting up and about easier today. He still has some pain that is limiting his normal movement, but this is improved. Objective Data Objective Data Vital Signs: Vital Signs Temp Pulse Resp BP Pulse Ox 97.6 F L 101 H 16 146/89 H 92 11/05/21 16:00 11/06/21 05:17 11/05/21 21:01 11/06/21 05:17 11/06/21 07:10 Oxygen Flow Rate (L/min) 2 Oxygen Delivery Method Room Air Weight: 229 lb 11.2 oz Body Mass Index (BMI) 28.8 Intake & Output: Intake and Output for Last 24 Hours 11/04/21 11/05/21 11/06/21 23:59 23:59 23:59 Intake Total 840 / 840 1340 / 1340 650 / 650 Output Total 175 / 175 350 / 350 Balance 665 / 665 990 / 990 650 / 650 Lab / Micro Data Result Diagrams: 10/31/21 05:11 11/04/21 05:18 Micro: Microbiology 11/02/21 15:15 Stool C. difficile DNA Amplification - Final 10/31/21 06:31 Nasal Secretion SARS-CoV-2 Antigen (Rapid) - Final 10/26/21 12:00 Urine Catheter - Catheter Urine Culture - Final Culture exhibits no growth. 10/26/21 13:00 Nasal Secretion SARS-CoV-2 Antigen (Rapid) - Final Physical Exam Const oriented x3 and no apparent distress Resp normal respiratory effort GI GI Narrative: Nondistended, soft, wound covered with abdominal pad, but when this is lifted off his laparotomy wound is appropriate with minimal periincisional erythema. Recently placed nylon sutures remain intact Assessment & Plan Assessment/Plan (1) S/P laparoscopic appendectomy: PLAN: Patient required return to the OR on 09/24/2021 after pathology reported they did not identify appendix in the patient's surgical specimen from 09/21/2021. Therefore, patient required return to the OR for hand-assisted laparoscopic appendectomy with drain placement. Unfortunately, patient developed evidence of a controlled perforation from the terminal ileum?per drain study 10/01/2021. He was thus n.p.o. and initiated TPN. He was then taken for open ileocecectomy on 10/02/2021 (2) Appendicitis with perforation: PLAN: Status post above operative course (3) Perforation of small intestine: PLAN: Patient underwent open ileocecectomy on 10/02/2021. Patient was held NPO after character of wound drainage became more malodorous and cloudy. Bedside wound exploration performed but not well tolerated. Did find evidence of necrotic fascia and patient was posted for operative exploration. Underwent re- exploratory laparotomy on 10/09/2021 with abdominal washout, drain placement, fascial debridement, and abdominal wall closure with placement of retention sutures. (4) Intra-abdominal abscess: PLAN: s/p ab washout with additional drain placement 10/09/21 (5) Postoperative wound infection: PLAN: s/p fascial debridement and ab wall closure 10/09/21 (skin left open) Patient with improved mobility as a soreness from his recent fall is decreasing. Patient remains afebrile. Tolerating regular diet some diarrhea but with decreased frequency. Wound with only scant serosanguineous drainage per wound nursing now 2 days status post closure by secondary intention. Wound care instructions and technique were reviewed at bedside with patient's . I also held a discussion with [facility] forensic social worker and we will plan to make arrangements for patient's discharge later this week?to include wound care supplies, DME, and home health arrangements. Wound cultures now show staph epidermidis, staph hemolyticus, E. coli, and presumptive C albicans. Treatment initiated with Diflucan 200 mg daily x7 days and 7 to 10-day course of linezolid and Augmentin. Tomorrow, 11/07/2021 padilla patient's 10th day of linezolid and given the wound appearance, I would consider therapy to be complete. Charges/Coding Visit Charges Inpatient E&M: 19059 Subs Hosp L2
[2021-11-06 15:40] VITALS: BP 134/76; PULSE 94; RESP 18; TEMP 35.8; O2SAT 91
[2021-11-06] MEDS: Rivaroxaban 10 MG Tablet PO (16:43)
--- NOTE | 2021-11-06 20:31 | DS.PCM_ITS ---
Providers Date of Admission: 10/23/21 Primary Care Physician: Dr. Linda Dominguez MD Consultations 10/23/21 16:37 Consult: Onc/Wound/order expediter Routine Comment: Reason for Consult:: surgical incision with retention sutures 10/23/21 17:58 Consult: General Surgery Routine Consulting Provider: Nathan Taveras Reason for Consult: Complicated appendicitis. EMERGENT Consult: No Notified: Yes Date Notified: 10/24/21 Time Notified: 11:46 Method of Notification: Verbal 10/28/21 12:39 Consult: Infectious Disease Routine Consulting Provider: Júnior Lopez Reason for Consult: Postoperative wound infection EMERGENT Consult: No Notified: Yes Date Notified: 10/28/21 Time Notified: 12:39 Method of Notification: Verbal Reason For Visit: ACUTE APPENDICITIS Diagnosis Discharge Diagnosis (1) S/P laparoscopic appendectomy: Code(s): Z90.49 - Acquired absence of other specified parts of digestive tract (2) Appendicitis with perforation: Code(s): K35.32 - Acute appendicitis with perforation and localized peritonitis, without abscess (3) Perforation of small intestine: Code(s): K63.1 - Perforation of intestine (nontraumatic) (4) Intra-abdominal abscess: Status: Acute Code(s): K65.1 - Peritoneal abscess (5) Postoperative wound infection: Status: Acute Code(s): T81.49XA - Infection following a procedure, other surgical site, initial encounter Medications at Discharge Home Medications prazosin 1 mg PO DAILY 09/25/21 acetaminophen 500 mg PO Q4H PRN PRN #0 tab 11/06/21 [id number] [Aly (with collagen)] 1 packet PO BIDCM 30 Days #60 ea 11/06/21 Hospital Course Operations - (Multiple abdominal surgeries.) Procedures None Summary of Care Provided Minutes Spent on Discharge: 35 Hospital Course: 61 year old male with below past medical history hospitalized with perforated appendicitis, status post multiple abdominal surgeries, complicated by intra-adominal abscess, admitted to TCU with debility, here for rehabilitation, strengthening, prior to discharge home with . Discharge home with 11/09/2021, [facility] PT/OT/SN, Front wheeled walker. Physical Exam Const alert General Appearance: cooperative HEENT normocephalic Eyes PERRL and EOMs intact bilaterally Neck supple, no JVD and no carotid bruits Resp normal respiratory effort, normal air movement and clear to auscultation bilaterally Cardio regular rate and regular rhythm GI normal to inspection, nondistended, normoactive bowel sounds, non-tender and non-distended Extremity normal capillary refill General Extremity: Negative for edema Skin no rashes or lesions noted General Skin Exam: no breakdown Psych affect normal Appearance: appropriate Weight / BMI Weight Weight: 104.19 kg Body Mass Index (BMI) 28.8 ABG / Lab / Microbiology Data Result Diagrams: 10/31/21 05:11 11/04/21 05:18 Microbiology: Microbiology 11/02/21 15:15 Stool C. difficile DNA Amplification - Final 10/31/21 06:31 Nasal Secretion SARS-CoV-2 Antigen (Rapid) - Final 10/26/21 12:00 Urine Catheter - Catheter Urine Culture - Final Culture exhibits no growth. 10/26/21 13:00 Nasal Secretion SARS-CoV-2 Antigen (Rapid) - Final D/C Instructions Discharge Diet: No restrictions Discharge Activity: Return to Normal Activity, May Shower and Use Walker May resume sexual activity in: 6-8 weeks Weight Bearing Status: Weight bearing as tolerated Call your doctor if you observe: Fever of 101 or Higher, Inability to urinate, Inability to have a bowel movement, Shortness of breath, Dizziness, Fainting spells, Swelling in the ankles, Chest pain and Uncontrolled pain Additional Instructions: Discharge home with 11/09/2021, [facility] PT/OT/SN, Front wheeled walker. Meaningful Use Info Meaningful Use Diagnoses (Choose all that apply): None applicable Discharge Plan Admission Admit Date/Time: 10/23/21 16:25 Primary Reason for Your Visit: Debility. Attending Provider: Jonel Flores Chi Primary Care Provider: Linda Dominguez Consulting Providers: Nathan Taveras ; Júnior Lopez Instructions Additional Instructions / Restrictions: Discharge home with 11/09/2021, [facility] PT/OT/SN, Front wheeled walker. Discharge Orders/Prescriptions Prescriptions: New acetaminophen 500 mg Tablet 500 mg PO Q4H PRN PRN (Reason: Pain Score 1-10) Qty: 0 RF: 0 Aly (with collagen) 7-7-1.5 gram Powder In Packet 1 packet PO BIDCM 30 Days Qty: 60 RF: 0 Continued prazosin 1 mg Capsule 1 mg PO DAILY RF: 0 Discontinued cyclobenzaprine 10 mg tablet 10 mg PO BID PRN (Reason: Pain) RF: 0 albuterol sulfate 2.5 mg /3 mL (0.083 %) Solution For Nebulization 2.5 mg inhalation Q2H PRN PRN (Reason: Wheezing Or Cough) Qty: 0 RF: 0 ibuprofen 400 mg Tablet 400 mg PO Q6H PRN PRN (Reason: Pain Score 1-5) Qty: 0 RF: 0 oxycodone 5 mg Tablet 5 mg PO Q6H PRN PRN (Reason: Pain Score 6-10) Qty: 0 RF: 0 sodium chloride 0.9 % (flush) [BD PosiFlush Normal Saline 0.9] Syringe 10 - 40 ml IV UD PRN (Reason: Saline Flush) Qty: 0 RF: 0 nystatin [Nyamyc] 100,000 unit/gram powder 1 applic topical BID RF: 0 potassium, sodium phosphates 280-160-250 mg powder in packet 1 packet PO DAILY RF: 0 Mag 64 64 mg tablet,delayed release (DR/EC) 128 mg PO DAILY RF: 0 menthol-zinc oxide [Calmoseptine] 0.44-20.6 % ointment 1 applic topical TID RF: 0 Ensure Enlive 0.08 gram-1.5 kcal/mL liquid 120 ml PO 4X/DAY RF: 0 Referrals / Follow Up: Linda Dominguez MD [Primary Care Provider] - Disposition Disposition (needs filled in before D/C Order can be placed): Home Health Service
[2021-11-07] MEDS: Linezolid 600 MG Tablet PO ×2 (04:47→16:35)
[2021-11-07] MEDS: Magnesium Chloride 64 MG Delay Rel.Tablet 128 MG PO (04:47)
[2021-11-07] MEDS: Doxazosin 1 MG Tablet PO (04:48)
[2021-11-07] MEDS: Menthol/Lanolin/Calamine/Znox 113 GM Tube 1 APPLIC TOPICAL ×3 (04:48→20:58)
[2021-11-07] MEDS: Nystatin Powder 15gm Bottle 1 APPLIC TOPICAL ×2 (04:48→16:37)
[2021-11-07 05:33] LABS: Absolute Neutrophil Count 6.9 X10^3/uL (2.0-7.7); Basophil# 0.08 X10^3/uL; Basophil% 0.9 % (0-1); Eosinophil# 0.12 X10^3/uL; Eosinophils% 1.3 % (0-5); Hematocrit 31.1 % (40-54); Hemoglobin 10.2 g/dL (13.0-16.5); Lymphocyte % 14.9 % (19-41); Mean Corp Hgb Conc 32.8 g/dL (32-36); Mean Corpuscular Hgb 29.2 pg (27.0-32.0); Mean Corpuscular Volume 89.1 fL (80-94); Mean Platelet Vol. 8.5 fl (6.2-12.0); Monocyte# 0.84 X10^3/uL; Monocyte% 8.9 % (0-10); NRBC Flagged by Analyzer 0 % (0-5); Neutrophil # 6.93 X10^3/uL (2.7-7.7); Neutrophil % 73.6 % (47-70); Platelet Count 434 K/mm3 (150-450); RBC Distribution Width CV 15.5 % (11.6-14.6); RBC Distribution Width SD 49.7 fl (35.1-43.9); Red Blood Count 3.49 M/mm3 (4.6-6.2); White Blood Count 9.4 K/mm3 (4.4-11.0)
[2021-11-07 06:58] VITALS: O2SAT 95
[2021-11-07] MEDS: Juven (unflavored) Packet 1 PACKET PO ×2 (08:08→16:35)
--- NOTE | 2021-11-07 11:05 | WOUNDNOTE ---
This nurse observed change abdominal dressing and packing. The was able to change the packing without difficulty. appeared slightly nervous, but did well. aware that the dressing is to be done daily and that home health will be seeing patient as well. patient and very appreciative of care.
[2021-11-07 13:46] VITALS: BP 126/69; PULSE 100; RESP 14; TEMP 36.3; O2SAT 94
--- NOTE | 2021-11-07 15:54 | MDS.RN ---
Pain interview for DIANE 11/09/21 completed.
[2021-11-07] MEDS: Rivaroxaban 10 MG Tablet PO (16:35)
[2021-11-07 22:00] VITALS: PULSE 100; O2SAT 93
[2021-11-08] MEDS: Doxazosin 1 MG Tablet PO (05:07)
[2021-11-08] MEDS: Magnesium Chloride 64 MG Delay Rel.Tablet 128 MG PO (05:07)
[2021-11-08] MEDS: Menthol/Lanolin/Calamine/Znox 113 GM Tube 1 APPLIC TOPICAL ×3 (05:08→20:23)
[2021-11-08] MEDS: Nystatin Powder 15gm Bottle 1 APPLIC TOPICAL ×2 (05:08→17:15)
[2021-11-08 07:15] VITALS: O2SAT 95
[2021-11-08] MEDS: Juven (unflavored) Packet 1 PACKET PO ×2 (08:22→17:15)
[2021-11-08] MEDS: Acetaminophen 500 MG Tablet PO ×2 (08:27→20:23)
--- NOTE | 2021-11-08 12:48 | CASEMGMT ---
Social Work BIMS and PHQ-9 completed for MDS assessment. 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
--- NOTE | 2021-11-08 13:17 | NURSING ---
THIS NURSE PUT A CALL INTO OFFICE THIS MORNING TO SEE WHO WAS COMING IN TO CHANGE PT DRESSING TO AB. IN ORDERS ITS STATED THAT ONLY AND MADIE,RN/WOUND NURSE TO CHANGE. MADIERN IS OFF TODAY. OFFICE STATED THEY WOULD GET A HOLD OF BUT HE WAS ON VACATION. OFFICE DID CALL BACK AND STATED THAT DR. SALMON STATED THAT NURSING STAFF COULD CHANGE IT,THIS NURSE STATED TO OFFICE THAT WE NEED AN ORDER FROM DR. SALMON THAT NURSING STAFF COULD CHANGE DRESSING AND WHAT HE WOULD WANT US TO USE. OFFICE STATED THEY WOULD LET KNOW. AT THIS TIME TCU STILL HAS NOT HEARD BACK. RN AWARE
[2021-11-08 13:30] VITALS: PULSE 99; RESP 18; O2SAT 94
--- NOTE | 2021-11-08 13:33 | NURSING ---
Contacted Dr. Parsons's office, who is covering for Dr. Taveras. Spoke with Halima who is going to contact Dr. Parsons ,who is currently in surgery, and notify Dr. Parsons of daily dressing change needing completed.
[2021-11-08 14:44] VITALS: BP 123/61; PULSE 97; RESP 18; TEMP 36.3; O2SAT 96
--- NOTE | 2021-11-08 15:42 | NURSING ---
Received call from Dr Parsons, she stated she will come in today and tomorrow to change the patients surgical dressing.
--- NOTE | 2021-11-08 16:18 | NURSING ---
Dr Parsons to floor to complete dressing change.
--- NOTE | 2021-11-08 16:30 | PCM.PN.BLA ---
Progress Note Asked by nurses to change dressing on Mr. Martin This was done, patient tolerated this well. He states that he will be going home tomorrow and that his will change the wound dressing.
[2021-11-09] MEDS: Magnesium Chloride 64 MG Delay Rel.Tablet 128 MG PO (05:00)
[2021-11-09] MEDS: Doxazosin 1 MG Tablet PO (05:01)
[2021-11-09] MEDS: Nystatin Powder 15gm Bottle 1 APPLIC TOPICAL (05:01)
[2021-11-09] MEDS: Menthol/Lanolin/Calamine/Znox 113 GM Tube 1 APPLIC TOPICAL (05:01)
[2021-11-09] MEDS: Acetaminophen 500 MG Tablet PO (05:03)
[2021-11-09 06:58] VITALS: O2SAT 95
[2021-11-09] MEDS: Juven (unflavored) Packet 1 PACKET PO (07:41)
[2021-11-09 09:06] VITALS: BP 132/76; PULSE 99; RESP 18; TEMP 36.7; O2SAT 94
[2021-11-09 09:28] VITALS: PULSE 99; RESP 18; O2SAT 94
== END 2021-11-09 09:58 | disposition home health service (06) | DRG 939 ==
PROVIDERS: Admitting Provider Family Medicine Geriatric Medicine; PCP Internal Medicine; Visit Provider Family Medicine Geriatric Medicine
DX: T81.49XD Infection following a procedure, other surgical site, subsequent encounter (principal); K35.33 Acute appendicitis with perforation, localized peritonitis, and gangrene, with abscess; G20 Parkinson's disease; G25.0 Essential tremor; B35.4 Tinea corporis; B37.9 Candidiasis, unspecified; I10 Essential (primary) hypertension; M19.90 Unspecified osteoarthritis, unspecified site; N40.0 Benign prostatic hyperplasia without lower urinary tract symptoms; G89.29 Other chronic pain; M54.50 Low back pain, unspecified; Z87.891 Personal history of nicotine dependence; Z79.899 Other long term (current) drug therapy; Z86.14 Personal history of Methicillin resistant Staphylococcus aureus infection; Z91.81 History of falling
CPT/HCPCS: 36415; 71046; 72110; 74018; 80048; 80053; 81001; 85025; 87086; 87426; 87493; 94640; 94762; 97110; 97116; 97162; 97166; 97530; 97535; 97802; J2997; J7030; A4216

== ENCOUNTER 2021-11-13 06:26 | Emergency (ER) | payer MEDICARE, SELFPAY ==
[2021-11-13 06:27] VITALS: BP 165/89; PULSE 107; RESP 18; TEMP 36.8; O2SAT 94; BMI 28.8
--- NOTE | 2021-11-13 06:44 | ED.VIS.BACK ---
HPI History of Present Illness Chief Complaint: Back Informant: patient Onset/Context/Timing Onset: Month(s) Context: Sudden Onset Injury: fall Timing: Continuous Quality: Sharp Location: Lumbar Worsened by: improves with Movement Relieved by: Remaining Still (In certain positions) Associated Symptoms Associated Symptoms: Abdominal Pain; Negative for Numbness, Tingling, Radiation to Right Leg, Radiation to Left Leg, Fever, Dysuria, Urinary Retention, Urinary Incontinence, Constipation and Fecal Incontinence Narrative Narrative: Patient presents with back pain that began after a fall approximately 1 month ago. Patient states he was being helped to the toilet when he slipped and fell and landed on his sacrum on the toilet seat. Patient states his pain is been constant. Patient states the pain is over the lower lumbar area. Patient states his pain is worse with movement. Patient states it is better in certain positions. Patient denies any radiation of the pain. Patient denies any paresthesias or weakness. Patient denies any bowel or bladder changes. Patient denies any saddle anesthesia. 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 [facility] Medical History Anemia Appendicitis with perforation Arthritis Back pain due to injury Chronic pain Difficulty balancing Hypertension Limb weakness MRSA (methicillin resistant staph aureus) culture positive neck/back pain Pancreatitis Perforation of small intestine Shoulder pain Home Medications prazosin 1 mg PO DAILY 09/25/21 [History Last Taken Unknown] acetaminophen 500 mg PO Q4H PRN PRN #0 tab 11/06/21 [Rx Last Taken Unknown] [id number] [Aly (with collagen)] 1 packet PO BIDCM 30 Days #60 ea 11/06/21 [Rx Last Taken Unknown] Allergy/AdvReac Type Severity Reaction Status Date / Time acetaminophen AdvReac Nausea/Vom/ Verified 09/20/21 22:47 Diarrhea fentanyl [From Duragesic] AdvReac Nausea/Vom/ Verified 09/20/21 22:47 Diarrhea metoclopramide HCl AdvReac anxiety Verified 09/20/21 22:47 [From Reglan] nabumetone [From Relafen] AdvReac Nausea/Vom/ Verified 09/20/21 22:47 Diarrhea Family History Father Cancer Mother Parkinson disease Surgical History History of hernia repair History of laparoscopic appendectomy Previous back surgery S/P laparoscopic appendectomy Social History household members: spouse Smoking Status: Former smoker alcohol intake: never substance use type: does not use ROS ROS ED Constitutional Constitutional ED: Denies chills or fever(s) Eyes Eyes: Denies blurry vision or change in vision ENT ENT ED: Denies rhinorrhea or sore throat Cardiovascular Cardiovascular: Denies chest pain or palpitations Respiratory/Chest Respiratory/Chest: Denies cough or dyspnea Gastrointestinal Gastrointestinal: Reports abdominal pain; Denies nausea or vomiting Genitourinary Genitourinary ED: Denies dysuria or hematuria Musculoskeletal Musculoskeletal: Reports back pain; Denies neck pain Integumentary Denies abscess or rash Neurologic Neurologic: Denies headache(s) or weakness Allergic/Immunologic Allergic/Immunologic ED: Denies mouth swelling or urticaria EXAM Physical Exam Const Vital Signs: 11/13/21 06:27 Temperature 98.2 F Temperature Source Oral Pulse Rate 107 H Respiratory Rate 18 Blood Pressure 165/89 H Blood Pressure Mean 114 Pulse Ox 94 Oxygen Delivery Method Room Air Positive well nourished and well developed General Appearance ED: well developed and NAD HEENT Reports moist mucous membranes Neck supple and no JVD Back/Spine Back/Spine Narrative: There is tenderness over the lumbar spine and paraspinal muscles. There is no bony crepitance or step-off. Range of motion was limited in all motions of the lumbar spine secondary to pain. Lumbar Spine / Lower Back: ROM limited Neuro oriented x3 and no sensory deficits noted Neuro Narrative: There is weakness in plantar flexion and dorsiflexion of the right foot. Patient states this is chronic. Strength is otherwise 5/5 bilaterally in the lower extremities. There are no sensory deficits noted. Sensorium / Orientation: alert Deep Tendon Reflexes: Rt Patellar (L4): 1+, Lt Patellar (L4): 1+, Rt Ankle (S1): 1+ and Lt Ankle (S1): 1+ Deep Tendon Reflexes Back: Rt Patellar (L4): 1+, Lt Patellar (L4): 1+, Rt Ankle (S1): 1+ and Lt Ankle (S1): 1+ Psych mental status grossly normal MDM MDM MDM Narrative Medical decision making narrative: Patient was given injection of morphine and Zofran here. X-rays of the lumbar spine were obtained. These are pending. Care of the patient was turned over to the oncoming physician pending x-ray results. Discharge Plan Triage Chief Complaint: Back ED Provider: Jean Claude Robles Dx/Rx/DC Orders Clinical Impression: Chronic lower back pain, Postoperative wound infection Instructions: ED Back Pain (Acute or Chronic) Prescriptions: No Action prazosin 1 mg Capsule 1 mg PO DAILY RF: 0 acetaminophen 500 mg Tablet 500 mg PO Q4H PRN PRN (Reason: Pain Score 1-10) Qty: 0 RF: 0 Aly (with collagen) 7-7-1.5 gram Powder In Packet 1 packet PO BIDCM 30 Days Qty: 60 RF: 0 Primary Care Provider: Linda Dominguez Referrals: Linda Dominguez MD [Primary Care Provider] - 3-5 Days Nathan Taveras MD [STAFF PHYSICIAN] - 3-5 Days
--- NOTE | 2021-11-13 06:51 | RAD_ITS ---
STUDY: X-RAY - LUMBAR SPINE REASON FOR EXAM: Male, 61 years old. Injury/Pain TECHNIQUE: 3 view(s) of the lumbar spine were obtained. COMPARISON: Lumbar spine x-ray dated NOVEMBER 04, 2021. FINDINGS: Limited visualization due to demineralization of the osseous structures and underpenetration of the x-ray film. Reversal of the cervical lordosis unchanged from the prior study. Stable posterior spinal fusion rods and pedicle screws from L2 down to S1. Stable mild chronic compression deformities of L1 and L2. No visualized acute fracture. Reidentification of multiple surgical clips. The soft tissue structures are unremarkable. RAD/Lumbar Spine 2 or 3 Views IMPRESSION: No visualized acute process or significant interval change Electronically Signed: Kevin Lim MD at 9:15 EDT ,
[2021-11-13] MEDS: Ondansetron ODT 4 MG Tablet PO (06:58)
[2021-11-13] MEDS: Morphine 4 MG/ML Syringe IM (06:58)
[2021-11-13] MEDS: oxyCODONE 5 MG Tablet PO (10:09)
[2021-11-13] MEDS: diazePAM 5 MG Tablet PO (10:09)
[2021-11-13 10:17] VITALS: BP 138/91; PULSE 101; RESP 18; O2SAT 96
== END 2021-11-13 10:18 | disposition home or self-care (01) ==
PROVIDERS: Emergency Provider Emergency Medicine; PCP Internal Medicine; Visit Provider Emergency Medicine
DX: M54.50 Low back pain, unspecified (principal); W19.XXXA Unspecified fall, initial encounter; Y93.9 Activity, unspecified; Y92.9 Unspecified place or not applicable; M19.90 Unspecified osteoarthritis, unspecified site; Z86.14 Personal history of Methicillin resistant Staphylococcus aureus infection; Z87.19 Personal history of other diseases of the digestive system; I10 Essential (primary) hypertension; G89.29 Other chronic pain; Z79.899 Other long term (current) drug therapy; Z87.891 Personal history of nicotine dependence; T81.40XA Infection following a procedure, unspecified, initial encounter
CPT/HCPCS: 72100; 96372; 99285

== ENCOUNTER → 2022-01-31 | Outpatient (CLI) | payer MEDICARE, MEDICAID, SELFPAY ==
--- NOTE | 2022-01-31 16:50 | MRI_ITS ---
EXAM: MR HEAD WITHOUT INTRAVENOUS CONTRAST CLINICAL INDICATION: atypical tremor, concern for parkinson''s TECHNIQUE: Multiplanar and multisequence MR images of the brain were obtained without intravenous contrast. This report was created using Soko report generation technology. COMPARISON: CT Dec 13 2013 8:57am FINDINGS: BRAIN AND EXTRA-AXIAL SPACES: Chronic involutional changes of the brain. No intra- or extra-axial hemorrhage. No evidence of acute infarct. No intracranial mass or mass effect. There is preservation of the edward/white matter interface. Posterior fossa structures are unremarkable. Ventricles are appropriate for age. No hydrocephalus. Basal cisterns are patent. SELLA: Unremarkable. Normal sella turcica, pituitary gland, infundibular stalk, optic chiasm and hypothalamus. AUDITORY SYSTEM: Unremarkable. The internal auditory canals are patent. BONES/JOINTS: Unremarkable. No discrete lytic or blastic abnormalities. SINUSES: There is sinus disease. MASTOID AIR CELLS: Unremarkable as visualized. Clear. ORBITS: Unremarkable as visualized. Both globes, extraocular muscles, optic nerves and retrobulbar fat appear unremarkable. VASCULATURE: Unremarkable as visualized. Normal flow voids in the major intracranial circulation. MRI/Brain without Contrast IMPRESSION: Chronic involutional changes of the brain. Electronically Signed: Tam Riddle MD at 19:01 EDT ,
== END | disposition home or self-care (01) ==
LOC: MRI 16:50
PROVIDERS: PCP Internal Medicine; Referring Provider Internal Medicine; Visit Provider Internal Medicine
DX: R25.1 Tremor, unspecified (principal)
CPT/HCPCS: 70551

== ENCOUNTER 2022-08-14 07:58 | Day surgery (SDC) | payer MEDICARE, SELFPAY ==
--- NOTE | 2022-08-14 | COLBX_PTH ---
PATIENT: OLGA SANTOYO LOC: EN U#:[id number] AGE/SX: 61/M ROOM: RE08/14/[address]: Dr. Nathan Taveras MD : 1960 BED: DIS: 08/14/2022 SPEC #: [id number] RECD: 08/14/22 13:22 STATUS: MEHDI FOZIA #: [id number] LOR: 08/14/22 00:[address]: Nathan Taveras DEPT: SURGICAL PATHOLOGY RECD BY: Carmen Coker ENTERED: 08/14/22 13:39 SP TYPE: COLON BX OTHR DR: Dr. Aleshia Marino MD Tissues: A - Transverse colon B - Sigmoid colon biopsy Procedures: Surgery Specimen Level IV HEADER OPERATION: Colonoscopy (MAC) and polypectomy PRE-OP DIAGNOSIS: Screening TISSUE SUBMITTED: A ? Transverse polyp, B ? Sigmoid colon polyp MICROSCOPIC DIAGNOSIS A. Transverse colon polyp, polypectomy: Fragments of tubular adenoma. B. Sigmoid colon polyp, polypectomy: Fragments of tubular adenoma. SJ:chloe 08/15/2022 MICROSCOPIC DESCRIPTION Slides are reviewed. GROSS DESCRIPTION A - Received in fixative is one container labeled with the patient's name and designated transverse polyp. The specimen consists of multiple irregular fragments of light joshua soft tissue that in aggregate measure 1.5 x 0.5 x 0.1 cm. The specimen is totally submitted in one cassette. B - Received in fixative is one container labeled with the patient's name and designated sigmoid colon polyp. The specimen consists of two irregular fragments of light joshua soft tissue that in aggregate measure 1 x 0.5 x 0.3 cm. The specimen is totally submitted in one cassette. / AM:chloe 08/14/2022 TC:1 CPT: 43445 x2
[2022-08-14] MEDS: Lactated Ringers 1,000 ML 15 ML IV (08:29)
[2022-08-14 08:30] VITALS: BP 159/89; PULSE 110; RESP 18; TEMP 36.6; O2SAT 97; BMI 27.0
--- NOTE | 2022-08-14 09:38 | HP.PCM_ITS ---
History and Physical Date of Admission: 08/14/22 Date of Service:? 06/09/22 MR#: [id number] Acct: [id number] Name:OLGA ERNANDEZ Rep #: [id number] : 1960 ? ? Provider: Dr. Nathan Taveras MD Age/Sex:? 61/M ? ? Location: [facility] Status: Signed Intake Vital Signs ? 06/09/2209:25 BP 148/85 H Blood Pressure Location Lt brachial Position Sitting Respiration 18 Pulse 70 Pulse Source Monitor Temp 97.4 F L Temp Source Temporal Pulse Oximetry (%) 98 Oxygen Delivery Method room air Intake Visit Reasons:?RECALL LETTER/ TALK ABOUT CSCOPE Chief Complaint: Remove Suture/ Cscope Consult Optical Effects Camera Operator Required: No Is patient in pain?: No Allergies hydroxyzine [From Vistaril] Allergy (Severe, Verified 06/09/22 09:33) Vomitingniacin Allergy (Severe, Verified 06/09/22 09:33) Vomitingacetaminophen Adverse Reaction (Verified 06/09/22 09:33) Nausea/Vom/Diarrheafentanyl [From Duragesic] Adverse Reaction (Verified 06/09/22 09:33) Nausea/Vom/Diarrheametoclopramide HCl [From Reglan] Adverse Reaction (Verified 06/09/22 09:33) anxietynabumetone [From Relafen] Adverse Reaction (Verified 06/09/22 09:33) Nausea/Vom/Diarrhea Medications acetaminophen 500 mg tablet 500 mg PO Q4H PRN PRN Pain Score 1-10 #0 tabs 11/06/21 [Rx Confirmed 06/09/22] promethazine 25 mg tablet 25 mg PO TID PRN 01/23/22 [History Confirmed 06/09/22] magnesium citrate 100 mg capsule 100 mg PO DAILY 03/27/22 [History Confirmed 06/09/22] cyclobenzaprine 10 mg tablet 10 mg PO TID PRN muscle spasm #90 tabs 04/28/22 [Rx Confirmed 06/09/22] propranolol 60 mg tablet 60 mg PO DAILY #90 tabs 04/28/22 [Rx Confirmed 06/09/22] PFSH Medical History? Acute pancreatitis Adrenal disorder Anemia Appendicitis with perforation Arthritis Back pain due to injury Chronic pain Cluster headaches Difficulty balancing Cristela Monahan virus positive mononucleosis syndrome GERD (gastroesophageal reflux disease) High calcium levels Hypertension Limb weakness MRSA (methicillin resistant staph aureus) culture positive neck/back pain Neuropathy Pancreatitis Perforation of small intestine PTSD (post-traumatic stress disorder) Shoulder pain Surgical History? History of hernia repair History of laparoscopic appendectomy History of neck surgery Previous back surgery S/P laparoscopic appendectomy Family History? Father Cancer ? mesothelioma HypertensionMother Parkinson disease Anxiety Asthma Arthritis OsteoporosisOther Psychiatric care Social History? household members:? spouse current occupational status:? disabled current occupation:? 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 Former smoker quit date: 08/03/90 pack-years: 5 Electronic Cigarette Use:? not used alcohol intake:? former substance use type:? does not use do you feel safe at home:? Yes HPI HPI HPI: ?Patient is a 61-year-old male who presents for need to schedule screening colonoscopy secondary to age/never having had prior screening.? He is referred from Dr. Marino, but is well-known to me from a lengthy hospitalization in September and October 2021.? On October 03, 2021 he underwent open ileocecectomy with primary anastomosis during a series of operations for perforated appendicitis.? His last visit with me was 02/14/2022. Is not interval update Mr. Martin reports that he is not shaking as much since receiving medical marijuana designation.? He also reports that he is due for a neurology evaluation 07/21/2022.? Lastly, he comments that he is having a suture from his abdominal closure spitting. Regarding patient's: Health he comments the following: Patient has not had prior colonoscopy.? He reports that he had a Cologuard test many years ago.? Patient has no personal history of inflammatory bowel disease or diverticulitis. They describe their bowel habits as normal.? They have approximately 1 bowel movement per day without significant straining.? They have not noticed recent bleeding or dark stools.? They do not regularly take fiber supplements but get plenty of dietary fiber. Patient has no family history of colon cancer, inflammatory bowel disease, or diverticulitis.? ? The patient's weight is stable. The patient is not prescribed anticoagulants/blood thinners. Relevant prior abdominal surgical history includes: Procedures related to complicated appendicitis as partially discussed above Patient does not have a significant history of GERD since stopping his heavy drinking years ago ROS General General: No weight change, appetite, fatigue, colon cancer, breast cancer or weakness HEENT HEENT: No difficulty swallowing, eye injury, eye surgery, swollen glands or hoarseness Endo Endocrine: No thyroid disease, diabetes mellitus, thyroid cancer, Hair loss, heat intolerance or cold intolerance Skin Skin: No rash or changing moles Musc Musculoskeletal: Yes back problems; No arthritis, rheumatoid arthritis, gout or joint pain Cardio Cardiovascular: Yes high blood pressure; No murmur, pacemaker, heart disease, atrial fibrillation, heart attack, heart st ent, palpitations, shortness of breat with exertion or chest pain Psych Psychiatric: No depression, anxiety or hearing voices Resp Respiratory: No shortness of breath, No sleep apnea, No cough, No COPD, No asthma, No emphysema and No wheezing Gastro Gastrointestinal: No abdominal pain, No nausea or vomiting, No diarrhea, No constipation, No blood in stool, No acid reflux, No hemorrhoids, No ulcers, No gallbladder problem and No black,tarry stools Amado Hematologic: No blood thinners, No blood disorders, No bleeding, No anemia and No blood clots Neuro Neurologic: No system reviewed and no additional complaints, except as documented, No as per HPI, No abnormal gait, No abnormal hearing, No abnormal movements, No abnormal speech, No behavioral changes, No burning sensations, No confusion, No convulsions, No disequilibrium, No dizziness, No localized weakness, No frequent falls, No headache(s), No lack of coordination, No loss of vision, No memory loss, No numbness, No other visual disturbances, No radicular pain, No restless legs, No sensory deficit, No syncope, Yes tingling (hands), No tremor(s), No weakness and No other Exam Const General: cooperative, healthy appearing, comfortable and no acute distress GI Other: There is a Prolene suture at the superiormost aspect of patient's wound that is spitting from the skin including the knot portion itself.? The remaining skin is nonerythematous and there is no drainage about the site.? Patient does now have a large midline ventral hernia where his prior complex abdominal wall closure was undertaken.? He has no tenderness with palpation. Neuro Other: Upper extremity tremors present and uncoordinated gait exhibited Assessment and Plan Assessment and Plan (1) Protruding suture present on examination: ?Status:?Chronic ?Comment: Patient with spitting fascial suture following complex laparotomy closure October 2021.? Suture knot was exposed and no longer serving a functional purpose.? There is noninfected appearance to this area.? In order to facilitate improved patient comfort, the suture was sharply removed at bedside today without complication. ?Plan: Status post suture removal in clinic today (2) GERD (gastroesophageal reflux disease): ?Status:?Acute ?Comment: Patient denies any heartburn or reflux symptomology after cessation of alcohol use.? I do not find any indication therefore to proceed with diagnostic EGD. (3) Screening for colon cancer: ?Status:?Acute ?Comment: This is a 59-year-old male, well-known to me for prior history related to perforated appendicitis now with ileocolic anastomosis, who presents for screening colonoscopy.? He has no prior screening history aside from a remote Cologuard test.? He denies any concerns with his bowel habits.? Given the absence of any screening history, I certainly agree with the indication and we will plan to proceed with a endoscopic investigation under local MAC.? Procedure (including prep) as well as post procedure expectations were described in detail. ?Plan: Plan will be to complete colonoscopy on first mutually agreeable date under local MAC.? Pre-procedure prep discussed and paper instructions provided.? Patient is also made aware that he will need to have a buggy driver with him the day of the procedure. I have examined the patient the following changes are noted: Patient's spouse states that he has had a very difficult time with tremors lately and has not been sleeping well. Otherwise Mr. Martin reports that he is in his usual state of health and has completed his prep successfully with now clear output. Therefore we will proceed as planned for colonoscopy under local MAC.
[2022-08-14 10:49] VITALS: BP 121/79; BP 159/89; PULSE 85; RESP 16; TEMP 36.2; O2SAT 100
--- NOTE | 2022-08-14 10:51 | OP.COLON_ITS ---
Patient Name: Brando Martin Procedure Date: 08/14/2022 9:26 AM Date of : 1960 Age: 61 Procedure: Colonoscopy Indications: Screening for colorectal malignant neoplasm Providers: Nathan Taveras MD Medicines: See the Anesthesia note for documentation of the administered medications Patient Profile: Last Colonoscopy: none. The patient's first colonoscopy is today. Complications: No immediate complications. Estimated blood loss: Minimal. Procedure: Pre-Anesthesia Assessment: - The heart rate, respiratory rate, oxygen saturations, blood pressure, adequacy of pulmonary ventilation, and response to care were monitored throughout the procedure. After I obtained informed consent, the scope was passed under direct vision. Throughout the procedure, the patient's blood pressure, pulse, and oxygen saturations were monitored continuously. The Colonoscope was introduced through the anus and advanced to the ileocolonic anastomosis. The colonoscopy was technically difficult and complex due to poor bowel prep and significant looping. Successful completion of the procedure was aided by straightening and shortening the scope to obtain bowel loop reduction and lavage. The patient tolerated the procedure fairly well. The quality of the bowel preparation was adequate to identify polyps 6 mm and larger in size. Scope In: 9:43:32 AM Scope Withdrawal Time 0 hours 33 minutes 6 seconds Scope Out: 10:43:30 AM Total Procedure Duration Time 0 hours 59 minutes 58 seconds Findings: There was evidence of a prior functional end-to-end ileo-colonic anastomosis in the ascending colon. This was patent. The anastomosis was not traversed. A medium polyp was found in the transverse colon. The polyp was pedunculated. The polyp was removed with a hot snare. Resection and retrieval were complete. Estimated blood loss was minimal. A 10 mm polyp was found in the sigmoid colon. The polyp was semi-pedunculated. The polyp was removed with a hot snare. Resection and retrieval were complete. Estimated blood loss was minimal. The exam was otherwise without abnormality on direct and retroflexion views. Impression: - Patent functional end-to-end ileo-colonic anastomosis. - One medium polyp in the transverse colon, removed with a hot snare. Resected and retrieved. - One 10 mm polyp in the sigmoid colon, removed with a hot snare. Resected and retrieved. - The examination was otherwise normal on direct and retroflexion views. Recommendation: - Discharge patient to home (via wheelchair). - Resume previous diet today. - Continue present medications. - Await pathology results. - Repeat colonoscopy date to be determined after pending pathology results are reviewed for surveillance based on pathology results. - Telephone my office for pathology results in 1 week. Procedure Code(s): --- Professional --- 12646, Colonoscopy, flexible; with removal of tumor(s), polyp(s), or other lesion(s) by snare technique Diagnosis Code(s): --- Professional --- Z12.11, Encounter for screening for malignant neoplasm of colon Z98.0, Intestinal bypass and anastomosis status D12.3, Benign neoplasm of transverse colon (hepatic flexure or splenic flexure) D12.5, Benign neoplasm of sigmoid colon CPT copyright 2017 [employer]. All rights reserved. The codes documented in this report are preliminary and upon palm and back forger review may be revised to meet current compliance requirements. Nathan Taveras MD 08/14/2022 10:51:24 AM This report has been signed electronically. Number of Addenda: 0 Note Initiated On: 08/14/2022 9:26 AM
--- NOTE | 2022-08-14 10:52 | OP.CCLET_ITS ---
08/14/2022 Aleshia Marino Md Re : Colonoscopy procedure for Brando Martin Dear Ned This procedure was performed on August. My impressions and recommendations are as follows: Impressions : - Patent functional end-to-end ileo-colonic anastomosis. - One medium polyp in the transverse colon, removed with a hot snare. Resected and retrieved. - One 10 mm polyp in the sigmoid colon, removed with a hot snare. Resected and retrieved. - The examination was otherwise normal on direct and retroflexion views. Recommendations : - Discharge patient to home (via wheelchair). - Resume previous diet today. - Continue present medications. - Await pathology results. - Repeat colonoscopy date to be determined after pending pathology results are reviewed for surveillance based on pathology results. - Telephone my office for pathology results in 1 week. My findings are described in the full procedure note, which is enclosed. If I can be of further assistance, please feel free to contact me at Doctor phone number(s): , Work: . Sincerely, Nathan Taveras MD 08/14/2022 10:51:24 AM This report has been signed electronically.
[2022-08-14 10:55] VITALS: BP 129/88; BP 159/89; PULSE 81; RESP 16; O2SAT 97
[2022-08-14 11:03] VITALS: BP 142/97; BP 159/89; PULSE 77; RESP 16; TEMP 36.2; O2SAT 98
[2022-08-14 11:20] VITALS: BP 159/89
== END 2022-08-14 11:37 | disposition home or self-care (01) ==
LOC: EN 08:02 → AC 08:02
PROVIDERS: PCP Internal Medicine; Referring Provider Internal Medicine; Visit Provider Surgery
PROC: 0DJD8ZZ Inspection of Lower Intestinal Tract, Via Natural or Artificial Opening Endoscopic (ICD-10-PCS; CPT 45378; principal; 2022-08-14 09:25)
DX: Z12.11 Encounter for screening for malignant neoplasm of colon (principal); Z87.891 Personal history of nicotine dependence; D12.3 Benign neoplasm of transverse colon; D12.5 Benign neoplasm of sigmoid colon; Z98.0 Intestinal bypass and anastomosis status
CPT/HCPCS: 45385; 88305; J7120; J2405

== ENCOUNTER → 2022-09-15 | Outpatient (CLI) | payer MEDICARE, MEDICAID, SELFPAY ==
--- NOTE | 2022-09-15 16:31 | CPS ---
Electrodiagnostic testing could not be performed at today's visit due to the patient's prominent tremor. Per Dr. León, if benefit out weighs the risks, testing under conscious sedation could be considered. Please note, while this will increase the sensitivity of nerve conduction it may limit the yield of needle electromyography.
== END | disposition home or self-care (01) ==
LOC: PSN 15:32
PROVIDERS: PCP Internal Medicine; Visit Provider Psychiatry & Neurology Neurology
DX: G56.01 Carpal tunnel syndrome, right upper limb (principal)

== ENCOUNTER → 2022-10-13 | Outpatient (CLI) | payer MEDICARE, MEDICAID, SELFPAY ==
[2022-10-13 09:39] LABS: Ammonia < 10.0 umol/L (11-32)
[2022-10-13 10:09] LABS: Hematocrit 46.6 % (40-54); Hemoglobin 15.9 g/dL (13.0-16.5); Mean Corp Hgb Conc 34.1 g/dL (32-36); Mean Corpuscular Hgb 32.8 pg (27.0-32.0); Mean Corpuscular Volume 96.1 fL (80-94); Mean Platelet Vol. 10.2 fl (6.2-12.0); Platelet Count 249 K/mm3 (150-450); RBC Distribution Width CV 12.3 % (11.6-14.6); Red Blood Count 4.85 M/mm3 (4.6-6.2); White Blood Count 8.8 K/mm3 (4.4-11.0)
[2022-10-13 10:52] LABS: ALB/GLOB Ratio 1.1 RATIO (0.9-2.4); AST(SGOT) 15 U/L (15-37); Alanine Aminotransfer ALT/SGPT 19 U/L (16-61); Albumin, Serum 3.8 g/dL (3.2-5.0); Alkaline Phosphatase 69 U/L (45-117); Anion Gap 7 (5-15); BUN 9 mg/dL (7-18); BUN/Creat Ratio 11.9 RATIO (10-20); Calcium,Total 8.9 mg/dL (8.5-10.1); Chloride 107 mmol/L (98-107); Creatinine, Serum 0.75 mg/dL (0.70-1.30); EST Glomerular Filtration Rate 111 mL/min (>60); Est Glom Filt Rate - Afr Amer 134 mL/min (>60); Globulin 3.5 g/dL (2.2-4.2); Glucose 96 mg/dL (74-106); Magnesium 2.1 mg/dL (1.6-2.6); Potassium 3.9 mmol/L (3.5-5.1); Protein, Total 7.3 g/dL (6.4-8.2); Sodium Level 141 mmol/L (136-145); Thyroid Stim Hormone (TSH) 1.56 uIU/mL (0.358-3.74)
== END | disposition home or self-care (01) ==
PROVIDERS: PCP Internal Medicine; Referring Provider Psychiatry & Neurology Neurology; Visit Provider Psychiatry & Neurology Neurology
DX: G25.0 Essential tremor (principal)
CPT/HCPCS: 36415; 80053; 82140; 83735; 84443; 85027

== ENCOUNTER → 2023-07-22 | Outpatient (CLI) | payer MEDICARE, MEDICAID, SELFPAY ==
[2023-07-22 09:34] LABS: Cholesterol 189 mg/dL (200); High Density Lipoprotein 55 mg/dL; Triglycerides 86 mg/dL; Very Low Density Lipoprotein 17 mg/dL (5-40)
== END | disposition home or self-care (01) ==
LOC: LAB 08:07
PROVIDERS: PCP Internal Medicine; Referring Provider Internal Medicine; Visit Provider Internal Medicine
DX: I10 Essential (primary) hypertension (principal)
CPT/HCPCS: 36415; 80061

== ENCOUNTER → 2023-08-14 | Outpatient (CLI) | payer MEDICARE, SELFPAY ==
--- OUTSIDE RECORDS SUMMARY | 2023-08-14 19:41 | XMS RPT_ITS | CCD ---
Author Name Unknown Address [address] [place] [address] Organization [facility] Care Team Providers Care Courseware Developer Name Role Phone Angelica MITCHELL, Estelita Baez Primary Care Provider Maci Marino MD Primary Care Provider [phone] Allergies Allergy Classification Reported Allergen(s) Allergy Type Date of Onset Reaction(s) Facility (10 sources) Acetaminophen Drug Allergy 4 GI Upset, Other: See Comments [facility] (10 sources) DULoxetine Drug Allergy 1 Other: See Comments [facility] Work Phone: (10 sources) fentaNYL Drug Allergy 4 GI Upset [facility] (10 sources) gabapentin Drug Allergy [address] [facility] Work Phone: (10 sources) Methocarbamol Drug Allergy [address] [facility] Work Phone: (10 sources) Metoclopramide Drug Allergy 4 Mental Status Change [facility] (10 sources) traMADol Drug Allergy [address] [facility] Work Phone: Medications Current Medications Medication Drug Class(es) Dates Sig (Normalized) Sig (Original) ALPRAZolam 0.5 mg oral tablet (3 sources) Benzodiazepine Start: 01-02-2022 End: 01-03-2022 ALPRAZolam (XANAX) 0.5 mg tablet Take 1 tablet by mouth as needed for up to 1 dose. To be administered prior to MRI for anxiolysis. 1 tablet 0 01/02/2022 01/03/2022 Active Completed/Discontinued Medications Medication Drug Class(es) Dates Sig (Normalized) Sig (Original) hydroCHLOROthiazide 25 mg / triamterene 37.5 mg oral capsule (10 sources) Potassium-spari ng Diuretic, Thiazide Diuretic Start: 06-12-2020 take 1 capsule by mouth once daily triamterene-hydro chlorothiazide (DYAZIDE) 37.5-25 mg per capsule Indications: Essential hypertension Take 1 capsule by mouth once daily. 30 capsule 11 06/12/2020 Active Problems Active Problems Problem Classification Problem Date Documented Date Episodic/Chronic Esophageal disorders (10 sources) Gastroesophageal reflux disease; Translations: [Gastro-esophageal reflux disease without esophagitis] Onset: 10-20-2013 10-20-2013 Chronic Essential hypertension (10 sources) Essential hypertension; Translations: [Essential (primary) hypertension] Onset: 09-08-2016 09-08-2016 Chronic Headache; including migraine (10 sources) Cluster headache; Translations: [Cluster headache syndrome, unspecified, not intractable] Onset: 12-14-2013 12-14-2013 Chronic Other endocrine disorders (10 sources) Adrenal incidentaloma; Translations: [Other specified disorders of adrenal gland] Onset: 08-19-2018 08-19-2018 Chronic Other nervous system disorders (1 source) Abnormal involuntary movement; Translations: [Unspecified abnormal involuntary movements] Episodic Spondylosis; intervertebral disc disorders; other back problems (20 sources) Degeneration of lumbosacral intervertebral disc; Translations: [Other intervertebral disc degeneration, lumbosacral region] Onset: 01-18-2002 11-27-2003 Chronic Past or Other Problems Problem Classification Problem Date Documented Date Episodic/Chronic Other acquired deformities (10 sources) Other specified acquired deformities of unspecified lower leg; Translations: [Other acquired deformities of ankle and foot] Onset: 01-18-2002 11-27-2003 Episodic Other nervous system disorders (10 sources) Abnormal gait; Translations: [Unspecified abnormalities of gait and mobility] Onset: 01-18-2002 11-27-2003 Episodic Pancreatic disorders (not diabetes) (10 sources) Acute pancreatitis; Translations: [Acute pancreatitis without necrosis or infection, unspecified] Onset: 08-19-2018 08-19-2018 Episodic Residual codes; unclassified (10 sources) History of hernia repair; Translations: [Other specified postprocedural states] Onset: 01-11-2017 01-11-2017 Episodic Spondylosis; intervertebral disc disorders; other back problems (14 sources) Thoracic and lumbosacral neuritis; Translations: [Thoracic or lumbosacral neuritis or radiculitis, unspecified] Onset: 01-18-2002 11-27-2003 Episodic Results Test Name Value Interpretation Reference Range Facil ity Encounters Encounter Date Encounter Type Care Provider Facility Start: 02-24-2022 ambulatory Sabrina Carlyn Acosta MA [facility] Procedures Date Procedure Procedure Detail Performing Clinician Start: 01-02-2022 Mri spinal canal cer vical w/o contrast matrl Kristopher Gómez MD Work Phone: Start: 09-20-2020 Adult depression screening assessment Estelita Dominguez MD Work Phone: Plan of Treatment Date Care Activity Detail Author Start: 02-07-2026 LIPID SCREEN LIPID SCREEN [facility] Start: 05-22-2025 PROSTATE CANCER SCRE ENING DISCUSSION PROSTATE CANCER SCREENING DISCUSSION [facility] Start: 02-08-2024 DIABETES SCREEN DIABETES SCREEN [facility] Start: 10-21-2023 Urine microalbumin profile DTA P,TDAP,TD (2 - Td or Tdap) [facility] Start: 07-11-2022 BP CONTROLLED (<130/80) BP CONTROLLE D (<130/80) [facility] Start: 04-03-2022 Influenza vaccination [facility] Start: 02-08-2022 ANNUAL PCP TEAM W[place]E [place] HOSTESS [place] DISEASE VISIT ANNUAL PCP TEAM CHRONIC DISEASE VISIT [facility] Start: 02-08-2022 SHINGRIX VACCINE (1 of 2) GÓMEZ GRIX VACCINE (1 of 2) [facility] Immunizations Immunization Date Immunization Notes Care Provider Fa darnellty 10-20-2013 tetanus toxoid, redu solo diphtheria toxoid, and acellular pertussis vaccine, adsorbed Estelita Dominguez MD Work Phone: [facility] Payers Date Payer Category Payer Medicare MEDICARE MEDICAR E A AND B [id number] 2002-Present [phone] [place] [address] Medicare [id number] Social History Date Type Detail Facility Tobacco smoking stat us NHIS Ex-smoker [facility] Work Phone: Start: 07-11-2021 Alcohol intake Current non-dr milan of alcohol (finding) [facility] Start: 02-08-2021 History SDOH Alcohol Frequency [address] [facility] Start: 02-08-2021 History SDOH Alcohol Std Drinks [address] [facility] Start: 02-08-2021 History SDOH Social Connections Get Together [address] [facility] Start: 02-08-2021 History SDOH Social Connections Holiness [address] [facility] Start: 02-08-2021 History SDOH Financial [address] [facility] Start: 02-08-2021 Education [address] [facility] Start: 04-25-2014 Tobacco Comment quit 1980 [facility] Start: 1960 Sex Assigned At Not on file [facility] Start: 12-23-2021 End: 01-08-2022 Exposure to SARS-CoV-2 (event) Not sure [facility] Clinical Notes 05-30-2021 to 02-24-2022 Sabrina Acosta MA - 02/24/2022 9:37 AM EDTDakira Hilario APRN.CODI - 01/09/2022 10:59 AM EDTTelephone Encounter - Saba Ny RN - 01/03/2022 2:51 PM EDT Note Date & Type Note Facility 02-24-2022 Note Patient Outreach (AZUCENA NARAYANAV) OLGA MARTIN ([id number]) 1960 M Date Time Provider Department 02/24/22 SABRINA ACOSTA During your visit today, we recorded the following information about you: Sabrina Acosta MA 02/24/2022 12:39 PM Signed POPULATION HEALTH NAVIGATION OUTREACH Action/AMARII Spoke to Olga, he has a new PCP. Dr. Velasquez Health Maintenance items due: ANNUAL MEDICARE WELLNESS COLORECTAL CANCER SCREENING Never done ANNUAL PCP TEAM CHRONIC DISEASE VISIT due on 02/08/2022 Pt identified by name and : YES, via phone Outreach Outcome/Action Spoke to patient or caregiver: Patient declined PCP field updated Did you use a PCP flex slot to schedule this appointment? N/A Reason for Outreach HCC or suspected condition Payer: Payor: MEDICARE / Plan: MEDICARE A AND B / Product Type: Medicare / Care Gap Reviewed:: Annual Wellness visit Colorectal Cancer Screening Reminder: Reminder note to check Health Maintenance for items below Health Maintenance items due: HEPATITIS C SCREENING Never done HIV SCREENING Never done COLORECTAL CANCER SCREENING Never done SHINGRIX VACCINE(1 of 2) Never done DEPRESSION SCREENING due on 09/20/2021 COVID-19 VACCINE(4 - Booster for Pfizer series) due on 11/16/2021 ANNUAL PCP TEAM CHRONIC DISEASE VISIT due on 02/08/2022 Message Sent to Practice: No Navigation Signature: Sabrina Acosta MA February 24, 2022 9:37 AM Allergies As of Date: 02/24/2022 Noted Allergy Reaction ACETAMINOPHEN 08/23/2013 8 - GI Upset 14 - Other: See Comments Comments: headaches DULOXETINE 02/08/2021 14 - Other: See Comments Comments: Made him DURAGESIC (FENTANYL) 08/23/2013 8 - GI Upset GABAPENTIN 01/19/2014 11 - Vomiting REGLAN (METOCLOPRAMIDE HCL) 10/20/2013 1 - Mental Status Change ROBAXIN (METHOCARBAMOL) 01/19/2014 11 - Vomiting TRAMADOL 01/18/2002 Comments: ultram flu symptoms Date Reviewed: 01/02/2022 Reviewed by: Yogesh Medley RN - Fully Assessed Reason for Visit: Population Health Navigation Outreach [3910] Cmt: HCC Prescriptions as of 02/24/2022 - propranolol HCl (PROPRANOLOL ORAL) Take 1 capsule by mouth once daily. - prazosin (MINIPRESS) 1 mg cap Take 1 capsule by mouth daily at bedtime. - promethazine (PHENERGAN) 25 mg tablet Take 1 tablet by mouth every 6 hours as needed. - triamterene-hydrochlorothiazide (DYAZIDE) 37.5-25 mg per capsule Take 1 capsule by mouth once daily. 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 Author Type: Research Subject Type: Progress Notes Filed: 02/24/2022 12:39 PM Note Text: POPULATION HEALTH NAVIGATION OUTREACH Action/FYI Spoke to Olga, he has a new PCP. Dr. Velasquez Health Maintenance items due: ANNUAL MEDICARE WELLNESS COLORECTAL CANCER SCREENING Never done ANNUAL PCP TEAM CHRONIC DISEASE VISIT due on 02/08/2022 Pt identified by name and : YES, via phone Outreach Outcome/Action Spoke to patient or caregiver: Patient declined PCP field updated Did you use a PCP flex slot to schedule this appointment? N/A Reason for Outreach HCC or suspected condition Payer: Payor: MEDICARE / Plan: MEDICARE A AND B / Product Type: Medicare / Care Gap Reviewed:: Annual Wellness visit Colorectal Cancer Screening Reminder: Reminder note to check Health Maintenance for items below Health Maintenance items due: HEPATITIS C SCREENING Never done HIV SCREENING Never done COLORECTAL CANCER SCREENING Never done SHINGRIX VACCINE(1 of 2) Never done DEPRESSION SCREENING due on 09/20/2021 COVID-19 VACCINE(4 - Booster for Pfizer series) due on 11/16/2021 ANNUAL PCP TEAM CHRONIC DISEASE VISIT due on 02/08/2022 Message Sent to Practice: No Navigation Signature: Sabrina Acosta MA February 24, 2022 9:37 AM [facility] 02-24-2022 History of Presen t illness Narrative POPULATION HEALTH NAVIGATION OUTREACH Action/FYI Spoke to Olga, he has a new PCP. Dr. Velasquez Health Maintenance items due: ANNUAL MEDICARE WELLNESS COLORECTAL CANCER SCREENING Never done ANNUAL PCP TEAM CHRONIC DISEASE VISIT due on 02/08/2022 Pt identified by name and : YES, via phone Outreach Outcome/Action Spoke to patient or caregiver: Patient declined PCP field updated Did you use a PCP flex slot to schedule this appointment? N/A Reason for Outreach HCC or suspected condition Payer: Payor: MEDICARE / Plan: MEDICARE A AND B / Product Type: Medicare / Care Gap Reviewed:: Annual Wellness visit Colorectal Cancer Screening Reminder: Reminder note to check Health Maintenance for items below Health Maintenance items due: HEPATITIS C SCREENING Never done HIV SCREENING Never done COLORECTAL CANCER SCREENING Never done SHINGRIX VACCINE(1 of 2) Never done DEPRESSION SCREENING due on 09/20/2021 COVID-19 VACCINE(4 - Booster for Pfizer series) due on 11/16/2021 ANNUAL PCP TEAM CHRONIC DISEASE VISIT due on 02/08/2022 Message Sent to Practice: No Navigation Signature: Sabrina Acosta MA February 24, 2022 9:37 AM documented in this encounter [facility] 01-09-2022 Note HNO ID: [id number] Author: Nisa Hilario APRN.ABE TEACHER Service: ? Author Type: Nurse Practitioner Type: Progress Notes Filed: 01/10/2022 12:46 PM Note Text: SUBJECTIVE: Olga Martin presents to [facility] for a follow up appointment for MRI results. Since the last visit, Olga Martin states the pain has been worse. Current pain intensity is 6 on a scale of 0-10. Pain located in neck area and radiates down the anterior and lateral aspect of the bilateral arm to the level of the fingers. Pain described as aching and sharp The patient Reports numbness and tingling. Symptoms interfere with physical activity, sleeping, bathing, driving, cooking, household cleaning, reaching for shelves and lifting. Pain is exacerbated by activity. Pain is mitigated by resting. The medications are effective. The patient states the last dose of flexeril was taken at last night. REVIEW OF SYSTEMS: Constitutional: (-) Weight Gain (+) Weight Loss (+) Fatigue Cardiovascular: (-) hx heart surgery (-) Pacemaker Respiratory: (-) Shortness of Breath (-) Cough (+) Snoring Gastrointestinal: (-) Incontinence (-) Diarrhea (-) Constipation (-) Nausea/Vomiting Endocrine: (-) Thyroid Disorder (-) Diabetes Hematologic: (-) Prolonged Bleeding (-) Easy Bruising Genitourinary: (-) Incontinence (-) Frequency (-) Urinary Urgency Skin: (-) Open sores/wound Neurologic: (-) Headache (-) Double Vision Psychiatric: (+) Depression (+) Anxiety (+) Personal History of Alcohol or Substance Abuse (-) Family History of Alcohol or Substance Abuse CHIEF COMPLAINT:Patient presents with: Results - Mri OBJECTIVE: There were no vitals taken for this visit. PHYSICAL EXAMINATION: General appearance: Well appearing, in no acute distress, alert and oriented x3 Skin: Skin color, texture, turgor normal, no rashes or lesions Neck: Tenderness to palpation over the cervical paraspinous muscles. ROM intact Cardiovascular: Regular, rate and rhythm Lungs: Normal respiratory rate and rhythm, Lungs clear to auscultation Back: Intact range of motion without pain reproduction. Facet:positive cervical facet loading Spine: DeniesTenderness on palpation: Lumbar/Pelvic none Extremities: No deformities, edema, or skin discoloration. Good capillary refill. Musculoskeletal: Right shoulder tenderness Neuro: No loss of sensation is noted. involuntary tremors of the right and left arm and hands Station and Gait: severe gait disturbance (can walk only with assistance) in wheelchair today ASSESSMENT: Assessment : Patient presents for follow-up visit. He is accompanied by his Patient has a history of neck pain that radiates into the right shoulder and down the right arm. He reports the pain in the right shoulder is from the shaking of the hand and arm and he is now experiencing clicking of the tongue Reviewed cervical MRI. Dr. Gómez recommends Right Paramedian C6-C7 Interlaminar Cervical Epidural Injection to help reduce your right arm pain. Patient would like to hold off on any injections with hopes that the tremors can be decreased Patient reports that his worst complaint is the involuntary movement of his right upper extremity. He reports the shaking is now moving into his left upper extremity. He has a history of essential tremors. He has tried multiple medications without much benefit to include primidone, Sinemet, Requip and Cymbalta. He currently takes propranolol for his high blood pressure. Also recommended he see psychiatry. Unclear if this has happened He reports the tremors started in 2019 and have gotten progressively worse He has seen several providers in the past for these tremors. He is frustrated. Patient reports he was admitted to [facility] for appendicitis with perforation in Sep 2021, he developed a wound infection and was dealing with that for several months. This caused a delay in follow up visits He struggles with transportation issues and lives in [place]. Patient has a history of spinal fracture L3 in 1993 which resulted in a surgery. He then had a surgery again in 1996. Patient reports drop foot in the right foot Patient has a history of spinal cord stimulator 2002 but was removed due to MRSA Encounter Diagnosis ICD-10-CM 1. Abnormal involuntary movement R25.9 CONSULT TO FUNCTIONAL MOVEMENT DISORDERS (FMD) 2. Spinal stenosis of cervical region M48.02 3. Cervicalgia M54.2 PDMP website checked and validated. All prescriptions have been APPROPRIATELY filled. No suspicious activity was identified. 01/09/2022 by Nisa Hilario APRN.ABE TEACHER Narcotic Agreement reviewed and signed?: N/A on January 09, 2022 The pain panel was N/A PLAN: Injection history was reviewed. Medication use and compliance were reviewed. 1. Continue medication management through the patient's current prescribing physician 2. No (more content not included)... [facility] 01-09-2022 History of Presen t illness Narrative SUBJECTIVE: Olga Martin presents to [facility] for a follow up appointment for MRI results. Since the last visit, Olga aMrtin states the pain has been worse. Current pain intensity is 6 on a scale of 0-10. Pain located in neck area and radiates down the anterior and lateral aspect of the bilateral arm to the level of the fingers. Pain described as aching and sharp The patient Reports numbness and tingling. Symptoms interfere with physical activity, sleeping, bathing, driving, cooking, household cleaning, reaching for shelves and lifting. Pain is exacerbated by activity. Pain is mitigated by resting. The medications are effective. The patient states the last dose of flexeril was taken at last night. REVIEW OF SYSTEMS: Constitutional: (-) Weight Gain (+) Weight Loss (+) Fatigue Cardiovascular: (-) hx heart surgery (-) Pacemaker Respiratory: (-) Shortness of Breath (-) Cough (+) Snoring Gastrointestinal: (-) Incontinence (-) Diarrhea (-) Constipation (-) Nausea/Vomiting Endocrine: (-) Thyroid Disorder (-) Diabetes Hematologic: (-) Prolonged Bleeding (-) Easy Bruising Genitourinary: (-) Incontinence (-) Frequency (-) Urinary Urgency Skin: (-) Open sores/wound Neurologic: (-) Headache (-) Double Vision Psychiatric: (+) Depression (+) Anxiety (+) Personal History of Alcohol or Substance Abuse (-) Family History of Alcohol or Substance Abuse CHIEF COMPLAINT:Patient presents with: Results - Mri OBJECTIVE: There were no vitals taken for this visit. PHYSICAL EXAMINATION: General appearance: Well appearing, in no acute distress, alert and oriented x3 Skin: Skin color, texture, turgor normal, no rashes or lesions Neck: Tenderness to palpation over the cervical paraspinous muscles. ROM intact Cardiovascular: Regular, rate and rhythm Lungs: Normal respiratory rate and rhythm, Lungs clear to auscultation Back: Intact range of motion without pain reproduction. Facet:positive cervical facet loading Spine: DeniesTenderness on palpation: Lumbar/Pelvic none Extremities: No deformities, edema, or skin discoloration. Good capillary refill. Musculoskeletal: Right shoulder tenderness Neuro: No loss of sensation is noted. involuntary tremors of the right and left arm and hands Station and Gait: severe gait disturbance (can walk only with assistance) in wheelchair today ASSESSMENT: Assessment : Patient presents for follow-up visit. He is accompanied by his Patient has a history of neck pain that radiates into the right shoulder and down the right arm. He reports the pain in the right shoulder is from the shaking of the hand and arm and he is now experiencing clicking of the tongue Reviewed cervical MRI. Dr. Gómez recommends Right Paramedian C6-C7 Interlaminar Cervical Epidural Injection to help reduce your right arm pain. Patient would like to hold off on any injections with hopes that the tremors can be decreased Patient reports that his worst complaint is the involuntary movement of his right upper extremity. He reports the shaking is now moving into his left upper extremity. He has a history of essential tremors. He has tried multiple medications without much benefit to include primidone, Sinemet, Requip and Cymbalta. He currently takes propranolol for his high blood pressure. Also recommended he see psychiatry. Unclear if this has happened He reports the tremors started in 2019 and have gotten progressively worse He has seen several providers in the past for these tremors. He is frustrated. Patient reports he was admitted to [facility] for appendicitis with perforation in Sep 2021, he developed a wound infection and was dealing with that for several months. This caused a delay in follow up visits He struggles with transportation issues and lives in [place]. Patient has a history of spinal fracture L3 in 1993 which resulted in a surgery. He then had a surgery again in 1996. Patient reports drop foot in the right foot Patient has a history of spinal cord stimulator 2002 but was removed due to MRSA Encounter Diagnosis ICD-10-CM 1. Abnormal involuntary movement R25.9 CONSULT TO FUNCTIONAL MOVEMENT DISORDERS (FMD) 2. Spinal stenosis of cervical region M48.02 3. Cervicalgia M54.2 PDMP website checked and validated. All prescriptions have been APPROPRIATELY filled. No suspicious activity was identified. 01/09/2022 by Nisa Hilario APRN.CODI Narcotic Agreement reviewed and signed?: N/A on January 09, 2022 The pain panel was N/A PLAN: Injection history was reviewed. Medication use and compliance were reviewed. 1. Continue medication management through the patient's current prescribing physician 2. No medications selected for refill. 3. Interventional procedure options discussed. May consider cervical facet injections 4. Patient will need to schedule a follow up appt with Neuro 5) F/U in prn I spent a total of 30 minutes on the date of the service which included preparing to see the patient, [id number] patient care, completing clinical documentation, performing a medically appropriate examination and ordering medications, tests, or procedures. The above plan and management options were discussed at length with patient. Patient is in agreement with the above and verbalized understanding. Nisa Hilario APRN, CODI January 09, 2022 documented in this encounter [facility] 06-03-2022 Miscellaneous Notes Results sent via Everywun message at this time Injection order signed off Please call patient to schedule procedure Dr. Gómez reviewed patient's MRI Cervical Spine Dr. Gómez notes multilevel degenerative changes of the cervical spine Multiple levels of osteophyte formation rand facet joint aortopathy resulting in varying degree of foraminal stenosis and spinal canal stenosis Dr. Gómez recommends Right Paramedian C6-C7 Interlaminar Cervical Epidural Injection to help reduce patient's right upper extremity radicular symptom documented in this encounter [facility] 01-02-2022 Nurse Note MRI PROCEDURE NOTE PATIENT NAME: Olga Martin DATE OF SERVICE: January 02, 2022 TIME: 12:26 PM PATIENT WEIGHT: 236 LBS PATIENT IDENTITY VERIFICATION COMPLETED USING TWO (2) STANDARD IDENTIFIERS: Name and Date of confirmed by patient verbally and Name and Date of confirmed by identification band. FALL SCREENING: Has the patient had 2 falls in the last year or 1 fall with injury or currently using an Ambulatory Assistive Device (Walker, Cane, Wheelchair, Crutches, etc.)? Yes, Patient High Risk for Falls What interventions were put in place to prevent falls during this visit? Yellow Falls Risk Wristband Applied PATIENT GENDER DATA: Male PATIENT RELEVANT IMPLANT DATA REVIEWED: Yes ALLERGIES: Reviewed and unchanged CONTRAST ALLERGY: No MEDICATIONS REVIEWED: YES EXAM: MRI - CONTRAST TYPE: GROUP II PROCEDURE: Anxiolysis IV SITE: N/A PERIPHERAL IV ACCESS: Not applicable ANXIOLYSIS/ANESTHESIA: Xanax 0.5 mg SL PATIENT TOLERATED PROCEDURE: Without incident. PATIENT DISCHARGED TO: Home/Self Care SIGNED BY: Josiane Goff RN January 02, 2022 12:26 PM SIGNATURE: Josiane Goff RN PATIENT NAME: Olga Martin DATE: January 02, 2022 TIME: 12:26 PM documented in this encounter [facility] 11-14-2021 Miscellaneous Notes Per other encounter did call pt 2 time to arrange hospital follow up. He did go back to ER for back pain. Called again with no response. TC to patient. No answer. Left message to return call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
== END | disposition home or self-care (01) ==
LOC: SL 19:39
PROVIDERS: PCP Internal Medicine; Referring Provider Psychiatry & Neurology Neurology; Visit Provider Psychiatry & Neurology Neurology
DX: G47.61 Periodic limb movement disorder (principal)
CPT/HCPCS: 95810

== ENCOUNTER → 2023-09-11 | Outpatient (CLI) | payer MEDICARE, SELFPAY ==
--- OUTSIDE RECORDS SUMMARY | 2023-09-11 20:18 | XMS RPT_ITS | CCD ---
Author Name Unknown Address [address] [place] [address] Organization [facility] Care Team Providers Care Water Reclamation Systems Operator Name Role Phone Angelica MITCHELL, Estelita Baez Primary Care Provider Maci Marino MD Primary Care Provider [phone] Allergies Allergy Classification Reported Allergen(s) Allergy Type Date of Onset Reaction(s) Facility (10 sources) Acetaminophen Drug Allergy 4 GI Upset, Other: See Comments [facility] (10 sources) DULoxetine Drug Allergy 1 Other: See Comments [facility] Work Phone: (10 sources) fentaNYL Drug Allergy 4 GI Upset [facility] (10 sources) gabapentin Drug Allergy 4 Vomiting [facility] Work Phone: (10 sources) Methocarbamol Drug Allergy 4 Vomiting [facility] Work Phone: (10 sources) Metoclopramide Drug Allergy 4 Mental Status Change [facility] (10 sources) traMADol Drug Allergy 2 [facility] Work Phone: Medications Current Medications Medication [...] 02-24-2022 ambulatory Sabrina Carlyn Acosta MA [facility] [address] [employer] Procedures Date Procedure Procedure Detail Performing Clinician Start: 01-02-2022 Mri spinal canal cer vical w/o contrast matrl Kristopher Gómez MD Work Phone: Start: 09-20-2020 Adult depression screening assessment Estelita Dominguez MD Work Phone: Plan of Treatment Date Care Activity Detail Author Start: 02-07-2026 LIPID SCREEN LIPID SCREEN [facility] Start: 05-22-2025 PROSTATE CANCER SCRE ENING DISCUSSION PROSTATE CANCER SCREENING DISCUSSION [facility] Start: 02-08-2024 DIABETES SCREEN DIABETES SCREEN [facility] Start: 10-21-2023 Urine microalbumin profile DTA P,TDAP,TD (2 - Td or Tdap) [facility] Start: 07-11-2022 BP CONTROLLED (<130/80) BP CONTROLLE D (<130/80) [facility] Start: 04-03-2022 Influenza vaccination C [facility] Start: 02-08-2022 ANNUAL PCP TEAM GROUNDWATER CONSULTANT GLENN DISEASE VISIT ANNUAL PCP TEAM CHRONIC DISEASE VISIT [facility] Start: 02-08-2022 SHINGRIX VACCINE (1 of 2) GÓMEZ GRIX VACCINE (1 of 2) [facility] Immunizations Immunization Date Immunization Notes Care Provider Fa darnellty 10-20-2013 tetanus toxoid, redu solo diphtheria toxoid, and acellular pertussis vaccine, adsorbed Estelita Dominguez MD Work Phone: [facility] Payers Date Payer Category Payer Medicare MEDICARE MEDICAR E A AND B [id number] 2002-Present [phone] [place] [address] Medicare [id number] Social History Date Type Detail Facility Tobacco smoking stat us NHIS Ex-smoker [facility] Work Phone: Start: 07-11-2021 Alcohol intake Current non-dr milan of alcohol (finding) [facility] Start: 02-08-2021 History SDOH Alcohol Frequency 1 [facility] Start: 02-08-2021 History SDOH Alcohol Std Drinks 98 [facility] Start: 02-08-2021 History SDOH Social Connections Get Together 2 [facility] Start: 02-08-2021 History SDOH Social Connections Rastafarian 3 [facility] Start: 02-08-2021 History SDOH Financial 4 [facility] Start: 02-08-2021 Education 14 [facility] Start: 04-25-2014 Tobacco Comment quit 1980 [facility] Start: 1960 Sex Assigned At Not on file C [facility] Start: 12-23-2021 End: 01-08-2022 Exposure to SARS-CoV-2 (event) Not sure [facility] Clinical Notes 05-30-2021 to 02-24-2022 Sabrina Acosta MA - 02/24/2022 9:37 AM EDTDakira Hilario APRN.CODI - 01/09/2022 10:59 AM EDTTelephone Encounter - Saba Ny RN - 01/03/2022 2:51 PM EDT Note Date & Type Note Facility 02-24-2022 Note Patient Outreach (AZUCENA NARAYANAV) OLGA MARTIN ([id number]) 1960 M Date Time Provider Department 02/24/22 [...] OF GAIT [R26.9] 01/18/2002 LUMBOSACRAL NEURITIS NOS [[id number]] 01/18/2002 LUMB/LUMBOSAC DISC DEGEN [M51.37] 01/18/2002 POSTLAMINECT SYND-LUMBAR [M96.1] 01/18/2002 GERD (gastroesophageal reflux disease) [K21.9] 10/20/2013 Cluster headaches [G44.009] 12/14/2013 History of ventral hernia repair [Z98.890, Z87.*08/13/2016 Essential hypertension [I10] 09/08/2016 Acute pancreatitis [K85.90] 08/19/2018 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 Author Type: Lcac Operator Type: Progress Notes Filed: 02/24/2022 12:39 PM [...] Acosta MA February 24, 2022 9:37 AM [facility] 02-24-2022 History of Presen t illness [...] 2022 9:37 AM documented in this encounter [facility] 01-09-2022 Note HNO ID: [id number] Author: Nisa Hilario APRN.DIALYSIS CLINICAL MANAGER Service: ? Author Type: Nurse Practitioner Type: Progress Notes Filed: 01/10/2022 12:46 PM Note Text: SUBJECTIVE: Olga Martin presents to [facility] for a [...] frustrated. Patient reports he was admitted to [facility] for appendicitis with perforation in Sep 2021, he developed a wound infection and was dealing with that for several months. This caused a delay in follow up visits He struggles with transportation issues and lives in [place]. Patient has a history of spinal fracture [...] activity was identified. 01/09/2022 by Nisa Hilario APRN.DIALYSIS CLINICAL MANAGER Narcotic Agreement reviewed and signed?: N/A on January 09, 2022 The pain panel was N/A PLAN: Injection history was reviewed. Medication use and compliance were reviewed. 1. Continue medication management through the patient's current prescribing physician 2. No (more content not included)... [facility] 01-09-2022 History of Presen t illness Narrative SUBJECTIVE: Olga Martin presents to [facility] Department for a follow [...] frustrated. Patient reports he was admitted to [facility] for appendicitis with perforation in Sep 2021, he developed a wound infection and was dealing with that for several months. This caused a delay in follow up visits He struggles with transportation issues and lives in [place]. Patient has a history of spinal fracture [...] which included preparing to see the patient, [id number] patient care, completing clinical documentation, performing a medically appropriate examination and ordering medications, tests, or procedures. The above plan and management options were discussed at length with patient. Patient is in agreement with the above and verbalized understanding. Nisa Hilario APRN, CODI January 09, 2022 documented in this encounter [facility] 06-03-2022 Miscellaneous Notes Results sent via [employer] message at this time Injection order signed [...] extremity radicular symptom documented in this encounter [facility] 01-02-2022 Nurse Note MRI PROCEDURE NOTE [...] TIME: 12:26 PM documented in this encounter [facility] 11-14-2021 Miscellaneous Notes Per other encounter [...] at the Continuity of Care document from [facility] on 11/04/21 there was an X-ray done [...] and advise. Thank you. LESLEE Ramirez Check [facility] records to see if this was addressed. If severe symptoms presently then recommend ER visit to evaluate and treat Moriah from [facility] Home Health OT calling she was at patient home to do OT eval one time visit. Patient was having so much lumbar area back pain rated at 10 out of a 10, could hardly get out out of bed. . Patient had told her he had fallen in bathroom while he was in the hospital. Patient said he has to get a issuer on his back pain before he can do anything. She is not aware of him taking any medications for his back pain. documented in this encounter [facility] 11-12-2021 Note HNO ID: [id number] Author: Kera Almanzar LPN Service: ? Author Type: ? Type: Progress Notes Filed: 11/13/2021 8:36 AM Note Text: Message left again for return call to complete TCM note and arrange hospital follow up. [facility] 11-12-2021 History of Presen t illness Narrative Message left again for return call to complete TCM note and arrange hospital follow up. Message left for pt to return call to a nurse to complete TCM note and arrange hospital follow up with pcpc's PLACING JUDGE. documented in this encounter [facility] 11-11-2021 Note HNO ID: [id number] Author: Kera Almanzar LPN Service: ? Author Type: ? Type: Progress Notes Filed: 11/13/2021 8:36 AM Note Text: Message left for pt to return call to a nurse to complete TCM note and arrange hospital follow up with pcpc's PLACING JUDGE. [facility] 11-11-2021 Note Patient Outreach (IN TMWS) OLGA MARTIN ([id number]) 1960 M Date Time Provider Department 11/11/21 ESTELITA DOMINGUEZ INTMWS During your visit today, we recorded the following information about you: Kera Almanzar NINA 11/13/2021 8:36 AM Signed Message left for pt to return call to a nurse to complete TCM note and arrange hospital follow up with pcpc's PLACING JUDGE. 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 Lita Esquivel LPN Ruthy notified, will follow-up to see if f/u is scheduled after discharge date Will follow along with HH Make sure he gets a follow up appointment Ruthy from [facility] Home Health calling received orders for retirement, PT/OT. Patient is discharging from TCU on 11/09 he had appe with preformation and abscess surgery done by Dr Taveras. Asking if PCP would follow patient and sign orders? Please advise documented in this encounter [facility] 09-13-2021 Note Patient Outreach (AM [facility]) OLGA MARTIN ([id number]) 1960 M Date Time Provider Department 09/13/21 [...] my direct line. Will also send a [employer] message. 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 Author Type: Lcac Operator Type: Progress Notes Filed: 09/13/2021 9:44 AM [...] my direct line. Will also send a [employer] message. Pt identified by name and : NO Outreach Outcome/Action Unable to reach patient: Left message [employer] message sent Reason for Outreach Care Gap [...] Woo MA September 13, 2021 9:40 AM [facility] 08-26-2021 Note HNO ID: [id number] Author: Kristopher Gómez MD Service: ? Author [...] Panel: No results found for: UQCANN, UQBNZL, CSI8ZRZ, UQAMPH, UQMAMP, UQBUPRE, UQNORBUP, UQMTHD, UQEDDP, UQTRAM, UQDTRM, UQFNTL, UQNFTL, UQCODE, UQMORP, UQDCDN, UQHCOD, UQOXYC, UQHMOR, UQOXYM, UQCREA, UQPH, UQSPGR, UQOXID, UQSPQ The pain panel was N/A (more content not included)... [facility] 08-06-2021 Note HNO ID: [id number] Author: RT Thiago(R) Service: ? Author Type: [...] Woo, RT(R) August 06, 2021 12:03 PM [facility] 07-11-2021 Note HNO ID: [id number] Author: Elidia Gamboa APRN.DIALYSIS CLINICAL MANAGER Service: ? Author Type: Nurse Practitioner Type: Progress Notes Filed: 07/11/2021 7:28 PM Note Text: [facility] Follow-up Visit Follow-up note July 11, 2021 [...] easy bruising/bleeding Musculoskeletal (more content not included)... [facility] 06-24-2021 Note HNO ID: [id number] Author: Sabrina Acosta MA Service: ? Author Type: Lcac Operator Type: Progress Notes Filed: 06/24/2021 2:30 PM [...] future healthcare decisions with a power of estate attorney, living will, or advance directives? Referrals: N/A Message Sent to Practice: NO Navigation Signature: Sabrina Acosta MA June 24, 2021 12:12 PM [facility] 06-24-2021 Note Patient Outreach (AM [facility]) ZIGGY MARTINALD R ([id number]) 1960 M Date Time Provider Department 06/24/21 [...] future healthcare decisions with a power of estate attorney, living will, or advance directives? 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 Author Type: Nurse Practitioner Type: Progress Notes Filed: 06/03/2021 2:14 PM Note Text: [facility] New Patient visit New Patient Consultation May [...] Hx of fall from off building from [facility]. Had imaging of the brain but states this was normal. All records are from [place]. The last time he has had follow up for his spine was with pain management in [place] many years ago. 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 Tremor [...] joint ache/pain Back/spine: (more content not included)... [facility] Diagnosis Spinal stenosis of cervical region- Primary Spinal stenosis in cervical region [facility] Diagnosis Abnormal involuntary movement- Primary Abnormal involuntary movements Spinal stenosis of cervical region Spinal stenosis in cervical region Cervicalgia documented in this encounter [facility] Summary Purpose Family History No Family [...] CONTRAST MATRL Kristopher Gómez MD [address] [place] [address] Mr Imaging Referral ID Status Reason Start Date Expiration Date V isits Requested Visits Authorized [id number] Closed Auto-Generate d Referral 08/26/2021 09/25/2022 1 1 Specialty Diagnoses / Procedures Referred By Vijaya mar Referred To Contact Diagnoses Abnormal involuntary movement Procedures CONSULT TO FUNCTIONAL MOVEMENT DISORDERS (FMD) OFFICE/OUTPATIENT [facility] MDM 60-74 MINUTES Nisa Hilario, GENETIC ENGINEER.DIALYSIS CLINICAL MANAGER [address] [place] [address] Referral ID Status Reason Start Date Expiration Date Visits Requested Visits Authorized [id number] Authorized PCP Requested Referral 01/09/2022 01/09/2023 1 [...] or prosecute any alcohol or drug abuse patient.[facility] the event this information is protected by the Federal Confidentiality of Alcohol and Drug Abuse Patient Records regulations: The Federal rules restrict any use of the information to criminally investigate or prosecute any alcohol or drug abuse patient.[facility] the event this information is protected by the Federal Confidentiality of Alcohol and Drug Abuse Patient Records regulations: The Federal rules restrict any use of the information to criminally investigate or prosecute any alcohol or drug abuse patient.[facility] the event this information is protected by the Federal Confidentiality of Alcohol and Drug Abuse Patient Records regulations: The Federal rules restrict any use of the information to criminally investigate or prosecute any alcohol or drug abuse patient.[facility] the event this information is protected by the Federal Confidentiality of Alcohol and Drug Abuse Patient Records regulations: The Federal rules restrict any use of the information to criminally investigate or prosecute any alcohol or drug abuse patient.[facility] the event this information is protected by the Federal Confidentiality of Alcohol and Drug Abuse Patient Records regulations: The Federal rules restrict any use of the information to criminally investigate or prosecute any alcohol or drug abuse patient.[facility] the event this information is protected by the Federal Confidentiality of Alcohol and Drug Abuse Patient Records regulations: The Federal rules restrict any use of the information to criminally investigate or prosecute any alcohol or drug abuse patient.[facility] the event this information is protected by the Federal Confidentiality of Alcohol and Drug Abuse Patient Records regulations: The Federal rules restrict any use of the information to criminally investigate or prosecute any alcohol or drug abuse patient.[facility] the event this information is protected by the Federal Confidentiality of Alcohol and Drug Abuse Patient Records regulations: The Federal rules restrict any use of the information to criminally investigate or prosecute any alcohol or drug abuse patient.[facility] the event this information is protected by the Federal Confidentiality of Alcohol and Drug Abuse Patient Records regulations: The Federal rules restrict any use of the information to criminally investigate or prosecute any alcohol or drug abuse patient.[facility] Reason for Visit (unrecogniz ed section and content) Reason Onset Date Comments Transition Of Care 11/11/2021 Reason Comments home health OT calling severe backpain Specialty Diagnoses / Procedures Referred By Contac t Referred To Contact MR IMAGING Diagnoses Spinal stenosis of cervical region Procedures MRI CERVICAL SPINE WO IVCON MRI SPINAL CANAL CERVICAL W/O CONTRAST MATRL Kristopher Gómez MD [address] [facility] [address] [place] [address] Mr Imaging Referral ID Status Reason Start Date Expiration Date V isits Requested Visits Authorized [id number] Closed Auto-Generate d Referral 08/26/2021 09/25/2022 1 1 Reason Comments Results MRI Cervical Spine Reason Comments Results - Mri Reason Onset Date Comments Population Health Navigation Outreach 02/24/2022 [facility] Care Teams (unrecognized sec tion and content) Water Reclamation Systems Operator Relationship Specialty Start Date End Date Estelita Dominguez MD [address] [place] [address] PCP - General Internal Medicine 10/20/13 Water Reclamation Systems Operator Relationship Specialty Start Date End Date Estelita Dominguez MD [address] [place] [address] PCP - General Internal Medicine 10/20/13 [employer] Reclamation Systems Operator Relationship Specialty Start Date End Date Estelita Dominguez MD [address] [place] [address] PCP - General Internal Medicine 10/20/13 Water Reclamation Systems Operator Relationship Specialty Start Date End Date Estelita Dominguez MD [address] [place] [address] PCP - General Internal Medicine 10/20/13 Water Reclamation Systems Operator Relationship Specialty Start Date End Date Estelita Dominguez MD [address] [place] [address] PCP - General Internal Medicine 10/20/13 Water Reclamation Systems Operator Relationship Specialty Start Date End Date Estelita Dominguez MD [address] [place] [address] PCP - General Internal Medicine 10/20/13 Water Reclamation Systems Operator Relationship Specialty Start Date End Date Estelita Dominguez MD [address] [place] [address] PCP - General Internal Medicine 10/20/13 Water Reclamation Systems Operator Relationship Specialty Start Date End Date Maci Marino MD [address] [place] [address] PCP - General Internal Medicine 02/24/22 (unrecognized sect ion and content) No Status Records FoundNo Status Records Found INFORMATION SOURCE (unrecogn ized section and content) DATE CREATED AUTHOR AUTHOR'S ORGANIZ ATION 02/25/2022 [facility] FOR RECORDS PERTAINING TO PATIENTS WHO [...] BE BASED ON THE PRIMARY CLINICAL RECORDS. [employer] provides no warranty or guarantee of the accuracy or completeness of information in this document.
== END | disposition home or self-care (01) ==
LOC: SL 20:16
PROVIDERS: PCP Internal Medicine; Visit Provider Internal Medicine
DX: G47.33 Obstructive sleep apnea (adult) (pediatric) (principal)
CPT/HCPCS: 95811

== ENCOUNTER → 2023-10-07 | Outpatient (CLI) | payer MEDICARE, SELFPAY ==
--- OUTSIDE RECORDS SUMMARY | 2023-10-07 09:40 | XMS RPT_ITS | CCD ---
Author Name Unknown Address [address] [place] [address] Organization [facility] Care Team Providers Care Cabinet Finisher Name Role Phone Angelica MITCHELL, Estelita Baez Primary Care Provider Maci Marino MD Primary Care Provider Allergies Allergy Classification Reported Allergen(s) Allergy Type Date of Onset Reaction(s) Facility (10 sources) Acetaminophen Drug Allergy 4 GI Upset, Other: See Comments [facility] (10 sources) DULoxetine Drug Allergy 1 Other: See Comments [facility] Work Phone: (10 sources) fentaNYL Drug Allergy 4 GI Upset [facility] (10 sources) gabapentin Drug Allergy 4 Vomiting [facility] Work Phone: (10 sources) Methocarbamol Drug Allergy 4 Vomiting [facility] Work Phone: (10 sources) Metoclopramide Drug Allergy 4 Mental Status Change [facility] (10 sources) traMADol Drug Allergy 2 [facility] Work Phone: Medications Current Medications Medication [...] 02-24-2022 ambulatory Sabrina Carlyn Acosta MA Na [facility] [place] Procedures Date Procedure Procedure Detail Performing Clinician Start: 01-02-2022 Mri spinal canal cer vical w/o contrast matrl Kristopher Gómez MD Work Phone: Start: 09-20-2020 Adult depression screening assessment Estelita Dominguez MD Work Phone: Plan of Treatment Date Care Activity Detail Author Start: 02-07-2026 LIPID SCREEN LIPID SCREEN [facility] Start: 05-22-2025 PROSTATE CANCER SCRE ENING DISCUSSION PROSTATE CANCER SCREENING DISCUSSION [facility] Start: 02-08-2024 DIABETES SCREEN DIABETES SCREEN [facility] Start: 10-21-2023 Urine microalbumin profile DTA P,TDAP,TD (2 - Td or Tdap) [facility] Start: 07-11-2022 BP CONTROLLED (<130/80) BP CONTROLLE D (<130/80) [facility] Start: 04-03-2022 Influenza vaccination [facility] Start: 02-08-2022 ANNUAL PCP TEAM RELATIONSHIP EXECUTIVE GLENN DISEASE VISIT ANNUAL PCP TEAM CHRONIC DISEASE VISIT [facility] Start: 02-08-2022 SHINGRIX VACCINE (1 of 2) GÓMEZ GRIX VACCINE (1 of 2) [facility] Immunizations Immunization Date Immunization Notes Care Provider Fa darnellty 10-20-2013 tetanus toxoid, redu solo diphtheria toxoid, and acellular pertussis vaccine, adsorbed Estelita Dominguez MD Work Phone: [facility] Payers Date Payer Category Payer Medicare MEDICARE MEDICAR E A AND B [id number] 2002-Present [phone] [place] [address] Medicare [id number] Social History Date Type Detail Facility Tobacco smoking stat us NHIS Ex-smoker [facility] Work Phone: Start: 07-11-2021 Alcohol intake Current non-dr milan of alcohol (finding) [facility] Start: 02-08-2021 History SDOH Alcohol Frequency 1 [facility] Start: 02-08-2021 History SDOH Alcohol Std Drinks 98 [facility] Start: 02-08-2021 History SDOH Social Connections Get Together 2 [facility] Start: 02-08-2021 History SDOH Social Connections [employer] 3 [facility] Start: 02-08-2021 History SDOH Financial 4 [facility] Start: 02-08-2021 Education 14 [facility] Start: 04-25-2014 Tobacco Comment quit 1980 [facility] Start: 1960 Sex Assigned At Not on file [facility] Start: 12-23-2021 End: 01-08-2022 Exposure to SARS-CoV-2 (event) Not sure [facility] Clinical Notes 05-30-2021 to 02-24-2022 Sabrina Acosta MA - 02/24/2022 9:37 AM EDTDakira Hilario APRN.CODI - 01/09/2022 10:59 AM EDTTelephone Encounter - Saba Ny RN - 01/03/2022 2:51 PM EDT Note Date & Type Note Facility 02-24-2022 Note Patient Outreach (AZUCENA NARAYANAV) OLGA MARTIN ([id number]) 1960 M Date Time Provider Department 02/24/22 [...] OF GAIT [R26.9] 01/18/2002 LUMBOSACRAL NEURITIS NOS [[id number]] 01/18/2002 LUMB/LUMBOSAC DISC DEGEN [M51.37] 01/18/2002 POSTLAMINECT SYND-LUMBAR [M96.1] 01/18/2002 GERD (gastroesophageal reflux disease) [K21.9] 10/20/2013 Cluster headaches [G44.009] 12/14/2013 History of ventral hernia repair [Z98.890, Z87.*08/13/2016 Essential hypertension [I10] 09/08/2016 Acute pancreatitis [K85.90] 08/19/2018 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 Author Type: Catering Associate Type: Progress Notes Filed: 02/24/2022 12:39 PM [...] Acosta MA February 24, 2022 9:37 AM [facility] 02-24-2022 History of Presen t illness [...] 2022 9:37 AM documented in this encounter [facility] 01-09-2022 Note HNO ID: [id number] Author: Nisa Hilario APRN.POULTRY OFFAL WORKER Service: ? Author Type: Nurse Practitioner Type: Progress Notes Filed: 01/10/2022 12:46 PM Note Text: SUBJECTIVE: Olga Martin presents to [facility] for a [...] frustrated. Patient reports he was admitted to [facility] for appendicitis with perforation in Sep 2021, he developed a wound infection and was dealing with that for several months. This caused a delay in follow up visits He struggles with transportation issues and lives in [place]. Patient has a history of spinal fracture [...] activity was identified. 01/09/2022 by Nisa Hilario APRN.POULTRY OFFAL WORKER Narcotic Agreement reviewed and signed?: N/A on January 09, 2022 The pain panel was N/A PLAN: Injection history was reviewed. Medication use and compliance were reviewed. 1. Continue medication management through the patient's current prescribing physician 2. No (more content not included)... [facility] 01-09-2022 History of Presen t illness Narrative SUBJECTIVE: Olga Martin presents to [facility] Department for a follow [...] frustrated. Patient reports he was admitted to [facility] for appendicitis with perforation in Sep 2021, he developed a wound infection and was dealing with that for several months. This caused a delay in follow up visits He struggles with transportation issues and lives in [place]. Patient has a history of spinal fracture [...] which included preparing to see the patient, [id number] patient care, completing clinical documentation, performing a medically appropriate examination and ordering medications, tests, or procedures. The above plan and management options were discussed at length with patient. Patient is in agreement with the above and verbalized understanding. Nisa Hilario APRN, CODI January 09, 2022 documented in this encounter [facility] 06-03-2022 Miscellaneous Notes Results sent via [email or web address] message at this time Injection order signed [...] extremity radicular symptom documented in this encounter [facility] 01-02-2022 Nurse Note MRI PROCEDURE NOTE [...] TIME: 12:26 PM documented in this encounter [facility] 11-14-2021 Miscellaneous Notes Per other encounter [...] at the Continuity of Care document from [facility] on 11/04/21 there was an X-ray [...] and advise. Thank you. LESLEE Ramirez Check [facility] records to see if this was addressed. If severe symptoms presently then recommend ER visit to evaluate and treat Moriah from [facility] Home Health OT calling she was at patient home to do OT eval one time visit. Patient was having so much lumbar area back pain rated at 10 out of a 10, could hardly get out out of bed. . Patient had told her he had fallen in bathroom while he was in the hospital. Patient said he has to get a plant worker on his back pain before he can do anything. She is not aware of him taking any medications for his back pain. documented in this encounter [facility] 11-12-2021 Note HNO ID: [id number] Author: Kera Almanzar LPN Service: ? Author Type: ? Type: Progress Notes Filed: 11/13/2021 8:36 AM Note Text: Message left again for return call to complete TCM note and arrange hospital follow up. [facility] 11-12-2021 History of Presen t illness Narrative Message left again for return call to complete TCM note and arrange hospital follow up. Message left for pt to return call to a nurse to complete TCM note and arrange hospital follow up with pcpc's [employer] PLANT MANAGER. documented in this encounter [facility] 11-11-2021 Note HNO ID: [id number] Author: Kera Almanzar LPN Service: ? Author Type: ? Type: Progress Notes Filed: 11/13/2021 8:36 AM Note Text: Message left for pt to return call to a nurse to complete TCM note and arrange hospital follow up with pcpc's [employer] POWER PLANT MANAGER. [facility] 11-11-2021 Note Patient Outreach (IN TMWS) OLGA MARTIN ([id number]) 1960 M Date Time Provider Department 11/11/21 ESTELITA DOMINGUEZ INTMWS During your visit today, we recorded the following information about you: Kera Almanzar NINA 11/13/2021 8:36 AM Signed Message left for pt to return call to a nurse to complete TCM note and arrange hospital follow up with pcpc's [employer] POWER PLANT MANAGER. 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 Lita Esquivel LPN Ruthy notified, will follow-up to see if f/u is scheduled after discharge date Will follow along with HH Make sure he gets a follow up appointment Ruthy from [facility] Home Health calling received orders for senior living, PT/OT. Patient is discharging from TCU on 11/09 he had appe with preformation and abscess surgery done by Dr Taveras. Asking if PCP would follow patient and sign orders? Please advise documented in this encounter [facility] 09-13-2021 Note Patient Outreach ([facility]) OLGA MARTIN ([id number]) 1960 M Date Time Provider Department 09/13/21 [...] my direct line. Will also send a [employer] message. 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 Author Type: Catering Associate Type: Progress Notes Filed: 09/13/2021 9:44 AM [...] my direct line. Will also send a [employer] message. Pt identified by name and : NO Outreach Outcome/Action Unable to reach patient: Left message [employer] message sent Reason for Outreach Care Gap [...] Woo MA September 13, 2021 9:40 AM [facility] 08-26-2021 Note HNO ID: [id number] Author: Kristopher Gómez MD Service: ? Author [...] Panel: No results found for: UQCANN, UQBNZL, CJG2NNS, UQAMPH, UQMAMP, UQBUPRE, UQNORBUP, UQMTHD, UQEDDP, UQTRAM, UQDTRM, UQFNTL, UQNFTL, UQCODE, UQMORP, UQDCDN, UQHCOD, UQOXYC, UQHMOR, UQOXYM, UQCREA, UQPH, UQSPGR, UQOXID, UQSPQ The pain panel was N/A (more content not included)... [facility] 08-06-2021 Note HNO ID: [id number] Author: RT Thiago(R) Service: ? Author Type: [...] Woo, RT(R) August 06, 2021 12:03 PM [facility] 07-11-2021 Note HNO ID: [id number] Author: Elidia Gamboa APRN.POULTRY OFFAL WORKER Service: ? Author Type: Nurse Practitioner Type: Progress Notes Filed: 07/11/2021 7:28 PM Note Text: [facility] [place] Follow-up Visit Follow-up note July 11, 2021 [...] easy bruising/bleeding Musculoskeletal (more content not included)... [facility] 06-24-2021 Note HNO ID: [id number] Author: Sabrina Acosta MA Service: ? Author Type: Catering Associate Type: Progress Notes Filed: 06/24/2021 2:30 PM [...] future healthcare decisions with a power of litigation attorney associate, living will, or advance directives? Referrals: N/A Message Sent to Practice: NO Navigation Signature: Sabrina Acosta MA June 24, 2021 12:12 PM [facility] 06-24-2021 Note Patient Outreach (AM [facility]) ZIGGY MARTINALD R ([id number]) 1960 M Date Time Provider Department 06/24/21 [...] future healthcare decisions with a power of litigation attorney associate, living will, or advance directives? 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 Author Type: Nurse Practitioner Type: Progress Notes Filed: 06/03/2021 2:14 PM Note Text: [facility] [place] New Patient visit New Patient Consultation May [...] Hx of fall from off building from [facility]. Had imaging of the brain but states this was normal. All records are from [place]. The last time he has had follow up for his spine was with pain management in [place] many years ago. 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 Tremor [...] joint ache/pain Back/spine: (more content not included)... [facility] Diagnosis Spinal stenosis of cervical region- Primary Spinal stenosis in cervical region [facility] Diagnosis Abnormal involuntary movement- Primary Abnormal involuntary movements Spinal stenosis of cervical region Spinal stenosis in cervical region Cervicalgia documented in this encounter [facility] Summary Purpose Family History No Family [...] CONTRAST MATRL Kristopher Gómez MD [address] [facility] [place] [address] Mr Imaging Referral ID Status Reason Start Date Expiration Date V isits Requested Visits Authorized [id number] Closed Auto-Generate d Referral 08/26/2021 09/25/2022 1 1 Specialty Diagnoses / Procedures Referred By Vijaya mar Referred To Contact Diagnoses Abnormal involuntary movement Procedures CONSULT TO FUNCTIONAL MOVEMENT DISORDERS (FMD) OFFICE/OUTPATIENT [facility] MDM 60-74 MINUTES Nisa Hilario, WATCH ADJUSTER.POULTRY OFFAL WORKER [address] [place] [address] Referral ID Status Reason Start Date Expiration Date Visits Requested Visits Authorized [id number] Authorized PCP Requested Referral 01/09/2022 01/09/2023 1 [...] or prosecute any alcohol or drug abuse patient.[facility] the event this information is protected by the Federal Confidentiality of Alcohol and Drug Abuse Patient Records regulations: The Federal rules restrict any use of the information to criminally investigate or prosecute any alcohol or drug abuse patient.[facility] the event this information is protected by the Federal Confidentiality of Alcohol and Drug Abuse Patient Records regulations: The Federal rules restrict any use of the information to criminally investigate or prosecute any alcohol or drug abuse patient.[facility] the event this information is protected by the Federal Confidentiality of Alcohol and Drug Abuse Patient Records regulations: The Federal rules restrict any use of the information to criminally investigate or prosecute any alcohol or drug abuse patient.[facility] the event this information is protected by the Federal Confidentiality of Alcohol and Drug Abuse Patient Records regulations: The Federal rules restrict any use of the information to criminally investigate or prosecute any alcohol or drug abuse patient.[facility] the event this information is protected by the Federal Confidentiality of Alcohol and Drug Abuse Patient Records regulations: The Federal rules restrict any use of the information to criminally investigate or prosecute any alcohol or drug abuse patient.[facility] the event this information is protected by the Federal Confidentiality of Alcohol and Drug Abuse Patient Records regulations: The Federal rules restrict any use of the information to criminally investigate or prosecute any alcohol or drug abuse patient.[facility] the event this information is protected by the Federal Confidentiality of Alcohol and Drug Abuse Patient Records regulations: The Federal rules restrict any use of the information to criminally investigate or prosecute any alcohol or drug abuse patient.[facility] the event this information is protected by the Federal Confidentiality of Alcohol and Drug Abuse Patient Records regulations: The Federal rules restrict any use of the information to criminally investigate or prosecute any alcohol or drug abuse patient.[facility] Hospital[facility] the event this information is protected by the Federal Confidentiality of Alcohol and Drug Abuse Patient Records regulations: The Federal rules restrict any use of the information to criminally investigate or prosecute any alcohol or drug abuse patient.[facility] Reason for Visit (unrecogniz ed section and content) Reason Onset Date Comments Transition Of Care 11/11/2021 Reason Comments home health OT calling severe backpain Specialty Diagnoses / Procedures Referred By Contac t Referred To Contact MR IMAGING Diagnoses Spinal stenosis of cervical region Procedures MRI CERVICAL SPINE WO IVCON MRI SPINAL CANAL CERVICAL W/O CONTRAST MATRL Kristopher Gómez MD [address] [facility] [place] [address] Mr Imaging Referral ID Status Reason Start Date Expiration Date V isits Requested Visits Authorized [id number] Closed Auto-Generate d Referral 08/26/2021 09/25/2022 1 1 Reason Comments Results MRI Cervical Spine Reason Comments Results - Mri Reason Onset Date Comments Population Health Navigation Outreach 02/24/[address] [facility] Care Teams (unrecognized sec tion and content) Cabinet Finisher Relationship Specialty Start Date End Date Estelita Dominguez MD [address] [place] [address] PCP - General Internal Medicine 10/20/13 Cabinet Finisher Relationship Specialty Start Date End Date Estelita Dominguez MD [address] [place] [address] PCP - General Internal Medicine 10/20/13 Cabinet Finisher Relationship Specialty Start Date End Date Estelita Dominguez MD [address] [place] [address] PCP - General Internal Medicine 10/20/13 Cabinet Finisher Relationship Specialty Start Date End Date Estelita Dominguez MD [address] [place] [address] PCP - General Internal Medicine 10/20/13 Cabinet Finisher Relationship Specialty Start Date End Date Estelita Dominguez MD [address] [place] [address] PCP - General Internal Medicine 10/20/13 Cabinet Finisher Relationship Specialty Start Date End Date Estelita Dominguez MD [address] [place] [address] PCP - General Internal Medicine 10/20/13 Cabinet Finisher Relationship Specialty Start Date End Date Estelita Dominguez MD [address] [place] [address] PCP - General Internal Medicine 10/20/13 Cabinet Finisher Relationship Specialty Start Date End Date Maci Marino MD [address] [place] [address] PCP - General Internal Medicine 02/24/22 (unrecognized sect ion and content) No Status Records FoundNo Status Records Found INFORMATION SOURCE (unrecogn ized section and content) DATE CREATED AUTHOR AUTHOR'S ORGANIZ ATION 02/25/2022 [facility] FOR RECORDS PERTAINING TO PATIENTS WHO [...] BE BASED ON THE PRIMARY CLINICAL RECORDS. [employer] provides no warranty or guarantee of the accuracy or completeness of information in this document.
== END | disposition home or self-care (01) ==
LOC: SL 09:18
PROVIDERS: PCP Internal Medicine; Visit Provider Nurse Practitioner Acute Care
DX: Z00.00 Encounter for general adult medical examination without abnormal findings (principal)

== ENCOUNTER → 2024-04-14 | Outpatient (CLI) | payer MEDICARE, SELFPAY ==
--- NOTE | 2024-04-14 13:22 | CT_ITS ---
STUDY: LOW DOSE CT LUNG CANCER SCREENING REASON FOR EXAM: Male, 63 years old. Former smoker, quit in 1980, smoked one half pack per day x12 years RADIATION DOSAGE (If Supplied By Facility): CTDIvol = ( 4.02 ) mGy, DLP = ( 140.94 ) mGycm TECHNIQUE: No contrast was administered. Low dose technique was utilized (average mAS-38 and kVp 120). 1.25 mm axial source images with a slice interval of 1.25-mm were reconstructed in lung windows. 2.5 mm axial source images with a slice interval of 2.5-mm were reconstructed in lung windows. 5.0 mm axial source images with a slice interval of 5.0-mm were reconstructed in soft tissue windows. COMPARISON: 04/26/2014 FINDINGS: The lung windows show underlying emphysema with bleb formation in both lung fajardo. There is nonspecific pleural thickening in both apices and in both hemithoraces. There is no organized infiltrate, effusion, or suspicious noncalcified mass or nodule. There is compressive atelectasis in the left lung base due to chronic elevation of the left hemidiaphragm. The limited soft tissue windows show normal-appearing thyroid gland. No suspicious adenopathy. There are are calcified coronary vessels. The thoracic aorta tapers normally. Limited cuts through the upper abdomen and incompletely and poorly visualized possible lesion in the upper pole the right kidney. Further evaluation of the right kidney with ultrasound or with cross-sectional imaging is recommended. Bony structures show degenerative change CT/Low Dose CT Lung Screening IMPRESSION: Lung-RADS category 2 - Continue annual screening with LDCT in 12 months. IMPORTANT NOTES FOR USE: ACR Lung-RADS Version 1.1 Assessment Categories Release Date: 2018 Category: Coded 0-4 bases on nodule(s) with highest degree of suspicion. Negative screen is defined as categories 1 and 2; a positive screen is defined as categories 3 and 4. Category 3 and 4A nodules that are unchanged on interval CT should be coded as category 2, and individuals returned to screening in 12 months. Category 4X: Category 3 or 4 nodules with additional imaging findings that increase the suspicion of lung cancer, such as spiculation, GGN that doubles in size in 1 year, enlarged lymph notes, etc. Category Modifiers: S (significant finding unrelated to lung cancer) Electronically Signed: Js Bliss MD at 14:46 EDT ,
== END | disposition home or self-care (01) ==
PROVIDERS: PCP Internal Medicine; Referring Provider Nurse Practitioner Acute Care; Visit Provider Nurse Practitioner Acute Care
DX: F17.210 Nicotine dependence, cigarettes, uncomplicated (principal)
CPT/HCPCS: 71271

== ENCOUNTER → 2024-04-28 | Outpatient (CLI) | payer MEDICARE, SELFPAY ==
[2024-04-28 08:49] LABS: Absolute Lymphocyte Count 1.64 X10^3/uL (0.83-4.51); Absolute Neutrophil Count 5.3 X10^3/uL (2.0-7.7); Basophil# 0.06 X10^3/uL; Basophil% 0.8 % (0-1); Eosinophil# 0.01 X10^3/uL; Eosinophils% 0.1 % (0-5); Hematocrit 44.5 % (40-54); Hemoglobin 15.1 g/dL (13.0-16.5); Lymphocyte # 1.64 X10^3/ul (0.83-4.51); Lymphocyte % 21.7 % (19-41); Mean Corp Hgb Conc 33.9 g/dL (32-36); Mean Corpuscular Hgb 32.5 pg (27.0-32.0); Mean Corpuscular Volume 95.9 fL (80-94); Monocyte% 6.6 % (0-10); NRBC Flagged by Analyzer 0 % (0-5); Neutrophil # 5.34 X10^3/uL (2.7-7.7); Neutrophil % 70.5 % (47-70); Platelet Count 265 K/mm3 (150-450); RBC Distribution Width CV 12.2 % (11.6-14.6); RBC Distribution Width SD 43.2 fl (35.1-43.9); Red Blood Count 4.64 M/mm3 (4.6-6.2); White Blood Count 7.6 K/mm3 (4.4-11.0)
[2024-04-28 09:32] LABS: ALB/GLOB Ratio 1.1 RATIO (0.9-2.4); AST(SGOT) 22 U/L (15-37); Alanine Aminotransfer ALT/SGPT 21 U/L (16-61); Alkaline Phosphatase 75 U/L (45-117); Anion Gap 5 (5-15); BUN 11 mg/dL (7-18); Calcium,Total 9.1 mg/dL (8.5-10.1); Chloride 107 mmol/L (98-107); Creatinine, Serum 0.78 mg/dL (0.70-1.30); EST Glomerular Filtration Rate 106 mL/min (>60); Est Glom Filt Rate - Afr Amer 128 mL/min (>60); Globulin 3.5 g/dL (2.2-4.2); Glucose 101 mg/dL (74-106); Potassium 4.2 mmol/L (3.5-5.1); Protein, Total 7.5 g/dL (6.4-8.2); Sodium Level 140 mmol/L (136-145); Thyroid Stim Hormone (TSH) 0.966 uIU/mL (0.358-3.740)
[2024-04-29 04:07] LABS: DHEA Sulfate 68.3 ug/dL (48.9-344.2)
== END | disposition home or self-care (01) ==
LOC: LAB 08:12
PROVIDERS: PCP Internal Medicine; Referring Provider Physician Assistant; Visit Provider Physician Assistant
DX: D49.7 Neoplasm of unspecified behavior of endocrine glands and other parts of nervous system (principal); G25.0 Essential tremor
CPT/HCPCS: 36415; 80053; 82533; 82627; 84443; 85025; 82626

== ENCOUNTER → 2024-04-29 | Outpatient (CLI) | payer MEDICARE, SELFPAY ==
[2024-04-30 15:08] LABS: Adrenocorticotropic Hormone 6.6 pg/mL (7.2-63.3)
== END | disposition home or self-care (01) ==
LOC: LAB 07:57
PROVIDERS: PCP Internal Medicine; Referring Provider Physician Assistant; Visit Provider Physician Assistant
DX: D49.7 Neoplasm of unspecified behavior of endocrine glands and other parts of nervous system (principal)
CPT/HCPCS: 36415; 82024

== ENCOUNTER → 2024-05-18 | Outpatient (CLI) | payer MEDICARE, SELFPAY ==
--- NOTE | 2024-05-18 13:48 | CT_ITS ---
STUDY: CT Abdomen WO/W Contrast Injection 05/19/2024 6:19 PM REASON FOR EXAM: Male, 63 years old. adrenal tumor -- adrenal protocol Individualized dose optimization techniques were used for this CT. COMPARISON: 09.20.21 TECHNIQUE: CT Abdomen WO/W Contrast Injection IV 100mL Isovue-300 FINDINGS: There are atherosclerotic calcifications of visualized coronary arteries. The visualized portions of the heart are within normal limits. Normal liver. Normal gallbladder and extrahepatic biliary system. Normal spleen. Normal pancreas. 21 mm right adrenal gland mass. -6.3 HU. This does measure the density of an adenoma. Precontrast: HU -6.3 Post contrast: HU -6.47 Delayed contrast: HU -4.6 Absolute Washout:950.0% Absolute washout of 60% or higher is consistent with an adenoma. Relative Washout:29.2% Relative washout less than 40% is indeterminate. However, the low pre-contrast attenuation is suggestive of an adenoma. There are hypodensities in the right kidney. These are consistent for cysts. No follow up required. Non obstructive 4.6mm left renal parenchymal stones. There are hypodensities in the left kidney. These are consistent for cysts. No follow up required. Non obstructive 2 mm right renal parenchymal stones. Normal visualized stomach. Normal small intestine. Stool throughout the colon. There is non-visualization of the appendix. There are calcifications of the abdominal aorta. This is consistent for atherosclerotic disease. There is NO abdominal aortic aneurysm. Vascular workup can be obtained based on clinical correlation. Normal inferior vena cava. Subcentimeter mesenteric lymph nodes. Mid lumbar spine compression deformity spinal fixation hardware stabilizing this area. Normal abdominal wall. There are diffuse degenerative changes of the visualized lumbar spine. CT/Abdomen W/WO IV Contrast IMPRESSION: (NOT LISTED IN ORDER OF SIGNIFICANCE) Adrenal gland H and suggest that the right adrenal mass is consistent with an adrenal adenoma. Other findings as above. Electronically Signed: Tam Riddle MD at 18:26 EDT ,
== END | disposition home or self-care (01) ==
LOC: CT 13:43
PROVIDERS: PCP Internal Medicine; Referring Provider Physician Assistant; Visit Provider Physician Assistant
DX: D49.7 Neoplasm of unspecified behavior of endocrine glands and other parts of nervous system (principal)
CPT/HCPCS: 74170; Q9967

== ENCOUNTER 2024-07-31 09:59 | Emergency (ER) | payer MEDICARE, SELFPAY ==
[2024-07-31 10:00] VITALS: BP 155/97; PULSE 114; RESP 24; TEMP 36.9; O2SAT 99
--- NOTE | 2024-07-31 10:13 | EDS_ITS ---
HPI History of Present Illness Chief Complaint: Neuro S/Sx [facility] Medical History Cellulitis of left lower leg Anxiety Alcohol use Marijuana use Ambulates with cane Hepatitis Injury of head and neck Syncope Former smoker Shortness of breath on exertion Neuropathy Tremor Foot drop History of stress test Hypertension Cristela Monahan virus positive mononucleosis syndrome High calcium levels Cluster headaches GERD (gastroesophageal reflux disease) PTSD (post-traumatic stress disorder) Adrenal disorder Draining postoperative wound Perforation of small intestine Back pain due to injury Chronic pain Pancreatitis neck/back pain Limb weakness Difficulty balancing MRSA (methicillin resistant staph aureus) culture positive Anemia Shoulder pain Arthritis Acute pancreatitis Home Medications ?Medication ?Instructions ?Recorded ?Last Taken ?Type dexamethasone 1 mg tablet 1 mg PO QDAY #1 TAB 04/22/24 Unknown Rx amlodipine 5 mg tablet (Norvasc) 5 mg PO DAILY #60 tabs 07/31/24 Unknown Rx propranolol 60 mg capsule,24 60 mg PO DAILY 07/31/24 Unknown History hr,extended release Allergy/AdvReac Type Severity Reaction Status Date / Time hydroxyzine (From Vistaril) Allergy Severe Vomiting Verified 04/22/24 10:55 niacin Allergy Severe Vomiting Verified 04/22/24 10:55 carbidopa (From Sinemet) Allergy Mild Abd Verified 04/22/24 10:55 cramps/diarrhea levodopa (From Sinemet) Allergy Mild Abd Verified 04/22/24 10:55 cramps/diarrhea acetaminophen AdvReac Severe Nausea/Vom/ Verified 04/22/24 10:55 Diarrhea fentanyl (From Duragesic) AdvReac Severe Nausea/Vom/ Verified 04/22/24 10:55 Diarrhea metoclopramide HCl (From AdvReac anxiety Verified 04/22/24 10:55 Reglan) nabumetone (From Relafen) AdvReac Nausea/Vom/ Verified 04/22/24 10:55 Diarrhea Family History Father Cancer ? 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 Smoking Status: Former smoker Tobacco: How many years used: 20 Smokeless tobacco user: other alcohol intake: former substance use type: does not use do you feel safe at home: Yes EXAM Physical Exam Const Vital Signs: 07/31/24 10:00 07/31/24 10:19 07/31/24 11:41 Temperature 98.4 F 98.5 F Temperature Source Temporal Oral Pulse Rate 114 H 92 75 Respiratory Rate 24 H 24 H 22 H Blood Pressure 155/97 H 141/84 H 141/88 H Blood Pressure Mean 116 103 105 Pulse Ox 99 95 93 Oxygen Delivery Method Room Air Room Air Room Air 07/31/24 13:05 Temperature Temperature Source Pulse Rate 69 Respiratory Rate 20 H Blood Pressure 130/85 H Blood Pressure Mean 100 Pulse Ox 93 Oxygen Delivery Method Room Air MDM MDM MDM Narrative Medical decision making narrative: HISTORY OF PRESENT ILLNESS: 63-year-old male presents with tremors for 1 year. States he has history of Parkinson's disease. States he started medicines have not helped. Also notes elevated blood pressure despite taking home propranolol. Patient endorses recent chest congestion as well. Denies chest pain. Denies leg swelling. The patient denies recent surgery in the last 4 weeks or immobilization in the last 3 days, denies previous diagnosis of DVT or PE, hemoptysis, unilateral leg swe lling or malignancy with treatment the last 6 months or palliative. No estrogen use noted. Denies fever/ chills but does note chronic cough. Denies sick contacts. Denies any bleeding diathesis. No syncope. No focal weakness loss of sensation or slurred speech. REVIEW OF SYSTEMS: Pertinent positives: Tremor, chest congestion Pertinent negatives: Chest pain, shortness of breath PHYSICAL EXAM: Nursing triage notes reviewed, Vital signs reviewed Constitutional: please see mdm HENT: MMM Eyes: Pupils equal round and reactive to light, Extraocular muscles intact Neck: No stridor, no JVD, full neck ROM Lungs: Clear to auscultation, No wheezing or rales. No increased work of breathing, no conversational dyspnea, no accessory muscle use, no nasal flaring. No respiratory distress noted Heart: Regular rate and rhythm, No murmurs, No rubs and No gallops, 2+ distal pulses (radial, femoral, posterior tibial) in all extremities Abdomen: Soft, there is no tenderness, rigidity, rebound or guarding, no obvious peritoneal signs, no palpable pulsatile abdominal masses, no auscultated abdominal bruit : No CVAT Extremities: No edema Neuro: Alert and oriented x3, pill-rolling tremor noted at baseline) neuro exam at baseline, cranial nerves II through XII are intact. No pain with extraocular muscle movement. There is negative test of skew. 5 of 5 strength in upper and lower extremities in flexion extension. Intact sensation to light touch in upper and lower extremity dermatomes. No truncal or extremity ataxia. No dysdiadochokinesia. Normal gait. 2+ reflexes in upper and lower extremities. No meningeal signs. Negative Babinski. NIH of 0. Skin: No rash or lesions noted MEDICAL DECISION MAKING: Chief Complaint: Tremor, chest congestion External records reviewed: Reviewed MRI of the brain from 2021 which showed chronic involutional changes, no hemorrhage, no acute infarct Factors affecting care: n debility, trauma, neuropathy, GERD, PTSD hypertension, Social determinants of health: Tobacco abuse History obtained from others: none Consults: none [facility] Narrative: Patient was initially tachycardic with a heart rate of 114, tachypneic with respiratory rate of 24. Initial neurologic exam showed a resting pill-rolling tremor. I considered the following differential diagnosis: ICH, CVA, ACS, arrhythmia, COVID, flu, pneumonia, electrolyte disturbance Clinical exam not consistent with acute CVA. I obtained a broad lab and imaging workup to further elucidate the etiology of the patient's complaints and to rule out any endorgan dysfunction from the patient's report of elevated blood pressure. ALL IMAGES (IF OBTAINED) HAVE BEEN PERSONALLY REVIEWED AND INTERPRETED BY MYSELF. EKG with normal sinus rhythm, normal axis, QTc 448, right bundle branch block, no STEMI\ CT scan of the head showed no evidence of bleed or mass I have personally reviewed the patient's chest x-ray. Chest x-ray is unremarkable for pulmonary edema, pneumothorax, pneumonia or focal cardiopulmonary abnormality. BMP without evidence of significant electrolyte abnormalities, no anion gap, no acute kidney injury. High-sensitivity troponin is negative, no evidence of myocardial ischemia COVID/flu/RSV negative Upon reevaluation blood pressure improved after Norvasc to 141/88, heart rate improved to 75, respiratory rate improved to 20. The synthesis of the patient's history, physical exam, labs images suggest no acute life-limiting etiology. I suspect his tremor is related to his underlying Parkinson's disease. Encouraged outpatient neurology follow-up. I suspect his elevated blood pressure is in need of outpatient titration. I suspect his congestion related to viral URI. The patient and/or family, caregivers express understanding. The patient and/or family, caregivers agrees with the plan. Shared decision making: I will have a discussion with the patient and or visitors regarding risk/benefits of further testing or admission. They will be made aware of of the risk/benefits inherent in this decision they will be given the opportunity to voice understanding. Total critical care time today provided was at least 0 minutes. This excludes separately billable procedures. Critical care time (if documented) is secondary to the patient having high probability of clinically significant/life threatening deterioration in the patient's condition which required my urgent intervention. Impression: 1. Trauma 2. History of Parkinson's disease 3. Elevated blood pressure 4. Viral URI Dispo: Discharge home This note was generated with [employer] dictation software. It may contain incorrect words, spelling, and punctuation that were not noted in review of the chart prior to signing. Lab Data Labs: Laboratory Results - last 24 hr 07/31/24 10:19 WBC 5.9 RBC 4.49 L Hgb 14.9 Hct 43.3 MCV 96.4 H MCH 33.2 H MCHC 34.4 RDW Std Deviation 44.2 H RDW Coeff of Ar 12.4 Plt Count 233 MPV 11.0 Sodium 139 Potassium 4.5 Chloride 105 Carbon Dioxide 29.0 Anion Gap 5 BUN 9 Creatinine 0.73 Estim Creat Clear Calc 125.51 Est GFR (MDRD) Af Amer 138 Est GFR (MDRD) Non-Af 114 BUN/Creatinine Ratio 12.3 Glucose 88 Calcium 9.3 Troponin I High Sens 10 Radiography Diagnostic Testing: Clinical Impression(s) from Imaging Studies Brain CT 07/31/24 10:52 IMPRESSION: No acute intracranial process. Electronically Signed: Kelsea Buenrostro MD at 12:02 EST , Chest X-Ray 07/31/24 11:20 IMPRESSION: No radiographic evidence of acute cardiopulmonary disease. Electronically Signed: Kelsea Buenrostro MD at 11:40 EST , Discharge Plan Triage Chief Complaint: Neuro S/Sx ED Provider: Baljit Fleming Dx/Rx/DC Orders Clinical Impression: Tremor, Elevated blood pressure reading Instructions: Essential Tremor (ET) Prescriptions: New amlodipine [Norvasc] 5 mg tablet 5 mg PO DAILY Qty: 60 0RF No Action dexamethasone 1 mg tablet 1 mg PO QDAY Qty: 1 0RF Rx Instructions: to be take at 11 pm the night before labs drawn propranolol 60 mg capsule,extended release 24 hr 60 mg PO DAILY Primary Care Provider: Aleshia Marino Referrals: Aleshia Marino MD [Primary Care Provider] - Von Landry MD [Non-Staff] - Activity Restrictions/Additional Instructions: Thank you for trusting us with your care today! Your labs images were reassuring. For sleep I recommend [id number] Benadryl and melatonin. Please return to the emergency department if your symptoms change or worsen. Please follow with your Primary care physician and neurology (Dr. Landry) for further outpatient evaluation and management. Print Language: Kiswahili Disposition Disposition: Home, Self Care Discharge Date/Time: 07/31/24 13:05
[2024-07-31 10:18] VITALS: BMI 27.6
[2024-07-31 10:19] VITALS: BP 141/84; PULSE 92; RESP 24; O2SAT 95; BMI 27.6
--- NOTE | 2024-07-31 10:52 | EKG12_ITS ---
Test Reason : Blood Pressure : */* mmHG Vent. Rate : 82 BPM Atrial Rate : 82 BPM P-R Int : 160 ms QRS Dur : 146 ms QT Int : 384 ms P-R-T Axes : 22 10 73 degrees QTcB Int : 448 ms Normal sinus rhythm Non-specific intra-ventricular conduction block T wave abnormality, consider anterolateral ischemia Abnormal ECG Confirmed by TESS MITCHELL, JOSE ([id number]), newspaper copy editor SHAHIDA ESCOBAR ([id number]) on 08/01/2024 10:48:37 AM Referred By: Confirmed By: JOSE PULIDO MD
--- NOTE | 2024-07-31 10:52 | CT_ITS ---
INDICATION: tremor EXAMINATION: CT BRAIN - CT Head or Brain W/O Contrast Injection TECHNIQUE: Multiple axial images were obtained of the head without intravenous contrast. The protocol utilizes one or more of the following dose reduction techniques: automated exposure control, adjustment of mA and/or kV according to patient size,and/or use of iterative reconstruction technique. IV Contrast dosage and agent: None. RADIATION DOSAGE (If Supplied By Facility): CTDIvol = ( 18.81 ) mGy, DLP = ( 694.01 ) mGycm COMPARISON: MRI dated January 31, [address] dated December 13, 2013 FINDINGS: BRAIN PARENCHYMA: No intra- or extra-axial hemorrhage. No evidence of acute infarct. No intracranial mass or mass effect. There is preservation of the edward/white matter interface. Posterior fossa structures are unremarkable. CSF SPACES: Appropriate for age. No hydrocephalus. Basal cisterns are patent. CALVARIUM, SKULL BASE, PARANASAL SINUSES AND MASTOID AIR CELLS: There are round low-attenuation foci within the maxillary sinuses consistent with mucous retention cysts or polyps. No discrete lytic or blastic abnormalities. ORBITS: Both globes, extraocular muscles, optic nerves and retrobulbar fat appear unremarkable. ASPECTS Score for Acute Strokes: 10 CT/Brain/Head without Contrast IMPRESSION: No acute intracranial process. Electronically Signed: Kelsea Buenrostro MD at 12:02 EST ,
[2024-07-31] MEDS: amLODIPine 5 MG Tablet PO (10:58)
[2024-07-31] MEDS: LORazepam 2 MG/ML Syringe 1 MG IV (10:59)
[2024-07-31 11:09] LABS: Hematocrit 43.3 % (40-54); Hemoglobin 14.9 g/dL (13.0-16.5); Mean Corp Hgb Conc 34.4 g/dL (32-36); Mean Corpuscular Hgb 33.2 pg (27.0-32.0); Mean Corpuscular Volume 96.4 fL (80-94); Platelet Count 233 K/mm3 (150-450); RBC Distribution Width CV 12.4 % (11.6-14.6); RBC Distribution Width SD 44.2 fl (35.1-43.9); Red Blood Count 4.49 M/mm3 (4.6-6.2); White Blood Count 5.9 K/mm3 (4.4-11.0)
--- NOTE | 2024-07-31 11:20 | RAD_ITS ---
INDICATION: cough, chest congestion EXAMINATION/TECHNIQUE: X-RAY - XR Chest 1 View COMPARISON: October 26, 2021 FINDINGS: LINES/DEVICES: None. LUNGS: No new consolidation, edema or effusion. No pneumothorax. MEDIASTINUM AND CARDIOVASCULAR STRUCTURES: Cardiac silhouette not enlarged. Central airways and mediastinal contour are unremarkable. BONES AND SOFT TISSUES: Unremarkable. RAD/Chest 1 View (Portable) IMPRESSION: No radiographic evidence of acute cardiopulmonary disease. Electronically Signed: Kelsea Buenrostro MD at 11:40 EST ,
[2024-07-31 11:33] LABS: Anion Gap 5 (5-15); BUN 9 mg/dL (7-18); BUN/Creat Ratio 12.3 RATIO (10-20); Calcium,Total 9.3 mg/dL (8.5-10.1); Chloride 105 mmol/L (98-107); Creatinine, Serum 0.73 mg/dL (0.70-1.30); EST Glomerular Filtration Rate 114 mL/min (>60); Est Glom Filt Rate - Afr Amer 138 mL/min (>60); Estimated Creatinine Clearance 125.51 ml/min; Glucose 88 mg/dL (74-106); Potassium 4.5 mmol/L (3.5-5.1); Sodium Level 139 mmol/L (136-145); Troponin-I HS 10 pg/mL (3.0-78.0)
[2024-07-31 11:41] VITALS: BP 141/88; PULSE 75; RESP 22; TEMP 36.9; O2SAT 93
[2024-07-31 13:05] VITALS: BP 130/85; PULSE 69; RESP 20; O2SAT 93
== END 2024-07-31 13:05 | disposition home or self-care (01) ==
PROVIDERS: Emergency Provider Emergency Medicine; PCP Internal Medicine; Visit Provider Emergency Medicine
DX: G20.A1 Parkinson's disease without dyskinesia, without mention of fluctuations (principal); J06.9 Acute upper respiratory infection, unspecified; R03.0 Elevated blood-pressure reading, without diagnosis of hypertension; Z87.891 Personal history of nicotine dependence; I10 Essential (primary) hypertension; Z79.899 Other long term (current) drug therapy; Z90.49 Acquired absence of other specified parts of digestive tract
CPT/HCPCS: 70450; 71045; 80048; 84484; 85027; 87631; 93005; 96374; 99284; A4216

== ENCOUNTER 2024-09-26 15:18 | Inpatient (IN) | payer MEDICARE, SELFPAY ==
[2024-09-26] VITALS (8 sets, daily range): BP systolic 118–179; BP diastolic 64–105; PULSE 94–135; RESP 19–26; TEMP 36.4–36.9; O2SAT 94–98; BMI 29.5; BMI 27.8
--- NOTE | 2024-09-26 15:20 | EX.ED.DYSGE1 ---
HPI History of Present Illness Chief Complaint: Fall [facility] Medical History Cellulitis of left lower leg Anxiety Alcohol use Marijuana use Ambulates with cane Hepatitis Injury of head and neck Syncope Former smoker Shortness of breath on exertion Neuropathy Tremor Foot drop History of stress test Hypertension Cristela Monahan virus positive mononucleosis syndrome High calcium levels Cluster headaches GERD (gastroesophageal reflux disease) PTSD (post-traumatic stress disorder) Adrenal disorder Draining postoperative wound Perforation of small intestine Back pain due to injury Chronic pain Pancreatitis neck/back pain Limb weakness Difficulty balancing MRSA (methicillin resistant staph aureus) culture positive Anemia Shoulder pain Arthritis Acute pancreatitis Home Medications ?Medication ?Instructions ?Recorded ?Last Taken ?Type doxycycline hyclate 100 mg tablet 100 mg PO BID #10 tabs 08/16/24 Unknown Rx handicap placard #1 ea 08/16/24 Unknown Rx miscellaneous medical supply #1 ea 08/16/24 Unknown Rx (Blood Pressure Cuff) multivitamin 1 tab PO QDAY 08/16/24 Unknown History Allergy/AdvReac Type Severity Reaction Status Date / Time hydroxyzine (From Vistaril) Allergy Severe Vomiting Verified 09/26/24 15:23 niacin Allergy Severe Vomiting Verified 09/26/24 15:23 carbidopa (From Sinemet) Allergy Mild Abd Verified 09/26/24 15:23 cramps/diarrhea levodopa (From Sinemet) Allergy Mild Abd Verified 09/26/24 15:23 cramps/diarrhea acetaminophen AdvReac Severe Nausea/Vom/ Verified 09/26/24 15:23 Diarrhea fentanyl (From Duragesic) AdvReac Severe Nausea/Vom/ Verified 09/26/24 15:23 Diarrhea metoclopramide HCl (From AdvReac anxiety Verified 09/26/24 15:23 Reglan) nabumetone (From Relafen) AdvReac Nausea/Vom/ Verified 09/26/24 15:23 Diarrhea Family History Father Cancer ? 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 Smoking Status: Former smoker Tobacco: How many years used: 20 Smokeless tobacco user: other alcohol intake: former substance use type: does not use do you feel safe at home: Yes EXAM Physical Exam Const Vital Signs: 09/26/24 15:19 09/26/24 17:02 09/26/24 17:53 Temperature 98.4 F Temperature Source Oral Pulse Rate 135 H 107 H 104 H Respiratory Rate 26 H 19 H Blood Pressure 179/104 H 171/91 H 149/102 H Blood Pressure Mean 129 117 117 Pulse Ox 94 98 94 Oxygen Delivery Method Room Air Room Air Room Air MDM MDM MDM Narrative Medical decision making narrative: HISTORY OF PRESENT ILLNESS: 64-year-old male history of hypertension, MADDIE, chronic low back pain, tremor, GERD presents with fall. Notes he fell while walking to his house. Notes severe right hip pain. Patient notes he suffered mechanical fall from standing. Denies any head trauma. Notes severe right hip pain. Denies any arm pain, chest pain, back pain, abdominal pain, left leg pain. REVIEW OF SYSTEMS: Pertinent positives: Right hip pain Pertinent negatives: Trauma, LOC PHYSICAL EXAM: Nursing triage notes reviewed, Vital signs reviewed Primary Survey Airway: Intact Breathing: Bilateral breath sounds Circulation: Palpable bilateral femorals, Palpable bilateral radial, Palpable bilateral DP and Palpable bilateral PT Disability / Spine precautions GCS Score: Eye Openin Verbal Response: 5 Motor Response: 6 Secondary Survey Constitutional: Please see MDM Head: Atraumatic, Midface stable, NO jaw malocclusion, No Cephalohematoma, and No Lacerations noted Eye: Pupils equal round and reactive to light, Extraocular muscles intact and No periorbital ecchymosis or stepoff, no evidence of entrapment ENT: Oropharynx clear, no lacerations, no hemotympanum, no raccoon eyes or dunbar sign Cervical spine / Neck: No cervical spine bony tenderness, crepitance, or stepoff deformity Trachea midline Lungs: Clear to auscultation, No asymmetric rise and No crepitus, no flail chest Cardiac: Regular rate and rhythm and No murmurs Abdomen: Soft, Nontender and No rebound Pelvis: Pelvis stable to compression : No evidence of genital injury Back: No midline bony tenderness to thoracic/lumbar/sacral spines Neuro: At baseline, intact strength and sensation in bilateral upper and lower extremities. 2+ patellar reflexes bilaterally. Extremities: Right lower extremity shortened externally rotated compared to left, intact pulses, compartments are soft. Squeeze a TTP over right greater trochanter. Psych: Normal affect Nursing triage notes reviewed, Vital signs reviewed MEDICAL DECISION MAKING: Chief Complaint: Right hip pain External records reviewed: Reviewed prior imaging studies Factors affecting care: As per HPI Social determinants of health: none History obtained from others: none Consults: Orthopedic surgery (Dr. Mac), internal medicine ([]) [facility] Narrative: The patient was initially hypertensive with a blood pressure 179/104, tachycardic with a pulse of 135, tachypneic with respiratory 26, afebrile saturating 94% room air. I considered the following differential diagnosis: ALL IMAGES (IF OBTAINED) HAVE BEEN PERSONALLY REVIEWED AND INTERPRETED BY MYSELF. X-ray of the right hip shows evidence of right intertrochanteric fracture X-ray of the right femur shows The patient and/or family, caregivers express understanding. The patient and/or family, caregivers agrees with the plan. Shared decision making: I will have a discussion with the patient and or visitors regarding risk/benefits of further testing or admission. They will be made aware of of the risk/benefits inherent in this decision they will be given the opportunity to voice understanding. Total critical care time today provided was at least 0 minutes. This excludes separately billable procedures. Critical care time (if documented) is secondary to the patient having high probability of clinically significant/life threatening deterioration in the patient's condition which required my urgent intervention. Impression: [] Dispo: [] This note was generated with [employer] dictation software. It may contain incorrect words, spelling, and punctuation that were not noted in review of the chart prior to signing. Lab Data Labs: Laboratory Results - last 24 hr 09/26/24 15:45 WBC 6.8 RBC 4.56 L Hgb 14.9 Hct 43.3 MCV 95.0 H MCH 32.7 H MCHC 34.4 RDW Std Deviation 42.5 RDW Coeff of Ar 12.1 Plt Count 223 MPV 9.6 Immature Gran % (Auto) 0.300 Neut % (Auto) 48.5 Lymph % (Auto) 39.1 [place] % (Auto) 8.9 Eos % (Auto) 1.9 Baso % (Auto) 1.3 H Absolute Neuts (auto) 3.3 Absolute Lymphs (auto) 2.67 Nucleated RBC % 0 Sodium 139 Potassium 4.2 Chloride 107 Carbon Dioxide 27.0 Anion Gap 5 BUN 13 Creatinine 0.76 Estim Creat Clear Calc 125.10 Est GFR (MDRD) Af Amer 133 Est GFR (MDRD) Non-Af 110 BUN/Creatinine Ratio 17.2 Glucose 111 H Calcium 8.9 Radiography Diagnostic Testing: Clinical Impression(s) from Imaging Studies Chest X-Ray 09/26/24 16:00 IMPRESSION: Mild cardiomegaly with pulmonary vascular congestion. Reading Location: [facility] Femur X-Ray 09/26/24 16:00 IMPRESSION: Nondisplaced intertrochanteric fracture of the right hip Reading Location: [facility] Pelvis X-Ray 09/26/24 16:00 IMPRESSION: Limited evaluation with probable right intertrochanteric fracture. Consider noncontrast CT scan of the pelvis and right hip for further evaluation Reading Location: [facility] Discharge Plan Triage Chief Complaint: Fall ED Provider: Baljit Fleming Dx/Rx/DC Orders Prescriptions: No Action multivitamin Tablet 1 tab PO QDAY (DME) handicap placard See Rx Instructions .ROUTE .MEDSUPPLY Qty: 1 0RF Rx Instructions: Length of time: 5 years Diagnosis: Impaired physical mobility Z74.09 (DME) Blood Pressure Cuff Misc See Rx Instructions .Route Qty: 1 0RF Rx Instructions: As directed doxycycline hyclate 100 mg tablet 100 mg PO BID Qty: 10 0RF Primary Care Provider: Aleshia Marino Referrals: Aleshia Marino MD [Primary Care Provider] - Print Language: Egyptian
--- NOTE | 2024-09-26 15:28 | EKG12_ITS ---
Test Reason : FALL Blood Pressure : */* mmHG Vent. Rate : 113 BPM Atrial Rate : 113 BPM P-R Int : 144 ms QRS Dur : 146 ms QT Int : 354 ms P-R-T Axes : 88 141 -24 degrees QTcB Int : 485 ms Sinus tachycardia Right bundle branch block Lateral infarct , age undetermined Abnormal ECG Confirmed by Nathan Tijerina ([id number]), production editor SHAHIDA ESCOBAR ([id number]) on 09/28/2024 8:06:13 AM Referred By: Confirmed By: Nathan Tijerina
[2024-09-26] MEDS: Morphine 4 MG/ML Syringe IV (15:38)
[2024-09-26] MEDS: Ondansetron 4 MG/2 ML Vial IV (15:38)
[2024-09-26] MEDS: Ketorolac 15 MG/ML Vial IV ×2 (15:38→21:27)
[2024-09-26 15:54] LABS: Absolute Lymphocyte Count 2.67 X10^3/uL (0.83-4.51); Absolute Neutrophil Count 3.3 X10^3/uL (2.0-7.7); Basophil# 0.09 X10^3/uL; Basophil% 1.3 % (0-1); Eosinophil# 0.13 X10^3/uL; Eosinophils% 1.9 % (0-5); Hematocrit 43.3 % (40-54); Hemoglobin 14.9 g/dL (13.0-16.5); Lymphocyte # 2.67 X10^3/ul (0.83-4.51); Lymphocyte % 39.1 % (19-41); Mean Corp Hgb Conc 34.4 g/dL (32-36); Mean Corpuscular Hgb 32.7 pg (27.0-32.0); Mean Platelet Vol. 9.6 fl (6.2-12.0); Monocyte# 0.61 X10^3/uL; Monocyte% 8.9 % (0-10); NRBC Flagged by Analyzer 0 % (0-5); Neutrophil % 48.5 % (47-70); Platelet Count 223 K/mm3 (150-450); RBC Distribution Width CV 12.1 % (11.6-14.6); RBC Distribution Width SD 42.5 fl (35.1-43.9); Red Blood Count 4.56 M/mm3 (4.6-6.2); White Blood Count 6.8 K/mm3 (4.4-11.0)
--- NOTE | 2024-09-26 16:00 | RAD_ITS ---
PROCEDURE: PELVIS 1 OR 2 VIEWS REASON FOR EXAM: Right hip pain TECHNIQUE: 1 view(s) of the pelvis. COMPARISON: None FINDINGS: Part of the right femur is truncated from view. There is a lucency about the greater trochanter concerning for intertrochanteric fracture.. Mild joint space narrowing is noted in the bilateral hips. Soft tissues are unremarkable. RAD/Pelvis 1 or 2 Views IMPRESSION: Limited evaluation with probable right intertrochanteric fracture. Consider no ncontrast CT scan of the pelvis and right hip for further evaluation Reading Location: [facility]
--- NOTE | 2024-09-26 16:00 | RAD_ITS ---
PROCEDURE: CHEST 1 VIEW REASON FOR EXAM: Hip fracture TECHNIQUE: Frontal views of the chest COMPARISON: 07/31/2024 FINDINGS: Heart size is moderately enlarged. There are atherosclerotic calcifications of the thoracic aorta. Pulmonary vasculature is congested. Degenerative changes are identified within the thoracic spine. RAD/Chest 1 View IMPRESSION: Mild cardiomegaly with pulmonary vascular congestion. Reading Location: [facility]
--- NOTE | 2024-09-26 16:00 | RAD_ITS ---
PROCEDURE: FEMUR MIN 2 VIEWS REASON FOR EXAM: Pain status post fall TECHNIQUE: 4 view(s) of right femur COMPARISON: None. FINDINGS: RIGHT FEMUR: Irregularity and lucency through the greater trochanter. Moderate joint space narrowing of the right hip Normal alignment at the knee Soft tissues are unremarkable. RAD/Femur Min 2 Views IMPRESSION: Nondisplaced intertrochanteric fracture of the right hip Reading Location: [facility]
[2024-09-26 16:07] LABS: Anion Gap 5 (5-15); BUN 13 mg/dL (7-18); BUN/Creat Ratio 17.2 RATIO (10-20); Calcium,Total 8.9 mg/dL (8.5-10.1); Chloride 107 mmol/L (98-107); Creatinine, Serum 0.76 mg/dL (0.70-1.30); EST Glomerular Filtration Rate 110 mL/min (>60); Est Glom Filt Rate - Afr Amer 133 mL/min (>60); Glucose 111 mg/dL (74-106); Potassium 4.2 mmol/L (3.5-5.1); Sodium Level 139 mmol/L (136-145)
[2024-09-26] MEDS: HYDROmorphone 1 MG/ML Syringe IV ×2 (17:04→19:19)
--- NOTE | 2024-09-26 19:21 | PCM.HP.STD ---
HPI - General General Date of Service: 09/26/24 Chief Complaint: right hip pain. HPI Narrative OLGA SANTOYO, is a 64 M who presents with right hip pain. This is a 64-year-old male with a history of Parkinson's, right dropfoot and rolled his right ankle today falling and hitting his right side. He was unable to get up and he had right hip pain. He presented to the emergency room and was found to have nondisplaced intertrochanteric fracture of the right hip. Dr. Mac of orthopedics was contacted and would be willing to see the patient in consultation. [facility] Medical History Cellulitis of left lower leg Anxiety Alcohol use Marijuana use Ambulates with cane Hepatitis Injury of head and neck Syncope Former smoker Shortness of breath on exertion Neuropathy Tremor Foot drop History of stress test Hypertension Cristela Monahan virus positive mononucleosis syndrome High calcium levels Cluster headaches GERD (gastroesophageal reflux disease) PTSD (post-traumatic stress disorder) Adrenal disorder Draining postoperative wound Perforation of small intestine Back pain due to injury Chronic pain Pancreatitis neck/back pain Limb weakness Difficulty balancing MRSA (methicillin resistant staph aureus) culture positive Anemia Shoulder pain Arthritis Acute pancreatitis Home Medications ?Medication ?Instructions ?Recorded ?Last Taken ?Type handicap placard #1 ea 08/16/24 Unknown Rx miscellaneous medical supply #1 ea 08/16/24 Unknown Rx (Blood Pressure Cuff) multivitamin 1 tab PO QDAY 08/16/24 09/25/24 History MEDICAL MARIJUANA 09/26/24 Unknown History (INFORMATIONAL USE ONLY-PT USES MEDICAL MARIJUANA cyclobenzaprine 5 mg tablet 5 mg PO TID 09/26/24 09/26/24 History mirtazapine 15 mg tablet 15 mg PO QHS 09/26/24 09/25/24 History Allergy/AdvReac Type Severity Reaction Status Date / Time hydroxyzine (From Vistaril) Allergy Severe Vomiting Verified 09/26/24 15:23 niacin Allergy Severe Vomiting Verified 09/26/24 15:23 carbidopa (From Sinemet) Allergy Mild Abd Verified 09/26/24 15:23 cramps/diarrhea levodopa (From Sinemet) Allergy Mild Abd Verified 09/26/24 15:23 cramps/diarrhea acetaminophen AdvReac Severe Nausea/Vom/ Verified 09/26/24 15:23 Diarrhea fentanyl (From Duragesic) AdvReac Severe Nausea/Vom/ Verified 09/26/24 15:23 Diarrhea metoclopramide HCl (From AdvReac anxiety Verified 09/26/24 15:23 Reglan) nabumetone (From Relafen) AdvReac Nausea/Vom/ Verified 09/26/24 15:23 Diarrhea Family History Father Cancer ? 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 Does not take Sinemet because of hallucinations that he had. All review of systems were negative except as mentioned above in the history of present illness and the other review of systems. Vital Signs Vital Signs Vital Signs: 09/26/24 15:19 09/26/24 17:02 09/26/24 17:53 Temperature 36.9 C Temperature Source Oral Pulse Rate 135 H 107 H 104 H Respiratory Rate 26 H 19 H Blood Pressure 179/104 H 171/91 H 149/102 H Blood Pressure Mean 129 117 117 Pulse Ox 94 98 94 Oxygen Delivery Method Room Air Room Air Room Air 09/26/24 18:19 09/26/24 18:56 09/26/24 18:57 Temperature 36.8 C 36.8 C Temperature Source Oral Pulse Rate 110 H 114 H 114 H Respiratory Rate 19 H 20 H 20 H Blood Pressure 142/101 H 147/105 H 147/105 H Blood Pressure Mean 114 119 119 Pulse Ox 98 96 96 Oxygen Delivery Method Room Air Room Air Weight Weight: 110 kg Body Mass Index (BMI) 29.5 Physical Exam Const alert and no apparent distress Constitutional Narrative: Upper extremity tremors HEENT normocephalic and head/scalp atraumatic Neck no lymphadenopathy Resp normal respiratory effort, no retractions, no use of accessory muscles and clear to auscultation bilaterally Cardio regular rate, regular rhythm, S1 normal heart sound and S2 normal heart sound GI normal to inspection, nondistended, normoactive bowel sounds, soft to palpation, non-tender and non-distended Extremity normal to inspection, full ROM and no clubbing, cyanosis or edema Neuro Sensorium / Orientation: awake and alert Results Lab / Micro Data 09/26/24 15:45 09/26/24 15:45 Labs: Laboratory Results - last 24 hr 09/26/24 15:45: WBC 6.8, RBC 4.56 L, Hgb 14.9, Hct 43.3, MCV 95.0 H, MCH 32.7 H, MCHC 34.4, RDW Std Deviation 42.5, RDW Coeff of Ar 12.1, Plt Count 223, MPV 9.6, Immature Gran % (Auto) 0.300, Neut % (Auto) 48.5, Lymph % (Auto) 39.1, [place] % (Auto) 8.9, Eos % (Auto) 1.9, Baso % (Auto) 1.3 H, Absolute Neuts (auto) 3.3, Absolute Lymphs (auto) 2.67, Nucleated RBC % 0, Sodium 139, Potassium 4.2, Chloride 107, Carbon Dioxide 27.0, Anion Gap 5, BUN 13, Creatinine 0.76, Estim Creat Clear Calc 125.10, Est GFR (MDRD) Af Amer 133, Est GFR (MDRD) Non-Af 110, BUN/Creatinine Ratio 17.2, Glucose 111 H, Calcium 8.9 Imaging Radiology Impression Chest X-Ray 09/26/24 16:00 IMPRESSION: Mild cardiomegaly with pulmonary vascular congestion. Reading Location: [facility] Femur X-Ray 09/26/24 16:00 IMPRESSION: Nondisplaced intertrochanteric fracture of the right hip Reading Location: [facility] Pelvis X-Ray 09/26/24 16:00 IMPRESSION: Limited evaluation with probable right intertrochanteric fracture. Consider noncontrast CT scan of the pelvis and right hip for further evaluation Reading Location: [facility] Assessment & Plan Assessment/Plan (1) Hip fracture: PLAN: Status post mechanical fall. Patient be on bedrest for now. Check a 25-hydroxy vitamin D level. Dr. Mac on consult. NQSIP performed and patient is at serious complication risk, any complication, surgical site infection, discharged to nursing or rehab facility. Though none of this is prohibitive for the patient to undergo surgery and patient is medically optimized to proceed. Pain control. PLAN: Plan Parkinson's disease: Has not tolerated Sinemet in the past due to hallucinations. Supportive management. MADDIE: Patient's to bring in CPAP. VTE prophylaxis: High risk. SCDs. CODE STATUS: Addressed with the patient. Patient wishes to be full code. Charges/Coding Visit Charges Inpatient E&M: 30049 Init Hosp L3
--- NOTE | 2024-09-26 20:40 | CASEMGMT ---
Care Management Face to Face with patient for initial transition planning/care coordination assessment in the ED.? This personal lines underwriter introduced self and role at [facility]. Patient alert and oriented. Patient willing to participate in assessment and is able to answer all questions appropriately.? Care providers, pharmacy, and demographics verified. Admitting Diagnosis: Hip fx Other diagnosis history: ?tremor, neuropathy, hypertension, pancreatitis, arthritis PCP: ?[facility] Specialists: none Preferred Pharmacy: ?[facility] Insurance: AARP Prescription Benefit: ?yes Living Will/HPOA: ?Does not have LW or HPOA, would like to complete while admitted LNOK: ? Living Arrangements: lives with in one story apartment.? Reports to being independent with ADLs and IADLs Transportation: ?can drive but mostly does DME: ?cane, walker, shower chair, raised toilet seat, grab bar in shower, pulse ox HHC: ?used [facility] in past SNF/Rehab: rehab stay when lived in [place] Community Resources: ?none Behavioral Health History: ?reports to panic attacks, dx of PTSD and anxiety. Is on Remeron ??? Patient goals: Patient wishes to discharge home.? Patient denies any further needs or concerns at this time. Disposition Plan: admission to acute; RN CM/SW to follow for discharge planning needs that may arise. Celia Guzmán, OUTREACH SPECIALIST, [employer]
[2024-09-26] MEDS: oxyCODONE 5 MG Tablet PO (21:27)
[2024-09-26] MEDS: 0.9% Saline Lock 10 ML Syringe IV (21:28)
[2024-09-26 22:19] LABS: Vitamin D,25 Hydroxy 25.4 ng/mL
[2024-09-26 22:27] LABS: ALB/GLOB Ratio 1.1 RATIO (0.9-2.4); AST(SGOT) 17 U/L (15-37); Alanine Aminotransfer ALT/SGPT 20 U/L (16-61); Albumin, Serum 3.6 g/dL (3.2-5.0); Alkaline Phosphatase 67 U/L (45-117); Anion Gap 7 (5-15); BUN 14 mg/dL (7-18); BUN/Creat Ratio 17.1 RATIO (10-20); Calcium,Total 8.8 mg/dL (8.5-10.1); Chloride 108 mmol/L (98-107); Creatinine, Serum 0.82 mg/dL (0.70-1.30); EST Glomerular Filtration Rate 100 mL/min (>60); Est Glom Filt Rate - Afr Amer 121 mL/min (>60); Estimated Creatinine Clearance 110.26 ml/min; Globulin 3.3 g/dL (2.2-4.2); Glucose 117 mg/dL (74-106); Potassium 4.4 mmol/L (3.5-5.1); Protein, Total 6.9 g/dL (6.4-8.2); Sodium Level 140 mmol/L (136-145)
[2024-09-26] MEDS: Mirtazapine 15 MG Tablet PO (23:11)
[2024-09-26] MEDS: cycloBENZAPRine HCl 5 MG TABLET PO (23:11)
[2024-09-26] MEDS: Senna/Docusate Sodium 1 Tablet 2 TABLET PO (23:11)
[2024-09-26] MEDS: Morphine 2 MG/ML Syringe IV (23:14)
[2024-09-27] VITALS (17 sets, daily range): BP systolic 110–170; BP diastolic 44–96; PULSE 75–123; RESP 12–24; TEMP 36.7–37.1; O2SAT 94–100
[2024-09-27] MEDS: Morphine 2 MG/ML Syringe IV (02:52)
[2024-09-27] MEDS: 0.9% Saline Lock 10 ML Syringe IV (02:53)
--- NOTE | 2024-09-27 05:17 | CT_ITS ---
PROCEDURE: SOFT TISSUE NECK WITHOUT CONTR REASON FOR EXAM: Throat swelling. TECHNIQUE: CT of the soft tissues of the neck from the orbits to the upper mediastinum without intravenous contrast. CONTRAST: COMPARISON: Soft tissue neck x-ray performed on 10/30/2022. FINDINGS: Airway: The uvula appears moderately enlarged measuring up to 2.3 x 2.3 cm at its tip. This is best seen on image 70/117 on the axial view and image 63/122 on the lateral view. This is resulting in narrowing of the oropharynx. A central hypodense area is present within the tip of the enlarged uvula. These findings are worrisome for acute uvulitis with potentially central abscess. Uvula masses also within differential. Recommend ENT consultation at this time on direct visualization. Salivary glands: Unremarkable. Lymph nodes: Several prominent cervical lymph nodes seen, nonspecific. Thyroid: Incompletely assessed. Vasculature: Incompletely assessed due to lack of intravenous contrast. Paranasal sinuses and mastoids: Polyp/mucosal retention cysts within the bilateral maxillary sinuses. Lung apices: Scattered emphysematous changes. Upper mediastinum: Atheromatous calcification within the aortic arch. Bones: Multilevel degenerative changes are present. Sclerotic density seen within the T1 vertebral body (image 64/122), nonspecific but may be related to bone island. CT/Soft Tissue Neck without Contr IMPRESSION: Limited examination due to lack of intravenous contrast. Abnormally enlarged uvula resulting in narrowing of the oropharynx. Differenti al diagnosis includes, but not limited to uvulitis which central abscess. Differential diagnosis also includes angioedema. Under lying uvula mass can not be ruled out. Recommend direct visualization/ENT consultation. Pulmonary emphysema. Other findings as above. One or more dose reduction techniques were used (e.g., Automated exposure contr ol, adjustment of the mA and/or kV according to patient size, use of iterative reconstruction technique). Reading Location: [id number]
[2024-09-27] MEDS: MethylPREDNISolone 125 MG/2 ML Vial IV (05:25)
[2024-09-27] MEDS: Ipratropium/Albuterol Sulfate 3 ML AMPUL.NEB INHALATION (05:30)
--- NOTE | 2024-09-27 05:57 | PCM.HOSP.N ---
Hospitalist Note I was called by med-surgical services director and informed the patient felt like he had something stuck in his throat with patient having moderate dyspnea at rest. His mucous membranes were dry with minimal evidence of swelling. He was treated with diphenhydramine 25 mg IV once followed by Solu-Medrol 125 mg IV once with a STAT ABG and CT scan of the neck without contrast ordered to evaluate for evidence of airway obstruction/swelling. He responded well to a breathing treatment and supplemental oxygen.
[2024-09-27] MEDS: DiphenhydrAMINE 50 MG/ML Syringe 25 MG IV (06:16)
[2024-09-27 07:17] LABS: Absolute Neutrophil Count 7.2 X10^3/uL (2.0-7.7); Basophil# 0.04 X10^3/uL; Basophil% 0.5 % (0-1); Eosinophil# 0.04 X10^3/uL; Eosinophils% 0.5 % (0-5); Hematocrit 42.8 % (40-54); Hemoglobin 14.4 g/dL (13.0-16.5); Lymphocyte % 9.2 % (19-41); Mean Corp Hgb Conc 33.6 g/dL (32-36); Mean Corpuscular Hgb 32.4 pg (27.0-32.0); Mean Corpuscular Volume 96.2 fL (80-94); Mean Platelet Vol. 9.9 fl (6.2-12.0); Monocyte# 0.49 X10^3/uL; Monocyte% 5.7 % (0-10); NRBC Flagged by Analyzer 0 % (0-5); Neutrophil # 7.24 X10^3/uL (2.7-7.7); Neutrophil % 83.6 % (47-70); Platelet Count 175 K/mm3 (150-450); RBC Distribution Width CV 12.4 % (11.6-14.6); RBC Distribution Width SD 43.9 fl (35.1-43.9); Red Blood Count 4.45 M/mm3 (4.6-6.2); White Blood Count 8.7 K/mm3 (4.4-11.0)
--- NOTE | 2024-09-27 08:02 | EX.PCM.CONCC ---
Assessment & Plan Assessment/Plan (1) Uvular swelling: PLAN: Plan RECOMMENDATIONS: 1. Continue supplemental oxygen to maintain saturations at or above 90%. 2. Continue empiric antimicrobials. 3. Continue Pepcid and IV steroids. 4. Low threshold for intubation if the patient worsens clinically. 5. Timing for surgical intervention of hip fracture per orthopedic surgery. IMPRESSIONS: 1. Uvula enlargement The patient developed the sensation of difficulty swallowing and dyspnea last night, with CT imaging of the neck demonstrated an enlarged uvula with narrowing of the oropharynx, concerning for uvulitis, abscess or mass. The patient received Benadryl and IV steroids. He was subsequently moved to the medical intensive care unit for close monitoring of his airway. The patient remains clinically stable. He is not in any form of extremis nor does his airway appear to be acutely compromised. Accordingly, we will plan to continue supportive care with antimicrobials, steroids and Pepcid. The exact etiology for the swelling is not entirely clear. Nevertheless, there is not currently an ENT provider on-call to evaluate the patient. If the patient were to worsen clinically, aside from intubation, I would recommend that he be transferred to an alternative facility with ENT capability. 2. Hip fracture Awaiting surgical intervention by orthopedic surgery. 3. History of Parkinson's disease/chronic marijuana use/obstructive sleep apnea Complicates care, management, recovery and prognosis. Continue supportive care as noted above. This note was generated with [employer] dictation software. It may contain incorrect words, spelling, and punctuation that were not noted in checking the note before signing. HPI Consult Data Date of Consult: 09/27/24 HPI Narrative Reason for Consultation: ? Airway compromise HPI Narrative: The patient is a 64-year-old male, with a history as outlined below, who presented to the emergency department via EMS on September 26 after sustaining a fall. The patient does have a history of Parkinson disease and reports regular use of medical marijuana. In addition, he reported that he has been diagnosed with sleep apnea and reportedly utilizes nocturnal CPAP with a pressure support of 6 cm of water. Subsequent workup in the emergency department demonstrated evidence of a nondisplaced intertrochanteric fracture of the right hip. Orthopedic surgery was subsequently consulted. The patient was admitted to the hospital for further management. Last night, the patient reported difficulty swallowing and some dyspnea, for which the patient received Benadryl and IV Solu-Medrol. CT neck revealed an enlarged uvula resulting in narrowing of the oropharynx. Over concerns for possible airway compromise, the patient was transferred to the medical intensive care unit. On my evaluation of the patient, the patient reported that the swallowing difficulty and shortness of breath that he was experiencing last night has actually improved. He is not in any extremis and appears comfortable resting in bed. There was no stridor noted on examination. Aside from pain medications, it does not appear that the patient received any new medications overnight. The patient denied any history of anaphylaxis. [facility] Medical History Cellulitis of left lower leg Anxiety Alcohol use Marijuana use Ambulates with cane Hepatitis Injury of head and neck Syncope Former smoker Shortness of breath on exertion Neuropathy Tremor Foot drop History of stress test Hypertension Cristela Monahan virus positive mononucleosis syndrome High calcium levels Cluster headaches GERD (gastroesophageal reflux disease) PTSD (post-traumatic stress disorder) Adrenal disorder Draining postoperative wound Perforation of small intestine Back pain due to injury Chronic pain Pancreatitis neck/back pain Limb weakness Difficulty balancing MRSA (methicillin resistant staph aureus) culture positive Anemia Shoulder pain Arthritis Acute pancreatitis Home Medications ?Medication ?Instructions ?Recorded ?Last Taken ?Type handicap placard #1 ea 08/16/24 Unknown Rx miscellaneous medical supply #1 ea 08/16/24 Unknown Rx (Blood Pressure Cuff) multivitamin 1 tab PO QDAY 08/16/24 09/25/24 History MEDICAL MARIJUANA 09/26/24 Unknown History (INFORMATIONAL USE ONLY-PT USES MEDICAL MARIJUANA cyclobenzaprine 5 mg tablet 5 mg PO TID 09/26/24 09/26/24 History mirtazapine 15 mg tablet 15 mg PO QHS 09/26/24 09/25/24 History Allergy/AdvReac Type Severity Reaction Status Date / Time hydroxyzine (From Vistaril) Allergy Severe Vomiting Verified 09/26/24 15:23 niacin Allergy Severe Vomiting Verified 09/26/24 15:23 carbidopa (From Sinemet) Allergy Mild Abd Verified 09/26/24 15:23 cramps/diarrhea levodopa (From Sinemet) Allergy Mild Abd Verified 09/26/24 15:23 cramps/diarrhea acetaminophen AdvReac Severe Nausea/Vom/ Verified 09/26/24 15:23 Diarrhea fentanyl (From Duragesic) AdvReac Severe Nausea/Vom/ Verified 09/26/24 15:23 Diarrhea metoclopramide HCl (From AdvReac anxiety Verified 09/26/24 15:23 Reglan) nabumetone (From Relafen) AdvReac Nausea/Vom/ Verified 09/26/24 15:23 Diarrhea Family History Father Cancer ? 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 Physical Exam Const alert and no apparent distress General Appearance: cooperative HEENT normocephalic and head/scalp atraumatic HEENT Narrative: Enlarged uvula with edema involving soft palate Eyes PERRL, EOMs intact bilaterally and conjunctivae normal Neck supple General: trachea midline Chest inspection of chest normal Resp normal respiratory effort Auscultation: Negative for rales, rhonchi or wheezes Cardio regular rate and regular rhythm GI normal to inspection, nondistended, normoactive bowel sounds Extremity no clubbing, cyanosis or edema Skin no rashes or lesions noted Neuro CN's II-XII intact bilaterally and no focal motor deficits Neuro Narrative: Tremors involving upper extremities. Psych cooperative and affect normal Lab / Micro Data 09/27/24 06:49 09/26/24 21:22 Labs: Laboratory Results - last 24 hr 09/26/24 15:45: WBC 6.8, RBC 4.56 L, Hgb 14.9, Hct 43.3, MCV 95.0 H, MCH 32.7 H, MCHC 34.4, RDW Std Deviation 42.5, RDW Coeff of Ar 12.1, Plt Count 223, MPV 9.6, Immature Gran % (Auto) 0.300, Neut % (Auto) 48.5, Lymph % (Auto) 39.1, [place] % (Auto) 8.9, Eos % (Auto) 1.9, Baso % (Auto) 1.3 H, Absolute Neuts (auto) 3.3, Absolute Lymphs (auto) 2.67, Nucleated RBC % 0, Sodium 139, Potassium 4.2, Chloride 107, Carbon Dioxide 27.0, Anion Gap 5, BUN 13, Creatinine 0.76, Estim Creat Clear Calc 125.10, Est GFR (MDRD) Af Amer 133, Est GFR (MDRD) Non-Af 110, BUN/Creatinine Ratio 17.2, Glucose 111 H, Calcium 8.9 09/26/24 21:22: Sodium 140, Potassium 4.4, Chloride 108 H, Carbon Dioxide 25.0, Anion Gap 7, BUN 14, Creatinine 0.82, Estim Creat Clear Calc 110.26, Est GFR (MDRD) Af Amer 121, Est GFR (MDRD) Non-Af 100, BUN/Creatinine Ratio 17.1, Glucose 117 H, Calcium 8.8, Total Bilirubin 0.50, AST 17, ALT 20, Alkaline Phosphatase 67, Total Protein 6.9, Albumin 3.6, Globulin 3.3, Albumin/Globulin Ratio 1.1, Vitamin D 25-Hydroxy 25.4 09/27/24 06:49: WBC 8.7, RBC 4.45 L, Hgb 14.4, Hct 42.8, MCV 96.2 H, MCH 32.4 H, MCHC 33.6, RDW Std Deviation 43.9, RDW Coeff of Ar 12.4, Plt Count 175, MPV 9.9, Immature Gran % (Auto) 0.500, Neut % (Auto) 83.6 H, Lymph % (Auto) 9.2 L, [place] % (Auto) 5.7, Eos % (Auto) 0.5, Baso % (Auto) 0.5, Absolute Neuts (auto) 7.2, Absolute Lymphs (auto) 0.80 L, Nucleated RBC % 0 Imaging Radiology Impression Chest X-Ray 09/26/24 16:00 IMPRESSION: Mild cardiomegaly with pulmonary vascular congestion. Reading Location: [facility] Femur X-Ray 09/26/24 16:00 IMPRESSION: Nondisplaced intertrochanteric fracture of the right hip Reading Location: [facility] Pelvis X-Ray 09/26/24 16:00 IMPRESSION: Limited evaluation with probable right intertrochanteric fracture. Consider noncontrast CT scan of the pelvis and right hip for further evaluation Reading Location: [facility] Soft Tissue Neck CT 09/27/24 05:17 IMPRESSION: Limited examination due to lack of intravenous contrast. Abnormally enlarged uvula resulting in narrowing of the oropharynx. Differential diagnosis includes, but not limited to uvulitis which central abscess. Differential diagnosis also includes angioedema. Underlying uvula mass can not be ruled out. Recommend direct visualization/ENT consultation. Pulmonary emphysema. Other findings as above. One or more dose reduction techniques were used (e.g., Automated exposure control, adjustment of the mA and/or kV according to patient size, use of iterative reconstruction technique). Reading Location: [id number] Charges/Coding Visit Charges [facility]
--- NOTE | 2024-09-27 08:10 | NURSING ---
This RN attempted to call and notify her of the transfer to ICU bed 5. Briana, of pt did not answer so left message to call back. Jaylene EUGENE from ICU informed that this RN attempted to call but was unable to reach her.
[2024-09-27 08:15] LABS: Base Excess -2 mmol/L (-2 to +2); Bicarbonate 23.9 mmol/L (22-26); Blood Gas Specimen Type ART; Mode Not entered; O2 Delivery Device Venti Mask; PO2 70 mmHG (75-100); SITE R Brach; SO2 93 % (95-99); Total Carbon Dioxide 25 mmol/L; pCO2 41.9 mmHg (35-45); pH 7.36 (7.35-7.45)
[2024-09-27] MEDS: oxyCODONE 5 MG Tablet PO ×2 (08:36→11:57)
[2024-09-27] MEDS: Racepinephrine HCl 0.5 ML VIAL.NEB. INHALATION (08:37)
[2024-09-27] MEDS: Ampicillin/Sulbactam 3 GM in 0.9% Normal Saline (100mL MB+) 100 ML IV ×3 (09:50→23:44)
--- NOTE | 2024-09-27 10:08 | CASEMGMT ---
Discharge Planning A list of?SNF providers including quality and resource use data and consistent with the patient's preferred geographic region, medical needs, and insurance network was created in [employer] Guide.? This list was provided to the SW. Josselyn Carver Discharge Planning Asst.
--- NOTE | 2024-09-27 11:02 | CASEMGMT ---
Social Work SW met w/pt and , pt wanted to complete POA for Healthcare document. Pt completed document, named his as POA, was not sure at this time about alternates. SW gave pt the original and a copy, and a copy was placed on the chart. Pt and mentioned concerns about pt's sisters wanting pt's money, his sisters are Sara Mijares and Nisa Lugo. Pt's states they caused a lot of issues last time pt was here. Pt states he is fine w/his sisters getting information, but they are not to be involved in any decision making. SW did let RN know. SW also did let pt and know if they start to call in a lot, we may direct them to call her instead of the ICU, as the staff in ICU generally have one family member be the point person. Pt and state understanding. SW also spoke w/them about options at discharge, did provide to them a list of alf facilities in network w/pt's insurance from [facility]. SW asked them to review the list and if this level of care is needed, will ask them to choose 3 facilities. SW explained a SW or CM will stop back once pt has had surgery and has had PT/OT to review appropriate discharge options. SW will continue to follow. BRADFORD Morales
--- NOTE | 2024-09-27 11:24 | CASEMGMT ---
Insurance review for hospitals In-network with [facility] Advantage insurance if transfer is recommended is as follows: [facility], [facility], [place], [facility], [facility], [facility], , [place], [facility], and [place]. Josselyn Carver, Discharge Planning Asst.
[2024-09-27] MEDS: Famotidine 200 MG/20 ML MDV 20 MG in 0.9% Normal Saline (Pres. free 8 ML 300 MG IV (11:36)
[2024-09-27] MEDS: Ketorolac 15 MG/ML Vial IV (11:39)
--- NOTE | 2024-09-27 13:02 | PN.HOSP_ITS ---
Reason for Visit Reason for Visit: Diagnoses Other lesions of oral mucosa (09/26/24) Fracture of unspecified part of neck of unspecified femur, initial encounter for closed fracture (09/26/24) Subjective Subjective Patient seen early this a.m. when he was on the [facility] floor, during signout was told patient developed stridor and was just given steroids and had a CT of his head and neck ordered for further evaluation. Went up to peak with patient, he had muffled voice but reported he thought that was improving, still maintaining his airway though did feel tight in his throat, denies any history of anaphylaxis or that this is ever happened to him before. Discussed with application development specialist and patient moved on to ICU in the event he decompensated and required intubation. CT showed moderately enlarged uvula resulting in narrowing of the oropharynx with inability to rule out acute uvulitis or abscess or mass and antibiotics were added however patient already with significantly improving steroids and did not require intubation. Objective Data Objective Data Vital Signs: Vital Signs Temp Pulse Resp BP Pulse Ox O2 Del Method O2 Flow Rate 98.1 F 111 H 20 H 124/44 H 98 Nasal Cannula 6 09/27/24 08:50 09/27/24 11:00 09/27/24 11:00 09/27/24 11:00 09/27/24 11:00 09/27/24 11:00 09/27/24 11:00 FiO2 50 09/27/24 05:30 Oxygen Flow Rate (L/min) 6 Oxygen Delivery Method Nasal Cannula Weight: 103.5 kg Body Mass Index (BMI) 27.8 Intake & Output: Intake and Output for Last 24 Hours 09/25/24 09/26/24 09/27/24 23:59 23:59 23:59 Intake Total 0 / 200 434 / 434 Output Total 375 / 375 Balance 0 / -175 59 / 59 Lab / Micro Data 09/27/24 06:49 09/26/24 21:22 Labs: Laboratory Results - last 24 hr 09/26/24 15:45: WBC 6.8, RBC 4.56 L, Hgb 14.9, Hct 43.3, MCV 95.0 H, MCH 32.7 H, MCHC 34.4, RDW Std Deviation 42.5, RDW Coeff of Ar 12.1, Plt Count 223, MPV 9.6, Immature Gran % (Auto) 0.300, Neut % (Auto) 48.5, Lymph % (Auto) 39.1, Vilas % (Auto) 8.9, Eos % (Auto) 1.9, Baso % (Auto) 1.3 H, Absolute Neuts (auto) 3.3, Absolute Lymphs (auto) 2.67, Nucleated RBC % 0, Sodium 139, Potassium 4.2, Chloride 107, Carbon Dioxide 27.0, Anion Gap 5, BUN 13, Creatinine 0.76, Estim Creat Clear Calc 125.10, Est GFR (MDRD) Af Amer 133, Est GFR (MDRD) Non-Af 110, BUN/Creatinine Ratio 17.2, Glucose 111 H, Calcium 8.9 09/26/24 21:22: Sodium 140, Potassium 4.4, Chloride 108 H, Carbon Dioxide 25.0, Anion Gap 7, BUN 14, Creatinine 0.82, Estim Creat Clear Calc 110.26, Est GFR (MDRD) Af Amer 121, Est GFR (MDRD) Non-Af 100, BUN/Creatinine Ratio 17.1, G lucose 117 H, Calcium 8.8, Total Bilirubin 0.50, AST 17, ALT 20, Alkaline Phosphatase 67, Total Protein 6.9, Albumin 3.6, Globulin 3.3, Albumin/Globulin Ratio 1.1, Vitamin D 25-Hydroxy 25.4 09/27/24 06:49: WBC 8.7, RBC 4.45 L, Hgb 14.4, Hct 42.8, MCV 96.2 H, MCH 32.4 H, MCHC 33.6, RDW Std Deviation 43.9, RDW Coeff of Ar 12.4, Plt Count 175, MPV 9.9, Immature Gran % (Auto) 0.500, Neut % (Auto) 83.6 H, Lymph % (Auto) 9.2 L, Vilas % (Auto) 5.7, Eos % (Auto) 0.5, Baso % (Auto) 0.5, Absolute Neuts (auto) 7.2, Absolute Lymphs (auto) 0.80 L, Nucleated RBC % 0, Blood Type O POSITIVE, Antibody Screen NEGATIVE ABG Data ABG results: ABG 09/27/24 08:11 Specimen Type ART Sample Site R Brach pH 7.36 Bicarbonate Actual 23.9 Total CO2 25 Base Excess -2 O2 Saturation 93 L O2 % 50.0 ABG pCO2 41.9 ABG pO2 70 L O2 Delivery Device Venti Mask Vent Mode Not entered Radiography Diagnostic Testing: Radiology Impression Chest X-Ray 09/26/24 16:00 IMPRESSION: Mild cardiomegaly with pulmonary vascular congestion. Reading [facility] Femur [facility]-Ray 09/26/24 16:00 IMPRESSION: Nondisplaced intertrochanteric fracture of the right hip Reading [facility] Pelvis X-Ray 09/26/24 16:00 IMPRESSION: Limited evaluation with probable right intertrochanteric fracture. Consider noncontrast CT scan of the pelvis and right hip for further evaluation Reading [facility] Soft Tissue Neck CT 09/27/24 05:17 IMPRESSION: Limited examination due to lack of intravenous contrast. Abnormally enlarged uvula resulting in narrowing of the oropharynx. Differential diagnosis includes, but not limited to uvulitis which central abscess. Differential diagnosis also includes angioedema. Underlying uvula mass can not be ruled out. Recommend direct visualization/ENT consultation. Pulmonary emphysema. Other findings as above. One or more dose reduction techniques were used (e.g., Automated exposure control, adjustment of the mA and/or kV according to patient size, use of iterative reconstruction technique). Reading Location: [id number] Physical Exam Narrative General: Alert, oriented HEENT: Atraumatic, normocephalic, voice little bit muffled but patient is managing his secretions, has some swelling of uvula and posterior pharynx maintaining airway Eyes: Anicteric, normal conjunctiva, extraocular movements grossly intact Neck: Supple Respiratory: Clear to auscultation bilaterally, normal respiratory effort Cardiovascular: Regular rate and rhythm GI: Soft, nontender, nondistended Extremities: No edema Musculoskeletal: Moving all extremities Neuro: Some diffuse tremors, has known Parkinson's Skin: No rashes appreciated Psych: Cooperative Assessment & Plan Assessment/Plan (1) Uvular swelling: PLAN: Plan #Swelling of uvula -Patient seen early this a.m. when he was on the [facility] floor, during signout was told patient developed stridor and was just given steroids and had a CT of his head and neck ordered for further evaluation -Went up to speak with patient, he had muffled voice but reported he thought that was improving, still maintaining his airway though did feel tight in his throat, denies any history of anaphylaxis or that this is ever happened to him before -Discussed with application development specialist and patient moved on to ICU in the event he decompensated and required intubation -CT showed moderately enlarged uvula resulting in narrowing of the oropharynx with inability to rule out acute uvulitis or abscess or mass and antibiotics were added however patient already with significantly improving steroids and did not require intubation. -Patient maintained on steroids, famotidine, will continue Unasyn at this time -No ENT available at our institution today however given patient rapidly improving with steroids it was felt this was more likely some kind of reaction that was improving with steroids more than it was a tonsillar abscess or other process that would require surgical intervention, it was felt it was reasonable to continue patient on this regimen and follow closely, does not presently require emergent transfer to another facility -Continue famotidine -Component Assembler Supervisor following, will keep patient in ICU # Right hip fracture -Patient fell and came in with right hip fracture -Dr. Mac consulted and plan was for surgery 09/27/2024 -Discussed with anesthesia and application development specialist also discussed with patient's orthopedic surgeon -If patient goes down for surgery it is recommended that he be intubated and subsequently taken back to the ICU and remained intubated until the following day when he can be reassessed by the application development specialist for safety of extubation # Parkinson's disease -Has not tolerated Sinemet due to hallucinations -Supportive care #MADDIE -Continue home NIPPV if applicable #DVT ppx: SCDs Tricia Taylor MD Time spent in the patient's overall evaluation, decision-making process, review of diagnostic data, adjustment of management, discussion with other providers, nursing and ancillary staff involved in patient's care documentation, 80 Minutes Charges/Coding Visit Charges Inpatient E&M: [id number] [place] [id number]
[2024-09-27] MEDS: cycloBENZAPRine HCl 5 MG TABLET PO (13:20)
[2024-09-27] MEDS: 0.9% Normal Saline (1000mL) 1,000 ML 15 ML IV (16:59)
--- NOTE | 2024-09-27 17:08 | PRE.ANES_ITS ---
ASA Classification* ASA Classification ASA Classification: 4 and E Assessment & Plan Anesthesia* Anesthesia Assessment Anesthesia Assessment: Discussed sedation and/or anesthesia options, risks, benefits, and alternatives with patient/parents/legal guardian/POA. Questions invited. The patient/parents/legal guardian/POA seems to understand and agrees to proceed with anesthesia plan. Reviewed the physical assessment, medical history, allergy history and patient home medications list prior to surgery/procedure/anesthetic and documented any changes. Performed airway and anesthesia risk assessments. Anesthesia Type Anesthesia Type: General (Patient is informed that he will be remain intubated on the ventilator overnight. This is to evaluate the laryngeal and soft palate swelling that he encountered earlier today.) History Source History Obtained from:: Patient and Chart Anesthesia Focused Assessment* Temperature: 98.7 F Pulse Rate: 111 Blood Pressure: 135/70 Respiratory Rate: 24 Pulse Ox: 98 Oxygen Delivery Method: Nasal Cannula Oxygen Flow Rate (L/min): 3 Fraction of Inspired Oxygen (FIO2): 50 Airway Assessment Mouth opens: >3 cm Mallampati Score: IV Teeth Condition: Missing (Multiple missing teeth. Everything else is tight.) Neck Range of motion (ROM): Limited ROM Focused Labs Anesthesia Preop lab: 2 CBC WBC 8.7 K/mm3 (4.4-11.0) 09/27/24 06:49 09/27/24 RBC 4.45 M/mm3 (4.6-6.2) L 09/27/24 06:49 09/27/24 Hgb 14.4 g/dL (13.0-16.5) 09/27/24 06:49 09/27/24 Hct 42.8 % (40-54) 09/27/24 06:49 09/27/24 Plt Count 175 K/mm3 (150-450) 09/27/24 06:49 09/27/24 CHEMISTRY Potassium 4.4 mmol/L (3.5-5.1) 09/26/24 21:22 09/26/24 Sodium 140 mmol/L (136-145) 09/26/24 21:22 09/26/24 Magnesium 2.1 mg/dL (1.6-2.6) 10/13/22 09:06 10/13/22 Phosphorus 3.5 mg/dL (2.5-4.9) 10/23/21 06:07 10/23/21 BUN 14 mg/dL (7-18) 09/26/24 21:22 09/26/24 Creatinine 0.82 mg/dL (0.70-1.30) 09/26/24 21:22 09/26/24 Glucose 117 mg/dL (74-106) H 09/26/24 21:22 09/26/24 POC Glucose 130 mg/dL (74-106) H 10/19/21 17:31 10/19/21 TSH 0.966 uIU/mL (0.358-3.740) 04/28/24 08:14 0901/24 COAG Pre-Assessment Diagnosis/Proposed Procedure Planned Operative Procedure(s): Intramedullary rodding right hip. Anesthesia History Anesthesia History - shear operator helper: Anesthesia History - shear operator helper Hx Hospitalization No 03/12/23 08:16 Any Problems With Anesthesia No 09/27/24 03:00 Cholinesterase deficiency No 09/27/24 03:00 You/Your Family Experience No 09/27/24 03:00 fever (hyperthermia) with Relationship Recent Exposure to Contagious No 09/27/24 03:00 Disease Does patient have nerve No 09/27/24 03:00 stimulator Patient instructed to have No 09/27/24 03:00 device shut off --Does patient have Pacemaker or ICD? When Was Last Pacemaker Check QUESTION #4 FULL TEXT: You/Your Family Experience fever (hyperthermia) with Anesthesia Last Oral Intake Last Oral intake: Last Oral Intake NPO since Meds taken in AM with sips of water? Meds patient instructed to take am of surgery Any additional information?: Yes NPO since: 00:00 Meds taken in AM with sips of water?: Yes PONV PONV - shear operator helper: PONV - shear operator helper Female HX of Motion Sickness HX of N/V After Surgery Non-Smoker Duration of Surgery greater than 60 minutes Number of Risk Factors PONV Score Height & Weight Height & Weight: Anesthesia: Height & Weight Height 6 ft 4 in 09/26/24 20:47 Weight: 103.5 kg 09/26/24 20:47 Body Mass Index (BMI) 27.8 09/26/24 20:47 Respiratory Assessment Respiratory Assessment - shear operator helper: Respiratory Tract Infection Hx - shear operator helper Hx Respiratory Tract Infection No 09/27/24 03:00 STOP Sleep Apnea STOP Sleep Apnea - shear operator helper: STOP Sleep Apnea - shear operator helper Hx Hypertension Yes: CONTROLLED WITH MED 09/26/24 20:47 Hx Sleep Apnea Yes 09/26/24 20:47 CPAP Yes 09/26/24 20:47 BIPAP No 09/26/24 20:47 Do you snore loudly (louder than talking or can be heard Do you often feel tired/ fatigued/ sleepy during daytime? Has anyone observed you stop breathing during sleep? STOP Results Positive 09/26/24 20:47 QUESTION #5 FULL TEXT : Do you snore loudly (louder than talking or can be heard through closed doors)? Tobacco Use History Tobacco Use History - shear operator helper: Tobacco Use History - shear operator helper Tobacco Use Smoking Status Former smoker 09/26/24 20:47 Hx Tobacco Use No 09/26/24 20:47 Years Smoking Packs Smoked per Day Smoking Cessation Date was No - quit smoking greater 09/26/24 20:47 within the last 15 years than 15 years ago Hx Smoking Cessation Date 08/03/80 09/26/24 20:47 Hx Smoking Cessation No 09/26/24 20:47 Counseling Hematologic Medial History Hematologic Hx - shear operator helper: Hematologic Medical Hx - roller stainer Hx of Blood Transfusion Yes 09/26/24 20:47 Hx of Transfusion in last 3 No 09/26/24 20:47 Months Date of Last Transfusion (if within last 3 months) Ever experience any problems No 09/26/24 20:47 with transfusion(s)? Specify any problems Hx of Preganancy in last 3 N/A 09/26/24 20:47 Months Nurse Filling Out Transfusion EVIZZO 09/26/24 20:47 & Questions: Date: 09/26/24 09/26/24 20:47 Time: 21:07 09/26/24 20:47 Patient unable to answer at this time (ie. confused, unrespo /Reproduction History /Reproductive History - shear operator helper: /Reproductive Hx- shear operator helper Hx Now No 09/27/24 03:00 Gestational Age (in weeks): EDC: Hx Hx Para Hx Section SAB No 09/27/24 03:00 Active Medications Active Medications: Current Medications Generic Name Dose Route Start Last Admin Trade Name Freq PRN Reason Stop Dose Admin Cyclobenzaprine HCl 5 mg 09/26/24 22:00 09/27/24 13:20 Cyclobenzaprine Hcl 5 Mg Tablet PO 5 mg TID ROXANA Administration Ampicillin Sodium/Sulbactam 112 mls @ 150 mls/hr 09/27/24 12:00 09/27/24 12:26 Sodium 3 gm/ Sodium Chloride IV Infused Q6 ROXANA Infusion Famotidine 20 mg/ Sodium 10 mls @ 300 mls/hr 09/27/24 10:00 09/27/24 12:40 Chloride IV Infused Q24 ROXANA Infusion Sodium Chloride 1,000 mls @ 15 mls/hr 09/27/24 17:00 09/27/24 16:59 IV 10/03/24 06:19 15 mls/hr .Q48H ROXANA Administration Protocol Ketorolac Tromethamine 15 mg 09/26/24 21:00 09/27/24 11:39 Ketorolac 15 Mg/Ml Vial IV 10/01/24 21:00 15 mg Q6H PRN PRN Administration Pain Score 1-10 Methylprednisolone 40 mg 09/27/24 08:30 09/27/24 11:57 Methylprednisolone 40 Mg/Ml Vial IV 40 mg Q6 ROXANA Administration Mirtazapine 15 mg 09/26/24 22:00 09/26/24 23:11 Mirtazapine 15 Mg Tablet PO 15 mg QHS ROXANA Administration Multivitamins 1 tablet 09/27/24 08:00 09/27/24 07:26 Multivitamins,Therapeutic Tablet PO Not Given DAILYCM [facility] Ondansetron HCl 4 mg 09/26/24 21:00 Ondansetron 4 Mg/2 Ml Vial IV Q8H PRN PRN NAUSEA/VOMITING Oxycodone HCl 5 mg 09/26/24 21:00 09/27/24 11:57 Oxycodone 5 Mg Tablet PO 5 mg Q4H PRN PRN Administration Pain Score 4-10 Senna/Docusate Sodium 2 tablet 09/26/24 22:00 09/27/24 07:26 Senna/Docusate Sodium 1 Tablet PO Not Given BID ROXANA Sodium Chloride 10 - 40 ml 09/26/24 21:03 09/27/24 02:53 0.9% Saline Lock 10 Ml Syringe IV 20 ml UD PRN Administration SALINE FLUSH PFSH Medical History Cellulitis of left lower leg Anxiety Alcohol use Marijuana use Ambulates with cane Hepatitis Injury of head and neck Syncope Former smoker Shortness of breath on exertion Neuropathy Tremor Foot drop History of stress test Hypertension Cristela Monahan virus positive mononucleosis syndrome High calcium levels Cluster headaches GERD (gastroesophageal reflux disease) PTSD (post-traumatic stress disorder) Adrenal disorder Draining postoperative wound Perforation of small intestine Back pain due to injury Chronic pain Pancreatitis neck/back pain Limb weakness Difficulty balancing MRSA (methicillin resistant staph aureus) culture positive Anemia Shoulder pain Arthritis Acute pancreatitis Home Medications ?Medication ?Instructions ?Recorded ?Last Taken ?Type handicap placard #1 ea 08/16/24 Unknown Rx miscellaneous medical supply #1 ea 08/16/24 Unknown Rx (Blood Pressure Cuff) multivitamin 1 tab PO QDAY 08/16/2409/25 History MEDICAL MARIJUANA 09/26/24 Unknown History (INFORMATIONAL USE ONLY-PT USES MEDICAL MARIJUANA cyclobenzaprine 5 mg tablet 5 mg PO TID 09/26/2409/26 History mirtazapine 15 mg tablet 15 mg PO QHS 09/26/24 History Allergy/AdvReac Type Severity Reaction Status Date / Time hydroxyzine (From Vistaril) Allergy Severe Vomiting Verified 09/26/24 15:23 niacin Allergy Severe Vomiting Verified 09/26/24 15:23 carbidopa (From Sinemet) Allergy Mild Abd Verified 09/26/24 15:23 cramps/diarrhea levodopa (From Sinemet) Allergy Mild Abd Verified 09/26/24 15:23 cramps/diarrhea acetaminophen AdvReac Severe Nausea/Vom/ Verified 09/26/24 15:23 Diarrhea fentanyl (From Duragesic) AdvReac Severe Nausea/Vom/ Verified 09/26/24 15:23 Diarrhea metoclopramide HCl (From AdvReac anxiety Verified 09/26/24 15:23 Reglan) nabumetone (From Relafen) AdvReac Nausea/Vom/ Verified 09/26/24 15:23 Diarrhea Family History Father Cancer ? 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
--- NOTE | 2024-09-27 18:17 | PCM.CONS.GEN ---
Assessment & Plan Assessment/Plan (1) Hip fracture: PLAN: Plan is for right intramedullary hip nailing by Dr. Mac. I did discuss and review all treatment options with the patient including surgical and nonsurgical treatment options at this time the patient does wish to proceed with open reduction internal fixation of hip fracture. Potential risks, benefits, complications of the procedure were discussed and reviewed at length including but not limited to , infection, nerve and blood vessel damage, persistent pain, numbness, tingling, paresthesias, blood clots, pulmonary embolisms. They have expressed full understanding. All questions were answered. No further questions for the doctor and they have signed the appropriate consent forms. Treatment plan was discussed with patient and patient's family. HPI Consult Data Date of Consult: 09/27/24 HPI Narrative HPI Narrative: OLGA SANTOYO, is a 64 M who presents right hip fracture. Patient states that he was walking in the house on 09/26/2024 holding a bag from [employer] with food and it and his ankle twisted and he went down on his hip. Patient was seen in the emergency department. Patient states that before this time he was using a cane as an assistive device. Patient states that he did have some pain in his right hip here and there but it has always went away and has never stayed for a long. Patient states that he does have a tremor at baseline. Patient states on baseline he has dropfoot on the right and is unable to wiggle his toes on his left due to a previous fracture on the left leg. Patient states that he is not experiencing pain anywhere else from the fall. Patient denies any head injury or loss of consciousness with the fall. Patient denies any history of blood clot in the legs or lungs. Patient denies any recent infection or antibiotic use. [facility] Medical History Cellulitis of left lower leg Anxiety Alcohol use Marijuana use Ambulates with cane Hepatitis Injury of head and neck Syncope Former smoker Shortness of breath on exertion Neuropathy Tremor Foot drop History of stress test Hypertension Cristela Monahan virus positive mononucleosis syndrome High calcium levels Cluster headaches GERD (gastroesophageal reflux disease) PTSD (post-traumatic stress disorder) Adrenal disorder Draining postoperative wound Perforation of small intestine Back pain due to injury Chronic pain Pancreatitis neck/back pain Limb weakness Difficulty balancing MRSA (methicillin resistant staph aureus) culture positive Anemia Shoulder pain Arthritis Acute pancreatitis Home Medications ?Medication ?Instructions ?Recorded ?Last Taken ?Type handicap placard #1 ea 08/16/24 Unknown Rx miscellaneous medical supply #1 ea 08/16/24 Unknown Rx (Blood Pressure Cuff) multivitamin 1 tab PO QDAY 08/16/24 09/25/24 History MEDICAL MARIJUANA 09/26/24 Unknown History (INFORMATIONAL USE ONLY-PT USES MEDICAL MARIJUANA cyclobenzaprine 5 mg tablet 5 mg PO TID 09/26/24 09/26/24 History mirtazapine 15 mg tablet 15 mg PO QHS 09/26/24 09/25/24 History Allergy/AdvReac Type Severity Reaction Status Date / Time hydroxyzine (From Vistaril) Allergy Severe Vomiting Verified 09/26/24 15:23 niacin Allergy Severe Vomiting Verified 09/26/24 15:23 carbidopa (From Sinemet) Allergy Mild Abd Verified 09/26/24 15:23 cramps/diarrhea levodopa (From Sinemet) Allergy Mild Abd Verified 09/26/24 15:23 cramps/diarrhea acetaminophen AdvReac Severe Nausea/Vom/ Verified 09/26/24 15:23 Diarrhea fentanyl (From Duragesic) AdvReac Severe Nausea/Vom/ Verified 09/26/24 15:23 Diarrhea metoclopramide HCl (From AdvReac anxiety Verified 09/26/24 15:23 Reglan) nabumetone (From Relafen) AdvReac Nausea/Vom/ Verified 09/26/24 15:23 Diarrhea Family History Father Cancer ? 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 Sensation intact to light touch. Neurovascularly intact overall. Right hip is severely tender to light touch. Negative Homans bilaterally. Const alert, oriented x3 and no apparent distress Lab / Micro Data 09/27/24 06:49 09/26/24 21:22 Labs: Laboratory Results - last 24 hr 09/26/24 21:22: Sodium 140, Potassium 4.4, Chloride 108 H, Carbon Dioxide 25.0, Anion Gap 7, BUN 14, Creatinine 0.82, Estim Creat Clear Calc 110.26, Est GFR (MDRD) Af Amer 121, Est GFR (MDRD) Non-Af 100, BUN/Creatinine Ratio 17.1, Glucose 117 H, Calcium 8.8, Total Bilirubin 0.50, AST 17, ALT 20, Alkaline Phosphatase 67, Total Protein 6.9, Albumin 3.6, Globulin 3.3, Albumin/Globulin Ratio 1.1, Vitamin D 25-Hydroxy 25.4 09/27/24 06:49: WBC 8.7, RBC 4.45 L, Hgb 14.4, Hct 42.8, MCV 96.2 H, MCH 32.4 H, MCHC 33.6, RDW Std Deviation 43.9, RDW Coeff of Ar 12.4, Plt Count 175, MPV 9.9, Immature Gran % (Auto) 0.500, Neut % (Auto) 83.6 H, Lymph % (Auto) 9.2 L, [place] % (Auto) 5.7, Eos % (Auto) 0.5, Baso % (Auto) 0.5, Absolute Neuts (auto) 7.2, Absolute Lymphs (auto) 0.80 L, Nucleated RBC % 0, Blood Type O POSITIVE, Antibody Screen NEGATIVE ABG Data ABG results: ABG 09/27/24 08:11 Specimen Type ART Sample Site R Brach pH 7.36 Bicarbonate Actual 23.9 Total CO2 25 Base Excess -2 O2 Saturation 93 L O2 % 50.0 ABG pCO2 41.9 ABG pO2 70 L O2 Delivery Device Venti Mask Vent Mode Not entered Imaging Radiology Impression Soft Tissue Neck CT 09/27/24 05:17 IMPRESSION: Limited examination due to lack of intravenous contrast. Abnormally enlarged uvula resulting in narrowing of the oropharynx. Differential diagnosis includes, but not limited to uvulitis which central abscess. Differential diagnosis also includes angioedema. Underlying uvula mass can not be ruled out. Recommend direct visualization/ENT consultation. Pulmonary emphysema. Other findings as above. One or more dose reduction techniques were used (e.g., Automated exposure control, adjustment of the mA and/or kV according to patient size, use of iterative reconstruction technique). Reading Location: [id number] Femur X-Ray 09/26/24 16:00 IMPRESSION: Nondisplaced intertrochanteric fracture of the right hip Reading Location: [id number]
--- NOTE | 2024-09-27 20:56 | PCM.OPRPT ---
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: Yes Relief Charge Nurse: Jessie Pelletier Tasks completed by first officer: Closing and Other (Positioning) Additional esol teacher assistant?: No Type of Anesthesia: General RN Documented Start/Stop Times: Operation Date: 09/27/24 18:00 Case Time Into Pre-Op 09/27/24 16:47 Anesthesia Start 09/27/24 20:01 Into Room 09/27/24 20:01 Procedure Start 09/27/24 20:34 Procedure Start Time: 20:34 Procedure Stop Time: 21:05 Select all DRAINS/GRAFTS/IMPLANTS that apply: Implanted device Implanted device details: [employer] short 1.5 mm 125 degree neck angle nail with 110 mm medial lag screw and 37.5 mm interlocking screw Special Medications: Ancef Estimated Blood Loss: 400 mL Fluids Replaced: 600 mL crystalloid Specimen collected: No Description of surgery: Procedure: On the date of the procedure the patient's R hip was marked in the preoperative area and patient was taken back to the operating room. Anesthetic was administered and patient was transferred to the table were all bony prominence identified well-padded and the ipsilateral arm was placed across the chest. Patient was then translated down to the perineal post and the operative leg was placed in the boot while the nonoperative leg was lowered and secured. The operative leg was placed in traction and internal rotation and live fluoroscopy was used to verify adequate reduction. The operative leg was then prepped in a sterile fashion with chlorhexidine while the surgeon scrubbed. Upon reentering the room the operative extremity was draped in the standard orthopedic fashion. Skin incision was marked and a timeout was called. Everyone agreed upon the side, the site, the procedure be performed, patient's identity, and antibiotics given. Skin incision was made and the position of the entry guidepin was verified using live fluoroscopy. Once we were satisfied with our position the pin was advanced in the soft tissue protector was placed over the pin. The entry reamer was then advanced into the proximal portion of the femur. A guidewire was placed down the intramedullary canal and fluoroscopy was used to verify that the anterior cortex had not been breached distally as well as satisfactory distal positioning. We then used live fluoroscopy to verify the length of the nail and a [employer] short 11.5 mm 125 degree neck and hip nail was selected. The nail was then attached to the nut dehydrator operator and inserted into the intramedullary canal. The appropriate depth was verified and the skin incision for the lag screw was made. The lag screw guidepin was then placed under live fluoroscopy and when a satisfactory position was obtained the length of the screw was measured and the standard technique to drill for the lag screws was performed. The anti-rotation bar was used. At this time a 110 mm lag screw was selected with its corresponding compression screw. The lag screw was then passed and traction was left off the leg. The compression screw was then passed and the fracture was compressed. The final position of the lag screw was verified under fluoroscopy. Attention was then turned to the distal portion of the nail and the extramedullary guide was used to locate the distal interlocking screw and a 37.5 mm distal interlocking screw was placed using this technique. Live fluoroscopy was used to verify the position of the interlocking screw and the final position of the hip components. Once we were satisfied with our positioning the wounds were copiously irrigated out with normal saline skin was closed with 2-0 Vicryl and alena for final skin closure. A sterile dressing was placed with Xeroform. Patient was then awakened by anesthesia transferred from the fracture table back to their hospital bed and transferred to the PACU for recovery. Postoperative plan: Patient will be weight-bear as tolerated. Recommend Xarelto 10 mg daily for 2 weeks followed by aspirin 81 mg p.o. twice daily for 2 weeks for DVT prophylaxis with thigh-high stockings. Will defer to medicine if any further anticoagulation is felt to be more appropriate. follow up in the office in 2 weeks. Surgical Findings: Stable well reduced fracture Complications Complications: No Admit VTE Documentation VTE Present on Admission: No VTE Mechan Device Prophylaxis: SCD's and Thigh High EVAN Hose VTE Pharm Prophylaxis ordered?: Yes
--- NOTE | 2024-09-27 21:00 | RAD_ITS ---
PROCEDURE: HIP MIN 2 VIEWS (PORTABLE) REASON FOR EXAM: Right hip intramedullary rodding, intraoperative fluoroscopy TECHNIQUE: Intraoperative fluoroscopy for ORIF, 4 spot images COMPARISON: 09/26/2024 FINDINGS: Intraoperative fluoroscopy Fluoro time 69.4 seconds Dose total 23.29 mGy 4 intraoperative spot views with fully locked intramedullary gamma nail RAD/Hip Min 2 Views (Portable) IMPRESSION: 4 intraoperative spot views with fully locked intramedullary gamma nail as abov e Reading Location: [id number]
[2024-09-27] MEDS: Propofol 10MG/Ml 1,000 MG/100 ML Bottle 6.2 MG CONT INF (21:45)
--- NOTE | 2024-09-27 22:15 | RAD_ITS ---
PROCEDURE: HIP 1 VIEW WITH PELVIS REASON FOR EXAM: Postoperative assessment. TECHNIQUE: Two views of the right hip COMPARISON: 09/26/2024. FINDINGS: Right femoral internal fixation spanning an intertrochanteric fracture now in near anatomic alignment. Surrounding soft tissue swelling and air with overlying skin alena which is expected postsurgically. RAD/Hip 1 view with Pelvis IMPRESSION: Right femoral internal fixation spanning an intertrochanteric fracture now near anatomic alignment. Reading Location: [id number]
--- NOTE | 2024-09-27 22:15 | RAD_ITS ---
PROCEDURE: CHEST 1 VIEW REASON FOR EXAM: Endotracheal tube placement. TECHNIQUE: Frontal view of the chest. COMPARISON: 09/26/2024. FINDINGS: Endotracheal tube terminates at the level of the clavicular heads. Orogastric tube terminates below the radiograph with the side hole below the gastroesophageal junction. Partially visualized lumbar fixation. Interval development of bilateral infrahilar opacities which may represent secretions status post intubation, worsening edema, or possibly aspiration pneumonia. The heart is enlarged. RAD/Chest 1 View IMPRESSION: Support devices above. Pulmonary findings as above. Reading Location: [place] [id number]
[2024-09-27] MEDS: Cefazolin 1 GM/50 ML BAG IV (22:35)
[2024-09-27] MEDS: CHLORHEXIDINE GLUC 2% CLOTH 1 EACH TOWELETTE TOPICAL (23:43)
[2024-09-27] MEDS: Senna/Docusate Sodium 1 Tablet 2 TABLET PO (23:49)
[2024-09-27] MEDS: Chlorhexidine 15 ML PO (23:51)
[2024-09-28] VITALS (29 sets, daily range): BP systolic 96–156; BP diastolic 38–98; PULSE 63–123; RESP 12–23; TEMP 36–36.9; O2SAT 82–100; BMI 27.1
[2024-09-28] MEDS: Propofol 10MG/Ml 1,000 MG/100 ML Bottle 31.1 MG CONT INF (01:14)
[2024-09-28] MEDS: Cefazolin 1 GM/50 ML BAG IV (04:46)
[2024-09-28] MEDS: 0.9% Saline Lock 10 ML Syringe IV (04:47)
[2024-09-28] MEDS: cycloBENZAPRine HCl 5 MG TABLET GT ×2 (04:51→13:24)
[2024-09-28] MEDS: Rivaroxaban 10 MG Tablet GT (04:51)
[2024-09-28] MEDS: Propofol 10MG/Ml 1,000 MG/100 ML Bottle 27.9 MG CONT INF (04:51)
[2024-09-28 05:04] LABS: Absolute Lymphocyte Count 0.69 X10^3/uL (0.83-4.51); Absolute Neutrophil Count 10.6 X10^3/uL (2.0-7.7); Basophil# 0.02 X10^3/uL; Basophil% 0.2 % (0-1); Hematocrit 38.8 % (40-54); Lymphocyte # 0.69 X10^3/ul (0.83-4.51); Lymphocyte % 5.7 % (19-41); Mean Corp Hgb Conc 33.5 g/dL (32-36); Mean Corpuscular Hgb 32.8 pg (27.0-32.0); Monocyte# 0.76 X10^3/uL; Monocyte% 6.3 % (0-10); NRBC Flagged by Analyzer 0 % (0-5); Neutrophil # 10.58 X10^3/uL (2.7-7.7); Neutrophil % 87.3 % (47-70); Platelet Count 158 K/mm3 (150-450); RBC Distribution Width CV 12.4 % (11.6-14.6); RBC Distribution Width SD 44.9 fl (35.1-43.9); Red Blood Count 3.96 M/mm3 (4.6-6.2); White Blood Count 12.1 K/mm3 (4.4-11.0)
[2024-09-28] MEDS: Ampicillin/Sulbactam 3 GM in 0.9% Normal Saline (100mL MB+) 100 ML IV ×4 (05:30→22:49)
[2024-09-28 05:31] LABS: BUN 18 mg/dL (4-19); BUN/Creat Ratio 27.5 RATIO (10-20); Creatinine, Serum 0.7 mg/dL (0.8-1.3); EST Glomerular Filtration Rate 104 (>60); Estimated Creatinine Clearance 113.02 ml/min; Glucose 141 mg/dL (70-99)
[2024-09-28 06:08] LABS: Allen Test Positive; Base Excess -2 mmol/L (-2 to +2); Bicarbonate 23.2 mmol/L (22-26); Blood Gas Specimen Type ART; Mode AC; O2 Delivery Device Adult Vent; PEEP 5; PO2 60 mmHG (75-100); RR 12; SITE L Radial; SO2 90 % (95-99); Total Carbon Dioxide 24 mmol/L; pCO2 40.5 mmHg (35-45); pH 7.37 (7.35-7.45)
--- NOTE | 2024-09-28 06:52 | PN.ORTHO_ITS ---
Subjective Subjective Patient doing well. Remains intubated overnight due to swelling noted preoperatively. Spoke with nursing staff no acute events. Plan to extubate this morning. Proximal dressing was changed overnight Objective Data Objective Data Vital Signs: Vital Signs Temp Pulse Resp BP Pulse Ox O2 Del Method O2 Flow Rate 97.1 F L 79 18 127/75 H 97 Mechanical Ventilator 3 09/28/24 06:00 09/28/24 06:00 09/28/24 06:00 09/28/24 06:00 09/28/24 06:00 09/28/24 06:00 09/27/24 17:15 FiO2 30 09/28/24 06:00 Oxygen Flow Rate (L/min) 3 Oxygen Delivery Method Mechanical Ventilator Weight: 223 lb 1.725 oz Body Mass Index (BMI) 27.1 Intake & Output: Intake and Output for Last 24 Hours 09/26/24 09/27/24 09/28/24 23:59 23:59 23:59 Intake Total 0 / 200 518.12 / 525.90 474.35 / 474.35 Output Total 1625 / 1625 200 / 200 Balance 0 / -175 -1106.88 / -1099.10 274.35 / 274.35 Lab / Micro Data Attestation: I reviewed the patient's lab results. 09/28/24 04:57 09/28/24 04:57 Labs: Laboratory Results - last 24 hr 09/27/24 06:49: WBC 8.7, RBC 4.45 L, Hgb 14.4, Hct 42.8, MCV 96.2 H, MCH 32.4 H, MCHC 33.6, RDW Std Deviation 43.9, RDW Coeff of Ar 12.4, Plt Count 175, MPV 9.9, Immature Gran % (Auto) 0.500, Neut % (Auto) 83.6 H, Lymph % (Auto) 9.2 L, [place] % (Auto) 5.7, Eos % (Auto) 0.5, Baso % (Auto) 0.5, Absolute Neuts (auto) 7.2, Absolute Lymphs (auto) 0.80 L, Nucleated RBC % 0, Blood Type O POSITIVE, Antibody Screen NEGATIVE 09/28/24 04:57: WBC 12.1 H, RBC 3.96 L, Hgb 13.0, Hct 38.8 L, MCV 98.0 H, MCH 32.8 H, MCHC 33.5, RDW Std Deviation 44.9 H, RDW Coeff of Ar 12.4, Plt Count 158, MPV 10.0, Immature Gran % (Auto) 0.500, Neut % (Auto) 87.3 H, Lymph % (Auto) 5.7 L, [place] % (Auto) 6.3, Eos % (Auto) 0.0, Baso % (Auto) 0.2, Absolute Neuts (auto) 10.6 H, Absolute Lymphs (auto) 0.69 L, Nucleated RBC % 0, BUN 18, C reatinine 0.7 L, Estim Creat Clear Calc 113.02, Est GFR (MDRD) Non-Af 104, B UN/Creatinine Ratio 27.5 H, Glucose 141 H ABG Data ABG results: ABG 09/27/24 09/27/24 09/28/24 08:11 22:05 06:02 Specimen Type ART Cancelled ART Sample Site R Brach Cancelled L Radial pH 7.36 7.37 Bicarbonate Actual 23.9 23.2 Total CO2 25 24 Base Excess -2 -2 O2 Saturation 93 L 90 L O2 % 50.0 Cancelled 30.0 ABG pCO2 41.9 40.5 ABG pO2 70 L 60 L Melo Test Positive VBG pH Cancelled VBG pH (Temp Correct) Cancelled VBG pCO2 (Temp Corrct Cancelled VBG pO2 Cancelled VBG HCO3 Cancelled VBG Total CO2 Cancelled VBG O2 Sat (Calc) Cancelled VBG Base Excess Cancelled POC Mix VBG pCO2 Pt Tmp Cancelled Respiration Rate Cancelled 12 O2 Delivery Device Venti Mask Cancelled Adult Vent Liter Flow Cancelled Minute Volume Cancelled Vent Mode Not entered AC Inspiratory Time Cancelled Expiratory Time Cancelled Tidal Volume Cancelled 500.0 Mean Airway Pressure Cancelled POC PEEP Cancelled 5 Peak Inspir Pressure Cancelled POC Pressure Suppt Cancelled Pressure Control Cancelled EPAP Cancelled IPAP Cancelled Blood Gas Comments Cancelled Crit Call To/Read Back Cancelled Blood Gas Notified Whom Cancelled Blood Gas Notified Time Cancelled Clinical Comments Cancelled Radiography Diagnostic Testing: Radiology Impression Hip X-Ray 09/27/24 21:00 IMPRESSION: 4 intraoperative spot views with fully locked intramedullary gamma nail as above Reading Location: [id number] Chest X-Ray 09/27/24 22:15 IMPRESSION: Support devices above. Pulmonary findings as above. Reading Location: [id number] Hip/Pelvis X-Ray 09/27/24 22:15 IMPRESSION: Right femoral internal fixation spanning an intertrochanteric fracture now near anatomic alignment. Reading Location: [id number] Physical Exam Narrative Right lower extremity: Current dressings are clean dry and intact. Thigh is soft and supple. No excessive swelling. No erythema. Const Constitutional Narrative: Intubated Assessment & Plan Assessment/Plan (1) Fracture, intertrochanteric, right femur: PLAN: Postop day 1 right hip cephalomedullary nail 1. DVT prophylaxis: Have recommended Xarelto 10 mg daily for 2 weeks followed by aspirin 81 mg p.o. twice daily for 2 weeks with mobilization and SCDs in house 2. Medical management: Per primary team. Patient does have leukocytosis this morning likely reactive to surgical intervention and stress. Will monitor. No signs of infection at this time at surgical site 3. Therapy: Patient is weightbearing as tolerated, activity as tolerated once appropriate from medical team 4. Pain control: Per primary service 5. Disposition: Fracture stabilized. Disposition will be dependent on patient's ability wrist pain physical therapy and medical management. Please call orthopedics with any further questions. Dressings can remain on for 5 days postoperatively if they remain dry. Change as needed. Art can be removed on postop day 14 if patient is institutionalized. Otherwise should follow-up in office in 2 weeks. [facility] Office:
[2024-09-28 07:08] LABS: Blood Gas Specimen Type ART
[2024-09-28 07:09] LABS: Allen Test POS; Mode A-C; O2 Delivery Device Vent; SITE L RADIAL
[2024-09-28 07:10] LABS: PEEP 5; RR 12
[2024-09-28 07:11] LABS: Base Excess -3 mmol/L (-2 to +2); Bicarbonate 23.6 mmol/L (22-26); PO2 67 mmHG (75-100); SO2 91 % (95-99); Total Carbon Dioxide 25 mmol/L; pCO2 48.7 mmHg (35-45); pH 7.29 (7.35-7.45)
[2024-09-28 07:14] LABS: Anion Gap 13 (5-15); Carbon Dioxide 21.4 mmol/L (21.0-32.0); Chloride 105 mmol/L (98-107); Potassium 3.8 mmol/L (3.5-5.1); Sodium Level 139 mmol/L (136-145)
--- NOTE | 2024-09-28 07:17 | PCM.PN.HOSP ---
Reason for Visit Reason for Visit: Acute right hip pain Subjective Subjective Patient remains intubated and sedated postoperatively. Anticipate extubation later today Objective Data Objective Data Vital Signs: Vital Signs Temp Pulse Resp BP Pulse Ox O2 Del Method O2 Flow Rate 97.5 F L 83 18 134/80 H 97 Mechanical Ventilator 3 09/28/24 07:00 09/28/24 07:00 09/28/24 07:00 09/28/24 07:00 09/28/24 07:00 09/28/24 07:00 09/27/24 17:15 FiO2 30 09/28/24 07:00 Oxygen Flow Rate (L/min) 3 Oxygen Delivery Method Mechanical Ventilator Weight: 101.2 kg Body Mass Index (BMI) 27.1 Intake & Output: Intake and Output for Last 24 Hours 09/26/24 09/27/24 09/28/24 23:59 23:59 23:59 Intake Total 0 / 200 518.12 / 525.90 528.95 / 528.95 Output Total 1625 / 1625 200 / 200 Balance 0 / -175 -1106.88 / -1099.10 328.95 / 328.95 Lab / Micro Data 09/28/24 04:57 09/28/24 04:57 Labs: Laboratory Results - last 24 hr 09/27/24 06:49: WBC 8.7, RBC 4.45 L, Hgb 14.4, Hct 42.8, MCV 96.2 H, MCH 32.4 H, MCHC 33.6, RDW Std Deviation 43.9, RDW Coeff of Ar 12.4, Plt Count 175, MPV 9.9, Immature Gran % (Auto) 0.500, Neut % (Auto) 83.6 H, Lymph % (Auto) 9.2 L, [place] % (Auto) 5.7, Eos % (Auto) 0.5, Baso % (Auto) 0.5, Absolute Neuts (auto) 7.2, Absolute Lymphs (auto) 0.80 L, Nucleated RBC % 0, Blood Type O POSITIVE, Antibody Screen NEGATIVE 09/28/24 04:57: WBC 12.1 H, RBC 3.96 L, Hgb 13.0, Hct 38.8 L, MCV 98.0 H, MCH 32.8 H, MCHC 33.5, RDW Std Deviation 44.9 H, RDW Coeff of Ar 12.4, Plt Count 158, MPV 10.0, Immature Gran % (Auto) 0.500, Neut % (Auto) 87.3 H, Lymph % (Auto) 5.7 L, [place] % (Auto) 6.3, Eos % (Auto) 0.0, Baso % (Auto) 0.2, Absolute Neuts (auto) 10.6 H, Absolute Lymphs (auto) 0.69 L, Nucleated RBC % 0, Sodium 139, Potassium 3.8, Chloride 105, Carbon Dioxide 21.4, Anion Gap 13, BUN 18, Creatinine 0.7 L, Estim Creat Clear Calc 113.02, Est GFR (MDRD) Non-Af 104, BUN/Creatinine Ratio 27.5 H, Glucose 141 H, Calcium 8.0 ABG Data ABG results: ABG 09/27/24 09/27/24 09/27/24 08:11 22:00 22:05 Specimen Type ART ART Cancelled Sample Site R Brach L RADIAL Cancelled pH 7.36 7.29 L Bicarbonate Actual 23.9 23.6 Total CO2 25 25 Base Excess -2 -3 L O2 Saturation 93 L 91 L O2 % 50.0 50.0 Cancelled ABG pCO2 41.9 48.7 H ABG pO2 70 L 67 L Melo Test POS VBG pH Cancelled VBG pH (Temp Correct) Cancelled VBG pCO2 (Temp Corrct Cancelled VBG pO2 Cancelled VBG HCO3 Cancelled VBG Total CO2 Cancelled VBG O2 Sat (Calc) Cancelled VBG Base Excess Cancelled POC Mix VBG pCO2 Pt Tmp Cancelled Respiration Rate 12 Cancelled O2 Delivery Device Venti Mask Vent Cancelled Liter Flow Cancelled Minute Volume Cancelled Vent Mode Not entered A-C Inspiratory Time Cancelled Expiratory Time Cancelled Tidal Volume 500.0 Cancelled Mean Airway Pressure Cancelled POC PEEP 5 Cancelled Peak Inspir Pressure Cancelled POC Pressure Suppt Cancelled Pressure Control Cancelled EPAP Cancelled IPAP Cancelled Blood Gas Comments Cancelled Crit Call To/Read Back Cancelled Blood Gas Notified Whom Cancelled Blood Gas Notified Time Cancelled Clinical Comments Cancelled 09/28/24 06:02 Specimen Type ART Sample Site L Radial pH 7.37 Bicarbonate Actual 23.2 Total CO2 24 Base Excess -2 O2 Saturation 90 L O2 % 30.0 ABG pCO2 40.5 ABG pO2 60 L Melo Test Positive VBG pH VBG pH (Temp Correct) VBG pCO2 (Temp Corrct VBG pO2 VBG HCO3 VBG Total CO2 VBG O2 Sat (Calc) VBG Base Excess POC Mix VBG pCO2 Pt Tmp Respiration Rate 12 O2 Delivery Device Adult Vent Liter Flow Minute Volume Vent Mode AC Inspiratory Time Expiratory Time Tidal Volume 500.0 Mean Airway Pressure POC PEEP 5 Peak Inspir Pressure POC Pressure Suppt Pressure Control EPAP IPAP Blood Gas Comments Crit Call To/Read Back Blood Gas Notified Whom Blood Gas Notified Time Clinical Comments Radiography Diagnostic Testing: Radiology Impression Hip X-Ray 09/27/24 21:00 IMPRESSION: 4 intraoperative spot views with fully locked intramedullary gamma nail as above Reading Location: [id number] Chest X-Ray 09/27/24 22:15 IMPRESSION: Support devices above. Pulmonary findings as above. Reading Location: [id number] Hip/Pelvis X-Ray 09/27/24 22:15 IMPRESSION: Right femoral internal fixation spanning an intertrochanteric fracture now near anatomic alignment. Reading Location: [id number] Physical Exam Const no apparent distress and well nourished Constitutional Narrative: Overweight, older, white male, lying in bed, appears older than stated age, currently feels comfortable, intubated and sedated HEENT head/scalp atraumatic and moist oral mucous membranes HEENT Narrative: ET tube and OG in place Head and Scalp: normocephalic Eyes Eyes Narrative: Pupils are pinpoint Resp normal respiratory effort, no retractions, no use of accessory muscles and clear to auscultation bilaterally Auscultation: Negative for rales, rhonchi or wheezes Cardio regular rate, regular rhythm, S1 normal heart sound, S2 normal heart sound, no murmurs, no rub, no gallops and no clicks GI normal to inspection, nondistended, normoactive bowel sounds, soft to palpation and non-tender Extremity no clubbing, cyanosis or edema Extremity Narrative: Bilateral lower extremity EVAN hose in place. Postoperative dressing noted on right hip is clean dry and intact Neuro Neuro Narrative: Patient is intubated and sedated Psych Psych Narrative: Unable to assess Assessment & Plan Assessment/Plan (1) Fracture, intertrochanteric, right femur: (2) Uvular swelling: (3) Acute respiratory failure: PLAN: Plan Uvular enlargements with resultant acute respiratory failure -Patient developed stridor and difficulty swallowing yesterday -Remained intubated postoperatively for airway protection -CT of the neck showed enlarged uvula with narrowing of the oropharynx concerning for uvulitis, abscess or mass -Patient did receive Benadryl and IV steroids -Remain intubated postoperatively for his hip surgery -Minimal oxygen requirements -Cuff leak present so anticipate extubation later today -Continue Unasyn day 2 -Continue IV steroids 40 Q6 -Pulmonary/critical care medicine is following Right hip fracture -Postop day 1 from cephalomedullary nail -Plan DVT prophylaxis Xarelto 10 mg daily x 2 weeks followed by aspirin 81 mg twice daily for 2 weeks, SCDs -Weightbearing as tolerated with physical therapy -Continue current pain management -Dressing is to remain on for 5 days postoperatively and change of dry and alena to be removed postop day 14 -Plan for outpatient follow-up in 2 weeks -Orthopedic surgery has signed off Leukocytosis -Suspect reactive postoperatively -No antibiotics required at this time -Will trend Parkinson's disease -Patient has not tolerated Sinemet due to hallucinations previously -Continue supportive care Chronic pain -Patient uses medical marijuana MADDIE -Does not seem the patient is compliant with CPAP -Monitor sats and use oxygen accordingly Depression -Continue home mirtazapine DVT prophylaxis -Xarelto as ordered by orthopedic surgery CODE STATUS -Full code as verified at the time of admission Charges/Coding Visit Charges Inpatient E&M: 81751 Subs Hosp L2
--- NOTE | 2024-09-28 08:07 | PCM.PN.INT ---
Assessment & Plan Assessment/Plan (1) Uvular swelling: PLAN: Plan RECOMMENDATIONS: 1. Proceed with a trial of extubation this morning. 2. Once extubated, wean supplemental oxygen to maintain saturations at or above 90%. 3. Continue Pepcid and steroids yet today. Will plan to discontinue tomorrow, if the patient remains clinically stable. 4. Speech therapy to evaluate the patient prior to advancement of diet. 5. Encourage incentive spirometer use and mobilize patient as tolerated. IMPRESSIONS: 1. Uvula enlargement with resultant respiratory failure The patient developed the sensation of difficulty swallowing and dyspnea with CT imaging of the neck demonstrated an enlarged uvula with narrowing of the oropharynx, concerning for uvulitis, abscess or mass. The patient received Benadryl and IV steroids. He was subsequently moved to the medical intensive care unit for close monitoring of his airway. While the patient remained clinically stable from a respiratory perspective, he was subsequently intubated by anesthesia to help facilitate surgical intervention of his hip fracture. The patient was left intubated overnight. This morning, he is alert and able to follow simple commands. The patient passed a spontaneous breathing trial and was therefore extubated. The swelling noted involving his uvula has improved. Will plan to continue steroids yet today, with tentative plans to discontinue the medication tomorrow if the patient continues to improve. 2. Hip fracture The patient is postoperative day #1 status post right hip cephalomedullary nail. The patient was intubated to facilitate surgical intervention and was left on the ventilator overnight. 3. History of Parkinson's disease/chronic marijuana use/obstructive sleep apnea Complicates care, management, recovery and prognosis. Continue supportive care as noted above. TIME: 33 minutes of critical care time, independent of procedures, was spent addressing the patient's uvula enlargement with resultant respiratory failure, hip fracture, review of all data and collaboration with the care team. Subjective Subjective The patient was seen and examined at the bedside this morning. Events from the last 24 hours have been reviewed. The patient is currently afebrile, hemodynamically stable and maintaining appropriate oxygen saturations on assist-control mode mechanical ventilation with an FiO2 requirement of 30% and PEEP of 5. The patient underwent successful surgical intervention for his hip fracture last evening. He was intubated as a consequence of the surgical procedure and was left on the ventilator overnight. This morning, the patient passed his spontaneous awakening trial and subsequently completed a breathing trial without issue. He does have a notable cuff leak. Therefore, the decision was made to proceed with extubation. White blood cell count is stable at 12,000. Chemistry profile was unremarkable. Objective Data Objective Data The patient's most recent lab work, culture data and imaging studies have all been personally reviewed. Vital Signs: Vital Signs Temp Pulse Resp BP Pulse Ox O2 Del Method O2 Flow Rate 98 F 84 16 142/81 H 94 Mechanical Ventilator 3 09/28/24 08:00 09/28/24 08:00 09/28/24 08:00 09/28/24 08:00 09/28/24 08:00 09/28/24 08:00 09/27/24 17:15 FiO2 30 09/28/24 08:00 Oxygen Flow Rate (L/min) 3 Oxygen Delivery Method Mechanical Ventilator Weight: 223 lb 1.725 oz Body Mass Index (BMI) 27.1 Intake & Output: Intake and Output for Last 24 Hours 09/26/24 09/27/24 09/28/24 23:59 23:59 23:59 Intake Total 0 / 200 518.12 / 525.90 528.95 / 528.95 Output Total 1625 / 1625 200 / 200 Balance 0 / -175 -1106.88 / -1099.10 328.95 / 328.95 Lab / Micro Data Attestation: I reviewed the patient's lab results. 09/28/24 04:57 09/28/24 04:57 Labs: Laboratory Results - last 24 hr 09/27/24 06:49: Blood Type O POSITIVE, Antibody Screen NEGATIVE 09/28/24 04:57: WBC 12.1 H, RBC 3.96 L, Hgb 13.0, Hct 38.8 L, MCV 98.0 H, MCH 32.8 H, MCHC 33.5, RDW Std Deviation 44.9 H, RDW Coeff of Ar 12.4, Plt Count 158, MPV 10.0, Immature Gran % (Auto) 0.500, Neut % (Auto) 87.3 H, Lymph % (Auto) 5.7 L, [place] % (Auto) 6.3, Eos % (Auto) 0.0, Baso % (Auto) 0.2, Absolute Neuts (auto) 10.6 H, Absolute Lymphs (auto) 0.69 L, Nucleated RBC % 0, Sodium 139, Potassium 3.8, Chloride 105, Carbon Dioxide 21.4, Anion Gap 13, BUN 18, Creatinine 0.7 L, Estim Creat Clear Calc 113.02, Est GFR (MDRD) Non-Af 104, BUN/Creatinine Ratio 27.5 H, Glucose 141 H, Calcium 8.0 ABG Data ABG results: ABG 09/27/24 09/27/24 09/27/24 08:11 22:00 22:05 Specimen Type ART ART Cancelled Sample Site R Brach L RADIAL Cancelled pH 7.36 7.29 L Bicarbonate Actual 23.9 23.6 Total CO2 Base Excess -2 -3 L O2 Saturation 93 L 91 L O2 % 50.0 50.0 Cancelled ABG pCO2 41.9 48.7 H ABG pO2 70 L 67 L Melo Test POS VBG pH Cancelled VBG pH (Temp Correct) Cancelled VBG pCO2 (Temp Corrct Cancelled VBG pO2 Cancelled VBG HCO3 Cancelled VBG Total CO2 Cancelled VBG O2 Sat (Calc) Cancelled VBG Base Excess Cancelled POC Mix VBG pCO2 Pt Tmp Cancelled Respiration Rate 12 Cancelled O2 Delivery Device Venti Mask Vent Cancelled Liter Flow Cancelled Minute Volume Cancelled Vent Mode Not entered A-C Inspiratory Time Cancelled Expiratory Time Cancelled Tidal Volume 500.0 Cancelled Mean Airway Pressure Cancelled POC PEEP 5 Cancelled Peak Inspir Pressure Cancelled POC Pressure Suppt Cancelled Pressure Control Cancelled EPAP Cancelled IPAP Cancelled Blood Gas Comments Cancelled Crit Call To/Read Back Cancelled Blood Gas Notified Whom Cancelled Blood Gas Notified Time Cancelled Clinical Comments Cancelled 09/28/24 06:02 Specimen Type ART Sample Site L Radial pH 7.37 Bicarbonate Actual 23.2 Total CO2 24 Base Excess -2 O2 Saturation 90 L O2 % 30.0 ABG pCO2 40.5 ABG pO2 60 L Melo Test Positive VBG pH VBG pH (Temp Correct) VBG pCO2 (Temp Corrct VBG pO2 VBG HCO3 VBG Total CO2 VBG O2 Sat (Calc) VBG Base Excess POC Mix VBG pCO2 Pt Tmp Respiration Rate 12 O2 Delivery Device Adult Vent Liter Flow Minute Volume Vent Mode AC Inspiratory Time Expiratory Time Tidal Volume 500.0 Mean Airway Pressure POC PEEP 5 Peak Inspir Pressure POC Pressure Suppt Pressure Control EPAP IPAP Blood Gas Comments Crit Call To/Read Back Blood Gas Notified Whom Blood Gas Notified Time Clinical Comments Radiography Diagnostic Testing: Radiology Impression Hip X-Ray 09/27/24 21:00 IMPRESSION: 4 intraoperative spot views with fully locked intramedullary gamma nail as above Reading Location: [facility] Chest X-Ray 09/27/24 22:15 IMPRESSION: Support devices above. Pulmonary findings as above. Reading Location: [id number] Hip/Pelvis X-Ray 09/27/24 22:15 IMPRESSION: Right femoral internal fixation spanning an intertrochanteric fracture now near anatomic alignment. Reading Location: [id number] Physical Exam Const Constitutional Narrative: Intubated and mechanically ventilated. Currently tolerating spontaneous mode of mechanical ventilation. HEENT normocephalic and head/scalp atraumatic Mouth: endotracheal tube in place Eyes PERRL, EOMs intact bilaterally and conjunctivae normal Neck supple General: trachea midline Chest inspection of chest normal Resp Auscultation: diminished lung sounds; Negative for rales, rhonchi or wheezes Cardio regular rate and regular rhythm GI normal to inspection, nondistended, normoactive bowel sounds Extremity no clubbing, cyanosis or edema Skin no rashes or lesions noted Neuro Neuro Narrative: Alert able to follow simple commands. Tremors involving upper extremities. Charges/Coding Procedures Hospitalists Procedures: [id number] Critical Care 1st Hr
[2024-09-28 10:14] LABS: CPK Total, Creatine Kinase 197 U/L (24-195); Triglycerides 321 mg/dL
[2024-09-28] MEDS: Famotidine 200 MG/20 ML MDV 20 MG in 0.9% Normal Saline (Pres. free 8 ML 300 MG IV (10:54)
[2024-09-28] MEDS: oxyCODONE 5 MG Tablet GT ×3 (11:02→19:30)
[2024-09-28] MEDS: Ketorolac 15 MG/ML Vial IV ×2 (11:02→18:45)
[2024-09-28] MEDS: Senna/Docusate Sodium 1 Tablet 2 TABLET GT (11:02)
[2024-09-28] MEDS: Multivitamins,Therapeutic Tablet 1 TABLET GT (11:03)
--- NOTE | 2024-09-28 14:04 | CASEMGMT ---
Social Work SW attempted to meet with pt and to discuss discharge plan. SW entered room, pt crying. Pt denied need for assist at this time and requested SW return later. SW returned to pt room. had left. SW attempted to speak with pt regarding dc plan and need for SNF at time of dc. Pt is agreeable that SNF will be needed. Pt crying and requesting that SW not expect a decision on facility today. Pt refusing to speak with SW regarding tearfulness and politely requesting to be left alone. SW left list of SNF providers with pt and informed pt SW will return tomorrow for choices and that SW if available if pt would like to talk. SW to follow up tomorrow. YASMEEN Martin
[2024-09-28] MEDS: Senna/Docusate Sodium 1 Tablet 2 TABLET PO (22:48)
[2024-09-28] MEDS: Mirtazapine 15 MG Tablet PO (22:49)
[2024-09-28] MEDS: cycloBENZAPRine HCl 5 MG TABLET PO (22:49)
[2024-09-29] VITALS (12 sets, daily range): BP systolic 122–151; BP diastolic 69–90; PULSE 66–97; RESP 14–20; TEMP 36.4–37.3; O2SAT 93–104; BMI 27.2
[2024-09-29 04:10] LABS: Absolute Lymphocyte Count 0.66 X10^3/uL (0.83-4.51); Absolute Neutrophil Count 11.6 X10^3/uL (2.0-7.7); Basophil# 0.01 X10^3/uL; Basophil% 0.1 % (0-1); Hematocrit 36.6 % (40-54); Hemoglobin 12.2 g/dL (13.0-16.5); Lymphocyte # 0.66 X10^3/ul (0.83-4.51); Lymphocyte % 5.1 % (19-41); Mean Corp Hgb Conc 33.3 g/dL (32-36); Mean Corpuscular Hgb 32.3 pg (27.0-32.0); Mean Corpuscular Volume 96.8 fL (80-94); Mean Platelet Vol. 10.1 fl (6.2-12.0); Monocyte# 0.71 X10^3/uL; Monocyte% 5.5 % (0-10); NRBC Flagged by Analyzer 0 % (0-5); Neutrophil # 11.59 X10^3/uL (2.7-7.7); Neutrophil % 88.9 % (47-70); Platelet Count 183 K/mm3 (150-450); RBC Distribution Width CV 12.8 % (11.6-14.6); RBC Distribution Width SD 45.6 fl (35.1-43.9); Red Blood Count 3.78 M/mm3 (4.6-6.2)
[2024-09-29 04:52] LABS: BUN 25 mg/dL (4-19); BUN/Creat Ratio 39.5 RATIO (10-20); Creatinine, Serum 0.6 mg/dL (0.8-1.3); EST Glomerular Filtration Rate 105 (>60); Estimated Creatinine Clearance 113.02 ml/min; Glucose 143 mg/dL (70-99)
[2024-09-29] MEDS: Ampicillin/Sulbactam 3 GM in 0.9% Normal Saline (100mL MB+) 100 ML IV ×2 (05:37→12:08)
[2024-09-29] MEDS: Ketorolac 15 MG/ML Vial IV ×2 (05:39→12:15)
[2024-09-29] MEDS: Rivaroxaban 10 MG Tablet PO (05:39)
[2024-09-29] MEDS: cycloBENZAPRine HCl 5 MG TABLET PO ×3 (05:39→20:42)
[2024-09-29 06:20] LABS: Calcium,Total 8.5 mg/dL (7.6-11.0)
[2024-09-29 06:21] LABS: Anion Gap 11 (5-15); Carbon Dioxide 21.9 mmol/L (21.0-32.0); Chloride 107 mmol/L (98-107); Potassium 4.2 mmol/L (3.5-5.1); Sodium Level 140 mmol/L (136-145)
--- NOTE | 2024-09-29 07:26 | PN.ORTHO_ITS ---
Subjective Subjective Patient is lying comfortably in bed. Patient has extubated. Patient has worked with physical therapy. Patient states that his pain is adequately controlled. Patient denies any nausea, vomiting, dizziness. Patient denies any new numbness or tingling. Patient denies any shortness of breath, chest pain, calf pain. Patient denies any fever, chills, signs of infection. Patient denies any adverse events overnight. Objective Data Objective Data Vital Signs: Vital Signs Temp Pulse Resp BP Pulse Ox O2 Del Method O2 Flow Rate 98.3 F 76 19 H 148/81 H 104 Nasal Cannula 3 09/29/24 06:00 09/29/24 06:00 09/29/24 06:00 09/29/24 06:00 09/29/24 06:00 09/29/24 06:00 09/29/24 06:00 FiO2 30 09/28/24 08:00 Oxygen Flow Rate (L/min) 3 Oxygen Delivery Method Nasal Cannula Weight: 101.4 kg Body Mass Index (BMI) 27.2 Intake & Output: Intake and Output for Last 24 Hours 09/27/24 09/28/24 09/29/24 23:59 23:59 23:59 Intake Total 518.12 / 525.90 1382.25 / 1382.25 112 / 112 Output Total 1625 / 1625 1150 / 1150 300 / 300 Balance -1106.88 / -1099.10 232.25 / 232.25 -188 / -188 Lab / Micro Data 09/29/24 03:49 09/29/24 03:49 Labs: Laboratory Results - last 24 hr 09/28/24 04:57: Total Creatine Kinase 197 H, Triglycerides 321 H 09/29/24 03:49: WBC 13.0 H, RBC 3.78 L, Hgb 12.2 L, Hct 36.6 L, MCV 96.8 H, MCH 32.3 H, MCHC 33.3, RDW Std Deviation 45.6 H, RDW Coeff of Ar 12.8, Plt Count 183, MPV 10.1, Immature Gran % (Auto) 0.400, Neut % (Auto) 88.9 H, Lymph % (Auto) 5.1 L, [place] % (Auto) 5.5, Eos % (Auto) 0.0, Baso % (Auto) 0.1, Absolute Neuts (auto) 11.6 H, Absolute Lymphs (auto) 0.66 L, Nucleated RBC % 0, Sodium 140, Potassium 4.2, Chloride 107, Carbon Dioxide 21.9, Anion Gap 11, BUN 25 H, C reatinine 0.6 L, Estim Creat Clear Calc 113.02, Est GFR (MDRD) Non-Af 105, B UN/Creatinine Ratio 39.5 H, Glucose 143 H, Calcium 8.5 Physical Exam Narrative 1. EVAN hose in place bilaterally. 2. SCDs in place bilaterally. 3. Proximal dressing is with minimal drainage in the middle one third of dressing. Distal dressing is clean dry and intact. 4. Right hip is soft and supple. 5. Dorsiflexion and plantarflexion are performed on the left. Patient was not able to perform dorsiflexion or plantarflexion on the right due to previous fall which resulted in foot drop on the right. 6. Sensation is intact to light touch. 7. Neurovascularly intact overall. 8. Note negative Homans bilaterally. Const alert, oriented x3 and no apparent distress Assessment & Plan Assessment/Plan (1) Fracture, intertrochanteric, right femur: PLAN: Postop day 2 right hip cephalomedullary nail 1. DVT prophylaxis: Have recommended Xarelto 10 mg daily for 2 weeks followed by aspirin 81 mg p.o. twice daily for 2 weeks. It has also been recommended that patient do EVAN hose and SCDs for 2 weeks postoperatively. 2. Pain medications: Patient states that his pain is adequately controlled at this time. Will continue current pain regimen managed by primary care team. 3. Medical management: Will be managed by primary care team at this time. 4. Physical therapy: Patient is currently weightbearing as tolerated with walker on the right side. Patient is to continue working with physical therapy. Patient can increase activity as tolerated once deemed appropriate by primary care team. 5. Incentive spirometry: Patient was encouraged to use the incentive spirometer every hour that awake for the first week to exercise lung and decrease risk of postoperative lung infection. 6. Patient is to follow-up per postoperative instructions. Patient will have a follow-up appointment in 2 weeks for evaluation. 7. Dressings: Patient can remove dressings on day 5 postop if incision is clean dry and intact. Patient is able to shower directly over top of incisions following removal of dressings as long as clean dry and intact. If incisions are with drainage patient is to do dry dressing changes daily. 8. Patient is okay for discharge from an orthopedic standpoint as long as pain maintains adequately controlled, continues to work with and tolerates physical therapy, and per primary care team.
--- NOTE | 2024-09-29 07:51 | PN.CC_ITS ---
Assessment & Plan Assessment/Plan (1) Uvular swelling: PLAN: Plan RECOMMENDATIONS: 1. Continue to wean supplemental oxygen to maintain saturations at or above 90%. 2. Okay to discontinue antimicrobials, steroids and Pepcid. 3. Encourage incentive spirometer use and mobilize patient as tolerated. 4. Will sign off from a critical care perspective. Please call with any additional questions. IMPRESSIONS: 1. Uvula enlargement with resultant respiratory failure Resolved. The patient developed the sensation of difficulty swallowing and dyspnea with CT imaging of the neck demonstrated an enlarged uvula with narrowing of the oropharynx, concerning for uvulitis, abscess or mass. The patient received Benadryl and IV steroids. He was subsequently moved to the medical intensive care unit for close monitoring of his airway. While the patient remained clinically stable from a respiratory perspective, he was subsequently intubated by anesthesia to help facilitate surgical intervention of his hip fracture. He was ultimately able to be successfully extubated on September 28. There does not appear to be any residual swelling involving his posterior oropharynx. Therefore, I am going to plan to discontinue antimicrobials, steroids and Pepcid. Supplemental oxygen can be weaned to maintain saturations at or above 90%. 2. Hip fracture The patient is postoperative day #2 status post right hip cephalomedullary nail. Continue routine postoperative care per orthopedic surgery recommendations. 3. History of Parkinson's disease/chronic marijuana use/obstructive sleep apnea Complicates care, management, recovery and prognosis. Continue supportive care as noted above. This note was generated with [employer] dictation software. It may contain incorrect words, spelling, and punctuation that were not noted in checking the note before signing. Subjective Subjective The patient was seen and examined at the bedside this morning. Events from the last 24 hours have been reviewed. The patient is currently afebrile, hemodynamically stable and maintaining appropriate oxygen saturations on 2 L/min via nasal cannula. The patient has done well from a respiratory perspective following extubation. Given that I do not appreciate any swelling involving his posterior oropharynx, the patient steroids and Pepcid were discontinued. Objective Data Objective Data The patient's most recent lab work, culture data and imaging studies have all been personally reviewed. Vital Signs: Vital Signs Temp Pulse Resp BP Pulse Ox O2 Del Method O2 Flow Rate 98.3 F 76 19 H 148/81 H 104 Nasal Cannula 3 09/29/24 06:00 09/29/24 06:00 09/29/24 06:00 09/29/24 06:00 09/29/24 06:00 09/29/24 06:00 09/29/24 06:00 FiO2 30 09/28/24 08:00 Oxygen Flow Rate (L/min) 3 Oxygen Delivery Method Nasal Cannula Weight: 223 lb 8.78 oz Body Mass Index (BMI) 27.2 Intake & Output: Intake and Output for Last 24 Hours 09/27/24 09/28/24 09/29/24 23:59 23:59 23:59 Intake Total 518.12 / 525.90 1382.25 / 1382.25 112 / 112 Output Total 1625 / 1625 1150 / 1150 300 / 300 Balance -1106.88 / -1099.10 232.25 / 232.25 -188 / -188 Lab / Micro Data Attestation: I reviewed the patient's lab results. 09/29/24 03:49 09/29/24 03:49 Labs: Laboratory Results - last 24 hr 09/28/24 04:57: Total Creatine Kinase 197 H, Triglycerides 321 H 09/29/24 03:49: WBC 13.0 H, RBC 3.78 L, Hgb 12.2 L, Hct 36.6 L, MCV 96.8 H, MCH 32.3 H, MCHC 33.3, RDW Std Deviation 45.6 H, RDW Coeff of Ar 12.8, Plt Count 183, MPV 10.1, Immature Gran % (Auto) 0.400, Neut % (Auto) 88.9 H, Lymph % (Auto) 5.1 L, Wagoner % (Auto) 5.5, Eos % (Auto) 0.0, Baso % (Auto) 0.1, Absolute Neuts (auto) 11.6 H, Absolute Lymphs (auto) 0.66 L, Nucleated RBC % 0, Sodium 140, Potassium 4.2, Chloride 107, Carbon Dioxide 21.9, Anion Gap 11, BUN 25 H, C reatinine 0.6 L, Estim Creat Clear Calc 113.02, Est GFR (MDRD) Non-Af 105, B UN/Creatinine Ratio 39.5 H, Glucose 143 H, Calcium 8.5 ABG Data ABG results: ABG 09/27/24 09/27/24 09/27/24 08:11 22:00 22:05 Specimen Type ART ART Cancelled Sample Site R Brach L RADIAL Cancelled pH 7.36 7.29 L Bicarbonate Actual 23.9 23.6 Total CO2 25 25 Base Excess -2 -3 L O2 Saturation 93 L 91 L O2 % 50.0 50.0 Cancelled ABG pCO2 41.9 48.7 H ABG pO2 70 L 67 L Melo Test POS VBG pH Cancelled VBG pH (Temp Correct) Cancelled VBG pCO2 (Temp Corrct Cancelled VBG pO2 Cancelled VBG HCO3 Cancelled VBG Total CO2 Cancelled VBG O2 Sat (Calc) Cancelled VBG Base Excess Cancelled POC Mix VBG pCO2 Pt Tmp Cancelled Respiration Rate 12 Cancelled O2 Delivery Device Venti Mask Vent Cancelled Liter Flow Cancelled Minute Volume Cancelled Vent Mode Not entered A-C Inspiratory Time Cancelled Expiratory Time Cancelled Tidal Volume 500.0 Cancelled Mean Airway Pressure Cancelled POC PEEP 5 Cancelled Peak Inspir Pressure Cancelled POC Pressure Suppt Cancelled Pressure Control Cancelled EPAP Cancelled IPAP Cancelled Blood Gas Comments Cancelled Crit Call To/Read Back Cancelled Blood Gas Notified Whom Cancelled Blood Gas Notified Time Cancelled Clinical Comments Cancelled 09/28/24 06:02 Specimen Type ART Sample Site L Radial pH 7.37 Bicarbonate Actual 23.2 Total CO2 24 Base Excess -2 O2 Saturation 90 L O2 % 30.0 ABG pCO2 40.5 ABG pO2 60 L Melo Test Positive VBG pH VBG pH (Temp Correct) VBG pCO2 (Temp Corrct VBG pO2 VBG HCO3 VBG Total CO2 VBG O2 Sat (Calc) VBG Base Excess POC Mix VBG pCO2 Pt Tmp Respiration Rate 12 O2 Delivery Device Adult Vent Liter Flow Minute Volume Vent Mode AC Inspiratory Time Expiratory Time Tidal Volume 500.0 Mean Airway Pressure POC PEEP 5 Peak Inspir Pressure POC Pressure Suppt Pressure Control EPAP IPAP Blood Gas Comments Crit Call To/Read Back Blood Gas Notified Whom Blood Gas Notified Time Clinical Comments Radiography Diagnostic Testing: Radiology Impression Hip X-Ray 09/27/24 21:00 IMPRESSION: 4 intraoperative spot views with fully locked intramedullary gamma nail as above Reading Location: [id number] Chest X-Ray 09/27/24 22:15 IMPRESSION: Support devices above. Pulmonary findings as above. Reading Location: [id number] Hip/Pelvis X-Ray 09/27/24 22:15 IMPRESSION: Right femoral internal fixation spanning an intertrochanteric fracture now near anatomic alignment. Reading Location: [id number] Physical Exam Const alert and no apparent distress Constitutional Narrative: is present at the bedside. General Appearance: cooperative HEENT normocephalic, head/scalp atraumatic and moist oral mucous membranes HEENT Narrative: There is no significant swelling involving the posterior oropharynx. Eyes PERRL, EOMs intact bilaterally and conjunctivae normal Neck supple General: trachea midline Chest inspection of chest normal Resp Auscultation: diminished lung sounds; Negative for rales, rhonchi or wheezes Cardio regular rate and regular rhythm GI normal to inspection, nondistended, normoactive bowel sounds Extremity no clubbing, cyanosis or edema Skin no rashes or lesions noted Neuro CN's II-XII intact bilaterally, moves all extremities and no focal motor deficits Neuro Narrative: Tremors involving upper extremities. Psych cooperative and affect normal Charges/Coding Visit Charges Inpatient E&M: 37454 Subs Hosp L2
--- NOTE | 2024-09-29 08:01 | PCM.PN.HOSP ---
Reason for Visit Reason for Visit: Right hip pain Subjective Subjective Patient was extubated yesterday. Doing well and on 3 L nasal cannula. Is not oxygen dependent at home. Agreeable to SNF placement at discharge. Has not seen therapy yet today. No specific complaints. Pain is fairly well-controlled with current medications. States throat feels fine today. Objective Data Objective Data Vital Signs: Vital Signs Temp Pulse Resp BP Pulse Ox O2 Del Method O2 Flow Rate 98.3 F 76 19 H 148/81 H 104 Nasal Cannula 3 09/29/24 06:00 09/29/24 06:00 09/29/24 06:00 09/29/24 06:00 09/29/24 06:00 09/29/24 06:00 09/29/24 06:00 FiO2 30 09/28/24 08:00 Oxygen Flow Rate (L/min) 3 Oxygen Delivery Method Nasal Cannula Weight: 101.4 kg Body Mass Index (BMI) 27.2 Intake & Output: Intake and Output for Last 24 Hours 09/27/24 09/28/24 09/29/24 23:59 23:59 23:59 Intake Total 518.12 / 525.90 1382.25 / 1382.25 112 / 112 Output Total 1625 / 1625 1150 / 1150 300 / 300 Balance -1106.88 / -1099.10 232.25 / 232.25 -188 / -188 Lab / Micro Data 09/29/24 03:49 09/29/24 03:49 Labs: Laboratory Results - last 24 hr 09/28/24 04:57: Total Creatine Kinase 197 H, Triglycerides 321 H 09/29/24 03:49: WBC 13.0 H, RBC 3.78 L, Hgb 12.2 L, Hct 36.6 L, MCV 96.8 H, MCH 32.3 H, MCHC 33.3, RDW Std Deviation 45.6 H, RDW Coeff of Ar 12.8, Plt Count 183, MPV 10.1, Immature Gran % (Auto) 0.400, Neut % (Auto) 88.9 H, Lymph % (Auto) 5.1 L, [place] % (Auto) 5.5, Eos % (Auto) 0.0, Baso % (Auto) 0.1, Absolute Neuts (auto) 11.6 H, Absolute Lymphs (auto) 0.66 L, Nucleated RBC % 0, Sodium 140, Potassium 4.2, Chloride 107, Carbon Dioxide 21.9, Anion Gap 11, BUN 25 H, Creatinine 0.6 L, Estim Creat Clear Calc 113.02, Est GFR (MDRD) Non-Af 105, BUN/Creatinine Ratio 39.5 H, Glucose 143 H, Calcium 8.5 Physical Exam Const alert, oriented x3, no apparent distress, average body habitus and well nourished; Negative for healthy appearing Constitutional Narrative: Overweight, older, white male, sitting up in bed watching television, at bedside, nursing at bedside, appears comfortable, nontoxic, currently appears stable on 3 L nasal cannula HEENT normocephalic, head/scalp atraumatic and moist oral mucous membranes HEENT Narrative: Mallampati 2-3, no thrush, dentition is fair Eyes Eyes Narrative: Pupils are pinpoint Neck Neck Narrative: No lymphadenopathy or pain noted with palpation to the anterior neck Resp normal respiratory effort, no retractions, no use of accessory muscles and No clear to auscultation bilaterally Resp Narrative: Few crackles at bases bilaterally Auscultation: crackles; Negative for rales, rhonchi or wheezes Cardio regular rate, regular rhythm, S1 normal heart sound, S2 normal heart sound, no murmurs, no rub, no gallops and no clicks GI normal to inspection, nondistended, normoactive bowel sounds, soft to palpation and non-tender Extremity no clubbing, cyanosis or edema Extremity Narrative: Bilateral lower extremity EVAN hose in place. Postoperative dressing noted on right hip is clean dry and intact Neuro oriented x3 and no focal motor deficits Neuro Narrative: Vocal quality is normal Speech: speech normal Psych affect normal Psych Narrative: Interacts appropriately, eye contact is good Assessment & Plan Assessment/Plan (1) Fracture, intertrochanteric, right femur: (2) Uvular swelling: (3) Acute respiratory failure: PLAN: Plan Uvular enlargements with resultant acute respiratory failure -Extubated on 09/28/2024 and tolerating well -Currently on 3 L nasal cannula -Give Lasix 40 mg IV push x 1 dose and wean oxygen as patient is not oxygen dependent at home -No throat symptoms today so we will discontinue steroids, antibiotics, and H2 blockers Right hip fracture -Postop day 2 from cephalomedullary nail -Plan DVT prophylaxis Xarelto 10 mg daily x 2 weeks followed by aspirin 81 mg twice daily for 2 weeks, SCDs -Weightbearing as tolerated with physical therapy -Continue current pain management -Dressing is to remain on for 5 days postoperatively and change of dry and alena to be removed postop day 14 -Plan for outpatient follow-up in 2 weeks -Orthopedic surgery has signed off Leukocytosis -Suspect reactive postoperatively and related to steroids -Steroids discontinued so we will trend -Will trend Mild postoperative anemia -Hemoglobin was 13 and now 12.2 today without any obvious signs of bleeding -Repeat lab in a.m. for stability Parkinson's disease -Patient has not tolerated Sinemet due to hallucinations previously -Continue supportive care -Patient does have resting tremor on exam Steroid-induced hyperglycemia -Fasting blood sugar this morning 143 -Steroids being discontinued -Will repeat in a.m. and expect slow transition back to normal blood sugars as patient is not diabetic at baseline Chronic pain -Patient uses medical marijuana MADDIE -Patient reports today he is compliant with his CPAP -CPAP tonight Depression -Continue home mirtazapine DVT prophylaxis -Xarelto as ordered by orthopedic surgery CODE STATUS -Full code as verified at the time of admission Disposition: -Patient is medically stable for discharge and will need placement. Referral was sent to the transitional care unit and awaiting acceptance--> will also need pre-CERT prior to discharge Charges/Coding Visit Charges Inpatient E&M: 38110 Subs Hosp L2
[2024-09-29] MEDS: Senna/Docusate Sodium 1 Tablet 2 TABLET PO ×2 (09:18→20:42)
[2024-09-29] MEDS: Multivitamins,Therapeutic Tablet 1 TABLET PO (09:18)
[2024-09-29] MEDS: 0.9% Saline Lock 10 ML Syringe IV ×2 (09:19→12:09)
[2024-09-29] MEDS: Famotidine 200 MG/20 ML MDV 20 MG in 0.9% Normal Saline (Pres. free 8 ML 330 MG IV (09:24)
[2024-09-29] MEDS: Furosemide 40 MG/4 ML Vial IV (09:24)
[2024-09-29] MEDS: oxyCODONE 5 MG Tablet PO ×3 (09:24→20:41)
--- NOTE | 2024-09-29 11:02 | CASEMGMT ---
Social Work SW met with pt and to discuss discharge plan. Pt is understanding that SNF is needed. Pt preferred provider is [facility]. SW requested pt and review SNF list and make additional choices in the event TCU cannot accept. Referral sent to TCU. Will await determination of acceptance. Pt will need precert prior to discharge. Plan: TCU, pending acceptance and precert YASMEEN Martin
--- NOTE | 2024-09-29 12:02 | CASEMGMT ---
Discharge Planning Per pt and his , he has not used AFO's since having them refit in 2005. Pt states that they are ill-fitting and cause skin tears/sores. They were not interested in purchasing new ones. Josselyn Carver DC Planning Asst.
--- NOTE | 2024-09-29 15:00 | CHAPLAIN ---
Type of Pastoral Visit _x__ Initial Visit ___ Follow-up Visit ___ On-call Visit ___ General Patient Visit ___ Spiritual Assessment ___ Family Conference ___ Bereavement ___ Rapid Response ___ Code Blue ___ Other (describe below) Pastoral Care Referral From _x__ Patient ___ Family ___ Nurse ___ Physician ___ Picked Edge Sewing Machine Operator ___ Per Diem Clerk ___ Other (describe below) Sacrament/Intervention _x__ Active listening ___ Anointing ___ Religion ___ Bereavement ___ Communion _x__ Angelica exploration ___ _x__ Life review _x__ Prayer ___ Reconciliation ___ Sacrament of Sick _x__ Supportive presence ___ Wedding ___ Other (describe below) Pastoral Comments patient specifically asked about a visit from this irrigation flume layer who had seen him in previous admissions; pt asks questions of this irrigation flume layer; pt explains his current situation and a more recent diagnosis of Parkinson's; pt's spouse is with him; pt's spouse acknowledges family tensions with other family members that were out in the open yesterday in the hospital; pt refers often to his angelica in God for his support and 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
--- NOTE | 2024-09-29 16:33 | CASEMGMT ---
Social Work TCU is unable to accept pt. SW met with pt and notified of that TCU cannot accept. Pt states second choice of SNF porvider is [facility]. DC mail handler assistant notified and to send referral. Plan: [facility], pending acceptance and precYASMEEN Jauregui
--- NOTE | 2024-09-29 16:49 | CASEMGMT ---
[facility] has accepted and will submit for precert. SW updated. Josselyn Carver DC Planning Asst.
[2024-09-29] MEDS: Mirtazapine 15 MG Tablet PO (20:42)
[2024-09-30 02:15] VITALS: BP 152/82; PULSE 61; RESP 18; TEMP 36.5; O2SAT 95
[2024-09-30] MEDS: cycloBENZAPRine HCl 5 MG TABLET PO (06:13)
[2024-09-30] MEDS: Rivaroxaban 10 MG Tablet PO (06:13)
[2024-09-30] MEDS: 0.9% Saline Lock 10 ML Syringe IV (06:16)
[2024-09-30] MEDS: Ketorolac 15 MG/ML Vial IV (06:16)
--- NOTE | 2024-09-30 07:21 | PCM.PN.HOSP ---
Reason for Visit Reason for Visit: Diagnoses Acute respiratory failure, unspecified whether with hypoxia or hypercapnia (09/26/24) Other lesions of oral mucosa (09/26/24) Fracture of unspecified part of neck of unspecified femur, initial encounter for closed fracture (09/26/24) Displaced intertrochanteric fracture of right femur, initial encounter for closed fracture (09/26/24) Objective Data Objective Data Vital Signs: Vital Signs Temp Pulse Resp BP Pulse Ox O2 Del Method O2 Flow Rate 97.7 F L 61 18 152/82 H 95 Room Air 1.5 09/30/24 02:15 09/30/24 02:15 09/30/24 02:15 09/30/24 02:15 09/30/24 02:15 09/30/24 02:15 09/29/24 09:46 FiO2 30 09/28/24 08:00 Oxygen Flow Rate (L/min) 1.5 Oxygen Delivery Method Room Air Weight: 101.4 kg Body Mass Index (BMI) 27.2 Intake & Output: Intake and Output for Last 24 Hours 09/28/24 09/29/24 09/30/24 23:59 23:59 23:59 Intake Total 1382.25 / 1382.25 1453.25 / 1453.25 Output Total 1150 / 1150 1300 / 1300 Balance 232.25 / 232.25 153.25 / 153.25 Lab / Micro Data 09/29/24 03:49 09/29/24 03:49
[2024-09-30 07:40] LABS: Absolute Lymphocyte Count 2.14 X10^3/uL (0.83-4.51); Absolute Neutrophil Count 7.1 X10^3/uL (2.0-7.7); Basophil# 0.01 X10^3/uL; Basophil% 0.1 % (0-1); Eosinophil# 0.01 X10^3/uL; Eosinophils% 0.1 % (0-5); Hematocrit 35.8 % (40-54); Hemoglobin 12.3 g/dL (13.0-16.5); Lymphocyte # 2.14 X10^3/ul (0.83-4.51); Lymphocyte % 20.8 % (19-41); Mean Corp Hgb Conc 34.4 g/dL (32-36); Mean Corpuscular Hgb 33.2 pg (27.0-32.0); Mean Corpuscular Volume 96.8 fL (80-94); Mean Platelet Vol. 10.3 fl (6.2-12.0); Monocyte% 9.7 % (0-10); NRBC Flagged by Analyzer 0 % (0-5); Neutrophil # 7.09 X10^3/uL (2.7-7.7); Neutrophil % 68.8 % (47-70); Platelet Count 179 K/mm3 (150-450); RBC Distribution Width CV 12.8 % (11.6-14.6); RBC Distribution Width SD 45.6 fl (35.1-43.9); White Blood Count 10.3 K/mm3 (4.4-11.0)
--- NOTE | 2024-09-30 07:59 | CASEMGMT ---
[facility] has obtained auth to admit. Josselyn Carver DC Planning Asst.
[2024-09-30 08:15] VITALS: BP 168/90; PULSE 87; RESP 18; TEMP 36.8; O2SAT 93
[2024-09-30] MEDS: Multivitamins,Therapeutic Tablet 1 TABLET PO (08:16)
[2024-09-30] MEDS: Senna/Docusate Sodium 1 Tablet 2 TABLET PO (08:16)
[2024-09-30] MEDS: oxyCODONE 5 MG Tablet PO (08:18)
[2024-09-30] MEDS: Losartan Potassium 50 MG Tablet PO (08:19)
--- NOTE | 2024-09-30 09:41 | CASEMGMT ---
Social Work SW met w/pt, let him know we got precert for [facility]. Pt states understanding, agreeable. SW let Dr. Bravo know. BRADFORD Morales
--- NOTE | 2024-09-30 10:59 | PCM.TXEXTCAR ---
Diet Diet Order/Speech Therapy: 09/28/24 11:39 Diet: Regular - General Routine Orders/Code Status Suppository Frequency: Daily PRN Routine Lab Work: CBC (1 week) and BMP (1 week) Code Status: Full Code DC O2, CPAP, BIPAP needs Home O2 Discharge instructions: No Wound(s) Right Hip: Wound Type: Surgical Incision (Change postoperative dressing in 5 days and alena to be removed postop day 14) Suggestions for Active Care Change Position every (hours): 2 Hours to sit in a chair: 3 Times a day to sit in chair: 2 Therapies Weight Bearing: Weight bearing as tolerated Extremity Affected:: Right Lower Physical Therapy: Eval and Treat Occupational Therapy: Eval and Treat Problem/Diagnosis (1) Fracture, intertrochanteric, right femur: Status: Acute Code(s): S72.141A - Displaced intertrochanteric fracture of right femur, initial encounter for closed fracture (2) Uvular swelling: Status: Acute Code(s): K13.79 - Other lesions of oral mucosa (3) Acute respiratory failure: Status: Acute Code(s): J96.00 - Acute respiratory failure, unspecified whether with hypoxia or hypercapnia Allergies/Procedures Done in Hospital Allergies hydroxyzine (From Vistaril) Allergy (Severe, Verified 09/26/24 15:23) Vomiting niacin Allergy (Severe, Verified 09/26/24 15:23) Vomiting carbidopa (From Sinemet) Allergy (Mild, Verified 09/26/24 15:23) Abd cramps/diarrhea levodopa (From Sinemet) Allergy (Mild, Verified 09/26/24 15:23) Abd cramps/diarrhea acetaminophen Adverse Reaction (Severe, Verified 09/26/24 15:23) Nausea/Vom/Diarrhea fentanyl (From Duragesic) Adverse Reaction (Severe, Verified 09/26/24 15:23) Nausea/Vom/Diarrhea metoclopramide HCl (From Reglan) Adverse Reaction (Verified 09/26/24 15:23) anxiety nabumetone (From Relafen) Adverse Reaction (Verified 09/26/24 15:23) Nausea/Vom/Diarrhea Procedures: EKG, Intubation and - (Chest x-ray/CT of soft tissue neck/multiple hip and pelvic x-rays) Type of Care/Length of Stay Estimated LOS: Convalescent Care Less Than 30 days Type of Care Needed: Skilled Rehab Potential: Good Prognosis: Fair Additional Orders/Day of Discharge Day of Discharge: 09/30/24 Dietary and Speech Recommendations Dietitian Recommendations/Changes: Recommend advanced diet as tolerated to regular diet per JUNIOR STAFF ACCOUNTANT consistency/texture recommendations. PO needs to be established, as diet is advanced. Will monitor weight trends. Follow Up Care Please follow up with your Primary Care Physician in: 1 week after discharge from skilled facility Please Follow Up With: Elijah Mac MD When: 2 weeks postoperatively Discharge Plan Admission Admit Date/Time: 09/26/24 19:17 Attending Provider: Shanon Bravo Primary Care Provider: Aleshia Marino Consulting Providers: Jean Claude Luther; Tricia Taylor; Elijah Mac Discharge Orders/Prescriptions Prescriptions: No Action multivitamin Tablet 1 tab PO QDAY (DME) handicap placard See Rx Instructions .ROUTE .MEDSUPPLY Qty: 1 0RF Rx Instructions: Length of time: 5 years Diagnosis: Impaired physical mobility Z74.09 (DME) Blood Pressure Cuff Misc See Rx Instructions .Route Qty: 1 0RF Rx Instructions: As directed mirtazapine 15 mg tablet 15 mg PO QHS cyclobenzaprine 5 mg tablet 5 mg PO TID (DME) MEDICAL MARIJUANA (INFORMATIONAL USE ONLY-PT USES MEDICAL MARIJUANA Edible See Rx Instructions .ROUTE Patient Comments: USED TODAY Rx Instructions: As directed Referrals / Follow Up: Aleshia Marino MD [Primary Care Provider] -
--- NOTE | 2024-09-30 11:01 | DS.PCM_ITS ---
Providers Date of Admission: 09/26/24 Primary Care Physician: Dr. Aleshia Marino MD Consultations 09/26/24 21:00 Consult: Orthopedics Routine Consulting Provider: Elijah Mac Reason for Consult: right hip fxr EMERGENT Consult: No Notified: Yes Date Notified: 09/26/24 Time Notified: 19:20 Method of Notification: ED Physician Initiated 09/28/24 04:33 Consult: Clip On Sunglasses Inspector / Pulmonary Medicine Routine Consulting Provider: Intensivists/Pulmonary Med Reason for Consult: vent management EMERGENT Consult: No Notified: Yes Date Notified: 09/28/24 Time Notified: 04:33 Method of Notification: Text Reason For Visit: RIGHT HIP FRACTURE Diagnosis Discharge Diagnosis (1) Fracture, intertrochanteric, right femur: Status: Acute Code(s): S72.141A - Displaced intertrochanteric fracture of right femur, initial encounter for closed fracture (2) Uvular swelling: Status: Acute Code(s): K13.79 - Other lesions of oral mucosa (3) Acute respiratory failure: Status: Acute Code(s): J96.00 - Acute respiratory failure, unspecified whether with hypoxia or hypercapnia Plan Uvular enlargements with resultant acute respiratory failure -Extubated on 09/28/2024 and tolerating well -Currently on 3 L nasal cannula -Give Lasix 40 mg IV push x 1 dose and wean oxygen as patient is not oxygen dependent at home -No throat symptoms today so we will discontinue steroids, antibiotics, and H2 blockers Right hip fracture -Postop day 2 from cephalomedullary nail -Plan DVT prophylaxis Xarelto 10 mg daily x 2 weeks followed by aspirin 81 mg twice daily for 2 weeks, SCDs -Weightbearing as tolerated with physical therapy -Continue current pain management -Dressing is to remain on for 5 days postoperatively and change of dry and alena to be removed postop day 14 -Plan for outpatient follow-up in 2 weeks -Orthopedic surgery has signed off Leukocytosis -Suspect reactive postoperatively and related to steroids -Steroids discontinued so we will trend -Will trend Mild postoperative anemia -Hemoglobin was 13 and now 12.2 today without any obvious signs of bleeding -Repeat lab in a.m. for stability Parkinson's disease -Patient has not tolerated Sinemet due to hallucinations previously -Continue supportive care -Patient does have resting tremor on exam Steroid-induced hyperglycemia -Fasting blood sugar this morning 143 -Steroids being discontinued -Will repeat in a.m. and expect slow transition back to normal blood sugars as patient is not diabetic at baseline Chronic pain -Patient uses medical marijuana MADDIE -Patient reports today he is compliant with his CPAP -CPAP tonight Depression -Continue home mirtazapine DVT prophylaxis -Xarelto as ordered by orthopedic surgery CODE STATUS -Full code as verified at the time of admission Disposition: -Patient is medically stable for discharge and will need placement. Referral was sent to the transitional care unit and awaiting acceptance--> will also need pre-CERT prior to discharge Medications at Discharge Home Medications handicap placard #1 ea 08/16/24 miscellaneous medical supply (Blood Pressure Cuff) #1 ea 08/16/24 multivitamin 1 tab PO QDAY 08/16/24 MEDICAL MARIJUANA (INFORMATIONAL USE ONLY-PT USES MEDICAL MARIJUANA 09/26/24 cyclobenzaprine 5 mg tablet 5 mg PO TID 09/26/24 mirtazapine 15 mg tablet 15 mg PO QHS 09/26/24 aspirin 81 mg capsule 81 mg PO BID #1 cap 09/30/24 losartan 50 mg tablet 50 mg PO DAILY #0 tabs 09/30/24 oxycodone 5 mg tablet 5 mg PO Q4H PRN PRN Pain Score 4-10 1 day #6 tabs 09/30/24 rivaroxaban 10 mg tablet (Xarelto) 10 mg PO DAILY@0600 #0 tabs 09/30/24 sennosides 8.6 mg-docusate sodium 50 mg tablet (Stimulant Laxative Plus) 2 tab PO BID #0 tabs 09/30/24 Weight / BMI Weight Weight: 101.4 kg Body Mass Index (BMI) 27.2 ABG / Lab / Microbiology Data 09/30/24 07:20 09/30/24 07:20 Laboratory: Laboratory Results - last 24 hr 09/30/24 07:20: WBC 10.3, RBC 3.70 L, Hgb 12.3 L, Hct 35.8 L, MCV 96.8 H, MCH 33.2 H, MCHC 34.4, RDW Std Deviation 45.6 H, RDW Coeff of Ar 12.8, Plt Count 179, MPV 10.3, Immature Gran % (Auto) 0.500, Neut % (Auto) 68.8, Lymph % (Auto) 20.8, [place] % (Auto) 9.7, Eos % (Auto) 0.1, Baso % (Auto) 0.1, Absolute Neuts (auto) 7.1, Absolute Lymphs (auto) 2.14, Nucleated RBC % 0, BUN 29 H, Creatinine 0.70, Estim Creat Clear Calc 113.02, Est GFR (MDRD) Non-Af 102, BUN/Creatinine Ratio 41.1 H, Glucose 102 H D/C Instructions DC O2, CPAP, BIPAP Needs PSN CPAP & BiPAP: BiPAP & CPAP Settings per PSN Fraction of Inspired Oxygen ( 09/28/24 08:00 FIO2) Home O2 Discharge instructions: No Please Follow Up With: Elijah Mac MD Meaningful Use Info Ischemic Stroke Statin Dosing Therapy Reference: STATIN DOSE THERAPY REFERENCE: * Patients > 75 years receive moderate or high dose statin therapy. * Patients 75 years or YOUNGER should receive HIGH intensity statin dose unless contraindicated. You will be required to document reason for non-treatment if statin daily dose does not meet guidelines. HIGH DOSE STATIN THERAPY DAILY Atorvastatin > than or = to 40 mg Rosuvastatin > than or = to 20 mg Amlodipine + Atorvastatin > than or = to 2.5/40 mg Ezetimibe + Simvastatin 10/80 mg Simvastatin 80mg Discharge Plan Admission Admit Date/Time: 09/26/24 19:17 Primary Reason for Your Visit: Right hip pain Attending Provider: Shanon Bravo Primary Care Provider: Aleshia Marino Consulting Providers: Jean Claude Luther; Tricia Taylor; Elijah Mac Discharge Orders/Prescriptions Prescriptions: New losartan 50 mg Tablet 50 mg PO DAILY Qty: 0 0RF oxycodone 5 mg Tablet 5 mg PO Q4H PRN PRN (Reason: Pain Score 4-10) 1 Days Qty: 6 0RF Xarelto 10 mg Tablet 10 mg PO DAILY@0600 Qty: 0 0RF sennosides-docusate sodium [Stimulant Laxative Plus] 8.6-50 mg Tablet 2 tab PO BID Qty: 0 0RF aspirin 81 mg capsule 81 mg PO BID Qty: 1 0RF Rx Instructions: To start 10/15/2024 and continue for 2 weeks following Continued multivitamin Tablet 1 tab PO QDAY (DME) handicap placard See Rx Instructions .ROUTE .MEDSUPPLY Qty: 1 0RF Rx Instructions: Length of time: 5 years Diagnosis: Impaired physical mobility Z74.09 (DME) Blood Pressure Cuff Misc See Rx Instructions .Route Qty: 1 0RF Rx Instructions: As directed mirtazapine 15 mg tablet 15 mg PO QHS cyclobenzaprine 5 mg tablet 5 mg PO TID (DME) MEDICAL MARIJUANA (INFORMATIONAL USE ONLY-PT USES MEDICAL MARIJUANA Edible See Rx Instructions .ROUTE Patient Comments: USED TODAY Rx Instructions: As directed Referrals / Follow Up: Aleshia Marino MD [Primary Care Provider] - Elijah Mac MD [Med Staff - Active Staff] - Within 2 Weeks Disposition Disposition (needs filled in before D/C Order can be placed): Assisted Facility Charges/Coding Visit Charges Inpatient E&M: 89730 SNF Disch >30 Min
--- NOTE | 2024-09-30 11:01 | PCM.DC.SUM ---
Providers Date of Admission: 09/26/24 Date of Discharge: 09/30/24 Primary Care Physician: Dr. Aleshia Marino MD Consultations 09/26/24 21:00 Consult: Orthopedics Routine Consulting Provider: Elijah Mac Reason for Consult: right hip fxr EMERGENT Consult: No Notified: Yes Date Notified: 09/26/24 Time Notified: 19:20 Method of Notification: ED Physician Initiated 09/28/24 04:33 Consult: Architectural Draftsperson / Pulmonary Medicine Routine Consulting Provider: Intensivists/Pulmonary Med Reason for Consult: vent management EMERGENT Consult: No MD Notified: Yes Date Notified: 09/28/24 Time Notified: 04:33 Method of Notification: Text Reason For Visit: RIGHT HIP FRACTURE Diagnosis Discharge Diagnosis (1) Fracture, intertrochanteric, right femur: Status: Acute Code(s): S72.141A - Displaced intertrochanteric fracture of right femur, initial encounter for closed fracture (2) Uvular swelling: Status: Acute Code(s): K13.79 - Other lesions of oral mucosa (3) Acute respiratory failure: Status: Acute Code(s): J96.00 - Acute respiratory failure, unspecified whether with hypoxia or hypercapnia Medications at Discharge Home Medications handicap placard #1 ea 08/16/24 miscellaneous medical supply (Blood Pressure Cuff) #1 ea 08/16/24 multivitamin 1 tab PO QDAY 08/16/24 MEDICAL MARIJUANA (INFORMATIONAL USE ONLY-PT USES MEDICAL MARIJUANA 09/26/24 cyclobenzaprine 5 mg tablet 5 mg PO TID 09/26/24 mirtazapine 15 mg tablet 15 mg PO QHS 09/26/24 aspirin 81 mg capsule 81 mg PO BID #1 cap 09/30/24 ergocalciferol (vitamin D2) 1,250 mcg (50,000 unit) capsule (Vitamin D2) 1,250 mcg PO QWEEK #7 caps 09/30/24 hydralazine 50 mg tablet 50 mg PO TID #7 tabs 09/30/24 losartan 50 mg tablet 50 mg PO DAILY #0 tabs 09/30/24 oxycodone 5 mg tablet 5 mg PO Q4H PRN PRN Pain Score 4-10 1 day #6 tabs 09/30/24 rivaroxaban 10 mg tablet (Xarelto) 10 mg PO DAILY@0600 #0 tabs 09/30/24 sennosides 8.6 mg-docusate sodium 50 mg tablet (Stimulant Laxative Plus) 2 tab PO BID #0 tabs 09/30/24 Hospital Course Operations - (Right hip supple medullary nail) Procedures EKG, Intubation and - (Chest x-ray/CT soft tissue neck/multiple hip and pelvic x-rays) Summary of Care Provided Minutes Spent on Discharge: 39 Hospital Course: Mr. Martin is a 64-year-old male with a history of Parkinson disease and right foot drop who presented to the emergency department [facility] on 09/26/2024 with hip pain after mechanical fall. Patient reported that he rolled his right ankle while he is trying to ambulate and fell hitting his right side. After the incident he was unable to get up due to right hip pain. Vital signs on presentation showed a temperature of 36.9, heart rate 135, respiratory is 26, blood pressure was 179/104 with a repeat of 149/102, pulse ox was 94% on room air. CBC on presentation was unremarkable. Chemistry panel was unremarkable. Vitamin D level was obtained and found to be 25.4. Chest x-ray and EKG were unremarkable. Femoral x-ray showed nondisplaced intratrochanteric fracture of the right hip. He was admitted to the medical floor initially with a consultation to orthopedic surgery. He complained of some throat pain early on the morning of 09/27/[address] of the soft tissues of the neck were performed and showed abnormally enlarged uvula resulting in narrowing of the oropharynx which was concerning for uvulitis, pulmonary emphysema and no other significant changes. He was taken to the OR on the same day at which time a right cephalomedullary nail was performed by Dr. Mac. Postoperatively he was started on Xarelto 10 mg daily for 14 days then transition to 81 mg aspirin p.o. twice daily for 14 days and stop. He is weightbearing as tolerated and is to leave his postoperative dressing on for 5 days with removal and staple removal 14 days. He is to follow-up in Dr. Mac's office in 2 weeks. He was left intubated postoperatively and placed on steroids, H2 blockers, and Unasyn. All medications were stopped 48 hours after initiation as he clinically was doing well. He was able to be extubated easily with a good air leak the following day on the . His blood pressure was noted to be elevated throughout his stay except why he is on propofol. He was started on losartan 50 mg daily and hydralazine 50 mg 3 times daily prior to discharge. We also started him on ergocalciferol 50,000 units weekly x 6 weeks and then will need to follow-up vitamin D level. Physical Occupational Therapy saw him postoperatively and did indicate that he would need ongoing therapy at discharge. He was accepted at [facility] and approved for discharge on 09/30/2024. On the day of discharge his hemoglobin was 12.3 which was close to his baseline. His white count has normalized postoperatively. He is to follow-up with his primary care physician 1 week after discharge from skilled facility and with Dr. Mac in 2 weeks for postoperative follow-up. Discharge diagnoses: Right intertrochanteric hip fracture status post cephalomedullary nail Leukocytosis-resolved Postoperative hypoxia-resolved Uvular enlargement with resultant acute hypoxic respiratory failure-resolved Mild postoperative anemia-stable Parkinson disease Steroid-induced hyperglycemia-resolved Chronic pain MADDIE Depression Physical Exam Const alert, oriented x3, no apparent distress, average body habitus, no limitations and well nourished; Negative for healthy appearing Constitutional Narrative: Overweight, older, white male, sitting up in bed watching television, on room air, appears comfortable, nontoxic, very pleasant. He radiance gait hey Mr. Martin I printed his oxycodone expected to bed to the ED I will sign it and send it back with his med rec thank you so much bite General Appearance: cooperative, comfortable, well kempt and well developed Exam Limitations: no limitations Nutritional Appearance: overweight HEENT normocephalic, head/scalp atraumatic and moist oral mucous membranes HEENT Narrative: Dentition is poor, Mallampati is 3, no thrush Eyes EOMs intact bilaterally and conjunctivae normal Neck no lymphadenopathy and supple Neck Narrative: No lymphadenopathy or pain noted with palpation to the anterior neck Resp normal respiratory effort, no retractions, no use of accessory muscles and clear to auscultation bilaterally Auscultation: Negative for crackles, rales, rhonchi or wheezes Cardio regular rate, regular rhythm, S1 normal heart sound, S2 normal heart sound, no murmurs, no rub, no gallops and no clicks GI normal to inspection, nondistended, normoactive bowel sounds, soft to palpation and non-tender Extremity no clubbing, cyanosis or edema Extremity Narrative: Bilateral lower extremity EVAN hose in place. Postoperative dressing noted on right hip is clean dry and intact Skin skin turgor normal and no jaundice Neuro oriented x3 and moves all extremities Neuro Narrative: Vocal quality is normal, mild fine resting tremor noted Speech: speech normal Psych affect normal Psych Narrative: Interacts appropriately, eye contact is good Weight / BMI Weight Weight: 101.4 kg Body Mass Index (BMI) 27.2 ABG / Lab / Microbiology Data 09/30/24 07:20 09/30/24 07:20 Laboratory: Laboratory Results - last 24 hr 09/30/24 07:20: WBC 10.3, RBC 3.70 L, Hgb 12.3 L, Hct 35.8 L, MCV 96.8 H, MCH 33.2 H, MCHC 34.4, RDW Std Deviation 45.6 H, RDW Coeff of Ar 12.8, Plt Count 179, MPV 10.3, Immature Gran % (Auto) 0.500, Neut % (Auto) 68.8, Lymph % (Auto) 20.8, Bryan % (Auto) 9.7, Eos % (Auto) 0.1, Baso % (Auto) 0.1, Absolute Neuts (auto) 7.1, Absolute Lymphs (auto) 2.14, Nucleated RBC % 0, BUN 29 H, Creatinine 0.70, Estim Creat Clear Calc 113.02, Est GFR (MDRD) Non-Af 102, BUN/Creatinine Ratio 41.1 H, Glucose 102 H D/C Instructions Discharge Diet: No restrictions DC O2, CPAP, BIPAP Needs PSN CPAP & BiPAP: BiPAP & CPAP Settings per PSN Fraction of Inspired Oxygen ( 09/28/24 08:00 FIO2) Home O2 Discharge instructions: No Please Follow Up With: Elijah Mac MD Meaningful Use Info Meaningful Use Meaningful Use Diagnoses (Choose all that apply): None applicable Ischemic Stroke Statin Dosing Therapy Reference: STATIN DOSE THERAPY REFERENCE: * Patients > 75 years receive moderate or high dose statin therapy. * Patients 75 years or YOUNGER should receive HIGH intensity statin dose unless contraindicated. You will be required to document reason for non-treatment if statin daily dose does not meet guidelines. HIGH DOSE STATIN THERAPY DAILY Atorvastatin > than or = to 40 mg Rosuvastatin > than or = to 20 mg Amlodipine + Atorvastatin > than or = to 2.5/40 mg Ezetimibe + Simvastatin 10/80 mg Simvastatin 80mg Discharge Plan Admission Admit Date/Time: 09/26/24 19:17 Primary Reason for Your Visit: Right hip pain Attending Provider: Shanon Bravo Primary Care Provider: Aleshia Marino Consulting Providers: Jean Claude Luther; Tricia Taylor; Elijah Mac Discharge Orders/Prescriptions Prescriptions: New losartan 50 mg Tablet 50 mg PO DAILY Qty: 0 0RF oxycodone 5 mg Tablet 5 mg PO Q4H PRN PRN (Reason: Pain Score 4-10) 1 Days Qty: 6 0RF Xarelto 10 mg Tablet 10 mg PO DAILY@0600 Qty: 0 0RF sennosides-docusate sodium [Stimulant Laxative Plus] 8.6-50 mg Tablet 2 tab PO BID Qty: 0 0RF aspirin 81 mg capsule 81 mg PO BID Qty: 1 0RF Rx Instructions: To start 10/15/2024 and continue for 2 weeks following ergocalciferol (vitamin D2) [Vitamin D2] 1,250 mcg (50,000 unit) capsule 1,250 mcg PO QWEEK Qty: 7 0RF hydralazine 50 mg tablet 50 mg PO TID Qty: 7 0RF Continued multivitamin Tablet 1 tab PO QDAY (DME) handicap placard See Rx Instructions .ROUTE .MEDSUPPLY Qty: 1 0RF Rx Instructions: Length of time: 5 years Diagnosis: Impaired physical mobility Z74.09 (DME) Blood Pressure Cuff Misc See Rx Instructions .Route Qty: 1 0RF Rx Instructions: As directed mirtazapine 15 mg tablet 15 mg PO QHS cyclobenzaprine 5 mg tablet 5 mg PO TID (DME) MEDICAL MARIJUANA (INFORMATIONAL USE ONLY-PT USES MEDICAL MARIJUANA Edible See Rx Instructions .ROUTE Patient Comments: USED TODAY Rx Instructions: As directed Referrals / Follow Up: Aleshia Marino MD [Primary Care Provider] - Elijah Mac MD [Med Staff - Active Staff] - Within 2 Weeks Disposition Disposition (needs filled in before D/C Order can be placed): Senior Living Facility Charges/Coding Visit Charges Inpatient E&M: 90000 SNF Disch >30 Min
[2024-09-30 11:17] VITALS: BP 171/80
[2024-09-30 11:45] LABS: Anion Gap 13 (5-15); BUN 30 mg/dL (4-19); BUN/Creat Ratio 41.7 RATIO (10-20); Calcium 8.3 mg/dL (7.6-11.0); Carbon Dioxide 22.6 mmol/L (22.0-29.0); Chloride 107 mmol/L (96-108); Creatinine, Serum 0.72 mg/dL (0.70-1.20); EST Glomerular Filtration Rate 101 (>60); Estimated Creatinine Clearance 113.02 ml/min; Glucose 99 mg/dL (70-99); Potassium 3.8 mmol/L (3.3-5.1); Sodium Level 142 mmol/L (133-145)
--- NOTE | 2024-09-30 12:15 | CASEMGMT ---
Discharge Planning Discharge order, signed med list, and transport time sent to [facility]. Physicians will transport pt by wheelchair at 1p. Nursing, SW, pt, and his updated. Josselyn Carver DC Planning Asst.
[2024-09-30 12:42] VITALS: BP 156/87; PULSE 87; RESP 18; TEMP 36.6; O2SAT 94
--- NOTE | 2024-09-30 15:50 | CASEMGMT ---
Social Work- Precert has been obtained.? Physician updated and pt is ready for discharge today.? 7000 convalescent form completed in [facility]. Final discharge arrangements and notification to patient/family as per discharge emergency planning and response manager.? ? Disposition:SW, skilled level of care under convalescent stay. YASMEEN Rocha
== END 2024-09-30 13:24 | disposition skilled nursing facility (03) | DRG 480 ==
LOC: ED 16:08 → MS3 20:29 → ICU 09-27 07:49
PROVIDERS: Anesthesiology; Internal Medicine; Specialist; Emergency Provider Emergency Medicine; PCP Internal Medicine; Visit Provider Internal Medicine
PROC: 0QS606Z Reposition Right Upper Femur with Intramedullary Internal Fixation Device, Open Approach (ICD-10-PCS; CPT 27245; principal; 2024-09-27 17:30)
DX: S72.141A Displaced intertrochanteric fracture of right femur, initial encounter for closed fracture (principal); J96.01 Acute respiratory failure with hypoxia; J36 Peritonsillar abscess; D62 Acute posthemorrhagic anemia; G20.A1 Parkinson's disease without dyskinesia, without mention of fluctuations; I10 Essential (primary) hypertension; F32.A Depression, unspecified; K21.9 Gastro-esophageal reflux disease without esophagitis; G47.33 Obstructive sleep apnea (adult) (pediatric); W18.39XA Other fall on same level, initial encounter; K13.79 Other lesions of oral mucosa; G89.29 Other chronic pain; R73.9 Hyperglycemia, unspecified; T38.0X5A Adverse effect of glucocorticoids and synthetic analogues, initial encounter; Z79.899 Other long term (current) drug therapy; Z87.891 Personal history of nicotine dependence
CPT/HCPCS: 36415; 36600; 70490; 71045; 72170; 73501; 73502; 73552; 76000; 80048; 80053; 82306; 82550; 82803; 84478; 85025; 86850; 86900; 86901; 93005; 94002; 94003; 94640; 94660; 94668; 94762; 97163; 97166; 97530; 97535; 99252; 99285; C1713; A4216; G0463; J0295; J1940; J2405

== ENCOUNTER → 2024-11-09 | Outpatient (CLI) | payer MEDICARE, SELFPAY ==
--- NOTE | 2024-11-09 10:49 | VDLE_ITS ---
Reason For Study Reason For Study: Right leg pain RIGHT LEFT GSV is normal. CFV is compressible, spontaneous, phasic, competent, CFV is compressible, spontaneous, phasic, competent and demonstrates normal augmentation. and demonstrates normal augmentation. FV is compressible, spontaneous, phasic, competent and demonstrates normal augmentation. POP V is compressible, spontaneous, phasic, competent and demonstrates normal augmentation. T/P Trunk is compressible. PTV is compressible. RT PerV is compressible. Procedure This is a venous duplex using B-mode, color flow and spectral Doppler. Exam performed in department. A preliminary report was called and/or faxed to [facility]. VL/Venous Duplex US, Unilateral Interpretation Summary Deep veins of the right lower extremity are patent and compressible segmentally . There is no evidence of right lower extremity deep vein thrombosis. Valvular competence appears intact within the p roximal deep venous system on the right . The right great saphenous vein appears patent and compressible segmentally. The left common femoral vein is patent and compressible . Ordering Physician: Maddison Saini Referring Physician: Aleshia Marino Performed By: Kayla Adkins RVT
== END | disposition home or self-care (01) ==
LOC: CVS 10:47
PROVIDERS: PCP Internal Medicine
DX: M79.661 Pain in right lower leg (principal)
CPT/HCPCS: 93971

== ENCOUNTER 2025-04-14 17:27 | Emergency (ER) | payer MEDICARE, SELFPAY ==
[2025-04-14 17:34] VITALS: BP 214/113; PULSE 95; RESP 18; TEMP 36.4; O2SAT 96
--- NOTE | 2025-04-14 18:40 | RAD_ITS ---
PROCEDURE: LUMBAR SPINE 2 OR 3 VIEWS 04/14/2025 REASON FOR EXAM: INJURY/PAIN TECHNIQUE: Procedure Code: RADSPLL Modality: DX Procedure: LUMBAR SPINE 2 OR 3 VIEWS COMPARISON: 11/13/2021 FINDINGS: Evaluation is somewhat limited due to marked qualitative osteopenia. Postoperative changes of multilevel posterior instrumented fusion from L1-S1, without evidence for hardware complication. Stable appearing osseous alignment and moderate-advanced multilevel spondylotic changes with exaggerated lower lumbar lordosis, chronic dorsal subluxation at the L3-4 level, and multiple chronic wedge compression fracture deformities of the lower thoracolumbar vertebrae. Unchanged sclerotic focus anterior aspect of L3 may be kyphoplasty cement. Multiple surgical clips along the prevertebral soft tissues. RAD/Lumbar Spine 2 or 3 Views IMPRESSION: Marked qualitative osteopenia limits evaluation. Moderate-advanced multilevel spondylotic changes, as well as postoperative contreras ges of posterior instrumented fusion from L1-S1. No evidence of hardware complication. Stable alignment with exaggerated lower lumbar lordosis and chronic retrolisthe sis of L3 relative to L4, and multiple chronic lower thoracolumbar wedge compression fracture deformities. Reading Location: [facility]
[2025-04-14 18:53] VITALS: BP 153/91; PULSE 98; RESP 17
[2025-04-14 19:00] VITALS: BMI 27.2
[2025-04-14 19:02] LABS: AST(SGOT) 17 U/L (<=37); Alanine Aminotransfer ALT/SGPT 10 U/L (<=46); Albumin, Serum 4.2 g/dL (3.4-4.8); Alkaline Phosphatase 71 U/L (40-129); Anion Gap 11 (5-15); BUN 18 mg/dL (4-19); BUN/Creat Ratio 30.4 RATIO (10-20); Calcium,Total 9.1 mg/dL (7.6-11.0); Carbon Dioxide 23.3 mmol/L (21.0-32.0); Chloride 104 mmol/L (98-108); Globulin 2.8 g/dL (2.2-4.2); Glucose 125 mg/dL (70-99); Potassium 4.3 mmol/L (3.3-5.1)
[2025-04-14 19:03] LABS: Hematocrit 38.7 % (40-54); Hemoglobin 13.4 g/dL (13.0-16.5); Immature Granulocytes Count 0.020 X10^3/uL (0.0-0.0); Mean Corp Hgb Conc 34.6 g/dL (32-36); Mean Corpuscular Volume 93.7 fL (80-94); Mean Platelet Vol. 10.1 fl (6.2-12.0); NRBC Flagged by Analyzer 0 % (0-5); Platelet Count 208 K/mm3 (150-450); RBC Distribution Width CV 12.4 % (11.6-14.6); RBC Distribution Width SD 43.1 fl (35.1-43.9); Red Blood Count 4.13 M/mm3 (4.6-6.2); White Blood Count 7.0 K/mm3 (4.4-11.0)
--- NOTE | 2025-04-14 19:48 | EX.ED.DYSGE1 ---
HPI History of Present Illness Chief Complaint: Complaint Detail of Chief Complaint: Incontinence of urine, frequency, incontinence of stool and tremor Informant: patient and spouse/S.O. Onset/Context/Timing Onset: Month(s) (4+ months) Timing: Continuous Quality: Tremor of upper extremities Location: Upper extremities bilaterally Current Severity: Moderate Maximum Severity: Moderate Worsened by: Rest Relieved by: Performing activity Associated Symptoms Associated Symptoms: Also complains of back pain with incontinence of urine and stool and Narrative Narrative: Patient is a 64-year-old male. 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 His PCP believes his tremor is essential tremor. Been seen by neurology and the thought is that this is due to Parkinson's. He is on Parkinson medication. Has had no improvement. He apparently is scheduled to see Dr. Landry. He also presents because of frequency unable to hold his urine and incontinence of bowel. He has been wearing a diaper for months. He is recently developed a weakness in his left lower extremity. This occurred 4 to 5 months ago. He walks with a wheeled walker. He drags both legs according the . The symptoms started after he fractured his femur and was placed in rehab several months ago. He has been under the care of Dr. Vieira. He denies fever, chills night sweats. Denies recent dental procedure. He denies night sweats. He has no cardiac or respiratory symptoms. He denies abdominal pain, nausea, vomiting or diarrhea. Prior similar symptoms: Yes Recent Illness/Hospitalization: No [facility] Medical History Fracture, intertrochanteric, right femur Cellulitis of left lower leg Anxiety Alcohol use Marijuana use Ambulates with cane Hepatitis Injury of head and neck Syncope Former smoker Shortness of breath on exertion Neuropathy Tremor Foot drop History of stress test Hypertension Cristela Monahan virus positive mononucleosis syndrome High calcium levels Cluster headaches GERD (gastroesophageal reflux disease) PTSD (post-traumatic stress disorder) Adrenal disorder Draining postoperative wound Perforation of small intestine Back pain due to injury Chronic pain Pancreatitis neck/back pain Limb weakness Difficulty balancing MRSA (methicillin resistant staph aureus) culture positive Anemia Shoulder pain Arthritis Acute pancreatitis Home Medications ?Medication ?Instructions ?Recorded ?Last Taken ?Type handicap placard #1 ea 08/16/24 Unknown Rx miscellaneous medical supply #1 ea 08/16/24 Unknown Rx (Blood Pressure Cuff) multivitamin 1 tab PO QDAY 08/16/24 09/25/24 History MEDICAL MARIJUANA 09/26/24 Unknown History (INFORMATIONAL USE ONLY-PT USES MEDICAL MARIJUANA mirtazapine 15 mg tablet 15 mg PO QHS 09/26/24 09/25/24 History aspirin 81 mg capsule 81 mg PO BID #1 cap 09/30/24 Unknown Rx hydralazine 50 mg tablet 50 mg PO TID #7 tabs 09/30/24 Unknown Rx losartan 50 mg tablet 50 mg PO DAILY #0 tabs 09/30/24 Unknown Rx acetaminophen 650 mg 650 mg PO Q8H 10/24/24 Unknown History tablet,extended release (Tylenol 8 Hour) cyclobenzaprine 10 mg tablet 10 mg PO TID #90 tabs 10/24/24 Unknown Rx miscellaneous medical supply #1 ea 10/27/24 Unknown Rx Allergy/AdvReac Type Severity Reaction Status Date / Time hydroxyzine (From Vistaril) Allergy Severe Vomiting Verified 04/14/25 17:33 niacin Allergy Severe Vomiting Verified 04/14/25 17:33 carbidopa (From Sinemet) Allergy Mild Abd Verified 04/14/25 17:33 cramps/diarrhea levodopa (From Sinemet) Allergy Mild Abd Verified 04/14/25 17:33 cramps/diarrhea acetaminophen AdvReac Severe Nausea/Vom/ Verified 04/14/25 17:33 Diarrhea fentanyl (From Duragesic) AdvReac Severe Nausea/Vom/ Verified 04/14/25 17:33 Diarrhea metoclopramide HCl (From AdvReac anxiety Verified 04/14/25 17:33 Reglan) nabumetone (From Relafen) AdvReac Nausea/Vom/ Verified 04/14/25 17:33 Diarrhea Family History Father Cancer ? 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 Smoking Status: Former smoker Tobacco: How many years used: 20 Smokeless tobacco user: other alcohol intake: former substance use type: does not use do you feel safe at home: Yes ROS ROS ED Constitutional Constitutional ED: Denies chills, fever(s), subjective, sweats or weight loss Eyes Eyes: Denies blurry vision or change in vision ENT ENT ED: Denies ear pain or rhinorrhea Cardiovascular Cardiovascular: Denies chest pain or palpitations Respiratory/Chest Respiratory/Chest: Denies cough, dyspnea or dyspnea on exertion Gastrointestinal Gastrointestinal: Reports diarrhea; Denies abdominal pain, constipation, melena, nausea or vomiting Genitourinary Genitourinary ED: Reports urinary frequency and other Details: Urgency and incontinence ; Denies dysuria or hematuria Musculoskeletal Musculoskeletal: Reports back pain; Denies arthralgias, myalgias or neck pain Integumentary Denies abscess or rash Neurologic Neurologic: Reports paresthesias and weakness; Denies headache(s) Psychiatric Psychiatric: Denies anxiety or depression Endocrine Endocrinology: Denies cold intolerance or heat intolerance Hematologic/Lymphatic Hematologic/Lymphatic: Reports systems reviewed and no addt'l complaints, except as documented EXAM Physical Exam Const Vital Signs: 04/14/25 17:34 04/14/25 18:53 04/14/25 20:00 Temperature 97.6 F L Temperature Source Temporal Pulse Rate 95 98 72 Respiratory Rate 18 17 18 Blood Pressure 214/113 H 153/91 H 154/90 H Blood Pressure Mean 146 111 111 Pulse Ox 96 100 Oxygen Delivery Method Room Air Room Air Positive well nourished and well developed Constitutional Narrative: Patient has a resting tremor upper extremities. Blood pressure is elevated. Repeat blood pressure improved markedly. General Appearance ED: well developed and NAD HEENT Reports moist mucous membranes HEENT Narrative: Head is atraumatic no cephalic. Ears normal. Nares patent. Posterior pharynx normal. No deviation tongue protrusion. Uvula is midline. Eyes PERRL and EOMs intact bilaterally General Eye ED: Negative for pale conjunctiva or scleral icterus Neck no lymphadenopathy, supple and no JVD Chest Wall inspection of chest normal and palpation of chest normal Resp normal respiratory effort and clear to auscultation bilaterally Cardio regular rate, regular rhythm, S1 normal heart sound, S2 normal heart sound and no murmurs GI normal to inspection, nondistended, normoactive bowel sounds, non-tender, non-distended and no masses; Negative for hepatosplenomegaly Narrative: No abnormality Extremity Negative for normal to inspection Extremity Narrative: Edema of both lower extremities. Neuro oriented x3, CN's II-XII intact bilaterally and no sensory deficits noted Neuro Narrative: Patient has foot drop right side. He has weakness with plantar dorsiflexion of his left foot. Reflexes are plus minus patella and ankle. There is no clonus or Babinski sign noted. Patient's tremor abates when asked to move his hand towards an object. Question of cogwheel rigidity at the elbow on the right side. Not appreciated on the left. Sensorium / Orientation: alert Motor Exam: Negative for strength 5/5 throughout Skin no rashes or lesions noted, no wounds and skin turgor normal MDM MDM MDM Narrative Medical decision making narrative: Since patient is not had imaging of his back imaging of his back was obtained. Will obtain CBC to assess white count differential H&H. Competence of metabolic panel to assess calcium, alkaline phosphatase electrolytes. History & Record Review Additional record(s) reviewed:: Prior outpatient record (Reviewed neurology notes. Neurologist believes he has an essential tremor. There was also thought that this may be due to Parkinson's disease.) Lab Data Attestation: I reviewed the patient's lab results. Lab results narrative: CBC is unremarkable. Basic metabolic panel reveals elevated BUN to creatinine ratio however the BUN/creatinine are both normal at 18 and 0.6. Glucose slightly elevated 125 with normal CO2 anion gap. Labs: Laboratory Results - last 24 hr 04/14/25 18:31 WBC 7.0 RBC 4.13 L Hgb 13.4 Hct 38.7 L MCV 93.7 MCH 32.4 H MCHC 34.6 RDW Std Deviation 43.1 RDW Coeff of Ar 12.4 Plt Count 208 MPV 10.1 Immature Gran % (Auto) 0.300 Neut % (Auto) 61.0 Lymph % (Auto) 26.8 [place] % (Auto) 10.0 Eos % (Auto) 1.0 Baso % (Auto) 0.9 Absolute Neuts (auto) 4.3 Absolute Lymphs (auto) 1.87 Nucleated RBC % 0 Sodium 138 Potassium 4.3 Chloride 104 Carbon Dioxide 23.3 Anion Gap 11 BUN 18 Creatinine 0.61 L Est GFR (MDRD) Non-Af 107 BUN/Creatinine Ratio 30.4 H Glucose 125 H Calcium 9.1 Total Bilirubin 0.39 AST 17 ALT 10 Alkaline Phosphatase 71 Total Protein 7.0 Albumin 4.2 Globulin 2.8 Albumin/Globulin Ratio 1.5 Radiography Chest X-Ray - ED: 2 View (Palacios rods noted. He has kyphosis of lumbar region with significant osteopenia and degenerative changes.) Diagnostic Testing: Clinical Impression(s) from Imaging Studies Lumbar Spine X-Ray 04/14/25 18:40 IMPRESSION: Marked qualitative osteopenia limits evaluation. Moderate-advanced multilevel spondylotic changes, as well as postoperative changes of posterior instrumented fusion from L1-S1. No evidence of hardware complication. Stable alignment with exaggerated lower lumbar lordosis and chronic retrolisthesis of L3 relative to L4, and multiple chronic lower thoracolumbar wedge compression fracture deformities. Reading Location: [facility] Treatment and Re-Evaluation :: Patient and were informed of x-ray results and laboratory results. Patient requested external catheter and see if this will help him at least sleep. Discharge Plan Triage Chief Complaint: Complaint ED Provider: Franklin Neal Dx/Rx/DC Orders Clinical Impression: Resting tremor, Essential tremor, Hypertension, Urinary incontinence, Chronic diarrhea Instructions: Essential Tremor (ET) Prescriptions: No Action multivitamin Tablet 1 tab PO QDAY (DME) handicap placard See Rx Instructions .ROUTE .MEDSUPPLY Qty: 1 0RF Rx Instructions: Length of time: 5 years Diagnosis: Impaired physical mobility Z74.09 (DME) Blood Pressure Cuff Misc See Rx Instructions .Route Qty: 1 0RF Rx Instructions: As directed acetaminophen [Tylenol 8 Hour] 650 mg tablet extended release 650 mg PO Q8H cyclobenzaprine 10 mg tablet 10 mg PO TID Qty: 90 0RF mirtazapine 15 mg tablet 15 mg PO QHS (DME) MEDICAL MARIJUANA (INFORMATIONAL USE ONLY-PT USES MEDICAL MARIJUANA Edible See Rx Instructions .Route Patient Comments: USED TODAY Rx Instructions: As directed losartan 50 mg Tablet 50 mg PO DAILY Qty: 0 0RF aspirin 81 mg capsule 81 mg PO BID Qty: 1 0RF Rx Instructions: To start 10/15/2024 and continue for 2 weeks following hydralazine 50 mg tablet 50 mg PO TID Qty: 7 0RF (DME) miscellaneous medical supply Misc See Rx Instructions .Route Qty: 1 0RF Rx Instructions: Hospital bed Primary Care Provider: Aleshia Marino Referrals: Aleshia Marino MD [Primary Care Provider] - As Needed Print Language: Gabonese Disposition Disposition: Home, Self Care
[2025-04-14 20:00] VITALS: BP 154/90; PULSE 72; RESP 18; O2SAT 100
[2025-04-14 21:00] VITALS: BP 146/89; PULSE 82; RESP 18; TEMP 36.6; O2SAT 100; O2SAT 98
== END 2025-04-14 21:28 | disposition home or self-care (01) ==
PROVIDERS: Emergency Provider Emergency Medicine; PCP Internal Medicine; Visit Provider Emergency Medicine
DX: R32 Unspecified urinary incontinence (principal); G20.A1 Parkinson's disease without dyskinesia, without mention of fluctuations; K52.9 Noninfective gastroenteritis and colitis, unspecified; Z87.891 Personal history of nicotine dependence; G25.2 Other specified forms of tremor; I10 Essential (primary) hypertension; G25.0 Essential tremor; Z79.899 Other long term (current) drug therapy; Z90.49 Acquired absence of other specified parts of digestive tract
CPT/HCPCS: 72100; 80053; 85025; 99283

== ENCOUNTER → 2025-04-21 | Outpatient (CLI) | payer MEDICARE, SELFPAY ==
--- NOTE | 2025-04-21 14:10 | CT_ITS ---
PROCEDURE: LOW DOSE CT LUNG SCREENING 04/21/2025 REASON FOR EXAM: SMOKER Former smoker. TECHNIQUE: Procedure Code: [id number] Modality: CT Procedure: LOW DOSE CT LUNG SCREENING Coronal and Sagittal reconstruction series were provided. One or more dose reduction techniques were used (e.g., Automated exposure control, adjustment of the mA and/or kV according to patient size, use of iterative reconstruction technique). REFERENCE LINK: [employer] Lung-RADS RADIATION DOSE SUMMARY: CTDlvol: 2.39 mGy DLP: 84.59 mGycm COMPARISON: Prior study dated April 14, 2024 FINDINGS: PULMONARY NODULES: (Only nodules >3mm are reported) Nodules described below are on series 1 unless otherwise specified. Pulmonary Nodules: No suspicious pulmonary nodules are seen. Hardware:None Lymph Nodes:Small benign-appearing mediastinal lymph nodes. Heart and Vasculature:The heart is nonenlarged.Atherosclerotic calcifications of the thoracic aorta. Thoracic aorta and pulmonary arteries have normal contours; noncontrast technique limits evaluation. Coronary Artery Calcifications: Present Lungs and Airways: Hyperinflation. Mild degree of emphysematous changes more pronounced in the upper lobes. Findings suggestive of scarring at the left lung base as well as possible round atelectasis in the posterior medial segment of the right lower lobe. Pleura:No pleural effusion Upper Abdomen:Unremarkable Bones:Degenerative changes of the thoracic spine. CT/Low Dose CT Lung Screening IMPRESSION: No suspicious pulmonary nodule is seen. Coronary artery calcification (CAC) is is present Lung-RADS Category: 2 BENIGN (BASED ON IMAGING FEATURES OR INDOLENT BEHAVIOR). RECOMMEND 12-MONTH SCREENING LDCT. Other Significant Findings: Reading Location: [place] [id number]
== END | disposition home or self-care (01) ==
LOC: CT 14:02
PROVIDERS: PCP Internal Medicine; Referring Provider Nurse Practitioner Acute Care; Visit Provider Nurse Practitioner Acute Care
DX: F17.210 Nicotine dependence, cigarettes, uncomplicated (principal)
CPT/HCPCS: 71271

== ENCOUNTER → 2025-04-27 | Outpatient (CLI) | payer MEDICARE, SELFPAY ==
--- OUTSIDE RECORDS SUMMARY | 2025-04-28 13:57 | XMS RPT_ITS | CCD ---
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 Linda Dominguez Primary Care Provider MD Beka Garcia Emergency Provider Dr. Nathan Taveras Admit Provider Dr. Nathan Taveras Attending Provider Dr. Nathan Taveras Other Provider Dr. Tyrese Fulton Attending Provider Dr. Jean Claude Jasmine Referring Provider Dr. Gricel Devi Attending Provider Dr. Nathan Taveras Referring Provider Dr. Júnior Lopez Other Provider Dr. Mickey Messina Attending Provider [phone] Dr. Jonel Flores Chi Admit Provider Dr. Jonel Flores Chi Other Provider Dr. Ros Deluca Attending Provider Dr. Linda Dominguez Primary Care Provider MD Beka Garcia Emergency Provider Dr. Nathan Taveras Admit Provider Dr. Nathan Taveras Attending Provider Dr. Nathan Taveras Other Provider Dr. Linda Dominguez Referring Provider Isadora LOPEZ PA-Omar Donovan Attending Provider Dr. Zoraida Marino Attending Provider [phone] Maci Marion MD Primary Care Provider Dr. Zoraida Marino Primary Care Provider Dr. Zoraida Marino Referring Provider [phone] Dr. Todd Vieira Attending Provider Dr. Nathan Taveras Attending Provider Dr. Nathan Taveras Other Provider Dr. Zoraida Marino Primary Care Provider Dr. Todd Vieira Attending Provider Dr. Todd Vieira Referring Provider Dr. Zoraida Marino Referring Provider [phone] Dr. Zoraida Marino Attending Provider [phone] Dr. Zoraida Marino Primary Care Provider Dr. Todd Vieira Attending Provider Erick BUTCHER OR SMALLGOODS MAKER, BUTCHER OR SMALLGOODS MAKER-C Glenis Attending Provider Dr. Zoraida Marino Primary Care Provider Dr. Zoraida Marino Referring Provider [phone] Dr. Todd Vieira Attending Provider Dr. Zoraida Marino Attending Provider Erick BUTCHER OR [employer]GOODS MAKER, BUTCHER OR SMALLGOODS MAKER-C Glenis Attending Provider Linda Dominguez MD Primary Care Provider Zoraida Marino MD Primary Care Provider [phone] EVAN WALDEN Attending Unavailable ZORAIDA MARINO Primary Care Unavailable Dr. Zoraida Marino MD Primary Care Provider [phone] Dr. Baljit Fleming DO Attending Provider Dr. Baljit Fleming DO Emergency Provider Ned MITCHELL, Dr. Monk Attending Provider Ned MITCHELL, Dr. Monk Referring Provider Homa GRULLON, Dr. Silverio Admit Provider Homa GRULLON, Dr. Silverio Other Provider Dr. Shanon Bravo DO Attending Provider Brandon MITCHELL, Dr. Clarke Other Provider Bubba MITCHELL, Dr. Nava Other Provider Homa GRULLON, Dr. Silverio Attending Provider Brandon MITCHELL, Dr. Clarke Attending Provider Isaias GRULLON, Dr. Bro Attending Provider [phone] Lawrence GRULLON, Dr. Claudio Referring Provider Marisel MITCHELL, Dr. Sepulveda Other Provider Janel MITCHELL, Dr. Arias Other Provider Montana MITCHELL, Dr. Malave Other Provider Dr. Dieudonne Esparza DO Other Provider Chris MITCHELL, Dr. Chris Coronado Other Provider [phone] Diego MITCHELL, Dr. Haq Other Provider Zack MITCHELL, Dr. Cuellar Other Provider Jones MITCHELL, Dr. Lakhani Other Provider Nayeli MITCHELL, Dr. Rodriguez Other Provider Dr. Stephane Flores MD Other Provider [phone] Rudolph MITCHELL, Dr. Cole Other Provider Juarez MITCHELL, Dr. Silva Other Provider Jess MITCHELL, Dr. Otto Other Provider [facility] Ames MD, Dr. Mora Other Provider Honorio MITCHELL, Dr. Pardo Other Provider Donaldo MITCHELL, Dr. East Other Provider Heri MITCHELL, Dr. Cifuentes Other Provider [phone] Conrado GRULLON, Dr. West Other Provider [phone] Opal MITCHELL, Dr. Cannon Other Provider Jf MITCHELL, Dr. Theodore Other Provider Dr. William Henry DO Other Provider Triston MITCHELL, Dr. Mims Other Provider Daniel MITCHELL, Dr. Longoria Other Provider Lawrence GRULLON, Dr. Claudio Other Provider Ez MITCHELL, Dr. Gillespie Attending Provider Unavaila ble Maddison Calix Attending Provider [phone] Maddison Calix Referring Provider [phone] Dr. Zoraida Marino MD Primary Care Provider Dr. Franklin Neal MD Emergency Provider Zoraida Marino Primary Care Unavailable Franklin Neal Attending Unavailable Zoraida Marino Primary Care Unavailable Jean Claude Luther Attending Unavailable Shanon Bravo Attending Unavailable Zoraida Marino Primary Care Unavailable Jean Claude Luther Admitting Unavailable Jean Claude Luther Consulting Unavailable Tricia Taylor Consulting Unavailable Elijah Mac Consulting Unavailable Shanon Bravo Consulting Unavailable Shanon Bravo Referring Unavailable Dieudonne Esparza Attending Unavailable Derick Joiner Consulting Unavailable Hugo Islas Consulting Unavailable Ananda Boyle Consulting Unavailable Dieudonne Esparza Consulting Unavailable Chris Perez Consulting Unavailable Severino Cortez Consulting Unavailable Polo Dixon Consulting Unavailable Lesvia Goldman Consulting Unavailab Michael Cordero Consulting Unavailable Stephane Flores Consulting Unavailable Douglas Galdamez Consulting Unavailable Shira Pizarro Consulting Unavailable Clarita Mercado Consulting Unavailable Ames, Abby Consulting Unavailable Honorio, Edvin Consulting Unavailable IrCruzito simpson Consulting Unavailable Heri, Esau Consulting Unavailable Dhesi, Brett Consulting Unavailable Davis Joseph Consulting Unavailable Ewelina Rhoades Consulting Unavailable William Henry Consulting Unavailable Prasanna Goldstein Consulting Unavailable Von Sanchez Consulting Unavailable Tricia Taylor Attending Unavailable Connelly, Zoraida Primary Care Unavailable Ned, Zoraida Referring Unavailable Connelly, Zoraida Attending Unavailable Ned, Zoraida Primary Care Unavailable Maddison Saini Referring Unavailable Maddison Saini Attending Unavailable Ned, Zoraida Primary Care Unavailable Gudla Verna ARORA Attending Unavailable Gudla Arline ARORAthi Attending Unavailable Ned, Zoraida Primary Care Unavailable Connelly, Zoraida Primary Care Unavailable Erick BUTCHER OR [employer]GOODS MAKER, Glenis Referring Unavailable Erick BUTCHER OR [employer]GOODS MAKER, Glenis Attending Unavailable Shanon Bravo Attending Unavailable Ned, Zoraida Primary Care Unavailable Jean Claude Luther Consulting Unavailable Jean Claude Luther Admitting Unavailable Tricia Taylor Consulting Unavailable Elijah Mac Consulting Unavailable Ned, Zoraida Primary Care Unavailable Baljit Fleming Attending Unavailable Ned, Zoraida Primary Care Unavailable Selwyn Ramsey Referring Unavailable Selwyn Ramsey Attending Unavailable Connelly, Zoraida Primary Care Unavailable Selwyn Ramsey Referring Unavailable Selwyn Ramsey Attending Unavailable Connelly, Zoraida Referring Unavailable Connelly, Zoraida Attending Unavailable Ned, Zoraida Primary Care Unavailable Ned, Zoraida Referring Unavailable Connelly, Zoraida Attending Unavailable Connelly, Zoraida Primary Care Unavailable Allergies Allergy Classification Reported Allergen(s) Allergy Type Date of Onset Reaction(s) Facility (20 sources) Acetaminophen; Translations: [ACETAMINOPHEN] Drug Allergy 4 GI Upset, Other: See Comments [facility] (13 sources) DULoxetine; Translations: [DULOXETINE] Drug Allergy 1 Other: See Comments [facility] Work Phone: (20 sources) fentaNYL; Translations: [FENTANYL] Drug Allergy 4 GI Upset [facility] (13 sources) gabapentin; Translations: [GABAPENTIN] Drug Allergy 4 Vomiting [facility] Work Phone: (13 sources) Methocarbamol; Translations: [METHOCARBAMOL] Drug Allergy 4 Vomiting [facility] Work Phone: (20 sources) Metoclopramide; Translations: [METOCLOPRAMIDE HCL] Drug Allergy 4 Mental Status Change [facility] (13 sources) traMADol; Translations: [TRAMADOL] Drug Allergy 2 [facility] Work Phone: (10 sources) nabumetone Drug Allergy 2 Nausea/Vom/Diar cabrera [facility] (8 sources) hydrOXYzine Drug Allergy 2 Vomiting [facility] (8 sources) Niacin Drug Allergy 2 Vomiting [facility] (2 sources) Carbidopa Drug Allergy 5 Abd cramps/diarrhea [facility] (2 sources) Levodopa Drug Allergy 5 Abd cramps/diarrhea [facility] (1 source) Acetaminophen Drug Allergy 5 [facility] (1 source) Carbidopa Drug Allergy 5 [facility] (1 source) fentaNYL Drug Allergy 5 [facility] (1 source) hydrOXYzine Drug Allergy 5 [facility] (1 source) Levodopa Drug Allergy 5 [facility] (1 source) Metoclopramide Drug Allergy 5 [facility] (1 source) nabumetone Drug Allergy 5 [facility] (1 source) Niacin Drug Allergy 5 [facility] Medications Current Medications Medication Drug Class(es) Dates Sig (Normalized) Sig (Original) Medical Marijuana (Informational Use Only-Pt Uses Medical Marijuana edible (2 sources) Start: 09-26-2024 Medical Marijuana (Informational Use Only-Pt Uses Medical Marijuana edible Active 0 .Route September 26, 2024 1:00am As directed 8 hr acetaminophen 650 mg extended release oral tablet (12 sources) Start: 10-24-2024 take 1 tablet by mouth every eight hours Acetaminophen (Tylenol 8 Hour) 650 mg tablet extended release Active 650 mg PO Q8H October 24, 2024 12:00am Start: 11-06-2021 End: 07-21-2022 take 1 tablet by mouth every four hours as needed for pain Acetaminophen 500 mg Tablet Discontinued 500 mg PO EVERY 4 HOURS NEEDED as needed for Pain Score 1-10 0 0 November 06, 2021 12:00am July 21, 2022 10:52am Mfnuw-Algp-Wnbhp-Collag-Mv-M in (Aly (With Collagen)) 7-7-1.5 gram Powder In Packet (10 sources) Start: 11-06-2021 Qenvr-Ljqu-Huebi-Collag-Mv-M in (Aly (With Collagen)) 7-7-1.5 gram Powder In Packet Active 1 PACKET PO TWICE DAILY WITH MEALS 60 30 November 06, 2021 8:33pm Start: 11-06-2021 End: 01-23-2022 Utcqt-Sqnz-Acimm-Collag-Mv-M in (Aly (With Collagen)) 7-7-1.5 gram Powder In Packet Discontinued 1 NMA PO TWICE DAILY WITH MEALS 60 30 0 November 06, 2021 12:00am January 23, 2022 10:38am Start: 11-06-2021 End: 01-23-2022 Kzvus-Fquj-Vggwc-Collag-Mv-M in (Aly (With Collagen)) 7-7-1.5 gram Powder In Packet Discontinued 1 NMA PO TWICE DAILY WITH MEALS 60 30 November 06, 2021 12:00am January 23, 2022 10:38am Start: 11-06-2021 End: 01-23-2022 Ueaeo-Regh-Fhwet-Collag-Mv-M in (Aly (With Collagen)) 7-7-1.5 gram Powder In Packet Discontinued 1 PACKET PO TWICE DAILY WITH MEALS 60 30 November 05, 2021 11:00pm January 23, 2022 9:38am Start: 11-06-2021 End: 01-23-2022 Bvlxc-Wzqe-Vsdkr-Collag-Mv-M in (Aly (With Collagen)) 7-7-1.5 gram Powder In Packet Discontinued 1 PACKET PO TWICE DAILY WITH MEALS 60 30 November 06, 2021 12:00am January 23, 2022 10:38am aspirin 81 mg oral tablet (12 sources) Platelet Aggregation Inhibitor, Nonsteroidal Anti-inflammatory Drug Start: 09-30-2024 take 1 capsule by mouth twice daily Aspirin 81 mg capsule Active 81 mg PO TWICE A DAY 1 September 30, 2024 1:00am To start 10/15/2024 and continue for 2 weeks following Start: 05-18-2018 End: 05-20-2018 take 2 tablets by mouth once daily Aspirin 325 MG tablet Discontinued 650 mg PO DAILY@799May 18, 2018 12:00am May 20, 2018 1:38pm Start: 05-18-2018 End: 05-20-2018 take 650 mg by mouth once daily Aspirin Discontinued 6 50 MG PO DAILY@799May 18, 2018 12:00am May 20, 2018 1:38pm carbidopa 25 mg oral tablet (1 source) Aromatic Amino Acid Decarboxylation Inhibitor Start: 06-01-2024 End: 11-28-2024 take 1 tablet by mouth three times daily carbidopa (LODOSYN) 25 mg tab Indications: Parkinson's disease without dyskinesia or fluctuating manifestations (HCC) Take 1 tablet by mouth three times a day. 90 tablet 5 06/01/2024 11/28/2024 Active carbidopa 25 mg / levodopa 100 mg oral tablet (3 sources) Aromatic Amino Acid Decarboxylation Inhibitor, Aromatic Amino Acid Start: 06-01-2024 End: 11-28-2024 take 2 tablets by mouth three times daily carbidopa-levodopa (SINEMET) 25-100 mg per tablet Indications: Parkinson's disease without dyskinesia or fluctuating manifestations (HCC) Take 2 tablets by mouth three times a day. 180 tablet 5 06/01/2024 11/28/2024 Active Start: 11-04-2023 End: 03-16-2024 take 1 tablet by mouth once daily, then take 1 tablet by mouth twice daily, then take 1 tablet by mouth three times daily Carbidopa-Levodopa 25-100 mg tablet Discontinued 1 {tbl} PO .COMPLEX 90 November 04, 2023 12:00am March 16, 2024 1:30pm 1 Tab PO daily for one week then 1 tab BID for one week then 1 tab TID thereafter; cyclobenzaprine hydrochloride 10 mg oral tablet (20 sources) Muscle Relaxant Start: 03-24-2025 take 1 tablet by mouth three times daily Cyclobenzaprine 10 mg tablet Active 10 mg PO THREE TIMES A DAY 90 0 October 24, 2024 8:41am Start: 10-24-2024 End: 10-24-2024 take 2 tablets by mouth three times daily Cyclobenzaprine 5 mg tablet Discontinued 10 mg PO THREE TIMES A DAY October 24, 2024 8:05am October 24, 2024 8:42am Start: 09-26-2024 End: 10-24-2024 take 1 tablet by mouth three times daily Cyclobenzaprine 5 mg tablet Discontinued 5 mg PO THREE TIMES A DAY September 26, 2024 1:00am October 24, 2024 8:05am Start: 11-04-2023 End: 07-31-2024 take 1 tablet by mouth three times daily Cyclobenzaprine 5 mg tablet Discontinued 5 mg PO THREE TIMES A DAY 90 5 November 04, 2023 12:00am July 31, 2024 11:21am On Hold: on hold Start: 08-28-2022 End: 11-04-2023 take 1 tablet by mouth three times daily Cyclobenzaprine 10 mg tablet Discontinued 10 mg PO THREE TIMES A DAY 90 5 January 29, 2023 2:10pm November 04, 2023 1:18pm muscle spasm Start: 08-26-2022 End: 08-28-2022 take 1 tablet by mouth twice daily as needed for muscle spasms Cyclobenzaprine 10 mg tablet Discontinued 10 mg PO TWICE A DAY as needed for muscle spasm 60 4 August 26, 2022 5:44pm August 28, 2022 5:27pm Start: 04-28-2022 End: 07-21-2022 take 1 tablet by mouth three times daily as needed for muscle spasms Cyclobenzaprine 10 mg tablet Discontinued 10 mg PO THREE TIMES A DAY as needed for muscle spasm 90 0 April 28, 2022 1:17pm July 21, 2022 10:54am Start: 01-23-2022 End: 04-28-2022 take 1 tablet by mouth three times daily as needed Cyclobenzaprine 5 mg tablet Discontinued 5 mg PO THREE TIMES A DAY as needed January 23, 2022 12:00am April 28, 2022 1:18pm Start: 09-21-2021 End: 11-06-2021 take 1 tablet by mouth twice daily as needed for pain Cyclobenzaprine 10 mg tablet Discontinued 10 mg PO TWICE A DAY as needed for Pain September 21, 2021 1:00am November 06, 2021 8:34pm Start: 05-18-2018 End: 10-26-2018 take 1 tablet by mouth three times daily as needed for pain Cyclobenzaprine 10 MG tablet Discontinued 10 mg PO 3 TIMES DAILY NEEDED as needed for Pain May 18, 2018 12:00am October 26, 2018 2:28pm handicap placard (2 sources) Start: 08-16-[address] Active 0 .ROUTE .MEDSUPPLY 1 0 August 16, 2024 1:00am Impaired physical mobility Other reduced mobility Length of time: 5 years Diagnosis: Impaired physical mobility Z74.09 Start: 08-16-[address] Active 0 .ROUTE .MEDSUPPLY 1 August 16, 2024 1:00am Length of time: 5 years Diagnosis: Impaired physical mobility Z74.09 hydrALAZINE hydrochloride 50 mg oral tablet (2 sources) Arteriolar Vasodilator Start: 09-30-2024 take 1 tablet by mouth three times daily Hydralazine 50 mg tablet Active 50 mg PO THREE TIMES A DAY 7 0 September 30, 2024 1:00am hydroCHLOROthiazide 25 mg / triamterene 37.5 mg oral capsule (12 sources) Potassium-sparin g Diuretic, Thiazide Diuretic Start: 06-12-2020 take 1 capsule by mouth once daily triamterene-hydroc hlorothiazide (DYAZIDE) 37.5-25 mg per capsule Indications: Essential hypertension Take 1 capsule by mouth once daily. 30 capsule 11 06/12/2020 Active Comment on above: Take 1 capsule by [facility] once daily. losartan potassium 50 mg oral tablet (2 sources) Angiotensin 2 Receptor Nereyda Start: 09-30-2024 take 1 tablet by mouth once daily Losartan 50 mg Tablet Active 50 mg PO DAILY 0 0 September 30, 2024 1:00am mirtazapine 15 mg oral tablet (3 sources) Start: 06-01-2024 End: 11-28-2024 take 1 tablet by mouth at bedtime Mirtazapine 15 mg tablet Active 15 mg PO AT BEDTIME September 26, 2024 1:00am Miscellaneous Medical Supply (Blood Pressure Cuff) misc (2 sources) Start: 08-16-2024 Miscellaneous Medical Supply (Blood Pressure Cuff) misc Active 0 .Route 1 0 August 16, 2024 1:00am Primary hypertension Essential (primary) hypertension As directed Start: 08-16-2024 Miscellaneous Medical Supply (Blood Pressure Cuff) misc Active 0 .Route 1 August 16, 2024 1:00am As directed Miscellaneous Medical Supply misc (2 sources) Start: 10-27-2024 Miscellaneous Medical Supply misc Active 0 .Route 1 0 October 27, 2024 12:00am Debility Other [facility] bed Start: 10-27-2024 Miscellaneous Medical Supply misc Active 0 .Route 1 October 27, 2024 12:00am Hospital bed Multivitamin tablet (2 sources) Start: 08-16-2024 Multivitamin t ablet Active 1 {tbl} PO daily August 16, 2024 1:00am Completed/Discontinued Medications Medication Drug Class(es) Dates Sig (Normalized) Sig (Original) albuterol 0.83 mg/ml inhalation solution (20 sources) beta2-Adrenergic Agonist Start: 10-23-2021 End: 11-06-2021 take 2.5 mg by inhalation every two hours as needed for cough Albuterol Sulfate 2.5 mg /3 mL (0.083 %) Solution For Nebulization Discontinued 2.5 mg INHALATION EVERY 2 HOURS NEEDED as needed for Wheezing Or Cough 0 0 October 23, 2021 12:00am November 06, 2021 8:34pm Start: 05-18-2018 End: 10-26-2018 take 1 puff(s) by inhalation every four hours Albuterol Sulfate Discontinued 2 PUFF INHALATION Q4H May 18, 2018 5:16pm October 26, 2018 2:28pm Start: 05-18-2018 End: 10-26-2018 Albuterol Sulfate 18 GM HFA aerosol inhaler Discontinued 2 NMA INHALATION Q4H May 18, 2018 12:00am October 26, 2018 2:28pm SOB Start: 05-18-2018 End: 10-26-2018 take 1 puff(s) by inhalation every four hours Albuterol Sulfate Discontinued 2 PUFF INHALATION Q4H May 18, 2018 12:00am October 26, 2018 2:28pm ALPRAZolam 0.5 mg oral tablet (10 sources) Benzodiazepine Start: 07-30-2022 End: 07-30-2022 take 1 tablet by mouth once daily Alprazolam 0.5 mg tablet Discontinued 0.5 mg PO DAILY 1 July 30, 2022 1:00am July 30, 2022 12:37pm Claustrophobia Claustrophobia Start: 01-02-2022 End: 01-03-2022 ALPRAZolam (XANAX) 0.5 mg ta blet Take 1 tablet by mouth as needed for up to 1 dose. To be administered prior to MRI for anxiolysis. 1 tablet 0 01/02/2022 01/03/2022 Active Comment on above: Take 1 tablet by allie th as needed for up to 1 dose. To be administered prior to MRI for anxiolysis. amLODIPine 5 mg oral tablet (2 sources) Dihydropyridine Calcium Channel Nereyda Star t: 07-04 End: 08-03 take 1 tablet by mouth once daily Amlodipine (Norvasc) 5 mg tablet Discontinued 5 mg PO DAILY 60 July 31, 2024 1:00am August 16, 2024 3:07pm onabotulinumtoxina 100 unt injection (6 sources) Acetylcholine Release Inhibitor Star t: 01-03 End: 08-03 24 inject 100 [IU] by intramuscular injection once Onabotulinumtoxina (Botox) 100 unit recon tariq Discontinued 100 U IM ONCE 1 January 30, 2023 12:00am August 17, 2023 9:00am Essential tremor Rubral tremors Essential tremor Other specified forms of tremor as a single dose Start: 01-30-2023 End: 08-17-2023 inject 100 [IU] by intramuscular injection once Onabotulinumtoxina (Botox) 100 unit recon soln Discontinued 100 UNIT IM ONCE January 30, 2023 12:00am August 17, 2023 9:00am as a single dose dexamethasone 1 mg oral tablet (2 sources) Corticosteroid Start: 04-22-2024 End: 08-16-2024 take 1 tablet by mouth once daily in the evening Dexamethasone 1 mg tablet Discontinued 1 mg PO daily April 22, 2024 12:00am August 16, 2024 3:07pm On Hold: on hold to be take at 11 pm the night before labs drawn diazePAM 10 mg oral tablet (20 sources) Benzodiazepine Start: 11-12-2022 End: 01-27-2023 Diazepam 10 mg tablet Discontinued 10 mg PO .COMPLEX 1 0 November 17, 2022 6:02pm January 27, 2023 11:22am Rubral tremors Other specified forms of tremor One tablet orally times one. Start: 10-09-2022 End: 10-27-2022 Diazepam 10 mg tablet Discon tinued 10 mg PO .COMPLEX 1 0 October 09, 2022 1:00am October 27, 2022 9:29am Rubral tremors Other specified forms of tremor 10 mg orally x1 to be taken 30 minutes prior to EMG/nerve conduction study Start: 01-23-2022 End: 03-27-2022 Diazepam 5 mg tablet Discont inued 5 mg PO ONCE as needed for anxiety 2 0 January 23, 2022 12:00am March 27, 2022 10:58am Tremor Tremor, unspecified take 1 tablet 60 minutes prior to MRI, if still symptomatic, take 2nd pill 30 minutes prior to procedure Start: 11-13-2021 End: 01-23-2022 take 1 tablet by mouth every eight hours as needed for muscle spasms Diazepam 5 MG tablet Discontinued 5 mg PO EVERY 8 HOURS as needed for Muscle Spasm November 13, 2021 12:00am January 23, 2022 10:38am docusate sodium 50 mg / sennosides, alf 8.6 mg oral tablet (2 sources) Start: 09-30-2024 End: 10-24-2024 Sennosides-Docusate Sodium (Stimulant Laxative Plus) 8.6-50 mg Tablet Discontinued 2 {tbl} PO TWICE A DAY 0 September 30, 2024 1:00am October 24, 2024 8:03am doxycycline hyclate 100 mg oral tablet (8 sources) Tetracyclin e-class Drug Start: 08-16-2024 End: 09-26-2024 take 1 tablet by mouth twice daily Doxycycline Hyclate 100 mg tablet Discontinued 100 mg PO TWICE A DAY 10 August 16, 2024 1:00am September 26, 2024 7:12pm Start: 10-27-2022 End: 01-27-2023 take 1 capsule by mouth twice daily Doxycycline Monohydrate 100 mg capsule Discontinued 100 mg PO TWICE A DAY 20 0 October 27, 2022 12:00am January 27, 2023 11:22am ergocalciferol 1.25 mg oral capsule (2 sources) Provitamin D2 Compound Start: 09-30-2024 End: 10-24-2024 Ergocalciferol (Vitamin D2) (Vitamin D2) 1,250 mcg (50,000 unit) capsule Discontinued 1250 ug PO EVERY WEEK 7 September 30, 2024 1:00am October 24, 2024 8:03am flurbiprofen 100 mg oral tablet (2 sources) Nonsteroidal Anti-inflammatory Drug Start: 11-04-2023 End: 11-20-2023 take 1 tablet by mouth three times daily as needed for pain Flurbiprofen 100 mg tablet Discontinued 100 mg PO THREE TIMES A DAY as needed for pain 90 4 November 04, 2023 12:00am November 20, 2023 2:38pm Food Supplemt, Lactose-Reduced (Ensure Enlive) 0.08 gram-1.5 kcal/mL Liquid (10 sources) Start: 10-23-2021 End: 10-23-2021 take 1 mL by mouth four times daily Food Supplemt, Lactose-Reduced (Ensure Enlive) 0.08 gram-1.5 kcal/mL Liquid Discontinued 120 ML PO 4 TIMES DAILY 0 October 23, 2021 10:19am October 23, 2021 4:38pm Start: 10-23-2021 End: 10-23-2021 take 1 mL by mouth four times daily Food Supplemt, Lactose-Reduced (Ensure Enlive) 0.08 gram-1.5 kcal/mL Liquid Discontinued 120 mL PO 4 TIMES DAILY 0 0 October 23, 2021 12:00am October 23, 2021 4:38pm Start: 10-23-2021 End: 10-23-2021 take 1 mL by mouth four times daily Food Supplemt, Lactose-Reduced (Ensure Enlive) 0.08 gram-1.5 kcal/mL Liquid Discontinued 120 mL PO 4 TIMES DAILY 0 October 23, 2021 12:00am October 23, 2021 4:38pm Start: 10-23-2021 End: 03-23-2022 take 1 mL by mouth four times daily Food Supplemt, Lactose-Reduced (Ensure Enlive) 0.08 gram-1.5 kcal/mL Liquid Discontinued 120 ML PO 4 TIMES DAILY 0 October 22, 2021 11:00pm October 23, 2021 3:38pm Start: 10-23-2021 End: 10-23-2021 take 1 mL by mouth four times daily Food Supplemt, Lactose-Reduced (Ensure Enlive) 0.08 gram-1.5 kcal/mL Liquid Discontinued 120 ML PO 4 TIMES DAILY 0 October 23, 2021 12:00am October 23, 2021 4:38pm Food Supplemt, Lactose-Reduced (Ensure Enlive) 0.08 gram-1.5 kcal/mL liquid (10 sources) Start: 10-23-2021 End: 11-06-2021 take 1 mL by mouth four times daily Food Supplemt, Lactose-Reduced (Ensure Enlive) 0.08 gram-1.5 kcal/mL liquid Discontinued 120 mL PO 4 TIMES DAILY October 23, 2021 4:37pm November 06, 2021 8:34pm Supplement Start: 10-23-2021 End: 11-06-2021 take 1 mL by mouth four times daily Food Supplemt, Lactose-Reduced (Ensure Enlive) 0.08 gram-1.5 kcal/mL liquid Discontinued 120 mL PO 4 TIMES DAILY October 23, 2021 4:37pm November 06, 2021 8:34pm Start: 10-23-2021 End: 11-06-2021 take 1 mL by mouth four times daily Food Supplemt, Lactose-Reduced (Ensure Enlive) 0.08 gram-1.5 kcal/mL liquid Discontinued 120 ML PO 4 TIMES DAILY October 23, 2021 3:37pm November 06, 2021 7:34pm Start: 10-23-2021 End: 11-06-2021 take 1 mL by mouth four times daily Food Supplemt, Lactose-Reduced (Ensure Enlive) 0.08 gram-1.5 kcal/mL liquid Discontinued 120 ML PO 4 TIMES DAILY October 23, 2021 4:37pm November 06, 2021 8:34pm ibuprofen 400 mg oral tablet (10 sources) Nonsteroidal Anti-inflammatory Drug Start: 10-23-2021 End: 11-06-2021 take 1 tablet by mouth every six hours as needed for pain Ibuprofen 400 mg Tablet Discontinued 400 mg PO EVERY 6 HOURS NEEDED as needed for Pain Score 1-5 0 0 October 23, 2021 12:00am November 06, 2021 8:34pm levETIRAcetam 500 mg oral tablet (20 sources) Start: 08-27-2022 End: 10-09-2022 take 1 tablet by mouth twice daily Levetiracetam 250 mg tablet Discontinued 250 mg PO TWICE A DAY 14 0 August 27, 2022 1:00am October 09, 2022 9:33am Start: 08-27-2022 End: 10-09-2022 Levetiracetam 500 mg tablet Discontinued 500 mg PO TWICE A DAY 60 5 August 27, 2022 1:00am October 09, 2022 9:33am Begin after completing 1 week course of levetiracetam 250 mg twice daily Start: 02-24-2022 End: 03-27-2022 take 1 tablet by mouth twice daily Levetiracetam (Keppra) 500 mg tablet Discontinued 500 mg PO TWICE A DAY 60 0 February 24, 2022 12:00am March 27, 2022 10:58am Tremor Tremor, unspecified magnesium chloride 535 mg delayed release oral tablet (20 sources) Start: 10-23-2021 End: 11-06-2021 Magnesium Chloride (Mag 64) 64 mg tablet,delayed release (DR/EC) Discontinued 128 mg PO DAILY October 23, 2021 4:37pm November 06, 2021 8:34pm Supplement magnesium citrate 100 mg oral tablet (7 sources) Start: 03-27-2022 End: 07-21-2022 take 1 capsule by mouth once daily Magnesium Citrate 100 mg capsule Discontinued 100 mg PO DAILY March 27, 2022 12:00am July 21, 2022 10:53am meloxicam 7.5 mg oral tablet (16 sources) Nonsteroidal Anti-inflammatory Drug Start: 01-29-2023 End: 08-17-2023 take 1 tablet by mouth twice daily as needed for pain Meloxicam 7.5 mg tablet Discontinued 7.5 mg PO TWICE A DAY as needed for pain 60 5 January 29, 2023 12:00am August 17, 2023 9:00am Start: 05-18-2018 End: 05-20-2018 take 1 tablet by mouth once daily Meloxicam 15 MG tablet Discontinued 15 mg PO DAILY May 18, 2018 12:00am May 20, 2018 1:38pm PAIN Menthol / Zinc Oxide (20 sources) Start: 10-23-2021 End: 11-06-2021 Menthol-Zinc Oxide (Calmosep [place]) 0.44-20.6 % ointment Discontinued 1 NMA TOPICAL THREE TIMES A DAY October 23, 2021 4:37pm November 06, 2021 8:34pm Check with primary doctor Please contact the information source for Protocol details. Start: 10-23-2021 End: 11-06-2021 Menthol-Zinc Oxide (Calmosep [place]) 0.44-20.6 % ointment Discontinued 1 NMA TOPICAL THREE TIMES A DAY October 23, 2021 4:37pm November 06, 2021 8:34pm Please contact the information source for Protocol details. Start: 10-23-2021 End: 11-06-2021 Menthol-Zinc Oxide (Calmosep [place]) 0.44-20.6 % ointment Discontinued 1 APPLIC TOPICAL THREE TIMES A DAY October 23, 2021 3:37pm November 06, 2021 7:34pm Start: 10-23-2021 End: 11-06-2021 Menthol-Zinc Oxide (Calmosep [place]) 0.44-20.6 % ointment Discontinued 1 APPLIC TOPICAL THREE TIMES A DAY October 23, 2021 4:37pm November 06, 2021 8:34pm Start: 10-23-2021 End: 10-23-2021 Menthol-Zinc Oxide (Calmosep [place]) 0.44-20.6 % Ointment Discontinued 1 APPLIC TOPICAL THREE TIMES A DAY 0 October 23, 2021 10:28am October 23, 2021 4:38pm Start: 10-23-2021 End: 10-23-2021 Menthol-Zinc Oxide (Calmosep [place]) 0.44-20.6 % Ointment Discontinued 1 NMA TOPICAL THREE TIMES A DAY 0 0 October 23, 2021 12:00am October 23, 2021 4:38pm Please contact the information source for Protocol details. Start: 10-23-2021 End: 10-23-2021 Menthol-Zinc Oxide (Calmosep [place]) 0.44-20.6 % Ointment Discontinued 1 NMA TOPICAL THREE TIMES A DAY 0 October 23, 2021 12:00am October 23, 2021 4:38pm Please contact the information source for Protocol details. Start: 10-23-2021 End: 10-23-2021 Menthol-Zinc Oxide (Calmosep [place]) 0.44-20.6 % Ointment Discontinued 1 APPLIC TOPICAL THREE TIMES A DAY 0 October 22, 2021 11:00pm October 23, 2021 3:38pm Start: 10-23-2021 End: 10-23-2021 Menthol-Zinc Oxide (Calmosep [place]) 0.44-20.6 % Ointment Discontinued 1 APPLIC TOPICAL THREE TIMES A DAY 0 October 23, 2021 12:00am October 23, 2021 4:38pm nystatin 100 unt/mg topical powder (20 sources) Polyene Antifungal Start: 10-23-2021 End: 11-06-2021 Nystatin (Nyamyc) 100,000 unit/gram powder Discontinued 1 NMA TOPICAL TWICE A DAY October 23, 2021 4:37pm November 06, 2021 8:34pm Check with primary doctor Please contact the information source for Protocol details. Start: 10-23-2021 End: 11-06-2021 Nystatin (Nyamyc) 100,000 un it/gram powder Discontinued 1 APPLIC TOPICAL TWICE A DAY October 23, 2021 4:37pm November 06, 2021 8:34pm oxyCODONE hydrochloride 5 mg oral tablet (12 sources) Opioid Agonist Start: 09-30-2024 End: 10-24-2024 take 1 tablet by mouth every four hours as needed for pain Oxycodone 5 mg Tablet Discontinued 5 mg PO EVERY 4 HOURS NEEDED as needed for Pain Score 4-10 6 1 0 September 30, 2024 October 24, 2024 8:04am Intertrochanteric fracture of right femur Start: 10-23-2021 End: 11-06-2021 take 1 tablet by mouth every six hours as needed for pain Oxycodone 5 mg Tablet Discontinued 5 mg PO EVERY 6 HOURS NEEDED as needed for Pain Score 6-10 0 0 October 23, 2021 November 06, 2021 8:34pm Potassium, Sodium Phosphates (16 sources) Start: 10-23-2021 End: 11-06-2021 Potassium, Sodium Phosphates Discontinued 1 PACKET PO DAILY October 23, 2021 3:37pm November 06, 2021 7:34pm Start: 10-23-2021 End: 11-06-2021 Potassium, Sodium Phosphates Discontinued 1 PACKET PO DAILY October 23, 2021 4:37pm November 06, 2021 8:34pm Start: 10-23-2021 End: 10-23-2021 Potassium, Sodium Phosphates Discontinued 1 PACKET PO DAILY 0 October 23, 2021 10:28am October 23, 2021 4:38pm Start: 10-23-2021 End: 10-23-2021 Potassium, Sodium Phosphates Discontinued 1 PACKET PO DAILY 0 October 22, 2021 11:00pm October 23, 2021 3:38pm Start: 10-23-2021 End: 10-23-2021 Potassium, Sodium Phosphates Discontinued 1 PACKET PO DAILY 0 October 23, 2021 12:00am October 23, 2021 4:38pm Potassium, Sodium Phosphates 280-160-250 mg Powder In Packet (2 sources) Start: 10-23-2021 End: 10-23-2021 Potassium, Sodium Phosphates 280-160-250 mg Powder In Packet Discontinued 1 NMA PO DAILY 0 0 October 23, 2021 12:00am October 23, 2021 4:38pm Start: 10-23-2021 End: 10-23-2021 Potassium, Sodium Phosphates 280-160-250 mg Powder In Packet Discontinued 1 NMA PO DAILY 0 October 23, 2021 12:00am October 23, 2021 4:38pm Potassium, Sodium Phosphates 280-160-250 mg powder in packet (2 sources) Start: 10-23-2021 End: 11-06-2021 Potassium, Sodium Phosphates 280-160-250 mg powder in packet Discontinued 1 NMA PO DAILY October 23, 2021 4:37pm November 06, 2021 8:34pm Supplement Start: 10-23-2021 End: 11-06-2021 Potassium, Sodium Phosphates 280-160-250 mg powder in packet Discontinued 1 NMA PO DAILY October 23, 2021 4:37pm November 06, 2021 8:34pm prazosin 1 mg oral capsule (20 sources) alpha-Adrenergic Nereyda Start: 02-08-2021 End: 01-23-2022 take 1 capsule by mouth once daily Prazosin 1 mg Capsule Discontinued 1 mg PO DAILY September 25, 2021 1:00am January 23, 2022 10:38am blood pressure Comment on above: Take [address] [facility] daily at bedtime. predniSONE 10 mg oral tablet (10 sources) Start: 05-18-2018 End: 10-26-2018 Prednisone 10 MG tablet Discontinued 10 mg PO NEEDED as needed for Pain May 18, 2018 12:00am October 26, 2018 2:27pm promethazine hydrochloride 25 mg oral tablet (20 sources) Phenothiazine Start: 01-23-2022 End: 07-21-2022 take 1 tablet by mouth three times daily as needed Promethazine 25 mg tablet Discontinued 25 mg PO THREE TIMES A DAY as needed January 23, 2022 12:00am July 21, 2022 10:53am Start: 06-12-2020 take 1 tablet by allie th every six hours as needed promethazine (PHENERGAN) 25 mg tablet Take 1 tablet by mouth every 6 hours as needed. 30 tablet 1 06/12/2020 Active Comment on above: Take 1 tablet by allie th every 6 hours as needed. 24 hr propranolol hydrochloride 60 mg extended release oral capsule (20 sources) beta-Adrenergic Nereyda Start: End: take 1 capsule by mouth once daily Propranolol 60 mg capsule,extended release 24 hr Discontinued 60 mg PO DAILY July 31, 2024 1:00am August 16, 2024 3:08pm Start: 07-02-2023 End: 11-20-2023 take 1 capsule by mouth once daily Propranolol 60 mg capsule,extended release 24 hr Discontinued 60 mg PO DAILY 60 5 November 04, 2023 1:18pm November 20, 2023 2:38pm Start: 01-23-2022 End: 07-02-2023 take 1 tablet by mouth once daily Propranolol 60 mg tablet Discontinued 60 mg PO DAILY 30 4 April 27, 2023 2:46pm July 02, 2023 1:15pm End: 06-01-2024 take 1 capsule by mouth once daily propranolol HCl (PROPRANOLOL ORAL) Take 1 capsule by mouth once daily. 06/01/2024 Discontinued take [address] [facility] once daily propranolol HCl (PROPRANOLOL ORAL) Take 1 capsule by mouth once daily. 0 Active Comment on above: Take 1 capsule by mo uth once daily. Right wrist splint (6 sources) Start: 01-29-2023 End: 04-22-2024 Right wrist splint Discontinued 0 .ROUTE .MEDSUPPLY 1 0 January 29, 2023 12:00am April 22, 2024 11:00am Carpal tunnel syndrome of right wrist Carpal tunnel syndrome, right upper limb Right carpal tunnel syndrome (ICD 10: G56.01) Wear at night Start: 01-29-2023 End: 04-22-2024 Right wrist splint Discontin ued 0 .ROUTE .MEDSUPPLY 1 January 29, 2023 12:00am April 22, 2024 11:00am Wear at night Start: 01-29-2023 Right wrist sp lint Active 0 .ROUTE .MEDSUPPLY 1 January 29, 2023 12:00am Wear at night Start: 01-29-2023 Right wrist sp lint Active 0 .ROUTE .MEDSUPPLY 1 January 28, 2023 11:00pm Wear at night rivaroxaban 10 mg oral tablet (2 sources) Factor Xa Inhibitor Start: 09-30-2024 End: 10-15-2024 take 1 tablet by mouth once daily Rivaroxaban (Xarelto) 10 mg Tablet Discontinued 10 mg PO DAILY@0600 0 0 September 30, 2024 1:00am October 14, 2024 12:00am October 15, 2024 12:26am rOPINIRole 1 mg oral tablet (1 source) Nonergot Dopamine Agonist Start: 02-08-2021 End: 07-11-2021 take 1 tablet by mouth once daily at bedtime rOPINIRole (REQUIP) 1 mg tablet Indications: Essential tremor Take 1 tablet by mouth daily at bedtime. 30 tablet 2 02/08/2021 07/11/2021 Discontinued (Discontinued by Patient) Sodium Chloride 0.9 % (Flush) (10 sources) Start: 10-23-2021 End: 11-06-2021 Sodium Chloride 0.9 % (Flush) (Bd Posiflush Normal Saline 0.9) Syringe Discontinued 10 - 40 mL IV DIRECTED as needed for Saline Flush 0 0 October 23, 2021 10:33am November 06, 2021 8:34pm To flush PICC line once per shift Start: 10-23-2021 End: 11-06-2021 Sodium Chloride 0.9 % (Flush ) (Bd Posiflush Normal Saline 0.9) Syringe Discontinued 10 - 40 mL IV DIRECTED as needed for Saline Flush October 23, 2021 10:33am November 06, 2021 8:34pm To flush PICC line once per shift Start: 10-23-2021 End: 11-06-2021 Sodium Chloride 0.9 % (Flush ) (Bd Posiflush Normal Saline 0.9) Syringe Discontinued 10 - 40 ML IV DIRECTED October 23, 2021 9:33am November 06, 2021 7:34pm To flush PICC line once per shift Start: 10-23-2021 End: 11-06-2021 Sodium Chloride 0.9 % (Flush ) (Bd Posiflush Normal Saline 0.9) Syringe Discontinued 10 - 40 ML IV DIRECTED October 23, 2021 10:33am November 06, 2021 8:34pm To flush PICC line once per shift Start: 10-23-2021 End: 11-06-2021 Sodium Chloride 0.9 % (Flush ) (Bd Posiflush Normal Saline 0.9) Syringe Discontinued 10 - 40 ML IV DIRECTED October 23, 2021 10:32am November 06, 2021 8:34pm To flush PICC line once per shift topiramate 25 mg oral tablet (8 sources) Start: 01-23-2022 End: 02-24-2022 take 1 tablet by mouth once daily Topiramate (Topamax) 25 mg tablet Discontinued 25 mg PO DAILY 30 January 23, 2022 12:00am February 24, 2022 10:59am Tremor Tremor, unspecified trihexyphenidyl hydrochloride 5 mg oral tablet (14 sources) Start: 10-09-2022 End: 01-27-2023 take 1 tablet by mouth twice daily Trihexyphenidyl 5 mg tablet Discontinued 5 mg PO TWICE A DAY 60 October 09, 2022 1:00am January 27, 2023 11:23am Start: 08-28-2022 End: 10-09-2022 take 1 tablet by mouth once daily, then take 1 tablet by mouth twice daily Trihexyphenidyl 2 mg tablet Discontinued 2 mg .ROUTE .COMPLEX 60 4 August 28, 2022 1:00am October 09, 2022 9:48am Take 1 tablet PO daily for 1 week then 1 tablet twice daily thereafter valACYclovir 1000 mg oral tablet (4 sources) Herpesvirus Nucleoside Analog DNA Polymerase Inhibitor, Herpes Simplex Virus Nucleoside Analog DNA Polymerase Inhibitor, Herpes Zoster Virus Nucleoside Analog DNA Polymerase Inhibitor Start: 02-16-2024 End: 02-24-2024 Valacyclovir 1 gram tablet Discontinued 1000 mg PO THREE TIMES A DAY 21 7 0 February 17, 2024 12:00am February 23, 2024 12:00am February 24, 2024 12:05am Problems Active Problems Problem Classification Problem Date Documented Da te Episodic/Chronic Abdominal pain (7 sources) Abdominal pain; Translations: [Unspecified abdominal pain] 02-14-2022 Episodic Comment on above: Patient presents for concern for possible infection at a suture along his laparotomy closure from several months ago. He states that he is presenting on the abundance of caution given his history of prior staph infections. He denies noting any redness or drainage of this area just some tenderness. On exam, I confirm these findings with only a small scab in the superior aspect of the laparotomy scar. There is some firmness at this location, however, I do not visualize any suture material. Therefore I am led to believe this is a rejection of suture material rather than any infection. I advised patient that I would need to perform a local block and remove the scab to look for any underlying suture material. Otherwise, I have advised we could wait to see if his body further rejects the suture material and address the issue if it arises. Mr. Martin opts for the latter and states that his main purpose and presenting today was to be sure he was not developing an infection. Precautionary signs were given. Acquired foot deformities (9 sources) Foot-drop; Translations: [Foot drop, right foot] 07-25-2022 Episodic Anxiety disorders (20 sources) Posttraumatic stress disorder; Translations: [Post-traumatic stress disorder, unspecified] 01-23-2022 Chronic Complication of device; implant or graft (7 sources) Other mechanical complication of permanent sutures, initial encounter; Translations: [Protruding suture present on examination] 06-09-2022 Episodic Comment on above: Patient with spittin g fascial suture following complex laparotomy closure October 2021. Suture knot was exposed and no longer serving a functional purpose. There is noninfected appearance to this area. In order to facilitate improved patient comfort, the suture was sharply removed at bedside today without complication. Complications of surgical procedures or medical care (20 sources) Wound discharge; Translations: [Other complications of procedures, not elsewhere classified, initial encounter] Episodic Comment on above: Wound has minimal dr sigala. Wound care as above. Clinic follow-up in 1/2 weeks for wound check Patient's wound is w ell healing. There are no signs of infection. I applied some potassium nitrate to some granulation tissue in the superior aspect of the wound. I also removed an emerging Prolene suture and both the uppermost and lowermost retention sutures. I then cleaned the wound of some of the dried exudate. Patient is informed that he is to now shower with the wound exposed to water and using a clean washcloth lightly abrade the wound to lift some of the remaining residue. Given the decreased depth of the wound, we will plan to lay a moistened gauze into the wound bed. Patient is encouraged to continue his good protein intake. Plan to follow-up in a week and a half for wound evaluation. Diabetes mellitus without complication (1 source) Impaired fasting glucose; Translations: [Impaired fasting glucose] Onset: Episodic Diverticulosis and diverticulitis (13 sources) Diverticulosis of small intestine; Translations: [Diverticulosis of small intestine without perforation or abscess without bleeding] Chronic Esophageal disorders (20 sources) Gastroesophageal reflux disease; Translations: [Gastro-esophageal reflux disease without esophagitis] Onset: 4 10-20-2013 Chronic Comment on above: Patient denies any h eartburn or reflux symptomology after cessation of alcohol use. I do not find any indication therefore to proceed with diagnostic EGD. Essential hypertension (20 sources) Essential hypertension; Translations: [Essential (primary) hypertension] Onset: 7 09-08-2016 Chronic Fever of unknown origin (1 source) Fever; Translations: [Fever, unspecified] 08-16-2024 Episodic Fluid and electrolyte disorders (13 sources) Dehydration; Translations: [Dehydration] Episodic Fracture of neck of femur (hip) (9 sources) Fracture of bone of hip region; Translations: [Fracture of unspecified part of neck of unspecified femur, initial encounter for closed fracture] Onset: 5 10-08-2024 Episodic Genitourinary symptoms and ill-defined conditions (2 sources) Urinary incontinence; Translations: [Unspecified urinary incontinence] Onset: 5 04-14-2025 Chronic Headache; including migraine (12 sources) Cluster headache; Translations: [Cluster headache syndrome, unspecified, not intractable] Onset: 4 12-14-2013 Chronic Malaise and fatigue (13 sources) Asthenia; Translations: [Other malaise] Episodic Noninfectious gastroenteritis (1 source) Chronic diarrhea; Translations: [Noninfective gastroenteritis and colitis, unspecified] 04-14-2025 Episodic Open wounds of head; neck; and trunk (11 sources) Open wound of abdomen; Translations: [Unspecified open wound of abdominal wall, unspecified quadrant without penetration into peritoneal cavity, initial encounter] Episodic Other aftercare (1 source) Post-discharge follow-up; Translations: [Encounter for follow-up examination after completed treatment for conditions other than malignant neoplasm] 10-24-2024 Episodic Other and ill-defined cerebrovascular disease (7 sources) Small vessel cerebrovascular disease; Translations: [Cerebrovascular disease, unspecified] 07-25-2022 Chronic Other and ill-defined cerebrovascular disease (2 sources) Cerebrovascular disease, unspecified; Translations: [Unspecified cerebrovascular disease] 07-21-2022 Chronic Other circulatory disease (2 sources) Elevated blood pressure; Translations: [Elevated blood-pressure reading, without diagnosis of hypertension] 08-08-2024 Episodic Other connective tissue disease (10 sources) Tendinitis of left elbow; Translations: [Other enthesopathies, not elsewhere classified] 10-26-2018 Episodic Other connective tissue disease (1 source) Swelling of right lower limb; Translations: [Other specified soft tissue disorders] 10-24-2024 Episodic Other endocrine disorders (12 sources) Adrenal incidentaloma; Translations: [Other specified disorders of adrenal gland] Onset: 9 08-19-2018 Chronic Other gastrointestinal disorders (1 source) Full incontinence of feces; Translations: [Full incontinence of feces] Onset: 5 Episodic Other hereditary and degenerative nervous system conditions (7 sources) Essential tremor; Translations: [Essential tremor] 07-25-2022 Chronic Other hereditary and degenerative nervous system conditions (6 sources) Essential tremor; Translations: [Essential and other specified forms of tremor] Chronic Other hereditary and degenerative nervous system conditions (7 sources) Rubral tremor; Translations: [Other specified forms of tremor] 07-25-2022 Chronic Other hereditary and degenerative nervous system conditions (4 sources) Other specified forms of tremor; Translations: [Lack of coordination] 07-21-2022 Chronic Other hereditary and degenerative nervous system conditions (6 sources) Primary progressive cerebellar degeneration; Translations: [Other hereditary ataxias] 10-30-2022 Chronic Other hereditary and degenerative nervous system conditions (2 sources) Other hereditary ataxias; Translations: [Primary cerebellar degeneration] 08-31-2023 Chronic Other hereditary and degenerative nervous system conditions (3 sources) System disorder of the nervous system; Translations: [Other specified extrapyramidal and movement disorders] 09-24-2023 Chronic Other hereditary and degenerative nervous system conditions (1 source) Resting tremor; Translations: [Other specified forms of tremor] 04-14-2025 Chronic Other nervous system disorders (8 sources) Neuropathy; Translations: [Polyneuropathy, unspecified] 01-23-2022 Chronic Other nervous system disorders (3 sources) Carpal tunnel syndrome; Translations: [Carpal tunnel syndrome, right upper limb] 07-25-2022 Chronic Other nervous system disorders (2 sources) Carpal tunnel syndrome, right upper limb; Translations: [Carpal tunnel syndrome] 07-21-2022 Chronic Other nervous system disorders (4 sources) Carpal tunnel syndrome of right wrist; Translations: [Carpal tunnel syndrome, right upper limb] 07-25-2022 Chronic Other nervous system disorders (1 source) Other chronic pain; Translations: [Other chronic pain] Onset: Chronic Other nervous system disorders (1 source) Abnormal involuntary movement; Translations: [Unspecified abnormal involuntary movements] Episodic Other nervous system disorders (9 sources) Tremor; Translations: [Tremor, unspecified] 01-23-2022 Episodic Other nervous system disorders (6 sources) Tremor, unspecified; Translations: [Abnormal involuntary movements] Episodic Other non-traumatic joint disorders (1 source) Chronic pain of right upper limb; Translations: [Pain in right shoulder] 06-12-2021 Episodic Other non-traumatic joint disorders (2 sources) Joint pain; Translations: [Pain in unspecified joint] 04-22-2024 Episodic Other nutritional; endocrine; and metabolic disorders (8 sources) Hypocalcemia; Translations: [Hypocalcemia] 01-23-2022 Chronic Other nutritional; endocrine; and metabolic disorders (1 source) Pediatric failure to thrive Episodic Other screening for suspected conditions (not mental disorders or infectious disease) (7 sources) Patient encounter status; Translations: [Encounter for screening for malignant neoplasm of colon] 06-09-2022 Episodic Comment on above: This is a 59-year-ol d male, well-known to me for prior history related to perforated appendicitis now with ileocolic anastomosis, who presents for screening colonoscopy. He has no prior screening history aside from a remote Cologuard test. He denies any concerns with his bowel habits. Given the absence of any screening history, I certainly agree with the indication and we will plan to proceed with a endoscopic investigation under local MAC. Procedure (including prep) as well as post procedure expectations were described in detail. Other skin disorders (2 sources) Eruption; Translations: [Rash and other nonspecific skin eruption] 02-16-2024 Episodic Pancreatic disorders (not diabetes) (20 sources) Acute pancreatitis; Translations: [Acute pancreatitis without necrosis or infection, unspecified] Onset: 9 08-19-2018 Episodic Paralysis (9 sources) Cauda equina syndrome; Translations: [Cauda equina syndrome] 07-25-2022 Chronic Parkinson`s disease (1 source) Parkinson`s disease; Translations: [Parkinson's disease without dyskinesia, without mention of fluctuations] Onset: 5 Peritonitis and intestinal abscess (16 sources) Abdominal abscess; Translations: [Peritoneal abscess] Episodic Residual codes; unclassified (5 sources) Obstructive sleep apnea syndrome; Translations: [Obstructive sleep apnea (adult) (pediatric)] 08-31-2023 Chronic Comment on above: AHI of 13.2 Residual codes; unclassified (4 sources) Obstructive sleep apnea (adult) (pediatric); Translations: [Obstructive sleep apnea (adult)(pediatric)] 08-26-2023 Chronic Residual codes; unclassified (1 source) Insomnia; Translations: [Insomnia, unspecified] 06-01-2024 Episodic Residual codes; unclassified (1 source) History of operative procedure on hip; Translations: [Other specified postprocedural states] 10-24-2024 Episodic Skin and subcutaneous tissue infections (6 sources) Cellulitis of lower leg; Translations: [Cellulitis of left lower limb] 10-27-2022 Episodic Spondylosis; intervertebral disc disorders; other back problems (20 sources) Degeneration of lumbosacral intervertebral disc; Translations: [Other intervertebral disc degeneration, lumbosacral region] Onset: 2 11-27-2003 Chronic Spondylosis; intervertebral disc disorders; other back problems (20 sources) Thoracic and lumbosacral neuritis; Translations: [Thoracic or lumbosacral neuritis or radiculitis, unspecified] Onset: 2 11-27-2003 Episodic Substance-related disorders (3 sources) Cigarette smoker ; Translations: [Nicotine dependence, cigarettes, uncomplicated] Onset: 5 04-22-2024 Chronic Comment on above: marijuana Unclassified (1 source) Parkinson's disease; Translations: [Parkinson's disease without dyskinesia or fluctuating manifestations (HCC)] 06-01-2024 Chronic Unclassified (1 source) M54.2 - Cervicalgia,G89.29 - Other chronic pain Unclassified (1 source) Low back pain, unspecified; Translations: [Low back pain, unspecified] Onset: Viral infection (2 sources) Herpes zoster; Translations: [Zoster without complications] 02-16-2024 Episodic Past or Other Problems Problem Classification Problem Date Documented Date Episodic/Chronic Administrative/social admission (2 sources) Persons encountering health services in other specified circumstances; Translations: [Other reasons for seeking consultation] Onset: 08-16-2024 Episodic Diseases of mouth; excluding dental (5 sources) Edema of uvula; Translations: [Other lesions of oral mucosa] Onset: 10-07-2024 10-08-2024 Episodic Neoplasms of unspecified nature or uncertain behavior (3 sources) Neoplasm of adrenal gland; 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] Onset: 06-09-2024 04-22-2024 Episodic Other acquired deformities (12 sources) Other specified acquired deformities of unspecified lower leg; Translations: [Other acquired deformities of ankle and foot] Onset: 01-18-2002 11-27-2003 Episodic Other connective tissue disease (1 source) Pain in right lower leg; Translations: [Pain in right lower leg] Onset: 11-11-2024 Episodic Other connective tissue disease (1 source) Other specified soft tissue disorders; Translations: [Other specified soft tissue disorders] Onset: 10-24-2024 Episodic Other nervous system disorders (12 sources) Abnormal gait; Translations: [Unspecified abnormalities of gait and mobility] Onset: 01-18-2002 11-27-2003 Episodic Residual codes; unclassified (12 sources) History of hernia repair; Translations: [Other specified postprocedural states] Onset: 08-13-2016 08-13-2016 Episodic Residual codes; unclassified (1 source) Other specified postprocedural states; Translations: [Other specified postprocedural states] Onset: 10-24-2024 Episodic Respiratory failure; insufficiency; arrest (adult) (4 sources) Acute respiratory failure; Translations: [Acute respiratory failure, unspecified whether with hypoxia or hypercapnia] Onset: 10-07-2024 10-08-2024 Episodic Unclassified (7 sources) neck/back pain 03-03-2022 Results Test Name Value Interpretation Reference Range Facility Internal Medicine Office Vis iton 04-25-2025 Internal Medicine Office Visit Normal [facility] Low Dose CT Lung Screeningon 04-21-[address] Lung Screening Normal [facility] Absolute lymphocyte countOrd ered By: Franklin Neal on 04-14-2025 Lymphocytes Auto (Unsp spec) [#/Vol] 1.87 10*3/uL 0.83-4.51 [facility] Absolute neutrophil countOrd ered By: Franklin Neal on 04-14-2025 Neutrophils (Bld) [#/Vol] 4.3 10*3/uL 2.0-7.7 [facility] Anion gap in Serum or Plasma Ordered By: Franklin Neal on 04-14-2025 Anion gap [Moles/Vol] 11 mmol/L 5-15 [facility] Automated lymphocyte count a s percentage of total leukocytesOrdered By: Franklin Neal on 04-14-2025 Lymphocytes/100 WBC Auto (Unsp spec) 26.8 % 19-41 [facility] BUN/creatinine ratioOrdered By: Franklin Neal on 04-14-2025 Urea nitrogen/Creatinine [Mass ratio] 30.4 mg/mg High 10-20 [facility] Basophil percentageOrdered B y: Franklin Neal on 04-14-2025 Basophils/100 WBC (Bld) 0.9 % 0-1 [facility] Bilirubin, totalOrdered By: Franklin Neal on 04-14-2025 Bilirubin [Mass/Vol] 0.39 mg/dL 0.00-1.30 [facility] CBC W/Diff, Automatedon 04-03-2024 Absolute Lymph 1.87 X10 3/uL Normal 0.83-4.51 [facility] Comment on above: Performed By: #### L 500.4050, L100.0100 ####[facility] [address] [place], [address] Absolute Neut 4.3 X10 3/uL Normal 2.0-7.7 [facility] Comment on above: Performed By: #### L 500.4050, L100.0100 ####[facility] [address] [place], [address] Basophils/100 WBC (Bld) 0.9 % Normal 0-1 [facility] Comment on above: Performed By: #### L 500.4050, L100.0100 ####[facility] [address] [place], [address] Eosinophils/100 WBC (Bld) 1.0 % Normal 0-5 [facility] Comment on above: Performed By: #### L 500.4050, L100.0100 ####[facility] [address] [place], [address] Erythrocyte distribution width (RBC) [Ratio] 12.4 % Normal 11.6-14.6 [facility] Comment on above: Performed By: #### L 500.4050, L100.0100 ####[facility] [address] [place], [address] Hematocrit (Bld) [Volume fraction] 38.7 % Low 40-54 [facility] Comment on above: Performed By: #### L 500.4050, L100.0100 ####[facility] [address] [place], [address] Hemoglobin (Bld) [Mass/Vol] 13.4 g/dL Normal 13.0-16.5 [facility] Comment on above: Performed By: #### L 500.4050, L100.0100 ####[facility] [address] [place], [address] IG% 0.300 Normal 0.0-0.9 [facility] Comment on above: Result Comment: IG% - Immature Granulocytes (promyelocytes, myelocytes andmetamyelocytes) > 1% indicates that a LEFT SHIFT is Present. Performed By: #### L 500.4050, L100.0100 ####[facility] [address] [place], [address] Lymphocytes/100 WBC (Bld) 26.8 % Normal 19-41 [facility] Comment on above: Performed By: #### L 500.4050, L100.0100 ####[facility] [address] [place], [address] MCH (RBC) [Entitic mass] 32.4 pg High 27.0-32.0 [facility] Comment on above: Performed By: #### L 500.4050, L100.0100 ####[facility] [address] [place], [address] MCHC (RBC) [Mass/Vol] 34.6 g/dL Normal 32-36 [facility] Comment on above: Performed By: #### L 500.4050, L100.0100 ####[facility] [address] [place], [address] MCV (RBC) [Entitic vol] 93.7 fL Normal 80-94 [facility] Comment on above: Performed By: #### L 500.4050, L100.0100 ####[facility] [address] [place], [address] Monocytes/100 WBC (Bld) 10.0 % Normal 0-10 [facility] Comment on above: Performed By: #### L 500.4050, L100.0100 ####[facility] [address] [place], [address] Neutrophils/100 WBC (Bld) 61.0 % Normal 47-70 [facility] Comment on above: Performed By: #### L 500.4050, L100.0100 ####[facility] [address] [place], [address] Nucleated RBC (Bld) [#/Vol] 0 10*3/uL Normal 0-5 [facility] Comment on above: Performed By: #### L 500.4050, L100.0100 ####[facility] [address] [place], [address] Platelet mean volume (Bld) [Entitic vol] 10.1 fL Normal 6.2-12.0 [facility] Comment on above: Performed By: #### L 500.4050, L100.0100 ####[facility] [address] [place], [address] Platelets (Bld) [#/Vol] 208 10*3/uL Normal 150-450 [facility] Comment on above: Performed By: #### L 500.4050, L100.0100 ####[facility] [address] [place], [address] RBC (Bld) [#/Vol] 4.13 10*6/uL Low 4.6-6.2 [facility] Comment on above: Performed By: #### L 500.4050, L100.0100 ####[facility] [address] [place], [address] RDW SD 43.1 fl Normal 35.1-43.9 [facility] Comment on above: Performed By: #### L 500.4050, L100.0100 ####[facility] [address] [place], [address] WBC (Bld) [#/Vol] 7.0 10*3/uL Normal 4.4-11.0 [facility] Comment on above: Performed By: #### L 500.4050, L100.0100 ####[facility] [address] [place], [address] Carbon dioxide, total [Moles /volume] in Central venous bloodOrdered By: Franklin Neal on 04-14-2025 CO2 [Moles/Vol] 23.3 mmol/L 21.0-32.0 [facility] Chloride assayOrdered By: Ug o Neal on 04-14-2025 Chloride [Moles/Vol] 104 mmol/L 98-108 [facility] Comprehensive Metabolic Prof ilon 04-14-2025 Albumin [Mass/Vol] 4.2 g/dL Normal 3.4-4.8 [facility] Comment on above: Performed By: #### L 500.4050, L100.0100 ####[facility] [address] [place], [address] Albumin/Globulin [Mass ratio] 1.5 {ratio} Normal 0.9-2.4 [facility] Comment on above: Performed By: #### L 500.4050, L100.0100 ####[facility] [address] [place], [address] ALK PHOS 71 U/L Normal 40-129 [facility] Comment on above: Performed By: #### L 500.4050, L100.0100 ####[facility] [address] [place], [address] ALT [Catalytic activity/Vol] 10 U/L Normal <=46 [facility] Comment on above: Performed By: #### L 500.4050, L100.0100 ####[facility] [address] [place], [address] AST [Catalytic activity/Vol] 17 U/L Normal <=37 [facility] Comment on above: Performed By: #### L 500.4050, L100.0100 ####[facility] [address] [place], [address] Bilirubin [Mass/Vol] 0.39 mg/dL Normal 0.00-1.30 [facility] Comment on above: Performed By: #### L 500.4050, L100.0100 ####[facility] [address] [place], [address] BUN/CRE 30.4 RATIO High 10-20 [facility] Comment on above: Performed By: #### L 500.4050, L100.0100 ####[facility] [address] [place], [address] Calcium [Mass/Vol] 9.1 mg/dL Normal 7.6-11.0 [facility] Comment on above: Performed By: #### L 500.4050, L100.0100 ####[facility] [address] [place], [address] Chloride [Moles/Vol] 104 mmol/L Normal 98-108 [facility] Comment on above: Performed By: #### L 500.4050, L100.0100 ####[facility] [address] [place], [address] CO2 [Moles/Vol] 23.3 mmol/L Normal 21.0-32.0 [facility] Comment on above: Performed By: #### L 500.4050, L100.0100 ####[facility] [address] [place], [address] Creatinine [Mass/Vol] 0.61 mg/dL Low 0.70-1.20 [facility] Comment on above: Performed By: #### L 500.4050, L100.0100 ####[facility] [address] [place], [address] GAP 11 Normal 5-15 [facility] Comment on above: Performed By: #### L 500.4050, L100.0100 ####[facility] [address] [place], [address] GFR/1.73 sq M.predicted among non-blacks MDRD (S/P/Bld) [Vol rate/Area] 107 mL/min/{1.73_m2} Normal >60 [facility] Comment on above: Result Comment: mL/m in/1.73m2 CKD-EPI Creatinine Equation (2020) Performed By: #### L 500.4050, L100.0100 ####[facility] [address] [place], [address] Globulin (S) [Mass/Vol] 2.8 g/dL Normal 2.2-4.2 [facility] Comment on above: Performed By: #### L 500.4050, L100.0100 ####[facility] [address] [place], [address] Glucose [Mass/Vol] 125 mg/dL High 70-99 [facility] Comment on above: Performed By: #### L 500.4050, L100.0100 ####[facility] [address] [place], [address] Potassium [Moles/Vol] 4.3 mmol/L Normal 3.3-5.1 [facility] Comment on above: Performed By: #### L 500.4050, L100.0100 ####[facility] [address] [place], [address] Sodium [Moles/Vol] 138 mmol/L Normal 133-145 [facility] Comment on above: Performed By: #### L 500.4050, L100.0100 ####[facility] [address] [place], [address] T PROT 7.0 g/dL Normal 5.9-8.4 [facility] Comment on above: Performed By: #### L 500.4050, L100.0100 ####[facility] [address] [place], [address] Urea nitrogen [Mass/Vol] 18 mg/dL Normal 4-19 [facility] Comment on above: Performed By: #### L 500.4050, L100.0100 ####[facility] [address] [place], [address] Emergency Department Summary on 04-14-2025 Emergency Department Summary Normal [facility] Eosinophil percentageOrdered By: Franklinviolet Neal on 04-14-2025 Eosinophils/100 WBC (Bld) 1.0 % 0-5 [facility] Erythrocyte distribution wid th ratioOrdered By: Franklinviolet Neal on 04-14-2025 Erythrocyte distribution width (RBC) [Ratio] 12.4 % 11.6-14.6 [facility] Erythrocyte distribution wid th standard deviationOrdered By: Franklinviolet Neal on 04-14-2025 Erythrocyte distribution width (RBC) [Ratio] 43.1 fl 35.1-43.9 [facility] Glomerular filtration rate ( GFR) estimation/1.73 sq m using serum, plasma, or whole bOrdered By: Franklin Neal on 04-14-2025 GFR/1.73 sq M.predicted among non-blacks MDRD (S/P/Bld) [Vol rate/Area] 107 mL/min/{1.73_m2} >60 [facility] Comment on above: mL/min/1.73m2 CKD-EP I Creatinine Equation (2020) Hematocrit Auto (Bld) [Volum e fraction]Ordered By: Franklin Neal on 04-14-2025 Hematocrit (Bld) [Volume fraction] 38.7 % Low 40-54 [facility] Hemoglobin measurementOrdere d By: Franklin Neal on 04-14-2025 Hemoglobin (Bld) [Mass/Vol] 13.4 g/dL 13.0-16.5 [facility] Immature granulocytes/100 WB C Auto (Bld)Ordered By: Franklin Neal on 04-14-2025 Immature granulocytes/100 WBC (Bld) 0.300 % 0.0-0.9 [facility] Comment on above: IG% - Immature Granu locytes (promyelocytes, myelocytes and metamyelocytes) > 1% indicates that a LEFT SHIFT is Present. Laboratory - Chemistry and C hemistry - challengeOrdered By: Franklin Neal on 04-14-2025 AST [Catalytic activity/Vol] 17 U/L <38 [facility] Lumbar Spine 2 or 3 Viewson 04-14-2025 Lumbar Spine 2 or 3 Views Normal [facility] MCV (mean corpuscular volume ) determinationOrdered By: Franklin Neal on 04-14-2025 MCV (RBC) [Entitic vol] 93.7 fL 80-94 [facility] Mean corpuscular hemoglobin (MCH) determinationOrdered By: Franklin Neal on 04-14-2025 MCH (RBC) [Entitic mass] 32.4 pg High 27.0-32.0 [facility] Mean corpuscular hemoglobin concentration (MCHC) determinationOrdered By: Franklin Neal on 04-14-2025 MCHC (RBC) [Mass/Vol] 34.6 g/dL 32-36 [facility] Mean platelet volume determi nationOrdered By: Franklin Neal on 04-14-2025 Platelet mean volume (Bld) [Entitic vol] 10.1 fL 6.2-12.0 [facility] Monocyte percentageOrdered B y: Franklin Neal on 04-14-2025 Monocytes/100 WBC (Bld) 10.0 % 0-10 [facility] Neutrophil percentageOrdered By: Franklin Neal on 04-14-2025 Neutrophils/100 WBC (Bld) 61.0 % 47-70 [facility] Nucleated red blood cell per centageOrdered By: Franklin Neal on 04-14-2025 Nucleated RBC/100 WBC (Bld) [Ratio] 0 % 0-5 [facility] Platelet countOrdered By: Ada violet Ángel on 04-14-2025 Platelets (Bld) [#/Vol] 208 10*3/uL 150-450 [facility] Potassium measurement (mass/ volume)Ordered By: Franklin Neal on 04-14-2025 Potassium (Unsp spec) [Mass/Vol] 4.3 mmol/L 3.3-5.1 [facility] RBC Auto (Bld) [#/Vol]Ordere d By: Franklin Neal on 04-14-2025 RBC (Bld) [#/Vol] 4.13 10*6/uL Low 4.6-6.2 [facility] Serum creatinine measurement (mass/volume)Ordered By: Franklin Neal on 04-14-2025 Creatinine [Mass/Vol] 0.61 mg/dL Low 0.70-1.20 [facility] Serum globulin measurementOr dered By: Franklin Neal on 04-14-2025 Globulin (S) [Mass/Vol] 2.8 g/dL 2.2-4.2 [facility] Serum glucose measurement (m ass/volume)Ordered By: Franklin Neal on 04-14-2025 Glucose [Mass/Vol] 125 mg/dL High 70-99 [facility] Serum or plasma alanine valentin otransferase (ALT) measurementOrdered By: Franklin Neal on 04-14-2025 ALT [Catalytic activity/Vol] 10 U/L <47 [facility] Serum or plasma albumin jody urement (mass/volume)Ordered By: Franklin Neal on 04-14-2025 Albumin [Mass/Vol] 4.2 g/dL 3.4-4.8 [facility] Serum or plasma albumin/glob ulin mass ratioOrdered By: Franklinviolet Neal 04-14-2025 Albumin/Globulin [Mass ratio] 1.5 {ratio} 0.9-2.4 [facility] Serum or plasma alkaline skip sphatase measurementOrdered By: Franklinviolet Neal 04-14-2025 ALP [Catalytic activity/Vol] 71 U/L 40-129 [facility] [facility] Serum or plasma calcium jody urement (mass/volume)Ordered By: [facility] on 04-14-2025 Calcium [Mass/Vol] 9.1 mg/dL 7.6-11.0 [facility] Serum or plasma urea nitroge n measurement (mass/volume)Ordered By: [facility] on 04-14-2025 Urea nitrogen [Mass/Vol] 18 mg/dL 4-19 [facility] Sodium levelOrdered By: [facility] on 04-14-2025 Sodium [Moles/Vol] 138 mmol/L 133-145 [facility] Total proteinOrdered By: [facility] on 04-14-2025 Protein [Mass/Vol] 7.0 g/dL 5.9-8.4 [facility] White blood cell (WBC) count Ordered By: [facility] on 04-14-2025 WBC (Bld) [#/Vol] 7.0 10*3/uL 4.4-11.0 [facility] Venous Duplex US, Unilateral on 11-09-2024 Venous Duplex US, Unilateral Normal [facility] Venous duplex ultrasound rep ortOrdered By: Wayne Mendoza on 11-09-2024 US Vein [facility] [address] [place] [address] Venous Duplex US, Unilateral 11/09/24 1054 MR#: [id number] Acct: [id number] Name: OLGA MARTIN Rep #:[id number] : 1960 64 From: Wayne Mendoza MD Attending Dr: JOHN Blackman atus: REG CLI Ordering Dr: Maddison Saini Date: 11/09/24 Location: [facility] Sex: M C Admitted: Reason For Study Reason For Study: Right leg pain RIGHT LEFT GSV is normal. CFV is compressible, spontaneous, phasic, competent, CFV is compressible, spontaneous, phasic, competent and demonstrates normal augmentation. and demonstrates normal augmentation. FV is compressible, spontaneous, phasic, competent and demonstrates normal augmentation. POP V is compressible, spontaneous, phasic, competent and demonstrates normal augmentation. T/P Trunk is compressible. PTV is compressible. RT PerV is compressible. Procedure This is a venous duplex using B-mode, color flow and spectral Doppler. Exam performed in department. A preliminary report was called and/or faxed to Parvene LOPEZ. VL/Venous Duplex US, Unilateral Interpretation Summary Deep veins of the right lower extremity are patent and compressible segmentally.There is no evidence of right lower extremity deep vein thrombosis. Valvular competence appears intact within the proximal deep venous system on the right . The right great saphenous vein appears patent and compressible segmentally. The left common femoral vein is patent and compressible . Ordering Physician: Maddison Saini Referring Physician: Zoraida Marino Performed By: Kayla Adkins RVT 11/09/242117 Date _ Wayne Mendoza MD CC: JOHN Blackman; Dr. Zoraida Marino MD ~ Date Dictated: 11/09/24 1054 Date Transcribed: 11/09/242117 Technical Developer: Signed [facility] Other Internal Medicine Office Vis iton 10-23-2024 Internal Medicine Office Visit Normal [facility] Basic Metabolic Profile (BMP )on 10-17-2024 BUN Normal 4-19 [facility] Comment on above: Order Comment: 210 Result Comment: DONT DO LABS, PT GOING HOME TODAY PER NURSE AUDRA @[facility] Performed By: #### L 100.0500, L500.2500 ####[facility] [address] [place], [address] BUN/CRE Normal 10-20 [facility] Comment on above: Order Comment: 210 Result Comment: DONT DO LABS, PT GOING HOME TODAY PER NURSE AUDRA @ Performed By: #### L 100.0500, L500.2500 ####[facility] [address] [place], [address] Calcium Normal 7.6-11.0 [facility] Comment on above: Order Comment: 210 Result Comment: DONT DO LABS, PT GOING HOME TODAY PER NURSE AUDRA @ Performed By: #### L 100.0500, L500.2500 ####[facility] [address] [place], [address] CL Normal 98-108 [facility] Comment on above: Order Comment: 210 Result Comment: DONT DO LABS, PT GOING HOME TODAY PER NURSE AUDRA @ Performed By: #### L 100.0500, L500.2500 ####[facility] [address] [place], [address] CO2 Normal 21.0-32.0 [facility] Comment on above: Order Comment: 210 Result Comment: DONT DO LABS, PT GOING HOME TODAY PER NURSE AUDRA @ Performed By: #### L 100.0500, L500.2500 ####[facility] [address] [place], [address] CREAT,SERUM Normal 0.70-1.20 [facility] Comment on above: Order Comment: 210 Result Comment: DONT DO LABS, PT GOING HOME TODAY PER NURSE AUDRA @ Performed By: #### L 100.0500, L500.2500 ####[facility] [address] [place], [address] eGFR Normal >60 [facility] Comment on above: Order Comment: 210 Result Comment: DONT DO LABS, PT GOING HOME TODAY PER NURSE AUDRA @ Performed By: #### L 100.0500, L500.2500 ####[facility] [address] [place], [address] GAP Normal 5-15 [facility] Comment on above: Order Comment: 210 Result Comment: DONT DO LABS, PT GOING HOME TODAY PER NURSE AUDRA @ Performed By: #### L 100.0500, L500.2500 ####[facility] [address] [place], [address] GLU Normal 70-99 [facility] Comment on above: Order Comment: 210 Result Comment: DONT DO LABS, PT GOING HOME TODAY PER NURSE AUDRA @[facility] Performed By: #### L 100.0500, L500.2500 ####[facility] [address] [place], [address] Potassium Normal 3.3-5.1 [facility] Comment on above: Order Comment: 210 Result Comment: DONT DO LABS, PT GOING HOME TODAY PER NURSE AUDRA @ Performed By: #### L 100.0500, L500.2500 ####[facility] [address] [place], [address] Basic Metabolic Profile (BMP) Normal 133-145 [facility] Comment on above: Order Comment: 210 Result Comment: DONT DO LABS, PT GOING HOME TODAY PER NURSE AUDRA @[id number] Performed By: #### L 100.0500, L500.2500 ####[facility] [address] [place], [address] CBC-Complete Blood Cnt No Di ffon 10-17-2024 HCT Normal 40-54 [facility] Comment on above: Order Comment: 210 Result Comment: DONT DO LABS, PT GOING HOME TODAY PER NURSE AUDRA @[id number] Performed By: #### L 100.0500, L500.2500 ####[facility] [address] [place], [address] HGB Normal 13.0-16.5 [facility] Comment on above: Order Comment: 210 Result Comment: DONT DO LABS, PT GOING HOME TODAY PER NURSE AUDRA @ Performed By: #### L 100.0500, L500.2500 ####[facility] [facility] [address] [place], [address] MCH Normal 27.0-32.0 [facility] Comment on above: Order Comment: 210 Result Comment: DONT DO LABS, PT GOING HOME TODAY PER NURSE AUDRA @ Performed By: #### L 100.0500, L500.2500 ####[facility] [address] [place], [address] MCHC Normal 32-36 [facility] Comment on above: Order Comment: 210 Result Comment: DONT DO LABS, PT GOING HOME TODAY PER NURSE AUDRA @ Performed By: #### L 100.0500, L500.2500 ####[facility] [address] [place], [address] MCV Normal 80-94 [facility] Comment on above: Order Comment: 210 Result Comment: DONT DO LABS, PT GOING HOME TODAY PER NURSE AUDRA @ Performed By: #### L 100.0500, L500.2500 ####[facility] [address] [place], [address] PLT Normal 150-450 [facility] Comment on above: Order Comment: 210 Result Comment: DONT DO LABS, PT GOING HOME TODAY PER NURSE AUDRA @ Performed By: #### L 100.0500, L500.2500 ####[facility] [address] [place], [address] RBC Normal 4.6-6.2 [facility] Comment on above: Order Comment: 210 Result Comment: DONT DO LABS, PT GOING HOME TODAY PER NURSE AUDRA @ Performed By: #### L 100.0500, L500.2500 ####[facility] [address] [place], [address] RDW CV Normal 11.6-14.6 [facility] Comment on above: Order Comment: 210 Result Comment: DONT DO LABS, PT GOING HOME TODAY PER NURSE AUDRA @[facility] Performed By: #### L 100.0500, L500.2500 ####[facility] [address] [place], [address] RDW SD Normal 35.1-43.9 [facility] Comment on above: Order Comment: 210 Result Comment: DONT DO LABS, PT GOING HOME TODAY PER NURSE AUDRA @[facility] Performed By: #### L 100.0500, L500.2500 ####[facility] [address] [place], [address] WBC Normal 4.4-11.0 [facility] Comment on above: Order Comment: 210 Result Comment: DONT DO LABS, PT GOING HOME TODAY PER NURSE AUDRA @[facility] Performed By: #### L 100.0500, L500.2500 ####[facility] [address] [place], [address] Anion gap in Serum or Plasma Ordered By: Verna Hui on 10-10-2024 Anion gap [Moles/Vol] 12 mmol/L 5-15 [facility] BUN/creatinine ratioOrdered By: Verna Hui on 10-10-2024 Urea nitrogen/Creatinine [Mass ratio] 19.0 mg/mg - [facility] Basic Metabolic Profile (BMP )on 10-10-2024 BUN/CRE 19.0 RATIO Normal - [facility] Comment on above: Performed By: #### L 501.5200, L500.2500, L100.0500 ####[facility] [address] [place], [address] Calcium [Mass/Vol] 8.5 mg/dL Normal 7.6-11.0 [facility] Comment on above: Performed By: #### L 501.5200, L500.2500, L100.0500 ####[facility] [address] [place], [address] Chloride [Moles/Vol] 105 mmol/L Normal 98-108 [facility] Comment on above: Performed By: #### L 501.5200, L500.2500, L100.0500 ####[facility] [address] [place], [address] CO2 [Moles/Vol] 21.9 mmol/L Normal 21.0-32.0 [facility] Comment on above: Performed By: #### L 501.5200, L500.2500, L100.0500 ####[facility] [address] [place], [address] Creatinine [Mass/Vol] 0.64 mg/dL Low 0.70-1.20 [facility] Comment on above: Performed By: #### L 501.5200, L500.2500, L100.0500 ####[facility] [address] [place], [address] GAP 12 Normal 5-15 [facility] Comment on above: Performed By: #### L 501.5200, L500.2500, L100.0500 ####[facility] [address] [place], [address] GFR/1.73 sq M.predicted among non-blacks MDRD (S/P/Bld) [Vol rate/Area] 105 mL/min/{1.73_m2} Normal >60 [facility] Comment on above: Result Comment: mL/m in/1.73m2 CKD-EPI Creatinine Equation (2020) Performed By: #### L 501.5200, L500.2500, L100.0500 ####[facility] [address] [place], [address] Glucose [Mass/Vol] 162 mg/dL High 70-99 [facility] Comment on above: Performed By: #### L 501.5200, L500.2500, L100.0500 ####[facility] [address] [place], [address] Potassium [Moles/Vol] 3.9 mmol/L Normal 3.3-5.1 [facility] Comment on above: Performed By: #### L 501.5200, L500.2500, L100.0500 ####[facility] [address] [place], [address] Sodium [Moles/Vol] 139 mmol/L Normal 133-145 [facility] Comment on above: Performed By: #### L 501.5200, L500.2500, L100.0500 ####[facility] [address] [place], [address] Urea nitrogen [Mass/Vol] 12 mg/dL Normal 4-19 [facility] Comment on above: Performed By: #### L 501.5200, L500.2500, L100.0500 ####[facility] [address] [place], [address] CBC-Complete Blood Cnt No Di ffon 10-10-2024 Erythrocyte distribution width (RBC) [Ratio] 12.7 % Normal 11.6-14.6 [facility] Comment on above: Performed By: #### L 501.5200, L500.2500, L100.0500 ####[facility] [address] [place], [address] Hematocrit (Bld) [Volume fraction] 33.1 % Low 40-54 [facility] Comment on above: Performed By: #### L 501.5200, L500.2500, L100.0500 ####[facility] [address] [place], [address] Hemoglobin (Bld) [Mass/Vol] 11.2 g/dL Low 13.0-16.5 [facility] Comment on above: Performed By: #### L 501.5200, L500.2500, L100.0500 ####[facility] [address] [place], [address] MCH (RBC) [Entitic mass] 32.9 pg High 27.0-32.0 [facility] Comment on above: Performed By: #### L 501.5200, L500.2500, L100.0500 ####[facility] [address] [place], [address] MCHC (RBC) [Mass/Vol] 33.8 g/dL Normal 32-36 [facility] Comment on above: Performed By: #### L 501.5200, L500.2500, L100.0500 ####[facility] [address] [place], [address] MCV (RBC) [Entitic vol] 97.4 fL High 80-94 [facility] Comment on above: Performed By: #### L 501.5200, L500.2500, L100.0500 ####[facility] [address] [place], [address] Platelet mean volume (Bld) [Entitic vol] 9.7 fL Normal 6.2-12.0 [facility] Comment on above: Performed By: #### L 501.5200, L500.2500, L100.0500 ####[facility] [address] [place], [address] Platelets (Bld) [#/Vol] 338 10*3/uL Normal 150-450 [facility] Comment on above: Performed By: #### L 501.5200, L500.2500, L100.0500 ####[facility] [address] [place], [address] RBC (Bld) [#/Vol] 3.40 10*6/uL Low 4.6-6.2 [facility] Comment on above: Performed By: #### L 501.5200, L500.2500, L100.0500 ####[facility] [address] [place], [address] RDW SD 45.3 fl High 35.1-43.9 [facility] Comment on above: Performed By: #### L 501.5200, L500.2500, L100.0500 ####[facility] [address] [place], [address] WBC (Bld) [#/Vol] 6.3 10*3/uL Normal 4.4-11.0 [facility] Comment on above: Performed By: #### L 501.5200, L500.2500, L100.0500 ####[facility] [address] [place], [address] Carbon dioxide, total [Moles /volume] in Central venous bloodOrdered By: Verna Hui on 10-10-2024 CO2 [Moles/Vol] 21.9 mmol/L 21.0-32.0 [facility] Chloride assayOrdered By: Emigdio Hui on 10-10-2024 Chloride [Moles/Vol] 105 mmol/L 98-108 [facility] Erythrocyte distribution wid th (RBC) [Ratio]Ordered By: Verna Hui on 10-10-2024 Erythrocyte distribution width (RBC) [Entitic vol] 45.3 fL High 35.1-43.9 [facility] Erythrocyte distribution wid th ratioOrdered By: Verna Hui on 10-10-2024 Erythrocyte distribution width (RBC) [Ratio] 12.7 % 11.6-14.6 [facility] GFR/1.73 sq M.predicted ally g non-blacks MDRD (S/P/Bld) [Vol rate/Area]Ordered By: Verna Hui on 10-10-2024 Estimated GFR (MDRD) Non-Af Amer 105 >60 [facility] Comment on above: mL/min/1.73m2 CKD-EP I Creatinine Equation (2020) Hematocrit Auto (Bld) [Volum e fraction]Ordered By: Verna Hui on 10-10-2024 Hematocrit (Bld) [Volume fraction] 33.1 % Low 40-54 [facility] Hemoglobin measurementOrdere d By: Verna Hui on 10-10-2024 Hemoglobin (Bld) [Mass/Vol] 11.2 g/dL Low 13.0-16.5 [facility] MCV (mean corpuscular volume ) determinationOrdered By: Veran Hui on 10-10-2024 MCV (RBC) [Entitic vol] 97.4 fL High 80-94 [facility] Magnesiumon 10-10-2024 Magnesium [Mass/Vol] 2.1 mg/dL Normal 1.5-2.2 [facility] Comment on above: Performed By: #### L 501.5200, L500.2500, L100.0500 ####[facility] [address] [facility] [place], [address] Magnesium (Unsp spec) [Mass/ Vol]Ordered By: Verna Hui on 10-10-2024 Magnesium [Mass/Vol] 2.1 mg/dL 1.5-2.2 [facility] Mean corpuscular hemoglobin (MCH) determinationOrdered By: Verna Hui on 10-10-2024 MCH (RBC) [Entitic mass] 32.9 pg High 27.0-32.0 [facility] Mean corpuscular hemoglobin concentration (MCHC) determinationOrdered By: Verna Hui on 10-10-2024 MCHC (RBC) [Mass/Vol] 33.8 g/dL 32-36 [facility] Mean platelet volume determi nationOrdered By: Verna Hui on 10-10-2024 Platelet mean volume (Bld) [Entitic vol] 9.7 fL 6.2-12.0 [facility] Platelet countOrdered By: Emigdio Hui on 10-10-2024 Platelets (Bld) [#/Vol] 338 10*3/uL 150-450 [facility] Potassium (Unsp spec) [Mass/ Vol]Ordered By: Verna Hui on 10-10-2024 Potassium [Moles/Vol] 3.9 mmol/L 3.3-5.1 [facility] RBC Auto (Bld) [#/Vol]Ordere d By: Verna Hui on 10-10-2024 RBC (Bld) [#/Vol] 3.40 10*6/uL Low 4.6-6.2 [facility] Serum creatinine measurement (mass/volume)Ordered By: Verna Hui on 10-10-2024 Creatinine [Mass/Vol] 0.64 mg/dL Low 0.70-1.20 [facility] Serum glucose measurement (m ass/volume)Ordered By: Verna Hui on 10-10-2024 Glucose [Mass/Vol] 162 mg/dL High 70-99 [facility] Serum or plasma calcium jody urement (mass/volume)Ordered By: Verna Hui on 10-10-2024 Calcium [Mass/Vol] 8.5 mg/dL 7.6-11.0 [facility] Serum or plasma urea nitroge n measurement (mass/volume)Ordered By: Verna Hui on 10-10-2024 Urea nitrogen [Mass/Vol] 12 mg/dL 4-19 [facility] Sodium levelOrdered By: Leonard Hui on 10-10-2024 Sodium [Moles/Vol] 139 mmol/L 133-145 [facility] White blood cell (WBC) count Ordered By: Verna Hui on 10-10-2024 WBC (Bld) [#/Vol] 6.3 10*3/uL 4.4-11.0 [facility] Absolute neutrophil countOrd ered By: Verna Hui on 10-04-2024 Neutrophils (Bld) [#/Vol] 5.5 10*3/uL 2.0-7.7 [facility] Anion gap in Serum or Plasma Ordered By: Verna Hui on 10-04-2024 Anion gap [Moles/Vol] 12 mmol/L 5-15 [facility] BUN/creatinine ratioOrdered By: Verna Hui on 10-04-2024 Urea nitrogen/Creatinine [Mass ratio] 33.8 mg/mg High [address] [place] [address] Basic Metabolic Profile (BMP )on 10-04-2024 BUN/CRE 33.8 RATIO High [address] [place] [address] Comment on above: Order Comment: 210.1 Performed By: #### L 500.2500, L501.5200, L503.0106, L501.9520, L500.4100, L100.0100, L506.1001 ####[facility] [address] [place], [address] Calcium [Mass/Vol] 8.3 mg/dL Normal 7.6-11.0 [facility] Comment on above: Order Comment: 210.1 Performed By: #### L 500.2500, L501.5200, L503.0106, L501.9520, L500.4100, L100.0100, L506.1001 ####[facility] [address] [place], [address] Chloride [Moles/Vol] 103 mmol/L Normal 98-108 [facility] Comment on above: Order Comment: 210. Performed By: #### L 500.2500, L501.5200, L503.0106, L501.9520, L500.4100, L100.0100, L506.1001 ####[facility] [address] [place], [address] CO2 [Moles/Vol] 23.2 mmol/L Normal 21.0-32.0 [facility] Comment on above: Order Comment: 210.1 Performed By: #### L 500.2500, L501.5200, L503.0106, L501.9520, L500.4100, L100.0100, L506.1001 ####[facility] [address] [place], [address] Creatinine [Mass/Vol] 0.60 mg/dL Low 0.70-1.20 [facility] Comment on above: Order Comment: 210.1 Performed By: #### L 500.2500, L501.5200, L503.0106, L501.9520, L500.4100, L100.0100, L506.1001 ####[facility] [address] [place], [address] GAP 12 Normal 5-15 [facility] Comment on above: Order Comment: 210.1 Performed By: #### L 500.2500, L501.5200, L503.0106, L501.9520, L500.4100, L100.0100, L506.1001 ####[facility] [address] [place], [address] GFR/1.73 sq M.predicted among non-blacks MDRD (S/P/Bld) [Vol rate/Area] 107 mL/min/{1.73_m2} Normal >60 [facility] Comment on above: Order Comment: 210.1 Result Comment: mL/m in/1.73m2 CKD-EPI Creatinine Equation (2020) Performed By: #### L 500.2500, L501.5200, L503.0106, L501.9520, L500.4100, L100.0100, L506.1001 ####[facility] [address] [place], [address] Glucose [Mass/Vol] 120 mg/dL High 70-99 [facility] Comment on above: Order Comment: 210.1 Performed By: #### L 500.2500, L501.5200, L503.0106, L501.9520, L500.4100, L100.0100, L506.1001 ####[facility] [address] [place], [address] Potassium [Moles/Vol] 4.1 mmol/L Normal 3.3-5.1 [facility] Comment on above: Order Comment: 210.1 Performed By: #### L 500.2500, L501.5200, L503.0106, L501.9520, L500.4100, L100.0100, L506.1001 ####[facility] [address] [place], [address] Sodium [Moles/Vol] 138 mmol/L Normal 133-145 [facility] Comment on above: Order Comment: 210.1 Performed By: #### L 500.2500, L501.5200, L503.0106, L501.9520, L500.4100, L100.0100, L506.1001 ####[facility] [address] [place], [address] Urea nitrogen [Mass/Vol] 20 mg/dL High - [facility] Comment on above: Order Comment: 210.1 Performed By: #### L 500.2500, L501.5200, L503.0106, L501.9520, L500.4100, L100.0100, L506.1001 ####[facility] [address] [place], [address] BUN Normal - [facility] Comment on above: Result Comment: Canc elled via OM: Order cancelled - Patient discharged Performed By: #### L 100.0100, L500.2500 ####[facility] [address] [place], [address] BUN/CRE Normal - [facility] Comment on above: Result Comment: Canc elled via OM: Order cancelled - Patient discharged Performed By: #### L 100.0100, L500.2500 ####[facility] [address] [place], [address] Calcium Normal 7.6-11.0 [facility] Comment on above: Result Comment: Canc elled via OM: Order cancelled - Patient discharged Performed By: #### L 100.0100, L500.2500 ####[facility] [address] [place], [address] CL Normal 98-107 [facility] Comment on above: Result Comment: Canc elled via OM: Order cancelled - Patient discharged Performed By: #### L 100.0100, L500.2500 ####[facility] [address] [place], [address] CO2 Normal 21.0-32.0 [facility] Comment on above: Result Comment: Canc elled via OM: Order cancelled - Patient discharged Performed By: #### L 100.0100, L500.2500 ####[facility] [address] [place], [address] CREAT,SERUM Normal 0.8-1.3 [facility] Comment on above: Result Comment: Canc elled via OM: Order cancelled - Patient discharged Performed By: #### L 100.0100, L500.2500 ####[facility] [address] [place], [address] eGFR Normal >60 [facility] Comment on above: Result Comment: Canc elled via OM: Order cancelled - Patient discharged Performed By: #### L 100.0100, L500.2500 ####[facility] [address] [place], [address] GAP Normal 5-15 [facility] Comment on above: Result Comment: Canc elled via OM: Order cancelled - Patient discharged Performed By: #### L 100.0100, L500.2500 ####[facility] [address] [place], [address] GLU Normal 70-99 [facility] Comment on above: Result Comment: Canc elled via OM: Order cancelled - Patient discharged Performed By: #### L 100.0100, L500.2500 ####[facility] [address] [place], [address] Potassium Normal 3.5-5.1 [facility] Comment on above: Result Comment: Canc elled via OM: Order cancelled - Patient discharged Performed By: #### L 100.0100, L500.2500 ####[facility] [address] [place], [address] Basic Metabolic Profile (BMP) Normal 136-145 [facility] Comment on above: Result Comment: Canc elled via OM: Order cancelled - Patient discharged Performed By: #### L 100.0100, L500.2500 ####[facility] [address] [place], [place], [address] Basophil percentageOrdered B y: Verna Hui on 10-04-2024 Basophils/100 WBC (Bld) 0.2 % 0-1 [facility] CBC W/Diff, Automatedon Absolute Lymph 1.54 X10 3/uL Normal 0.83-4.51 [facility] Comment on above: Order Comment: 210.1 Performed By: #### L 500.2500, L501.5200, L503.0106, L501.9520, L500.4100, L100.0100, L506.1001 ####[facility] [address] [place], [address] Absolute Neut 5.5 X10 3/uL Normal 2.0-7.7 [facility] Comment on above: Order Comment: 210.1 Performed By: #### L 500.2500, L501.5200, L503.0106, L501.9520, L500.4100, L100.0100, L506.1001 ####[facility] [address] [place], [address] Basophils/100 WBC (Bld) 0.2 % Normal 0-1 [facility] Comment on above: Order Comment: 210.1 Performed By: #### L 500.2500, L501.5200, L503.0106, L501.9520, L500.4100, L100.0100, L506.1001 ####[facility] [address] [place], [address] Eosinophils/100 WBC (Bld) 2.3 % Normal 0-5 [facility] Comment on above: Order Comment: 210.1 Performed By: #### L 500.2500, L501.5200, L503.0106, L501.9520, L500.4100, L100.0100, L506.1001 ####[facility] [address] [place], [address] Erythrocyte distribution width (RBC) [Ratio] 12.8 % Normal 11.6-14.6 [facility] Comment on above: Order Comment: 210.1 Performed By: #### L 500.2500, L501.5200, L503.0106, L501.9520, L500.4100, L100.0100, L506.1001 ####[facility] [address] [place], [address] Hematocrit (Bld) [Volume fraction] 35.2 % Low 40-54 [facility] Comment on above: Order Comment: 210.1 Performed By: #### L 500.2500, L501.5200, L503.0106, L501.9520, L500.4100, L100.0100, L506.1001 ####[facility] [address] [place], [address] Hemoglobin (Bld) [Mass/Vol] 12.0 g/dL Low 13.0-16.5 [facility] Comment on above: Order Comment: 210.1 Performed By: #### L 500.2500, L501.5200, L503.0106, L501.9520, L500.4100, L100.0100, L506.1001 ####[facility] [address] [place], [address] IG% 0.600 Normal 0.0-0.9 [facility] Comment on above: Order Comment: 210.1 Result Comment: IG% - Immature Granulocytes (promyelocytes, myelocytes andmetamyelocytes) > 1% indicates that a LEFT SHIFT is Present. Performed By: #### L 500.2500, L501.5200, L503.0106, L501.9520, L500.4100, L100.0100, L506.1001 ####[facility] [address] [place], [address] Lymphocytes/100 WBC (Bld) 18.8 % Low 19-41 [facility] Comment on above: Order Comment: 210.1 Performed By: #### L 500.2500, L501.5200, L503.0106, L501.9520, L500.4100, L100.0100, L506.1001 ####[facility] [address] [place], [address] MCH (RBC) [Entitic mass] 32.9 pg High 27.0-32.0 [facility] Comment on above: Order Comment: 210.1 Performed By: #### L 500.2500, L501.5200, L503.0106, L501.9520, L500.4100, L100.0100, L506.1001 ####[facility] [address] [place], [address] MCHC (RBC) [Mass/Vol] 34.1 g/dL Normal 32-36 [facility] Comment on above: Order Comment: 210.1 Performed By: #### L 500.2500, L501.5200, L503.0106, L501.9520, L500.4100, L100.0100, L506.1001 ####[facility] [address] [place], [address] MCV (RBC) [Entitic vol] 96.4 fL High 80-94 [facility] Comment on above: Order Comment: 210.1 Performed By: #### L 500.2500, L501.5200, L503.0106, L501.9520, L500.4100, L100.0100, L506.1001 ####[facility] [address] [place], [address] Monocytes/100 WBC (Bld) 11.1 % High 0-10 [facility] Comment on above: Order Comment: 210.1 Performed By: #### L 500.2500, L501.5200, L503.0106, L501.9520, L500.4100, L100.0100, L506.1001 ####[facility] [address] [place], [address] Neutrophils/100 WBC (Bld) 67.0 % Normal 47-70 [facility] Comment on above: Order Comment: .1 Performed By: #### L 500.2500, L501.5200, L503.0106, L501.9520, L500.4100, L100.0100, L506.1001 ####[facility] [address] [place], [address] Nucleated RBC (Bld) [#/Vol] 0 10*3/uL Normal 0-5 [facility] Comment on above: Order Comment: 210.1 Performed By: #### L 500.2500, L501.5200, L503.0106, L501.9520, L500.4100, L100.0100, L506.1001 ####[facility] [address] [place], [address] Platelet mean volume (Bld) [Entitic vol] 10.5 fL Normal 6.2-12.0 [facility] Comment on above: Order Comment: 210.1 Performed By: #### L 500.2500, L501.5200, L503.0106, L501.9520, L500.4100, L100.0100, L506.1001 ####[facility] [address] [place], [address] Platelets (Bld) [#/Vol] 244 10*3/uL Normal 150-450 [facility] Comment on above: Order Comment: 210.1 Performed By: #### L 500.2500, L501.5200, L503.0106, L501.9520, L500.4100, L100.0100, L506.1001 ####[facility] [address] [place], [address] RBC (Bld) [#/Vol] 3.65 10*6/uL Low 4.6-6.2 [facility] Comment on above: Order Comment: 210.1 Performed By: #### L 500.2500, L501.5200, L503.0106, L501.9520, L500.4100, L100.0100, L506.1001 ####[facility] [address] [place], [address] RDW SD 45.7 fl High 35.1-43.9 [facility] Comment on above: Order Comment: 210.1 Performed By: #### L 500.2500, L501.5200, L503.0106, L501.9520, L500.4100, L100.0100, L506.1001 ####[facility] [address] [place], [address] WBC (Bld) [#/Vol] 8.2 10*3/uL Normal 4.4-11.0 [facility] Comment on above: Order Comment: 210.1 Performed By: #### L 500.2500, L501.5200, L503.0106, L501.9520, L500.4100, L100.0100, L506.1001 ####[facility] [address] [place], [address] Absolute Neut Normal 2.0-7.7 [facility] Comment on above: Result Comment: Canc elled via OM: Order cancelled - Patient discharged Performed By: #### L 100.0100, L500.2500 ####[facility] [address] [place], [address] HCT Normal 40-54 [facility] Comment on above: Result Comment: Canc elled via OM: Order cancelled - Patient discharged Performed By: #### L 100.0100, L500.2500 ####[facility] [address] [place], [address] HGB Normal 13.0-16.5 [facility] Comment on above: Result Comment: Canc elled via OM: Order cancelled - Patient discharged Performed By: #### L 100.0100, L500.2500 ####[facility] [address] [place], [address] MCH Normal 27.0-32.0 [facility] Comment on above: Result Comment: Canc elled via OM: Order cancelled - Patient discharged Performed By: #### L 100.0100, L500.2500 ####[facility] [address] [place], [address] MCHC Normal 32-36 [facility] Comment on above: Result Comment: Canc elled via OM: Order cancelled - Patient discharged Performed By: #### L 100.0100, L500.2500 ####[facility] [address] [place], [address] MCV Normal 80-94 [facility] Comment on above: Result Comment: Canc elled via OM: Order cancelled - Patient discharged Performed By: #### L 100.0100, L500.2500 ####[facility] [address] [place], [address] NEUT% Normal 47-70 [facility] Comment on above: Result Comment: Canc elled via OM: Order cancelled - Patient discharged Performed By: #### L 100.0100, L500.2500 ####[facility] [address] [place], [address] PLT Normal 150-450 [facility] Comment on above: Result Comment: Canc elled via OM: Order cancelled - Patient discharged Performed By: #### L 100.0100, L500.2500 ####[facility] [address] [place], [address] RBC Normal 4.6-6.2 [facility] Comment on above: Result Comment: Canc elled via OM: Order cancelled - Patient discharged Performed By: #### L 100.0100, L500.2500 ####[facility] [address] [place], [address] RDW CV Normal 11.6-14.6 [facility] Comment on above: Result Comment: Canc elled via OM: Order cancelled - Patient discharged Performed By: #### L 100.0100, L500.2500 ####[facility] [address] [place], [address] RDW SD Normal 35.1-43.9 [facility] Comment on above: Result Comment: Canc elled via OM: Order cancelled - Patient discharged Performed By: #### L 100.0100, L500.2500 ####[facility] [address] [place], [address] WBC Normal 4.4-11.0 [facility] Comment on above: Result Comment: Canc elled via OM: Order cancelled - Patient discharged Performed By: #### L 100.0100, L500.2500 ####[facility] [address] [place], [address] Calculated very low density lipoprotein (VLDL) cholesterol measurementOrdered By: Verna Hui on 10-04-2024 VLDL Cholesterol 15 mg/dL 5-40 [facility] Carbon dioxide, total [Moles /volume] in Central venous bloodOrdered By: Verna Hui on 10-04-2024 CO2 [Moles/Vol] 23.2 mmol/L 21.0-32.0 [facility] Chloride assayOrdered By: Emigdio Hui on 10-04-2024 Chloride [Moles/Vol] 103 mmol/L 98-108 [facility] Eosinophil percentageOrdered By: Verna Hui on 10-04-2024 Eosinophils/100 WBC (Bld) 2.3 % 0-5 [facility] Erythrocyte distribution wid th (RBC) [Ratio]Ordered By: Verna Hui on 10-04-2024 Erythrocyte distribution width (RBC) [Entitic vol] 45.7 fL High 35.1-43.9 [facility] Erythrocyte distribution wid th ratioOrdered By: Verna Hui on 10-04-2024 Erythrocyte distribution width (RBC) [Ratio] 12.8 % 11.6-14.6 [facility] GFR/1.73 sq M.predicted ally g non-blacks MDRD (S/P/Bld) [Vol rate/Area]Ordered By: Verna Hui on 10-04-2024 Estimated GFR (MDRD) Non-Af Amer 107 >60 [facility] Comment on above: mL/min/1.73m2 CKD-EP I Creatinine Equation (2020) Hematocrit Auto (Bld) [Volum e fraction]Ordered By: Verna Hui on 10-04-2024 Hematocrit (Bld) [Volume fraction] 35.2 % Low 40-54 [facility] Hemoglobin measurementOrdere d By: Verna Hui on 10-04-2024 Hemoglobin (Bld) [Mass/Vol] 12.0 g/dL Low 13.0-16.5 [facility] Immature granulocytes/100 WB C Auto (Bld)Ordered By: Verna Hui on 10-04-2024 Immature granulocytes/100 WBC (Bld) 0.600 % 0.0-0.9 [facility] Comment on above: IG% - Immature Granu locytes (promyelocytes, myelocytes and metamyelocytes) > 1% indicates that a LEFT SHIFT is Present. L503.0106on 10-04-2024 Cobalamin (Vitamin B12) [Mass/Vol] 298 pg/mL Normal 180-914 [facility] Comment on above: Order Comment: 210.1 Performed By: #### L 500.2500, L501.5200, L503.0106, L501.9520, L500.4100, L100.0100, L506.1001 ####[facility] [address] [place], [address] L506.1001on 10-04-2024 Vitamin D 25-OH 14.6 ng/mL Low 30-100 [facility] Comment on above: Order Comment: 210.1 Result Comment: Cecy min D StatusDeficiency: <20 ng/mL (50nmol/L)Insufficiency: 20-30 ng/mL (50-75 nmol/L)Sufficiency: 30-100 ng/mL (75-250 nmol/L)Toxicity: >100 ng/mL (>250 nmol/L) Performed By: #### L 500.2500, L501.5200, L503.0106, L501.9520, L500.4100, L100.0100, L506.1001 ####[facility] [address] [place], [address] LDL calc ser/plasOrdered By: Verna Hui on 10-04-2024 LDL Cholesterol, Calculated 75 mg/dL [facility] Comment on above: Ltxoswpfxh=261-955 m g/dL & Higher Qfwu=464 mg/dL or greater Lipid Profileon 10-04-2024 CHOL:HDL 3.05 Normal [facility] Comment on above: Order Comment: 210.1 Performed By: #### L 500.2500, L501.5200, L503.0106, L501.9520, L500.4100, L100.0100, L506.1001 ####[facility] [address] [place], [address] Cholesterol [Mass/Vol] 134 mg/dL Normal <=200 [facility] Comment on above: Order Comment: 210.1 Result Comment: Chol esterol level, Desirable <200 mg/dLBorderline high cholesterol 200-239 mg/dLHigh cholesterol >=240 mg/dLRecommendations of the NCEP Adult Treatment Panel for thefollowing risk-cutoff thresholds for the [place] American[place]. Performed By: #### L 500.2500, L501.5200, L503.0106, L501.9520, L500.4100, L100.0100, L506.1001 ####[facility] [address] [place], [address] Cholesterol in HDL [Mass/Vol] 44 mg/dL Normal [facility] Comment on above: Order Comment: 210.1 Result Comment: Trang onal Cholesterol Education Program (NCEP) guidelines:<40 mg/dL: Low HDL-cholesterol (major risk factor for CHD)>= 60 mg/dL: High HDL-cholesterol (negative risk factor forCHD)HDL-cholesterol is affected by a number of factors, e.g.smoking, exercise, hormones, sex and age. Performed By: #### L 500.2500, L501.5200, L503.0106, L501.9520, L500.4100, L100.0100, L506.1001 ####[facility] [address] [place], [address] Cholesterol in LDL [Mass/Vol] 75 mg/dL Normal [facility] Comment on above: Order Comment: 210.1 Result Comment: Bord syatop=451-746 mg/dL Higher Fyzz=854 mg/dL or greater Performed By: #### L 500.2500, L501.5200, L503.0106, L501.9520, L500.4100, L100.0100, L506.1001 ####[facility] [address] [place], [address] Cholesterol in VLDL [Mass/Vol] 15 mg/dL Normal 5-40 [facility] Comment on above: Order Comment: 210.1 Performed By: #### L 500.2500, L501.5200, L503.0106, L501.9520, L500.4100, L100.0100, L506.1001 ####[facility] [address] [place], [address] Triglyceride [Mass/Vol] 76 mg/dL Normal [facility] Comment on above: Order Comment: 210.1 Result Comment: The drugs N-Acetylcysteine and Metamizole may falselydepress this assay.Normal range: <150 mg/dLBorderline High: 150-199 mg/dLHigh: 200-499 mg/dLVery High: >500 mg/dL Performed By: #### L 500.2500, L501.5200, L503.0106, L501.9520, L500.4100, L100.0100, L506.1001 ####[facility] [address] [place], [address] Lymphocytes Auto (Unsp spec) [#/Vol]Ordered By: Verna Hui on 10-04-2024 Lymphocytes (Bld) [#/Vol] 1.54 10*3/uL 0.83-4.51 [facility] Lymphocytes/100 WBC Auto (Un sp spec)Ordered By: Verna Hui on 10-04-2024 Lymphocytes/100 WBC (Bld) 18.8 % Low 19-41 [facility] MCV (mean corpuscular volume ) determinationOrdered By: Verna Hui on 10-04-2024 MCV (RBC) [Entitic vol] 96.4 fL High 80-94 [facility] Magnesiumon 10-04-2024 Magnesium [Mass/Vol] 2.1 mg/dL Normal 1.5-2.2 [facility] Comment on above: Order Comment: 210.1 Performed By: #### L 500.2500, L501.5200, L503.0106, L501.9520, L500.4100, L100.0100, L506.1001 ####[facility] [address] [place], [address] Magnesium (Unsp spec) [Mass/ Vol]Ordered By: Verna Hui on 10-04-2024 Magnesium [Mass/Vol] 2.1 mg/dL 1.5-2.2 [facility] Mean corpuscular hemoglobin (MCH) determinationOrdered By: Verna Hui on 10-04-2024 MCH (RBC) [Entitic mass] 32.9 pg High 27.0-32.0 [facility] Mean corpuscular hemoglobin concentration (MCHC) determinationOrdered By: Verna Hui on 10-04-2024 MCHC (RBC) [Mass/Vol] 34.1 g/dL 32-36 [facility] Mean platelet volume determi nationOrdered By: Verna Hui on 10-04-2024 Platelet mean volume (Bld) [Entitic vol] 10.5 fL 6.2-12.0 [facility] Monocyte percentageOrdered B y: Verna Hui on 10-04-2024 Monocytes/100 WBC (Bld) 11.1 % High 0-10 [facility] Neutrophil percentageOrdered By: Verna Hui on 10-04-2024 Neutrophils/100 WBC (Bld) 67.0 % 47-70 [facility] Nucleated red blood cell per centageOrdered By: Verna Hui on 10-04-2024 Nucleated RBC/100 WBC (Bld) [Ratio] 0 % 0-5 [facility] Platelet countOrdered By: Emigdio Hui on 10-04-2024 Platelets (Bld) [#/Vol] 244 10*3/uL 150-450 [facility] Potassium (Unsp spec) [Mass/ Vol]Ordered By: Verna Hui on 10-04-2024 Potassium [Moles/Vol] 4.1 mmol/L 3.3-5.1 [facility] RBC Auto (Bld) [#/Vol]Ordere d By: Verna Hui on 10-04-2024 RBC (Bld) [#/Vol] 3.65 10*6/uL Low 4.6-6.2 [facility] Screening total cholesterol/ high density lipoprotein (HDL) cholesterol ratioOrdered By: Verna Hui on 10-04-2024 Cholesterol.total/Choles terol in HDL [Mass ratio] 3.05 {ratio} [facility] Serum creatinine measurement (mass/volume)Ordered By: Verna Hui on 10-04-2024 Creatinine [Mass/Vol] 0.60 mg/dL Low 0.70-1.20 [facility] Serum glucose measurement (m ass/volume)Ordered By: Verna Hui on 10-04-2024 Glucose [Mass/Vol] 120 mg/dL High 70-99 [facility] Serum or plasma calcium jody urement (mass/volume)Ordered By: Verna Hui on 10-04-2024 Calcium [Mass/Vol] 8.3 mg/dL 7.6-11.0 [facility] Serum or plasma cholesterol in HDL measurement (mass/volume)Ordered By: Verna Hui on 10-04-2024 Cholesterol in HDL [Mass/Vol] 44 mg/dL >40 [facility] Comment on above: National Cholesterol Education Program (NCEP) guidelines:<40 mg/dL: Low HDL-cholesterol (major risk factor for CHD)>= 60 mg/dL: High HDL-cholesterol (negative risk factor for CHD)HDL-cholesterol is affected by a number of factors, e.g. smoking, exercise, hormones, sex and age. Serum or plasma cholesterol measurement (mass/volume)Ordered By: Verna Hui on 10-04-2024 Cholesterol [Mass/Vol] 134 mg/dL <201 [facility] Comment on above: Cholesterol level, D esirable <200 mg/dLBorderline high cholesterol 200-239 mg/dLHigh cholesterol >=240 mg/dLRecommendations of the NCEP Adult Treatment Panel for the following risk-cutoff thresholds for the [place] population. Serum or plasma urea nitroge n measurement (mass/volume)Ordered By: Verna Hui on 10-04-2024 Urea nitrogen [Mass/Vol] 20 mg/dL High 4-19 [facility] Sodium levelOrdered By: Leonard Hui on 10-04-2024 Sodium [Moles/Vol] 138 mmol/L 133-145 [facility] TSH DL <= 0.005 mIU/L QnOrde red By: Verna Hui on 10-04-2024 Thyroid Stimulating Hormone (TSH) 1.900 uIU/mL 0.300-4.200 [facility] Thyroid Stim Hormone (TSH)on 10-04-2024 TSH 1.900 uIU/mL Normal 0.300-4.200 [facility] Comment on above: Order Comment: 210.1 Performed By: #### L 500.2500, L501.5200, L503.0106, L501.9520, L500.4100, L100.0100, L506.1001 ####[facility] [address] [place], [address] Triglycerides measurementOrd ered By: Verna Hui on 10-04-2024 Triglyceride [Mass/Vol] 76 mg/dL <199 [facility] Comment on above: The drugs N-Acetylcy steine and Metamizole may falsely depress this assay. Normal range: <150 mg/dLBorderline High: 150-199 mg/dLHigh: 200-499 mg/dLVery High: >500 mg/dL Vitamin B12 ser/plasOrdered By: Verna Hui on 10-04-2024 Cobalamin (Vitamin B12) [Mass/Vol] 298 pg/mL 180-914 [facility] Vitamin D, 25-hydroxyOrdered By: Verna Hui on 10-04-2024 Vitamin D 25-Hydroxy 14.6 ng/mL Low 30-100 [facility] Comment on above: Vitamin D StatusDefi ciency: <20 ng/mL (50nmol/L)Insufficiency: 20-30 ng/mL (50-75 nmol/L)Sufficiency: 30-100 ng/mL (75-250 nmol/L)Toxicity: >100 ng/mL (>250 nmol/L) White blood cell (WBC) count Ordered By: Verna Hui on 10-04-2024 WBC (Bld) [#/Vol] 8.2 10*3/uL 4.4-11.0 [facility] Basic Metabolic Profile (BMP )on 10-03-2024 BUN Normal 4-19 [facility] Comment on above: Result Comment: Canc elled via OM: Order cancelled - Patient discharged Performed By: #### L 500.2500, L100.0100 ####[facility] [address] [place], [address] Order Comment: 210.1 Result Comment: UTO X2 Performed By: #### L 500.4100, L500.2500, L100.0100 ####[facility] [address] [place], [address] BUN/CRE Normal 10-20 [facility] Comment on above: Result Comment: Canc elled via OM: Order cancelled - Patient discharged Performed By: #### L 500.2500, L100.0100 ####[facility] [address] [place], [address] Order Comment: 210.1 Result Comment: UTO X2 Performed By: #### L 500.4100, L500.2500, L100.0100 ####[facility] [address] [place], [address] Calcium Normal 7.6-11.0 [facility] Comment on above: Result Comment: Canc elled via OM: Order cancelled - Patient discharged Performed By: #### L 500.2500, L100.0100 ####[facility] [address] [place], [address] Order Comment: 210.1 Result Comment: UTO X2 Performed By: #### L 500.4100, L500.2500, L100.0100 ####[facility] [address] [place], [address] CL Normal 98-107 [facility] Comment on above: Result Comment: Canc elled via OM: Order cancelled - Patient discharged Performed By: #### L 500.2500, L100.0100 ####[facility] [address] [place], [address] CO2 Normal 22.0-29.0 [facility] Comment on above: Result Comment: Canc elled via OM: Order cancelled - Patient discharged Performed By: #### L 500.2500, L100.0100 ####[facility] [address] [place], [address] Order Comment: 210.1 Result Comment: UTO X2 Performed By: #### L 500.4100, L500.2500, L100.0100 ####[facility] [address] [place], [address] CREAT,SERUM Normal 0.70-1.20 [facility] Comment on above: Result Comment: Canc elled via OM: Order cancelled - Patient discharged Performed By: #### L 500.2500, L100.0100 ####[facility] [address] [place], [address] Order Comment: 210.1 Result Comment: UTO X2 Performed By: #### L 500.4100, L500.2500, L100.0100 ####[facility] [address] [place], [address] eGFR Normal >60 [facility] Comment on above: Result Comment: Canc elled via OM: Order cancelled - Patient discharged Performed By: #### L 500.2500, L100.0100 ####[facility] [address] [place], [address] Order Comment: 210.1 Result Comment: UTO X2 Performed By: #### L 500.4100, L500.2500, L100.0100 ####[facility] [address] [place], [address] GAP Normal 5-15 [facility] Comment on above: Result Comment: Canc elled via OM: Order cancelled - Patient discharged Performed By: #### L 500.2500, L100.0100 ####[facility] [address] [place], [address] GLU Normal 70-99 [facility] Comment on above: Result Comment: Canc elled via OM: Order cancelled - Patient discharged Performed By: #### L 500.2500, L100.0100 ####[facility] [address] [place], [address] Order Comment: 210.1 Result Comment: UTO X2 Performed By: #### L 500.4100, L500.2500, L100.0100 ####[facility] [address] [place], [address] Potassium Normal 3.3-5.1 [facility] Comment on above: Result Comment: Canc elled via OM: Order cancelled - Patient discharged Performed By: #### L 500.2500, L100.0100 ####[facility] [address] [place], [address] Order Comment: 210.1 Result Comment: UTO X2 Performed By: #### L 500.4100, L500.2500, L100.0100 ####[facility] [address] [place], [address] Basic Metabolic Profile (BMP) Normal 136-145 [facility] Comment on above: Result Comment: Canc elled via OM: Order cancelled - Patient discharged Performed By: #### L 500.2500, L100.0100 ####[facility] [address] [place], [address] Anion Gap Normal 5-15 [facility] Comment on above: Order Comment: 210.1 Result Comment: UTO X2 Performed By: #### L 500.4100, L500.2500, L100.0100 ####[facility] [address] [place], [address] Chloride Normal 96-108 [facility] Comment on above: Order Comment: 210.1 Result Comment: UTO X2 Performed By: #### L 500.4100, L500.2500, L100.0100 ####[facility] [address] [place], [address] Sodium Normal 133-145 [facility] Comment on above: Order Comment: 210.1 Result Comment: UTO X2 Performed By: #### L 500.4100, L500.2500, L100.0100 ####[facility] [address] [place], [address] CBC W/Diff, Automatedon 03-0 Absolute Neut Normal 2.0-7.7 [facility] Comment on above: Result Comment: Canc elled via OM: Order cancelled - Patient discharged Performed By: #### L 500.2500, L100.0100 ####[facility] [address] [place], [address] Order Comment: 210.1 Result Comment: UTO X2 Performed By: #### L 500.4100, L500.2500, L100.0100 ####[facility] [address] [place], [address] HCT Normal 40-54 [facility] Comment on above: Result Comment: Canc elled via OM: Order cancelled - Patient discharged Performed By: #### L 500.2500, L100.0100 ####[facility] [address] [place], [address] Order Comment: 210.1 Result Comment: UTO X2 Performed By: #### L 500.4100, L500.2500, L100.0100 ####[facility] [address] [place], [address] HGB Normal 13.0-16.5 [facility] Comment on above: Result Comment: Canc elled via OM: Order cancelled - Patient discharged Performed By: #### L 500.2500, L100.0100 ####[facility] [address] [place], [address] Order Comment: 210.1 Result Comment: UTO X2 Performed By: #### L 500.4100, L500.2500, L100.0100 ####[facility] [address] [place], [address] MCH Normal 27.0-32.0 [facility] Comment on above: Result Comment: Canc elled via OM: Order cancelled - Patient discharged Performed By: #### L 500.2500, L100.0100 ####[facility] [address] [place], [address] Order Comment: 210.1 Result Comment: UTO X2 Performed By: #### L 500.4100, L500.2500, L100.0100 ####[facility] [address] [place], [address] MCHC Normal 32-36 [facility] Comment on above: Result Comment: Canc elled via OM: Order cancelled - Patient discharged Performed By: #### L 500.2500, L100.0100 ####[facility] [address] [place], [address] Order Comment: 210.1 Result Comment: UTO X2 Performed By: #### L 500.4100, L500.2500, L100.0100 ####[facility] [address] [place], [address] MCV Normal 80-94 [facility] Comment on above: Result Comment: Canc elled via OM: Order cancelled - Patient discharged Performed By: #### L 500.2500, L100.0100 ####[facility] [address] [place], [address] Order Comment: 210.1 Result Comment: UTO X2 Performed By: #### L 500.4100, L500.2500, L100.0100 ####[facility] [address] [place], [address] NEUT% Normal 47-70 [facility] Comment on above: Result Comment: Canc elled via OM: Order cancelled - Patient discharged Performed By: #### L 500.2500, L100.0100 ####[facility] [address] [place], [address] Order Comment: 210.1 Result Comment: UTO X2 Performed By: #### L 500.4100, L500.2500, L100.0100 ####[facility] [address] [place], [address] PLT Normal 150-450 [facility] Comment on above: Result Comment: Canc elled via OM: Order cancelled - Patient discharged Performed By: #### L 500.2500, L100.0100 ####[facility] [address] [place], [address] Order Comment: 210.1 Result Comment: UTO X2 Performed By: #### L 500.4100, L500.2500, L100.0100 ####[facility] [address] [place], [address] RBC Normal 4.6-6.2 [facility] Comment on above: Result Comment: Canc elled via OM: Order cancelled - Patient discharged Performed By: #### L 500.2500, L100.0100 ####[facility] [address] [place], [address] Order Comment: 210.1 Result Comment: UTO X2 Performed By: #### L 500.4100, L500.2500, L100.0100 ####[facility] [address] [place], [address] RDW CV Normal 11.6-14.6 [facility] Comment on above: Result Comment: Canc elled via OM: Order cancelled - Patient discharged Performed By: #### L 500.2500, L100.0100 ####[facility] [address] [place], [address] Order Comment: 210.1 Result Comment: UTO X2 Performed By: #### L 500.4100, L500.2500, L100.0100 ####[facility] [address] [place], [address] RDW SD Normal 35.1-43.9 [facility] Comment on above: Result Comment: Canc elled via OM: Order cancelled - Patient discharged Performed By: #### L 500.2500, L100.0100 ####[facility] [address] [place], [address] Order Comment: 210.1 Result Comment: UTO X2 Performed By: #### L 500.4100, L500.2500, L100.0100 ####[facility] [address] [place], [address] WBC Normal 4.4-11.0 [facility] Comment on above: Result Comment: Canc elled via OM: Order cancelled - Patient discharged Performed By: #### L 500.2500, L100.0100 ####[facility] [address] [place], [address] Order Comment: 210.1 Result Comment: UTO X2 Performed By: #### L 500.4100, L500.2500, L100.0100 ####[facility] [address] [place], [address] Lipid Profileon 10-03-2024 CHOL Normal <=200 [facility] Comment on above: Order Comment: 210.1 Result Comment: UTO X2 Performed By: #### L 500.4100, L500.2500, L100.0100 ####[facility] [address] [place], [address] CHOL:HDL Normal [facility] Comment on above: Order Comment: 210.1 Result Comment: UTO X2 Performed By: #### L 500.4100, L500.2500, L100.0100 ####[facility] [address] [place], [address] CLDL Normal [facility] Comment on above: Order Comment: 210.1 Result Comment: UTO X2 Performed By: #### L 500.4100, L500.2500, L100.0100 ####[facility] [address] [place], [address] HDL Normal [facility] Comment on above: Order Comment: 210.1 Result Comment: UTO X2 Performed By: #### L 500.4100, L500.2500, L100.0100 ####[facility] [address] [place], [address] TRIG Normal [facility] Comment on above: Order Comment: 210.1 Result Comment: UTO X2 Performed By: #### L 500.4100, L500.2500, L100.0100 ####[facility] [address] [place], [address] VLDL Normal 5-40 [facility] Comment on above: Order Comment: 210.1 Result Comment: UTO X2 Performed By: #### L 500.4100, L500.2500, L100.0100 ####[facility] [address] [place], [address] Basic Metabolic Profile (BMP )on 10-02-2024 BUN Normal 4-19 [facility] Comment on above: Result Comment: Canc elled via OM: Order cancelled - Patient discharged Performed By: #### L 100.0100, L500.2500 ####[facility] [address] [place], [address] BUN/CRE Normal 10-20 [facility] Comment on above: Result Comment: Canc elled via OM: Order cancelled - Patient discharged Performed By: #### L 100.0100, L500.2500 ####[facility] [address] [place], [address] Calcium Normal 7.6-11.0 [facility] Comment on above: Result Comment: Canc elled via OM: Order cancelled - Patient discharged Performed By: #### L 100.0100, L500.2500 ####[facility] [address] [place], [address] CL Normal 98-107 [facility] Comment on above: Result Comment: Canc elled via OM: Order cancelled - Patient discharged Performed By: #### L 100.0100, L500.2500 ####[facility] [address] [place], [address] CO2 Normal 21.0-32.0 [facility] Comment on above: Result Comment: Canc elled via OM: Order cancelled - Patient discharged Performed By: #### L 100.0100, L500.2500 ####[facility] [address] [place], [address] CREAT,SERUM Normal 0.8-1.3 [facility] Comment on above: Result Comment: Canc elled via OM: Order cancelled - Patient discharged Performed By: #### L 100.0100, L500.2500 ####[facility] [address] [place], [address] eGFR Normal >60 [facility] Comment on above: Result Comment: Canc elled via OM: Order cancelled - Patient discharged Performed By: #### L 100.0100, L500.2500 ####[facility] [address] [place], [address] GAP Normal 5-15 [facility] Comment on above: Result Comment: Canc elled via OM: Order cancelled - Patient discharged Performed By: #### L 100.0100, L500.2500 ####[facility] [address] [place], [address] GLU Normal 70-99 [facility] Comment on above: Result Comment: Canc elled via OM: Order cancelled - Patient discharged Performed By: #### L 100.0100, L500.2500 ####[facility] [address] [place], [address] Potassium Normal 3.5-5.1 [facility] Comment on above: Result Comment: Canc elled via OM: Order cancelled - Patient discharged Performed By: #### L 100.0100, L500.2500 ####[facility] [address] [place], [address] Basic Metabolic Profile (BMP) Normal 136-145 [facility] Comment on above: Result Comment: Canc elled via OM: Order cancelled - Patient discharged Performed By: #### L 100.0100, L500.2500 ####[facility] [address] [place], [address] CBC W/Diff, Automatedon 03-0 Absolute Neut Normal 2.0-7.7 [facility] Comment on above: Result Comment: Canc elled via OM: Order cancelled - Patient discharged Performed By: #### L 100.0100, L500.2500 ####[facility] [address] [place], [address] HCT Normal 40-54 [facility] Comment on above: Result Comment: Canc elled via OM: Order cancelled - Patient discharged Performed By: #### L 100.0100, L500.2500 ####[facility] [address] [place], [address] HGB Normal 13.0-16.5 [facility] Comment on above: Result Comment: Canc elled via OM: Order cancelled - Patient discharged Performed By: #### L 100.0100, L500.2500 ####[facility] [address] [place], [address] MCH Normal 27.0-32.0 [facility] Comment on above: Result Comment: Canc elled via OM: Order cancelled - Patient discharged Performed By: #### L 100.0100, L500.2500 ####[facility] [address] [place], [address] MCHC Normal 32-36 [facility] Comment on above: Result Comment: Canc elled via OM: Order cancelled - Patient discharged Performed By: #### L 100.0100, L500.2500 ####[facility] [address] [place], [address] MCV Normal 80-94 [facility] Comment on above: Result Comment: Canc elled via OM: Order cancelled - Patient discharged Performed By: #### L 100.0100, L500.2500 ####[facility] [address] [place], [address] NEUT% Normal 47-70 [facility] Comment on above: Result Comment: Canc elled via OM: Order cancelled - Patient discharged Performed By: #### L 100.0100, L500.2500 ####[facility] [address] [place], [address] PLT Normal 150-450 [facility] Comment on above: Result Comment: Canc elled via OM: Order cancelled - Patient discharged Performed By: #### L 100.0100, L500.2500 ####[facility] [address] [place], [address] RBC Normal 4.6-6.2 [facility] Comment on above: Result Comment: Canc elled via OM: Order cancelled - Patient discharged Performed By: #### L 100.0100, L500.2500 ####[facility] [address] [place], [address] RDW CV Normal 11.6-14.6 [facility] Comment on above: Result Comment: Canc elled via OM: Order cancelled - Patient discharged Performed By: #### L 100.0100, L500.2500 ####[facility] [address] [place], [address] RDW SD Normal 35.1-43.9 [facility] Comment on above: Result Comment: Canc elled via OM: Order cancelled - Patient discharged Performed By: #### L 100.0100, L500.2500 ####[facility] [address] [place], [address] WBC Normal 4.4-11.0 [facility] Comment on above: Result Comment: Canc elled via OM: Order cancelled - Patient discharged Performed By: #### L 100.0100, L500.2500 ####[facility] [address] [place], [address] Basic Metabolic Profile (BMP )on 10-01-2024 BUN Normal 4-19 [facility] Comment on above: Result Comment: Canc elled via OM: Order cancelled - Patient discharged Performed By: #### L 100.0100, L500.2500 ####[facility] [address] [place], [address] BUN/CRE Normal 10-20 [facility] Comment on above: Result Comment: Canc elled via OM: Order cancelled - Patient discharged Performed By: #### L 100.0100, L500.2500 ####[facility] [address] [place], [address] Calcium Normal 7.6-11.0 [facility] Comment on above: Result Comment: Canc elled via OM: Order cancelled - Patient discharged Performed By: #### L 100.0100, L500.2500 ####[facility] [address] [place], [address] CL Normal 98-107 [facility] Comment on above: Result Comment: Canc elled via OM: Order cancelled - Patient discharged Performed By: #### L 100.0100, L500.2500 ####[facility] [address] [place], [address] CO2 Normal 21.0-32.0 [facility] Comment on above: Result Comment: Canc elled via OM: Order cancelled - Patient discharged Performed By: #### L 100.0100, L500.2500 ####[facility] [address] [place], [address] CREAT,SERUM Normal 0.8-1.3 [facility] Comment on above: Result Comment: Canc elled via OM: Order cancelled - Patient discharged Performed By: #### L 100.0100, L500.2500 ####[facility] [address] [place], [address] eGFR Normal >60 [facility] Comment on above: Result Comment: Canc elled via OM: Order cancelled - Patient discharged Performed By: #### L 100.0100, L500.2500 ####[facility] [address] [place], [address] GAP Normal 5-15 [facility] Comment on above: Result Comment: Canc elled via OM: Order cancelled - Patient discharged Performed By: #### L 100.0100, L500.2500 ####[facility] [address] [place], [address] GLU Normal 70-99 [facility] Comment on above: Result Comment: Canc elled via OM: Order cancelled - Patient discharged Performed By: #### L 100.0100, L500.2500 ####[facility] [address] [place], [address] Potassium Normal 3.5-5.1 [facility] Comment on above: Result Comment: Canc elled via OM: Order cancelled - Patient discharged Performed By: #### L 100.0100, L500.2500 ####[facility] [address] [place], [address] Basic Metabolic Profile (BMP) Normal 136-145 [facility] Comment on above: Result Comment: Canc elled via OM: Order cancelled - Patient discharged Performed By: #### L 100.0100, L500.2500 ####[facility] [address] [place], [address] CBC W/Diff, Automatedon 03-0 Absolute Neut Normal 2.0-7.7 [facility] Comment on above: Result Comment: Canc elled via OM: Order cancelled - Patient discharged Performed By: #### L 100.0100, L500.2500 ####[facility] [address] [place], [address] HCT Normal 40-54 [facility] Comment on above: Result Comment: Canc elled via OM: Order cancelled - Patient discharged Performed By: #### L 100.0100, L500.2500 ####[facility] [address] [place], [address] HGB Normal 13.0-16.5 [facility] Comment on above: Result Comment: Canc elled via OM: Order cancelled - Patient discharged Performed By: #### L 100.0100, L500.2500 ####[facility] [address] [place], [address] MCH Normal 27.0-32.0 [facility] Comment on above: Result Comment: Canc elled via OM: Order cancelled - Patient discharged Performed By: #### L 100.0100, L500.2500 ####[facility] [address] [place], [address] MCHC Normal 32-36 [facility] Comment on above: Result Comment: Canc elled via OM: Order cancelled - Patient discharged Performed By: #### L 100.0100, L500.2500 ####[facility] [address] [place], [address] MCV Normal 80-94 [facility] Comment on above: Result Comment: Canc elled via OM: Order cancelled - Patient discharged Performed By: #### L 100.0100, L500.2500 ####[facility] [address] [place], [address] NEUT% Normal 47-70 [facility] Comment on above: Result Comment: Canc elled via OM: Order cancelled - Patient discharged Performed By: #### L 100.0100, L500.2500 ####[facility] [address] [place], [address] PLT Normal 150-450 [facility] Comment on above: Result Comment: Canc elled via OM: Order cancelled - Patient discharged Performed By: #### L 100.0100, L500.2500 ####[facility] [address] [place], [address] RBC Normal 4.6-6.2 [facility] Comment on above: Result Comment: Canc elled via OM: Order cancelled - Patient discharged Performed By: #### L 100.0100, L500.2500 ####[facility] [address] [place], [address] RDW CV Normal 11.6-14.6 [facility] Comment on above: Result Comment: Canc elled via OM: Order cancelled - Patient discharged Performed By: #### L 100.0100, L500.2500 ####[facility] [address] [place], [address] RDW SD Normal 35.1-43.9 [facility] Comment on above: Result Comment: Canc elled via OM: Order cancelled - Patient discharged Performed By: #### L 100.0100, L500.2500 ####[facility] [address] [place], [address] WBC Normal 4.4-11.0 [facility] Comment on above: Result Comment: Canc elled via OM: Order cancelled - Patient discharged Performed By: #### L 100.0100, L500.2500 ####[facility] [address] [place], [address] Absolute neutrophil countOrd ered By: Tricia Taylor on 09-30-2024 Neutrophils (Bld) [#/Vol] 7.1 10*3/uL 2.0-7.7 [facility] BUN/creatinine ratioOrdered By: Shanon Bravo on 09-30-2024 Urea nitrogen/Creatinine [Mass ratio] 41.7 mg/mg High 10-20 [facility] Basic Metabolic Profile (BMP )on 09-30-2024 Anion gap [Moles/Vol] 13 mmol/L Normal 5-15 [facility] Comment on above: Performed By: #### L 500.2500 ####[facility] [address] [place], [address] BUN/CRE 41.7 RATIO High 10-20 [facility] Comment on above: Performed By: #### L 500.2500 ####[facility] [address] [place], [address] Calcium [Mass/Vol] 8.3 mg/dL Normal 7.6-11.0 [facility] Comment on above: Performed By: #### L 500.2500 ####[facility] [address] [place], [address] Chloride [Moles/Vol] 107 mmol/L Normal 96-108 [facility] Comment on above: Performed By: #### L 500.2500 ####[facility] [address] [place], [address] CO2 [Moles/Vol] 22.6 mmol/L Normal 22.0-29.0 [facility] Comment on above: Performed By: #### L 500.2500 ####[facility] [address] [place], [address] Creatinine [Mass/Vol] 0.72 mg/dL Normal 0.70-1.20 [facility] Comment on above: Performed By: #### L 500.2500 ####[facility] [address] [place], [address] ECRCL 113.02 ml/min Normal [facility] Comment on above: Performed By: #### L 500.2500 ####[facility] [address] [place], [address] GFR/1.73 sq M.predicted among non-blacks MDRD (S/P/Bld) [Vol rate/Area] 101 mL/min/{1.73_m2} Normal >60 [facility] Comment on above: Result Comment: mL/m in/1.73m2 CKD-EPI Creatinine Equation (2020) Performed By: #### L 500.2500 ####[facility] [address] [place], [address] Glucose [Mass/Vol] 99 mg/dL Normal 70-99 [facility] Comment on above: Performed By: #### L 500.2500 ####[facility] [address] [place], [address] Potassium [Moles/Vol] 3.8 mmol/L Normal 3.3-5.1 [facility] Comment on above: Performed By: #### L 500.2500 ####[facility] [address] [place], [address] Sodium [Moles/Vol] 142 mmol/L Normal 133-145 [facility] Comment on above: Performed By: #### L 500.2500 ####[facility] [address] [place], [address] Urea nitrogen [Mass/Vol] 30 mg/dL High 4-19 [facility] Comment on above: Performed By: #### L 500.2500 ####[facility] [address] [place], [address] BUN/CRE 41.1 RATIO High 10-20 [facility] Comment on above: Result Comment: WILL REORDER Performed By: #### L 500.2500, L100.0100 ####[facility] [address] [place], [address] Creatinine [Mass/Vol] 0.70 mg/dL Normal 0.70-1.20 [facility] Comment on above: Result Comment: WILL REORDER Performed By: #### L 500.2500, L100.0100 ####[facility] [address] [place], [address] ECRCL 113.02 ml/min Normal [facility] Comment on above: Result Comment: WILL REORDER Performed By: #### L 500.2500, L100.0100 ####[facility] [address] [place], [address] GFR/1.73 sq M.predicted among non-blacks MDRD (S/P/Bld) [Vol rate/Area] 102 mL/min/{1.73_m2} Normal >60 [facility] Comment on above: Result Comment: WILL REORDERmL/min/1.73m2 CKD-EPI Creatinine Equation (2020) Performed By: #### L 500.2500, L100.0100 ####[facility] [address] [place], [address] Glucose [Mass/Vol] 102 mg/dL High 70-99 [facility] Comment on above: Result Comment: WILL REORDER Performed By: #### L 500.2500, L100.0100 ####[facility] [address] [place], [address] Urea nitrogen [Mass/Vol] 29 mg/dL High 4-19 [facility] Comment on above: Result Comment: WILL REORDER Performed By: #### L 500.2500, L100.0100 ####[facility] [address] [place], [address] Calcium Normal 7.6-11.0 [facility] Comment on above: Result Comment: WILL REORDER Performed By: #### L 500.2500, L100.0100 ####[facility] [address] [place], [address] CL Normal 98-107 [facility] Comment on above: Result Comment: WILL REORDER Performed By: #### L 500.2500, L100.0100 ####[facility] [address] [place], [address] CO2 Normal 21.0-32.0 [facility] Comment on above: Result Comment: WILL REORDER Performed By: #### L 500.2500, L100.0100 ####[facility] [address] [place], [address] GAP Normal 5-15 [facility] Comment on above: Result Comment: WILL REORDER Performed By: #### L 500.2500, L100.0100 ####[facility] [address] [place], [address] Potassium Normal 3.5-5.1 [facility] Comment on above: Result Comment: WILL REORDER Performed By: #### L 500.2500, L100.0100 ####[facility] [address] [place], [address] Basic Metabolic Profile (BMP) Normal 136-145 [facility] Comment on above: Result Comment: WILL REORDER Performed By: #### L 500.2500, L100.0100 ####[facility] [address] [place], [address] Basophil percentageOrdered B y: Tricia Taylor on 09-30-2024 Basophils/100 WBC (Bld) 0.1 % 0-1 [facility] CBC W/Diff, Automatedon 09-04 Absolute Lymph 2.14 X10 3/uL Normal 0.83-4.51 [facility] Comment on above: Performed By: #### L 500.2500, L100.0100 ####[facility] [address] [place], [address] Absolute Neut 7.1 X10 3/uL Normal 2.0-7.7 [facility] Comment on above: Performed By: #### L 500.2500, L100.0100 ####[facility] [address] [place], [address] Basophils/100 WBC (Bld) 0.1 % Normal 0-1 [facility] Comment on above: Performed By: #### L 500.2500, L100.0100 ####[facility] [address] [place], [address] Eosinophils/100 WBC (Bld) 0.1 % Normal 0-5 [facility] Comment on above: Performed By: #### L 500.2500, L100.0100 ####[facility] [address] [place], [address] Erythrocyte distribution width (RBC) [Ratio] 12.8 % Normal 11.6-14.6 [facility] Comment on above: Performed By: #### L 500.2500, L100.0100 ####[facility] [address] [place], [address] Hematocrit (Bld) [Volume fraction] 35.8 % Low 40-54 [facility] Comment on above: Performed By: #### L 500.2500, L100.0100 ####[facility] [address] [place], [address] Hemoglobin (Bld) [Mass/Vol] 12.3 g/dL Low 13.0-16.5 [facility] Comment on above: Performed By: #### L 500.2500, L100.0100 ####[facility] [address] [place], [address] IG% 0.500 Normal 0.0-0.9 [facility] Comment on above: Result Comment: IG% - Immature Granulocytes (promyelocytes, myelocytes andmetamyelocytes) > 1% indicates that a LEFT SHIFT is Present. Performed By: #### L 500.2500, L100.0100 ####[facility] [address] [place], [address] Lymphocytes/100 WBC (Bld) 20.8 % Normal 19-41 [facility] Comment on above: Performed By: #### L 500.2500, L100.0100 ####[facility] [address] [place], [address] MCH (RBC) [Entitic mass] 33.2 pg High 27.0-32.0 [facility] Comment on above: Performed By: #### L 500.2500, L100.0100 ####[facility] [address] [place], [address] MCHC (RBC) [Mass/Vol] 34.4 g/dL Normal 32-36 [facility] Comment on above: Performed By: #### L 500.2500, L100.0100 ####[facility] [address] [place], [address] MCV (RBC) [Entitic vol] 96.8 fL High 80-94 [facility] Comment on above: Performed By: #### L 500.2500, L100.0100 ####[facility] [address] [place], [address] Monocytes/100 WBC (Bld) 9.7 % Normal 0-10 [facility] Comment on above: Performed By: #### L 500.2500, L100.0100 ####[facility] [address] [place], [address] Neutrophils/100 WBC (Bld) 68.8 % Normal 47-70 [facility] Comment on above: Performed By: #### L 500.2500, L100.0100 ####[facility] [address] [place], [address] Nucleated RBC (Bld) [#/Vol] 0 10*3/uL Normal 0-5 [facility] Comment on above: Performed By: #### L 500.2500, L100.0100 ####[facility] [address] [place], [address] Platelet mean volume (Bld) [Entitic vol] 10.3 fL Normal 6.2-12.0 [facility] Comment on above: Performed By: #### L 500.2500, L100.0100 ####[facility] [address] [place], [address] Platelets (Bld) [#/Vol] 179 10*3/uL Normal 150-450 [facility] Comment on above: Performed By: #### L 500.2500, L100.0100 ####[facility] [address] [place], [address] RBC (Bld) [#/Vol] 3.70 10*6/uL Low 4.6-6.2 [facility] Comment on above: Performed By: #### L 500.2500, L100.0100 ####[facility] [address] [place], [address] RDW SD 45.6 fl High 35.1-43.9 [facility] Comment on above: Performed By: #### L 500.2500, L100.0100 ####[facility] [address] [place], [address] WBC (Bld) [#/Vol] 10.3 10*3/uL Normal 4.4-11.0 [facility] Comment on above: Performed By: #### L 500.2500, L100.0100 ####[facility] [address] [place], [address] Carbon dioxide measurementOr dered By: Shanon Bravo on 09-30-2024 CO2 [Moles/Vol] 22.6 mmol/L 22.0-29.0 [facility] Chloride measurementOrdered By: Shanon Bravo on 09-30-2024 Chloride [Moles/Vol] 107 mmol/L 96-108 [facility] Eosinophil percentageOrdered By: Tricia Taylor on 09-30-2024 Eosinophils/100 WBC (Bld) 0.1 % 0-5 [facility] Erythrocyte distribution wid th (RBC) [Ratio]Ordered By: Tricia Taylor on 09-30-2024 Erythrocyte distribution width (RBC) [Entitic vol] 45.6 fL High 35.1-43.9 [facility] Erythrocyte distribution wid th ratioOrdered By: Tricia Taylor on 09-30-2024 Erythrocyte distribution width (RBC) [Ratio] 12.8 % 11.6-14.6 [facility] Estimation of creatinine brandon aranceOrdered By: Shanon Bravo on 09-30-2024 Estimated Creatinine Clearance Calc 113.02 ml/min [facility] [facility] GFR/1.73 sq M.predicted ally g non-blacks MDRD (S/P/Bld) [Vol rate/Area]Ordered By: Shanon Bravo on 09-30-2024 Estimated GFR (MDRD) Non-Af Amer 101 >60 [facility] Comment on above: mL/min/1.73m2 CKD-EP I Creatinine Equation (2020) Hematocrit Auto (Bld) [Volum e fraction]Ordered By: Tricia Taylor on 09-30-2024 Hematocrit (Bld) [Volume fraction] 35.8 % Low 40-54 [facility] Hemoglobin measurementOrdere d By: Tricia Taylor on 09-30-2024 Hemoglobin (Bld) [Mass/Vol] 12.3 g/dL Low 13.0-16.5 [facility] Immature granulocytes/100 WB C Auto (Bld)Ordered By: Tricia Taylor on 09-30-2024 Immature granulocytes/100 WBC (Bld) 0.500 % 0.0-0.9 [facility] Comment on above: IG% - Immature Granu locytes (promyelocytes, myelocytes and metamyelocytes) > 1% indicates that a LEFT SHIFT is Present. Lymphocytes Auto (Unsp spec) [#/Vol]Ordered By: Tricia Taylor on 09-30-2024 Lymphocytes (Bld) [#/Vol] 2.14 10*3/uL 0.83-4.51 [facility] Lymphocytes/100 WBC Auto (Un sp spec)Ordered By: Tricia Taylor on 09-30-2024 Lymphocytes/100 WBC (Bld) 20.8 % 19-41 [facility] MCV (mean corpuscular volume ) determinationOrdered By: Tricia Taylor on 09-30-2024 MCV (RBC) [Entitic vol] 96.8 fL High 80-94 [facility] Mean corpuscular hemoglobin (MCH) determinationOrdered By: Tricia Taylor on 09-30-2024 MCH (RBC) [Entitic mass] 33.2 pg High 27.0-32.0 [facility] Mean corpuscular hemoglobin concentration (MCHC) determinationOrdered By: Tricia Taylor on 09-30-2024 MCHC (RBC) [Mass/Vol] 34.4 g/dL 32-36 [facility] Mean platelet volume determi nationOrdered By: Tricia Taylor on 09-30-2024 Platelet mean volume (Bld) [Entitic vol] 10.3 fL 6.2-12.0 [facility] Monocyte percentageOrdered B y: Tricia Taylor on 09-30-2024 Monocytes/100 WBC (Bld) 9.7 % 0-10 [facility] Neutrophil percentageOrdered By: Tricia Taylor on 09-30-2024 Neutrophils/100 WBC (Bld) 68.8 % 47-70 [facility] Nucleated red blood cell per centageOrdered By: Tricia Taylor on 09-30-2024 Nucleated RBC/100 WBC (Bld) [Ratio] 0 % 0-5 [facility] Platelet countOrdered By: John Taylor on 09-30-2024 Platelets (Bld) [#/Vol] 179 10*3/uL 150-450 [facility] RBC Auto (Bld) [#/Vol]Ordere d By: Tricia Taylor on 09-30-2024 RBC (Bld) [#/Vol] 3.70 10*6/uL Low 4.6-6.2 [facility] Serum creatinine measurement (mass/volume)Ordered By: Shanon Bravo on 09-30-2024 Creatinine [Mass/Vol] 0.72 mg/dL 0.70-1.20 [facility] Serum glucose measurement (m ass/volume)Ordered By: Shanon Bravo on 09-30-2024 Glucose [Mass/Vol] 99 mg/dL 70-99 [facility] Serum or plasma anion gap de termination (moles/volume)Ordered By: Shanon Bravo on 09-30-2024 Anion gap [Moles/Vol] 13 mmol/L 5-15 [facility] Serum or plasma calcium jody urement (mass/volume)Ordered By: Shanon Bravo on 09-30-2024 Calcium [Mass/Vol] 8.3 mg/dL 7.6-11.0 [facility] Serum or plasma potassium me asurementOrdered By: Shanon Brvao on 09-30-2024 Potassium [Moles/Vol] 3.8 mmol/L 3.3-5.1 [facility] Serum or plasma sodium measu rement (moles/volume)Ordered By: Shanon Bravo on 09-30-2024 Sodium [Moles/Vol] 142 mmol/L 133-145 [facility] Serum or plasma urea nitroge n measurement (mass/volume)Ordered By: Shanon Bravo on 09-30-2024 Urea nitrogen [Mass/Vol] 30 mg/dL High 4-19 [facility] White blood cell (WBC) count Ordered By: Tricia Taylor on 09-30-2024 WBC (Bld) [#/Vol] 10.3 10*3/uL 4.4-11.0 [facility] Basic Metabolic Profile (BMP )on 09-29-2024 Chloride [Moles/Vol] 107 mmol/L Normal 98-107 [facility] Comment on above: Performed By: #### L 100.0100, L500.2500 ####[facility] [address] [place], [address] CO2 [Moles/Vol] 21.9 mmol/L Normal 21.0-32.0 [facility] Comment on above: Performed By: #### L 100.0100, L500.2500 ####[facility] [address] [place], [address] GAP 11 Normal 5-15 [facility] Comment on above: Performed By: #### L 100.0100, L500.2500 ####[facility] [address] [place], [address] Potassium [Moles/Vol] 4.2 mmol/L Normal 3.5-5.1 [facility] Comment on above: Performed By: #### L 100.0100, L500.2500 ####[facility] [address] [place], [address] Sodium [Moles/Vol] 140 mmol/L Normal 136-145 [facility] Comment on above: Performed By: #### L 100.0100, L500.2500 ####[facility] [address] [place], [address] Calcium [Mass/Vol] 8.5 mg/dL Normal 7.6-11.0 [facility] Comment on above: Performed By: #### L 100.0100, L500.2500 ####[facility] [address] [place], [address] CBC W/Diff, Automatedon 02-2 Absolute Lymph 0.66 X10 3/uL Low 0.83-4.51 [facility] Comment on above: Performed By: #### L 100.0100, L500.2500 ####[facility] [address] [place], [address] Absolute Neut 11.6 X10 3/uL High 2.0-7.7 [facility] Comment on above: Performed By: #### L 100.0100, L500.2500 ####[facility] [address] [place], [address] Basophils/100 WBC (Bld) 0.1 % Normal 0-1 [facility] Comment on above: Performed By: #### L 100.0100, L500.2500 ####[facility] [address] [place], [address] Eosinophils/100 WBC (Bld) 0.0 % Normal 0-5 [facility] Comment on above: Performed By: #### L 100.0100, L500.2500 ####[facility] [address] [place], [address] Erythrocyte distribution width (RBC) [Ratio] 12.8 % Normal 11.6-14.6 [facility] Comment on above: Performed By: #### L 100.0100, L500.2500 ####[facility] [address] [place], [address] Hematocrit (Bld) [Volume fraction] 36.6 % Low 40-54 [facility] Comment on above: Performed By: #### L 100.0100, L500.2500 ####[facility] [address] [place], [address] Hemoglobin (Bld) [Mass/Vol] 12.2 g/dL Low 13.0-16.5 [facility] Comment on above: Performed By: #### L 100.0100, L500.2500 ####[facility] [address] [place], [address] IG% 0.400 Normal 0.0-0.9 [facility] Comment on above: Result Comment: IG% - Immature Granulocytes (promyelocytes, myelocytes andmetamyelocytes) > 1% indicates that a LEFT SHIFT is Present. Performed By: #### L 100.0100, L500.2500 ####[facility] [address] [place], [address] Lymphocytes/100 WBC (Bld) 5.1 % Low 19-41 [facility] Comment on above: Performed By: #### L 100.0100, L500.2500 ####[facility] [address] [place], [address] MCH (RBC) [Entitic mass] 32.3 pg High 27.0-32.0 [facility] Comment on above: Performed By: #### L 100.0100, L500.2500 ####[facility] [address] [place], [address] MCHC (RBC) [Mass/Vol] 33.3 g/dL Normal 32-36 [facility] Comment on above: Performed By: #### L 100.0100, L500.2500 ####[facility] [address] [place], [address] MCV (RBC) [Entitic vol] 96.8 fL High 80-94 [facility] Comment on above: Performed By: #### L 100.0100, L500.2500 ####[facility] [address] [place], [address] Monocytes/100 WBC (Bld) 5.5 % Normal 0-10 [facility] Comment on above: Performed By: #### L 100.0100, L500.2500 ####[facility] [address] [place], [address] Neutrophils/100 WBC (Bld) 88.9 % High 47-70 [facility] Comment on above: Performed By: #### L 100.0100, L500.2500 ####[facility] [address] [place], [address] Nucleated RBC (Bld) [#/Vol] 0 10*3/uL Normal 0-5 [facility] Comment on above: Performed By: #### L 100.0100, L500.2500 ####[facility] [address] [place], [address] Platelet mean volume (Bld) [Entitic vol] 10.1 fL Normal 6.2-12.0 [facility] Comment on above: Performed By: #### L 100.0100, L500.2500 ####[facility] [address] [place], [address] Platelets (Bld) [#/Vol] 183 10*3/uL Normal 150-450 [facility] Comment on above: Performed By: #### L 100.0100, L500.2500 ####[facility] [address] [place], [address] RBC (Bld) [#/Vol] 3.78 10*6/uL Low 4.6-6.2 [facility] Comment on above: Performed By: #### L 100.0100, L500.2500 ####[facility] [address] [place], [address] RDW SD 45.6 fl High 35.1-43.9 [facility] Comment on above: Performed By: #### L 100.0100, L500.2500 ####[facility] [address] [place], [address] WBC (Bld) [#/Vol] 13.0 10*3/uL High 4.4-11.0 [facility] Comment on above: Performed By: #### L 100.0100, L500.2500 ####[facility] [address] [place], [address] Serum or plasma chloride nghia surement (moles/volume)Ordered By: Tricia Taylor on 09-29-2024 Chloride [Moles/Vol] 107 mmol/L 98-107 [facility] Arterial patency Wrist arter y --pre arterial punctureOrdered By: Tricia Taylor on 09-28-2024 Dany Test Positive [facility] Base excess Calc (BldV) [Mol es/Vol]Ordered By: Tricia Taylor on 09-28-2024 Blood Gas Base Excess -2 mmol/L -2-2 [facility] Basic Metabolic Profile (BMP )on 09-28-2024 Chloride [Moles/Vol] 105 mmol/L Normal 98-107 [facility] Comment on above: Performed By: #### L 500.2500, L100.0100 ####[facility] [address] [place], [address] CO2 [Moles/Vol] 21.4 mmol/L Normal 21.0-32.0 [facility] Comment on above: Performed By: #### L 500.2500, L100.0100 ####[facility] [address] [place], [address] GAP 13 Normal 5-15 [facility] Comment on above: Performed By: #### L 500.2500, L100.0100 ####[facility] [address] [place], [address] Potassium [Moles/Vol] 3.8 mmol/L Normal 3.5-5.1 [facility] Comment on above: Performed By: #### L 500.2500, L100.0100 ####[facility] [address] [place], [address] Sodium [Moles/Vol] 139 mmol/L Normal 136-145 [facility] Comment on above: Performed By: #### L 500.2500, L100.0100 ####[facility] [address] [place], [address] Calcium [Mass/Vol] 8.0 mg/dL Normal 7.6-11.0 [facility] Comment on above: Performed By: #### L 500.2500, L100.0100 ####[facility] [address] [place], [address] [facility] Base excess Calc (Bld) [Moles/Vol] -3 mmol/L Low -2 to +2 [facility] Comment on above: Order Comment: WAS O RIGINALLY ENTERED VENOUS BUT IS ARTERIAL. CANCELLEDTHOSE RESULTS THEN MANUALLY ENTERED.Results manually entered by WBATDORF COCKTAIL LOUNGE MANAGER and verified byJTHEOBALD COCKTAIL LOUNGE MANAGER Performed By: #### L 0.0800 ####[facility] [address] [place], [address] CO2 [Moles/Vol] 25 mmol/L Normal [facility] Comment on above: Order Comment: WAS O RIGINALLY ENTERED VENOUS BUT IS ARTERIAL. CANCELLEDTHOSE RESULTS THEN MANUALLY ENTERED.Results manually entered by WBATDORF COCKTAIL LOUNGE MANAGER and verified byJTHEOBALD COCKTAIL LOUNGE MANAGER Performed By: #### L 0.0800 ####[facility] [address] [place], [address] HCO3 (Bld) [Moles/Vol] 23.6 mmol/L Normal 22-26 [facility] Comment on above: Order Comment: WAS O RIGINALLY ENTERED VENOUS BUT IS ARTERIAL. CANCELLEDTHOSE RESULTS THEN MANUALLY ENTERED.Results manually entered by ATDO COCKTAIL LOUNGE MANAGER and verified byJTHEOBALD COCKTAIL LOUNGE MANAGER Performed By: #### L 0.0800 ####[facility] [address] [place], [address] pCO2 48.7 mmHg High 35-45 [facility] Comment on above: Order Comment: WAS O RIGINALLY ENTERED VENOUS BUT IS ARTERIAL. CANCELLEDTHOSE RESULTS THEN MANUALLY ENTERED.Results manually entered by WBATDORF COCKTAIL LOUNGE MANAGER and verified byJTHEOBALD COCKTAIL LOUNGE MANAGER Performed By: #### L 9000.0800 ####[facility] [address] [place], [address] pH (Bld) 7.29 [pH] Low 7.35-7.45 [facility] Comment on above: Order Comment: WAS O RIGINALLY ENTERED VENOUS BUT IS ARTERIAL. CANCELLEDTHOSE RESULTS THEN MANUALLY ENTERED.Results manually entered by WBATDORF COCKTAIL LOUNGE MANAGER and verified byJTHEOBALD COCKTAIL LOUNGE MANAGER Performed By: #### L 9000.0800 ####[facility] [address] [place], [address] PO2 67 mmHG Low 75-100 [facility] Comment on above: Order Comment: WAS O RIGINALLY ENTERED VENOUS BUT IS ARTERIAL. CANCELLEDTHOSE RESULTS THEN MANUALLY ENTERED.Results manually entered by WBATDORF COCKTAIL LOUNGE MANAGER and verified byJTHEOBALD COCKTAIL LOUNGE MANAGER Performed By: #### L 9000.0800 ####[facility] [address] [place], [address] SO2 91 Low 95-99 [facility] Comment on above: Order Comment: WAS O RIGINALLY ENTERED VENOUS BUT IS ARTERIAL. CANCELLEDTHOSE RESULTS THEN MANUALLY ENTERED.Results manually entered by WBATDORF COCKTAIL LOUNGE MANAGER and verified byJTHEOBALD COCKTAIL LOUNGE MANAGER Performed By: #### L 9000.0800 ####[facility] [address] [place], [address] FI02 50.0 Normal [facility] Comment on above: Order Comment: WAS O RIGINALLY ENTERED VENOUS BUT IS ARTERIAL. CANCELLEDTHOSE RESULTS THEN MANUALLY ENTERED.Results manually entered by WBATDO COCKTAIL LOUNGE MANAGER and verified byJTHEOBALD COCKTAIL LOUNGE MANAGER Performed By: #### L 9000.0800 ####[facility] [address] [place], [address] PEEP 5 Normal [facility] Comment on above: Order Comment: WAS O RIGINALLY ENTERED VENOUS BUT IS ARTERIAL. CANCELLEDTHOSE RESULTS THEN MANUALLY ENTERED.Results manually entered by WBATDORF COCKTAIL LOUNGE MANAGER and verified byJTHEOBALD COCKTAIL LOUNGE MANAGER Performed By: #### L 9000.0800 ####[facility] [address] [place], [address] RR 12 Normal [facility] Comment on above: Order Comment: WAS O RIGINALLY ENTERED VENOUS BUT IS ARTERIAL. CANCELLEDTHOSE RESULTS THEN MANUALLY ENTERED.Results manually entered by WBATDORF COCKTAIL LOUNGE MANAGER and verified byJTHEOBALD COCKTAIL LOUNGE MANAGER Performed By: #### L 9000.0800 ####[facility] [address] [place], [address] DANY TEST Positive Normal [facility] Comment on above: Order Comment: WAS O RIGINALLY ENTERED VENOUS BUT IS ARTERIAL. CANCELLEDTHOSE RESULTS THEN MANUALLY ENTERED.Results manually entered by WBATDORF COCKTAIL LOUNGE MANAGER and verified byJTHEOBALD COCKTAIL LOUNGE MANAGER Performed By: #### L 9000.0800 ####[facility] [address] [place], [address] Mode A-C Normal [facility] Comment on above: Order Comment: WAS O RIGINALLY ENTERED VENOUS BUT IS ARTERIAL. CANCELLEDTHOSE RESULTS THEN MANUALLY ENTERED.Results manually entered by WBATDO COCKTAIL LOUNGE MANAGER and verified byJTHEOBALD COCKTAIL LOUNGE MANAGER Performed By: #### L 9000.0800 ####[facility] [address] [place], [address] O2 Delivery Dev Vent Normal [facility] Comment on above: Order Comment: WAS O RIGINALLY ENTERED VENOUS BUT IS ARTERIAL. CANCELLEDTHOSE RESULTS THEN MANUALLY ENTERED.Results manually entered by ATDORF COCKTAIL LOUNGE MANAGER and verified byJTHEOBALD COCKTAIL LOUNGE MANAGER Performed By: #### L 9000.0800 ####[facility] [address] [place], [address] SITE L RADIAL Normal [facility] Comment on above: Order Comment: WAS O RIGINALLY ENTERED VENOUS BUT IS ARTERIAL. CANCELLEDTHOSE RESULTS THEN MANUALLY ENTERED.Results manually entered by ATDORF COCKTAIL LOUNGE MANAGER and verified byJTHEOBALD COCKTAIL LOUNGE MANAGER Performed By: #### L 9000.0800 ####[facility] [address] [place], [address] Vt 500.0 mL [facility] Comment on above: Order Comment: WAS O RIGINALLY ENTERED VENOUS BUT IS ARTERIAL. CANCELLEDTHOSE RESULTS THEN MANUALLY ENTERED.Results manually entered by WBATDORF COCKTAIL LOUNGE MANAGER and verified byJTHEOBALD COCKTAIL LOUNGE MANAGER Performed By: #### L 9000.0800 ####[facility] [address] [place], [address] Blood Gas Type ART Normal [facility] Comment on above: Order Comment: WAS O RIGINALLY ENTERED VENOUS BUT IS ARTERIAL. CANCELLEDTHOSE RESULTS THEN MANUALLY ENTERED.Results manually entered by ANGEL COCKTAIL LOUNGE MANAGER and verified byGARRY COCKTAIL LOUNGE MANAGER Performed By: #### L 9000.0800 ####[facility] [address] [place], [address] DANY TEST Positive Normal [facility] Comment on above: Performed By: #### L 9000.0800 ####[facility] [address] [place], [address] Base excess Calc (Bld) [Moles/Vol] -2 mmol/L Normal -2 to +2 [facility] Comment on above: Performed By: #### L 9000.0800 ####[facility] [address] [place], [address] Blood Gas Type ART Normal [facility] Comment on above: Performed By: #### L 9000.0800 ####[facility] [address] [place], [address] CO2 [Moles/Vol] 24 mmol/L Normal [facility] Comment on above: Performed By: #### L 9000.0800 ####[facility] [address] [place], [address] FI02 30.0 Normal [facility] Comment on above: Performed By: #### L 9000.0800 ####[facility] [address] [place], [address] HCO3 (Bld) [Moles/Vol] 23.2 mmol/L Normal 22-26 [facility] Comment on above: Performed By: #### L 9000.0800 ####[facility] [address] [place], [address] Mode AC Normal [facility] Comment on above: Performed By: #### L 9000.0800 ####[facility] [address] [place], [address] O2 Delivery Dev Adult Vent Normal [facility] Comment on above: Performed By: #### L 0.0800 ####[facility] [address] [place], [address] pCO2 40.5 mmHg Normal 35-45 [facility] Comment on above: Performed By: #### L 0.0800 ####[facility] [address] [place], [address] PEEP 5 Normal [facility] Comment on above: Performed By: #### L 0.0800 ####[facility] [address] [place], [address] pH (Bld) 7.37 [pH] Normal 7.35-7.45 [facility] Comment on above: Performed By: #### L 0.0800 ####[facility] [address] [place], [address] PO2 60 mmHG Low 75-100 [facility] Comment on above: Performed By: #### L 0.0800 ####[facility] [address] [place], [address] RR 12 Normal [facility] Comment on above: Performed By: #### L 8999.0800 ####[facility] [address] [place], [address] SITE L Radial Normal [facility] Comment on above: Performed By: #### L 8999.0800 ####[facility] [address] [place], [address] SO2 90 Low 95-99 [facility] Comment on above: Performed By: #### L 0.0800 ####[facility] [address] [place], [address] Vt 500.0 mL Normal [facility] Comment on above: Performed By: #### L 9000.0800 ####[facility] [address] [place], [address] Blood bicarbonate measuremen tOrdered By: Tricia Taylor on 09-28-2024 Blood Gas Bicarbonate Actual 23.2 mmol/L [facility] CBC W/Diff, Automatedon 09-04 Absolute Lymph 0.69 X10 3/uL Low 0.83-4.51 [facility] Comment on above: Performed By: #### L 500.2500, L100.0100 ####[facility] [address] [place], [address] Absolute Neut 10.6 X10 3/uL High 2.0-7.7 [facility] Comment on above: Performed By: #### L 500.2500, L100.0100 ####[facility] [address] [place], [address] Basophils/100 WBC (Bld) 0.2 % Normal 0-1 [facility] Comment on above: Performed By: #### L 500.2500, L100.0100 ####[facility] [address] [place], [address] Eosinophils/100 WBC (Bld) 0.0 % Normal 0-5 [facility] Comment on above: Performed By: #### L 500.2500, L100.0100 ####[facility] [address] [place], [address] Erythrocyte distribution width (RBC) [Ratio] 12.4 % Normal 11.6-14.6 [facility] Comment on above: Performed By: #### L 500.2500, L100.0100 ####[facility] [address] [place], [address] Hematocrit (Bld) [Volume fraction] 38.8 % Low 40-54 [facility] Comment on above: Performed By: #### L 500.2500, L100.0100 ####[facility] [address] [place], [address] Hemoglobin (Bld) [Mass/Vol] 13.0 g/dL Normal 13.0-16.5 [facility] Comment on above: Performed By: #### L 500.2500, L100.0100 ####[facility] [address] [place], [address] IG% 0.500 Normal 0.0-0.9 [facility] Comment on above: Result Comment: IG% - Immature Granulocytes (promyelocytes, myelocytes andmetamyelocytes) > 1% indicates that a LEFT SHIFT is Present. Performed By: #### L 500.2500, L100.0100 ####[facility] [address] [place], [address] Lymphocytes/100 WBC (Bld) 5.7 % Low 19-41 [facility] Comment on above: Performed By: #### L 500.2500, L100.0100 ####[facility] [address] [place], [address] MCH (RBC) [Entitic mass] 32.8 pg High 27.0-32.0 [facility] Comment on above: Performed By: #### L 500.2500, L100.0100 ####[facility] [address] [place], [address] MCHC (RBC) [Mass/Vol] 33.5 g/dL Normal 32-36 [facility] Comment on above: Performed By: #### L 500.2500, L100.0100 ####[facility] [address] [place], [address] MCV (RBC) [Entitic vol] 98.0 fL High 80-94 [facility] Comment on above: Performed By: #### L 500.2500, L100.0100 ####[facility] [address] [place], [address] Monocytes/100 WBC (Bld) 6.3 % Normal 0-10 [facility] Comment on above: Performed By: #### L 500.2500, L100.0100 ####[facility] [address] [place], [address] Neutrophils/100 WBC (Bld) 87.3 % High 47-70 [facility] Comment on above: Performed By: #### L 500.2500, L100.0100 ####[facility] [address] [place], [address] Nucleated RBC (Bld) [#/Vol] 0 10*3/uL Normal 0-5 [facility] Comment on above: Performed By: #### L 500.2500, L100.0100 ####[facility] [address] [place], [address] Platelet mean volume (Bld) [Entitic vol] 10.0 fL Normal 6.2-12.0 [facility] Comment on above: Performed By: #### L 500.2500, L100.0100 ####[facility] [address] [place], [address] Platelets (Bld) [#/Vol] 158 10*3/uL Normal 150-450 [facility] Comment on above: Performed By: #### L 500.2500, L100.0100 ####[facility] [address] [place], [address] RBC (Bld) [#/Vol] 3.96 10*6/uL Low 4.6-6.2 [facility] Comment on above: Performed By: #### L 500.2500, L100.0100 ####[facility] [address] [place], [address] RDW SD 44.9 fl High 35.1-43.9 [facility] Comment on above: Performed By: #### L 500.2500, L100.0100 ####[facility] [address] [place], [address] WBC (Bld) [#/Vol] 12.1 10*3/uL High 4.4-11.0 [facility] Comment on above: Performed By: #### L 500.2500, L100.0100 ####[facility] [address] [place], [address] CPK Total, Creatine Kinaseon 09-28-2024 CPK TOTAL 197 U/L High 24-195 [facility] Comment on above: Order Comment: Comme nts: DC when propofol is d/c'd Performed By: #### L 501.3620, L501.5000 ####[facility] [address] [place], [address] Determination of fraction of inspired oxygenOrdered By: Tricia Taylor on 09-28-2024 Blood Gas Oxygen Percent 30.0 [facility] No Panel InformationOrdered By: Tricia Taylor on 09-28-2024 Bedside Blood Gas PEEP 5 [facility] Blood Gas Respiration Rate 12 [facility] Blood Gas Sample Site L Radial [facility] Blood Gas Specimen Type ART W [facility] Blood Gas Tidal Volume 500.0 mL [facility] Blood Gas Vent Mode AC [facility] Oxygen Delivery Device Adult Vent [facility] Oxygen saturation measuremen tOrdered By: Tricia Taylor on 09-28-2024 Blood Gas Oxygen Saturation 90 % Low 95-99 [facility] Partial pressure of carbon d ioxide measurementOrdered By: Tricia Taylor on 09-28-2024 Arterial Blood Partial Pressure CO2 40.5 mmHg 35-45 [facility] Partial pressure of oxygen m easurementOrdered By: Tricia Taylor on 09-28-2024 Arterial Blood Partial Pressure O2 60 mmHG Low 75-100 [facility] Serum or plasma creatine kin ase activityOrdered By: Chris Mascorro on 09-28-2024 CK [Catalytic activity/Vol] 197 U/L High 24-195 [facility] Total carbon dioxide measure mentOrdered By: Tricia Taylor on 09-28-2024 Blood Gas Total CO2 24 mmol/L [facility] Triglycerideson 09-28-2024 Triglyceride [Mass/Vol] 321 mg/dL High W [facility] Comment on above: Order Comment: Comme nts: DC when propofol is d/c'dDC when propofol is d/c'd Result Comment: The drugs N-Acetylcysteine and Metamizole may falselydepress this assay.Normal range: <150 mg/dLBorderline High: 150-199 mg/dLHigh: 200-499 mg/dLVery High: >500 mg/dL Performed By: #### L 501.3620, L501.5000 ####[facility] [address] [place], [address] Triglycerides measurementOrd ered By: Chris Mascorro on 09-28-2024 Triglyceride [Mass/Vol] 321 mg/dL High <199 [facility] Comment on above: The drugs N-Acetylcy steine and Metamizole may falsely depress this assay. Normal range: <150 mg/dLBorderline High: 150-199 mg/dLHigh: 200-499 mg/dLVery High: >500 mg/dL Venous Blood Gason Blood Gas Type ART Normal [facility] Comment on above: Order Comment: Arter ial blood gas was entered as a venous blood gas.Results manually entered by BALA COCKTAIL LOUNGE MANAGER AND VERIFIED BYANGEL COCKTAIL LOUNGE MANAGER ON 09/28/2024 AT 0645. Result Comment: Pratima rial blood gas was entered as a venous blood gas. AMENDED REPORT 09/28/24 0639 BLD GAS TYPE previously reported as: VENblood gas. Performed By: #### L 9000.0810 ####[facility] [address] [place], [place], [address] pH (Unsp spec)Ordered By: John Taylor on 09-28-2024 Blood Gas pH 7.37 7.35-7.45 [facility] Blood Gases by CPSon 025 Base excess Calc (Bld) [Moles/Vol] -2 mmol/L Normal -2 to +2 [facility] Comment on above: Performed By: #### L 8999.0800 ####[facility] [address] [place], [address] Blood Gas Type ART Normal [facility] Comment on above: Performed By: #### L 8999.0800 ####[facility] [address] [place], [address] CO2 [Moles/Vol] 25 mmol/L Normal [facility] Comment on above: Performed By: #### L 8999.0800 ####[facility] [address] [place], [address] FI02 50.0 Normal [facility] Comment on above: Performed By: #### L 8999.0800 ####[facility] [address] [place], [address] HCO3 (Bld) [Moles/Vol] 23.9 mmol/L Normal 22-26 W [facility] Comment on above: Performed By: #### L 8999.0800 ####[facility] [address] [place], [address] Mode Not entered Normal [facility] Comment on above: Performed By: #### L 8999.0800 ####[facility] [address] [place], [address] O2 Delivery Dev Venti Mask Normal [facility] Comment on above: Performed By: #### L 8999.0800 ####[facility] [address] [place], [address] pCO2 41.9 mmHg Normal 35-45 [facility] Comment on above: Performed By: #### L 8999.0800 ####[facility] [address] [place], [address] pH (Bld) 7.36 [pH] Normal 7.35-7.45 [facility] Comment on above: Performed By: #### L 9000.0800 ####[facility] [address] [place], [address] PO2 70 mmHG Low 75-100 [facility] Comment on above: Performed By: #### L 9000.0800 ####[facility] [address] [place], [address] SITE R Brach Normal [facility] Comment on above: Performed By: #### L 9000.0800 ####[facility] [address] [place], [address] SO2 93 Low 95-99 [facility] Comment on above: Performed By: #### L 9000.0800 ####[facility] [address] [place], [address] CBC W/Diff, Automatedon 02-2 5-2024 Absolute Lymph 0.80 X10 3/uL Low 0.83-4.51 [facility] Comment on above: Performed By: #### L 100.0100 ####[facility] [address] [place], [address] Absolute Neut 7.2 X10 3/uL Normal 2.0-7.7 [facility] Comment on above: Performed By: #### L 100.0100 ####[facility] [address] [place], [address] Basophils/100 WBC (Bld) 0.5 % Normal 0-1 [facility] Comment on above: Performed By: #### L 100.0100 ####[facility] [address] [place], [address] Eosinophils/100 WBC (Bld) 0.5 % Normal 0-5 [facility] Comment on above: Performed By: #### L 100.0100 ####[facility] [address] [place], [address] Erythrocyte distribution width (RBC) [Ratio] 12.4 % Normal 11.6-14.6 [facility] Comment on above: Performed By: #### L 100.0100 ####[facility] [address] [place], [address] Hematocrit (Bld) [Volume fraction] 42.8 % Normal 40-54 [facility] Comment on above: Performed By: #### L 100.0100 ####[facility] [address] [place], [address] Hemoglobin (Bld) [Mass/Vol] 14.4 g/dL Normal 13.0-16.5 [facility] Comment on above: Performed By: #### L 100.0100 ####[facility] [address] [place], [address] IG% 0.500 Normal 0.0-0.9 [facility] Comment on above: Result Comment: IG% - Immature Granulocytes (promyelocytes, myelocytes andmetamyelocytes) > 1% indicates that a LEFT SHIFT is Present. Performed By: #### L 100.0100 ####[facility] [address] [place], [address] Lymphocytes/100 WBC (Bld) 9.2 % Low 19-41 [facility] Comment on above: Performed By: #### L 100.0100 ####[facility] [address] [place], [address] MCH (RBC) [Entitic mass] 32.4 pg High 27.0-32.0 [facility] Comment on above: Performed By: #### L 100.0100 ####[facility] [address] [place], [address] MCHC (RBC) [Mass/Vol] 33.6 g/dL Normal 32-36 [facility] Comment on above: Performed By: #### L 100.0100 ####[facility] [address] [place], [address] MCV (RBC) [Entitic vol] 96.2 fL High 80-94 [facility] Comment on above: Performed By: #### L 100.0100 ####[facility] [address] [place], [address] Monocytes/100 WBC (Bld) 5.7 % Normal 0-10 [facility] Comment on above: Performed By: #### L 100.0100 ####[facility] [address] [place], [address] Neutrophils/100 WBC (Bld) 83.6 % High 47-70 [facility] Comment on above: Performed By: #### L 100.0100 ####[facility] [address] [place], [address] Nucleated RBC (Bld) [#/Vol] 0 10*3/uL Normal 0-5 [facility] Comment on above: Performed By: #### L 100.0100 ####[facility] [address] [place], [address] Platelet mean volume (Bld) [Entitic vol] 9.9 fL Normal 6.2-12.0 [facility] Comment on above: Performed By: #### L 100.0100 ####[facility] [address] [place], [address] Platelets (Bld) [#/Vol] 175 10*3/uL Normal 150-450 [facility] Comment on above: Performed By: #### L 100.0100 ####[facility] [address] [place], [address] RBC (Bld) [#/Vol] 4.45 10*6/uL Low 4.6-6.2 [facility] Comment on above: Performed By: #### L 100.0100 ####[facility] [address] [place], [address] RDW SD 43.9 fl Normal 35.1-43.9 [facility] Comment on above: Performed By: #### L 100.0100 ####[facility] [address] [place], [address] WBC (Bld) [#/Vol] 8.7 10*3/uL Normal 4.4-11.0 [facility] Comment on above: Performed By: #### L 100.0100 ####[facility] [address] [place], [address] Chest 1 Viewon 09-27-2024 Chest 1 View Normal [facility] Consultation - Intensiviston 09-27-2024 Consultation - Air Battle Manager Normal [facility] Hip 1 view with Pelvison Hip 1 view with Pelvis Normal [facility] Hip Min 2 Views (Portable)on 09-27-2024 Hip Min 2 Views (Portable) Normal [facility] Operative Reporton 5 Operative Report Normal [facility] Soft Tissue Neck without Con mike 09-27-2024 Soft Tissue Neck without Contr Normal [facility] Type AND Screenon 09-27-2024 Ab SCREEN GEL Negative Normal [facility] Comment on above: Order Comment: S Performed By: #### B TS ####[facility] [address] [place], [address] Venous Blood Gason 5 CO2 [Moles/Vol] 25 mmol/L Normal 23-33 [facility] Comment on above: Order Comment: Arter ial blood gas was entered as a venous blood gas.Results manually entered by ИРИНАVTFEMI COCKTAIL LOUNGE MANAGER AND VERIFIED BYANGEL COCKTAIL LOUNGE MANAGER ON 09/28/2024 AT 0645. Result Comment: Pratima rial blood gas was entered as a venous blood gas. Performed By: #### L 9000.0810 ####[facility] [address] [place], [place], [address] FI02 50.0 Normal [facility] Comment on above: Order Comment: Arter ial blood gas was entered as a venous blood gas.Results manually entered by DJOHNSON COCKTAIL LOUNGE MANAGER AND VERIFIED BYWBATRF COCKTAIL LOUNGE MANAGER ON 09/28/2024 AT 0645. Result Comment: Pratima rial blood gas was entered as a venous blood gas. Performed By: #### L 9000.0810 ####[facility] [address] [place], [address] HCO3 (Bld) [Moles/Vol] 24 mmol/L Normal -26 [facility] Comment on above: Order Comment: Arter ial blood gas was entered as a venous blood gas.Results manually entered by DJOHNSON COCKTAIL LOUNGE MANAGER AND VERIFIED BYWBATDO COCKTAIL LOUNGE MANAGER ON 09/28/2024 AT 0645. Result Comment: Pratima rial blood gas was entered as a venous blood gas. Performed By: #### L 9000.0810 ####[facility] [address] [place], [address] O2 Delivery Dev Adult Vent Normal [facility] Comment on above: Order Comment: Arter ial blood gas was entered as a venous blood gas.Results manually entered by DJVTNSON COCKTAIL LOUNGE MANAGER AND VERIFIED [facility] COCKTAIL LOUNGE MANAGER ON 09/28/2024 AT 0645. Result Comment: Pratima rial blood gas was entered as a venous blood gas. Performed By: #### L 9000.0810 ####[facility] [address] [place], [place], [address] PEEP 5 [facility] Comment on above: Order Comment: Arter ial blood gas was entered as a venous blood gas.Results manually entered by DJOHNSON COCKTAIL LOUNGE MANAGER AND VERIFIED BYWBATDORF COCKTAIL LOUNGE MANAGER ON 09/28/2024 AT 0645. Result Comment: Pratima rial blood gas was entered as a venous blood gas. Performed By: #### L 9000.0810 ####[facility] [address] [place], [address] RR 12 Normal [facility] Comment on above: Order Comment: Arter ial blood gas was entered as a venous blood gas.Results manually entered by [facility] COCKTAIL LOUNGE MANAGER AND VERIFIED [facility] COCKTAIL LOUNGE MANAGER ON 09/28/2024 AT 0645. Result Comment: Pratima rial blood gas was entered as a venous blood gas. Performed By: #### L 9000.0810 ####[facility] [address] [place], [place], [address] SITE L Radial Normal [facility] Comment on above: Order Comment: Arter ial blood gas was entered as a venous blood gas.Results manually entered by [facility] COCKTAIL LOUNGE MANAGER AND [facility] COCKTAIL LOUNGE MANAGER ON 09/28/2024 AT 0645. Result Comment: Pratima rial blood gas was entered as a venous blood gas. Performed By: #### L 9000.0810 ####[facility] [address] [place], [place], [address] VBG BE -3 mmol/L Low -1.0-3.5 [facility] Comment on above: Order Comment: Arter ial blood gas was entered as a venous blood gas.Results manually entered by [facility] COCKTAIL LOUNGE MANAGER AND [facility]IED [facility] COCKTAIL LOUNGE MANAGER ON 09/28/2024 AT 0645. Result Comment: Pratima rial blood gas was entered as a venous blood gas. Performed By: #### L 9000.0810 ####[facility] [address] [place], [place], [address] VBG pCO2 48.7 mmHg Normal 41-51 [facility] Comment on above: Order Comment: Arter ial blood gas was entered as a venous blood gas.Results manually entered by [facility] COCKTAIL LOUNGE MANAGER AND [facility] COCKTAIL LOUNGE MANAGER ON 09/28/2024 AT 0645. Result Comment: Pratima rial blood gas was entered as a venous blood gas. Performed By: #### L 9000.0810 ####[facility] [address] [place], [place], [address] VBG pH 7.29 Low 7.32-7.42 [facility] Comment on above: Order Comment: Arter ial blood gas was entered as a venous blood gas.Results manually entered by [facility] COCKTAIL LOUNGE MANAGER AND [facility]IFIED [facility] COCKTAIL LOUNGE MANAGER ON 09/28/2024 AT 0645. Result Comment: Pratima rial blood gas was entered as a venous blood gas. Performed By: #### L 9000.0810 ####[facility] [address] [place], [place], [address] VBG PO2 67 mmHg High 25-40 [facility] Comment on above: Order Comment: Arter ial blood gas was entered as a venous blood gas.Results manually entered by [facility] COCKTAIL LOUNGE MANAGER AND [facility] COCKTAIL LOUNGE MANAGER ON 09/28/2024 AT 0645. Result Comment: Pratima rial blood gas was entered as a venous blood gas. Performed By: #### L 9000.0810 ####[facility] [address] [place], [address] VBG SO2 91 High 50-70 [facility] Comment on above: Order Comment: Arter ial blood gas was entered as a venous blood gas.Results manually entered by [facility] COCKTAIL LOUNGE MANAGER AND [facility]IED [facility] COCKTAIL LOUNGE MANAGER ON 09/28/2024 AT 0645. Result Comment: Pratima rial blood gas was entered as a venous blood gas. Performed By: #### L 9000.0810 ####[facility] [address] [place], [place], [address] Vt 500.0 mL Normal [facility] Comment on above: Order Comment: Arter ial blood gas was entered as a venous blood gas.Results manually entered by [facility] COCKTAIL LOUNGE MANAGER AND [facility] COCKTAIL LOUNGE MANAGER ON 09/28/2024 AT 0645. Result Comment: Pratima rial blood gas was entered as a venous blood gas. Performed By: #### L 9000.0810 ####[facility] [address] [place], [address] 12 Lead EKGon 09-26-2024 12 Lead EKG Normal [facility] 50-BJ-Gkclheh DOrdered By: Natalie Luther on 09-26-2024 Vitamin D 25-Hydroxy 25.4 ng/mL [facility] Comment on above: Vitamin D 25(OH) Sta tus Range Deficiency <20 ng/mL (50nmol/L) Insufficiency 20 - 30 ng/mL (50 - 75 nmol/L) Sufficiency 30 - 100 ng/mL (75 - 250 nmol/L) Toxicity >100 ng/mL (>250 nmol/L) Albumin to globulin ratioOrd ered By: Jean Claude Luther on 09-26-2024 Albumin/Globulin [Mass ratio] 1.1 {ratio} 0.9-2.4 [facility] Basic Metabolic Profile (BMP )on 09-26-2024 BUN/CRE 17.2 RATIO Normal 10-20 [facility] Comment on above: Performed By: #### L 100.0100, L500.2500 ####[facility] [address] [place], [address] CA,Total 8.9 mg/dL Normal 8.5-10.1 [facility] Comment on above: Performed By: #### L 100.0100, L500.2500 ####[facility] [address] [place], [address] Chloride [Moles/Vol] 107 mmol/L Normal 98-107 [facility] Comment on above: Performed By: #### L 100.0100, L500.2500 ####[facility] [address] [place], [address] CO2 [Moles/Vol] 27.0 mmol/L Normal 21.0-32.0 [facility] Comment on above: Performed By: #### L 100.0100, L500.2500 ####[facility] [address] [place], [address] Creatinine [Mass/Vol] 0.76 mg/dL Normal 0.70-1.30 [facility] Comment on above: Result Comment: The validity of the calculated GFR GFRAA in patients over70 years has not been determined. Clinical correlation isessential. Performed By: #### L 100.0100, L500.2500 ####[facility] [address] [place], [address] ECRCL 125.10 ml/min Normal [facility] Comment on above: Performed By: #### L 100.0100, L500.2500 ####[facility] [address] [place], [address] EST GFR - AA 133 mL/min Normal >60 [facility] Comment on above: Result Comment: Afri can Togolese GFR Calc Performed By: #### L 100.0100, L500.2500 ####[facility] [address] [place], [address] GAP 5 Normal 5-15 [facility] Comment on above: Performed By: #### L 100.0100, L500.2500 ####[facility] [address] [place], [address] GFR/1.73 sq M.predicted among non-blacks MDRD (S/P/Bld) [Vol rate/Area] 110 mL/min/{1.73_m2} Normal >60 [facility] Comment on above: Result Comment: Non- GFR Calc Performed By: #### L 100.0100, L500.2500 ####[facility] [address] [place], [address] Glucose [Mass/Vol] 111 mg/dL High 74-106 [facility] Comment on above: Result Comment: Fast ing Glucose result from 100 to 125 mg/dLsuggests IMPAIRED HOMEOSTASIS per A.D.A. criteria. Performed By: #### L 100.0100, L500.2500 ####[facility] [address] [place], [address] Potassium [Moles/Vol] 4.2 mmol/L Normal 3.5-5.1 [facility] Comment on above: Performed By: #### L 100.0100, L500.2500 ####[facility] [address] [place], [address] Sodium [Moles/Vol] 139 mmol/L Normal 136-145 [facility] Comment on above: Performed By: #### L 100.0100, L500.2500 ####[facility] [address] [place], [address] Urea nitrogen [Mass/Vol] 13 mg/dL Normal 7-18 [facility] Comment on above: Performed By: #### L 100.0100, L500.2500 ####[facility] [address] [place], [address] Bilirubin, totalOrdered By: Jean Claude Luther on 09-26-2024 Bilirubin [Mass/Vol] 0.50 mg/dL 0.20-1.00 [facility] Comment on above: For patients on eltr ombopag therapy, use of Dimension [place] TBIL is not recommended. CBC W/Diff, Automatedon 09-04 Absolute Lymph 2.67 X10 3/uL Normal 0.83-4.51 [facility] Comment on above: Performed By: #### L 100.0100, L500.2500 ####[facility] [address] [place], [address] Absolute Neut 3.3 X10 3/uL Normal 2.0-7.7 [facility] Comment on above: Performed By: #### L 100.0100, L500.2500 ####[facility] [address] [place], [address] Basophils/100 WBC (Bld) 1.3 % High 0-1 [facility] Comment on above: Performed By: #### L 100.0100, L500.2500 ####[facility] [address] [place], [address] Eosinophils/100 WBC (Bld) 1.9 % Normal 0-5 [facility] Comment on above: Performed By: #### L 100.0100, L500.2500 ####[facility] [address] [place], [address] Erythrocyte distribution width (RBC) [Ratio] 12.1 % Normal 11.6-14.6 [facility] Comment on above: Performed By: #### L 100.0100, L500.2500 ####[facility] [address] [place], [address] Hematocrit (Bld) [Volume fraction] 43.3 % Normal 40-54 [facility] Comment on above: Performed By: #### L 100.0100, L500.2500 ####[facility] [address] [place], [address] Hemoglobin (Bld) [Mass/Vol] 14.9 g/dL Normal 13.0-16.5 [facility] Comment on above: Performed By: #### L 100.0100, L500.2500 ####[facility] [address] [place], [address] IG% 0.300 Normal 0.0-0.9 [facility] Comment on above: Result Comment: IG% - Immature Granulocytes (promyelocytes, myelocytes andmetamyelocytes) > 1% indicates that a LEFT SHIFT is Present. Performed By: #### L 100.0100, L500.2500 ####[facility] [address] [place], [address] Lymphocytes/100 WBC (Bld) 39.1 % Normal 19-41 [facility] Comment on above: Performed By: #### L 100.0100, L500.2500 ####[facility] [address] [place], [address] MCH (RBC) [Entitic mass] 32.7 pg High 27.0-32.0 [facility] Comment on above: Performed By: #### L 100.0100, L500.2500 ####[facility] [address] [place], [address] MCHC (RBC) [Mass/Vol] 34.4 g/dL Normal 32-36 [facility] Comment on above: Performed By: #### L 100.0100, L500.2500 ####[facility] [address] [place], [address] MCV (RBC) [Entitic vol] 95.0 fL High 80-94 [facility] Comment on above: Performed By: #### L 100.0100, L500.2500 ####[facility] [address] [place], [address] Monocytes/100 WBC (Bld) 8.9 % Normal 0-10 [facility] Comment on above: Performed By: #### L 100.0100, L500.2500 ####[facility] [address] [place], [address] Neutrophils/100 WBC (Bld) 48.5 % Normal 47-70 [facility] Comment on above: Performed By: #### L 100.0100, L500.2500 ####[facility] [address] [place], [address] Nucleated RBC (Bld) [#/Vol] 0 10*3/uL Normal 0-5 [facility] Comment on above: Performed By: #### L 100.0100, L500.2500 ####[facility] [address] [place], [address] Platelet mean volume (Bld) [Entitic vol] 9.6 fL Normal 6.2-12.0 [facility] Comment on above: Performed By: #### L 100.0100, L500.2500 ####[facility] [address] [place], [address] Platelets (Bld) [#/Vol] 223 10*3/uL Normal 150-450 [facility] Comment on above: Performed By: #### L 100.0100, L500.2500 ####[facility] [address] [place], [address] RBC (Bld) [#/Vol] 4.56 10*6/uL Low 4.6-6.2 [facility] Comment on above: Performed By: #### L 100.0100, L500.2500 ####[facility] [address] [place], [address] RDW SD 42.5 fl Normal 35.1-43.9 [facility] Comment on above: Performed By: #### L 100.0100, L500.2500 ####[facility] [address] [place], [address] WBC (Bld) [#/Vol] 6.8 10*3/uL Normal 4.4-11.0 [facility] Comment on above: Performed By: #### L 100.0100, L500.2500 ####[facility] [address] [place], [address] Chest 1 Viewon 09-26-2024 Chest 1 View Normal [facility] Comprehensive Metabolic Prof ilon 09-26-2024 Albumin [Mass/Vol] 3.6 g/dL Normal 3.2-5.0 [facility] Comment on above: Performed By: #### L 500.4050, L506.1000 ####[facility] [address] [place], [address] Albumin/Globulin [Mass ratio] 1.1 {ratio} Normal 0.9-2.4 [facility] Comment on above: Performed By: #### L 500.4050, L506.1000 ####[facility] [address] [place], [address] ALK P 67 U/L Normal 45-117 [facility] Comment on above: Performed By: #### L 500.4050, L506.1000 ####[facility] [address] [place], [address] ALT [Catalytic activity/Vol] 20 U/L Normal 16-61 [facility] Comment on above: Performed By: #### L 500.4050, L506.1000 ####[facility] [address] [place], [address] AST [Catalytic activity/Vol] 17 U/L Normal 15-37 [facility] Comment on above: Performed By: #### L 500.4050, L506.1000 ####[facility] [address] [place], [address] Bilirubin [Mass/Vol] 0.50 mg/dL Normal 0.20-1.00 [facility] Comment on above: Result Comment: For patients on eltrombopag therapy, use of Dimension [place] TBIL is not recommended. Performed By: #### L 500.4050, L506.1000 ####[facility] [address] [place], [address] BUN/CRE 17.1 RATIO Normal 10-20 [facility] Comment on above: Performed By: #### L 500.4050, L506.1000 ####[facility] [address] [place], [address] CA,Total 8.8 mg/dL Normal 8.5-10.1 [facility] Comment on above: Performed By: #### L 500.4050, L506.1000 ####[facility] [address] [place], [address] Chloride [Moles/Vol] 108 mmol/L High 98-107 [facility] Comment on above: Performed By: #### L 500.4050, L506.1000 ####[facility] [address] [place], [address] CO2 [Moles/Vol] 25.0 mmol/L Normal 21.0-32.0 [facility] Comment on above: Performed By: #### L 500.4050, L506.1000 ####[facility] [address] [place], [address] Creatinine [Mass/Vol] 0.82 mg/dL Normal 0.70-1.30 [facility] Comment on above: Result Comment: The validity of the calculated GFR GFRAA in patients over70 years has not been determined. Clinical correlation isessential. Performed By: #### L 500.4050, L506.1000 ####[facility] [address] [place], [address] ECRCL 110.26 ml/min Normal [facility] Comment on above: Performed By: #### L 500.4050, L506.1000 ####[facility] [address] [place], [address] EST GFR - AA 121 mL/min Normal >60 [facility] Comment on above: Result Comment: Afri can Togolese GFR Calc Performed By: #### L 500.4050, L506.1000 ####[facility] [address] [place], [address] GAP 7 Normal 5-15 [facility] Comment on above: Performed By: #### L 500.4050, L506.1000 ####[facility] [address] [place], [address] GFR/1.73 sq M.predicted among non-blacks MDRD (S/P/Bld) [Vol rate/Area] 100 mL/min/{1.73_m2} Normal >60 [facility] Comment on above: Result Comment: Non- GFR Calc Performed By: #### L 500.4050, L506.1000 ####[facility] [address] [place], [address] Globulin (S) [Mass/Vol] 3.3 g/dL Normal 2.2-4.2 [facility] Comment on above: Performed By: #### L 500.4050, L506.1000 ####[facility] [address] [place], [address] Glucose [Mass/Vol] 117 mg/dL High 74-106 [facility] Comment on above: Result Comment: Fast ing Glucose result from 100 to 125 mg/dLsuggests IMPAIRED HOMEOSTASIS per A.D.A. criteria. Performed By: #### L 500.4050, L506.1000 ####[facility] [address] [place], [address] Potassium [Moles/Vol] 4.4 mmol/L Normal 3.5-5.1 [facility] Comment on above: Performed By: #### L 500.4050, L506.1000 ####[facility] [address] [place], [address] Sodium [Moles/Vol] 140 mmol/L Normal 136-145 [facility] Comment on above: Performed By: #### L 500.4050, L506.1000 ####[facility] [address] [place], [address] T PROT 6.9 g/dL Normal 6.4-8.2 [facility] Comment on above: Performed By: #### L 500.4050, L506.1000 ####[facility] [address] [place], [address] Urea nitrogen [Mass/Vol] 14 mg/dL Normal 7-18 [facility] Comment on above: Performed By: #### L 500.4050, L506.1000 ####[facility] [address] [place], [address] Emergency Department Summary on 09-26-2024 Emergency Department Summary Normal [facility] Estimated glomerular filtrat ion rate (GFR) AmericanOrdered By: Jean Claude Luther on 09-26-2024 Estimated GFR (MDRD) Amer 121 mL/min >60 [facility] Comment on above: GFR Calc Femur Min 2 Viewson 09-26-19 25 Femur Min 2 Views Normal [facility] H AND P Exam - Hospitaliston 09-26-2024 H&P Exam - Hospitalist Normal [facility] Laboratory - Chemistry and C hemistry - challengeOrdered By: Jean Claude Luther on 09-26-2024 AST [Catalytic activity/Vol] 17 U/L 15-37 [facility] Pelvis 1 or 2 Viewson 2024 Pelvis 1 or 2 Views Normal [facility] Serum globulin measurementOr dered By: Jean Claude Luther on 09-26-2024 Globulin (S) [Mass/Vol] 3.3 g/dL 2.2-4.2 [facility] Serum or plasma alanine valentin otransferase (ALT) measurementOrdered By: Jean Claude Luther on 09-26-2024 ALT [Catalytic activity/Vol] 20 U/L 16-61 [facility] Serum or plasma albumin jody urement (mass/volume)Ordered By: Jean Claude Luther on 09-26-2024 Albumin [Mass/Vol] 3.6 g/dL 3.2-5.0 [facility] Serum or plasma alkaline skip sphatase measurementOrdered By: Jean Claude Luther on 09-26-2024 ALP [Catalytic activity/Vol] 67 U/L 45-117 [facility] Total proteinOrdered By: Airam Luther on 09-26-2024 Protein [Mass/Vol] 6.9 g/dL 6.4-8.2 [facility] Vitamin D,25 Hydroxyon 09-26 Vitamin D 25-OH 25.4 ng/mL Normal [facility] Comment on above: Result Comment: Cecy min D 25(OH) Status Range Deficiency <20 ng/mL (50nmol/L) Insufficiency 20 - 30 ng/mL (50 - 75 nmol/L) Sufficiency 30 - 100 ng/mL (75 - 250 nmol/L) Toxicity >100 ng/mL (>250 nmol/L) Performed By: #### L 500.4050, L506.1000 ####[facility] [address] [place], [address] Internal Medicine Office Vis iton 08-15-2024 Internal Medicine Office Visit Normal [facility] 12 Lead EKGon 07-31-2024 12 Lead EKG Normal [facility] Basic Metabolic Profile (BMP )on 07-31-2024 BUN/CRE 12.3 RATIO Normal 10-20 [facility] Comment on above: Order Comment: 'TROP ' Serial specimen #1, #2 or #3: 1 Performed By: #### L 100.0500, L500.2500, L501.4020 ####[facility] [address] [place], [address] CA,Total 9.3 mg/dL Normal 8.5-10.1 [facility] Comment on above: Order Comment: 'TROP ' Serial specimen #1, #2 or #3: 1 Performed By: #### L 100.0500, L500.2500, L501.4020 ####[facility] [address] [place], [address] Chloride [Moles/Vol] 105 mmol/L Normal 98-107 [facility] Comment on above: Order Comment: 'TROP ' Serial specimen #1, #2 or #3: 1 Performed By: #### L 100.0500, L500.2500, L501.4020 ####[facility] [address] [place], [address] CO2 [Moles/Vol] 29.0 mmol/L Normal 21.0-32.0 [facility] Comment on above: Order Comment: 'TROP ' Serial specimen #1, #2 or #3: 1 Performed By: #### L 100.0500, L500.2500, L501.4020 ####[facility] [address] [place], [address] Creatinine [Mass/Vol] 0.73 mg/dL Normal 0.70-1.30 [facility] Comment on above: Order Comment: 'TROP ' Serial specimen #1, #2 or #3: 1 Result Comment: The validity of the calculated GFR GFRAA in patients over70 years has not been determined. Clinical correlation isessential. Performed By: #### L 100.0500, L500.2500, L501.4020 ####[facility] [address] [place], [address] ECRCL 125.51 ml/min Normal [facility] Comment on above: Order Comment: 'TROP ' Serial specimen #1, #2 or #3: 1 Performed By: #### L 100.0500, L500.2500, L501.4020 ####[facility] [address] [place], [address] EST GFR - AA 138 mL/min Normal >60 [facility] Comment on above: Order Comment: 'TROP ' Serial specimen #1, #2 or #3: 1 Result Comment: Afri can [place]ogolese GFR Calc Performed By: #### L 100.0500, L500.2500, L501.4020 ####[facility] [address] [place], [address] GAP 5 Normal 5-15 [facility] Comment on above: Order Comment: 'TROP ' Serial specimen #1, #2 or #3: 1 Performed By: #### L 100.0500, L500.2500, L501.4020 ####[facility] [address] [place], [address] GFR/1.73 sq M.predicted among non-blacks MDRD (S/P/Bld) [Vol rate/Area] 114 mL/min/{1.73_m2} Normal >60 [facility] Comment on above: Order Comment: 'TROP ' Serial specimen #1, #2 or #3: 1 Result Comment: Non- GFR Calc Performed By: #### L 100.0500, L500.2500, L501.4020 ####[facility] [address] [place], [address] Glucose [Mass/Vol] 88 mg/dL Normal 74-106 [facility] Comment on above: Order Comment: 'TROP ' Serial specimen #1, #2 or #3: 1 Performed By: #### L 100.0500, L500.2500, L501.4020 ####[facility] [address] [place], [address] Potassium [Moles/Vol] 4.5 mmol/L Normal 3.5-5.1 [facility] Comment on above: Order Comment: 'TROP ' Serial specimen #1, #2 or #3: 1 Result Comment: Mode rate Hemolysis, Result may be falsely increased. Performed By: #### L 100.0500, L500.2500, L501.4020 ####[facility] [address] [place], [address] Sodium [Moles/Vol] 139 mmol/L Normal 136-145 [facility] Comment on above: Order Comment: 'TROP ' Serial specimen #1, #2 or #3: 1 Performed By: #### L 100.0500, L500.2500, L501.4020 ####[facility] [address] [place], [address] Urea nitrogen [Mass/Vol] 9 mg/dL Normal 7-18 [facility] Comment on above: Order Comment: 'TROP ' Serial specimen #1, #2 or #3: 1 Performed By: #### L 100.0500, L500.2500, L501.4020 ####[facility] [address] [place], [address] Blood urea nitrogen (BUN)/cr eatinine ratioOrdered By: Baljit Fleming on 07-31-2024 Urea nitrogen/Creatinine [Mass ratio] 12.3 mg/mg 10- [facility] Brain/Head without Contrasto n 07-31-2024 Brain/Head without Contrast Normal [facility] CBC-Complete Blood Cnt No Di ffon 07-31-2024 Erythrocyte distribution width (RBC) [Ratio] 12.4 % Normal 11.6-14.6 [facility] Comment on above: Performed By: #### L 100.0500, L500.2500, L501.4020 ####[facility] [address] [place], [address] Hematocrit (Bld) [Volume fraction] 43.3 % Normal 40-54 [facility] Comment on above: Performed By: #### L 100.0500, L500.2500, L501.4020 ####[facility] [address] [place], [address] Hemoglobin (Bld) [Mass/Vol] 14.9 g/dL Normal 13.0-16.5 [facility] Comment on above: Performed By: #### L 100.0500, L500.2500, L501.4020 ####[facility] [address] [place], [address] MCH (RBC) [Entitic mass] 33.2 pg High 27.0-32.0 [facility] Comment on above: Performed By: #### L 100.0500, L500.2500, L501.4020 ####[facility] [address] [place], [address] MCHC (RBC) [Mass/Vol] 34.4 g/dL Normal 32-36 [facility] Comment on above: Performed By: #### L 100.0500, L500.2500, L501.4020 ####[facility] [address] [place], [address] MCV (RBC) [Entitic vol] 96.4 fL High 80-94 [facility] Comment on above: Performed By: #### L 100.0500, L500.2500, L501.4020 ####[facility] [address] [place], [address] Platelet mean volume (Bld) [Entitic vol] 11.0 fL Normal 6.2-12.0 [facility] Comment on above: Performed By: #### L 100.0500, L500.2500, L501.4020 ####[facility] [address] [place], [address] Platelets (Bld) [#/Vol] 233 10*3/uL Normal 150-450 [facility] Comment on above: Performed By: #### L 100.0500, L500.2500, L501.4020 ####[facility] [address] [place], [address] RBC (Bld) [#/Vol] 4.49 10*6/uL Low 4.6-6.2 [facility] Comment on above: Performed By: #### L 100.0500, L500.2500, L501.4020 ####[facility] [address] [place], [address] RDW SD 44.2 fl High 35.1-43.9 [facility] Comment on above: Performed By: #### L 100.0500, L500.2500, L501.4020 ####[facility] [address] [place], [address] WBC (Bld) [#/Vol] 5.9 10*3/uL Normal 4.4-11.0 [facility] Comment on above: Performed By: #### L 100.0500, L500.2500, L501.4020 ####[facility] [address] [place], [address] Carbon dioxide measurementOr dered By: Baljit Fleming on 07-31-2024 CO2 [Moles/Vol] 29.0 mmol/L 21.0-32.0 [facility] Chest 1 View (Portable)on Chest 1 View (Portable) Normal [facility] Chloride measurementOrdered By: Baljit Fleming on 07-31-2024 Chloride [Moles/Vol] 105 mmol/L 98-107 [facility] Emergency Department Summary on 07-31-2024 Emergency Department Summary Normal [facility] Erythrocyte distribution wid th (RBC) [Ratio]Ordered By: Baljit Fleming on 07-31-2024 Erythrocyte distribution width (RBC) [Entitic vol] 44.2 fL High 35.1-43.9 [facility] Erythrocyte distribution wid th ratioOrdered By: Baljit Fleming on 07-31-2024 Erythrocyte distribution width (RBC) [Ratio] 12.4 % 11.6-14.6 [facility] Estimated glomerular filtrat ion rate (GFR) AmericanOrdered By: Baljit Fleming on 07-31-2024 Estimated GFR (MDRD) Amer 138 mL/min >60 [facility] Comment on above: GFR Calc Estimation of creatinine brandon aranceOrdered By: Baljit Fleming on 07-31-2024 Estimated Creatinine Clearance Calc 125.51 ml/min [facility] Glomerular filtration rate ( GFR) estimationOrdered By: Baljit Fleming on 07-31-2024 Estimated GFR (MDRD) Non-Af Amer 114 mL/min >60 [facility] Comment on above: Non- GFR Calc Glucose measurementOrdered B y: Baljit Fleming on 07-31-2024 Glucose [Mass/Vol] 88 mg/dL 74-106 [facility] Hematocrit Auto (Bld) [Volum e fraction]Ordered By: Baljit Fleming on 07-31-2024 Hematocrit (Bld) [Volume fraction] 43.3 % 40-54 [facility] Hemoglobin measurementOrdere d By: Baljit Fleming on 07-31-2024 Hemoglobin (Bld) [Mass/Vol] 14.9 g/dL 13.0-16.5 [facility] Influenza virus A and B and SARS-CoV-2 (COVID-19) and Respiratory syncytial virus RNAOrdered By: Baljit Fleming on 07-31-2024 SARS-CoV-2 (COVID-19) RNA VALENTINA+probe Ql (Unsp spec) [facility] L501.4020on 07-31-2024 TROPONIN-I HS 10 pg/mL Normal 3.0-78.0 [facility] Comment on above: Order Comment: 'TROP ' Serial specimen #1, #2 or #3: 1 Result Comment: Sacha aguirre Note: New Test Units and Gender Specific Reference Ranges. For more information see Policy Stat Procedure [place] High Sensitivity Troponin (TNIH) and attachments. Performed By: #### L 100.0500, L500.2500, L501.4020 ####[facility] [address] [place], [address] M100.678on 07-31-2024 M100.678 Pending SARS-CoV-2 (COVID 19) Negative INFLUENZA A Negative INFLUENZA B Negative RSV PCR Negative Normal [facility] Comment on above: Performed By: #### M 100.678 ####[facility] [address] [place], [address] MCV (mean corpuscular volume ) determinationOrdered By: Baljit Fleming on 07-31-2024 MCV (RBC) [Entitic vol] 96.4 fL High 80-94 [facility] Mean corpuscular hemoglobin (MCH) determinationOrdered By: Baljit Fleming on 07-31-2024 MCH (RBC) [Entitic mass] 33.2 pg High 27.0-32.0 [facility] Mean corpuscular hemoglobin concentration (MCHC) determinationOrdered By: Baljit Fleming on 07-31-2024 MCHC (RBC) [Mass/Vol] 34.4 g/dL 32-36 [facility] Mean platelet volume determi nationOrdered By: Baljit Fleming on 07-31-2024 Platelet mean volume (Bld) [Entitic vol] 11.0 fL 6.2-12.0 [facility] Platelet countOrdered By: jaja Fleming on 07-31-2024 Platelets (Bld) [#/Vol] 233 10*3/uL 150-450 [facility] Potassium measurementOrdered By: Baljit Fleming on 07-31-2024 Potassium [Moles/Vol] 4.5 mmol/L 3.5-5.1 [facility] Comment on above: Moderate Hemolysis, Result may be falsely increased. RBC Auto (Bld) [#/Vol]Ordere d By: Baljit Fleming on 07-31-2024 RBC (Bld) [#/Vol] 4.49 10*6/uL Low 4.6-6.2 [facility] Serum anion gap measurementO rdered By: Baljit Fleming on 07-31-2024 Anion gap [Moles/Vol] 5 mmol/L 5-15 [facility] Serum or plasma calcium jody urement (mass/volume)Ordered By: Baljit Fleming on 07-31-2024 Calcium [Mass/Vol] 9.3 mg/dL 8.5-10.1 [facility] Serum or plasma creatinine m easurement (mass/volume)Ordered By: Baljit Fleming on 07-31-2024 Creatinine [Mass/Vol] 0.73 mg/dL 0.70-1.30 [facility] Comment on above: The validity of the calculated GFR & GFRAA in patients over 70 years has not been determined. Clinical correlation is essential. Serum or plasma urea nitroge n measurement (mass/volume)Ordered By: Baljit Fleming on 07-31-2024 Urea nitrogen [Mass/Vol] 9 mg/dL 7-18 [facility] Sodium levelOrdered By: Kelby Fleming on 07-31-2024 Sodium [Moles/Vol] 139 mmol/L 136-145 [facility] Troponin IOrdered By: Baljit Fleming on 07-31-2024 Troponin I High Sensitivity 10 pg/mL 3.0-78.0 [facility] Comment on above: Please Note: New Susy t Units and Gender Specific Reference Ranges. For more information see Policy Stat Procedure [place] High Sensitivity Troponin (TNIH) and attachments. White blood cell (WBC) count Ordered By: Baljit Fleming on 07-31-2024 WBC (Bld) [#/Vol] 5.9 10*3/uL 4.4-11.0 [facility] CNOVon 06-01-2024 CNOV Office Visit ([facility]) OLGA MARTIN ([id number]) 1960 M Date Time Provider Department 06/01/24 3:00 PM EVAN WALDEN [facility] During your visit today, we recorded the following information about you: Pulse Weight Height 88/minute 101.6 kg 1.93 m Evan Walden MD 06/01/2024 4:44 PM Signed NEW PATIENT EVALUATION Subjective HPI Olga Martin is a 63 year old right-handed male who presents for evaluation of tremor. Dr. Zoraida Marino MD is the PCP. He notes tremor started in 2015 first in the right hand then the left hand a couple years later. Started with tremor at rest then gradually involved action. Walks with a cane at home, wheelchair outside the house. Burst fracture L3 in 1983, has had at least 8 surgeries on his back, extensive changes with foot drop and chronic gait impairment from this. Sense of smell absent for many years before symptom onset. No consistent constipation. Has dream enactment every other night, tremor also present when asleep. Index fingers want to curl in. No LH with standing. Had hallucinations after appendix burst / surgery, none recently. Problems with depression / anxiety, interested in medication for this today. Sleep is poor, previously tried melatonin but caused nightmares. Mentions tongue dystonia but more describing tremor. Mom had what sounds like dystonia and tongue protrusion, diagnosed as having Parkinson's though. Was on levodopa which may explain her involuntary movements. Mom's twin sister with tremor attributed to alcoholism. Has had multiple med trials. On propranolol ER 60 mg daily not sure how much it helps. No etoh due to history of pancreas problems. Prior prescriptions in records: - Cd/ld 25/100 CR BID 06/17/19 - Primidone 25 mg 4xday 10/11/19 and 06/12/20 - Trihexyphenidyl (Dr. Davis, unsure response) - Keppra - Flexeril Medications: Current Outpatient Medications Medication Sig Dispense Refill propranolol HCl (PROPRANOLOL ORAL) Take 1 capsule by mouth once daily. promethazine (PHENERGAN) 25 mg tablet Take 1 tablet by mouth every 6 hours as needed. 30 tablet 1 prazosin (MINIPRESS) 1 mg cap Take 1 capsule by mouth daily at bedtime. (Patient not taking: Reported on 06/01/2024) 30 capsule 2 triamterene-hydrochl orothiazide (DYAZIDE) 37.5-25 mg per capsule Take 1 capsule by mouth once daily. (Patient not taking: Reported on 05/30/2021) 30 capsule 11 No current facility-administere d medications for this visit. ROS ROS: His ROS was positive for that mentioned in the HPI. Otherwise a 10-point ROS was completed and was negative. ALLERGIES Allergen Reactions Acetaminophen GI Upset, Other: See Comments headaches Duloxetine Other: See Comments Made him Duragesic [Fentanyl] GI Upset Gabapentin Vomiting Reglan [Metoclopram* Mental Status Change Robaxin [Methocarba* Vomiting Tramadol ultram flu symptoms Past Medical History: PAST MEDICAL HISTORY Diagnosis Date Foot drop, right s/p back injury Generalized anxiety disorder Anxiety, Generalized Generalized osteoarthrosis, unspecified site History of pancreatitis 1 bout in 2004--no cause found; no recurrences LUMB/LUMBOSAC DISC DEGEN 01/18/2002 LUMBOSACRAL NEURITIS NOS 01/18/2002 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 Social History: Social History Tobacco Use Smoking status: Former Smokeless tobacco: Never Tobacco comments: quit 1980 Substance Use Topics Alcohol use: No Drug use: No No etoh Objective 06/01/24 1447 Pulse: 88 SpO2: 97% Weight: 101.6 kg (224 lb) Height: 193 cm (6' 4) Physical Examination General Appearance: Well appearing, alert, in no acute distress, well-hydrated, well nourished. Head: Normocephalic Neck: Supple Heart: RRR Peripheral Pulses: Normal Neurologic Examination Mental Status: He is alert. He is fully oriented. Attention is intact. Recent and remote memory is intact. Language shows normal comprehension and fluency. Praxis is normal. Affect is appropriate. Cranial Nerves: Pupils are equal and reactive to light. Extraocular movements show full and smooth pursuits. No nystagmus. Visual fajardo are full to confrontation. Facial sensation is intact. Facial activation is symmetric. Hearing is intact to conversation. There is mild hypomimia. There is mild hypophonia. There is no dysarthria. Tongue is midline. Palate elevates symmetrically. Shoulder shrug is mildly james (more content not included)... Normal [facility] Abdomen W/WO IV Contraston 1 Abdomen W/WO IV Contrast Normal [facility] Adrenocorticotropic Hormoneo n 04-30-2024 ACTH 6.6 pg/mL Low 7.2-63.3 [facility] Comment on above: Order Comment: N Result Comment: ACTH reference interval for samples collected between 7 and10 AM.Performed at: [id number] [id number] Director: Calderon Shane PhD, Phone: [phone] Performed By: #### L 3300.1000 ####[facility] [id number] [place], [address] Basophil percentageOrdered B y: Zoraida Marino on 07-22-2023 Cholesterol [Mass/Vol] 189 mg/dL <200 [facility] Comment on above: <200 mg/dL Desirable 200-240 mg/dL Borderline >240 mg/dL High Risk Triglyceride [Mass/Vol] 86 mg/dL <199 [facility] Comment on above: The drugs N-Acetylcy steine and Metamizole may falsely depress this assay.Serum Triglycerides Reference Interval Normal <150 mg/dL Borderline high 150 - 199 mg/dL High 200 - 499 mg/dL Very High > or = 500 mg/dL Serum or plasma cholesterol in HDL measurement (mass/volume)Ordered By: Zoraida Marino on 07-22-2023 Cholesterol in HDL [Mass/Vol] 55 mg/dL >40 [facility] Comment on above: The drugs N-Acetylcy steine and Metamizole may falsely depress this assay. Reference Range HDL <40 mg/dL Low HDL Cholesterol HDL >or= 60 mg/dL High HDL Cholesterol Serum or plasma cholesterol in VLDL measurement (mass/volume)Ordered By: Zoraida Marino on 07-22-2023 Cholesterol in VLDL [Mass/Vol] 17 mg/dL 5-40 [facility] Serum or plasma low density lipoprotein (LDL) cholesterol measurement (mass/volume)Ordered By: Zoraida Marino on 07-22-2023 Cholesterol in LDL [Mass/Vol] 117 mg/dL 0-130 [facility] Basophil percentageOrdered B y: Dr. Vieira on 10-13-2022 Basophil percentage < 10.0 umol/L 11-32 [facility] Bilirubin [Mass/Vol] 0.70 mg/dL 0.20-1.00 [facility] Comment on above: For patients on eltr ombopag therapy, use of Dimension [place] TBIL is not recommended. Chloride [Moles/Vol] 107 mmol/L 98-107 [facility] Glucose [Mass/Vol] 96 mg/dL 74-106 [facility] Potassium [Moles/Vol] 3.9 mmol/L 3.5-5.1 [facility] Protein [Mass/Vol] 7.3 g/dL 6.4-8.2 [facility] Sodium [Moles/Vol] 141 mmol/L 136-145 [facility] WBC (Bld) [#/Vol] 8.8 10*3/uL 4.4-11.0 [facility] Blood erythrocytes count (nu mber/volume)Ordered By: Dr. Vieira on 10-13-2022 RBC (Bld) [#/Vol] 4.85 10*6/uL 4.6-6.2 [facility] Blood hemoglobin measurement (mass/volume)Ordered By: Dr. Vieira on 10-13-2022 Hemoglobin (Bld) [Mass/Vol] 15.9 g/dL 13.0-16.5 [facility] Blood platelet mean volumeOr dered By: Dr. Vieira on 10-13-2022 Platelet mean volume (Bld) [Entitic vol] 10.2 fL 6.2-12.0 [facility] Determination of erythrocyte mean corpuscular volume (MCV)Ordered By: Dr. Vieira on 10-13-2022 MCV (RBC) [Entitic vol] 96.1 fL 80-94 [facility] Hematocrit Auto (Bld) [Volum e fraction]Ordered By: Dr. Vieira on 10-13-2022 Hematocrit (Bld) [Volume fraction] 46.6 % 40-54 [facility] Laboratory - Chemistry and C hemistry - challengeOrdered By: Dr. Vieira on 10-13-2022 ALP [Catalytic activity/Vol] 69 U/L 45-117 [facility] ALT [Catalytic activity/Vol] 19 U/L 16-61 [facility] CO2 [Moles/Vol] 27.0 mmol/L 21.0-32.0 [facility] Globulin (S) [Mass/Vol] 3.5 g/dL 2.2-4.2 [facility] Magnesium [Mass/Vol] 2.1 mg/dL 1.6-2.6 [facility] Urea nitrogen/Creatinine [Mass ratio] 11.9 mg/mg 10-20 [facility] Laboratory - Hematology and Cell countsOrdered By: Dr. Vieira on 10-13-2022 Erythrocyte distribution width (RBC) [Entitic vol] 44.0 fL 35.1-43.9 [facility] Erythrocyte distribution width (RBC) [Ratio] 12.3 % 11.6-14.6 [facility] MCH (RBC) [Entitic mass] 32.8 pg 27.0-32.0 [facility] MCHC Auto (RBC) [Mass/Vol]Or dered By: Dr. Vieira on 10-13-2022 MCHC (RBC) [Mass/Vol] 34.1 g/dL 32-36 [facility] No Panel InformationOrdered By: Dr. Vieira on 10-13-2022 Estimated GFR (MDRD) Amer 134 mL/min >60 [facility] Comment on above: GFR Calc Estimated GFR (MDRD) Non-Af Amer 111 mL/min >60 [facility] Comment on above: Non- GFR Calc Thyroid Stimulating Hormone (TSH) 1.56 uIU/mL 0.358-3.74 [facility] Platelets bldOrdered By: Dr. Vieira on 10-13-2022 Platelets (Bld) [#/Vol] 249 10*3/uL 150-450 [facility] Serum or plasma albumin jody urement (mass/volume)Ordered By: Dr. Vieira on 10-13-2022 Albumin [Mass/Vol] 3.8 g/dL 3.2-5.0 [facility] Serum or plasma albumin/glob ulin mass ratioOrdered By: Dr. Vieira on 10-13-2022 Albumin/Globulin [Mass ratio] 1.1 {ratio} 0.9-2.4 [facility] Serum or plasma calcium jody urement (mass/volume)Ordered By: Dr. Vieira on 10-13-2022 Calcium [Mass/Vol] 8.9 mg/dL 8.5-10.1 [facility] Serum or plasma creatinine m easurement (mass/volume)Ordered By: Dr. Vieira on 10-13-2022 Creatinine [Mass/Vol] 0.75 mg/dL 0.70-1.30 [facility] Comment on above: The validity of the calculated GFR & GFRAA in patients over 70 years has not been determined. Clinical correlation is essential. Serum or plasma urea nitroge n measurement (mass/volume)Ordered By: Dr. Vieira on 10-13-2022 Urea nitrogen [Mass/Vol] 9 mg/dL 7-18 [facility] Thin prep Papanicolaou smear with manual screeningOrdered By: Dr. Vieira on 10-13-2022 Thin prep Papanicolaou smear with manual screening 15 U/L 15-37 [facility] Thin prep Papanicolaou smear with manual screening 7 5-15 [facility] MRI CERVICAL SPINE WO IVCONo n 01-02-2022 MRI CERVICAL SPINE WO IVCON * * *Final Report* * * DATE OF EXAM: Jan 02 2022 12:18PM [facility]VM [id number] - MRI CERVICAL SPINE WO IVCON / PROCEDURE REASON: Spinal stenosis of cervical region * * * * Physician Interpretation * * * * EXAMINATION: MRI CERVICAL SPINE WO IVCON CLINICAL HISTORY: Spinal stenosis of cervical region TECHNIQUE: Routine cervical spine MR protocol without gadolinium. MQ: [id number] COMPARISON: None. RESULT: Counting reference: Craniocervical junction. Anatomic Variants: None. Localizer images: No significant findings. Alignment: Alignment is anatomic. Craniocervical junction: Craniocervical junction is normal. Cord: The visualized cord is within normal limits of signal intensity and morphology. Bone marrow signal/fracture: No evidence of pathologic marrow infiltration. Chronic anterior compression fracture of the T1 vertebral body with approximately 30% anterior height loss. Cervical soft tissues: The paraspinal soft tissues are within normal limits. C2-C3: Canal and foramina are patent. C3-C4: Mild spinal canal stenosis secondary to disc osteophyte complex. Patent right foramen. Mild left foraminal stenosis due to endplate spurring and facet arthropathy. C4-C5: Mild to moderate spinal canal stenosis secondary to disc osteophyte complex. Mild bilateral foraminal stenosis due to uncovertebral and facet arthropathy. C5-C6: Spinal canal is patent. Mild bilateral foraminal stenosis due to uncovertebral and facet arthropathy. C6-C7: Spinal canal and right foramen are patent. Mild left foraminal stenosis due to uncovertebral and facet arthropathy. C7-T1: Canal and foramina are patent. IMPRESSION: Multilevel degenerative changes of the cervical spine, most pronounced at C4-5. Anatomic Variant: None. Assume 7 cervical vertebrae with counting from the craniocervical junction. Technical Developer: FAM Transcribe Date/Time: Jan 02 2022 1:32P Dictated by : CARLINE NG MD This examination was interpreted and the report reviewed and electronically signed by: CARLINE NG MD on Jan 02 2022 1:43PM EST [id number] CN Normal [facility] NURSING PROGon 01-02-2022 NURSING PROG HNO ID: [id number] Author: Josiane Goff RN Service: Radiology Author Type: Registered Nurse Type: Nursing Progress Note Filed: 01/02/2022 12:28 PM Note Text: MRI PROCEDURE NOTE PATIENT NAME: Olga Martin [...] SITE: N/A PERIPHERAL IV ACCESS: Not applicable ANXIOLYSIS/ANESTHESI A: Xanax 0.5 mg SL PATIENT TOLERATED PROCEDURE: Without incident. PATIENT DISCHARGED TO: Home/Self Care SIGNED BY: Josiane Goff RN January 02, 2022 12:26 PM SIGNATURE: Josiane Goff RN PATIENT NAME: Olga Martin DATE: January 02, 2022 TIME: 12:26 PM Normal [facility] No Panel Informationon 01-02 [facility] Absolute lymphocyte counton 11-07-2021 Lymphocytes Auto (Unsp spec) [#/Vol] 1.40 10*3/uL 0.83-4.51 [facility] Work Phone: Basophil percentageon 2021 Basophils/100 WBC (Bld) 0.9 % 0-1 [facility] Work Phone: [phone] Eosinophils/100 WBC (Bld) 1.3 % 0-5 [facility] Work Phone: [phone] Neutrophils (Bld) [#/Vol] 6.9 10*3/uL 2.0-7.7 [facility] Work Phone: [phone] Neutrophils/100 WBC (Bld) 73.6 % 47-70 [facility] Work Phone: WBC (Bld) [#/Vol] 9.4 10*3/uL 4.4-11.0 [facility] Work Phone: Blood erythrocytes count (nu mber/volume)on 11-07-2021 RBC (Bld) [#/Vol] 3.49 10*6/uL 4.6-6.2 [facility] Work Phone: Blood hemoglobin measurement (mass/volume)on 11-07-2021 Hemoglobin (Bld) [Mass/Vol] 10.2 g/dL 13.0-16.5 [facility] Work Phone: Blood lymphocytes/100 leukoc yteson 11-07-2021 Lymphocytes/100 WBC (Bld) 14.9 % 19-41 [facility] Work Phone: Blood monocytes/100 leukocyt eson 11-07-2021 Monocytes/100 WBC (Bld) 8.9 % 0-10 [facility] Work Phone: Blood platelet mean volumeon 11-07-2021 Platelet mean volume (Bld) [Entitic vol] 8.5 fL 6.2-12.0 [facility] Work Phone: Determination of erythrocyte mean corpuscular volume (MCV)on 11-07-2021 MCV (RBC) [Entitic vol] 89.1 fL 80-94 [facility] Work Phone: Hematocrit Auto (Bld) [Volum e fraction]on 11-07-2021 Hematocrit (Bld) [Volume fraction] 31.1 % 40-54 [facility] Work Phone: Laboratory - Hematology and Cell countson 11-07-2021 Erythrocyte distribution width (RBC) [Entitic vol] 49.7 fL 35.1-43.9 [facility] Work Phone: Erythrocyte distribution width (RBC) [Ratio] 15.5 % 11.6-14.6 [facility] Work Phone: Immature granulocytes/100 WBC (Bld) 0.400 % 0.0-0.9 [facility] Work Phone: Comment on above: IG% - Immature Granu locytes (promyelocytes, myelocytes and metamyelocytes) > 1% indicates that a LEFT SHIFT is Present. MCH (RBC) [Entitic mass] 29.2 pg 27.0-32.0 [facility] Work Phone: Nucleated RBC/100 WBC (Bld) [Ratio] 0 % 0-5 [facility] Work Phone: MCHC Auto (RBC) [Mass/Vol]on 11-07-2021 MCHC (RBC) [Mass/Vol] 32.8 g/dL 32-36 [facility] Work Phone: Platelets bldon 11-07-2021 Platelets (Bld) [#/Vol] 434 10*3/uL 150-450 [facility] Work Phone: Basophil percentageon 2021 Chloride [Moles/Vol] 104 mmol/L 98-107 [facility] Work Phone: Glucose [Mass/Vol] 117 mg/dL 74-106 [facility] Work Phone: Comment on above: Fasting Glucose resu lt from 100 to 125 mg/dL suggests IMPAIRED HOMEOSTASIS per A.D.A. criteria. Potassium [Moles/Vol] 4.0 mmol/L 3.5-5.1 [facility] Work Phone: Sodium [Moles/Vol] 137 mmol/L 136-145 [facility] Work Phone: Laboratory - Chemistry and C hemistry - challengeon 11-04-2021 CO2 [Moles/Vol] 28.0 mmol/L 21.0-32.0 [facility] Work Phone: Urea nitrogen/Creatinine [Mass ratio] 32.1 mg/mg 10-20 [facility] Work Phone: No Panel Informationon 11-04 Estimated Creatinine Clearance Calc 172.37 ml/min [facility] Work Phone: Estimated GFR (MDRD) Amer 190 mL/min >60 [facility] Work Phone: Comment on above: GFR Calc Estimated GFR (MDRD) Non-Af Amer 157 mL/min >60 [facility] Work Phone: Comment on above: Non- GFR Calc Serum or plasma calcium jody urement (mass/volume)on 11-04-2021 Calcium [Mass/Vol] 8.3 mg/dL 8.5-10.1 [facility] Work Phone: Serum or plasma creatinine m easurement (mass/volume)on 11-04-2021 Creatinine [Mass/Vol] 0.56 mg/dL 0.70-1.30 [facility] Work Phone: Comment on above: The validity of the calculated GFR & GFRAA in patients over 70 years has not been determined. Clinical correlation is essential. Serum or plasma urea nitroge n measurement (mass/volume)on 11-04-2021 Urea nitrogen [Mass/Vol] 18 mg/dL 7-18 [facility] Work Phone: Thin prep Papanicolaou smear with manual screeningon 11-04-2021 Thin prep Papanicolaou smear with manual screening 5 5-15 [facility] Work Phone: Basophil percentageon 2021 Bilirubin [Mass/Vol] 0.30 mg/dL 0.20-1.00 [facility] Work Phone: Comment on above: For patients on eltr ombopag therapy, use of Dimension [place] TBIL is not recommended. Protein [Mass/Vol] 6.9 g/dL 6.4-8.2 [facility] Work Phone: Basophil percentage 0 SEEN /hpf 0-5 [facility] Work Phone: Bilirubin Test strip Ql (U)o n 10-26-2021 Bilirubin Ql (U) Negative Negative [facility] Work Phone: Culture, urineon 10-26-2021 Bacteria identified Cx Nom (U) Culture exhibits no growth. [facility] Work Phone: Ketones Test strip Ql (U)on 10-26-2021 Ketones Ql (U) Negative Negative [facility] Work Phone: Laboratory - Chemistry and C hemistry - challengeon 10-26-2021 ALP [Catalytic activity/Vol] 117 U/L 45-117 [facility] Work Phone: ALT [Catalytic activity/Vol] 34 U/L 16-61 [facility] Work Phone: Globulin (S) [Mass/Vol] 4.9 g/dL 2.2-4.2 [facility] Work Phone: Mucus LM Ql (Urine sed)on Mucus Ql (Urine sed) 0 SEEN /[facility] Nitrite Test strip Ql (U)on 10-26-2021 Nitrite Ql (U) Negative Negative [facility] Work Phone: Protein Test strip Ql (U)on 10-26-2021 Protein Ql (U) 15 mg/dl Negative [facility] Work Phone: Serum or plasma albumin jody urement (mass/volume)on 10-26-2021 Albumin [Mass/Vol] 2.0 g/dL 3.2-5.0 [facility] Work Phone: Serum or plasma albumin/glob ulin mass ratioon 10-26-2021 Albumin/Globulin [Mass ratio] 0.4 {ratio} 0.9-2.4 [facility] Work Phone: Squamous epithelial cells de tection in urine sediment by light microscopyon 10-26-2021 Epithelial cells.squamous LM Ql (Urine sed) 0 SEEN /hpf 0-5 [facility] Work Phone: Thin prep Papanicolaou smear with manual screeningon 10-26-2021 Thin prep Papanicolaou smear with manual screening 27 U/L 15-37 [facility] Work Phone: Urine blood detectionon 10-02 RBC Ql (U) 10 /ul Negative [facility] Work Phone: RBC Ql (U) 0 SEEN /hpf 0-5 [facility] Work Phone: Urine clarityon 10-26-2021 Clarity (U) Clear Clear [facility] Work Phone: Urine color determinationon 10-26-2021 Color (U) Yellow Yellow [facility] Work Phone: Urine glucose detectionon Glucose Ql (U) Normal mg/dl Normal [facility] Work Phone: Urine leukocyte esterase det ection by dipstickon 10-26-2021 Leukocyte esterase Test strip Ql (U) Negative Negative [facility] Work Phone: Urine pHon 10-26-2021 pH (U) 8.0 [pH] 5.0 - 8.0 [facility] Work Phone: Urine sediment bacteria coun t by microscopy (number/high power field)on 10-26-2021 Bacteria LM.HPF (Urine sed) [#/Area] 0 /[HPF] None Seen [facility] Work Phone: Urine specific gravity measu rementon 10-26-2021 Specific gravity (U) [Rel density] 1.010 1.002-1.030 [facility] Work Phone: Urobilinogen Auto test strip Ql (U)on 10-26-2021 Urobilinogen Ql (U) Normal mg/dl Normal [facility] Work Phone: Absolute lymphocyte counton 10-23-2021 Lymphocytes Auto (Unsp spec) [#/Vol] 1.13 10*3/uL 0.83-4.51 [facility] Work Phone: Bacteria identified Cx Nom ( Wound)on 10-23-2021 Wound Culture Presumptive C albicans [facility] Work Phone: Wound Culture Staphylococcus epidermidis [facility] Work Phone: Wound Culture Staphylococcus haemolyticus [facility] Work Phone: Wound Culture Escherichia coli [facility] Work Phone: Basophil percentageon 2021 Basophil percentage 3.5 mg/dL 2.5-4.9 [facility] Work Phone: Basophils/100 WBC (Bld) 0.5 % 0-1 [facility] Work Phone: [phone] Bilirubin [Mass/Vol] 0.30 mg/dL 0.20-1.00 [facility] Work Phone: [phone] Comment on above: For patients on eltr ombopag therapy, use of Dimension [place] TBIL is not recommended. Chloride [Moles/Vol] 101 mmol/L 98-107 [facility] Work Phone: [phone] Eosinophils/100 WBC (Bld) 1.0 % 0-5 [facility] Work Phone: Glucose [Mass/Vol] 111 mg/dL 74-106 [facility] Work Phone: Comment on above: Fasting Glucose resu lt from 100 to 125 mg/dL suggests IMPAIRED HOMEOSTASIS per A.D.A. criteria. Neutrophils (Bld) [#/Vol] 5.8 10*3/uL 2.0-7.7 [facility] Work Phone: Neutrophils/100 WBC (Bld) 71.6 % 47-70 [facility] Work Phone: Potassium [Moles/Vol] 3.9 mmol/L 3.5-5.1 [facility] Work Phone: Protein [Mass/Vol] 6.3 g/dL 6.4-8.2 [facility] Work Phone: Sodium [Moles/Vol] 136 mmol/L 136-145 [facility] Work Phone: WBC (Bld) [#/Vol] 8.1 10*3/uL 4.4-11.0 [facility] Work Phone: Blood erythrocytes count (nu mber/volume)on 10-23-2021 RBC (Bld) [#/Vol] 3.00 10*6/uL 4.6-6.2 [facility] Work Phone: Blood hemoglobin measurement (mass/volume)on 10-23-2021 Hemoglobin (Bld) [Mass/Vol] 9.2 g/dL 13.0-16.5 [facility] Work Phone: Blood lymphocytes/100 leukoc yteson 10-23-2021 Lymphocytes/100 WBC (Bld) 13.9 % 19-41 [facility] Work Phone: Blood monocytes/100 leukocyt eson 10-23-2021 Monocytes/100 WBC (Bld) 12.6 % 0-10 [facility] Work Phone: Blood platelet mean volumeon 10-23-2021 Platelet mean volume (Bld) [Entitic vol] 9.4 fL 6.2-12.0 [facility] Work Phone: Determination of erythrocyte mean corpuscular volume (MCV)on 10-23-2021 MCV (RBC) [Entitic vol] 92.0 fL 80-94 [facility] Work Phone: Gram stain for investigation of transfusion reactionon 10-23-2021 Microscopic observation Gram stain Nom (Unsp spec) [facility] Work Phone: Hematocrit Auto (Bld) [Volum e fraction]on 10-23-2021 Hematocrit (Bld) [Volume fraction] 27.6 % 40-54 [facility] Work Phone: Laboratory - Chemistry and C hemistry - challengeon 10-23-2021 ALP [Catalytic activity/Vol] 120 U/L 45-117 [facility] Work Phone: ALT [Catalytic activity/Vol] 31 U/L 16-61 [facility] Work Phone: CO2 [Moles/Vol] 32.0 mmol/L 21.0-32.0 [facility] Work Phone: Globulin (S) [Mass/Vol] 4.5 g/dL 2.2-4.2 [facility] Work Phone: Magnesium [Mass/Vol] 2.4 mg/dL 1.6-2.6 [facility] Work Phone: Urea nitrogen/Creatinine [Mass ratio] 21.2 mg/mg 10-20 [facility] Work Phone: Laboratory - Hematology and Cell countson 10-23-2021 Erythrocyte distribution width (RBC) [Entitic vol] 49.1 fL 35.1-43.9 [facility] Work Phone: Erythrocyte distribution width (RBC) [Ratio] 14.6 % 11.6-14.6 [facility] Work Phone: Immature granulocytes/100 WBC (Bld) 0.400 % 0.0-0.9 [facility] Work Phone: Comment on above: IG% - Immature Granu locytes (promyelocytes, myelocytes and metamyelocytes) > 1% indicates that a LEFT SHIFT is Present. MCH (RBC) [Entitic mass] 30.7 pg 27.0-32.0 [facility] Work Phone: Nucleated RBC/100 WBC (Bld) [Ratio] 0 % 0-5 [facility] Work Phone: MCHC Auto (RBC) [Mass/Vol]on 10-23-2021 MCHC (RBC) [Mass/Vol] 33.3 g/dL 32-36 [facility] Work Phone: No Panel Informationon 10-23 Estimated Creatinine Clearance Calc 180.83 ml/min [facility] Work Phone: Estimated GFR (MDRD) Amer 208 mL/min >60 [facility] Work Phone: Comment on above: GFR Calc Estimated GFR (MDRD) Non-Af Amer 172 mL/min >60 [facility] Work Phone: Comment on above: Non- GFR Calc Platelets bldon 10-23-2021 Platelets (Bld) [#/Vol] 371 10*3/uL 150-450 [facility] Work Phone: Serum or plasma albumin jody urement (mass/volume)on 10-23-2021 Albumin [Mass/Vol] 1.8 g/dL 3.2-5.0 [facility] Work Phone: Serum or plasma albumin/glob ulin mass ratioon 10-23-2021 Albumin/Globulin [Mass ratio] 0.4 {ratio} 0.9-2.4 [facility] Work Phone: Serum or plasma calcium jody urement (mass/volume)on 10-23-2021 Calcium [Mass/Vol] 8.0 mg/dL 8.5-10.1 [facility] Work Phone: Serum or plasma creatinine m easurement (mass/volume)on 10-23-2021 Creatinine [Mass/Vol] 0.52 mg/dL 0.70-1.30 [facility] Work Phone: Comment on above: The validity of the calculated GFR & GFRAA in patients over 70 years has not been determined. Clinical correlation is essential. Serum or plasma urea nitroge n measurement (mass/volume)on 10-23-2021 Urea nitrogen [Mass/Vol] 11 mg/dL 7-18 [facility] Work Phone: Thin prep Papanicolaou smear with manual screeningon 10-23-2021 Thin prep Papanicolaou smear with manual screening 23 U/L 15-37 [facility] Work Phone: Thin prep Papanicolaou smear with manual screening 3 5-15 [facility] Work Phone: Glucose Glucometer (BldC) [M ass/Vol]on 10-19-2021 Glucose [Mass/Vol] 130 mg/dL 74-106 [facility] Work Phone: Comment on above: MANAGEMENT OF PATIEN T CARE PER NURSING PROTOCOL Vancomycin troughon 10-20-19 Vancomycin trough [Mass/Vol] 19.4 ug/mL 5.0-15.0 [facility] Work Phone: Comment on above: VANCOMYCIN STANDARED DRUG THERAPY TROUGH LEVEL: 5.0 - 15.0 mg/L VANCOMYCIN HIGH INTENSITY THERAPY TROUGH LEVEL: 15.0 - 20.0 mg/L High Intensity therapy recommended for serious lifethreatening infections include:- Qvooyifpog-Xfhzxbmszwur-Pwrtpibjx (Ventilator/Healtcare Associated)-Sepsis PLEASE CONTACT PHARMACY SERVICES (#[id number]) FOR INTERPRETATIONOF RESULTS. Serum or plasma vancomycin m easurement (mass/volume)on 10-18-2021 Vancomycin [Mass/Vol] 13.1 ug/mL 0.0-15.0 [facility] Work Phone: Comment on above: VANCOMYCIN STANDARD DRUG THERAPY: CRITICAL VALUE IS > 15.0 mg/L VANCOMYCIN HIGH INTENSITY THERAPY: CRITICAL VALUE IS > 20.0 mg/L PLEASE CONTACT PHARMACY SERVICES (#[id number]) FOR INTERPRETATIONOF RESULTS. THIS RESULT DOES NOT REPRESENT A PEAK OR TROUGHLEVEL FOR THIS DRUG. Basophil percentageon 2021 Basophil percentage 0 SEEN /hpf 0-5 [facility] Work Phone: Bilirubin Test strip Ql (U)o n 10-15-2021 Bilirubin Ql (U) Negative Negative [facility] Work Phone: Ketones Test strip Ql (U)on 10-15-2021 Ketones Ql (U) Negative Negative [facility] Work Phone: Mucus LM Ql (Urine sed)on Mucus Ql (Urine sed) 0 SEEN /hpf [facility] Work Phone: Nitrite Test strip Ql (U)on 10-15-2021 Nitrite Ql (U) Negative Negative [facility] Work Phone: Protein Test strip Ql (U)on 10-15-2021 Protein Ql (U) Negative Negative [facility] Work Phone: Squamous epithelial cells de tection in urine sediment by light microscopyon 10-15-2021 Epithelial cells.squamous LM Ql (Urine sed) 0 SEEN /hpf 0-5 [facility] Work Phone: Urine blood detectionon 10-01 RBC Ql (U) 10 /ul Negative [facility] Work Phone: RBC Ql (U) 0 SEEN /hpf 0-5 [facility] Work Phone: Urine clarityon 10-15-2021 Clarity (U) Clear Clear [facility] Work Phone: Urine color determinationon 10-15-2021 Color (U) Yellow Yellow [facility] Work Phone: Urine glucose detectionon Glucose Ql (U) Normal mg/dl Normal [facility] Work Phone: Urine leukocyte esterase det ection by dipstickon 10-15-2021 Leukocyte esterase Test strip Ql (U) Negative Negative [facility] Work Phone: Urine pHon 10-15-2021 pH (U) 5.0 [pH] 5.0 - 8.0 [facility] Work Phone: Urine sediment bacteria coun t by microscopy (number/high power field)on 10-15-2021 Bacteria LM.HPF (Urine sed) [#/Area] 0 /[HPF] None Seen [facility] Work Phone: Urine specific gravity measu rementon 10-15-2021 Specific gravity (U) [Rel density] 1.015 1.002-1.030 [facility] Work Phone: Urobilinogen Auto test strip Ql (U)on 10-15-2021 Urobilinogen Ql (U) Normal mg/dl Normal [facility] Work Phone: Basophil percentageon 2021 Triglyceride [Mass/Vol] 121 mg/dL <199 [address] [facility] Work Phone: Comment on above: The drugs N-Acetylcy steine and Metamizole may falsely depress this assay.Serum Triglycerides Reference Interval Normal <150 mg/dL Borderline high 150 - 199 mg/dL High 200 - 499 mg/dL Very High > or = 500 mg/dL Serum or plasma transthyreti n measurement (mass/volume)on 10-09-2021 Prealbumin [Mass/Vol] 7.9 mg/dL 20.0-40.0 [facility] Work Phone: No Panel Informationon 10-07 Troponin I High Sensitivity 11 pg/mL 3.0-78.0 [facility] Work Phone: Comment on above: Please Note: New Susy t Units and Gender Specific Reference Ranges. For more information see Policy Stat Procedure [place] High Sensitivity Troponin (TNIH) and attachments. Blood manual differential co mment interpretation (narrative result)on 10-03-2021 Manual differential comment [place] (Bld) [Interp] SCANNED [facility] Work Phone: Review by pathologiston Pathologist review [place] (Unsp spec) [Interp] Reviewed [facility] Work Phone: Comment on above: Previous reported re sult: Taisha dyson Edited by: RGOOD on 10/04/21:0917Neutrophilic leukocytosis.Thrombocytosis.Clinical correlation necessary.Burt Sierra M.D. 10/04/21 AMENDED REPORT 10/04/21 0917 PATH REV previously reported as: Taisha dyson Laboratory - Coagulationon 0 10-02-2021 aPTT Coag (Bld) [Time] 33.5 s 24.1-36.2 [facility] Work Phone: Direct bilirubinon 2 Bilirubin.direct [Mass/Vol] 0.18 mg/dL 0.00-0.30 [facility] Work Phone: Laboratory - Chemistry and C hemistry - challengeon 09-20-2021 Lipase [Catalytic activity/Vol] 73 U/L 73-393 [facility] Work Phone: XR Shoulder - right 3 Viewso n 06-12-2021 IMPRESSION: Benign reactive changes, otherwise no significant bone or articular disease identified. Technical Developer: FAM Transcribe Date/Time: Jun 12 2021 10:51A Dictated by : ALYSA AKBRA MD This examination was interpreted and the report reviewed and electronically signed by: ALYSA AKBAR MD on Jun 12 2021 11:02AM [facility] DIVISION OF RADIOLOGY * * *Final Report* * * DATE OF EXAM: Jun 12 2021 10:42AM WOX 5253 - XR SHLDR >/=3V AP/SHANA AP/OTHR RT / PROCEDURE REASON: multiple diagnoses * * * * Physician Interpretation * * * * HISTORY: pain for couple of years in right ac joint area no inj. Chronic right shoulder pain Chronic right shoulder pain . TECHNIQUE: XR SHLDR >/=3V AP/SHANA AP/OTHR RT Laterality: RIGHT Number of different views (projections): 3 COMPARISON: None RESULT: Normal alignment. No discrete fracture identified. Benign chronic bony productive changes of the acromial and. Small benign appearing calcification in the surgical neck measuring about 1.6 cm in maximum dimension. There is no joint space narrowing present. The subacromial space is maintained. Thickening of the apical pleura on the right stable since chest examination of 2010. DIVISION OF RADIOLOGY Provider, [facility] - 06/12/2021 * * *Final Report* * * DATE OF EXAM: Jun 12 2021 10:42AM WOX 5253 - XR SHLDR >/=3V AP/SHANA AP/OTHR RT / PROCEDURE REASON: multiple diagnoses * * * * Physician Interpretation * * * * HISTORY: pain for couple of years in right ac joint area no inj. Chronic right shoulder pain Chronic right shoulder pain . TECHNIQUE: XR SHLDR >/=3V AP/SHANA AP/OTHR RT Laterality: RIGHT Number of different views (projections): 3 COMPARISON: None RESULT: Normal alignment. No discrete fracture identified. Benign chronic bony productive changes of the acromial and. Small benign appearing calcification in the surgical neck measuring about 1.6 cm in maximum dimension. There is no joint space narrowing present. The subacromial space is maintained. Thickening of the apical pleura on the right stable since chest examination of 2010. IMPRESSION IMPRESSION: Benign reactive changes, otherwise no significant bone or articular disease identified. Technical Developer: PSCB Transcribe Date/Time: Jun 12 2021 10:51A Dictated by : ALYSA AKBAR MD This examination was interpreted and the report reviewed and electronically signed by: ALYSA AKBAR MD on Jun 12 2021 11:02AM [facility] Radiology Study observation (narrative) [place] XR Shoulder - right 3 ViewsO rdered By: [facility] Provider on 06-12-2021 [facility] Bacteria identified Cx Nom ( Wound) Wound Culture Presumptive C albicans [facility] Work Phone: Wound Culture Staphylococcus epidermidis [facility] Work Phone: Wound Culture Staphylococcus haemolyticus [facility] Work Phone: Wound Culture Escherichia coli [facility] Work Phone: Culture, urine Bacteria identified Cx Nom (U) Culture exhibits no growth. [facility] Work Phone: Gram stain for investigation of transfusion reaction Microscopic observation Gram stain Nom (Unsp spec) [facility] Work Phone: Vital Signs Date Time Vital Sign Value Performing Clinician Facility 04-14-2025 21:00-0400 Body temperature 98 [degF] Dr. Zoraida Marino MD Work Phone: [facility] 04-14-2025 21:00-0400 Diastolic blood pressure 89 mm[Hg] Dr. Zoraida Marino MD Work Phone: [facility] 04-14-2025 21:00-0400 Heart rate 82 /min Dr. Zoraida Marino MD Work Phone: [facility] 04-14-2025 21:00-0400 Respiratory rate 18 /min Dr. Zoraida Marino MD Work Phone: [facility] 04-14-2025 21:00-0400 SaO2% (BldA) [Mass fraction] 100 % Dr. Zoraida Marino MD Work Phone: [facility] 04-14-2025 21:00-0400 Systolic blood pressure 146 mm[Hg] Dr. Zoraida Marino MD Work Phone: [facility] 04-14-2025 19:00-0400 Body mass index (BMI) [Ratio] 27.2 kg/m2 Dr. Zoraida Marino MD Work Phone: [facility] 04-14-2025 19:00-0400 Body weight 101.[address] Zoraida Marino MD Work Phone: [facility] 04-14-2025 17:34-0400 Body height 193.[address] Zoraida Marino MD Work Phone: [facility] 10-24-2024 08:06-0400 Body height 193.[address] Zoraida Marino MD Work Phone: [facility] 10-24-2024 08:06-0400 Body mass index (BMI) [Ratio] 27.1 kg/m2 Dr. Zoraida Marino MD Work Phone: [facility] 10-24-2024 08:06-0400 Body temperature 97.3 [degF] Dr. Zoraida Marino MD Work Phone: [facility] 10-24-2024 08:06-0400 Body weight 101.[address] Zoraida Marino MD Work Phone: [facility] 10-24-2024 08:06-0400 Diastolic blood pressure 82 mm[Hg] Dr. Zoraida Marino MD Work Phone: [facility] 10-24-2024 08:06-0400 Heart rate 106 /min Dr. Zoraida Marino MD Work Phone: [facility] 10-24-2024 08:06-0400 Respiratory rate 16 /min Dr. Zoraida Marino MD Work Phone: [facility] 10-24-2024 08:06-0400 SaO2% (BldA) [Mass fraction] 96 % Dr. Zoraida Marino MD Work Phone: [facility] 10-24-2024 08:06-0400 Systolic blood pressure 132 mm[Hg] Dr. Zoraida Marino MD Work Phone: [facility] 09-30-2024 12:42-0500 Body temperature 97.8 [degF] Dr. Zoraida Marino MD Work Phone: [facility] 09-30-2024 12:42-0500 Diastolic blood pressure 87 mm[Hg] Dr. Zoraida Marino MD Work Phone: [facility] 09-30-2024 12:42-0500 Heart rate 87 /min Dr. Zoraida Marino MD Work Phone: [facility] 09-30-2024 12:42-0500 Respiratory rate 18 /min Dr. Zoraida Marino MD Work Phone: [facility] 09-30-2024 12:42-0500 SaO2% (BldA) [Mass fraction] 94 % Dr. Zoraida Marino MD Work Phone: [facility] 09-30-2024 12:42-0500 Systolic blood pressure 156 mm[Hg] Dr. Zoraida Marino MD Work Phone: [facility] 09-29-2024 09:46-0500 Inhaled oxygen flow rate 1.5 L/min Dr. Zoraida Marino MD Work Phone: [facility] 09-29-2024 05:07-0500 Body mass index (BMI) [Ratio] 27.2 kg/m2 Dr. Zoraida Marino MD Work Phone: [facility] 09-29-2024 05:07-0500 Body weight 101.[address] Zoraida Marino MD Work Phone: [facility] 09-28-2024 08:00-0500 Inhaled oxygen concentration 30 % Dr. Zoraida Marino MD Work Phone: [facility] 08-16-2024 14:12-0500 Body mass index (BMI) [Ratio] 27.1 kg/m2 Dr. Zoraida Marino MD Work Phone: [facility] 08-16-2024 14:12-0500 Body temperature 98.4 [degF] Dr. Zoraida Marino MD Work Phone: [facility] 08-16-2024 14:12-0500 Body weight 101.[address] Zoraida Marino MD Work Phone: [facility] 08-16-2024 14:12-0500 Diastolic blood pressure 70 mm[Hg] Dr. Zoraida Marino MD Work Phone: [facility] 08-16-2024 14:12-0500 Heart rate 78 /min Dr. Zoraida Marino MD Work Phone: [facility] 08-16-2024 14:12-0500 Respiratory rate 16 /min Dr. Zoraida Marino MD Work Phone: [facility] 08-16-2024 14:12-0500 SaO2% (BldA) [Mass fraction] 95 % Dr. Zoraida Marino MD Work Phone: [facility] 08-16-2024 14:12-0500 Systolic blood pressure 136 mm[Hg] Dr. Zoraida Marino MD Work Phone: [facility] 07-31-2024 13:05-0500 Diastolic blood pressure 85 mm[Hg] Dr. Zoraida Marino MD Work Phone: [facility] 07-31-2024 13:05-0500 Heart rate 69 /min Dr. Zoraida Marino MD Work Phone: [facility] 07-31-2024 13:05-0500 Respiratory rate 20 /min Dr. Zoraida Marino MD Work Phone: [facility] 07-31-2024 13:05-0500 SaO2% (BldA) [Mass fraction] 93 % Dr. Zoraida Marino MD Work Phone: [facility] 07-31-2024 13:05-0500 Systolic blood pressure 130 mm[Hg] Dr. Zoraida Marino MD Work Phone: [facility] 07-31-2024 11:41-0500 Body temperature 98.5 [degF] Dr. Zroaida Marino MD Work Phone: [facility] 07-31-2024 10:19-0500 Body mass index (BMI) [Ratio] 27.6 kg/m2 Dr. Zoraida Marino MD Work Phone: [facility] 07-31-2024 10:19-0500 Body weight 102.[address] Zoraida Marino MD Work Phone: [facility] 06-01-2024 14:47-0400 Body height 193 cm Evan Walden MD Work Phone: [facility] 06-01-2024 14:47-0400 Body mass index (BMI) [Ratio] 27.27 kg/m2 Evan Walden MD Work Phone: [facility] 06-01-2024 14:47-0400 Body weight 101.61 kg Evan Walden MD Work Phone: [facility] 06-01-2024 14:47-0400 Heart rate 88 /min Evan Walden MD Work Phone: [facility] 06-01-2024 14:47-0400 SaO2% (BldA) [Mass fraction] 97 % Evan Walden MD Work Phone: [facility] 08-31-2023 07:12-0500 Body height 193.[address] Zoraida Marino Work Phone: [facility] 08-31-2023 07:12-0500 Body mass index (BMI) [Ratio] 28.5 kg/m2 Dr. Zoraida Marino Work Phone: [facility] 08-31-2023 07:12-0500 Body temperature 98.4 [degF] Dr. Zoraida Marino Work Phone: [facility] 08-31-2023 07:12-0500 Body weight 106.[address] Zoraida Marino Work Phone: [facility] 08-31-2023 07:12-0500 Diastolic blood pressure 108 mm[Hg] Dr. Zoraida Marino Work Phone: [facility] 08-31-2023 07:12-0500 Heart rate 82 /min Dr. Zoraida Marino Work Phone: [facility] 08-31-2023 07:12-0500 Respiratory rate 18 /min Dr. Zoraida Marino Work Phone: [facility] 08-31-2023 07:12-0500 SaO2% (BldA) [Mass fraction] 96 % Dr. Zoraida Marino Work Phone: [facility] 08-31-2023 07:12-0500 Systolic blood pressure 182 mm[Hg] Dr. Zoraida Marino Work Phone: [facility] 08-26-2023 10:47-0500 Body temperature 98.6 [degF] Dr. Zoraida Marino Work Phone: [facility] 08-26-2023 10:47-0500 Diastolic blood pressure 80 mm[Hg] Dr. Zoraida Marino Work Phone: [facility] 08-26-2023 10:47-0500 Heart rate 88 /min Dr. Zoraida Marino Work Phone: [facility] 08-26-2023 10:47-0500 Respiratory rate 16 /min Dr. Zoraida Marino Work Phone: [facility] 08-26-2023 10:47-0500 SaO2% (BldA) [Mass fraction] 98 % Dr. Zoraida Marino Work Phone: [facility] 08-26-2023 10:47-0500 Systolic blood pressure 122 mm[Hg] Dr. Zoraida Marino Work Phone: [facility] 08-17-2023 08:52-0500 Diastolic blood pressure 98 mm[Hg] Dr. Zoraida Marino Work Phone: [facility] 08-17-2023 08:52-0500 Systolic blood pressure 152 mm[Hg] Dr. Zoraida Marino Work Phone: [facility] 08-17-2023 08:01-0500 Body height 193.[address] Zoraida Marino Work Phone: [facility] 08-17-2023 08:01-0500 Body mass index (BMI) [Ratio] 29.5 kg/m2 Dr. Zoraida Marino Work Phone: [facility] 08-17-2023 08:01-0500 Body temperature 97.6 [degF] Dr. Zoraida Marino Work Phone: [facility] 08-17-2023 08:01-0500 Body weight 110.[address] Zoraida Marino Work Phone: [facility] 08-17-2023 08:01-0500 Heart rate 85 /min Dr. Zoraida Marino Work Phone: [facility] 08-17-2023 08:01-0500 Respiratory rate 16 /min Dr. Zoraida Marino Work Phone: [facility] 08-17-2023 08:01-0500 SaO2% (BldA) [Mass fraction] 98 % Dr. Zoraida Marino Work Phone: [facility] 07-02-2023 11:46-0500 Body height 193.[address] Zoraida Marino Work Phone: [facility] 07-02-2023 11:46-0500 Body temperature 98.4 [degF] Dr. Zoraida Marino Work Phone: [facility] 07-02-2023 11:46-0500 Diastolic blood pressure 98 mm[Hg] Dr. Zoraida Marino Work Phone: [facility] 07-02-2023 11:46-0500 Heart rate 85 /min Dr. Zoraida Marino Work Phone: [facility] 07-02-2023 11:46-0500 Respiratory rate 17 /min Dr. Zoraida Marino Work Phone: [facility] 07-02-2023 11:46-0500 SaO2% (BldA) [Mass fraction] 95 % Dr. Zoraida Marino Work Phone: [facility] 07-02-2023 11:46-0500 Systolic blood pressure 154 mm[Hg] Dr. Zoraida Marino Work Phone: [facility] 05-07-2023 07:48-0400 Body mass index (BMI) [Ratio] 28.5 kg/m2 Dr. Zoraida Marino Work Phone: [facility] 05-07-2023 07:48-0400 Body temperature 98.6 [degF] Dr. Zoraida Marino Work Phone: [facility] 05-07-2023 07:48-0400 Body weight 106.[address] Zoraida Marino Work Phone: [facility] 05-07-2023 07:48-0400 Diastolic blood pressure 82 mm[Hg] Dr. Zoraida Marino Work Phone: [facility] 05-07-2023 07:48-0400 Heart rate 75 /min Dr. Zoraida Marino Work Phone: [facility] 05-07-2023 07:48-0400 Respiratory rate 17 /min Dr. Zoraida Marino Work Phone: [facility] 05-07-2023 07:48-0400 SaO2% (BldA) [Mass fraction] 96 % Dr. Zoraida Marino Work Phone: [facility] 05-07-2023 07:48-0400 Systolic blood pressure 142 mm[Hg] Dr. Zoraida Marino Work Phone: [facility] 10-09-2022 08:20-0500 Body height 193.[address] Zoraida Marino Work Phone: [facility] 10-09-2022 08:20-0500 Body mass index (BMI) [Ratio] 28.1 kg/m2 Dr. Zoraida Marino Work Phone: [facility] 10-09-2022 08:20-0500 Body temperature 98.7 [degF] Dr. Zoraida Marino Work Phone: [facility] 10-09-2022 08:20-0500 Body weight 104.[address] Zoraida Marino Work Phone: [facility] 10-09-2022 08:20-0500 Diastolic blood pressure 90 mm[Hg] Dr. Zoraida Marino Work Phone: [facility] 10-09-2022 08:20-0500 Heart rate 98 /min Dr. Zoraida Marino Work Phone: [facility] 10-09-2022 08:20-0500 Respiratory rate 17 /min Dr. Zoraida Marino Work Phone: [facility] 10-09-2022 08:20-0500 SaO2% (BldA) [Mass fraction] 97 % Dr. Zoraida Marino Work Phone: [facility] 10-09-2022 08:20-0500 Systolic blood pressure 140 mm[Hg] Dr. Zoraida Marino Work Phone: [facility] 08-14-2022 11:03-0500 Body temperature 97.1 [degF] Dr. Zoraida Marino Work Phone: [facility] 08-14-2022 11:03-0500 Diastolic blood pressure 97 mm[Hg] Dr. Zoraida Marino Work Phone: [facility] 08-14-2022 11:03-0500 Heart rate 77 /min Dr. Zoraida Marino Work Phone: [facility] 08-14-2022 11:03-0500 Respiratory rate 16 /min Dr. Zoraida Marino Work Phone: [facility] 08-14-2022 11:03-0500 SaO2% (BldA) [Mass fraction] 98 % Dr. Zoraida Marino Work Phone: [facility] 08-14-2022 11:03-0500 Systolic blood pressure 142 mm[Hg] Dr. Zoraida Marino Work Phone: [facility] 08-14-2022 08:30-0500 Body mass index (BMI) [Ratio] 27 kg/m2 Dr. Zoraida Marino Work Phone: [facility] 08-14-2022 08:30-0500 Body weight 100.[address] Zoraida Marino Work Phone: [facility] 07-21-2022 09:38-0500 Body mass index (BMI) [Ratio] 28.4 kg/m2 Dr. Zoraida Marino Work Phone: [facility] 07-21-2022 09:38-0500 Body temperature 99.3 [degF] Dr. Zoraida Marino Work Phone: [facility] 07-21-2022 09:38-0500 Body weight 106.[address] Zoraida Marino Work Phone: [facility] 07-21-2022 09:38-0500 Diastolic blood pressure 78 mm[Hg] Dr. Zoraida Marino Work Phone: [facility] 07-21-2022 09:38-0500 Heart rate 100 /min Dr. Zoraida Marino Work Phone: [facility] 07-21-2022 09:38-0500 Respiratory rate 16 /min Dr. Zoraida Marino Work Phone: [facility] 07-21-2022 09:38-0500 SaO2% (BldA) [Mass fraction] 99 % Dr. Zoraida Marino Work Phone: [facility] 07-21-2022 09:38-0500 Systolic blood pressure 160 mm[Hg] Dr. Zoraida Marino Work Phone: [facility] 01-23-2022 11:36-0400 Diastolic blood pressure 88 mm[Hg] Dr. Linda Dominguez Work Phone: [facility] Work Phone: 01-23-2022 11:36-0400 Systolic blood pressure 146 mm[Hg] Dr. Linda Dominguez Work Phone: [facility] Work Phone: 01-23-2022 10:07-0400 Body height 193.[address] Linda Dominguez Work Phone: [facility] Work Phone: 01-23-2022 10:07-0400 Body mass index (BMI) [Ratio] 29 kg/m2 Dr. Linda Dominguez Work Phone: [facility] Work Phone: 01-23-2022 10:07-0400 Body temperature 98.7 [degF] Dr. Linda Dominguez Work Phone: [facility] Work Phone: 01-23-2022 10:07-0400 Body weight 107.[address] Linda Dominguez Work Phone: [facility] Work Phone: 01-23-2022 10:07-0400 Heart rate 72 /min Dr. Linda Dominguez Work Phone: [facility] Work Phone: 01-23-2022 10:07-0400 Respiratory rate 18 /min Dr. Linda Dominguez Work Phone: [facility] Work Phone: 01-23-2022 10:07-0400 SaO2% (BldA) [Mass fraction] 96 % Dr. Linda Dominguez Work Phone: [facility] Work Phone: 11-22-2021 10:33-0400 Body temperature 97.9 [degF] Dr. Linda Dominguez Work Phone: [facility] Work Phone: 11-13-2021 10:17-0400 Diastolic blood pressure 91 mm[Hg] Dr. Linda Dominguez Work Phone: [facility] Work Phone: 11-13-2021 10:17-0400 Heart rate 101 /min Dr. Linda Dominguez Work Phone: [facility] Work Phone: 11-13-2021 10:17-0400 Respiratory rate 18 /min Dr. Linda Dominguez Work Phone: [facility] Work Phone: 11-13-2021 10:17-0400 SaO2% (BldA) [Mass fraction] 96 % Dr. Linda Dominguez Work Phone: [facility] Work Phone: 11-13-2021 10:17-0400 Systolic blood pressure 138 mm[Hg] Dr. Linda Dominguez Work Phone: [facility] Work Phone: 11-13-2021 06:27-0400 Body height 193.[address] Linda Dominguez Work Phone: [facility] Work Phone: 11-13-2021 06:27-0400 Body mass index (BMI) [Ratio] 28.8 kg/m2 Dr. Linda Dominguez Work Phone: [facility] Work Phone: 11-13-2021 06:27-0400 Body temperature 98.2 [degF] Dr. Linda Dominguez Work Phone: [facility] Work Phone: 11-13-2021 06:27-0400 Body weight 107.[address] Linda Dominguez Work Phone: [facility] Work Phone: 11-09-2021 09:28-0400 Heart rate 99 /min Dr. Linda Dominguez Work Phone: [facility] Work Phone: 11-09-2021 09:28-0400 Respiratory rate 18 /min Dr. Linda Dominguez Work Phone: [facility] Work Phone: 11-09-2021 09:28-0400 SaO2% (BldA) [Mass fraction] 94 % Dr. Linda Dominguez Work Phone: [facility] Work Phone: 11-09-2021 09:06-0400 Body temperature 98.1 [degF] Dr. Linda Dominguez Work Phone: [facility] Work Phone: 11-09-2021 09:06-0400 Diastolic blood pressure 76 mm[Hg] Dr. Linda Dominguez Work Phone: [facility] Work Phone: 11-09-2021 09:06-0400 Systolic blood pressure 132 mm[Hg] Dr. Linda Dominguez Work Phone: [facility] Work Phone: 11-06-2021 12:04-0400 Body height 195.[address] Linda Dominguez Work Phone: [facility] Work Phone: 11-06-2021 12:04-0400 Body weight 104.[address] Linda Dominguez Work Phone: [facility] Work Phone: 10-28-2021 14:26-0400 Inhaled oxygen flow rate 2 L/min Dr. Linda Dominguez Work Phone: [facility] Work Phone: 10-27-2021 05:55-0400 Inhaled oxygen concentration 96 % Dr. Linda Dominguez Work Phone: [facility] Work Phone: 10-23-2021 16:30-0400 Body mass index (BMI) [Ratio] 28.8 kg/m2 Dr. Linda Dominguez Work Phone: [facility] Work Phone: 10-23-2021 14:22-0400 Body temperature 98.2 [degF] Dr. Linda Domignuez Work Phone: [facility] Work Phone: 10-23-2021 14:22-0400 Diastolic blood pressure 84 mm[Hg] Dr. Linda Dominguez Work Phone: [facility] Work Phone: 10-23-2021 14:22-0400 Heart rate 91 /min Dr. Linda Dominguez Work Phone: [facility] Work Phone: 10-23-2021 14:22-0400 Respiratory rate 16 /min Dr. Linda Dominguez Work Phone: [facility] Work Phone: 10-23-2021 14:22-0400 SaO2% (BldA) [Mass fraction] 92 % Dr. Linda Dominguez Work Phone: [facility] Work Phone: 10-23-2021 14:22-0400 Systolic blood pressure 127 mm[Hg] Dr. Linda Dominguez Work Phone: [facility] Work Phone: 10-23-2021 04:45-0400 Body weight 110.[address] Linda Dominguez Work Phone: [facility] Work Phone: 10-12-2021 02:15-0500 Inhaled oxygen flow rate 4 L/min Dr. Linda Dominguez Work Phone: [facility] Work Phone: 10-09-2021 14:17-0500 Body mass index (BMI) [Ratio] 29 kg/m2 Dr. Linda Dominguez Work Phone: [facility] Work Phone: 10-09-2021 13:17-0500 Body mass index (BMI) [Ratio] 29 kg/m2 Dr. Linda Dominguez Work Phone: [facility] Work Phone: 09-26-2021 07:56-0500 Inhaled oxygen concentration 95 % Dr. Linda Dominguez Work Phone: [facility] Work Phone: 09-26-2021 06:56-0500 Inhaled oxygen concentration 95 % Dr. Linda Dominguez Work Phone: [facility] Work Phone: Encounters Encounter Date Encounter Type Care Provider Facility Start: 04-27-2025 End: 04-27-2025 ambulatory Zoraida Ned Facility:[facility] Start: 04-21-2025 ambulatory Zoraida Ned Facility :[facility] Start: 04-14-2025 End: 04-14-2025 Emergency department patient visit Dr. Zoraida Marino MD Work Phone: -Emergency Department Work Phone: Start: 11-09-2024 End: 11-09-[address] Zoraida Marino MD Work Phone: [facility] Work Phone: Start: 11-09-2024 End: 11-09-2024 Patient encounter procedure Maddison LOPEZ -Cardiovascular Services Work Phone: Start: 11-09-2024 End: 11-09-[address] [facility] Facility:[facility] Start: 10-24-2024 End: 10-24-[address] Zoraida Marino MD -[facility] Work Phone: Start: 10-24-2024 End: 10-24-2024 [facility] Start: 10-10-[address] [facility] Facility :[facility] Start: 10-10-[address] Verna Hui MD -[facility] Start: 10-04-2024 ambulatory Verna Pike ty:[facility] Start: 10-04-[address] Verna Hui MD -[facility] Start: 09-30-2024 Non-patient / Non-visit Dr. Shanon Bravo [facility] Work Phone: Start: 09-29-2024 Non-patient / Non-visit Dr. Shanon Bravo DO -[facility] Work Phone: Start: 09-28-2024 Non-patient / Non-visit Dr. Dieudonne Thomspon own DO -[facility] Start: 09-27-2024 Non-patient / Non-visit Dr. Dieudonne Thompson own DO -[facility] Start: 09-27-2024 Non-patient / Non-visit Dr. Tricia doss MD -[facility] Work Phone: Start: 09-26-2024 Non-patient / Non-visit Dr. Jean Claude mccurdy DO [facility] Work Phone: Start: 09-26-[address] [facility] Facility :[facility] Start: 09-26-2024 End: 09-30-2024 Evaluation and management of inpatient Dr. Shanon Bravo DO -Intensive Care Unit Work Phone: Start: 08-16-2024 End: 08-16-[address] Zoraida Marino MD -[facility] Work Phone: Start: 08-16-2024 End: 08-16-2024 ambulatory Zoraida Marino Facility:[facility] Start: 07-31-2024 End: 07-31-2024 Emergency department patient visit Dr. Baljit Fleming DO -Emergency Department Work Phone: Start: 06-01-2024 End: 06-01-2024 ambulatory EVAN WALDEN Facility:[facility] Start: 06-01-2024 End: 06-01-2024 Patient encounter procedure Evan Walden MD Work Phone: Neurology Comment on above: Parkinson's disease without dyskinesia or fluctuating manifestations (HCC) (Primary Dx); Anxiety and depression; Insomnia, unspecified type Start: 05-18-2024 End: 05-18-2024 ambulatory Zoraida Marino Facility:[facility] Start: 04-29-2024 End: 04-29-2024 ambulatory Zoraida Marino Facility:[facility] Start: 10-07-2023 End: 10-07-[address] Zoraida Marino Work Phone: [facility] Work Phone: Start: 10-07-2023 End: 10-07-[address] Zoraida Marino Work Phone: [facility]-Sleep Lab Work Phone: Start: 09-11-2023 End: 09-11-[address] Zoraida Marino Work Phone: [facility] Work Phone: Start: 09-11-2023 End: 09-11-[address] Zoraida Marino Work Phone: [facility] Work Phone: Start: 08-31-2023 End: 08-31-[address] [facility] Work Phone: Start: 08-26-2023 End: 08-26-[address] Zoraida Marino Work Phone: [facility] Work Phone: Start: 08-17-2023 End: 08-17-[address] Zoraida Marino Work Phone: [facility] Internal [facility] Work Phone: Start: 08-14-2023 End: 08-14-[address] Zoraida Marino Work Phone: [facility] Work Phone: Start: 08-14-2023 End: 08-14-[address] Zoraida Marino Work Phone: [facility] Work Phone: Start: 07-22-2023 End: 07-22-[address] Zoraida Marino Work Phone: [facility] Work Phone: Start: 07-22-2023 End: 07-22-[address] Zoraida Marino Work Phone: [facility]-Laboratory Work Phone: Start: 07-02-2023 End: 07-02-[address] oZraida Marino Work Phone: [facility] Neurology Work Phone: Start: 05-07-2023 End: 05-07-[address] Zoraida Marino Work Phone: [facility] Neurology Work Phone: Start: 10-13-2022 End: 10-13-[address] Zoraida Marino Work Phone: [facility] Work Phone: Start: 10-13-2022 End: 10-13-[address] Zoraida Marino Work Phone: [facility]Laboratory Start: 10-09-2022 End: 10-09-[address] Zoraida Marino Work Phone: [facility] Neurology Start: 09-15-2022 End: 09-15-[address] Zoraida Marino Work Phone: [facility]-Pulmonary Services/Neurology Start: 08-14-2022 Non-patient / Non-visit Dr. Echevarria Work Phone: [facility] Start: 08-14-2022 End: 08-14-2022 Admission to same day surgery center Dr. Zoraida Marino Work Phone: [facility]-Endoscopy Start: 07-21-2022 End: 07-21-[address] Zoraida Marino Work Phone: [facility] Neurology Start: 02-24-2022 ambulatory Sabrina Acosta [facility] [place] Comment on above: Population Health [facility] ([facility]) Start: 01-31-2022 End: 01-31-[address] Linda Dominguez Work Phone: [facility] Start: 01-23-2022 End: 01-23-[address] Linda Dominguez Work Phone: [facility] Internal Medicine Start: 01-09-2022 End: 01-09-2022 Patient encounter procedure Nisa Hilario APRN.CNP Work Phone: Pain Management Comment on above: Abnormal involuntary movement (Primary Dx); Spinal stenosis of cervical region; Cervicalgia Start: 01-03-2022 Telephone encounter Kristopher peterson MD Work Phone: Pain Management Comment on above: Results (MRI Cervica l Spine ) Start: 01-02-2022 End: 01-02-2022 Orders Only Remberto Flynn MD Work Phone: [facility] Comment on above: Spinal stenosis of c ervical region [M48.02] Start: 12-17-2021 End: 12-17-[address] Linda Dominguez Work Phone: [facility] Start: 11-26-2021 End: 11-26-[address] Linda Dominguez Work Phone: [facility] Start: 11-22-2021 End: 11-22-[address] Linda Dominguez Work Phone: [facility] Start: 11-14-2021 End: 11-14-[address] Linda Dominguez Work Phone: [facility] Start: 11-13-2021 End: 11-13-2021 Emergency department patient visit Dr. Linda Dominguez Work Phone: [facility]-Emergency Department Start: 11-12-2021 Telephone encounter Linda klein MD Work Phone: [facility] [place] Comment on above: home health OT huber ng (severe backpain) Start: 11-11-2021 Patient Outreach Linda mansfield MD Work Phone: [facility] [place] Comment on above: Transition Of Care Start: 11-06-2021 Telephone encounter Linda klein MD Work Phone: [facility] [place] Comment on above: home health calling Start: 11-06-2021 Non-patient / Non-visit Dr. Brina Dominguez Work Phone: [facility] Start: 11-04-2021 Non-patient / Non-visit Dr. Brina Dominguez Work Phone: [facility] Start: 11-01-2021 Non-patient / Non-visit Dr. Brina Dominguez Work Phone: [facility] Start: 10-31-2021 Non-patient / Non-visit Dr. Brina Dominguez Work Phone: [facility] Start: 10-29-2021 Non-patient / Non-visit Dr. Brina Dominguez Work Phone: [facility] Start: 10-28-2021 Non-patient / Non-visit Dr. Brina Dominguez Work Phone: [facility] Start: 10-27-2021 Non-patient / Non-visit Dr. Brina Dominguez Work Phone: [facility] Start: 10-26-2021 Non-patient / Non-visit Dr. Brina Dominguez Work Phone: [facility] Start: 10-25-2021 Non-patient / Non-visit Dr. Brina Dominguez Work Phone: [facility] Start: 10-24-2021 Non-patient / Non-visit Dr. Brina Dominguez Work Phone: [facility] Start: 10-23-2021 End: 11-09-2021 Evaluation and management of inpatient Dr. Linda Dominguez Work Phone: [facility]-Transitional Care Unit Start: 10-23-2021 Non-patient / Non-visit Dr. Brina Dominguez Work Phone: [facility] Start: 10-22-2021 Non-patient / Non-visit Dr. Brina Dominguez Work Phone: [facility] Start: 10-21-2021 Non-patient / Non-visit Dr. Brina Dominguez Work Phone: [facility] Start: 10-20-2021 Non-patient / Non-visit Dr. Brina Dominguez Work Phone: [facility] Start: 10-19-2021 Non-patient / Non-visit Dr. Brina Dominguez Work Phone: [facility] Start: 10-18-2021 Non-patient / Non-visit Dr. Brina Dominguez Work Phone: [facility] Start: 10-17-2021 Non-patient / Non-visit Dr. Brina Dominguez Work Phone: [facility] Start: 10-16-2021 Non-patient / Non-visit Dr. Brina Dominguez Work Phone: [facility] Start: 10-15-2021 Non-patient / Non-visit Dr. Brina Dominguez Work Phone: [facility] Start: 10-14-2021 Non-patient / Non-visit Dr. Brina Dominguez Work Phone: [facility] Start: 10-11-2021 Non-patient / Non-visit Dr. Brina Dominguez Work Phone: [facility] Start: 10-10-2021 Non-patient / Non-visit Dr. Brina Dominguez Work Phone: [facility] Start: 10-09-2021 Non-patient / Non-visit Dr. Brina Dominguez Work Phone: [facility] Start: 10-08-2021 Non-patient / Non-visit Dr. Brina Dominguez Work Phone: [facility] Start: 10-07-2021 Non-patient / Non-visit Dr. Brina Dominguez Work Phone: [facility] Start: 10-06-2021 Non-patient / Non-visit Dr. Brina Dominguez Work Phone: [facility] Start: 10-05-2021 Non-patient / Non-visit Dr. Brina Dominguez Work Phone: [facility] Start: 10-04-2021 Non-patient / Non-visit Dr. Brina Dominguez Work Phone: [facility] Start: 10-03-2021 Non-patient / Non-visit Dr. Brina Dominguez Work Phone: [facility] Start: 10-02-2021 Non-patient / Non-visit Dr. Brina Dominguez Work Phone: [facility] Start: 10-01-2021 Non-patient / Non-visit Dr. Brina Dominguez Work Phone: [facility] Start: 09-30-2021 Non-patient / Non-visit Dr. Brina Dominguez Work Phone: [facility] Start: 09-27-2021 Non-patient / Non-visit Dr. Brina Dominguez Work Phone: [facility] Start: 09-26-2021 Non-patient / Non-visit Dr. Brina Dominguez Work Phone: [facility] Start: 09-25-2021 Non-patient / Non-visit Dr. Brina Dominguez Work Phone: [facility] Start: 09-24-2021 Non-patient / Non-visit Dr. Brina Dominguez Work Phone: [facility] Start: 09-23-2021 Non-patient / Non-visit Dr. Brina Dominguez Work Phone: [facility] Start: 09-22-2021 Non-patient / Non-visit Dr. Brina Dominguez Work Phone: [facility] Start: 09-21-2021 End: 10-23-2021 Evaluation and management of inpatient [facility] Linda [facility]uez [facility] Start: 09-21-2021 Non-patient / Non-visit Dr. Brina Dominguez Work Phone: [facility] Start: 06-12-2021 End: 06-12-2021 Subsequent hospital visit by physician [facility] Work Phone: Radiology Comment on above: Chronic right should er pain [M25.511, G89.29] Procedures Date Procedure Procedure Detail Performing Clinician Start: 04-14-2025 X-ray of lumbar spin e, two or three views Dr. Zoraida Marino MD Work Phone: Start: 09-27-2024 Plain chest X-ray Dr. Aby Marino MD Work Phone: Start: 09-27-2024 Plain x-ray of pelvi s and lower extremity Dr. Zoraida Marino MD Work Phone: Start: 09-27-2024 Plain X-ray of hip Dr. Zoraida Marino MD Work Phone: Start: 09-27-2024 Fluoroscopic guidance Nestor Marino MD Work Phone: Start: 09-27-[address] Ifeanyi Marino MD Work Phone: Start: 09-27-2024 Computed tomography of soft tissues of neck without contrast Dr. Zoraida Marino MD Work Phone: Start: 09-26-2024 Plain chest X-ray Dr. Aby Marino MD Work Phone: Start: 09-26-2024 Plain radiography of pelvis Dr. Zoraida Marino MD Work Phone: Start: 09-26-2024 Plain X-ray of femur Dr Ifeanyi Marino MD Work Phone: Start: 07-31-2024 SARS-CoV-2, Influenz a & RSV (PCR) Dr. Zoraida Marino MD Work Phone: Start: 07-31-2024 Plain chest X-ray Dr. Aby Marino MD Work Phone: Start: 07-31-2024 CT of head without contrast Dr. Zoraida Marino MD Work Phone: Start: 01-31-2022 MRI of brain without contrast Dr. Linda Dominguez Work Phone: Start: 01-02-2022 Mri spinal canal cer vical w/o contrast matrsalvatore Corbin MD Work Phone: Start: 11-13-2021 X-ray of lumbar spin e, two or three views Dr. Linda Dominguez Work Phone: Start: 11-04-2021 X-ray of lumbosacral spine Dr. Linda Dominguez Work Phone: Start: 11-02-2021 End: 11-02-[address] Linda Dominguez Work Phone: Start: 10-31-2021 End: 10-31-[address] Linda Dominguez Work Phone: Start: 10-26-[address] Linda Dominguez Work Phone: Start: 10-26-2021 End: 10-26-2021 Plain chest X-ray Dr. Linda Dominguez Work Phone: Start: 10-23-2021 Investigation of transfusion reaction Dr. Linda Dominguez Work Phone: Start: 10-23-2021 Microbial culture, routine Dr. Linda Dominguez Work Phone: Start: 10-23-2021 End: 10-23-[address] Linda Dominguez Work Phone: Start: 10-15-2021 Computed tomography of abdomen and pelvis with contrast Dr. Linda Dominguez Work Phone: Start: 10-15-2021 Plain chest X-ray Dr. Salvatore Dominguez Work Phone: Start: 10-09-2021 End: 10-09-2021 Plain X-ray abdomen Dr. Linda Dominguez Work Phone: Start: 10-09-[address] Linda Dominguez Work Phone: Start: 10-09-2021 Computed tomography of abdomen and pelvis with contrast Dr. Linda Dominguez Work Phone: Start: 10-07-2021 Diagnostic radiograp hy of abdomen Dr. Linda Dominguez Work Phone: Start: 10-07-2021 Plain X-ray abdomen Dr. Linda Dominguez Work Phone: Start: 10-06-2021 Plain X-ray abdomen Dr. Linda Dominguez Work Phone: Start: 10-05-2021 Plain X-ray abdomen Dr. Linda Dominguez Work Phone: Start: 10-02-2021 Laparoscopic, Lev Colectomy (Not Applicable) Dr. Linda Dominguez Work Phone: Start: 10-01-2021 Abscess/Fistula/Sinus Tract Dr. Linda Dominguez Work Phone: Start: 09-30-2021 Radiographic procedu re of chest Dr. Linda Dominguez Work Phone: Start: 09-30-2021 Computed tomography of abdomen and pelvis with contrast Dr. Linda Dominguez Work Phone: Start: 09-29-2021 End: 09-29-[address] [place] [place] parasites identification [address] Linda Dominguez Work Phone: Start: 09-27-2021 Plain X-ray abdomen Dr. Linda Dominguez Work Phone: Start: 09-26-2021 Plain X-ray abdomen Dr. Linda Dominguez Work Phone: Start: 09-24-[address] Linda Dominguez Work Phone: Start: 09-21-[address] Linda Dominguez Work Phone: Start: 09-20-2021 Computed tomography of abdomen and pelvis with intravenous contrast Dr. Linda Dominguez Work Phone: Start: 06-12-2021 Radex shoulder compl ete minimum 2 views Elidia Dacaiohausen HE[employer] COUNSEL[employer] Work Phone: Start: 02-07-2021 Lipid 1996 panel - S stevo or Plasma Xr [place] Work Phone: Start: 09-20-2020 Adult depression scr eening assessment Linda Dominguez MD Work Phone: Clostridium difficil e detection Dr. Linda Dominguez Work Phone: Investigation of transfusion reaction Dr. Linda Dominguez Work Phone: Microbial culture, routine D jayne Dominguez Work Phone: [facility] parasites identification Dr. Linda Dominguez Work Phone: Urine culture Dr. Linda castro Work Phone: Viral antigen assay Dr. Linda Dominguez Work Phone: Plan of Treatment Date Care Activity Detail Author Start: 2034 RSV Vaccine (1 - 1-d ose 75+ series) RSV Vaccine (1 - 1-dose 75+ series) [facility] Start: 02-07-2026 Lipid panel Lipid Screening [facility] Start: 02-07-2026 LIPID SCREEN LIPID SCREEN [facility] Start: 05-22-2025 PROSTATE CANCER SCRE ENING DISCUSSION PROSTATE CANCER SCREENING DISCUSSION [facility] Start: 05-22-2025 Prostate specific an tigen measurement Prostate Cancer Screening Discussion [facility] Start: 04-14-2025 [facility] Start: 09-30-2024 Patient discharge [facility] Start: 09-29-2024 Care planning and pr oblem solving actions [facility] Start: 09-28-2024 [facility] Start: 09-28-2024 Determination of Chao hmond Agitation Sedation Scale (RASS) score with assessment for d [facility] Start: 09-27-2024 End: 09-27-2024 [facility] Start: 09-27-2024 Provision of overbed trapeze [facility] Start: 09-27-2024 Ambulation therapy management [facility] Start: 09-27-2024 Application of device [facility] Start: 09-27-2024 Catheterization of vein [facility] Start: 09-27-2024 Exercises [facility] Start: 09-27-2024 Following clinical pathway protocol [facility] Start: 09-27-2024 Introduction of urin pawel catheter [facility] Start: 09-27-2024 Measuring intake and output [facility] Start: 09-27-2024 Neurovascular assessment [facility] Start: 09-27-2024 Patient education [facility] Start: 09-27-2024 Procedure discontinued [facility] Start: 09-27-2024 Provision of activit y privileges [facility] Start: 09-27-2024 Recommendation to continue with treatment [facility] Start: 09-27-2024 Referral to occupati onal therapist [facility] Start: 09-27-2024 Vital signs measurements [facility] Start: 09-27-2024 Wound care [facility] Start: 09-27-2024 Measuring intake and output [facility] Start: 09-27-2024 Measuring intake and output [facility] Start: 09-27-2024 Care planning and pr oblem solving actions [facility] Start: 09-27-2024 Measuring intake and output [facility] Start: 09-27-2024 Oral health maintenance [facility] Start: 09-26-2024 Following clinical pathway protocol [facility] Start: 09-26-2024 Application of ice collar, cap or bag [facility] Start: 09-26-2024 Bedrest [facility] Start: 09-26-2024 Consultation [facility] Start: 09-26-2024 Insertion of cathete r into peripheral vein [facility] Start: 09-26-2024 Neurovascular assessment [facility] Start: 09-26-2024 Providing care accor ding to standard [facility] Start: 09-26-2024 Referral to service [facility] Start: 09-26-2024 Skin care [facility] Start: 09-26-2024 [facility] Start: 09-26-2024 Measuring intake and output [facility] Start: 09-26-2024 Admission procedure [facility] Start: 09-14-2024 End: 09-14-2024 Patient encounter procedure 09/14/2024 1:30 PM EST Office Visit Neurology [address] [place] [address] Evan Walden MD [address] [place] [id number] 3 month follow up Neurology Comment on above: 3 month follow up Start: 08-17-2024 Patient referral [facility] Work Phone: Start: 06-01-2024 End: 06-01-2024 Patient encounter procedure 06/01/2024 3:00 PM EDT Office Visit Neurology [address] [place] [address] Evan Walden MD [address] [place], [place] [id number] having tremors in his hands, involutary tongue movements Neurology Comment on above: having tremors in hi s hands, involutary tongue movements Start: 04-03-2024 Covid-19 Vaccine ( season) Covid-19 Vaccine ( season) [facility] Start: 04-03-2024 Covid-19 Vaccine ( season) Covid-19 Vaccine ( season) [facility] Start: 04-03-2024 Influenza vaccination Influenza Vacc ine (#1) [facility] Start: 02-08-2024 DIABETES SCREEN DIABETES SCREEN [facility] Start: 02-08-2024 Diabetes Screening Diabetes Screenin g [facility] Start: 10-21-2023 Urine microalbumin profile [facility] Start: 08-14-2022 Colsc flx w/rmvl of tumor polyp lesion snare tq COLONOSCOPY W/LESION REMOVAL [facility] Start: 08-14-2022 Patient discharge [facility] Start: 07-11-2022 BP CONTROLLED (<130/80) BP CONTROLLE D (<130/80) [facility] Start: 04-03-2022 Influenza vaccination C [facility] Start: 02-08-2022 ANNUAL PCP TEAM [place] SUPERINTENDENT [place] DISEASE VISIT ANNUAL PCP TEAM CHRONIC DISEASE VISIT [facility] Start: 02-08-2022 SHINGRIX VACCINE (1 of 2) CORBIN GRIX VACCINE (1 of 2) [facility] Comment on above: Postponed from 09/09 (Declined at this time) Start: 01-23-2022 Patient referral [facility] Work Phone: Start: 11-16-2021 COVID-19 VACCINE (4 - Booster for Pfizer series) COVID-19 VACCINE (4 - Booster for Pfizer series) [facility] Start: 11-09-2021 Development of care plan [facility] Work Phone: Start: 11-09-2021 Patient discharge [facility] Work Phone: Start: 11-06-2021 Referral to service [facility] Work Phone: Start: 11-04-2021 [facility] Work Phone: Start: 10-28-2021 Consultation [facility] Work Phone: Start: 10-27-2021 [facility] Work Phone: Start: 10-26-2021 [facility] Work Phone: Start: 10-26-2021 Continuous pulse oximetry [facility] Work Phone: Start: 10-26-2021 Oxygen therapy [facility] Work Phone: Start: 10-26-2021 Dual pressure sponta neous ventilation support [facility] Work Phone: Start: 10-25-2021 [facility] Work Phone: Start: 10-24-2021 Developing a treatme nt plan [facility] Work Phone: Start: 10-24-2021 Development of care plan [facility] Work Phone: Start: 10-24-2021 Application of elast ic bandage [facility] Work Phone: Start: 10-23-2021 Referral to general surgeon [facility] Work Phone: Start: 10-23-2021 Patient referral to dietitian [facility] Work Phone: Start: 10-23-2021 Peripherally inserte d central catheter care [facility] Work Phone: Start: 10-23-2021 Consultation for treatment [facility] Work Phone: Start: 10-23-2021 Wound care [facility] Work Phone: Start: 10-23-2021 Admission procedure [facility] Work Phone: Start: 10-23-2021 Measuring intake and output [facility] Work Phone: Start: 10-23-2021 Patient referral to dietitian [facility] Work Phone: Start: 10-23-2021 Referral to occupati onal therapist [facility] Work Phone: Start: 10-23-2021 Referral to service [facility] Work Phone: Start: 10-23-2021 Vital signs measurements [facility] Work Phone: Start: 10-23-2021 [facility] Work Phone: Start: 10-23-2021 Patient discharge [facility] Work Phone: Start: 10-23-2021 [facility] Work Phone: Start: 10-18-2021 Administration of to josselin parenteral nutrition [facility] Work Phone: Start: 10-17-2021 Administration of to josselin parenteral nutrition [facility] Work Phone: Start: 10-17-2021 [facility] Work Phone: Start: 10-16-2021 Referral to service [facility] Work Phone: Start: 10-16-2021 Administration of to josselin parenteral nutrition [facility] Work Phone: Start: 10-16-2021 [facility] Work Phone: Start: 10-15-2021 Administration of to josselin parenteral nutrition [facility] Work Phone: Start: 10-15-2021 [facility] Work Phone: Start: 10-14-2021 Administration of to josselin parenteral nutrition [facility] Work Phone: Start: 10-13-2021 [facility] Work Phone: Start: 10-13-2021 Administration of to josselin parenteral nutrition [facility] Work Phone: Start: 10-12-2021 Administration of to josselin parenteral nutrition [facility] Work Phone: Start: 10-11-2021 End: 10-12-2021 [facility] Work Phone: Start: 10-11-2021 Consultation [facility] Work Phone: Start: 10-11-2021 Administration of to josselin parenteral nutrition [facility] Work Phone: Start: 10-11-2021 Consultation for treatment [facility] Work Phone: Start: 10-10-2021 Referral to occupati onal therapist [facility] Work Phone: Start: 10-10-2021 Referral to service [facility] Work Phone: Start: 10-10-2021 Wound care [facility] Work Phone: Start: 10-10-2021 Administration of to josselin parenteral nutrition [facility] Work Phone: Start: 10-09-2021 End: 10-09-2021 Administration of total parenteral nutrition [facility] Work Phone: Start: 10-08-2021 Administration of to josselin parenteral nutrition [facility] Work Phone: Start: 10-07-2021 Administration of to josselin parenteral nutrition [facility] Work Phone: Start: 10-06-2021 Administration of to josselin parenteral nutrition [facility] Work Phone: Start: 10-05-2021 Administration of to josselin parenteral nutrition [facility] Work Phone: Start: 10-05-2021 Elevation of head of bed [facility] Work Phone: Start: 10-04-2021 Administration of to josselin parenteral nutrition [facility] Work Phone: Start: 10-03-2021 [facility] Work Phone: Start: 10-03-2021 Administration of to josselin parenteral nutrition [facility] Work Phone: Start: 10-02-2021 Administration of to josselin parenteral nutrition [facility] Work Phone: Start: 10-01-2021 Administration of to josselin parenteral nutrition [facility] Work Phone: Start: 09-29-2021 Care planning and pr oblem solving actions [facility] Work Phone: Start: 09-26-2021 Incentive spirometry [facility] Work Phone: Start: 09-25-2021 Introduction of urin pawel catheter [facility] Work Phone: Start: 09-24-2021 Inhalation therapy procedure [facility] Work Phone: Start: 09-22-2021 Application of ice collar, cap or bag [facility] Work Phone: Start: 09-22-2021 End: 09-22-2021 Referral to service [facility] Work Phone: Start: 09-21-2021 Application of intermittent pneumatic compression device [facility] Work Phone: Start: 09-21-2021 Admission procedure [facility] Work Phone: Start: 09-21-2021 Following clinical pathway protocol [facility] Work Phone: Start: 09-21-2021 Admission procedure [facility] Work Phone: Start: 09-21-2021 Assessment of risk o f venous thromboembolism [facility] Work Phone: Start: 09-21-2021 Catheterization of vein [facility] Work Phone: Start: 09-21-2021 Insertion of cathete r into peripheral vein [facility] Work Phone: Start: 09-21-2021 Providing care accor ding to standard [facility] Work Phone: Start: 09-21-2021 [facility] Work Phone: Start: 09-21-2021 Patient referral to dietitian [facility] Work Phone: Start: 09-20-2021 Adult depression screening assessment DEPRESSION SCREENING [facility] Start: 2009 SHINGRIX VACCINE (1 of 2) CORBIN GRIX VACCINE (1 of 2) [facility] Start: 2004 COLOGUARD (FIT-DNA) COLOGUARD (FIT-D NA) [facility] Start: 2004 Colonoscopy COLONOSCOPY [facility] Start: 2004 COLORECTAL CANCER SCREENING COLORECTAL CANCER SCREENING [facility] Start: [address] COLONOGRAPHY [facility] Start: 2004 FECAL OCCULT BLOOD FECAL OCCULT BLOO D [facility] Start: 2004 Screening for malign ant neoplasm of colon [facility] Start: 2004 SIGMOIDOSCOPY SIGMOIDOSCOPY [facility] Start: 1977 Anxiety Screening Anxiety Screening [facility] Start: 1977 BP Controlled (<130/80) BP Controlle d (<130/80) [facility] Start: 1977 Depression Screening Depression Scre ening [facility] Start: 1977 HEPATITIS C SCREENING HEPATITIS C [facility] Start: 1977 Hepatitis C screening Hepatitis C [facility] Start: 1977 HIV SCREENING HIV SCREENING [facility] Start: 1977 HIV screening HIV Screening [facility] Start: 1964 COVID-19 VACCINE (1) COVID-19 VACCIN E (1) [facility] Njx dx/ther sbst int rlmnr crv/thrc w/img gdn EPI CERV OR THORC W/IMAGING Procedures Routine Spinal stenosis of cervical region Ordered: 01/03/2022 [facility] Work Phone: Comment on above: Ordered: 01/03/2022 Patient Education [facility] Work Phone: Patient referral [facility] Work Phone: Polysomnography [facility] US.doppler Lower extremity vein [facility] Immunizations Immunization Date Immunization Notes Care Provider Fa simon 05-29-2022 Covid Pfizer Bivalen t Booster Dr. Zoraida Marino Work Phone: [facility] 07-18-2021 Covid (Pfizer) Dr. Linda monte Work Phone: [facility] 11-18-2020 Covid (Pfizer) Dr. Linda monte Work Phone: [facility] 10-27-2020 Covid (Pfizer) Dr. Linda monte Work Phone: [facility] 08-19-2018 influenza virus vaccine, unspecified formulation Xr Newton Work Phone: [facility] 10-20-2013 tetanus toxoid, redu solo diphtheria toxoid, and acellular pertussis vaccine, adsorbed Linda Dominguez MD Work Phone: [facility] Payers Date Payer Category Payer Self-pay [id number] 2023 Medicare [id number] 2002 Medicare MEDICARE MEDICAR E A AND B [id number] 2002-Present [phone] [address] [address] [place] [address] Medicare [id number] 2002 Medicare [id number] Medicaid [id number] Medicare [id number] Unknown [id number] Unknown [id number] Unknown [id number] Unknown [id number] Unknown [id number] [id number] Unknown [id number] [id number] Unknown [id number] [id number] Unknown [id number] [id number] Unknown [id number] [id number] Unknown [id number] [id number] Unknown [id number] [id number] Unknown [id number] [id number] Unknown [id number] [id number] Unknown [id number] [id number] Unknown [id number] [id number] Unknown [id number] [id number] Unknown [id number] [id number] Unknown [id number] [id number] Unknown [id number] [id number] Unknown [id number] [id number] Unknown [id number] Social History Date Type Detail Facility Start: 09-04-2017 End: 04-14-2025 Tobacco smoking status NHIS Ex-smoker [facility] Work Phone: Start: 07-11-2021 End: 06-01-2024 Alcohol intake Current non-drinker of alcohol (finding) [facility] Start: 02-08-2021 History SDOH Alcohol Frequency 1 [facility] Start: 02-08-2021 History SDOH Alcohol Std Drinks 98 [facility] Start: 02-08-2021 History SDOH Social Connections Get Together 2 [facility] Start: 02-08-2021 History SDOH Social Connections Holiness 3 [facility] Start: 02-08-2021 History SDOH Financial 4 [facility] Start: 02-08-2021 Education 14 [facility] Start: 04-25-2014 Tobacco Comment quit 1981 [facility] Start: 1960 Sex Assigned At Not on file [facility] Start: 10-23-2021 End: 08-31-2023 Tobacco smoking status SDIS Unknown if ever smoked [facility] Start: 05-18-2018 Heavy [facility] Start: 05-18-2018 None [facility] Start: 05-18-2018 Spouse/ Significant Other [facility] Start: 05-23-2018 Cigarettes [facility] Start: 1960 Sex Assigned At Male [facility] Start: 04-30-2021 End: 01-08-2022 Exposure to SARS-CoV-2 (event) Not sure [facility] History of tobacco use Current smoker [facility] Start: 09-04-2017 Tobacco use and exposure Smokeless tobacco non-user [facility] Start: 02-08-2021 End: 06-01-2024 History of Social function [facility] Start: 02-08-2021 End: 06-01-2024 Social connection and isolation panel [facility] Do you belong to any clubs or organizations such as zoroastrian groups, unions, fraternal or athletic groups, or school groups? No [facility] How often do you att end meetings of the clubs or organizations you belong to? Patient declined [facility] Are you now , , , , never or living with a partner? [facility] How often to you hav e a drink containing alcohol? Never [facility] How hard is it for y ou to pay for the very basics like food, housing, medical care, and heating Not very hard [facility] Do you feel stress - tense, restless, nervous, or anxious, or unable to sleep at night because your mind is troubled all the time - these days [OSQ] To some extent [facility] (I/We) worried wheth er (my/our) food would run out before (I/we) got money to buy more. Never true [facility] Start: 11-11-2024 Sex Male (finding) [facility] Medical Equipment Procedure Code Equipment Code Equipment Origin al Text Equipment Identifier Dates Insertion, trochanteric nail, femur, proximal TRIGEN INTERTAN FDA Start: 09-27-2024 Insertion, trochanteric nail, femur, proximal TRIGEN INTERTAN LOCKING LAG SCREW FDA Start: 09-27-2024 Insertion, trochanteric nail, femur, proximal TRIGEN L-P SCREW FDA Start: 09-27-2024 Insertion, trochanteric nail, femur, proximal TRIGEN INTERTAN FDA Start: 09-27-2024 Insertion, trochanteric nail, femur, proximal TRIGEN INTERTAN LOCKING LAG SCREW FDA Start: 09-27-2024 Insertion, trochanteric nail, femur, proximal TRIGEN L-P SCREW FDA Start: 09-27-2024 Appendectomy, laparoscopic 45mm Standard Reload FDA Start: 09-21-2021 Appendectomy, laparoscopic 45mm Standard Reload FDA Start: 09-21-2021 Appendectomy, laparoscopic 45mm Standard Reload FDA Start: 09-21-2021 Appendectomy, laparoscopic 45mm Standard Reload FDA Start: 09-24-2021 Appendectomy, laparoscopic 45mm Standard Reload FDA Start: 09-24-2021 Appendectomy, laparoscopic Plant polysaccharide haemostatic agent, bioabsorbable ([id number] FDA Start: 09-24-2021 Appendectomy, laparoscopic 45mm Standard Reload FDA Start: 09-21-2021 Appendectomy, laparoscopic 45mm Standard Reload FDA Start: 09-21-2021 Appendectomy, laparoscopic 45mm Standard Reload FDA Start: 09-21-2021 Appendectomy, laparoscopic 45mm Standard Reload FDA Start: 09-24-2021 Appendectomy, laparoscopic 45mm Standard Reload FDA Start: 09-24-2021 Appendectomy, laparoscopic 45mm Standard Reload FDA Start: 09-21-2021 Appendectomy, laparoscopic 45mm Standard Reload FDA Start: 09-21-2021 Appendectomy, laparoscopic 45mm Standard Reload FDA Start: 09-21-2021 Appendectomy, laparoscopic 45mm Standard Reload FDA Start: 09-24-2021 Appendectomy, laparoscopic 45mm Standard Reload FDA Start: 09-24-2021 Appendectomy, laparoscopic 45mm Standard Reload FDA Start: 09-21-2021 Appendectomy, laparoscopic 45mm Standard Reload FDA Start: 09-21-2021 Appendectomy, laparoscopic 45mm Standard Reload FDA Start: 09-21-2021 Appendectomy, laparoscopic 45mm Standard Reload FDA Start: 09-24-2021 Appendectomy, laparoscopic 45mm Standard Reload FDA Start: 09-24-2021 Appendectomy, laparoscopic 45mm Standard Reload FDA Start: 09-21-2021 Appendectomy, laparoscopic 45mm Standard Reload FDA Start: 09-21-2021 Appendectomy, laparoscopic 45mm Standard Reload FDA Start: 09-21-2021 Appendectomy, laparoscopic 45mm Standard Reload FDA Start: 09-24-2021 Appendectomy, laparoscopic 45mm Standard Reload FDA Start: 09-24-2021 Appendectomy, laparoscopic 45mm Standard Reload FDA Start: 09-21-2021 Appendectomy, laparoscopic 45mm Standard Reload FDA Start: 09-21-2021 Appendectomy, laparoscopic 45mm Standard Reload FDA Start: 09-21-2021 Appendectomy, laparoscopic 45mm Standard Reload FDA Start: 09-24-2021 Appendectomy, laparoscopic 45mm Standard Reload FDA Start: 09-24-2021 Appendectomy, laparoscopic 45mm Standard Reload FDA Start: 09-21-2021 Appendectomy, laparoscopic 45mm Standard Reload FDA Start: 09-21-2021 Appendectomy, laparoscopic 45mm Standard Reload FDA Start: 09-21-2021 Appendectomy, laparoscopic 45mm Standard Reload FDA Start: 09-24-2021 Appendectomy, laparoscopic 45mm Standard Reload FDA Start: 09-24-2021 Appendectomy, laparoscopic 45mm Standard Reload FDA Start: 09-21-2021 Appendectomy, laparoscopic 45mm Standard Reload FDA Start: 09-21-2021 Appendectomy, laparoscopic 45mm Standard Reload FDA Start: 09-21-2021 Appendectomy, laparoscopic 45mm Standard Reload FDA Start: 09-24-2021 Appendectomy, laparoscopic 45mm Standard Reload FDA Start: 09-24-2021 Appendectomy, laparoscopic 45mm Standard Reload FDA Start: 09-21-2021 Appendectomy, laparoscopic 45mm Standard Reload FDA Start: 09-21-2021 Appendectomy, laparoscopic 45mm Standard Reload FDA Start: 09-21-2021 Appendectomy, laparoscopic 45mm Standard Reload FDA Start: 09-24-2021 Appendectomy, laparoscopic 45mm Standard Reload FDA Start: 09-24-2021 Appendectomy, laparoscopic 45mm Standard Reload FDA Start: 09-21-2021 Appendectomy, laparoscopic 45mm Standard Reload FDA Start: 09-21-2021 Appendectomy, laparoscopic 45mm Standard Reload FDA Start: 09-21-2021 Appendectomy, laparoscopic 45mm Standard Reload FDA Start: 09-24-2021 Appendectomy, laparoscopic 45mm Standard Reload FDA Start: 09-24-2021 RELOAD, SR75 SELECTABLE FDA Start: 10-02-2021 RELOAD, SR75 SELECTABLE FDA Start: 10-02-2021 RELOAD, SR75 SELECTABLE FDA Start: 10-02-2021 STAPLER,TX60B FDA Start: 10-02-2021 RELOAD, SR75 SELECTABLE FDA Start: 10-02-2021 RELOAD, SR75 SELECTABLE FDA Start: 10-02-2021 RELOAD, SR75 SELECTABLE FDA Start: 10-02-2021 STAPLER,TX60B FDA Start: 10-02-2021 RELOAD, SR75 SELECTABLE FDA Start: 10-02-2021 RELOAD, SR75 SELECTABLE FDA Start: 10-02-2021 RELOAD, SR75 SELECTABLE FDA Start: 10-02-2021 STAPLER,TX60B FDA Start: 10-02-2021 RELOAD, SR75 SELECTABLE FDA Start: 10-02-2021 RELOAD, SR75 SELECTABLE FDA Start: 10-02-2021 RELOAD, SR75 SELECTABLE FDA Start: 10-02-2021 STAPLER,TX60B FDA Start: 10-02-2021 RELOAD, SR75 SELECTABLE FDA Start: 10-02-2021 RELOAD, SR75 SELECTABLE FDA Start: 10-02-2021 RELOAD, SR75 SELECTABLE FDA Start: 10-02-2021 CECE TREVIÑO FDA Start: 10-02-2021 RELOAD, SR75 SELECTABLE FDA Start: 10-02-2021 RELOAD, SR75 SELECTABLE FDA Start: 10-02-2021 RELOAD, SR75 SELECTABLE FDA Start: 10-02-2021 CECE TREVIÑO FDA Start: 10-02-2021 RELOAD, SR75 SELECTABLE FDA Start: 10-02-2021 RELOAD, SR75 SELECTABLE FDA Start: 10-02-2021 RELOAD, SR75 SELECTABLE FDA Start: 10-02-2021 CECE TREVIÑO FDA Start: 10-02-2021 RELOAD, SR75 SELECTABLE FDA Start: 10-02-2021 RELOAD, SR75 SELECTABLE FDA Start: 10-02-2021 RELOAD, SR75 SELECTABLE FDA Start: 10-02-2021 CECE TREVIÑO FDA Start: 10-02-2021 RELOAD, SR75 SELECTABLE FDA Start: 10-02-2021 RELOAD, SR75 SELECTABLE FDA Start: 10-02-2021 RELOAD, SR75 SELECTABLE FDA Start: 10-02-2021 CECE TREVIÑO FDA Start: 10-02-2021 RELOAD, SR75 SELECTABLE FDA Start: 10-02-2021 RELOAD, SR75 SELECTABLE FDA Start: 10-02-2021 RELOAD, SR75 SELECTABLE FDA Start: 10-02-2021 CECE TREVIÑO FDA Start: 10-02-2021 Goals Date Patient Goal Desired Activity /State Functional Status Date Assessment Result Facility 09-30-2024 Functional status Chair [facility] Work Phone: 11-09-2021 Functional status Activity Abili ty With Assist of 1 [facility] Work Phone: 11-02-2021 Functional status Ambulates [facility] Work Phone: 10-25-2021 Functional status Tolerates Activity Well [facility] Work Phone: 10-22-2021 Functional status Chair [facility] Work Phone: Mental Status Date Assessment Result Facility 09-30-2024 Cognitive function Voice/Name [facility] Work Phone: 07-31-2024 Cognitive function Awake;Alert;A ppropriate;Follow s Commands [facility] Work Phone: 08-14-2022 Cognitive function Level Of Cons ciousness Awake;Appropriate [facility] Work Phone: 08-14-2022 Cognitive function Voice/Name [facility] Work Phone: 11-09-2021 Cognitive function Voice/Name [facility] Work Phone: 10-25-2021 Cognitive function Intact [facility] Work Phone: 10-23-2021 Cognitive function Voice/Name [facility] Work Phone: 10-21-2021 Cognitive function Appropriate;Cooperativ e [facility] Work Phone: Clinical Notes 06-12-2021 to 04-14-2025 Note Date & Type Note Facility 04-14-2025 Discharge summary [facility] 04-14-2025 Radiology Diagnostic study note [facility] Imaging Services [address] [place], [place] [address] Lumbar Spine 2 or 3 Views MR#: [id number] Acct: [id number] Name: OLGA MARTIN Rep #: [id number] : 1960 M 64 From: [place] MD PCP: Dr. Zoraida Marino MD Status: REG ER Study:Lumbar Spine 2 or 3 Views Date of Exam: 04/14/25 Exam# [id number] Ordering Dr: Ada Neal MD PROCEDURE: LUMBAR SPINE 2 OR 3 VIEWS 04/14/2025 REASON FOR EXAM: INJURY/PAIN TECHNIQUE: Procedure Code: RADSPLL Modality: DX Procedure: LUMBAR SPINE 2 OR 3 VIEWS COMPARISON: 11/13/2021 FINDINGS: Evaluation is somewhat limited due to marked qualitative osteopenia. Postoperative changes of multilevel posterior instrumented fusion from L1-S1, without evidence for hardware complication. Stable appearingosseous alignment and moderate-advanced multilevel spondylotic changes with exaggerated lower lumbar lordosis, chronic dorsal subluxation at the L3-4 level, and multiple chronic wedge compression fracture deformities of the lower thoracolumbar vertebrae. Unchanged sclerotic focus anterior aspect of L3 may be kyphoplasty cement. Multiple surgical clips along the prevertebralsoft tissues. RAD/Lumbar Spine 2 or 3 Views IMPRESSION: Marked qualitative osteopenia limits evaluation. Moderate-advanced multilevel spondylotic changes, as well as postoperative changes of posterior instrumented fusion from L1-S1. No evidence of hardware complication. Stable alignment with exaggerated lower lumbar lordosis and chronic retrolisthesis of L3 relative to L4, and multiple chronic lower thoracolumbar wedge compression fracture deformities. Reading Location: [facility] CC: Dr. Zoraida Marino MD; Dr. Franklin Neal MD ~ Technical Developer: Signed [facility] 04-14-2025 Discharge summary Note Date/Time April 14, 2025 9:10pm [facility] Medical Records Department [address] [place] [address] Emergency Department Summary 04/14/25 MR#: [id number] Acct: [id number] Name: OLGA MARTIN Rep #:[id number] : [id number] 64 From: [place] Neal MD PCP: Dr. Zoraida Marino MD Status:REG ER Location: ED HPI History of Present Illness Chief Complaint: Complaint Detail of Chief Complaint: Incontinence of urine, frequency, incontinence of stool and tremor Informant: patient and spouse/S.O. Onset/Context/Timing Onset: Month(s) (4+ months) Timing: Continuous Quality: Tremor of upper extremities Location: Upper extremities bilaterally Current Severity: Moderate Maximum Severity: Moderate Worsened by: Rest Relieved by: Performing activity Associated Symptoms Associated Symptoms: Also complains of back pain with incontinence of urine and stool and Narrative Narrative: Patient is a 64-year-old male. 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 His PCP believes his tremor is essential tremor. Been seen by neurology and the thought is that this is due to Parkinson's. He is on Parkinson medication. Has had no improvement. He apparently is scheduled to see Dr. Landry. He also presents because of frequencyunable to hold his urine and incontinence of bowel. He has been wearing a diaper for months. He is recently developed a weakness in his left lower extremity. This occurred 4 to 5 months ago. He walks with a wheeled walker. He drags both legs according the . The symptoms started after he fractured his femur and was placed in rehab several months ago. He has been under the care of Dr. Vieira. He denies fever, chills night sweats. Denies recent dental procedure. He denies night sweats. He has no cardiac or respiratory symptoms. He denies abdominal pain, nausea, vomiting or diarrhea. Prior similar symptoms: Yes Recent Illness/Hospitalization: No PFSH [facility] Medical History Fracture, intertrochanteric, right femur Cellulitis of left lower leg Anxiety Alcohol use Marijuana use Ambulates with cane Hepatitis Injury of head and neck Syncope Former smoker Shortness of breath on exertion Neuropathy Tremor Foot drop History of stress test Hypertension Cristela Monahan virus positive mononucleosis syndrome High calcium levels Cluster headaches GERD (gastroesophageal reflux disease) PTSD (post-traumatic stress disorder) Adrenal disorder Draining postoperative wound Perforation of small intestine Back pain due to injury Chronic pain Pancreatitis neck/back pain Limb weakness Difficulty balancing MRSA (methicillin resistant staph aureus) culture positive Anemia Shoulder pain Arthritis Acute pancreatitis Home Medications ?Medication ?Instructions ?Recorded ?Last Taken ?Type handicap placard #1 ea 08/16/24 Unknown Rx miscellaneous medical supply #1 ea 08/16/24 Unknown Rx (Blood Pressure Cuff) multivitamin 1 tab PO QDAY 08/16/2409/25 History MEDICAL MARIJUANA 09/26/24 Unknown History (INFORMATIONAL USE ONLY-PT USES MEDICAL MARIJUANA mirtazapine 15 mg tablet 15 mg PO QHS 09/26/24 History aspirin 81 mg capsule 81 mg PO BID #1 cap 09/30/24 Unknown Rx hydralazine 50 mg tablet 50 mg PO TID #7 tabs 5 Unknown Rx losartan 50 mg tablet 50 mg PO DAILY #0 tabs 09/30 Unknown Rx acetaminophen 650 mg 650 mg PO Q8H 10/24/24 Unkno wn History tablet,extended release (Tylenol 8 Hour) cyclobenzaprine 10 mg tablet 10 mg PO TID #90 tabs Unknown Rx miscellaneous medical supply #1 ea 10/27/24 Unknown Rx Allergy/AdvReac Type Severity Reaction Status Date / Time hydroxyzine (From Vistaril) Allergy Severe Vomiting Verified 04/14/25 17:33 niacin Allergy Severe Vomiting Verified 04/14/25 17:33 carbidopa (From Sinemet) Allergy Mild Abd Verified 04/14/25 17:33 cramps/diarrhea levodopa (From Sinemet) Allergy Mild Abd Verified 04/14/25 17:33 cramps/diarrhea acetaminophen AdvReac Severe Nausea/Vom/ Verified 04/14/25 17:33 Diarrhea fentanyl (From Duragesic) AdvReac Severe Nausea/Vom/ Verified 04/14/25 17:33 Diarrhea metoclopramide HCl (From AdvReac anxiety Verified 04/14/25 17:33 Reglan) nabumetone (From Relafen) AdvReac Nausea/Vom/ Verified 04/14/25 17:33 Diarrhea Family History Father Cancer ? 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 Smoking Status: Former smoker Tobacco: How many years used: 20 Smokeless tobacco user: other alcohol intake: former substance use type: does not use do you feel safe at home: Yes ROS ROS ED Constitutional Constitutional ED: Denies chills, fever(s), subjective, sweats or weight loss Eyes Eyes: Denies blurry vision or change in vision ENT ENT ED: Denies ear pain or rhinorrhea Cardiovascular Cardiovascular: Denies chest pain or palpitations Respiratory/Chest Respiratory/Chest: Denies cough, dyspnea or dyspnea on exertion Gastrointestinal Gastrointestinal: Reports diarrhea; Denies abdominal pain, constipation, melena,nausea or vomiting Genitourinary Genitourinary ED: Reports urinary frequency and other Details: Urgency and incontinence ; Denies dysuria or hematuria Musculoskeletal Musculoskeletal: Reports back pain; Denies arthralgias, myalgias or neck pain Integumentary Denies abscess or rash Neurologic Neurologic: Reports paresthesias and weakness; Denies headache(s) Psychiatric Psychiatric: Denies anxiety or depression Endocrine Endocrinology: Denies cold intolerance or heat intolerance Hematologic/Lymphatic Hematologic/Lymphatic: Reports systems reviewed and no addt'l complaints, exceptas documented EXAM Physical Exam Const Vital Signs: 04/14/25 17:34 04/14/25 18:53 04/14/25 20:00 Temperature 97.6 F L Temperature Source Temporal Pulse Rate 95 98 72 Respiratory Rate 18 17 18 Blood Pressure 214/113 H 153/91 H 154/90 H Blood Pressure Mean 146 111 111 Pulse Ox 96 100 Oxygen Delivery Method Room Air Room Air Positive well nourished and well developed Constitutional Narrative: Patient has a resting tremor upper extremities. Blood pressure is elevated. Repeat blood pressure improved markedly. General Appearance ED: well developed and NAD HEENT Reports moist mucous membranes HEENT Narrative: Head is atraumatic no cephalic. Ears normal. Nares patent. Posterior pharynx normal. No deviation tongue protrusion. Uvula is midline. Eyes PERRL and EOMs intact bilaterally General Eye ED: Negative for pale conjunctiva or scleral icterus Neck no lymphadenopathy, supple and no JVD Chest Wall inspection of chest normal and palpation of chest normal Resp normal respiratory effort and clear to auscultation bilaterally Cardio regular rate, regular rhythm, S1 normal heart sound, S2 normal heart sound and no murmurs GI normal to inspection, nondistended, normoactive bowel sounds, non-tender, non-distended and no masses; Negative for hepatosplenomegaly Narrative: No abnormality Extremity Negative for normal to inspection Extremity Narrative: Edema of both lower extremities. Neuro oriented x3, CN's II-XII intact bilaterally and no sensory deficits noted Neuro Narrative: Patient has foot drop right side. He has weakness with plantar dorsiflexion of his left foot. Reflexes are plus minus patella and ankle. There is no clonus or Babinski sign noted. Patient's tremor abates when asked to move his hand towards an object. Question of cogwheel rigidity at the elbow on the right side. Not appreciated on the left. Sensorium / Orientation: alert Motor Exam: Negative for strength 5/5 throughout Skin no rashes or lesions noted, no wounds and skin turgor normal MDM MDM MDM Narrative Medical decision making narrative: Since patient is not had imaging of his back imaging of his back was obtained. Will obtain CBC to assess white count differential H&H. Competence of metabolicpanel to assess calcium, alkaline phosphatase electrolytes. History & Record Review Additional record(s) reviewed:: Prior outpatient record (Reviewed neurology notes. Neurologist believes he has an essential tremor. There was also thoughtthat this may be due to Parkinson's disease.) Lab Data Attestation: I reviewed the patient's lab results. Lab results narrative: CBC is unremarkable. Basic metabolic panel reveals elevated BUN to creatinine ratio however the BUN/creatinine are both normal at 18 and 0.6. Glucose slightly elevated 125 with normal CO2 anion gap. Labs: Laboratory Results - last 24 hr 04/14/25 18:31 WBC 7.0 RBC 4.13 L Hgb 13.4 Hct 38.7 L MCV 93.7 MCH 32.4 H MCHC 34.6 RDW Std Deviation 43.1 RDW Coeff of Ar 12.4 Plt Count 208 MPV 10.1 Immature Gran % (Auto) 0.300 Neut % (Auto) 61.0 Lymph % (Auto) 26.8 Ferry % (Auto) 10.0 Eos % (Auto) 1.0 Baso % (Auto) 0.9 Absolute Neuts (auto) 4.3 Absolute Lymphs (auto) 1.87 Nucleated RBC % 0 Sodium 138 Potassium 4.3 Chloride 104 Carbon Dioxide 23.3 Anion Gap 11 BUN 18 Creatinine 0.61 L Est GFR (MDRD) Non-Af 107 BUN/Creatinine Ratio 30.4 H Glucose 125 H Calcium 9.1 Total Bilirubin 0.39 AST 17 ALT 10 Alkaline Phosphatase 71 Total Protein 7.0 Albumin 4.2 Globulin 2.8 Albumin/Globulin Ratio 1.5 Radiography Chest X-Ray - ED: 2 View (Palacios rods noted. He has kyphosis of lumbar region with significant osteopenia and degenerative changes.) Diagnostic Testing: Clinical Impression(s) from Imaging Studies Lumbar Spine X-Ray 04/14/25 18:40 IMPRESSION: Marked qualitative osteopenia limits evaluation. Moderate-advanced multilevel spondylotic changes, as well as postoperative changes of posterior instrumented fusion from L1-S1. No evidence of hardware complication. Stable alignment with exaggerated lower lumbar lordosis and chronic retrolisthesis of L3 relative to L4, and multiple chronic lower thoracolumbar wedge compression fracture deformities. Reading Location: [facility] Treatment and Re-Evaluation :: Patient and were informed of x-ray results and laboratory results. Patientrequested external catheter and see if this will help him at least sleep. Discharge Plan Triage Chief Complaint: Complaint ED Provider: Franklin Neal Dx/Rx/DC Orders Clinical Impression: Resting tremor, Essential tremor, Hypertension, Urinary incontinence, Chronic diarrhea Instructions: Essential Tremor (ET) Prescriptions: No Action multivitamin Tablet 1 tab PO QDAY (DME) handicap placard See Rx Instructions .ROUTE .MEDSUPPLY Qty: 1 0RF Rx Instructions: Length of time: 5 years Diagnosis: Impaired physical mobility Z74.09 (DME) Blood Pressure Cuff Misc See Rx Instructions .Route Qty: 1 0RF Rx Instructions: As directed acetaminophen [Tylenol 8 Hour] 650 mg tablet extended release 650 mg PO Q8H cyclobenzaprine 10 mg tablet 10 mg PO TID Qty: 90 0RF mirtazapine 15 mg tablet 15 mg PO QHS (DME) MEDICAL MARIJUANA (INFORMATIONAL USE ONLY-PT USES MEDICAL MARIJUANA Edible See Rx Instructions .Route Patient Comments: USED TODAY Rx Instructions: As directed losartan 50 mg Tablet 50 mg PO DAILY Qty: 0 0RF aspirin 81 mg capsule 81 mg PO BID Qty: 1 0RF Rx Instructions: To start 10/15/2024 and continue for 2 weeks following hydralazine 50 mg tablet 50 mg PO TID Qty: 7 0RF (DME) miscellaneous medical supply Misc See Rx Instructions .Route Qty: 1 0RF Rx Instructions: Hospital bed Primary Care Provider: Zoraida Marino Referrals: Zoraida Marino MD [Primary Care Provider] - As Needed Print Language: Frisian Disposition Disposition: Home, Self Care What to do if you have Problems For any increased pain, shortness of breath, bleeding, nausea or vomiting, chestpain, or any unexpected problems, contact your Primary Care Provider. Call [facility] ([phone]) or report to the closest Emergency Room. Call 911 if necessary. 04/14/252109 <Electronically signed by Franklin Neal MD> Cosigner Signature (if applicable): CC: Dr. Zoraida Marino MD ~ Signed [facility] Work Phone: 1(409) 268-666102-28-2025 [facility]02-25-2025 [facility]01-14-2025 Evaluation note* Diagnosis Onset Date Resolution Status Admit Date PTSD (post-traumatic stress disorder) acute August 16 1:57pm Tremor acute August 16, 2024 1:57pm Chronic lower back pain chronic J anuary 2024 1:57pm Severe obstructive sleep apnea noneactive August 16 1:57pm Essential hypertension noneactive Ja nuary 2024 1:57pm Acute febrile illness noneactive Robin uary 2024 1:57pm Acute respiratory failure resolved September 26, 2024 7:17pm Hip fracture resolved September 7:17pm Uvular swelling resolved September 26, 2024 7:17pm Fracture, intertrochanteric, right femur inactive September 26, 2 025 7:17pm PTSD (post-traumatic stress disorder) acute October 24, 2024 7:54am Uvular swelling noneactive October 7:54am Swelling of right lower extremity noneactive October 24, 2024 7:54am Status post hip surgery noneactive M arch 2024 7:54am Essential hypertension noneactive [facility] 2024 7:54am Hospital discharge follow-up noneact aby October 24, 2024 7:54am [facility] Work Phone: 1(445) 985-542910-30-2024 Instructions* Patient Instructions* Evan Walden MD - 06/01/2024 3:33 PM EDT 1. Stop propranolol 2. Start mirtazapine - take 1/2 pill at bedtime for 10 days then increase to a full pill at bedtimethereafter 3. Wait a week or two after starting the mirtazapine, then start a medication called carbidopa/levodopa. It's a symptomatic medication for Parkinson's Disease that helps replace dopamine to improve movement symptoms. Take a half pill three times a day for the first week, then increase to a full pill three times a day. Depending on how you respond you can go up to 1.5 pills three times a day aftera few weeks, and then 2 pills three times a day after a few more weeks if no benefit or side effects. It works best when taken before meals, but if you get nauseous when taking it, eating a snack with it (preferably without protein) is ok. Watch out for side effects such as nausea, light-headedness, hallucinations, fatigue, or extra movements (dyskinesia). Breakfast Lunch Dinner Week 1 1/2 1/2 1/2 Week 2-4 1 1 1 Week 5-7 1.5 1.5 1.5 Week 8 and on 2 2 You can stop at a lower dose if you feel great on it or have side effects Take the extra carbidopa with each dose to try to help nausea. [facility] NoteHNO ID: [id number] Author: EVAN WALDEN MD Service: ? Author Type: Physician Type: Progress Notes Filed: 06/01/2024 16:44 Note Text: NEW PATIENT EVALUATION Subjective HPI Olga Martin is a 63 year old right-handed male who presents for evaluation of tremor. Dr. Zoraida Marino MD is the PCP. He notes tremor started in 2016 first in the right hand then the left hand a couple years later. Started with tremor at rest then gradually involved action. Walks with a cane at home, wheelchair outside the house. Burst fracture L3 in 1983, has had at least 8 surgeries on his back, extensive changes with foot drop and chronic gait impairment from this. Sense of smell absent for many years before symptom onset. No consistent constipation. Has dream enactment every other night, tremor also present when asleep. Index fingers want to curl in. No LH with standing. Had hallucinations after appendix burst / surgery, none recently. Problems with depression / anxiety, interested in medication for this today. Sleep is poor, previously tried melatonin but caused nightmares. Mentions tongue dystonia but more describing tremor. Mom had what sounds like dystonia and tongue protrusion, diagnosed as having Parkinson's though. Was on levodopa which may explain her involuntary movements. Mom's twin sister with tremor attributed to alcoholism. Has had multiple med trials. On propranolol ER 60 mg daily not sure how much it helps. No etoh due to history of pancreas problems. Prior prescriptions in records: - Cd/ld 25/100 CR BID 06/17/19 - Primidone 25 mg 4xday 10/11/19 and 06/12/20 - Trihexyphenidyl (Dr. Davis, unsure response) - Keppra - Flexeril Medications: Current Outpatient Medications Medication Sig Dispense Refill propranolol HCl (PROPRANOLOL ORAL) Take 1 capsule by mouth once daily. promethazine (PHENERGAN) 25 mg tablet Take 1 tablet by mouth every 6 hours as needed. 30 tablet 1 prazosin (MINIPRESS) 1 mg cap Take 1 capsule by mouth daily at bedtime. (Patient not taking: Reported on 06/01/2024) 30 capsule 2 triamterene-hydrochlorothiazide (DYAZIDE) 37.5-25 mg per capsule Take 1 capsule by mouth once daily. (Patient not taking: Reported on 05/30/2021) 30 capsule 11 No current facility-administered medications for this visit. ROS ROS: His ROS was positive for that mentioned in the HPI. Otherwise a 10-point ROS was completed and was negative. ALLERGIES Allergen Reactions Acetaminophen GI Upset, Other: See Comments headaches Duloxetine Other: See Comments Made him Duragesic [Fentanyl] GI Upset Gabapentin Vomiting Reglan [Metoclopram* Mental Status Change Robaxin [Methocarba* Vomiting Tramadol ultram flu symptoms Past Medical History: PAST MEDICAL HISTORY Diagnosis Date Foot drop, right s/p back injury Generalized anxiety disorder Anxiety, Generalized Generalized osteoarthrosis, unspecified site History of pancreatitis 1 bout in 2004--no cause found; no recurrences LUMB/LUMBOSAC DISC DEGEN 01/18/2002 LUMBOSACRAL NEURITIS NOS 01/18/2002 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 Social History: Social History Tobacco Use Smoking status: Former Smokeless tobacco: Never Tobacco comments: quit 1980 Substance Use Topics Alcohol use: No Drug use: No No etoh Objective 06/01/24 1447 Pulse: 88 SpO2: 97% Weight: 101.6 kg (224 lb) Height: 193 cm (6' 4) Physical Examination General Appearance: Well appearing, alert, in no acute distress, well-hydrated, well nourished. Head: Normocephalic Neck: Supple Heart: RRR Peripheral Pulses: Normal Neurologic Examination Mental Status: He is alert. He is fully oriented. Attention is intact. Recent and remote memory is intact. Language shows normal comprehension and fluency. Praxis is normal. Affect is appropriate. Cranial Nerves: Pupils are equal and reactive to light. Extraocular movements show full and smooth pursuits. No nystagmus. Visual fajardo are full to confrontation. Facial sensation is intact. Facial activation is symmetric. Hearing is intact to conversation. There is mild hypomimia. There is mild hypophonia. There is no dysarthria. Tongue is midline. Palate elevates symmetrically. Shoulder shrug is mildly delayed on right. Motor: Muscle bulk is normal. Bilateral foot drop worse on right where there is minimal movement. Severe bilateral rest tremor mild in LEs. Mild kinetic tremor. R>L postural re-emergent tremor. Mod chin and tongue tremors. (more content not included)... [facility]10-30-2024 History of Present illness Narrative* Evan Walden MD - 06/01/2024 2:41 PM EDT NEW PATIENT EVALUATION Subjective HPI Olga Martin is a 63 year old right-handed male who presents for evaluation of tremor. Dr. Larry Marino MD is the PCP. He notes tremor started in 2016 first in the right hand then the left hand a couple years later. Started with tremor at rest then gradually involved action. Walks with a cane at home, wheelchair outside the house. Burst fracture L3 in 1983, has had at least 8 surgeries on his back, extensive changes with foot drop and chronic gait impairment from this. Sense of smell absent for many years before symptom onset. No consistent constipation. Has dream enactment every other night, tremor also present when asleep. Index fingers want to curl in. No LH with standing. Had hallucinations after appendix burst / surgery, none recently. Problems with depression / anxiety, interested in medication for this today. Sleep is poor, previously tried melatonin but caused nightmares. Mentions tongue dystonia but more describing tremor. Mom had what sounds like dystonia and tongue protrusion, diagnosed as having Parkinson's though. Was on levodopa which may explain her involuntary movements. Mom's twin sister with tremor attributed to alcoholism. Has had multiple med trials. On propranolol ER 60 mg daily not sure how much it helps. No etoh due to history of pancreas problems. Prior prescriptions in records: - Cd/ld 25/100 CR BID 06/17/19 - Primidone 25 mg 4xday 10/11/19 and 06/12/20 - Trihexyphenidyl (Dr. Davis, unsure response) - Keppra - Flexeril Medications: Current Outpatient Medications Medication Sig Dispense Refill propranolol HCl (PROPRANOLOL ORAL) Take 1 capsule by mouth once daily. promethazine (PHENERGAN) 25 mg tablet Take 1 tablet by mouth every 6 hours as needed. 30 tablet 1 prazosin (MINIPRESS) 1 mg cap Take 1 capsule by mouth daily at bedtime. (Patient not taking: Reported on 06/01/2024) 30 capsule 2 triamterene-hydrochlorothiazide (DYAZIDE) 37.5-25 mg per capsule Take 1 capsule by mouth once daily. (Patient not taking: Reported on 05/30/2021) 30 capsule 11 No current facility-administered medications for this visit. ROS ROS: His ROS was positive for that mentioned in the HPI. Otherwise a 10-point ROS was completed andwas negative. ALLERGIES Allergen Reactions Acetaminophen GI Upset, Other: See Comments headaches Duloxetine Other: See Comments Made him Duragesic [Fentanyl] GI Upset Gabapentin Vomiting Reglan [Metoclopram* Mental Status Change Robaxin [Methocarba* Vomiting Tramadol ultram flu symptoms Past Medical History: PAST MEDICAL HISTORY Diagnosis Date Foot drop, right s/p back injury Generalized anxiety disorder Anxiety, Generalized Generalized osteoarthrosis, unspecified site History of pancreatitis 1 bout in 2004--no cause found; no recurrences LUMB/LUMBOSAC DISC DEGEN 01/18/2002 LUMBOSACRAL NEURITIS NOS 01/18/2002 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 Social History: Social History Tobacco Use Smoking status: Former Smokeless tobacco: Never Tobacco comments: quit 1980 Substance Use Topics Alcohol use: No Drug use: No No etoh Objective 06/01/24 1447 Pulse: 88 SpO2: 97% Weight: 101.6 kg (224 lb) Height: 193 cm (6' 4) Physical Examination General Appearance: Well appearing, alert, in no acute distress, well-hydrated, well nourished. Head: Normocephalic Neck: Supple Heart: RRR Peripheral Pulses: Normal Neurologic Examination Mental Status: He is alert. He is fully oriented. Attention is intact. Recent and remote memory is intact. Language shows normal comprehension and fluency. Praxis is normal. Affect is appropriate. Cranial Nerves: Pupils are equal and reactive to light. Extraocular movements show full and smooth pursuits. No nystagmus. Visual fajardo are full to confrontation. Facial sensation is intact. Facial activation is symmetric. Hearing is intact to conversation. There is mild hypomimia. There is mild hy pophonia. There is no dysarthria. Tongue is midline. Palate elevates symmetrically. Shoulder shrug is mildly delayed on right. Motor: Muscle bulk is normal. Bilateral foot drop worse on right where there is minimal movement. Severe bilateral rest tremor mild in LEs. Mild kinetic tremor. R>L postural re- emergent tremor. Mod chin and tongue tremors. Mild-mod R mild left bradykinesia. Mild RUE rigidity. Sensory: Intact to fine touch and vibration at ankles Reflex: Biceps and brachioradialis is 1+ bilaterally. Patellar reflex 1+ bilaterally. Achilles 0 bilaterally. Coordination: Finger to nose is smooth without ataxia. Gait/station: Stands with 1 person assist. Walks with a cane. Severe stooped posture at low back, steppage gait R>L left leg, very abnormal appearing though more lumbar related than parkinsonian DATA REVIEWED Actual films/image/tracing reviewed and summarized as follows: MRI C-spine 01/02/22 mild-mod degenerative changes without severe stenosis Old records reviewed and summarized as follows: TSH 2.5 Dr. Lilly 09/20/20: Mr. Martin is a right-handed 60 year old male with essential tremor. On exam noted to have prominent right hand resting tremor, bilateral upper extremity action and postural tremors. There is he endorses hyposmia and REM sleep behavior disorder so need to monitor for development of parkinsonism. For tremors he has tried and not tolerated propranolol, Sinemet, and primidone. Tremors are quite bothersome. Since he has failed tremor medications he is interested in surgical options. History of trauma from injury in 1983 and from childhood. He has great distress regarding his overall disability related to his tremors and injury. At this point his mood symptoms are likely worsening the tremors and surgery is not likely to have a good outcome and likely would not be approvedfor surgery. He is agreeable to start Cymbalta and see psychology. He will consider seeing 's psychiatrist. Elidia Gamboa [employer] 05/30/21 and 07/11/21: Ordered MRI C-spine but unable to complete, deferred EMG as patient notes that made tremor worse, follow up with CNR for tremor. MRI L-spine 06/06/15 Extensive postsurgical change with residual deformity. There is elevated T2 signal intensity at T12-L1 within the disc space but there is no paraspinous soft tissue abscess or other abnormality. I suspect this is more likely degenerative signal than appliance service representative of discitis. I see no sign of osteomyelitis. There is no evidence of mass. 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 His examination demonstrates R>L tremor predominant parkinsonism. We discussed the presentation and why it is consistent with PD. Tremor preceded by several years ofanosmia and RBD, started with unilateral rest tremor, and has slowly progressed ever since. Explained PD including pathophysiology, potential symptoms, and treatment approach. Explained medications may treat symptoms but do not alter the course of the condition. I explained the importance of exercise in maintaining independence Treatment has been limited by side effects to date. Can stop propranolol with lack of benefit. Willretry levodopa but add extra carbidopa to try to help with nausea. Can slowly titrate cd/ld 25/100 up to 2 pills three times a day depending on response, using extra carbidopa 25 mg TID to help with the nausea. Offered Lexapro at first for mood but then they noted poor sleep and appetite so will try mirtazapine instead, titrate to 15 mg QHS. He should return to see me in 3 months. I spent 60 minutes with the patient, >50% of that time was devoted to counseling and coordination of care regarding the above issues. Evan Walden MD [facility] Neurology documented in this encounterR[facility]07-25-[facility]22 History of Present illness Narrative* Sabrina Acosta MA - 02/24/2022 9:37 AM EDT POPULATION HEALTH NAVIGATION OUTREACH Action/FYI Spoke to [...] 24, 2022 9:37 AM documented in this encounterRiverside [facility] Hospital06-09-2022 History of Present illness Narrative* Nisa Hilario APRN.[employer] - 01/09/2022 10:59 AM EDT SUBJECTIVE: Olga Martin presents to [facility] Pain Management Department for a follow up appointment for MRI results. Since the last visit, Olga Martin states the pain has been worse. Current pain intensity is 6 josiah scale of 0-10. Pain located in neck area and radiates down the anterior and lateral aspect of the bilateral arm tothe level of the fingers. Pain described as aching and sharp The patient Reports numbness and tingling. Symptoms interfere with physical activity, sleeping, bathing, driving, cooking, household cleaning,reaching for shelves and lifting. Pain is exacerbated [...] right shoulder and down the right arm. Hereports the pain in the right shoulder is from the shaking of the hand and arm and he is now experiencing clicking of the tongue Reviewed cervical MRI. Dr. Corbin recommends Right Paramedian C6-C7 Interlaminar Cervical Epidural [...] frustrated. Patient reports he was admitted to [facility] for appendicitis with perforation in Sep 2021, he developed a wound infection and was dealing with that for several months. This caused a delay in follow up visits He struggles with transportation issues and lives in [place]. Patient has a history of spinal fracture [...] All prescriptions have been APPROPRIATELY filled. No suspiciousactivity was identified. 01/09/2022 by Nisa Hilario APRN.[employer] Narcotic Agreement reviewed and signed?: N/A on [...] which included preparing to see the patient, [id number] patient care, completing clinical documentation, performing a medically appropriate examination and ordering medications, tests, or procedures. The above plan and management options were discussed at length with patient. Patient is in agreement with the above and verbalized understanding. Nisa Hilario APRN, CNP January 09, 2022 documented in this encounterRiverside [facility]06-03-2022 Miscellaneous Notes* Telephone Encounter - Saba Ny RN - 01/03/2022 2:51 PM EDT Results sent via PhotoBox at this time * Telephone Encounter - Nisa Hilario APRN.CNP - 01/03/2022 2:30 PM EDT Injection order signed off Please call patient to schedule procedure * Telephone Encounter - Saba Ny RN - 01/03/2022 2:[address] Corbin reviewed patient's MRI Cervical Spine Dr. Corbin notes multilevel degenerative changes of the cervical spine Multiple levels of osteophyte formation rand facet joint aortopathy resulting in varying degree of foraminal stenosis and spinal canal stenosis Dr. Corbin recommends Right Paramedian C6-C7 Interlaminar Cervical Epidural Injection to help reduce patient's right upper extremity radicular symptom documented in this encounterRiverside [facility]06-02-2022 Nurse Note* Josiane Goff RN - 01/02/2022 11:40 AM EDT MRI PROCEDURE NOTE PATIENT NAME: Olga Martin [...] Cane, Wheelchair, Crutches, etc.)? Yes, Patient High Riskfor Falls What interventions were put in place [...] 2022 TIME: 12:26 PM documented in this encounterRiverside [facility] Hospital04-14-2022 Miscellaneous Notes* Telephone Encounter - Kera Worrell LPN - 11/14/2021 4:46 PM EDT Per other encounter did call pt 2 time to arrange hospital follow up. He did go back to ER for backpain. Called again with no response. * Telephone Encounter - LESLEE Ramirez - 11/12/2021 3:52 PM EDT TC to patient. No answer. Left message to return call and ask to speak with a nurse. LESLEE Ramirez * Telephone Encounter - Nicole Seymour APRN.NORA - 11/12/2021 3:39 PM EDT so does not appear any fractures or acute findings on XR. So if severe pain previously noted at 05/12 and he can not move would recommend ER to evaluate and treat. * Telephone Encounter - LESLEE Ramirez - 11/12/2021 3:31 PM EDT Looking at the Continuity of Care document from [facility] on 11/04/21 there was an X- ray done of the lowerlumbar spine due to the patient sitting down hard on the commode. Per document, FINDINGS: Normal lumbar lordosis. There [...] review and advise. Thank you. LESLEE Ramirez * Telephone Encounter - Nicole Seymour APRN.CNS - 11/12/2021 3:08 PM EDT Check [facility] records to see if this was addressed. If severe symptoms presently then recommend ER visit to evaluate and treat * Telephone Encounter - Felicia Walter LPN - 11/12/2021 2:20 PM EDT Moriah from [facility] Home Health OT calling she was at patient home to do OT eval one time visit. Patient was having so much lumbar area back pain rated at 10 out of a 10, could hardly get out out of bed. .Patient had told her he had fallen in bathroom while he was in the hospital. Patient said he has toget a women's garment fitter on his back pain before he can do anything. She is not aware of him taking any medications for his back pain. documented in this encounterRiverside [facility] Hospital04-12-2022 History of Present illness Narrative* Kera Worrell LPN - 11/12/2021 2:16 PM EDT Message left again for return call to complete TCM note and arrange hospital follow up. * Kera Worrell LPN - 11/11/2021 1:43 PM EDT Message left for pt to return call to a nurse to complete TCM note and arrange hospital follow up with pcpc's BUTCHER OR [employer]GOODS MAKER. documented in this encounterRiverside Methodist Hospital04-07-2022 Miscellaneous Notes* Telephone Encounter - Lita Esquivel LPN - 11/07/2021 11:13 AM EDT Hospital information received, will make contact next week. Lita Esquivel LPN * Telephone Encounter - Li Spencer Ma - 11/06/2021 4:30 PM EDT Ruthy notified, will follow-up to see if f/u is scheduled after discharge date * Telephone Encounter - Linda Dominguez MD - 11/06/2021 1:21 PM EDT Will follow along with HH Make sure he gets a follow up appointment * Telephone Encounter - Felicia Walter LPN - 11/06/2021 12:43 PM EDT Ruthy from [facility] Home Health calling received orders for alf, PT/OT. Patient is discharging from TCU on 11/09 he had appe with preformation and abscess surgery done by Dr Taveras. Asking if PCP would follow patient and sign orders? Please advise documented in this encounterRiverside [facility] Hospital11-10-2021 History of Present illness Narrative* Kamilla Banerjee RT(R) - 06/12/2021 10:00 AM EST Radiology Service Progress Note PATIENT NAME: Olga Martin DATE OF SERVICE: June 12, 2021 TIME: 10:31 AM PATIENT IDENTITY VERIFICATION COMPLETED USING TWO (2) IDENTIFIERS: Name and Date of confirmedby patient verbally. FALL SCREENING: Has the patient had 2 falls in the last year or 1 fall with injury or currently using an Ambulatory Assistive Device (Walker, Cane, Wheelchair, Crutches, etc.)? Yes, Patient High Riskfor Falls What interventions were put in place to prevent falls during this visit? Offered Assistance with Transfers/Clothing and Instructed Patient to Remain Seated (Not on Exam Table) Until Exam PATIENT GENDER DATA: Male PATIENT RELEVANT IMPLANT DATA REVIEWED: Not Applicable RADIOLOGY DEPARTMENT: General X-ray: Exam(s) Completed: Upper Extremity X- Ray(s): Shoulder, AP / TRUE AP / AXILLARY right PERIPHERAL IV DATA: Not applicable SIGNED BY: RT Jennifer(R) June 12, 2021 10:31 AM documented in this encounterRiverside [facility] Hospital11-10-2021 Nurse Note* Miranda Ramos RN - 06/12/2021 10:00 AM EST Message left on Voicemail to arrive @ 1040 & have taxi cab driver home for MRI tomorrow. Nestor Ramos RN [facility]11-10-2021 Nurse Note* Miranda Ramos RN - 06/12/2021 10:00 AM EST Message left on Voicemail to arrive @ 1040 & have taxi cab driver home for MRI tomorrow. Nestor Ramos RN [facility]* Diagnosis Onset Date Resolution Status Intra-abdominal abscess acut e Postoperative wound infection acute Dehydration resolved Diverticulum of small intestine resolved Debility acute Essential tremor acute Intra-abdominal abscess acut e Pancreatitis acute Postoperative wound infection acute Chronic low back pain chroni c Hypertension chronic [facility] Work Phone: Evaluation note* Diagnosis Spinal stenosis of cervical region Spinal stenosis in cervical region documented in this encounter [facility]* Diagnosis Spinal stenosis of cervical region- Primary Spinal stenosis in cervical region documented in this encounter [facility]* Diagnosis Abnormal involuntary movement- Primary Abnormal involuntary movements Spinal stenosis of cervical region Spinal stenosis in cervical region Cervicalgia documented in this encounter [facility]* Diagnosis Onset Date Resolution Status Dehydration resolved Diverticulum of small intestine resolved Intra-abdominal abscess reso lved Postoperative wound infection resolved Debility acute Hypertension chronic Chronic low back pain resolv ed Essential tremor resolved Intra-abdominal abscess reso lved Pancreatitis resolved Postoperative wound infection resolved Draining postoperative wound acute Postoperative wound infection resolved Open wound of abdomen acute Open wound of abdomen acute Open wound of abdomen acute Tremor acute Chronic lower back pain 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 Establishing care with new doctor, encounter for noneactive Essential hypertension nonea [facility] Work Phone: Evaluation note* Diagnosis Onset Date Resolution Status Carpal tunnel syndrome, right acute Cauda equina syndrome chroni c Cerebrovascular small vessel disease chronic Essential tremor chronic Foot drop, bilateral chronic Rubral tremor chronic Carpal tunnel syndrome, right acute Cauda equina syndrome chroni c Cerebrovascular small vessel disease chronic Essential tremor chronic Foot drop, bilateral chronic Rubral tremor chronic [facility] Work Phone: Evaluation note* Diagnosis Onset Date Resolution Status Essential tremor chronic Rubral tremor chronic [facility] Work Phone: Evaluation note* Diagnosis Onset Date Resolution Status Rubral tremor chronic PTSD (post-traumatic stress disorder) acute Tremor acute Chronic lower back pain 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 Essential hypertension nonea wvive [facility] Work Phone: Evaluation note* Diagnosis Onset Date Resolution Status PTSD (post-traumatic stress disorder) acute Tremor acute Chronic lower back pain 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 Essential hypertension nonea ctive Tremor acute Severe obstructive sleep apnea noneactive Monaco's cerebellar degeneration acute MADDIE (obstructive sleep apnea) acute [facility] Work Phone: Evaluation note* Diagnosis Chronic right shoulder pain Pain in joint, shoulder region documented in this encounter [facility] note* Diagnosis Parkinson's disease without dyskinesia or fluctuating manifestations (HCC)- Primary Anxiety and depression Dysthymic disorder Insomnia, unspecified type documented in this encounter [facility] noteNo assessment information availableWSelect Medical [facility] [place] Work Phone: Hospital Discharge instructionsW[facility] [place] Work Phone: Reason for referral (narrative)* Diagnostic Procedure Only (Routine) - Closed Specialty Diagnoses / Procedures Referred By Contac t Referred To Contact XR IMAGING Diagnoses Chronic right shoulder pain Procedures XR SHOULDER GENERAL 3V OR MORE AP/TRUE AP/OTHER RT X-RAY SHOULDER COMPLET MIN 2 VIEWS Elidia Gamboa APRN.CNP [id number] [id number] Xr Imaging [facility] Referral ID Status Reason Start Date Expiration Date V isits Requested Visits Authorized Closed Auto-Generate d Referral 05/30/2021 06/29/2022 1 1 [facility] for referral (narrative)No reason for referral information availableWSelect Medical [facility] [place] Work Phone: Reason for visit Narrative* Diagnostic Procedure Only (Routine) - Closed Specialty Diagnoses / Procedures Referred By Contac t Referred To Contact XR IMAGING Diagnoses Chronic right shoulder pain Procedures XR SHOULDER GENERAL 3V OR MORE AP/TRUE AP/OTHER RT X-RAY SHOULDER COMPLET MIN 2 VIEWS Elidia Gamboa APRN.CNP [address] [phone] Xr Imaging [facility] Referral ID Status Reason Start Date Expiration Date V isits Requested Visits Authorized [id number] Closed Auto-Generate d Referral 05/30/2021 06/29/2022 1 1 [facility] Chief Complaint and Reason for Visit Chief Complaint APPENDICITIS WITH RI CROPERFORATION ACUTE APPENDICITIS ACUTE APPENDICITIS ACUTE APPENDICITIS ACUTE APPENDICITIS ACUTE APPENDICITIS ACUTE APPENDICITIS ACUTE APPENDICITIS ACUTE APPENDICITIS ACUTE APPENDICITIS ACUTE APPENDICITIS ACUTE APPENDICITIS ACUTE APPENDICITIS ACUTE APPENDICITIS ACUTE APPENDICITIS ACUTE APPENDICITIS ACUTE APPENDICITIS ACUTE APPENDICITIS ACUTE APPENDICITIS ACUTE APPENDICITIS ACUTE APPENDICITIS ACUTE APPENDICITIS ACUTE APPENDICITIS ACUTE APPENDICITIS ACUTE APPENDICITIS ACUTE APPENDICITIS ACUTE APPENDICITIS ACUTE APPENDICITIS ACUTE APPENDICITIS ACUTE APPENDICITIS ACUTE APPENDICITIS ACUTE APPENDICITIS ACUTE APPENDICITIS ACUTE APPENDICITIS ACUTE APPENDICITIS ACUTE APPENDICITIS ACUTE APPENDICITIS ACUTE APPENDICITIS ACUTE APPENDICITIS ACUTE APPENDICITIS ACUTE APPENDICITIS ACUTE APPENDICITIS ACUTE APPENDICITIS Reason for Visit Intra-abdominal absc ess Postoperative wound infection Dehydration Diverticulum of small intestine Debility Essential tremor Intra-abdominal abscess Pancreatitis Postoperative wound infection Chronic low back pain Hypertension Chief Complaint APPENDICITIS WITH RI CROPERFORATION ACUTE APPENDICITIS ACUTE APPENDICITIS ACUTE APPENDICITIS ACUTE APPENDICITIS ACUTE APPENDICITIS ACUTE APPENDICITIS ACUTE APPENDICITIS ACUTE APPENDICITIS ACUTE APPENDICITIS ACUTE APPENDICITIS ACUTE APPENDICITIS ACUTE APPENDICITIS ACUTE APPENDICITIS ACUTE APPENDICITIS ACUTE APPENDICITIS ACUTE APPENDICITIS ACUTE APPENDICITIS ACUTE APPENDICITIS ACUTE APPENDICITIS ACUTE APPENDICITIS ACUTE APPENDICITIS ACUTE APPENDICITIS ACUTE APPENDICITIS ACUTE APPENDICITIS ACUTE APPENDICITIS ACUTE APPENDICITIS ACUTE APPENDICITIS ACUTE APPENDICITIS ACUTE APPENDICITIS ACUTE APPENDICITIS ACUTE APPENDICITIS ACUTE APPENDICITIS ACUTE APPENDICITIS ACUTE APPENDICITIS ACUTE APPENDICITIS ACUTE APPENDICITIS ACUTE APPENDICITIS ACUTE APPENDICITIS ACUTE APPENDICITIS ACUTE APPENDICITIS ACUTE APPENDICITIS ACUTE APPENDICITIS back pain Reason for Visit Intra-abdominal absc ess Postoperative wound infection Dehydration Diverticulum of small intestine Debility Essential tremor Intra-abdominal abscess Pancreatitis Postoperative wound infection Chronic low back pain Hypertension Chief Complaint ACUTE APPENDICITIS ACUTE APPENDICITIS ACUTE APPENDICITIS ACUTE APPENDICITIS ACUTE APPENDICITIS ACUTE APPENDICITIS ACUTE APPENDICITIS ACUTE APPENDICITIS ACUTE APPENDICITIS ACUTE APPENDICITIS ACUTE APPENDICITIS ACUTE APPENDICITIS ACUTE APPENDICITIS ACUTE APPENDICITIS ACUTE APPENDICITIS ACUTE APPENDICITIS ACUTE APPENDICITIS ACUTE APPENDICITIS ACUTE APPENDICITIS ACUTE APPENDICITIS ACUTE APPENDICITIS ACUTE APPENDICITIS ACUTE APPENDICITIS ACUTE APPENDICITIS ACUTE APPENDICITIS back pain F/U appy after hospital D/C check incision, running low grade temp WOUND CHECK WOUND CHECK BUTCHER OR SMALLGOODS MAKER, EST. CARE, PT NEEDS NPP TREMOR Reason for Visit Dehydration Diverticulum of small intestine Intra-abdominal abscess Postoperative wound infection Debility Hypertension Chronic low back pain Essential tremor Intra-abdominal abscess Pancreatitis Postoperative wound infection Draining postoperative wound Postoperative wound infection Open wound of abdomen Open wound of abdomen Open wound of abdomen Tremor Chronic lower back pain Establishing care with new doctor, encounter for Essential hypertension Chief Complaint TREMORS RT HAND NUMBNESS & WEAKNESS SEVERE PAIN IN HANDS Reason for Visit Carpal tunnel syndro me, right Cauda equina syndrome Cerebrovascular small vessel disease Essential tremor Foot drop, bilateral Rubral tremor Carpal tunnel syndrome, right Cauda equina syndrome Cerebrovascular small vessel disease Essential tremor Foot drop, bilateral Rubral tremor Chief Complaint BOTOX INJECTION 4 M FU Reason for Visit Essential tremor Rubral tremor Chief Complaint BOTOX INJECTION 4 M FU G47.61 Periodic limb movement disorder 6 M FU Reason for Visit Rubral tremor PTSD (post-traumatic stress disorder) Tremor Chronic lower back pain Essential hypertension Chief Complaint 4 M FU G47.61 Periodic limb movement disorder 6 M FU DISCUSS SLEEP STUDY RESULTS Sleep problems MADDIE Reason for Visit PTSD (post-traumatic stress disorder) Tremor Chronic lower back pain Essential hypertension Tremor Severe obstructive sleep apnea Monaco's cerebellar degeneration MADDIE (obstructive sleep apnea) Chief Complaint 4 M FU G47.61 Periodic limb movement disorder 6 M FU DISCUSS SLEEP STUDY RESULTS Sleep problems MADDIE MADDIE,CPAP Reason for Visit PTSD (post-traumatic stress disorder) Tremor Chronic lower back pain Essential hypertension Tremor Severe obstructive sleep apnea Monaco's cerebellar degeneration MADDIE (obstructive sleep apnea) Chief Complaint Admit Date NEURO SX July 31, 2024 9:59am HANDICAP PLACARD/HIGH BP/SICK August 162024 1:57pm RIGHT HIP FRACTURE September 26, 2024 7:17pm fall September 26, 2024 7:21pm RIGHT HIP FRACTURE September 27, 2024 5:57am RIGHT HIP FRACTURE September 27, 2024 8:02am RIGHT HIP FRACTURE September 28, 2024 7:17am RIGHT HIP FRACTURE September 28, 2024 8:07am RIGHT HIP FRACTURE September 29, 2024 7:51am RIGHT HIP FRACTURE September 29, 2024 8:01am RIGHT HIP FRACTURE September 30, 2024 10:59am LAB WORK October 04, 2024 5:00 am LAB WORK October 10, 2024 6:4 0am DETENTION DISCHARGE October 24 7:54am RT LOWER LEG SWELLING November 09, 2024 10 :45am Reason for Visit Admit Date PTSD (post-traumatic stress disorder) Edgardo emmanuel 2024 1:57pm Tremor August 16, 2024 1 :57pm Chronic lower back pain August 16 1:57pm Severe obstructive sleep apnea August 032024 1:57pm Essential hypertension August 16 1:57pm Acute febrile illness August 16, 2024 1:57pm Acute respiratory failure September 26, 2024 7:17pm Hip fracture September 26, 2024 7:17pm Uvular swelling September 26, 2024 7:17pm Fracture, intertrochanteric, right femur September 26, 2024 7:17pm PTSD (post-traumatic stress disorder) [facility] 2024 7:54am Uvular swelling October 24, 2024 7:5 4am Swelling of right lower extremity October 24, 2024 7:54am Status post hip surgery October 24, 2024 7:54am Essential hypertension October 24, 2024 7:54am Hospital discharge follow-up October 24, 2024 7:54am Chief Complaint Admit Date incontinence bowel/bladder April 5:27pm Family History No Family History Records Found Relationship Condition Age at Onset Recorded Date/T ivan father Malignant neoplasm Unknown mother Parkinson's disease Unknown Relationship Condition Age at Onset Recorded Date/T ivan Not Specified Psychiatric care Unknown father Malignant neoplasm Unknown Hypertension Unknown mother Parkinson's disease Unknown Anxiety Unknown Asthma Unknown Arthritis Unknown Osteoporosis Unknown Advance Directives No Advanced Directives Records Found Advance Directive Response Recorded Date/ Time Advance Directives No July 08, 2017 11:39pm Living Will No October 24, 2021 11:49am Power of Pharmacy Helper Yes October 24 11:49am Advance Directive Response Recorded Date/ Time Name of Medical Power of Pharmacy Helper Briana Martin , October 24, 2021 11:49am Advance Directives No November 12 10:38am Living Will No November 13, 2021 6:29am Power of Pharmacy Helper No November 13 6:29am Advance Directive Response Recorded Date/ Time Advance Directives No February 25 2:05pm Living Will No August 13 11:17am Power of Pharmacy Helper No August 13, 2022 11:17am Advance Directive Response Recorded Date/ Time Advance Directives No March 12, 2023 7:16am Living Will No March 12 7:16am Power of Pharmacy Helper No March 12 7:16am Advance Directive Response Recorded Date/ Time Advance Directives No March 12, 2023 8:16am Living Will No March 12 8:16am Power of Pharmacy Helper No March 12 023 8:16am Advance Directive Response Recorded Date/ Time Living Will No July 31 11:20am Do you have a Healthcare Power of Pharmacy Helper? No July 31, 2024 11:20am Living Will No September 26 9:47pm Do you have a Healthcare Power of Pharmacy Helper? No September 26, 2024 9:47pm Advance Directives No March 12, 2023 8:16am Advance Directive Response Recorded Date/ Time Do you have a Healthcare Power of Pharmacy Helper? Yes April 14, 2025 6:36pm Advance Directives No March 12, 2023 8:16am Summary Purpose Reason for Referral Specialty Diagnoses / Procedures Referred By Contac t Referred To Contact MR IMAGING Diagnoses Spinal stenosis of cervical region Procedures MRI CERVICAL SPINE WO IVCON MRI SPINAL CANAL CERVICAL W/O CONTRAST MATRL Kristopher Corbin MD [address] [id number] [place] [address] Mr Imaging Referral ID Status Reason Start Date Expiration Date V isits Requested Visits Authorized [id number] Closed Auto-Generate d Referral 08/26/2021 09/25/2022 1 1 Specialty Diagnoses / Procedures Referred By Vijaya t Referred To Contact Diagnoses Abnormal involuntary movement Procedures CONSULT TO FUNCTIONAL MOVEMENT DISORDERS (FMD) OFFICE/OUTPATIENT [facility] 60-74 MINUTES Nisa Hilario, HEALTH COUNSELOR.[employer] [address] [place] [address] Referral ID Status Reason Start Date Expiration Date Visits Requested Visits Authorized [id number] Authorized PCP Requested Referral 01/09/2022 01/09/2023 1 [...] or prosecute any alcohol or drug abuse patient.[facility] the event this information is protected by the Federal Confidentiality of Alcohol and Drug Abuse Patient Records regulations: The Federal rules restrict any use of the information to criminally investigate or prosecute any alcohol or drug abuse patient.[facility] the event this information is protected by the Federal Confidentiality of Alcohol and Drug Abuse Patient Records regulations: The Federal rules restrict any use of the information to criminally investigate or prosecute any alcohol or drug abuse patient.[facility] the event this information is protected by the Federal Confidentiality of Alcohol and Drug Abuse Patient Records regulations: The Federal rules restrict any use of the information to criminally investigate or prosecute any alcohol or drug abuse patient.[facility] the event this information is protected by the Federal Confidentiality of Alcohol and Drug Abuse Patient Records regulations: The Federal rules restrict any use of the information to criminally investigate or prosecute any alcohol or drug abuse patient.[facility] the event this information is protected by the Federal Confidentiality of Alcohol and Drug Abuse Patient Records regulations: The Federal rules restrict any use of the information to criminally investigate or prosecute any alcohol or drug abuse patient.[facility] the event this information is protected by the Federal Confidentiality of Alcohol and Drug Abuse Patient Records regulations: The Federal rules restrict any use of the information to criminally investigate or prosecute any alcohol or drug abuse patient.[facility] the event this information is protected by the Federal Confidentiality of Alcohol and Drug Abuse Patient Records regulations: The Federal rules restrict any use of the information to criminally investigate or prosecute any alcohol or drug abuse patient.[facility] the event this information is protected by the Federal Confidentiality of Alcohol and Drug Abuse Patient Records regulations: The Federal rules restrict any use of the information to criminally investigate or prosecute any alcohol or drug abuse patient.[facility] the event this information is protected by the Federal Confidentiality of Alcohol and Drug Abuse Patient Records regulations: The Federal rules restrict any use of the information to criminally investigate or prosecute any alcohol or drug abuse patient.[facility] the event this information is protected by the Federal Confidentiality of Alcohol and Drug Abuse Patient Records regulations: The Federal rules restrict any use of the information to criminally investigate or prosecute any alcohol or drug abuse patient.[facility] the event this information is protected by the Federal Confidentiality of Alcohol and Drug Abuse Patient Records regulations: The Federal rules restrict any use of the information to criminally investigate or prosecute any alcohol or drug abuse patient.[facility] Reason for Visit (unrecogniz ed section and content) Reason Comments home health calling Reason Onset Date Comments Transition Of Care 11/11/2021 Reason Comments home health OT calling severe backpain Specialty Diagnoses / Procedures Referred By Vijaya t Referred To Contact MR IMAGING Diagnoses Spinal stenosis of cervical region Procedures MRI CERVICAL SPINE WO IVCON MRI SPINAL CANAL CERVICAL W/O CONTRAST Kristopher Reaves MD [address] [facility] [place] [address] Mr Imaging Referral ID Status Reason Start Date Expiration Date V isits Requested Visits Authorized [id number] Closed Auto-Generate d Referral 08/26/2021 09/25/2022 1 1 Reason Comments Results MRI Cervical Spine Reason Comments Results - Mri Reason Onset Date Comments Population Health Navigation Outreach 02/24/2022 [facility] Reason Comments New Patient Having hand tremors and involuntary tongue movements. Care Teams (unrecognized sec tion and content) Roofer [employer] Relationship Specialty Start Date End Date Linda Dominguez MD [address] [place] [address] PCP - General Internal Medicine 10/20/13 [employer]er [employer] Relationship Specialty Start Date End Date Linda Dominguez MD [address] [place] [address] PCP - General Internal Medicine 10/20/13 [employer]er [employer] Relationship Specialty Start Date End Date Linda Dominguez MD [address] [place] [address] PCP - General Internal Medicine 10/20/13 [employer]er [employer] Relationship Specialty Start Date End Date Linda Dominguez MD [address] [place] [address] PCP - General Internal Medicine 10/20/13 Ro[employer]er [employer] Relationship Specialty Start Date End Date Linda Dominguez MD [address] [place] [address] PCP - General Internal Medicine 10/20/13 [employer]er [employer] Relationship Specialty Start Date End Date Linda Dominguez MD [address] [facility] [address] PCP - General Internal Medicine 10/20/13 [employer]er [employer] Relationship Specialty Start Date End Date Linda Dominguez MD [address] [facility] [address] PCP - General Internal Medicine 10/20/13 [employer]er [employer] Relationship Specialty Start Date End Date Linda Dominguez MD [address] [facility] [address] PCP - General Internal Medicine 10/20/13 [employer]er [employer] Relationship Specialty Start Date End Date Maci Marino MD [address] [place] [id number] PCP - General Internal Medicine 02/24/22 Team Status: Active Member Role Status Dates Dr. Linda Dominguez MD Family Provider Active Dr. Zoraida Marino MD Primary Care Provider Active Team Status: Inactive Member Role Status Dates Dr. Zoraida Marino MD Primary Care Provider, Referri ng Provider Active Dr. Todd Vieira MD Attending Provider Active Team Status: Active Member Role Status Dates Dr. Zoraida Marino MD Primary Care Provider, Referri ng Provider Active Dr. Nathan Taveras MD Attending Provider, Other Provi donovan Active Team Status: Inactive Member Role Status Dates Dr. Zoraida Marino MD Primary Care Provider, Referri ng Provider Active Dr. Nathan Taveras MD Attending Provider Active Team Status: Inactive Member Role Status Dates Dr. Zoraida Marino MD Primary Care Provider Active Dr. Todd Vieira MD Attending Provider Active Team Status: Inactive Member Role Status Dates Dr. Zoraida Marino MD Primary Care Provider Active Dr. Todd Vieira MD Attending Provider, Referring Provider Active Team Status: Inactive Member Role Status Dates Dr. Zoraida Marino MD Primary Care Pro vider, Attending Provider, Referring Provider Active Team Status: Inactive Member Role Status Dates Dr. Zoraida Marino MD Primary Care Provider, Referri ng Provider Active Glenis Suarez [employer], [employer] OR [employer]-C Attending Provider Active Team Status: Inactive Member Role Status Dates Dr. Zoraida Marino MD Primary Care Provider, Attendi ng Provider Active Team Status: Inactive Member Role Status Dates Dr. Zoraida Marino MD Primary Care Provider Active Glenis Suarez [employer], BUTCHER OR [employer]-C Attending Provider Active [employer]er [employer] Relationship Specialty Start Date End Date Linda Dominguez MD [address] [place] [address] PCP - General Internal Medicine 10/20/13 02/23/22 [employer]er [employer] Relationship Specialty Start Date End Date Zoraida Marino MD PCP - General Internal Medicine 02/24/22 Team Status: Active Member Role Status Dates Dr. Zoraida Marino MD Primary Care Provider Active Team Status: Inactive Member Role Status Dates Dr. Zoraida Marino MD Primary Care Provider Active Start: July 31, 2024 End: July 31, 2024 Dr. Baljit Fleming DO Attending Provider Active Start: July 31, 2024 End: July 31, 2024 Dr. Baljit Fleming DO Emergency Provider Active Start: July 31, 2024 End: July 31, 2024 Team Status: Inactive Member Role Status Dates Dr. Zoraida Marino MD Primary Care Provider Active Start: August 16, 2024 End: August 16, 2024 Dr. Zoraida Marino MD Attending Provider Active Start: August 16, 2024 End: August 16, 2024 Dr. Zoraida Marino MD Referring Provider Active Start: August 16, 2024 End: August 16, 2024 Team Status: Inactive Member Role Status Dates Dr. Zoraida Marino MD Primary Care Provider Active Start: September 26, 2024 End: September 30, 2024 Dr. Baljit Fleming DO Emergency Provider Active Start: September 26, 2024 End: September 30, 2024 Dr. Jean Claude Luther DO Admit Provider Active Star t: September 26, 2024 End: September 30, 2024 Dr. Jean Claude Luther DO Other Provider Active Star t: September 26, 2024 End: September 30, 2024 Dr. Shanon Bravo , Attending Provider Active S tart: September 26, 2024 End: September 30, 2024 Dr. Tricia Taylor MD Other Provider Active Star t: September 26, 2024 End: September 30, 2024 Dr. Elijah Mac MD Other Provider Active Sta rt: September 26, 2024 End: September 30, 2024 Team Status: Active Member Role Status Dates Dr. Zoraida Marino MD Primary Care Provider Active Start: September 26, 2024 Dr. Baljit Fleming DO Emergency Provider Active Start: September 26, 2024 Dr. Jean Claude Luther DO Attending Provider Active Start: September 26, 2024 Team Status: Active Member Role Status Dates Dr. Zoraida Marino MD Primary Care Provider Active Start: September 27, 2024 Dr. Baljit Fleming DO Emergency Provider Active Start: September 27, 2024 Dr. Jean Claude Luther DO Admit Provider Active Star t: September 27, 2024 Dr. Jean Claude Luther DO Other Provider Active Star t: September 27, 2024 Dr. Elijah Mac MD Other Provider Active Sta rt: September 27, 2024 Dr. Tricia Taylor MD Attending Provider Active Start: September 27, 2024 Team Status: Active Member Role Status Dates Dr. Zoraida Marino MD Primary Care Provider Active Start: September 27, 2024 Dr. Baljit Fleming DO Emergency Provider Active Start: September 27, 2024 Dr. Jean Claude Luther DO Admit Provider Active Star t: September 27, 2024 Dr. Jean Claude Luther DO Other Provider Active Star t: September 27, 2024 Dr. Tricia Taylor MD Other Provider Active Star t: September 27, 2024 Dr. Elijah Mac MD Other Provider Active Sta rt: September 27, 2024 Dr. Dieudonne Esparza , Attending Provider Active S tart: September 27, 2024 Dr. Shanon Bravo , DO Referring Provider Active S tart: September 27, 2024 Team Status: Active Member Role Status Dates Dr. Zoraida Marino MD Primary Care Provider Active Start: September 28, 2024 Dr. Baljit Fleming DO Emergency Provider Active Start: September 28, 2024 Dr. Jean Claude Luther DO Admit Provider Active Star t: September 28, 2024 Dr. Jean Claude Luther DO Other Provider Active Star t: September 28, 2024 Dr. Elijah Mac MD Other Provider Active Sta rt: September 28, 2024 Dr. Derick Joiner MD Other Provider Active Start: September 28, 2024 Dr. Hugo Islas MD Other Provider Active Start: September 28, 2024 Dr. Ananda Boyle MD Other Provider Active Star t: September 28, 2024 Dr. Dieudonne Esparza , Other Provider Active Start : September 28, 2024 Dr. Chris Perez MD Other Provider Active Sta rt: September 28, 2024 Dr. Severino Cortez MD Other Provider Active St art: September 28, 2024 Dr. Polo Dixon MD Other Provider Active S tart: September 28, 2024 Dr. Lesvia Goldman MD Other Provider Active Start: September 28, 2024 Dr. Michael Tyler MD Other Provider Active Start : September 28, 2024 Dr. Stephane Flores MD Other Provider Active Start: September 28, 2024 Dr. Douglas Galdamez MD Other Provider Active Start : September 28, 2024 Dr. Shira Pizarro MD Other Provider Active Star t: September 28, 2024 Dr. Clarita Mercado MD Other Provider Active Sta rt: September 28, 2024 Dr. Abby Ames MD Other Provider Active Sta rt: September 28, 2024 Dr. Edvin Olmedo MD Other Provider Active Star t: September 28, 2024 Dr. Cruzito Fulton MD Other Provider Active St art: September 28, 2024 Dr. Esau Liriano MD Other Provider Active Star t: September 28, 2024 Dr. Brett Camp DO Other Provider Active St art: September 28, 2024 Dr. Davis Joseph MD Other Provider Active Start: September 28, 2024 Dr. Ewelina Rhoades MD Other Provider Active St art: September 28, 2024 Dr. William Henry , Other Provider Active Start: September 28, 2024 Dr. Prasanna Goldstein MD Other Provider Active Star t: September 28, 2024 Dr. Von Sanchez MD Other Provider Active Sta rt: September 28, 2024 Dr. Shanon Bravo DO Attending Provider Active S tart: September 28, 2024 Dr. Shanon Bravo DO Other Provider Active Start : September 28, 2024 Dr. Tricia Taylor MD Other Provider Active Star t: September 28, 2024 Team Status: Active Member Role Status Dates Dr. Zoraida Marino MD Primary Care Provider Active Start: September 28, 2024 Dr. Baljit Fleming DO Emergency Provider Active Start: September 28, 2024 Dr. Jean Claude Luther DO Admit Provider Active Star t: September 28, 2024 Dr. Jean Claude Luther DO Other Provider Active Star t: September 28, 2024 Dr. Elijah Mac MD Other Provider Active Sta rt: September 28, 2024 Dr. Derick Joiner MD Other Provider Active Start: September 28, 2024 Dr. Hugo Islas MD Other Provider Active Start: September 28, 2024 Dr. Ananda Boyle MD Other Provider Active Star t: September 28, 2024 Dr. Dieudonne Esparza DO Attending Provider Active S tart: September 28, 2024 Dr. Dieudonne Esparza DO Other Provider Active Start : September 28, 2024 Dr. Chris Perez MD Other Provider Active Sta rt: September 28, 2024 Dr. Severino Cortez MD Other Provider Active St art: September 28, 2024 Dr. Polo Dixon MD Other Provider Active S tart: September 28, 2024 Dr. Lesvia Goldman MD Other Provider Active Start: September 28, 2024 Dr. Michael Tyler MD Other Provider Active Start : September 28, 2024 Dr. Stephane Flores MD Other Provider Active Start: September 28, 2024 Dr. Douglas Galdamez MD Other Provider Active Start : September 28, 2024 Dr. Shira Pizarro MD Other Provider Active Star t: September 28, 2024 Dr. Clarita Mercado MD Other Provider Active Sta rt: September 28, 2024 Dr. Abby Ames MD Other Provider Active Sta rt: September 28, 2024 Dr. Edvin Olmedo MD Other Provider Active Star t: September 28, 2024 Dr. Cruzito Fulton MD Other Provider Active St art: September 28, 2024 Dr. Esau Liriano MD Other Provider Active Star t: September 28, 2024 Dr. Brett Camp , Other Provider Active St art: September 28, 2024 Dr. Davis Joseph MD Other Provider Active Start: September 28, 2024 Dr. Ewelina Rhoades MD Other Provider Active St art: September 28, 2024 Dr. William Henry , Other Provider Active Start: September 28, 2024 Dr. Prasanna Goldstein MD Other Provider Active Star t: September 28, 2024 Dr. Von Sanchez MD Other Provider Active Sta rt: September 28, 2024 Dr. Shanon Bravo , Referring Provider Active S tart: September 28, 2024 Dr. Shanon Bravo DO Other Provider Active Start : September 28, 2024 Dr. Trciia Taylor MD Other Provider Active Star t: September 28, 2024 Team Status: Active Member Role Status Dates Dr. Zoraida Marino MD Primary Care Provider Active Start: September 29, 2024 Dr. Baljit Fleming , Emergency Provider Active Start: September 29, 2024 Dr. Jean Claude Luther , Admit Provider Active Star t: September 29, 2024 Dr. Jean Claude Luther , Other Provider Active Star t: September 29, 2024 Dr. Shanon Bravo DO Referring Provider Active S tart: September 29, 2024 Dr. Shanon Bravo DO Other Provider Active Start : September 29, 2024 Dr. Tricia Taylor MD Other Provider Active Star t: September 29, 2024 Dr. Elijah Mac MD Other Provider Active Sta rt: September 29, 2024 Dr. Dieudonne Esparza , Attending Provider Active S tart: September 29, 2024 Team Status: Active Member Role Status Dates Dr. Zoraida Marino MD Primary Care Provider Active Start: September 29, 2024 Dr. Baljit Fleming DO Emergency Provider Active Start: September 29, 2024 Dr. Jean Claude Luther , Admit Provider Active Star t: September 29, 2024 Dr. Jean Claude Luhter , Other Provider Active Star t: September 29, 2024 Dr. Shanon Bravo , DO Attending Provider Active S tart: September 29, 2024 Dr. Shanon Bravo , DO Other Provider Active Start : September 29, 2024 Dr. Tricia Taylor MD Other Provider Active Star t: September 29, 2024 Dr. Elijah Mac MD Other Provider Active Sta rt: September 29, 2024 Team Status: Active Member Role Status Dates Dr. Zoraida Marino MD Primary Care Provider Active Start: September 30, 2024 Dr. Baljit Fleming DO Emergency Provider Active Start: September 30, 2024 Dr. Jean Claude Luther DO Admit Provider Active Star t: September 30, 2024 Dr. Jean Claude Luther DO Other Provider Active Star t: September 30, 2024 Dr. Shanon Bravo , Attending Provider Active S tart: September 30, 2024 Dr. Shanon Bravo , Other Provider Active Start : September 30, 2024 Dr. Tricia Taylor MD Other Provider Active Star t: September 30, 2024 Dr. Elijah Mac MD Other Provider Active Sta rt: September 30, 2024 Team Status: Active Member Role Status Dates Dr. Zoraida Marino MD Primary Care Provider Active Start: October 04, 2024 Dr. Verna ARORA MD Attending Provider Active Start: October 04, 2024 Team Status: Active Member Role Status Dates Dr. Zoraida Marino MD Primary Care Provider Active Start: October 10, 2024 Dr. Verna ARORA MD Attending Provider Active Start: October 10, 2024 Team Status: Inactive Member Role Status Dates Dr. Zoraida Marino MD Primary Care Provider Active Start: October 24, 2024 End: October 24, 2024 Dr. Zoraida Marino MD Attending Provider Active Start: October 24, 2024 End: October 24, 2024 Dr. Zoraida Marino MD Referring Provider Active Start: October 24, 2024 End: October 24, 2024 Team Status: Inactive Member Role Status Dates Dr. Zoraida Marino MD Primary Care Provider Active Start: November 09, 2024 End: November 09, 2024 JOHN Blackman Attending Provider Active St art: November 09, 2024 End: November 09, 2024 JOHN Blackman Referring Provider Active St art: November 09, 2024 End: November 09, 2024 Team Status: Active Member Role/Relationship Status Dates Dr. Zoraida Marino MD Primary Care Provider Active Team Status: Inactive Member Role/Relationship Status Dates Dr. Zoraida Marino MD Primary Care Provider Active Start: April 14, 2025 End: April 14, 2025 Dr. Franklin Neal MD Emergency Provider Active Sta rt: April 14, 2025 End: April 14, 2025 Goals (unrecognized section and content) Goals may be documented in a n alternate sectionGoals may be documented in an alternate sectionGoals may be documented in an alternate sectionGoals may be documented in an alternate sectionGoals may be documented in an alternate sectionGoals may be documented in an alternate sectionGoals may be documented in an alternate section (unrecognized sect ion and content) No Status Records FoundNo Status Records FoundNo Status Records Found INFORMATION SOURCE (unrecogn ized section and content) DATE CREATED AUTHOR 01/03/2022 [facility] DATE CREATED AUTHOR AUTHOR'S ORGANIZ ATION 06/03/2024 [facility] DATE CREATED AUTHOR AUTHOR'S ORGANIZ ATION 04/28/2025 [facility] FOR RECORDS PERTAINING TO PATIENTS WHO [...] BE BASED ON THE PRIMARY CLINICAL RECORDS. [facility] [employer] [facility]. provides no warranty or guarantee of the accuracy or completeness of information in this document.
--- OUTSIDE RECORDS SUMMARY | 2025-04-28 13:57 | XMS RPT_ITS | CCD ---
Author Organization [facility] Care Team Providers Care Athletic Director Name Role Phone Linda Dominguez MD Primary Care Provider Dr. Linda Dominguez Primary Care Provider MD Beka Garcia Emergency Provider Dr. Nathan Taveras Admit Provider Dr. Nathan Taveras Attending Provider Dr. Nathan Taveras Other Provider Dr. Tyrese Fulton Attending Provider Dr. Jean Claude Jasmine Referring Provider Dr. Gricel Devi Attending Provider Dr. Nathan Taveras Referring Provider Dr. Júnior Lopez Other Provider [phone] Dr. Mickey Messina Attending Provider [phone] Dr. Jonel Flores Chi Admit Provider Dr. Jonel Flores Chi Other Provider Dr. Ros Deluca Attending Provider Dr. Linda Dominguez Primary Care Provider MD Beka Garcia Emergency Provider [phone] Nathan Taveras Admit Provider Dr. Nathan Taveras Attending Provider Dr. Nathan Taveras Other Provider Dr. Linda Dominguez Referring Provider [phone] Isadora LOPEZ PA-Omar Donovan Attending Provider Dr. Zoraida Marino Attending Provider [phone] Maci Marino MD Primary Care Provider Dr. Zoraida Marino [...] Provider Dr. Todd Vieira Attending Provider Erick GENERAL SURGEON, GENERAL SURGEON-C Glenis Attending Provider Dr. Zoraida Marino Primary Care Provider Dr. Zoraida Marino Referring Provider [phone] Dr. Todd Vieira Attending Provider Dr. Zoraida Marino Attending Provider Erick GENERAL SURGEON, GENERAL SURGEON-C Glenis Attending Provider Linda Dominguez MD Primary Care Provider Zoraida Marino MD Primary Care Provider [phone] EVAN WALDEN Attending Unavailable ZORAIDA MARINO Primary Care Unavailable Dr. Zoraida Marino MD Primary Care Provider [phone] Dr. Baljit Fleming DO Attending Provider [phone] Dr. Baljit Fleming DO Emergency Provider Ned [...] Provider Dr. Dieudonne Esparza DO Other Provider [phone] Chris MITCHELL, Dr. Chris Coronado Other Provider Diego MITCHELL, Dr. Haq Other Provider Zack MITCHELL, Dr. Cuellar Other Provider Jones MITCHELL, Dr. Lakhani Other Provider Nayeli MITCHELL, Dr. Rodriguez Other Provider Dr. Stephane Flores MD Other Provider [phone] Rudolph MITCHELL, Dr. Cole Other Provider Juarez MITCHELL, Dr. Silva Other Provider Jess MITCHELL, Dr. Otto Other Provider [facility] nat[facility]ie Ames MD, Dr. Mora Other Provider Honorio MITCHELL, Dr. Pardo Other Provider Donaldo MITCHELL, Dr. East Other Provider Heri MITCHELL, Dr. Cifuentes Other Provider Conrado GRULLON, Dr. West Other Provider [phone] Opal MITCHELL, Dr. Cannon Other Provider [phone] Jf MITCHELL, Dr. Theodore Other Provider Dr. William Henry DO Other Provider Triston MITCHELL, Dr. Mims Other Provider Daniel MITCHELL, Dr. Longoria Other Provider Lawrence GRULLON, Dr. Claudio Other Provider Ez MITCHELL, Dr. Gillespie Attending Provider Unavaila ble Maddison Calix Attending Provider [phone] Maddison Calix Referring Provider Dr. Zoradia Marino MD Primary Care Provider Dr. Franklin [...] Sanchez Consulting Unavailable Tricia Taylor Attending Unavailable Wellington, Zoraida Primary Care Unavailable Ned, Zoraida Referring Unavailable Wellington, Zoraida Attending Unavailable Ned, Zoraida Primary Care Unavailable Maddison Saini Referring Unavailable Maddison Saini Attending Unavailable Ned, Zoraida Primary Care Unavailable Gudla Verna ARORA Attending Unavailable Gudla Arline ARORAthi Attending Unavailable Ned, Zoraida Primary Care Unavailable Wellington, Zoraida Primary Care Unavailable Eirck GENERAL SURGEON, Glenis Referring Unavailable Erick GENERAL SURGEON, Glenis Attending Unavailable Shanon Bravo Attending Unavailable Ned, Zoraida Primary Care Unavailable Jean Claude Luther Consulting Unavailable Jean Claude Luther Admitting Unavailable Tricia Taylor Consulting Unavailable Elijah Mac Consulting Unavailable Ned, Zoraida Primary Care Unavailable Baljit Fleming Attending Unavailable Ned, Zoraida Primary Care Unavailable Selwyn Ramsey Referring Unavailable Selwyn Ramsey Attending Unavailable Wellington, Zoraida Primary Care Unavailable Selwyn Ramsey Referring Unavailable Selwyn Ramsey Attending Unavailable Wellington, Zoraida Referring Unavailable Wellington, Zoraida Attending Unavailable Ned, Zoraida Primary Care Unavailable Ned, Zoraida Referring Unavailable Wellington, Zoraida Attending Unavailable Wellington, Zoraida Primary Care Unavailable Allergies Allergy Classification Reported Allergen(s) Allergy Type Date of Onset Reaction(s) Facility (20 sources) Acetaminophen; Translations: [ACETAMINOPHEN] Drug Allergy 4 GI Upset, Other: See Comments [facility] (13 sources) DULoxetine; Translations: [DULOXETINE] Drug Allergy 1 Other: See Comments [facility] Work Phone: (20 sources) fentaNYL; Translations: [FENTANYL] Drug Allergy 4 GI Upset [facility] (13 sources) gabapentin; Translations: [GABAPENTIN] Drug Allergy 4 Vomiting [facility] Work Phone: (13 sources) Methocarbamol; Translations: [METHOCARBAMOL] Drug Allergy 4 Vomiting [facility] Work Phone: (20 sources) Metoclopramide; Translations: [METOCLOPRAMIDE HCL] Drug Allergy 4 Mental Status Change [facility] (13 sources) traMADol; Translations: [TRAMADOL] Drug Allergy 2 [facility] Work Phone: (10 sources) nabumetone Drug Allergy 2 Nausea/Vom/Diar cabrera [facility] (8 sources) hydrOXYzine Drug Allergy 2 Vomiting [facility] (8 sources) Niacin Drug Allergy 2 Vomiting [facility] (2 sources) Carbidopa Drug Allergy 5 Abd cramps/diarrhea [facility] (2 sources) Levodopa Drug Allergy 5 Abd cramps/diarrhea [facility] (1 source) Acetaminophen Drug Allergy 5 [facility] (1 source) Carbidopa Drug Allergy 5 [facility] (1 source) fentaNYL Drug Allergy 5 [facility] (1 source) hydrOXYzine Drug Allergy 5 [facility] (1 source) Levodopa Drug Allergy 5 [facility] (1 source) Metoclopramide Drug Allergy 5 [facility] (1 source) nabumetone Drug Allergy 5 [facility] (1 source) Niacin Drug Allergy 5 [facility] Medications Current Medications Medication Drug [...] 06, 2021 12:00am July 21, 2022 10:52am Gsavp-Afye-Nwzvg-Collag-Mv-M in (Aly (With Collagen)) 7-7-1.5 gram Powder In Packet (10 sources) Start: 11-06-2021 Jsxkw-Qfba-Cfxeq-Collag-Mv-M in (Aly (With Collagen)) 7-7-1.5 gram Powder In Packet Active 1 PACKET PO TWICE DAILY WITH MEALS 60 30 November 06, 2021 8:33pm Start: 11-06-2021 End: 01-23-2022 Oflma-Uobl-Qqvns-Collag-Mv-M in (Aly (With Collagen)) 7-7-1.5 gram Powder In Packet Discontinued 1 NMA PO TWICE DAILY WITH MEALS 60 30 0 November 06, 2021 12:00am January 23, 2022 10:38am Start: 11-06-2021 End: 01-23-2022 Bemca-Vvwj-Wuvgq-Collag-Mv-M in (Aly (With Collagen)) 7-7-1.5 gram Powder In Packet Discontinued 1 NMA PO TWICE DAILY WITH MEALS 60 30 November 06, 2021 12:00am January 23, 2022 10:38am Start: 11-06-2021 End: 01-23-2022 Gmucj-Elhc-Ixykm-Collag-Mv-M in (Aly (With Collagen)) 7-7-1.5 gram Powder In Packet Discontinued 1 PACKET PO TWICE DAILY WITH MEALS 60 30 November 05, 2021 11:00pm January 23, 2022 9:38am Start: 11-06-2021 End: 01-23-2022 Enmcu-Yfjt-Qrbzd-Collag-Mv-M in (Aly (With Collagen)) 7-7-1.5 gram Powder [...] Comment on above: Take 1 capsule by [facility] once daily. losartan potassium 50 mg oral [...] 10:38am docusate sodium 50 mg / sennosides, snf 8.6 mg oral tablet (2 sources) Start: [...] on above: Take 1 capsule by mo [facility] daily at bedtime. predniSONE 10 mg oral [...] 06/01/2024 Discontinued take 1 capsule by mo [facility] once daily propranolol HCl (PROPRANOLOL ORAL) Take [...] iton 04-25-2025 Internal Medicine Office Visit Normal [facility] Low Dose CT Lung Screeningon 04-21-[address] Lung Screening Normal [facility] Absolute lymphocyte countOrd ered By: Franklin Neal on 04-14-2025 Lymphocytes Auto (Unsp spec) [#/Vol] 1.87 10*3/uL 0.83-4.51 [facility] Absolute neutrophil countOrd ered By: Franklin Neal on 04-14-2025 Neutrophils (Bld) [#/Vol] 4.3 10*3/uL 2.0-7.7 [facility] Anion gap in Serum or Plasma Ordered By: Franklin Neal on 04-14-2025 Anion gap [Moles/Vol] 11 mmol/L 5-15 [facility] Automated lymphocyte count a s percentage of total leukocytesOrdered By: Franklin Neal on 04-14-2025 Lymphocytes/100 WBC Auto (Unsp spec) 26.8 % 19-41 [facility] BUN/creatinine ratioOrdered By: Franklin Neal on 04-14-2025 Urea nitrogen/Creatinine [Mass ratio] 30.4 mg/mg High 10-20 [facility] Basophil percentageOrdered B y: Franklin Neal on 04-14-2025 Basophils/100 WBC (Bld) 0.9 % 0-1 [facility] Bilirubin, totalOrdered By: Franklin Neal on 04-14-2025 Bilirubin [Mass/Vol] 0.39 mg/dL 0.00-1.30 [facility] CBC W/Diff, Automatedon 04-03-2024 Absolute Lymph 1.87 X10 3/uL Normal 0.83-4.51 [facility] Comment on above: Performed By: #### L 500.4050, L100.0100 ####[facility] [address] [place], [address] Absolute Neut 4.3 X10 3/uL Normal 2.0-7.7 [facility] Comment on above: Performed By: #### L 500.4050, L100.0100 ####[facility] [address] [place], [address] Basophils/100 WBC (Bld) 0.9 % Normal 0-1 [facility] Comment on above: Performed By: #### L 500.4050, L100.0100 ####[facility] [address] [place], [address] Eosinophils/100 WBC (Bld) 1.0 % Normal 0-5 [facility] Comment on above: Performed By: #### L 500.4050, L100.0100 ####[facility] [address] [place], [address] Erythrocyte distribution width (RBC) [Ratio] 12.4 % Normal 11.6-14.6 [facility] Comment on above: Performed By: #### L 500.4050, L100.0100 ####[facility] [address] [place], [address] Hematocrit (Bld) [Volume fraction] 38.7 % Low 40-54 [facility] Comment on above: Performed By: #### L 500.4050, L100.0100 ####[facility] [address] [place], [address] Hemoglobin (Bld) [Mass/Vol] 13.4 g/dL Normal 13.0-16.5 [facility] Comment on above: Performed By: #### L 500.4050, L100.0100 ####[facility] [address] [place], [address] IG% 0.300 Normal 0.0-0.9 [facility] Comment on above: Result Comment: IG% - Immature Granulocytes (promyelocytes, myelocytes andmetamyelocytes) > 1% indicates that a LEFT SHIFT is Present. Performed By: #### L 500.4050, L100.0100 ####[facility] [address] [place], [address] Lymphocytes/100 WBC (Bld) 26.8 % Normal 19-41 [facility] Comment on above: Performed By: #### L 500.4050, L100.0100 ####[facility] [address] [place], [address] MCH (RBC) [Entitic mass] 32.4 pg High 27.0-32.0 [facility] Comment on above: Performed By: #### L 500.4050, L100.0100 ####[facility] [address] [place], [address] MCHC (RBC) [Mass/Vol] 34.6 g/dL Normal 32-36 [facility] Comment on above: Performed By: #### L 500.4050, L100.0100 ####[facility] [address] [place], [address] MCV (RBC) [Entitic vol] 93.7 fL Normal 80-94 [facility] Comment on above: Performed By: #### L 500.4050, L100.0100 ####[facility] [address] [place], [address] Monocytes/100 WBC (Bld) 10.0 % Normal 0-10 [facility] Comment on above: Performed By: #### L 500.4050, L100.0100 ####[facility] [address] [place], [address] Neutrophils/100 WBC (Bld) 61.0 % Normal 47-70 [facility] Comment on above: Performed By: #### L 500.4050, L100.0100 ####[facility] [address] [place], [address] Nucleated RBC (Bld) [#/Vol] 0 10*3/uL Normal 0-5 [facility] Comment on above: Performed By: #### L 500.4050, L100.0100 ####[facility] [address] [place], [address] Platelet mean volume (Bld) [Entitic vol] 10.1 fL Normal 6.2-12.0 [facility] Comment on above: Performed By: #### L 500.4050, L100.0100 ####[facility] [address] [place], [address] Platelets (Bld) [#/Vol] 208 10*3/uL Normal 150-450 [facility] Comment on above: Performed By: #### L 500.4050, L100.0100 ####[facility] [address] [place], [address] RBC (Bld) [#/Vol] 4.13 10*6/uL Low 4.6-6.2 [facility] Comment on above: Performed By: #### L 500.4050, L100.0100 ####[facility] [address] [place], [address] RDW SD 43.1 fl Normal 35.1-43.9 [facility] Comment on above: Performed By: #### L 500.4050, L100.0100 ####[facility] [address] [place], [address] WBC (Bld) [#/Vol] 7.0 10*3/uL Normal 4.4-11.0 [facility] Comment on above: Performed By: #### L 500.4050, L100.0100 ####[facility] [address] [place], [address] Carbon dioxide, total [Moles /volume] in Central venous bloodOrdered By: Franklin Neal on 04-14-2025 CO2 [Moles/Vol] 23.3 mmol/L 21.0-32.0 [facility] Chloride assayOrdered By: Ug o Neal on 04-14-2025 Chloride [Moles/Vol] 104 mmol/L 98-108 [facility] Comprehensive Metabolic Prof ilon 04-14-2025 Albumin [Mass/Vol] 4.2 g/dL Normal 3.4-4.8 [facility] Comment on above: Performed By: #### L 500.4050, L100.0100 ####[facility] [address] [place], [address] Albumin/Globulin [Mass ratio] 1.5 {ratio} Normal 0.9-2.4 [facility] Comment on above: Performed By: #### L 500.4050, L100.0100 ####[facility] [address] [place], [address] ALK PHOS 71 U/L Normal 40-129 [facility] Comment on above: Performed By: #### L 500.4050, L100.0100 ####[facility] [address] [place], [address] ALT [Catalytic activity/Vol] 10 U/L Normal <=46 [facility] Comment on above: Performed By: #### L 500.4050, L100.0100 ####[facility] [address] [place], [address] AST [Catalytic activity/Vol] 17 U/L Normal <=37 [facility] Comment on above: Performed By: #### L 500.4050, L100.0100 ####[facility] [address] [place], [address] Bilirubin [Mass/Vol] 0.39 mg/dL Normal 0.00-1.30 [facility] Comment on above: Performed By: #### L 500.4050, L100.0100 ####[facility] [address] [place], [address] BUN/CRE 30.4 RATIO High 10-20 [facility] Comment on above: Performed By: #### L 500.4050, L100.0100 ####[facility] [address] [place], [address] Calcium [Mass/Vol] 9.1 mg/dL Normal 7.6-11.0 [facility] Comment on above: Performed By: #### L 500.4050, L100.0100 ####[facility] [address] [place], [address] Chloride [Moles/Vol] 104 mmol/L Normal 98-108 [facility] Comment on above: Performed By: #### L 500.4050, L100.0100 ####[facility] [address] [place], [address] CO2 [Moles/Vol] 23.3 mmol/L Normal 21.0-32.0 [facility] Comment on above: Performed By: #### L 500.4050, L100.0100 ####[facility] [address] [place], [address] Creatinine [Mass/Vol] 0.61 mg/dL Low 0.70-1.20 [facility] Comment on above: Performed By: #### L 500.4050, L100.0100 ####[facility] [address] [place], [address] GAP 11 Normal 5-15 [facility] Comment on above: Performed By: #### L 500.4050, L100.0100 ####[facility] [address] [place], [address] GFR/1.73 sq M.predicted among non-blacks MDRD (S/P/Bld) [Vol rate/Area] 107 mL/min/{1.73_m2} Normal >60 [facility] Comment on above: Result Comment: mL/m in/1.73m2 CKD-EPI Creatinine Equation (2020) Performed By: #### L 500.4050, L100.0100 ####[facility] [address] [place], [address] Globulin (S) [Mass/Vol] 2.8 g/dL Normal 2.2-4.2 [facility] Comment on above: Performed By: #### L 500.4050, L100.0100 ####[facility] [address] [place], [address] Glucose [Mass/Vol] 125 mg/dL High 70-99 [facility] Comment on above: Performed By: #### L 500.4050, L100.0100 ####[facility] [address] [place], [address] Potassium [Moles/Vol] 4.3 mmol/L Normal 3.3-5.1 [facility] Comment on above: Performed By: #### L 500.4050, L100.0100 ####[facility] [address] [place], [address] Sodium [Moles/Vol] 138 mmol/L Normal 133-145 [facility] Comment on above: Performed By: #### L 500.4050, L100.0100 ####[facility] [address] [place], [address] T PROT 7.0 g/dL Normal 5.9-8.4 [facility] Comment on above: Performed By: #### L 500.4050, L100.0100 ####[facility] [address] [place], [address] Urea nitrogen [Mass/Vol] 18 mg/dL Normal 4-19 [facility] Comment on above: Performed By: #### L 500.4050, L100.0100 ####[facility] [address] [place], [address] Emergency Department Summary on 04-14-2025 Emergency Department Summary Normal [facility] Eosinophil percentageOrdered By: Franklinviolet eNal on 04-14-2025 Eosinophils/100 WBC (Bld) 1.0 % 0-5 [facility] Erythrocyte distribution wid th ratioOrdered By: Franklinviolet Neal on 04-14-2025 Erythrocyte distribution width (RBC) [Ratio] 12.4 % 11.6-14.6 [facility] Erythrocyte distribution wid th standard deviationOrdered By: Franklinviolet Neal on 04-14-2025 Erythrocyte distribution width (RBC) [Ratio] 43.1 fl 35.1-43.9 [facility] Glomerular filtration rate ( GFR) estimation/1.73 sq m using serum, plasma, or whole bOrdered By: Franklin Neal on 04-14-2025 GFR/1.73 sq M.predicted among non-blacks MDRD (S/P/Bld) [Vol rate/Area] 107 mL/min/{1.73_m2} >60 [facility] Comment on above: mL/min/1.73m2 CKD-EP I Creatinine Equation (2020) Hematocrit Auto (Bld) [Volum e fraction]Ordered By: Franklin Neal on 04-14-2025 Hematocrit (Bld) [Volume fraction] 38.7 % Low 40-54 [facility] Hemoglobin measurementOrdere d By: Franklin Neal on 04-14-2025 Hemoglobin (Bld) [Mass/Vol] 13.4 g/dL 13.0-16.5 [facility] Immature granulocytes/100 WB C Auto (Bld)Ordered By: Franklin Neal on 04-14-2025 Immature granulocytes/100 WBC (Bld) 0.300 % 0.0-0.9 [facility] Comment on above: IG% - Immature Granu locytes (promyelocytes, myelocytes and metamyelocytes) > 1% indicates that a LEFT SHIFT is Present. Laboratory - Chemistry and C hemistry - challengeOrdered By: Franklin Neal on 04-14-2025 AST [Catalytic activity/Vol] 17 U/L <38 [facility] Lumbar Spine 2 or 3 Viewson 04-14-2025 Lumbar Spine 2 or 3 Views Normal [facility] MCV (mean corpuscular volume ) determinationOrdered By: Franklin Neal on 04-14-2025 MCV (RBC) [Entitic vol] 93.7 fL 80-94 [facility] Mean corpuscular hemoglobin (MCH) determinationOrdered By: Franklin Neal on 04-14-2025 MCH (RBC) [Entitic mass] 32.4 pg High 27.0-32.0 [facility] Mean corpuscular hemoglobin concentration (MCHC) determinationOrdered By: Franklin Neal on 04-14-2025 MCHC (RBC) [Mass/Vol] 34.6 g/dL 32-36 [facility] Mean platelet volume determi nationOrdered By: Franklin Neal on 04-14-2025 Platelet mean volume (Bld) [Entitic vol] 10.1 fL 6.2-12.0 [facility] Monocyte percentageOrdered B y: Franklin Neal on 04-14-2025 Monocytes/100 WBC (Bld) 10.0 % 0-10 [facility] Neutrophil percentageOrdered By: Franklin Neal on 04-14-2025 Neutrophils/100 WBC (Bld) 61.0 % 47-70 [facility] Nucleated red blood cell per centageOrdered By: Franklin Neal on 04-14-2025 Nucleated RBC/100 WBC (Bld) [Ratio] 0 % 0-5 [facility] Platelet countOrdered By: Ada violet Ángel on 04-14-2025 Platelets (Bld) [#/Vol] 208 10*3/uL 150-450 [facility] Potassium measurement (mass/ volume)Ordered By: Franklin Neal on 04-14-2025 Potassium (Unsp spec) [Mass/Vol] 4.3 mmol/L 3.3-5.1 [facility] RBC Auto (Bld) [#/Vol]Ordere d By: Franklin Neal on 04-14-2025 RBC (Bld) [#/Vol] 4.13 10*6/uL Low 4.6-6.2 [facility] Serum creatinine measurement (mass/volume)Ordered By: Franklin Neal on 04-14-2025 Creatinine [Mass/Vol] 0.61 mg/dL Low 0.70-1.20 [facility] Serum globulin measurementOr dered By: Franklin Neal on 04-14-2025 Globulin (S) [Mass/Vol] 2.8 g/dL 2.2-4.2 [facility] Serum glucose measurement (m ass/volume)Ordered By: Franklin Neal on 04-14-2025 Glucose [Mass/Vol] 125 mg/dL High 70-99 [facility] Serum or plasma alanine valentin otransferase (ALT) measurementOrdered By: Franklin Neal on 04-14-2025 ALT [Catalytic activity/Vol] 10 U/L <47 [facility] Serum or plasma albumin jody urement (mass/volume)Ordered By: Franklin Neal on 04-14-2025 Albumin [Mass/Vol] 4.2 g/dL 3.4-4.8 [facility] Serum or plasma albumin/glob ulin mass ratioOrdered By: Franklinviolet Neal 04-14-2025 Albumin/Globulin [Mass ratio] 1.5 {ratio} 0.9-2.4 [facility] Serum or plasma alkaline skip sphatase measurementOrdered By: Franklinviolet Neal 04-14-2025 ALP [Catalytic activity/Vol] 71 U/L 40-129 [facility] [facility] Serum or plasma calcium jody urement (mass/volume)Ordered By: [facility] on 04-14-2025 Calcium [Mass/Vol] 9.1 mg/dL 7.6-11.0 [facility] Serum or plasma urea nitroge n measurement (mass/volume)Ordered By: [facility] on 04-14-2025 Urea nitrogen [Mass/Vol] 18 mg/dL 4-19 [facility] Sodium levelOrdered By: [facility] on 04-14-2025 Sodium [Moles/Vol] 138 mmol/L 133-145 [facility] Total proteinOrdered By: [facility] on 04-14-2025 Protein [Mass/Vol] 7.0 g/dL 5.9-8.4 [facility] White blood cell (WBC) count Ordered By: [facility] on 04-14-2025 WBC (Bld) [#/Vol] 7.0 10*3/uL 4.4-11.0 [facility] Venous Duplex US, Unilateral on 11-09-2024 Venous Duplex US, Unilateral Normal [facility] Venous duplex ultrasound rep ortOrdered By: Wayne Mendoza on 11-09-2024 US Vein [facility] [address] [facility] [place] [address] Venous Duplex US, Unilateral 11/09/24 1054 MR#: [id number] Acct: [id number] Name: OLGA MARTIN Rep #:[id number] : 1960 64 From: Wayne Mendoza MD [...] preliminary report was called and/or faxed to Parveen LOPEZ. 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, [address] BUN/CRE Normal 10-20 [facility] Comment on above: Order Comment: 210 Result Comment: DONT DO LABS, PT GOING HOME TODAY PER NURSE AUDRA @ Performed By: #### L 100.0500, L500.2500 ####[facility] [address] [place], [address] Calcium Normal 7.6-11.0 [facility] Comment on above: Order Comment: 210 Result Comment: DONT DO LABS, PT GOING HOME TODAY PER NURSE AUDRA @ Performed By: #### L 100.0500, L500.2500 ####[facility] [address] [place], [address] CL Normal 98-108 [facility] Comment on above: Order Comment: 210 Result Comment: DONT DO LABS, PT GOING HOME TODAY PER NURSE AUDRA @ Performed By: #### L 100.0500, L500.2500 ####[facility] [address] [place], [address] CO2 Normal 21.0-32.0 [facility] Comment on above: Order Comment: 210 Result Comment: DONT DO LABS, PT GOING HOME TODAY PER NURSE AUDRA @ Performed By: #### L 100.0500, L500.2500 ####[facility] [address] [place], [address] CREAT,SERUM Normal 0.70-1.20 [facility] Comment on above: Order Comment: 210 Result Comment: DONT DO LABS, PT GOING HOME TODAY PER NURSE AUDRA @ Performed By: #### L 100.0500, L500.2500 ####[facility] [address] [place], [address] eGFR Normal >60 [facility] Comment on above: Order Comment: 210 Result Comment: DONT DO LABS, PT GOING HOME TODAY PER NURSE AUDRA @ Performed By: #### L 100.0500, L500.2500 ####[facility] [address] [place], [address] GAP Normal 5-15 [facility] Comment on above: Order Comment: 210 Result Comment: DONT DO LABS, PT GOING HOME TODAY PER NURSE AUDRA @ Performed By: #### L 100.0500, L500.2500 ####[facility] [address] [place], [address] GLU Normal 70-99 [facility] Comment on above: Order Comment: 210 Result Comment: DONT DO LABS, PT GOING HOME TODAY PER NURSE AUDRA @[facility] Performed By: #### L 100.0500, L500.2500 ####[facility] [address] [place], [address] Potassium Normal 3.3-5.1 [facility] Comment on above: Order Comment: 210 Result Comment: DONT DO LABS, PT GOING HOME TODAY PER NURSE AUDRA @ Performed By: #### L 100.0500, L500.2500 ####[facility] [address] [place], [address] Basic Metabolic Profile (BMP) Normal 133-145 [facility] Comment on above: Order Comment: 210 Result Comment: DONT DO LABS, PT GOING HOME TODAY PER NURSE AUDRA @[id number] Performed By: #### L 100.0500, L500.2500 ####[facility] [address] [place], [address] CBC-Complete Blood Cnt No Di ffon 10-17-2024 HCT Normal 40-54 [facility] Comment on above: Order Comment: 210 Result Comment: DONT DO LABS, PT GOING HOME TODAY PER NURSE AUDRA @[id number] Performed By: #### L 100.0500, L500.2500 ####[facility] [address] [place], [address] HGB Normal 13.0-16.5 [facility] Comment on above: Order Comment: 210 Result Comment: DONT DO LABS, PT GOING HOME TODAY PER NURSE AUDRA @ Performed By: #### L 100.0500, L500.2500 ####[facility] [address] [place], [address] MCH Normal 27.0-32.0 [facility] Comment on above: Order Comment: 210 Result Comment: DONT DO LABS, PT GOING HOME TODAY PER NURSE AUDRA @ Performed By: #### L 100.0500, L500.2500 ####[facility] [address] [place], [address] MCHC Normal 32-36 [facility] Comment on above: Order Comment: 210 Result Comment: DONT DO LABS, PT GOING HOME TODAY PER NURSE AUDRA @ Performed By: #### L 100.0500, L500.2500 ####[facility] [address] [place], [address] MCV Normal 80-94 [facility] Comment on above: Order Comment: 210 Result Comment: DONT DO LABS, PT GOING HOME TODAY PER NURSE AUDRA @ Performed By: #### L 100.0500, L500.2500 ####[facility] [address] [place], [address] PLT Normal 150-450 [facility] Comment on above: Order Comment: 210 Result Comment: DONT DO LABS, PT GOING HOME TODAY PER NURSE AUDRA @ Performed By: #### L 100.0500, L500.2500 ####[facility] [address] [place], [address] RBC Normal 4.6-6.2 [facility] Comment on above: Order Comment: 210 Result Comment: DONT DO LABS, PT GOING HOME TODAY PER NURSE AUDRA @ Performed By: #### L 100.0500, L500.2500 ####[facility] [address] [place], [address] RDW CV Normal 11.6-14.6 [facility] Comment on above: Order Comment: 210 Result Comment: DONT DO LABS, PT GOING HOME TODAY PER NURSE AUDRA @[facility] Performed By: #### L 100.0500, L500.2500 ####[facility] [address] [place], [address] RDW SD Normal 35.1-43.9 [facility] Comment on above: Order Comment: 210 Result Comment: DONT DO LABS, PT GOING HOME TODAY PER NURSE AUDRA @[facility] Performed By: #### L 100.0500, L500.2500 ####[facility] [address] [place], [address] WBC Normal 4.4-11.0 [facility] Comment on above: Order Comment: 210 Result Comment: DONT DO LABS, PT GOING HOME TODAY PER NURSE AUDRA @[facility] Performed By: #### L 100.0500, L500.2500 ####[facility] [address] [place], [address] Anion gap in Serum or Plasma Ordered By: Verna Hui on 10-10-2024 Anion gap [Moles/Vol] 12 mmol/L 5-15 [facility] BUN/creatinine ratioOrdered By: Verna Hui on 10-10-2024 Urea nitrogen/Creatinine [Mass ratio] 19.0 mg/mg - [facility] Basic Metabolic Profile (BMP )on 10-10-2024 BUN/CRE 19.0 RATIO Normal - [facility] Comment on above: Performed By: #### L 501.5200, L500.2500, L100.0500 ####[facility] [address] [place], [address] Calcium [Mass/Vol] 8.5 mg/dL Normal 7.6-11.0 [facility] Comment on above: Performed By: #### L 501.5200, L500.2500, L100.0500 ####[facility] [address] [place], [address] Chloride [Moles/Vol] 105 mmol/L Normal 98-108 [facility] Comment on above: Performed By: #### L 501.5200, L500.2500, L100.0500 ####[facility] [address] [place], [address] CO2 [Moles/Vol] 21.9 mmol/L Normal 21.0-32.0 [facility] Comment on above: Performed By: #### L 501.5200, L500.2500, L100.0500 ####[facility] [address] [place], [address] Creatinine [Mass/Vol] 0.64 mg/dL Low 0.70-1.20 [facility] Comment on above: Performed By: #### L 501.5200, L500.2500, L100.0500 ####[facility] [address] [place], [address] GAP 12 Normal 5-15 [facility] Comment on above: Performed By: #### L 501.5200, L500.2500, L100.0500 ####[facility] [address] [place], [address] GFR/1.73 sq M.predicted among non-blacks MDRD (S/P/Bld) [Vol rate/Area] 105 mL/min/{1.73_m2} Normal >60 [facility] Comment on above: Result Comment: mL/m in/1.73m2 CKD-EPI Creatinine Equation (2020) Performed By: #### L 501.5200, L500.2500, L100.0500 ####[facility] [address] [place], [address] Glucose [Mass/Vol] 162 mg/dL High 70-99 [facility] Comment on above: Performed By: #### L 501.5200, L500.2500, L100.0500 ####[facility] [address] [place], [address] Potassium [Moles/Vol] 3.9 mmol/L Normal 3.3-5.1 [facility] Comment on above: Performed By: #### L 501.5200, L500.2500, L100.0500 ####[facility] [address] [place], [address] Sodium [Moles/Vol] 139 mmol/L Normal 133-145 [facility] Comment on above: Performed By: #### L 501.5200, L500.2500, L100.0500 ####[facility] [address] [place], [address] Urea nitrogen [Mass/Vol] 12 mg/dL Normal 4-19 [facility] Comment on above: Performed By: #### L 501.5200, L500.2500, L100.0500 ####[facility] [address] [place], [address] CBC-Complete Blood Cnt No Di ffon 10-10-2024 Erythrocyte distribution width (RBC) [Ratio] 12.7 % Normal 11.6-14.6 [facility] Comment on above: Performed By: #### L 501.5200, L500.2500, L100.0500 ####[facility] [address] [place], [address] Hematocrit (Bld) [Volume fraction] 33.1 % Low 40-54 [facility] Comment on above: Performed By: #### L 501.5200, L500.2500, L100.0500 ####[facility] [address] [place], [address] Hemoglobin (Bld) [Mass/Vol] 11.2 g/dL Low 13.0-16.5 [facility] Comment on above: Performed By: #### L 501.5200, L500.2500, L100.0500 ####[facility] [address] [place], [address] MCH (RBC) [Entitic mass] 32.9 pg High 27.0-32.0 [facility] Comment on above: Performed By: #### L 501.5200, L500.2500, L100.0500 ####[facility] [address] [place], [address] MCHC (RBC) [Mass/Vol] 33.8 g/dL Normal 32-36 [facility] Comment on above: Performed By: #### L 501.5200, L500.2500, L100.0500 ####[facility] [address] [place], [address] MCV (RBC) [Entitic vol] 97.4 fL High 80-94 [facility] Comment on above: Performed By: #### L 501.5200, L500.2500, L100.0500 ####[facility] [address] [place], [address] Platelet mean volume (Bld) [Entitic vol] 9.7 fL Normal 6.2-12.0 [facility] Comment on above: Performed By: #### L 501.5200, L500.2500, L100.0500 ####[facility] [address] [place], [address] Platelets (Bld) [#/Vol] 338 10*3/uL Normal 150-450 [facility] Comment on above: Performed By: #### L 501.5200, L500.2500, L100.0500 ####[facility] [address] [place], [address] RBC (Bld) [#/Vol] 3.40 10*6/uL Low 4.6-6.2 [facility] Comment on above: Performed By: #### L 501.5200, L500.2500, L100.0500 ####[facility] [address] [place], [address] RDW SD 45.3 fl High 35.1-43.9 [facility] Comment on above: Performed By: #### L 501.5200, L500.2500, L100.0500 ####[facility] [address] [place], [address] WBC (Bld) [#/Vol] 6.3 10*3/uL Normal 4.4-11.0 [facility] Comment on above: Performed By: #### L 501.5200, L500.2500, L100.0500 ####[facility] [address] [place], [address] Carbon dioxide, total [Moles /volume] in Central venous bloodOrdered By: Verna Hui on 10-10-2024 CO2 [Moles/Vol] 21.9 mmol/L 21.0-32.0 [facility] Chloride assayOrdered By: Emigdio Hui on 10-10-2024 Chloride [Moles/Vol] 105 mmol/L 98-108 [facility] Erythrocyte distribution wid th (RBC) [Ratio]Ordered By: Verna Hui on 10-10-2024 Erythrocyte distribution width (RBC) [Entitic vol] 45.3 fL High 35.1-43.9 [facility] Erythrocyte distribution wid th ratioOrdered By: Verna Hui on 10-10-2024 Erythrocyte distribution width (RBC) [Ratio] 12.7 % 11.6-14.6 [facility] GFR/1.73 sq M.predicted ally g non-blacks MDRD (S/P/Bld) [Vol rate/Area]Ordered By: Verna Hui on 10-10-2024 Estimated GFR (MDRD) Non-Af Amer 105 >60 [facility] Comment on above: mL/min/1.73m2 CKD-EP I Creatinine Equation (2020) Hematocrit Auto (Bld) [Volum e fraction]Ordered By: Verna Hui on 10-10-2024 Hematocrit (Bld) [Volume fraction] 33.1 % Low 40-54 [facility] Hemoglobin measurementOrdere d By: Verna Hui on 10-10-2024 Hemoglobin (Bld) [Mass/Vol] 11.2 g/dL Low 13.0-16.5 [facility] MCV (mean corpuscular volume ) determinationOrdered By: Verna Hui on 10-10-2024 MCV (RBC) [Entitic vol] 97.4 fL High 80-94 [facility] Magnesiumon 10-10-2024 Magnesium [Mass/Vol] 2.1 mg/dL Normal 1.5-2.2 [facility] Comment on above: Performed By: #### L 501.5200, L500.2500, L100.0500 ####[facility] [address] [facility] [place], [address] Magnesium (Unsp spec) [Mass/ Vol]Ordered By: Verna Hui on 10-10-2024 Magnesium [Mass/Vol] 2.1 mg/dL 1.5-2.2 [facility] Mean corpuscular hemoglobin (MCH) determinationOrdered By: Verna Hui on 10-10-2024 MCH (RBC) [Entitic mass] 32.9 pg High 27.0-32.0 [facility] Mean corpuscular hemoglobin concentration (MCHC) determinationOrdered By: Verna Hui on 10-10-2024 MCHC (RBC) [Mass/Vol] 33.8 g/dL 32-36 [facility] Mean platelet volume determi nationOrdered By: Verna Hui on 10-10-2024 Platelet mean volume (Bld) [Entitic vol] 9.7 fL 6.2-12.0 [facility] Platelet countOrdered By: Emigdio Hui on 10-10-2024 Platelets (Bld) [#/Vol] 338 10*3/uL 150-450 [facility] Potassium (Unsp spec) [Mass/ Vol]Ordered By: Verna Hui on 10-10-2024 Potassium [Moles/Vol] 3.9 mmol/L 3.3-5.1 [facility] RBC Auto (Bld) [#/Vol]Ordere d By: Verna Hui on 10-10-2024 RBC (Bld) [#/Vol] 3.40 10*6/uL Low 4.6-6.2 [facility] Serum creatinine measurement (mass/volume)Ordered By: Verna Hui on 10-10-2024 Creatinine [Mass/Vol] 0.64 mg/dL Low 0.70-1.20 [facility] Serum glucose measurement (m ass/volume)Ordered By: Verna Hui on 10-10-2024 Glucose [Mass/Vol] 162 mg/dL High 70-99 [facility] Serum or plasma calcium jody urement (mass/volume)Ordered By: Verna Hui on 10-10-2024 Calcium [Mass/Vol] 8.5 mg/dL 7.6-11.0 [facility] Serum or plasma urea nitroge n measurement (mass/volume)Ordered By: Verna Hui on 10-10-2024 Urea nitrogen [Mass/Vol] 12 mg/dL 4-19 [facility] Sodium levelOrdered By: Leonard Hui on 10-10-2024 Sodium [Moles/Vol] 139 mmol/L 133-145 [facility] White blood cell (WBC) count Ordered By: Verna Hui on 10-10-2024 WBC (Bld) [#/Vol] 6.3 10*3/uL 4.4-11.0 [facility] Absolute neutrophil countOrd ered By: Verna Hui on 10-04-2024 Neutrophils (Bld) [#/Vol] 5.5 10*3/uL 2.0-7.7 [facility] Anion gap in Serum or Plasma Ordered By: Verna Hui on 10-04-2024 Anion gap [Moles/Vol] 12 mmol/L 5-15 [facility] BUN/creatinine ratioOrdered By: Verna Hui on 10-04-2024 Urea nitrogen/Creatinine [Mass ratio] 33.8 mg/mg High [address] [place] [address] Basic Metabolic Profile (BMP )on 10-04-2024 BUN/CRE 33.8 RATIO High [address] [place] [address] Comment on above: Order Comment: 210.1 Performed By: #### L 500.2500, L501.5200, L503.0106, L501.9520, L500.4100, L100.0100, L506.1001 ####[facility] [address] [place], [address] Calcium [Mass/Vol] 8.3 mg/dL Normal 7.6-11.0 [facility] Comment on above: Order Comment: 210.1 Performed By: #### L 500.2500, L501.5200, L503.0106, L501.9520, L500.4100, L100.0100, L506.1001 ####[facility] [address] [place], [address] Chloride [Moles/Vol] 103 mmol/L Normal 98-108 [facility] Comment on above: Order Comment: 210. Performed By: #### L 500.2500, L501.5200, L503.0106, L501.9520, L500.4100, L100.0100, L506.1001 ####[facility] [address] [place], [address] CO2 [Moles/Vol] 23.2 mmol/L Normal 21.0-32.0 [facility] Comment on above: Order Comment: 210.1 Performed By: #### L 500.2500, L501.5200, L503.0106, L501.9520, L500.4100, L100.0100, L506.1001 ####[facility] [address] [place], [address] Creatinine [Mass/Vol] 0.60 mg/dL Low 0.70-1.20 [facility] Comment on above: Order Comment: 210.1 Performed By: #### L 500.2500, L501.5200, L503.0106, L501.9520, L500.4100, L100.0100, L506.1001 ####[facility] [address] [place], [address] GAP 12 Normal 5-15 [facility] Comment on above: Order Comment: 210.1 Performed By: #### L 500.2500, L501.5200, L503.0106, L501.9520, L500.4100, L100.0100, L506.1001 ####[facility] [address] [place], [address] GFR/1.73 sq M.predicted among non-blacks MDRD (S/P/Bld) [Vol rate/Area] 107 mL/min/{1.73_m2} Normal >60 [facility] Comment on above: Order Comment: 210.1 Result Comment: mL/m in/1.73m2 CKD-EPI Creatinine Equation (2020) Performed By: #### L 500.2500, L501.5200, L503.0106, L501.9520, L500.4100, L100.0100, L506.1001 ####[facility] [address] [place], [address] Glucose [Mass/Vol] 120 mg/dL High 70-99 [facility] Comment on above: Order Comment: 210.1 Performed By: #### L 500.2500, L501.5200, L503.0106, L501.9520, L500.4100, L100.0100, L506.1001 ####[facility] [address] [place], [address] Potassium [Moles/Vol] 4.1 mmol/L Normal 3.3-5.1 [facility] Comment on above: Order Comment: 210.1 Performed By: #### L 500.2500, L501.5200, L503.0106, L501.9520, L500.4100, L100.0100, L506.1001 ####[facility] [address] [place], [address] Sodium [Moles/Vol] 138 mmol/L Normal 133-145 [facility] Comment on above: Order Comment: 210.1 Performed By: #### L 500.2500, L501.5200, L503.0106, L501.9520, L500.4100, L100.0100, L506.1001 ####[facility] [address] [place], [address] Urea nitrogen [Mass/Vol] 20 mg/dL High - [facility] Comment on above: Order Comment: 210.1 Performed By: #### L 500.2500, L501.5200, L503.0106, L501.9520, L500.4100, L100.0100, L506.1001 ####[facility] [address] [place], [address] BUN Normal - [facility] Comment on above: Result Comment: Canc elled via OM: Order cancelled - Patient discharged Performed By: #### L 100.0100, L500.2500 ####[facility] [address] [place], [address] BUN/CRE Normal - [facility] Comment on above: Result Comment: Canc elled via OM: Order cancelled - Patient discharged Performed By: #### L 100.0100, L500.2500 ####[facility] [address] [place], [address] Calcium Normal 7.6-11.0 [facility] Comment on above: Result Comment: Canc elled via OM: Order cancelled - Patient discharged Performed By: #### L 100.0100, L500.2500 ####[facility] [address] [place], [address] CL Normal 98-107 [facility] Comment on above: Result Comment: Canc elled via OM: Order cancelled - Patient discharged Performed By: #### L 100.0100, L500.2500 ####[facility] [address] [place], [address] CO2 Normal 21.0-32.0 [facility] Comment on above: Result Comment: Canc elled via OM: Order cancelled - Patient discharged Performed By: #### L 100.0100, L500.2500 ####[facility] [address] [place], [address] CREAT,SERUM Normal 0.8-1.3 [facility] Comment on above: Result Comment: Canc elled via OM: Order cancelled - Patient discharged Performed By: #### L 100.0100, L500.2500 ####[facility] [address] [place], [address] eGFR Normal >60 [facility] Comment on above: Result Comment: Canc elled via OM: Order cancelled - Patient discharged Performed By: #### L 100.0100, L500.2500 ####[facility] [address] [place], [address] GAP Normal 5-15 [facility] Comment on above: Result Comment: Canc elled via OM: Order cancelled - Patient discharged Performed By: #### L 100.0100, L500.2500 ####[facility] [address] [place], [address] GLU Normal 70-99 [facility] Comment on above: Result Comment: Canc elled via OM: Order cancelled - Patient discharged Performed By: #### L 100.0100, L500.2500 ####[facility] [address] [place], [address] Potassium Normal 3.5-5.1 [facility] Comment on above: Result Comment: Canc elled via OM: Order cancelled - Patient discharged Performed By: #### L 100.0100, L500.2500 ####[facility] [address] [place], [address] Basic Metabolic Profile (BMP) Normal 136-145 [facility] Comment on above: Result Comment: Canc elled via OM: Order cancelled - Patient discharged Performed By: #### L 100.0100, L500.2500 ####[facility] [address] [place], [place], [address] Basophil percentageOrdered B y: Verna Hui on 10-04-2024 Basophils/100 WBC (Bld) 0.2 % 0-1 [facility] CBC W/Diff, Automatedon Absolute Lymph 1.54 X10 3/uL Normal 0.83-4.51 [facility] Comment on above: Order Comment: 210.1 Performed By: #### L 500.2500, L501.5200, L503.0106, L501.9520, L500.4100, L100.0100, L506.1001 ####[facility] [address] [place], [address] Absolute Neut 5.5 X10 3/uL Normal 2.0-7.7 [facility] Comment on above: Order Comment: 210.1 Performed By: #### L 500.2500, L501.5200, L503.0106, L501.9520, L500.4100, L100.0100, L506.1001 ####[facility] [address] [place], [address] Basophils/100 WBC (Bld) 0.2 % Normal 0-1 [facility] Comment on above: Order Comment: 210.1 Performed By: #### L 500.2500, L501.5200, L503.0106, L501.9520, L500.4100, L100.0100, L506.1001 ####[facility] [address] [place], [address] Eosinophils/100 WBC (Bld) 2.3 % Normal 0-5 [facility] Comment on above: Order Comment: 210.1 Performed By: #### L 500.2500, L501.5200, L503.0106, L501.9520, L500.4100, L100.0100, L506.1001 ####[facility] [address] [place], [address] Erythrocyte distribution width (RBC) [Ratio] 12.8 % Normal 11.6-14.6 [facility] Comment on above: Order Comment: 210.1 Performed By: #### L 500.2500, L501.5200, L503.0106, L501.9520, L500.4100, L100.0100, L506.1001 ####[facility] [address] [place], [address] Hematocrit (Bld) [Volume fraction] 35.2 % Low 40-54 [facility] Comment on above: Order Comment: 210.1 Performed By: #### L 500.2500, L501.5200, L503.0106, L501.9520, L500.4100, L100.0100, L506.1001 ####[facility] [address] [place], [address] Hemoglobin (Bld) [Mass/Vol] 12.0 g/dL Low 13.0-16.5 [facility] Comment on above: Order Comment: 210.1 Performed By: #### L 500.2500, L501.5200, L503.0106, L501.9520, L500.4100, L100.0100, L506.1001 ####[facility] [address] [place], [address] IG% 0.600 Normal 0.0-0.9 [facility] Comment on above: Order Comment: 210.1 Result Comment: IG% - Immature Granulocytes (promyelocytes, myelocytes andmetamyelocytes) > 1% indicates that a LEFT SHIFT is Present. Performed By: #### L 500.2500, L501.5200, L503.0106, L501.9520, L500.4100, L100.0100, L506.1001 ####[facility] [address] [place], [address] Lymphocytes/100 WBC (Bld) 18.8 % Low 19-41 [facility] Comment on above: Order Comment: 210.1 Performed By: #### L 500.2500, L501.5200, L503.0106, L501.9520, L500.4100, L100.0100, L506.1001 ####[facility] [address] [place], [address] MCH (RBC) [Entitic mass] 32.9 pg High 27.0-32.0 [facility] Comment on above: Order Comment: 210.1 Performed By: #### L 500.2500, L501.5200, L503.0106, L501.9520, L500.4100, L100.0100, L506.1001 ####[facility] [address] [place], [address] MCHC (RBC) [Mass/Vol] 34.1 g/dL Normal 32-36 [facility] Comment on above: Order Comment: 210.1 Performed By: #### L 500.2500, L501.5200, L503.0106, L501.9520, L500.4100, L100.0100, L506.1001 ####[facility] [address] [place], [address] MCV (RBC) [Entitic vol] 96.4 fL High 80-94 [facility] Comment on above: Order Comment: 210.1 Performed By: #### L 500.2500, L501.5200, L503.0106, L501.9520, L500.4100, L100.0100, L506.1001 ####[facility] [address] [place], [address] Monocytes/100 WBC (Bld) 11.1 % High 0-10 [facility] Comment on above: Order Comment: 210.1 Performed By: #### L 500.2500, L501.5200, L503.0106, L501.9520, L500.4100, L100.0100, L506.1001 ####[facility] [address] [place], [address] Neutrophils/100 WBC (Bld) 67.0 % Normal 47-70 [facility] Comment on above: Order Comment: .1 Performed By: #### L 500.2500, L501.5200, L503.0106, L501.9520, L500.4100, L100.0100, L506.1001 ####[facility] [address] [place], [address] Nucleated RBC (Bld) [#/Vol] 0 10*3/uL Normal 0-5 [facility] Comment on above: Order Comment: 210.1 Performed By: #### L 500.2500, L501.5200, L503.0106, L501.9520, L500.4100, L100.0100, L506.1001 ####[facility] [address] [place], [address] Platelet mean volume (Bld) [Entitic vol] 10.5 fL Normal 6.2-12.0 [facility] Comment on above: Order Comment: 210.1 Performed By: #### L 500.2500, L501.5200, L503.0106, L501.9520, L500.4100, L100.0100, L506.1001 ####[facility] [address] [place], [address] Platelets (Bld) [#/Vol] 244 10*3/uL Normal 150-450 [facility] Comment on above: Order Comment: 210.1 Performed By: #### L 500.2500, L501.5200, L503.0106, L501.9520, L500.4100, L100.0100, L506.1001 ####[facility] [address] [place], [address] RBC (Bld) [#/Vol] 3.65 10*6/uL Low 4.6-6.2 [facility] Comment on above: Order Comment: 210.1 Performed By: #### L 500.2500, L501.5200, L503.0106, L501.9520, L500.4100, L100.0100, L506.1001 ####[facility] [address] [place], [address] RDW SD 45.7 fl High 35.1-43.9 [facility] Comment on above: Order Comment: 210.1 Performed By: #### L 500.2500, L501.5200, L503.0106, L501.9520, L500.4100, L100.0100, L506.1001 ####[facility] [address] [place], [address] WBC (Bld) [#/Vol] 8.2 10*3/uL Normal 4.4-11.0 [facility] Comment on above: Order Comment: 210.1 Performed By: #### L 500.2500, L501.5200, L503.0106, L501.9520, L500.4100, L100.0100, L506.1001 ####[facility] [address] [place], [address] Absolute Neut Normal 2.0-7.7 [facility] Comment on above: Result Comment: Canc elled via OM: Order cancelled - Patient discharged Performed By: #### L 100.0100, L500.2500 ####[facility] [address] [place], [address] HCT Normal 40-54 [facility] Comment on above: Result Comment: Canc elled via OM: Order cancelled - Patient discharged Performed By: #### L 100.0100, L500.2500 ####[facility] [address] [place], [address] HGB Normal 13.0-16.5 [facility] Comment on above: Result Comment: Canc elled via OM: Order cancelled - Patient discharged Performed By: #### L 100.0100, L500.2500 ####[facility] [address] [place], [address] MCH Normal 27.0-32.0 [facility] Comment on above: Result Comment: Canc elled via OM: Order cancelled - Patient discharged Performed By: #### L 100.0100, L500.2500 ####[facility] [address] [place], [address] MCHC Normal 32-36 [facility] Comment on above: Result Comment: Canc elled via OM: Order cancelled - Patient discharged Performed By: #### L 100.0100, L500.2500 ####[facility] [address] [place], [address] MCV Normal 80-94 [facility] Comment on above: Result Comment: Canc elled via OM: Order cancelled - Patient discharged Performed By: #### L 100.0100, L500.2500 ####[facility] [address] [place], [address] NEUT% Normal 47-70 [facility] Comment on above: Result Comment: Canc elled via OM: Order cancelled - Patient discharged Performed By: #### L 100.0100, L500.2500 ####[facility] [address] [place], [address] PLT Normal 150-450 [facility] Comment on above: Result Comment: Canc elled via OM: Order cancelled - Patient discharged Performed By: #### L 100.0100, L500.2500 ####[facility] [address] [place], [address] RBC Normal 4.6-6.2 [facility] Comment on above: Result Comment: Canc elled via OM: Order cancelled - Patient discharged Performed By: #### L 100.0100, L500.2500 ####[facility] [address] [place], [address] RDW CV Normal 11.6-14.6 [facility] Comment on above: Result Comment: Canc elled via OM: Order cancelled - Patient discharged Performed By: #### L 100.0100, L500.2500 ####[facility] [address] [place], [address] RDW SD Normal 35.1-43.9 [facility] Comment on above: Result Comment: Canc elled via OM: Order cancelled - Patient discharged Performed By: #### L 100.0100, L500.2500 ####[facility] [address] [place], [address] WBC Normal 4.4-11.0 [facility] Comment on above: Result Comment: Canc elled via OM: Order cancelled - Patient discharged Performed By: #### L 100.0100, L500.2500 ####[facility] [address] [place], [address] Calculated very low density lipoprotein (VLDL) cholesterol measurementOrdered By: Verna Hui on 10-04-2024 VLDL Cholesterol 15 mg/dL 5-40 [facility] Carbon dioxide, total [Moles /volume] in Central venous bloodOrdered By: Verna Hui on 10-04-2024 CO2 [Moles/Vol] 23.2 mmol/L 21.0-32.0 [facility] Chloride assayOrdered By: Emigdio Hui on 10-04-2024 Chloride [Moles/Vol] 103 mmol/L 98-108 [facility] Eosinophil percentageOrdered By: Verna Hui on 10-04-2024 Eosinophils/100 WBC (Bld) 2.3 % 0-5 [facility] Erythrocyte distribution wid th (RBC) [Ratio]Ordered By: Verna Hui on 10-04-2024 Erythrocyte distribution width (RBC) [Entitic vol] 45.7 fL High 35.1-43.9 [facility] Erythrocyte distribution wid th ratioOrdered By: Verna Hui on 10-04-2024 Erythrocyte distribution width (RBC) [Ratio] 12.8 % 11.6-14.6 [facility] GFR/1.73 sq M.predicted ally g non-blacks MDRD (S/P/Bld) [Vol rate/Area]Ordered By: Verna Hui on 10-04-2024 Estimated GFR (MDRD) Non-Af Amer 107 >60 [facility] Comment on above: mL/min/1.73m2 CKD-EP I Creatinine Equation (2020) Hematocrit Auto (Bld) [Volum e fraction]Ordered By: Verna Hui on 10-04-2024 Hematocrit (Bld) [Volume fraction] 35.2 % Low 40-54 [facility] Hemoglobin measurementOrdere d By: Verna Hui on 10-04-2024 Hemoglobin (Bld) [Mass/Vol] 12.0 g/dL Low 13.0-16.5 [facility] Immature granulocytes/100 WB C Auto (Bld)Ordered By: Verna Hui on 10-04-2024 Immature granulocytes/100 WBC (Bld) 0.600 % 0.0-0.9 [facility] Comment on above: IG% - Immature Granu locytes (promyelocytes, myelocytes and metamyelocytes) > 1% indicates that a LEFT SHIFT is Present. L503.0106on 10-04-2024 Cobalamin (Vitamin B12) [Mass/Vol] 298 pg/mL Normal 180-914 [facility] Comment on above: Order Comment: 210.1 Performed By: #### L 500.2500, L501.5200, L503.0106, L501.9520, L500.4100, L100.0100, L506.1001 ####[facility] [address] [place], [address] L506.1001on 10-04-2024 Vitamin D 25-OH 14.6 ng/mL Low 30-100 [facility] Comment on above: Order Comment: 210.1 Result Comment: Cecy min D StatusDeficiency: <20 ng/mL (50nmol/L)Insufficiency: 20-30 ng/mL (50-75 nmol/L)Sufficiency: 30-100 ng/mL (75-250 nmol/L)Toxicity: >100 ng/mL (>250 nmol/L) Performed By: #### L 500.2500, L501.5200, L503.0106, L501.9520, L500.4100, L100.0100, L506.1001 ####[facility] [address] [place], [address] LDL calc ser/plasOrdered By: Verna Hui on 10-04-2024 LDL Cholesterol, Calculated 75 mg/dL [facility] Comment on above: Uzwjqecofk=274-102 m g/dL & Higher Najd=528 mg/dL or greater Lipid Profileon 10-04-2024 CHOL:HDL 3.05 Normal [facility] Comment on above: Order Comment: 210.1 Performed By: #### L 500.2500, L501.5200, L503.0106, L501.9520, L500.4100, L100.0100, L506.1001 ####[facility] [address] [place], [address] Cholesterol [Mass/Vol] 134 mg/dL Normal <=200 [facility] Comment on above: Order Comment: 210.1 Result Comment: Chol esterol level, Desirable <200 mg/dLBorderline high cholesterol 200-239 mg/dLHigh cholesterol >=240 mg/dLRecommendations of the NCEP Adult Treatment Panel for thefollowing risk-cutoff thresholds for the [place] Americanpulation. Performed By: #### L 500.2500, L501.5200, L503.0106, L501.9520, L500.4100, L100.0100, L506.1001 ####[facility] [address] [place], [address] Cholesterol in HDL [Mass/Vol] 44 mg/dL Normal [facility] Comment on above: Order Comment: 210.1 Result Comment: Trang onal Cholesterol Education Program (NCEP) guidelines:<40 mg/dL: Low HDL-cholesterol (major risk factor for CHD)>= 60 mg/dL: High HDL-cholesterol (negative risk factor forCHD)HDL-cholesterol is affected by a number of factors, e.g.smoking, exercise, hormones, sex and age. Performed By: #### L 500.2500, L501.5200, L503.0106, L501.9520, L500.4100, L100.0100, L506.1001 ####[facility] [address] [place], [address] Cholesterol in LDL [Mass/Vol] 75 mg/dL Normal [facility] Comment on above: Order Comment: 210.1 Result Comment: Bord zftigr=844-469 mg/dL Higher Zhjs=230 mg/dL or greater Performed By: #### L 500.2500, L501.5200, L503.0106, L501.9520, L500.4100, L100.0100, L506.1001 ####[facility] [address] [place], [address] Cholesterol in VLDL [Mass/Vol] 15 mg/dL Normal 5-40 [facility] Comment on above: Order Comment: 210.1 Performed By: #### L 500.2500, L501.5200, L503.0106, L501.9520, L500.4100, L100.0100, L506.1001 ####[facility] [address] [place], [address] Triglyceride [Mass/Vol] 76 mg/dL Normal [facility] Comment on above: Order Comment: 210.1 Result Comment: The drugs N-Acetylcysteine and Metamizole may falselydepress this assay.Normal range: <150 mg/dLBorderline High: 150-199 mg/dLHigh: 200-499 mg/dLVery High: >500 mg/dL Performed By: #### L 500.2500, L501.5200, L503.0106, L501.9520, L500.4100, L100.0100, L506.1001 ####[facility] [address] [place], [address] Lymphocytes Auto (Unsp spec) [#/Vol]Ordered By: Verna Hui on 10-04-2024 Lymphocytes (Bld) [#/Vol] 1.54 10*3/uL 0.83-4.51 [facility] Lymphocytes/100 WBC Auto (Un sp spec)Ordered By: Verna Hui on 10-04-2024 Lymphocytes/100 WBC (Bld) 18.8 % Low 19-41 [facility] MCV (mean corpuscular volume ) determinationOrdered By: Verna Hui on 10-04-2024 MCV (RBC) [Entitic vol] 96.4 fL High 80-94 [facility] Magnesiumon 10-04-2024 Magnesium [Mass/Vol] 2.1 mg/dL Normal 1.5-2.2 [facility] Comment on above: Order Comment: 210.1 Performed By: #### L 500.2500, L501.5200, L503.0106, L501.9520, L500.4100, L100.0100, L506.1001 ####[facility] [address] [place], [address] Magnesium (Unsp spec) [Mass/ Vol]Ordered By: Verna Hui on 10-04-2024 Magnesium [Mass/Vol] 2.1 mg/dL 1.5-2.2 [facility] Mean corpuscular hemoglobin (MCH) determinationOrdered By: eVrna Hui on 10-04-2024 MCH (RBC) [Entitic mass] 32.9 pg High 27.0-32.0 [facility] Mean corpuscular hemoglobin concentration (MCHC) determinationOrdered By: Verna Hui on 10-04-2024 MCHC (RBC) [Mass/Vol] 34.1 g/dL 32-36 [facility] Mean platelet volume determi nationOrdered By: Verna Hui on 10-04-2024 Platelet mean volume (Bld) [Entitic vol] 10.5 fL 6.2-12.0 [facility] Monocyte percentageOrdered B y: Verna Hui on 10-04-2024 Monocytes/100 WBC (Bld) 11.1 % High 0-10 [facility] Neutrophil percentageOrdered By: Verna Hui on 10-04-2024 Neutrophils/100 WBC (Bld) 67.0 % 47-70 [facility] Nucleated red blood cell per centageOrdered By: Verna Hui on 10-04-2024 Nucleated RBC/100 WBC (Bld) [Ratio] 0 % 0-5 [facility] Platelet countOrdered By: Emigdio Hui on 10-04-2024 Platelets (Bld) [#/Vol] 244 10*3/uL 150-450 [facility] Potassium (Unsp spec) [Mass/ Vol]Ordered By: Verna Hui on 10-04-2024 Potassium [Moles/Vol] 4.1 mmol/L 3.3-5.1 [facility] RBC Auto (Bld) [#/Vol]Ordere d By: Verna Hui on 10-04-2024 RBC (Bld) [#/Vol] 3.65 10*6/uL Low 4.6-6.2 [facility] Screening total cholesterol/ high density lipoprotein (HDL) cholesterol ratioOrdered By: Verna Hui on 10-04-2024 Cholesterol.total/Choles terol in HDL [Mass ratio] 3.05 {ratio} [facility] Serum creatinine measurement (mass/volume)Ordered By: Verna Hui on 10-04-2024 Creatinine [Mass/Vol] 0.60 mg/dL Low 0.70-1.20 [facility] Serum glucose measurement (m ass/volume)Ordered By: Verna Hui on 10-04-2024 Glucose [Mass/Vol] 120 mg/dL High 70-99 [facility] Serum or plasma calcium jody urement (mass/volume)Ordered By: Verna Hui on 10-04-2024 Calcium [Mass/Vol] 8.3 mg/dL 7.6-11.0 [facility] Serum or plasma cholesterol in HDL measurement (mass/volume)Ordered By: Verna Hui on 10-04-2024 Cholesterol in HDL [Mass/Vol] 44 mg/dL >40 [facility] Comment on above: National Cholesterol Education Program (NCEP) guidelines:<40 mg/dL: Low HDL-cholesterol (major risk factor for CHD)>= 60 mg/dL: High HDL-cholesterol (negative risk factor for CHD)HDL-cholesterol is affected by a number of factors, e.g. smoking, exercise, hormones, sex and age. Serum or plasma cholesterol measurement (mass/volume)Ordered By: Verna Hui on 10-04-2024 Cholesterol [Mass/Vol] 134 mg/dL <201 [facility] Comment on above: Cholesterol level, D esirable <200 mg/dLBorderline high cholesterol 200-239 mg/dLHigh cholesterol >=240 mg/dLRecommendations of the NCEP Adult Treatment Panel for the following risk-cutoff thresholds for the [place] population. Serum or plasma urea nitroge n measurement (mass/volume)Ordered By: Verna Hui on 10-04-2024 Urea nitrogen [Mass/Vol] 20 mg/dL High 4-19 [facility] Sodium levelOrdered By: Leonard Hui on 10-04-2024 Sodium [Moles/Vol] 138 mmol/L 133-145 [facility] TSH DL <= 0.005 mIU/L QnOrde red By: Verna Hui on 10-04-2024 Thyroid Stimulating Hormone (TSH) 1.900 uIU/mL 0.300-4.200 [facility] Thyroid Stim Hormone (TSH)on 10-04-2024 TSH 1.900 uIU/mL Normal 0.300-4.200 [facility] Comment on above: Order Comment: 210.1 Performed By: #### L 500.2500, L501.5200, L503.0106, L501.9520, L500.4100, L100.0100, L506.1001 ####[facility] [address] [place], [address] Triglycerides measurementOrd ered By: Verna Hui on 10-04-2024 Triglyceride [Mass/Vol] 76 mg/dL <199 [facility] Comment on above: The drugs N-Acetylcy steine and Metamizole may falsely depress this assay. Normal range: <150 mg/dLBorderline High: 150-199 mg/dLHigh: 200-499 mg/dLVery High: >500 mg/dL Vitamin B12 ser/plasOrdered By: Verna Hui on 10-04-2024 Cobalamin (Vitamin B12) [Mass/Vol] 298 pg/mL 180-914 [facility] Vitamin D, 25-hydroxyOrdered By: Verna Hui on 10-04-2024 Vitamin D 25-Hydroxy 14.6 ng/mL Low 30-100 [facility] Comment on above: Vitamin D StatusDefi ciency: <20 ng/mL (50nmol/L)Insufficiency: 20-30 ng/mL (50-75 nmol/L)Sufficiency: 30-100 ng/mL (75-250 nmol/L)Toxicity: >100 ng/mL (>250 nmol/L) White blood cell (WBC) count Ordered By: Verna Hui on 10-04-2024 WBC (Bld) [#/Vol] 8.2 10*3/uL 4.4-11.0 [facility] Basic Metabolic Profile (BMP )on 10-03-2024 BUN Normal 4-19 [facility] Comment on above: Result Comment: Canc elled via OM: Order cancelled - Patient discharged Performed By: #### L 500.2500, L100.0100 ####[facility] [address] [place], [address] Order Comment: 210.1 Result Comment: UTO X2 Performed By: #### L 500.4100, L500.2500, L100.0100 ####[facility] [address] [place], [address] BUN/CRE Normal 10-20 [facility] Comment on above: Result Comment: Canc elled via OM: Order cancelled - Patient discharged Performed By: #### L 500.2500, L100.0100 ####[facility] [address] [place], [address] Order Comment: 210.1 Result Comment: UTO X2 Performed By: #### L 500.4100, L500.2500, L100.0100 ####[facility] [address] [place], [address] Calcium Normal 7.6-11.0 [facility] Comment on above: Result Comment: Canc elled via OM: Order cancelled - Patient discharged Performed By: #### L 500.2500, L100.0100 ####[facility] [address] [place], [address] Order Comment: 210.1 Result Comment: UTO X2 Performed By: #### L 500.4100, L500.2500, L100.0100 ####[facility] [address] [place], [address] CL Normal 98-107 [facility] Comment on above: Result Comment: Canc elled via OM: Order cancelled - Patient discharged Performed By: #### L 500.2500, L100.0100 ####[facility] [address] [place], [address] CO2 Normal 22.0-29.0 [facility] Comment on above: Result Comment: Canc elled via OM: Order cancelled - Patient discharged Performed By: #### L 500.2500, L100.0100 ####[facility] [address] [place], [address] Order Comment: 210.1 Result Comment: UTO X2 Performed By: #### L 500.4100, L500.2500, L100.0100 ####[facility] [address] [place], [address] CREAT,SERUM Normal 0.70-1.20 [facility] Comment on above: Result Comment: Canc elled via OM: Order cancelled - Patient discharged Performed By: #### L 500.2500, L100.0100 ####[facility] [address] [place], [address] Order Comment: 210.1 Result Comment: UTO X2 Performed By: #### L 500.4100, L500.2500, L100.0100 ####[facility] [address] [place], [address] eGFR Normal >60 [facility] Comment on above: Result Comment: Canc elled via OM: Order cancelled - Patient discharged Performed By: #### L 500.2500, L100.0100 ####[facility] [address] [place], [address] Order Comment: 210.1 Result Comment: UTO X2 Performed By: #### L 500.4100, L500.2500, L100.0100 ####[facility] [address] [place], [address] GAP Normal 5-15 [facility] Comment on above: Result Comment: Canc elled via OM: Order cancelled - Patient discharged Performed By: #### L 500.2500, L100.0100 ####[facility] [address] [place], [address] GLU Normal 70-99 [facility] Comment on above: Result Comment: Canc elled via OM: Order cancelled - Patient discharged Performed By: #### L 500.2500, L100.0100 ####[facility] [address] [place], [address] Order Comment: 210.1 Result Comment: UTO X2 Performed By: #### L 500.4100, L500.2500, L100.0100 ####[facility] [address] [place], [address] Potassium Normal 3.3-5.1 [facility] Comment on above: Result Comment: Canc elled via OM: Order cancelled - Patient discharged Performed By: #### L 500.2500, L100.0100 ####[facility] [address] [place], [address] Order Comment: 210.1 Result Comment: UTO X2 Performed By: #### L 500.4100, L500.2500, L100.0100 ####[facility] [address] [place], [address] Basic Metabolic Profile (BMP) Normal 136-145 [facility] Comment on above: Result Comment: Canc elled via OM: Order cancelled - Patient discharged Performed By: #### L 500.2500, L100.0100 ####[facility] [address] [place], [address] Anion Gap Normal 5-15 [facility] Comment on above: Order Comment: 210.1 Result Comment: UTO X2 Performed By: #### L 500.4100, L500.2500, L100.0100 ####[facility] [address] [place], [address] Chloride Normal 96-108 [facility] Comment on above: Order Comment: 210.1 Result Comment: UTO X2 Performed By: #### L 500.4100, L500.2500, L100.0100 ####[facility] [address] [place], [address] Sodium Normal 133-145 [facility] Comment on above: Order Comment: 210.1 Result Comment: UTO X2 Performed By: #### L 500.4100, L500.2500, L100.0100 ####[facility] [address] [place], [address] CBC W/Diff, Automatedon 03-0 Absolute Neut Normal 2.0-7.7 [facility] Comment on above: Result Comment: Canc elled via OM: Order cancelled - Patient discharged Performed By: #### L 500.2500, L100.0100 ####[facility] [address] [place], [address] Order Comment: 210.1 Result Comment: UTO X2 Performed By: #### L 500.4100, L500.2500, L100.0100 ####[facility] [address] [place], [address] HCT Normal 40-54 [facility] Comment on above: Result Comment: Canc elled via OM: Order cancelled - Patient discharged Performed By: #### L 500.2500, L100.0100 ####[facility] [address] [place], [address] Order Comment: 210.1 Result Comment: UTO X2 Performed By: #### L 500.4100, L500.2500, L100.0100 ####[facility] [address] [place], [address] HGB Normal 13.0-16.5 [facility] Comment on above: Result Comment: Canc elled via OM: Order cancelled - Patient discharged Performed By: #### L 500.2500, L100.0100 ####[facility] [address] [place], [address] Order Comment: 210.1 Result Comment: UTO X2 Performed By: #### L 500.4100, L500.2500, L100.0100 ####[facility] [address] [place], [address] MCH Normal 27.0-32.0 [facility] Comment on above: Result Comment: Canc elled via OM: Order cancelled - Patient discharged Performed By: #### L 500.2500, L100.0100 ####[facility] [address] [place], [address] Order Comment: 210.1 Result Comment: UTO X2 Performed By: #### L 500.4100, L500.2500, L100.0100 ####[facility] [address] [place], [address] MCHC Normal 32-36 [facility] Comment on above: Result Comment: Canc elled via OM: Order cancelled - Patient discharged Performed By: #### L 500.2500, L100.0100 ####[facility] [address] [place], [address] Order Comment: 210.1 Result Comment: UTO X2 Performed By: #### L 500.4100, L500.2500, L100.0100 ####[facility] [address] [place], [address] MCV Normal 80-94 [facility] Comment on above: Result Comment: Canc elled via OM: Order cancelled - Patient discharged Performed By: #### L 500.2500, L100.0100 ####[facility] [address] [place], [address] Order Comment: 210.1 Result Comment: UTO X2 Performed By: #### L 500.4100, L500.2500, L100.0100 ####[facility] [address] [place], [address] NEUT% Normal 47-70 [facility] Comment on above: Result Comment: Canc elled via OM: Order cancelled - Patient discharged Performed By: #### L 500.2500, L100.0100 ####[facility] [address] [place], [address] Order Comment: 210.1 Result Comment: UTO X2 Performed By: #### L 500.4100, L500.2500, L100.0100 ####[facility] [address] [place], [address] PLT Normal 150-450 [facility] Comment on above: Result Comment: Canc elled via OM: Order cancelled - Patient discharged Performed By: #### L 500.2500, L100.0100 ####[facility] [address] [place], [address] Order Comment: 210.1 Result Comment: UTO X2 Performed By: #### L 500.4100, L500.2500, L100.0100 ####[facility] [address] [place], [address] RBC Normal 4.6-6.2 [facility] Comment on above: Result Comment: Canc elled via OM: Order cancelled - Patient discharged Performed By: #### L 500.2500, L100.0100 ####[facility] [address] [place], [address] Order Comment: 210.1 Result Comment: UTO X2 Performed By: #### L 500.4100, L500.2500, L100.0100 ####[facility] [address] [place], [address] RDW CV Normal 11.6-14.6 [facility] Comment on above: Result Comment: Canc elled via OM: Order cancelled - Patient discharged Performed By: #### L 500.2500, L100.0100 ####[facility] [address] [place], [address] Order Comment: 210.1 Result Comment: UTO X2 Performed By: #### L 500.4100, L500.2500, L100.0100 ####[facility] [address] [place], [address] RDW SD Normal 35.1-43.9 [facility] Comment on above: Result Comment: Canc elled via OM: Order cancelled - Patient discharged Performed By: #### L 500.2500, L100.0100 ####[facility] [address] [place], [address] Order Comment: 210.1 Result Comment: UTO X2 Performed By: #### L 500.4100, L500.2500, L100.0100 ####[facility] [address] [place], [address] WBC Normal 4.4-11.0 [facility] Comment on above: Result Comment: Canc elled via OM: Order cancelled - Patient discharged Performed By: #### L 500.2500, L100.0100 ####[facility] [address] [place], [address] Order Comment: 210.1 Result Comment: UTO X2 Performed By: #### L 500.4100, L500.2500, L100.0100 ####[facility] [address] [place], [address] Lipid Profileon 10-03-2024 CHOL Normal <=200 [facility] Comment on above: Order Comment: 210.1 Result Comment: UTO X2 Performed By: #### L 500.4100, L500.2500, L100.0100 ####[facility] [address] [place], [address] CHOL:HDL Normal [facility] Comment on above: Order Comment: 210.1 Result Comment: UTO X2 Performed By: #### L 500.4100, L500.2500, L100.0100 ####[facility] [address] [place], [address] CLDL Normal [facility] Comment on above: Order Comment: 210.1 Result Comment: UTO X2 Performed By: #### L 500.4100, L500.2500, L100.0100 ####[facility] [address] [place], [address] HDL Normal [facility] Comment on above: Order Comment: 210.1 Result Comment: UTO X2 Performed By: #### L 500.4100, L500.2500, L100.0100 ####[facility] [address] [place], [address] TRIG Normal [facility] Comment on above: Order Comment: 210.1 Result Comment: UTO X2 Performed By: #### L 500.4100, L500.2500, L100.0100 ####[facility] [address] [place], [address] VLDL Normal 5-40 [facility] Comment on above: Order Comment: 210.1 Result Comment: UTO X2 Performed By: #### L 500.4100, L500.2500, L100.0100 ####[facility] [address] [place], [address] Basic Metabolic Profile (BMP )on 10-02-2024 BUN Normal 4-19 [facility] Comment on above: Result Comment: Canc elled via OM: Order cancelled - Patient discharged Performed By: #### L 100.0100, L500.2500 ####[facility] [address] [place], [address] BUN/CRE Normal 10-20 [facility] Comment on above: Result Comment: Canc elled via OM: Order cancelled - Patient discharged Performed By: #### L 100.0100, L500.2500 ####[facility] [address] [place], [address] Calcium Normal 7.6-11.0 [facility] Comment on above: Result Comment: Canc elled via OM: Order cancelled - Patient discharged Performed By: #### L 100.0100, L500.2500 ####[facility] [address] [place], [address] CL Normal 98-107 [facility] Comment on above: Result Comment: Canc elled via OM: Order cancelled - Patient discharged Performed By: #### L 100.0100, L500.2500 ####[facility] [address] [place], [address] CO2 Normal 21.0-32.0 [facility] Comment on above: Result Comment: Canc elled via OM: Order cancelled - Patient discharged Performed By: #### L 100.0100, L500.2500 ####[facility] [address] [place], [address] CREAT,SERUM Normal 0.8-1.3 [facility] Comment on above: Result Comment: Canc elled via OM: Order cancelled - Patient discharged Performed By: #### L 100.0100, L500.2500 ####[facility] [address] [place], [address] eGFR Normal >60 [facility] Comment on above: Result Comment: Canc elled via OM: Order cancelled - Patient discharged Performed By: #### L 100.0100, L500.2500 ####[facility] [address] [place], [address] GAP Normal 5-15 [facility] Comment on above: Result Comment: Canc elled via OM: Order cancelled - Patient discharged Performed By: #### L 100.0100, L500.2500 ####[facility] [address] [place], [address] GLU Normal 70-99 [facility] Comment on above: Result Comment: Canc elled via OM: Order cancelled - Patient discharged Performed By: #### L 100.0100, L500.2500 ####[facility] [address] [place], [address] Potassium Normal 3.5-5.1 [facility] Comment on above: Result Comment: Canc elled via OM: Order cancelled - Patient discharged Performed By: #### L 100.0100, L500.2500 ####[facility] [address] [place], [address] Basic Metabolic Profile (BMP) Normal 136-145 [facility] Comment on above: Result Comment: Canc elled via OM: Order cancelled - Patient discharged Performed By: #### L 100.0100, L500.2500 ####[facility] [address] [place], [address] CBC W/Diff, Automatedon 03-0 Absolute Neut Normal 2.0-7.7 [facility] Comment on above: Result Comment: Canc elled via OM: Order cancelled - Patient discharged Performed By: #### L 100.0100, L500.2500 ####[facility] [address] [place], [address] HCT Normal 40-54 [facility] Comment on above: Result Comment: Canc elled via OM: Order cancelled - Patient discharged Performed By: #### L 100.0100, L500.2500 ####[facility] [address] [place], [address] HGB Normal 13.0-16.5 [facility] Comment on above: Result Comment: Canc elled via OM: Order cancelled - Patient discharged Performed By: #### L 100.0100, L500.2500 ####[facility] [address] [place], [address] MCH Normal 27.0-32.0 [facility] Comment on above: Result Comment: Canc elled via OM: Order cancelled - Patient discharged Performed By: #### L 100.0100, L500.2500 ####[facility] [address] [place], [address] MCHC Normal 32-36 [facility] Comment on above: Result Comment: Canc elled via OM: Order cancelled - Patient discharged Performed By: #### L 100.0100, L500.2500 ####[facility] [address] [place], [address] MCV Normal 80-94 [facility] Comment on above: Result Comment: Canc elled via OM: Order cancelled - Patient discharged Performed By: #### L 100.0100, L500.2500 ####[facility] [address] [place], [address] NEUT% Normal 47-70 [facility] Comment on above: Result Comment: Canc elled via OM: Order cancelled - Patient discharged Performed By: #### L 100.0100, L500.2500 ####[facility] [address] [place], [address] PLT Normal 150-450 [facility] Comment on above: Result Comment: Canc elled via OM: Order cancelled - Patient discharged Performed By: #### L 100.0100, L500.2500 ####[facility] [address] [place], [address] RBC Normal 4.6-6.2 [facility] Comment on above: Result Comment: Canc elled via OM: Order cancelled - Patient discharged Performed By: #### L 100.0100, L500.2500 ####[facility] [address] [place], [address] RDW CV Normal 11.6-14.6 [facility] Comment on above: Result Comment: Canc elled via OM: Order cancelled - Patient discharged Performed By: #### L 100.0100, L500.2500 ####[facility] [address] [place], [address] RDW SD Normal 35.1-43.9 [facility] Comment on above: Result Comment: Canc elled via OM: Order cancelled - Patient discharged Performed By: #### L 100.0100, L500.2500 ####[facility] [address] [place], [address] WBC Normal 4.4-11.0 [facility] Comment on above: Result Comment: Canc elled via OM: Order cancelled - Patient discharged Performed By: #### L 100.0100, L500.2500 ####[facility] [address] [place], [address] Basic Metabolic Profile (BMP )on 10-01-2024 BUN Normal 4-19 [facility] Comment on above: Result Comment: Canc elled via OM: Order cancelled - Patient discharged Performed By: #### L 100.0100, L500.2500 ####[facility] [address] [place], [address] BUN/CRE Normal 10-20 [facility] Comment on above: Result Comment: Canc elled via OM: Order cancelled - Patient discharged Performed By: #### L 100.0100, L500.2500 ####[facility] [address] [place], [address] Calcium Normal 7.6-11.0 [facility] Comment on above: Result Comment: Canc elled via OM: Order cancelled - Patient discharged Performed By: #### L 100.0100, L500.2500 ####[facility] [address] [place], [address] CL Normal 98-107 [facility] Comment on above: Result Comment: Canc elled via OM: Order cancelled - Patient discharged Performed By: #### L 100.0100, L500.2500 ####[facility] [address] [place], [address] CO2 Normal 21.0-32.0 [facility] Comment on above: Result Comment: Canc elled via OM: Order cancelled - Patient discharged Performed By: #### L 100.0100, L500.2500 ####[facility] [address] [place], [address] CREAT,SERUM Normal 0.8-1.3 [facility] Comment on above: Result Comment: Canc elled via OM: Order cancelled - Patient discharged Performed By: #### L 100.0100, L500.2500 ####[facility] [address] [place], [address] eGFR Normal >60 [facility] Comment on above: Result Comment: Canc elled via OM: Order cancelled - Patient discharged Performed By: #### L 100.0100, L500.2500 ####[facility] [address] [place], [address] GAP Normal 5-15 [facility] Comment on above: Result Comment: Canc elled via OM: Order cancelled - Patient discharged Performed By: #### L 100.0100, L500.2500 ####[facility] [address] [place], [address] GLU Normal 70-99 [facility] Comment on above: Result Comment: Canc elled via OM: Order cancelled - Patient discharged Performed By: #### L 100.0100, L500.2500 ####[facility] [address] [place], [address] Potassium Normal 3.5-5.1 [facility] Comment on above: Result Comment: Canc elled via OM: Order cancelled - Patient discharged Performed By: #### L 100.0100, L500.2500 ####[facility] [address] [place], [address] Basic Metabolic Profile (BMP) Normal 136-145 [facility] Comment on above: Result Comment: Canc elled via OM: Order cancelled - Patient discharged Performed By: #### L 100.0100, L500.2500 ####[facility] [address] [place], [address] CBC W/Diff, Automatedon 03-0 Absolute Neut Normal 2.0-7.7 [facility] Comment on above: Result Comment: Canc elled via OM: Order cancelled - Patient discharged Performed By: #### L 100.0100, L500.2500 ####[facility] [address] [place], [address] HCT Normal 40-54 [facility] Comment on above: Result Comment: Canc elled via OM: Order cancelled - Patient discharged Performed By: #### L 100.0100, L500.2500 ####[facility] [address] [place], [address] HGB Normal 13.0-16.5 [facility] Comment on above: Result Comment: Canc elled via OM: Order cancelled - Patient discharged Performed By: #### L 100.0100, L500.2500 ####[facility] [address] [place], [address] MCH Normal 27.0-32.0 [facility] Comment on above: Result Comment: Canc elled via OM: Order cancelled - Patient discharged Performed By: #### L 100.0100, L500.2500 ####[facility] [address] [place], [address] MCHC Normal 32-36 [facility] Comment on above: Result Comment: Canc elled via OM: Order cancelled - Patient discharged Performed By: #### L 100.0100, L500.2500 ####[facility] [address] [place], [address] MCV Normal 80-94 [facility] Comment on above: Result Comment: Canc elled via OM: Order cancelled - Patient discharged Performed By: #### L 100.0100, L500.2500 ####[facility] [address] [place], [address] NEUT% Normal 47-70 [facility] Comment on above: Result Comment: Canc elled via OM: Order cancelled - Patient discharged Performed By: #### L 100.0100, L500.2500 ####[facility] [address] [place], [address] PLT Normal 150-450 [facility] Comment on above: Result Comment: Canc elled via OM: Order cancelled - Patient discharged Performed By: #### L 100.0100, L500.2500 ####[facility] [address] [place], [address] RBC Normal 4.6-6.2 [facility] Comment on above: Result Comment: Canc elled via OM: Order cancelled - Patient discharged Performed By: #### L 100.0100, L500.2500 ####[facility] [address] [place], [address] RDW CV Normal 11.6-14.6 [facility] Comment on above: Result Comment: Canc elled via OM: Order cancelled - Patient discharged Performed By: #### L 100.0100, L500.2500 ####[facility] [address] [place], [address] RDW SD Normal 35.1-43.9 [facility] Comment on above: Result Comment: Canc elled via OM: Order cancelled - Patient discharged Performed By: #### L 100.0100, L500.2500 ####[facility] [address] [place], [address] WBC Normal 4.4-11.0 [facility] Comment on above: Result Comment: Canc elled via OM: Order cancelled - Patient discharged Performed By: #### L 100.0100, L500.2500 ####[facility] [address] [place], [address] Absolute neutrophil countOrd ered By: Tricia Taylor on 09-30-2024 Neutrophils (Bld) [#/Vol] 7.1 10*3/uL 2.0-7.7 [facility] BUN/creatinine ratioOrdered By: Shanon Bravo on 09-30-2024 Urea nitrogen/Creatinine [Mass ratio] 41.7 mg/mg High 10-20 [facility] Basic Metabolic Profile (BMP )on 09-30-2024 Anion gap [Moles/Vol] 13 mmol/L Normal 5-15 [facility] Comment on above: Performed By: #### L 500.2500 ####[facility] [address] [place], [address] BUN/CRE 41.7 RATIO High 10-20 [facility] Comment on above: Performed By: #### L 500.2500 ####[facility] [address] [place], [address] Calcium [Mass/Vol] 8.3 mg/dL Normal 7.6-11.0 [facility] Comment on above: Performed By: #### L 500.2500 ####[facility] [address] [place], [address] Chloride [Moles/Vol] 107 mmol/L Normal 96-108 [facility] Comment on above: Performed By: #### L 500.2500 ####[facility] [address] [place], [address] CO2 [Moles/Vol] 22.6 mmol/L Normal 22.0-29.0 [facility] Comment on above: Performed By: #### L 500.2500 ####[facility] [address] [place], [address] Creatinine [Mass/Vol] 0.72 mg/dL Normal 0.70-1.20 [facility] Comment on above: Performed By: #### L 500.2500 ####[facility] [address] [place], [address] ECRCL 113.02 ml/min Normal [facility] Comment on above: Performed By: #### L 500.2500 ####[facility] [address] [place], [address] GFR/1.73 sq M.predicted among non-blacks MDRD (S/P/Bld) [Vol rate/Area] 101 mL/min/{1.73_m2} Normal >60 [facility] Comment on above: Result Comment: mL/m in/1.73m2 CKD-EPI Creatinine Equation (2020) Performed By: #### L 500.2500 ####[facility] [address] [place], [address] Glucose [Mass/Vol] 99 mg/dL Normal 70-99 [facility] Comment on above: Performed By: #### L 500.2500 ####[facility] [address] [place], [address] Potassium [Moles/Vol] 3.8 mmol/L Normal 3.3-5.1 [facility] Comment on above: Performed By: #### L 500.2500 ####[facility] [address] [place], [address] Sodium [Moles/Vol] 142 mmol/L Normal 133-145 [facility] Comment on above: Performed By: #### L 500.2500 ####[facility] [address] [place], [address] Urea nitrogen [Mass/Vol] 30 mg/dL High 4-19 [facility] Comment on above: Performed By: #### L 500.2500 ####[facility] [address] [place], [address] BUN/CRE 41.1 RATIO High 10-20 [facility] Comment on above: Result Comment: WILL REORDER Performed By: #### L 500.2500, L100.0100 ####[facility] [address] [place], [address] Creatinine [Mass/Vol] 0.70 mg/dL Normal 0.70-1.20 [facility] Comment on above: Result Comment: WILL REORDER Performed By: #### L 500.2500, L100.0100 ####[facility] [address] [place], [address] ECRCL 113.02 ml/min Normal [facility] Comment on above: Result Comment: WILL REORDER Performed By: #### L 500.2500, L100.0100 ####[facility] [address] [place], [address] GFR/1.73 sq M.predicted among non-blacks MDRD (S/P/Bld) [Vol rate/Area] 102 mL/min/{1.73_m2} Normal >60 [facility] Comment on above: Result Comment: WILL REORDERmL/min/1.73m2 CKD-EPI Creatinine Equation (2020) Performed By: #### L 500.2500, L100.0100 ####[facility] [address] [place], [address] Glucose [Mass/Vol] 102 mg/dL High 70-99 [facility] Comment on above: Result Comment: WILL REORDER Performed By: #### L 500.2500, L100.0100 ####[facility] [address] [place], [address] Urea nitrogen [Mass/Vol] 29 mg/dL High 4-19 [facility] Comment on above: Result Comment: WILL REORDER Performed By: #### L 500.2500, L100.0100 ####[facility] [address] [place], [address] Calcium Normal 7.6-11.0 [facility] Comment on above: Result Comment: WILL REORDER Performed By: #### L 500.2500, L100.0100 ####[facility] [address] [place], [address] CL Normal 98-107 [facility] Comment on above: Result Comment: WILL REORDER Performed By: #### L 500.2500, L100.0100 ####[facility] [address] [place], [address] CO2 Normal 21.0-32.0 [facility] Comment on above: Result Comment: WILL REORDER Performed By: #### L 500.2500, L100.0100 ####[facility] [address] [place], [address] GAP Normal 5-15 [facility] Comment on above: Result Comment: WILL REORDER Performed By: #### L 500.2500, L100.0100 ####[facility] [address] [place], [address] Potassium Normal 3.5-5.1 [facility] Comment on above: Result Comment: WILL REORDER Performed By: #### L 500.2500, L100.0100 ####[facility] [address] [place], [address] Basic Metabolic Profile (BMP) Normal 136-145 [facility] Comment on above: Result Comment: WILL REORDER Performed By: #### L 500.2500, L100.0100 ####[facility] [address] [place], [address] Basophil percentageOrdered B y: Tricia Taylor on 09-30-2024 Basophils/100 WBC (Bld) 0.1 % 0-1 [facility] CBC W/Diff, Automatedon 09-04 Absolute Lymph 2.14 X10 3/uL Normal 0.83-4.51 [facility] Comment on above: Performed By: #### L 500.2500, L100.0100 ####[facility] [address] [place], [address] Absolute Neut 7.1 X10 3/uL Normal 2.0-7.7 [facility] Comment on above: Performed By: #### L 500.2500, L100.0100 ####[facility] [address] [place], [address] Basophils/100 WBC (Bld) 0.1 % Normal 0-1 [facility] Comment on above: Performed By: #### L 500.2500, L100.0100 ####[facility] [address] [place], [address] Eosinophils/100 WBC (Bld) 0.1 % Normal 0-5 [facility] Comment on above: Performed By: #### L 500.2500, L100.0100 ####[facility] [address] [place], [address] Erythrocyte distribution width (RBC) [Ratio] 12.8 % Normal 11.6-14.6 [facility] Comment on above: Performed By: #### L 500.2500, L100.0100 ####[facility] [address] [place], [address] Hematocrit (Bld) [Volume fraction] 35.8 % Low 40-54 [facility] Comment on above: Performed By: #### L 500.2500, L100.0100 ####[facility] [address] [place], [address] Hemoglobin (Bld) [Mass/Vol] 12.3 g/dL Low 13.0-16.5 [facility] Comment on above: Performed By: #### L 500.2500, L100.0100 ####[facility] [address] [place], [address] IG% 0.500 Normal 0.0-0.9 [facility] Comment on above: Result Comment: IG% - Immature Granulocytes (promyelocytes, myelocytes andmetamyelocytes) > 1% indicates that a LEFT SHIFT is Present. Performed By: #### L 500.2500, L100.0100 ####[facility] [address] [place], [address] Lymphocytes/100 WBC (Bld) 20.8 % Normal 19-41 [facility] Comment on above: Performed By: #### L 500.2500, L100.0100 ####[facility] [address] [place], [address] MCH (RBC) [Entitic mass] 33.2 pg High 27.0-32.0 [facility] Comment on above: Performed By: #### L 500.2500, L100.0100 ####[facility] [address] [place], [address] MCHC (RBC) [Mass/Vol] 34.4 g/dL Normal 32-36 [facility] Comment on above: Performed By: #### L 500.2500, L100.0100 ####[facility] [address] [place], [address] MCV (RBC) [Entitic vol] 96.8 fL High 80-94 [facility] Comment on above: Performed By: #### L 500.2500, L100.0100 ####[facility] [address] [place], [address] Monocytes/100 WBC (Bld) 9.7 % Normal 0-10 [facility] Comment on above: Performed By: #### L 500.2500, L100.0100 ####[facility] [address] [place], [address] Neutrophils/100 WBC (Bld) 68.8 % Normal 47-70 [facility] Comment on above: Performed By: #### L 500.2500, L100.0100 ####[facility] [address] [place], [address] Nucleated RBC (Bld) [#/Vol] 0 10*3/uL Normal 0-5 [facility] Comment on above: Performed By: #### L 500.2500, L100.0100 ####[facility] [address] [place], [address] Platelet mean volume (Bld) [Entitic vol] 10.3 fL Normal 6.2-12.0 [facility] Comment on above: Performed By: #### L 500.2500, L100.0100 ####[facility] [address] [place], [address] Platelets (Bld) [#/Vol] 179 10*3/uL Normal 150-450 [facility] Comment on above: Performed By: #### L 500.2500, L100.0100 ####[facility] [address] [place], [address] RBC (Bld) [#/Vol] 3.70 10*6/uL Low 4.6-6.2 [facility] Comment on above: Performed By: #### L 500.2500, L100.0100 ####[facility] [address] [place], [address] RDW SD 45.6 fl High 35.1-43.9 [facility] Comment on above: Performed By: #### L 500.2500, L100.0100 ####[facility] [address] [place], [address] WBC (Bld) [#/Vol] 10.3 10*3/uL Normal 4.4-11.0 [facility] Comment on above: Performed By: #### L 500.2500, L100.0100 ####[facility] [address] [place], [address] Carbon dioxide measurementOr dered By: Shanon Bravo on 09-30-2024 CO2 [Moles/Vol] 22.6 mmol/L 22.0-29.0 [facility] Chloride measurementOrdered By: Shanon Bravo on 09-30-2024 Chloride [Moles/Vol] 107 mmol/L 96-108 [facility] Eosinophil percentageOrdered By: Tricia Taylor on 09-30-2024 Eosinophils/100 WBC (Bld) 0.1 % 0-5 [facility] Erythrocyte distribution wid th (RBC) [Ratio]Ordered By: Tricia Taylor on 09-30-2024 Erythrocyte distribution width (RBC) [Entitic vol] 45.6 fL High 35.1-43.9 [facility] Erythrocyte distribution wid th ratioOrdered By: Tricia Taylor on 09-30-2024 Erythrocyte distribution width (RBC) [Ratio] 12.8 % 11.6-14.6 [facility] Estimation of creatinine brandon aranceOrdered By: Shanon Bravo on 09-30-2024 Estimated Creatinine Clearance Calc 113.02 ml/min [facility] GFR/1.73 sq M.predicted ally g non-blacks MDRD (S/P/Bld) [Vol rate/Area]Ordered By: Shanon Bravo on 09-30-2024 Estimated GFR (MDRD) Non-Af Amer 101 >60 [facility] Comment on above: mL/min/1.73m2 CKD-EP I Creatinine Equation (2020) Hematocrit Auto (Bld) [Volum e fraction]Ordered By: Tricia Taylor on 09-30-2024 Hematocrit (Bld) [Volume fraction] 35.8 % Low 40-54 [facility] Hemoglobin measurementOrdere d By: Tricia Taylor on 09-30-2024 Hemoglobin (Bld) [Mass/Vol] 12.3 g/dL Low 13.0-16.5 [facility] Immature granulocytes/100 WB C Auto (Bld)Ordered By: Tricia Taylor on 09-30-2024 Immature granulocytes/100 WBC (Bld) 0.500 % 0.0-0.9 [facility] Comment on above: IG% - Immature Granu locytes (promyelocytes, myelocytes and metamyelocytes) > 1% indicates that a LEFT SHIFT is Present. Lymphocytes Auto (Unsp spec) [#/Vol]Ordered By: Tricia Taylor on 09-30-2024 Lymphocytes (Bld) [#/Vol] 2.14 10*3/uL 0.83-4.51 [facility] Lymphocytes/100 WBC Auto (Un sp spec)Ordered By: Tricia Taylor on 09-30-2024 Lymphocytes/100 WBC (Bld) 20.8 % 19-41 [facility] MCV (mean corpuscular volume ) determinationOrdered By: Tricia Taylor on 09-30-2024 MCV (RBC) [Entitic vol] 96.8 fL High 80-94 [facility] Mean corpuscular hemoglobin (MCH) determinationOrdered By: Tricia Taylor on 09-30-2024 MCH (RBC) [Entitic mass] 33.2 pg High 27.0-32.0 [facility] Mean corpuscular hemoglobin concentration (MCHC) determinationOrdered By: Tricia Taylor on 09-30-2024 MCHC (RBC) [Mass/Vol] 34.4 g/dL 32-36 [facility] Mean platelet volume determi nationOrdered By: Tricia Taylor on 09-30-2024 Platelet mean volume (Bld) [Entitic vol] 10.3 fL 6.2-12.0 [facility] Monocyte percentageOrdered B y: Tricia Taylor on 09-30-2024 Monocytes/100 WBC (Bld) 9.7 % 0-10 [facility] Neutrophil percentageOrdered By: Tricia Taylor on 09-30-2024 Neutrophils/100 WBC (Bld) 68.8 % 47-70 [facility] Nucleated red blood cell per centageOrdered By: Tricia Taylor on 09-30-2024 Nucleated RBC/100 WBC (Bld) [Ratio] 0 % 0-5 [facility] Platelet countOrdered By: John Taylor on 09-30-2024 Platelets (Bld) [#/Vol] 179 10*3/uL 150-450 [facility] RBC Auto (Bld) [#/Vol]Ordere d By: Tricia Taylor on 09-30-2024 RBC (Bld) [#/Vol] 3.70 10*6/uL Low 4.6-6.2 [facility] Serum creatinine measurement (mass/volume)Ordered By: Shanon Bravo on 09-30-2024 Creatinine [Mass/Vol] 0.72 mg/dL 0.70-1.20 [facility] Serum glucose measurement (m ass/volume)Ordered By: Shanon Bravo on 09-30-2024 Glucose [Mass/Vol] 99 mg/dL 70-99 [facility] Serum or plasma anion gap de termination (moles/volume)Ordered By: Shanon Bravo on 09-30-2024 Anion gap [Moles/Vol] 13 mmol/L 5-15 [facility] Serum or plasma calcium jody urement (mass/volume)Ordered By: Shanon Bravo on 09-30-2024 Calcium [Mass/Vol] 8.3 mg/dL 7.6-11.0 [facility] Serum or plasma potassium me asurementOrdered By: Shanon Bravo on 09-30-2024 Potassium [Moles/Vol] 3.8 mmol/L 3.3-5.1 [facility] Serum or plasma sodium measu rement (moles/volume)Ordered By: Shanon Bravo on 09-30-2024 Sodium [Moles/Vol] 142 mmol/L 133-145 [facility] Serum or plasma urea nitroge n measurement (mass/volume)Ordered By: Shanon Bravo on 09-30-2024 Urea nitrogen [Mass/Vol] 30 mg/dL High 4-19 [facility] White blood cell (WBC) count Ordered By: Tricia Taylor on 09-30-2024 WBC (Bld) [#/Vol] 10.3 10*3/uL 4.4-11.0 [facility] Basic Metabolic Profile (BMP )on 09-29-2024 Chloride [Moles/Vol] 107 mmol/L Normal 98-107 [facility] Comment on above: Performed By: #### L 100.0100, L500.2500 ####[facility] [address] [place], [address] CO2 [Moles/Vol] 21.9 mmol/L Normal 21.0-32.0 [facility] Comment on above: Performed By: #### L 100.0100, L500.2500 ####[facility] [address] [place], [address] GAP 11 Normal 5-15 [facility] Comment on above: Performed By: #### L 100.0100, L500.2500 ####[facility] [address] [place], [address] Potassium [Moles/Vol] 4.2 mmol/L Normal 3.5-5.1 [facility] Comment on above: Performed By: #### L 100.0100, L500.2500 ####[facility] [address] [place], [address] Sodium [Moles/Vol] 140 mmol/L Normal 136-145 [facility] Comment on above: Performed By: #### L 100.0100, L500.2500 ####[facility] [address] [place], [address] Calcium [Mass/Vol] 8.5 mg/dL Normal 7.6-11.0 [facility] Comment on above: Performed By: #### L 100.0100, L500.2500 ####[facility] [address] [place], [address] CBC W/Diff, Automatedon 02-2 Absolute Lymph 0.66 X10 3/uL Low 0.83-4.51 [facility] Comment on above: Performed By: #### L 100.0100, L500.2500 ####[facility] [address] [place], [address] Absolute Neut 11.6 X10 3/uL High 2.0-7.7 [facility] Comment on above: Performed By: #### L 100.0100, L500.2500 ####[facility] [address] [place], [address] Basophils/100 WBC (Bld) 0.1 % Normal 0-1 [facility] Comment on above: Performed By: #### L 100.0100, L500.2500 ####[facility] [address] [place], [address] Eosinophils/100 WBC (Bld) 0.0 % Normal 0-5 [facility] Comment on above: Performed By: #### L 100.0100, L500.2500 ####[facility] [address] [place], [address] Erythrocyte distribution width (RBC) [Ratio] 12.8 % Normal 11.6-14.6 [facility] Comment on above: Performed By: #### L 100.0100, L500.2500 ####[facility] [address] [place], [address] Hematocrit (Bld) [Volume fraction] 36.6 % Low 40-54 [facility] Comment on above: Performed By: #### L 100.0100, L500.2500 ####[facility] [address] [place], [address] Hemoglobin (Bld) [Mass/Vol] 12.2 g/dL Low 13.0-16.5 [facility] Comment on above: Performed By: #### L 100.0100, L500.2500 ####[facility] [address] [place], [address] IG% 0.400 Normal 0.0-0.9 [facility] Comment on above: Result Comment: IG% - Immature Granulocytes (promyelocytes, myelocytes andmetamyelocytes) > 1% indicates that a LEFT SHIFT is Present. Performed By: #### L 100.0100, L500.2500 ####[facility] [address] [place], [address] Lymphocytes/100 WBC (Bld) 5.1 % Low 19-41 [facility] Comment on above: Performed By: #### L 100.0100, L500.2500 ####[facility] [address] [place], [address] MCH (RBC) [Entitic mass] 32.3 pg High 27.0-32.0 [facility] Comment on above: Performed By: #### L 100.0100, L500.2500 ####[facility] [address] [place], [address] MCHC (RBC) [Mass/Vol] 33.3 g/dL Normal 32-36 [facility] Comment on above: Performed By: #### L 100.0100, L500.2500 ####[facility] [address] [place], [address] MCV (RBC) [Entitic vol] 96.8 fL High 80-94 [facility] Comment on above: Performed By: #### L 100.0100, L500.2500 ####[facility] [address] [place], [address] Monocytes/100 WBC (Bld) 5.5 % Normal 0-10 [facility] Comment on above: Performed By: #### L 100.0100, L500.2500 ####[facility] [address] [place], [address] Neutrophils/100 WBC (Bld) 88.9 % High 47-70 [facility] Comment on above: Performed By: #### L 100.0100, L500.2500 ####[facility] [address] [place], [address] Nucleated RBC (Bld) [#/Vol] 0 10*3/uL Normal 0-5 [facility] Comment on above: Performed By: #### L 100.0100, L500.2500 ####[facility] [address] [place], [address] Platelet mean volume (Bld) [Entitic vol] 10.1 fL Normal 6.2-12.0 [facility] Comment on above: Performed By: #### L 100.0100, L500.2500 ####[facility] [address] [place], [address] Platelets (Bld) [#/Vol] 183 10*3/uL Normal 150-450 [facility] Comment on above: Performed By: #### L 100.0100, L500.2500 ####[facility] [address] [place], [address] RBC (Bld) [#/Vol] 3.78 10*6/uL Low 4.6-6.2 [facility] Comment on above: Performed By: #### L 100.0100, L500.2500 ####[facility] [address] [place], [address] RDW SD 45.6 fl High 35.1-43.9 [facility] Comment on above: Performed By: #### L 100.0100, L500.2500 ####[facility] [address] [place], [address] WBC (Bld) [#/Vol] 13.0 10*3/uL High 4.4-11.0 [facility] Comment on above: Performed By: #### L 100.0100, L500.2500 ####[facility] [address] [place], [address] Serum or plasma chloride nghia surement (moles/volume)Ordered By: Tricia Taylor on 09-29-2024 Chloride [Moles/Vol] 107 mmol/L 98-107 [facility] Arterial patency Wrist arter y --pre arterial punctureOrdered By: Tricia Taylor on 09-28-2024 Dany Test Positive [facility] Base excess Calc (BldV) [Mol es/Vol]Ordered By: Tricia Taylor on 09-28-2024 Blood Gas Base Excess -2 mmol/L -2-2 [facility] Basic Metabolic Profile (BMP )on 09-28-2024 Chloride [Moles/Vol] 105 mmol/L Normal 98-107 [facility] Comment on above: Performed By: #### L 500.2500, L100.0100 ####[facility] [address] [place], [address] CO2 [Moles/Vol] 21.4 mmol/L Normal 21.0-32.0 [facility] Comment on above: Performed By: #### L 500.2500, L100.0100 ####[facility] [address] [place], [address] GAP 13 Normal 5-15 [facility] Comment on above: Performed By: #### L 500.2500, L100.0100 ####[facility] [address] [place], [address] Potassium [Moles/Vol] 3.8 mmol/L Normal 3.5-5.1 [facility] Comment on above: Performed By: #### L 500.2500, L100.0100 ####[facility] [address] [place], [address] Sodium [Moles/Vol] 139 mmol/L Normal 136-145 [facility] Comment on above: Performed By: #### L 500.2500, L100.0100 ####[facility] [address] [place], [address] Calcium [Mass/Vol] 8.0 mg/dL Normal 7.6-11.0 [facility] Comment on above: Performed By: #### L 500.2500, L100.0100 ####[facility] [address] [place], [address] [facility] Base excess Calc (Bld) [Moles/Vol] -3 mmol/L Low -2 to +2 [facility] Comment on above: Order Comment: WAS O RIGINALLY ENTERED VENOUS BUT IS ARTERIAL. CANCELLEDTHOSE RESULTS THEN MANUALLY ENTERED.Results manually entered by WBATDORF ECHOCARDIOGRAPHY TECH and verified byJTHEOBALD ECHOCARDIOGRAPHY TECH Performed By: #### L 0.0800 ####[facility] [address] [place], [address] CO2 [Moles/Vol] 25 mmol/L Normal [facility] Comment on above: Order Comment: WAS O RIGINALLY ENTERED VENOUS BUT IS ARTERIAL. CANCELLEDTHOSE RESULTS THEN MANUALLY ENTERED.Results manually entered by WBATDORF ECHOCARDIOGRAPHY TECH and verified byJTHEOBALD ECHOCARDIOGRAPHY TECH Performed By: #### L 0.0800 ####[facility] [address] [place], [address] HCO3 (Bld) [Moles/Vol] 23.6 mmol/L Normal 22-26 [facility] Comment on above: Order Comment: WAS O RIGINALLY ENTERED VENOUS BUT IS ARTERIAL. CANCELLEDTHOSE RESULTS THEN MANUALLY ENTERED.Results manually entered by ATDO ECHOCARDIOGRAPHY TECH and verified byJTHEOBALD ECHOCARDIOGRAPHY TECH Performed By: #### L 0.0800 ####[facility] [address] [place], [address] pCO2 48.7 mmHg High 35-45 [facility] Comment on above: Order Comment: WAS O RIGINALLY ENTERED VENOUS BUT IS ARTERIAL. CANCELLEDTHOSE RESULTS THEN MANUALLY ENTERED.Results manually entered by WBATDORF ECHOCARDIOGRAPHY TECH and verified byJTHEOBALD ECHOCARDIOGRAPHY TECH Performed By: #### L 9000.0800 ####[facility] [address] [place], [address] pH (Bld) 7.29 [pH] Low 7.35-7.45 [facility] Comment on above: Order Comment: WAS O RIGINALLY ENTERED VENOUS BUT IS ARTERIAL. CANCELLEDTHOSE RESULTS THEN MANUALLY ENTERED.Results manually entered by WBATDORF ECHOCARDIOGRAPHY TECH and verified byJTHEOBALD ECHOCARDIOGRAPHY TECH Performed By: #### L 9000.0800 ####[facility] [address] [place], [address] PO2 67 mmHG Low 75-100 [facility] Comment on above: Order Comment: WAS O RIGINALLY ENTERED VENOUS BUT IS ARTERIAL. CANCELLEDTHOSE RESULTS THEN MANUALLY ENTERED.Results manually entered by WBATDORF ECHOCARDIOGRAPHY TECH and verified byJTHEOBALD ECHOCARDIOGRAPHY TECH Performed By: #### L 9000.0800 ####[facility] [address] [place], [address] SO2 91 Low 95-99 [facility] Comment on above: Order Comment: WAS O RIGINALLY ENTERED VENOUS BUT IS ARTERIAL. CANCELLEDTHOSE RESULTS THEN MANUALLY ENTERED.Results manually entered by WBATDORF ECHOCARDIOGRAPHY TECH and verified byJTHEOBALD ECHOCARDIOGRAPHY TECH Performed By: #### L 9000.0800 ####[facility] [address] [place], [address] FI02 50.0 Normal [facility] Comment on above: Order Comment: WAS O RIGINALLY ENTERED VENOUS BUT IS ARTERIAL. CANCELLEDTHOSE RESULTS THEN MANUALLY ENTERED.Results manually entered by WBATDO ECHOCARDIOGRAPHY TECH and verified byJTHEOBALD ECHOCARDIOGRAPHY TECH Performed By: #### L 9000.0800 ####[facility] [address] [place], [address] PEEP 5 Normal [facility] Comment on above: Order Comment: WAS O RIGINALLY ENTERED VENOUS BUT IS ARTERIAL. CANCELLEDTHOSE RESULTS THEN MANUALLY ENTERED.Results manually entered by WBATDORF ECHOCARDIOGRAPHY TECH and verified byJTHEOBALD ECHOCARDIOGRAPHY TECH Performed By: #### L 9000.0800 ####[facility] [address] [place], [address] RR 12 Normal [facility] Comment on above: Order Comment: WAS O RIGINALLY ENTERED VENOUS BUT IS ARTERIAL. CANCELLEDTHOSE RESULTS THEN MANUALLY ENTERED.Results manually entered by WBATDORF ECHOCARDIOGRAPHY TECH and verified byJTHEOBALD ECHOCARDIOGRAPHY TECH Performed By: #### L 9000.0800 ####[facility] [address] [place], [address] DANY TEST Positive Normal [facility] Comment on above: Order Comment: WAS O RIGINALLY ENTERED VENOUS BUT IS ARTERIAL. CANCELLEDTHOSE RESULTS THEN MANUALLY ENTERED.Results manually entered by WBATDORF ECHOCARDIOGRAPHY TECH and verified byJTHEOBALD ECHOCARDIOGRAPHY TECH Performed By: #### L 9000.0800 ####[facility] [address] [place], [address] Mode A-C Normal [facility] Comment on above: Order Comment: WAS O RIGINALLY ENTERED VENOUS BUT IS ARTERIAL. CANCELLEDTHOSE RESULTS THEN MANUALLY ENTERED.Results manually entered by WBATDO ECHOCARDIOGRAPHY TECH and verified byJTHEOBALD ECHOCARDIOGRAPHY TECH Performed By: #### L 9000.0800 ####[facility] [address] [place], [address] O2 Delivery Dev Vent Normal [facility] Comment on above: Order Comment: WAS O RIGINALLY ENTERED VENOUS BUT IS ARTERIAL. CANCELLEDTHOSE RESULTS THEN MANUALLY ENTERED.Results manually entered by ATDORF ECHOCARDIOGRAPHY TECH and verified byJTHEOBALD ECHOCARDIOGRAPHY TECH Performed By: #### L 9000.0800 ####[facility] [address] [place], [address] SITE L RADIAL Normal [facility] Comment on above: Order Comment: WAS O RIGINALLY ENTERED VENOUS BUT IS ARTERIAL. CANCELLEDTHOSE RESULTS THEN MANUALLY ENTERED.Results manually entered by ATDORF ECHOCARDIOGRAPHY TECH and verified byJTHEOBALD ECHOCARDIOGRAPHY TECH Performed By: #### L 9000.0800 ####[facility] [address] [place], [address] Vt 500.0 mL [facility] Comment on above: Order Comment: WAS O RIGINALLY ENTERED VENOUS BUT IS ARTERIAL. CANCELLEDTHOSE RESULTS THEN MANUALLY ENTERED.Results manually entered by WBATDORF ECHOCARDIOGRAPHY TECH and verified byJTHEOBALD ECHOCARDIOGRAPHY TECH Performed By: #### L 9000.0800 ####[facility] [address] [place], [address] Blood Gas Type ART Normal [facility] Comment on above: Order Comment: WAS O RIGINALLY ENTERED VENOUS BUT IS ARTERIAL. CANCELLEDTHOSE RESULTS THEN MANUALLY ENTERED.Results manually entered by ANGEL ECHOCARDIOGRAPHY TECH and verified byGARRY ECHOCARDIOGRAPHY TECH Performed By: #### L 9000.0800 ####[facility] [address] [place], [address] DANY TEST Positive Normal [facility] Comment on above: Performed By: #### L 9000.0800 ####[facility] [address] [place], [address] Base excess Calc (Bld) [Moles/Vol] -2 mmol/L Normal -2 to +2 [facility] Comment on above: Performed By: #### L 9000.0800 ####[facility] [address] [place], [address] Blood Gas Type ART Normal [facility] Comment on above: Performed By: #### L 9000.0800 ####[facility] [address] [place], [address] CO2 [Moles/Vol] 24 mmol/L Normal [facility] Comment on above: Performed By: #### L 9000.0800 ####[facility] [address] [place], [address] FI02 30.0 Normal [facility] Comment on above: Performed By: #### L 9000.0800 ####[facility] [address] [place], [address] HCO3 (Bld) [Moles/Vol] 23.2 mmol/L Normal 22-26 [facility] Comment on above: Performed By: #### L 9000.0800 ####[facility] [address] [place], [address] Mode AC Normal [facility] Comment on above: Performed By: #### L 9000.0800 ####[facility] [address] [place], [address] O2 Delivery Dev Adult Vent Normal [facility] Comment on above: Performed By: #### L 0.0800 ####[facility] [address] [place], [address] pCO2 40.5 mmHg Normal 35-45 [facility] Comment on above: Performed By: #### L 0.0800 ####[facility] [address] [place], [address] PEEP 5 Normal [facility] Comment on above: Performed By: #### L 0.0800 ####[facility] [address] [place], [address] pH (Bld) 7.37 [pH] Normal 7.35-7.45 [facility] Comment on above: Performed By: #### L 0.0800 ####[facility] [address] [place], [address] PO2 60 mmHG Low 75-100 [facility] Comment on above: Performed By: #### L 0.0800 ####[facility] [address] [place], [address] RR 12 Normal [facility] Comment on above: Performed By: #### L 8999.0800 ####[facility] [address] [place], [address] SITE L Radial Normal [facility] Comment on above: Performed By: #### L 8999.0800 ####[facility] [address] [place], [address] SO2 90 Low 95-99 [facility] Comment on above: Performed By: #### L 0.0800 ####[facility] [address] [place], [address] Vt 500.0 mL Normal [facility] Comment on above: Performed By: #### L 9000.0800 ####[facility] [address] [place], [address] Blood bicarbonate measuremen tOrdered By: Tricia Taylor on 09-28-2024 Blood Gas Bicarbonate Actual 23.2 mmol/L [facility] CBC W/Diff, Automatedon 09-04 Absolute Lymph 0.69 X10 3/uL Low 0.83-4.51 [facility] Comment on above: Performed By: #### L 500.2500, L100.0100 ####[facility] [address] [place], [address] Absolute Neut 10.6 X10 3/uL High 2.0-7.7 [facility] Comment on above: Performed By: #### L 500.2500, L100.0100 ####[facility] [address] [place], [address] Basophils/100 WBC (Bld) 0.2 % Normal 0-1 [facility] Comment on above: Performed By: #### L 500.2500, L100.0100 ####[facility] [address] [place], [address] Eosinophils/100 WBC (Bld) 0.0 % Normal 0-5 [facility] Comment on above: Performed By: #### L 500.2500, L100.0100 ####[facility] [address] [place], [address] Erythrocyte distribution width (RBC) [Ratio] 12.4 % Normal 11.6-14.6 [facility] Comment on above: Performed By: #### L 500.2500, L100.0100 ####[facility] [address] [place], [address] Hematocrit (Bld) [Volume fraction] 38.8 % Low 40-54 [facility] Comment on above: Performed By: #### L 500.2500, L100.0100 ####[facility] [address] [place], [address] Hemoglobin (Bld) [Mass/Vol] 13.0 g/dL Normal 13.0-16.5 [facility] Comment on above: Performed By: #### L 500.2500, L100.0100 ####[facility] [address] [place], [address] IG% 0.500 Normal 0.0-0.9 [facility] Comment on above: Result Comment: IG% - Immature Granulocytes (promyelocytes, myelocytes andmetamyelocytes) > 1% indicates that a LEFT SHIFT is Present. Performed By: #### L 500.2500, L100.0100 ####[facility] [address] [place], [address] Lymphocytes/100 WBC (Bld) 5.7 % Low 19-41 [facility] Comment on above: Performed By: #### L 500.2500, L100.0100 ####[facility] [address] [place], [address] MCH (RBC) [Entitic mass] 32.8 pg High 27.0-32.0 [facility] Comment on above: Performed By: #### L 500.2500, L100.0100 ####[facility] [address] [place], [address] MCHC (RBC) [Mass/Vol] 33.5 g/dL Normal 32-36 [facility] Comment on above: Performed By: #### L 500.2500, L100.0100 ####[facility] [address] [place], [address] MCV (RBC) [Entitic vol] 98.0 fL High 80-94 [facility] Comment on above: Performed By: #### L 500.2500, L100.0100 ####[facility] [address] [place], [address] Monocytes/100 WBC (Bld) 6.3 % Normal 0-10 [facility] Comment on above: Performed By: #### L 500.2500, L100.0100 ####[facility] [address] [place], [address] Neutrophils/100 WBC (Bld) 87.3 % High 47-70 [facility] Comment on above: Performed By: #### L 500.2500, L100.0100 ####[facility] [address] [place], [address] Nucleated RBC (Bld) [#/Vol] 0 10*3/uL Normal 0-5 [facility] Comment on above: Performed By: #### L 500.2500, L100.0100 ####[facility] [address] [place], [address] Platelet mean volume (Bld) [Entitic vol] 10.0 fL Normal 6.2-12.0 [facility] Comment on above: Performed By: #### L 500.2500, L100.0100 ####[facility] [address] [place], [address] Platelets (Bld) [#/Vol] 158 10*3/uL Normal 150-450 [facility] Comment on above: Performed By: #### L 500.2500, L100.0100 ####[facility] [address] [place], [address] RBC (Bld) [#/Vol] 3.96 10*6/uL Low 4.6-6.2 [facility] Comment on above: Performed By: #### L 500.2500, L100.0100 ####[facility] [address] [place], [address] RDW SD 44.9 fl High 35.1-43.9 [facility] Comment on above: Performed By: #### L 500.2500, L100.0100 ####[facility] [address] [place], [address] WBC (Bld) [#/Vol] 12.1 10*3/uL High 4.4-11.0 [facility] Comment on above: Performed By: #### L 500.2500, L100.0100 ####[facility] [address] [place], [address] CPK Total, Creatine Kinaseon 09-28-2024 CPK TOTAL 197 U/L High 24-195 [facility] Comment on above: Order Comment: Comme nts: DC when propofol is d/c'd Performed By: #### L 501.3620, L501.5000 ####[facility] [address] [place], [address] Determination of fraction of inspired oxygenOrdered By: Tricia Taylor on 09-28-2024 Blood Gas Oxygen Percent 30.0 [facility] No Panel InformationOrdered By: Tricia Taylor on 09-28-2024 Bedside Blood Gas PEEP 5 [facility] Blood Gas Respiration Rate 12 [facility] Blood Gas Sample Site L Radial [facility] Blood Gas Specimen Type ART [facility] Blood Gas Tidal Volume 500.0 mL [facility] Blood Gas Vent Mode AC [facility] Oxygen Delivery Device Adult Vent [facility] Oxygen saturation measuremen tOrdered By: Tricia Taylor on 09-28-2024 Blood Gas Oxygen Saturation 90 % Low 95-99 [facility] Partial pressure of carbon d ioxide measurementOrdered By: Tricia Taylor on 09-28-2024 Arterial Blood Partial Pressure CO2 40.5 mmHg 35-45 [facility] Partial pressure of oxygen m easurementOrdered By: Tricia Taylor on 09-28-2024 Arterial Blood Partial Pressure O2 60 mmHG Low 75-100 [facility] Serum or plasma creatine kin ase activityOrdered By: Chris Mascorro on 09-28-2024 CK [Catalytic activity/Vol] 197 U/L High 24-195 [facility] Total carbon dioxide measure mentOrdered By: Tricia Taylor on 09-28-2024 Blood Gas Total CO2 24 mmol/L [facility] Triglycerideson 09-28-2024 Triglyceride [Mass/Vol] 321 mg/dL High [facility] Comment on above: Order Comment: Comme nts: DC when propofol is d/c'dDC when propofol is d/c'd Result Comment: The drugs N-Acetylcysteine and Metamizole may falselydepress this assay.Normal range: <150 mg/dLBorderline High: 150-199 mg/dLHigh: 200-499 mg/dLVery High: >500 mg/dL Performed By: #### L 501.3620, L501.5000 ####[facility] [address] [place], [address] Triglycerides measurementOrd ered By: Chris Mascorro on 09-28-2024 Triglyceride [Mass/Vol] 321 mg/dL High <199 [facility] Comment on above: The drugs N-Acetylcy steine and Metamizole may falsely depress this assay. Normal range: <150 mg/dLBorderline High: 150-199 mg/dLHigh: 200-499 mg/dLVery High: >500 mg/dL Venous Blood Gason Blood Gas Type ART Normal [facility] Comment on above: Order Comment: Arter ial blood gas was entered as a venous blood gas.Results manually entered by BALA ECHOCARDIOGRAPHY TECH AND VERIFIED BYANGEL ECHOCARDIOGRAPHY TECH ON 09/28/2024 AT 0645. Result Comment: Pratima rial blood gas was entered as a venous blood gas. AMENDED REPORT 09/28/24 0639 BLD GAS TYPE previously reported as: VENblood gas. Performed By: #### L 9000.0810 ####[facility] [address] [place], [place], [address] pH (Unsp spec)Ordered By: John Taylor on 09-28-2024 Blood Gas pH 7.37 7.35-7.45 [facility] Blood Gases by CPSon 025 Base excess Calc (Bld) [Moles/Vol] -2 mmol/L Normal -2 to +2 [facility] Comment on above: Performed By: #### L 8999.0800 ####[facility] [address] [place], [address] Blood Gas Type ART Normal [facility] Comment on above: Performed By: #### L 8999.0800 ####[facility] [address] [place], [address] CO2 [Moles/Vol] 25 mmol/L Normal [facility] Comment on above: Performed By: #### L 8999.0800 ####[facility] [address] [place], [address] FI02 50.0 Normal [facility] Comment on above: Performed By: #### L 8999.0800 ####[facility] [address] [place], [address] HCO3 (Bld) [Moles/Vol] 23.9 mmol/L Normal 22-26 [facility] Comment on above: Performed By: #### L 8999.0800 ####[facility] [address] [place], [address] Mode Not entered Normal [facility] Comment on above: Performed By: #### L 8999.0800 ####[facility] [address] [place], [address] O2 Delivery Dev Venti Mask Normal [facility] Comment on above: Performed By: #### L 8999.0800 ####[facility] [address] [place], [address] pCO2 41.9 mmHg Normal 35-45 [facility] Comment on above: Performed By: #### L 8999.0800 ####[facility] [address] [place], [address] pH (Bld) 7.36 [pH] Normal 7.35-7.45 [facility] Comment on above: Performed By: #### L 9000.0800 ####[facility] [address] [place], [address] PO2 70 mmHG Low 75-100 [facility] Comment on above: Performed By: #### L 9000.0800 ####[facility] [address] [place], [address] SITE R Brach Normal [facility] Comment on above: Performed By: #### L 9000.0800 ####[facility] [address] [place], [address] SO2 93 Low 95-99 [facility] Comment on above: Performed By: #### L 9000.0800 ####[facility] [address] [place], [address] CBC W/Diff, Automatedon 02-2 5-2024 Absolute Lymph 0.80 X10 3/uL Low 0.83-4.51 [facility] Comment on above: Performed By: #### L 100.0100 ####[facility] [address] [place], [address] Absolute Neut 7.2 X10 3/uL Normal 2.0-7.7 [facility] Comment on above: Performed By: #### L 100.0100 ####[facility] [address] [place], [address] Basophils/100 WBC (Bld) 0.5 % Normal 0-1 [facility] Comment on above: Performed By: #### L 100.0100 ####[facility] [address] [place], [address] Eosinophils/100 WBC (Bld) 0.5 % Normal 0-5 [facility] Comment on above: Performed By: #### L 100.0100 ####[facility] [address] [place], [address] Erythrocyte distribution width (RBC) [Ratio] 12.4 % Normal 11.6-14.6 [facility] Comment on above: Performed By: #### L 100.0100 ####[facility] [address] [place], [address] Hematocrit (Bld) [Volume fraction] 42.8 % Normal 40-54 [facility] Comment on above: Performed By: #### L 100.0100 ####[facility] [address] [place], [address] Hemoglobin (Bld) [Mass/Vol] 14.4 g/dL Normal 13.0-16.5 [facility] Comment on above: Performed By: #### L 100.0100 ####[facility] [address] [place], [address] IG% 0.500 Normal 0.0-0.9 [facility] Comment on above: Result Comment: IG% - Immature Granulocytes (promyelocytes, myelocytes andmetamyelocytes) > 1% indicates that a LEFT SHIFT is Present. Performed By: #### L 100.0100 ####[facility] [address] [place], [address] Lymphocytes/100 WBC (Bld) 9.2 % Low 19-41 [facility] Comment on above: Performed By: #### L 100.0100 ####[facility] [address] [place], [address] MCH (RBC) [Entitic mass] 32.4 pg High 27.0-32.0 [facility] Comment on above: Performed By: #### L 100.0100 ####[facility] [address] [place], [address] MCHC (RBC) [Mass/Vol] 33.6 g/dL Normal 32-36 [facility] Comment on above: Performed By: #### L 100.0100 ####[facility] [address] [place], [address] MCV (RBC) [Entitic vol] 96.2 fL High 80-94 [facility] Comment on above: Performed By: #### L 100.0100 ####[facility] [address] [place], [address] Monocytes/100 WBC (Bld) 5.7 % Normal 0-10 [facility] Comment on above: Performed By: #### L 100.0100 ####[facility] [address] [place], [address] Neutrophils/100 WBC (Bld) 83.6 % High 47-70 [facility] Comment on above: Performed By: #### L 100.0100 ####[facility] [address] [place], [address] Nucleated RBC (Bld) [#/Vol] 0 10*3/uL Normal 0-5 [facility] Comment on above: Performed By: #### L 100.0100 ####[facility] [address] [place], [address] Platelet mean volume (Bld) [Entitic vol] 9.9 fL Normal 6.2-12.0 [facility] Comment on above: Performed By: #### L 100.0100 ####[facility] [address] [place], [address] Platelets (Bld) [#/Vol] 175 10*3/uL Normal 150-450 [facility] Comment on above: Performed By: #### L 100.0100 ####[facility] [address] [place], [address] RBC (Bld) [#/Vol] 4.45 10*6/uL Low 4.6-6.2 [facility] Comment on above: Performed By: #### L 100.0100 ####[facility] [address] [place], [address] RDW SD 43.9 fl Normal 35.1-43.9 [facility] Comment on above: Performed By: #### L 100.0100 ####[facility] [address] [place], [address] WBC (Bld) [#/Vol] 8.7 10*3/uL Normal 4.4-11.0 [facility] Comment on above: Performed By: #### L 100.0100 ####[facility] [address] [place], [address] Chest 1 Viewon 09-27-2024 Chest 1 View Normal [facility] Consultation - Intensiviston 09-27-2024 Consultation - Color Consultant Normal [facility] Hip 1 view with Pelvison Hip 1 view with Pelvis Normal [facility] Hip Min 2 Views (Portable)on 09-27-2024 Hip Min 2 Views (Portable) Normal [facility] Operative Reporton 5 Operative Report Normal [facility] Soft Tissue Neck without Con mike 09-27-2024 Soft Tissue Neck without Contr Normal [facility] Type AND Screenon 09-27-2024 Ab SCREEN GEL Negative Normal [facility] Comment on above: Order Comment: S Performed By: #### B TS ####[facility] [address] [place], [address] Venous Blood Gason 5 CO2 [Moles/Vol] 25 mmol/L Normal 23-33 [facility] Comment on above: Order Comment: Arter ial blood gas was entered as a venous blood gas.Results manually entered by ИРИНАARFEMI ECHOCARDIOGRAPHY TECH AND VERIFIED BYANGEL ECHOCARDIOGRAPHY TECH ON 09/28/2024 AT 0645. Result Comment: Pratima rial blood gas was entered as a venous blood gas. Performed By: #### L 9000.0810 ####[facility] [address] [place], [place], [address] FI02 50.0 Normal [facility] Comment on above: Order Comment: Arter ial blood gas was entered as a venous blood gas.Results manually entered by DJOHNSON ECHOCARDIOGRAPHY TECH AND VERIFIED BYWBATRF ECHOCARDIOGRAPHY TECH ON 09/28/2024 AT 0645. Result Comment: Pratima rial blood gas was entered as a venous blood gas. Performed By: #### L 9000.0810 ####[facility] [address] [place], [address] HCO3 (Bld) [Moles/Vol] 24 mmol/L Normal -26 [facility] Comment on above: Order Comment: Arter ial blood gas was entered as a venous blood gas.Results manually entered by DJOHNSON ECHOCARDIOGRAPHY TECH AND VERIFIED BYWBATDO ECHOCARDIOGRAPHY TECH ON 09/28/2024 AT 0645. Result Comment: Pratima rial blood gas was entered as a venous blood gas. Performed By: #### L 9000.0810 ####[facility] [address] [place], [address] O2 Delivery Dev Adult Vent Normal [facility] Comment on above: Order Comment: Arter ial blood gas was entered as a venous blood gas.Results manually entered by DJARNSON ECHOCARDIOGRAPHY TECH AND VERIFIED [facility] ECHOCARDIOGRAPHY TECH ON 09/28/2024 AT 0645. Result Comment: Pratima rial blood gas was entered as a venous blood gas. Performed By: #### L 9000.0810 ####[facility] [address] [place], [place], [address] PEEP 5 [facility] Comment on above: Order Comment: Arter ial blood gas was entered as a venous blood gas.Results manually entered by DJOHNSON ECHOCARDIOGRAPHY TECH AND VERIFIED BYWBATDORF ECHOCARDIOGRAPHY TECH ON 09/28/2024 AT 0645. Result Comment: Pratima rial blood gas was entered as a venous blood gas. Performed By: #### L 9000.0810 ####[facility] [address] [place], [address] RR 12 Normal [facility] Comment on above: Order Comment: Arter ial blood gas was entered as a venous blood gas.Results manually entered by [facility] ECHOCARDIOGRAPHY TECH AND VERIFIED [facility]WBATTUL[facility] ECHOCARDIOGRAPHY TECH ON 09/28/2024 AT 0645. Result Comment: Pratima rial blood gas was entered as a venous blood gas. Performed By: #### L 9000.0810 ####[facility] [address] [place], [place], [address] SITE L Radial Normal [facility] Comment on above: Order Comment: Arter ial blood gas was entered as a venous blood gas.Results manually entered by [facility] ECHOCARDIOGRAPHY TECH AND VERIFIED [facility] ECHOCARDIOGRAPHY TECH ON 09/28/2024 AT 0645. Result Comment: Pratima rial blood gas was entered as a venous blood gas. Performed By: #### L 9000.0810 ####[facility] [address] [place], [place], [address] VBG BE -3 mmol/L Low -1.0-3.5 [facility] Comment on above: Order Comment: Arter ial blood gas was entered as a venous blood gas.Results manually entered by [facility] ECHOCARDIOGRAPHY TECH AND VERIFIED [facility]WBA[facility] ECHOCARDIOGRAPHY TECH ON 09/28/2024 AT 0645. Result Comment: Pratima rial blood gas was entered as a venous blood gas. Performed By: #### L 9000.0810 ####[facility] [address] [place], [place], [address] VBG pCO2 48.7 mmHg Normal 41-51 [facility] Comment on above: Order Comment: Arter ial blood gas was entered as a venous blood gas.Results manually entered by [facility] ECHOCARDIOGRAPHY TECH AND VERIFIED [facility] ECHOCARDIOGRAPHY TECH ON 09/28/2024 AT 0645. Result Comment: Pratima rial blood gas was entered as a venous blood gas. Performed By: #### L 9000.0810 ####[facility] [address] [place], [place], [address] VBG pH 7.29 Low 7.32-7.42 [facility] Comment on above: Order Comment: Arter ial blood gas was entered as a venous blood gas.Results manually entered by [facility] ECHOCARDIOGRAPHY TECH AND VERIFIED [facility]WBATT[facility] ECHOCARDIOGRAPHY TECH ON 09/28/2024 AT 0645. Result Comment: Pratima rial blood gas was entered as a venous blood gas. Performed By: #### L 9000.0810 ####[facility] [address] [place], [place], [address] VBG PO2 67 mmHg High 25-40 [facility] Comment on above: Order Comment: Arter ial blood gas was entered as a venous blood gas.Results manually entered by [facility] ECHOCARDIOGRAPHY TECH AND VERIFIED [facility] ECHOCARDIOGRAPHY TECH ON 09/28/2024 AT 0645. Result Comment: Pratima rial blood gas was entered as a venous blood gas. Performed By: #### L 9000.0810 ####[facility] [address] [place], [address] VBG SO2 91 High 50-70 [facility] Comment on above: Order Comment: Arter ial blood gas was entered as a venous blood gas.Results manually entered by [facility] ECHOCARDIOGRAPHY TECH AND VERIFIED [facility]WBAWINN [facility] ECHOCARDIOGRAPHY TECH ON 09/28/2024 AT 0645. Result Comment: Pratima rial blood gas was entered as a venous blood gas. Performed By: #### L 9000.0810 ####[facility] [address] [place], [place], [address] Vt 500.0 mL Normal [facility] Comment on above: Order Comment: Arter ial blood gas was entered as a venous blood gas.Results manually entered by [facility] ECHOCARDIOGRAPHY TECH AND VERIFIED [facility] ECHOCARDIOGRAPHY TECH ON 09/28/2024 AT 0645. Result Comment: Pratima rial blood gas was entered as a venous blood gas. Performed By: #### L 9000.0810 ####[facility] [address] [place], [address] 12 Lead EKGon 09-26-2024 12 Lead EKG Normal [facility] 32-JR-Rlaorto DOrdered By: Natalie Luther on 09-26-2024 Vitamin D 25-Hydroxy 25.4 ng/mL [facility] Comment on above: Vitamin D 25(OH) Sta tus Range Deficiency <20 ng/mL (50nmol/L) Insufficiency 20 - 30 ng/mL (50 - 75 nmol/L) Sufficiency 30 - 100 ng/mL (75 - 250 nmol/L) Toxicity >100 ng/mL (>250 nmol/L) Albumin to globulin ratioOrd ered By: Jean Claude Luther on 09-26-2024 Albumin/Globulin [Mass ratio] 1.1 {ratio} 0.9-2.4 [facility] Basic Metabolic Profile (BMP )on 09-26-2024 BUN/CRE 17.2 RATIO Normal 10-20 [facility] Comment on above: Performed By: #### L 100.0100, L500.2500 ####[facility] [address] [place], [address] CA,Total 8.9 mg/dL Normal 8.5-10.1 [facility] Comment on above: Performed By: #### L 100.0100, L500.2500 ####[facility] [address] [place], [address] Chloride [Moles/Vol] 107 mmol/L Normal 98-107 [facility] Comment on above: Performed By: #### L 100.0100, L500.2500 ####[facility] [address] [place], [address] CO2 [Moles/Vol] 27.0 mmol/L Normal 21.0-32.0 [facility] Comment on above: Performed By: #### L 100.0100, L500.2500 ####[facility] [address] [place], [address] Creatinine [Mass/Vol] 0.76 mg/dL Normal 0.70-1.30 [facility] Comment on above: Result Comment: The validity of the calculated GFR GFRAA in patients over70 years has not been determined. Clinical correlation isessential. Performed By: #### L 100.0100, L500.2500 ####[facility] [address] [place], [address] ECRCL 125.10 ml/min Normal [facility] Comment on above: Performed By: #### L 100.0100, L500.2500 ####[facility] [address] [place], [address] EST GFR - AA 133 mL/min Normal >60 [facility] Comment on above: Result Comment: Afri can Belgian GFR Calc Performed By: #### L 100.0100, L500.2500 ####[facility] [address] [place], [address] GAP 5 Normal 5-15 [facility] Comment on above: Performed By: #### L 100.0100, L500.2500 ####[facility] [address] [place], [address] GFR/1.73 sq M.predicted among non-blacks MDRD (S/P/Bld) [Vol rate/Area] 110 mL/min/{1.73_m2} Normal >60 [facility] Comment on above: Result Comment: Non- GFR Calc Performed By: #### L 100.0100, L500.2500 ####[facility] [address] [place], [address] Glucose [Mass/Vol] 111 mg/dL High 74-106 [facility] Comment on above: Result Comment: Fast ing Glucose result from 100 to 125 mg/dLsuggests IMPAIRED HOMEOSTASIS per A.D.A. criteria. Performed By: #### L 100.0100, L500.2500 ####[facility] [address] [place], [address] Potassium [Moles/Vol] 4.2 mmol/L Normal 3.5-5.1 [facility] Comment on above: Performed By: #### L 100.0100, L500.2500 ####[facility] [address] [place], [address] Sodium [Moles/Vol] 139 mmol/L Normal 136-145 [facility] Comment on above: Performed By: #### L 100.0100, L500.2500 ####[facility] [address] [place], [address] Urea nitrogen [Mass/Vol] 13 mg/dL Normal 7-18 [facility] Comment on above: Performed By: #### L 100.0100, L500.2500 ####[facility] [address] [place], [address] Bilirubin, totalOrdered By: Jean Claude Luther on 09-26-2024 Bilirubin [Mass/Vol] 0.50 mg/dL 0.20-1.00 [facility] Comment on above: For patients on eltr ombopag therapy, use of Dimension [place] TBIL is not recommended. CBC W/Diff, Automatedon 09-04 Absolute Lymph 2.67 X10 3/uL Normal 0.83-4.51 [facility] Comment on above: Performed By: #### L 100.0100, L500.2500 ####[facility] [address] [place], [address] Absolute Neut 3.3 X10 3/uL Normal 2.0-7.7 [facility] Comment on above: Performed By: #### L 100.0100, L500.2500 ####[facility] [address] [place], [address] Basophils/100 WBC (Bld) 1.3 % High 0-1 [facility] Comment on above: Performed By: #### L 100.0100, L500.2500 ####[facility] [address] [place], [address] Eosinophils/100 WBC (Bld) 1.9 % Normal 0-5 [facility] Comment on above: Performed By: #### L 100.0100, L500.2500 ####[facility] [address] [place], [address] Erythrocyte distribution width (RBC) [Ratio] 12.1 % Normal 11.6-14.6 [facility] Comment on above: Performed By: #### L 100.0100, L500.2500 ####[facility] [address] [place], [address] Hematocrit (Bld) [Volume fraction] 43.3 % Normal 40-54 [facility] Comment on above: Performed By: #### L 100.0100, L500.2500 ####[facility] [address] [place], [address] Hemoglobin (Bld) [Mass/Vol] 14.9 g/dL Normal 13.0-16.5 [facility] Comment on above: Performed By: #### L 100.0100, L500.2500 ####[facility] [address] [place], [address] IG% 0.300 Normal 0.0-0.9 [facility] Comment on above: Result Comment: IG% - Immature Granulocytes (promyelocytes, myelocytes andmetamyelocytes) > 1% indicates that a LEFT SHIFT is Present. Performed By: #### L 100.0100, L500.2500 ####[facility] [address] [place], [address] Lymphocytes/100 WBC (Bld) 39.1 % Normal 19-41 [facility] Comment on above: Performed By: #### L 100.0100, L500.2500 ####[facility] [address] [place], [address] MCH (RBC) [Entitic mass] 32.7 pg High 27.0-32.0 [facility] Comment on above: Performed By: #### L 100.0100, L500.2500 ####[facility] [address] [place], [address] MCHC (RBC) [Mass/Vol] 34.4 g/dL Normal 32-36 [facility] Comment on above: Performed By: #### L 100.0100, L500.2500 ####[facility] [address] [place], [address] MCV (RBC) [Entitic vol] 95.0 fL High 80-94 [facility] Comment on above: Performed By: #### L 100.0100, L500.2500 ####[facility] [address] [place], [address] Monocytes/100 WBC (Bld) 8.9 % Normal 0-10 [facility] Comment on above: Performed By: #### L 100.0100, L500.2500 ####[facility] [address] [place], [address] Neutrophils/100 WBC (Bld) 48.5 % Normal 47-70 [facility] Comment on above: Performed By: #### L 100.0100, L500.2500 ####[facility] [address] [place], [address] Nucleated RBC (Bld) [#/Vol] 0 10*3/uL Normal 0-5 [facility] Comment on above: Performed By: #### L 100.0100, L500.2500 ####[facility] [address] [place], [address] Platelet mean volume (Bld) [Entitic vol] 9.6 fL Normal 6.2-12.0 [facility] Comment on above: Performed By: #### L 100.0100, L500.2500 ####[facility] [address] [place], [address] Platelets (Bld) [#/Vol] 223 10*3/uL Normal 150-450 [facility] Comment on above: Performed By: #### L 100.0100, L500.2500 ####[facility] [address] [place], [address] RBC (Bld) [#/Vol] 4.56 10*6/uL Low 4.6-6.2 [facility] Comment on above: Performed By: #### L 100.0100, L500.2500 ####[facility] [address] [place], [address] RDW SD 42.5 fl Normal 35.1-43.9 [facility] Comment on above: Performed By: #### L 100.0100, L500.2500 ####[facility] [address] [place], [address] WBC (Bld) [#/Vol] 6.8 10*3/uL Normal 4.4-11.0 [facility] Comment on above: Performed By: #### L 100.0100, L500.2500 ####[facility] [address] [place], [address] Chest 1 Viewon 09-26-2024 Chest 1 View Normal [facility] Comprehensive Metabolic Prof ilon 09-26-2024 Albumin [Mass/Vol] 3.6 g/dL Normal 3.2-5.0 [facility] Comment on above: Performed By: #### L 500.4050, L506.1000 ####[facility] [address] [place], [address] Albumin/Globulin [Mass ratio] 1.1 {ratio} Normal 0.9-2.4 [facility] Comment on above: Performed By: #### L 500.4050, L506.1000 ####[facility] [address] [place], [address] ALK P 67 U/L Normal 45-117 [facility] Comment on above: Performed By: #### L 500.4050, L506.1000 ####[facility] [address] [place], [address] ALT [Catalytic activity/Vol] 20 U/L Normal 16-61 [facility] Comment on above: Performed By: #### L 500.4050, L506.1000 ####[facility] [address] [place], [address] AST [Catalytic activity/Vol] 17 U/L Normal 15-37 [facility] Comment on above: Performed By: #### L 500.4050, L506.1000 ####[facility] [address] [place], [address] Bilirubin [Mass/Vol] 0.50 mg/dL Normal 0.20-1.00 [facility] Comment on above: Result Comment: For patients on eltrombopag therapy, use of Dimension [place] TBIL is not recommended. Performed By: #### L 500.4050, L506.1000 ####[facility] [address] [place], [address] BUN/CRE 17.1 RATIO Normal 10-20 [facility] Comment on above: Performed By: #### L 500.4050, L506.1000 ####[facility] [address] [place], [address] CA,Total 8.8 mg/dL Normal 8.5-10.1 [facility] Comment on above: Performed By: #### L 500.4050, L506.1000 ####[facility] [address] [place], [address] Chloride [Moles/Vol] 108 mmol/L High 98-107 [facility] Comment on above: Performed By: #### L 500.4050, L506.1000 ####[facility] [address] [place], [address] CO2 [Moles/Vol] 25.0 mmol/L Normal 21.0-32.0 [facility] Comment on above: Performed By: #### L 500.4050, L506.1000 ####[facility] [address] [place], [address] Creatinine [Mass/Vol] 0.82 mg/dL Normal 0.70-1.30 [facility] Comment on above: Result Comment: The validity of the calculated GFR GFRAA in patients over70 years has not been determined. Clinical correlation isessential. Performed By: #### L 500.4050, L506.1000 ####[facility] [address] [place], [address] ECRCL 110.26 ml/min Normal [facility] Comment on above: Performed By: #### L 500.4050, L506.1000 ####[facility] [address] [place], [address] EST GFR - AA 121 mL/min Normal >60 [facility] Comment on above: Result Comment: Afri can Belgian GFR Calc Performed By: #### L 500.4050, L506.1000 ####[facility] [address] [place], [address] GAP 7 Normal 5-15 [facility] Comment on above: Performed By: #### L 500.4050, L506.1000 ####[facility] [address] [place], [address] GFR/1.73 sq M.predicted among non-blacks MDRD (S/P/Bld) [Vol rate/Area] 100 mL/min/{1.73_m2} Normal >60 [facility] Comment on above: Result Comment: Non- GFR Calc Performed By: #### L 500.4050, L506.1000 ####[facility] [address] [place], [address] Globulin (S) [Mass/Vol] 3.3 g/dL Normal 2.2-4.2 [facility] Comment on above: Performed By: #### L 500.4050, L506.1000 ####[facility] [address] [place], [address] Glucose [Mass/Vol] 117 mg/dL High 74-106 [facility] Comment on above: Result Comment: Fast ing Glucose result from 100 to 125 mg/dLsuggests IMPAIRED HOMEOSTASIS per A.D.A. criteria. Performed By: #### L 500.4050, L506.1000 ####[facility] [address] [place], [address] Potassium [Moles/Vol] 4.4 mmol/L Normal 3.5-5.1 [facility] Comment on above: Performed By: #### L 500.4050, L506.1000 ####[facility] [address] [place], [address] Sodium [Moles/Vol] 140 mmol/L Normal 136-145 [facility] Comment on above: Performed By: #### L 500.4050, L506.1000 ####[facility] [address] [place], [address] T PROT 6.9 g/dL Normal 6.4-8.2 [facility] Comment on above: Performed By: #### L 500.4050, L506.1000 ####[facility] [address] [place], [address] Urea nitrogen [Mass/Vol] 14 mg/dL Normal 7-18 [facility] Comment on above: Performed By: #### L 500.4050, L506.1000 ####[facility] [address] [place], [address] Emergency Department Summary on 09-26-2024 Emergency Department Summary Normal [facility] Estimated glomerular filtrat ion rate (GFR) AmericanOrdered By: Jean Claude Luther on 09-26-2024 Estimated GFR (MDRD) Amer 121 mL/min >60 [facility] Comment on above: GFR Calc Femur Min 2 Viewson 09-26-19 25 Femur Min 2 Views Normal [facility] H AND P Exam - Hospitaliston 09-26-2024 H&P Exam - Hospitalist Normal [facility] - Chemistry and C hemistry - challengeOrdered By: Jean Claude Luther on 09-26-2024 AST [Catalytic activity/Vol] 17 U/L 15-37 [facility] Pelvis 1 or 2 Viewson 2024 Pelvis 1 or 2 Views Normal [facility] Serum globulin measurementOr dered By: Jean Claude Luther on 09-26-2024 Globulin (S) [Mass/Vol] 3.3 g/dL 2.2-4.2 [facility] Serum or plasma alanine valentin otransferase (ALT) measurementOrdered By: Jean Claude Luther on 09-26-2024 ALT [Catalytic activity/Vol] 20 U/L 16-61 [facility] Serum or plasma albumin jody urement (mass/volume)Ordered By: Jean Claude Luther on 09-26-2024 Albumin [Mass/Vol] 3.6 g/dL 3.2-5.0 [facility] Serum or plasma alkaline skip sphatase measurementOrdered By: Jean Claude Luther on 09-26-2024 ALP [Catalytic activity/Vol] 67 U/L 45-117 [facility] Total proteinOrdered By: Airam Luther on 09-26-2024 Protein [Mass/Vol] 6.9 g/dL 6.4-8.2 [facility] Vitamin D,25 Hydroxyon 09-26 Vitamin D 25-OH 25.4 ng/mL Normal [facility] Comment on above: Result Comment: Cecy min D 25(OH) Status Range Deficiency <20 ng/mL (50nmol/L) Insufficiency 20 - 30 ng/mL (50 - 75 nmol/L) Sufficiency 30 - 100 ng/mL (75 - 250 nmol/L) Toxicity >100 ng/mL (>250 nmol/L) Performed By: #### L 500.4050, L506.1000 ####[facility] [address] [place], [address] Internal Medicine Office Vis iton 08-15-2024 Internal Medicine Office Visit Normal [facility] 12 Lead EKGon 07-31-2024 12 Lead EKG Normal [facility] Basic Metabolic Profile (BMP )on 07-31-2024 BUN/CRE 12.3 RATIO Normal 10-20 [facility] Comment on above: Order Comment: 'TROP ' Serial specimen #1, #2 or #3: 1 Performed By: #### L 100.0500, L500.2500, L501.4020 ####[facility] [address] [place], [address] CA,Total 9.3 mg/dL Normal 8.5-10.1 [facility] Comment on above: Order Comment: 'TROP ' Serial specimen #1, #2 or #3: 1 Performed By: #### L 100.0500, L500.2500, L501.4020 ####[facility] [address] [place], [address] Chloride [Moles/Vol] 105 mmol/L Normal 98-107 [facility] Comment on above: Order Comment: 'TROP ' Serial specimen #1, #2 or #3: 1 Performed By: #### L 100.0500, L500.2500, L501.4020 ####[facility] [address] [place], [address] CO2 [Moles/Vol] 29.0 mmol/L Normal 21.0-32.0 [facility] Comment on above: Order Comment: 'TROP ' Serial specimen #1, #2 or #3: 1 Performed By: #### L 100.0500, L500.2500, L501.4020 ####[facility] [address] [place], [address] Creatinine [Mass/Vol] 0.73 mg/dL Normal 0.70-1.30 [facility] Comment on above: Order Comment: 'TROP ' Serial specimen #1, #2 or #3: 1 Result Comment: The validity of the calculated GFR GFRAA in patients over70 years has not been determined. Clinical correlation isessential. Performed By: #### L 100.0500, L500.2500, L501.4020 ####[facility] [address] [place], [address] ECRCL 125.51 ml/min Normal [facility] Comment on above: Order Comment: 'TROP ' Serial specimen #1, #2 or #3: 1 Performed By: #### L 100.0500, L500.2500, L501.4020 ####[facility] [address] [place], [address] EST GFR - AA 138 mL/min Normal >60 [facility] Comment on above: Order Comment: 'TROP ' Serial specimen #1, #2 or #3: 1 Result Comment: Afri can Belgian GFR Calc Performed By: #### L 100.0500, L500.2500, L501.4020 ####[facility] [address] [place], [address] GAP 5 Normal 5-15 [facility] Comment on above: Order Comment: 'TROP ' Serial specimen #1, #2 or #3: 1 Performed By: #### L 100.0500, L500.2500, L501.4020 ####[facility] [address] [place], [address] GFR/1.73 sq M.predicted among non-blacks MDRD (S/P/Bld) [Vol rate/Area] 114 mL/min/{1.73_m2} Normal >60 [facility] Comment on above: Order Comment: 'TROP ' Serial specimen #1, #2 or #3: 1 Result Comment: Non- GFR Calc Performed By: #### L 100.0500, L500.2500, L501.4020 ####[facility] [address] [place], [address] Glucose [Mass/Vol] 88 mg/dL Normal 74-106 [facility] Comment on above: Order Comment: 'TROP ' Serial specimen #1, #2 or #3: 1 Performed By: #### L 100.0500, L500.2500, L501.4020 ####[facility] [address] [place], [address] Potassium [Moles/Vol] 4.5 mmol/L Normal 3.5-5.1 [facility] Comment on above: Order Comment: 'TROP ' Serial specimen #1, #2 or #3: 1 Result Comment: Mode rate Hemolysis, Result may be falsely increased. Performed By: #### L 100.0500, L500.2500, L501.4020 ####[facility] [address] [place], [address] Sodium [Moles/Vol] 139 mmol/L Normal 136-145 [facility] Comment on above: Order Comment: 'TROP ' Serial specimen #1, #2 or #3: 1 Performed By: #### L 100.0500, L500.2500, L501.4020 ####[facility] [address] [place], [address] Urea nitrogen [Mass/Vol] 9 mg/dL Normal 7-18 [facility] Comment on above: Order Comment: 'TROP ' Serial specimen #1, #2 or #3: 1 Performed By: #### L 100.0500, L500.2500, L501.4020 ####[facility] [address] [place], [address] Blood urea nitrogen (BUN)/cr eatinine ratioOrdered By: Baljit Fleming on 07-31-2024 Urea nitrogen/Creatinine [Mass ratio] 12.3 mg/mg 10- [facility] Brain/Head without Contrasto n 07-31-2024 Brain/Head without Contrast Normal [facility] CBC-Complete Blood Cnt No Di ffon 07-31-2024 Erythrocyte distribution width (RBC) [Ratio] 12.4 % Normal 11.6-14.6 [facility] Comment on above: Performed By: #### L 100.0500, L500.2500, L501.4020 ####[facility] [address] [place], [address] Hematocrit (Bld) [Volume fraction] 43.3 % Normal 40-54 [facility] Comment on above: Performed By: #### L 100.0500, L500.2500, L501.4020 ####[facility] [address] [place], [address] Hemoglobin (Bld) [Mass/Vol] 14.9 g/dL Normal 13.0-16.5 [facility] Comment on above: Performed By: #### L 100.0500, L500.2500, L501.4020 ####[facility] [address] [place], [address] MCH (RBC) [Entitic mass] 33.2 pg High 27.0-32.0 [facility] Comment on above: Performed By: #### L 100.0500, L500.2500, L501.4020 ####[facility] [address] [place], [address] MCHC (RBC) [Mass/Vol] 34.4 g/dL Normal 32-36 [facility] Comment on above: Performed By: #### L 100.0500, L500.2500, L501.4020 ####[facility] [address] [place], [address] MCV (RBC) [Entitic vol] 96.4 fL High 80-94 [facility] Comment on above: Performed By: #### L 100.0500, L500.2500, L501.4020 ####[facility] [address] [place], [address] Platelet mean volume (Bld) [Entitic vol] 11.0 fL Normal 6.2-12.0 [facility] Comment on above: Performed By: #### L 100.0500, L500.2500, L501.4020 ####[facility] [address] [place], [address] Platelets (Bld) [#/Vol] 233 10*3/uL Normal 150-450 [facility] Comment on above: Performed By: #### L 100.0500, L500.2500, L501.4020 ####[facility] [address] [place], [address] RBC (Bld) [#/Vol] 4.49 10*6/uL Low 4.6-6.2 [facility] Comment on above: Performed By: #### L 100.0500, L500.2500, L501.4020 ####[facility] [address] [place], [address] RDW SD 44.2 fl High 35.1-43.9 [facility] Comment on above: Performed By: #### L 100.0500, L500.2500, L501.4020 ####[facility] [address] [place], [address] WBC (Bld) [#/Vol] 5.9 10*3/uL Normal 4.4-11.0 [facility] Comment on above: Performed By: #### L 100.0500, L500.2500, L501.4020 ####[facility] [address] [place], [address] Carbon dioxide measurementOr dered By: Baljit Fleming on 07-31-2024 CO2 [Moles/Vol] 29.0 mmol/L 21.0-32.0 [facility] Chest 1 View (Portable)on Chest 1 View (Portable) Normal [facility] Chloride measurementOrdered By: Baljit Fleming on 07-31-2024 Chloride [Moles/Vol] 105 mmol/L 98-107 [facility] Emergency Department Summary on 07-31-2024 Emergency Department Summary Normal [facility] Erythrocyte distribution wid th (RBC) [Ratio]Ordered By: Baljit Fleming on 07-31-2024 Erythrocyte distribution width (RBC) [Entitic vol] 44.2 fL High 35.1-43.9 [facility] Erythrocyte distribution wid th ratioOrdered By: Baljit Fleming on 07-31-2024 Erythrocyte distribution width (RBC) [Ratio] 12.4 % 11.6-14.6 [facility] Estimated glomerular filtrat ion rate (GFR) AmericanOrdered By: Baljit Fleming on 07-31-2024 Estimated GFR (MDRD) Amer 138 mL/min >60 [facility] Comment on above: GFR Calc Estimation of creatinine brandon aranceOrdered By: Baljit Fleming on 07-31-2024 Estimated Creatinine Clearance Calc 125.51 ml/min [facility] Glomerular filtration rate ( GFR) estimationOrdered By: Baljit Fleming on 07-31-2024 Estimated GFR (MDRD) Non-Af Amer 114 mL/min >60 [facility] Comment on above: Non- GFR Calc Glucose measurementOrdered B y: Baljit Fleming on 07-31-2024 Glucose [Mass/Vol] 88 mg/dL 74-106 [facility] Hematocrit Auto (Bld) [Volum e fraction]Ordered By: Baljit Fleming on 07-31-2024 Hematocrit (Bld) [Volume fraction] 43.3 % 40-54 [facility] Hemoglobin measurementOrdere d By: Baljit Fleming on 07-31-2024 Hemoglobin (Bld) [Mass/Vol] 14.9 g/dL 13.0-16.5 [facility] Influenza virus A and B and SARS-CoV-2 (COVID-19) and Respiratory syncytial virus RNAOrdered By: Baljit Fleming on 07-31-2024 SARS-CoV-2 (COVID-19) RNA VALENTINA+probe Ql (Unsp spec) [facility] L501.4020on 07-31-2024 TROPONIN-I HS 10 pg/mL Normal 3.0-78.0 [facility] Comment on above: Order Comment: 'TROP ' Serial specimen #1, #2 or #3: 1 Result Comment: Sacha aguirre Note: New Test Units and Gender Specific Reference Ranges. For more information see Policy Stat Procedure [place] High Sensitivity Troponin (TNIH) and attachments. Performed By: #### L 100.0500, L500.2500, L501.4020 ####[facility] [address] [place], [address] M100.678on 07-31-2024 M100.678 Pending SARS-CoV-2 (COVID 19) Negative INFLUENZA A Negative INFLUENZA B Negative RSV PCR Negative Normal [facility] Comment on above: Performed By: #### M 100.678 ####[facility] [address] [place], [address] MCV (mean corpuscular volume ) determinationOrdered By: Baljit Fleming on 07-31-2024 MCV (RBC) [Entitic vol] 96.4 fL High 80-94 [facility] Mean corpuscular hemoglobin (MCH) determinationOrdered By: Baljit Fleming on 07-31-2024 MCH (RBC) [Entitic mass] 33.2 pg High 27.0-32.0 [facility] Mean corpuscular hemoglobin concentration (MCHC) determinationOrdered By: Baljit Fleming on 07-31-2024 MCHC (RBC) [Mass/Vol] 34.4 g/dL 32-36 [facility] Mean platelet volume determi nationOrdered By: Baljit Fleming on 07-31-2024 Platelet mean volume (Bld) [Entitic vol] 11.0 fL 6.2-12.0 [facility] Platelet countOrdered By: jaja Fleming on 07-31-2024 Platelets (Bld) [#/Vol] 233 10*3/uL 150-450 [facility] Potassium measurementOrdered By: Baljit Fleming on 07-31-2024 Potassium [Moles/Vol] 4.5 mmol/L 3.5-5.1 [facility] Comment on above: Moderate Hemolysis, Result may be falsely increased. RBC Auto (Bld) [#/Vol]Ordere d By: Baljit Fleming on 07-31-2024 RBC (Bld) [#/Vol] 4.49 10*6/uL Low 4.6-6.2 [facility] Serum anion gap measurementO rdered By: Baljit Fleming on 07-31-2024 Anion gap [Moles/Vol] 5 mmol/L 5-15 [facility] Serum or plasma calcium jody urement (mass/volume)Ordered By: Baljit Fleming on 07-31-2024 Calcium [Mass/Vol] 9.3 mg/dL 8.5-10.1 [facility] Serum or plasma creatinine m easurement (mass/volume)Ordered By: Baljit Fleming on 07-31-2024 Creatinine [Mass/Vol] 0.73 mg/dL 0.70-1.30 [facility] Comment on above: The validity of the calculated GFR & GFRAA in patients over 70 years has not been determined. Clinical correlation is essential. Serum or plasma urea nitroge n measurement (mass/volume)Ordered By: Baljit Fleming on 07-31-2024 Urea nitrogen [Mass/Vol] 9 mg/dL 7-18 [facility] Sodium levelOrdered By: Kelby Fleming on 07-31-2024 Sodium [Moles/Vol] 139 mmol/L 136-145 [facility] Troponin IOrdered By: Baljit Fleming on 07-31-2024 Troponin I High Sensitivity 10 pg/mL 3.0-78.0 [facility] Comment on above: Please Note: New Susy t Units and Gender Specific Reference Ranges. For more information see Policy Stat Procedure [place] High Sensitivity Troponin (TNIH) and attachments. White blood cell (WBC) count Ordered By: Baljit Fleming on 07-31-2024 WBC (Bld) [#/Vol] 5.9 10*3/uL 4.4-11.0 [facility] CNOVon 06-01-2024 CNOV Office Visit ([facility]) OLGA MARTIN ([id number]) 1960 M Date Time Provider Department 06/01/24 3:00 PM [facility] During your visit today, we recorded the [...] mildly james (more content not included)... Normal [facility] Abdomen W/WO IV Contraston 1 Abdomen W/WO IV Contrast Normal [facility] Adrenocorticotropic Hormoneo n 04-30-2024 ACTH 6.6 pg/mL Low 7.2-63.3 [facility] Comment on above: Order Comment: N Result Comment: ACTH reference interval for samples collected between 7 and10 AM.Performed at: [facility] [id number] Director: Calderon Shane PhD, Phone: [phone] Performed By: #### L 3300.1000 ####[facility] [address] [place], [address] Basophil percentageOrdered B y: Zoraida Marino on 07-22-2023 Cholesterol [Mass/Vol] 189 mg/dL <200 [facility] Comment on above: <200 mg/dL Desirable 200-240 mg/dL Borderline >240 mg/dL High Risk Triglyceride [Mass/Vol] 86 mg/dL <199 [facility] Comment on above: The drugs N-Acetylcy steine and Metamizole may falsely depress this assay.Serum Triglycerides Reference Interval Normal <150 mg/dL Borderline high 150 - 199 mg/dL High 200 - 499 mg/dL Very High > or = 500 mg/dL Serum or plasma cholesterol in HDL measurement (mass/volume)Ordered By: Zoraida Marino on 07-22-2023 Cholesterol in HDL [Mass/Vol] 55 mg/dL >40 [facility] Comment on above: The drugs N-Acetylcy steine and Metamizole may falsely depress this assay. Reference Range HDL <40 mg/dL Low HDL Cholesterol HDL >or= 60 mg/dL High HDL Cholesterol Serum or plasma cholesterol in VLDL measurement (mass/volume)Ordered By: Zoraida Marino on 07-22-2023 Cholesterol in VLDL [Mass/Vol] 17 mg/dL 5-40 [facility] Serum or plasma low density lipoprotein (LDL) cholesterol measurement (mass/volume)Ordered By: Zoraida Marino on 07-22-2023 Cholesterol in LDL [Mass/Vol] 117 mg/dL 0-130 [facility] Basophil percentageOrdered B y: Dr. Vieira on 10-13-2022 Basophil percentage < 10.0 umol/L 11-32 [facility] Bilirubin [Mass/Vol] 0.70 mg/dL 0.20-1.00 [facility] Comment on above: For patients on eltr ombopag therapy, use of Dimension [place] TBIL is not recommended. Chloride [Moles/Vol] 107 mmol/L 98-107 [facility] Glucose [Mass/Vol] 96 mg/dL 74-106 [facility] Potassium [Moles/Vol] 3.9 mmol/L 3.5-5.1 [facility] Protein [Mass/Vol] 7.3 g/dL 6.4-8.2 [facility] Sodium [Moles/Vol] 141 mmol/L 136-145 [facility] WBC (Bld) [#/Vol] 8.8 10*3/uL 4.4-11.0 [facility] Blood erythrocytes count (nu mber/volume)Ordered By: Dr. Vieira on 10-13-2022 RBC (Bld) [#/Vol] 4.85 10*6/uL 4.6-6.2 [facility] Blood hemoglobin measurement (mass/volume)Ordered By: Dr. Vieira on 10-13-2022 Hemoglobin (Bld) [Mass/Vol] 15.9 g/dL 13.0-16.5 [facility] Blood platelet mean volumeOr dered By: Dr. Vieira on 10-13-2022 Platelet mean volume (Bld) [Entitic vol] 10.2 fL 6.2-12.0 [facility] Determination of erythrocyte mean corpuscular volume (MCV)Ordered By: Dr. Vieira on 10-13-2022 MCV (RBC) [Entitic vol] 96.1 fL 80-94 [facility] Hematocrit Auto (Bld) [Volum e fraction]Ordered By: Dr. Vieira on 10-13-2022 Hematocrit (Bld) [Volume fraction] 46.6 % 40-54 [facility] - Chemistry and C hemistry - challengeOrdered By: Dr. Vieira on 10-13-2022 ALP [Catalytic activity/Vol] 69 U/L 45-117 [facility] ALT [Catalytic activity/Vol] 19 U/L 16-61 [facility] CO2 [Moles/Vol] 27.0 mmol/L 21.0-32.0 [facility] Globulin (S) [Mass/Vol] 3.5 g/dL 2.2-4.2 [facility] Magnesium [Mass/Vol] 2.1 mg/dL 1.6-2.6 [facility] Urea nitrogen/Creatinine [Mass ratio] 11.9 mg/mg 10-20 [facility] - Hematology and Cell countsOrdered By: Dr. Vieira on 10-13-2022 Erythrocyte distribution width (RBC) [Entitic vol] 44.0 fL 35.1-43.9 [facility] Erythrocyte distribution width (RBC) [Ratio] 12.3 % 11.6-14.6 [facility] MCH (RBC) [Entitic mass] 32.8 pg 27.0-32.0 [facility] MCHC Auto (RBC) [Mass/Vol]Or dered By: Dr. Vieira on 10-13-2022 MCHC (RBC) [Mass/Vol] 34.1 g/dL 32-36 [facility] No Panel InformationOrdered By: Dr. Vieira on 10-13-2022 Estimated GFR (MDRD) Amer 134 mL/min >60 [facility] Comment on above: GFR Calc Estimated GFR (MDRD) Non-Af Amer 111 mL/min >60 [facility] Comment on above: Non- GFR Calc Thyroid Stimulating Hormone (TSH) 1.56 uIU/mL 0.358-3.74 [facility] Platelets bldOrdered By: Dr. Vieira on 10-13-2022 Platelets (Bld) [#/Vol] 249 10*3/uL 150-450 [facility] Serum or plasma albumin jody urement (mass/volume)Ordered By: Dr. Vieira on 10-13-2022 Albumin [Mass/Vol] 3.8 g/dL 3.2-5.0 [facility] Serum or plasma albumin/glob ulin mass ratioOrdered By: Dr. Vieira on 10-13-2022 Albumin/Globulin [Mass ratio] 1.1 {ratio} 0.9-2.4 [facility] Serum or plasma calcium jody urement (mass/volume)Ordered By: Dr. Vieira on 10-13-2022 Calcium [Mass/Vol] 8.9 mg/dL 8.5-10.1 [facility] Serum or plasma creatinine m easurement (mass/volume)Ordered By: Dr. Vieira on 10-13-2022 Creatinine [Mass/Vol] 0.75 mg/dL 0.70-1.30 [facility] Comment on above: The validity of the calculated GFR & GFRAA in patients over 70 years has not been determined. Clinical correlation is essential. Serum or plasma urea nitroge n measurement (mass/volume)Ordered By: Dr. Vieira on 10-13-2022 Urea nitrogen [Mass/Vol] 9 mg/dL 7-18 [facility] Thin prep Papanicolaou smear with manual screeningOrdered By: Dr. Vieira on 10-13-2022 Thin prep Papanicolaou smear with manual screening 15 U/L 15-37 [facility] Thin prep Papanicolaou smear with manual screening 7 5-15 [facility] MRI CERVICAL SPINE WO IVCONo n [...] vertebrae with counting from the craniocervical junction. [employer] Driver: FAM Transcribe Date/Time: Jan 02 2022 1:32P Dictated by : CARLINE NG MD This examination was interpreted and the report reviewed and electronically signed by: CARLINE NG MD on Jan 02 2022 1:43PM EST [id number] Normal [facility] NURSING PROGon 01-02-2022 NURSING PROG HNO ID: [id number] Author: Josiane Goff RN Service: Radiology Author [...] January 02, 2022 TIME: 12:26 PM Normal [facility] No Panel Informationon 01-02 [facility] Absolute lymphocyte counton 11-07-2021 Lymphocytes Auto (Unsp spec) [#/Vol] 1.40 10*3/uL 0.83-4.51 [facility] Work Phone: Basophil percentageon 2021 Basophils/100 WBC (Bld) 0.9 % 0-1 [facility] Work Phone: [phone] Eosinophils/100 WBC (Bld) 1.3 % 0-5 [facility] Work Phone: [phone] Neutrophils (Bld) [#/Vol] 6.9 10*3/uL 2.0-7.7 [facility] Work Phone: [phone] Neutrophils/100 WBC (Bld) 73.6 % 47-70 [facility] Work Phone: WBC (Bld) [#/Vol] 9.4 10*3/uL 4.4-11.0 [facility] Work Phone: Blood erythrocytes count (nu mber/volume)on 11-07-2021 RBC (Bld) [#/Vol] 3.49 10*6/uL 4.6-6.2 [facility] Work Phone: Blood hemoglobin measurement (mass/volume)on 11-07-2021 Hemoglobin (Bld) [Mass/Vol] 10.2 g/dL 13.0-16.5 [facility] Work Phone: Blood lymphocytes/100 leukoc yteson 11-07-2021 Lymphocytes/100 WBC (Bld) 14.9 % 19-41 [facility] Work Phone: Blood monocytes/100 leukocyt eson 11-07-2021 Monocytes/100 WBC (Bld) 8.9 % 0-10 [facility] Work Phone: Blood platelet mean volumeon 11-07-2021 Platelet mean volume (Bld) [Entitic vol] 8.5 fL 6.2-12.0 [facility] Work Phone: Determination of erythrocyte mean corpuscular volume (MCV)on 11-07-2021 MCV (RBC) [Entitic vol] 89.1 fL 80-94 [facility] Work Phone: Hematocrit Auto (Bld) [Volum e fraction]on 11-07-2021 Hematocrit (Bld) [Volume fraction] 31.1 % 40-54 [facility] Work Phone: Laboratory - Hematology and Cell countson 11-07-2021 Erythrocyte distribution width (RBC) [Entitic vol] 49.7 fL 35.1-43.9 [facility] Work Phone: Erythrocyte distribution width (RBC) [Ratio] 15.5 % 11.6-14.6 [facility] Work Phone: Immature granulocytes/100 WBC (Bld) 0.400 % 0.0-0.9 [facility] Work Phone: Comment on above: IG% - Immature Granu locytes (promyelocytes, myelocytes and metamyelocytes) > 1% indicates that a LEFT SHIFT is Present. MCH (RBC) [Entitic mass] 29.2 pg 27.0-32.0 [facility] Work Phone: Nucleated RBC/100 WBC (Bld) [Ratio] 0 % 0-5 [facility] Work Phone: MCHC Auto (RBC) [Mass/Vol]on 11-07-2021 MCHC (RBC) [Mass/Vol] 32.8 g/dL 32-36 [facility] Work Phone: Platelets bldon 11-07-2021 Platelets (Bld) [#/Vol] 434 10*3/uL 150-450 [facility] Work Phone: Basophil percentageon 2021 Chloride [Moles/Vol] 104 mmol/L 98-107 [facility] Work Phone: Glucose [Mass/Vol] 117 mg/dL 74-106 [facility] Work Phone: Comment on above: Fasting Glucose resu lt from 100 to 125 mg/dL suggests IMPAIRED HOMEOSTASIS per A.D.A. criteria. Potassium [Moles/Vol] 4.0 mmol/L 3.5-5.1 [facility] Work Phone: Sodium [Moles/Vol] 137 mmol/L 136-145 [facility] Work Phone: Laboratory - Chemistry and C hemistry - challengeon 11-04-2021 CO2 [Moles/Vol] 28.0 mmol/L 21.0-32.0 [facility] Work Phone: Urea nitrogen/Creatinine [Mass ratio] 32.1 mg/mg 10-20 [facility] Work Phone: No Panel Informationon 11-04 Estimated Creatinine Clearance Calc 172.37 ml/min [facility] Work Phone: Estimated GFR (MDRD) Amer 190 mL/min >60 [facility] Work Phone: Comment on above: GFR Calc Estimated GFR (MDRD) Non-Af Amer 157 mL/min >60 [facility] Work Phone: Comment on above: Non- GFR Calc Serum or plasma calcium jody urement (mass/volume)on 11-04-2021 Calcium [Mass/Vol] 8.3 mg/dL 8.5-10.1 [facility] Work Phone: Serum or plasma creatinine m easurement (mass/volume)on 11-04-2021 Creatinine [Mass/Vol] 0.56 mg/dL 0.70-1.30 [facility] Work Phone: Comment on above: The validity of the calculated GFR & GFRAA in patients over 70 years has not been determined. Clinical correlation is essential. Serum or plasma urea nitroge n measurement (mass/volume)on 11-04-2021 Urea nitrogen [Mass/Vol] 18 mg/dL 7-18 [facility] Work Phone: Thin prep Papanicolaou smear with manual screeningon 11-04-2021 Thin prep Papanicolaou smear with manual screening 5 5-15 [facility] Work Phone: Basophil percentageon 2021 Bilirubin [Mass/Vol] 0.30 mg/dL 0.20-1.00 [facility] Work Phone: Comment on above: For patients on eltr ombopag therapy, use of Dimension [place] TBIL is not recommended. Protein [Mass/Vol] 6.9 g/dL 6.4-8.2 [facility] Work Phone: Basophil percentage 0 SEEN /hpf 0-5 [facility] Work Phone: Bilirubin Test strip Ql (U)o n 10-26-2021 Bilirubin Ql (U) Negative Negative [facility] Work Phone: Culture, urineon 10-26-2021 Bacteria identified Cx Nom (U) Culture exhibits no growth. [facility] Work Phone: Ketones Test strip Ql (U)on 10-26-2021 Ketones Ql (U) Negative Negative [facility] Work Phone: Laboratory - Chemistry and C hemistry - challengeon 10-26-2021 ALP [Catalytic activity/Vol] 117 U/L 45-117 [facility] Work Phone: ALT [Catalytic activity/Vol] 34 U/L 16-61 [facility] Work Phone: Globulin (S) [Mass/Vol] 4.9 g/dL 2.2-4.2 [facility] Work Phone: Mucus LM Ql (Urine sed)on Mucus Ql (Urine sed) 0 SEEN /[facility]pf [facility] Work Phone: Nitrite Test strip Ql (U)on 10-26-2021 Nitrite Ql (U) Negative Negative [facility] Work Phone: Protein Test strip Ql (U)on 10-26-2021 Protein Ql (U) 15 mg/dl Negative [facility] Work Phone: Serum or plasma albumin jody urement (mass/volume)on 10-26-2021 Albumin [Mass/Vol] 2.0 g/dL 3.2-5.0 [facility] Work Phone: Serum or plasma albumin/glob ulin mass ratioon 10-26-2021 Albumin/Globulin [Mass ratio] 0.4 {ratio} 0.9-2.4 [facility] Work Phone: Squamous epithelial cells de tection in urine sediment by light microscopyon 10-26-2021 Epithelial cells.squamous LM Ql (Urine sed) 0 SEEN /hpf 0-5 [facility] Work Phone: Thin prep Papanicolaou smear with manual screeningon 10-26-2021 Thin prep Papanicolaou smear with manual screening 27 U/L 15-37 [facility] Work Phone: Urine blood detectionon 10-02 RBC Ql (U) 10 /ul Negative [facility] Work Phone: RBC Ql (U) 0 SEEN /hpf 0-5 [facility] Work Phone: Urine clarityon 10-26-2021 Clarity (U) Clear Clear [facility] Work Phone: Urine color determinationon 10-26-2021 Color (U) Yellow Yellow [facility] Work Phone: Urine glucose detectionon Glucose Ql (U) Normal mg/dl Normal [facility] Work Phone: Urine leukocyte esterase det ection by dipstickon 10-26-2021 Leukocyte esterase Test strip Ql (U) Negative Negative [facility] Work Phone: Urine pHon 10-26-2021 pH (U) 8.0 [pH] 5.0 - 8.0 [facility] Work Phone: Urine sediment bacteria coun t by microscopy (number/high power field)on 10-26-2021 Bacteria LM.HPF (Urine sed) [#/Area] 0 /[HPF] None Seen [facility] Work Phone: Urine specific gravity measu rementon 10-26-2021 Specific gravity (U) [Rel density] 1.010 1.002-1.030 [facility] Work Phone: Urobilinogen Auto test strip Ql (U)on 10-26-2021 Urobilinogen Ql (U) Normal mg/dl Normal [facility] Work Phone: Absolute lymphocyte counton 10-23-2021 Lymphocytes Auto (Unsp spec) [#/Vol] 1.13 10*3/uL 0.83-4.51 [facility] Work Phone: Bacteria identified Cx Nom ( Wound)on 10-23-2021 Wound Culture Presumptive C albicans [facility] Work Phone: Wound Culture Staphylococcus epidermidis [facility] Work Phone: Wound Culture Staphylococcus haemolyticus [facility] Work Phone: Wound Culture Escherichia coli [facility] Work Phone: Basophil percentageon 2021 Basophil percentage 3.5 mg/dL 2.5-4.9 [facility] Work Phone: Basophils/100 WBC (Bld) 0.5 % 0-1 [facility] Work Phone: [phone] Bilirubin [Mass/Vol] 0.30 mg/dL 0.20-1.00 [facility] Work Phone: [phone] Comment on above: For patients on eltr ombopag therapy, use of Dimension [place] TBIL is not recommended. Chloride [Moles/Vol] 101 mmol/L 98-107 [facility] Work Phone: [phone] Eosinophils/100 WBC (Bld) 1.0 % 0-5 [facility] Work Phone: Glucose [Mass/Vol] 111 mg/dL 74-106 [facility] Work Phone: Comment on above: Fasting Glucose resu lt from 100 to 125 mg/dL suggests IMPAIRED HOMEOSTASIS per A.D.A. criteria. Neutrophils (Bld) [#/Vol] 5.8 10*3/uL 2.0-7.7 [facility] Work Phone: Neutrophils/100 WBC (Bld) 71.6 % 47-70 [facility] Work Phone: Potassium [Moles/Vol] 3.9 mmol/L 3.5-5.1 [facility] Work Phone: Protein [Mass/Vol] 6.3 g/dL 6.4-8.2 [facility] Work Phone: Sodium [Moles/Vol] 136 mmol/L 136-145 [facility] Work Phone: WBC (Bld) [#/Vol] 8.1 10*3/uL 4.4-11.0 [facility] Work Phone: Blood erythrocytes count (nu mber/volume)on 10-23-2021 RBC (Bld) [#/Vol] 3.00 10*6/uL 4.6-6.2 [facility] Work Phone: Blood hemoglobin measurement (mass/volume)on 10-23-2021 Hemoglobin (Bld) [Mass/Vol] 9.2 g/dL 13.0-16.5 [facility] Work Phone: Blood lymphocytes/100 leukoc yteson 10-23-2021 Lymphocytes/100 WBC (Bld) 13.9 % 19-41 [facility] Work Phone: Blood monocytes/100 leukocyt eson 10-23-2021 Monocytes/100 WBC (Bld) 12.6 % 0-10 [facility] Work Phone: Blood platelet mean volumeon 10-23-2021 Platelet mean volume (Bld) [Entitic vol] 9.4 fL 6.2-12.0 [facility] Work Phone: Determination of erythrocyte mean corpuscular volume (MCV)on 10-23-2021 MCV (RBC) [Entitic vol] 92.0 fL 80-94 [facility] Work Phone: Gram stain for investigation of transfusion reactionon 10-23-2021 Microscopic observation Gram stain Nom (Unsp spec) [facility] Work Phone: Hematocrit Auto (Bld) [Volum e fraction]on 10-23-2021 Hematocrit (Bld) [Volume fraction] 27.6 % 40-54 [facility] Work Phone: Laboratory - Chemistry and C hemistry - challengeon 10-23-2021 ALP [Catalytic activity/Vol] 120 U/L 45-117 [facility] Work Phone: ALT [Catalytic activity/Vol] 31 U/L 16-61 [facility] Work Phone: CO2 [Moles/Vol] 32.0 mmol/L 21.0-32.0 [facility] Work Phone: Globulin (S) [Mass/Vol] 4.5 g/dL 2.2-4.2 [facility] Work Phone: Magnesium [Mass/Vol] 2.4 mg/dL 1.6-2.6 [facility] Work Phone: Urea nitrogen/Creatinine [Mass ratio] 21.2 mg/mg 10-20 [facility] Work Phone: Laboratory - Hematology and Cell countson 10-23-2021 Erythrocyte distribution width (RBC) [Entitic vol] 49.1 fL 35.1-43.9 [facility] Work Phone: Erythrocyte distribution width (RBC) [Ratio] 14.6 % 11.6-14.6 [facility] Work Phone: Immature granulocytes/100 WBC (Bld) 0.400 % 0.0-0.9 [facility] Work Phone: Comment on above: IG% - Immature Granu locytes (promyelocytes, myelocytes and metamyelocytes) > 1% indicates that a LEFT SHIFT is Present. MCH (RBC) [Entitic mass] 30.7 pg 27.0-32.0 [facility] Work Phone: Nucleated RBC/100 WBC (Bld) [Ratio] 0 % 0-5 [facility] Work Phone: MCHC Auto (RBC) [Mass/Vol]on 10-23-2021 MCHC (RBC) [Mass/Vol] 33.3 g/dL 32-36 [facility] Work Phone: No Panel Informationon 10-23 Estimated Creatinine Clearance Calc 180.83 ml/min [facility] Work Phone: Estimated GFR (MDRD) Amer 208 mL/min >60 [facility] Work Phone: Comment on above: GFR Calc Estimated GFR (MDRD) Non-Af Amer 172 mL/min >60 [facility] Work Phone: Comment on above: Non- GFR Calc Platelets bldon 10-23-2021 Platelets (Bld) [#/Vol] 371 10*3/uL 150-450 [facility] Work Phone: Serum or plasma albumin jody urement (mass/volume)on 10-23-2021 Albumin [Mass/Vol] 1.8 g/dL 3.2-5.0 [facility] Work Phone: Serum or plasma albumin/glob ulin mass ratioon 10-23-2021 Albumin/Globulin [Mass ratio] 0.4 {ratio} 0.9-2.4 [facility] Work Phone: Serum or plasma calcium jody urement (mass/volume)on 10-23-2021 Calcium [Mass/Vol] 8.0 mg/dL 8.5-10.1 [facility] Work Phone: Serum or plasma creatinine m easurement (mass/volume)on 10-23-2021 Creatinine [Mass/Vol] 0.52 mg/dL 0.70-1.30 [facility] Work Phone: Comment on above: The validity of the calculated GFR & GFRAA in patients over 70 years has not been determined. Clinical correlation is essential. Serum or plasma urea nitroge n measurement (mass/volume)on 10-23-2021 Urea nitrogen [Mass/Vol] 11 mg/dL 7-18 [facility] Work Phone: Thin prep Papanicolaou smear with manual screeningon 10-23-2021 Thin prep Papanicolaou smear with manual screening 23 U/L 15-37 [facility] Work Phone: Thin prep Papanicolaou smear with manual screening 3 5-15 [facility] Work Phone: Glucose Glucometer (BldC) [M ass/Vol]on 10-19-2021 Glucose [Mass/Vol] 130 mg/dL 74-106 [facility] Work Phone: Comment on above: MANAGEMENT OF PATIEN T CARE PER NURSING PROTOCOL Vancomycin troughon 10-20-19 Vancomycin trough [Mass/Vol] 19.4 ug/mL 5.0-15.0 [facility] Work Phone: Comment on above: VANCOMYCIN STANDARED DRUG THERAPY TROUGH LEVEL: 5.0 - 15.0 mg/L VANCOMYCIN HIGH INTENSITY THERAPY TROUGH LEVEL: 15.0 - 20.0 mg/L High Intensity therapy recommended for serious lifethreatening infections include:- Kxjturqycw-Qmfmjotmpbor-Fpobhrbxe (Ventilator/Healtcare Associated)-Sepsis PLEASE CONTACT PHARMACY SERVICES (#[id number]) FOR INTERPRETATIONOF RESULTS. Serum or plasma vancomycin m easurement (mass/volume)on 10-18-2021 Vancomycin [Mass/Vol] 13.1 ug/mL 0.0-15.0 [facility] Work Phone: Comment on above: VANCOMYCIN STANDARD DRUG THERAPY: CRITICAL VALUE IS > 15.0 mg/L VANCOMYCIN HIGH INTENSITY THERAPY: CRITICAL VALUE IS > 20.0 mg/L PLEASE CONTACT PHARMACY SERVICES (#[id number]) FOR INTERPRETATIONOF RESULTS. THIS RESULT DOES NOT REPRESENT A PEAK OR TROUGHLEVEL FOR THIS DRUG. Basophil percentageon 2021 Basophil percentage 0 SEEN /hpf 0-5 [facility] Work Phone: Bilirubin Test strip Ql (U)o n 10-15-2021 Bilirubin Ql (U) Negative Negative [facility] Work Phone: Ketones Test strip Ql (U)on 10-15-2021 Ketones Ql (U) Negative Negative [facility] Work Phone: Mucus LM Ql (Urine sed)on Mucus Ql (Urine sed) 0 SEEN /hpf [facility] Work Phone: Nitrite Test strip Ql (U)on 10-15-2021 Nitrite Ql (U) Negative Negative [facility] Work Phone: Protein Test strip Ql (U)on 10-15-2021 Protein Ql (U) Negative Negative [facility] Work Phone: Squamous epithelial cells de tection in urine sediment by light microscopyon 10-15-2021 Epithelial cells.squamous LM Ql (Urine sed) 0 SEEN /hpf 0-5 [facility] Work Phone: Urine blood detectionon 10-01 RBC Ql (U) 10 /ul Negative [facility] Work Phone: RBC Ql (U) 0 SEEN /hpf 0-5 [facility] Work Phone: Urine clarityon 10-15-2021 Clarity (U) Clear Clear [facility] Work Phone: Urine color determinationon 10-15-2021 Color (U) Yellow Yellow [facility] Work Phone: Urine glucose detectionon Glucose Ql (U) Normal mg/dl Normal [facility] Work Phone: Urine leukocyte esterase det ection by dipstickon 10-15-2021 Leukocyte esterase Test strip Ql (U) Negative Negative [facility] Work Phone: Urine pHon 10-15-2021 pH (U) 5.0 [pH] 5.0 - 8.0 [facility] Work Phone: Urine sediment bacteria coun t by microscopy (number/high power field)on 10-15-2021 Bacteria LM.HPF (Urine sed) [#/Area] 0 /[HPF] None Seen [facility] Work Phone: Urine specific gravity measu rementon 10-15-2021 Specific gravity (U) [Rel density] 1.015 1.002-1.030 [facility] Work Phone: Urobilinogen Auto test strip Ql (U)on 10-15-2021 Urobilinogen Ql (U) Normal mg/dl Normal [facility] Work Phone: Basophil percentageon 2021 Triglyceride [Mass/Vol] 121 mg/dL <199 [facility] Work Phone: Comment on above: The drugs N-Acetylcy steine and Metamizole may falsely depress this assay.Serum Triglycerides Reference Interval Normal <150 mg/dL Borderline high 150 - 199 mg/dL High 200 - 499 mg/dL Very High > or = 500 mg/dL Serum or plasma transthyreti n measurement (mass/volume)on 10-09-2021 Prealbumin [Mass/Vol] 7.9 mg/dL 20.0-40.0 [facility] Work Phone: No Panel Informationon 10-07 Troponin I High Sensitivity 11 pg/mL 3.0-78.0 [facility] Work Phone: Comment on above: Please Note: New Susy t Units and Gender Specific Reference Ranges. For more information see Policy Stat Procedure [place] High Sensitivity Troponin (TNIH) and attachments. Blood manual differential co mment interpretation (narrative result)on 10-03-2021 Manual differential comment [place] (Bld) [Interp] SCANNED [facility] Work Phone: Review by pathologiston Pathologist review [place] (Unsp spec) [Interp] Reviewed [facility] Work Phone: Comment on above: Previous reported re sult: Taisha dyson Edited by: RGOOD on 10/04/21:0917Neutrophilic leukocytosis.Thrombocytosis.Clinical correlation necessary.Burt Sierra M.D. 10/04/21 AMENDED REPORT 10/04/21 0917 PATH REV previously reported as: Taisha dyson Laboratory - Coagulationon 0 10-02-2021 aPTT Coag (Bld) [Time] 33.5 s 24.1-36.2 [facility] Work Phone: Direct bilirubinon 2 Bilirubin.direct [Mass/Vol] 0.18 mg/dL 0.00-0.30 [facility] Work Phone: Laboratory - Chemistry and C hemistry - challengeon 09-20-2021 Lipase [Catalytic activity/Vol] 73 U/L 73-393 [facility] Work Phone: XR Shoulder - right 3 Viewso n 06-12-2021 IMPRESSION: Benign reactive changes, otherwise no significant bone or articular disease identified. Milk Tanker Driver: FAM Transcribe Date/Time: Jun 12 2021 10:51A Dictated by : ALYSA AKBAR MD This examination was interpreted and the report reviewed and electronically signed by: ALYSA AKBAR MD on Jun 12 2021 11:02AM [facility] DIVISION OF RADIOLOGY * * *Final Report* [...] examination of 2010. DIVISION OF RADIOLOGY Provider, [facility] - 06/12/2021 * * *Final Report* * [...] shoulder pain . TECHNIQUE: XR SHLDR >/=3V AP/SAHNA AP/OTHR RT Laterality: RIGHT Number of different [...] no significant bone or articular disease identified. Milk Tanker Driver: PSCB Transcribe Date/Time: Jun 12 2021 10:51A Dictated by : ALYSA AKBAR MD This examination was interpreted and the report reviewed and electronically signed by: ALYSA AKBAR MD on Jun 12 2021 11:02AM [facility] Radiology Study observation (narrative) [place]e XR Shoulder - right 3 ViewsO rdered By: [facility] Provider on 06-12-2021 [facility] Bacteria identified Cx Nom ( Wound) Wound Culture Presumptive C albicans [facility] Work Phone: Wound Culture Staphylococcus epidermidis [facility] Work Phone: Wound Culture Staphylococcus haemolyticus [facility] Work Phone: Wound Culture Escherichia coli [facility] Work Phone: Culture, urine Bacteria identified Cx Nom (U) Culture exhibits no growth. [facility] Work Phone: Gram stain for investigation of transfusion reaction Microscopic observation Gram stain Nom (Unsp spec) [facility] Work Phone: Vital Signs Date Time Vital Sign Value Performing Clinician Facility 04-14-2025 21:00-0400 Body temperature 98 [degF] Dr. Zoraida Marino MD Work Phone: [facility] 04-14-2025 21:00-0400 Diastolic blood pressure 89 mm[Hg] Dr. Zoraida Marino MD Work Phone: [facility] 04-14-2025 21:00-0400 Heart rate 82 /min Dr. Zoraida Marino MD Work Phone: [facility] 04-14-2025 21:00-0400 Respiratory rate 18 /min Dr. Zoraida Marino MD Work Phone: [facility] 04-14-2025 21:00-0400 SaO2% (BldA) [Mass fraction] 100 % Dr. Zoraida Marino MD Work Phone: [facility] 04-14-2025 21:00-0400 Systolic blood pressure 146 mm[Hg] Dr. Zoraida Marino MD Work Phone: [facility] 04-14-2025 19:00-0400 Body mass index (BMI) [Ratio] 27.2 kg/m2 Dr. Zoraida Marino MD Work Phone: [facility] 04-14-2025 19:00-0400 Body weight 101.[address] Zoraida Marino MD Work Phone: [facility] 04-14-2025 17:34-0400 Body height 193.[address] Zoraida Marino MD Work Phone: [facility] 10-24-2024 08:06-0400 Body height 193.[address] Zoraida Marino MD Work Phone: [facility] 10-24-2024 08:06-0400 Body mass index (BMI) [Ratio] 27.1 kg/m2 Dr. Zoraida Marino MD Work Phone: [facility] 10-24-2024 08:06-0400 Body temperature 97.3 [degF] Dr. Zoraida Marino MD Work Phone: [facility] 10-24-2024 08:06-0400 Body weight 101.[address] Zoraida Marino MD Work Phone: [facility] 10-24-2024 08:06-0400 Diastolic blood pressure 82 mm[Hg] Dr. Zoraida Marino MD Work Phone: [facility] 10-24-2024 08:06-0400 Heart rate 106 /min Dr. Zoraida Marino MD Work Phone: [facility] 10-24-2024 08:06-0400 Respiratory rate 16 /min Dr. Zoraida Marino MD Work Phone: [facility] 10-24-2024 08:06-0400 SaO2% (BldA) [Mass fraction] 96 % Dr. Zoraida Marino MD Work Phone: [facility] 10-24-2024 08:06-0400 Systolic blood pressure 132 mm[Hg] Dr. Zoraida Marino MD Work Phone: [facility] 09-30-2024 12:42-0500 Body temperature 97.8 [degF] Dr. Zoraida Marino MD Work Phone: [facility] 09-30-2024 12:42-0500 Diastolic blood pressure 87 mm[Hg] Dr. Zoraida Marino MD Work Phone: [facility] 09-30-2024 12:42-0500 Heart rate 87 /min Dr. Zoraida Marino MD Work Phone: [facility] 09-30-2024 12:42-0500 Respiratory rate 18 /min Dr. Zoraida Marino MD Work Phone: [facility] 09-30-2024 12:42-0500 SaO2% (BldA) [Mass fraction] 94 % Dr. Zoraida Marino MD Work Phone: [facility] 09-30-2024 12:42-0500 Systolic blood pressure 156 mm[Hg] Dr. Zoraida Marino MD Work Phone: [facility] 09-29-2024 09:46-0500 Inhaled oxygen flow rate 1.5 L/min Dr. Zoraida Marino MD Work Phone: [facility] 09-29-2024 05:07-0500 Body mass index (BMI) [Ratio] 27.2 kg/m2 Dr. Zoraida Marino MD Work Phone: [facility] 09-29-2024 05:07-0500 Body weight 101.[address] Zoraida Marino MD Work Phone: [facility] 09-28-2024 08:00-0500 Inhaled oxygen concentration 30 % Dr. Zoraida Marino MD Work Phone: [facility] 08-16-2024 14:12-0500 Body mass index (BMI) [Ratio] 27.1 kg/m2 Dr. Zoraida Marino MD Work Phone: [facility] 08-16-2024 14:12-0500 Body temperature 98.4 [degF] Dr. Zoraida Marino MD Work Phone: [facility] 08-16-2024 14:12-0500 Body weight 101.[address] Zoraida Marino MD Work Phone: [facility] 08-16-2024 14:12-0500 Diastolic blood pressure 70 mm[Hg] Dr. Zoraida Marino MD Work Phone: [facility] 08-16-2024 14:12-0500 Heart rate 78 /min Dr. Zoraida Marino MD Work Phone: [facility] 08-16-2024 14:12-0500 Respiratory rate 16 /min Dr. Zoraida Marino MD Work Phone: [facility] 08-16-2024 14:12-0500 SaO2% (BldA) [Mass fraction] 95 % Dr. Zoraida Marino MD Work Phone: [facility] 08-16-2024 14:12-0500 Systolic blood pressure 136 mm[Hg] Dr. Zoraida Marino MD Work Phone: [facility] 07-31-2024 13:05-0500 Diastolic blood pressure 85 mm[Hg] Dr. Zoraida Marino MD Work Phone: [facility] 07-31-2024 13:05-0500 Heart rate 69 /min Dr. Zoraida Marino MD Work Phone: [facility] 07-31-2024 13:05-0500 Respiratory rate 20 /min Dr. Zoraida Marino MD Work Phone: [facility] 07-31-2024 13:05-0500 SaO2% (BldA) [Mass fraction] 93 % Dr. Zoraida Marino MD Work Phone: [facility] 07-31-2024 13:05-0500 Systolic blood pressure 130 mm[Hg] Dr. Zoraida Marino MD Work Phone: [facility] 07-31-2024 11:41-0500 Body temperature 98.5 [degF] Dr. Zoraida Marino MD Work Phone: [facility] 07-31-2024 10:19-0500 Body mass index (BMI) [Ratio] 27.6 kg/m2 Dr. Zoraida Marino MD Work Phone: [facility] 07-31-2024 10:19-0500 Body weight 102.[address] Zoraida Marino MD Work Phone: [facility] 06-01-2024 14:47-0400 Body height 193 cm Evan Walden MD Work Phone: [facility] 06-01-2024 14:47-0400 Body mass index (BMI) [Ratio] 27.27 kg/m2 Evan Walden MD Work Phone: [facility] 06-01-2024 14:47-0400 Body weight 101.61 kg Evan Walden MD Work Phone: [facility] 06-01-2024 14:47-0400 Heart rate 88 /min Evan Walden MD Work Phone: [facility] 06-01-2024 14:47-0400 SaO2% (BldA) [Mass fraction] 97 % Evan Walden MD Work Phone: [facility] 08-31-2023 07:12-0500 Body height 193.[address] Zoraida Marino Work Phone: [facility] 08-31-2023 07:12-0500 Body mass index (BMI) [Ratio] 28.5 kg/m2 Dr. Zoraida Marino Work Phone: [facility] 08-31-2023 07:12-0500 Body temperature 98.4 [degF] Dr. Zoraida Marino Work Phone: [facility] 08-31-2023 07:12-0500 Body weight 106.[address] Zoraida Marino Work Phone: [facility] 08-31-2023 07:12-0500 Diastolic blood pressure 108 mm[Hg] Dr. Zoraida Marino Work Phone: [facility] 08-31-2023 07:12-0500 Heart rate 82 /min Dr. Zoraida Marino Work Phone: [facility] 08-31-2023 07:12-0500 Respiratory rate 18 /min Dr. Zoraida Marino Work Phone: [facility] 08-31-2023 07:12-0500 SaO2% (BldA) [Mass fraction] 96 % Dr. Zoraida Marino Work Phone: [facility] 08-31-2023 07:12-0500 Systolic blood pressure 182 mm[Hg] Dr. Zoraida Marino Work Phone: [facility] 08-26-2023 10:47-0500 Body temperature 98.6 [degF] Dr. Zoraida Marino Work Phone: [facility] 08-26-2023 10:47-0500 Diastolic blood pressure 80 mm[Hg] Dr. Zoraida Marino Work Phone: [facility] 08-26-2023 10:47-0500 Heart rate 88 /min Dr. Zoraida Marino Work Phone: [facility] 08-26-2023 10:47-0500 Respiratory rate 16 /min Dr. Zoraida Marino Work Phone: [facility] 08-26-2023 10:47-0500 SaO2% (BldA) [Mass fraction] 98 % Dr. Zoraida Marino Work Phone: [facility] 08-26-2023 10:47-0500 Systolic blood pressure 122 mm[Hg] Dr. Zoraida Marino Work Phone: [facility] 08-17-2023 08:52-0500 Diastolic blood pressure 98 mm[Hg] Dr. Zoraida Marino Work Phone: [facility] 08-17-2023 08:52-0500 Systolic blood pressure 152 mm[Hg] Dr. Zoraida Marino Work Phone: [facility] 08-17-2023 08:01-0500 Body height 193.[address] Zoraida Marino Work Phone: [facility] 08-17-2023 08:01-0500 Body mass index (BMI) [Ratio] 29.5 kg/m2 Dr. Zoraida Marino Work Phone: [facility] 08-17-2023 08:01-0500 Body temperature 97.6 [degF] Dr. Zoraida Marino Work Phone: [facility] 08-17-2023 08:01-0500 Body weight 110.[address] Zoraida Marino Work Phone: [facility] 08-17-2023 08:01-0500 Heart rate 85 /min Dr. Zoraida Marino Work Phone: [facility] 08-17-2023 08:01-0500 Respiratory rate 16 /min Dr. Zoraida Marino Work Phone: [facility] 08-17-2023 08:01-0500 SaO2% (BldA) [Mass fraction] 98 % Dr. Zoraida Marino Work Phone: [facility] 07-02-2023 11:46-0500 Body height 193.[address] Zoraida Marino Work Phone: [facility] 07-02-2023 11:46-0500 Body temperature 98.4 [degF] Dr. Zoraida Marino Work Phone: [facility] 07-02-2023 11:46-0500 Diastolic blood pressure 98 mm[Hg] Dr. Zoraida Marino Work Phone: [facility] 07-02-2023 11:46-0500 Heart rate 85 /min Dr. Zoraida Marino Work Phone: [facility] 07-02-2023 11:46-0500 Respiratory rate 17 /min Dr. Zoraida Marino Work Phone: [facility] 07-02-2023 11:46-0500 SaO2% (BldA) [Mass fraction] 95 % Dr. Zoraida Marino Work Phone: [facility] 07-02-2023 11:46-0500 Systolic blood pressure 154 mm[Hg] Dr. Zoraida Marino Work Phone: [facility] 05-07-2023 07:48-0400 Body mass index (BMI) [Ratio] 28.5 kg/m2 Dr. Zoraida Marino Work Phone: [facility] 05-07-2023 07:48-0400 Body temperature 98.6 [degF] Dr. Zoraida Marino Work Phone: [facility] 05-07-2023 07:48-0400 Body weight 106.[address] Zoraida Marino Work Phone: [facility] 05-07-2023 07:48-0400 Diastolic blood pressure 82 mm[Hg] Dr. Zoraida Marino Work Phone: [facility] 05-07-2023 07:48-0400 Heart rate 75 /min Dr. Zoraida Marino Work Phone: [facility] 05-07-2023 07:48-0400 Respiratory rate 17 /min Dr. Zoraida Marino Work Phone: [facility] 05-07-2023 07:48-0400 SaO2% (BldA) [Mass fraction] 96 % Dr. Zoraida Marino Work Phone: [facility] 05-07-2023 07:48-0400 Systolic blood pressure 142 mm[Hg] Dr. Zoraida Marino Work Phone: [facility] 10-09-2022 08:20-0500 Body height 193.[address] Zoraida Marino Work Phone: [facility] 10-09-2022 08:20-0500 Body mass index (BMI) [Ratio] 28.1 kg/m2 Dr. Zoraida Marino Work Phone: [facility] 10-09-2022 08:20-0500 Body temperature 98.7 [degF] Dr. Zoraida Marino Work Phone: [facility] 10-09-2022 08:20-0500 Body weight 104.[address] Zoraida Marino Work Phone: [facility] 10-09-2022 08:20-0500 Diastolic blood pressure 90 mm[Hg] Dr. Zoraida Marino Work Phone: [facility] 10-09-2022 08:20-0500 Heart rate 98 /min Dr. Zoraida Marino Work Phone: [facility] 10-09-2022 08:20-0500 Respiratory rate 17 /min Dr. Zoraida Marino Work Phone: [facility] 10-09-2022 08:20-0500 SaO2% (BldA) [Mass fraction] 97 % Dr. Zoraida Marino Work Phone: [facility] 10-09-2022 08:20-0500 Systolic blood pressure 140 mm[Hg] Dr. Zoraida Marino Work Phone: [facility] 08-14-2022 11:03-0500 Body temperature 97.1 [degF] Dr. Zoraida Marino Work Phone: [facility] 08-14-2022 11:03-0500 Diastolic blood pressure 97 mm[Hg] Dr. Zoraida Marino Work Phone: [facility] 08-14-2022 11:03-0500 Heart rate 77 /min Dr. Zoraida Marino Work Phone: [facility] 08-14-2022 11:03-0500 Respiratory rate 16 /min Dr. Zoraida Marino Work Phone: [facility] 08-14-2022 11:03-0500 SaO2% (BldA) [Mass fraction] 98 % Dr. Zoraida Marino Work Phone: [facility] 08-14-2022 11:03-0500 Systolic blood pressure 142 mm[Hg] Dr. Zoraida Marino Work Phone: [facility] 08-14-2022 08:30-0500 Body mass index (BMI) [Ratio] 27 kg/m2 Dr. Zoraida Marino Work Phone: [facility] 08-14-2022 08:30-0500 Body weight 100.[address] Zoraida Marino Work Phone: [facility] 07-21-2022 09:38-0500 Body mass index (BMI) [Ratio] 28.4 kg/m2 Dr. Zoraida Marino Work Phone: [facility] 07-21-2022 09:38-0500 Body temperature 99.3 [degF] Dr. Zoraida Marino Work Phone: [facility] 07-21-2022 09:38-0500 Body weight 106.[address] Zoraida Marino Work Phone: [facility] 07-21-2022 09:38-0500 Diastolic blood pressure 78 mm[Hg] Dr. Zoraida Marino Work Phone: [facility] 07-21-2022 09:38-0500 Heart rate 100 /min Dr. Zoraida Marino Work Phone: [facility] 07-21-2022 09:38-0500 Respiratory rate 16 /min Dr. Zoraida Marino Work Phone: [facility] 07-21-2022 09:38-0500 SaO2% (BldA) [Mass fraction] 99 % Dr. Zoraida Marino Work Phone: [facility] 07-21-2022 09:38-0500 Systolic blood pressure 160 mm[Hg] Dr. Zoraida Marino Work Phone: [facility] 01-23-2022 11:36-0400 Diastolic blood pressure 88 mm[Hg] Dr. Linda Dominguez Work Phone: [facility] Work Phone: 01-23-2022 11:36-0400 Systolic blood pressure 146 mm[Hg] Dr. Linda Dominguez Work Phone: [facility] Work Phone: 01-23-2022 10:07-0400 Body height 193.[address] Linda Dominguez Work Phone: [facility] Work Phone: 01-23-2022 10:07-0400 Body mass index (BMI) [Ratio] 29 kg/m2 Dr. Linda Dominguez Work Phone: [facility] Work Phone: 01-23-2022 10:07-0400 Body temperature 98.7 [degF] Dr. Linda Dominguez Work Phone: [facility] Work Phone: 01-23-2022 10:07-0400 Body weight 107.[address] Linda Dominguez Work Phone: [facility] Work Phone: 01-23-2022 10:07-0400 Heart rate 72 /min Dr. Linda Dominguez Work Phone: [facility] Work Phone: 01-23-2022 10:07-0400 Respiratory rate 18 /min Dr. Linda Dominguez Work Phone: [facility] Work Phone: 01-23-2022 10:07-0400 SaO2% (BldA) [Mass fraction] 96 % Dr. Linda Dominguez Work Phone: [facility] Work Phone: 11-22-2021 10:33-0400 Body temperature 97.9 [degF] Dr. Linda Dominguez Work Phone: [facility] Work Phone: 11-13-2021 10:17-0400 Diastolic blood pressure 91 mm[Hg] Dr. Linda Dominguez Work Phone: [facility] Work Phone: 11-13-2021 10:17-0400 Heart rate 101 /min Dr. Linda Dominguez Work Phone: [facility] Work Phone: 11-13-2021 10:17-0400 Respiratory rate 18 /min Dr. Linda Dominguez Work Phone: [facility] Work Phone: 11-13-2021 10:17-0400 SaO2% (BldA) [Mass fraction] 96 % Dr. Linda Dominguez Work Phone: [facility] Work Phone: 11-13-2021 10:17-0400 Systolic blood pressure 138 mm[Hg] Dr. Linda Dominguez Work Phone: [facility] Work Phone: 11-13-2021 06:27-0400 Body height 193.[address] Linda Dominguez Work Phone: [facility] Work Phone: 11-13-2021 06:27-0400 Body mass index (BMI) [Ratio] 28.8 kg/m2 Dr. Linda Dominguez Work Phone: [facility] Work Phone: 11-13-2021 06:27-0400 Body temperature 98.2 [degF] Dr. Linda Dominguez Work Phone: [facility] Work Phone: 11-13-2021 06:27-0400 Body weight 107.[address] Linda Dominguez Work Phone: [facility] Work Phone: 11-09-2021 09:28-0400 Heart rate 99 /min Dr. Linda Dominguez Work Phone: [facility] Work Phone: 11-09-2021 09:28-0400 Respiratory rate 18 /min Dr. Linda Dominguez Work Phone: [facility] Work Phone: 11-09-2021 09:28-0400 SaO2% (BldA) [Mass fraction] 94 % Dr. Linda Dominguez Work Phone: [facility] Work Phone: 11-09-2021 09:06-0400 Body temperature 98.1 [degF] Dr. Linda Dominguez Work Phone: [facility] Work Phone: 11-09-2021 09:06-0400 Diastolic blood pressure 76 mm[Hg] Dr. Linda Dominguez Work Phone: [facility] Work Phone: 11-09-2021 09:06-0400 Systolic blood pressure 132 mm[Hg] Dr. Linda Dominguez Work Phone: [facility] Work Phone: 11-06-2021 12:04-0400 Body height 195.[address] Linda Dominguez Work Phone: [facility] Work Phone: 11-06-2021 12:04-0400 Body weight 104.[address] Linda Dominguez Work Phone: [facility] Work Phone: 10-28-2021 14:26-0400 Inhaled oxygen flow rate 2 L/min Dr. Linda Dominguez Work Phone: [facility] Work Phone: 10-27-2021 05:55-0400 Inhaled oxygen concentration 96 % Dr. Linda Dominguez Work Phone: [facility] Work Phone: 10-23-2021 16:30-0400 Body mass index (BMI) [Ratio] 28.8 kg/m2 Dr. Linda Dominguez Work Phone: [facility] Work Phone: 10-23-2021 14:22-0400 Body temperature 98.2 [degF] Dr. Linda Dominguez Work Phone: [facility] Work Phone: 10-23-2021 14:22-0400 Diastolic blood pressure 84 mm[Hg] Dr. Linda Dominguez Work Phone: [facility] Work Phone: 10-23-2021 14:22-0400 Heart rate 91 /min Dr. Linda Dominguez Work Phone: [facility] Work Phone: 10-23-2021 14:22-0400 Respiratory rate 16 /min Dr. Linda Dominguez Work Phone: [facility] Work Phone: 10-23-2021 14:22-0400 SaO2% (BldA) [Mass fraction] 92 % Dr. Linda Dominguez Work Phone: [facility] Work Phone: 10-23-2021 14:22-0400 Systolic blood pressure 127 mm[Hg] Dr. Linda Dominguez Work Phone: [facility] Work Phone: 10-23-2021 04:45-0400 Body weight 110.[address] Linda Dominguez Work Phone: [facility] Work Phone: 10-12-2021 02:15-0500 Inhaled oxygen flow rate 4 L/min Dr. Linda Dominguez Work Phone: [facility] Work Phone: 10-09-2021 14:17-0500 Body mass index (BMI) [Ratio] 29 kg/m2 Dr. Linda Dominguez Work Phone: [facility] Work Phone: 10-09-2021 13:17-0500 Body mass index (BMI) [Ratio] 29 kg/m2 Dr. Linda Dominguez Work Phone: [facility] Work Phone: 09-26-2021 07:56-0500 Inhaled oxygen concentration 95 % Dr. Linda Dominguez Work Phone: [facility] Work Phone: 09-26-2021 06:56-0500 Inhaled oxygen concentration 95 % Dr. Linda Dominguez Work Phone: [facility] Work Phone: Encounters Encounter Date Encounter Type Care Provider Facility Start: 04-27-2025 End: 04-27-2025 ambulatory Zoraida Ned Facility:[facility] Start: 04-21-2025 ambulatory Zoraida Ned Facility :[facility] Start: 04-14-2025 End: 04-14-2025 Emergency department patient visit Dr. Zoraida Marino MD Work Phone: -Emergency Department Work Phone: Start: 11-09-2024 End: 11-09-[address] Zoraida Marino MD Work Phone: [facility] Work Phone: Start: 11-09-2024 End: 11-09-2024 Patient encounter procedure Maddison LOPEZ -Cardiovascular Services Work Phone: Start: 11-09-2024 End: 11-09-2024 ambulatory [facility] Facility:[facility] Start: 10-24-2024 End: 10-24-[address] Zoraida Marino MD -[facility] Work Phone: Start: 10-24-2024 End: 10[facility]24[facility] Start: 10-10-2024 ambulatory [facility] Facility :[facility] Start: 10-10-[address] Verna Hui MD -[facility] Start: 10-04-2024 ambulatory Verna Pike ty:[facility] Start: 10-04-[address] Verna Hui MD -[facility] Start: 09-30-2024 Non-patient / Non-visit Dr. Shanon Bravo [facility] Work Phone: Start: 09-29-2024 Non-patient / Non-visit Dr. Shanon Bravo DO -[place] Work Phone: Start: 09-28-2024 Non-patient / Non-visit Dr. Dieudonne Thompson own DO -[facility] Start: 09-27-2024 Non-patient / Non-visit Dr. Dieudonne Thompson own DO -[facility] Start: 09-27-2024 Non-patient / Non-visit Dr. Tricia doss MD -[place] [facility] Work Phone: Start: 09-26-2024 Non-patient / Non-visit Dr. Jean Claude mccurdy DO [facility] Work Phone: Start: 09-26-2024 ambulatory [facility] Facility :[facility] Start: 09-26-2024 End: 09-30-2024 Evaluation and management of inpatient Dr. Shanon Bravo DO -Intensive Care Unit Work Phone: Start: 08-16-2024 End: 08-16-[address] Zoraida Marino MD -[facility] Work Phone: Start: 08-16-2024 End: 08-16-2024 ambulatory Zoraida Marino Facility:[facility] Start: 07-31-2024 End: 07-31-2024 Emergency department patient visit Dr. Baljit Fleming DO -Emergency Department Work Phone: Start: 06-01-2024 End: 06-01-2024 ambulatory EVAN WALDEN Facility:[facility] Start: 06-01-2024 End: 06-01-2024 Patient encounter procedure Evan Walden MD Work Phone: Neurology Comment on above: Parkinson's disease without dyskinesia or fluctuating manifestations (HCC) (Primary Dx); Anxiety and depression; Insomnia, unspecified type Start: 05-18-2024 End: 05-18-2024 ambulatory Zoraida Marino Facility:[facility] Start: 04-29-2024 End: 04-29-2024 ambulatory Zoraida Marino Facility:[facility] Start: 10-07-2023 End: 10-07-[address] Zoraida Marino Work Phone: [facility] Work Phone: Start: 10-07-2023 End: 10-07-[address] Zoraida Marino Work Phone: [facility] Work Phone: Start: 09-11-2023 End: 09-11-[address] Zoraida Marino Work Phone: [facility] Work Phone: Start: 09-11-2023 End: 09-11-[address] Zoraida Marino Work Phone: [facility] Work Phone: Start: 08-31-2023 End: 08-31-[address] [facility] Work Phone: Start: 08-26-2023 End: 08-26-[address] Zoraida Marino Work Phone: [facility] Work Phone: Start: 08-17-2023 End: 08-17-[address] Zoraida Marino Work Phone: [facility] Work Phone: Start: 08-14-2023 End: 08-14-[address] Zoraida Marino Work Phone: [facility] Work Phone: Start: 08-14-2023 End: 08-14-[address] Zoraida Marino Work Phone: [facility] Work Phone: Start: 07-22-2023 End: 07-22-[address] Zoraida Marino Work Phone: [facility] Work Phone: Start: 07-22-2023 End: 07-22-[address] Zoraida Marino Work Phone: [facility]Laboratory Work Phone: Start: 07-02-2023 End: 07-02-[address] Zoraida Marino Work Phone: [facility] Work Phone: Start: 05-07-2023 End: 05-07-[address] Zoraida Marino Work Phone: [facility] Work Phone: Start: 10-13-2022 End: 10-13-[address] Zoraida Marino Work Phone: [facility] Work Phone: Start: 10-13-2022 End: 10-13-[address] Zoraida Marino Work Phone: [facility] Start: 10-09-2022 End: 10-09-[address] Zoraida Marino Work Phone: [facility] Start: 09-15-2022 End: 09-15-[address] Zoraida Marino Work Phone: [facility] Services/Neurology Start: 08-14-2022 Non-patient / Non-visit Dr. Echevarria Work Phone: [facility] Start: 08-14-2022 End: 08-14-2022 Admission to same day surgery center Dr. Zoraida Marino Work Phone: [facility]End[facility] Start: 07-21-2022 End: 07-21-[address] Zoraida Marino Work Phone: [facility] Start: 02-24-2022 ambulatory Sabrina Acosta [facility] [place] Comment on above: Population Health [facility] Outreach ([facility]) Start: 01-31-2022 End: 01-31-[address] Linda Dominguez Work Phone: [facility] Start: 01-23-2022 End: 01-23-[address] Linda Dominguez Work Phone: [facility] Internal Medicine Start: 01-09-2022 End: 01-09-2022 Patient [...] encounter procedure Dr. Linda Dominguez Work Phone: [facility] Start: 11-26-2021 End: 11-26-[address] Linda Dominguez Work Phone: [facility] Start: 11-22-2021 End: 11-22-[address] Linda Dominguez Work Phone: [facility] Start: 11-14-2021 End: 11-14-[address] Linda Dominguez Work Phone: [facility] Start: 11-13-2021 End: 11-13-2021 Emergency department patient visit Dr. Linda Dominguez Work Phone: [facility]Emergency Department Start: 11-12-2021 Telephone encounter Linda klein MD Work Phone: [facility] [place] Comment on above: home health OT huber ng (severe backpain) Start: 11-11-2021 Patient Outreach Linda mansfield MD Work Phone: [facility] [place] Comment on above: Transition Of Care Start: 11-06-2021 Telephone encounter Linda klein MD Work Phone: [facility] [place] Comment on above: home health calling Start: 11-06-2021 Non-patient / Non-visit Dr. Brina Dominguez Work Phone: [facility] Start: 11-04-2021 Non-patient / Non-visit Dr. Brina Dominguez Work Phone: [facility] Start: 11-01-2021 Non-patient / Non-visit Dr. Brina Dominguez Work Phone: [facility] Start: 10-31-2021 Non-patient / Non-visit Dr. Brina Dominguez Work Phone: [facility] Start: 10-29-2021 Non-patient / Non-visit Dr. Brina Dominguez Work Phone: [facility] Start: 10-28-2021 Non-patient / Non-visit Dr. Brina Dominguez Work Phone: [facility] Start: 10-27-2021 Non-patient / Non-visit Dr. Brina Dominguez Work Phone: [facility] Start: 10-26-2021 Non-patient / Non-visit Dr. Brina Dominguez Work Phone: [facility] Start: 10-25-2021 Non-patient / Non-visit Dr. Brina Dominguez Work Phone: [facility] Start: 10-24-2021 Non-patient / Non-visit Dr. Brina Dominguez Work Phone: [facility] Start: 10-23-2021 End: 11-09-2021 Evaluation and management of inpatient Dr. Linda Dominguez Work Phone: [facility]Transitional [facility] Start: 10-23-2021 Non-patient / Non-visit Dr. Brina Dominguez Work Phone: [facility] Start: 10-22-2021 Non-patient / Non-visit Dr. Brina Dominguez Work Phone: [facility] Start: 10-21-2021 Non-patient / Non-visit Dr. Brina Dominguez Work Phone: [facility] Start: 10-20-2021 Non-patient / Non-visit Dr. Brina Dominguez Work Phone: [facility] Start: 10-19-2021 Non-patient / Non-visit Dr. Brina Dominguez Work Phone: [facility] Start: 10-18-2021 Non-patient / Non-visit Dr. Brina Dominguez Work Phone: [facility] Start: 10-17-2021 Non-patient / Non-visit Dr. Brina Dominguez Work Phone: [facility] Start: 10-16-2021 Non-patient / Non-visit Dr. Brina Dominguez Work Phone: [facility] Start: 10-15-2021 Non-patient / Non-visit Dr. Brina Dominguez Work Phone: [facility] Start: 10-14-2021 Non-patient / Non-visit Dr. Brina Dominguez Work Phone: [facility] Start: 10-11-2021 Non-patient / Non-visit Dr. Brina Dominguez Work Phone: [facility] Start: 10-10-2021 Non-patient / Non-visit Dr. Brina Dominguez Work Phone: [facility] Start: 10-09-2021 Non-patient / Non-visit Dr. Brina Dominguez Work Phone: [facility] Start: 10-08-2021 Non-patient / Non-visit Dr. Brina Dominguez Work Phone: [facility] Start: 10-07-2021 Non-patient / Non-visit Dr. Brina Dominguez Work Phone: [facility] Start: 10-06-2021 Non-patient / Non-visit Dr. Brina Dominguez Work Phone: [facility] Start: 10-05-2021 Non-patient / Non-visit Dr. Brina Dominguez Work Phone: [facility] Start: 10-04-2021 Non-patient / Non-visit Dr. Brina Dominguez Work Phone: [facility] Start: 10-03-2021 Non-patient / Non-visit Dr. Brina Dominguez Work Phone: [facility] Start: 10-02-2021 Non-patient / Non-visit Dr. Brina Dominguez Work Phone: [facility] Start: 10-01-2021 Non-patient / Non-visit Dr. Brina Dominguez Work Phone: [facility] Start: 09-30-2021 Non-patient / Non-visit Dr. Brina Dominguez Work Phone: [facility] Start: 09-27-2021 Non-patient / Non-visit Dr. Brina Dominguez Work Phone: [facility] Start: 09-26-2021 Non-patient / Non-visit Dr. Brina Dominguez Work Phone: [facility] Start: 09-25-2021 Non-patient / Non-visit Dr. Brina Dominguez Work Phone: [facility] Start: 09-24-2021 Non-patient / Non-visit Dr. Brina Dominguez Work Phone: [facility] Start: 09-23-2021 Non-patient / Non-visit Dr. Brina Dominguez Work Phone: [facility] Start: 09-22-2021 Non-patient / Non-visit Dr. Brina Dominguez Work Phone: [facility] Start: 09-21-2021 End: 10-23-2021 Evaluation and management of inpatient [facility] Start: 09-21-2021 Non-patient / Non-visit Dr. Brina Dominguez Work Phone: [facility] Start: 06-12-2021 End: 06-12-2021 Subsequent hospital visit by physician [facility] Work Phone: Radiology Comment on above: [...] compl ete minimum 2 views Elidia Dacaiohausen HYDRATOR.HAND MODEL Work Phone: Start: 02-07-2021 Lipid 1996 panel [...] RSV Vaccine (1 - 1-dose 75+ series) [facility] Start: 02-07-2026 Lipid panel Lipid Screening [facility] Start: 02-07-2026 LIPID SCREEN LIPID SCREEN [facility] Start: 05-22-2025 PROSTATE CANCER SCRE ENING DISCUSSION PROSTATE CANCER SCREENING DISCUSSION [facility] Start: 05-22-2025 Prostate specific an tigen measurement Prostate Cancer Screening Discussion [facility] Start: 04-14-2025 [facility] Start: 09-30-2024 Patient discharge [facility] Start: 09-29-2024 Care planning and pr oblem solving actions [facility] Start: 09-28-2024 [facility] Start: 09-28-2024 Determination of Chao hmond Agitation Sedation Scale (RASS) score with assessment for d [facility] Start: 09-27-2024 End: 09-27-2024 [facility] Start: 09-27-2024 Provision of overbed trapeze [facility] Start: 09-27-2024 Ambulation therapy management [facility] Start: 09-27-2024 Application of device [facility] Start: 09-27-2024 Catheterization of vein [facility] Start: 09-27-2024 Exercises [facility] Start: 09-27-2024 Following clinical pathway protocol [facility] Start: 09-27-2024 Introduction of urin pawel catheter [facility] Start: 09-27-2024 Measuring intake and output [facility] Start: 09-27-2024 Neurovascular assessment [facility] Start: 09-27-2024 Patient education [facility] Start: 09-27-2024 Procedure discontinued [facility] Start: 09-27-2024 Provision of activit y privileges [facility] Start: 09-27-2024 Recommendation to continue with treatment [facility] Start: 09-27-2024 Referral to occupati onal therapist [facility] Start: 09-27-2024 Vital signs measurements [facility] Start: 09-27-2024 Wound care [facility] Start: 09-27-2024 Measuring intake and output [facility] Start: 09-27-2024 Measuring intake and output [facility] Start: 09-27-2024 Care planning and pr oblem solving actions [facility] Start: 09-27-2024 Measuring intake and output [facility] Start: 09-27-2024 Oral health maintenance [facility] Start: 09-26-2024 Following clinical pathway protocol [facility] Start: 09-26-2024 Application of ice collar, cap or bag [facility] Start: 09-26-2024 Bedrest [facility] Start: 09-26-2024 Consultation [facility] Start: 09-26-2024 Insertion of cathete r into peripheral vein [facility] Start: 09-26-2024 Neurovascular assessment [facility] Start: 09-26-2024 Providing care accor ding to standard [facility] Start: 09-26-2024 Referral to service [facility] Start: 09-26-2024 Skin care [facility] Start: 09-26-2024 [facility] Start: 09-26-2024 Measuring intake and output [facility] Start: 09-26-2024 Admission procedure [facility] Start: 09-14-2024 End: 09-14-2024 Patient encounter procedure 09/14/2024 1:30 PM EST Office Visit Neurology [address] [place] [address] Evan Walden MD [address] [place] [id number] 3 month follow up Neurology Comment on above: 3 month follow up Start: 08-17-2024 Patient referral [facility] Work Phone: Start: 06-01-2024 End: 06-01-2024 Patient encounter procedure 06/01/2024 3:00 PM EDT Office Visit Neurology [address] [place] [address] Evan Walden MD [address] [place], [place] [id number] having tremors in his hands, involutary tongue movements Neurology Comment on above: having tremors in hi s hands, involutary tongue movements Start: 04-03-2024 Covid-19 Vaccine ( season) Covid-19 Vaccine ( season) [facility] Start: 04-03-2024 Covid-19 Vaccine ( season) Covid-19 Vaccine ( season) [facility] Start: 04-03-2024 Influenza vaccination Influenza Vacc ine (#1) [facility] Start: 02-08-2024 DIABETES SCREEN DIABETES SCREEN [facility] Start: 02-08-2024 Diabetes Screening Diabetes Screenin g [facility] Start: 10-21-2023 Urine microalbumin profile [facility] Start: 08-14-2022 Colsc flx w/rmvl of tumor polyp lesion snare tq COLONOSCOPY W/LESION REMOVAL [facility] Start: 08-14-2022 Patient discharge [facility] Start: 07-11-2022 BP CONTROLLED (<130/80) BP CONTROLLE D (<130/80) [facility] Start: 04-03-2022 Influenza vaccination C [facility] Start: 02-08-2022 ANNUAL PCP TEAM DATAPOWER DEVELOPER MACK DISEASE VISIT ANNUAL PCP TEAM CHRONIC DISEASE VISIT [facility] Start: 02-08-2022 SHINGRIX VACCINE (1 of 2) CORBIN GRIX VACCINE (1 of 2) [facility] Comment on above: Postponed from 09/09 (Declined at this time) Start: 01-23-2022 Patient referral [facility] Work Phone: Start: 11-16-2021 COVID-19 VACCINE (4 - Booster for Pfizer series) COVID-19 VACCINE (4 - Booster for Pfizer series) [facility] Start: 11-09-2021 Development of care plan [facility] Work Phone: Start: 11-09-2021 Patient discharge [facility] Work Phone: Start: 11-06-2021 Referral to service [facility] Work Phone: Start: 11-04-2021 [facility] Work Phone: Start: 10-28-2021 Consultation [facility] Work Phone: Start: 10-27-2021 [facility] Work Phone: Start: 10-26-2021 [facility] Work Phone: Start: 10-26-2021 Continuous pulse oximetry [facility] Work Phone: Start: 10-26-2021 Oxygen therapy [facility] Work Phone: Start: 10-26-2021 Dual pressure sponta neous ventilation support [facility] Work Phone: Start: 10-25-2021 [facility] Work Phone: Start: 10-24-2021 Developing a treatme nt plan [facility] Work Phone: Start: 10-24-2021 Development of care plan [facility] Work Phone: Start: 10-24-2021 Application of elast ic bandage [facility] Work Phone: Start: 10-23-2021 Referral to general surgeon [facility] Work Phone: Start: 10-23-2021 Patient referral to dietitian [facility] Work Phone: Start: 10-23-2021 Peripherally inserte d central catheter care [facility] Work Phone: Start: 10-23-2021 Consultation for treatment [facility] Work Phone: Start: 10-23-2021 Wound care [facility] Work Phone: Start: 10-23-2021 Admission procedure [facility] Work Phone: Start: 10-23-2021 Measuring intake and output [facility] Work Phone: Start: 10-23-2021 Patient referral to dietitian [facility] Work Phone: Start: 10-23-2021 Referral to occupati onal therapist [facility] Work Phone: Start: 10-23-2021 Referral to service [facility] Work Phone: Start: 10-23-2021 Vital signs measurements [facility] Work Phone: Start: 10-23-2021 [facility] Work Phone: Start: 10-23-2021 Patient discharge [facility] Work Phone: Start: 10-23-2021 [facility] Work Phone: Start: 10-18-2021 Administration of to josselin parenteral nutrition [facility] Work Phone: Start: 10-17-2021 Administration of to josslein parenteral nutrition [facility] Work Phone: Start: 10-17-2021 [facility] Work Phone: Start: 10-16-2021 Referral to service [facility] Work Phone: Start: 10-16-2021 Administration of to josselin parenteral nutrition [facility] Work Phone: Start: 10-16-2021 [facility] Work Phone: Start: 10-15-2021 Administration of to josselin parenteral nutrition [facility] Work Phone: Start: 10-15-2021 [facility] Work Phone: Start: 10-14-2021 Administration of to josselin parenteral nutrition [facility] Work Phone: Start: 10-13-2021 [facility] Work Phone: Start: 10-13-2021 Administration of to josselin parenteral nutrition [facility] Work Phone: Start: 10-12-2021 Administration of to josselin parenteral nutrition [facility] Work Phone: Start: 10-11-2021 End: 10-12-2021 [facility] Work Phone: Start: 10-11-2021 Consultation [facility] Work Phone: Start: 10-11-2021 Administration of to josselin parenteral nutrition [facility] Work Phone: Start: 10-11-2021 Consultation for treatment [facility] Work Phone: Start: 10-10-2021 Referral to occupati onal therapist [facility] Work Phone: Start: 10-10-2021 Referral to service [facility] Work Phone: Start: 10-10-2021 Wound care [facility] Work Phone: Start: 10-10-2021 Administration of to josselin parenteral nutrition [facility] Work Phone: Start: 10-09-2021 End: 10-09-2021 Administration of total parenteral nutrition [facility] Work Phone: Start: 10-08-2021 Administration of to josselin parenteral nutrition [facility] Work Phone: Start: 10-07-2021 Administration of to josselin parenteral nutrition [facility] Work Phone: Start: 10-06-2021 Administration of to josselin parenteral nutrition [facility] Work Phone: Start: 10-05-2021 Administration of to josselin parenteral nutrition [facility] Work Phone: Start: 10-05-2021 Elevation of head of bed [facility] Work Phone: Start: 10-04-2021 Administration of to josselin parenteral nutrition [facility] Work Phone: Start: 10-03-2021 [facility] Work Phone: Start: 10-03-2021 Administration of to josselin parenteral nutrition [facility] Work Phone: Start: 10-02-2021 Administration of to josselin parenteral nutrition [facility] Work Phone: Start: 10-01-2021 Administration of to josselin parenteral nutrition [facility] Work Phone: Start: 09-29-2021 Care planning and pr oblem solving actions [facility] Work Phone: Start: 09-26-2021 Incentive spirometry [facility] Work Phone: Start: 09-25-2021 Introduction of urin pawel catheter [facility] Work Phone: Start: 09-24-2021 Inhalation therapy procedure [facility] Work Phone: Start: 09-22-2021 Application of ice collar, cap or bag [facility] Work Phone: Start: 09-22-2021 End: 09-22-2021 Referral to service [facility] Work Phone: Start: 09-21-2021 Application of intermittent pneumatic compression device [facility] Work Phone: Start: 09-21-2021 Admission procedure [facility] Work Phone: Start: 09-21-2021 Following clinical pathway protocol [facility] Work Phone: Start: 09-21-2021 Admission procedure [facility] Work Phone: Start: 09-21-2021 Assessment of risk o f venous thromboembolism [facility] Work Phone: Start: 09-21-2021 Catheterization of vein [facility] Work Phone: Start: 09-21-2021 Insertion of cathete r into peripheral vein [facility] Work Phone: Start: 09-21-2021 Providing care accor ding to standard [facility] Work Phone: Start: 09-21-2021 [facility] Work Phone: Start: 09-21-2021 Patient referral to dietitian [facility] Work Phone: Start: 09-20-2021 Adult depression screening assessment DEPRESSION SCREENING [facility] Start: 2009 SHINGRIX VACCINE (1 of 2) CORBIN GRIX VACCINE (1 of 2) [facility] Start: 2004 COLOGUARD (FIT-DNA) COLOGUARD (FIT-D NA) [facility] Start: 2004 Colonoscopy COLONOSCOPY [facility] Start: 2004 COLORECTAL CANCER SCREENING COLORECTAL CANCER SCREENING [facility] Start: [address] COLONOGRAPHY [facility] Start: 2004 FECAL OCCULT BLOOD FECAL OCCULT BLOO D [facility] Start: 2004 Screening for malign ant neoplasm of colon [facility] Start: 2004 SIGMOIDOSCOPY SIGMOIDOSCOPY [facility] Start: 1977 Anxiety Screening Anxiety Screening [facility] Start: 1977 BP Controlled (<130/80) BP Controlle d (<130/80) [facility] Start: 1977 Depression Screening Depression Scre ening [facility] Start: 1977 HEPATITIS C SCREENING HEPATITIS C [facility] Start: 1977 Hepatitis C screening Hepatitis C [facility] Start: 1977 HIV SCREENING HIV SCREENING [facility] Start: 1977 HIV screening HIV Screening [facility] Start: 1964 COVID-19 VACCINE (1) COVID-19 VACCIN E (1) [facility] Njx dx/ther sbst int rlmnr crv/thrc w/img gdn EPI CERV OR THORC W/IMAGING Procedures Routine Spinal stenosis of cervical region Ordered: 01/03/2022 [facility] Work Phone: Comment on above: Ordered: 01/03/2022 Patient Education [facility] Work Phone: Patient referral [facility] Work Phone: Polysomnography [facility] US.doppler Lower extremity vein [facility] Immunizations Immunization Date Immunization Notes Care Provider Fa simon 05-29-2022 Covid Pfizer Bivalen t Booster Dr. Zoraida Marino Work Phone: [facility] 07-18-2021 Covid (Pfizer) Dr. Linda monte Work Phone: [facility] 11-18-2020 Covid (Pfizer) Dr. Linda monte Work Phone: [facility] 10-27-2020 Covid (Pfizer) Dr. Linda monte Work Phone: [facility] 08-19-2018 influenza virus vaccine, unspecified formulation Xr [place] Work Phone: [facility] 10-20-2013 tetanus toxoid, redu solo diphtheria toxoid, and acellular pertussis vaccine, adsorbed Linda Dominguez MD Work Phone: [facility] Payers Date Payer Category Payer Self-pay [id number] 2023 Medicare [id number] 2002 Medicare MEDICARE MEDICAR E A AND B [id number] 2002-Present [phone] [address] [address] [place] [address] Medicare [id number] 2002 Medicare [id number] Medicaid [id number] Medicare [id number] Unknown [id number] Unknown [id number] Unknown [id number] Unknown [id number] Unknown [id number] [id number]2 Unknown [id number] [id number]2 Unknown [id number] [id number]2 Unknown [id number] 2.16.840.1.404131.3.579.2.462 Unknown [id number] 2.16.840.1.807212.3.579.2.462 Unknown [id number] 2.16.840.1.787774.3.579.2.462 Unknown [id number] 2.16.840.1.508542.3.579.2.462 Unknown [id number] 2.16.840.1.036877.3.579.2.462 Unknown [id number] 2.16.840.1.297315.3.579.2.462 Unknown [id number] 2.16.840.1.870332.3.579.2.462 Unknown [id number] 2.16.840.1.362360.3.579.2.462 Unknown [id number] 2.16.840.1.707190.3.579.2.462 Unknown [id number] 2.16.840.1.627738.3.579.2.462 Unknown [id number] 2.16.840.1.013032.3.579.2.462 Unknown [id number] 2.16.840.1.798894.3.579.2.462 Unknown [id number] [id number] Unknown [id number] [id number] Social History Date Type Detail Facility Start: 09-04-2017 End: 04-14-2025 Tobacco smoking status NHIS Ex-smoker [facility] Work Phone: Start: 07-11-2021 End: 06-01-2024 Alcohol intake Current non-drinker of alcohol (finding) [facility] Start: 02-08-2021 History SDOH Alcohol Frequency 1 [facility] Start: 02-08-2021 History SDOH Alcohol Std Drinks 98 [facility] Start: 02-08-2021 History SDOH Social Connections Get Together 2 [facility] Start: 02-08-2021 History SDOH Social Connections Lutheran 3 [facility] Start: 02-08-2021 History SDOH Financial 4 [facility] Start: 02-08-2021 Education 14 [facility] Start: 04-25-2014 Tobacco Comment quit 1981 [facility] Start: 1960 Sex Assigned At Not on file [facility] Start: 10-23-2021 End: 08-31-2023 Tobacco smoking status NDIS Unknown if ever smoked [facility] Start: 05-18-2018 Heavy [facility] Start: 05-18-2018 None [facility] Start: 05-18-2018 Spouse/ Significant Other [facility] Start: 05-23-2018 Cigarettes [facility] Start: 1960 Sex Assigned At Male [facility] Start: 04-30-2021 End: 01-08-2022 Exposure to SARS-CoV-2 (event) Not sure [facility] History of tobacco use Current smoker [facility] Start: 09-04-2017 Tobacco use and exposure Smokeless tobacco non-user [facility] Start: 02-08-2021 End: 06-01-2024 History of Social function [facility] Start: 02-08-2021 End: 06-01-2024 Social connection and isolation panel [facility] Do you belong to any clubs or organizations such as hindu groups, unions, fraternal or athletic groups, or school groups? No [facility] How often do you att end meetings of the clubs or organizations you belong to? Patient declined [facility] Are you now , , , , never or living with a partner? [facility] How often to you hav e a drink containing alcohol? Never [facility] How hard is it for y ou to pay for the very basics like food, housing, medical care, and heating Not very hard [facility] Do you feel stress - tense, restless, nervous, or anxious, or unable to sleep at night because your mind is troubled all the time - these days [OSQ] To some extent [facility] (I/We) worried wheth er (my/our) food would run out before (I/we) got money to buy more. Never true [facility] Start: 11-11-2024 Sex Male (finding) [facility] Medical Equipment Procedure Code Equipment Code [...] Appendectomy, laparoscopic Plant polysaccharide haemostatic agent, bioabsorbable ([id number] FDA Start: 09-24-2021 Appendectomy, laparoscopic 45mm Standard [...] Assessment Result Facility 09-30-2024 Functional status Chair [facility] Work Phone: 11-09-2021 Functional status Activity Abili ty With Assist of 1 [facility] Work Phone: 11-02-2021 Functional status Ambulates [facility] Work Phone: 10-25-2021 Functional status Tolerates Activity Well [facility] Work Phone: 10-22-2021 Functional status Chair [facility] Work Phone: Mental Status Date Assessment Result Facility 09-30-2024 Cognitive function Voice/Name [facility] [place] [facility] Work Phone: 07-31-2024 Cognitive function Awake;Alert;A ppropriate;Follow s Commands [facility] Work Phone: 08-14-2022 Cognitive function Level Of Cons ciousness Awake;Appropriate [facility] Work Phone: 08-14-2022 Cognitive function Voice/Name [facility] [place] [facility] Work Phone: 11-09-2021 Cognitive function Voice/Name [facility] [place] [facility] Work Phone: 10-25-2021 Cognitive function Intact [facility] [place] [facility] Work Phone: 10-23-2021 Cognitive function Voice/Name [facility] [place] [facility] Work Phone: 10-21-2021 Cognitive function Appropriate;Cooperativ e [facility] Work Phone: Clinical Notes 06-12-2021 to 04-14-2025 Note Date & Type Note Facility 04-14-2025 Discharge summary [facility] 04-14-2025 Radiology Diagnostic study note [facility] Imaging Services [address] [place], [place] [address] Lumbar Spine 2 or 3 Views MR#: [id number] Acct: [id number] Name: OLGA MARTIN Rep #: [id number] : 1960 M 64 From: [place] MD PCP: Dr. Zoraida Marino MD Status: REG ER Study:Lumbar Spine 2 or 3 Views Date of Exam: 04/14/25 Exam# [id number] Ordering Dr: Ada Neal MD PROCEDURE: LUMBAR [...] thoracolumbar wedge compression fracture deformities. Reading Location: [facility] CC: Dr. Zoraida Marino MD; Dr. 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: Signed [facility] 04-14-2025 Discharge summary Note Date/Time April 14, 2025 9:10pm [facility] Medical Records Department [address] [place] [address] Emergency Department Summary 04/14/25 MR#: [id number] Acct: [id number] Name: OLGA MARTIN Rep #:[id number] : [id number] 64 From: Franklin Neal MD [...] similar symptoms: Yes Recent Illness/Hospitalization: No PFSH [facility] Medical History Fracture, intertrochanteric, right femur Cellulitis [...] % (Auto) 61.0 Lymph % (Auto) 26.8 Kings % (Auto) 10.0 Eos % (Auto) 1.0 [...] thoracolumbar wedge compression fracture deformities. Reading Location: [facility] Treatment and Re-Evaluation :: Patient and were [...] Care Provider] - As Needed Print Language: Hebrew Disposition Disposition: Home, Self Care What to do if you have Problems For any increased pain, shortness of breath, bleeding, nausea or vomiting, chestpain, or any unexpected problems, contact your Primary Care Provider. Call [facility] ([phone]) or report to the closest Emergency Room. Call 911 if necessary. 04/14/252109 <Electronically signed by Franklin Neal MD> Cosigner Signature (if applicable): CC: Dr. Zoradia Marino MD ~ Signed [facility] Work Phone: 1(396) 869-231102-28-2025 [facility]02-25-2025 [facility]01-14-2025 Evaluation note* Diagnosis Onset Date Resolution Status [...] arch 2024 7:54am Essential hypertension noneactive Ma [facility] 2024 7:54am Hospital discharge follow-up noneact aby October 24, 2024 7:54am [facility] Work Phone: 1(738) 334-818510-30-2024 Instructions* Patient Instructions* Evan Walden MD - [...] try to help nausea. [facility] NoteHNO ID: [id number] Author: EVAN WALDEN MD Service: ? Author [...] and tongue tremors. (more content not included)... [facility]10-30-2024 History of Present illness Narrative* Evan [...] will consider seeing 's psychiatrist. Elidia Gamboa HAND MODEL 05/30/21 and 07/11/21: Ordered MRI C-spine but [...] this is more likely degenerative signal than technical sales representative of discitis. I see no sign [...] regarding the above issues. Evan Walden MD [facility] Neurology documented in [facility] History of Present illness Narrative* Sabrina Acosta [...] 24, 2022 9:37 AM documented in [facility] History of Present illness Narrative* Nisa Hilario APRN.HAND MODEL - 01/09/2022 10:59 AM EDT SUBJECTIVE: Olga Martin presents to [facility] Pain Management Department for a follow [...] frustrated. Patient reports he was admitted to [facility] for appendicitis with perforation in Sep 2021, he developed a wound infection and was dealing with that for several months. This caused a delay in follow up visits He struggles with transportation issues and lives in [place]. Patient has a history of spinal fracture [...] suspiciousactivity was identified. 01/09/2022 by Nisa Hilario APRN.HAND MODEL Narcotic Agreement reviewed and signed?: N/A on [...] which included preparing to see the patient, [id number] patient care, completing clinical documentation, performing a medically appropriate examination and ordering medications, tests, or procedures. The above plan and management options were discussed at length with patient. Patient is in agreement with the above and verbalized understanding. Nisa Hilario APRN, CNP January 09, 2022 documented in [facility] Miscellaneous Notes* Telephone Encounter - Saba Ny RN - 01/03/2022 2:51 PM EDT Results sent via [employer]. at this time * Telephone Encounter - [...] upper extremity radicular symptom documented [facility] Nurse Note* Josiane Goff RN - 01/02/2022 [...] 2022 TIME: 12:26 PM documented in this encounter[facility] Miscellaneous Notes* Telephone Encounter - Kera Worrell [...] at the Continuity of Care document from [facility] on 11/04/21 there was an X- [...] APRN.CNS - 11/12/2021 3:08 PM EDT Check [facility] records to see if this was addressed. If severe symptoms presently then recommend ER visit to evaluate and treat * Telephone Encounter - Felicia Walter LPN - 11/12/2021 2:20 PM EDT Moriah from [facility] Home Health OT calling she was at patient home to do OT eval one time visit. Patient was having so much lumbar area back pain rated at 10 out of a 10, could hardly get out out of bed. .Patient had told her he had fallen in bathroom while he was in the hospital. Patient said he has toget a machine silver stripper on his back pain before he can do anything. She is not aware of him taking any medications for his back pain. documented in [facility] encounter[facility] History of Present illness Narrative* Kera Worrell LPN - 11/12/2021 2:16 PM EDT Message left again for return call to complete TCM note and arrange hospital follow up. * Kera Worrell LPN - 11/11/2021 1:43 PM EDT Message left for pt to return call to a nurse to complete TCM note and arrange hospital follow up with pcpc's GENERAL SURGEON. documented in this encounter[facility] Miscellaneous Notes* Telephone Encounter - Lita Esquivel [...] - 11/06/2021 12:43 PM EDT Ruthy from [facility] Home Health calling received orders for assisted, PT/OT. Patient is discharging from TCU on 11/09 he had appe with preformation and abscess surgery done by Dr Taveras. Asking if PCP would follow patient and sign orders? Please advise [facility] History of Present illness Narrative* Kamilla Banerjee [...] 12, 2021 10:31 AM documented [facility] Nurse Note* Miranda Ramos RN - 06/12/2021 10:00 AM EST Message left on Voicemail to arrive @ 1040 & have laborer driver home for MRI tomorrow. Nestor Ramos RN [facility]-10-[facility] Nurse Note* Miranda Ramos RN - 06/12/2021 10:00 AM EST Message left on Voicemail to arrive @ 1040 & have laborer driver home for MRI tomorrow. Nestor Ramos RN [facility]* Diagnosis Onset Date Resolution Status Intra-abdominal abscess acut e Postoperative wound infection acute Dehydration resolved Diverticulum of small intestine resolved Debility acute Essential tremor acute Intra-abdominal abscess acut e Pancreatitis acute Postoperative wound infection acute Chronic low back pain chroni c Hypertension chronic [facility] Work Phone: Evaluation note* Diagnosis Spinal stenosis of cervical region Spinal stenosis in cervical region [facility]* Diagnosis Spinal stenosis of cervical region- Primary Spinal stenosis in cervical region [facility]* Diagnosis Abnormal involuntary movement- Primary Abnormal involuntary movements Spinal stenosis of cervical region Spinal stenosis in cervical region Cervicalgia documented [facility]* Diagnosis Onset Date Resolution Status Dehydration [...] acute Tremor acute Chronic lower back pain health safety instructor mack Establishing care with new doctor, encounter for noneactive Essential hypertension nonea [facility] Work Phone: Evaluation note* Diagnosis Onset Date Resolution Status Carpal tunnel syndrome, right acute Cauda equina syndrome chroni c Cerebrovascular small vessel disease chronic Essential tremor chronic Foot drop, bilateral chronic Rubral tremor chronic Carpal tunnel syndrome, right acute Cauda equina syndrome chroni c Cerebrovascular small vessel disease chronic Essential tremor chronic Foot drop, bilateral chronic Rubral tremor chronic [facility] Work Phone: Evaluation note* Diagnosis Onset Date Resolution Status Essential tremor chronic Rubral tremor chronic [facility] Work Phone: Evaluation note* Diagnosis Onset Date Resolution Status Rubral tremor chronic PTSD (post-traumatic stress disorder) acute Tremor acute Chronic lower back pain health safety instructor mack Essential hypertension nonea paive [facility] Work Phone: Evaluation note* Diagnosis Onset Date Resolution Status PTSD (post-traumatic stress disorder) acute Tremor acute Chronic lower back pain health safety instructor mack Essential hypertension nonea ctive Tremor acute Severe obstructive sleep apnea noneactive Monaco's cerebellar degeneration acute MADDIE (obstructive sleep apnea) acute [facility] Work Phone: Evaluation note* Diagnosis Chronic right shoulder pain Pain in joint, shoulder region documented in this encounter [facility] note* Diagnosis Parkinson's disease without dyskinesia or fluctuating manifestations (HCC)- Primary Anxiety and depression Dysthymic disorder Insomnia, unspecified type documented in this encounter [facility] noteNo assessment information availableWMercy [facility] Work Phone: Hospital Discharge instructionsWMer[facility] Work Phone: Reason for referral (narrative)* Diagnostic Procedure Only (Routine) - Closed Specialty Diagnoses / Procedures Referred By Contac t Referred To Contact XR IMAGING Diagnoses Chronic right shoulder pain Procedures XR SHOULDER GENERAL 3V OR MORE AP/TRUE AP/OTHER RT X-RAY SHOULDER COMPLET MIN 2 VIEWS Elidia Gamboa APRN.CNP [address] [phone] Xr Imaging [facility] Referral ID Status Reason Start Date Expiration Date V isits Requested Visits Authorized Closed Auto-Generate d Referral 05/30/2021 06/29/2022 1 1 [facility] for referral (narrative)No reason for referral information availableWMercy Health [facility] Work Phone: Reason for visit Narrative* Diagnostic Procedure Only (Routine) - Closed Specialty Diagnoses / Procedures Referred By Contac t Referred To Contact XR IMAGING Diagnoses Chronic right shoulder pain Procedures XR SHOULDER GENERAL 3V OR MORE AP/TRUE AP/OTHER RT X-RAY SHOULDER COMPLET MIN 2 VIEWS Elidia Gamboa APRN.CNP [address] [phone] Xr Imaging [facility] Referral ID Status Reason Start Date Expiration Date V isits Requested Visits Authorized [id number] Closed Auto-Generate d Referral 05/30/2021 06/29/2022 1 1 [facility] Chief Complaint and Reason for Visit Chief Complaint APPENDICITIS WITH ND CROPERFORATION ACUTE APPENDICITIS ACUTE APPENDICITIS ACUTE APPENDICITIS [...] back pain Hypertension Chief Complaint APPENDICITIS WITH ND CROPERFORATION ACUTE APPENDICITIS ACUTE APPENDICITIS ACUTE APPENDICITIS [...] low grade temp WOUND CHECK WOUND CHECK GENERAL SURGEON, EST. CARE, PT NEEDS NPP TREMOR Reason [...] LAB WORK October 10, 2024 6:4 0am LONG-TERM DISCHARGE October 24 7:54am RT LOWER LEG [...] 26, 2024 7:17pm PTSD (post-traumatic stress disorder) [facility] 2024 7:54am Uvular swelling October 24, 2024 [...] No October 24, 2021 11:49am Power of Bricklayer'S Assistant Yes October 24 11:49am Advance Directive Response Recorded Date/ Time Name of Medical Power of Bricklayer'S Assistant Briana Martin , October 24, 2021 11:49am Advance Directives No November 12 10:38am Living Will No November 13, 2021 6:29am Power of Bricklayer'S Assistant No November 13 6:29am Advance Directive Response Recorded Date/ Time Advance Directives No February 25 2:05pm Living Will No August 13 11:17am Power of Bricklayer'S Assistant No August 13, 2022 11:17am Advance Directive Response Recorded Date/ Time Advance Directives No March 12, 2023 7:16am Living Will No March 12 7:16am Power of Bricklayer'S Assistant No March 12 7:16am Advance Directive Response Recorded Date/ Time Advance Directives No March 12, 2023 8:16am Living Will No March 12 8:16am Power of Bricklayer'S Assistant No March 12 023 8:16am Advance Directive Response Recorded Date/ Time Living Will No July 31 11:20am Do you have a Healthcare Power of Bricklayer'S Assistant? No July 31, 2024 11:20am Living Will No September 26 9:47pm Do you have a Healthcare Power of Bricklayer'S Assistant? No September 26, 2024 9:47pm Advance Directives No March 12, 2023 8:16am Advance Directive Response Recorded Date/ Time Do you have a Healthcare Power of Bricklayer'S Assistant? Yes April 14, 2025 6:36pm Advance Directives No March 12, 2023 8:16am Summary Purpose Reason for Referral Specialty Diagnoses / Procedures Referred By Contac t Referred To Contact MR IMAGING Diagnoses Spinal stenosis of cervical region Procedures MRI CERVICAL SPINE WO IVCON MRI SPINAL CANAL CERVICAL W/O CONTRAST MATRL Kristopher Corbin MD [address] [place] [address] Mr Imaging Referral ID Status Reason Start Date Expiration Date V isits Requested Visits Authorized [id number] Closed Auto-Generate d Referral 08/26/2021 09/25/2022 1 1 Specialty Diagnoses / Procedures Referred By Vijaya t Referred To Contact Diagnoses Abnormal involuntary movement Procedures CONSULT TO FUNCTIONAL MOVEMENT DISORDERS (FMD) OFFICE/OUTPATIENT [facility] 60-74 MINUTES Nisa Hilario, HYDRATOR.HAND MODEL [address] [place] [address] Referral ID Status Reason Start Date Expiration Date Visits Requested Visits Authorized [id number] Authorized PCP Requested Referral 01/09/2022 01/09/2023 1 [...] or prosecute any alcohol or drug abuse patient.[facility] the event this information is protected by the Federal Confidentiality of Alcohol and Drug Abuse Patient Records regulations: The Federal rules restrict any use of the information to criminally investigate or prosecute any alcohol or drug abuse patient.[facility] the event this information is protected by the Federal Confidentiality of Alcohol and Drug Abuse Patient Records regulations: The Federal rules restrict any use of the information to criminally investigate or prosecute any alcohol or drug abuse patient.[facility] the event this information is protected by the Federal Confidentiality of Alcohol and Drug Abuse Patient Records regulations: The Federal rules restrict any use of the information to criminally investigate or prosecute any alcohol or drug abuse patient.[facility] the event this information is protected by the Federal Confidentiality of Alcohol and Drug Abuse Patient Records regulations: The Federal rules restrict any use of the information to criminally investigate or prosecute any alcohol or drug abuse patient.[facility] the event this information is protected by the Federal Confidentiality of Alcohol and Drug Abuse Patient Records regulations: The Federal rules restrict any use of the information to criminally investigate or prosecute any alcohol or drug abuse patient.[facility] the event this information is protected by the Federal Confidentiality of Alcohol and Drug Abuse Patient Records regulations: The Federal rules restrict any use of the information to criminally investigate or prosecute any alcohol or drug abuse patient.[facility] the event this information is protected by the Federal Confidentiality of Alcohol and Drug Abuse Patient Records regulations: The Federal rules restrict any use of the information to criminally investigate or prosecute any alcohol or drug abuse patient.[facility] the event this information is protected by the Federal Confidentiality of Alcohol and Drug Abuse Patient Records regulations: The Federal rules restrict any use of the information to criminally investigate or prosecute any alcohol or drug abuse patient.[facility] the event this information is protected by the Federal Confidentiality of Alcohol and Drug Abuse Patient Records regulations: The Federal rules restrict any use of the information to criminally investigate or prosecute any alcohol or drug abuse patient.[facility] the event this information is protected by the Federal Confidentiality of Alcohol and Drug Abuse Patient Records regulations: The Federal rules restrict any use of the information to criminally investigate or prosecute any alcohol or drug abuse patient.[facility] the event this information is protected by the Federal Confidentiality of Alcohol and Drug Abuse Patient Records regulations: The Federal rules restrict any use of the information to criminally investigate or prosecute any alcohol or drug abuse patient.[facility] Reason for Visit (unrecogniz ed section and [...] W/O CONTRAST Kristopher Reaves MD [address] [facility] [place] [address] Mr Imaging Referral ID Status Reason Start Date Expiration Date V isits Requested Visits Authorized [id number] Closed Auto-Generate d Referral 08/26/2021 09/25/2022 1 1 Reason Comments Results MRI Cervical Spine Reason Comments Results - Mri Reason Onset Date Comments Population Health Navigation Outreach 02/24/2022 [facility] Reason Comments New Patient Having hand tremors and involuntary tongue movements. Care Teams (unrecognized sec tion and content) Athletic Director Relationship Specialty Start Date End Date Linda Dominguez MD [address] [place] [address] PCP - General Internal Medicine 10/20/13 Athletic Director Relationship Specialty Start Date End Date Linda Dominguez MD [address] [place] [address] PCP - General Internal Medicine 10/20/13 Athletic Director Relationship Specialty Start Date End Date Linda Dominguez MD [address] [place] [address] PCP - General Internal Medicine 10/20/13 Athletic Director Relationship Specialty Start Date End Date Linda Dominguez MD [address] [place] [address] PCP - General Internal Medicine 10/20/13 Athletic Director Relationship Specialty Start Date End Date Linda Dominguez MD [address] [place] [address] PCP - General Internal Medicine 10/20/13 Athletic Director Relationship Specialty Start Date End Date Linda Dominguez MD [address] [facility] [place] [address] PCP - General Internal Medicine 10/20/13 Athletic Director Relationship Specialty Start Date End Date Linda Dominguez MD [address] [facility] [place] [address] PCP - General Internal Medicine 10/20/13 Athletic Director Relationship Specialty Start Date End Date Linda Dominguez MD [address] [facility] [place] [address] PCP - General Internal Medicine 10/20/13 Athletic Director Relationship Specialty Start Date End Date Maci Marino MD [address] [place] [id number] PCP - General Internal Medicine 02/24/22 Team [...] Provider, Referri ng Provider Active Glenis Suarez GENERAL SURGEON, GENERAL SURGEON-C Attending Provider Active Team Status: Inactive Member Role Status Dates Dr. Zoraida Marino MD Primary Care Provider, Attendi ng Provider Active Team Status: Inactive Member Role Status Dates Dr. Zoraida Marino MD Primary Care Provider Active Glenis Suarez GENERAL SURGEON, GENERAL SURGEON-C Attending Provider Active Athletic Director Relationship Specialty Start Date End Date Linda Dominguez MD [address] [place] [address] PCP - General Internal Medicine 10/20/13 02/23/22 Athletic Director Relationship Specialty Start Date End Date Zoraida [...] Active Member Role Status Dates Dr. Zoraida aMrino MD Primary Care Provider Active Start: September [...] Active St art: September 28, 2024 Dr. Willaim Henry , Other Provider Active Start: September [...] section and content) DATE CREATED AUTHOR 01/03/2022 [facility] DATE CREATED AUTHOR AUTHOR'S ORGANIZ ATION 06/03/2024 [facility] DATE CREATED AUTHOR AUTHOR'S ORGANIZ ATION 04/28/2025 [facility] FOR RECORDS PERTAINING TO PATIENTS WHO ARE [...] BE BASED ON THE PRIMARY CLINICAL RECORDS. [facility] [employer] [facility]. provides no warranty or guarantee of the accuracy or completeness of information in this document.
--- OUTSIDE RECORDS SUMMARY | 2025-04-28 13:57 | XMS RPT_ITS | CCD ---
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 Mickey Messina Attending Provider [phone] Dr. Jonel Flores Chi Admit Provider Dr. [...] Provider Dr. Todd Vieira Attending Provider Erick LATHE WINDER, LATHE WINDER-C Glenis Attending Provider Dr. Zoraida Marino Primary Care Provider Dr. Zoraida Marino Referring Provider [phone] Dr. Todd Vieira Attending Provider Dr. Zoraida Marino Attending Provider Erick LATHE WINDER, LATHE WINDER-C Glenis Attending Provider Linda Dominguez MD Primary [...] Provider Dr. Stephane Flores MD Other Provider [phone] Rudolph MITCHELL, Dr. Cole Other Provider Juarez MITCHELL, Dr. Silva Other Provider Jess MITCHELL, Dr. Otto Other [facility] nat[facility] Ames MD, Dr. Mora Other Provider Honorio MITCHELL, Dr. Pardo Other Provider Donaldo MITCHELL, Dr. East Other Provider [phone] Heri MITCHELL, Dr. Cifuentes Other Provider Conrado GRULLON, Dr. West Other Provider Opal MITCHELL, Dr. Cannon Other Provider Jf MITCHELL, Dr. Theodore Other Provider [phone] Dr. William Henry DO Other Provider Triston MITCHELL, Dr. Mims Other Provider [phone] Daniel MITCHELL, Dr. Longoria Other Provider [phone] Lawrence GRULLON, Dr. Claudio Other Provider Ez MITCHELL, Dr. Gillespie Attending Provider Unavaila ble Maddison Calix Attending Provider [phone] Maddison Calix Referring Provider [phone] Dr. Zoraida Marino MD Primary Care Provider Dr. Franklin Neal MD Emergency Provider [phone] Zoraida Marino Primary Care Unavailable Franklin Neal [...] Sanchez Consulting Unavailable Tricia Taylor Attending Unavailable [place], Zoraida Primary Care Unavailable Ned, Zoraida Referring Unavailable [place], Zoraida Attending Unavailable Ned, Zoraida Primary Care Unavailable Maddison Saini Referring Unavailable Maddison Saini Attending Unavailable Ned, Zoraida Primary Care Unavailable Gudla Verna ARORA Attending Unavailable Gudla Arline ARORAthi Attending Unavailable Ned, Zoraida Primary Care Unavailable [place], Zoraida Primary Care Unavailable Erick LATHE WINDER, Glenis Referring Unavailable Erick LATHE WINDER, Glenis Attending Unavailable Shanon Bravo Attending Unavailable Ned, Zoraida Primary Care Unavailable Jean Claude Luther Consulting Unavailable Jean Claude Luther Admitting Unavailable Tricia Taylor Consulting Unavailable Elijah Mac Consulting Unavailable Ned, Zoraida Primary Care Unavailable Baljit Fleming Attending Unavailable Ned, Zoraida Primary Care Unavailable Selwyn Ramsey Referring Unavailable Selwyn Ramsey Attending Unavailable [place], Zoraida Primary Care Unavailable Selwyn Ramsey Referring Unavailable Selwyn Ramsey Attending Unavailable [place], Zoraida Referring Unavailable [place], Zoraida Attending Unavailable Ned, Zoraida Primary Care Unavailable Ned, Zoraida Referring Unavailable [place], Zoraida Attending Unavailable [place], Zoraida Primary Care Unavailable Allergies Allergy Classification Reported Allergen(s) Allergy Type Date of Onset Reaction(s) Facility (20 sources) Acetaminophen; Translations: [ACETAMINOPHEN] Drug Allergy 4 GI Upset, Other: See Comments [facility] (13 sources) DULoxetine; Translations: [DULOXETINE] Drug Allergy 1 Other: See Comments [facility] Work Phone: (20 sources) fentaNYL; Translations: [FENTANYL] Drug Allergy 4 GI Upset [facility] (13 sources) gabapentin; Translations: [GABAPENTIN] Drug Allergy 4 Vomiting [facility] Work Phone: (13 sources) Methocarbamol; Translations: [METHOCARBAMOL] Drug Allergy 4 Vomiting [facility] Work Phone: (20 sources) Metoclopramide; Translations: [METOCLOPRAMIDE HCL] Drug Allergy 4 Mental Status Change [facility] (13 sources) traMADol; Translations: [TRAMADOL] Drug Allergy 2 [facility] Work Phone: (10 sources) nabumetone Drug Allergy 2 Nausea/Vom/Diar cabrera [facility] (8 sources) hydrOXYzine Drug Allergy 2 Vomiting [facility] (8 sources) Niacin Drug Allergy 2 Vomiting [facility] (2 sources) Carbidopa Drug Allergy 5 Abd cramps/diarrhea [facility] (2 sources) Levodopa Drug Allergy 5 Abd cramps/diarrhea [facility] (1 source) Acetaminophen Drug Allergy 5 [facility] Repository (1 source) Carbidopa Drug Allergy 5 [facility] Repository (1 source) fentaNYL Drug Allergy 5 [facility] Repository (1 source) hydrOXYzine Drug Allergy 5 [facility] Repository (1 source) Levodopa Drug Allergy 5 [facility] Repository (1 source) Metoclopramide Drug Allergy 5 [facility] Repository (1 source) nabumetone Drug Allergy 5 [facility] Repository (1 source) Niacin Drug Allergy 5 [facility] Repository Medications Current Medications Medication Drug [...] 06, 2021 12:00am July 21, 2022 10:52am Mprky-Lorx-Wdzhs-Collag-Mv-M in (Aly (With Collagen)) 7-7-1.5 gram Powder In Packet (10 sources) Start: 11-06-2021 Ygpwc-Fmcu-Zpisd-Collag-Mv-M in (Aly (With Collagen)) 7-7-1.5 gram Powder In Packet Active 1 PACKET PO TWICE DAILY WITH MEALS 60 30 November 06, 2021 8:33pm Start: 11-06-2021 End: 01-23-2022 Entff-Goei-Bliyg-Collag-Mv-M in (Aly (With Collagen)) 7-7-1.5 gram Powder In Packet Discontinued 1 NMA PO TWICE DAILY WITH MEALS 60 30 0 November 06, 2021 12:00am January 23, 2022 10:38am Start: 11-06-2021 End: 01-23-2022 Cmrlv-Avqf-Pinsh-Collag-Mv-M in (Aly (With Collagen)) 7-7-1.5 gram Powder In Packet Discontinued 1 NMA PO TWICE DAILY WITH MEALS 60 30 November 06, 2021 12:00am January 23, 2022 10:38am Start: 11-06-2021 End: 01-23-2022 Xuypb-Owkf-Wihgn-Collag-Mv-M in (Aly (With Collagen)) 7-7-1.5 gram Powder In Packet Discontinued 1 PACKET PO TWICE DAILY WITH MEALS 60 30 November 05, 2021 11:00pm January 23, 2022 9:38am Start: 11-06-2021 End: 01-23-2022 Ciloe-Astr-Qcgnc-Collag-Mv-M in (Aly (With Collagen)) 7-7-1.5 gram Powder [...] Comment on above: Take 1 capsule by [facility] once daily. losartan potassium 50 mg [...] 10:38am docusate sodium 50 mg / sennosides, [facility] living 8.6 mg oral tablet (2 sources) Start: [...] on above: Take 1 capsule by mo [facility] daily at bedtime. predniSONE 10 [...] 06/01/2024 Discontinued take 1 capsule by mo [facility] once daily propranolol HCl (PROPRANOLOL [...] iton 04-25-2025 Internal Medicine Office Visit Normal [facility] Low Dose CT Lung Screeningon 04-21-[address] Lung Screening Normal [facility] Absolute lymphocyte countOrd ered By: Franklin Neal on 04-14-2025 Lymphocytes Auto (Unsp spec) [#/Vol] 1.87 10*3/uL 0.83-4.51 [facility] Absolute neutrophil countOrd ered By: Franklin Neal on 04-14-2025 Neutrophils (Bld) [#/Vol] 4.3 10*3/uL 2.0-7.7 [facility] Anion gap in Serum or Plasma Ordered By: Franklin Neal on 04-14-2025 Anion gap [Moles/Vol] 11 mmol/L 5-15 [facility] Automated lymphocyte count a s percentage of total leukocytesOrdered By: Franklin Neal on 04-14-2025 Lymphocytes/100 WBC Auto (Unsp spec) 26.8 % 19-41 [facility] BUN/creatinine ratioOrdered By: Franklin Neal on 04-14-2025 Urea nitrogen/Creatinine [Mass ratio] 30.4 mg/mg High 10-20 [facility] Basophil percentageOrdered B y: Franklin Neal on 04-14-2025 Basophils/100 WBC (Bld) 0.9 % 0-1 [facility] Bilirubin, totalOrdered By: Franklin Neal on 04-14-2025 Bilirubin [Mass/Vol] 0.39 mg/dL 0.00-1.30 [facility] CBC W/Diff, Automatedon 04-03-2024 Absolute Lymph 1.87 X10 3/uL Normal 0.83-4.51 [facility] Comment on above: Performed By: #### L 500.4050, L100.0100 ####[facility] [address] [place], [address] Absolute Neut 4.3 X10 3/uL Normal 2.0-7.7 [facility] Comment on above: Performed By: #### L 500.4050, L100.0100 ####[facility] [address] [place], [address] Basophils/100 WBC (Bld) 0.9 % Normal 0-1 [facility] Comment on above: Performed By: #### L 500.4050, L100.0100 ####[facility] [address] [place], [address] Eosinophils/100 WBC (Bld) 1.0 % Normal 0-5 [facility] Comment on above: Performed By: #### L 500.4050, L100.0100 ####[facility] [address] [place], [address] Erythrocyte distribution width (RBC) [Ratio] 12.4 % Normal 11.6-14.6 [facility] Comment on above: Performed By: #### L 500.4050, L100.0100 ####[facility] [address] [place], [address] Hematocrit (Bld) [Volume fraction] 38.7 % Low 40-54 [facility] Comment on above: Performed By: #### L 500.4050, L100.0100 ####[facility] [address] [place], [address] Hemoglobin (Bld) [Mass/Vol] 13.4 g/dL Normal 13.0-16.5 [facility] Comment on above: Performed By: #### L 500.4050, L100.0100 ####[facility] [address] [place], [address] IG% 0.300 Normal 0.0-0.9 [facility] Comment on above: Result Comment: IG% - Immature Granulocytes (promyelocytes, myelocytes andmetamyelocytes) > 1% indicates that a LEFT SHIFT is Present. Performed By: #### L 500.4050, L100.0100 ####[facility] [address] [place], [address] Lymphocytes/100 WBC (Bld) 26.8 % Normal 19-41 [facility] Comment on above: Performed By: #### L 500.4050, L100.0100 ####[facility] [address] [place], [address] MCH (RBC) [Entitic mass] 32.4 pg High 27.0-32.0 [facility] Comment on above: Performed By: #### L 500.4050, L100.0100 ####[facility] [address] [place], [address] MCHC (RBC) [Mass/Vol] 34.6 g/dL Normal 32-36 [facility] Comment on above: Performed By: #### L 500.4050, L100.0100 ####[facility] [address] [place], [address] MCV (RBC) [Entitic vol] 93.7 fL Normal 80-94 [facility] Comment on above: Performed By: #### L 500.4050, L100.0100 ####[facility] [address] [place], [address] Monocytes/100 WBC (Bld) 10.0 % Normal 0-10 [facility] Comment on above: Performed By: #### L 500.4050, L100.0100 ####[facility] [address] [place], [address] Neutrophils/100 WBC (Bld) 61.0 % Normal 47-70 [facility] Comment on above: Performed By: #### L 500.4050, L100.0100 ####[facility] [address] [place], [address] Nucleated RBC (Bld) [#/Vol] 0 10*3/uL Normal 0-5 [facility] Comment on above: Performed By: #### L 500.4050, L100.0100 ####[facility] [address] [place], [address] Platelet mean volume (Bld) [Entitic vol] 10.1 fL Normal 6.2-12.0 [facility] Comment on above: Performed By: #### L 500.4050, L100.0100 ####[facility] [address] [place], [address] Platelets (Bld) [#/Vol] 208 10*3/uL Normal 150-450 [facility] Comment on above: Performed By: #### L 500.4050, L100.0100 ####[facility] [address] [place], [address] RBC (Bld) [#/Vol] 4.13 10*6/uL Low 4.6-6.2 [facility] Comment on above: Performed By: #### L 500.4050, L100.0100 ####[facility] [address] [place], [address] RDW SD 43.1 fl Normal 35.1-43.9 [facility] Comment on above: Performed By: #### L 500.4050, L100.0100 ####[facility] [address] [place], [address] WBC (Bld) [#/Vol] 7.0 10*3/uL Normal 4.4-11.0 [facility] Comment on above: Performed By: #### L 500.4050, L100.0100 ####[facility] [address] [place], [address] Carbon dioxide, total [Moles /volume] in Central venous bloodOrdered By: Franklin Neal on 04-14-2025 CO2 [Moles/Vol] 23.3 mmol/L 21.0-32.0 [facility] Chloride assayOrdered By: Ug o Neal on 04-14-2025 Chloride [Moles/Vol] 104 mmol/L 98-108 [facility] Comprehensive Metabolic Prof ilon 04-14-2025 Albumin [Mass/Vol] 4.2 g/dL Normal 3.4-4.8 [facility] Comment on above: Performed By: #### L 500.4050, L100.0100 ####[facility] [address] [place], [address] Albumin/Globulin [Mass ratio] 1.5 {ratio} Normal 0.9-2.4 [facility] Comment on above: Performed By: #### L 500.4050, L100.0100 ####[facility] [address] [place], [address] ALK PHOS 71 U/L Normal 40-129 [facility] Comment on above: Performed By: #### L 500.4050, L100.0100 ####[facility] [address] [place], [address] ALT [Catalytic activity/Vol] 10 U/L Normal <=46 [facility] Comment on above: Performed By: #### L 500.4050, L100.0100 ####[facility] [address] [place], [address] AST [Catalytic activity/Vol] 17 U/L Normal <=37 [facility] Comment on above: Performed By: #### L 500.4050, L100.0100 ####[facility] [address] [place], [address] Bilirubin [Mass/Vol] 0.39 mg/dL Normal 0.00-1.30 [facility] Comment on above: Performed By: #### L 500.4050, L100.0100 ####[facility] [address] [place], [address] BUN/CRE 30.4 RATIO High 10-20 [facility] Comment on above: Performed By: #### L 500.4050, L100.0100 ####[facility] [address] [place], [address] Calcium [Mass/Vol] 9.1 mg/dL Normal 7.6-11.0 [facility] Comment on above: Performed By: #### L 500.4050, L100.0100 ####[facility] [address] [place], [address] Chloride [Moles/Vol] 104 mmol/L Normal 98-108 [facility] Comment on above: Performed By: #### L 500.4050, L100.0100 ####[facility] [address] [place], [address] CO2 [Moles/Vol] 23.3 mmol/L Normal 21.0-32.0 [facility] Comment on above: Performed By: #### L 500.4050, L100.0100 ####[facility] [address] [place], [address] Creatinine [Mass/Vol] 0.61 mg/dL Low 0.70-1.20 [facility] Comment on above: Performed By: #### L 500.4050, L100.0100 ####[facility] [address] [place], [address] GAP 11 Normal 5-15 [facility] Comment on above: Performed By: #### L 500.4050, L100.0100 ####[facility] [address] [place], [address] GFR/1.73 sq M.predicted among non-blacks MDRD (S/P/Bld) [Vol rate/Area] 107 mL/min/{1.73_m2} Normal >60 [facility] Comment on above: Result Comment: mL/m in/1.73m2 CKD-EPI Creatinine Equation (2020) Performed By: #### L 500.4050, L100.0100 ####[facility] [address] [place], [address] Globulin (S) [Mass/Vol] 2.8 g/dL Normal 2.2-4.2 [facility] Comment on above: Performed By: #### L 500.4050, L100.0100 ####[facility] [address] [place], [address] Glucose [Mass/Vol] 125 mg/dL High 70-99 [facility] Comment on above: Performed By: #### L 500.4050, L100.0100 ####[facility] [address] [place], [address] Potassium [Moles/Vol] 4.3 mmol/L Normal 3.3-5.1 [facility] Comment on above: Performed By: #### L 500.4050, L100.0100 ####[facility] [address] [place], [address] Sodium [Moles/Vol] 138 mmol/L Normal 133-145 [facility] Comment on above: Performed By: #### L 500.4050, L100.0100 ####[facility] [address] [place], [address] T PROT 7.0 g/dL Normal 5.9-8.4 [facility] Comment on above: Performed By: #### L 500.4050, L100.0100 ####[facility] [address] [place], [address] Urea nitrogen [Mass/Vol] 18 mg/dL Normal 4-19 [facility] Comment on above: Performed By: #### L 500.4050, L100.0100 ####[facility] [address] [place], [address] Emergency Department Summary on 04-14-2025 Emergency Department Summary Normal [facility] Eosinophil percentageOrdered By: Franklinviolet Neal on 04-14-2025 Eosinophils/100 WBC (Bld) 1.0 % 0-5 [facility] Erythrocyte distribution wid th ratioOrdered By: Franklinviolet Neal on 04-14-2025 Erythrocyte distribution width (RBC) [Ratio] 12.4 % 11.6-14.6 [facility] Erythrocyte distribution wid th standard deviationOrdered By: Franklinviolet Neal on 04-14-2025 Erythrocyte distribution width (RBC) [Ratio] 43.1 fl 35.1-43.9 [facility] Glomerular filtration rate ( GFR) estimation/1.73 sq m using serum, plasma, or whole bOrdered By: Franklin Neal on 04-14-2025 GFR/1.73 sq M.predicted among non-blacks MDRD (S/P/Bld) [Vol rate/Area] 107 mL/min/{1.73_m2} >60 [facility] Comment on above: mL/min/1.73m2 CKD-EP I Creatinine Equation (2020) Hematocrit Auto (Bld) [Volum e fraction]Ordered By: Franklin Neal on 04-14-2025 Hematocrit (Bld) [Volume fraction] 38.7 % Low 40-54 [facility] Hemoglobin measurementOrdere d By: Franklin Neal on 04-14-2025 Hemoglobin (Bld) [Mass/Vol] 13.4 g/dL 13.0-16.5 [facility] Immature granulocytes/100 WB C Auto (Bld)Ordered By: Franklin Neal on 04-14-2025 Immature granulocytes/100 WBC (Bld) 0.300 % 0.0-0.9 [facility] Comment on above: IG% - Immature Granu locytes (promyelocytes, myelocytes and metamyelocytes) > 1% indicates that a LEFT SHIFT is Present. Laboratory - Chemistry and C hemistry - challengeOrdered By: Franklin Neal on 04-14-2025 AST [Catalytic activity/Vol] 17 U/L <38 [facility] Lumbar Spine 2 or 3 Viewson 04-14-2025 Lumbar Spine 2 or 3 Views Normal [facility] MCV (mean corpuscular volume ) determinationOrdered By: Franklin Neal on 04-14-2025 MCV (RBC) [Entitic vol] 93.7 fL 80-94 [facility] Mean corpuscular hemoglobin (MCH) determinationOrdered By: Franklin Neal on 04-14-2025 MCH (RBC) [Entitic mass] 32.4 pg High 27.0-32.0 [facility] Mean corpuscular hemoglobin concentration (MCHC) determinationOrdered By: Franklin Neal on 04-14-2025 MCHC (RBC) [Mass/Vol] 34.6 g/dL 32-36 [facility] Mean platelet volume determi nationOrdered By: Franklin Neal on 04-14-2025 Platelet mean volume (Bld) [Entitic vol] 10.1 fL 6.2-12.0 [facility] Monocyte percentageOrdered B y: Franklin Neal on 04-14-2025 Monocytes/100 WBC (Bld) 10.0 % 0-10 [facility] Neutrophil percentageOrdered By: Franklin Neal on 04-14-2025 Neutrophils/100 WBC (Bld) 61.0 % 47-70 [facility] Nucleated red blood cell per centageOrdered By: Franklin Neal on 04-14-2025 Nucleated RBC/100 WBC (Bld) [Ratio] 0 % 0-5 [facility] Platelet countOrdered By: Ada violet Ángel on 04-14-2025 Platelets (Bld) [#/Vol] 208 10*3/uL 150-450 [facility] Potassium measurement (mass/ volume)Ordered By: Franklin Neal on 04-14-2025 Potassium (Unsp spec) [Mass/Vol] 4.3 mmol/L 3.3-5.1 [facility] RBC Auto (Bld) [#/Vol]Ordere d By: Franklin Neal on 04-14-2025 RBC (Bld) [#/Vol] 4.13 10*6/uL Low 4.6-6.2 [facility] Serum creatinine measurement (mass/volume)Ordered By: Franklin Neal on 04-14-2025 Creatinine [Mass/Vol] 0.61 mg/dL Low 0.70-1.20 [facility] Serum globulin measurementOr dered By: Franklin Neal on 04-14-2025 Globulin (S) [Mass/Vol] 2.8 g/dL 2.2-4.2 [facility] Serum glucose measurement (m ass/volume)Ordered By: Franklin Neal on 04-14-2025 Glucose [Mass/Vol] 125 mg/dL High 70-99 [facility] Serum or plasma alanine valentin otransferase (ALT) measurementOrdered By: Franklin Neal on 04-14-2025 ALT [Catalytic activity/Vol] 10 U/L <47 [facility] Serum or plasma albumin jody urement (mass/volume)Ordered By: Franklin Neal on 04-14-2025 Albumin [Mass/Vol] 4.2 g/dL 3.4-4.8 [facility] Serum or plasma albumin/glob ulin mass ratioOrdered By: Franklinviolet Neal 04-14-2025 Albumin/Globulin [Mass ratio] 1.5 {ratio} 0.9-2.4 [facility] Serum or plasma alkaline skip sphatase measurementOrdered By: Franklinviolet Neal 04-14-2025 ALP [Catalytic activity/Vol] 71 U/L 40-129 [place] [facility] Serum or plasma calcium jody urement (mass/volume)Ordered By: [facility] on 04-14-2025 Calcium [Mass/Vol] 9.1 mg/dL 7.6-11.0 [facility] Serum or plasma urea nitroge n measurement (mass/volume)Ordered By: [facility] on 04-14-2025 Urea nitrogen [Mass/Vol] 18 mg/dL 4-19 [facility] Sodium levelOrdered By: [facility] on 04-14-2025 Sodium [Moles/Vol] 138 mmol/L 133-145 [facility] Total proteinOrdered By: [facility] on 04-14-2025 Protein [Mass/Vol] 7.0 g/dL 5.9-8.4 [facility] White blood cell (WBC) count Ordered By: [facility] on 04-14-2025 WBC (Bld) [#/Vol] 7.0 10*3/uL 4.4-11.0 [facility] Venous Duplex US, Unilateral on 11-09-2024 Venous Duplex US, Unilateral Normal [facility] Venous duplex ultrasound rep ortOrdered By: Wayne Mendoza on 11-09-2024 US Vein [facility] [address] [place] [address] Venous Duplex US, Unilateral 11/09/24 1054 MR#: [id number] Acct: [id number] Name: OLGA MARTIN Rep #:[id number] : 1960 64 From: Wayne Mendoza MD [...] Date Dictated: 11/09/24 1054 Date Transcribed: 11/09/242117 Academic Department Chair: Signed [facility] Other Internal Medicine Office Vis iton 10-23-2024 Internal Medicine Office Visit Normal [facility] Basic Metabolic Profile (BMP )on 10-17-2024 BUN Normal 4-19 [facility] Comment on above: Order Comment: 210 Result Comment: DONT DO LABS, PT GOING HOME TODAY PER NURSE AUDRA @[facility] Performed By: #### L 100.0500, L500.2500 ####[facility] [address] [place], [address] BUN/CRE Normal 10-20 [facility] Comment on above: Order Comment: 210 Result Comment: DONT DO LABS, PT GOING HOME TODAY PER NURSE AUDRA @ Performed By: #### L 100.0500, L500.2500 ####[facility] [address] [place], [address] Calcium Normal 7.6-11.0 [facility] Comment on above: Order Comment: 210 Result Comment: DONT DO LABS, PT GOING HOME TODAY PER NURSE AUDRA @ Performed By: #### L 100.0500, L500.2500 ####[facility] [address] [place], [address] CL Normal 98-108 [facility] Comment on above: Order Comment: 210 Result Comment: DONT DO LABS, PT GOING HOME TODAY PER NURSE AUDRA @ Performed By: #### L 100.0500, L500.2500 ####[facility] [address] [place], [address] CO2 Normal 21.0-32.0 [facility] Comment on above: Order Comment: 210 Result Comment: DONT DO LABS, PT GOING HOME TODAY PER NURSE AUDRA @ Performed By: #### L 100.0500, L500.2500 ####[facility] [address] [place], [address] CREAT,SERUM Normal 0.70-1.20 [facility] Comment on above: Order Comment: 210 Result Comment: DONT DO LABS, PT GOING HOME TODAY PER NURSE AUDRA @ Performed By: #### L 100.0500, L500.2500 ####[facility] [address] [place], [address] eGFR Normal >60 [facility] Comment on above: Order Comment: 210 Result Comment: DONT DO LABS, PT GOING HOME TODAY PER NURSE AUDRA @ Performed By: #### L 100.0500, L500.2500 ####[facility] [address] [place], [address] GAP Normal 5-15 [facility] Comment on above: Order Comment: 210 Result Comment: DONT DO LABS, PT GOING HOME TODAY PER NURSE AUDRA @ Performed By: #### L 100.0500, L500.2500 ####[facility] [address] [place], [address] GLU Normal 70-99 [facility] Comment on above: Order Comment: 210 Result Comment: DONT DO LABS, PT GOING HOME TODAY PER NURSE AUDRA @[facility] Performed By: #### L 100.0500, L500.2500 ####[facility] [address] [place], [address] Potassium Normal 3.3-5.1 [facility] Comment on above: Order Comment: 210 Result Comment: DONT DO LABS, PT GOING HOME TODAY PER NURSE AUDRA @ Performed By: #### L 100.0500, L500.2500 ####[facility] [address] [place], [address] Basic Metabolic Profile (BMP) Normal 133-145 [facility] Comment on above: Order Comment: 210 Result Comment: DONT DO LABS, PT GOING HOME TODAY PER NURSE AUDRA @[address] Performed By: #### L 100.0500, L500.2500 ####[facility] [address] [place], [address] CBC-Complete Blood Cnt No Di ffon 10-17-2024 HCT Normal 40-54 [facility] Comment on above: Order Comment: 210 Result Comment: DONT DO LABS, PT GOING HOME TODAY PER NURSE AUDRA @[address] Performed By: #### L 100.0500, L500.2500 ####[facility] [address] [place], [address] HGB Normal 13.0-16.5 [facility] Comment on above: Order Comment: 210 Result Comment: DONT DO LABS, PT GOING HOME TODAY PER NURSE AUDRA @ Performed By: #### L 100.0500, L500.2500 ####[facility] [address] [place], [address] MCH Normal 27.0-32.0 [facility] Comment on above: Order Comment: 210 Result Comment: DONT DO LABS, PT GOING HOME TODAY PER NURSE AUDRA @ Performed By: #### L 100.0500, L500.2500 ####[facility] [address] [place], [address] MCHC Normal 32-36 [facility] Comment on above: Order Comment: 210 Result Comment: DONT DO LABS, PT GOING HOME TODAY PER NURSE AUDRA @ Performed By: #### L 100.0500, L500.2500 ####[facility] [address] [place], [address] MCV Normal 80-94 [facility] Comment on above: Order Comment: 210 Result Comment: DONT DO LABS, PT GOING HOME TODAY PER NURSE AUDRA @ Performed By: #### L 100.0500, L500.2500 ####[facility] [address] [place], [address] PLT Normal 150-450 [facility] Comment on above: Order Comment: 210 Result Comment: DONT DO LABS, PT GOING HOME TODAY PER NURSE AUDRA @ Performed By: #### L 100.0500, L500.2500 ####[facility] [address] [place], [address] RBC Normal 4.6-6.2 [facility] Comment on above: Order Comment: 210 Result Comment: DONT DO LABS, PT GOING HOME TODAY PER NURSE AUDRA @ Performed By: #### L 100.0500, L500.2500 ####[facility] [address] [place], [address] RDW CV Normal 11.6-14.6 [facility] Comment on above: Order Comment: 210 Result Comment: DONT DO LABS, PT GOING HOME TODAY PER NURSE AUDRA @[facility] Performed By: #### L 100.0500, L500.2500 ####[facility] [address] [place], [address] RDW SD Normal 35.1-43.9 [facility] Comment on above: Order Comment: 210 Result Comment: DONT DO LABS, PT GOING HOME TODAY PER NURSE AUDRA @[facility] Performed By: #### L 100.0500, L500.2500 ####[facility] [address] [place], [address] WBC Normal 4.4-11.0 [facility] Comment on above: Order Comment: 210 Result Comment: DONT DO LABS, PT GOING HOME TODAY PER NURSE AUDRA @[facility] Performed By: #### L 100.0500, L500.2500 ####[facility] [address] [place], [address] Anion gap in Serum or Plasma Ordered By: Verna Hui on 10-10-2024 Anion gap [Moles/Vol] 12 mmol/L 5-15 [facility] BUN/creatinine ratioOrdered By: Verna Hui on 10-10-2024 Urea nitrogen/Creatinine [Mass ratio] 19.0 mg/mg - [facility] Basic Metabolic Profile (BMP )on 10-10-2024 BUN/CRE 19.0 RATIO Normal - [facility] Comment on above: Performed By: #### L 501.5200, L500.2500, L100.0500 ####[facility] [address] [place], [address] Calcium [Mass/Vol] 8.5 mg/dL Normal 7.6-11.0 [facility] Comment on above: Performed By: #### L 501.5200, L500.2500, L100.0500 ####[facility] [address] [place], [address] Chloride [Moles/Vol] 105 mmol/L Normal 98-108 [facility] Comment on above: Performed By: #### L 501.5200, L500.2500, L100.0500 ####[facility] [address] [place], [address] CO2 [Moles/Vol] 21.9 mmol/L Normal 21.0-32.0 [facility] Comment on above: Performed By: #### L 501.5200, L500.2500, L100.0500 ####[facility] [address] [place], [address] Creatinine [Mass/Vol] 0.64 mg/dL Low 0.70-1.20 [facility] Comment on above: Performed By: #### L 501.5200, L500.2500, L100.0500 ####[facility] [address] [place], [address] GAP 12 Normal 5-15 [facility] Comment on above: Performed By: #### L 501.5200, L500.2500, L100.0500 ####[facility] [address] [place], [address] GFR/1.73 sq M.predicted among non-blacks MDRD (S/P/Bld) [Vol rate/Area] 105 mL/min/{1.73_m2} Normal >60 [facility] Comment on above: Result Comment: mL/m in/1.73m2 CKD-EPI Creatinine Equation (2020) Performed By: #### L 501.5200, L500.2500, L100.0500 ####[facility] [address] [place], [address] Glucose [Mass/Vol] 162 mg/dL High 70-99 [facility] Comment on above: Performed By: #### L 501.5200, L500.2500, L100.0500 ####[facility] [address] [place], [address] Potassium [Moles/Vol] 3.9 mmol/L Normal 3.3-5.1 [facility] Comment on above: Performed By: #### L 501.5200, L500.2500, L100.0500 ####[facility] [address] [place], [address] Sodium [Moles/Vol] 139 mmol/L Normal 133-145 [facility] Comment on above: Performed By: #### L 501.5200, L500.2500, L100.0500 ####[facility] [address] [place], [address] Urea nitrogen [Mass/Vol] 12 mg/dL Normal 4-19 [facility] Comment on above: Performed By: #### L 501.5200, L500.2500, L100.0500 ####[facility] [address] [place], [address] CBC-Complete Blood Cnt No Di ffon 10-10-2024 Erythrocyte distribution width (RBC) [Ratio] 12.7 % Normal 11.6-14.6 [facility] Comment on above: Performed By: #### L 501.5200, L500.2500, L100.0500 ####[facility] [address] [place], [address] Hematocrit (Bld) [Volume fraction] 33.1 % Low 40-54 [facility] Comment on above: Performed By: #### L 501.5200, L500.2500, L100.0500 ####[facility] [address] [place], [address] Hemoglobin (Bld) [Mass/Vol] 11.2 g/dL Low 13.0-16.5 [facility] Comment on above: Performed By: #### L 501.5200, L500.2500, L100.0500 ####[facility] [address] [place], [address] MCH (RBC) [Entitic mass] 32.9 pg High 27.0-32.0 [facility] Comment on above: Performed By: #### L 501.5200, L500.2500, L100.0500 ####[facility] [address] [place], [address] MCHC (RBC) [Mass/Vol] 33.8 g/dL Normal 32-36 [facility] Comment on above: Performed By: #### L 501.5200, L500.2500, L100.0500 ####[facility] [address] [place], [address] MCV (RBC) [Entitic vol] 97.4 fL High 80-94 [facility] Comment on above: Performed By: #### L 501.5200, L500.2500, L100.0500 ####[facility] [address] [place], [address] Platelet mean volume (Bld) [Entitic vol] 9.7 fL Normal 6.2-12.0 [facility] Comment on above: Performed By: #### L 501.5200, L500.2500, L100.0500 ####[facility] [address] [place], [address] Platelets (Bld) [#/Vol] 338 10*3/uL Normal 150-450 [facility] Comment on above: Performed By: #### L 501.5200, L500.2500, L100.0500 ####[facility] [address] [place], [address] RBC (Bld) [#/Vol] 3.40 10*6/uL Low 4.6-6.2 [facility] Comment on above: Performed By: #### L 501.5200, L500.2500, L100.0500 ####[facility] [address] [place], [address] RDW SD 45.3 fl High 35.1-43.9 [facility] Comment on above: Performed By: #### L 501.5200, L500.2500, L100.0500 ####[facility] [address] [place], [address] WBC (Bld) [#/Vol] 6.3 10*3/uL Normal 4.4-11.0 [facility] Comment on above: Performed By: #### L 501.5200, L500.2500, L100.0500 ####[facility] [address] [place], [address] Carbon dioxide, total [Moles /volume] in Central venous bloodOrdered By: Verna Hui on 10-10-2024 CO2 [Moles/Vol] 21.9 mmol/L 21.0-32.0 [facility] Chloride assayOrdered By: Emigdio Hui on 10-10-2024 Chloride [Moles/Vol] 105 mmol/L 98-108 [facility] Erythrocyte distribution wid th (RBC) [Ratio]Ordered By: Verna Hui on 10-10-2024 Erythrocyte distribution width (RBC) [Entitic vol] 45.3 fL High 35.1-43.9 [facility] Erythrocyte distribution wid th ratioOrdered By: Verna Hui on 10-10-2024 Erythrocyte distribution width (RBC) [Ratio] 12.7 % 11.6-14.6 [facility] GFR/1.73 sq M.predicted ally g non-blacks MDRD (S/P/Bld) [Vol rate/Area]Ordered By: Verna Hui on 10-10-2024 Estimated GFR (MDRD) Non-Af Amer 105 >60 [facility] Comment on above: mL/min/1.73m2 CKD-EP I Creatinine Equation (2020) Hematocrit Auto (Bld) [Volum e fraction]Ordered By: Verna Hui on 10-10-2024 Hematocrit (Bld) [Volume fraction] 33.1 % Low 40-54 [facility] Hemoglobin measurementOrdere d By: Verna Hui on 10-10-2024 Hemoglobin (Bld) [Mass/Vol] 11.2 g/dL Low 13.0-16.5 [facility] MCV (mean corpuscular volume ) determinationOrdered By: Verna Hui on 10-10-2024 MCV (RBC) [Entitic vol] 97.4 fL High 80-94 [facility] Magnesiumon 10-10-2024 Magnesium [Mass/Vol] 2.1 mg/dL Normal 1.5-2.2 [facility] Comment on above: Performed By: #### L 501.5200, L500.2500, L100.0500 ####[facility] [address] [place], [address] Magnesium (Unsp spec) [Mass/ Vol]Ordered By: Verna Hui on 10-10-2024 Magnesium [Mass/Vol] 2.1 mg/dL 1.5-2.2 [facility] Mean corpuscular hemoglobin (MCH) determinationOrdered By: Verna Hui on 10-10-2024 MCH (RBC) [Entitic mass] 32.9 pg High 27.0-32.0 [facility] Mean corpuscular hemoglobin concentration (MCHC) determinationOrdered By: Verna Hui on 10-10-2024 MCHC (RBC) [Mass/Vol] 33.8 g/dL 32-36 [facility] Mean platelet volume determi nationOrdered By: Verna Hui on 10-10-2024 Platelet mean volume (Bld) [Entitic vol] 9.7 fL 6.2-12.0 [facility] Platelet countOrdered By: Emigdio Hui on 10-10-2024 Platelets (Bld) [#/Vol] 338 10*3/uL 150-450 [facility] Potassium (Unsp spec) [Mass/ Vol]Ordered By: Verna Hui on 10-10-2024 Potassium [Moles/Vol] 3.9 mmol/L 3.3-5.1 [facility] RBC Auto (Bld) [#/Vol]Ordere d By: Verna Hui on 10-10-2024 RBC (Bld) [#/Vol] 3.40 10*6/uL Low 4.6-6.2 [facility] Serum creatinine measurement (mass/volume)Ordered By: Verna Hui on 10-10-2024 Creatinine [Mass/Vol] 0.64 mg/dL Low 0.70-1.20 [facility] Serum glucose measurement (m ass/volume)Ordered By: Verna Hui on 10-10-2024 Glucose [Mass/Vol] 162 mg/dL High 70-99 [facility] Serum or plasma calcium jody urement (mass/volume)Ordered By: Verna Hui on 10-10-2024 Calcium [Mass/Vol] 8.5 mg/dL 7.6-11.0 [facility] Serum or plasma urea nitroge n measurement (mass/volume)Ordered By: Verna Hui on 10-10-2024 Urea nitrogen [Mass/Vol] 12 mg/dL 4-19 [facility] Sodium levelOrdered By: Leonard Hui on 10-10-2024 Sodium [Moles/Vol] 139 mmol/L 133-145 [facility] White blood cell (WBC) count Ordered By: Verna Hui on 10-10-2024 WBC (Bld) [#/Vol] 6.3 10*3/uL 4.4-11.0 [facility] Absolute neutrophil countOrd ered By: Verna Hui on 10-04-2024 Neutrophils (Bld) [#/Vol] 5.5 10*3/uL 2.0-7.7 [facility] Anion gap in Serum or Plasma Ordered By: Verna Hui on 10-04-2024 Anion gap [Moles/Vol] 12 mmol/L 5-15 [facility] BUN/creatinine ratioOrdered By: Verna Hui on 10-04-2024 Urea nitrogen/Creatinine [Mass ratio] 33.8 mg/mg High [address] [place] [address] Basic Metabolic Profile (BMP )on 10-04-2024 BUN/CRE 33.8 RATIO High [address] [place] [address] Comment on above: Order Comment: 210.1 Performed By: #### L 500.2500, L501.5200, L503.0106, L501.9520, L500.4100, L100.0100, L506.1001 ####[facility] [address] [place], [address] Calcium [Mass/Vol] 8.3 mg/dL Normal 7.6-11.0 [facility] Comment on above: Order Comment: 210.1 Performed By: #### L 500.2500, L501.5200, L503.0106, L501.9520, L500.4100, L100.0100, L506.1001 ####[facility] [address] [place], [address] Chloride [Moles/Vol] 103 mmol/L Normal 98-108 [facility] Comment on above: Order Comment: 210. Performed By: #### L 500.2500, L501.5200, L503.0106, L501.9520, L500.4100, L100.0100, L506.1001 ####[facility] [address] [place], [address] CO2 [Moles/Vol] 23.2 mmol/L Normal 21.0-32.0 [facility] Comment on above: Order Comment: 210.1 Performed By: #### L 500.2500, L501.5200, L503.0106, L501.9520, L500.4100, L100.0100, L506.1001 ####[facility] [address] [place], [address] Creatinine [Mass/Vol] 0.60 mg/dL Low 0.70-1.20 [facility] Comment on above: Order Comment: 210.1 Performed By: #### L 500.2500, L501.5200, L503.0106, L501.9520, L500.4100, L100.0100, L506.1001 ####[facility] [address] [place], [address] GAP 12 Normal 5-15 [facility] Comment on above: Order Comment: 210.1 Performed By: #### L 500.2500, L501.5200, L503.0106, L501.9520, L500.4100, L100.0100, L506.1001 ####[facility] [address] [place], [address] GFR/1.73 sq M.predicted among non-blacks MDRD (S/P/Bld) [Vol rate/Area] 107 mL/min/{1.73_m2} Normal >60 [facility] Comment on above: Order Comment: 210.1 Result Comment: mL/m in/1.73m2 CKD-EPI Creatinine Equation (2020) Performed By: #### L 500.2500, L501.5200, L503.0106, L501.9520, L500.4100, L100.0100, L506.1001 ####[facility] [address] [place], [address] Glucose [Mass/Vol] 120 mg/dL High 70-99 [facility] Comment on above: Order Comment: 210.1 Performed By: #### L 500.2500, L501.5200, L503.0106, L501.9520, L500.4100, L100.0100, L506.1001 ####[facility] [address] [place], [address] Potassium [Moles/Vol] 4.1 mmol/L Normal 3.3-5.1 [facility] Comment on above: Order Comment: 210.1 Performed By: #### L 500.2500, L501.5200, L503.0106, L501.9520, L500.4100, L100.0100, L506.1001 ####[facility] [address] [place], [address] Sodium [Moles/Vol] 138 mmol/L Normal 133-145 [facility] Comment on above: Order Comment: 210.1 Performed By: #### L 500.2500, L501.5200, L503.0106, L501.9520, L500.4100, L100.0100, L506.1001 ####[facility] [address] [place], [address] Urea nitrogen [Mass/Vol] 20 mg/dL High - [facility] Comment on above: Order Comment: 210.1 Performed By: #### L 500.2500, L501.5200, L503.0106, L501.9520, L500.4100, L100.0100, L506.1001 ####[facility] [address] [place], [address] BUN Normal - [facility] Comment on above: Result Comment: Canc elled via OM: Order cancelled - Patient discharged Performed By: #### L 100.0100, L500.2500 ####[facility] [address] [place], [address] BUN/CRE Normal - [facility] Comment on above: Result Comment: Canc elled via OM: Order cancelled - Patient discharged Performed By: #### L 100.0100, L500.2500 ####[facility] [address] [place], [address] Calcium Normal 7.6-11.0 [facility] Comment on above: Result Comment: Canc elled via OM: Order cancelled - Patient discharged Performed By: #### L 100.0100, L500.2500 ####[facility] [address] [place], [address] CL Normal 98-107 [facility] Comment on above: Result Comment: Canc elled via OM: Order cancelled - Patient discharged Performed By: #### L 100.0100, L500.2500 ####[facility] [address] [place], [address] CO2 Normal 21.0-32.0 [facility] Comment on above: Result Comment: Canc elled via OM: Order cancelled - Patient discharged Performed By: #### L 100.0100, L500.2500 ####[facility] [address] [place], [address] CREAT,SERUM Normal 0.8-1.3 [facility] Comment on above: Result Comment: Canc elled via OM: Order cancelled - Patient discharged Performed By: #### L 100.0100, L500.2500 ####[facility] [address] [place], [address] eGFR Normal >60 [facility] Comment on above: Result Comment: Canc elled via OM: Order cancelled - Patient discharged Performed By: #### L 100.0100, L500.2500 ####[facility] [address] [place], [address] GAP Normal 5-15 [facility] Comment on above: Result Comment: Canc elled via OM: Order cancelled - Patient discharged Performed By: #### L 100.0100, L500.2500 ####[facility] [address] [place], [address] GLU Normal 70-99 [facility] Comment on above: Result Comment: Canc elled via OM: Order cancelled - Patient discharged Performed By: #### L 100.0100, L500.2500 ####[facility] [address] [place], [address] Potassium Normal 3.5-5.1 [facility] Comment on above: Result Comment: Canc elled via OM: Order cancelled - Patient discharged Performed By: #### L 100.0100, L500.2500 ####[facility] [address] [place], [address] Basic Metabolic Profile (BMP) Normal 136-145 [facility] Comment on above: Result Comment: Canc elled via OM: Order cancelled - Patient discharged Performed By: #### L 100.0100, L500.2500 ####[facility] [address] [place], [place], [id number] Basophil percentageOrdered B y: Verna Hui on 10-04-2024 Basophils/100 WBC (Bld) 0.2 % 0-1 [facility] CBC W/Diff, Automatedon Absolute Lymph 1.54 X10 3/uL Normal 0.83-4.51 [facility] Comment on above: Order Comment: 210.1 Performed By: #### L 500.2500, L501.5200, L503.0106, L501.9520, L500.4100, L100.0100, L506.1001 ####[facility] [address] [place], [address] Absolute Neut 5.5 X10 3/uL Normal 2.0-7.7 [facility] Comment on above: Order Comment: 210.1 Performed By: #### L 500.2500, L501.5200, L503.0106, L501.9520, L500.4100, L100.0100, L506.1001 ####[facility] [address] [place], [address] Basophils/100 WBC (Bld) 0.2 % Normal 0-1 [facility] Comment on above: Order Comment: 210.1 Performed By: #### L 500.2500, L501.5200, L503.0106, L501.9520, L500.4100, L100.0100, L506.1001 ####[facility] [address] [place], [address] Eosinophils/100 WBC (Bld) 2.3 % Normal 0-5 [facility] Comment on above: Order Comment: 210.1 Performed By: #### L 500.2500, L501.5200, L503.0106, L501.9520, L500.4100, L100.0100, L506.1001 ####[facility] [address] [place], [address] Erythrocyte distribution width (RBC) [Ratio] 12.8 % Normal 11.6-14.6 [facility] Comment on above: Order Comment: 210.1 Performed By: #### L 500.2500, L501.5200, L503.0106, L501.9520, L500.4100, L100.0100, L506.1001 ####[facility] [address] [place], [address] Hematocrit (Bld) [Volume fraction] 35.2 % Low 40-54 [facility] Comment on above: Order Comment: 210.1 Performed By: #### L 500.2500, L501.5200, L503.0106, L501.9520, L500.4100, L100.0100, L506.1001 ####[facility] [address] [place], [address] Hemoglobin (Bld) [Mass/Vol] 12.0 g/dL Low 13.0-16.5 [facility] Comment on above: Order Comment: 210.1 Performed By: #### L 500.2500, L501.5200, L503.0106, L501.9520, L500.4100, L100.0100, L506.1001 ####[facility] [address] [place], [address] IG% 0.600 Normal 0.0-0.9 [facility] Comment on above: Order Comment: 210.1 Result Comment: IG% - Immature Granulocytes (promyelocytes, myelocytes andmetamyelocytes) > 1% indicates that a LEFT SHIFT is Present. Performed By: #### L 500.2500, L501.5200, L503.0106, L501.9520, L500.4100, L100.0100, L506.1001 ####[facility] [address] [place], [address] Lymphocytes/100 WBC (Bld) 18.8 % Low 19-41 [facility] Comment on above: Order Comment: 210.1 Performed By: #### L 500.2500, L501.5200, L503.0106, L501.9520, L500.4100, L100.0100, L506.1001 ####[facility] [address] [place], [address] MCH (RBC) [Entitic mass] 32.9 pg High 27.0-32.0 [facility] Comment on above: Order Comment: 210.1 Performed By: #### L 500.2500, L501.5200, L503.0106, L501.9520, L500.4100, L100.0100, L506.1001 ####[facility] [address] [place], [address] MCHC (RBC) [Mass/Vol] 34.1 g/dL Normal 32-36 [facility] Comment on above: Order Comment: 210.1 Performed By: #### L 500.2500, L501.5200, L503.0106, L501.9520, L500.4100, L100.0100, L506.1001 ####[facility] [address] [place], [address] MCV (RBC) [Entitic vol] 96.4 fL High 80-94 [facility] Comment on above: Order Comment: 210.1 Performed By: #### L 500.2500, L501.5200, L503.0106, L501.9520, L500.4100, L100.0100, L506.1001 ####[facility] [address] [place], [address] Monocytes/100 WBC (Bld) 11.1 % High 0-10 [facility] Comment on above: Order Comment: 210.1 Performed By: #### L 500.2500, L501.5200, L503.0106, L501.9520, L500.4100, L100.0100, L506.1001 ####[facility] [address] [place], [address] Neutrophils/100 WBC (Bld) 67.0 % Normal 47-70 [facility] Comment on above: Order Comment: .1 Performed By: #### L 500.2500, L501.5200, L503.0106, L501.9520, L500.4100, L100.0100, L506.1001 ####[facility] [address] [place], [address] Nucleated RBC (Bld) [#/Vol] 0 10*3/uL Normal 0-5 [facility] Comment on above: Order Comment: 210.1 Performed By: #### L 500.2500, L501.5200, L503.0106, L501.9520, L500.4100, L100.0100, L506.1001 ####[facility] [address] [place], [address] Platelet mean volume (Bld) [Entitic vol] 10.5 fL Normal 6.2-12.0 [facility] Comment on above: Order Comment: 210.1 Performed By: #### L 500.2500, L501.5200, L503.0106, L501.9520, L500.4100, L100.0100, L506.1001 ####[facility] [address] [place], [address] Platelets (Bld) [#/Vol] 244 10*3/uL Normal 150-450 [facility] Comment on above: Order Comment: 210.1 Performed By: #### L 500.2500, L501.5200, L503.0106, L501.9520, L500.4100, L100.0100, L506.1001 ####[facility] [address] [place], [address] RBC (Bld) [#/Vol] 3.65 10*6/uL Low 4.6-6.2 [facility] Comment on above: Order Comment: 210.1 Performed By: #### L 500.2500, L501.5200, L503.0106, L501.9520, L500.4100, L100.0100, L506.1001 ####[facility] [address] [place], [address] RDW SD 45.7 fl High 35.1-43.9 [facility] Comment on above: Order Comment: 210.1 Performed By: #### L 500.2500, L501.5200, L503.0106, L501.9520, L500.4100, L100.0100, L506.1001 ####[facility] [address] [place], [address] WBC (Bld) [#/Vol] 8.2 10*3/uL Normal 4.4-11.0 [facility] Comment on above: Order Comment: 210.1 Performed By: #### L 500.2500, L501.5200, L503.0106, L501.9520, L500.4100, L100.0100, L506.1001 ####[facility] [address] [place], [address] Absolute Neut Normal 2.0-7.7 [facility] Comment on above: Result Comment: Canc elled via OM: Order cancelled - Patient discharged Performed By: #### L 100.0100, L500.2500 ####[facility] [address] [place], [address] HCT Normal 40-54 [facility] Comment on above: Result Comment: Canc elled via OM: Order cancelled - Patient discharged Performed By: #### L 100.0100, L500.2500 ####[facility] [address] [place], [address] HGB Normal 13.0-16.5 [facility] Comment on above: Result Comment: Canc elled via OM: Order cancelled - Patient discharged Performed By: #### L 100.0100, L500.2500 ####[facility] [address] [place], [address] MCH Normal 27.0-32.0 [facility] Comment on above: Result Comment: Canc elled via OM: Order cancelled - Patient discharged Performed By: #### L 100.0100, L500.2500 ####[facility] [address] [place], [address] MCHC Normal 32-36 [facility] Comment on above: Result Comment: Canc elled via OM: Order cancelled - Patient discharged Performed By: #### L 100.0100, L500.2500 ####[facility] [address] [place], [address] MCV Normal 80-94 [facility] Comment on above: Result Comment: Canc elled via OM: Order cancelled - Patient discharged Performed By: #### L 100.0100, L500.2500 ####[facility] [address] [place], [address] NEUT% Normal 47-70 [facility] Comment on above: Result Comment: Canc elled via OM: Order cancelled - Patient discharged Performed By: #### L 100.0100, L500.2500 ####[facility] [address] [place], [address] PLT Normal 150-450 [facility] Comment on above: Result Comment: Canc elled via OM: Order cancelled - Patient discharged Performed By: #### L 100.0100, L500.2500 ####[facility] [address] [place], [address] RBC Normal 4.6-6.2 [facility] Comment on above: Result Comment: Canc elled via OM: Order cancelled - Patient discharged Performed By: #### L 100.0100, L500.2500 ####[facility] [address] [place], [address] RDW CV Normal 11.6-14.6 [facility] Comment on above: Result Comment: Canc elled via OM: Order cancelled - Patient discharged Performed By: #### L 100.0100, L500.2500 ####[facility] [address] [place], [address] RDW SD Normal 35.1-43.9 [facility] Comment on above: Result Comment: Canc elled via OM: Order cancelled - Patient discharged Performed By: #### L 100.0100, L500.2500 ####[facility] [address] [place], [address] WBC Normal 4.4-11.0 [facility] Comment on above: Result Comment: Canc elled via OM: Order cancelled - Patient discharged Performed By: #### L 100.0100, L500.2500 ####[facility] [address] [place], [address] Calculated very low density lipoprotein (VLDL) cholesterol measurementOrdered By: Verna Hui on 10-04-2024 VLDL Cholesterol 15 mg/dL 5-40 [facility] Carbon dioxide, total [Moles /volume] in Central venous bloodOrdered By: Verna Hui on 10-04-2024 CO2 [Moles/Vol] 23.2 mmol/L 21.0-32.0 [facility] Chloride assayOrdered By: Emigdio Hui on 10-04-2024 Chloride [Moles/Vol] 103 mmol/L 98-108 [facility] Eosinophil percentageOrdered By: Verna Hui on 10-04-2024 Eosinophils/100 WBC (Bld) 2.3 % 0-5 [facility] Erythrocyte distribution wid th (RBC) [Ratio]Ordered By: Verna Hui on 10-04-2024 Erythrocyte distribution width (RBC) [Entitic vol] 45.7 fL High 35.1-43.9 [facility] Erythrocyte distribution wid th ratioOrdered By: Verna Hui on 10-04-2024 Erythrocyte distribution width (RBC) [Ratio] 12.8 % 11.6-14.6 [facility] GFR/1.73 sq M.predicted ally g non-blacks MDRD (S/P/Bld) [Vol rate/Area]Ordered By: Verna Hui on 10-04-2024 Estimated GFR (MDRD) Non-Af Amer 107 >60 [facility] Comment on above: mL/min/1.73m2 CKD-EP I Creatinine Equation (2020) Hematocrit Auto (Bld) [Volum e fraction]Ordered By: Verna Hui on 10-04-2024 Hematocrit (Bld) [Volume fraction] 35.2 % Low 40-54 [facility] Hemoglobin measurementOrdere d By: Verna Hui on 10-04-2024 Hemoglobin (Bld) [Mass/Vol] 12.0 g/dL Low 13.0-16.5 [facility] Immature granulocytes/100 WB C Auto (Bld)Ordered By: Verna Hui on 10-04-2024 Immature granulocytes/100 WBC (Bld) 0.600 % 0.0-0.9 [facility] Comment on above: IG% - Immature Granu locytes (promyelocytes, myelocytes and metamyelocytes) > 1% indicates that a LEFT SHIFT is Present. L503.0106on 10-04-2024 Cobalamin (Vitamin B12) [Mass/Vol] 298 pg/mL Normal 180-914 [facility] Comment on above: Order Comment: 210.1 Performed By: #### L 500.2500, L501.5200, L503.0106, L501.9520, L500.4100, L100.0100, L506.1001 ####[facility] [address] [place], [address] L506.1001on 10-04-2024 Vitamin D 25-OH 14.6 ng/mL Low 30-100 [facility] Comment on above: Order Comment: 210.1 Result Comment: Cecy min D StatusDeficiency: <20 ng/mL (50nmol/L)Insufficiency: 20-30 ng/mL (50-75 nmol/L)Sufficiency: 30-100 ng/mL (75-250 nmol/L)Toxicity: >100 ng/mL (>250 nmol/L) Performed By: #### L 500.2500, L501.5200, L503.0106, L501.9520, L500.4100, L100.0100, L506.1001 ####[facility] [address] [place], [address] LDL calc ser/plasOrdered By: Verna Hui on 10-04-2024 LDL Cholesterol, Calculated 75 mg/dL [facility] Comment on above: Ymvxmuwpxj=651-722 m g/dL & Higher Owub=907 mg/dL or greater Lipid Profileon 10-04-2024 CHOL:HDL 3.05 Normal [facility] Comment on above: Order Comment: 210.1 Performed By: #### L 500.2500, L501.5200, L503.0106, L501.9520, L500.4100, L100.0100, L506.1001 ####[facility] [address] [place], [address] Cholesterol [Mass/Vol] 134 mg/dL Normal <=200 [facility] Comment on above: Order Comment: 210.1 Result Comment: Chol esterol level, Desirable <200 mg/dLBorderline high cholesterol 200-239 mg/dLHigh cholesterol >=240 mg/dLRecommendations of the NCEP Adult Treatment Panel for thefollowing risk-cutoff thresholds for the [place] Americanpulation. Performed By: #### L 500.2500, L501.5200, L503.0106, L501.9520, L500.4100, L100.0100, L506.1001 ####[facility] [address] [place], [address] Cholesterol in HDL [Mass/Vol] 44 mg/dL Normal [facility] Comment on above: Order Comment: 210.1 Result Comment: Trang onal Cholesterol Education Program (NCEP) guidelines:<40 mg/dL: Low HDL-cholesterol (major risk factor for CHD)>= 60 mg/dL: High HDL-cholesterol (negative risk factor forCHD)HDL-cholesterol is affected by a number of factors, e.g.smoking, exercise, hormones, sex and age. Performed By: #### L 500.2500, L501.5200, L503.0106, L501.9520, L500.4100, L100.0100, L506.1001 ####[facility] [address] [place], [address] Cholesterol in LDL [Mass/Vol] 75 mg/dL Normal [facility] Comment on above: Order Comment: 210.1 Result Comment: Bord gwbgvb=297-456 mg/dL Higher Hacw=039 mg/dL or greater Performed By: #### L 500.2500, L501.5200, L503.0106, L501.9520, L500.4100, L100.0100, L506.1001 ####[facility] [address] [place], [address] Cholesterol in VLDL [Mass/Vol] 15 mg/dL Normal 5-40 [facility] Comment on above: Order Comment: 210.1 Performed By: #### L 500.2500, L501.5200, L503.0106, L501.9520, L500.4100, L100.0100, L506.1001 ####[facility] [address] [place], [address] Triglyceride [Mass/Vol] 76 mg/dL Normal [facility] Comment on above: Order Comment: 210.1 Result Comment: The drugs N-Acetylcysteine and Metamizole may falselydepress this assay.Normal range: <150 mg/dLBorderline High: 150-199 mg/dLHigh: 200-499 mg/dLVery High: >500 mg/dL Performed By: #### L 500.2500, L501.5200, L503.0106, L501.9520, L500.4100, L100.0100, L506.1001 ####[facility] [address] [place], [address] Lymphocytes Auto (Unsp spec) [#/Vol]Ordered By: Verna Hui on 10-04-2024 Lymphocytes (Bld) [#/Vol] 1.54 10*3/uL 0.83-4.51 [facility] Lymphocytes/100 WBC Auto (Un sp spec)Ordered By: Verna Hui on 10-04-2024 Lymphocytes/100 WBC (Bld) 18.8 % Low 19-41 [facility] MCV (mean corpuscular volume ) determinationOrdered By: Verna Hui on 10-04-2024 MCV (RBC) [Entitic vol] 96.4 fL High 80-94 [facility] Magnesiumon 10-04-2024 Magnesium [Mass/Vol] 2.1 mg/dL Normal 1.5-2.2 [facility] Comment on above: Order Comment: 210.1 Performed By: #### L 500.2500, L501.5200, L503.0106, L501.9520, L500.4100, L100.0100, L506.1001 ####[facility] [address] [place], [address] Magnesium (Unsp spec) [Mass/ Vol]Ordered By: Verna Hui on 10-04-2024 Magnesium [Mass/Vol] 2.1 mg/dL 1.5-2.2 [facility] Mean corpuscular hemoglobin (MCH) determinationOrdered By: Verna Hui on 10-04-2024 MCH (RBC) [Entitic mass] 32.9 pg High 27.0-32.0 [facility] Mean corpuscular hemoglobin concentration (MCHC) determinationOrdered By: Verna Hui on 10-04-2024 MCHC (RBC) [Mass/Vol] 34.1 g/dL 32-36 [facility] Mean platelet volume determi nationOrdered By: Verna Hui on 10-04-2024 Platelet mean volume (Bld) [Entitic vol] 10.5 fL 6.2-12.0 [facility] Monocyte percentageOrdered B y: Verna Hui on 10-04-2024 Monocytes/100 WBC (Bld) 11.1 % High 0-10 [facility] Neutrophil percentageOrdered By: Verna Hui on 10-04-2024 Neutrophils/100 WBC (Bld) 67.0 % 47-70 [facility] Nucleated red blood cell per centageOrdered By: Verna Hui on 10-04-2024 Nucleated RBC/100 WBC (Bld) [Ratio] 0 % 0-5 [facility] Platelet countOrdered By: Emigdio Hui on 10-04-2024 Platelets (Bld) [#/Vol] 244 10*3/uL 150-450 [facility] Potassium (Unsp spec) [Mass/ Vol]Ordered By: Verna Hui on 10-04-2024 Potassium [Moles/Vol] 4.1 mmol/L 3.3-5.1 [facility] RBC Auto (Bld) [#/Vol]Ordere d By: Verna Hui on 10-04-2024 RBC (Bld) [#/Vol] 3.65 10*6/uL Low 4.6-6.2 [facility] Screening total cholesterol/ high density lipoprotein (HDL) cholesterol ratioOrdered By: Verna Hui on 10-04-2024 Cholesterol.total/Choles terol in HDL [Mass ratio] 3.05 {ratio} [facility] Serum creatinine measurement (mass/volume)Ordered By: Verna Hui on 10-04-2024 Creatinine [Mass/Vol] 0.60 mg/dL Low 0.70-1.20 [facility] Serum glucose measurement (m ass/volume)Ordered By: Verna Hui on 10-04-2024 Glucose [Mass/Vol] 120 mg/dL High 70-99 [facility] Serum or plasma calcium jody urement (mass/volume)Ordered By: Verna Hui on 10-04-2024 Calcium [Mass/Vol] 8.3 mg/dL 7.6-11.0 [facility] Serum or plasma cholesterol in HDL measurement (mass/volume)Ordered By: Verna Hui on 10-04-2024 Cholesterol in HDL [Mass/Vol] 44 mg/dL >40 [facility] Comment on above: National Cholesterol Education Program (NCEP) guidelines:<40 mg/dL: Low HDL-cholesterol (major risk factor for CHD)>= 60 mg/dL: High HDL-cholesterol (negative risk factor for CHD)HDL-cholesterol is affected by a number of factors, e.g. smoking, exercise, hormones, sex and age. Serum or plasma cholesterol measurement (mass/volume)Ordered By: Verna Hui on 10-04-2024 Cholesterol [Mass/Vol] 134 mg/dL <201 [facility] Comment on above: Cholesterol level, D esirable <200 mg/dLBorderline high cholesterol 200-239 mg/dLHigh cholesterol >=240 mg/dLRecommendations of the NCEP Adult Treatment Panel for the following risk-cutoff thresholds for the [place] population. Serum or plasma urea nitroge n measurement (mass/volume)Ordered By: Verna Hui on 10-04-2024 Urea nitrogen [Mass/Vol] 20 mg/dL High 4-19 [facility] Sodium levelOrdered By: Leonard uHi on 10-04-2024 Sodium [Moles/Vol] 138 mmol/L 133-145 [facility] TSH DL <= 0.005 mIU/L QnOrde red By: Verna Hui on 10-04-2024 Thyroid Stimulating Hormone (TSH) 1.900 uIU/mL 0.300-4.200 [facility] Thyroid Stim Hormone (TSH)on 10-04-2024 TSH 1.900 uIU/mL Normal 0.300-4.200 [facility] Comment on above: Order Comment: 210.1 Performed By: #### L 500.2500, L501.5200, L503.0106, L501.9520, L500.4100, L100.0100, L506.1001 ####[facility] [address] [place], [address] Triglycerides measurementOrd ered By: Verna Hui on 10-04-2024 Triglyceride [Mass/Vol] 76 mg/dL <199 [facility] Comment on above: The drugs N-Acetylcy steine and Metamizole may falsely depress this assay. Normal range: <150 mg/dLBorderline High: 150-199 mg/dLHigh: 200-499 mg/dLVery High: >500 mg/dL Vitamin B12 ser/plasOrdered By: Verna Hui on 10-04-2024 Cobalamin (Vitamin B12) [Mass/Vol] 298 pg/mL 180-914 [facility] Vitamin D, 25-hydroxyOrdered By: Verna Hui on 10-04-2024 Vitamin D 25-Hydroxy 14.6 ng/mL Low 30-100 [facility] Comment on above: Vitamin D StatusDefi ciency: <20 ng/mL (50nmol/L)Insufficiency: 20-30 ng/mL (50-75 nmol/L)Sufficiency: 30-100 ng/mL (75-250 nmol/L)Toxicity: >100 ng/mL (>250 nmol/L) White blood cell (WBC) count Ordered By: Verna Hui on 10-04-2024 WBC (Bld) [#/Vol] 8.2 10*3/uL 4.4-11.0 [facility] Basic Metabolic Profile (BMP )on 10-03-2024 BUN Normal 4-19 [facility] Comment on above: Result Comment: Canc elled via OM: Order cancelled - Patient discharged Performed By: #### L 500.2500, L100.0100 ####[facility] [address] [place], [address] Order Comment: 210.1 Result Comment: UTO X2 Performed By: #### L 500.4100, L500.2500, L100.0100 ####[facility] [address] [place], [address] BUN/CRE Normal 10-20 [facility] Comment on above: Result Comment: Canc elled via OM: Order cancelled - Patient discharged Performed By: #### L 500.2500, L100.0100 ####[facility] [address] [place], [address] Order Comment: 210.1 Result Comment: UTO X2 Performed By: #### L 500.4100, L500.2500, L100.0100 ####[facility] [address] [place], [address] Calcium Normal 7.6-11.0 [facility] Comment on above: Result Comment: Canc elled via OM: Order cancelled - Patient discharged Performed By: #### L 500.2500, L100.0100 ####[facility] [address] [place], [address] Order Comment: 210.1 Result Comment: UTO X2 Performed By: #### L 500.4100, L500.2500, L100.0100 ####[facility] [address] [place], [address] CL Normal 98-107 [facility] Comment on above: Result Comment: Canc elled via OM: Order cancelled - Patient discharged Performed By: #### L 500.2500, L100.0100 ####[facility] [address] [place], [address] CO2 Normal 22.0-29.0 [facility] Comment on above: Result Comment: Canc elled via OM: Order cancelled - Patient discharged Performed By: #### L 500.2500, L100.0100 ####[facility] [address] [place], [address] Order Comment: 210.1 Result Comment: UTO X2 Performed By: #### L 500.4100, L500.2500, L100.0100 ####[facility] [address] [place], [address] CREAT,SERUM Normal 0.70-1.20 [facility] Comment on above: Result Comment: Canc elled via OM: Order cancelled - Patient discharged Performed By: #### L 500.2500, L100.0100 ####[facility] [address] [place], [address] Order Comment: 210.1 Result Comment: UTO X2 Performed By: #### L 500.4100, L500.2500, L100.0100 ####[facility] [address] [place], [address] eGFR Normal >60 [facility] Comment on above: Result Comment: Canc elled via OM: Order cancelled - Patient discharged Performed By: #### L 500.2500, L100.0100 ####[facility] [address] [place], [address] Order Comment: 210.1 Result Comment: UTO X2 Performed By: #### L 500.4100, L500.2500, L100.0100 ####[facility] [address] [place], [address] GAP Normal 5-15 [facility] Comment on above: Result Comment: Canc elled via OM: Order cancelled - Patient discharged Performed By: #### L 500.2500, L100.0100 ####[facility] [address] [place], [address] GLU Normal 70-99 [facility] Comment on above: Result Comment: Canc elled via OM: Order cancelled - Patient discharged Performed By: #### L 500.2500, L100.0100 ####[facility] [address] [place], [address] Order Comment: 210.1 Result Comment: UTO X2 Performed By: #### L 500.4100, L500.2500, L100.0100 ####[facility] [address] [place], [address] Potassium Normal 3.3-5.1 [facility] Comment on above: Result Comment: Canc elled via OM: Order cancelled - Patient discharged Performed By: #### L 500.2500, L100.0100 ####[facility] [address] [place], [address] Order Comment: 210.1 Result Comment: UTO X2 Performed By: #### L 500.4100, L500.2500, L100.0100 ####[facility] [address] [place], [address] Basic Metabolic Profile (BMP) Normal 136-145 [facility] Comment on above: Result Comment: Canc elled via OM: Order cancelled - Patient discharged Performed By: #### L 500.2500, L100.0100 ####[facility] [address] [place], [address] Anion Gap Normal 5-15 [facility] Comment on above: Order Comment: 210.1 Result Comment: UTO X2 Performed By: #### L 500.4100, L500.2500, L100.0100 ####[facility] [address] [place], [address] Chloride Normal 96-108 [facility] Comment on above: Order Comment: 210.1 Result Comment: UTO X2 Performed By: #### L 500.4100, L500.2500, L100.0100 ####[facility] [address] [place], [address] Sodium Normal 133-145 [facility] Comment on above: Order Comment: 210.1 Result Comment: UTO X2 Performed By: #### L 500.4100, L500.2500, L100.0100 ####[facility] [address] [place], [address] CBC W/Diff, Automatedon 03-0 Absolute Neut Normal 2.0-7.7 [facility] Comment on above: Result Comment: Canc elled via OM: Order cancelled - Patient discharged Performed By: #### L 500.2500, L100.0100 ####[facility] [address] [place], [address] Order Comment: 210.1 Result Comment: UTO X2 Performed By: #### L 500.4100, L500.2500, L100.0100 ####[facility] [address] [place], [address] HCT Normal 40-54 [facility] Comment on above: Result Comment: Canc elled via OM: Order cancelled - Patient discharged Performed By: #### L 500.2500, L100.0100 ####[facility] [address] [place], [address] Order Comment: 210.1 Result Comment: UTO X2 Performed By: #### L 500.4100, L500.2500, L100.0100 ####[facility] [address] [place], [address] HGB Normal 13.0-16.5 [facility] Comment on above: Result Comment: Canc elled via OM: Order cancelled - Patient discharged Performed By: #### L 500.2500, L100.0100 ####[facility] [address] [place], [address] Order Comment: 210.1 Result Comment: UTO X2 Performed By: #### L 500.4100, L500.2500, L100.0100 ####[facility] [address] [place], [address] MCH Normal 27.0-32.0 [facility] Comment on above: Result Comment: Canc elled via OM: Order cancelled - Patient discharged Performed By: #### L 500.2500, L100.0100 ####[facility] [address] [place], [address] Order Comment: 210.1 Result Comment: UTO X2 Performed By: #### L 500.4100, L500.2500, L100.0100 ####[facility] [address] [place], [address] MCHC Normal 32-36 [facility] Comment on above: Result Comment: Canc elled via OM: Order cancelled - Patient discharged Performed By: #### L 500.2500, L100.0100 ####[facility] [address] [place], [address] Order Comment: 210.1 Result Comment: UTO X2 Performed By: #### L 500.4100, L500.2500, L100.0100 ####[facility] [address] [place], [address] MCV Normal 80-94 [facility] Comment on above: Result Comment: Canc elled via OM: Order cancelled - Patient discharged Performed By: #### L 500.2500, L100.0100 ####[facility] [address] [place], [address] Order Comment: 210.1 Result Comment: UTO X2 Performed By: #### L 500.4100, L500.2500, L100.0100 ####[facility] [address] [place], [address] NEUT% Normal 47-70 [facility] Comment on above: Result Comment: Canc elled via OM: Order cancelled - Patient discharged Performed By: #### L 500.2500, L100.0100 ####[facility] [address] [place], [address] Order Comment: 210.1 Result Comment: UTO X2 Performed By: #### L 500.4100, L500.2500, L100.0100 ####[facility] [address] [place], [address] PLT Normal 150-450 [facility] Comment on above: Result Comment: Canc elled via OM: Order cancelled - Patient discharged Performed By: #### L 500.2500, L100.0100 ####[facility] [address] [place], [address] Order Comment: 210.1 Result Comment: UTO X2 Performed By: #### L 500.4100, L500.2500, L100.0100 ####[facility] [address] [place], [address] RBC Normal 4.6-6.2 [facility] Comment on above: Result Comment: Canc elled via OM: Order cancelled - Patient discharged Performed By: #### L 500.2500, L100.0100 ####[facility] [address] [place], [address] Order Comment: 210.1 Result Comment: UTO X2 Performed By: #### L 500.4100, L500.2500, L100.0100 ####[facility] [address] [place], [address] RDW CV Normal 11.6-14.6 [facility] Comment on above: Result Comment: Canc elled via OM: Order cancelled - Patient discharged Performed By: #### L 500.2500, L100.0100 ####[facility] [address] [place], [address] Order Comment: 210.1 Result Comment: UTO X2 Performed By: #### L 500.4100, L500.2500, L100.0100 ####[facility] [address] [place], [address] RDW SD Normal 35.1-43.9 [facility] Comment on above: Result Comment: Canc elled via OM: Order cancelled - Patient discharged Performed By: #### L 500.2500, L100.0100 ####[facility] [address] [place], [address] Order Comment: 210.1 Result Comment: UTO X2 Performed By: #### L 500.4100, L500.2500, L100.0100 ####[facility] [address] [place], [address] WBC Normal 4.4-11.0 [facility] Comment on above: Result Comment: Canc elled via OM: Order cancelled - Patient discharged Performed By: #### L 500.2500, L100.0100 ####[facility] [address] [place], [address] Order Comment: 210.1 Result Comment: UTO X2 Performed By: #### L 500.4100, L500.2500, L100.0100 ####[facility] [address] [place], [address] Lipid Profileon 10-03-2024 CHOL Normal <=200 [facility] Comment on above: Order Comment: 210.1 Result Comment: UTO X2 Performed By: #### L 500.4100, L500.2500, L100.0100 ####[facility] [address] [place], [address] CHOL:HDL Normal [facility] Comment on above: Order Comment: 210.1 Result Comment: UTO X2 Performed By: #### L 500.4100, L500.2500, L100.0100 ####[facility] [address] [place], [address] CLDL Normal [facility] Comment on above: Order Comment: 210.1 Result Comment: UTO X2 Performed By: #### L 500.4100, L500.2500, L100.0100 ####[facility] [address] [place], [address] HDL Normal [facility] Comment on above: Order Comment: 210.1 Result Comment: UTO X2 Performed By: #### L 500.4100, L500.2500, L100.0100 ####[facility] [address] [place], [address] TRIG Normal [facility] Comment on above: Order Comment: 210.1 Result Comment: UTO X2 Performed By: #### L 500.4100, L500.2500, L100.0100 ####[facility] [address] [place], [address] VLDL Normal 5-40 [facility] Comment on above: Order Comment: 210.1 Result Comment: UTO X2 Performed By: #### L 500.4100, L500.2500, L100.0100 ####[facility] [address] [place], [address] Basic Metabolic Profile (BMP )on 10-02-2024 BUN Normal 4-19 [facility] Comment on above: Result Comment: Canc elled via OM: Order cancelled - Patient discharged Performed By: #### L 100.0100, L500.2500 ####[facility] [address] [place], [address] BUN/CRE Normal 10-20 [facility] Comment on above: Result Comment: Canc elled via OM: Order cancelled - Patient discharged Performed By: #### L 100.0100, L500.2500 ####[facility] [address] [place], [address] Calcium Normal 7.6-11.0 [facility] Comment on above: Result Comment: Canc elled via OM: Order cancelled - Patient discharged Performed By: #### L 100.0100, L500.2500 ####[facility] [address] [place], [address] CL Normal 98-107 [facility] Comment on above: Result Comment: Canc elled via OM: Order cancelled - Patient discharged Performed By: #### L 100.0100, L500.2500 ####[facility] [address] [place], [address] CO2 Normal 21.0-32.0 [facility] Comment on above: Result Comment: Canc elled via OM: Order cancelled - Patient discharged Performed By: #### L 100.0100, L500.2500 ####[facility] [address] [place], [address] CREAT,SERUM Normal 0.8-1.3 [facility] Comment on above: Result Comment: Canc elled via OM: Order cancelled - Patient discharged Performed By: #### L 100.0100, L500.2500 ####[facility] [address] [place], [address] eGFR Normal >60 [facility] Comment on above: Result Comment: Canc elled via OM: Order cancelled - Patient discharged Performed By: #### L 100.0100, L500.2500 ####[facility] [address] [place], [address] GAP Normal 5-15 [facility] Comment on above: Result Comment: Canc elled via OM: Order cancelled - Patient discharged Performed By: #### L 100.0100, L500.2500 ####[facility] [address] [place], [address] GLU Normal 70-99 [facility] Comment on above: Result Comment: Canc elled via OM: Order cancelled - Patient discharged Performed By: #### L 100.0100, L500.2500 ####[facility] [address] [place], [address] Potassium Normal 3.5-5.1 [facility] Comment on above: Result Comment: Canc elled via OM: Order cancelled - Patient discharged Performed By: #### L 100.0100, L500.2500 ####[facility] [address] [place], [address] Basic Metabolic Profile (BMP) Normal 136-145 [facility] Comment on above: Result Comment: Canc elled via OM: Order cancelled - Patient discharged Performed By: #### L 100.0100, L500.2500 ####[facility] [address] [place], [address] CBC W/Diff, Automatedon 03-0 Absolute Neut Normal 2.0-7.7 [facility] Comment on above: Result Comment: Canc elled via OM: Order cancelled - Patient discharged Performed By: #### L 100.0100, L500.2500 ####[facility] [address] [place], [address] HCT Normal 40-54 [facility] Comment on above: Result Comment: Canc elled via OM: Order cancelled - Patient discharged Performed By: #### L 100.0100, L500.2500 ####[facility] [address] [place], [address] HGB Normal 13.0-16.5 [facility] Comment on above: Result Comment: Canc elled via OM: Order cancelled - Patient discharged Performed By: #### L 100.0100, L500.2500 ####[facility] [address] [place], [address] MCH Normal 27.0-32.0 [facility] Comment on above: Result Comment: Canc elled via OM: Order cancelled - Patient discharged Performed By: #### L 100.0100, L500.2500 ####[facility] [address] [place], [address] MCHC Normal 32-36 [facility] Comment on above: Result Comment: Canc elled via OM: Order cancelled - Patient discharged Performed By: #### L 100.0100, L500.2500 ####[facility] [address] [place], [address] MCV Normal 80-94 [facility] Comment on above: Result Comment: Canc elled via OM: Order cancelled - Patient discharged Performed By: #### L 100.0100, L500.2500 ####[facility] [address] [place], [address] NEUT% Normal 47-70 [facility] Comment on above: Result Comment: Canc elled via OM: Order cancelled - Patient discharged Performed By: #### L 100.0100, L500.2500 ####[facility] [address] [place], [address] PLT Normal 150-450 [facility] Comment on above: Result Comment: Canc elled via OM: Order cancelled - Patient discharged Performed By: #### L 100.0100, L500.2500 ####[facility] [address] [place], [address] RBC Normal 4.6-6.2 [facility] Comment on above: Result Comment: Canc elled via OM: Order cancelled - Patient discharged Performed By: #### L 100.0100, L500.2500 ####[facility] [address] [place], [address] RDW CV Normal 11.6-14.6 [facility] Comment on above: Result Comment: Canc elled via OM: Order cancelled - Patient discharged Performed By: #### L 100.0100, L500.2500 ####[facility] [address] [place], [address] RDW SD Normal 35.1-43.9 [facility] Comment on above: Result Comment: Canc elled via OM: Order cancelled - Patient discharged Performed By: #### L 100.0100, L500.2500 ####[facility] [address] [place], [address] WBC Normal 4.4-11.0 [facility] Comment on above: Result Comment: Canc elled via OM: Order cancelled - Patient discharged Performed By: #### L 100.0100, L500.2500 ####[facility] [address] [place], [address] Basic Metabolic Profile (BMP )on 10-01-2024 BUN Normal 4-19 [facility] Comment on above: Result Comment: Canc elled via OM: Order cancelled - Patient discharged Performed By: #### L 100.0100, L500.2500 ####[facility] [address] [place], [address] BUN/CRE Normal 10-20 [facility] Comment on above: Result Comment: Canc elled via OM: Order cancelled - Patient discharged Performed By: #### L 100.0100, L500.2500 ####[facility] [address] [place], [address] Calcium Normal 7.6-11.0 [facility] Comment on above: Result Comment: Canc elled via OM: Order cancelled - Patient discharged Performed By: #### L 100.0100, L500.2500 ####[facility] [address] [place], [address] CL Normal 98-107 [facility] Comment on above: Result Comment: Canc elled via OM: Order cancelled - Patient discharged Performed By: #### L 100.0100, L500.2500 ####[facility] [address] [place], [address] CO2 Normal 21.0-32.0 [facility] Comment on above: Result Comment: Canc elled via OM: Order cancelled - Patient discharged Performed By: #### L 100.0100, L500.2500 ####[facility] [address] [place], [address] CREAT,SERUM Normal 0.8-1.3 [facility] Comment on above: Result Comment: Canc elled via OM: Order cancelled - Patient discharged Performed By: #### L 100.0100, L500.2500 ####[facility] [address] [place], [address] eGFR Normal >60 [facility] Comment on above: Result Comment: Canc elled via OM: Order cancelled - Patient discharged Performed By: #### L 100.0100, L500.2500 ####[facility] [address] [place], [address] GAP Normal 5-15 [facility] Comment on above: Result Comment: Canc elled via OM: Order cancelled - Patient discharged Performed By: #### L 100.0100, L500.2500 ####[facility] [address] [place], [address] GLU Normal 70-99 [facility] Comment on above: Result Comment: Canc elled via OM: Order cancelled - Patient discharged Performed By: #### L 100.0100, L500.2500 ####[facility] [address] [place], [address] Potassium Normal 3.5-5.1 [facility] Comment on above: Result Comment: Canc elled via OM: Order cancelled - Patient discharged Performed By: #### L 100.0100, L500.2500 ####[facility] [address] [place], [address] Basic Metabolic Profile (BMP) Normal 136-145 [facility] Comment on above: Result Comment: Canc elled via OM: Order cancelled - Patient discharged Performed By: #### L 100.0100, L500.2500 ####[facility] [address] [place], [address] CBC W/Diff, Automatedon 03-0 Absolute Neut Normal 2.0-7.7 [facility] Comment on above: Result Comment: Canc elled via OM: Order cancelled - Patient discharged Performed By: #### L 100.0100, L500.2500 ####[facility] [address] [place], [address] HCT Normal 40-54 [facility] Comment on above: Result Comment: Canc elled via OM: Order cancelled - Patient discharged Performed By: #### L 100.0100, L500.2500 ####[facility] [address] [place], [address] HGB Normal 13.0-16.5 [facility] Comment on above: Result Comment: Canc elled via OM: Order cancelled - Patient discharged Performed By: #### L 100.0100, L500.2500 ####[facility] [address] [place], [address] MCH Normal 27.0-32.0 [facility] Comment on above: Result Comment: Canc elled via OM: Order cancelled - Patient discharged Performed By: #### L 100.0100, L500.2500 ####[facility] [address] [place], [address] MCHC Normal 32-36 [facility] Comment on above: Result Comment: Canc elled via OM: Order cancelled - Patient discharged Performed By: #### L 100.0100, L500.2500 ####[facility] [address] [place], [address] MCV Normal 80-94 [facility] Comment on above: Result Comment: Canc elled via OM: Order cancelled - Patient discharged Performed By: #### L 100.0100, L500.2500 ####[facility] [address] [place], [address] NEUT% Normal 47-70 [facility] Comment on above: Result Comment: Canc elled via OM: Order cancelled - Patient discharged Performed By: #### L 100.0100, L500.2500 ####[facility] [address] [place], [address] PLT Normal 150-450 [facility] [facility] Comment on above: Result Comment: Canc elled via OM: Order cancelled - Patient discharged Performed By: #### L 100.0100, L500.2500 ####[facility] [address] [place], [address] RBC Normal 4.6-6.2 [facility] Comment on above: Result Comment: Canc elled via OM: Order cancelled - Patient discharged Performed By: #### L 100.0100, L500.2500 ####[facility] [address] [place], [address] RDW CV Normal 11.6-14.6 [facility] Comment on above: Result Comment: Canc elled via OM: Order cancelled - Patient discharged Performed By: #### L 100.0100, L500.2500 ####[facility] [address] [place], [address] RDW SD Normal 35.1-43.9 [facility] Comment on above: Result Comment: Canc elled via OM: Order cancelled - Patient discharged Performed By: #### L 100.0100, L500.2500 ####[facility] [address] [place], [address] WBC Normal 4.4-11.0 [facility] Comment on above: Result Comment: Canc elled via OM: Order cancelled - Patient discharged Performed By: #### L 100.0100, L500.2500 ####[facility] [address] [place], [address] Absolute neutrophil countOrd ered By: Tricia Taylor on 09-30-2024 Neutrophils (Bld) [#/Vol] 7.1 10*3/uL 2.0-7.7 [facility] BUN/creatinine ratioOrdered By: Shanon Bravo on 09-30-2024 Urea nitrogen/Creatinine [Mass ratio] 41.7 mg/mg High 10-20 [facility] Basic Metabolic Profile (BMP )on 09-30-2024 Anion gap [Moles/Vol] 13 mmol/L Normal 5-15 [facility] Comment on above: Performed By: #### L 500.2500 ####[facility] [address] [place], [address] BUN/CRE 41.7 RATIO High 10-20 [facility] Comment on above: Performed By: #### L 500.2500 ####[facility] [address] [place], [address] Calcium [Mass/Vol] 8.3 mg/dL Normal 7.6-11.0 [facility] Comment on above: Performed By: #### L 500.2500 ####[facility] [address] [place], [address] Chloride [Moles/Vol] 107 mmol/L Normal 96-108 [facility] Comment on above: Performed By: #### L 500.2500 ####[facility] [address] [place], [address] CO2 [Moles/Vol] 22.6 mmol/L Normal 22.0-29.0 [facility] Comment on above: Performed By: #### L 500.2500 ####[facility] [address] [place], [address] Creatinine [Mass/Vol] 0.72 mg/dL Normal 0.70-1.20 [facility] Comment on above: Performed By: #### L 500.2500 ####[facility] [address] [place], [address] ECRCL 113.02 ml/min Normal [facility] Comment on above: Performed By: #### L 500.2500 ####[facility] [address] [place], [address] GFR/1.73 sq M.predicted among non-blacks MDRD (S/P/Bld) [Vol rate/Area] 101 mL/min/{1.73_m2} Normal >60 [facility] Comment on above: Result Comment: mL/m in/1.73m2 CKD-EPI Creatinine Equation (2020) Performed By: #### L 500.2500 ####[facility] [address] [place], [address] Glucose [Mass/Vol] 99 mg/dL Normal 70-99 [facility] Comment on above: Performed By: #### L 500.2500 ####[facility] [address] [place], [address] Potassium [Moles/Vol] 3.8 mmol/L Normal 3.3-5.1 [facility] Comment on above: Performed By: #### L 500.2500 ####[facility] [address] [place], [address] Sodium [Moles/Vol] 142 mmol/L Normal 133-145 [facility] Comment on above: Performed By: #### L 500.2500 ####[facility] [address] [place], [address] Urea nitrogen [Mass/Vol] 30 mg/dL High 4-19 [facility] Comment on above: Performed By: #### L 500.2500 ####[facility] [address] [place], [address] BUN/CRE 41.1 RATIO High 10-20 [facility] Comment on above: Result Comment: WILL REORDER Performed By: #### L 500.2500, L100.0100 ####[facility] [address] [place], [address] Creatinine [Mass/Vol] 0.70 mg/dL Normal 0.70-1.20 [facility] Comment on above: Result Comment: WILL REORDER Performed By: #### L 500.2500, L100.0100 ####[facility] [address] [place], [address] ECRCL 113.02 ml/min Normal [facility] Comment on above: Result Comment: WILL REORDER Performed By: #### L 500.2500, L100.0100 ####[facility] [address] [place], [address] GFR/1.73 sq M.predicted among non-blacks MDRD (S/P/Bld) [Vol rate/Area] 102 mL/min/{1.73_m2} Normal >60 [facility] Comment on above: Result Comment: WILL REORDERmL/min/1.73m2 CKD-EPI Creatinine Equation (2020) Performed By: #### L 500.2500, L100.0100 ####[facility] [address] [place], [address] Glucose [Mass/Vol] 102 mg/dL High 70-99 [facility] Comment on above: Result Comment: WILL REORDER Performed By: #### L 500.2500, L100.0100 ####[facility] [address] [place], [address] Urea nitrogen [Mass/Vol] 29 mg/dL High 4-19 [facility] Comment on above: Result Comment: WILL REORDER Performed By: #### L 500.2500, L100.0100 ####[facility] [address] [place], [address] Calcium Normal 7.6-11.0 [facility] Comment on above: Result Comment: WILL REORDER Performed By: #### L 500.2500, L100.0100 ####[facility] [address] [place], [address] CL Normal 98-107 [facility] Comment on above: Result Comment: WILL REORDER Performed By: #### L 500.2500, L100.0100 ####[facility] [address] [place], [address] CO2 Normal 21.0-32.0 [facility] Comment on above: Result Comment: WILL REORDER Performed By: #### L 500.2500, L100.0100 ####[facility] [address] [place], [address] GAP Normal 5-15 [facility] Comment on above: Result Comment: WILL REORDER Performed By: #### L 500.2500, L100.0100 ####[facility] [address] [place], [address] Potassium Normal 3.5-5.1 [facility] Comment on above: Result Comment: WILL REORDER Performed By: #### L 500.2500, L100.0100 ####[facility] [address] [place], [address] Basic Metabolic Profile (BMP) Normal 136-145 [facility] Comment on above: Result Comment: WILL REORDER Performed By: #### L 500.2500, L100.0100 ####[facility] [address] [place], [address] Basophil percentageOrdered B y: Tricia Taylor on 09-30-2024 Basophils/100 WBC (Bld) 0.1 % 0-1 [facility] CBC W/Diff, Automatedon 09-04 Absolute Lymph 2.14 X10 3/uL Normal 0.83-4.51 [facility] Comment on above: Performed By: #### L 500.2500, L100.0100 ####[facility] [address] [place], [address] Absolute Neut 7.1 X10 3/uL Normal 2.0-7.7 [facility] Comment on above: Performed By: #### L 500.2500, L100.0100 ####[facility] [address] [place], [address] Basophils/100 WBC (Bld) 0.1 % Normal 0-1 [facility] Comment on above: Performed By: #### L 500.2500, L100.0100 ####[facility] [address] [place], [address] Eosinophils/100 WBC (Bld) 0.1 % Normal 0-5 [facility] Comment on above: Performed By: #### L 500.2500, L100.0100 ####[facility] [address] [place], [address] Erythrocyte distribution width (RBC) [Ratio] 12.8 % Normal 11.6-14.6 [facility] Comment on above: Performed By: #### L 500.2500, L100.0100 ####[facility] [address] [place], [address] Hematocrit (Bld) [Volume fraction] 35.8 % Low 40-54 [facility] Comment on above: Performed By: #### L 500.2500, L100.0100 ####[facility] [address] [place], [address] Hemoglobin (Bld) [Mass/Vol] 12.3 g/dL Low 13.0-16.5 [facility] Comment on above: Performed By: #### L 500.2500, L100.0100 ####[facility] [address] [place], [address] IG% 0.500 Normal 0.0-0.9 [facility] Comment on above: Result Comment: IG% - Immature Granulocytes (promyelocytes, myelocytes andmetamyelocytes) > 1% indicates that a LEFT SHIFT is Present. Performed By: #### L 500.2500, L100.0100 ####[facility] [address] [place], [address] Lymphocytes/100 WBC (Bld) 20.8 % Normal 19-41 [facility] Comment on above: Performed By: #### L 500.2500, L100.0100 ####[facility] [address] [place], [address] MCH (RBC) [Entitic mass] 33.2 pg High 27.0-32.0 [facility] Comment on above: Performed By: #### L 500.2500, L100.0100 ####[facility] [address] [place], [address] MCHC (RBC) [Mass/Vol] 34.4 g/dL Normal 32-36 [facility] Comment on above: Performed By: #### L 500.2500, L100.0100 ####[facility] [address] [place], [address] MCV (RBC) [Entitic vol] 96.8 fL High 80-94 [facility] Comment on above: Performed By: #### L 500.2500, L100.0100 ####[facility] [address] [place], [address] Monocytes/100 WBC (Bld) 9.7 % Normal 0-10 [facility] Comment on above: Performed By: #### L 500.2500, L100.0100 ####[facility] [address] [place], [address] Neutrophils/100 WBC (Bld) 68.8 % Normal 47-70 [facility] Comment on above: Performed By: #### L 500.2500, L100.0100 ####[facility] [address] [place], [address] Nucleated RBC (Bld) [#/Vol] 0 10*3/uL Normal 0-5 [facility] Comment on above: Performed By: #### L 500.2500, L100.0100 ####[facility] [address] [place], [address] Platelet mean volume (Bld) [Entitic vol] 10.3 fL Normal 6.2-12.0 [facility] Comment on above: Performed By: #### L 500.2500, L100.0100 ####[facility] [address] [place], [address] Platelets (Bld) [#/Vol] 179 10*3/uL Normal 150-450 [facility] Comment on above: Performed By: #### L 500.2500, L100.0100 ####[facility] [address] [place], [address] RBC (Bld) [#/Vol] 3.70 10*6/uL Low 4.6-6.2 [facility] Comment on above: Performed By: #### L 500.2500, L100.0100 ####[facility] [address] [place], [address] RDW SD 45.6 fl High 35.1-43.9 [facility] Comment on above: Performed By: #### L 500.2500, L100.0100 ####[facility] [address] [place], [address] WBC (Bld) [#/Vol] 10.3 10*3/uL Normal 4.4-11.0 [facility] Comment on above: Performed By: #### L 500.2500, L100.0100 ####[facility] [address] [place], [address] Carbon dioxide measurementOr dered By: Shanon Bravo on 09-30-2024 CO2 [Moles/Vol] 22.6 mmol/L 22.0-29.0 [facility] Chloride measurementOrdered By: Shanon Bravo on 09-30-2024 Chloride [Moles/Vol] 107 mmol/L 96-108 [facility] Eosinophil percentageOrdered By: Tricia Taylor on 09-30-2024 Eosinophils/100 WBC (Bld) 0.1 % 0-5 [facility] Erythrocyte distribution wid th (RBC) [Ratio]Ordered By: Tricia Taylor on 09-30-2024 Erythrocyte distribution width (RBC) [Entitic vol] 45.6 fL High 35.1-43.9 [facility] Erythrocyte distribution wid th ratioOrdered By: Tricia Taylor on 09-30-2024 Erythrocyte distribution width (RBC) [Ratio] 12.8 % 11.6-14.6 [facility] Estimation of creatinine brandon aranceOrdered By: Shanon Bravo on 09-30-2024 Estimated Creatinine Clearance Calc 113.02 ml/min [facility] GFR/1.73 sq M.predicted ally g non-blacks MDRD (S/P/Bld) [Vol rate/Area]Ordered By: Shanon Braov on 09-30-2024 Estimated GFR (MDRD) Non-Af Amer 101 >60 [facility] Comment on above: mL/min/1.73m2 CKD-EP I Creatinine Equation (2020) Hematocrit Auto (Bld) [Volum e fraction]Ordered By: Tricia Taylor on 09-30-2024 Hematocrit (Bld) [Volume fraction] 35.8 % Low 40-54 [facility] Hemoglobin measurementOrdere d By: Tricia Taylor on 09-30-2024 Hemoglobin (Bld) [Mass/Vol] 12.3 g/dL Low 13.0-16.5 [facility] Immature granulocytes/100 WB C Auto (Bld)Ordered By: Tricia Taylor on 09-30-2024 Immature granulocytes/100 WBC (Bld) 0.500 % 0.0-0.9 [facility] Comment on above: IG% - Immature Granu locytes (promyelocytes, myelocytes and metamyelocytes) > 1% indicates that a LEFT SHIFT is Present. Lymphocytes Auto (Unsp spec) [#/Vol]Ordered By: Tricia Taylor on 09-30-2024 Lymphocytes (Bld) [#/Vol] 2.14 10*3/uL 0.83-4.51 [facility] Lymphocytes/100 WBC Auto (Un sp spec)Ordered By: Tricia Taylor on 09-30-2024 Lymphocytes/100 WBC (Bld) 20.8 % 19-41 [facility] MCV (mean corpuscular volume ) determinationOrdered By: Tricia Taylor on 09-30-2024 MCV (RBC) [Entitic vol] 96.8 fL High 80-94 [facility] Mean corpuscular hemoglobin (MCH) determinationOrdered By: Tricia Taylor on 09-30-2024 MCH (RBC) [Entitic mass] 33.2 pg High 27.0-32.0 [facility] Mean corpuscular hemoglobin concentration (MCHC) determinationOrdered By: Tricia Taylor on 09-30-2024 MCHC (RBC) [Mass/Vol] 34.4 g/dL 32-36 [facility] Mean platelet volume determi nationOrdered By: Tricia Taylor on 09-30-2024 Platelet mean volume (Bld) [Entitic vol] 10.3 fL 6.2-12.0 [facility] Monocyte percentageOrdered B y: Tricia Taylor on 09-30-2024 Monocytes/100 WBC (Bld) 9.7 % 0-10 [facility] Neutrophil percentageOrdered By: Tricia Taylor on 09-30-2024 Neutrophils/100 WBC (Bld) 68.8 % 47-70 [facility] Nucleated red blood cell per centageOrdered By: Tricia Taylor on 09-30-2024 Nucleated RBC/100 WBC (Bld) [Ratio] 0 % 0-5 [facility] Platelet countOrdered By: John Taylor on 09-30-2024 Platelets (Bld) [#/Vol] 179 10*3/uL 150-450 [facility] RBC Auto (Bld) [#/Vol]Ordere d By: Tricia Taylor on 09-30-2024 RBC (Bld) [#/Vol] 3.70 10*6/uL Low 4.6-6.2 [facility] Serum creatinine measurement (mass/volume)Ordered By: Shanon Bravo on 09-30-2024 Creatinine [Mass/Vol] 0.72 mg/dL 0.70-1.20 [facility] Serum glucose measurement (m ass/volume)Ordered By: Shanon Bravo on 09-30-2024 Glucose [Mass/Vol] 99 mg/dL 70-99 [facility] Serum or plasma anion gap de termination (moles/volume)Ordered By: Shanon Bravo on 09-30-2024 Anion gap [Moles/Vol] 13 mmol/L 5-15 [facility] Serum or plasma calcium jody urement (mass/volume)Ordered By: Shanon Bravo on 09-30-2024 Calcium [Mass/Vol] 8.3 mg/dL 7.6-11.0 [facility] Serum or plasma potassium me asurementOrdered By: Shanon Bravo on 09-30-2024 Potassium [Moles/Vol] 3.8 mmol/L 3.3-5.1 [facility] Serum or plasma sodium measu rement (moles/volume)Ordered By: Shanon Bravo on 09-30-2024 Sodium [Moles/Vol] 142 mmol/L 133-145 [facility] Serum or plasma urea nitroge n measurement (mass/volume)Ordered By: Shanon Bravo on 09-30-2024 Urea nitrogen [Mass/Vol] 30 mg/dL High 4-19 [facility] White blood cell (WBC) count Ordered By: Tricia Taylor on 09-30-2024 WBC (Bld) [#/Vol] 10.3 10*3/uL 4.4-11.0 [facility] Basic Metabolic Profile (BMP )on 09-29-2024 Chloride [Moles/Vol] 107 mmol/L Normal 98-107 [facility] Comment on above: Performed By: #### L 100.0100, L500.2500 ####[facility] [address] [place], [address] CO2 [Moles/Vol] 21.9 mmol/L Normal 21.0-32.0 [facility] Comment on above: Performed By: #### L 100.0100, L500.2500 ####[facility] [address] [place], [address] GAP 11 Normal 5-15 [facility] Comment on above: Performed By: #### L 100.0100, L500.2500 ####[facility] [address] [place], [address] Potassium [Moles/Vol] 4.2 mmol/L Normal 3.5-5.1 [facility] Comment on above: Performed By: #### L 100.0100, L500.2500 ####[facility] [address] [place], [address] Sodium [Moles/Vol] 140 mmol/L Normal 136-145 [facility] Comment on above: Performed By: #### L 100.0100, L500.2500 ####[facility] [address] [place], [address] Calcium [Mass/Vol] 8.5 mg/dL Normal 7.6-11.0 [facility] Comment on above: Performed By: #### L 100.0100, L500.2500 ####[facility] [address] [place], [address] CBC W/Diff, Automatedon 02-2 Absolute Lymph 0.66 X10 3/uL Low 0.83-4.51 [facility] Comment on above: Performed By: #### L 100.0100, L500.2500 ####[facility] [address] [place], [address] Absolute Neut 11.6 X10 3/uL High 2.0-7.7 [facility] Comment on above: Performed By: #### L 100.0100, L500.2500 ####[facility] [address] [place], [address] Basophils/100 WBC (Bld) 0.1 % Normal 0-1 [facility] Comment on above: Performed By: #### L 100.0100, L500.2500 ####[facility] [address] [place], [address] Eosinophils/100 WBC (Bld) 0.0 % Normal 0-5 [facility] Comment on above: Performed By: #### L 100.0100, L500.2500 ####[facility] [address] [place], [address] Erythrocyte distribution width (RBC) [Ratio] 12.8 % Normal 11.6-14.6 [facility] Comment on above: Performed By: #### L 100.0100, L500.2500 ####[facility] [address] [place], [address] Hematocrit (Bld) [Volume fraction] 36.6 % Low 40-54 [facility] Comment on above: Performed By: #### L 100.0100, L500.2500 ####[facility] [address] [place], [address] Hemoglobin (Bld) [Mass/Vol] 12.2 g/dL Low 13.0-16.5 [facility] Comment on above: Performed By: #### L 100.0100, L500.2500 ####[facility] [address] [place], [address] IG% 0.400 Normal 0.0-0.9 [facility] Comment on above: Result Comment: IG% - Immature Granulocytes (promyelocytes, myelocytes andmetamyelocytes) > 1% indicates that a LEFT SHIFT is Present. Performed By: #### L 100.0100, L500.2500 ####[facility] [address] [place], [address] Lymphocytes/100 WBC (Bld) 5.1 % Low 19-41 [facility] Comment on above: Performed By: #### L 100.0100, L500.2500 ####[facility] [address] [place], [address] MCH (RBC) [Entitic mass] 32.3 pg High 27.0-32.0 [facility] Comment on above: Performed By: #### L 100.0100, L500.2500 ####[facility] [address] [place], [address] MCHC (RBC) [Mass/Vol] 33.3 g/dL Normal 32-36 [facility] Comment on above: Performed By: #### L 100.0100, L500.2500 ####[facility] [address] [place], [address] MCV (RBC) [Entitic vol] 96.8 fL High 80-94 [facility] Comment on above: Performed By: #### L 100.0100, L500.2500 ####[facility] [address] [place], [address] Monocytes/100 WBC (Bld) 5.5 % Normal 0-10 [facility] Comment on above: Performed By: #### L 100.0100, L500.2500 ####[facility] [address] [place], [address] Neutrophils/100 WBC (Bld) 88.9 % High 47-70 [facility] Comment on above: Performed By: #### L 100.0100, L500.2500 ####[facility] [address] [place], [address] Nucleated RBC (Bld) [#/Vol] 0 10*3/uL Normal 0-5 [facility] Comment on above: Performed By: #### L 100.0100, L500.2500 ####[facility] [address] [place], [address] Platelet mean volume (Bld) [Entitic vol] 10.1 fL Normal 6.2-12.0 [facility] Comment on above: Performed By: #### L 100.0100, L500.2500 ####[facility] [address] [place], [address] Platelets (Bld) [#/Vol] 183 10*3/uL Normal 150-450 [facility] Comment on above: Performed By: #### L 100.0100, L500.2500 ####[facility] [address] [place], [address] RBC (Bld) [#/Vol] 3.78 10*6/uL Low 4.6-6.2 [facility] Comment on above: Performed By: #### L 100.0100, L500.2500 ####[facility] [address] [place], [address] RDW SD 45.6 fl High 35.1-43.9 [facility] Comment on above: Performed By: #### L 100.0100, L500.2500 ####[facility] [address] [place], [address] WBC (Bld) [#/Vol] 13.0 10*3/uL High 4.4-11.0 [facility] Comment on above: Performed By: #### L 100.0100, L500.2500 ####[facility] [address] [place], [address] Serum or plasma chloride nghia surement (moles/volume)Ordered By: Tricia Taylor on 09-29-2024 Chloride [Moles/Vol] 107 mmol/L 98-107 [facility] Arterial patency Wrist arter y --pre arterial punctureOrdered By: Tricia Taylor on 09-28-2024 Dany Test Positive [facility] Base excess Calc (BldV) [Mol es/Vol]Ordered By: Tricia Taylor on 09-28-2024 Blood Gas Base Excess -2 mmol/L -2-2 [facility] Basic Metabolic Profile (BMP )on 09-28-2024 Chloride [Moles/Vol] 105 mmol/L Normal 98-107 [facility] Comment on above: Performed By: #### L 500.2500, L100.0100 ####[facility] [address] [place], [address] CO2 [Moles/Vol] 21.4 mmol/L Normal 21.0-32.0 [facility] Comment on above: Performed By: #### L 500.2500, L100.0100 ####[facility] [address] [place], [address] GAP 13 Normal 5-15 [facility] Comment on above: Performed By: #### L 500.2500, L100.0100 ####[facility] [address] [place], [address] Potassium [Moles/Vol] 3.8 mmol/L Normal 3.5-5.1 [facility] Comment on above: Performed By: #### L 500.2500, L100.0100 ####[facility] [address] [place], [address] Sodium [Moles/Vol] 139 mmol/L Normal 136-145 [facility] Comment on above: Performed By: #### L 500.2500, L100.0100 ####[facility] [address] [place], [address] Calcium [Mass/Vol] 8.0 mg/dL Normal 7.6-11.0 [facility] Comment on above: Performed By: #### L 500.2500, L100.0100 ####[facility] [address] [place], [address] Blood [facility] by [facility] Base excess Calc (Bld) [Moles/Vol] -3 mmol/L Low -2 to +2 [facility] Comment on above: Order Comment: WAS O RIGINALLY ENTERED VENOUS BUT IS ARTERIAL. CANCELLEDTHOSE RESULTS THEN MANUALLY ENTERED.Results manually entered by WBATDORF DAT INSTRUCTOR and verified byJTHEOBALD DAT INSTRUCTOR Performed By: #### L 0.0800 ####[facility] [address] [place], [address] CO2 [Moles/Vol] 25 mmol/L Normal [facility] Comment on above: Order Comment: WAS O RIGINALLY ENTERED VENOUS BUT IS ARTERIAL. CANCELLEDTHOSE RESULTS THEN MANUALLY ENTERED.Results manually entered by WBATDORF DAT INSTRUCTOR and verified byJTHEOBALD DAT INSTRUCTOR Performed By: #### L 0.0800 ####[facility] [address] [place], [address] HCO3 (Bld) [Moles/Vol] 23.6 mmol/L Normal 22-26 [facility] Comment on above: Order Comment: WAS O RIGINALLY ENTERED VENOUS BUT IS ARTERIAL. CANCELLEDTHOSE RESULTS THEN MANUALLY ENTERED.Results manually entered by ATDO DAT INSTRUCTOR and verified byJTHEOBALD DAT INSTRUCTOR Performed By: #### L 0.0800 ####[facility] [address] [place], [address] pCO2 48.7 mmHg High 35-45 [facility] Comment on above: Order Comment: WAS O RIGINALLY ENTERED VENOUS BUT IS ARTERIAL. CANCELLEDTHOSE RESULTS THEN MANUALLY ENTERED.Results manually entered by WBATDORF DAT INSTRUCTOR and verified byJTHEOBALD DAT INSTRUCTOR Performed By: #### L 9000.0800 ####[facility] [address] [place], [address] pH (Bld) 7.29 [pH] Low 7.35-7.45 [facility] Comment on above: Order Comment: WAS O RIGINALLY ENTERED VENOUS BUT IS ARTERIAL. CANCELLEDTHOSE RESULTS THEN MANUALLY ENTERED.Results manually entered by WBATDORF DAT INSTRUCTOR and verified byJTHEOBALD DAT INSTRUCTOR Performed By: #### L 9000.0800 ####[facility] [address] [place], [address] PO2 67 mmHG Low 75-100 [facility] Comment on above: Order Comment: WAS O RIGINALLY ENTERED VENOUS BUT IS ARTERIAL. CANCELLEDTHOSE RESULTS THEN MANUALLY ENTERED.Results manually entered by WBATDORF DAT INSTRUCTOR and verified byJTHEOBALD DAT INSTRUCTOR Performed By: #### L 9000.0800 ####[facility] [address] [place], [address] SO2 91 Low 95-99 [facility] Comment on above: Order Comment: WAS O RIGINALLY ENTERED VENOUS BUT IS ARTERIAL. CANCELLEDTHOSE RESULTS THEN MANUALLY ENTERED.Results manually entered by WBATDORF DAT INSTRUCTOR and verified byJTHEOBALD DAT INSTRUCTOR Performed By: #### L 9000.0800 ####[facility] [address] [place], [address] FI02 50.0 Normal [facility] Comment on above: Order Comment: WAS O RIGINALLY ENTERED VENOUS BUT IS ARTERIAL. CANCELLEDTHOSE RESULTS THEN MANUALLY ENTERED.Results manually entered by WBATDO DAT INSTRUCTOR and verified byJTHEOBALD DAT INSTRUCTOR Performed By: #### L 9000.0800 ####[facility] [address] [place], [address] PEEP 5 Normal [facility] Comment on above: Order Comment: WAS O RIGINALLY ENTERED VENOUS BUT IS ARTERIAL. CANCELLEDTHOSE RESULTS THEN MANUALLY ENTERED.Results manually entered by WBATDORF DAT INSTRUCTOR and verified byJTHEOBALD DAT INSTRUCTOR Performed By: #### L 9000.0800 ####[facility] [address] [place], [address] RR 12 Normal [facility] Comment on above: Order Comment: WAS O RIGINALLY ENTERED VENOUS BUT IS ARTERIAL. CANCELLEDTHOSE RESULTS THEN MANUALLY ENTERED.Results manually entered by WBATDORF DAT INSTRUCTOR and verified byJTHEOBALD DAT INSTRUCTOR Performed By: #### L 9000.0800 ####[facility] [address] [place], [address] DANY TEST Positive Normal [facility] Comment on above: Order Comment: WAS O RIGINALLY ENTERED VENOUS BUT IS ARTERIAL. CANCELLEDTHOSE RESULTS THEN MANUALLY ENTERED.Results manually entered by WBATDORF DAT INSTRUCTOR and verified byJTHEOBALD DAT INSTRUCTOR Performed By: #### L 9000.0800 ####[facility] [address] [place], [address] Mode A-C Normal [facility] Comment on above: Order Comment: WAS O RIGINALLY ENTERED VENOUS BUT IS ARTERIAL. CANCELLEDTHOSE RESULTS THEN MANUALLY ENTERED.Results manually entered by WBATDO DAT INSTRUCTOR and verified byJTHEOBALD DAT INSTRUCTOR Performed By: #### L 9000.0800 ####[facility] [address] [place], [address] O2 Delivery Dev Vent Normal [facility] Comment on above: Order Comment: WAS O RIGINALLY ENTERED VENOUS BUT IS ARTERIAL. CANCELLEDTHOSE RESULTS THEN MANUALLY ENTERED.Results manually entered by ATDORF DAT INSTRUCTOR and verified byJTHEOBALD DAT INSTRUCTOR Performed By: #### L 9000.0800 ####[facility] [address] [place], [address] SITE L RADIAL Normal [facility] Comment on above: Order Comment: WAS O RIGINALLY ENTERED VENOUS BUT IS ARTERIAL. CANCELLEDTHOSE RESULTS THEN MANUALLY ENTERED.Results manually entered by ATDORF DAT INSTRUCTOR and verified byJTHEOBALD DAT INSTRUCTOR Performed By: #### L 9000.0800 ####[facility] [address] [place], [address] Vt 500.0 mL [facility] Comment on above: Order Comment: WAS O RIGINALLY ENTERED VENOUS BUT IS ARTERIAL. CANCELLEDTHOSE RESULTS THEN MANUALLY ENTERED.Results manually entered by WBATDORF DAT INSTRUCTOR and verified byJTHEOBALD DAT INSTRUCTOR Performed By: #### L 9000.0800 ####[facility] [address] [place], [address] Blood Gas Type ART Normal [facility] Comment on above: Order Comment: WAS O RIGINALLY ENTERED VENOUS BUT IS ARTERIAL. CANCELLEDTHOSE RESULTS THEN MANUALLY ENTERED.Results manually entered by ANGEL DAT INSTRUCTOR and verified byGARRY DAT INSTRUCTOR Performed By: #### L 9000.0800 ####[facility] [address] [place], [address] DANY TEST Positive Normal [facility] Comment on above: Performed By: #### L 9000.0800 ####[facility] [address] [place], [address] Base excess Calc (Bld) [Moles/Vol] -2 mmol/L Normal -2 to +2 [facility] Comment on above: Performed By: #### L 9000.0800 ####[facility] [address] [place], [address] Blood Gas Type ART Normal [facility] Comment on above: Performed By: #### L 9000.0800 ####[facility] [address] [place], [address] CO2 [Moles/Vol] 24 mmol/L Normal [facility] Comment on above: Performed By: #### L 9000.0800 ####[facility] [address] [place], [address] FI02 30.0 Normal [facility] Comment on above: Performed By: #### L 9000.0800 ####[facility] [address] [place], [address] HCO3 (Bld) [Moles/Vol] 23.2 mmol/L Normal 22-26 [facility] Comment on above: Performed By: #### L 9000.0800 ####[facility] [address] [place], [address] Mode AC Normal [facility] Comment on above: Performed By: #### L 9000.0800 ####[facility] [address] [place], [address] O2 Delivery Dev Adult Vent Normal [facility] Comment on above: Performed By: #### L 0.0800 ####[facility] [address] [place], [address] pCO2 40.5 mmHg Normal 35-45 [facility] Comment on above: Performed By: #### L 0.0800 ####[facility] [address] [place], [address] PEEP 5 Normal [facility] Comment on above: Performed By: #### L 0.0800 ####[facility] [address] [place], [address] pH (Bld) 7.37 [pH] Normal 7.35-7.45 [facility] Comment on above: Performed By: #### L 0.0800 ####[facility] [address] [place], [address] PO2 60 mmHG Low 75-100 [facility] Comment on above: Performed By: #### L 0.0800 ####[facility] [address] [place], [address] RR 12 Normal [facility] Comment on above: Performed By: #### L 8999.0800 ####[facility] [address] [place], [address] SITE L Radial Normal [facility] Comment on above: Performed By: #### L 8999.0800 ####[facility] [address] [place], [address] SO2 90 Low 95-99 [facility] Comment on above: Performed By: #### L 0.0800 ####[facility] [address] [place], [address] Vt 500.0 mL Normal [facility] Comment on above: Performed By: #### L 9000.0800 ####[facility] [address] [place], [address] Blood bicarbonate measuremen tOrdered By: Tricia Taylor on 09-28-2024 Blood Gas Bicarbonate Actual 23.2 mmol/L [facility] CBC W/Diff, Automatedon 09-04 Absolute Lymph 0.69 X10 3/uL Low 0.83-4.51 [facility] Comment on above: Performed By: #### L 500.2500, L100.0100 ####[facility] [address] [place], [address] Absolute Neut 10.6 X10 3/uL High 2.0-7.7 [facility] Comment on above: Performed By: #### L 500.2500, L100.0100 ####[facility] [address] [place], [address] Basophils/100 WBC (Bld) 0.2 % Normal 0-1 [facility] Comment on above: Performed By: #### L 500.2500, L100.0100 ####[facility] [address] [place], [address] Eosinophils/100 WBC (Bld) 0.0 % Normal 0-5 [facility] Comment on above: Performed By: #### L 500.2500, L100.0100 ####[facility] [address] [place], [address] Erythrocyte distribution width (RBC) [Ratio] 12.4 % Normal 11.6-14.6 [facility] Comment on above: Performed By: #### L 500.2500, L100.0100 ####[facility] [address] [place], [address] Hematocrit (Bld) [Volume fraction] 38.8 % Low 40-54 [facility] Comment on above: Performed By: #### L 500.2500, L100.0100 ####[facility] [address] [place], [address] Hemoglobin (Bld) [Mass/Vol] 13.0 g/dL Normal 13.0-16.5 [facility] Comment on above: Performed By: #### L 500.2500, L100.0100 ####[facility] [address] [place], [address] IG% 0.500 Normal 0.0-0.9 [facility] Comment on above: Result Comment: IG% - Immature Granulocytes (promyelocytes, myelocytes andmetamyelocytes) > 1% indicates that a LEFT SHIFT is Present. Performed By: #### L 500.2500, L100.0100 ####[facility] [address] [place], [address] Lymphocytes/100 WBC (Bld) 5.7 % Low 19-41 [facility] Comment on above: Performed By: #### L 500.2500, L100.0100 ####[facility] [address] [place], [address] MCH (RBC) [Entitic mass] 32.8 pg High 27.0-32.0 [facility] Comment on above: Performed By: #### L 500.2500, L100.0100 ####[facility] [address] [place], [address] MCHC (RBC) [Mass/Vol] 33.5 g/dL Normal 32-36 [facility] Comment on above: Performed By: #### L 500.2500, L100.0100 ####[facility] [address] [place], [address] MCV (RBC) [Entitic vol] 98.0 fL High 80-94 [facility] Comment on above: Performed By: #### L 500.2500, L100.0100 ####[facility] [address] [place], [address] Monocytes/100 WBC (Bld) 6.3 % Normal 0-10 [facility] Comment on above: Performed By: #### L 500.2500, L100.0100 ####[facility] [address] [place], [address] Neutrophils/100 WBC (Bld) 87.3 % High 47-70 [facility] Comment on above: Performed By: #### L 500.2500, L100.0100 ####[facility] [address] [place], [address] Nucleated RBC (Bld) [#/Vol] 0 10*3/uL Normal 0-5 [facility] Comment on above: Performed By: #### L 500.2500, L100.0100 ####[facility] [address] [place], [address] Platelet mean volume (Bld) [Entitic vol] 10.0 fL Normal 6.2-12.0 [facility] Comment on above: Performed By: #### L 500.2500, L100.0100 ####[facility] [address] [place], [address] Platelets (Bld) [#/Vol] 158 10*3/uL Normal 150-450 [facility] Comment on above: Performed By: #### L 500.2500, L100.0100 ####[facility] [address] [place], [address] RBC (Bld) [#/Vol] 3.96 10*6/uL Low 4.6-6.2 [facility] Comment on above: Performed By: #### L 500.2500, L100.0100 ####[facility] [address] [place], [address] RDW SD 44.9 fl High 35.1-43.9 [facility] Comment on above: Performed By: #### L 500.2500, L100.0100 ####[facility] [address] [place], [address] WBC (Bld) [#/Vol] 12.1 10*3/uL High 4.4-11.0 [facility] Comment on above: Performed By: #### L 500.2500, L100.0100 ####[facility] [address] [place], [address] CPK Total, Creatine Kinaseon 09-28-2024 CPK TOTAL 197 U/L High 24-195 [facility] Comment on above: Order Comment: Comme nts: DC when propofol is d/c'd Performed By: #### L 501.3620, L501.5000 ####[facility] [address] [place], [address] Determination of fraction of inspired oxygenOrdered By: Tricia Taylor on 09-28-2024 Blood Gas Oxygen Percent 30.0 [facility] No Panel InformationOrdered By: Tricia Taylor on 09-28-2024 Bedside Blood Gas PEEP 5 [facility] Blood Gas Respiration Rate 12 [facility] Blood Gas Sample Site L Radial [facility] Blood Gas Specimen Type ART [facility] Blood Gas Tidal Volume 500.0 mL [facility] Blood Gas Vent Mode AC [facility] Oxygen Delivery Device Adult Vent [facility] Oxygen saturation measuremen tOrdered By: Tricia Taylor on 09-28-2024 Blood Gas Oxygen Saturation 90 % Low 95-99 [facility] Partial pressure of carbon d ioxide measurementOrdered By: Tricia Taylor on 09-28-2024 Arterial Blood Partial Pressure CO2 40.5 mmHg 35-45 [facility] Partial pressure of oxygen m easurementOrdered By: Tricia Taylor on 09-28-2024 Arterial Blood Partial Pressure O2 60 mmHG Low 75-100 [facility] Serum or plasma creatine kin ase activityOrdered By: Chris Mascorro on 09-28-2024 CK [Catalytic activity/Vol] 197 U/L High 24-195 [facility] Total carbon dioxide measure mentOrdered By: Tricia Taylor on 09-28-2024 Blood Gas Total CO2 24 mmol/L [facility] Triglycerideson 09-28-2024 Triglyceride [Mass/Vol] 321 mg/dL High [facility] Comment on above: Order Comment: Comme nts: DC when propofol is d/c'dDC when propofol is d/c'd Result Comment: The drugs N-Acetylcysteine and Metamizole may falselydepress this assay.Normal range: <150 mg/dLBorderline High: 150-199 mg/dLHigh: 200-499 mg/dLVery High: >500 mg/dL Performed By: #### L 501.3620, L501.5000 ####[facility] [address] [place], [address] Triglycerides measurementOrd ered By: Chris Mascorro on 09-28-2024 Triglyceride [Mass/Vol] 321 mg/dL High <199 [facility] Comment on above: The drugs N-Acetylcy steine and Metamizole may falsely depress this assay. Normal range: <150 mg/dLBorderline High: 150-199 mg/dLHigh: 200-499 mg/dLVery High: >500 mg/dL Venous Blood Gason Blood Gas Type ART Normal [facility] Comment on above: Order Comment: Arter ial blood gas was entered as a venous blood gas.Results manually entered by BALA DAT INSTRUCTOR AND VERIFIED BYANGEL DAT INSTRUCTOR ON 09/28/2024 AT 0645. Result Comment: Pratima rial blood gas was entered as a venous blood gas. AMENDED REPORT 09/28/24 0639 BLD GAS TYPE previously reported as: VENblood gas. Performed By: #### L 9000.0810 ####[facility] [address] [place], [place], [address] pH (Unsp spec)Ordered By: John Taylor on 09-28-2024 Blood Gas pH 7.37 7.35-7.45 [facility] Blood Gases by CPSon 025 Base excess Calc (Bld) [Moles/Vol] -2 mmol/L Normal -2 to +2 [facility] Comment on above: Performed By: #### L 8999.0800 ####[facility] [address] [place], [address] Blood Gas Type ART Normal [facility] Comment on above: Performed By: #### L 8999.0800 ####[facility] [address] [place], [address] CO2 [Moles/Vol] 25 mmol/L Normal [facility] Comment on above: Performed By: #### L 8999.0800 ####[facility] [address] [place], [address] FI02 50.0 Normal [facility] Comment on above: Performed By: #### L 8999.0800 ####[facility] [address] [place], [address] HCO3 (Bld) [Moles/Vol] 23.9 mmol/L Normal 22-26 [facility] Comment on above: Performed By: #### L 8999.0800 ####[facility] [address] [place], [address] Mode Not entered Normal [facility] Comment on above: Performed By: #### L 8999.0800 ####[facility] [address] [place], [address] O2 Delivery Dev Venti Mask Normal [facility] Comment on above: Performed By: #### L 8999.0800 ####[facility] [address] [place], [address] pCO2 41.9 mmHg Normal 35-45 [facility] Comment on above: Performed By: #### L 8999.0800 ####[facility] [address] [place], [address] pH (Bld) 7.36 [pH] Normal 7.35-7.45 [facility] Comment on above: Performed By: #### L 9000.0800 ####[facility] [address] [place], [address] PO2 70 mmHG Low 75-100 [facility] Comment on above: Performed By: #### L 9000.0800 ####[facility] [address] [place], [address] SITE R Brach Normal [facility] Comment on above: Performed By: #### L 9000.0800 ####[facility] [address] [place], [address] SO2 93 Low 95-99 [facility] Comment on above: Performed By: #### L 9000.0800 ####[facility] [address] [place], [address] CBC W/Diff, Automatedon 02-2 5-2024 Absolute Lymph 0.80 X10 3/uL Low 0.83-4.51 [facility] Comment on above: Performed By: #### L 100.0100 ####[facility] [address] [place], [address] Absolute Neut 7.2 X10 3/uL Normal 2.0-7.7 [facility] Comment on above: Performed By: #### L 100.0100 ####[facility] [address] [place], [address] Basophils/100 WBC (Bld) 0.5 % Normal 0-1 [facility] Comment on above: Performed By: #### L 100.0100 ####[facility] [address] [place], [address] Eosinophils/100 WBC (Bld) 0.5 % Normal 0-5 [facility] Comment on above: Performed By: #### L 100.0100 ####[facility] [address] [place], [address] Erythrocyte distribution width (RBC) [Ratio] 12.4 % Normal 11.6-14.6 [facility] Comment on above: Performed By: #### L 100.0100 ####[facility] [address] [place], [address] Hematocrit (Bld) [Volume fraction] 42.8 % Normal 40-54 [facility] Comment on above: Performed By: #### L 100.0100 ####[facility] [address] [place], [address] Hemoglobin (Bld) [Mass/Vol] 14.4 g/dL Normal 13.0-16.5 [facility] Comment on above: Performed By: #### L 100.0100 ####[facility] [address] [place], [address] IG% 0.500 Normal 0.0-0.9 [facility] Comment on above: Result Comment: IG% - Immature Granulocytes (promyelocytes, myelocytes andmetamyelocytes) > 1% indicates that a LEFT SHIFT is Present. Performed By: #### L 100.0100 ####[facility] [address] [place], [address] Lymphocytes/100 WBC (Bld) 9.2 % Low 19-41 [facility] Comment on above: Performed By: #### L 100.0100 ####[facility] [address] [place], [address] MCH (RBC) [Entitic mass] 32.4 pg High 27.0-32.0 [facility] Comment on above: Performed By: #### L 100.0100 ####[facility] [address] [place], [address] MCHC (RBC) [Mass/Vol] 33.6 g/dL Normal 32-36 [facility] Comment on above: Performed By: #### L 100.0100 ####[facility] [address] [place], [address] MCV (RBC) [Entitic vol] 96.2 fL High 80-94 [facility] Comment on above: Performed By: #### L 100.0100 ####[facility] [address] [place], [address] Monocytes/100 WBC (Bld) 5.7 % Normal 0-10 [facility] Comment on above: Performed By: #### L 100.0100 ####[facility] [address] [place], [address] Neutrophils/100 WBC (Bld) 83.6 % High 47-70 [facility] Comment on above: Performed By: #### L 100.0100 ####[facility] [address] [place], [address] Nucleated RBC (Bld) [#/Vol] 0 10*3/uL Normal 0-5 [facility] Comment on above: Performed By: #### L 100.0100 ####[facility] [address] [place], [address] Platelet mean volume (Bld) [Entitic vol] 9.9 fL Normal 6.2-12.0 [facility] Comment on above: Performed By: #### L 100.0100 ####[facility] [address] [place], [address] Platelets (Bld) [#/Vol] 175 10*3/uL Normal 150-450 [facility] Comment on above: Performed By: #### L 100.0100 ####[facility] [address] [place], [address] RBC (Bld) [#/Vol] 4.45 10*6/uL Low 4.6-6.2 [facility] Comment on above: Performed By: #### L 100.0100 ####[facility] [address] [place], [address] RDW SD 43.9 fl Normal 35.1-43.9 [facility] Comment on above: Performed By: #### L 100.0100 ####[facility] [address] [place], [address] WBC (Bld) [#/Vol] 8.7 10*3/uL Normal 4.4-11.0 [facility] Comment on above: Performed By: #### L 100.0100 ####[facility] [address] [place], [address] Chest 1 Viewon 09-27-2024 Chest 1 View Normal [facility] Consultation - Intensiviston 09-27-2024 Consultation - House Nurse Normal [facility] Hip 1 view with Pelvison Hip 1 view with Pelvis Normal [facility] Hip Min 2 Views (Portable)on 09-27-2024 Hip Min 2 Views (Portable) Normal [facility] Operative Reporton 5 Operative Report Normal [facility] Soft Tissue Neck without Con mike 09-27-2024 Soft Tissue Neck without Contr Normal [facility] Type AND Screenon 09-27-2024 Ab SCREEN GEL Negative Normal [facility] Comment on above: Order Comment: S Performed By: #### B TS ####[facility] [address] [place], [address] Venous Blood Gason 5 CO2 [Moles/Vol] 25 mmol/L Normal 23-33 [facility] Comment on above: Order Comment: Arter ial blood gas was entered as a venous blood gas.Results manually entered by ИРИНАNJFEMI DAT INSTRUCTOR AND VERIFIED BYANGEL DAT INSTRUCTOR ON 09/28/2024 AT 0645. Result Comment: Pratima rial blood gas was entered as a venous blood gas. Performed By: #### L 9000.0810 ####[facility] [address] [place], [place], [id number] FI02 50.0 Normal [facility] Comment on above: Order Comment: Arter ial blood gas was entered as a venous blood gas.Results manually entered by DJOHNSON DAT INSTRUCTOR AND VERIFIED BYWBATRF DAT INSTRUCTOR ON 09/28/2024 AT 0645. Result Comment: Pratima rial blood gas was entered as a venous blood gas. Performed By: #### L 9000.0810 ####[facility] [address] [place], [address] HCO3 (Bld) [Moles/Vol] 24 mmol/L Normal -26 [facility] Comment on above: Order Comment: Arter ial blood gas was entered as a venous blood gas.Results manually entered by DJOHNSON DAT INSTRUCTOR AND VERIFIED BYWBATDO DAT INSTRUCTOR ON 09/28/2024 AT 0645. Result Comment: Pratima rial blood gas was entered as a venous blood gas. Performed By: #### L 9000.0810 ####[facility] [address] [place], [address] O2 Delivery Dev Adult Vent Normal [facility] Comment on above: Order Comment: Arter ial blood gas was entered as a venous blood gas.Results manually entered by DJNJNSON DAT INSTRUCTOR AND [facility]IFIED [facility] DAT INSTRUCTOR ON 09/28/2024 AT 0645. Result Comment: Pratima rial blood gas was entered as a venous blood gas. Performed By: #### L 9000.0810 ####[facility] [address] [place], [place], [id number] PEEP 5 [facility] Comment on above: Order Comment: Arter ial blood gas was entered as a venous blood gas.Results manually entered by DJOHNSON DAT INSTRUCTOR AND VERIFIED BYWBATDORF DAT INSTRUCTOR ON 09/28/2024 AT 0645. Result Comment: Pratima rial blood gas was entered as a venous blood gas. Performed By: #### L 9000.0810 ####[facility] [address] [place], [address] RR 12 Normal [facility] Comment on above: Order Comment: Arter ial blood gas was entered as a venous blood gas.Results manually entered by [facility] DAT INSTRUCTOR AND VERIFIED [facility]WBATABB[facility] DAT INSTRUCTOR ON 09/28/2024 AT 0645. Result Comment: Pratima rial blood gas was entered as a venous blood gas. Performed By: #### L 9000.0810 ####[facility] [address] [place], [place], [id number] SITE L Radial Normal [facility] Comment on above: Order Comment: Arter ial blood gas was entered as a venous blood gas.Results manually entered by [facility] DAT INSTRUCTOR AND [facility] DAT INSTRUCTOR ON 09/28/2024 AT 0645. Result Comment: Pratima rial blood gas was entered as a venous blood gas. Performed By: #### L 9000.0810 ####[facility] [address] [place], [place], [id number] VBG BE -3 mmol/L Low -1.0-3.5 [facility] Comment on above: Order Comment: Arter ial blood gas was entered as a venous blood gas.Results manually entered by [facility] DAT INSTRUCTOR AND [facility] DAT INSTRUCTOR ON 09/28/2024 AT 0645. Result Comment: Pratima rial blood gas was entered as a venous blood gas. Performed By: #### L 9000.0810 ####[facility] [address] [place], [place], [id number] VBG pCO2 48.7 mmHg Normal 41-51 [facility] Comment on above: Order Comment: Arter ial blood gas was entered as a venous blood gas.Results manually entered by [facility] DAT INSTRUCTOR AND [facility] DAT INSTRUCTOR ON 09/28/2024 AT 0645. Result Comment: Pratima rial blood gas was entered as a venous blood gas. Performed By: #### L 9000.0810 ####[facility] [address] [place], [place], [id number] VBG pH 7.29 Low 7.32-7.42 [facility] Comment on above: Order Comment: Arter ial blood gas was entered as a venous blood gas.Results manually entered by [facility] DAT INSTRUCTOR AND VERIFIED [facility]WBATABB[facility] DAT INSTRUCTOR ON 09/28/2024 AT 0645. Result Comment: Pratima rial blood gas was entered as a venous blood gas. Performed By: #### L 9000.0810 ####[facility] [address] [place], [place], [id number] VBG PO2 67 mmHg High 25-40 [facility] Comment on above: Order Comment: Arter ial blood gas was entered as a venous blood gas.Results manually entered by [facility] DAT INSTRUCTOR AND [facility]IF[facility] DAT INSTRUCTOR ON 09/28/2024 AT 0645. Result Comment: Pratima rial blood gas was entered as a venous blood gas. Performed By: #### L 9000.0810 ####[facility] [address] [place], [address] VBG SO2 91 High 50-70 [facility] Comment on above: Order Comment: Arter ial blood gas was entered as a venous blood gas.Results manually entered by [facility] DAT INSTRUCTOR AND VERIFIED [facility] DAT INSTRUCTOR ON 09/28/2024 AT 0645. Result Comment: Pratima rial blood gas was entered as a venous blood gas. Performed By: #### L 9000.0810 ####[facility] [address] [place], [place], [id number] Vt 500.0 mL Normal [facility] Comment on above: Order Comment: Arter ial blood gas was entered as a venous blood gas.Results manually entered by [facility] INSTRUCTOR AND [facility] DAT INSTRUCTOR ON 09/28/2024 AT 0645. Result Comment: Pratima rial blood gas was entered as a venous blood gas. Performed By: #### L 9000.0810 ####[facility] [address] [place], [address] 12 Lead EKGon 09-26-2024 12 Lead EKG Normal [facility] 51-[id number] DOrdered By: Natalie Luther on 09-26-2024 Vitamin D 25-Hydroxy 25.4 ng/mL [facility] Comment on above: Vitamin D 25(OH) Sta tus Range Deficiency <20 ng/mL (50nmol/L) Insufficiency 20 - 30 ng/mL (50 - 75 nmol/L) Sufficiency 30 - 100 ng/mL (75 - 250 nmol/L) Toxicity >100 ng/mL (>250 nmol/L) Albumin to globulin ratioOrd ered By: Jean Claude Luther on 09-26-2024 Albumin/Globulin [Mass ratio] 1.1 {ratio} 0.9-2.4 [facility] Basic Metabolic Profile (BMP )on 09-26-2024 BUN/CRE 17.2 RATIO Normal 10-20 [facility] Comment on above: Performed By: #### L 100.0100, L500.2500 ####[facility] [address] [place], [address] CA,Total 8.9 mg/dL Normal 8.5-10.1 [facility] Comment on above: Performed By: #### L 100.0100, L500.2500 ####[facility] [address] [place], [address] Chloride [Moles/Vol] 107 mmol/L Normal 98-107 [facility] Comment on above: Performed By: #### L 100.0100, L500.2500 ####[facility] [address] [place], [address] CO2 [Moles/Vol] 27.0 mmol/L Normal 21.0-32.0 [facility] Comment on above: Performed By: #### L 100.0100, L500.2500 ####[facility] [address] [place], [address] Creatinine [Mass/Vol] 0.76 mg/dL Normal 0.70-1.30 [facility] Comment on above: Result Comment: The validity of the calculated GFR GFRAA in patients over70 years has not been determined. Clinical correlation isessential. Performed By: #### L 100.0100, L500.2500 ####[facility] [address] [place], [address] ECRCL 125.10 ml/min Normal [facility] Comment on above: Performed By: #### L 100.0100, L500.2500 ####[facility] [address] [place], [address] EST GFR - AA 133 mL/min Normal >60 [facility] Comment on above: Result Comment: Afri can Spanish GFR Calc Performed By: #### L 100.0100, L500.2500 ####[facility] [address] [place], [address] GAP 5 Normal 5-15 [facility] Comment on above: Performed By: #### L 100.0100, L500.2500 ####[facility] [address] [place], [address] GFR/1.73 sq M.predicted among non-blacks MDRD (S/P/Bld) [Vol rate/Area] 110 mL/min/{1.73_m2} Normal >60 [facility] Comment on above: Result Comment: Non- GFR Calc Performed By: #### L 100.0100, L500.2500 ####[facility] [address] [place], [address] Glucose [Mass/Vol] 111 mg/dL High 74-106 [facility] Comment on above: Result Comment: Fast ing Glucose result from 100 to 125 mg/dLsuggests IMPAIRED HOMEOSTASIS per A.D.A. criteria. Performed By: #### L 100.0100, L500.2500 ####[facility] [address] [place], [address] Potassium [Moles/Vol] 4.2 mmol/L Normal 3.5-5.1 [facility] Comment on above: Performed By: #### L 100.0100, L500.2500 ####[facility] [address] [place], [address] Sodium [Moles/Vol] 139 mmol/L Normal 136-145 [facility] Comment on above: Performed By: #### L 100.0100, L500.2500 ####[facility] [address] [place], [address] Urea nitrogen [Mass/Vol] 13 mg/dL Normal 7-18 [facility] Comment on above: Performed By: #### L 100.0100, L500.2500 ####[facility] [address] [place], [address] Bilirubin, totalOrdered By: Jean Claude Luther on 09-26-2024 Bilirubin [Mass/Vol] 0.50 mg/dL 0.20-1.00 [facility] Comment on above: For patients on eltr ombopag therapy, use of Dimension [place] TBIL is not recommended. CBC W/Diff, Automatedon 09-04 Absolute Lymph 2.67 X10 3/uL Normal 0.83-4.51 [facility] Comment on above: Performed By: #### L 100.0100, L500.2500 ####[facility] [address] [place], [address] Absolute Neut 3.3 X10 3/uL Normal 2.0-7.7 [facility] Comment on above: Performed By: #### L 100.0100, L500.2500 ####[facility] [address] [place], [address] Basophils/100 WBC (Bld) 1.3 % High 0-1 [facility] Comment on above: Performed By: #### L 100.0100, L500.2500 ####[facility] [address] [place], [address] Eosinophils/100 WBC (Bld) 1.9 % Normal 0-5 [facility] Comment on above: Performed By: #### L 100.0100, L500.2500 ####[facility] [address] [place], [address] Erythrocyte distribution width (RBC) [Ratio] 12.1 % Normal 11.6-14.6 [facility] Comment on above: Performed By: #### L 100.0100, L500.2500 ####[facility] [address] [place], [address] Hematocrit (Bld) [Volume fraction] 43.3 % Normal 40-54 [facility] Comment on above: Performed By: #### L 100.0100, L500.2500 ####[facility] [address] [place], [address] Hemoglobin (Bld) [Mass/Vol] 14.9 g/dL Normal 13.0-16.5 [facility] Comment on above: Performed By: #### L 100.0100, L500.2500 ####[facility] [address] [place], [address] IG% 0.300 Normal 0.0-0.9 [facility] Comment on above: Result Comment: IG% - Immature Granulocytes (promyelocytes, myelocytes andmetamyelocytes) > 1% indicates that a LEFT SHIFT is Present. Performed By: #### L 100.0100, L500.2500 ####[facility] [address] [place], [address] Lymphocytes/100 WBC (Bld) 39.1 % Normal 19-41 [facility] Comment on above: Performed By: #### L 100.0100, L500.2500 ####[facility] [address] [place], [address] MCH (RBC) [Entitic mass] 32.7 pg High 27.0-32.0 [facility] Comment on above: Performed By: #### L 100.0100, L500.2500 ####[facility] [address] [place], [address] MCHC (RBC) [Mass/Vol] 34.4 g/dL Normal 32-36 [facility] Comment on above: Performed By: #### L 100.0100, L500.2500 ####[facility] [address] [place], [address] MCV (RBC) [Entitic vol] 95.0 fL High 80-94 [facility] Comment on above: Performed By: #### L 100.0100, L500.2500 ####[facility] [address] [place], [address] Monocytes/100 WBC (Bld) 8.9 % Normal 0-10 [facility] Comment on above: Performed By: #### L 100.0100, L500.2500 ####[facility] [address] [place], [address] Neutrophils/100 WBC (Bld) 48.5 % Normal 47-70 [facility] Comment on above: Performed By: #### L 100.0100, L500.2500 ####[facility] [address] [place], [address] Nucleated RBC (Bld) [#/Vol] 0 10*3/uL Normal 0-5 [facility] Comment on above: Performed By: #### L 100.0100, L500.2500 ####[facility] [address] [place], [address] Platelet mean volume (Bld) [Entitic vol] 9.6 fL Normal 6.2-12.0 [facility] Comment on above: Performed By: #### L 100.0100, L500.2500 ####[facility] [address] [place], [address] Platelets (Bld) [#/Vol] 223 10*3/uL Normal 150-450 [facility] Comment on above: Performed By: #### L 100.0100, L500.2500 ####[facility] [address] [place], [address] RBC (Bld) [#/Vol] 4.56 10*6/uL Low 4.6-6.2 [facility] Comment on above: Performed By: #### L 100.0100, L500.2500 ####[facility] [address] [place], [address] RDW SD 42.5 fl Normal 35.1-43.9 [facility] Comment on above: Performed By: #### L 100.0100, L500.2500 ####[facility] [address] [place], [address] WBC (Bld) [#/Vol] 6.8 10*3/uL Normal 4.4-11.0 [facility] Comment on above: Performed By: #### L 100.0100, L500.2500 ####[facility] [address] [place], [address] Chest 1 Viewon 09-26-2024 Chest 1 View Normal [facility] Comprehensive Metabolic Prof ilon 09-26-2024 Albumin [Mass/Vol] 3.6 g/dL Normal 3.2-5.0 [facility] Comment on above: Performed By: #### L 500.4050, L506.1000 ####[facility] [address] [place], [address] Albumin/Globulin [Mass ratio] 1.1 {ratio} Normal 0.9-2.4 [facility] Comment on above: Performed By: #### L 500.4050, L506.1000 ####[facility] [address] [place], [address] ALK P 67 U/L Normal 45-117 [facility] Comment on above: Performed By: #### L 500.4050, L506.1000 ####[facility] [address] [place], [address] ALT [Catalytic activity/Vol] 20 U/L Normal 16-61 [facility] Comment on above: Performed By: #### L 500.4050, L506.1000 ####[facility] [address] [place], [address] AST [Catalytic activity/Vol] 17 U/L Normal 15-37 [facility] Comment on above: Performed By: #### L 500.4050, L506.1000 ####[facility] [address] [place], [address] Bilirubin [Mass/Vol] 0.50 mg/dL Normal 0.20-1.00 [facility] Comment on above: Result Comment: For patients on eltrombopag therapy, use of Dimension [place] TBIL is not recommended. Performed By: #### L 500.4050, L506.1000 ####[facility] [address] [place], [address] BUN/CRE 17.1 RATIO Normal 10-20 [facility] Comment on above: Performed By: #### L 500.4050, L506.1000 ####[facility] [address] [place], [address] CA,Total 8.8 mg/dL Normal 8.5-10.1 [facility] Comment on above: Performed By: #### L 500.4050, L506.1000 ####[facility] [address] [place], [address] Chloride [Moles/Vol] 108 mmol/L High 98-107 [facility] Comment on above: Performed By: #### L 500.4050, L506.1000 ####[facility] [address] [place], [address] CO2 [Moles/Vol] 25.0 mmol/L Normal 21.0-32.0 [facility] Comment on above: Performed By: #### L 500.4050, L506.1000 ####[facility] [address] [place], [address] Creatinine [Mass/Vol] 0.82 mg/dL Normal 0.70-1.30 [facility] Comment on above: Result Comment: The validity of the calculated GFR GFRAA in patients over70 years has not been determined. Clinical correlation isessential. Performed By: #### L 500.4050, L506.1000 ####[facility] [address] [place], [address] ECRCL 110.26 ml/min Normal [facility] Comment on above: Performed By: #### L 500.4050, L506.1000 ####[facility] [address] [place], [address] EST GFR - AA 121 mL/min Normal >60 [facility] Comment on above: Result Comment: Afri can Spanish GFR Calc Performed By: #### L 500.4050, L506.1000 ####[facility] [address] [place], [address] GAP 7 Normal 5-15 [facility] Comment on above: Performed By: #### L 500.4050, L506.1000 ####[facility] [address] [place], [address] GFR/1.73 sq M.predicted among non-blacks MDRD (S/P/Bld) [Vol rate/Area] 100 mL/min/{1.73_m2} Normal >60 [facility] Comment on above: Result Comment: Non- GFR Calc Performed By: #### L 500.4050, L506.1000 ####[facility] [address] [place], [address] Globulin (S) [Mass/Vol] 3.3 g/dL Normal 2.2-4.2 [facility] Comment on above: Performed By: #### L 500.4050, L506.1000 ####[facility] [address] [place], [address] Glucose [Mass/Vol] 117 mg/dL High 74-106 [facility] Comment on above: Result Comment: Fast ing Glucose result from 100 to 125 mg/dLsuggests IMPAIRED HOMEOSTASIS per A.D.A. criteria. Performed By: #### L 500.4050, L506.1000 ####[facility] [address] [place], [address] Potassium [Moles/Vol] 4.4 mmol/L Normal 3.5-5.1 [facility] Comment on above: Performed By: #### L 500.4050, L506.1000 ####[facility] [address] [place], [address] Sodium [Moles/Vol] 140 mmol/L Normal 136-145 [facility] Comment on above: Performed By: #### L 500.4050, L506.1000 ####[facility] [address] [place], [address] T PROT 6.9 g/dL Normal 6.4-8.2 [facility] Comment on above: Performed By: #### L 500.4050, L506.1000 ####[facility] [address] [place], [address] Urea nitrogen [Mass/Vol] 14 mg/dL Normal 7-18 [facility] Comment on above: Performed By: #### L 500.4050, L506.1000 ####[facility] [address] [place], [address] Emergency Department Summary on 09-26-2024 Emergency Department Summary Normal [facility] Estimated glomerular filtrat ion rate (GFR) AmericanOrdered By: Jean Claude Luther on 09-26-2024 Estimated GFR (MDRD) Amer 121 mL/min >60 [facility] Comment on above: GFR Calc Femur Min 2 Viewson 09-26-19 25 Femur Min 2 Views Normal [facility] H AND P Exam - Hospitaliston 09-26-2024 H&P Exam - Hospitalist Normal [facility] Laboratory - Chemistry and C hemistry - challengeOrdered By: Jean Claude Luther on 09-26-2024 AST [Catalytic activity/Vol] 17 U/L 15-37 [facility] Pelvis 1 or 2 Viewson 2024 Pelvis 1 or 2 Views Normal [facility] Serum globulin measurementOr dered By: Jean Claude Luther on 09-26-2024 Globulin (S) [Mass/Vol] 3.3 g/dL 2.2-4.2 [facility] Serum or plasma alanine valentin otransferase (ALT) measurementOrdered By: Jean Claude Luther on 09-26-2024 ALT [Catalytic activity/Vol] 20 U/L 16-61 [facility] Serum or plasma albumin jody urement (mass/volume)Ordered By: Jean Claude Luther on 09-26-2024 Albumin [Mass/Vol] 3.6 g/dL 3.2-5.0 [facility] Serum or plasma alkaline skip sphatase measurementOrdered By: Jean Claude Luther on 09-26-2024 ALP [Catalytic activity/Vol] 67 U/L 45-117 [facility] Total proteinOrdered By: Airam Luther on 09-26-2024 Protein [Mass/Vol] 6.9 g/dL 6.4-8.2 [facility] Vitamin D,25 Hydroxyon 09-26 Vitamin D 25-OH 25.4 ng/mL Normal [facility] Comment on above: Result Comment: Cecy min D 25(OH) Status Range Deficiency <20 ng/mL (50nmol/L) Insufficiency 20 - 30 ng/mL (50 - 75 nmol/L) Sufficiency 30 - 100 ng/mL (75 - 250 nmol/L) Toxicity >100 ng/mL (>250 nmol/L) Performed By: #### L 500.4050, L506.1000 ####[facility] [address] [place], [address] Internal Medicine Office Vis iton 08-15-2024 Internal Medicine Office Visit Normal [facility] 12 Lead EKGon 07-31-2024 12 Lead EKG Normal [facility] Basic Metabolic Profile (BMP )on 07-31-2024 BUN/CRE 12.3 RATIO Normal 10-20 [facility] Comment on above: Order Comment: 'TROP ' Serial specimen #1, #2 or #3: 1 Performed By: #### L 100.0500, L500.2500, L501.4020 ####[facility] [address] [place], [address] CA,Total 9.3 mg/dL Normal 8.5-10.1 [facility] Comment on above: Order Comment: 'TROP ' Serial specimen #1, #2 or #3: 1 Performed By: #### L 100.0500, L500.2500, L501.4020 ####[facility] [address] [place], [address] Chloride [Moles/Vol] 105 mmol/L Normal 98-107 [facility] Comment on above: Order Comment: 'TROP ' Serial specimen #1, #2 or #3: 1 Performed By: #### L 100.0500, L500.2500, L501.4020 ####[facility] [address] [place], [address] CO2 [Moles/Vol] 29.0 mmol/L Normal 21.0-32.0 [facility] Comment on above: Order Comment: 'TROP ' Serial specimen #1, #2 or #3: 1 Performed By: #### L 100.0500, L500.2500, L501.4020 ####[facility] [address] [place], [address] Creatinine [Mass/Vol] 0.73 mg/dL Normal 0.70-1.30 [facility] Comment on above: Order Comment: 'TROP ' Serial specimen #1, #2 or #3: 1 Result Comment: The validity of the calculated GFR GFRAA in patients over70 years has not been determined. Clinical correlation isessential. Performed By: #### L 100.0500, L500.2500, L501.4020 ####[facility] [address] [place], [address] ECRCL 125.51 ml/min Normal [facility] Comment on above: Order Comment: 'TROP ' Serial specimen #1, #2 or #3: 1 Performed By: #### L 100.0500, L500.2500, L501.4020 ####[facility] [address] [place], [address] EST GFR - AA 138 mL/min Normal >60 [facility] Comment on above: Order Comment: 'TROP ' Serial specimen #1, #2 or #3: 1 Result Comment: Afri can Spanish GFR Calc Performed By: #### L 100.0500, L500.2500, L501.4020 ####[facility] [address] [place], [address] GAP 5 Normal 5-15 [facility] Comment on above: Order Comment: 'TROP ' Serial specimen #1, #2 or #3: 1 Performed By: #### L 100.0500, L500.2500, L501.4020 ####[facility] [address] [place], [address] GFR/1.73 sq M.predicted among non-blacks MDRD (S/P/Bld) [Vol rate/Area] 114 mL/min/{1.73_m2} Normal >60 [facility] Comment on above: Order Comment: 'TROP ' Serial specimen #1, #2 or #3: 1 Result Comment: Non- GFR Calc Performed By: #### L 100.0500, L500.2500, L501.4020 ####[facility] [address] [place], [address] Glucose [Mass/Vol] 88 mg/dL Normal 74-106 [facility] Comment on above: Order Comment: 'TROP ' Serial specimen #1, #2 or #3: 1 Performed By: #### L 100.0500, L500.2500, L501.4020 ####[facility] [address] [place], [address] Potassium [Moles/Vol] 4.5 mmol/L Normal 3.5-5.1 [facility] Comment on above: Order Comment: 'TROP ' Serial specimen #1, #2 or #3: 1 Result Comment: Mode rate Hemolysis, Result may be falsely increased. Performed By: #### L 100.0500, L500.2500, L501.4020 ####[facility] [address] [place], [address] Sodium [Moles/Vol] 139 mmol/L Normal 136-145 [facility] Comment on above: Order Comment: 'TROP ' Serial specimen #1, #2 or #3: 1 Performed By: #### L 100.0500, L500.2500, L501.4020 ####[facility] [address] [place], [address] Urea nitrogen [Mass/Vol] 9 mg/dL Normal 7-18 [facility] Comment on above: Order Comment: 'TROP ' Serial specimen #1, #2 or #3: 1 Performed By: #### L 100.0500, L500.2500, L501.4020 ####[facility] [address] [place], [address] Blood urea nitrogen (BUN)/cr eatinine ratioOrdered By: Baljit Fleming on 07-31-2024 Urea nitrogen/Creatinine [Mass ratio] 12.3 mg/mg 10- [facility] Brain/Head without Contrasto n 07-31-2024 Brain/Head without Contrast Normal [facility] CBC-Complete Blood Cnt No Di ffon 07-31-2024 Erythrocyte distribution width (RBC) [Ratio] 12.4 % Normal 11.6-14.6 [facility] Comment on above: Performed By: #### L 100.0500, L500.2500, L501.4020 ####[facility] [address] [place], [address] Hematocrit (Bld) [Volume fraction] 43.3 % Normal 40-54 [facility] Comment on above: Performed By: #### L 100.0500, L500.2500, L501.4020 ####[facility] [address] [place], [address] Hemoglobin (Bld) [Mass/Vol] 14.9 g/dL Normal 13.0-16.5 [facility] Comment on above: Performed By: #### L 100.0500, L500.2500, L501.4020 ####[facility] [address] [place], [address] MCH (RBC) [Entitic mass] 33.2 pg High 27.0-32.0 [facility] Comment on above: Performed By: #### L 100.0500, L500.2500, L501.4020 ####[facility] [address] [place], [address] MCHC (RBC) [Mass/Vol] 34.4 g/dL Normal 32-36 [facility] Comment on above: Performed By: #### L 100.0500, L500.2500, L501.4020 ####[facility] [address] [place], [address] MCV (RBC) [Entitic vol] 96.4 fL High 80-94 [facility] Comment on above: Performed By: #### L 100.0500, L500.2500, L501.4020 ####[facility] [address] [place], [address] Platelet mean volume (Bld) [Entitic vol] 11.0 fL Normal 6.2-12.0 [facility] Comment on above: Performed By: #### L 100.0500, L500.2500, L501.4020 ####[facility] [address] [place], [address] Platelets (Bld) [#/Vol] 233 10*3/uL Normal 150-450 [facility] Comment on above: Performed By: #### L 100.0500, L500.2500, L501.4020 ####[facility] [address] [place], [address] RBC (Bld) [#/Vol] 4.49 10*6/uL Low 4.6-6.2 [facility] Comment on above: Performed By: #### L 100.0500, L500.2500, L501.4020 ####[facility] [address] [place], [address] RDW SD 44.2 fl High 35.1-43.9 [facility] Comment on above: Performed By: #### L 100.0500, L500.2500, L501.4020 ####[facility] [address] [place], [address] WBC (Bld) [#/Vol] 5.9 10*3/uL Normal 4.4-11.0 [facility] Comment on above: Performed By: #### L 100.0500, L500.2500, L501.4020 ####[facility] [address] [place], [address] Carbon dioxide measurementOr dered By: Baljit Fleming on 07-31-2024 CO2 [Moles/Vol] 29.0 mmol/L 21.0-32.0 [facility] Chest 1 View (Portable)on Chest 1 View (Portable) Normal [facility] Chloride measurementOrdered By: Baljit Fleming on 07-31-2024 Chloride [Moles/Vol] 105 mmol/L 98-107 [facility] Emergency Department Summary on 07-31-2024 Emergency Department Summary Normal [facility] Erythrocyte distribution wid th (RBC) [Ratio]Ordered By: Baljit Fleming on 07-31-2024 Erythrocyte distribution width (RBC) [Entitic vol] 44.2 fL High 35.1-43.9 [facility] Erythrocyte distribution wid th ratioOrdered By: Baljit Fleming on 07-31-2024 Erythrocyte distribution width (RBC) [Ratio] 12.4 % 11.6-14.6 [facility] Estimated glomerular filtrat ion rate (GFR) AmericanOrdered By: Baljit Fleming on 07-31-2024 Estimated GFR (MDRD) Amer 138 mL/min >60 [facility] Comment on above: GFR Calc Estimation of creatinine brandon aranceOrdered By: Baljit Fleming on 07-31-2024 Estimated Creatinine Clearance Calc 125.51 ml/min [facility] Glomerular filtration rate ( GFR) estimationOrdered By: Bajlit Fleming on 07-31-2024 Estimated GFR (MDRD) Non-Af Amer 114 mL/min >60 [facility] Comment on above: Non- GFR Calc Glucose measurementOrdered B y: Baljit Fleming on 07-31-2024 Glucose [Mass/Vol] 88 mg/dL 74-106 [facility] Hematocrit Auto (Bld) [Volum e fraction]Ordered By: Baljit Fleming on 07-31-2024 Hematocrit (Bld) [Volume fraction] 43.3 % 40-54 [facility] Hemoglobin measurementOrdere d By: Baljit Fleming on 07-31-2024 Hemoglobin (Bld) [Mass/Vol] 14.9 g/dL 13.0-16.5 [facility] Influenza virus A and B and SARS-CoV-2 (COVID-19) and Respiratory syncytial virus RNAOrdered By: Baljit Fleming on 07-31-2024 SARS-CoV-2 (COVID-19) RNA VALENTINA+probe Ql (Unsp spec) [facility] L501.4020on 07-31-2024 TROPONIN-I HS 10 pg/mL Normal 3.0-78.0 [facility] Comment on above: Order Comment: 'TROP ' Serial specimen #1, #2 or #3: 1 Result Comment: Sacha aguirre Note: New Test Units and Gender Specific Reference Ranges. For more information see Policy Stat Procedure [place] High Sensitivity Troponin (TNIH) and attachments. Performed By: #### L 100.0500, L500.2500, L501.4020 ####[facility] [address] [place], [address] M100.678on 07-31-2024 M100.678 Pending SARS-CoV-2 (COVID 19) Negative INFLUENZA A Negative INFLUENZA B Negative RSV PCR Negative Normal [facility] Comment on above: Performed By: #### M 100.678 ####[facility] [address] [place], [address] MCV (mean corpuscular volume ) determinationOrdered By: Baljit Fleming on 07-31-2024 MCV (RBC) [Entitic vol] 96.4 fL High 80-94 [facility] Mean corpuscular hemoglobin (MCH) determinationOrdered By: Baljit Fleming on 07-31-2024 MCH (RBC) [Entitic mass] 33.2 pg High 27.0-32.0 [facility] Mean corpuscular hemoglobin concentration (MCHC) determinationOrdered By: Baljit Fleming on 07-31-2024 MCHC (RBC) [Mass/Vol] 34.4 g/dL 32-36 [facility] Mean platelet volume determi nationOrdered By: Baljit Fleming on 07-31-2024 Platelet mean volume (Bld) [Entitic vol] 11.0 fL 6.2-12.0 [facility] Platelet countOrdered By: jaja Fleming on 07-31-2024 Platelets (Bld) [#/Vol] 233 10*3/uL 150-450 [facility] Potassium measurementOrdered By: Baljit Fleming on 07-31-2024 Potassium [Moles/Vol] 4.5 mmol/L 3.5-5.1 [facility] Comment on above: Moderate Hemolysis, Result may be falsely increased. RBC Auto (Bld) [#/Vol]Ordere d By: Baljit Fleming on 07-31-2024 RBC (Bld) [#/Vol] 4.49 10*6/uL Low 4.6-6.2 [facility] Serum anion gap measurementO rdered By: Baljit Fleming on 07-31-2024 Anion gap [Moles/Vol] 5 mmol/L 5-15 [facility] Serum or plasma calcium jody urement (mass/volume)Ordered By: Baljit Fleming on 07-31-2024 Calcium [Mass/Vol] 9.3 mg/dL 8.5-10.1 [facility] Serum or plasma creatinine m easurement (mass/volume)Ordered By: Baljit Fleming on 07-31-2024 Creatinine [Mass/Vol] 0.73 mg/dL 0.70-1.30 [facility] Comment on above: The validity of the calculated GFR & GFRAA in patients over 70 years has not been determined. Clinical correlation is essential. Serum or plasma urea nitroge n measurement (mass/volume)Ordered By: Baljit Fleming on 07-31-2024 Urea nitrogen [Mass/Vol] 9 mg/dL 7-18 [facility] Sodium levelOrdered By: Kelby Fleming on 07-31-2024 Sodium [Moles/Vol] 139 mmol/L 136-145 [facility] Troponin IOrdered By: Baljit Fleming on 07-31-2024 Troponin I High Sensitivity 10 pg/mL 3.0-78.0 [facility] Comment on above: Please Note: New Susy t Units and Gender Specific Reference Ranges. For more information see Policy Stat Procedure [place] High Sensitivity Troponin (TNIH) and attachments. White blood cell (WBC) count Ordered By: Baljit Fleming on 07-31-2024 WBC (Bld) [#/Vol] 5.9 10*3/uL 4.4-11.0 [facility] CNOVon 06-01-2024 CNOV Office Visit ([facility]) OLGA MARTIN ([id number]) 1960 M Date Time Provider Department 06/01/24 3:00 PM [facility] During your visit today, we recorded [...] mildly james (more content not included)... Normal [facility] Abdomen W/WO IV Contraston 1 Abdomen W/WO IV Contrast Normal [facility] Adrenocorticotropic Hormoneo n 04-30-2024 ACTH 6.6 pg/mL Low 7.2-63.3 [facility] Comment on above: Order Comment: N Result Comment: ACTH reference interval for samples collected between 7 and10 AM.Performed at: [id number] [id number] Director: Calderon Shane PhD, Phone: [phone] Performed By: #### L 3300.1000 ####[facility] [address] [place], [address] Basophil percentageOrdered B y: Zoraida Marino on 07-22-2023 Cholesterol [Mass/Vol] 189 mg/dL <200 [facility] Comment on above: <200 mg/dL Desirable 200-240 mg/dL Borderline >240 mg/dL High Risk Triglyceride [Mass/Vol] 86 mg/dL <199 [facility] Comment on above: The drugs N-Acetylcy steine and Metamizole may falsely depress this assay.Serum Triglycerides Reference Interval Normal <150 mg/dL Borderline high 150 - 199 mg/dL High 200 - 499 mg/dL Very High > or = 500 mg/dL Serum or plasma cholesterol in HDL measurement (mass/volume)Ordered By: Zoraida Marino on 07-22-2023 Cholesterol in HDL [Mass/Vol] 55 mg/dL >40 [facility] Comment on above: The drugs N-Acetylcy steine and Metamizole may falsely depress this assay. Reference Range HDL <40 mg/dL Low HDL Cholesterol HDL >or= 60 mg/dL High HDL Cholesterol Serum or plasma cholesterol in VLDL measurement (mass/volume)Ordered By: Zoraida Marino on 07-22-2023 Cholesterol in VLDL [Mass/Vol] 17 mg/dL 5-40 [facility] Serum or plasma low density lipoprotein (LDL) cholesterol measurement (mass/volume)Ordered By: Zoraida Marino on 07-22-2023 Cholesterol in LDL [Mass/Vol] 117 mg/dL 0-130 [facility] Basophil percentageOrdered B y: Dr. Vieira on 10-13-2022 Basophil percentage < 10.0 umol/L 11-32 [facility] Bilirubin [Mass/Vol] 0.70 mg/dL 0.20-1.00 [facility] Comment on above: For patients on eltr ombopag therapy, use of Dimension [place] TBIL is not recommended. Chloride [Moles/Vol] 107 mmol/L 98-107 [facility] Glucose [Mass/Vol] 96 mg/dL 74-106 [facility] Potassium [Moles/Vol] 3.9 mmol/L 3.5-5.1 [facility] Protein [Mass/Vol] 7.3 g/dL 6.4-8.2 [facility] Sodium [Moles/Vol] 141 mmol/L 136-145 [facility] WBC (Bld) [#/Vol] 8.8 10*3/uL 4.4-11.0 [facility] Blood erythrocytes count (nu mber/volume)Ordered By: Dr. Vieira on 10-13-2022 RBC (Bld) [#/Vol] 4.85 10*6/uL 4.6-6.2 [facility] Blood hemoglobin measurement (mass/volume)Ordered By: Dr. Vieira on 10-13-2022 Hemoglobin (Bld) [Mass/Vol] 15.9 g/dL 13.0-16.5 [facility] Blood platelet mean volumeOr dered By: Dr. Vieira on 10-13-2022 Platelet mean volume (Bld) [Entitic vol] 10.2 fL 6.2-12.0 [facility] Determination of erythrocyte mean corpuscular volume (MCV)Ordered By: Dr. Vieira on 10-13-2022 MCV (RBC) [Entitic vol] 96.1 fL 80-94 [facility] Hematocrit Auto (Bld) [Volum e fraction]Ordered By: Dr. Vieira on 10-13-2022 Hematocrit (Bld) [Volume fraction] 46.6 % 40-54 [facility] Laboratory - Chemistry and C hemistry - challengeOrdered By: Dr. Vieira on 10-13-2022 ALP [Catalytic activity/Vol] 69 U/L 45-117 [facility] ALT [Catalytic activity/Vol] 19 U/L 16-61 [facility] CO2 [Moles/Vol] 27.0 mmol/L 21.0-32.0 [facility] Globulin (S) [Mass/Vol] 3.5 g/dL 2.2-4.2 [facility] Magnesium [Mass/Vol] 2.1 mg/dL 1.6-2.6 [facility] Urea nitrogen/Creatinine [Mass ratio] 11.9 mg/mg 10-20 [facility] Laboratory - Hematology and Cell countsOrdered By: Dr. Vieira on 10-13-2022 Erythrocyte distribution width (RBC) [Entitic vol] 44.0 fL 35.1-43.9 [facility] Erythrocyte distribution width (RBC) [Ratio] 12.3 % 11.6-14.6 [facility] MCH (RBC) [Entitic mass] 32.8 pg 27.0-32.0 [facility] MCHC Auto (RBC) [Mass/Vol]Or dered By: Dr. Vieira on 10-13-2022 MCHC (RBC) [Mass/Vol] 34.1 g/dL 32-36 [facility] No Panel InformationOrdered By: Dr. Vieira on 10-13-2022 Estimated GFR (MDRD) Amer 134 mL/min >60 [facility] Comment on above: GFR Calc Estimated GFR (MDRD) Non-Af Amer 111 mL/min >60 [facility] Comment on above: Non- GFR Calc Thyroid Stimulating Hormone (TSH) 1.56 uIU/mL 0.358-3.74 [facility] Platelets bldOrdered By: Dr. Vieira on 10-13-2022 Platelets (Bld) [#/Vol] 249 10*3/uL 150-450 [facility] Serum or plasma albumin jody urement (mass/volume)Ordered By: Dr. Vieira on 10-13-2022 Albumin [Mass/Vol] 3.8 g/dL 3.2-5.0 [facility] Serum or plasma albumin/glob ulin mass ratioOrdered By: Dr. Vieira on 10-13-2022 Albumin/Globulin [Mass ratio] 1.1 {ratio} 0.9-2.4 [facility] Serum or plasma calcium jody urement (mass/volume)Ordered By: Dr. Vieira on 10-13-2022 Calcium [Mass/Vol] 8.9 mg/dL 8.5-10.1 [facility] Serum or plasma creatinine m easurement (mass/volume)Ordered By: Dr. Vieira on 10-13-2022 Creatinine [Mass/Vol] 0.75 mg/dL 0.70-1.30 [facility] Comment on above: The validity of the calculated GFR & GFRAA in patients over 70 years has not been determined. Clinical correlation is essential. Serum or plasma urea nitroge n measurement (mass/volume)Ordered By: Dr. Vieira on 10-13-2022 Urea nitrogen [Mass/Vol] 9 mg/dL 7-18 [facility] Thin prep Papanicolaou smear with manual screeningOrdered By: Dr. Vieira on 10-13-2022 Thin prep Papanicolaou smear with manual screening 15 U/L 15-37 [facility] Thin prep Papanicolaou smear with manual screening 7 5-15 [facility] MRI CERVICAL SPINE WO IVCONo n [...] vertebrae with counting from the craniocervical junction. Academic Department Chair: FAM Transcribe Date/Time: Jan 02 2022 1:32P Dictated by : CARLINE NG MD This examination was interpreted and the report reviewed and electronically signed by: CARLINE NG MD on Jan 02 2022 1:43PM EST [id number] CN Normal [facility] NURSING PROGon 01-02-2022 NURSING PROG HNO ID: [id number] Author: Josiane Goff RN Service: Radiology Author [...] January 02, 2022 TIME: 12:26 PM Normal [facility] No Panel Informationon 01-02 [facility] Absolute lymphocyte counton 11-07-2021 Lymphocytes Auto (Unsp spec) [#/Vol] 1.40 10*3/uL 0.83-4.51 [facility] Work Phone: Basophil percentageon 2021 Basophils/100 WBC (Bld) 0.9 % 0-1 [facility] Work Phone: [phone] Eosinophils/100 WBC (Bld) 1.3 % 0-5 [facility] Work Phone: [phone] Neutrophils (Bld) [#/Vol] 6.9 10*3/uL 2.0-7.7 [facility] Work Phone: [phone] Neutrophils/100 WBC (Bld) 73.6 % 47-70 [facility] Work Phone: WBC (Bld) [#/Vol] 9.4 10*3/uL 4.4-11.0 [facility] Work Phone: Blood erythrocytes count (nu mber/volume)on 11-07-2021 RBC (Bld) [#/Vol] 3.49 10*6/uL 4.6-6.2 [facility] Work Phone: Blood hemoglobin measurement (mass/volume)on 11-07-2021 Hemoglobin (Bld) [Mass/Vol] 10.2 g/dL 13.0-16.5 [facility] Work Phone: Blood lymphocytes/100 leukoc yteson 11-07-2021 Lymphocytes/100 WBC (Bld) 14.9 % 19-41 [facility] Work Phone: Blood monocytes/100 leukocyt eson 11-07-2021 Monocytes/100 WBC (Bld) 8.9 % 0-10 [facility] Work Phone: Blood platelet mean volumeon 11-07-2021 Platelet mean volume (Bld) [Entitic vol] 8.5 fL 6.2-12.0 [facility] Work Phone: Determination of erythrocyte mean corpuscular volume (MCV)on 11-07-2021 MCV (RBC) [Entitic vol] 89.1 fL 80-94 [facility] Work Phone: Hematocrit Auto (Bld) [Volum e fraction]on 11-07-2021 Hematocrit (Bld) [Volume fraction] 31.1 % 40-54 [facility] Work Phone: Laboratory - Hematology and Cell countson 11-07-2021 Erythrocyte distribution width (RBC) [Entitic vol] 49.7 fL 35.1-43.9 [facility] Work Phone: Erythrocyte distribution width (RBC) [Ratio] 15.5 % 11.6-14.6 [facility] Work Phone: Immature granulocytes/100 WBC (Bld) 0.400 % 0.0-0.9 [facility] Work Phone: Comment on above: IG% - Immature Granu locytes (promyelocytes, myelocytes and metamyelocytes) > 1% indicates that a LEFT SHIFT is Present. MCH (RBC) [Entitic mass] 29.2 pg 27.0-32.0 [facility] Work Phone: Nucleated RBC/100 WBC (Bld) [Ratio] 0 % 0-5 [facility] Work Phone: MCHC Auto (RBC) [Mass/Vol]on 11-07-2021 MCHC (RBC) [Mass/Vol] 32.8 g/dL 32-36 [facility] Work Phone: Platelets bldon 11-07-2021 Platelets (Bld) [#/Vol] 434 10*3/uL 150-450 [facility] Work Phone: Basophil percentageon 2021 Chloride [Moles/Vol] 104 mmol/L 98-107 [facility] Work Phone: Glucose [Mass/Vol] 117 mg/dL 74-106 [facility] Work Phone: Comment on above: Fasting Glucose resu lt from 100 to 125 mg/dL suggests IMPAIRED HOMEOSTASIS per A.D.A. criteria. Potassium [Moles/Vol] 4.0 mmol/L 3.5-5.1 [facility] Work Phone: Sodium [Moles/Vol] 137 mmol/L 136-145 [facility] Work Phone: Laboratory - Chemistry and C hemistry - challengeon 11-04-2021 CO2 [Moles/Vol] 28.0 mmol/L 21.0-32.0 [facility] Work Phone: Urea nitrogen/Creatinine [Mass ratio] 32.1 mg/mg 10-20 [facility] Work Phone: No Panel Informationon 11-04 Estimated Creatinine Clearance Calc 172.37 ml/min [facility] Work Phone: Estimated GFR (MDRD) Amer 190 mL/min >60 [facility] Work Phone: Comment on above: GFR Calc Estimated GFR (MDRD) Non-Af Amer 157 mL/min >60 [facility] Work Phone: Comment on above: Non- GFR Calc Serum or plasma calcium jody urement (mass/volume)on 11-04-2021 Calcium [Mass/Vol] 8.3 mg/dL 8.5-10.1 [facility] Work Phone: Serum or plasma creatinine m easurement (mass/volume)on 11-04-2021 Creatinine [Mass/Vol] 0.56 mg/dL 0.70-1.30 [facility] Work Phone: Comment on above: The validity of the calculated GFR & GFRAA in patients over 70 years has not been determined. Clinical correlation is essential. Serum or plasma urea nitroge n measurement (mass/volume)on 11-04-2021 Urea nitrogen [Mass/Vol] 18 mg/dL 7-18 [facility] Work Phone: Thin prep Papanicolaou smear with manual screeningon 11-04-2021 Thin prep Papanicolaou smear with manual screening 5 5-15 [facility] Work Phone: Basophil percentageon 2021 Bilirubin [Mass/Vol] 0.30 mg/dL 0.20-1.00 [facility] Work Phone: Comment on above: For patients on eltr ombopag therapy, use of Dimension [place] TBIL is not recommended. Protein [Mass/Vol] 6.9 g/dL 6.4-8.2 [facility] Work Phone: Basophil percentage 0 SEEN /hpf 0-5 [facility] Work Phone: Bilirubin Test strip Ql (U)o n 10-26-2021 Bilirubin Ql (U) Negative Negative [facility] Work Phone: Culture, urineon 10-26-2021 Bacteria identified Cx Nom (U) Culture exhibits no growth. [facility] Work Phone: Ketones Test strip Ql (U)on 10-26-2021 Ketones Ql (U) Negative Negative [facility] Work Phone: Laboratory - Chemistry and C hemistry - challengeon 10-26-2021 ALP [Catalytic activity/Vol] 117 U/L 45-117 [facility] Work Phone: ALT [Catalytic activity/Vol] 34 U/L 16-61 [facility] Work Phone: Globulin (S) [Mass/Vol] 4.9 g/dL 2.2-4.2 [facility] Work Phone: Mucus LM Ql (Urine sed)on Mucus Ql (Urine sed) 0 SEEN /hpf [facility] Work Phone: Nitrite Test strip Ql (U)on 10-26-2021 Nitrite Ql (U) Negative Negative [facility] Work Phone: Protein Test strip Ql (U)on 10-26-2021 Protein Ql (U) 15 mg/dl Negative [facility] Work Phone: Serum or plasma albumin jody urement (mass/volume)on 10-26-2021 Albumin [Mass/Vol] 2.0 g/dL 3.2-5.0 [facility] Work Phone: Serum or plasma albumin/glob ulin mass ratioon 10-26-2021 Albumin/Globulin [Mass ratio] 0.4 {ratio} 0.9-2.4 [facility] Work Phone: Squamous epithelial cells de tection in urine sediment by light microscopyon 10-26-2021 Epithelial cells.squamous LM Ql (Urine sed) 0 SEEN /hpf 0-5 [facility] Work Phone: Thin prep Papanicolaou smear with manual screeningon 10-26-2021 Thin prep Papanicolaou smear with manual screening 27 U/L 15-37 [facility] Work Phone: Urine blood detectionon 10-02 RBC Ql (U) 10 /ul Negative [facility] Work Phone: RBC Ql (U) 0 SEEN /hpf 0-5 [facility] Work Phone: Urine clarityon 10-26-2021 Clarity (U) Clear Clear [facility] Work Phone: Urine color determinationon 10-26-2021 Color (U) Yellow Yellow [facility] Work Phone: Urine glucose detectionon Glucose Ql (U) Normal mg/dl Normal [facility] Work Phone: Urine leukocyte esterase det ection by dipstickon 10-26-2021 Leukocyte esterase Test strip Ql (U) Negative Negative [facility] Work Phone: Urine pHon 10-26-2021 pH (U) 8.0 [pH] 5.0 - 8.0 [facility] Work Phone: Urine sediment bacteria coun t by microscopy (number/high power field)on 10-26-2021 Bacteria LM.HPF (Urine sed) [#/Area] 0 /[HPF] None Seen [facility] Work Phone: Urine specific gravity measu rementon 10-26-2021 Specific gravity (U) [Rel density] 1.010 1.002-1.030 [facility] Work Phone: Urobilinogen Auto test strip Ql (U)on 10-26-2021 Urobilinogen Ql (U) Normal mg/dl Normal [facility] Work Phone: Absolute lymphocyte counton 10-23-2021 Lymphocytes Auto (Unsp spec) [#/Vol] 1.13 10*3/uL 0.83-4.51 [facility] Work Phone: Bacteria identified Cx Nom ( Wound)on 10-23-2021 Wound Culture Presumptive C albicans [facility] Work Phone: Wound Culture Staphylococcus epidermidis [facility] Work Phone: Wound Culture Staphylococcus haemolyticus [facility] Work Phone: Wound Culture Escherichia coli [facility] Work Phone: Basophil percentageon 2021 Basophil percentage 3.5 mg/dL 2.5-4.9 [facility] Work Phone: Basophils/100 WBC (Bld) 0.5 % 0-1 [facility] Work Phone: [phone] Bilirubin [Mass/Vol] 0.30 mg/dL 0.20-1.00 [facility] Work Phone: [phone] Comment on above: For patients on eltr ombopag therapy, use of Dimension [place] TBIL is not recommended. Chloride [Moles/Vol] 101 mmol/L 98-107 [facility] Work Phone: [phone] Eosinophils/100 WBC (Bld) 1.0 % 0-5 [facility] Work Phone: Glucose [Mass/Vol] 111 mg/dL 74-106 [facility] Work Phone: Comment on above: Fasting Glucose resu lt from 100 to 125 mg/dL suggests IMPAIRED HOMEOSTASIS per A.D.A. criteria. Neutrophils (Bld) [#/Vol] 5.8 10*3/uL 2.0-7.7 [facility] Work Phone: Neutrophils/100 WBC (Bld) 71.6 % 47-70 [facility] Work Phone: Potassium [Moles/Vol] 3.9 mmol/L 3.5-5.1 [facility] Work Phone: Protein [Mass/Vol] 6.3 g/dL 6.4-8.2 [facility] Work Phone: Sodium [Moles/Vol] 136 mmol/L 136-145 [facility] Work Phone: WBC (Bld) [#/Vol] 8.1 10*3/uL 4.4-11.0 [facility] Work Phone: Blood erythrocytes count (nu mber/volume)on 10-23-2021 RBC (Bld) [#/Vol] 3.00 10*6/uL 4.6-6.2 [facility] Work Phone: Blood hemoglobin measurement (mass/volume)on 10-23-2021 Hemoglobin (Bld) [Mass/Vol] 9.2 g/dL 13.0-16.5 [facility] Work Phone: Blood lymphocytes/100 leukoc yteson 10-23-2021 Lymphocytes/100 WBC (Bld) 13.9 % 19-41 [facility] Work Phone: Blood monocytes/100 leukocyt eson 10-23-2021 Monocytes/100 WBC (Bld) 12.6 % 0-10 [facility] Work Phone: Blood platelet mean volumeon 10-23-2021 Platelet mean volume (Bld) [Entitic vol] 9.4 fL 6.2-12.0 [facility] Work Phone: Determination of erythrocyte mean corpuscular volume (MCV)on 10-23-2021 MCV (RBC) [Entitic vol] 92.0 fL 80-94 [facility] Work Phone: Gram stain for investigation of transfusion reactionon 10-23-2021 Microscopic observation Gram stain Nom (Unsp spec) [facility] Work Phone: Hematocrit Auto (Bld) [Volum e fraction]on 10-23-2021 Hematocrit (Bld) [Volume fraction] 27.6 % 40-54 [facility] Work Phone: Laboratory - Chemistry and C hemistry - challengeon 10-23-2021 ALP [Catalytic activity/Vol] 120 U/L 45-117 [facility] Work Phone: ALT [Catalytic activity/Vol] 31 U/L 16-61 [facility] Work Phone: CO2 [Moles/Vol] 32.0 mmol/L 21.0-32.0 [facility] Work Phone: Globulin (S) [Mass/Vol] 4.5 g/dL 2.2-4.2 [facility] Work Phone: Magnesium [Mass/Vol] 2.4 mg/dL 1.6-2.6 [facility] Work Phone: Urea nitrogen/Creatinine [Mass ratio] 21.2 mg/mg 10-20 [facility] Work Phone: Laboratory - Hematology and Cell countson 10-23-2021 Erythrocyte distribution width (RBC) [Entitic vol] 49.1 fL 35.1-43.9 [facility] Work Phone: Erythrocyte distribution width (RBC) [Ratio] 14.6 % 11.6-14.6 [facility] Work Phone: Immature granulocytes/100 WBC (Bld) 0.400 % 0.0-0.9 [facility] Work Phone: Comment on above: IG% - Immature Granu locytes (promyelocytes, myelocytes and metamyelocytes) > 1% indicates that a LEFT SHIFT is Present. MCH (RBC) [Entitic mass] 30.7 pg 27.0-32.0 [facility] Work Phone: Nucleated RBC/100 WBC (Bld) [Ratio] 0 % 0-5 [facility] Work Phone: MCHC Auto (RBC) [Mass/Vol]on 10-23-2021 MCHC (RBC) [Mass/Vol] 33.3 g/dL 32-36 [facility] Work Phone: No Panel Informationon 10-23 Estimated Creatinine Clearance Calc 180.83 ml/min [facility] Work Phone: Estimated GFR (MDRD) Amer 208 mL/min >60 [facility] Work Phone: Comment on above: GFR Calc Estimated GFR (MDRD) Non-Af Amer 172 mL/min >60 [facility] Work Phone: Comment on above: Non- GFR Calc Platelets bldon 10-23-2021 Platelets (Bld) [#/Vol] 371 10*3/uL 150-450 [facility] Work Phone: Serum or plasma albumin jody urement (mass/volume)on 10-23-2021 Albumin [Mass/Vol] 1.8 g/dL 3.2-5.0 [facility] Work Phone: Serum or plasma albumin/glob ulin mass ratioon 10-23-2021 Albumin/Globulin [Mass ratio] 0.4 {ratio} 0.9-2.4 [facility] Work Phone: Serum or plasma calcium jody urement (mass/volume)on 10-23-2021 Calcium [Mass/Vol] 8.0 mg/dL 8.5-10.1 [facility] Work Phone: Serum or plasma creatinine m easurement (mass/volume)on 10-23-2021 Creatinine [Mass/Vol] 0.52 mg/dL 0.70-1.30 [facility] Work Phone: Comment on above: The validity of the calculated GFR & GFRAA in patients over 70 years has not been determined. Clinical correlation is essential. Serum or plasma urea nitroge n measurement (mass/volume)on 10-23-2021 Urea nitrogen [Mass/Vol] 11 mg/dL 7-18 [facility] Work Phone: Thin prep Papanicolaou smear with manual screeningon 10-23-2021 Thin prep Papanicolaou smear with manual screening 23 U/L 15-37 [facility] Work Phone: Thin prep Papanicolaou smear with manual screening 3 5-15 [facility] Work Phone: Glucose Glucometer (BldC) [M ass/Vol]on 10-19-2021 Glucose [Mass/Vol] 130 mg/dL 74-106 [facility] Work Phone: Comment on above: MANAGEMENT OF PATIEN T CARE PER NURSING PROTOCOL Vancomycin troughon 10-20-19 Vancomycin trough [Mass/Vol] 19.4 ug/mL 5.0-15.0 [facility] Work Phone: Comment on above: VANCOMYCIN STANDARED DRUG THERAPY TROUGH LEVEL: 5.0 - 15.0 mg/L VANCOMYCIN HIGH INTENSITY THERAPY TROUGH LEVEL: 15.0 - 20.0 mg/L High Intensity therapy recommended for serious lifethreatening infections include:- Zmgtohmwrv-Qvavkexilcqb-Ezqpgxndv (Ventilator/Healt[employer] Associated)-Sepsis PLEASE CONTACT PHARMACY SERVICES (#[id number]) FOR INTERPRETATIONOF RESULTS. Serum or plasma vancomycin m easurement (mass/volume)on 10-18-2021 Vancomycin [Mass/Vol] 13.1 ug/mL 0.0-15.0 [facility] Work Phone: Comment on above: VANCOMYCIN STANDARD DRUG THERAPY: CRITICAL VALUE IS > 15.0 mg/L VANCOMYCIN HIGH INTENSITY THERAPY: CRITICAL VALUE IS > 20.0 mg/L PLEASE CONTACT PHARMACY SERVICES (#[id number]) FOR INTERPRETATIONOF RESULTS. THIS RESULT DOES NOT REPRESENT A PEAK OR TROUGHLEVEL FOR THIS DRUG. Basophil percentageon 2021 Basophil percentage 0 SEEN /hpf 0-5 [facility] Work Phone: Bilirubin Test strip Ql (U)o n 10-15-2021 Bilirubin Ql (U) Negative Negative [facility] Work Phone: Ketones Test strip Ql (U)on 10-15-2021 Ketones Ql (U) Negative Negative [facility] Work Phone: Mucus LM Ql (Urine sed)on Mucus Ql (Urine sed) 0 SEEN /hpf [facility] Work Phone: Nitrite Test strip Ql (U)on 10-15-2021 Nitrite Ql (U) Negative Negative [facility] Work Phone: Protein Test strip Ql (U)on 10-15-2021 Protein Ql (U) Negative Negative [facility] Work Phone: Squamous epithelial cells de tection in urine sediment by light microscopyon 10-15-2021 Epithelial cells.squamous LM Ql (Urine sed) 0 SEEN /hpf 0-5 [facility] Work Phone: Urine blood detectionon 10-01 RBC Ql (U) 10 /ul Negative [facility] Work Phone: RBC Ql (U) 0 SEEN /hpf 0-5 [facility] Work Phone: Urine clarityon 10-15-2021 Clarity (U) Clear Clear [facility] Work Phone: Urine color determinationon 10-15-2021 Color (U) Yellow Yellow [facility] Work Phone: Urine glucose detectionon Glucose Ql (U) Normal mg/dl Normal [facility] Work Phone: Urine leukocyte esterase det ection by dipstickon 10-15-2021 Leukocyte esterase Test strip Ql (U) Negative Negative [facility] Work Phone: Urine pHon 10-15-2021 pH (U) 5.0 [pH] 5.0 - 8.0 [facility] Work Phone: Urine sediment bacteria coun t by microscopy (number/high power field)on 10-15-2021 Bacteria LM.HPF (Urine sed) [#/Area] 0 /[HPF] None Seen [facility] Work Phone: Urine specific gravity measu rementon 10-15-2021 Specific gravity (U) [Rel density] 1.015 1.002-1.030 [facility] Work Phone: Urobilinogen Auto test strip Ql (U)on 10-15-2021 Urobilinogen Ql (U) Normal mg/dl Normal [facility] Work Phone: Basophil percentageon 2021 Triglyceride [Mass/Vol] 121 mg/dL <199 [facility] Work Phone: Comment on above: The drugs N-Acetylcy steine and Metamizole may falsely depress this assay.Serum Triglycerides Reference Interval Normal <150 mg/dL Borderline high 150 - 199 mg/dL High 200 - 499 mg/dL Very High > or = 500 mg/dL Serum or plasma transthyreti n measurement (mass/volume)on 10-09-2021 Prealbumin [Mass/Vol] 7.9 mg/dL 20.0-40.0 [facility] Work Phone: No Panel Informationon 10-07 Troponin I High Sensitivity 11 pg/mL 3.0-78.0 [facility] Work Phone: Comment on above: Please Note: New Susy t Units and Gender Specific Reference Ranges. For more information see Policy Stat Procedure [place] High Sensitivity Troponin (TNIH) and attachments. Blood manual differential co mment interpretation (narrative result)on 10-03-2021 Manual differential comment [place] (Bld) [Interp] SCANNED [facility] Work Phone: Review by pathologiston Pathologist review [place] (Unsp spec) [Interp] Reviewed [facility] Work Phone: Comment on above: Previous reported re sult: Taisha dyson Edited by: RGOOD on 10/04/21:0917Neutrophilic leukocytosis.Thrombocytosis.Clinical correlation necessary.Burt Sierra M.D. 10/04/21 AMENDED REPORT 10/04/21 0917 PATH REV previously reported as: Taisha dyson Laboratory - Coagulationon 0 10-02-2021 aPTT Coag (Bld) [Time] 33.5 s 24.1-36.2 [facility] Work Phone: Direct bilirubinon 2 Bilirubin.direct [Mass/Vol] 0.18 mg/dL 0.00-0.30 [facility] Work Phone: Laboratory - Chemistry and C hemistry - challengeon 09-20-2021 Lipase [Catalytic activity/Vol] 73 U/L 73-393 [facility] Work Phone: XR Shoulder - right 3 Viewso n 06-12-2021 IMPRESSION: Benign reactive changes, otherwise no significant bone or articular disease identified. Academic Department Chair: FAM Transcribe Date/Time: Jun 12 2021 10:51A Dictated by : ALYSA AKBAR MD This examination was interpreted and the report reviewed and electronically signed by: ALYSA AKBAR MD on Jun 12 2021 11:02AM [facility] DIVISION OF RADIOLOGY * * *Final Report* [...] examination of 2010. DIVISION OF RADIOLOGY Provider, [facility] [place] - 06/12/2021 * * *Final Report* * [...] no significant bone or articular disease identified. Academic Department Chair: PSCB Transcribe Date/Time: Jun 12 2021 10:51A Dictated by : ALYSA AKBAR MD This examination was interpreted and the report reviewed and electronically signed by: ALYSA AKBAR MD on Jun 12 2021 11:02AM [facility] Radiology Study observation (narrative) [place] XR Shoulder - right 3 ViewsO rdered By: [facility] Provider on 06-12-2021 [facility] Bacteria identified Cx Nom ( Wound) Wound Culture Presumptive C albicans [facility] Work Phone: Wound Culture Staphylococcus epidermidis [facility] Work Phone: Wound Culture Staphylococcus haemolyticus [facility] Work Phone: Wound Culture Escherichia coli [facility] Work Phone: Culture, urine Bacteria identified Cx Nom (U) Culture exhibits no growth. [facility] Work Phone: Gram stain for investigation of transfusion reaction Microscopic observation Gram stain Nom (Unsp spec) [facility] Work Phone: Vital Signs Date Time Vital Sign Value Performing Clinician Facility 04-14-2025 21:00-0400 Body temperature 98 [degF] Dr. Zoraida Marino MD Work Phone: [facility] 04-14-2025 21:00-0400 Diastolic blood pressure 89 mm[Hg] Dr. Zoraida Marino MD Work Phone: [facility] 04-14-2025 21:00-0400 Heart rate 82 /min Dr. Zoraida Marino MD Work Phone: [facility] 04-14-2025 21:00-0400 Respiratory rate 18 /min Dr. Zoraida Marino MD Work Phone: [facility] 04-14-2025 21:00-0400 SaO2% (BldA) [Mass fraction] 100 % Dr. Zoraida Marino MD Work Phone: [facility] 04-14-2025 21:00-0400 Systolic blood pressure 146 mm[Hg] Dr. Zoraida Marino MD Work Phone: [facility] 04-14-2025 19:00-0400 Body mass index (BMI) [Ratio] 27.2 kg/m2 Dr. Zoraida Marino MD Work Phone: [facility] 04-14-2025 19:00-0400 Body weight 101.[address] Zoraida Marino MD Work Phone: [facility] 04-14-2025 17:34-0400 Body height 193.[address] Zoraida Marino MD Work Phone: [facility] 10-24-2024 08:06-0400 Body height 193.[address] Zoraida Marino MD Work Phone: [facility] 10-24-2024 08:06-0400 Body mass index (BMI) [Ratio] 27.1 kg/m2 Dr. Zoraida Marino MD Work Phone: [facility] 10-24-2024 08:06-0400 Body temperature 97.3 [degF] Dr. Zoraida Marino MD Work Phone: [facility] 10-24-2024 08:06-0400 Body weight 101.[address] Zoraida Marino MD Work Phone: [facility] 10-24-2024 08:06-0400 Diastolic blood pressure 82 mm[Hg] Dr. Zoraida Marino MD Work Phone: [facility] 10-24-2024 08:06-0400 Heart rate 106 /min Dr. Zoraida Marino MD Work Phone: [facility] 10-24-2024 08:06-0400 Respiratory rate 16 /min Dr. Zoraida Marino MD Work Phone: [facility] 10-24-2024 08:06-0400 SaO2% (BldA) [Mass fraction] 96 % Dr. Zoraida Marino MD Work Phone: [facility] 10-24-2024 08:06-0400 Systolic blood pressure 132 mm[Hg] Dr. Zoraida Marino MD Work Phone: [facility] 09-30-2024 12:42-0500 Body temperature 97.8 [degF] Dr. Zoraida Marino MD Work Phone: [facility] 09-30-2024 12:42-0500 Diastolic blood pressure 87 mm[Hg] Dr. Zoraida Marino MD Work Phone: [facility] 09-30-2024 12:42-0500 Heart rate 87 /min Dr. Zoraida Marino MD Work Phone: [facility] 09-30-2024 12:42-0500 Respiratory rate 18 /min Dr. Zoraida Marino MD Work Phone: [facility] 09-30-2024 12:42-0500 SaO2% (BldA) [Mass fraction] 94 % Dr. Zoraida Marino MD Work Phone: [facility] 09-30-2024 12:42-0500 Systolic blood pressure 156 mm[Hg] Dr. Zoraida Marino MD Work Phone: [facility] 09-29-2024 09:46-0500 Inhaled oxygen flow rate 1.5 L/min Dr. Zoraida Marino MD Work Phone: [facility] 09-29-2024 05:07-0500 Body mass index (BMI) [Ratio] 27.2 kg/m2 Dr. Zoraida Marino MD Work Phone: [facility] 09-29-2024 05:07-0500 Body weight 101.[address] Zoraida Marino MD Work Phone: [facility] 09-28-2024 08:00-0500 Inhaled oxygen concentration 30 % Dr. Zoraida Marino MD Work Phone: [facility] 08-16-2024 14:12-0500 Body mass index (BMI) [Ratio] 27.1 kg/m2 Dr. Zoraida Marino MD Work Phone: [facility] 08-16-2024 14:12-0500 Body temperature 98.4 [degF] Dr. Zoraida Marino MD Work Phone: [facility] 08-16-2024 14:12-0500 Body weight 101.[address] Zoraida Marino MD Work Phone: [facility] 08-16-2024 14:12-0500 Diastolic blood pressure 70 mm[Hg] Dr. Zoraida Marino MD Work Phone: [facility] 08-16-2024 14:12-0500 Heart rate 78 /min Dr. Zoraida Marino MD Work Phone: [facility] 08-16-2024 14:12-0500 Respiratory rate 16 /min Dr. Zoraida Marino MD Work Phone: [facility] 08-16-2024 14:12-0500 SaO2% (BldA) [Mass fraction] 95 % Dr. Zoraida Marino MD Work Phone: [facility] 08-16-2024 14:12-0500 Systolic blood pressure 136 mm[Hg] Dr. Zoraida Marino MD Work Phone: [facility] 07-31-2024 13:05-0500 Diastolic blood pressure 85 mm[Hg] Dr. Zroaida Marino MD Work Phone: [facility] 07-31-2024 13:05-0500 Heart rate 69 /min Dr. Zoraida Marino MD Work Phone: [facility] 07-31-2024 13:05-0500 Respiratory rate 20 /min Dr. Zoraida Marino MD Work Phone: [facility] 07-31-2024 13:05-0500 SaO2% (BldA) [Mass fraction] 93 % Dr. Zoraida Marino MD Work Phone: [facility] 07-31-2024 13:05-0500 Systolic blood pressure 130 mm[Hg] Dr. Zoraida Marino MD Work Phone: [facility] 07-31-2024 11:41-0500 Body temperature 98.5 [degF] Dr. Zoraida Marino MD Work Phone: [facility] 07-31-2024 10:19-0500 Body mass index (BMI) [Ratio] 27.6 kg/m2 Dr. Zoraida Marino MD Work Phone: [facility] 07-31-2024 10:19-0500 Body weight 102.[address] Zoraida Marino MD Work Phone: [facility] 06-01-2024 14:47-0400 Body height 193 cm Evan Walden MD Work Phone: [facility] 06-01-2024 14:47-0400 Body mass index (BMI) [Ratio] 27.27 kg/m2 Evan Walden MD Work Phone: [facility] 06-01-2024 14:47-0400 Body weight 101.61 kg Evan Walden MD Work Phone: [facility] 06-01-2024 14:47-0400 Heart rate 88 /min Evan Walden MD Work Phone: [facility] 06-01-2024 14:47-0400 SaO2% (BldA) [Mass fraction] 97 % Evan Walden MD Work Phone: [facility] 08-31-2023 07:12-0500 Body height 193.[address] Zoraida Marino Work Phone: [facility] 08-31-2023 07:12-0500 Body mass index (BMI) [Ratio] 28.5 kg/m2 Dr. Zoraida Marino Work Phone: [facility] 08-31-2023 07:12-0500 Body temperature 98.4 [degF] Dr. Zoraida Marino Work Phone: [facility] 08-31-2023 07:12-0500 Body weight 106.[address] Zoraida Marino Work Phone: [facility] 08-31-2023 07:12-0500 Diastolic blood pressure 108 mm[Hg] Dr. Zoraida Marino Work Phone: [facility] 08-31-2023 07:12-0500 Heart rate 82 /min Dr. Zoraida Marino Work Phone: [facility] 08-31-2023 07:12-0500 Respiratory rate 18 /min Dr. Zoraida Marino Work Phone: [facility] 08-31-2023 07:12-0500 SaO2% (BldA) [Mass fraction] 96 % Dr. Zoraida Marino Work Phone: [facility] 08-31-2023 07:12-0500 Systolic blood pressure 182 mm[Hg] Dr. Zoraida Marino Work Phone: [facility] 08-26-2023 10:47-0500 Body temperature 98.6 [degF] Dr. Zoraida Marino Work Phone: [facility] 08-26-2023 10:47-0500 Diastolic blood pressure 80 mm[Hg] Dr. Zoarida Marino Work Phone: [facility] 08-26-2023 10:47-0500 Heart rate 88 /min Dr. Zoraida Marino Work Phone: [facility] 08-26-2023 10:47-0500 Respiratory rate 16 /min Dr. Zoraida Marino Work Phone: [facility] 08-26-2023 10:47-0500 SaO2% (BldA) [Mass fraction] 98 % Dr. Zoraiad Marino Work Phone: [facility] 08-26-2023 10:47-0500 Systolic blood pressure 122 mm[Hg] Dr. Zoraida Marino Work Phone: [facility] 08-17-2023 08:52-0500 Diastolic blood pressure 98 mm[Hg] Dr. Zoraida Marino Work Phone: [facility] 08-17-2023 08:52-0500 Systolic blood pressure 152 mm[Hg] Dr. Zoraida Marino Work Phone: [facility] 08-17-2023 08:01-0500 Body height 193.[address] Zoraida Marino Work Phone: [facility] 08-17-2023 08:01-0500 Body mass index (BMI) [Ratio] 29.5 kg/m2 Dr. Zoraida Marino Work Phone: [facility] 08-17-2023 08:01-0500 Body temperature 97.6 [degF] Dr. Zoraida Marino Work Phone: [facility] 08-17-2023 08:01-0500 Body weight 110.[address] Zoraida Marino Work Phone: [facility] 08-17-2023 08:01-0500 Heart rate 85 /min Dr. Zoraida Marino Work Phone: [facility] 08-17-2023 08:01-0500 Respiratory rate 16 /min Dr. Zoraida Marino Work Phone: [facility] 08-17-2023 08:01-0500 SaO2% (BldA) [Mass fraction] 98 % Dr. Zoraida Marino Work Phone: [facility] 07-02-2023 11:46-0500 Body height 193.[address] Zoraida Marino Work Phone: [facility] 07-02-2023 11:46-0500 Body temperature 98.4 [degF] Dr. Zoraida Marino Work Phone: [facility] 07-02-2023 11:46-0500 Diastolic blood pressure 98 mm[Hg] Dr. Zoraida Marino Work Phone: [facility] 07-02-2023 11:46-0500 Heart rate 85 /min Dr. Zoraida Marino Work Phone: [facility] 07-02-2023 11:46-0500 Respiratory rate 17 /min Dr. Zoraida Marino Work Phone: [facility] 07-02-2023 11:46-0500 SaO2% (BldA) [Mass fraction] 95 % Dr. Zoraida Marino Work Phone: [facility] 07-02-2023 11:46-0500 Systolic blood pressure 154 mm[Hg] Dr. Zoraida Marino Work Phone: [facility] 05-07-2023 07:48-0400 Body mass index (BMI) [Ratio] 28.5 kg/m2 Dr. Zoraida Marino Work Phone: [facility] 05-07-2023 07:48-0400 Body temperature 98.6 [degF] Dr. Zoraida Marino Work Phone: [facility] 05-07-2023 07:48-0400 Body weight 106.[address] Zoraida Marino Work Phone: [facility] 05-07-2023 07:48-0400 Diastolic blood pressure 82 mm[Hg] Dr. Zoraida Marino Work Phone: [facility] 05-07-2023 07:48-0400 Heart rate 75 /min Dr. Zoraida Marino Work Phone: [facility] 05-07-2023 07:48-0400 Respiratory rate 17 /min Dr. Zoraida Marino Work Phone: [facility] 05-07-2023 07:48-0400 SaO2% (BldA) [Mass fraction] 96 % Dr. Zoraida Marino Work Phone: [facility] 05-07-2023 07:48-0400 Systolic blood pressure 142 mm[Hg] Dr. Zoraida Marino Work Phone: [facility] 10-09-2022 08:20-0500 Body height 193.[address] Zoraida Marino Work Phone: [facility] 10-09-2022 08:20-0500 Body mass index (BMI) [Ratio] 28.1 kg/m2 Dr. Zoraida Marino Work Phone: [facility] 10-09-2022 08:20-0500 Body temperature 98.7 [degF] Dr. Zoraida Marino Work Phone: [facility] 10-09-2022 08:20-0500 Body weight 104.[address] Zoraida Marino Work Phone: [facility] 10-09-2022 08:20-0500 Diastolic blood pressure 90 mm[Hg] Dr. Zoraida Marino Work Phone: [facility] 10-09-2022 08:20-0500 Heart rate 98 /min Dr. Zoraida Marino Work Phone: [facility] 10-09-2022 08:20-0500 Respiratory rate 17 /min Dr. Zoraida Marino Work Phone: [facility] 10-09-2022 08:20-0500 SaO2% (BldA) [Mass fraction] 97 % Dr. Zoraida Marino Work Phone: [facility] 10-09-2022 08:20-0500 Systolic blood pressure 140 mm[Hg] Dr. Zoraida Marino Work Phone: [facility] 08-14-2022 11:03-0500 Body temperature 97.1 [degF] Dr. Zoraida Marino Work Phone: [facility] 08-14-2022 11:03-0500 Diastolic blood pressure 97 mm[Hg] Dr. Zoraida Marino Work Phone: [facility] 08-14-2022 11:03-0500 Heart rate 77 /min Dr. Zoraida Marino Work Phone: [facility] 08-14-2022 11:03-0500 Respiratory rate 16 /min Dr. Zoraida Marino Work Phone: [facility] 08-14-2022 11:03-0500 SaO2% (BldA) [Mass fraction] 98 % Dr. Zoraida Marino Work Phone: [facility] 08-14-2022 11:03-0500 Systolic blood pressure 142 mm[Hg] Dr. Zoraida Marino Work Phone: [facility] 08-14-2022 08:30-0500 Body mass index (BMI) [Ratio] 27 kg/m2 Dr. Zoraida Marino Work Phone: [facility] 08-14-2022 08:30-0500 Body weight 100.[address] Zoraida Marino Work Phone: [facility] 07-21-2022 09:38-0500 Body mass index (BMI) [Ratio] 28.4 kg/m2 Dr. Zoraida Marino Work Phone: [facility] 07-21-2022 09:38-0500 Body temperature 99.3 [degF] Dr. Zoraida Marino Work Phone: [facility] 07-21-2022 09:38-0500 Body weight 106.[address] Zoraida Marino Work Phone: [facility] 07-21-2022 09:38-0500 Diastolic blood pressure 78 mm[Hg] Dr. Zoraida Marino Work Phone: [facility] 07-21-2022 09:38-0500 Heart rate 100 /min Dr. Zoraida Marino Work Phone: [facility] 07-21-2022 09:38-0500 Respiratory rate 16 /min Dr. Zoraida Marino Work Phone: [facility] 07-21-2022 09:38-0500 SaO2% (BldA) [Mass fraction] 99 % Dr. Zoraida Marnio Work Phone: [facility] 07-21-2022 09:38-0500 Systolic blood pressure 160 mm[Hg] Dr. Zoraida Marino Work Phone: [facility] 01-23-2022 11:36-0400 Diastolic blood pressure 88 mm[Hg] Dr. Linda Dominguez Work Phone: [facility] Work Phone: 01-23-2022 11:36-0400 Systolic blood pressure 146 mm[Hg] Dr. Linda Dominguez Work Phone: [facility] Work Phone: 01-23-2022 10:07-0400 Body height 193.[address] Linda Dominguez Work Phone: [facility] Work Phone: 01-23-2022 10:07-0400 Body mass index (BMI) [Ratio] 29 kg/m2 Dr. Linda Dominguez Work Phone: [facility] Work Phone: 01-23-2022 10:07-0400 Body temperature 98.7 [degF] Dr. Linda Dominguez Work Phone: [facility] Work Phone: 01-23-2022 10:07-0400 Body weight 107.[address] Linda Dominguez Work Phone: [facility] Work Phone: 01-23-2022 10:07-0400 Heart rate 72 /min Dr. Linda Dominguez Work Phone: [facility] Work Phone: 01-23-2022 10:07-0400 Respiratory rate 18 /min Dr. Linda Dominguez Work Phone: [facility] Work Phone: 01-23-2022 10:07-0400 SaO2% (BldA) [Mass fraction] 96 % Dr. Linda Dominguez Work Phone: [facility] Work Phone: 11-22-2021 10:33-0400 Body temperature 97.9 [degF] Dr. Linda Dominguez Work Phone: [facility] Work Phone: 11-13-2021 10:17-0400 Diastolic blood pressure 91 mm[Hg] Dr. Linda Dominguez Work Phone: [facility] Work Phone: 11-13-2021 10:17-0400 Heart rate 101 /min Dr. Linda Dominguez Work Phone: [facility] Work Phone: 11-13-2021 10:17-0400 Respiratory rate 18 /min Dr. Linda Dominguez Work Phone: [facility] Work Phone: 11-13-2021 10:17-0400 SaO2% (BldA) [Mass fraction] 96 % Dr. Linda Dominguez Work Phone: [facility] Work Phone: 11-13-2021 10:17-0400 Systolic blood pressure 138 mm[Hg] Dr. Linda Dominguez Work Phone: [facility] Work Phone: 11-13-2021 06:27-0400 Body height 193.[address] Linda Dominguez Work Phone: [facility] Work Phone: 11-13-2021 06:27-0400 Body mass index (BMI) [Ratio] 28.8 kg/m2 Dr. Linda Dominguez Work Phone: [facility] Work Phone: 11-13-2021 06:27-0400 Body temperature 98.2 [degF] Dr. Linda Dominguez Work Phone: [facility] Work Phone: 11-13-2021 06:27-0400 Body weight 107.[address] Linda Dominguez Work Phone: [facility] Work Phone: 11-09-2021 09:28-0400 Heart rate 99 /min Dr. Linda Dominguez Work Phone: [facility] Work Phone: 11-09-2021 09:28-0400 Respiratory rate 18 /min Dr. Linda Dominguez Work Phone: [facility] Work Phone: 11-09-2021 09:28-0400 SaO2% (BldA) [Mass fraction] 94 % Dr. Linda Dominguez Work Phone: [facility] Work Phone: 11-09-2021 09:06-0400 Body temperature 98.1 [degF] Dr. Linda Dominguez Work Phone: [facility] Work Phone: 11-09-2021 09:06-0400 Diastolic blood pressure 76 mm[Hg] Dr. Linda Dominguez Work Phone: [facility] Work Phone: 11-09-2021 09:06-0400 Systolic blood pressure 132 mm[Hg] Dr. Linda Dominguez Work Phone: [facility] Work Phone: 11-06-2021 12:04-0400 Body height 195.[address] Linda Dominguze Work Phone: [facility] Work Phone: 11-06-2021 12:04-0400 Body weight 104.[address] Linda Dominguez Work Phone: [facility] Work Phone: 10-28-2021 14:26-0400 Inhaled oxygen flow rate 2 L/min Dr. Linda Dominguez Work Phone: [facility] Work Phone: 10-27-2021 05:55-0400 Inhaled oxygen concentration 96 % Dr. Linda Dominguez Work Phone: [facility] Work Phone: 10-23-2021 16:30-0400 Body mass index (BMI) [Ratio] 28.8 kg/m2 Dr. Linda Dominguez Work Phone: [facility] Work Phone: 10-23-2021 14:22-0400 Body temperature 98.2 [degF] Dr. Linda Dominguez Work Phone: [facility] Work Phone: 10-23-2021 14:22-0400 Diastolic blood pressure 84 mm[Hg] Dr. Linda Dominguez Work Phone: [facility] Work Phone: 10-23-2021 14:22-0400 Heart rate 91 /min Dr. Linda Dominguez Work Phone: [facility] Work Phone: 10-23-2021 14:22-0400 Respiratory rate 16 /min Dr. Linda Dominguez Work Phone: [facility] Work Phone: 10-23-2021 14:22-0400 SaO2% (BldA) [Mass fraction] 92 % Dr. Linda Dominguez Work Phone: [facility] Work Phone: 10-23-2021 14:22-0400 Systolic blood pressure 127 mm[Hg] Dr. Linda Dominguez Work Phone: [facility] Work Phone: 10-23-2021 04:45-0400 Body weight 110.[address] Linda Dominguez Work Phone: [facility] Work Phone: 10-12-2021 02:15-0500 Inhaled oxygen flow rate 4 L/min Dr. Linda Dominguez Work Phone: [facility] Work Phone: 10-09-2021 14:17-0500 Body mass index (BMI) [Ratio] 29 kg/m2 Dr. Linda Dominguez Work Phone: [facility] Work Phone: 10-09-2021 13:17-0500 Body mass index (BMI) [Ratio] 29 kg/m2 Dr. Linda Dominguez Work Phone: [facility] Work Phone: 09-26-2021 07:56-0500 Inhaled oxygen concentration 95 % Dr. Linda Dominguez Work Phone: [facility] Work Phone: 09-26-2021 06:56-0500 Inhaled oxygen concentration 95 % Dr. Linda Dominguez Work Phone: [facility] Work Phone: Encounters Encounter Date Encounter Type Care Provider Facility Start: 04-27-2025 End: 04-27-2025 ambulatory Zoraida Ned Facility[place] Start: 04-21-2025 ambulatory Zoraida Ned Facility :[facility] Start: 04-14-2025 End: 04-14-2025 Emergency department patient visit Dr. Zoraida Marino MD Work Phone: -Emergency Department Work Phone: Start: 11-09-2024 End: 11-09-[address] Zoraida Marino MD Work Phone: [facility] Work Phone: Start: 11-09-2024 End: 11-09-2024 Patient encounter procedure Maddison LOPEZ -Cardiovascular Services Work Phone: Start: 11-09-2024 End: 11-09-2024 ambulatory [facility] Facility:[facility] Start: 10-24-2024 End: 10-24-[address] Zoraida Marino MD -[facility] Work Phone: Start: 10-24-2024 End: 10-24-2024 [facility] Start: 10-10-2024 ambulatory [facility] Facility :[facility] Start: 10-10-[address] Verna Hui MD -[facility] Start: 10-04-2024 ambulatory Verna Pike ty:[facility] Start: 10-04-[address] Verna Hui MD -[facility] Start: 09-30-2024 Non-patient / Non-visit Dr. Shanon Bravo [facility] Work Phone: Start: 09-29-2024 Non-patient / Non-visit Dr. Shanon Bravo DO -[facility] Work Phone: Start: 09-28-2024 Non-patient / Non-visit Dr. Dieudonne Thompson own DO -[facility] Start: 09-27-2024 Non-patient / Non-visit Dr. Dieudonne Thompson own DO -[facility] Start: 09-27-2024 Non-patient / Non-visit Dr. Tricia doss MD -[facility] Work Phone: Start: 09-26-2024 Non-patient / Non-visit Dr. Jean Claude mccurdy DO [facility] Work Phone: Start: 09-26-2024 ambulatory [facility] Facility :[facility] Start: 09-26-2024 End: 09-30-2024 Evaluation and management of inpatient Dr. Shanon Bravo DO -Intensive Care Unit Work Phone: Start: 08-16-2024 End: 08-16-[address] Zoraida Marino MD -[facility] Work Phone: Start: 08-16-2024 End: 08-16-2024 ambulatory Zoraida Marino Facility:[facility] Start: 07-31-2024 End: 07-31-2024 Emergency department patient visit Dr. Baljit Fleming DO -Emergency Department Work Phone: Start: 06-01-2024 End: 06-01-2024 ambulatory EVAN WALDEN Facility:[facility] Start: 06-01-2024 End: 06-01-2024 Patient encounter procedure Evan Walden MD Work Phone: Neurology Comment on above: Parkinson's disease without dyskinesia or fluctuating manifestations (HCC) (Primary Dx); Anxiety and depression; Insomnia, unspecified type Start: 05-18-2024 End: 05-18-2024 ambulatory Zoraida Marino Facility:[facility] Start: 04-29-2024 End: 04-29-2024 ambulatory Zoraida Marino Facility:[facility] Start: 10-07-2023 End: 10-07-[address] Zoraida Marino Work Phone: [facility] Work Phone: Start: 10-07-2023 End: 10-07-[address] Zoraida Marino Work Phone: [facility]-Sleep Lab Work Phone: Start: 09-11-2023 End: 09-11-[address] Zoraida Marino Work Phone: [facility] Work Phone: Start: 09-11-2023 End: 09-11-[address] Zoraida Marino Work Phone: [facility]-Sleep Lab Work Phone: Start: 08-31-2023 End: 08-31-[address] [facility] Work Phone: Start: 08-26-2023 End: 08-26-[address] Zoraida Marino Work Phone: [facility] Internal Medicine Work Phone: Start: 08-17-2023 End: 08-17-[address] Zoraida Marino Work Phone: [facility] Internal Medicine Work Phone: Start: 08-14-2023 End: 08-14-[address] Zoraida Marino Work Phone: [facility] Work Phone: Start: 08-14-2023 End: 08-14-[address] Zoraida Marino Work Phone: [facility]-Sleep Lab Work Phone: Start: 07-22-2023 End: 07-22-[address] Zoraida Marino Work Phone: [facility] Work Phone: Start: 07-22-2023 End: 07-22-[address] Zoraida Marino Work Phone: [facility]-Laboratory Work Phone: Start: 07-02-2023 End: 07-02-[address] Zoraida Marino Work Phone: [facility] Neurology Work Phone: Start: 05-07-2023 End: 05-07-[address] Zoraida Marino Work Phone: [facility] Neurology Work Phone: Start: 10-13-2022 End: 10-13-[address] Zoraida Marino Work Phone: [facility] Work Phone: Start: 10-13-2022 End: 10-13-[address] Zoraida Marino Work Phone: [facility]-Laboratory Start: 10-09-2022 End: 10-09-[address] Zoraida Marino Work Phone: [facility] Neurology Start: 09-15-2022 End: 09-15-[address] Zoraida Marino Work Phone: [facility]-Pulmonary Services/Neurology Start: 08-14-2022 Non-patient / Non-visit Dr. Echevarria Work Phone: [facility] Start: 08-14-2022 End: 08-14-2022 Admission to same day surgery center Dr. Zoraida Marino Work Phone: [facility]-Endoscopy Start: 07-21-2022 End: 07-21-[address] Zoraida Marino Work Phone: [facility] Neurology Start: 02-24-2022 ambulatory Sabrina Acosta MA [facility] [place] Comment on above: Population Health [facility] ([facility]) Start: 01-31-2022 End: 01-31-[address] Linda Dominguez Work Phone: [facility] Start: 01-23-2022 End: 01-23-[address] Linda Dominguez Work Phone: [facility] Internal Medicine Start: 01-09-2022 End: 01-09-2022 [...] encounter procedure Dr. Linda Dominguez Work Phone: [facility] Start: 11-26-2021 End: 11-26-[address] Linda Dominguez Work Phone: [facility] Start: 11-22-2021 End: 11-22-[address] Linda Dominguez Work Phone: [facility] Start: 11-14-2021 End: 11-14-[address] Linda Dominguez Work Phone: [facility] Start: 11-13-2021 End: 11-13-2021 Emergency department patient visit Dr. Linda Dominguez Work Phone: [facility]-Emergency Department Start: 11-12-2021 Telephone encounter Linda klein MD Work Phone: [facility] [place] Comment on above: home health OT huber ng (severe backpain) Start: 11-11-2021 Patient Outreach Linda mansfield MD Work Phone: [facility] [place] Comment on above: Transition Of Care Start: 11-06-2021 Telephone encounter Linda klein MD Work Phone: [facility] [place] Comment on above: home health calling Start: 11-06-2021 Non-patient / Non-visit Dr. Brina Dominguez Work Phone: [facility] Start: 11-04-2021 Non-patient / Non-visit Dr. Brina Dominguez Work Phone: [facility] Start: 11-01-2021 Non-patient / Non-visit Dr. Brina Dominguez Work Phone: [facility] Start: 10-31-2021 Non-patient / Non-visit Dr. Brina Dominguez Work Phone: [facility] Start: 10-29-2021 Non-patient / Non-visit Dr. Brina Dominguez Work Phone: [facility] Start: 10-28-2021 Non-patient / Non-visit Dr. Brina Dominguez Work Phone: [facility] Start: 10-27-2021 Non-patient / Non-visit Dr. Brina Dominguez Work Phone: [facility] Start: 10-26-2021 Non-patient / Non-visit Dr. Brina Dominguez Work Phone: [facility] Start: 10-25-2021 Non-patient / Non-visit Dr. Brina Dominguez Work Phone: [facility] Start: 10-24-2021 Non-patient / Non-visit Dr. Brina Dominguez Work Phone: [facility] Start: 10-23-2021 End: 11-09-2021 Evaluation and management of inpatient Dr. Linda Dominguez Work Phone: [facility]-Transitional Care Unit Start: 10-23-2021 Non-patient / Non-visit Dr. Brina Dominguez Work Phone: [facility] Start: 10-22-2021 Non-patient / Non-visit Dr. Brina Dominguez Work Phone: [facility] Start: 10-21-2021 Non-patient / Non-visit Dr. Brina Dominguez Work Phone: [facility] Start: 10-20-2021 Non-patient / Non-visit Dr. Brina Dominguez Work Phone: [facility] Start: 10-19-2021 Non-patient / Non-visit Dr. Brina Dominguez Work Phone: [facility] Start: 10-18-2021 Non-patient / Non-visit Dr. Brina Dominguez Work Phone: [facility] Start: 10-17-2021 Non-patient / Non-visit Dr. Brina Dominguez Work Phone: [facility] Start: 10-16-2021 Non-patient / Non-visit Dr. Brina Dominguez Work Phone: [facility] Start: 10-15-2021 Non-patient / Non-visit Dr. Brina Dominguez Work Phone: [facility] Start: 10-14-2021 Non-patient / Non-visit Dr. Brina Dominguez Work Phone: [facility] Start: 10-11-2021 Non-patient / Non-visit Dr. Brina Dominguez Work Phone: [facility] Start: 10-10-2021 Non-patient / Non-visit Dr. Brina Dominguez Work Phone: [facility] Start: 10-09-2021 Non-patient / Non-visit Dr. Brina Dominguez Work Phone: [facility] Start: 10-08-2021 Non-patient / Non-visit Dr. Brina Dominguez Work Phone: [facility] Start: 10-07-2021 Non-patient / Non-visit Dr. Brina Dominguez Work Phone: [facility] Start: 10-06-2021 Non-patient / Non-visit Dr. Brina Dominguez Work Phone: [facility] Start: 10-05-2021 Non-patient / Non-visit Dr. Brina Dominguez Work Phone: [facility] Start: 10-04-2021 Non-patient / Non-visit Dr. Brina Dominguez Work Phone: [facility] Start: 10-03-2021 Non-patient / Non-visit Dr. Brina Dominguez Work Phone: [facility] Start: 10-02-2021 Non-patient / Non-visit Dr. Brina Dominguez Work Phone: [facility] Start: 10-01-2021 Non-patient / Non-visit Dr. Brina Dominguez Work Phone: [facility] Start: 09-30-2021 Non-patient / Non-visit Dr. Brina Dominguez Work Phone: [facility] Start: 09-27-2021 Non-patient / Non-visit Dr. Brina Dominguez Work Phone: [facility] Start: 09-26-2021 Non-patient / Non-visit Dr. Brina Dominguez Work Phone: [facility] Start: 09-25-2021 Non-patient / Non-visit Dr. Brina Dominguez Work Phone: [facility] Start: 09-24-2021 Non-patient / Non-visit Dr. Brina Dominguez Work Phone: [facility] Start: 09-23-2021 Non-patient / Non-visit Dr. Brina Dominguez Work Phone: [facility] Start: 09-22-2021 Non-patient / Non-visit Dr. Brina Dominguez Work Phone: [facility] Start: 09-21-2021 End: 10-23-2021 Evaluation and management of inpatient [facility]. Linda [facility]inguez [facility] Start: 09-21-2021 Non-patient / Non-visit Dr. Brina Dominguez Work Phone: [facility] Start: 06-12-2021 End: 06-12-2021 Subsequent hospital visit by physician Xr [facility] Work Phone: Radiology Comment on above: Chronic [...] compl ete minimum 2 views Elidia Dacaiohausen [employer].SURFACER Work Phone: Start: 02-07-2021 Lipid 1996 panel [...] RSV Vaccine (1 - 1-dose 75+ series) [facility] Start: 02-07-2026 Lipid panel Lipid Screening [facility] Start: 02-07-2026 LIPID SCREEN LIPID SCREEN [facility] Start: 05-22-2025 PROSTATE CANCER SCRE ENING DISCUSSION PROSTATE CANCER SCREENING DISCUSSION [facility] Start: 05-22-2025 Prostate specific an tigen measurement Prostate Cancer Screening Discussion [facility] Start: 04-14-2025 [facility] Start: 09-30-2024 Patient discharge [facility] Start: 09-29-2024 Care planning and pr oblem solving actions [facility] Start: 09-28-2024 [facility] Start: 09-28-2024 Determination of Chao hmond Agitation Sedation Scale (RASS) score with assessment for d [facility] Start: 09-27-2024 End: 09-27-2024 [facility] Start: 09-27-2024 Provision of overbed trapeze [facility] Start: 09-27-2024 Ambulation therapy management [facility] Start: 09-27-2024 Application of device [facility] Start: 09-27-2024 Catheterization of vein [facility] Start: 09-27-2024 Exercises [facility] Start: 09-27-2024 Following clinical pathway protocol [facility] Start: 09-27-2024 Introduction of urin pawel catheter [facility] Start: 09-27-2024 Measuring intake and output [facility] Start: 09-27-2024 Neurovascular assessment [facility] Start: 09-27-2024 Patient education [facility] Start: 09-27-2024 Procedure discontinued [facility] Start: 09-27-2024 Provision of activit y privileges [facility] Start: 09-27-2024 Recommendation to continue with treatment [facility] Start: 09-27-2024 Referral to occupati onal therapist [facility] Start: 09-27-2024 Vital signs measurements [facility] Start: 09-27-2024 Wound care [facility] Start: 09-27-2024 Measuring intake and output [facility] Start: 09-27-2024 Measuring intake and output [facility] Start: 09-27-2024 Care planning and pr oblem solving actions [facility] Start: 09-27-2024 Measuring intake and output [facility] Start: 09-27-2024 Oral health maintenance [facility] Start: 09-26-2024 Following clinical pathway protocol [facility] Start: 09-26-2024 Application of ice collar, cap or bag [facility] Start: 09-26-2024 Bedrest [facility] Start: 09-26-2024 Consultation [facility] Start: 09-26-2024 Insertion of cathete r into peripheral vein [facility] Start: 09-26-2024 Neurovascular assessment [facility] Start: 09-26-2024 Providing care accor ding to standard [facility] Start: 09-26-2024 Referral to service [facility] Start: 09-26-2024 Skin care [facility] Start: 09-26-2024 [facility] Start: 09-26-2024 Measuring intake and output [facility] Start: 09-26-2024 Admission procedure [facility] Start: 09-14-2024 End: 09-14-2024 Patient encounter procedure 09/14/2024 1:30 PM EST Office Visit Neurology [address] [place] [address] Evan Walden MD [address] [place] [id number] 3 month follow up Neurology Comment on above: 3 month follow up Start: 08-17-2024 Patient referral [facility] Work Phone: Start: 06-01-2024 End: 06-01-2024 Patient encounter procedure 06/01/2024 3:00 PM EDT Office Visit Neurology [address] [place] [address] Evan Walden MD [address] [place], [place] [address] having tremors in his hands, involutary tongue movements Neurology Comment on above: having tremors in hi s hands, involutary tongue movements Start: 04-03-2024 Covid-19 Vaccine ( season) Covid-19 Vaccine ( season) [facility] Start: 04-03-2024 Covid-19 Vaccine ( season) Covid-19 Vaccine ( season) [facility] Start: 04-03-2024 Influenza vaccination Influenza Vacc ine (#1) [facility] Start: 02-08-2024 DIABETES SCREEN DIABETES SCREEN [facility] Start: 02-08-2024 Diabetes Screening Diabetes Screenin g [facility] Start: 10-21-2023 Urine microalbumin profile [facility] Start: 08-14-2022 Colsc flx w/rmvl of tumor polyp lesion snare tq COLONOSCOPY W/LESION REMOVAL [facility] Start: 08-14-2022 Patient discharge [facility] Start: 07-11-2022 BP CONTROLLED (<130/80) BP CONTROLLE D (<130/80) [facility] Start: 04-03-2022 Influenza vaccination [facility] Start: 02-08-2022 ANNUAL PCP TEAM WASH OPERATOR MACK DISEASE VISIT ANNUAL PCP TEAM CHRONIC DISEASE VISIT [facility] Start: 02-08-2022 SHINGRIX VACCINE (1 of 2) CORBIN GRIX VACCINE (1 of 2) [facility] Comment on above: Postponed from 09/09 (Declined at this time) Start: 01-23-2022 Patient referral [facility] Work Phone: Start: 11-16-2021 COVID-19 VACCINE (4 - Booster for Pfizer series) COVID-19 VACCINE (4 - Booster for Pfizer series) [facility] Start: 11-09-2021 Development of care plan [facility] Work Phone: Start: 11-09-2021 Patient discharge [facility] Work Phone: Start: 11-06-2021 Referral to service [facility] Work Phone: Start: 11-04-2021 [facility] Work Phone: Start: 10-28-2021 Consultation [facility] Work Phone: Start: 10-27-2021 [facility] Work Phone: Start: 10-26-2021 [facility] Work Phone: Start: 10-26-2021 Continuous pulse oximetry [facility] Work Phone: Start: 10-26-2021 Oxygen therapy [facility] Work Phone: Start: 10-26-2021 Dual pressure sponta neous ventilation support [facility] Work Phone: Start: 10-25-2021 [facility] Work Phone: Start: 10-24-2021 Developing a treatme nt plan [facility] Work Phone: Start: 10-24-2021 Development of care plan [facility] Work Phone: Start: 10-24-2021 Application of elast ic bandage [facility] Work Phone: Start: 10-23-2021 Referral to general surgeon [facility] Work Phone: Start: 10-23-2021 Patient referral to dietitian [facility] Work Phone: Start: 10-23-2021 Peripherally inserte d central catheter care [facility] Work Phone: Start: 10-23-2021 Consultation for treatment [facility] Work Phone: Start: 10-23-2021 Wound care [facility] Work Phone: Start: 10-23-2021 Admission procedure [facility] Work Phone: Start: 10-23-2021 Measuring intake and output [facility] Work Phone: Start: 10-23-2021 Patient referral to dietitian [facility] Work Phone: Start: 10-23-2021 Referral to occupati onal therapist [facility] Work Phone: Start: 10-23-2021 Referral to service [facility] Work Phone: Start: 10-23-2021 Vital signs measurements [facility] Work Phone: Start: 10-23-2021 [facility] Work Phone: Start: 10-23-2021 Patient discharge [facility] Work Phone: Start: 10-23-2021 [facility] Work Phone: Start: 10-18-2021 Administration of to josselin parenteral nutrition [facility] Work Phone: Start: 10-17-2021 Administration of to josselin parenteral nutrition [facility] Work Phone: Start: 10-17-2021 [facility] Work Phone: Start: 10-16-2021 Referral to service [facility] Work Phone: Start: 10-16-2021 Administration of to josselin parenteral nutrition [facility] Work Phone: Start: 10-16-2021 [facility] Work Phone: Start: 10-15-2021 Administration of to josselin parenteral nutrition [facility] Work Phone: Start: 10-15-2021 [facility] Work Phone: Start: 10-14-2021 Administration of to josselin parenteral nutrition [facility] Work Phone: Start: 10-13-2021 [facility] Work Phone: Start: 10-13-2021 Administration of to josselin parenteral nutrition [facility] Work Phone: Start: 10-12-2021 Administration of to josselin parenteral nutrition [facility] Work Phone: Start: 10-11-2021 End: 10-12-2021 [facility] Work Phone: Start: 10-11-2021 Consultation [facility] Work Phone: Start: 10-11-2021 Administration of to josselin parenteral nutrition [facility] Work Phone: Start: 10-11-2021 Consultation for treatment [facility] Work Phone: Start: 10-10-2021 Referral to occupati onal therapist [facility] Work Phone: Start: 10-10-2021 Referral to service [facility] Work Phone: Start: 10-10-2021 Wound care [facility] Work Phone: Start: 10-10-2021 Administration of to josselin parenteral nutrition [facility] Work Phone: Start: 10-09-2021 End: 10-09-2021 Administration of total parenteral nutrition [facility] Work Phone: Start: 10-08-2021 Administration of to josselin parenteral nutrition [facility] Work Phone: Start: 10-07-2021 Administration of to josselin parenteral nutrition [facility] Work Phone: Start: 10-06-2021 Administration of to josselin parenteral nutrition [facility] Work Phone: Start: 10-05-2021 Administration of to josselin parenteral nutrition [facility] Work Phone: Start: 10-05-2021 Elevation of head of bed [facility] Work Phone: Start: 10-04-2021 Administration of to josselin parenteral nutrition [facility] Work Phone: Start: 10-03-2021 [facility] Work Phone: Start: 10-03-2021 Administration of to josselin parenteral nutrition [facility] Work Phone: Start: 10-02-2021 Administration of to josselin parenteral nutrition [facility] Work Phone: Start: 10-01-2021 Administration of to josselin parenteral nutrition [facility] Work Phone: Start: 09-29-2021 Care planning and pr oblem solving actions [facility] Work Phone: Start: 09-26-2021 Incentive spirometry [facility] Work Phone: Start: 09-25-2021 Introduction of urin pawel catheter [facility] Work Phone: Start: 09-24-2021 Inhalation therapy procedure [facility] Work Phone: Start: 09-22-2021 Application of ice collar, cap or bag [facility] Work Phone: Start: 09-22-2021 End: 09-22-2021 Referral to service [facility] Work Phone: Start: 09-21-2021 Application of intermittent pneumatic compression device [facility] Work Phone: Start: 09-21-2021 Admission procedure [facility] Work Phone: Start: 09-21-2021 Following clinical pathway protocol [facility] Work Phone: Start: 09-21-2021 Admission procedure [facility] Work Phone: Start: 09-21-2021 Assessment of risk o f venous thromboembolism [facility] Work Phone: Start: 09-21-2021 Catheterization of vein [facility] Work Phone: Start: 09-21-2021 Insertion of cathete r into peripheral vein [facility] Work Phone: Start: 09-21-2021 Providing care accor ding to standard [facility] Work Phone: Start: 09-21-2021 [facility] Work Phone: Start: 09-21-2021 Patient referral to dietitian [facility] Work Phone: Start: 09-20-2021 Adult depression screening assessment DEPRESSION SCREENING [facility] Start: 2009 SHINGRIX VACCINE (1 of 2) CORBIN GRIX VACCINE (1 of 2) [facility] Start: 2004 COLOGUARD (FIT-DNA) COLOGUARD (FIT-D NA) [facility] Start: 2004 Colonoscopy COLONOSCOPY [facility] Start: 2004 COLORECTAL CANCER SCREENING COLORECTAL CANCER SCREENING [facility] Start: [address] COLONOGRAPHY [facility] Start: 2004 FECAL OCCULT BLOOD FECAL OCCULT BLOO D [facility] Start: 2004 Screening for malign ant neoplasm of colon [facility] Start: 2004 SIGMOIDOSCOPY SIGMOIDOSCOPY [facility] Start: 1977 Anxiety Screening Anxiety Screening [facility] Start: 1977 BP Controlled (<130/80) BP Controlle d (<130/80) [facility] Start: 1977 Depression Screening Depression Scre ening [facility] Start: 1977 HEPATITIS C SCREENING HEPATITIS C [facility] Start: 1977 Hepatitis C screening Hepatitis C [facility] Start: 1977 HIV SCREENING HIV SCREENING [facility] Start: 1977 HIV screening HIV Screening [facility] Start: 1964 COVID-19 VACCINE (1) COVID-19 VACCIN E (1) [facility] Njx dx/ther sbst int rlmnr crv/thrc w/img gdn EPI CERV OR THORC W/IMAGING Procedures Routine Spinal stenosis of cervical region Ordered: 01/03/2022 [facility] Work Phone: Comment on above: Ordered: 01/03/2022 Patient Education [facility] Work Phone: Patient referral [facility] Work Phone: Polysomnography [facility] US.doppler Lower extremity vein [facility] Immunizations Immunization Date Immunization Notes Care Provider Fa simon 05-29-2022 Covid Pfizer Bivalen t Booster Dr. Zoraida Marino Work Phone: [facility] 07-18-2021 Covid (Pfizer) Dr. Linda monte Work Phone: [facility] 11-18-2020 Covid (Pfizer) Dr. Linda monte Work Phone: [facility] 10-27-2020 Covid (Pfizer) Dr. Linda monte Work Phone: [facility] 08-19-2018 influenza virus vaccine, unspecified formulation Xr [place] Work Phone: [facility] 10-20-2013 tetanus toxoid, redu solo diphtheria toxoid, and acellular pertussis vaccine, adsorbed Linda Dominguez MD Work Phone: [facility] Payers Date Payer Category Payer Self-pay [id number] 2023 Medicare [id number] 2002 Medicare MEDICARE MEDICAR E A AND B [id number] 2002-Present [phone] [address] [address] [place] [address] Medicare [id number] 2002 Medicare [id number] Medicaid [id number] Medicare [id number] Unknown [id number] Unknown [id number] Unknown [id number] 2.840.1.180262.3.579.2.462 Unknown [id number] 2.16.840.1.878264.3.579.2.462 Unknown [id number] 2.16.840.1.665030.3.579.2.462 Unknown [id number] 2.16.840.1.009798.3.579.2.462 Unknown [id number] 2.16.840.1.140796.3.579.2.462 Unknown [id number] 2.16.840.1.185413.3.579.2.462 Unknown [id number] 2.16.840.1.352688.3.579.2.462 Unknown [id number] 2.16.840.1.609471.3.579.2.462 Unknown [id number] 2.16.840.1.537350.3.579.2.462 Unknown [id number] 2.16.840.1.456027.3.579.2.462 Unknown [id number] 2.16.840.1.560267.3.579.2.462 Unknown [id number] 2.16.840.1.145782.3.579.2.462 Unknown [id number] 2.16.840.1.352630.3.579.2.462 Unknown [id number] 2.16.840.1.003736.3.579.2.462 Unknown [id number] 2.16.840.1.592971.3.579.2.462 Unknown [id number] 2.16.840.1.132017.3.579.2.462 Unknown [id number] 2.16.840.1.802171.3.579.2.462 Unknown [id number] 2.16.840.1.321956.3.579.2.462 Unknown [id number] 2.16.840.1.558669.3.579.2.462 Social History Date Type Detail Facility Start: 09-04-2017 End: 04-14-2025 Tobacco smoking status NHIS Ex-smoker [facility] Work Phone: Start: 07-11-2021 End: 06-01-2024 Alcohol intake Current non-drinker of alcohol (finding) [facility] Start: 02-08-2021 History SDOH Alcohol Frequency 1 [facility] Start: 02-08-2021 History SDOH Alcohol Std Drinks 98 [facility] Start: 02-08-2021 History SDOH Social Connections Get Together 2 [facility] Start: 02-08-2021 History SDOH Social Connections Yazidism 3 [facility] Start: 02-08-2021 History SDOH Financial 4 [facility] Start: 02-08-2021 Education 14 [facility] Start: 04-25-2014 Tobacco Comment quit 1981 [facility] Start: 1960 Sex Assigned At Not on file [facility] Start: 10-23-2021 End: 08-31-2023 Tobacco smoking status PAIS Unknown if ever smoked [facility] Start: 05-18-2018 Heavy [facility] Start: 05-18-2018 None [facility] Start: 05-18-2018 Spouse/ Significant Other [facility] Start: 05-23-2018 Cigarettes [facility] Start: 1960 Sex Assigned At Male [facility] Start: 04-30-2021 End: 01-08-2022 Exposure to SARS-CoV-2 (event) Not sure [facility] History of tobacco use Current smoker [facility] Start: 09-04-2017 Tobacco use and exposure Smokeless tobacco non-user [facility] Start: 02-08-2021 End: 06-01-2024 History of Social function [facility] Start: 02-08-2021 End: 06-01-2024 Social connection and isolation panel [facility] Do you belong to any clubs or organizations such as catholic groups, unions, fraternal or athletic groups, or school groups? No [facility] How often do you att end meetings of the clubs or organizations you belong to? Patient declined [facility] Are you now , , , , never or living with a partner? [facility] How often to you hav e a drink containing alcohol? Never [facility] How hard is it for y ou to pay for the very basics like food, housing, medical care, and heating Not very hard [facility] Do you feel stress - tense, restless, nervous, or anxious, or unable to sleep at night because your mind is troubled all the time - these days [OSQ] To some extent [facility] (I/We) worried wheth er (my/our) food would run out before (I/we) got money to buy more. Never true [facility] Start: 11-11-2024 Sex Male (finding) [facility] Medical Equipment Procedure Code Equipment Code [...] Appendectomy, laparoscopic Plant polysaccharide haemostatic agent, bioabsorbable ([id number] FDA Start: 09-24-2021 Appendectomy, laparoscopic 45mm Standard [...] Assessment Result Facility 09-30-2024 Functional status Chair [facility] Work Phone: 11-09-2021 Functional status Activity Abili ty With Assist of 1 [facility] Work Phone: 11-02-2021 Functional status Ambulates [facility] Work Phone: 10-25-2021 Functional status Tolerates Activity Well [facility] Work Phone: 10-22-2021 Functional status Chair [facility] Work Phone: Mental Status Date Assessment Result Facility 09-30-2024 Cognitive function Voice/Name [facility] Work Phone: 07-31-2024 Cognitive function Awake;Alert;A ppropriate;Follow s Commands [facility] Work Phone: 08-14-2022 Cognitive function Level Of Cons ciousness Awake;Appropriate [facility] Work Phone: 08-14-2022 Cognitive function Voice/Name [facility] Work Phone: 11-09-2021 Cognitive function Voice/Name [facility] Work Phone: 10-25-2021 Cognitive function Intact [facility] Work Phone: 10-23-2021 Cognitive function Voice/Name [facility] Work Phone: 10-21-2021 Cognitive function Appropriate;Cooperativ e [facility] Work Phone: Clinical Notes 06-12-2021 to 04-14-2025 Note Date & Type Note Facility 04-14-2025 Discharge summary [facility] 04-14-2025 Radiology Diagnostic study note [facility] Imaging Services [address] [place], [place] [address] Lumbar Spine 2 or 3 Views MR#: [id number] Acct: [id number] Name: OLGA MARTIN Rep #: [id number] : 1960 M 64 From: [place] MD PCP: Dr. Zoraida Marino MD Status: REG ER Study:Lumbar Spine 2 or 3 Views Date of Exam: 04/14/25 Exam# [id number] Ordering Dr: Aad Neal MD PROCEDURE: LUMBAR SPINE 2 OR [...] thoracolumbar wedge compression fracture deformities. Reading Location: [facility] CC: Dr. Zoraida Marino MD; Dr. Franklin Neal MD ~ Academic Department Chair: Signed [facility] 04-14-2025 Discharge summary Note Date/Time April 14, 2025 9:10pm [facility] Medical Records Department [address] [place] [address] Emergency Department Summary 04/14/25 MR#: [id number] Acct: [id number] Name: OLGA MARTIN Rep #:[id number] : 1960 64 From: Franklin Neal MD [...] similar symptoms: Yes Recent Illness/Hospitalization: No PFSH [facility] Medical History Fracture, intertrochanteric, right femur Cellulitis [...] % (Auto) 61.0 Lymph % (Auto) 26.8 [place] % (Auto) 10.0 Eos % (Auto) 1.0 [...] thoracolumbar wedge compression fracture deformities. Reading Location: [facility] Treatment and Re-Evaluation :: Patient and were [...] Care Provider] - As Needed Print Language: Armenian Disposition Disposition: Home, Self Care What to do if you have Problems For any increased pain, shortness of breath, bleeding, nausea or vomiting, chestpain, or any unexpected problems, contact your Primary Care Provider. Call [facility] ([phone]) or report to the closest Emergency Room. Call 911 if necessary. 04/14/252109 <Electronically signed by Franklin Neal MD> Cosigner Signature (if applicable): CC: Dr. Zoraida Marino MD ~ Signed [facility] Work Phone: [phone]) 306-173202-28-2025 [facility]02-25-2025 [facility]01-14-2025 Evaluation note* Diagnosis Onset Date Resolution [...] arch 2024 7:54am Essential hypertension noneactive [facility] 2024 7:54am Hospital discharge follow-up noneact aby October 24, 2024 7:54am [facility] Work Phone: 1(272) 620-614410-30-2024 Instructions* Patient Instructions* Evan Walden MD - [...] try to help nausea. documented in this encounterOhio [facility]-2024 NoteHNO ID: [id number] Author: EVAN WALDEN MD Service: ? Author Type: Physician Type: Progress Notes Filed: 06/01/2024 16:44 Note Text: NEW PATIENT EVALUATION Subjective HPI Olga Martni is a 63 year old right-handed male [...] and tongue tremors. (more content not included)... [facility]10-30-2024 History of Present illness Narrative* Evan Walden [...] will consider seeing 's psychiatrist. Elidia Gamboa SURFACER 05/30/21 and 07/11/21: Ordered MRI C-spine but [...] this is more likely degenerative signal than financial foundations representative of discitis. I see no sign [...] regarding the above issues. Evan Walden MD [facility] Neurology documented in this encounterOhio [facility]07-[facility] History of Present illness Narrative* Sabrina Acosta [...] 24, 2022 9:37 AM documented in this encounterOhio [facility]06-09-2022 History of Present illness Narrative* Nisa Hilario APRN.SURFACER - 01/09/2022 10:59 AM EDT SUBJECTIVE: Olga Martin presents to [facility] Pain Management Department for a follow [...] frustrated. Patient reports he was admitted to [facility] for appendicitis with perforation in Sep 2021, he developed a wound infection and was dealing with that for several months. This caused a delay in follow up visits He struggles with transportation issues and lives in [place]. Patient has a history of spinal fracture [...] suspiciousactivity was identified. 01/09/2022 by Nisa Hilario APRN.SURFACER Narcotic Agreement reviewed and signed?: N/A on [...] which included preparing to see the patient, [id number] patient care, completing clinical documentation, performing a medically appropriate examination and ordering medications, tests, or procedures. The above plan and management options were discussed at length with patient. Patient is in agreement with the above and verbalized understanding. Nisa Hilario APRN, CNP January 09, 2022 documented in this encounterOhio [facility]06-03-2022 Miscellaneous Notes* Telephone Encounter - Saba Ny RN - 01/03/2022 2:51 PM EDT Results sent via [email or web address] at this time * Telephone Encounter - [...] upper extremity radicular symptom documented in this encounterOhio [facility]06-02-2022 Nurse Note* Josiane Goff RN - 01/02/2022 [...] 2022 TIME: 12:26 PM documented in this encounterOhio State University [facility]04-14-2022 Miscellaneous Notes* Telephone Encounter - Kera Worrell [...] at the Continuity of Care document from [facility] on 11/04/21 there was an X- ray [...] APRN.CNS - 11/12/2021 3:08 PM EDT Check [facility] records to see if this was addressed. If severe symptoms presently then recommend ER visit to evaluate and treat * Telephone Encounter - Felicia Walter LPN - 11/12/2021 2:20 PM EDT Moriah from [facility] Home Health OT calling she was at patient home to do OT eval one time visit. Patient was having so much lumbar area back pain rated at 10 out of a 10, could hardly get out out of bed. .Patient had told her he had fallen in bathroom while he was in the hospital. Patient said he has toget a lead fire protection engineer on his back pain before he can do anything. She is not aware of him taking any medications for his back pain. documented in this encounterOhio [facility]04-12-2022 History of Present illness Narrative* Kera Worrell LPN - 11/12/2021 2:16 PM EDT Message left again for return call to complete TCM note and arrange hospital follow up. * Kera Worrell LPN - 11/11/2021 1:43 PM EDT Message left for pt to return call to a nurse to complete TCM note and arrange hospital follow up with pcpc's LATHE WINDER. documented in this encounterOhio [facility]04-07-2022 Miscellaneous Notes* Telephone Encounter - Lita Esquivel [...] - 11/06/2021 12:43 PM EDT Ruthy from [facility] Home Health calling received orders for prison, PT/OT. Patient is discharging from TCU on 11/09 he had appe with preformation and abscess surgery done by Dr Taveras. Asking if PCP would follow patient and sign orders? Please advise documented in this encounterOhio [facility]11-10-2021 History of Present illness Narrative* Kamilla Banerjee [...] 12, 2021 10:31 AM documented in this encounterOhio State University [facility]11-10-2021 Nurse Note* Miranda Ramos RN - 06/12/2021 10:00 AM EST Message left on Voicemail to arrive @ 1040 & have driver operator home for MRI tomorrow. Nestor Ramos RN [facility]11-10-2021 Nurse Note* Miranda Ramos RN - 06/12/2021 10:00 AM EST Message left on Voicemail to arrive @ 1040 & have driver operator home for MRI tomorrow. Nestor Ramos RN [facility]* Diagnosis Onset Date Resolution Status Intra-abdominal abscess acut e Postoperative wound infection acute Dehydration resolved Diverticulum of small intestine resolved Debility acute Essential tremor acute Intra-abdominal abscess acut e Pancreatitis acute Postoperative wound infection acute Chronic low back pain chroni c Hypertension chronic [facility] Work Phone: Evaluation note* Diagnosis Spinal stenosis of cervical region Spinal stenosis in cervical region [facility]* Diagnosis Spinal stenosis of cervical region- Primary Spinal stenosis in cervical region [facility]* Diagnosis Abnormal involuntary movement- Primary Abnormal involuntary movements Spinal stenosis of cervical region Spinal stenosis in cervical region Cervicalgia documented [facility] this [facility]* Diagnosis Onset [...] acute Tremor acute Chronic lower back pain lunchroom monitor mack Establishing care with new doctor, encounter for noneactive Essential hypertension nonea [facility] Work Phone: Evaluation note* Diagnosis Onset Date Resolution Status Carpal tunnel syndrome, right acute Cauda equina syndrome chroni c Cerebrovascular small vessel disease chronic Essential tremor chronic Foot drop, bilateral chronic Rubral tremor chronic Carpal tunnel syndrome, right acute Cauda equina syndrome chroni c Cerebrovascular small vessel disease chronic Essential tremor chronic Foot drop, bilateral chronic Rubral tremor chronic [facility] Work Phone: Evaluation note* Diagnosis Onset Date Resolution Status Essential tremor chronic Rubral tremor chronic [facility] Work Phone: Evaluation note* Diagnosis Onset Date Resolution Status Rubral tremor chronic PTSD (post-traumatic stress disorder) acute Tremor acute Chronic lower back pain lunchroom monitor mack Essential hypertension nonea orive [facility] Work Phone: Evaluation note* Diagnosis Onset Date Resolution Status PTSD (post-traumatic stress disorder) acute Tremor acute Chronic lower back pain lunchroom monitor mack Essential hypertension nonea ctive Tremor acute Severe obstructive sleep apnea noneactive Monaco's cerebellar degeneration acute MADDIE (obstructive sleep apnea) acute [facility] Work Phone: Evaluation note* Diagnosis Chronic right shoulder pain Pain in joint, shoulder region documented in this encounter [facility] note* Diagnosis Parkinson's disease without dyskinesia or fluctuating manifestations (HCC)- Primary Anxiety and depression Dysthymic disorder Insomnia, unspecified type documented in this encounter [facility] noteNo assessment information availableWGuernsey Memorial Hospital Work Phone: Hospital Discharge instructionsWGuernsey Memorial Hospital Work Phone: Reason for referral (narrative)* Diagnostic Procedure Only (Routine) - Closed Specialty Diagnoses / Procedures Referred By Contac t Referred To Contact XR IMAGING Diagnoses Chronic right shoulder pain Procedures XR SHOULDER GENERAL 3V OR MORE AP/TRUE AP/OTHER RT X-RAY SHOULDER COMPLET MIN 2 VIEWS Elidia Gamboa APRN.CNP [id number] [id number] Xr Imaging [facility] Referral ID Status Reason Start Date Expiration Date V isits Requested Visits Authorized Closed Auto-Generate d Referral 05/30/2021 06/29/2022 1 1 [facility] for referral (narrative)No reason for referral information availableWGuernsey Memorial Hospital Work Phone: Reason for visit Narrative* Diagnostic Procedure Only (Routine) - Closed Specialty Diagnoses / Procedures Referred By Contac t Referred To Contact XR IMAGING Diagnoses Chronic right shoulder pain Procedures XR SHOULDER GENERAL 3V OR MORE AP/TRUE AP/OTHER RT X-RAY SHOULDER COMPLET MIN 2 VIEWS Elidia Gamboa APRN.CNP [address] [id number] Xr Imaging [facility] Referral ID Status Reason Start Date Expiration Date V isits Requested Visits Authorized [id number] Closed Auto-Generate d Referral 05/30/2021 06/29/2022 1 1 [facility] Chief Complaint and Reason for Visit Chief Complaint APPENDICITIS WITH NC CROPERFORATION ACUTE APPENDICITIS ACUTE APPENDICITIS ACUTE APPENDICITIS [...] back pain Hypertension Chief Complaint APPENDICITIS WITH NC CROPERFORATION ACUTE APPENDICITIS ACUTE APPENDICITIS ACUTE APPENDICITIS [...] low grade temp WOUND CHECK WOUND CHECK LATHE WINDER, EST. CARE, PT NEEDS NPP TREMOR Reason [...] LAB WORK October 10, 2024 6:4 0am PRISON DISCHARGE October 24 7:54am RT LOWER LEG [...] 26, 2024 7:17pm PTSD (post-traumatic stress disorder) [facility] 2024 7:54am Uvular swelling October 24, 2024 [...] No October 24, 2021 11:49am Power of Director Social Yes October 24 11:49am Advance Directive Response Recorded Date/ Time Name of Medical Power of Director Social Briana Martin , October 24, 2021 11:49am Advance Directives No November 12 10:38am Living Will No November 13, 2021 6:29am Power of Director Social No November 13 6:29am Advance Directive Response Recorded Date/ Time Advance Directives No February 25 2:05pm Living Will No August 13 11:17am Power of Director Social No August 13, 2022 11:17am Advance Directive Response Recorded Date/ Time Advance Directives No March 12, 2023 7:16am Living Will No March 12 7:16am Power of Director Social No March 12 7:16am Advance Directive Response Recorded Date/ Time Advance Directives No March 12, 2023 8:16am Living Will No March 12 8:16am Power of Director Social No March 12 023 8:16am Advance Directive Response Recorded Date/ Time Living Will No July 31 11:20am Do you have a Healthcare Power of Director Social? No July 31, 2024 11:20am Living Will No September 26 9:47pm Do you have a Healthcare Power of Director Social? No September 26, 2024 9:47pm Advance Directives No March 12, 2023 8:16am Advance Directive Response Recorded Date/ Time Do you have a Healthcare Power of Director Social? Yes April 14, 2025 6:36pm Advance Directives No March 12, 2023 8:16am Summary Purpose Reason for Referral Specialty Diagnoses / Procedures Referred By Contac t Referred To Contact MR IMAGING Diagnoses Spinal stenosis of cervical region Procedures MRI CERVICAL SPINE WO IVCON MRI SPINAL CANAL CERVICAL W/O CONTRAST MATRL Kristopher Corbin MD [address] [facility] [address] [place] [address] Mr Imaging Referral ID Status Reason Start Date Expiration Date V isits Requested Visits Authorized [id number] Closed Auto-Generate d Referral 08/26/2021 09/25/2022 1 1 Specialty Diagnoses / Procedures Referred By Vijaya t Referred To Contact Diagnoses Abnormal involuntary movement Procedures CONSULT TO FUNCTIONAL MOVEMENT DISORDERS (FMD) OFFICE/OUTPATIENT [facility] 60-74 MINUTES Nisa Hilario, [employer] SOCIAL WORKER.SURFACER [address] [place] [address] Referral ID Status Reason Start Date Expiration Date Visits Requested Visits Authorized [id number] Authorized PCP Requested Referral 01/09/2022 01/09/2023 1 [...] or prosecute any alcohol or drug abuse patient.[facility] CenterIn the event this information is protected by the Federal Confidentiality of Alcohol and Drug Abuse Patient Records regulations: The Federal rules restrict any use of the information to criminally investigate or prosecute any alcohol or drug abuse patient.[facility] CenterIn the event this information is protected by the Federal Confidentiality of Alcohol and Drug Abuse Patient Records regulations: The Federal rules restrict any use of the information to criminally investigate or prosecute any alcohol or drug abuse patient.[facility] CenterIn the event this information is protected by the Federal Confidentiality of Alcohol and Drug Abuse Patient Records regulations: The Federal rules restrict any use of the information to criminally investigate or prosecute any alcohol or drug abuse patient.[facility] CenterIn the event this information is protected by the Federal Confidentiality of Alcohol and Drug Abuse Patient Records regulations: The Federal rules restrict any use of the information to criminally investigate or prosecute any alcohol or drug abuse patient.[facility] CenterIn the event this information is protected by the Federal Confidentiality of Alcohol and Drug Abuse Patient Records regulations: The Federal rules restrict any use of the information to criminally investigate or prosecute any alcohol or drug abuse patient.[facility] CenterIn the event this information is protected by the Federal Confidentiality of Alcohol and Drug Abuse Patient Records regulations: The Federal rules restrict any use of the information to criminally investigate or prosecute any alcohol or drug abuse patient.[facility] CenterIn the event this information is protected by the Federal Confidentiality of Alcohol and Drug Abuse Patient Records regulations: The Federal rules restrict any use of the information to criminally investigate or prosecute any alcohol or drug abuse patient.[facility] CenterIn the event this information is protected by the Federal Confidentiality of Alcohol and Drug Abuse Patient Records regulations: The Federal rules restrict any use of the information to criminally investigate or prosecute any alcohol or drug abuse patient.[facility] CenterIn the event this information is protected by the Federal Confidentiality of Alcohol and Drug Abuse Patient Records regulations: The Federal rules restrict any use of the information to criminally investigate or prosecute any alcohol or drug abuse patient.[facility] CenterIn the event this information is protected by the Federal Confidentiality of Alcohol and Drug Abuse Patient Records regulations: The Federal rules restrict any use of the information to criminally investigate or prosecute any alcohol or drug abuse patient.[facility] CenterIn the event this information is protected by the Federal Confidentiality of Alcohol and Drug Abuse Patient Records regulations: The Federal rules restrict any use of the information to criminally investigate or prosecute any alcohol or drug abuse patient.[facility] Reason for Visit (unrecogniz ed section and [...] W/O CONTRAST Kristopher Reaves MD [address] [facility] [place] [address] Mr Imaging Referral ID Status Reason Start Date Expiration Date V isits Requested Visits Authorized [id number] Closed Auto-Generate d Referral 08/26/2021 09/25/2022 1 1 Reason Comments Results MRI Cervical Spine Reason Comments Results - Mri Reason Onset Date Comments Population Health Navigation Outreach 02/24/2022 [facility] Reason Comments New Patient Having hand tremors and involuntary tongue movements. Care Teams (unrecognized sec tion and content) Maintenance Mechanic 2Nd Shift Relationship Specialty Start Date End Date Linda Dominguez MD [address] [place] [address] PCP - General Internal Medicine 10/20/13 Maintenance Mechanic 2Nd Shift Relationship Specialty Start Date End Date Linda Dominguez MD [address] [place] [address] PCP - General Internal Medicine 10/20/13 Maintenance Mechanic 2Nd Shift Relationship Specialty Start Date End Date Linda Dominguez MD [address] [place] [address] PCP - General Internal Medicine 10/20/13 Maintenance Mechanic 2Nd Shift Relationship Specialty Start Date End Date Linda Dominguez MD [address] [place] [address] PCP - General Internal Medicine 10/20/13 Maintenance Mechanic 2Nd Shift Relationship Specialty Start Date End Date Linda Dominguez MD [address] [place] [address] PCP - General Internal Medicine 10/20/13 Maintenance Mechanic 2Nd Shift Relationship Specialty Start Date End Date Linda Dominguez MD [address] [facility] [address] PCP - General Internal Medicine 10/20/13 Maintenance Mechanic 2Nd Shift Relationship Specialty Start Date End Date Linda Dominguez MD [address] [facility] [address] PCP - General Internal Medicine 10/20/13 Maintenance Mechanic 2Nd Shift Relationship Specialty Start Date End Date Linda Dominguez MD [address] [facility] [address] PCP - General Internal Medicine 10/20/13 Maintenance Mechanic 2Nd Shift Relationship Specialty Start Date End Date Maci Marino MD [address] [place] [id number] PCP - General Internal Medicine 02/24/22 Team [...] Provider, Referri ng Provider Active Glenis Suarez LATHE WINDER, LATHE WINDER-C Attending Provider Active Team Status: Inactive Member Role Status Dates Dr. Zoraida Marino MD Primary Care Provider, Attendi ng Provider Active Team Status: Inactive Member Role Status Dates Dr. Zoraida Marino MD Primary Care Provider Active Glenis Suarez LATHE WINDER, LATHE WINDER-C Attending Provider Active Maintenance Mechanic 2Nd Shift Relationship Specialty Start Date End Date Linda Dominguez MD [address] [place] [address] PCP - General Internal Medicine 10/20/13 02/23/22 Maintenance Mechanic 2Nd Shift Relationship Specialty Start Date End Date Zoraida [...] End: September 30, 2024 Dr. Jean Claude Lutehr DO Admit Provider Active Star t: September [...] Active Star t: September 28, 2024 Dr. rBett Camp DO Other Provider Active St art: [...] section and content) DATE CREATED AUTHOR 01/03/2022 [facility] DATE CREATED AUTHOR AUTHOR'S ORGANIZ ATION 06/03/2024 [facility] DATE CREATED AUTHOR AUTHOR'S ORGANIZ ATION 04/28/2025 [facility] FOR RECORDS PERTAINING TO PATIENTS WHO [...] BE BASED ON THE PRIMARY CLINICAL RECORDS. [facility] provides no warranty or guarantee of the accuracy or completeness of information in this document.
--- OUTSIDE RECORDS SUMMARY | 2025-04-28 13:57 | XMS RPT_ITS | CCD ---
Author Organization [facility] Care Team Providers Care Corrosion Control Specialist Name Role Phone Linda Dominguez MD Primary Care Provider Dr. Linda Dominguez Primary Care Provider MD Beka Garcia Emergency Provider [phone] Nathan Taveras Admit Provider Dr. Nathan Taveras Attending Provider Dr. Nathan Taveras Other Provider Dr. Tyrese Fulton Attending Provider Dr. Jean Claude Jasmine Referring Provider Dr. Gricel Devi Attending Provider Dr. Nathan Taveras Referring Provider Dr. Júnior Lopez Other Provider Dr. Mickey Messina Attending Provider [phone] [...] Provider Dr. Todd Vieira Attending Provider Erick MICA LAMINATING MACHINE FEEDER, MICA LAMINATING MACHINE FEEDER-C Glenis Attending Provider Dr. Zoraida Marino Primary Care Provider Dr. Zoraida Marino Referring Provider [phone] Dr. Todd Vieira Attending Provider Dr. Zoraida Marino Attending Provider Erick MICA LAMINATING MACHINE FEEDER, MICA LAMINATING MACHINE FEEDER-C Glenis Attending Provider Linda Dominguez MD Primary Care Provider Zoraida Marino MD Primary Care Provider [phone] EVAN WALDEN Attending Unavailable ZORAIDA MARINO Primary Care Unavailable Dr. Zoraida Marino MD Primary Care Provider [phone] Dr. Baljit Fleming DO Attending Provider [phone] Dr. Baljit Fleming DO Emergency Provider Ned MITCHELL, Dr. Monk Attending Provider Ned MITCHELL, Dr. Monk Referring Provider Homa GRULLON, Dr. Silverio Admit Provider Homa GRULLON, Dr. Silevrio Other Provider Dr. Shanon Bravo DO Attending [...] Provider Jones MITCHELL, Dr. Lakhani Other Provider [phone] Nayeli MITCHELL, Dr. Rodriguez Other Provider Dr. Stephane Flores MD Other Provider [phone] Rudolph MITCHELL, Dr. Cole Other Provider Juarez MITCHELL, Dr. Silva Other Provider Jess MITCHELL, Dr. Otto Other Provider [facility] Ames MD, Dr. Mora Other Provider Honorio MITCHELL, Dr. Pardo Other Provider Donaldo MITCHELL, Dr. East Other Provider Heri MITCHELL, Dr. Cifuentes Other Provider Conrado GRULLON, Dr. West Other Provider [phone] Opal MITCHELL, Dr. Cannon Other Provider Jf MITCHELL, Dr. Theodore Other Provider Dr. William Henry DO Other Provider Triston MITCHELL, Dr. Mims Other Provider [phone] Daniel MITCHELL, Dr. Longoria Other Provider Lawrence GRULLON, Dr. Claudio Other Provider [phone] Ez MITCHELL, Dr. Gillespie Attending Provider Unavaila ble Maddison Calix Attending Provider [phone] Maddison Calix Referring Provider Dr. Zoraida Marino MD Primary Care Provider Dr. Franklin Neal MD Emergency Provider [phone] Zoraida Marino Primary Care Unavailable Franklin Neal [...] Sanchez Consulting Unavailable Tricia Taylor Attending Unavailable [place], Zoraida Primary Care Unavailable Ned, Zoraida Referring Unavailable [place], Zoraida Attending Unavailable Ned, Zoraida Primary Care Unavailable Maddison Saini Referring Unavailable Maddison Saini Attending Unavailable Ned, Zoraida Primary Care Unavailable Gudla Verna ARORA Attending Unavailable Gudla Arline ARORAthi Attending Unavailable Ned, Zoraida Primary Care Unavailable [place], Zoraida Primary Care Unavailable Erick MICA LAMINATING MACHINE FEEDER, Glenis Referring Unavailable Erick MICA LAMINATING MACHINE FEEDER, Glenis Attending Unavailable Shanon Bravo Attending Unavailable Ned, Zoraida Primary Care Unavailable Jean Claude Luther Consulting Unavailable Jean Claude Luther Admitting Unavailable Tricia Taylor Consulting Unavailable Elijah Mac Consulting Unavailable Ned, Zoraida Primary Care Unavailable Baljit Fleming Attending Unavailable Ned, Zoraida Primary Care Unavailable Selwyn Ramsey Referring Unavailable Selwyn Ramsey Attending Unavailable [place], Zoraida Primary Care Unavailable Selwyn Ramsey Referring Unavailable Selwyn Ramsey Attending Unavailable [place], Zoraida Referring Unavailable [place], Zoraida Attending Unavailable Ned, Zoraida Primary Care Unavailable Ned, Zoraida Referring Unavailable [place], Zoraida Attending Unavailable [place], Zoraida Primary Care Unavailable Allergies Allergy Classification Reported Allergen(s) Allergy Type Date of Onset Reaction(s) Facility (20 sources) Acetaminophen; Translations: [ACETAMINOPHEN] Drug Allergy 4 GI Upset, Other: See Comments [facility] (13 sources) DULoxetine; Translations: [DULOXETINE] Drug Allergy 1 Other: See Comments [facility] Work Phone: (20 sources) fentaNYL; Translations: [FENTANYL] Drug Allergy 4 GI Upset [facility] (13 sources) gabapentin; Translations: [GABAPENTIN] Drug Allergy 4 Vomiting [facility] Work Phone: (13 sources) Methocarbamol; Translations: [METHOCARBAMOL] Drug Allergy 4 Vomiting [facility] Work Phone: (20 sources) Metoclopramide; Translations: [METOCLOPRAMIDE HCL] Drug Allergy 4 Mental Status Change [facility] (13 sources) traMADol; Translations: [TRAMADOL] Drug Allergy 2 [facility] Work Phone: (10 sources) nabumetone Drug Allergy 2 Nausea/Vom/Diar cabrera [facility] (8 sources) hydrOXYzine Drug Allergy 2 Vomiting [facility] (8 sources) Niacin Drug Allergy 2 Vomiting [facility] (2 sources) Carbidopa Drug Allergy 5 Abd cramps/diarrhea [facility] (2 sources) Levodopa Drug Allergy 5 Abd cramps/diarrhea [facility] (1 source) Acetaminophen Drug Allergy 5 [facility] Repository (1 source) Carbidopa Drug Allergy 5 [facility]ository (1 source) fentaNYL Drug Allergy 5 [facility] (1 source) hydrOXYzine Drug Allergy 5 [facility] (1 source) Levodopa Drug Allergy 5 [facility] (1 source) Metoclopramide Drug Allergy 5 [facility] (1 source) nabumetone Drug Allergy 5 [facility] (1 source) Niacin Drug Allergy 5 [facility] Medications Current Medications Medication Drug [...] 06, 2021 12:00am July 21, 2022 10:52am Ypqda-Pusr-Fpnft-Collag-Mv-M in (Aly (With Collagen)) 7-7-1.5 gram Powder In Packet (10 sources) Start: 11-06-2021 Ueepg-Jmak-Sqgrs-Collag-Mv-M in (Aly (With Collagen)) 7-7-1.5 gram Powder In Packet Active 1 PACKET PO TWICE DAILY WITH MEALS 60 30 November 06, 2021 8:33pm Start: 11-06-2021 End: 01-23-2022 Ctcjp-Iqjw-Jikla-Collag-Mv-M in (Aly (With Collagen)) 7-7-1.5 gram Powder In Packet Discontinued 1 NMA PO TWICE DAILY WITH MEALS 60 30 0 November 06, 2021 12:00am January 23, 2022 10:38am Start: 11-06-2021 End: 01-23-2022 Sxams-Iqbg-Llhht-Collag-Mv-M in (Aly (With Collagen)) 7-7-1.5 gram Powder In Packet Discontinued 1 NMA PO TWICE DAILY WITH MEALS 60 30 November 06, 2021 12:00am January 23, 2022 10:38am Start: 11-06-2021 End: 01-23-2022 Opepo-Hqjr-Szwtz-Collag-Mv-M in (Aly (With Collagen)) 7-7-1.5 gram Powder In Packet Discontinued 1 PACKET PO TWICE DAILY WITH MEALS 60 30 November 05, 2021 11:00pm January 23, 2022 9:38am Start: 11-06-2021 End: 01-23-2022 Cvkto-Qmte-Yazgs-Collag-Mv-M in (Aly (With Collagen)) 7-7-1.5 gram Powder [...] Comment on above: Take 1 capsule by [facility] once daily. losartan potassium 50 mg oral [...] on above: Take 1 capsule by mo [facility] daily at bedtime. predniSONE 10 mg [...] 06/01/2024 Discontinued take 1 capsule by mo [facility] once daily propranolol HCl (PROPRANOLOL ORAL) [...] iton 04-25-2025 Internal Medicine Office Visit Normal [facility] Low Dose CT Lung Screeningon 04-21-[address] Lung Screening Normal [facility] Absolute lymphocyte countOrd ered By: Franklin Neal on 04-14-2025 Lymphocytes Auto (Unsp spec) [#/Vol] 1.87 10*3/uL 0.83-4.51 [facility] Absolute neutrophil countOrd ered By: Franklin Neal on 04-14-2025 Neutrophils (Bld) [#/Vol] 4.3 10*3/uL 2.0-7.7 [facility] Anion gap in Serum or Plasma Ordered By: Franklin Neal on 04-14-2025 Anion gap [Moles/Vol] 11 mmol/L 5-15 [facility] Automated lymphocyte count a s percentage of total leukocytesOrdered By: Franklin Neal on 04-14-2025 Lymphocytes/100 WBC Auto (Unsp spec) 26.8 % 19-41 [facility] BUN/creatinine ratioOrdered By: Franklin Neal on 04-14-2025 Urea nitrogen/Creatinine [Mass ratio] 30.4 mg/mg High 10-20 [facility] Basophil percentageOrdered B y: Franklin Neal on 04-14-2025 Basophils/100 WBC (Bld) 0.9 % 0-1 [facility] Bilirubin, totalOrdered By: Franklin Neal on 04-14-2025 Bilirubin [Mass/Vol] 0.39 mg/dL 0.00-1.30 [facility] CBC W/Diff, Automatedon 04-03-2024 Absolute Lymph 1.87 X10 3/uL Normal 0.83-4.51 [facility] Comment on above: Performed By: #### L 500.4050, L100.0100 ####[facility] [address] [place], [address] Absolute Neut 4.3 X10 3/uL Normal 2.0-7.7 [facility] Comment on above: Performed By: #### L 500.4050, L100.0100 ####[facility] [address] [place], [address] Basophils/100 WBC (Bld) 0.9 % Normal 0-1 [facility] Comment on above: Performed By: #### L 500.4050, L100.0100 ####[facility] [address] [place], [address] Eosinophils/100 WBC (Bld) 1.0 % Normal 0-5 [facility] Comment on above: Performed By: #### L 500.4050, L100.0100 ####[facility] [address] [place], [address] Erythrocyte distribution width (RBC) [Ratio] 12.4 % Normal 11.6-14.6 [facility] Comment on above: Performed By: #### L 500.4050, L100.0100 ####[facility] [address] [place], [address] Hematocrit (Bld) [Volume fraction] 38.7 % Low 40-54 [facility] Comment on above: Performed By: #### L 500.4050, L100.0100 ####[facility] [address] [place], [address] Hemoglobin (Bld) [Mass/Vol] 13.4 g/dL Normal 13.0-16.5 [facility] Comment on above: Performed By: #### L 500.4050, L100.0100 ####[facility] [address] [place], [address] IG% 0.300 Normal 0.0-0.9 [facility] Comment on above: Result Comment: IG% - Immature Granulocytes (promyelocytes, myelocytes andmetamyelocytes) > 1% indicates that a LEFT SHIFT is Present. Performed By: #### L 500.4050, L100.0100 ####[facility] [address] [place], [address] Lymphocytes/100 WBC (Bld) 26.8 % Normal 19-41 [facility] Comment on above: Performed By: #### L 500.4050, L100.0100 ####[facility] [address] [place], [address] MCH (RBC) [Entitic mass] 32.4 pg High 27.0-32.0 [facility] Comment on above: Performed By: #### L 500.4050, L100.0100 ####[facility] [address] [place], [address] MCHC (RBC) [Mass/Vol] 34.6 g/dL Normal 32-36 [facility] Comment on above: Performed By: #### L 500.4050, L100.0100 ####[facility] [address] [place], [address] MCV (RBC) [Entitic vol] 93.7 fL Normal 80-94 [facility] Comment on above: Performed By: #### L 500.4050, L100.0100 ####[facility] [address] [place], [address] Monocytes/100 WBC (Bld) 10.0 % Normal 0-10 [facility] Comment on above: Performed By: #### L 500.4050, L100.0100 ####[facility] [address] [place], [address] Neutrophils/100 WBC (Bld) 61.0 % Normal 47-70 [facility] Comment on above: Performed By: #### L 500.4050, L100.0100 ####[facility] [address] [place], [address] Nucleated RBC (Bld) [#/Vol] 0 10*3/uL Normal 0-5 [facility] Comment on above: Performed By: #### L 500.4050, L100.0100 ####[facility] [address] [place], [address] Platelet mean volume (Bld) [Entitic vol] 10.1 fL Normal 6.2-12.0 [facility] Comment on above: Performed By: #### L 500.4050, L100.0100 ####[facility] [address] [place], [address] Platelets (Bld) [#/Vol] 208 10*3/uL Normal 150-450 [facility] Comment on above: Performed By: #### L 500.4050, L100.0100 ####[facility] [address] [place], [address] RBC (Bld) [#/Vol] 4.13 10*6/uL Low 4.6-6.2 [facility] Comment on above: Performed By: #### L 500.4050, L100.0100 ####[facility] [address] [place], [address] RDW SD 43.1 fl Normal 35.1-43.9 [facility] Comment on above: Performed By: #### L 500.4050, L100.0100 ####[facility] [address] [place], [address] WBC (Bld) [#/Vol] 7.0 10*3/uL Normal 4.4-11.0 [facility] Comment on above: Performed By: #### L 500.4050, L100.0100 ####[facility] [address] [place], [address] Carbon dioxide, total [Moles /volume] in Central venous bloodOrdered By: Franklin Neal on 04-14-2025 CO2 [Moles/Vol] 23.3 mmol/L 21.0-32.0 [facility] Chloride assayOrdered By: Ug o Neal on 04-14-2025 Chloride [Moles/Vol] 104 mmol/L 98-108 [facility] Comprehensive Metabolic Prof ilon 04-14-2025 Albumin [Mass/Vol] 4.2 g/dL Normal 3.4-4.8 [facility] Comment on above: Performed By: #### L 500.4050, L100.0100 ####[facility] [address] [place], [address] Albumin/Globulin [Mass ratio] 1.5 {ratio} Normal 0.9-2.4 [facility] Comment on above: Performed By: #### L 500.4050, L100.0100 ####[facility] [address] [place], [address] ALK PHOS 71 U/L Normal 40-129 [facility] Comment on above: Performed By: #### L 500.4050, L100.0100 ####[facility] [address] [place], [address] ALT [Catalytic activity/Vol] 10 U/L Normal <=46 [facility] Comment on above: Performed By: #### L 500.4050, L100.0100 ####[facility] [address] [place], [address] AST [Catalytic activity/Vol] 17 U/L Normal <=37 [facility] Comment on above: Performed By: #### L 500.4050, L100.0100 ####[facility] [address] [place], [address] Bilirubin [Mass/Vol] 0.39 mg/dL Normal 0.00-1.30 [facility] Comment on above: Performed By: #### L 500.4050, L100.0100 ####[facility] [address] [place], [address] BUN/CRE 30.4 RATIO High 10-20 [facility] Comment on above: Performed By: #### L 500.4050, L100.0100 ####[facility] [address] [place], [address] Calcium [Mass/Vol] 9.1 mg/dL Normal 7.6-11.0 [facility] Comment on above: Performed By: #### L 500.4050, L100.0100 ####[facility] [address] [place], [address] Chloride [Moles/Vol] 104 mmol/L Normal 98-108 [facility] Comment on above: Performed By: #### L 500.4050, L100.0100 ####[facility] [address] [place], [address] CO2 [Moles/Vol] 23.3 mmol/L Normal 21.0-32.0 [facility] Comment on above: Performed By: #### L 500.4050, L100.0100 ####[facility] [address] [place], [address] Creatinine [Mass/Vol] 0.61 mg/dL Low 0.70-1.20 [facility] Comment on above: Performed By: #### L 500.4050, L100.0100 ####[facility] [address] [place], [address] GAP 11 Normal 5-15 [facility] Comment on above: Performed By: #### L 500.4050, L100.0100 ####[facility] [address] [place], [address] GFR/1.73 sq M.predicted among non-blacks MDRD (S/P/Bld) [Vol rate/Area] 107 mL/min/{1.73_m2} Normal >60 [facility] Comment on above: Result Comment: mL/m in/1.73m2 CKD-EPI Creatinine Equation (2020) Performed By: #### L 500.4050, L100.0100 ####[facility] [address] [place], [address] Globulin (S) [Mass/Vol] 2.8 g/dL Normal 2.2-4.2 [facility] Comment on above: Performed By: #### L 500.4050, L100.0100 ####[facility] [address] [place], [address] Glucose [Mass/Vol] 125 mg/dL High 70-99 [facility] Comment on above: Performed By: #### L 500.4050, L100.0100 ####[facility] [address] [place], [address] Potassium [Moles/Vol] 4.3 mmol/L Normal 3.3-5.1 [facility] Comment on above: Performed By: #### L 500.4050, L100.0100 ####[facility] [address] [place], [address] Sodium [Moles/Vol] 138 mmol/L Normal 133-145 [facility] Comment on above: Performed By: #### L 500.4050, L100.0100 ####[facility] [address] [place], [address] T PROT 7.0 g/dL Normal 5.9-8.4 [facility] Comment on above: Performed By: #### L 500.4050, L100.0100 ####[facility] [address] [place], [address] Urea nitrogen [Mass/Vol] 18 mg/dL Normal 4-19 [facility] Comment on above: Performed By: #### L 500.4050, L100.0100 ####[facility] [address] [place], [address] Emergency Department Summary on 04-14-2025 Emergency Department Summary Normal [facility] Eosinophil percentageOrdered By: Franklinviolet Neal on 04-14-2025 Eosinophils/100 WBC (Bld) 1.0 % 0-5 [facility] Erythrocyte distribution wid th ratioOrdered By: Franklinviolet Neal on 04-14-2025 Erythrocyte distribution width (RBC) [Ratio] 12.4 % 11.6-14.6 [facility] Erythrocyte distribution wid th standard deviationOrdered By: Franklinviolet Neal on 04-14-2025 Erythrocyte distribution width (RBC) [Ratio] 43.1 fl 35.1-43.9 [facility] Glomerular filtration rate ( GFR) estimation/1.73 sq m using serum, plasma, or whole bOrdered By: Franklin Neal on 04-14-2025 GFR/1.73 sq M.predicted among non-blacks MDRD (S/P/Bld) [Vol rate/Area] 107 mL/min/{1.73_m2} >60 [facility] Comment on above: mL/min/1.73m2 CKD-EP I Creatinine Equation (2020) Hematocrit Auto (Bld) [Volum e fraction]Ordered By: Franklin Neal on 04-14-2025 Hematocrit (Bld) [Volume fraction] 38.7 % Low 40-54 [facility] Hemoglobin measurementOrdere d By: Franklin Neal on 04-14-2025 Hemoglobin (Bld) [Mass/Vol] 13.4 g/dL 13.0-16.5 [facility] Immature granulocytes/100 WB C Auto (Bld)Ordered By: Franklin Neal on 04-14-2025 Immature granulocytes/100 WBC (Bld) 0.300 % 0.0-0.9 [facility] Comment on above: IG% - Immature Granu locytes (promyelocytes, myelocytes and metamyelocytes) > 1% indicates that a LEFT SHIFT is Present. Laboratory - Chemistry and C hemistry - challengeOrdered By: Franklin Neal on 04-14-2025 AST [Catalytic activity/Vol] 17 U/L <38 [facility] Lumbar Spine 2 or 3 Viewson 04-14-2025 Lumbar Spine 2 or 3 Views Normal [facility] MCV (mean corpuscular volume ) determinationOrdered By: Franklin Neal on 04-14-2025 MCV (RBC) [Entitic vol] 93.7 fL 80-94 [facility] Mean corpuscular hemoglobin (MCH) determinationOrdered By: Franklin Neal on 04-14-2025 MCH (RBC) [Entitic mass] 32.4 pg High 27.0-32.0 [facility] Mean corpuscular hemoglobin concentration (MCHC) determinationOrdered By: Franklin Neal on 04-14-2025 MCHC (RBC) [Mass/Vol] 34.6 g/dL 32-36 [facility] Mean platelet volume determi nationOrdered By: Franklin eNal on 04-14-2025 Platelet mean volume (Bld) [Entitic vol] 10.1 fL 6.2-12.0 [facility] Monocyte percentageOrdered B y: Franklin Neal on 04-14-2025 Monocytes/100 WBC (Bld) 10.0 % 0-10 [facility] Neutrophil percentageOrdered By: Franklin Neal on 04-14-2025 Neutrophils/100 WBC (Bld) 61.0 % 47-70 [facility] Nucleated red blood cell per centageOrdered By: Franklin Neal on 04-14-2025 Nucleated RBC/100 WBC (Bld) [Ratio] 0 % 0-5 [facility] Platelet countOrdered By: Ada violet Ángel on 04-14-2025 Platelets (Bld) [#/Vol] 208 10*3/uL 150-450 [facility] Potassium measurement (mass/ volume)Ordered By: Franklin Neal on 04-14-2025 Potassium (Unsp spec) [Mass/Vol] 4.3 mmol/L 3.3-5.1 [facility] RBC Auto (Bld) [#/Vol]Ordere d By: Franklin Neal on 04-14-2025 RBC (Bld) [#/Vol] 4.13 10*6/uL Low 4.6-6.2 [facility] Serum creatinine measurement (mass/volume)Ordered By: Franklin Neal on 04-14-2025 Creatinine [Mass/Vol] 0.61 mg/dL Low 0.70-1.20 [facility] Serum globulin measurementOr dered By: Franklin Neal on 04-14-2025 Globulin (S) [Mass/Vol] 2.8 g/dL 2.2-4.2 [facility] Serum glucose measurement (m ass/volume)Ordered By: Franklin Neal on 04-14-2025 Glucose [Mass/Vol] 125 mg/dL High 70-99 [facility] Serum or plasma alanine valentin otransferase (ALT) measurementOrdered By: Franklin Neal on 04-14-2025 ALT [Catalytic activity/Vol] 10 U/L <47 [facility] Serum or plasma albumin jody urement (mass/volume)Ordered By: Franklin Neal on 04-14-2025 Albumin [Mass/Vol] 4.2 g/dL 3.4-4.8 [facility] Serum or plasma albumin/glob ulin mass ratioOrdered By: Franklinviolet Neal 04-14-2025 Albumin/Globulin [Mass ratio] 1.5 {ratio} 0.9-2.4 [facility] Serum or plasma alkaline skip sphatase measurementOrdered By: Franklinviolet Neal 04-14-2025 ALP [Catalytic activity/Vol] 71 U/L 40-129 [facility] [facility] Serum or plasma calcium jody urement (mass/volume)Ordered By: [facility] on 04-14-2025 Calcium [Mass/Vol] 9.1 mg/dL 7.6-11.0 [facility] Serum or plasma urea nitroge n measurement (mass/volume)Ordered By: [facility] on 04-14-2025 Urea nitrogen [Mass/Vol] 18 mg/dL 4-19 [facility] Sodium levelOrdered By: [facility] on 04-14-2025 Sodium [Moles/Vol] 138 mmol/L 133-145 [facility] Total proteinOrdered By: [facility] on 04-14-2025 Protein [Mass/Vol] 7.0 g/dL 5.9-8.4 [facility] White blood cell (WBC) count Ordered By: [facility] on 04-14-2025 WBC (Bld) [#/Vol] 7.0 10*3/uL 4.4-11.0 [facility] Venous Duplex US, Unilateral on 11-09-2024 Venous Duplex US, Unilateral Normal [facility] Venous duplex ultrasound rep ortOrdered By: Wayne Mendoza on 11-09-2024 US Vein [facility] [address] [place] [address] Venous Duplex US, Unilateral 11/09/24 1054 MR#: [id number] Acct: [id number] Name: OLGA MARTIN Rep #:[id number] : 1960 64 From: Wayne Mendoza MD [...] Date Dictated: 11/09/24 1054 Date Transcribed: 11/09/242117 Tax Services Specialist: Signed [facility] Other Internal Medicine Office Vis iton 10-23-2024 Internal Medicine Office Visit Normal [facility] Basic Metabolic Profile (BMP )on 10-17-2024 BUN Normal 4-19 [facility] Comment on above: Order Comment: 210 Result Comment: DONT DO LABS, PT GOING HOME TODAY PER NURSE AUDRA @[facility] Performed By: #### L 100.0500, L500.2500 ####[facility] [address] [place], [address] BUN/CRE Normal 10-20 [facility] Comment on above: Order Comment: 210 Result Comment: DONT DO LABS, PT GOING HOME TODAY PER NURSE AUDRA @ Performed By: #### L 100.0500, L500.2500 ####[facility] [address] [place], [address] Calcium Normal 7.6-11.0 [facility] Comment on above: Order Comment: 210 Result Comment: DONT DO LABS, PT GOING HOME TODAY PER NURSE AUDRA @ Performed By: #### L 100.0500, L500.2500 ####[facility] [address] [place], [address] CL Normal 98-108 [facility] Comment on above: Order Comment: 210 Result Comment: DONT DO LABS, PT GOING HOME TODAY PER NURSE AUDRA @ Performed By: #### L 100.0500, L500.2500 ####[facility] [address] [place], [address] CO2 Normal 21.0-32.0 [facility] Comment on above: Order Comment: 210 Result Comment: DONT DO LABS, PT GOING HOME TODAY PER NURSE AUDRA @ Performed By: #### L 100.0500, L500.2500 ####[facility] [address] [place], [address] CREAT,SERUM Normal 0.70-1.20 [facility] Comment on above: Order Comment: 210 Result Comment: DONT DO LABS, PT GOING HOME TODAY PER NURSE AUDRA @ Performed By: #### L 100.0500, L500.2500 ####[facility] [address] [place], [address] eGFR Normal >60 [facility] Comment on above: Order Comment: 210 Result Comment: DONT DO LABS, PT GOING HOME TODAY PER NURSE AUDRA @ Performed By: #### L 100.0500, L500.2500 ####[facility] [address] [place], [address] GAP Normal 5-15 [facility] Comment on above: Order Comment: 210 Result Comment: DONT DO LABS, PT GOING HOME TODAY PER NURSE AUDRA @ Performed By: #### L 100.0500, L500.2500 ####[facility] [address] [place], [address] GLU Normal 70-99 [facility] Comment on above: Order Comment: 210 Result Comment: DONT DO LABS, PT GOING HOME TODAY PER NURSE AUDRA @[facility] Performed By: #### L 100.0500, L500.2500 ####[facility] [address] [place], [address] Potassium Normal 3.3-5.1 [facility] Comment on above: Order Comment: 210 Result Comment: DONT DO LABS, PT GOING HOME TODAY PER NURSE AUDRA @ Performed By: #### L 100.0500, L500.2500 ####[facility] [address] [place], [address] Basic Metabolic Profile (BMP) Normal 133-145 [facility] Comment on above: Order Comment: 210 Result Comment: DONT DO LABS, PT GOING HOME TODAY PER NURSE AUDRA @[id number] Performed By: #### L 100.0500, L500.2500 ####[facility] [address] [place], [address] CBC-Complete Blood Cnt No Di ffon 10-17-2024 HCT Normal 40-54 [facility] Comment on above: Order Comment: 210 Result Comment: DONT DO LABS, PT GOING HOME TODAY PER NURSE AUDRA @[id number] Performed By: #### L 100.0500, L500.2500 ####[facility] [address] [place], [address] HGB Normal 13.0-16.5 [facility] Comment on above: Order Comment: 210 Result Comment: DONT DO LABS, PT GOING HOME TODAY PER NURSE AUDRA @ Performed By: #### L 100.0500, L500.2500 ####[facility] [address] [place], [address] MCH Normal 27.0-32.0 [facility] Comment on above: Order Comment: 210 Result Comment: DONT DO LABS, PT GOING HOME TODAY PER NURSE AUDRA @ Performed By: #### L 100.0500, L500.2500 ####[facility] [address] [place], [address] MCHC Normal 32-36 [facility] Comment on above: Order Comment: 210 Result Comment: DONT DO LABS, PT GOING HOME TODAY PER NURSE AUDRA @ Performed By: #### L 100.0500, L500.2500 ####[facility] [address] [place], [address] MCV Normal 80-94 [facility] Comment on above: Order Comment: 210 Result Comment: DONT DO LABS, PT GOING HOME TODAY PER NURSE AUDRA @ Performed By: #### L 100.0500, L500.2500 ####[facility] [address] [place], [address] PLT Normal 150-450 [facility] Comment on above: Order Comment: 210 Result Comment: DONT DO LABS, PT GOING HOME TODAY PER NURSE AUDRA @ Performed By: #### L 100.0500, L500.2500 ####[facility] [address] [place], [address] RBC Normal 4.6-6.2 [facility] Comment on above: Order Comment: 210 Result Comment: DONT DO LABS, PT GOING HOME TODAY PER NURSE AUDRA @ Performed By: #### L 100.0500, L500.2500 ####[facility] [address] [place], [address] RDW CV Normal 11.6-14.6 [facility] Comment on above: Order Comment: 210 Result Comment: DONT DO LABS, PT GOING HOME TODAY PER NURSE AUDRA @[facility] Performed By: #### L 100.0500, L500.2500 ####[facility] [address] [place], [address] RDW SD Normal 35.1-43.9 [facility] Comment on above: Order Comment: 210 Result Comment: DONT DO LABS, PT GOING HOME TODAY PER NURSE AUDRA @[facility] Performed By: #### L 100.0500, L500.2500 ####[facility] [address] [place], [address] WBC Normal 4.4-11.0 [facility] Comment on above: Order Comment: 210 Result Comment: DONT DO LABS, PT GOING HOME TODAY PER NURSE AUDRA @[facility] Performed By: #### L 100.0500, L500.2500 ####[facility] [address] [place], [address] Anion gap in Serum or Plasma Ordered By: Verna Hui on 10-10-2024 Anion gap [Moles/Vol] 12 mmol/L 5-15 [facility] BUN/creatinine ratioOrdered By: Verna Hui on 10-10-2024 Urea nitrogen/Creatinine [Mass ratio] 19.0 mg/mg - [facility] Basic Metabolic Profile (BMP )on 10-10-2024 BUN/CRE 19.0 RATIO Normal - [facility] Comment on above: Performed By: #### L 501.5200, L500.2500, L100.0500 ####[facility] [address] [place], [address] Calcium [Mass/Vol] 8.5 mg/dL Normal 7.6-11.0 [facility] Comment on above: Performed By: #### L 501.5200, L500.2500, L100.0500 ####[facility] [address] [place], [address] Chloride [Moles/Vol] 105 mmol/L Normal 98-108 [facility] Comment on above: Performed By: #### L 501.5200, L500.2500, L100.0500 ####[facility] [address] [place], [address] CO2 [Moles/Vol] 21.9 mmol/L Normal 21.0-32.0 [facility] Comment on above: Performed By: #### L 501.5200, L500.2500, L100.0500 ####[facility] [address] [place], [address] Creatinine [Mass/Vol] 0.64 mg/dL Low 0.70-1.20 [facility] Comment on above: Performed By: #### L 501.5200, L500.2500, L100.0500 ####[facility] [address] [place], [address] GAP 12 Normal 5-15 [facility] Comment on above: Performed By: #### L 501.5200, L500.2500, L100.0500 ####[facility] [address] [place], [address] GFR/1.73 sq M.predicted among non-blacks MDRD (S/P/Bld) [Vol rate/Area] 105 mL/min/{1.73_m2} Normal >60 [facility] Comment on above: Result Comment: mL/m in/1.73m2 CKD-EPI Creatinine Equation (2020) Performed By: #### L 501.5200, L500.2500, L100.0500 ####[facility] [address] [place], [address] Glucose [Mass/Vol] 162 mg/dL High 70-99 [facility] Comment on above: Performed By: #### L 501.5200, L500.2500, L100.0500 ####[facility] [address] [place], [address] Potassium [Moles/Vol] 3.9 mmol/L Normal 3.3-5.1 [facility] Comment on above: Performed By: #### L 501.5200, L500.2500, L100.0500 ####[facility] [address] [place], [address] Sodium [Moles/Vol] 139 mmol/L Normal 133-145 [facility] Comment on above: Performed By: #### L 501.5200, L500.2500, L100.0500 ####[facility] [address] [place], [address] Urea nitrogen [Mass/Vol] 12 mg/dL Normal 4-19 [facility] Comment on above: Performed By: #### L 501.5200, L500.2500, L100.0500 ####[facility] [address] [place], [address] CBC-Complete Blood Cnt No Di ffon 10-10-2024 Erythrocyte distribution width (RBC) [Ratio] 12.7 % Normal 11.6-14.6 [facility] Comment on above: Performed By: #### L 501.5200, L500.2500, L100.0500 ####[facility] [address] [place], [address] Hematocrit (Bld) [Volume fraction] 33.1 % Low 40-54 [facility] Comment on above: Performed By: #### L 501.5200, L500.2500, L100.0500 ####[facility] [address] [place], [address] Hemoglobin (Bld) [Mass/Vol] 11.2 g/dL Low 13.0-16.5 [facility] Comment on above: Performed By: #### L 501.5200, L500.2500, L100.0500 ####[facility] [address] [place], [address] MCH (RBC) [Entitic mass] 32.9 pg High 27.0-32.0 [facility] Comment on above: Performed By: #### L 501.5200, L500.2500, L100.0500 ####[facility] [address] [place], [address] MCHC (RBC) [Mass/Vol] 33.8 g/dL Normal 32-36 [facility] Comment on above: Performed By: #### L 501.5200, L500.2500, L100.0500 ####[facility] [address] [place], [address] MCV (RBC) [Entitic vol] 97.4 fL High 80-94 [facility] Comment on above: Performed By: #### L 501.5200, L500.2500, L100.0500 ####[facility] [address] [place], [address] Platelet mean volume (Bld) [Entitic vol] 9.7 fL Normal 6.2-12.0 [facility] Comment on above: Performed By: #### L 501.5200, L500.2500, L100.0500 ####[facility] [address] [place], [address] Platelets (Bld) [#/Vol] 338 10*3/uL Normal 150-450 [facility] Comment on above: Performed By: #### L 501.5200, L500.2500, L100.0500 ####[facility] [address] [place], [address] RBC (Bld) [#/Vol] 3.40 10*6/uL Low 4.6-6.2 [facility] Comment on above: Performed By: #### L 501.5200, L500.2500, L100.0500 ####[facility] [address] [place], [address] RDW SD 45.3 fl High 35.1-43.9 [facility] Comment on above: Performed By: #### L 501.5200, L500.2500, L100.0500 ####[facility] [address] [place], [address] WBC (Bld) [#/Vol] 6.3 10*3/uL Normal 4.4-11.0 [facility] Comment on above: Performed By: #### L 501.5200, L500.2500, L100.0500 ####[facility] [address] [place], [address] Carbon dioxide, total [Moles /volume] in Central venous bloodOrdered By: Verna Hui on 10-10-2024 CO2 [Moles/Vol] 21.9 mmol/L 21.0-32.0 [facility] Chloride assayOrdered By: Emigdio Hui on 10-10-2024 Chloride [Moles/Vol] 105 mmol/L 98-108 [facility] Erythrocyte distribution wid th (RBC) [Ratio]Ordered By: Verna Hui on 10-10-2024 Erythrocyte distribution width (RBC) [Entitic vol] 45.3 fL High 35.1-43.9 [facility] Erythrocyte distribution wid th ratioOrdered By: Verna Hui on 10-10-2024 Erythrocyte distribution width (RBC) [Ratio] 12.7 % 11.6-14.6 [facility] GFR/1.73 sq M.predicted ally g non-blacks MDRD (S/P/Bld) [Vol rate/Area]Ordered By: Verna Hui on 10-10-2024 Estimated GFR (MDRD) Non-Af Amer 105 >60 [facility] Comment on above: mL/min/1.73m2 CKD-EP I Creatinine Equation (2020) Hematocrit Auto (Bld) [Volum e fraction]Ordered By: Verna Hui on 10-10-2024 Hematocrit (Bld) [Volume fraction] 33.1 % Low 40-54 [facility] Hemoglobin measurementOrdere d By: Verna Hui on 10-10-2024 Hemoglobin (Bld) [Mass/Vol] 11.2 g/dL Low 13.0-16.5 [facility] MCV (mean corpuscular volume ) determinationOrdered By: Verna Hui on 10-10-2024 MCV (RBC) [Entitic vol] 97.4 fL High 80-94 [facility] Magnesiumon 10-10-2024 Magnesium [Mass/Vol] 2.1 mg/dL Normal 1.5-2.2 [facility] Comment on above: Performed By: #### L 501.5200, L500.2500, L100.0500 ####[facility] [address] [facility] [place], [address] Magnesium (Unsp spec) [Mass/ Vol]Ordered By: Verna Hui on 10-10-2024 Magnesium [Mass/Vol] 2.1 mg/dL 1.5-2.2 [facility] Mean corpuscular hemoglobin (MCH) determinationOrdered By: Verna Hui on 10-10-2024 MCH (RBC) [Entitic mass] 32.9 pg High 27.0-32.0 [facility] Mean corpuscular hemoglobin concentration (MCHC) determinationOrdered By: Verna Hui on 10-10-2024 MCHC (RBC) [Mass/Vol] 33.8 g/dL 32-36 [facility] Mean platelet volume determi nationOrdered By: Verna Hui on 10-10-2024 Platelet mean volume (Bld) [Entitic vol] 9.7 fL 6.2-12.0 [facility] Platelet countOrdered By: Emigdio Hui on 10-10-2024 Platelets (Bld) [#/Vol] 338 10*3/uL 150-450 [facility] Potassium (Unsp spec) [Mass/ Vol]Ordered By: Verna Hui on 10-10-2024 Potassium [Moles/Vol] 3.9 mmol/L 3.3-5.1 [facility] RBC Auto (Bld) [#/Vol]Ordere d By: Verna Hui on 10-10-2024 RBC (Bld) [#/Vol] 3.40 10*6/uL Low 4.6-6.2 [facility] Serum creatinine measurement (mass/volume)Ordered By: Verna Hui on 10-10-2024 Creatinine [Mass/Vol] 0.64 mg/dL Low 0.70-1.20 [facility] Serum glucose measurement (m ass/volume)Ordered By: Verna Hui on 10-10-2024 Glucose [Mass/Vol] 162 mg/dL High 70-99 [facility] Serum or plasma calcium jody urement (mass/volume)Ordered By: Verna Hui on 10-10-2024 Calcium [Mass/Vol] 8.5 mg/dL 7.6-11.0 [facility] Serum or plasma urea nitroge n measurement (mass/volume)Ordered By: Verna Hui on 10-10-2024 Urea nitrogen [Mass/Vol] 12 mg/dL 4-19 [facility] Sodium levelOrdered By: Leonard Hui on 10-10-2024 Sodium [Moles/Vol] 139 mmol/L 133-145 [facility] White blood cell (WBC) count Ordered By: Verna Hui on 10-10-2024 WBC (Bld) [#/Vol] 6.3 10*3/uL 4.4-11.0 [facility] Absolute neutrophil countOrd ered By: Verna Hui on 10-04-2024 Neutrophils (Bld) [#/Vol] 5.5 10*3/uL 2.0-7.7 [facility] Anion gap in Serum or Plasma Ordered By: Verna Hui on 10-04-2024 Anion gap [Moles/Vol] 12 mmol/L 5-15 [facility] BUN/creatinine ratioOrdered By: Verna Hui on 10-04-2024 Urea nitrogen/Creatinine [Mass ratio] 33.8 mg/mg High [address] [place] [address] Basic Metabolic Profile (BMP )on 10-04-2024 BUN/CRE 33.8 RATIO High [address] [place] [address] Comment on above: Order Comment: 210.1 Performed By: #### L 500.2500, L501.5200, L503.0106, L501.9520, L500.4100, L100.0100, L506.1001 ####[facility] [address] [place], [address] Calcium [Mass/Vol] 8.3 mg/dL Normal 7.6-11.0 [facility] Comment on above: Order Comment: 210.1 Performed By: #### L 500.2500, L501.5200, L503.0106, L501.9520, L500.4100, L100.0100, L506.1001 ####[facility] [address] [place], [address] Chloride [Moles/Vol] 103 mmol/L Normal 98-108 [facility] Comment on above: Order Comment: 210. Performed By: #### L 500.2500, L501.5200, L503.0106, L501.9520, L500.4100, L100.0100, L506.1001 ####[facility] [address] [place], [address] CO2 [Moles/Vol] 23.2 mmol/L Normal 21.0-32.0 [facility] Comment on above: Order Comment: 210.1 Performed By: #### L 500.2500, L501.5200, L503.0106, L501.9520, L500.4100, L100.0100, L506.1001 ####[facility] [address] [place], [address] Creatinine [Mass/Vol] 0.60 mg/dL Low 0.70-1.20 [facility] Comment on above: Order Comment: 210.1 Performed By: #### L 500.2500, L501.5200, L503.0106, L501.9520, L500.4100, L100.0100, L506.1001 ####[facility] [address] [place], [address] GAP 12 Normal 5-15 [facility] Comment on above: Order Comment: 210.1 Performed By: #### L 500.2500, L501.5200, L503.0106, L501.9520, L500.4100, L100.0100, L506.1001 ####[facility] [address] [place], [address] GFR/1.73 sq M.predicted among non-blacks MDRD (S/P/Bld) [Vol rate/Area] 107 mL/min/{1.73_m2} Normal >60 [facility] Comment on above: Order Comment: 210.1 Result Comment: mL/m in/1.73m2 CKD-EPI Creatinine Equation (2020) Performed By: #### L 500.2500, L501.5200, L503.0106, L501.9520, L500.4100, L100.0100, L506.1001 ####[facility] [address] [place], [address] Glucose [Mass/Vol] 120 mg/dL High 70-99 [facility] Comment on above: Order Comment: 210.1 Performed By: #### L 500.2500, L501.5200, L503.0106, L501.9520, L500.4100, L100.0100, L506.1001 ####[facility] [address] [place], [address] Potassium [Moles/Vol] 4.1 mmol/L Normal 3.3-5.1 [facility] Comment on above: Order Comment: 210.1 Performed By: #### L 500.2500, L501.5200, L503.0106, L501.9520, L500.4100, L100.0100, L506.1001 ####[facility] [address] [place], [address] Sodium [Moles/Vol] 138 mmol/L Normal 133-145 [facility] Comment on above: Order Comment: 210.1 Performed By: #### L 500.2500, L501.5200, L503.0106, L501.9520, L500.4100, L100.0100, L506.1001 ####[facility] [address] [place], [address] Urea nitrogen [Mass/Vol] 20 mg/dL High - [facility] Comment on above: Order Comment: 210.1 Performed By: #### L 500.2500, L501.5200, L503.0106, L501.9520, L500.4100, L100.0100, L506.1001 ####[facility] [address] [place], [address] BUN Normal - [facility] Comment on above: Result Comment: Canc elled via OM: Order cancelled - Patient discharged Performed By: #### L 100.0100, L500.2500 ####[facility] [address] [place], [address] BUN/CRE Normal - [facility] Comment on above: Result Comment: Canc elled via OM: Order cancelled - Patient discharged Performed By: #### L 100.0100, L500.2500 ####[facility] [address] [place], [address] Calcium Normal 7.6-11.0 [facility] Comment on above: Result Comment: Canc elled via OM: Order cancelled - Patient discharged Performed By: #### L 100.0100, L500.2500 ####[facility] [address] [place], [address] CL Normal 98-107 [facility] Comment on above: Result Comment: Canc elled via OM: Order cancelled - Patient discharged Performed By: #### L 100.0100, L500.2500 ####[facility] [address] [place], [address] CO2 Normal 21.0-32.0 [facility] Comment on above: Result Comment: Canc elled via OM: Order cancelled - Patient discharged Performed By: #### L 100.0100, L500.2500 ####[facility] [address] [place], [address] CREAT,SERUM Normal 0.8-1.3 [facility] Comment on above: Result Comment: Canc elled via OM: Order cancelled - Patient discharged Performed By: #### L 100.0100, L500.2500 ####[facility] [address] [place], [address] eGFR Normal >60 [facility] Comment on above: Result Comment: Canc elled via OM: Order cancelled - Patient discharged Performed By: #### L 100.0100, L500.2500 ####[facility] [address] [place], [address] GAP Normal 5-15 [facility] Comment on above: Result Comment: Canc elled via OM: Order cancelled - Patient discharged Performed By: #### L 100.0100, L500.2500 ####[facility] [address] [place], [address] GLU Normal 70-99 [facility] Comment on above: Result Comment: Canc elled via OM: Order cancelled - Patient discharged Performed By: #### L 100.0100, L500.2500 ####[facility] [address] [place], [address] Potassium Normal 3.5-5.1 [facility] Comment on above: Result Comment: Canc elled via OM: Order cancelled - Patient discharged Performed By: #### L 100.0100, L500.2500 ####[facility] [address] [place], [address] Basic Metabolic Profile (BMP) Normal 136-145 [facility] Comment on above: Result Comment: Canc elled via OM: Order cancelled - Patient discharged Performed By: #### L 100.0100, L500.2500 ####[facility] [address] [place], [place], [address] Basophil percentageOrdered B y: Verna Hui on 10-04-2024 Basophils/100 WBC (Bld) 0.2 % 0-1 [facility] CBC W/Diff, Automatedon Absolute Lymph 1.54 X10 3/uL Normal 0.83-4.51 [facility] Comment on above: Order Comment: 210.1 Performed By: #### L 500.2500, L501.5200, L503.0106, L501.9520, L500.4100, L100.0100, L506.1001 ####[facility] [address] [place], [address] Absolute Neut 5.5 X10 3/uL Normal 2.0-7.7 [facility] Comment on above: Order Comment: 210.1 Performed By: #### L 500.2500, L501.5200, L503.0106, L501.9520, L500.4100, L100.0100, L506.1001 ####[facility] [address] [place], [address] Basophils/100 WBC (Bld) 0.2 % Normal 0-1 [facility] Comment on above: Order Comment: 210.1 Performed By: #### L 500.2500, L501.5200, L503.0106, L501.9520, L500.4100, L100.0100, L506.1001 ####[facility] [address] [place], [address] Eosinophils/100 WBC (Bld) 2.3 % Normal 0-5 [facility] Comment on above: Order Comment: 210.1 Performed By: #### L 500.2500, L501.5200, L503.0106, L501.9520, L500.4100, L100.0100, L506.1001 ####[facility] [address] [place], [address] Erythrocyte distribution width (RBC) [Ratio] 12.8 % Normal 11.6-14.6 [facility] Comment on above: Order Comment: 210.1 Performed By: #### L 500.2500, L501.5200, L503.0106, L501.9520, L500.4100, L100.0100, L506.1001 ####[facility] [address] [place], [address] Hematocrit (Bld) [Volume fraction] 35.2 % Low 40-54 [facility] Comment on above: Order Comment: 210.1 Performed By: #### L 500.2500, L501.5200, L503.0106, L501.9520, L500.4100, L100.0100, L506.1001 ####[facility] [address] [place], [address] Hemoglobin (Bld) [Mass/Vol] 12.0 g/dL Low 13.0-16.5 [facility] Comment on above: Order Comment: 210.1 Performed By: #### L 500.2500, L501.5200, L503.0106, L501.9520, L500.4100, L100.0100, L506.1001 ####[facility] [address] [place], [address] IG% 0.600 Normal 0.0-0.9 [facility] Comment on above: Order Comment: 210.1 Result Comment: IG% - Immature Granulocytes (promyelocytes, myelocytes andmetamyelocytes) > 1% indicates that a LEFT SHIFT is Present. Performed By: #### L 500.2500, L501.5200, L503.0106, L501.9520, L500.4100, L100.0100, L506.1001 ####[facility] [address] [place], [address] Lymphocytes/100 WBC (Bld) 18.8 % Low 19-41 [facility] Comment on above: Order Comment: 210.1 Performed By: #### L 500.2500, L501.5200, L503.0106, L501.9520, L500.4100, L100.0100, L506.1001 ####[facility] [address] [place], [address] MCH (RBC) [Entitic mass] 32.9 pg High 27.0-32.0 [facility] Comment on above: Order Comment: 210.1 Performed By: #### L 500.2500, L501.5200, L503.0106, L501.9520, L500.4100, L100.0100, L506.1001 ####[facility] [address] [place], [address] MCHC (RBC) [Mass/Vol] 34.1 g/dL Normal 32-36 [facility] Comment on above: Order Comment: 210.1 Performed By: #### L 500.2500, L501.5200, L503.0106, L501.9520, L500.4100, L100.0100, L506.1001 ####[facility] [address] [place], [address] MCV (RBC) [Entitic vol] 96.4 fL High 80-94 [facility] Comment on above: Order Comment: 210.1 Performed By: #### L 500.2500, L501.5200, L503.0106, L501.9520, L500.4100, L100.0100, L506.1001 ####[facility] [address] [place], [address] Monocytes/100 WBC (Bld) 11.1 % High 0-10 [facility] Comment on above: Order Comment: 210.1 Performed By: #### L 500.2500, L501.5200, L503.0106, L501.9520, L500.4100, L100.0100, L506.1001 ####[facility] [address] [place], [address] Neutrophils/100 WBC (Bld) 67.0 % Normal 47-70 [facility] Comment on above: Order Comment: .1 Performed By: #### L 500.2500, L501.5200, L503.0106, L501.9520, L500.4100, L100.0100, L506.1001 ####[facility] [address] [place], [address] Nucleated RBC (Bld) [#/Vol] 0 10*3/uL Normal 0-5 [facility] Comment on above: Order Comment: 210.1 Performed By: #### L 500.2500, L501.5200, L503.0106, L501.9520, L500.4100, L100.0100, L506.1001 ####[facility] [address] [place], [address] Platelet mean volume (Bld) [Entitic vol] 10.5 fL Normal 6.2-12.0 [facility] Comment on above: Order Comment: 210.1 Performed By: #### L 500.2500, L501.5200, L503.0106, L501.9520, L500.4100, L100.0100, L506.1001 ####[facility] [address] [place], [address] Platelets (Bld) [#/Vol] 244 10*3/uL Normal 150-450 [facility] Comment on above: Order Comment: 210.1 Performed By: #### L 500.2500, L501.5200, L503.0106, L501.9520, L500.4100, L100.0100, L506.1001 ####[facility] [address] [place], [address] RBC (Bld) [#/Vol] 3.65 10*6/uL Low 4.6-6.2 [facility] Comment on above: Order Comment: 210.1 Performed By: #### L 500.2500, L501.5200, L503.0106, L501.9520, L500.4100, L100.0100, L506.1001 ####[facility] [address] [place], [address] RDW SD 45.7 fl High 35.1-43.9 [facility] Comment on above: Order Comment: 210.1 Performed By: #### L 500.2500, L501.5200, L503.0106, L501.9520, L500.4100, L100.0100, L506.1001 ####[facility] [address] [place], [address] WBC (Bld) [#/Vol] 8.2 10*3/uL Normal 4.4-11.0 [facility] Comment on above: Order Comment: 210.1 Performed By: #### L 500.2500, L501.5200, L503.0106, L501.9520, L500.4100, L100.0100, L506.1001 ####[facility] [address] [place], [address] Absolute Neut Normal 2.0-7.7 [facility] Comment on above: Result Comment: Canc elled via OM: Order cancelled - Patient discharged Performed By: #### L 100.0100, L500.2500 ####[facility] [address] [place], [address] HCT Normal 40-54 [facility] Comment on above: Result Comment: Canc elled via OM: Order cancelled - Patient discharged Performed By: #### L 100.0100, L500.2500 ####[facility] [address] [place], [address] HGB Normal 13.0-16.5 [facility] Comment on above: Result Comment: Canc elled via OM: Order cancelled - Patient discharged Performed By: #### L 100.0100, L500.2500 ####[facility] [address] [place], [address] MCH Normal 27.0-32.0 [facility] Comment on above: Result Comment: Canc elled via OM: Order cancelled - Patient discharged Performed By: #### L 100.0100, L500.2500 ####[facility] [address] [place], [address] MCHC Normal 32-36 [facility] Comment on above: Result Comment: Canc elled via OM: Order cancelled - Patient discharged Performed By: #### L 100.0100, L500.2500 ####[facility] [address] [place], [address] MCV Normal 80-94 [facility] Comment on above: Result Comment: Canc elled via OM: Order cancelled - Patient discharged Performed By: #### L 100.0100, L500.2500 ####[facility] [address] [place], [address] NEUT% Normal 47-70 [facility] Comment on above: Result Comment: Canc elled via OM: Order cancelled - Patient discharged Performed By: #### L 100.0100, L500.2500 ####[facility] [address] [place], [address] PLT Normal 150-450 [facility] Comment on above: Result Comment: Canc elled via OM: Order cancelled - Patient discharged Performed By: #### L 100.0100, L500.2500 ####[facility] [address] [place], [address] RBC Normal 4.6-6.2 [facility] Comment on above: Result Comment: Canc elled via OM: Order cancelled - Patient discharged Performed By: #### L 100.0100, L500.2500 ####[facility] [address] [place], [address] RDW CV Normal 11.6-14.6 [facility] Comment on above: Result Comment: Canc elled via OM: Order cancelled - Patient discharged Performed By: #### L 100.0100, L500.2500 ####[facility] [address] [place], [address] RDW SD Normal 35.1-43.9 [facility] Comment on above: Result Comment: Canc elled via OM: Order cancelled - Patient discharged Performed By: #### L 100.0100, L500.2500 ####[facility] [address] [place], [address] WBC Normal 4.4-11.0 [facility] Comment on above: Result Comment: Canc elled via OM: Order cancelled - Patient discharged Performed By: #### L 100.0100, L500.2500 ####[facility] [address] [place], [address] Calculated very low density lipoprotein (VLDL) cholesterol measurementOrdered By: Verna Hui on 10-04-2024 VLDL Cholesterol 15 mg/dL 5-40 [facility] Carbon dioxide, total [Moles /volume] in Central venous bloodOrdered By: Verna Hui on 10-04-2024 CO2 [Moles/Vol] 23.2 mmol/L 21.0-32.0 [facility] Chloride assayOrdered By: Emigdio Hui on 10-04-2024 Chloride [Moles/Vol] 103 mmol/L 98-108 [facility] Eosinophil percentageOrdered By: Verna Hui on 10-04-2024 Eosinophils/100 WBC (Bld) 2.3 % 0-5 [facility] Erythrocyte distribution wid th (RBC) [Ratio]Ordered By: Verna Hui on 10-04-2024 Erythrocyte distribution width (RBC) [Entitic vol] 45.7 fL High 35.1-43.9 [facility] Erythrocyte distribution wid th ratioOrdered By: Verna Hui on 10-04-2024 Erythrocyte distribution width (RBC) [Ratio] 12.8 % 11.6-14.6 [facility] GFR/1.73 sq M.predicted ally g non-blacks MDRD (S/P/Bld) [Vol rate/Area]Ordered By: Verna Hui on 10-04-2024 Estimated GFR (MDRD) Non-Af Amer 107 >60 [facility] Comment on above: mL/min/1.73m2 CKD-EP I Creatinine Equation (2020) Hematocrit Auto (Bld) [Volum e fraction]Ordered By: Verna Hui on 10-04-2024 Hematocrit (Bld) [Volume fraction] 35.2 % Low 40-54 [facility] Hemoglobin measurementOrdere d By: Verna Hui on 10-04-2024 Hemoglobin (Bld) [Mass/Vol] 12.0 g/dL Low 13.0-16.5 [facility] Immature granulocytes/100 WB C Auto (Bld)Ordered By: Verna Hui on 10-04-2024 Immature granulocytes/100 WBC (Bld) 0.600 % 0.0-0.9 [facility] Comment on above: IG% - Immature Granu locytes (promyelocytes, myelocytes and metamyelocytes) > 1% indicates that a LEFT SHIFT is Present. L503.0106on 10-04-2024 Cobalamin (Vitamin B12) [Mass/Vol] 298 pg/mL Normal 180-914 [facility] Comment on above: Order Comment: 210.1 Performed By: #### L 500.2500, L501.5200, L503.0106, L501.9520, L500.4100, L100.0100, L506.1001 ####[facility] [address] [place], [address] L506.1001on 10-04-2024 Vitamin D 25-OH 14.6 ng/mL Low 30-100 [facility] Comment on above: Order Comment: 210.1 Result Comment: Cecy min D StatusDeficiency: <20 ng/mL (50nmol/L)Insufficiency: 20-30 ng/mL (50-75 nmol/L)Sufficiency: 30-100 ng/mL (75-250 nmol/L)Toxicity: >100 ng/mL (>250 nmol/L) Performed By: #### L 500.2500, L501.5200, L503.0106, L501.9520, L500.4100, L100.0100, L506.1001 ####[facility] [address] [place], [address] LDL calc ser/plasOrdered By: Verna Hui on 10-04-2024 LDL Cholesterol, Calculated 75 mg/dL [facility] Comment on above: Zzhndqzahl=023-605 m g/dL & Higher Veex=657 mg/dL or greater Lipid Profileon 10-04-2024 CHOL:HDL 3.05 Normal [facility] Comment on above: Order Comment: 210.1 Performed By: #### L 500.2500, L501.5200, L503.0106, L501.9520, L500.4100, L100.0100, L506.1001 ####[facility] [address] [place], [address] Cholesterol [Mass/Vol] 134 mg/dL Normal <=200 [facility] Comment on above: Order Comment: 210.1 Result Comment: Chol esterol level, Desirable <200 mg/dLBorderline high cholesterol 200-239 mg/dLHigh cholesterol >=240 mg/dLRecommendations of the NCEP Adult Treatment Panel for thefollowing risk-cutoff thresholds for the [place] Americanpulation. Performed By: #### L 500.2500, L501.5200, L503.0106, L501.9520, L500.4100, L100.0100, L506.1001 ####[facility] [address] [place], [address] Cholesterol in HDL [Mass/Vol] 44 mg/dL Normal [facility] Comment on above: Order Comment: 210.1 Result Comment: Trang onal Cholesterol Education Program (NCEP) guidelines:<40 mg/dL: Low HDL-cholesterol (major risk factor for CHD)>= 60 mg/dL: High HDL-cholesterol (negative risk factor forCHD)HDL-cholesterol is affected by a number of factors, e.g.smoking, exercise, hormones, sex and age. Performed By: #### L 500.2500, L501.5200, L503.0106, L501.9520, L500.4100, L100.0100, L506.1001 ####[facility] [address], [address] Cholesterol in LDL [Mass/Vol] 75 mg/dL Normal [facility] Comment on above: Order Comment: 210.1 Result Comment: Bord savlpf=317-992 mg/dL Higher Hfuj=292 mg/dL or greater Performed By: #### L 500.2500, L501.5200, L503.0106, L501.9520, L500.4100, L100.0100, L506.1001 ####[facility] [address] [place], [address] Cholesterol in VLDL [Mass/Vol] 15 mg/dL Normal 5-40 [facility] Comment on above: Order Comment: 210.1 Performed By: #### L 500.2500, L501.5200, L503.0106, L501.9520, L500.4100, L100.0100, L506.1001 ####[facility] [address] [place], [address] Triglyceride [Mass/Vol] 76 mg/dL Normal [facility] Comment on above: Order Comment: 210.1 Result Comment: The drugs N-Acetylcysteine and Metamizole may falselydepress this assay.Normal range: <150 mg/dLBorderline High: 150-199 mg/dLHigh: 200-499 mg/dLVery High: >500 mg/dL Performed By: #### L 500.2500, L501.5200, L503.0106, L501.9520, L500.4100, L100.0100, L506.1001 ####[facility] [address] [place], [address] Lymphocytes Auto (Unsp spec) [#/Vol]Ordered By: Verna Hui on 10-04-2024 Lymphocytes (Bld) [#/Vol] 1.54 10*3/uL 0.83-4.51 [facility] Lymphocytes/100 WBC Auto (Un sp spec)Ordered By: Verna Hui on 10-04-2024 Lymphocytes/100 WBC (Bld) 18.8 % Low 19-41 [facility] MCV (mean corpuscular volume ) determinationOrdered By: Verna Hui on 10-04-2024 MCV (RBC) [Entitic vol] 96.4 fL High 80-94 [facility] Magnesiumon 10-04-2024 Magnesium [Mass/Vol] 2.1 mg/dL Normal 1.5-2.2 [facility] Comment on above: Order Comment: 210.1 Performed By: #### L 500.2500, L501.5200, L503.0106, L501.9520, L500.4100, L100.0100, L506.1001 ####[facility] [address] [place], [address] Magnesium (Unsp spec) [Mass/ Vol]Ordered By: Verna Hui on 10-04-2024 Magnesium [Mass/Vol] 2.1 mg/dL 1.5-2.2 [facility] Mean corpuscular hemoglobin (MCH) determinationOrdered By: Verna Hiu on 10-04-2024 MCH (RBC) [Entitic mass] 32.9 pg High 27.0-32.0 [facility] Mean corpuscular hemoglobin concentration (MCHC) determinationOrdered By: Verna Hui on 10-04-2024 MCHC (RBC) [Mass/Vol] 34.1 g/dL 32-36 [facility] Mean platelet volume determi nationOrdered By: Verna Hui on 10-04-2024 Platelet mean volume (Bld) [Entitic vol] 10.5 fL 6.2-12.0 [facility] Monocyte percentageOrdered B y: Verna Hui on 10-04-2024 Monocytes/100 WBC (Bld) 11.1 % High 0-10 [facility] Neutrophil percentageOrdered By: Verna Hui on 10-04-2024 Neutrophils/100 WBC (Bld) 67.0 % 47-70 [facility] Nucleated red blood cell per centageOrdered By: Verna Hui on 10-04-2024 Nucleated RBC/100 WBC (Bld) [Ratio] 0 % 0-5 [facility] Platelet countOrdered By: Emigdio Hui on 10-04-2024 Platelets (Bld) [#/Vol] 244 10*3/uL 150-450 [facility] Potassium (Unsp spec) [Mass/ Vol]Ordered By: Verna Hui on 10-04-2024 Potassium [Moles/Vol] 4.1 mmol/L 3.3-5.1 [facility] RBC Auto (Bld) [#/Vol]Ordere d By: Verna Hui on 10-04-2024 RBC (Bld) [#/Vol] 3.65 10*6/uL Low 4.6-6.2 [facility] Screening total cholesterol/ high density lipoprotein (HDL) cholesterol ratioOrdered By: Verna Hui on 10-04-2024 Cholesterol.total/Choles terol in HDL [Mass ratio] 3.05 {ratio} [facility] Serum creatinine measurement (mass/volume)Ordered By: Verna Hui on 10-04-2024 Creatinine [Mass/Vol] 0.60 mg/dL Low 0.70-1.20 [facility] Serum glucose measurement (m ass/volume)Ordered By: Venra Hui on 10-04-2024 Glucose [Mass/Vol] 120 mg/dL High 70-99 [facility] Serum or plasma calcium jody urement (mass/volume)Ordered By: Verna Hui on 10-04-2024 Calcium [Mass/Vol] 8.3 mg/dL 7.6-11.0 [facility] Serum or plasma cholesterol in HDL measurement (mass/volume)Ordered By: Verna Hui on 10-04-2024 Cholesterol in HDL [Mass/Vol] 44 mg/dL >40 [facility] Comment on above: National Cholesterol Education Program (NCEP) guidelines:<40 mg/dL: Low HDL-cholesterol (major risk factor for CHD)>= 60 mg/dL: High HDL-cholesterol (negative risk factor for CHD)HDL-cholesterol is affected by a number of factors, e.g. smoking, exercise, hormones, sex and age. Serum or plasma cholesterol measurement (mass/volume)Ordered By: Verna Hui on 10-04-2024 Cholesterol [Mass/Vol] 134 mg/dL <201 [facility] Comment on above: Cholesterol level, D esirable <200 mg/dLBorderline high cholesterol 200-239 mg/dLHigh cholesterol >=240 mg/dLRecommendations of the NCEP Adult Treatment Panel for the following risk-cutoff thresholds for the [place] population. Serum or plasma urea nitroge n measurement (mass/volume)Ordered By: Verna Hui on 10-04-2024 Urea nitrogen [Mass/Vol] 20 mg/dL High 4-19 [facility] Sodium levelOrdered By: Leonard Hui on 10-04-2024 Sodium [Moles/Vol] 138 mmol/L 133-145 [facility] TSH DL <= 0.005 mIU/L QnOrde red By: Verna Hui on 10-04-2024 Thyroid Stimulating Hormone (TSH) 1.900 uIU/mL 0.300-4.200 [facility] Thyroid Stim Hormone (TSH)on 10-04-2024 TSH 1.900 uIU/mL Normal 0.300-4.200 [facility] Comment on above: Order Comment: 210.1 Performed By: #### L 500.2500, L501.5200, L503.0106, L501.9520, L500.4100, L100.0100, L506.1001 ####[facility] [address] [place], [address] Triglycerides measurementOrd ered By: Verna Hui on 10-04-2024 Triglyceride [Mass/Vol] 76 mg/dL <199 [facility] Comment on above: The drugs N-Acetylcy steine and Metamizole may falsely depress this assay. Normal range: <150 mg/dLBorderline High: 150-199 mg/dLHigh: 200-499 mg/dLVery High: >500 mg/dL Vitamin B12 ser/plasOrdered By: Verna Hui on 10-04-2024 Cobalamin (Vitamin B12) [Mass/Vol] 298 pg/mL 180-914 [facility] Vitamin D, 25-hydroxyOrdered By: Verna Hui on 10-04-2024 Vitamin D 25-Hydroxy 14.6 ng/mL Low 30-100 [facility] Comment on above: Vitamin D StatusDefi ciency: <20 ng/mL (50nmol/L)Insufficiency: 20-30 ng/mL (50-75 nmol/L)Sufficiency: 30-100 ng/mL (75-250 nmol/L)Toxicity: >100 ng/mL (>250 nmol/L) White blood cell (WBC) count Ordered By: Verna Hui on 10-04-2024 WBC (Bld) [#/Vol] 8.2 10*3/uL 4.4-11.0 [facility] Basic Metabolic Profile (BMP )on 10-03-2024 BUN Normal 4-19 [facility] Comment on above: Result Comment: Canc elled via OM: Order cancelled - Patient discharged Performed By: #### L 500.2500, L100.0100 ####[facility] [address] [place], [address] Order Comment: 210.1 Result Comment: UTO X2 Performed By: #### L 500.4100, L500.2500, L100.0100 ####[facility] [address] [place], [address] BUN/CRE Normal 10-20 [facility] Comment on above: Result Comment: Canc elled via OM: Order cancelled - Patient discharged Performed By: #### L 500.2500, L100.0100 ####[facility] [address] [place], [address] Order Comment: 210.1 Result Comment: UTO X2 Performed By: #### L 500.4100, L500.2500, L100.0100 ####[facility] [address] [place], [address] Calcium Normal 7.6-11.0 [facility] Comment on above: Result Comment: Canc elled via OM: Order cancelled - Patient discharged Performed By: #### L 500.2500, L100.0100 ####[facility] [address] [place], [address] Order Comment: 210.1 Result Comment: UTO X2 Performed By: #### L 500.4100, L500.2500, L100.0100 ####[facility] [address] [place], [address] CL Normal 98-107 [facility] Comment on above: Result Comment: Canc elled via OM: Order cancelled - Patient discharged Performed By: #### L 500.2500, L100.0100 ####[facility] [address] [place], [address] CO2 Normal 22.0-29.0 [facility] Comment on above: Result Comment: Canc elled via OM: Order cancelled - Patient discharged Performed By: #### L 500.2500, L100.0100 ####[facility] [address] [place], [address] Order Comment: 210.1 Result Comment: UTO X2 Performed By: #### L 500.4100, L500.2500, L100.0100 ####[facility] [address] [place], [address] CREAT,SERUM Normal 0.70-1.20 [facility] Comment on above: Result Comment: Canc elled via OM: Order cancelled - Patient discharged Performed By: #### L 500.2500, L100.0100 ####[facility] [address] [place], [address] Order Comment: 210.1 Result Comment: UTO X2 Performed By: #### L 500.4100, L500.2500, L100.0100 ####[facility] [address] [place], [address] eGFR Normal >60 [facility] Comment on above: Result Comment: Canc elled via OM: Order cancelled - Patient discharged Performed By: #### L 500.2500, L100.0100 ####[facility] [address] [place], [address] Order Comment: 210.1 Result Comment: UTO X2 Performed By: #### L 500.4100, L500.2500, L100.0100 ####[facility] [address] [place], [address] GAP Normal 5-15 [facility] Comment on above: Result Comment: Canc elled via OM: Order cancelled - Patient discharged Performed By: #### L 500.2500, L100.0100 ####[facility] [address] [place], [address] GLU Normal 70-99 [facility] Comment on above: Result Comment: Canc elled via OM: Order cancelled - Patient discharged Performed By: #### L 500.2500, L100.0100 ####[facility] [address] [place], [address] Order Comment: 210.1 Result Comment: UTO X2 Performed By: #### L 500.4100, L500.2500, L100.0100 ####[facility] [address] [place], [address] Potassium Normal 3.3-5.1 [facility] Comment on above: Result Comment: Canc elled via OM: Order cancelled - Patient discharged Performed By: #### L 500.2500, L100.0100 ####[facility] [address] [place], [address] Order Comment: 210.1 Result Comment: UTO X2 Performed By: #### L 500.4100, L500.2500, L100.0100 ####[facility] [address] [place], [address] Basic Metabolic Profile (BMP) Normal 136-145 [facility] Comment on above: Result Comment: Canc elled via OM: Order cancelled - Patient discharged Performed By: #### L 500.2500, L100.0100 ####[facility] [address] [place], [address] Anion Gap Normal 5-15 [facility] Comment on above: Order Comment: 210.1 Result Comment: UTO X2 Performed By: #### L 500.4100, L500.2500, L100.0100 ####[facility] [address] [place], [address] Chloride Normal 96-108 [facility] Comment on above: Order Comment: 210.1 Result Comment: UTO X2 Performed By: #### L 500.4100, L500.2500, L100.0100 ####[facility] [address] [place], [address] Sodium Normal 133-145 [facility] Comment on above: Order Comment: 210.1 Result Comment: UTO X2 Performed By: #### L 500.4100, L500.2500, L100.0100 ####[facility] [address] [place], [address] CBC W/Diff, Automatedon 03-0 Absolute Neut Normal 2.0-7.7 [facility] Comment on above: Result Comment: Canc elled via OM: Order cancelled - Patient discharged Performed By: #### L 500.2500, L100.0100 ####[facility] [address] [place], [address] Order Comment: 210.1 Result Comment: UTO X2 Performed By: #### L 500.4100, L500.2500, L100.0100 ####[facility] [address] [place], [address] HCT Normal 40-54 [facility] Comment on above: Result Comment: Canc elled via OM: Order cancelled - Patient discharged Performed By: #### L 500.2500, L100.0100 ####[facility] [address] [place], [address] Order Comment: 210.1 Result Comment: UTO X2 Performed By: #### L 500.4100, L500.2500, L100.0100 ####[facility] [address] [place], [address] HGB Normal 13.0-16.5 [facility] Comment on above: Result Comment: Canc elled via OM: Order cancelled - Patient discharged Performed By: #### L 500.2500, L100.0100 ####[facility] [address] [place], [address] Order Comment: 210.1 Result Comment: UTO X2 Performed By: #### L 500.4100, L500.2500, L100.0100 ####[facility] [address] [place], [address] MCH Normal 27.0-32.0 [facility] Comment on above: Result Comment: Canc elled via OM: Order cancelled - Patient discharged Performed By: #### L 500.2500, L100.0100 ####[facility] [address] [place], [address] Order Comment: 210.1 Result Comment: UTO X2 Performed By: #### L 500.4100, L500.2500, L100.0100 ####[facility] [address] [place], [address] MCHC Normal 32-36 [facility] Comment on above: Result Comment: Canc elled via OM: Order cancelled - Patient discharged Performed By: #### L 500.2500, L100.0100 ####[facility] [address] [place], [address] Order Comment: 210.1 Result Comment: UTO X2 Performed By: #### L 500.4100, L500.2500, L100.0100 ####[facility] [address] [place], [address] MCV Normal 80-94 [facility] Comment on above: Result Comment: Canc elled via OM: Order cancelled - Patient discharged Performed By: #### L 500.2500, L100.0100 ####[facility] [address] [place], [address] Order Comment: 210.1 Result Comment: UTO X2 Performed By: #### L 500.4100, L500.2500, L100.0100 ####[facility] [address] [place], [address] NEUT% Normal 47-70 [facility] Comment on above: Result Comment: Canc elled via OM: Order cancelled - Patient discharged Performed By: #### L 500.2500, L100.0100 ####[facility] [address] [place], [address] Order Comment: 210.1 Result Comment: UTO X2 Performed By: #### L 500.4100, L500.2500, L100.0100 ####[facility] [address] [place], [address] PLT Normal 150-450 [facility] Comment on above: Result Comment: Canc elled via OM: Order cancelled - Patient discharged Performed By: #### L 500.2500, L100.0100 ####[facility] [address] [place], [address] Order Comment: 210.1 Result Comment: UTO X2 Performed By: #### L 500.4100, L500.2500, L100.0100 ####[facility] [address] [place], [address] RBC Normal 4.6-6.2 [facility] Comment on above: Result Comment: Canc elled via OM: Order cancelled - Patient discharged Performed By: #### L 500.2500, L100.0100 ####[facility] [address] [place], [address] Order Comment: 210.1 Result Comment: UTO X2 Performed By: #### L 500.4100, L500.2500, L100.0100 ####[facility] [address] [place], [address] RDW CV Normal 11.6-14.6 [facility] Comment on above: Result Comment: Canc elled via OM: Order cancelled - Patient discharged Performed By: #### L 500.2500, L100.0100 ####[facility] [address] [place], [address] Order Comment: 210.1 Result Comment: UTO X2 Performed By: #### L 500.4100, L500.2500, L100.0100 ####[facility] [address] [place], [address] RDW SD Normal 35.1-43.9 [facility] Comment on above: Result Comment: Canc elled via OM: Order cancelled - Patient discharged Performed By: #### L 500.2500, L100.0100 ####[facility] [address] [place], [address] Order Comment: 210.1 Result Comment: UTO X2 Performed By: #### L 500.4100, L500.2500, L100.0100 ####[facility] [address] [place], [address] WBC Normal 4.4-11.0 [facility] Comment on above: Result Comment: Canc elled via OM: Order cancelled - Patient discharged Performed By: #### L 500.2500, L100.0100 ####[facility] [address] [place], [address] Order Comment: 210.1 Result Comment: UTO X2 Performed By: #### L 500.4100, L500.2500, L100.0100 ####[facility] [address] [place], [address] Lipid Profileon 10-03-2024 CHOL Normal <=200 [facility] Comment on above: Order Comment: 210.1 Result Comment: UTO X2 Performed By: #### L 500.4100, L500.2500, L100.0100 ####[facility] [address] [place], [address] CHOL:HDL Normal [facility] Comment on above: Order Comment: 210.1 Result Comment: UTO X2 Performed By: #### L 500.4100, L500.2500, L100.0100 ####[facility] [address] [place], [address] CLDL Normal [facility] Comment on above: Order Comment: 210.1 Result Comment: UTO X2 Performed By: #### L 500.4100, L500.2500, L100.0100 ####[facility] [address] [place], [address] HDL Normal [facility] Comment on above: Order Comment: 210.1 Result Comment: UTO X2 Performed By: #### L 500.4100, L500.2500, L100.0100 ####[facility] [address] [place], [address] TRIG Normal [facility] Comment on above: Order Comment: 210.1 Result Comment: UTO X2 Performed By: #### L 500.4100, L500.2500, L100.0100 ####[facility] [address] [place], [address] VLDL Normal 5-40 [facility] Comment on above: Order Comment: 210.1 Result Comment: UTO X2 Performed By: #### L 500.4100, L500.2500, L100.0100 ####[facility] [address] [place], [address] Basic Metabolic Profile (BMP )on 10-02-2024 BUN Normal 4-19 [facility] Comment on above: Result Comment: Canc elled via OM: Order cancelled - Patient discharged Performed By: #### L 100.0100, L500.2500 ####[facility] [address] [place], [address] BUN/CRE Normal 10-20 [facility] Comment on above: Result Comment: Canc elled via OM: Order cancelled - Patient discharged Performed By: #### L 100.0100, L500.2500 ####[facility] [address] [place], [address] Calcium Normal 7.6-11.0 [facility] Comment on above: Result Comment: Canc elled via OM: Order cancelled - Patient discharged Performed By: #### L 100.0100, L500.2500 ####[facility] [address] [place], [address] CL Normal 98-107 [facility] Comment on above: Result Comment: Canc elled via OM: Order cancelled - Patient discharged Performed By: #### L 100.0100, L500.2500 ####[facility] [address] [place], [address] CO2 Normal 21.0-32.0 [facility] Comment on above: Result Comment: Canc elled via OM: Order cancelled - Patient discharged Performed By: #### L 100.0100, L500.2500 ####[facility] [address] [place], [address] CREAT,SERUM Normal 0.8-1.3 [facility] Comment on above: Result Comment: Canc elled via OM: Order cancelled - Patient discharged Performed By: #### L 100.0100, L500.2500 ####[facility] [address] [place], [address] eGFR Normal >60 [facility] Comment on above: Result Comment: Canc elled via OM: Order cancelled - Patient discharged Performed By: #### L 100.0100, L500.2500 ####[facility] [address] [place], [address] GAP Normal 5-15 [facility] Comment on above: Result Comment: Canc elled via OM: Order cancelled - Patient discharged Performed By: #### L 100.0100, L500.2500 ####[facility] [address] [place], [address] GLU Normal 70-99 [facility] Comment on above: Result Comment: Canc elled via OM: Order cancelled - Patient discharged Performed By: #### L 100.0100, L500.2500 ####[facility] [address] [place], [address] Potassium Normal 3.5-5.1 [facility] Comment on above: Result Comment: Canc elled via OM: Order cancelled - Patient discharged Performed By: #### L 100.0100, L500.2500 ####[facility] [address] [place], [address] Basic Metabolic Profile (BMP) Normal 136-145 [facility] Comment on above: Result Comment: Canc elled via OM: Order cancelled - Patient discharged Performed By: #### L 100.0100, L500.2500 ####[facility] [address] [place], [address] CBC W/Diff, Automatedon 03-0 Absolute Neut Normal 2.0-7.7 [facility] Comment on above: Result Comment: Canc elled via OM: Order cancelled - Patient discharged Performed By: #### L 100.0100, L500.2500 ####[facility] [address] [place], [address] HCT Normal 40-54 [facility] Comment on above: Result Comment: Canc elled via OM: Order cancelled - Patient discharged Performed By: #### L 100.0100, L500.2500 ####[facility] [address] [place], [address] HGB Normal 13.0-16.5 [facility] Comment on above: Result Comment: Canc elled via OM: Order cancelled - Patient discharged Performed By: #### L 100.0100, L500.2500 ####[facility] [address] [place], [address] MCH Normal 27.0-32.0 [facility] Comment on above: Result Comment: Canc elled via OM: Order cancelled - Patient discharged Performed By: #### L 100.0100, L500.2500 ####[facility] [address] [place], [address] MCHC Normal 32-36 [facility] Comment on above: Result Comment: Canc elled via OM: Order cancelled - Patient discharged Performed By: #### L 100.0100, L500.2500 ####[facility] [address] [place], [address] MCV Normal 80-94 [facility] Comment on above: Result Comment: Canc elled via OM: Order cancelled - Patient discharged Performed By: #### L 100.0100, L500.2500 ####[facility] [address] [place], [address] NEUT% Normal 47-70 [facility] Comment on above: Result Comment: Canc elled via OM: Order cancelled - Patient discharged Performed By: #### L 100.0100, L500.2500 ####[facility] [address] [place], [address] PLT Normal 150-450 [facility] Comment on above: Result Comment: Canc elled via OM: Order cancelled - Patient discharged Performed By: #### L 100.0100, L500.2500 ####[facility] [address] [place], [address] RBC Normal 4.6-6.2 [facility] Comment on above: Result Comment: Canc elled via OM: Order cancelled - Patient discharged Performed By: #### L 100.0100, L500.2500 ####[facility] [address] [place], [address] RDW CV Normal 11.6-14.6 [facility] Comment on above: Result Comment: Canc elled via OM: Order cancelled - Patient discharged Performed By: #### L 100.0100, L500.2500 ####[facility] [address] [place], [address] RDW SD Normal 35.1-43.9 [facility] Comment on above: Result Comment: Canc elled via OM: Order cancelled - Patient discharged Performed By: #### L 100.0100, L500.2500 ####[facility] [address] [place], [address] WBC Normal 4.4-11.0 [facility] Comment on above: Result Comment: Canc elled via OM: Order cancelled - Patient discharged Performed By: #### L 100.0100, L500.2500 ####[facility] [address] [place], [address] Basic Metabolic Profile (BMP )on 10-01-2024 BUN Normal 4-19 [facility] Comment on above: Result Comment: Canc elled via OM: Order cancelled - Patient discharged Performed By: #### L 100.0100, L500.2500 ####[facility] [address] [place], [address] BUN/CRE Normal 10-20 [facility] Comment on above: Result Comment: Canc elled via OM: Order cancelled - Patient discharged Performed By: #### L 100.0100, L500.2500 ####[facility] [address] [place], [address] Calcium Normal 7.6-11.0 [facility] Comment on above: Result Comment: Canc elled via OM: Order cancelled - Patient discharged Performed By: #### L 100.0100, L500.2500 ####[facility] [address] [place], [address] CL Normal 98-107 [facility] Comment on above: Result Comment: Canc elled via OM: Order cancelled - Patient discharged Performed By: #### L 100.0100, L500.2500 ####[facility] [address] [place], [address] CO2 Normal 21.0-32.0 [facility] Comment on above: Result Comment: Canc elled via OM: Order cancelled - Patient discharged Performed By: #### L 100.0100, L500.2500 ####[facility] [address] [place], [address] CREAT,SERUM Normal 0.8-1.3 [facility] Comment on above: Result Comment: Canc elled via OM: Order cancelled - Patient discharged Performed By: #### L 100.0100, L500.2500 ####[facility] [address] [place], [address] eGFR Normal >60 [facility] Comment on above: Result Comment: Canc elled via OM: Order cancelled - Patient discharged Performed By: #### L 100.0100, L500.2500 ####[facility] [address] [place], [address] GAP Normal 5-15 [facility] Comment on above: Result Comment: Canc elled via OM: Order cancelled - Patient discharged Performed By: #### L 100.0100, L500.2500 ####[facility] [address] [place], [address] GLU Normal 70-99 [facility] Comment on above: Result Comment: Canc elled via OM: Order cancelled - Patient discharged Performed By: #### L 100.0100, L500.2500 ####[facility] [address] [place], [address] Potassium Normal 3.5-5.1 [facility] Comment on above: Result Comment: Canc elled via OM: Order cancelled - Patient discharged Performed By: #### L 100.0100, L500.2500 ####[facility] [address] [place], [address] Basic Metabolic Profile (BMP) Normal 136-145 [facility] Comment on above: Result Comment: Canc elled via OM: Order cancelled - Patient discharged Performed By: #### L 100.0100, L500.2500 ####[facility] [address] [place], [address] CBC W/Diff, Automatedon 03-0 Absolute Neut Normal 2.0-7.7 [facility] Comment on above: Result Comment: Canc elled via OM: Order cancelled - Patient discharged Performed By: #### L 100.0100, L500.2500 ####[facility] [address] [place], [address] HCT Normal 40-54 [facility] Comment on above: Result Comment: Canc elled via OM: Order cancelled - Patient discharged Performed By: #### L 100.0100, L500.2500 ####[facility] [address] [place], [address] HGB Normal 13.0-16.5 [facility] Comment on above: Result Comment: Canc elled via OM: Order cancelled - Patient discharged Performed By: #### L 100.0100, L500.2500 ####[facility] [address] [place], [address] MCH Normal 27.0-32.0 [facility] Comment on above: Result Comment: Canc elled via OM: Order cancelled - Patient discharged Performed By: #### L 100.0100, L500.2500 ####[facility] [address] [place], [address] MCHC Normal 32-36 [facility] Comment on above: Result Comment: Canc elled via OM: Order cancelled - Patient discharged Performed By: #### L 100.0100, L500.2500 ####[facility] [address] [place], [address] MCV Normal 80-94 [facility] Comment on above: Result Comment: Canc elled via OM: Order cancelled - Patient discharged Performed By: #### L 100.0100, L500.2500 ####[facility] [address] [place], [address] NEUT% Normal 47-70 [facility] Comment on above: Result Comment: Canc elled via OM: Order cancelled - Patient discharged Performed By: #### L 100.0100, L500.2500 ####[facility] [address] [place], [address] PLT Normal 150-450 [facility] Comment on above: Result Comment: Canc elled via OM: Order cancelled - Patient discharged Performed By: #### L 100.0100, L500.2500 ####[facility] [address] [place], [address] RBC Normal 4.6-6.2 [facility] Comment on above: Result Comment: Canc elled via OM: Order cancelled - Patient discharged Performed By: #### L 100.0100, L500.2500 ####[facility] [address] [place], [address] RDW CV Normal 11.6-14.6 [facility] Comment on above: Result Comment: Canc elled via OM: Order cancelled - Patient discharged Performed By: #### L 100.0100, L500.2500 ####[facility] [address] [place], [address] RDW SD Normal 35.1-43.9 [facility] Comment on above: Result Comment: Canc elled via OM: Order cancelled - Patient discharged Performed By: #### L 100.0100, L500.2500 ####[facility] [address] [place], [address] WBC Normal 4.4-11.0 [facility] Comment on above: Result Comment: Canc elled via OM: Order cancelled - Patient discharged Performed By: #### L 100.0100, L500.2500 ####[facility] [address] [place], [address] Absolute neutrophil countOrd ered By: Tricia Taylor on 09-30-2024 Neutrophils (Bld) [#/Vol] 7.1 10*3/uL 2.0-7.7 [facility] BUN/creatinine ratioOrdered By: Shanon Bravo on 09-30-2024 Urea nitrogen/Creatinine [Mass ratio] 41.7 mg/mg High 10-20 [facility] Basic Metabolic Profile (BMP )on 09-30-2024 Anion gap [Moles/Vol] 13 mmol/L Normal 5-15 [facility] Comment on above: Performed By: #### L 500.2500 ####[facility] [address] [place], [address] BUN/CRE 41.7 RATIO High 10-20 [facility] Comment on above: Performed By: #### L 500.2500 ####[facility] [address] [place], [address] Calcium [Mass/Vol] 8.3 mg/dL Normal 7.6-11.0 [facility] Comment on above: Performed By: #### L 500.2500 ####[facility] [address] [place], [address] Chloride [Moles/Vol] 107 mmol/L Normal 96-108 [facility] Comment on above: Performed By: #### L 500.2500 ####[facility] [address] [place], [address] CO2 [Moles/Vol] 22.6 mmol/L Normal 22.0-29.0 [facility] Comment on above: Performed By: #### L 500.2500 ####[facility] [address] [place], [address] Creatinine [Mass/Vol] 0.72 mg/dL Normal 0.70-1.20 [facility] Comment on above: Performed By: #### L 500.2500 ####[facility] [address] [place], [address] ECRCL 113.02 ml/min Normal [facility] Comment on above: Performed By: #### L 500.2500 ####[facility] [address] [place], [address] GFR/1.73 sq M.predicted among non-blacks MDRD (S/P/Bld) [Vol rate/Area] 101 mL/min/{1.73_m2} Normal >60 [facility] Comment on above: Result Comment: mL/m in/1.73m2 CKD-EPI Creatinine Equation (2020) Performed By: #### L 500.2500 ####[facility] [address] [place], [address] Glucose [Mass/Vol] 99 mg/dL Normal 70-99 [facility] Comment on above: Performed By: #### L 500.2500 ####[facility] [address] [place], [address] Potassium [Moles/Vol] 3.8 mmol/L Normal 3.3-5.1 [facility] Comment on above: Performed By: #### L 500.2500 ####[facility] [address] [place], [address] Sodium [Moles/Vol] 142 mmol/L Normal 133-145 [facility] Comment on above: Performed By: #### L 500.2500 ####[facility] [address] [place], [address] Urea nitrogen [Mass/Vol] 30 mg/dL High 4-19 [facility] Comment on above: Performed By: #### L 500.2500 ####[facility] [address] [place], [address] BUN/CRE 41.1 RATIO High 10-20 [facility] Comment on above: Result Comment: WILL REORDER Performed By: #### L 500.2500, L100.0100 ####[facility] [address] [place], [address] Creatinine [Mass/Vol] 0.70 mg/dL Normal 0.70-1.20 [facility] Comment on above: Result Comment: WILL REORDER Performed By: #### L 500.2500, L100.0100 ####[facility] [address] [place], [address] ECRCL 113.02 ml/min Normal [facility] Comment on above: Result Comment: WILL REORDER Performed By: #### L 500.2500, L100.0100 ####[facility] [address] [place], [address] GFR/1.73 sq M.predicted among non-blacks MDRD (S/P/Bld) [Vol rate/Area] 102 mL/min/{1.73_m2} Normal >60 [facility] Comment on above: Result Comment: WILL REORDERmL/min/1.73m2 CKD-EPI Creatinine Equation (2020) Performed By: #### L 500.2500, L100.0100 ####[facility] [address] [place], [address] Glucose [Mass/Vol] 102 mg/dL High 70-99 [facility] Comment on above: Result Comment: WILL REORDER Performed By: #### L 500.2500, L100.0100 ####[facility] [address] [place], [address] Urea nitrogen [Mass/Vol] 29 mg/dL High 4-19 [facility] Comment on above: Result Comment: WILL REORDER Performed By: #### L 500.2500, L100.0100 ####[facility] [address] [place], [address] Calcium Normal 7.6-11.0 [facility] Comment on above: Result Comment: WILL REORDER Performed By: #### L 500.2500, L100.0100 ####[facility] [address] [place], [address] CL Normal 98-107 [facility] Comment on above: Result Comment: WILL REORDER Performed By: #### L 500.2500, L100.0100 ####[facility] [address] [place], [address] CO2 Normal 21.0-32.0 [facility] Comment on above: Result Comment: WILL REORDER Performed By: #### L 500.2500, L100.0100 ####[facility] [address] [place], [address] GAP Normal 5-15 [facility] Comment on above: Result Comment: WILL REORDER Performed By: #### L 500.2500, L100.0100 ####[facility] [address] [place], [address] Potassium Normal 3.5-5.1 [facility] Comment on above: Result Comment: WILL REORDER Performed By: #### L 500.2500, L100.0100 ####[facility] [address] [place], [address] Basic Metabolic Profile (BMP) Normal 136-145 [facility] Comment on above: Result Comment: WILL REORDER Performed By: #### L 500.2500, L100.0100 ####[facility] [address] [place], [address] Basophil percentageOrdered B y: Tricia Taylor on 09-30-2024 Basophils/100 WBC (Bld) 0.1 % 0-1 [facility] CBC W/Diff, Automatedon 09-04 Absolute Lymph 2.14 X10 3/uL Normal 0.83-4.51 [facility] Comment on above: Performed By: #### L 500.2500, L100.0100 ####[facility] [address] [place], [address] Absolute Neut 7.1 X10 3/uL Normal 2.0-7.7 [facility] Comment on above: Performed By: #### L 500.2500, L100.0100 ####[facility] [address] [place], [address] Basophils/100 WBC (Bld) 0.1 % Normal 0-1 [facility] Comment on above: Performed By: #### L 500.2500, L100.0100 ####[facility] [address] [place], [address] Eosinophils/100 WBC (Bld) 0.1 % Normal 0-5 [facility] Comment on above: Performed By: #### L 500.2500, L100.0100 ####[facility] [address] [place], [address] Erythrocyte distribution width (RBC) [Ratio] 12.8 % Normal 11.6-14.6 [facility] Comment on above: Performed By: #### L 500.2500, L100.0100 ####[facility] [address] [place], [address] Hematocrit (Bld) [Volume fraction] 35.8 % Low 40-54 [facility] Comment on above: Performed By: #### L 500.2500, L100.0100 ####[facility] [address] [place], [address] Hemoglobin (Bld) [Mass/Vol] 12.3 g/dL Low 13.0-16.5 [facility] Comment on above: Performed By: #### L 500.2500, L100.0100 ####[facility] [address] [place], [address] IG% 0.500 Normal 0.0-0.9 [facility] Comment on above: Result Comment: IG% - Immature Granulocytes (promyelocytes, myelocytes andmetamyelocytes) > 1% indicates that a LEFT SHIFT is Present. Performed By: #### L 500.2500, L100.0100 ####[facility] [address] [place], [address] Lymphocytes/100 WBC (Bld) 20.8 % Normal 19-41 [facility] Comment on above: Performed By: #### L 500.2500, L100.0100 ####[facility] [address] [place], [address] MCH (RBC) [Entitic mass] 33.2 pg High 27.0-32.0 [facility] Comment on above: Performed By: #### L 500.2500, L100.0100 ####[facility] [address] [place], [address] MCHC (RBC) [Mass/Vol] 34.4 g/dL Normal 32-36 [facility] Comment on above: Performed By: #### L 500.2500, L100.0100 ####[facility] [address] [place], [address] MCV (RBC) [Entitic vol] 96.8 fL High 80-94 [facility] Comment on above: Performed By: #### L 500.2500, L100.0100 ####[facility] [address] [place], [address] Monocytes/100 WBC (Bld) 9.7 % Normal 0-10 [facility] Comment on above: Performed By: #### L 500.2500, L100.0100 ####[facility] [address] [place], [address] Neutrophils/100 WBC (Bld) 68.8 % Normal 47-70 [facility] Comment on above: Performed By: #### L 500.2500, L100.0100 ####[facility] [address] [place], [address] Nucleated RBC (Bld) [#/Vol] 0 10*3/uL Normal 0-5 [facility] Comment on above: Performed By: #### L 500.2500, L100.0100 ####[facility] [address] [place], [address] Platelet mean volume (Bld) [Entitic vol] 10.3 fL Normal 6.2-12.0 [facility] Comment on above: Performed By: #### L 500.2500, L100.0100 ####[facility] [address] [place], [address] Platelets (Bld) [#/Vol] 179 10*3/uL Normal 150-450 [facility] Comment on above: Performed By: #### L 500.2500, L100.0100 ####[facility] [address] [place], [address] RBC (Bld) [#/Vol] 3.70 10*6/uL Low 4.6-6.2 [facility] Comment on above: Performed By: #### L 500.2500, L100.0100 ####[facility] [address] [place], [address] RDW SD 45.6 fl High 35.1-43.9 [facility] Comment on above: Performed By: #### L 500.2500, L100.0100 ####[facility] [address] [place], [address] WBC (Bld) [#/Vol] 10.3 10*3/uL Normal 4.4-11.0 [facility] Comment on above: Performed By: #### L 500.2500, L100.0100 ####[facility] [address] [place], [address] Carbon dioxide measurementOr dered By: Shanon Bravo on 09-30-2024 CO2 [Moles/Vol] 22.6 mmol/L 22.0-29.0 [facility] Chloride measurementOrdered By: Shanon Bravo on 09-30-2024 Chloride [Moles/Vol] 107 mmol/L 96-108 [facility] Eosinophil percentageOrdered By: Tricia Taylor on 09-30-2024 Eosinophils/100 WBC (Bld) 0.1 % 0-5 [facility] Erythrocyte distribution wid th (RBC) [Ratio]Ordered By: Tricia Taylor on 09-30-2024 Erythrocyte distribution width (RBC) [Entitic vol] 45.6 fL High 35.1-43.9 [facility] Erythrocyte distribution wid th ratioOrdered By: Tricia Taylor on 09-30-2024 Erythrocyte distribution width (RBC) [Ratio] 12.8 % 11.6-14.6 [facility] Estimation of creatinine brandon aranceOrdered By: Shanon Bravo on 09-30-2024 Estimated Creatinine Clearance Calc 113.02 ml/min [facility] GFR/1.73 sq M.predicted ally g non-blacks MDRD (S/P/Bld) [Vol rate/Area]Ordered By: Shanon Bravo on 09-30-2024 Estimated GFR (MDRD) Non-Af Amer 101 >60 [facility] Comment on above: mL/min/1.73m2 CKD-EP I Creatinine Equation (2020) Hematocrit Auto (Bld) [Volum e fraction]Ordered By: Tricia Taylor on 09-30-2024 Hematocrit (Bld) [Volume fraction] 35.8 % Low 40-54 [facility] Hemoglobin measurementOrdere d By: Tricia Taylor on 09-30-2024 Hemoglobin (Bld) [Mass/Vol] 12.3 g/dL Low 13.0-16.5 [facility] Immature granulocytes/100 WB C Auto (Bld)Ordered By: Tricia Taylor on 09-30-2024 Immature granulocytes/100 WBC (Bld) 0.500 % 0.0-0.9 [facility] Comment on above: IG% - Immature Granu locytes (promyelocytes, myelocytes and metamyelocytes) > 1% indicates that a LEFT SHIFT is Present. Lymphocytes Auto (Unsp spec) [#/Vol]Ordered By: Tricia Taylor on 09-30-2024 Lymphocytes (Bld) [#/Vol] 2.14 10*3/uL 0.83-4.51 [facility] Lymphocytes/100 WBC Auto (Un sp spec)Ordered By: Tricia Taylor on 09-30-2024 Lymphocytes/100 WBC (Bld) 20.8 % 19-41 [facility] MCV (mean corpuscular volume ) determinationOrdered By: Tricia Taylor on 09-30-2024 MCV (RBC) [Entitic vol] 96.8 fL High 80-94 [facility] Mean corpuscular hemoglobin (MCH) determinationOrdered By: Tricia Taylor on 09-30-2024 MCH (RBC) [Entitic mass] 33.2 pg High 27.0-32.0 [facility] Mean corpuscular hemoglobin concentration (MCHC) determinationOrdered By: Tricia Taylor on 09-30-2024 MCHC (RBC) [Mass/Vol] 34.4 g/dL 32-36 [facility] Mean platelet volume determi nationOrdered By: Tricia Taylor on 09-30-2024 Platelet mean volume (Bld) [Entitic vol] 10.3 fL 6.2-12.0 [facility] Monocyte percentageOrdered B y: Tricia Taylor on 09-30-2024 Monocytes/100 WBC (Bld) 9.7 % 0-10 [facility] Neutrophil percentageOrdered By: Tricia Taylor on 09-30-2024 Neutrophils/100 WBC (Bld) 68.8 % 47-70 [facility] Nucleated red blood cell per centageOrdered By: Tricia Taylor on 09-30-2024 Nucleated RBC/100 WBC (Bld) [Ratio] 0 % 0-5 [facility] Platelet countOrdered By: John Taylor on 09-30-2024 Platelets (Bld) [#/Vol] 179 10*3/uL 150-450 [facility] RBC Auto (Bld) [#/Vol]Ordere d By: Tricia Taylor on 09-30-2024 RBC (Bld) [#/Vol] 3.70 10*6/uL Low 4.6-6.2 [facility] Serum creatinine measurement (mass/volume)Ordered By: Shanon Bravo on 09-30-2024 Creatinine [Mass/Vol] 0.72 mg/dL 0.70-1.20 [facility] Serum glucose measurement (m ass/volume)Ordered By: Shanon Bravo on 09-30-2024 Glucose [Mass/Vol] 99 mg/dL 70-99 [facility] Serum or plasma anion gap de termination (moles/volume)Ordered By: Shanon Bravo on 09-30-2024 Anion gap [Moles/Vol] 13 mmol/L 5-15 [facility] Serum or plasma calcium jody urement (mass/volume)Ordered By: Shanon Bravo on 09-30-2024 Calcium [Mass/Vol] 8.3 mg/dL 7.6-11.0 [facility] Serum or plasma potassium me asurementOrdered By: Shanon Bravo on 09-30-2024 Potassium [Moles/Vol] 3.8 mmol/L 3.3-5.1 [facility] Serum or plasma sodium measu rement (moles/volume)Ordered By: Shanon Bravo on 09-30-2024 Sodium [Moles/Vol] 142 mmol/L 133-145 [facility] Serum or plasma urea nitroge n measurement (mass/volume)Ordered By: Shanon Bravo on 09-30-2024 Urea nitrogen [Mass/Vol] 30 mg/dL High 4-19 [facility] White blood cell (WBC) count Ordered By: Tricia Taylor on 09-30-2024 WBC (Bld) [#/Vol] 10.3 10*3/uL 4.4-11.0 [facility] Basic Metabolic Profile (BMP )on 09-29-2024 Chloride [Moles/Vol] 107 mmol/L Normal 98-107 [facility] Comment on above: Performed By: #### L 100.0100, L500.2500 ####[facility] [address] [place], [address] CO2 [Moles/Vol] 21.9 mmol/L Normal 21.0-32.0 [facility] Comment on above: Performed By: #### L 100.0100, L500.2500 ####[facility] [address] [place], [address] GAP 11 Normal 5-15 [facility] Comment on above: Performed By: #### L 100.0100, L500.2500 ####[facility] [address] [place], [address] Potassium [Moles/Vol] 4.2 mmol/L Normal 3.5-5.1 [facility] Comment on above: Performed By: #### L 100.0100, L500.2500 ####[facility] [address] [place], [address] Sodium [Moles/Vol] 140 mmol/L Normal 136-145 [facility] Comment on above: Performed By: #### L 100.0100, L500.2500 ####[facility] [address] [place], [address] Calcium [Mass/Vol] 8.5 mg/dL Normal 7.6-11.0 [facility] Comment on above: Performed By: #### L 100.0100, L500.2500 ####[facility] [address] [place], [address] CBC W/Diff, Automatedon 02-2 Absolute Lymph 0.66 X10 3/uL Low 0.83-4.51 [facility] Comment on above: Performed By: #### L 100.0100, L500.2500 ####[facility] [address] [place], [address] Absolute Neut 11.6 X10 3/uL High 2.0-7.7 [facility] Comment on above: Performed By: #### L 100.0100, L500.2500 ####[facility] [address] [place], [address] Basophils/100 WBC (Bld) 0.1 % Normal 0-1 [facility] Comment on above: Performed By: #### L 100.0100, L500.2500 ####[facility] [address] [place], [address] Eosinophils/100 WBC (Bld) 0.0 % Normal 0-5 [facility] Comment on above: Performed By: #### L 100.0100, L500.2500 ####[facility] [address] [place], [address] Erythrocyte distribution width (RBC) [Ratio] 12.8 % Normal 11.6-14.6 [facility] Comment on above: Performed By: #### L 100.0100, L500.2500 ####[facility] [address] [place], [address] Hematocrit (Bld) [Volume fraction] 36.6 % Low 40-54 [facility] Comment on above: Performed By: #### L 100.0100, L500.2500 ####[facility] [address] [place], [address] Hemoglobin (Bld) [Mass/Vol] 12.2 g/dL Low 13.0-16.5 [facility] Comment on above: Performed By: #### L 100.0100, L500.2500 ####[facility] [address] [place], [address] IG% 0.400 Normal 0.0-0.9 [facility] Comment on above: Result Comment: IG% - Immature Granulocytes (promyelocytes, myelocytes andmetamyelocytes) > 1% indicates that a LEFT SHIFT is Present. Performed By: #### L 100.0100, L500.2500 ####[facility] [address] [place], [address] Lymphocytes/100 WBC (Bld) 5.1 % Low 19-41 [facility] Comment on above: Performed By: #### L 100.0100, L500.2500 ####[facility] [address] [place], [address] MCH (RBC) [Entitic mass] 32.3 pg High 27.0-32.0 [facility] Comment on above: Performed By: #### L 100.0100, L500.2500 ####[facility] [address] [place], [address] MCHC (RBC) [Mass/Vol] 33.3 g/dL Normal 32-36 [facility] Comment on above: Performed By: #### L 100.0100, L500.2500 ####[facility] [address] [place], [address] MCV (RBC) [Entitic vol] 96.8 fL High 80-94 [facility] Comment on above: Performed By: #### L 100.0100, L500.2500 ####[facility] [address] [place], [address] Monocytes/100 WBC (Bld) 5.5 % Normal 0-10 [facility] Comment on above: Performed By: #### L 100.0100, L500.2500 ####[facility] [address] [place], [address] Neutrophils/100 WBC (Bld) 88.9 % High 47-70 [facility] Comment on above: Performed By: #### L 100.0100, L500.2500 ####[facility] [address] [place], [address] Nucleated RBC (Bld) [#/Vol] 0 10*3/uL Normal 0-5 [facility] Comment on above: Performed By: #### L 100.0100, L500.2500 ####[facility] [address] [place], [address] Platelet mean volume (Bld) [Entitic vol] 10.1 fL Normal 6.2-12.0 [facility] Comment on above: Performed By: #### L 100.0100, L500.2500 ####[facility] [address] [place], [address] Platelets (Bld) [#/Vol] 183 10*3/uL Normal 150-450 [facility] Comment on above: Performed By: #### L 100.0100, L500.2500 ####[facility] [address] [place], [address] RBC (Bld) [#/Vol] 3.78 10*6/uL Low 4.6-6.2 [facility] Comment on above: Performed By: #### L 100.0100, L500.2500 ####[facility] [address] [place], [address] RDW SD 45.6 fl High 35.1-43.9 [facility] Comment on above: Performed By: #### L 100.0100, L500.2500 ####[facility] [address] [place], [address] WBC (Bld) [#/Vol] 13.0 10*3/uL High 4.4-11.0 [facility] Comment on above: Performed By: #### L 100.0100, L500.2500 ####[facility] [address] [place], [address] Serum or plasma chloride nghia surement (moles/volume)Ordered By: Tricia Taylor on 09-29-2024 Chloride [Moles/Vol] 107 mmol/L 98-107 [facility] Arterial patency Wrist arter y --pre arterial punctureOrdered By: Tricia Taylor on 09-28-2024 Dany Test Positive [facility] Base excess Calc (BldV) [Mol es/Vol]Ordered By: Tricia Taylor on 09-28-2024 Blood Gas Base Excess -2 mmol/L -2-2 [facility] Basic Metabolic Profile (BMP )on 09-28-2024 Chloride [Moles/Vol] 105 mmol/L Normal 98-107 [facility] Comment on above: Performed By: #### L 500.2500, L100.0100 ####[facility] [address] [place], [address] CO2 [Moles/Vol] 21.4 mmol/L Normal 21.0-32.0 [facility] Comment on above: Performed By: #### L 500.2500, L100.0100 ####[facility] [address] [place], [address] GAP 13 Normal 5-15 [facility] Comment on above: Performed By: #### L 500.2500, L100.0100 ####[facility] [address] [place], [address] Potassium [Moles/Vol] 3.8 mmol/L Normal 3.5-5.1 [facility] Comment on above: Performed By: #### L 500.2500, L100.0100 ####[facility] [address] [place], [address] Sodium [Moles/Vol] 139 mmol/L Normal 136-145 [facility] Comment on above: Performed By: #### L 500.2500, L100.0100 ####[facility] [address] [place], [address] Calcium [Mass/Vol] 8.0 mg/dL Normal 7.6-11.0 [facility] Comment on above: Performed By: #### L 500.2500, L100.0100 ####[facility] [address] [place], [address] Blood Gases by [facility] Base excess Calc (Bld) [Moles/Vol] -3 mmol/L Low -2 to +2 [facility] Comment on above: Order Comment: WAS O RIGINALLY ENTERED VENOUS BUT IS ARTERIAL. CANCELLEDTHOSE RESULTS THEN MANUALLY ENTERED.Results manually entered by WBATDORF [employer] and verified byJTHEOBALD [employer]IST[employer] Performed By: #### L 0.0800 ####[facility] [address] [place], [address] CO2 [Moles/Vol] 25 mmol/L Normal [facility] Comment on above: Order Comment: WAS O RIGINALLY ENTERED VENOUS BUT IS ARTERIAL. CANCELLEDTHOSE RESULTS THEN MANUALLY ENTERED.Results manually entered by WB[employer]F [employer] and verified byJTHEOBALD [employer]MINIST[employer] Performed By: #### L 0.0800 ####[facility] [address] [place], [address] HCO3 (Bld) [Moles/Vol] 23.6 mmol/L Normal 22-26 [facility] Comment on above: Order Comment: WAS O RIGINALLY ENTERED VENOUS BUT IS ARTERIAL. CANCELLEDTHOSE RESULTS THEN MANUALLY ENTERED.Results manually entered by ATDO [employer] and verified byJTHEOBALD [employer]MINIST[employer] Performed By: #### L 0.0800 ####[facility] [address] [place], [address] pCO2 48.7 mmHg High 35-45 [facility] Comment on above: Order Comment: WAS O RIGINALLY ENTERED VENOUS BUT IS ARTERIAL. CANCELLEDTHOSE RESULTS THEN MANUALLY ENTERED.Results manually entered by WB[employer]F [employer] and verified byJTHEOBALD [employer]IST[employer] Performed By: #### L 9000.0800 ####[facility] [address] [place], [address] pH (Bld) 7.29 [pH] Low 7.35-7.45 [facility] Comment on above: Order Comment: WAS O RIGINALLY ENTERED VENOUS BUT IS ARTERIAL. CANCELLEDTHOSE RESULTS THEN MANUALLY ENTERED.Results manually entered by WBATD[employer]F [employer] and verified byJTHEOBALD [employer]IST[employer] Performed By: #### L 9000.0800 ####[facility] [address] [place], [address] PO2 67 mmHG Low 75-100 [facility] Comment on above: Order Comment: WAS O RIGINALLY ENTERED VENOUS BUT IS ARTERIAL. CANCELLEDTHOSE RESULTS THEN MANUALLY ENTERED.Results manually entered by WBATDORF [employer] and verified byJTHEOBALD [employer]MINIST[employer] Performed By: #### L 9000.0800 ####[facility] [address] [place], [address] SO2 91 Low 95-99 [facility] Comment on above: Order Comment: WAS O RIGINALLY ENTERED VENOUS BUT IS ARTERIAL. CANCELLEDTHOSE RESULTS THEN MANUALLY ENTERED.Results manually entered by WB[employer]F [employer] and verified byJTHEOBALD [employer]IST[employer] Performed By: #### L 9000.0800 ####[facility] [address] [place], [address] FI02 50.0 Normal [facility] Comment on above: Order Comment: WAS O RIGINALLY ENTERED VENOUS BUT IS ARTERIAL. CANCELLEDTHOSE RESULTS THEN MANUALLY ENTERED.Results manually entered by WBATDO [employer] and verified byJTHEOBALD [employer]MINIST[employer] Performed By: #### L 9000.0800 ####[facility] [address] [place], [address] PEEP 5 Normal [facility] Comment on above: Order Comment: WAS O RIGINALLY ENTERED VENOUS BUT IS ARTERIAL. CANCELLEDTHOSE RESULTS THEN MANUALLY ENTERED.Results manually entered by WB[employer]F [employer] and verified byJTHEOBALD [employer]MINIST[employer] Performed By: #### L 9000.0800 ####[facility] [address] [place], [address] RR 12 Normal [facility] Comment on above: Order Comment: WAS O RIGINALLY ENTERED VENOUS BUT IS ARTERIAL. CANCELLEDTHOSE RESULTS THEN MANUALLY ENTERED.Results manually entered by WB[employer]F [employer] and verified byJTHEOBALD ADMINIST[employer] Performed By: #### L 9000.0800 ####[facility] [address] [place], [address] DANY TEST Positive Normal [facility] Comment on above: Order Comment: WAS O RIGINALLY ENTERED VENOUS BUT IS ARTERIAL. CANCELLEDTHOSE RESULTS THEN MANUALLY ENTERED.Results manually entered by WBATDORF [employer] and verified byJTHEOBALD [employer]IST[employer] Performed By: #### L 9000.0800 ####[facility] [address] [place], [address] Mode A-C Normal [facility] Comment on above: Order Comment: WAS O RIGINALLY ENTERED VENOUS BUT IS ARTERIAL. CANCELLEDTHOSE RESULTS THEN MANUALLY ENTERED.Results manually entered by WBATDO [employer] and verified byJTHEOBALD ADMINIST[employer] Performed By: #### L 9000.0800 ####[facility] [address] [place], [address] O2 Delivery Dev Vent Normal [facility] Comment on above: Order Comment: WAS O RIGINALLY ENTERED VENOUS BUT IS ARTERIAL. CANCELLEDTHOSE RESULTS THEN MANUALLY ENTERED.Results manually entered by ATDORF [employer] and verified byJTHEOBALD [employer]MINIST[employer] Performed By: #### L 9000.0800 ####[facility] [address] [place], [address] SITE L RADIAL Normal [facility] Comment on above: Order Comment: WAS O RIGINALLY ENTERED VENOUS BUT IS ARTERIAL. CANCELLEDTHOSE RESULTS THEN MANUALLY ENTERED.Results manually entered by ATDORF ADMINISTRATOR SOCIAL WELFARE and verified byJTHEOBALD ADMINISTRATOR SOCIAL WELFARE Performed By: #### L 9000.0800 ####[facility] [address] [place], [address] Vt 500.0 mL [facility] Comment on above: Order Comment: WAS O RIGINALLY ENTERED VENOUS BUT IS ARTERIAL. CANCELLEDTHOSE RESULTS THEN MANUALLY ENTERED.Results manually entered by WBATDORF ADMINISTRATOR SOCIAL WELFARE and verified byJTHEOBALD ADMINISTRATOR SOCIAL WELFARE Performed By: #### L 9000.0800 ####[facility] [address] [place], [address] Blood Gas Type ART Normal [facility] Comment on above: Order Comment: WAS O RIGINALLY ENTERED VENOUS BUT IS ARTERIAL. CANCELLEDTHOSE RESULTS THEN MANUALLY ENTERED.Results manually entered by ANGEL ADMINISTRATOR SOCIAL WELFARE and verified byGARRY ADMINISTRATOR SOCIAL WELFARE Performed By: #### L 9000.0800 ####[facility] [address] [place], [address] DANY TEST Positive Normal [facility] Comment on above: Performed By: #### L 9000.0800 ####[facility] [address] [place], [address] Base excess Calc (Bld) [Moles/Vol] -2 mmol/L Normal -2 to +2 [facility] Comment on above: Performed By: #### L 9000.0800 ####[facility] [address] [place], [address] Blood Gas Type ART Normal [facility] Comment on above: Performed By: #### L 9000.0800 ####[facility] [address] [place], [address] CO2 [Moles/Vol] 24 mmol/L Normal [facility] Comment on above: Performed By: #### L 9000.0800 ####[facility] [address] [place], [address] FI02 30.0 Normal [facility] Comment on above: Performed By: #### L 9000.0800 ####[facility] [address] [place], [address] HCO3 (Bld) [Moles/Vol] 23.2 mmol/L Normal 22-26 [facility] Comment on above: Performed By: #### L 9000.0800 ####[facility] [address] [place], [address] Mode AC Normal [facility] Comment on above: Performed By: #### L 9000.0800 ####[facility] [address] [place], [address] O2 Delivery Dev Adult Vent Normal [facility] Comment on above: Performed By: #### L 0.0800 ####[facility] [address] [place], [address] pCO2 40.5 mmHg Normal 35-45 [facility] Comment on above: Performed By: #### L 0.0800 ####[facility] [address] [place], [address] PEEP 5 Normal [facility] Comment on above: Performed By: #### L 0.0800 ####[facility] [address] [place], [address] pH (Bld) 7.37 [pH] Normal 7.35-7.45 [facility] Comment on above: Performed By: #### L 0.0800 ####[facility] [address] [place], [address] PO2 60 mmHG Low 75-100 [facility] Comment on above: Performed By: #### L 0.0800 ####[facility] [address] [place], [address] RR 12 Normal [facility] Comment on above: Performed By: #### L 8999.0800 ####[facility] [address] [place], [address] SITE L Radial Normal [facility] Comment on above: Performed By: #### L 8999.0800 ####[facility] [address] [place], [address] SO2 90 Low 95-99 [facility] Comment on above: Performed By: #### L 0.0800 ####[facility] [address] [place], [address] Vt 500.0 mL Normal [facility] Comment on above: Performed By: #### L 9000.0800 ####[facility] [address] [place], [address] Blood bicarbonate measuremen tOrdered By: Tricia Taylor on 09-28-2024 Blood Gas Bicarbonate Actual 23.2 mmol/L [facility] CBC W/Diff, Automatedon 09-04 Absolute Lymph 0.69 X10 3/uL Low 0.83-4.51 [facility] Comment on above: Performed By: #### L 500.2500, L100.0100 ####[facility] [address] [place], [address] Absolute Neut 10.6 X10 3/uL High 2.0-7.7 [facility] Comment on above: Performed By: #### L 500.2500, L100.0100 ####[facility] [address] [place], [address] Basophils/100 WBC (Bld) 0.2 % Normal 0-1 [facility] Comment on above: Performed By: #### L 500.2500, L100.0100 ####[facility] [address] [place], [address] Eosinophils/100 WBC (Bld) 0.0 % Normal 0-5 [facility] Comment on above: Performed By: #### L 500.2500, L100.0100 ####[facility] [address] [place], [address] Erythrocyte distribution width (RBC) [Ratio] 12.4 % Normal 11.6-14.6 [facility] Comment on above: Performed By: #### L 500.2500, L100.0100 ####[facility] [address] [place], [address] Hematocrit (Bld) [Volume fraction] 38.8 % Low 40-54 [facility] Comment on above: Performed By: #### L 500.2500, L100.0100 ####[facility] [address] [place], [address] Hemoglobin (Bld) [Mass/Vol] 13.0 g/dL Normal 13.0-16.5 [facility] Comment on above: Performed By: #### L 500.2500, L100.0100 ####[facility] [address] [place], [address] IG% 0.500 Normal 0.0-0.9 [facility] Comment on above: Result Comment: IG% - Immature Granulocytes (promyelocytes, myelocytes andmetamyelocytes) > 1% indicates that a LEFT SHIFT is Present. Performed By: #### L 500.2500, L100.0100 ####[facility] [address] [place], [address] Lymphocytes/100 WBC (Bld) 5.7 % Low 19-41 [facility] Comment on above: Performed By: #### L 500.2500, L100.0100 ####[facility] [address] [place], [address] MCH (RBC) [Entitic mass] 32.8 pg High 27.0-32.0 [facility] Comment on above: Performed By: #### L 500.2500, L100.0100 ####[facility] [address] [place], [address] MCHC (RBC) [Mass/Vol] 33.5 g/dL Normal 32-36 [facility] Comment on above: Performed By: #### L 500.2500, L100.0100 ####[facility] [address] [place], [address] MCV (RBC) [Entitic vol] 98.0 fL High 80-94 [facility] Comment on above: Performed By: #### L 500.2500, L100.0100 ####[facility] [address] [place], [address] Monocytes/100 WBC (Bld) 6.3 % Normal 0-10 [facility] Comment on above: Performed By: #### L 500.2500, L100.0100 ####[facility] [address] [place], [address] Neutrophils/100 WBC (Bld) 87.3 % High 47-70 [facility] Comment on above: Performed By: #### L 500.2500, L100.0100 ####[facility] [address] [place], [address] Nucleated RBC (Bld) [#/Vol] 0 10*3/uL Normal 0-5 [facility] Comment on above: Performed By: #### L 500.2500, L100.0100 ####[facility] [address] [place], [address] Platelet mean volume (Bld) [Entitic vol] 10.0 fL Normal 6.2-12.0 [facility] Comment on above: Performed By: #### L 500.2500, L100.0100 ####[facility] [address] [place], [address] Platelets (Bld) [#/Vol] 158 10*3/uL Normal 150-450 [facility] Comment on above: Performed By: #### L 500.2500, L100.0100 ####[facility] [address] [place], [address] RBC (Bld) [#/Vol] 3.96 10*6/uL Low 4.6-6.2 [facility] Comment on above: Performed By: #### L 500.2500, L100.0100 ####[facility] [address] [place], [address] RDW SD 44.9 fl High 35.1-43.9 [facility] Comment on above: Performed By: #### L 500.2500, L100.0100 ####[facility] [address] [place], [address] WBC (Bld) [#/Vol] 12.1 10*3/uL High 4.4-11.0 [facility] Comment on above: Performed By: #### L 500.2500, L100.0100 ####[facility] [address] [place], [address] CPK Total, Creatine Kinaseon 09-28-2024 CPK TOTAL 197 U/L High 24-195 [facility] Comment on above: Order Comment: Comme nts: DC when propofol is d/c'd Performed By: #### L 501.3620, L501.5000 ####[facility] [address], [address] Determination of fraction of inspired oxygenOrdered By: Tricia Taylor on 09-28-2024 Blood Gas Oxygen Percent 30.0 [facility] No Panel InformationOrdered By: Tricia Taylor on 09-28-2024 Bedside Blood Gas PEEP 5 [facility] Blood Gas Respiration Rate 12 [facility] Blood Gas Sample Site L Radial [facility] Blood Gas Specimen Type ART [facility] Blood Gas Tidal Volume 500.0 mL [facility] Blood Gas Vent Mode AC [facility] Oxygen Delivery Device Adult Vent [facility] Oxygen saturation measuremen tOrdered By: Tricia Taylor on 09-28-2024 Blood Gas Oxygen Saturation 90 % Low 95-99 [facility] Partial pressure of carbon d ioxide measurementOrdered By: Tricia Taylor on 09-28-2024 Arterial Blood Partial Pressure CO2 40.5 mmHg 35-45 [facility] Partial pressure of oxygen m easurementOrdered By: Tricia Taylor on 09-28-2024 Arterial Blood Partial Pressure O2 60 mmHG Low 75-100 [facility] Serum or plasma creatine kin ase activityOrdered By: Chirs Mascorro on 09-28-2024 CK [Catalytic activity/Vol] 197 U/L High 24-195 [facility] Total carbon dioxide measure mentOrdered By: Tricia Taylor on 09-28-2024 Blood Gas Total CO2 24 mmol/L [facility] Triglycerideson 09-28-2024 Triglyceride [Mass/Vol] 321 mg/dL High [facility] Comment on above: Order Comment: Comme nts: DC when propofol is d/c'dDC when propofol is d/c'd Result Comment: The drugs N-Acetylcysteine and Metamizole may falselydepress this assay.Normal range: <150 mg/dLBorderline High: 150-199 mg/dLHigh: 200-499 mg/dLVery High: >500 mg/dL Performed By: #### L 501.3620, L501.5000 ####[facility] [address] [place], [address] Triglycerides measurementOrd ered By: Chris Mascorro on 09-28-2024 Triglyceride [Mass/Vol] 321 mg/dL High <199 [facility] Comment on above: The drugs N-Acetylcy steine and Metamizole may falsely depress this assay. Normal range: <150 mg/dLBorderline High: 150-199 mg/dLHigh: 200-499 mg/dLVery High: >500 mg/dL Venous Blood Gason Blood Gas Type ART Normal [facility] Comment on above: Order Comment: Arter ial blood gas was entered as a venous blood gas.Results manually entered by BALA ADMINISTRATOR SOCIAL WELFARE AND VERIFIED BYANGEL ADMINISTRATOR SOCIAL WELFARE ON 09/28/2024 AT 0645. Result Comment: Pratima rial blood gas was entered as a venous blood gas. AMENDED REPORT 09/28/24 0639 BLD GAS TYPE previously reported as: VENblood gas. Performed By: #### L 9000.0810 ####[facility] [address] [place], [place], [address] pH (Unsp spec)Ordered By: John Taylor on 09-28-2024 Blood Gas pH 7.37 7.35-7.45 [facility] Blood Gases by CPSon 025 Base excess Calc (Bld) [Moles/Vol] -2 mmol/L Normal -2 to +2 [facility] Comment on above: Performed By: #### L 8999.0800 ####[facility] [address] [place], [address] Blood Gas Type ART Normal [facility] Comment on above: Performed By: #### L 8999.0800 ####[facility] [address] [place], [address] CO2 [Moles/Vol] 25 mmol/L Normal [facility] Comment on above: Performed By: #### L 8999.0800 ####[facility] [address] [place], [address] FI02 50.0 Normal [facility] Comment on above: Performed By: #### L 8999.0800 ####[facility] [address] [place], [address] HCO3 (Bld) [Moles/Vol] 23.9 mmol/L Normal 22-26 [facility] Comment on above: Performed By: #### L 8999.0800 ####[facility] [address] [place], [address] Mode Not entered Normal [facility] Comment on above: Performed By: #### L 8999.0800 ####[facility] [address] [place], [address] O2 Delivery Dev Venti Mask Normal [facility] Comment on above: Performed By: #### L 8999.0800 ####[facility] [address] [place], [address] pCO2 41.9 mmHg Normal 35-45 [facility] Comment on above: Performed By: #### L 8999.0800 ####[facility] [address] [place], [address] pH (Bld) 7.36 [pH] Normal 7.35-7.45 [facility] Comment on above: Performed By: #### L 9000.0800 ####[facility] [address] [place], [address] PO2 70 mmHG Low 75-100 [facility] Comment on above: Performed By: #### L 9000.0800 ####[facility] [address] [place], [address] SITE R Brach Normal [facility] Comment on above: Performed By: #### L 9000.0800 ####[facility] [address] [place], [address] SO2 93 Low 95-99 [facility] Comment on above: Performed By: #### L 9000.0800 ####[facility] [address] [place], [address] CBC W/Diff, Automatedon 02-2 5-2024 Absolute Lymph 0.80 X10 3/uL Low 0.83-4.51 [facility] Comment on above: Performed By: #### L 100.0100 ####[facility] [address] [place], [address] Absolute Neut 7.2 X10 3/uL Normal 2.0-7.7 [facility] Comment on above: Performed By: #### L 100.0100 ####[facility] [address] [place], [address] Basophils/100 WBC (Bld) 0.5 % Normal 0-1 [facility] Comment on above: Performed By: #### L 100.0100 ####[facility] [address] [place], [address] Eosinophils/100 WBC (Bld) 0.5 % Normal 0-5 [facility] Comment on above: Performed By: #### L 100.0100 ####[facility] [address] [place], [address] Erythrocyte distribution width (RBC) [Ratio] 12.4 % Normal 11.6-14.6 [facility] Comment on above: Performed By: #### L 100.0100 ####[facility] [address] [place], [address] Hematocrit (Bld) [Volume fraction] 42.8 % Normal 40-54 [facility] Comment on above: Performed By: #### L 100.0100 ####[facility] [address] [place], [address] Hemoglobin (Bld) [Mass/Vol] 14.4 g/dL Normal 13.0-16.5 [facility] Comment on above: Performed By: #### L 100.0100 ####[facility] [address] [place], [address] IG% 0.500 Normal 0.0-0.9 [facility] Comment on above: Result Comment: IG% - Immature Granulocytes (promyelocytes, myelocytes andmetamyelocytes) > 1% indicates that a LEFT SHIFT is Present. Performed By: #### L 100.0100 ####[facility] [address] [place], [address] Lymphocytes/100 WBC (Bld) 9.2 % Low 19-41 [facility] Comment on above: Performed By: #### L 100.0100 ####[facility] [address] [place], [address] MCH (RBC) [Entitic mass] 32.4 pg High 27.0-32.0 [facility] Comment on above: Performed By: #### L 100.0100 ####[facility] [address] [place], [address] MCHC (RBC) [Mass/Vol] 33.6 g/dL Normal 32-36 [facility] Comment on above: Performed By: #### L 100.0100 ####[facility] [address] [place], [address] MCV (RBC) [Entitic vol] 96.2 fL High 80-94 [facility] Comment on above: Performed By: #### L 100.0100 ####[facility] [address] [place], [address] Monocytes/100 WBC (Bld) 5.7 % Normal 0-10 [facility] Comment on above: Performed By: #### L 100.0100 ####[facility] [address] [place], [address] Neutrophils/100 WBC (Bld) 83.6 % High 47-70 [facility] Comment on above: Performed By: #### L 100.0100 ####[facility] [address] [place], [address] Nucleated RBC (Bld) [#/Vol] 0 10*3/uL Normal 0-5 [facility] Comment on above: Performed By: #### L 100.0100 ####[facility] [address] [place], [address] Platelet mean volume (Bld) [Entitic vol] 9.9 fL Normal 6.2-12.0 [facility] Comment on above: Performed By: #### L 100.0100 ####[facility] [address] [place], [address] Platelets (Bld) [#/Vol] 175 10*3/uL Normal 150-450 [facility] Comment on above: Performed By: #### L 100.0100 ####[facility] [address] [place], [address] RBC (Bld) [#/Vol] 4.45 10*6/uL Low 4.6-6.2 [facility] Comment on above: Performed By: #### L 100.0100 ####[facility] [address] [place], [address] RDW SD 43.9 fl Normal 35.1-43.9 [facility] Comment on above: Performed By: #### L 100.0100 ####[facility] [address] [place], [address] WBC (Bld) [#/Vol] 8.7 10*3/uL Normal 4.4-11.0 [facility] Comment on above: Performed By: #### L 100.0100 ####[facility] [address] 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 Normal [facility] Hip 1 view with Pelvison Hip 1 view with Pelvis Normal [facility] Hip Min 2 Views (Portable)on 09-27-2024 Hip Min 2 Views (Portable) Normal [facility] Operative Reporton 5 Operative Report Normal [facility] Soft Tissue Neck without Con mike 09-27-2024 Soft Tissue Neck without Contr Normal [facility] Type AND Screenon 09-27-2024 Ab SCREEN GEL Negative Normal [facility] Comment on above: Order Comment: S Performed By: #### B TS ####[facility] [address] [place], [address] Venous Blood Gason 5 CO2 [Moles/Vol] 25 mmol/L Normal 23-33 [facility] Comment on above: Order Comment: Arter ial blood gas was entered as a venous blood gas.Results manually entered by ИРИНАDEFEMI ADMINISTRATOR SOCIAL WELFARE AND VERIFIED BYANGEL ADMINISTRATOR SOCIAL WELFARE ON 09/28/2024 AT 0645. Result Comment: Pratima rial blood gas was entered as a venous blood gas. Performed By: #### L 9000.0810 ####[facility] [address] [place], [place], [address] FI02 50.0 Normal [facility] Comment on above: Order Comment: Arter ial blood gas was entered as a venous blood gas.Results manually entered by DJOHNSON ADMINISTRATOR SOCIAL WELFARE AND VERIFIED BYWBATRF ADMINISTRATOR SOCIAL WELFARE ON 09/28/2024 AT 0645. Result Comment: Pratima rial blood gas was entered as a venous blood gas. Performed By: #### L 9000.0810 ####[facility] [address] [place], [address] HCO3 (Bld) [Moles/Vol] 24 mmol/L Normal -26 [facility] Comment on above: Order Comment: Arter ial blood gas was entered as a venous blood gas.Results manually entered by DJOHNSON ADMINISTRATOR SOCIAL WELFARE AND VERIFIED BYWBATDO ADMINISTRATOR SOCIAL WELFARE ON 09/28/2024 AT 0645. Result Comment: Pratima rial blood gas was entered as a venous blood gas. Performed By: #### L 9000.0810 ####[facility] [address] [place], [address] O2 Delivery Dev Adult Vent Normal [facility] Comment on above: Order Comment: Arter ial blood gas was entered as a venous blood gas.Results manually entered by DJDENSON ADMINISTRATOR SOCIAL WELFARE AND VERIFIED [facility]WBATBR[facility]WO[facility] ADMINISTRATOR SOCIAL WELFARE ON 09/28/2024 AT 0645. Result Comment: Pratima rial blood gas was entered as a venous blood gas. Performed By: #### L 9000.0810 ####[facility] [address] [place], [place], [id number] PEEP 5 [facility] Comment on above: Order Comment: Arter ial blood gas was entered as a venous blood gas.Results manually entered by DJOHNSON ADMINISTRATOR SOCIAL WELFARE AND VERIFIED BYWBATDORF ADMINISTRATOR SOCIAL WELFARE ON 09/28/2024 AT 0645. Result Comment: Pratima rial blood gas was entered as a venous blood gas. Performed By: #### L 9000.0810 ####[facility] [address] [place], [address] RR 12 Normal [facility] Comment on above: Order Comment: Arter ial blood gas was entered as a venous blood gas.Results manually entered by [facility] ADMINISTRATOR SOCIAL WELFARE AND VERIFIED BYWBATBRENTWOOD [facility] ADMINISTRATOR SOCIAL WELFARE ON 09/28/2024 AT 0645. Result Comment: Pratima rial blood gas was entered as a venous blood gas. Performed By: #### L 9000.0810 ####[facility] [address] [place], [place], [address] SITE L Radial Normal [facility] Comment on above: Order Comment: Arter ial blood gas was entered as a venous blood gas.Results manually entered by [facility] ADMINISTRATOR SOCIAL WELFARE AND VERIFIED [facility] ADMINISTRATOR SOCIAL WELFARE ON 09/28/2024 AT 0645. Result Comment: Pratima rial blood gas was entered as a venous blood gas. Performed By: #### L 9000.0810 ####[facility] [address] [place], [place], [id number] VBG BE -3 mmol/L Low -1.0-3.5 [facility] Comment on above: Order Comment: Arter ial blood gas was entered as a venous blood gas.Results manually entered by [facility] ADMINISTRATOR SOCIAL WELFARE AND VERIFIED BYWBAO[facility] ADMINISTRATOR SOCIAL WELFARE ON 09/28/2024 AT 0645. Result Comment: Pratima rial blood gas was entered as a venous blood gas. Performed By: #### L 9000.0810 ####[facility] [address] [place], [place], [id number] VBG pCO2 48.7 mmHg Normal 41-51 [facility] Comment on above: Order Comment: Arter ial blood gas was entered as a venous blood gas.Results [facility] AND [facility] ON 09/28/2024 AT 0645. Result Comment: Pratima rial blood gas was entered as a venous blood gas. Performed By: #### L 9000.0810 ####[facility] [address] [place], [place], [id number] VBG pH 7.29 Low 7.32-7.42 [facility] Comment on above: Order Comment: Arter ial blood gas was entered as a venous blood gas.Results manually entered by [facility] AND [facility] WELFARE ON 09/28/2024 AT 0645. Result Comment: Pratima rial blood gas was entered as a venous blood gas. Performed By: #### L 9000.0810 ####[facility] [address] [place], [place], [id number] VBG PO2 67 mmHg High 25-40 [facility] Comment on above: Order Comment: Arter ial blood gas was entered as a venous blood gas.Results manually [facility] SOC[facility] WELFARE AND [facility] WELFARE ON 09/28/2024 AT 0645. Result Comment: Pratima rial blood gas was entered as a venous blood gas. Performed By: #### L 9000.0810 ####[facility] [address] [place], [address] VBG SO2 91 High 50-70 [facility] Comment on above: Order Comment: Arter ial blood gas was entered as a venous blood gas.Results manually entered by [facility] ADMINISTRATOR SOCIAL WELFARE AND [facility] WELFARE ON 09/28/2024 AT 0645. Result Comment: Pratima rial blood gas was entered as a venous blood gas. Performed By: #### L 9000.0810 ####[facility] [address] [place], [place], [id number] Vt 500.0 mL Normal [facility] Comment on above: Order Comment: Arter ial blood gas was entered as a venous blood gas.Results manually entered by [facility] WELFARE AND [facility]IAL WELFARE ON 09/28/2024 AT 0645. Result Comment: Pratima rial blood gas was entered as a venous blood gas. Performed By: #### L 9000.0810 ####[facility] [address] [place], [address] 12 Lead EKGon 09-26-2024 12 Lead EKG Normal [facility] 03-SE-Iehpvzz DOrdered By: Natalie Luther on 09-26-2024 Vitamin D 25-Hydroxy 25.4 ng/mL [facility] Comment on above: Vitamin D 25(OH) Sta tus Range Deficiency <20 ng/mL (50nmol/L) Insufficiency 20 - 30 ng/mL (50 - 75 nmol/L) Sufficiency 30 - 100 ng/mL (75 - 250 nmol/L) Toxicity >100 ng/mL (>250 nmol/L) Albumin to globulin ratioOrd ered By: Jean Claude Luther on 09-26-2024 Albumin/Globulin [Mass ratio] 1.1 {ratio} 0.9-2.4 [facility] Basic Metabolic Profile (BMP )on 09-26-2024 BUN/CRE 17.2 RATIO Normal 10-20 [facility] Comment on above: Performed By: #### L 100.0100, L500.2500 ####[facility] [address] [place], [address] CA,Total 8.9 mg/dL Normal 8.5-10.1 [facility] Comment on above: Performed By: #### L 100.0100, L500.2500 ####[facility] [address] [place], [address] Chloride [Moles/Vol] 107 mmol/L Normal 98-107 [facility] Comment on above: Performed By: #### L 100.0100, L500.2500 ####[facility] [address] [place], [address] CO2 [Moles/Vol] 27.0 mmol/L Normal 21.0-32.0 [facility] Comment on above: Performed By: #### L 100.0100, L500.2500 ####[facility] [address] [place], [address] Creatinine [Mass/Vol] 0.76 mg/dL Normal 0.70-1.30 [facility] Comment on above: Result Comment: The validity of the calculated GFR GFRAA in patients over70 years has not been determined. Clinical correlation isessential. Performed By: #### L 100.0100, L500.2500 ####[facility] [address] [place], [address] ECRCL 125.10 ml/min Normal [facility] Comment on above: Performed By: #### L 100.0100, L500.2500 ####[facility] [address] [place], [address] EST GFR - AA 133 mL/min Normal >60 [facility] Comment on above: Result Comment: Afri can Swedish GFR Calc Performed By: #### L 100.0100, L500.2500 ####[facility] [address] [place], [address] GAP 5 Normal 5-15 [facility] Comment on above: Performed By: #### L 100.0100, L500.2500 ####[facility] [address] [place], [address] GFR/1.73 sq M.predicted among non-blacks MDRD (S/P/Bld) [Vol rate/Area] 110 mL/min/{1.73_m2} Normal >60 [facility] Comment on above: Result Comment: Non- GFR Calc Performed By: #### L 100.0100, L500.2500 ####[facility] [address] [place], [address] Glucose [Mass/Vol] 111 mg/dL High 74-106 [facility] Comment on above: Result Comment: Fast ing Glucose result from 100 to 125 mg/dLsuggests IMPAIRED HOMEOSTASIS per A.D.A. criteria. Performed By: #### L 100.0100, L500.2500 ####[facility] [address] [place], [address] Potassium [Moles/Vol] 4.2 mmol/L Normal 3.5-5.1 [facility] Comment on above: Performed By: #### L 100.0100, L500.2500 ####[facility] [address] [place], [address] Sodium [Moles/Vol] 139 mmol/L Normal 136-145 [facility] Comment on above: Performed By: #### L 100.0100, L500.2500 ####[facility] [address] [place], [address] Urea nitrogen [Mass/Vol] 13 mg/dL Normal 7-18 [facility] Comment on above: Performed By: #### L 100.0100, L500.2500 ####[facility] [address] [place], [address] Bilirubin, totalOrdered By: Jean Claude Luther on 09-26-2024 Bilirubin [Mass/Vol] 0.50 mg/dL 0.20-1.00 [facility] Comment on above: For patients on eltr ombopag therapy, use of Dimension [place] TBIL is not recommended. CBC W/Diff, Automatedon 09-04 Absolute Lymph 2.67 X10 3/uL Normal 0.83-4.51 [facility] Comment on above: Performed By: #### L 100.0100, L500.2500 ####[facility] [address] [place], [address] Absolute Neut 3.3 X10 3/uL Normal 2.0-7.7 [facility] Comment on above: Performed By: #### L 100.0100, L500.2500 ####[facility] [address] [place], [address] Basophils/100 WBC (Bld) 1.3 % High 0-1 [facility] Comment on above: Performed By: #### L 100.0100, L500.2500 ####[facility] [address] [place], [address] Eosinophils/100 WBC (Bld) 1.9 % Normal 0-5 [facility] Comment on above: Performed By: #### L 100.0100, L500.2500 ####[facility] [address] [place], [address] Erythrocyte distribution width (RBC) [Ratio] 12.1 % Normal 11.6-14.6 [facility] Comment on above: Performed By: #### L 100.0100, L500.2500 ####[facility] [address] [place], [address] Hematocrit (Bld) [Volume fraction] 43.3 % Normal 40-54 [facility] Comment on above: Performed By: #### L 100.0100, L500.2500 ####[facility] [address] [place], [address] Hemoglobin (Bld) [Mass/Vol] 14.9 g/dL Normal 13.0-16.5 [facility] Comment on above: Performed By: #### L 100.0100, L500.2500 ####[facility] [address] [place], [address] IG% 0.300 Normal 0.0-0.9 [facility] Comment on above: Result Comment: IG% - Immature Granulocytes (promyelocytes, myelocytes andmetamyelocytes) > 1% indicates that a LEFT SHIFT is Present. Performed By: #### L 100.0100, L500.2500 ####[facility] [address] [place], [address] Lymphocytes/100 WBC (Bld) 39.1 % Normal 19-41 [facility] Comment on above: Performed By: #### L 100.0100, L500.2500 ####[facility] [address] [place], [address] MCH (RBC) [Entitic mass] 32.7 pg High 27.0-32.0 [facility] Comment on above: Performed By: #### L 100.0100, L500.2500 ####[facility] [address] [place], [address] MCHC (RBC) [Mass/Vol] 34.4 g/dL Normal 32-36 [facility] Comment on above: Performed By: #### L 100.0100, L500.2500 ####[facility] [address] [place], [address] MCV (RBC) [Entitic vol] 95.0 fL High 80-94 [facility] Comment on above: Performed By: #### L 100.0100, L500.2500 ####[facility] [address] [place], [address] Monocytes/100 WBC (Bld) 8.9 % Normal 0-10 [facility] Comment on above: Performed By: #### L 100.0100, L500.2500 ####[facility] [address] [place], [address] Neutrophils/100 WBC (Bld) 48.5 % Normal 47-70 [facility] Comment on above: Performed By: #### L 100.0100, L500.2500 ####[facility] [address] [place], [address] Nucleated RBC (Bld) [#/Vol] 0 10*3/uL Normal 0-5 [facility] Comment on above: Performed By: #### L 100.0100, L500.2500 ####[facility] [address] [place], [address] Platelet mean volume (Bld) [Entitic vol] 9.6 fL Normal 6.2-12.0 [facility] Comment on above: Performed By: #### L 100.0100, L500.2500 ####[facility] [address] [place], [address] Platelets (Bld) [#/Vol] 223 10*3/uL Normal 150-450 [facility] Comment on above: Performed By: #### L 100.0100, L500.2500 ####[facility] [address] [place], [address] RBC (Bld) [#/Vol] 4.56 10*6/uL Low 4.6-6.2 [facility] Comment on above: Performed By: #### L 100.0100, L500.2500 ####[facility] [address] [place], [address] RDW SD 42.5 fl Normal 35.1-43.9 [facility] Comment on above: Performed By: #### L 100.0100, L500.2500 ####[facility] [address] [place], [address] WBC (Bld) [#/Vol] 6.8 10*3/uL Normal 4.4-11.0 [facility] Comment on above: Performed By: #### L 100.0100, L500.2500 ####[facility] [address] [place], [address] Chest 1 Viewon 09-26-2024 Chest 1 View Normal [facility] Comprehensive Metabolic Prof ilon 09-26-2024 Albumin [Mass/Vol] 3.6 g/dL Normal 3.2-5.0 [facility] Comment on above: Performed By: #### L 500.4050, L506.1000 ####[facility] [address] [place], [address] Albumin/Globulin [Mass ratio] 1.1 {ratio} Normal 0.9-2.4 [facility] Comment on above: Performed By: #### L 500.4050, L506.1000 ####[facility] [address] [place], [address] ALK P 67 U/L Normal 45-117 [facility] Comment on above: Performed By: #### L 500.4050, L506.1000 ####[facility] [address] [place], [address] ALT [Catalytic activity/Vol] 20 U/L Normal 16-61 [facility] Comment on above: Performed By: #### L 500.4050, L506.1000 ####[facility] [address] [place], [address] AST [Catalytic activity/Vol] 17 U/L Normal 15-37 [facility] Comment on above: Performed By: #### L 500.4050, L506.1000 ####[facility] [address] [place], [address] Bilirubin [Mass/Vol] 0.50 mg/dL Normal 0.20-1.00 [facility] Comment on above: Result Comment: For patients on eltrombopag therapy, use of Dimension [place] TBIL is not recommended. Performed By: #### L 500.4050, L506.1000 ####[facility] [address] [place], [address] BUN/CRE 17.1 RATIO Normal 10-20 [facility] Comment on above: Performed By: #### L 500.4050, L506.1000 ####[facility] [address] [place], [address] CA,Total 8.8 mg/dL Normal 8.5-10.1 [facility] Comment on above: Performed By: #### L 500.4050, L506.1000 ####[facility] [address] [place], [address] Chloride [Moles/Vol] 108 mmol/L High 98-107 [facility] Comment on above: Performed By: #### L 500.4050, L506.1000 ####[facility] [address] [place], [address] CO2 [Moles/Vol] 25.0 mmol/L Normal 21.0-32.0 [facility] Comment on above: Performed By: #### L 500.4050, L506.1000 ####[facility] [address] [place], [address] Creatinine [Mass/Vol] 0.82 mg/dL Normal 0.70-1.30 [facility] Comment on above: Result Comment: The validity of the calculated GFR GFRAA in patients over70 years has not been determined. Clinical correlation isessential. Performed By: #### L 500.4050, L506.1000 ####[facility] [address] [place], [address] ECRCL 110.26 ml/min Normal [facility] Comment on above: Performed By: #### L 500.4050, L506.1000 ####[facility] [address] [place], [address] EST GFR - AA 121 mL/min Normal >60 [facility] Comment on above: Result Comment: Afri can Swedish GFR Calc Performed By: #### L 500.4050, L506.1000 ####[facility] [address] [place], [address] GAP 7 Normal 5-15 [facility] Comment on above: Performed By: #### L 500.4050, L506.1000 ####[facility] [address] [place], [address] GFR/1.73 sq M.predicted among non-blacks MDRD (S/P/Bld) [Vol rate/Area] 100 mL/min/{1.73_m2} Normal >60 [facility] Comment on above: Result Comment: Non- GFR Calc Performed By: #### L 500.4050, L506.1000 ####[facility] [address] [place], [address] Globulin (S) [Mass/Vol] 3.3 g/dL Normal 2.2-4.2 [facility] Comment on above: Performed By: #### L 500.4050, L506.1000 ####[facility] [address] [place], [address] Glucose [Mass/Vol] 117 mg/dL High 74-106 [facility] Comment on above: Result Comment: Fast ing Glucose result from 100 to 125 mg/dLsuggests IMPAIRED HOMEOSTASIS per A.D.A. criteria. Performed By: #### L 500.4050, L506.1000 ####[facility] [address] [place], [address] Potassium [Moles/Vol] 4.4 mmol/L Normal 3.5-5.1 [facility] Comment on above: Performed By: #### L 500.4050, L506.1000 ####[facility] [address] [place], [address] Sodium [Moles/Vol] 140 mmol/L Normal 136-145 [facility] Comment on above: Performed By: #### L 500.4050, L506.1000 ####[facility] [address] [place], [address] T PROT 6.9 g/dL Normal 6.4-8.2 [facility] Comment on above: Performed By: #### L 500.4050, L506.1000 ####[facility] [address] [place], [address] Urea nitrogen [Mass/Vol] 14 mg/dL Normal 7-18 [facility] Comment on above: Performed By: #### L 500.4050, L506.1000 ####[facility] [address] [place], [address] Emergency Department Summary on 09-26-2024 Emergency Department Summary Normal [facility] Estimated glomerular filtrat ion rate (GFR) AmericanOrdered By: Jean Claude Luther on 09-26-2024 Estimated GFR (MDRD) Amer 121 mL/min >60 [facility] Comment on above: GFR Calc Femur Min 2 Viewson 09-26-19 25 Femur Min 2 Views Normal [facility] H AND P Exam - Hospitaliston 09-26-2024 H&P Exam - Hospitalist Normal [facility] - Chemistry and C hemistry - challengeOrdered By: Jean Claude Luther on 09-26-2024 AST [Catalytic activity/Vol] 17 U/L 15-37 [facility] Pelvis 1 or 2 Viewson 2024 Pelvis 1 or 2 Views Normal [facility] Serum globulin measurementOr dered By: Jean Claude Luther on 09-26-2024 Globulin (S) [Mass/Vol] 3.3 g/dL 2.2-4.2 [facility] Serum or plasma alanine valentin otransferase (ALT) measurementOrdered By: Jean Claude Luther on 09-26-2024 ALT [Catalytic activity/Vol] 20 U/L 16-61 [facility] Serum or plasma albumin jody urement (mass/volume)Ordered By: Jean Claude Luther on 09-26-2024 Albumin [Mass/Vol] 3.6 g/dL 3.2-5.0 [facility] Serum or plasma alkaline skip sphatase measurementOrdered By: Jean Claude Luther on 09-26-2024 ALP [Catalytic activity/Vol] 67 U/L 45-117 [facility] Total proteinOrdered By: Airam Luther on 09-26-2024 Protein [Mass/Vol] 6.9 g/dL 6.4-8.2 [facility] Vitamin D,25 Hydroxyon 09-26 Vitamin D 25-OH 25.4 ng/mL Normal [facility] Comment on above: Result Comment: Cecy min D 25(OH) Status Range Deficiency <20 ng/mL (50nmol/L) Insufficiency 20 - 30 ng/mL (50 - 75 nmol/L) Sufficiency 30 - 100 ng/mL (75 - 250 nmol/L) Toxicity >100 ng/mL (>250 nmol/L) Performed By: #### L 500.4050, L506.1000 ####[facility] [address] [place], [address] Internal Medicine Office Vis iton 08-15-2024 Internal Medicine Office Visit Normal [facility] 12 Lead EKGon 07-31-2024 12 Lead EKG Normal [facility] Basic Metabolic Profile (BMP )on 07-31-2024 BUN/CRE 12.3 RATIO Normal 10-20 [facility] Comment on above: Order Comment: 'TROP ' Serial specimen #1, #2 or #3: 1 Performed By: #### L 100.0500, L500.2500, L501.4020 ####[facility] [address] [place], [address] CA,Total 9.3 mg/dL Normal 8.5-10.1 [facility] Comment on above: Order Comment: 'TROP ' Serial specimen #1, #2 or #3: 1 Performed By: #### L 100.0500, L500.2500, L501.4020 ####[facility] [address] [place], [address] Chloride [Moles/Vol] 105 mmol/L Normal 98-107 [facility] Comment on above: Order Comment: 'TROP ' Serial specimen #1, #2 or #3: 1 Performed By: #### L 100.0500, L500.2500, L501.4020 ####[facility] [address] [place], [address] CO2 [Moles/Vol] 29.0 mmol/L Normal 21.0-32.0 [facility] Comment on above: Order Comment: 'TROP ' Serial specimen #1, #2 or #3: 1 Performed By: #### L 100.0500, L500.2500, L501.4020 ####[facility] [address] [place], [address] Creatinine [Mass/Vol] 0.73 mg/dL Normal 0.70-1.30 [facility] Comment on above: Order Comment: 'TROP ' Serial specimen #1, #2 or #3: 1 Result Comment: The validity of the calculated GFR GFRAA in patients over70 years has not been determined. Clinical correlation isessential. Performed By: #### L 100.0500, L500.2500, L501.4020 ####[facility] [address] [place], [address] ECRCL 125.51 ml/min Normal [facility] Comment on above: Order Comment: 'TROP ' Serial specimen #1, #2 or #3: 1 Performed By: #### L 100.0500, L500.2500, L501.4020 ####[facility] [address] [place], [address] EST GFR - AA 138 mL/min Normal >60 [facility] Comment on above: Order Comment: 'TROP ' Serial specimen #1, #2 or #3: 1 Result Comment: Afri can Swedish GFR Calc Performed By: #### L 100.0500, L500.2500, L501.4020 ####[facility] [address] [place], [address] GAP 5 Normal 5-15 [facility] Comment on above: Order Comment: 'TROP ' Serial specimen #1, #2 or #3: 1 Performed By: #### L 100.0500, L500.2500, L501.4020 ####[facility] [address] [place], [address] GFR/1.73 sq M.predicted among non-blacks MDRD (S/P/Bld) [Vol rate/Area] 114 mL/min/{1.73_m2} Normal >60 [facility] Comment on above: Order Comment: 'TROP ' Serial specimen #1, #2 or #3: 1 Result Comment: Non- GFR Calc Performed By: #### L 100.0500, L500.2500, L501.4020 ####[facility] [address] [place], [address] Glucose [Mass/Vol] 88 mg/dL Normal 74-106 [facility] Comment on above: Order Comment: 'TROP ' Serial specimen #1, #2 or #3: 1 Performed By: #### L 100.0500, L500.2500, L501.4020 ####[facility] [address] [place], [address] Potassium [Moles/Vol] 4.5 mmol/L Normal 3.5-5.1 [facility] Comment on above: Order Comment: 'TROP ' Serial specimen #1, #2 or #3: 1 Result Comment: Mode rate Hemolysis, Result may be falsely increased. Performed By: #### L 100.0500, L500.2500, L501.4020 ####[facility] [address] [place], [address] Sodium [Moles/Vol] 139 mmol/L Normal 136-145 [facility] Comment on above: Order Comment: 'TROP ' Serial specimen #1, #2 or #3: 1 Performed By: #### L 100.0500, L500.2500, L501.4020 ####[facility] [address] [place], [address] Urea nitrogen [Mass/Vol] 9 mg/dL Normal 7-18 [facility] Comment on above: Order Comment: 'TROP ' Serial specimen #1, #2 or #3: 1 Performed By: #### L 100.0500, L500.2500, L501.4020 ####[facility] [address] [place], [address] Blood urea nitrogen (BUN)/cr eatinine ratioOrdered By: Baljit Fleming on 07-31-2024 Urea nitrogen/Creatinine [Mass ratio] 12.3 mg/mg 10- [facility] Brain/Head without Contrasto n 07-31-2024 Brain/Head without Contrast Normal [facility] CBC-Complete Blood Cnt No Di ffon 07-31-2024 Erythrocyte distribution width (RBC) [Ratio] 12.4 % Normal 11.6-14.6 [facility] Comment on above: Performed By: #### L 100.0500, L500.2500, L501.4020 ####[facility] [address] [place], [address] Hematocrit (Bld) [Volume fraction] 43.3 % Normal 40-54 [facility] Comment on above: Performed By: #### L 100.0500, L500.2500, L501.4020 ####[facility] [address] [place], [address] Hemoglobin (Bld) [Mass/Vol] 14.9 g/dL Normal 13.0-16.5 [facility] Comment on above: Performed By: #### L 100.0500, L500.2500, L501.4020 ####[facility] [address] [place], [address] MCH (RBC) [Entitic mass] 33.2 pg High 27.0-32.0 [facility] Comment on above: Performed By: #### L 100.0500, L500.2500, L501.4020 ####[facility] [address] [place], [address] MCHC (RBC) [Mass/Vol] 34.4 g/dL Normal 32-36 [facility] Comment on above: Performed By: #### L 100.0500, L500.2500, L501.4020 ####[facility] [address] [place], [address] MCV (RBC) [Entitic vol] 96.4 fL High 80-94 [facility] Comment on above: Performed By: #### L 100.0500, L500.2500, L501.4020 ####[facility] [address] [place], [address] Platelet mean volume (Bld) [Entitic vol] 11.0 fL Normal 6.2-12.0 [facility] Comment on above: Performed By: #### L 100.0500, L500.2500, L501.4020 ####[facility] [address] [place], [address] Platelets (Bld) [#/Vol] 233 10*3/uL Normal 150-450 [facility] Comment on above: Performed By: #### L 100.0500, L500.2500, L501.4020 ####[facility] [address] [place], [address] RBC (Bld) [#/Vol] 4.49 10*6/uL Low 4.6-6.2 [facility] Comment on above: Performed By: #### L 100.0500, L500.2500, L501.4020 ####[facility] [address] [place], [address] RDW SD 44.2 fl High 35.1-43.9 [facility] Comment on above: Performed By: #### L 100.0500, L500.2500, L501.4020 ####[facility] [address] [place], [address] WBC (Bld) [#/Vol] 5.9 10*3/uL Normal 4.4-11.0 [facility] Comment on above: Performed By: #### L 100.0500, L500.2500, L501.4020 ####[facility] [address] [place], [address] Carbon dioxide measurementOr dered By: Baljit Fleming on 07-31-2024 CO2 [Moles/Vol] 29.0 mmol/L 21.0-32.0 [facility] Chest 1 View (Portable)on Chest 1 View (Portable) Normal [facility] Chloride measurementOrdered By: Baljit Fleming on 07-31-2024 Chloride [Moles/Vol] 105 mmol/L 98-107 [facility] Emergency Department Summary on 07-31-2024 Emergency Department Summary Normal [facility] Erythrocyte distribution wid th (RBC) [Ratio]Ordered By: Baljit Fleming on 07-31-2024 Erythrocyte distribution width (RBC) [Entitic vol] 44.2 fL High 35.1-43.9 [facility] Erythrocyte distribution wid th ratioOrdered By: Baljit Fleming on 07-31-2024 Erythrocyte distribution width (RBC) [Ratio] 12.4 % 11.6-14.6 [facility] Estimated glomerular filtrat ion rate (GFR) AmericanOrdered By: Baljit Fleming on 07-31-2024 Estimated GFR (MDRD) Amer 138 mL/min >60 [facility] Comment on above: GFR Calc Estimation of creatinine brandon aranceOrdered By: Baljit Fleming on 07-31-2024 Estimated Creatinine Clearance Calc 125.51 ml/min [facility] Glomerular filtration rate ( GFR) estimationOrdered By: Baljit Fleming on 07-31-2024 Estimated GFR (MDRD) Non-Af Amer 114 mL/min >60 [facility] Comment on above: Non- GFR Calc Glucose measurementOrdered B y: Baljit Fleming on 07-31-2024 Glucose [Mass/Vol] 88 mg/dL 74-106 [facility] Hematocrit Auto (Bld) [Volum e fraction]Ordered By: Baljit Fleming on 07-31-2024 Hematocrit (Bld) [Volume fraction] 43.3 % 40-54 [facility] Hemoglobin measurementOrdere d By: Baljit Fleming on 07-31-2024 Hemoglobin (Bld) [Mass/Vol] 14.9 g/dL 13.0-16.5 [facility] Influenza virus A and B and SARS-CoV-2 (COVID-19) and Respiratory syncytial virus RNAOrdered By: Baljit Fleming on 07-31-2024 SARS-CoV-2 (COVID-19) RNA VALENTINA+probe Ql (Unsp spec) [facility] L501.4020on 07-31-2024 TROPONIN-I HS 10 pg/mL Normal 3.0-78.0 [facility] Comment on above: Order Comment: 'TROP ' Serial specimen #1, #2 or #3: 1 Result Comment: Sacha aguirre Note: New Test Units and Gender Specific Reference Ranges. For more information see Policy Stat Procedure [place] High Sensitivity Troponin (TNIH) and attachments. Performed By: #### L 100.0500, L500.2500, L501.4020 ####[facility] [address] [place], [address] M100.678on 07-31-2024 M100.678 Pending SARS-CoV-2 (COVID 19) Negative INFLUENZA A Negative INFLUENZA B Negative RSV PCR Negative Normal [facility] Comment on above: Performed By: #### M 100.678 ####[facility] [address] [place], [address] MCV (mean corpuscular volume ) determinationOrdered By: Baljit Fleming on 07-31-2024 MCV (RBC) [Entitic vol] 96.4 fL High 80-94 [facility] Mean corpuscular hemoglobin (MCH) determinationOrdered By: Baljit Fleming on 07-31-2024 MCH (RBC) [Entitic mass] 33.2 pg High 27.0-32.0 [facility] Mean corpuscular hemoglobin concentration (MCHC) determinationOrdered By: Baljit Fleming on 07-31-2024 MCHC (RBC) [Mass/Vol] 34.4 g/dL 32-36 [facility] Mean platelet volume determi nationOrdered By: Baljit Fleming on 07-31-2024 Platelet mean volume (Bld) [Entitic vol] 11.0 fL 6.2-12.0 [facility] Platelet countOrdered By: jaja Fleming on 07-31-2024 Platelets (Bld) [#/Vol] 233 10*3/uL 150-450 [facility] Potassium measurementOrdered By: Baljit Fleming on 07-31-2024 Potassium [Moles/Vol] 4.5 mmol/L 3.5-5.1 [facility] Comment on above: Moderate Hemolysis, Result may be falsely increased. RBC Auto (Bld) [#/Vol]Ordere d By: Baljit Fleming on 07-31-2024 RBC (Bld) [#/Vol] 4.49 10*6/uL Low 4.6-6.2 [facility] Serum anion gap measurementO rdered By: Baljit Fleming on 07-31-2024 Anion gap [Moles/Vol] 5 mmol/L 5-15 [facility] Serum or plasma calcium jody urement (mass/volume)Ordered By: Baljit Fleming on 07-31-2024 Calcium [Mass/Vol] 9.3 mg/dL 8.5-10.1 [facility] Serum or plasma creatinine m easurement (mass/volume)Ordered By: Baljit Fleming on 07-31-2024 Creatinine [Mass/Vol] 0.73 mg/dL 0.70-1.30 [facility] Comment on above: The validity of the calculated GFR & GFRAA in patients over 70 years has not been determined. Clinical correlation is essential. Serum or plasma urea nitroge n measurement (mass/volume)Ordered By: Baljit Fleming on 07-31-2024 Urea nitrogen [Mass/Vol] 9 mg/dL 7-18 [facility] Sodium levelOrdered By: Kelby Fleming on 07-31-2024 Sodium [Moles/Vol] 139 mmol/L 136-145 [facility] Troponin IOrdered By: Baljit Fleming on 07-31-2024 Troponin I High Sensitivity 10 pg/mL 3.0-78.0 [facility] Comment on above: Please Note: New Susy t Units and Gender Specific Reference Ranges. For more information see Policy Stat Procedure [place] High Sensitivity Troponin (TNIH) and attachments. White blood cell (WBC) count Ordered By: Baljit Fleming on 07-31-2024 WBC (Bld) [#/Vol] 5.9 10*3/uL 4.4-11.0 [facility] CNOVon 06-01-2024 CNOV Office Visit ([facility]) OLGA MARTIN ([id number]) 1960 M Date Time Provider Department 06/01/24 3:00 PM [facility] During your visit today, we recorded the [...] content not included)... Normal [facility] Abdomen W/WO IV Contraston 1 Abdomen W/WO IV Contrast Normal [facility] Adrenocorticotropic Hormoneo n 04-30-2024 ACTH 6.6 pg/mL Low 7.2-63.3 [facility] Comment on above: Order Comment: N Result Comment: ACTH reference interval for samples collected between 7 and10 AM.Performed at: [employer] [id number] Director: Calderon Shane PhD, Phone: [phone] Performed By: #### L 3300.1000 ####[facility] [address] [place], [address] Basophil percentageOrdered B y: Zoraida Marino on 07-22-2023 Cholesterol [Mass/Vol] 189 mg/dL <200 [facility] Comment on above: <200 mg/dL Desirable 200-240 mg/dL Borderline >240 mg/dL High Risk Triglyceride [Mass/Vol] 86 mg/dL <199 [facility] Comment on above: The drugs N-Acetylcy steine and Metamizole may falsely depress this assay.Serum Triglycerides Reference Interval Normal <150 mg/dL Borderline high 150 - 199 mg/dL High 200 - 499 mg/dL Very High > or = 500 mg/dL Serum or plasma cholesterol in HDL measurement (mass/volume)Ordered By: Zoraida Marino on 07-22-2023 Cholesterol in HDL [Mass/Vol] 55 mg/dL >40 [facility] Comment on above: The drugs N-Acetylcy steine and Metamizole may falsely depress this assay. Reference Range HDL <40 mg/dL Low HDL Cholesterol HDL >or= 60 mg/dL High HDL Cholesterol Serum or plasma cholesterol in VLDL measurement (mass/volume)Ordered By: Zoraida Marnio on 07-22-2023 Cholesterol in VLDL [Mass/Vol] 17 mg/dL 5-40 [facility] Serum or plasma low density lipoprotein (LDL) cholesterol measurement (mass/volume)Ordered By: Zoraida Marino on 07-22-2023 Cholesterol in LDL [Mass/Vol] 117 mg/dL 0-130 [facility] Basophil percentageOrdered B y: Dr. Vieira on 10-13-2022 Basophil percentage < 10.0 umol/L 11-32 [facility] Bilirubin [Mass/Vol] 0.70 mg/dL 0.20-1.00 [facility] Comment on above: For patients on eltr ombopag therapy, use of Dimension [place] TBIL is not recommended. Chloride [Moles/Vol] 107 mmol/L 98-107 [facility] Glucose [Mass/Vol] 96 mg/dL 74-106 [facility] Potassium [Moles/Vol] 3.9 mmol/L 3.5-5.1 [facility] Protein [Mass/Vol] 7.3 g/dL 6.4-8.2 [facility] Sodium [Moles/Vol] 141 mmol/L 136-145 [facility] WBC (Bld) [#/Vol] 8.8 10*3/uL 4.4-11.0 [facility] Blood erythrocytes count (nu mber/volume)Ordered By: Dr. Vieira on 10-13-2022 RBC (Bld) [#/Vol] 4.85 10*6/uL 4.6-6.2 [facility] Blood hemoglobin measurement (mass/volume)Ordered By: Dr. Vieira on 10-13-2022 Hemoglobin (Bld) [Mass/Vol] 15.9 g/dL 13.0-16.5 [facility] Blood platelet mean volumeOr dered By: Dr. Vieira on 10-13-2022 Platelet mean volume (Bld) [Entitic vol] 10.2 fL 6.2-12.0 [facility] Determination of erythrocyte mean corpuscular volume (MCV)Ordered By: Dr. Vieira on 10-13-2022 MCV (RBC) [Entitic vol] 96.1 fL 80-94 [facility] Hematocrit Auto (Bld) [Volum e fraction]Ordered By: Dr. Vieira on 10-13-2022 Hematocrit (Bld) [Volume fraction] 46.6 % 40-54 [facility] Laboratory - Chemistry and C hemistry - challengeOrdered By: Dr. Vieira on 10-13-2022 ALP [Catalytic activity/Vol] 69 U/L 45-117 [facility] ALT [Catalytic activity/Vol] 19 U/L 16-61 [facility] CO2 [Moles/Vol] 27.0 mmol/L 21.0-32.0 [facility] Globulin (S) [Mass/Vol] 3.5 g/dL 2.2-4.2 [facility] Magnesium [Mass/Vol] 2.1 mg/dL 1.6-2.6 [facility] Urea nitrogen/Creatinine [Mass ratio] 11.9 mg/mg 10-20 [facility] Laboratory - Hematology and Cell countsOrdered By: Dr. Vieira on 10-13-2022 Erythrocyte distribution width (RBC) [Entitic vol] 44.0 fL 35.1-43.9 [facility] Erythrocyte distribution width (RBC) [Ratio] 12.3 % 11.6-14.6 [facility] MCH (RBC) [Entitic mass] 32.8 pg 27.0-32.0 [facility] MCHC Auto (RBC) [Mass/Vol]Or dered By: Dr. Vieira on 10-13-2022 MCHC (RBC) [Mass/Vol] 34.1 g/dL 32-36 [facility] No Panel InformationOrdered By: Dr. Vieira on 10-13-2022 Estimated GFR (MDRD) Amer 134 mL/min >60 [facility] Comment on above: GFR Calc Estimated GFR (MDRD) Non-Af Amer 111 mL/min >60 [facility] Comment on above: Non- GFR Calc Thyroid Stimulating Hormone (TSH) 1.56 uIU/mL 0.358-3.74 [facility] Platelets bldOrdered By: Dr. Vieira on 10-13-2022 Platelets (Bld) [#/Vol] 249 10*3/uL 150-450 [facility] Serum or plasma albumin jody urement (mass/volume)Ordered By: Dr. Vieira on 10-13-2022 Albumin [Mass/Vol] 3.8 g/dL 3.2-5.0 [facility] Serum or plasma albumin/glob ulin mass ratioOrdered By: Dr. Vieira on 10-13-2022 Albumin/Globulin [Mass ratio] 1.1 {ratio} 0.9-2.4 [facility] Serum or plasma calcium jody urement (mass/volume)Ordered By: Dr. Vieira on 10-13-2022 Calcium [Mass/Vol] 8.9 mg/dL 8.5-10.1 [facility] Serum or plasma creatinine m easurement (mass/volume)Ordered By: Dr. Vieira on 10-13-2022 Creatinine [Mass/Vol] 0.75 mg/dL 0.70-1.30 [facility] Comment on above: The validity of the calculated GFR & GFRAA in patients over 70 years has not been determined. Clinical correlation is essential. Serum or plasma urea nitroge n measurement (mass/volume)Ordered By: Dr. Vieira on 10-13-2022 Urea nitrogen [Mass/Vol] 9 mg/dL 7-18 [facility] Thin prep Papanicolaou smear with manual screeningOrdered By: Dr. Vieira on 10-13-2022 Thin prep Papanicolaou smear with manual screening 15 U/L 15-37 [facility] Thin prep Papanicolaou smear with manual screening 7 5-15 [facility] MRI CERVICAL SPINE WO IVCONo n [...] vertebrae with counting from the craniocervical junction. Tax Services Specialist: FAM Transcribe Date/Time: Jan 02 2022 1:32P Dictated by : CARLINE NG MD This examination was interpreted and the report reviewed and electronically signed by: CARLINE NG MD on Jan 02 2022 1:43PM EST [id number] CN Normal [facility] NURSING PROGon 01-02-2022 NURSING PROG HNO ID: [id number] Author: Josiane Goff RN Service: Radiology Author [...] 02, 2022 TIME: 12:26 PM Normal [facility] No Panel Informationon 01-02 [facility] Absolute lymphocyte counton 11-07-2021 Lymphocytes Auto (Unsp spec) [#/Vol] 1.40 10*3/uL 0.83-4.51 [facility] Work Phone: Basophil percentageon 2021 Basophils/100 WBC (Bld) 0.9 % 0-1 [facility] Work Phone: [phone] Eosinophils/100 WBC (Bld) 1.3 % 0-5 [facility] Work Phone: [phone] Neutrophils (Bld) [#/Vol] 6.9 10*3/uL 2.0-7.7 [facility] Work Phone: [phone] Neutrophils/100 WBC (Bld) 73.6 % 47-70 [facility] Work Phone: WBC (Bld) [#/Vol] 9.4 10*3/uL 4.4-11.0 [facility] Work Phone: Blood erythrocytes count (nu mber/volume)on 11-07-2021 RBC (Bld) [#/Vol] 3.49 10*6/uL 4.6-6.2 [facility] Work Phone: Blood hemoglobin measurement (mass/volume)on 11-07-2021 Hemoglobin (Bld) [Mass/Vol] 10.2 g/dL 13.0-16.5 [facility] Work Phone: Blood lymphocytes/100 leukoc yteson 11-07-2021 Lymphocytes/100 WBC (Bld) 14.9 % 19-41 [facility] Work Phone: Blood monocytes/100 leukocyt eson 11-07-2021 Monocytes/100 WBC (Bld) 8.9 % 0-10 [facility] Work Phone: Blood platelet mean volumeon 11-07-2021 Platelet mean volume (Bld) [Entitic vol] 8.5 fL 6.2-12.0 [facility] Work Phone: Determination of erythrocyte mean corpuscular volume (MCV)on 11-07-2021 MCV (RBC) [Entitic vol] 89.1 fL 80-94 [facility] Work Phone: Hematocrit Auto (Bld) [Volum e fraction]on 11-07-2021 Hematocrit (Bld) [Volume fraction] 31.1 % 40-54 [facility] Work Phone: Laboratory - Hematology and Cell countson 11-07-2021 Erythrocyte distribution width (RBC) [Entitic vol] 49.7 fL 35.1-43.9 [facility] Work Phone: Erythrocyte distribution width (RBC) [Ratio] 15.5 % 11.6-14.6 [facility] Work Phone: Immature granulocytes/100 WBC (Bld) 0.400 % 0.0-0.9 [facility] Work Phone: Comment on above: IG% - Immature Granu locytes (promyelocytes, myelocytes and metamyelocytes) > 1% indicates that a LEFT SHIFT is Present. MCH (RBC) [Entitic mass] 29.2 pg 27.0-32.0 [facility] Work Phone: Nucleated RBC/100 WBC (Bld) [Ratio] 0 % 0-5 [facility] Work Phone: MCHC Auto (RBC) [Mass/Vol]on 11-07-2021 MCHC (RBC) [Mass/Vol] 32.8 g/dL 32-36 [facility] Work Phone: Platelets bldon 11-07-2021 Platelets (Bld) [#/Vol] 434 10*3/uL 150-450 [facility] Work Phone: Basophil percentageon 2021 Chloride [Moles/Vol] 104 mmol/L 98-107 [facility] Work Phone: Glucose [Mass/Vol] 117 mg/dL 74-106 [facility] Work Phone: Comment on above: Fasting Glucose resu lt from 100 to 125 mg/dL suggests IMPAIRED HOMEOSTASIS per A.D.A. criteria. Potassium [Moles/Vol] 4.0 mmol/L 3.5-5.1 [facility] Work Phone: Sodium [Moles/Vol] 137 mmol/L 136-145 [facility] Work Phone: Laboratory - Chemistry and C hemistry - challengeon 11-04-2021 CO2 [Moles/Vol] 28.0 mmol/L 21.0-32.0 [facility] Work Phone: Urea nitrogen/Creatinine [Mass ratio] 32.1 mg/mg 10-20 [facility] Work Phone: No Panel Informationon 11-04 Estimated Creatinine Clearance Calc 172.37 ml/min [facility] Work Phone: Estimated GFR (MDRD) Amer 190 mL/min >60 [facility] Work Phone: Comment on above: GFR Calc Estimated GFR (MDRD) Non-Af Amer 157 mL/min >60 [facility] Work Phone: Comment on above: Non- GFR Calc Serum or plasma calcium jody urement (mass/volume)on 11-04-2021 Calcium [Mass/Vol] 8.3 mg/dL 8.5-10.1 [facility] Work Phone: Serum or plasma creatinine m easurement (mass/volume)on 11-04-2021 Creatinine [Mass/Vol] 0.56 mg/dL 0.70-1.30 [facility] Work Phone: Comment on above: The validity of the calculated GFR & GFRAA in patients over 70 years has not been determined. Clinical correlation is essential. Serum or plasma urea nitroge n measurement (mass/volume)on 11-04-2021 Urea nitrogen [Mass/Vol] 18 mg/dL 7-18 [facility] Work Phone: Thin prep Papanicolaou smear with manual screeningon 11-04-2021 Thin prep Papanicolaou smear with manual screening 5 5-15 [facility] Work Phone: Basophil percentageon 2021 Bilirubin [Mass/Vol] 0.30 mg/dL 0.20-1.00 [facility] Work Phone: Comment on above: For patients on eltr ombopag therapy, use of Dimension [place] TBIL is not recommended. Protein [Mass/Vol] 6.9 g/dL 6.4-8.2 [facility] Work Phone: Basophil percentage 0 SEEN /hpf 0-5 [facility] Work Phone: Bilirubin Test strip Ql (U)o n 10-26-2021 Bilirubin Ql (U) Negative Negative [facility] Work Phone: Culture, urineon 10-26-2021 Bacteria identified Cx Nom (U) Culture exhibits no growth. [facility] Work Phone: Ketones Test strip Ql (U)on 10-26-2021 Ketones Ql (U) Negative Negative [facility] Work Phone: Laboratory - Chemistry and C hemistry - challengeon 10-26-2021 ALP [Catalytic activity/Vol] 117 U/L 45-117 [facility] Work Phone: ALT [Catalytic activity/Vol] 34 U/L 16-61 [facility] Work Phone: Globulin (S) [Mass/Vol] 4.9 g/dL 2.2-4.2 [facility] Work Phone: Mucus LM Ql (Urine sed)on Mucus Ql (Urine sed) 0 SEEN /hpf [facility] Work Phone: Nitrite Test strip Ql (U)on 10-26-2021 Nitrite Ql (U) Negative Negative [facility] Work Phone: Protein Test strip Ql (U)on 10-26-2021 Protein Ql (U) 15 mg/dl Negative [facility] Work Phone: Serum or plasma albumin jody urement (mass/volume)on 10-26-2021 Albumin [Mass/Vol] 2.0 g/dL 3.2-5.0 [facility] Work Phone: Serum or plasma albumin/glob ulin mass ratioon 10-26-2021 Albumin/Globulin [Mass ratio] 0.4 {ratio} 0.9-2.4 [facility] Work Phone: Squamous epithelial cells de tection in urine sediment by light microscopyon 10-26-2021 Epithelial cells.squamous LM Ql (Urine sed) 0 SEEN /hpf 0-5 [facility] Work Phone: Thin prep Papanicolaou smear with manual screeningon 10-26-2021 Thin prep Papanicolaou smear with manual screening 27 U/L 15-37 [facility] Work Phone: Urine blood detectionon 10-02 RBC Ql (U) 10 /ul Negative [facility] Work Phone: RBC Ql (U) 0 SEEN /hpf 0-5 [facility] Work Phone: Urine clarityon 10-26-2021 Clarity (U) Clear Clear [facility] Work Phone: Urine color determinationon 10-26-2021 Color (U) Yellow Yellow [facility] Work Phone: Urine glucose detectionon Glucose Ql (U) Normal mg/dl Normal [facility] Work Phone: Urine leukocyte esterase det ection by dipstickon 10-26-2021 Leukocyte esterase Test strip Ql (U) Negative Negative [facility] Work Phone: Urine pHon 10-26-2021 pH (U) 8.0 [pH] 5.0 - 8.0 [facility] Work Phone: Urine sediment bacteria coun t by microscopy (number/high power field)on 10-26-2021 Bacteria LM.HPF (Urine sed) [#/Area] 0 /[HPF] None Seen [facility] Work Phone: Urine specific gravity measu rementon 10-26-2021 Specific gravity (U) [Rel density] 1.010 1.002-1.030 [facility] Work Phone: Urobilinogen Auto test strip Ql (U)on 10-26-2021 Urobilinogen Ql (U) Normal mg/dl Normal [facility] Work Phone: Absolute lymphocyte counton 10-23-2021 Lymphocytes Auto (Unsp spec) [#/Vol] 1.13 10*3/uL 0.83-4.51 [facility] Work Phone: Bacteria identified Cx Nom ( Wound)on 10-23-2021 Wound Culture Presumptive C albicans [facility] Work Phone: Wound Culture Staphylococcus epidermidis [facility] Work Phone: Wound Culture Staphylococcus haemolyticus [facility] Work Phone: Wound Culture Escherichia coli [facility] Work Phone: Basophil percentageon 2021 Basophil percentage 3.5 mg/dL 2.5-4.9 [facility] Work Phone: Basophils/100 WBC (Bld) 0.5 % 0-1 [facility] Work Phone: [phone] Bilirubin [Mass/Vol] 0.30 mg/dL 0.20-1.00 [facility] Work Phone: [phone] Comment on above: For patients on eltr ombopag therapy, use of Dimension [place] TBIL is not recommended. Chloride [Moles/Vol] 101 mmol/L 98-107 [facility] Work Phone: [phone] Eosinophils/100 WBC (Bld) 1.0 % 0-5 [facility] Work Phone: Glucose [Mass/Vol] 111 mg/dL 74-106 [facility] Work Phone: Comment on above: Fasting Glucose resu lt from 100 to 125 mg/dL suggests IMPAIRED HOMEOSTASIS per A.D.A. criteria. Neutrophils (Bld) [#/Vol] 5.8 10*3/uL 2.0-7.7 [facility] Work Phone: Neutrophils/100 WBC (Bld) 71.6 % 47-70 [facility] Work Phone: Potassium [Moles/Vol] 3.9 mmol/L 3.5-5.1 [facility] Work Phone: Protein [Mass/Vol] 6.3 g/dL 6.4-8.2 [facility] Work Phone: Sodium [Moles/Vol] 136 mmol/L 136-145 [facility] Work Phone: WBC (Bld) [#/Vol] 8.1 10*3/uL 4.4-11.0 [facility] Work Phone: Blood erythrocytes count (nu mber/volume)on 10-23-2021 RBC (Bld) [#/Vol] 3.00 10*6/uL 4.6-6.2 [facility] Work Phone: Blood hemoglobin measurement (mass/volume)on 10-23-2021 Hemoglobin (Bld) [Mass/Vol] 9.2 g/dL 13.0-16.5 [facility] Work Phone: Blood lymphocytes/100 leukoc yteson 10-23-2021 Lymphocytes/100 WBC (Bld) 13.9 % 19-41 [facility] Work Phone: Blood monocytes/100 leukocyt eson 10-23-2021 Monocytes/100 WBC (Bld) 12.6 % 0-10 [facility] Work Phone: Blood platelet mean volumeon 10-23-2021 Platelet mean volume (Bld) [Entitic vol] 9.4 fL 6.2-12.0 [facility] Work Phone: Determination of erythrocyte mean corpuscular volume (MCV)on 10-23-2021 MCV (RBC) [Entitic vol] 92.0 fL 80-94 [facility] Work Phone: Gram stain for investigation of transfusion reactionon 10-23-2021 Microscopic observation Gram stain Nom (Unsp spec) [facility] Work Phone: Hematocrit Auto (Bld) [Volum e fraction]on 10-23-2021 Hematocrit (Bld) [Volume fraction] 27.6 % 40-54 [facility] Work Phone: Laboratory - Chemistry and C hemistry - challengeon 10-23-2021 ALP [Catalytic activity/Vol] 120 U/L 45-117 [facility] Work Phone: ALT [Catalytic activity/Vol] 31 U/L 16-61 [facility] Work Phone: CO2 [Moles/Vol] 32.0 mmol/L 21.0-32.0 [facility] Work Phone: Globulin (S) [Mass/Vol] 4.5 g/dL 2.2-4.2 [facility] Work Phone: Magnesium [Mass/Vol] 2.4 mg/dL 1.6-2.6 [facility] Work Phone: Urea nitrogen/Creatinine [Mass ratio] 21.2 mg/mg 10-20 [facility] Work Phone: Laboratory - Hematology and Cell countson 10-23-2021 Erythrocyte distribution width (RBC) [Entitic vol] 49.1 fL 35.1-43.9 [facility] Work Phone: Erythrocyte distribution width (RBC) [Ratio] 14.6 % 11.6-14.6 [facility] Work Phone: Immature granulocytes/100 WBC (Bld) 0.400 % 0.0-0.9 [facility] Work Phone: Comment on above: IG% - Immature Granu locytes (promyelocytes, myelocytes and metamyelocytes) > 1% indicates that a LEFT SHIFT is Present. MCH (RBC) [Entitic mass] 30.7 pg 27.0-32.0 [facility] Work Phone: Nucleated RBC/100 WBC (Bld) [Ratio] 0 % 0-5 [facility] Work Phone: MCHC Auto (RBC) [Mass/Vol]on 10-23-2021 MCHC (RBC) [Mass/Vol] 33.3 g/dL 32-36 [facility] Work Phone: No Panel Informationon 10-23 Estimated Creatinine Clearance Calc 180.83 ml/min [facility] Work Phone: Estimated GFR (MDRD) Amer 208 mL/min >60 [facility] Work Phone: Comment on above: GFR Calc Estimated GFR (MDRD) Non-Af Amer 172 mL/min >60 [facility] Work Phone: Comment on above: Non- GFR Calc Platelets bldon 10-23-2021 Platelets (Bld) [#/Vol] 371 10*3/uL 150-450 [facility] Work Phone: Serum or plasma albumin jody urement (mass/volume)on 10-23-2021 Albumin [Mass/Vol] 1.8 g/dL 3.2-5.0 [facility] Work Phone: Serum or plasma albumin/glob ulin mass ratioon 10-23-2021 Albumin/Globulin [Mass ratio] 0.4 {ratio} 0.9-2.4 [facility] Work Phone: Serum or plasma calcium jody urement (mass/volume)on 10-23-2021 Calcium [Mass/Vol] 8.0 mg/dL 8.5-10.1 [facility] Work Phone: Serum or plasma creatinine m easurement (mass/volume)on 10-23-2021 Creatinine [Mass/Vol] 0.52 mg/dL 0.70-1.30 [facility] Work Phone: Comment on above: The validity of the calculated GFR & GFRAA in patients over 70 years has not been determined. Clinical correlation is essential. Serum or plasma urea nitroge n measurement (mass/volume)on 10-23-2021 Urea nitrogen [Mass/Vol] 11 mg/dL 7-18 [facility] Work Phone: Thin prep Papanicolaou smear with manual screeningon 10-23-2021 Thin prep Papanicolaou smear with manual screening 23 U/L 15-37 [facility] Work Phone: Thin prep Papanicolaou smear with manual screening 3 5-15 [facility] Work Phone: Glucose Glucometer (BldC) [M ass/Vol]on 10-19-2021 Glucose [Mass/Vol] 130 mg/dL 74-106 [facility] Work Phone: Comment on above: MANAGEMENT OF PATIEN T CARE PER NURSING PROTOCOL Vancomycin troughon 10-20-19 Vancomycin trough [Mass/Vol] 19.4 ug/mL 5.0-15.0 [facility] Work Phone: Comment on above: VANCOMYCIN STANDARED DRUG THERAPY TROUGH LEVEL: 5.0 - 15.0 mg/L VANCOMYCIN HIGH INTENSITY THERAPY TROUGH LEVEL: 15.0 - 20.0 mg/L High Intensity therapy recommended for serious lifethreatening infections include:- Ivejmvxzlb-Xtnxbitrufnt-Pogjdukfn (Ventilator/Healtcare Associated)-Sepsis PLEASE CONTACT PHARMACY SERVICES (#[id number]) FOR INTERPRETATIONOF RESULTS. Serum or plasma vancomycin m easurement (mass/volume)on 10-18-2021 Vancomycin [Mass/Vol] 13.1 ug/mL 0.0-15.0 [facility] Work Phone: Comment on above: VANCOMYCIN STANDARD DRUG THERAPY: CRITICAL VALUE IS > 15.0 mg/L VANCOMYCIN HIGH INTENSITY THERAPY: CRITICAL VALUE IS > 20.0 mg/L PLEASE CONTACT PHARMACY SERVICES (#[id number]) FOR INTERPRETATIONOF RESULTS. THIS RESULT DOES NOT REPRESENT A PEAK OR TROUGHLEVEL FOR THIS DRUG. Basophil percentageon 2021 Basophil percentage 0 SEEN /hpf 0-5 [facility] Work Phone: Bilirubin Test strip Ql (U)o n 10-15-2021 Bilirubin Ql (U) Negative Negative [facility] Work Phone: Ketones Test strip Ql (U)on 10-15-2021 Ketones Ql (U) Negative Negative [facility] Work Phone: Mucus LM Ql (Urine sed)on Mucus Ql (Urine sed) 0 SEEN /hpf [facility] Work Phone: Nitrite Test strip Ql (U)on 10-15-2021 Nitrite Ql (U) Negative Negative [facility] Work Phone: Protein Test strip Ql (U)on 10-15-2021 Protein Ql (U) Negative Negative [facility] Work Phone: Squamous epithelial cells de tection in urine sediment by light microscopyon 10-15-2021 Epithelial cells.squamous LM Ql (Urine sed) 0 SEEN /hpf 0-5 [facility] Work Phone: Urine blood detectionon 10-01 RBC Ql (U) 10 /ul Negative [facility] Work Phone: RBC Ql (U) 0 SEEN /hpf 0-5 [facility] Work Phone: Urine clarityon 10-15-2021 Clarity (U) Clear Clear [facility] Work Phone: Urine color determinationon 10-15-2021 Color (U) Yellow Yellow [facility] Work Phone: Urine glucose detectionon Glucose Ql (U) Normal mg/dl Normal [facility] Work Phone: Urine leukocyte esterase det ection by dipstickon 10-15-2021 Leukocyte esterase Test strip Ql (U) Negative Negative [facility] Work Phone: Urine pHon 10-15-2021 pH (U) 5.0 [pH] 5.0 - 8.0 [facility] Work Phone: Urine sediment bacteria coun t by microscopy (number/high power field)on 10-15-2021 Bacteria LM.HPF (Urine sed) [#/Area] 0 /[HPF] None Seen [facility] Work Phone: Urine specific gravity measu rementon 10-15-2021 Specific gravity (U) [Rel density] 1.015 1.002-1.030 [facility] Work Phone: Urobilinogen Auto test strip Ql (U)on 10-15-2021 Urobilinogen Ql (U) Normal mg/dl Normal [facility] Work Phone: Basophil percentageon 2021 Triglyceride [Mass/Vol] 121 mg/dL <199 [facility] Work Phone: Comment on above: The drugs N-Acetylcy steine and Metamizole may falsely depress this assay.Serum Triglycerides Reference Interval Normal <150 mg/dL Borderline high 150 - 199 mg/dL High 200 - 499 mg/dL Very High > or = 500 mg/dL Serum or plasma transthyreti n measurement (mass/volume)on 10-09-2021 Prealbumin [Mass/Vol] 7.9 mg/dL 20.0-40.0 [facility] Work Phone: No Panel Informationon 10-07 Troponin I High Sensitivity 11 pg/mL 3.0-78.0 [facility] Work Phone: Comment on above: Please Note: New Susy t Units and Gender Specific Reference Ranges. For more information see Policy Stat Procedure [place] High Sensitivity Troponin (TNIH) and attachments. Blood manual differential co mment interpretation (narrative result)on 10-03-2021 Manual differential comment [place] (Bld) [Interp] SCANNED [facility] Work Phone: Review by pathologiston Pathologist review [place] (Unsp spec) [Interp] Reviewed [facility] Work Phone: Comment on above: Previous reported re sult: Taisha dyson Edited by: RGOOD on 10/04/21:0917Neutrophilic leukocytosis.Thrombocytosis.Clinical correlation necessary.Burt Sierra M.D. 10/04/21 AMENDED REPORT 10/04/21 0917 PATH REV previously reported as: Taisha dyson Laboratory - Coagulationon 0 10-02-2021 aPTT Coag (Bld) [Time] 33.5 s 24.1-36.2 [facility] Work Phone: Direct bilirubinon 2 Bilirubin.direct [Mass/Vol] 0.18 mg/dL 0.00-0.30 [facility] Work Phone: Laboratory - Chemistry and C hemistry - challengeon 09-20-2021 Lipase [Catalytic activity/Vol] 73 U/L 73-393 [facility] Work Phone: XR Shoulder - right 3 Viewso n 06-12-2021 IMPRESSION: Benign reactive changes, otherwise no significant bone or articular disease identified. Tax Services Specialist: FAM Transcribe Date/Time: Jun 12 2021 10:51A Dictated by : ALYSA AKBAR MD This examination was interpreted and the report reviewed and electronically signed by: ALYSA AKBAR MD on Jun 12 2021 11:02AM [facility] DIVISION OF RADIOLOGY * * *Final [...] examination of 2010. DIVISION OF RADIOLOGY Provider, [facility] - 06/12/2021 * * *Final Report* * [...] no significant bone or articular disease identified. Tax Services Specialist: PSCB Transcribe Date/Time: Jun 12 2021 10:51A Dictated by : ALYSA AKBAR MD This examination was interpreted and the report reviewed and electronically signed by: ALYSA AKBAR MD on Jun 12 2021 11:02AM [facility] Radiology Study observation (narrative) [place]e XR Shoulder - right 3 ViewsO rdered By: [facility] Provider on 06-12-2021 [facility] Bacteria identified Cx Nom ( Wound) Wound Culture Presumptive C albicans [facility] Work Phone: Wound Culture Staphylococcus epidermidis [facility] Work Phone: Wound Culture Staphylococcus haemolyticus [facility] Work Phone: Wound Culture Escherichia coli [facility] Work Phone: Culture, urine Bacteria identified Cx Nom (U) Culture exhibits no growth. [facility] Work Phone: Gram stain for investigation of transfusion reaction Microscopic observation Gram stain Nom (Unsp spec) [facility] Work Phone: Vital Signs Date Time Vital Sign Value Performing Clinician Facility 04-14-2025 21:00-0400 Body temperature 98 [degF] Dr. Zoraida Marino MD Work Phone: [facility] 04-14-2025 21:00-0400 Diastolic blood pressure 89 mm[Hg] Dr. Zoraida Marino MD Work Phone: [facility] 04-14-2025 21:00-0400 Heart rate 82 /min Dr. Zoraida Marino MD Work Phone: [facility] 04-14-2025 21:00-0400 Respiratory rate 18 /min Dr. Zoraida Marino MD Work Phone: [facility] 04-14-2025 21:00-0400 SaO2% (BldA) [Mass fraction] 100 % Dr. Zoraida Marino MD Work Phone: [facility] 04-14-2025 21:00-0400 Systolic blood pressure 146 mm[Hg] Dr. Zoraida Marino MD Work Phone: [facility] 04-14-2025 19:00-0400 Body mass index (BMI) [Ratio] 27.2 kg/m2 Dr. Zoraida Marino MD Work Phone: [facility] 04-14-2025 19:00-0400 Body weight 101.[address] Zoraida Marino MD Work Phone: [facility] 04-14-2025 17:34-0400 Body height 193.[address] Zoraida Marino MD Work Phone: [facility] 10-24-2024 08:06-0400 Body height 193.[address] Zoraida Marino MD Work Phone: [facility] 10-24-2024 08:06-0400 Body mass index (BMI) [Ratio] 27.1 kg/m2 Dr. Zoraida Marino MD Work Phone: [facility] 10-24-2024 08:06-0400 Body temperature 97.3 [degF] Dr. Zoraida Marino MD Work Phone: [facility] 10-24-2024 08:06-0400 Body weight 101.[address] Zoraida Marino MD Work Phone: [facility] 10-24-2024 08:06-0400 Diastolic blood pressure 82 mm[Hg] Dr. Zoraida Marino MD Work Phone: [facility] 10-24-2024 08:06-0400 Heart rate 106 /min Dr. Zoraida Marino MD Work Phone: [facility] 10-24-2024 08:06-0400 Respiratory rate 16 /min Dr. Zoraida Marino MD Work Phone: [facility] 10-24-2024 08:06-0400 SaO2% (BldA) [Mass fraction] 96 % Dr. Zoraida Marino MD Work Phone: [facility] 10-24-2024 08:06-0400 Systolic blood pressure 132 mm[Hg] Dr. Zoraida Marino MD Work Phone: [facility] 09-30-2024 12:42-0500 Body temperature 97.8 [degF] Dr. Zoraida Marino MD Work Phone: [facility] 09-30-2024 12:42-0500 Diastolic blood pressure 87 mm[Hg] Dr. Zoraida Marino MD Work Phone: [facility] 09-30-2024 12:42-0500 Heart rate 87 /min Dr. Zoraida Marino MD Work Phone: [facility] 09-30-2024 12:42-0500 Respiratory rate 18 /min Dr. Zoraida Marino MD Work Phone: [facility] 09-30-2024 12:42-0500 SaO2% (BldA) [Mass fraction] 94 % Dr. Zoraida Marino MD Work Phone: [facility] 09-30-2024 12:42-0500 Systolic blood pressure 156 mm[Hg] Dr. Zoraida Marino MD Work Phone: [facility] 09-29-2024 09:46-0500 Inhaled oxygen flow rate 1.5 L/min Dr. Zoraida Marino MD Work Phone: [facility] 09-29-2024 05:07-0500 Body mass index (BMI) [Ratio] 27.2 kg/m2 Dr. Zoraida Marino MD Work Phone: [facility] 09-29-2024 05:07-0500 Body weight 101.[address] Zoraida Marino MD Work Phone: [facility] 09-28-2024 08:00-0500 Inhaled oxygen concentration 30 % Dr. Zoraida Marino MD Work Phone: [facility] 08-16-2024 14:12-0500 Body mass index (BMI) [Ratio] 27.1 kg/m2 Dr. Zoraida Marino MD Work Phone: [facility] 08-16-2024 14:12-0500 Body temperature 98.4 [degF] Dr. Zoraida Marino MD Work Phone: [facility] 08-16-2024 14:12-0500 Body weight 101.[address] Zoraida Marino MD Work Phone: [facility] 08-16-2024 14:12-0500 Diastolic blood pressure 70 mm[Hg] Dr. Zoraida Marino MD Work Phone: [facility] 08-16-2024 14:12-0500 Heart rate 78 /min Dr. Zoraida Marino MD Work Phone: [facility] 08-16-2024 14:12-0500 Respiratory rate 16 /min Dr. Zoraida Marino MD Work Phone: [facility] 08-16-2024 14:12-0500 SaO2% (BldA) [Mass fraction] 95 % Dr. Zoraida Marino MD Work Phone: [facility] 08-16-2024 14:12-0500 Systolic blood pressure 136 mm[Hg] Dr. Zoraida Marino MD Work Phone: [facility] 07-31-2024 13:05-0500 Diastolic blood pressure 85 mm[Hg] Dr. Zoraida Marino MD Work Phone: [facility] 07-31-2024 13:05-0500 Heart rate 69 /min Dr. Zoraida Marino MD Work Phone: [facility] 07-31-2024 13:05-0500 Respiratory rate 20 /min Dr. Zoraida Marino MD Work Phone: [facility] 07-31-2024 13:05-0500 SaO2% (BldA) [Mass fraction] 93 % Dr. Zoraida Marino MD Work Phone: [facility] 07-31-2024 13:05-0500 Systolic blood pressure 130 mm[Hg] Dr. Zoraida Marino MD Work Phone: [facility] 07-31-2024 11:41-0500 Body temperature 98.5 [degF] Dr. Zoraida Marino MD Work Phone: [facility] 07-31-2024 10:19-0500 Body mass index (BMI) [Ratio] 27.6 kg/m2 Dr. Zoraida Marino MD Work Phone: [facility] 07-31-2024 10:19-0500 Body weight 102.[address] Zoraida Marino MD Work Phone: [facility] 06-01-2024 14:47-0400 Body height 193 cm Evan Walden MD Work Phone: [facility] 06-01-2024 14:47-0400 Body mass index (BMI) [Ratio] 27.27 kg/m2 Evan Walden MD Work Phone: [facility] 06-01-2024 14:47-0400 Body weight 101.61 kg Evan Walden MD Work Phone: [facility] 06-01-2024 14:47-0400 Heart rate 88 /min Evan Walden MD Work Phone: [facility] 06-01-2024 14:47-0400 SaO2% (BldA) [Mass fraction] 97 % Evan Walden MD Work Phone: [facility] 08-31-2023 07:12-0500 Body height 193.[address] Zoraida Marino Work Phone: [facility] 08-31-2023 07:12-0500 Body mass index (BMI) [Ratio] 28.5 kg/m2 Dr. Zoraida Marino Work Phone: [facility] 08-31-2023 07:12-0500 Body temperature 98.4 [degF] Dr. Zoraida Marino Work Phone: [facility] 08-31-2023 07:12-0500 Body weight 106.[address] Zoraida Marino Work Phone: [facility] 08-31-2023 07:12-0500 Diastolic blood pressure 108 mm[Hg] Dr. Zoraida Marino Work Phone: [facility] 08-31-2023 07:12-0500 Heart rate 82 /min Dr. Zoraida Marino Work Phone: [facility] 08-31-2023 07:12-0500 Respiratory rate 18 /min Dr. Zoraida Marino Work Phone: [facility] 08-31-2023 07:12-0500 SaO2% (BldA) [Mass fraction] 96 % Dr. Zoraida Marino Work Phone: [facility] 08-31-2023 07:12-0500 Systolic blood pressure 182 mm[Hg] Dr. Zoraida Marino Work Phone: [facility] 08-26-2023 10:47-0500 Body temperature 98.6 [degF] Dr. Zoraida Marino Work Phone: [facility] 08-26-2023 10:47-0500 Diastolic blood pressure 80 mm[Hg] Dr. Zoraida Marino Work Phone: [facility] 08-26-2023 10:47-0500 Heart rate 88 /min Dr. Zoraida Marino Work Phone: [facility] 08-26-2023 10:47-0500 Respiratory rate 16 /min Dr. Zoraida Marino Work Phone: [facility] 08-26-2023 10:47-0500 SaO2% (BldA) [Mass fraction] 98 % Dr. Zoraida Marino Work Phone: [facility] 08-26-2023 10:47-0500 Systolic blood pressure 122 mm[Hg] Dr. Zoraida Marino Work Phone: [facility] 08-17-2023 08:52-0500 Diastolic blood pressure 98 mm[Hg] Dr. Zoraida Marino Work Phone: [facility] 08-17-2023 08:52-0500 Systolic blood pressure 152 mm[Hg] Dr. Zoraida Marino Work Phone: [facility] 08-17-2023 08:01-0500 Body height 193.[address] Zoraida Marino Work Phone: [facility] 08-17-2023 08:01-0500 Body mass index (BMI) [Ratio] 29.5 kg/m2 Dr. Zoraida Marino Work Phone: [facility] 08-17-2023 08:01-0500 Body temperature 97.6 [degF] Dr. Zoraida Marino Work Phone: [facility] 08-17-2023 08:01-0500 Body weight 110.[address] Zoraida Marino Work Phone: [facility] 08-17-2023 08:01-0500 Heart rate 85 /min Dr. Zoraida Marino Work Phone: [facility] 08-17-2023 08:01-0500 Respiratory rate 16 /min Dr. Zoraida Marino Work Phone: [facility] 08-17-2023 08:01-0500 SaO2% (BldA) [Mass fraction] 98 % Dr. Zoraida Marino Work Phone: [facility] 07-02-2023 11:46-0500 Body height 193.[address] Zoraida Marino Work Phone: [facility] 07-02-2023 11:46-0500 Body temperature 98.4 [degF] Dr. Zoraida Marino Work Phone: [facility] 07-02-2023 11:46-0500 Diastolic blood pressure 98 mm[Hg] Dr. Zoraida Marino Work Phone: [facility] 07-02-2023 11:46-0500 Heart rate 85 /min Dr. Zoraida Marino Work Phone: [facility] 07-02-2023 11:46-0500 Respiratory rate 17 /min Dr. Zoraida Marino Work Phone: [facility] 07-02-2023 11:46-0500 SaO2% (BldA) [Mass fraction] 95 % Dr. Zoraida Marino Work Phone: [facility] 07-02-2023 11:46-0500 Systolic blood pressure 154 mm[Hg] Dr. Zoraida Marino Work Phone: [facility] 05-07-2023 07:48-0400 Body mass index (BMI) [Ratio] 28.5 kg/m2 Dr. Zoraida Marino Work Phone: [facility] 05-07-2023 07:48-0400 Body temperature 98.6 [degF] Dr. Zoraida Marino Work Phone: [facility] 05-07-2023 07:48-0400 Body weight 106.[address] Zoraida Marino Work Phone: [facility] 05-07-2023 07:48-0400 Diastolic blood pressure 82 mm[Hg] Dr. Zoraida Marino Work Phone: [facility] 05-07-2023 07:48-0400 Heart rate 75 /min Dr. Zoraida Marino Work Phone: [facility] 05-07-2023 07:48-0400 Respiratory rate 17 /min Dr. Zoraida Marino Work Phone: [facility] 05-07-2023 07:48-0400 SaO2% (BldA) [Mass fraction] 96 % Dr. Zoraida Marino Work Phone: [facility] 05-07-2023 07:48-0400 Systolic blood pressure 142 mm[Hg] Dr. Zoraida Marino Work Phone: [facility] 10-09-2022 08:20-0500 Body height 193.[address] Zoraida Marino Work Phone: [facility] 10-09-2022 08:20-0500 Body mass index (BMI) [Ratio] 28.1 kg/m2 Dr. Zoraida Marino Work Phone: [facility] 10-09-2022 08:20-0500 Body temperature 98.7 [degF] Dr. Zoraida Marino Work Phone: [facility] 10-09-2022 08:20-0500 Body weight 104.[address] Zoraida Marino Work Phone: [facility] 10-09-2022 08:20-0500 Diastolic blood pressure 90 mm[Hg] Dr. Zoraida Marino Work Phone: [facility] 10-09-2022 08:20-0500 Heart rate 98 /min Dr. Zoraida Marino Work Phone: [facility] 10-09-2022 08:20-0500 Respiratory rate 17 /min Dr. Zoraida Marino Work Phone: [facility] 10-09-2022 08:20-0500 SaO2% (BldA) [Mass fraction] 97 % Dr. Zoraida Marino Work Phone: [facility] 10-09-2022 08:20-0500 Systolic blood pressure 140 mm[Hg] Dr. Zoraida Marino Work Phone: [facility] 08-14-2022 11:03-0500 Body temperature 97.1 [degF] Dr. Zoraida Marino Work Phone: [facility] 08-14-2022 11:03-0500 Diastolic blood pressure 97 mm[Hg] Dr. Zoraida Marino Work Phone: [facility] 08-14-2022 11:03-0500 Heart rate 77 /min Dr. Zoraida Marino Work Phone: [facility] 08-14-2022 11:03-0500 Respiratory rate 16 /min Dr. Zoraida Marino Work Phone: [facility] 08-14-2022 11:03-0500 SaO2% (BldA) [Mass fraction] 98 % Dr. Zoraida Marino Work Phone: [facility] 08-14-2022 11:03-0500 Systolic blood pressure 142 mm[Hg] Dr. Zoraida Marino Work Phone: [facility] 08-14-2022 08:30-0500 Body mass index (BMI) [Ratio] 27 kg/m2 Dr. Zoraida Marino Work Phone: [facility] 08-14-2022 08:30-0500 Body weight 100.[address] Zoraida Marino Work Phone: [facility] 07-21-2022 09:38-0500 Body mass index (BMI) [Ratio] 28.4 kg/m2 Dr. Zoraida Marino Work Phone: [facility] 07-21-2022 09:38-0500 Body temperature 99.3 [degF] Dr. Zoraida Marino Work Phone: [facility] 07-21-2022 09:38-0500 Body weight 106.[address] Zoraida Marino Work Phone: [facility] 07-21-2022 09:38-0500 Diastolic blood pressure 78 mm[Hg] Dr. Zoraida Marino Work Phone: [facility] 07-21-2022 09:38-0500 Heart rate 100 /min Dr. Zoraida Marino Work Phone: [facility] 07-21-2022 09:38-0500 Respiratory rate 16 /min Dr. Zoraida Marino Work Phone: [facility] 07-21-2022 09:38-0500 SaO2% (BldA) [Mass fraction] 99 % Dr. Zoraida Marino Work Phone: [facility] 07-21-2022 09:38-0500 Systolic blood pressure 160 mm[Hg] Dr. Zoraida Marino Work Phone: [facility] 01-23-2022 11:36-0400 Diastolic blood pressure 88 mm[Hg] Dr. Linda Dominguez Work Phone: [facility] Work Phone: 01-23-2022 11:36-0400 Systolic blood pressure 146 mm[Hg] Dr. Linda Dominguez Work Phone: [facility] Work Phone: 01-23-2022 10:07-0400 Body height 193.[address] Linda Dominguez Work Phone: [facility] Work Phone: 01-23-2022 10:07-0400 Body mass index (BMI) [Ratio] 29 kg/m2 Dr. Linda Dominguez Work Phone: [facility] Work Phone: 01-23-2022 10:07-0400 Body temperature 98.7 [degF] Dr. Linda Dominguez Work Phone: [facility] Work Phone: 01-23-2022 10:07-0400 Body weight 107.[address] Linda Dominguez Work Phone: [facility] Work Phone: 01-23-2022 10:07-0400 Heart rate 72 /min Dr. Linda Dominguez Work Phone: [facility] Work Phone: 01-23-2022 10:07-0400 Respiratory rate 18 /min Dr. Linda Dominguez Work Phone: [facility] Work Phone: 01-23-2022 10:07-0400 SaO2% (BldA) [Mass fraction] 96 % Dr. Linda Dominguez Work Phone: [facility] Work Phone: 11-22-2021 10:33-0400 Body temperature 97.9 [degF] Dr. Linda Dominguez Work Phone: [facility] Work Phone: 11-13-2021 10:17-0400 Diastolic blood pressure 91 mm[Hg] Dr. Linda Dominguez Work Phone: [facility] Work Phone: 11-13-2021 10:17-0400 Heart rate 101 /min Dr. Linda Dominguez Work Phone: [facility] Work Phone: 11-13-2021 10:17-0400 Respiratory rate 18 /min Dr. Linda Dominguez Work Phone: [facility] Work Phone: 11-13-2021 10:17-0400 SaO2% (BldA) [Mass fraction] 96 % Dr. Linda Dominguez Work Phone: [facility] Work Phone: 11-13-2021 10:17-0400 Systolic blood pressure 138 mm[Hg] Dr. Linda Dominguez Work Phone: [facility] Work Phone: 11-13-2021 06:27-0400 Body height 193.[address] Linda Dominguez Work Phone: [facility] Work Phone: 11-13-2021 06:27-0400 Body mass index (BMI) [Ratio] 28.8 kg/m2 Dr. Linda Dominguez Work Phone: [facility] Work Phone: 11-13-2021 06:27-0400 Body temperature 98.2 [degF] Dr. Linda Dominguez Work Phone: [facility] Work Phone: 11-13-2021 06:27-0400 Body weight 107.[address] Linda Dominguez Work Phone: [facility] Work Phone: 11-09-2021 09:28-0400 Heart rate 99 /min Dr. Linda Dominguez Work Phone: [facility] Work Phone: 11-09-2021 09:28-0400 Respiratory rate 18 /min Dr. Linda Dominguez Work Phone: [facility] Work Phone: 11-09-2021 09:28-0400 SaO2% (BldA) [Mass fraction] 94 % Dr. Linda Dominguez Work Phone: [facility] Work Phone: 11-09-2021 09:06-0400 Body temperature 98.1 [degF] Dr. Linda Dominguez Work Phone: [facility] Work Phone: 11-09-2021 09:06-0400 Diastolic blood pressure 76 mm[Hg] Dr. Linda Dominguez Work Phone: [facility] Work Phone: 11-09-2021 09:06-0400 Systolic blood pressure 132 mm[Hg] Dr. Linda Dominguez Work Phone: [facility] Work Phone: 11-06-2021 12:04-0400 Body height 195.[address] Linda Dominguez Work Phone: [facility] Work Phone: 11-06-2021 12:04-0400 Body weight 104.[address] Linda Dominguez Work Phone: [facility] Work Phone: 10-28-2021 14:26-0400 Inhaled oxygen flow rate 2 L/min Dr. Linda Dominguez Work Phone: [facility] Work Phone: 10-27-2021 05:55-0400 Inhaled oxygen concentration 96 % Dr. Linda Dominguez Work Phone: [facility] Work Phone: 10-23-2021 16:30-0400 Body mass index (BMI) [Ratio] 28.8 kg/m2 Dr. Linda Dominguez Work Phone: [facility] Work Phone: 10-23-2021 14:22-0400 Body temperature 98.2 [degF] Dr. Linda Dominguez Work Phone: [facility] Work Phone: 10-23-2021 14:22-0400 Diastolic blood pressure 84 mm[Hg] Dr. Linda Dominguez Work Phone: [facility] Work Phone: 10-23-2021 14:22-0400 Heart rate 91 /min Dr. Linda Dominguez Work Phone: [facility] Work Phone: 10-23-2021 14:22-0400 Respiratory rate 16 /min Dr. Linda Dominguez Work Phone: [facility] Work Phone: 10-23-2021 14:22-0400 SaO2% (BldA) [Mass fraction] 92 % Dr. Linda Dominguez Work Phone: [facility] Work Phone: 10-23-2021 14:22-0400 Systolic blood pressure 127 mm[Hg] Dr. Linda Dominguez Work Phone: [facility] Work Phone: 10-23-2021 04:45-0400 Body weight 110.[address] Linda Dominguez Work Phone: [facility] Work Phone: 10-12-2021 02:15-0500 Inhaled oxygen flow rate 4 L/min Dr. Linda Dominguez Work Phone: [facility] Work Phone: 10-09-2021 14:17-0500 Body mass index (BMI) [Ratio] 29 kg/m2 Dr. Linda Dominguez Work Phone: [facility] Work Phone: 10-09-2021 13:17-0500 Body mass index (BMI) [Ratio] 29 kg/m2 Dr. Linda Dominguez Work Phone: [facility] Work Phone: 09-26-2021 07:56-0500 Inhaled oxygen concentration 95 % Dr. Linda Dominguez Work Phone: [facility] Work Phone: 09-26-2021 06:56-0500 Inhaled oxygen concentration 95 % Dr. Linda Dominguez Work Phone: [facility] Work Phone: Encounters Encounter Date Encounter Type Care Provider Facility Start: 04-27-2025 End: 04-27-2025 ambulatory Zoraida Ned Facility[place] Start: 04-21-2025 ambulatory Zoraida Ned Facility :[facility] Start: 04-14-2025 End: 04-14-2025 Emergency department patient visit Dr. Zoraida Marino MD Work Phone: -Emergency Department Work Phone: Start: 11-09-2024 End: 11-09-[address] Zoraida Marino MD Work Phone: [facility] Work Phone: Start: 11-09-2024 End: 11-09-2024 Patient encounter procedure Maddison LOPEZ -Cardiovascular Services Work Phone: Start: 11-09-2024 End: 11-09-2024 ambulatory [facility] Facility:[facility] Start: 10-24-2024 End: 10-24-[address] Zoraida Marino MD -[facility] Work Phone: Start: 10-24-2024 End: 10-24-20[facility] Start: 10-10-2024 ambulatory [facility] Facility :[facility] Start: 10-10-[address] Verna Hui MD -[facility] Start: 10-04-2024 ambulatory Verna Pike ty:[facility] Start: 10-04-[address] Verna Hui MD -[facility] Start: 09-30-2024 Non-patient / Non-visit Dr. Shanon Bravo [facility] Work Phone: Start: 09-29-2024 Non-patient / Non-visit Dr. Shanon Bravo DO -[facility] Work Phone: Start: 09-28-2024 Non-patient / Non-visit Dr. Dieudonne Thompson own DO -[facility] Start: 09-27-2024 Non-patient / Non-visit Dr. Dieudonne Thompson own DO -[facility] Start: 09-27-2024 Non-patient / Non-visit Dr. Tricia doss MD -[facility] Work Phone: Start: 09-26-2024 Non-patient / Non-visit Dr. Jean Claude mccurdy DO [facility] Work Phone: Start: 09-26-2024 ambulatory [facility] Facility :[facility] Start: 09-26-2024 End: 09-30-2024 Evaluation and management of inpatient Dr. Shanon Bravo DO -Intensive Care Unit Work Phone: Start: 08-16-2024 End: 08-16-[address] Zoraida Marino MD -[facility] Work Phone: Start: 08-16-2024 End: 08-16-2024 ambulatory Zoraida Marino Facility:[facility] Start: 07-31-2024 End: 07-31-2024 Emergency department patient visit Dr. Baljit Fleming DO -Emergency Department Work Phone: Start: 06-01-2024 End: 06-01-2024 ambulatory EVAN WALDEN Facility:[facility] Start: 06-01-2024 End: 06-01-2024 Patient encounter procedure Evan Walden MD Work Phone: Neurology Comment on above: Parkinson's disease without dyskinesia or fluctuating manifestations (HCC) (Primary Dx); Anxiety and depression; Insomnia, unspecified type Start: 05-18-2024 End: 05-18-2024 ambulatory Zoraida Marino Facility:[facility] Start: 04-29-2024 End: 04-29-2024 ambulatory Zoraida Marino Facility:[facility] Start: 10-07-2023 End: 10-07-[address] Zoraida Marino Work Phone: [facility] Work Phone: Start: 10-07-2023 End: 10-07-[address] Zoraida Marino Work Phone: [facility]-Sleep Lab Work Phone: Start: 09-11-2023 End: 09-11-[address] Zoraida Marino Work Phone: [facility] Work Phone: Start: 09-11-2023 End: 09-11-[address] Zoraida Marino Work Phone: [facility]-Sleep Lab Work Phone: Start: 08-31-2023 End: 08-31-[address] [facility] Work Phone: Start: 08-26-2023 End: 08-26-[address] Zoraida Marino Work Phone: [facility] Work Phone: Start: 08-17-2023 End: 08-17-[address] Zoraida Marino Work Phone: [facility] Medicine Work Phone: Start: 08-14-2023 End: 08-14-[address] Zoraida Marino Work Phone: [facility] Work Phone: Start: 08-14-2023 End: 08-14-[address] Zoraida Marino Work Phone: [facility]-Sleep Lab Work Phone: Start: 07-22-2023 End: 07-22-[address] Zoraida Marino Work Phone: [facility] Work Phone: Start: 07-22-2023 End: 07-22-[address] Zoraida Marino Work Phone: [facility]-Laboratory Work Phone: Start: 07-02-2023 End: 07-02-[address] Zoraida Marino Work Phone: [facility] Neurology Work Phone: Start: 05-07-2023 End: 05-07-[address] Zoraida Marino Work Phone: [facility] Neurology Work Phone: Start: 10-13-2022 End: 10-13-[address] Zoraida Marino Work Phone: [facility] Work Phone: Start: 10-13-2022 End: 10-13-[address] Zoraida Marino Work Phone: [facility]-Laboratory Start: 10-09-2022 End: 10-09-[address] Zoraida Marino Work Phone: [facility] Neurology Start: 09-15-2022 End: 09-15-[address] Zoraida Marino Work Phone: [facility]-Pulmonary Services/Neurology Start: 08-14-2022 Non-patient / Non-visit Dr. Echevarria Work Phone: [facility] Start: 08-14-2022 End: 08-14-2022 Admission to same day surgery center Dr. Zoraida Marino Work Phone: [facility]-Endoscopy Start: 07-21-2022 End: 07-21-[address] Zoraida Marino Work Phone: [facility] Neurology Start: 02-24-2022 ambulatory Sabrina Acosta [facility] Comment on above: Population Health [facility] ([facility]) Start: 01-31-2022 End: 01-31-[address] Linda Dominguez Work Phone: [facility] Start: 01-23-2022 End: 01-23-[address] Linda Dominguez Work Phone: [facility] Internal Medicine Start: 01-09-2022 End: 01-09-2022 [...] encounter procedure Dr. Linda Dominguez Work Phone: [facility] Start: 11-26-2021 End: 11-26-[address] Linda Dominguez Work Phone: [facility] Start: 11-22-2021 End: 11-22-[address] Linda Dominguez Work Phone: [facility] Start: 11-14-2021 End: 11-14-[address] Linda Dominguez Work Phone: [facility] Start: 11-13-2021 End: 11-13-2021 Emergency department patient visit Dr. Linda Dominguez Work Phone: [facility]-Emergency Department Start: 11-12-2021 Telephone encounter Linda klein MD Work Phone: Internal Medicine [place] Comment on above: home health OT huber ng (severe backpain) Start: 11-11-2021 Patient Outreach Linda mansfield MD Work Phone: Internal Medicine [place] Comment on above: Transition Of Care Start: 11-06-2021 Telephone encounter Linda klein MD Work Phone: Internal Medicine [place] Comment on above: home health calling Start: 11-06-2021 Non-patient / Non-visit Dr. Brina Dominguez Work Phone: [facility] Start: 11-04-2021 Non-patient / Non-visit Dr. Brina Dominguez Work Phone: [facility] Start: 11-01-2021 Non-patient / Non-visit Dr. Brina Dominguez Work Phone: [facility] Start: 10-31-2021 Non-patient / Non-visit Dr. Brina Dominguez Work Phone: [facility] Start: 10-29-2021 Non-patient / Non-visit Dr. Brina Dominguez Work Phone: [facility] Start: 10-28-2021 Non-patient / Non-visit Dr. Brina Dominguez Work Phone: [facility] Start: 10-27-2021 Non-patient / Non-visit Dr. Brina Dominguez Work Phone: [facility] Start: 10-26-2021 Non-patient / Non-visit Dr. Brina Dominguez Work Phone: [facility] Start: 10-25-2021 Non-patient / Non-visit Dr. Brina Dominguez Work Phone: [facility] Start: 10-24-2021 Non-patient / Non-visit Dr. Brina Dominguez Work Phone: [facility] Start: 10-23-2021 End: 11-09-2021 Evaluation and management of inpatient Dr. Linda Dominguez Work Phone: [facility]-Transitional Care Unit Start: 10-23-2021 Non-patient / Non-visit Dr. Brina Dominguez Work Phone: [facility] Start: 10-22-2021 Non-patient / Non-visit Dr. Brina Dominguez Work Phone: [facility] Start: 10-21-2021 Non-patient / Non-visit Dr. Brina Dominguez Work Phone: [facility] Start: 10-20-2021 Non-patient / Non-visit Dr. Brina Dominguez Work Phone: [facility] Start: 10-19-2021 Non-patient / Non-visit Dr. Brina Dominguez Work Phone: [facility] Start: 10-18-2021 Non-patient / Non-visit Dr. Brina Dominguez Work Phone: [facility] Start: 10-17-2021 Non-patient / Non-visit Dr. Brina Dominguez Work Phone: [facility] Start: 10-16-2021 Non-patient / Non-visit Dr. Brina Dominguez Work Phone: [facility] Start: 10-15-2021 Non-patient / Non-visit Dr. Brina Dominguez Work Phone: [facility] Start: 10-14-2021 Non-patient / Non-visit Dr. Brina Dominguez Work Phone: [facility] Start: 10-11-2021 Non-patient / Non-visit Dr. Brina Dominguez Work Phone: [facility] Start: 10-10-2021 Non-patient / Non-visit Dr. Brina Dominguez Work Phone: [facility] Start: 10-09-2021 Non-patient / Non-visit Dr. Brina Dominguez Work Phone: [facility] Start: 10-08-2021 Non-patient / Non-visit Dr. Brina Dominguez Work Phone: [facility] Start: 10-07-2021 Non-patient / Non-visit Dr. Brina Dominguez Work Phone: [facility] Start: 10-06-2021 Non-patient / Non-visit Dr. Brina Dominguez Work Phone: [facility] Start: 10-05-2021 Non-patient / Non-visit Dr. Brina Dominguez Work Phone: [facility] Start: 10-04-2021 Non-patient / Non-visit Dr. Brina Dominguez Work Phone: [facility] Start: 10-03-2021 Non-patient / Non-visit Dr. Brina Dominguez Work Phone: [facility] Start: 10-02-2021 Non-patient / Non-visit Dr. Brina Dominguez Work Phone: [facility] Start: 10-01-2021 Non-patient / Non-visit Dr. Brina Dominguez Work Phone: [facility] Start: 09-30-2021 Non-patient / Non-visit Dr. Brina Dominguez Work Phone: [facility] Start: 09-27-2021 Non-patient / Non-visit Dr. Brina Dominguez Work Phone: [facility] Start: 09-26-2021 Non-patient / Non-visit Dr. Brina Dominguez Work Phone: [facility] Start: 09-25-2021 Non-patient / Non-visit Dr. Brina Dominguez Work Phone: [facility] Start: 09-24-2021 Non-patient / Non-visit Dr. Brina Dominguez Work Phone: [facility] Start: 09-23-2021 Non-patient / Non-visit Dr. Brina Dominguez Work Phone: [facility] Start: 09-22-2021 Non-patient / Non-visit Dr. Brina Dominguez Work Phone: [facility] Start: 09-21-2021 End: 10-23-2021 Evaluation and management of inpatient [facility] Start: 09-21-2021 Non-patient / Non-visit Dr. Brina Dominguez Work Phone: [facility] Start: 06-12-2021 End: 06-12-2021 Subsequent hospital visit by physician X[facility] Work Phone: Radiology Comment on above: [...] compl ete minimum 2 views Elidia Dacaiohausen BASKET PATCHER.RETAIL ACCOUNT REPRESENTATIVE Work Phone: Start: 02-07-2021 Lipid 1996 panel [...] RSV Vaccine (1 - 1-dose 75+ series) [facility] Start: 02-07-2026 Lipid panel Lipid Screening [facility] Start: 02-07-2026 LIPID SCREEN LIPID SCREEN [facility] Start: 05-22-2025 PROSTATE CANCER SCRE ENING DISCUSSION PROSTATE CANCER SCREENING DISCUSSION [facility] Start: 05-22-2025 Prostate specific an tigen measurement Prostate Cancer Screening Discussion [facility] Start: 04-14-2025 [facility] Start: 09-30-2024 Patient discharge [facility] Start: 09-29-2024 Care planning and pr oblem solving actions [facility] Start: 09-28-2024 [facility] Start: 09-28-2024 Determination of Chao hmond Agitation Sedation Scale (RASS) score with assessment for d [facility] Start: 09-27-2024 End: 09-27-2024 [facility] Start: 09-27-2024 Provision of overbed trapeze [facility] Start: 09-27-2024 Ambulation therapy management [facility] Start: 09-27-2024 Application of device [facility] Start: 09-27-2024 Catheterization of vein [facility] Start: 09-27-2024 Exercises [facility] Start: 09-27-2024 Following clinical pathway protocol [facility] Start: 09-27-2024 Introduction of urin pawel catheter [facility] Start: 09-27-2024 Measuring intake and output [facility] Start: 09-27-2024 Neurovascular assessment [facility] Start: 09-27-2024 Patient education [facility] Start: 09-27-2024 Procedure discontinued [facility] Start: 09-27-2024 Provision of activit y privileges [facility] Start: 09-27-2024 Recommendation to continue with treatment [facility] Start: 09-27-2024 Referral to occupati onal therapist [facility] Start: 09-27-2024 Vital signs measurements [facility] Start: 09-27-2024 Wound care [facility] Start: 09-27-2024 Measuring intake and output [facility] Start: 09-27-2024 Measuring intake and output [facility] Start: 09-27-2024 Care planning and pr oblem solving actions [facility] Start: 09-27-2024 Measuring intake and output [facility] Start: 09-27-2024 Oral health maintenance [facility] Start: 09-26-2024 Following clinical pathway protocol [facility] Start: 09-26-2024 Application of ice collar, cap or bag [facility] Start: 09-26-2024 Bedrest [facility] Start: 09-26-2024 Consultation [facility] Start: 09-26-2024 Insertion of cathete r into peripheral vein [facility] Start: 09-26-2024 Neurovascular assessment [facility] Start: 09-26-2024 Providing care accor ding to standard [facility] Start: 09-26-2024 Referral to service [facility] Start: 09-26-2024 Skin care [facility] Start: 09-26-2024 [facility] Start: 09-26-2024 Measuring intake and output [facility] Start: 09-26-2024 Admission procedure [facility] Start: 09-14-2024 End: 09-14-2024 Patient encounter procedure 09/14/2024 1:30 PM EST Office Visit Neurology [address] [address] [place] [phone] Evan Walden MD [address] [facility] [facility] [place] [id number] 3 month follow up Neurology Comment on above: 3 month follow up Start: 08-17-2024 Patient referral [facility] Work Phone: Start: 06-01-2024 End: 06-01-2024 Patient encounter procedure 06/01/2024 3:00 PM EDT Office Visit Neurology [address] [facility] [place] [place] [phone] Evan Walden MD [address] [facility] [address] [place], [place] [id number] having tremors in his hands, involutary tongue movements Neurology Comment on above: having tremors in hi s hands, involutary tongue movements Start: 04-03-2024 Covid-19 Vaccine ( season) Covid-19 Vaccine ( season) [facility] Start: 04-03-2024 Covid-19 Vaccine ( season) Covid-19 Vaccine ( season) [facility] Start: 04-03-2024 Influenza vaccination Influenza Vacc ine (#1) [facility] Start: 02-08-2024 DIABETES SCREEN DIABETES SCREEN [facility] Start: 02-08-2024 Diabetes Screening Diabetes Screenin g [facility] Start: 10-21-2023 Urine microalbumin profile [facility] Start: 08-14-2022 Colsc flx w/rmvl of tumor polyp lesion snare tq COLONOSCOPY W/LESION REMOVAL [facility] Start: 08-14-2022 Patient discharge [facility] Start: 07-11-2022 BP CONTROLLED (<130/80) BP CONTROLLE D (<130/80) [facility] Start: 04-03-2022 Influenza vaccination [facility] Start: 02-08-2022 ANNUAL PCP TEAM 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 MACK DISEASE VISIT ANNUAL PCP TEAM CHRONIC DISEASE VISIT [facility] Start: 02-08-2022 SHINGRIX VACCINE (1 of 2) CORBIN GRIX VACCINE (1 of 2) [facility] Comment on above: Postponed from 09/09 (Declined at this time) Start: 01-23-2022 Patient referral [facility] Work Phone: Start: 11-16-2021 COVID-19 VACCINE (4 - Booster for Pfizer series) COVID-19 VACCINE (4 - Booster for Pfizer series) [facility] Start: 11-09-2021 Development of care plan [facility] Work Phone: Start: 11-09-2021 Patient discharge [facility] Work Phone: Start: 11-06-2021 Referral to service [facility] Work Phone: Start: 11-04-2021 [facility] Work Phone: Start: 10-28-2021 Consultation [facility] Work Phone: Start: 10-27-2021 [facility] Work Phone: Start: 10-26-2021 [facility] Work Phone: Start: 10-26-2021 Continuous pulse oximetry [facility] Work Phone: Start: 10-26-2021 Oxygen therapy [facility] Work Phone: Start: 10-26-2021 Dual pressure sponta neous ventilation support [facility] Work Phone: Start: 10-25-2021 [facility] Work Phone: Start: 10-24-2021 Developing a treatme nt plan [facility] Work Phone: Start: 10-24-2021 Development of care plan [facility] Work Phone: Start: 10-24-2021 Application of elast ic bandage [facility] Work Phone: Start: 10-23-2021 Referral to general surgeon [facility] Work Phone: Start: 10-23-2021 Patient referral to dietitian [facility] Work Phone: Start: 10-23-2021 Peripherally inserte d central catheter care [facility] Work Phone: Start: 10-23-2021 Consultation for treatment [facility] Work Phone: Start: 10-23-2021 Wound care [facility] Work Phone: Start: 10-23-2021 Admission procedure [facility] Work Phone: Start: 10-23-2021 Measuring intake and output [facility] Work Phone: Start: 10-23-2021 Patient referral to dietitian [facility] Work Phone: Start: 10-23-2021 Referral to occupati onal therapist [facility] Work Phone: Start: 10-23-2021 Referral to service [facility] Work Phone: Start: 10-23-2021 Vital signs measurements [facility] Work Phone: Start: 10-23-2021 [facility] Work Phone: Start: 10-23-2021 Patient discharge [facility] Work Phone: Start: 10-23-2021 [facility] Work Phone: Start: 10-18-2021 Administration of to josselin parenteral nutrition [facility] Work Phone: Start: 10-17-2021 Administration of to josselin parenteral nutrition [facility] Work Phone: Start: 10-17-2021 [facility] Work Phone: Start: 10-16-2021 Referral to service [facility] Work Phone: Start: 10-16-2021 Administration of to josselin parenteral nutrition [facility] Work Phone: Start: 10-16-2021 [facility] Work Phone: Start: 10-15-2021 Administration of to josselin parenteral nutrition [facility] Work Phone: Start: 10-15-2021 [facility] Work Phone: Start: 10-14-2021 Administration of to josselin parenteral nutrition [facility] Work Phone: Start: 10-13-2021 [facility] Work Phone: Start: 10-13-2021 Administration of to josselin parenteral nutrition [facility] Work Phone: Start: 10-12-2021 Administration of to josselin parenteral nutrition [facility] Work Phone: Start: 10-11-2021 End: 10-12-2021 [facility] Work Phone: Start: 10-11-2021 Consultation [facility] Work Phone: Start: 10-11-2021 Administration of to josselin parenteral nutrition [facility] Work Phone: Start: 10-11-2021 Consultation for treatment [facility] Work Phone: Start: 10-10-2021 Referral to occupati onal therapist [facility] Work Phone: Start: 10-10-2021 Referral to service [facility] Work Phone: Start: 10-10-2021 Wound care [facility] Work Phone: Start: 10-10-2021 Administration of to josselin parenteral nutrition [facility] Work Phone: Start: 10-09-2021 End: 10-09-2021 Administration of total parenteral nutrition [facility] Work Phone: Start: 10-08-2021 Administration of to josselin parenteral nutrition [facility] Work Phone: Start: 10-07-2021 Administration of to josselin parenteral nutrition [facility] Work Phone: Start: 10-06-2021 Administration of to josselin parenteral nutrition [facility] Work Phone: Start: 10-05-2021 Administration of to josselin parenteral nutrition [facility] Work Phone: Start: 10-05-2021 Elevation of head of bed [facility] Work Phone: Start: 10-04-2021 Administration of to josselin parenteral nutrition [facility] Work Phone: Start: 10-03-2021 [facility] Work Phone: Start: 10-03-2021 Administration of to josselin parenteral nutrition [facility] Work Phone: Start: 10-02-2021 Administration of to josselin parenteral nutrition [facility] Work Phone: Start: 10-01-2021 Administration of to josselin parenteral nutrition [facility] Work Phone: Start: 09-29-2021 Care planning and pr oblem solving actions [facility] Work Phone: Start: 09-26-2021 Incentive spirometry [facility] Work Phone: Start: 09-25-2021 Introduction of urin pawel catheter [facility] Work Phone: Start: 09-24-2021 Inhalation therapy procedure [facility] Work Phone: Start: 09-22-2021 Application of ice collar, cap or bag [facility] Work Phone: Start: 09-22-2021 End: 09-22-2021 Referral to service [facility] Work Phone: Start: 09-21-2021 Application of intermittent pneumatic compression device [facility] Work Phone: Start: 09-21-2021 Admission procedure [facility] Work Phone: Start: 09-21-2021 Following clinical pathway protocol [facility] Work Phone: Start: 09-21-2021 Admission procedure [facility] Work Phone: Start: 09-21-2021 Assessment of risk o f venous thromboembolism [facility] Work Phone: Start: 09-21-2021 Catheterization of vein [facility] Work Phone: Start: 09-21-2021 Insertion of cathete r into peripheral vein [facility] Work Phone: Start: 09-21-2021 Providing care accor ding to standard [facility] Work Phone: Start: 09-21-2021 [facility] Work Phone: Start: 09-21-2021 Patient referral to dietitian [facility] Work Phone: Start: 09-20-2021 Adult depression screening assessment DEPRESSION SCREENING [facility] Start: 2009 SHINGRIX VACCINE (1 of 2) CORBIN GRIX VACCINE (1 of 2) [facility] Start: 2004 COLOGUARD (FIT-DNA) COLOGUARD (FIT-D NA) [facility] Start: 2004 Colonoscopy COLONOSCOPY [facility] Start: 2004 COLORECTAL CANCER SCREENING COLORECTAL CANCER SCREENING [facility] Start: [address] COLONOGRAPHY [facility] Start: 2004 FECAL OCCULT BLOOD FECAL OCCULT BLOO D [facility] Start: 2004 Screening for malign ant neoplasm of colon [facility] Start: 2004 SIGMOIDOSCOPY SIGMOIDOSCOPY [facility] Start: 1977 Anxiety Screening Anxiety Screening [facility] Start: 1977 BP Controlled (<130/80) BP Controlle d (<130/80) [facility] Start: 1977 Depression Screening Depression Scre ening [facility] Start: 1977 HEPATITIS C SCREENING HEPATITIS C [facility] Start: 1977 Hepatitis C screening Hepatitis C [facility] Start: 1977 HIV SCREENING HIV SCREENING [facility] Start: 1977 HIV screening HIV Screening [facility] Start: 1964 COVID-19 VACCINE (1) COVID-19 VACCIN E (1) [facility] Njx dx/ther sbst int rlmnr crv/thrc w/img gdn EPI CERV OR THORC W/IMAGING Procedures Routine Spinal stenosis of cervical region Ordered: 01/03/2022 [facility] Work Phone: Comment on above: Ordered: 01/03/2022 Patient Education [facility] Work Phone: Patient referral [facility] Work Phone: Polysomnography [facility] US.doppler Lower extremity vein [facility] Clin [facility] Immunizations Immunization Date Immunization Notes Care Provider Fa simon 05-29-2022 Covid Pfizer Bivalen t Booster Dr. Zoraida Marino Work Phone: [facility] 07-18-2021 Covid (Pfizer) Dr. Linda monte Work Phone: [facility] 11-18-2020 Covid (Pfizer) Dr. Linda monte Work Phone: [facility] 10-27-2020 Covid (Pfizer) Dr. Linda monte Work Phone: [facility] 08-19-2018 influenza virus vaccine, unspecified formulation Xr [place] Work Phone: [facility] 10-20-2013 tetanus toxoid, redu solo diphtheria toxoid, and acellular pertussis vaccine, adsorbed Linda Dominguez MD Work Phone: [facility] Payers Date Payer Category Payer Self-pay [id number] 2023 Medicare [id number] 2002 Medicare MEDICARE MEDICAR E A AND B [id number] 2002-Present [phone] [address] [address] [place] [address] Medicare [id number] 2002 Medicare [id number] Medicaid [id number] Medicare [id number] Unknown [id number] Unknown [id number] Unknown [id number] Unknown [id number] [id number] Unknown [id number] [id number] Unknown [id number] [id number] Unknown [id number] [id number] Unknown [id number] 2.16.840.1.379775.3.579.2.462 Unknown [id number] 2.16.840.1.132588.3.579.2.462 Unknown [id number] 2.16.840.1.621606.3.579.2.462 Unknown [id number] 2.16.840.1.021912.3.579.2.462 Unknown [id number] 2.16.840.1.802729.3.579.2.462 Unknown [id number] 2.16.840.1.398625.3.579.2.462 Unknown [id number] 2.16.840.1.286984.3.579.2.462 Unknown [id number] 2.16.840.1.016762.3.579.2.462 Unknown [id number] 2.16.840.1.086531.3.579.2.462 Unknown [id number] [id number] Unknown [id number] [id number] Unknown [id number] [id number] Unknown [id number] [id number] Unknown [id number] Social History Date Type Detail Facility Start: 09-04-2017 End: 04-14-2025 Tobacco smoking status NHIS Ex-smoker [facility] Work Phone: Start: 07-11-2021 End: 06-01-2024 Alcohol intake Current non-drinker of alcohol (finding) [facility] Start: 02-08-2021 History SDOH Alcohol Frequency 1 [facility] Start: 02-08-2021 History SDOH Alcohol Std Drinks 98 [facility] Start: 02-08-2021 History SDOH Social Connections Get Together 2 [facility] Start: 02-08-2021 History SDOH Social Connections Restorationism 3 [facility] Start: 02-08-2021 History SDOH Financial 4 [facility] Start: 02-08-2021 Education 14 [facility] Start: 04-25-2014 Tobacco Comment quit 1981 [facility] Start: 1960 Sex Assigned At Not on file [facility] Start: 10-23-2021 End: 08-31-2023 Tobacco smoking status WYIS Unknown if ever smoked [facility] Start: 05-18-2018 Heavy [facility] Start: 05-18-2018 None [facility] Start: 05-18-2018 Spouse/ Significant Other [facility] Start: 05-23-2018 Cigarettes [facility] Start: 1960 Sex Assigned At Male [facility] Start: 04-30-2021 End: 01-08-2022 Exposure to SARS-CoV-2 (event) Not sure [facility] History of tobacco use Current smoker [facility] Start: 09-04-2017 Tobacco use and exposure Smokeless tobacco non-user [facility] Start: 02-08-2021 End: 06-01-2024 History of Social function [facility] Start: 02-08-2021 End: 06-01-2024 Social connection and isolation panel [facility] Do you belong to any clubs or organizations such as hindu groups, unions, fraternal or athletic groups, or school groups? No [facility] How often do you att end meetings of the clubs or organizations you belong to? Patient declined [facility] Are you now , , , , never or living with a partner? [facility] How often to you hav e a drink containing alcohol? Never [facility] How hard is it for y ou to pay for the very basics like food, housing, medical care, and heating Not very hard [facility] Do you feel stress - tense, restless, nervous, or anxious, or unable to sleep at night because your mind is troubled all the time - these days [OSQ] To some extent [facility] (I/We) worried wheth er (my/our) food would run out before (I/we) got money to buy more. Never true [facility] Start: 11-11-2024 Sex Male (finding) [facility] Medical Equipment Procedure Code Equipment Code [...] Appendectomy, laparoscopic Plant polysaccharide haemostatic agent, bioabsorbable ([id number] FDA Start: 09-24-2021 Appendectomy, laparoscopic 45mm Standard [...] Assessment Result Facility 09-30-2024 Functional status Chair [facility] Work Phone: 11-09-2021 Functional status Activity Abili ty With Assist of 1 [facility] Work Phone: 11-02-2021 Functional status Ambulates [facility] Work Phone: 10-25-2021 Functional status Tolerates Activity Well [facility] Work Phone: 10-22-2021 Functional status Chair [facility] Work Phone: Mental Status Date Assessment Result Facility 09-30-2024 Cognitive function Voice/Name [facility] Work Phone: 07-31-2024 Cognitive function Awake;Alert;A ppropriate;Follow s Commands [facility] Work Phone: 08-14-2022 Cognitive function Level Of Cons ciousness Awake;Appropriate [facility] Work Phone: 08-14-2022 Cognitive function Voice/Name [facility] Work Phone: 11-09-2021 Cognitive function Voice/Name [facility] Work Phone: 10-25-2021 Cognitive function Intact [facility] Work Phone: 10-23-2021 Cognitive function Voice/Name [facility] Work Phone: 10-21-2021 Cognitive function Appropriate;Cooperativ e [facility] Work Phone: Clinical Notes 06-12-2021 to 04-14-2025 Note Date & Type Note Facility 04-14-2025 Discharge summary [facility] 04-14-2025 Radiology Diagnostic study note [facility] Imaging Services [address], [place] [address] Lumbar Spine 2 or 3 Views MR#: [id number] Acct: [id number] Name: OLGA MARTIN Rep #: [id number] : [id number] M 64 From: [place] MD PCP: Dr. Zoraida Marino MD Status: REG ER Study:Lumbar Spine 2 or 3 Views Date of Exam: 04/14/25 Exam# [id number] Ordering Dr: Ada Neal MD PROCEDURE: LUMBAR [...] thoracolumbar wedge compression fracture deformities. Reading Location: [facility] CC: Dr. Zoraida Marino MD; Dr. Franklin Neal MD ~ Tax Services Specialist: Signed [facility] 04-14-2025 Discharge summary Note Date/Time April 14, 2025 9:10pm [facility] Medical Records Department [address] [place] [address] Emergency Department Summary 04/14/25 MR#: [id number] Acct: [id number] Name: OLGA MARTIN Rep #:[id number] : [id number] 64 From: Franklin Neal MD [...] similar symptoms: Yes Recent Illness/Hospitalization: No [facility] Medical History Fracture, intertrochanteric, right femur [...] % (Auto) 61.0 Lymph % (Auto) 26.8 [place] % (Auto) 10.0 Eos % (Auto) 1.0 [...] thoracolumbar wedge compression fracture deformities. Reading Location: [facility] Treatment and Re-Evaluation :: Patient and [...] Care Provider] - As Needed Print Language: Pashto Disposition Disposition: Home, Self Care What to do if you have Problems For any increased pain, shortness of breath, bleeding, nausea or vomiting, chestpain, or any unexpected problems, contact your Primary Care Provider. Call [facility] ([phone]) or report to the closest Emergency Room. Call 911 if necessary. 04/14/252109 <Electronically signed by Franklin Neal MD> Cosigner Signature (if applicable): CC: Dr. Zoraida Marino MD ~ Signed [facility] Work Phone: 1(234) 220-166702-28-2025 [facility]02-25-2025 [facility]01-14-2025 Evaluation note* Diagnosis Onset Date Resolution Status [...] 7:54am Essential hypertension noneactive [facility] 2024 7:54am Hospital discharge follow-up noneact aby October 24, 2024 7:54am [facility] Work Phone: 1(936) 508-681410-30-2024 Instructions* Patient Instructions* Evan Walden MD - [...] try to help nausea. documented [facility]24 NoteHNO ID: [id number] Author: EVAN WALDEN MD Service: ? Author [...] tremors. (more content not included)... [facility]10-30-2024 History of Present illness Narrative* Evan Walden [...] will consider seeing 's psychiatrist. Elidia Gamboa RETAIL ACCOUNT REPRESENTATIVE 05/30/21 and 07/11/21: Ordered MRI C-spine but [...] this is more likely degenerative signal than self pay representative of discitis. I see no sign [...] regarding the above issues. Evan Walden MD [facility] Neurology documented in this encounter[facility]07-25-2022 History of Present illness Narrative* [...] 24, 2022 9:37 AM documented in this encounterMet[facility]06-09-2022 History of Present illness Narrative* Nisa Hilario APRN.RETAIL ACCOUNT REPRESENTATIVE - 01/09/2022 10:59 AM EDT SUBJECTIVE: Olga Martin [facility] to [facility] Pain Management Department for a follow [...] struggles with transportation issues and lives in [place]. Patient has a history of spinal fracture [...] suspiciousactivity was identified. 01/09/2022 by Nisa Hilario APRN.RETAIL ACCOUNT REPRESENTATIVE Narcotic Agreement reviewed and signed?: N/A on [...] which included preparing to see the patient, [id number] patient care, completing clinical documentation, performing a medically appropriate examination and ordering medications, tests, or procedures. The above plan and management options were discussed at length with patient. Patient is in agreement with the above and verbalized understanding. Nisa Hilario APRN, CNP January 09, 2022 documented in this encounter[facility]06-03-2022 Miscellaneous Notes* Telephone Encounter - Saba Ny RN - 01/03/2022 2:51 PM EDT Results sent via Marginize at this time * Telephone Encounter - iNsa Hilario APRN.CNP - 01/03/2022 2:30 PM EDT [...] upper extremity radicular symptom documented in this encounterMet[facility]06-02-2022 Nurse Note* Josiane Goff RN [...] 2022 TIME: 12:26 PM documented in this encounterMet[facility]04-14-2022 Miscellaneous Notes* Telephone Encounter - [...] at the Continuity of Care document from [facility] on 11/04/21 there was an X- [...] APRN.CNS - 11/12/2021 3:08 PM EDT Check [facility] records to see if this was addressed. If severe symptoms presently then recommend ER visit to evaluate and treat * Telephone Encounter - Felicia Walter LPN - 11/12/2021 2:20 PM EDT Moriah from [facility] Home Health OT calling she was at patient home to do OT eval one time visit. Patient was having so much lumbar area back pain rated at 10 out of a 10, could hardly get out out of bed. .Patient had told her he had fallen in bathroom while he was in the hospital. Patient said he has toget a assistant general manager on his back pain before he can do anything. She is not aware of him taking any medications for his back pain. documented in this encounterMet[facility]04-12-2022 History of Present illness Narrative* Kera Worrell LPN - 11/12/2021 2:16 PM EDT Message left again for return call to complete TCM note and arrange hospital follow up. * Kera Worrell LPN - 11/11/2021 1:43 PM EDT Message left for pt to return call to a nurse to complete TCM note and arrange hospital follow up with pcpc's MICA LAMINATING MACHINE FEEDER. documented in this encounterMet[facility]04-07-2022 Miscellaneous Notes* Telephone Encounter - [...] - 11/06/2021 12:43 PM EDT Ruthy from [facility] Home Health calling received orders for half-way, PT/OT. Patient is discharging from TCU on 11/09 he had appe with preformation and abscess surgery done by Dr Taveras. Asking if PCP would follow patient and sign orders? Please advise documented in this encounterMet[facility]11-10-2021 History of Present illness Narrative* [...] 12, 2021 10:31 AM documented in this encounterMet[facility]11-10-2021 Nurse Note* Miranda Ramos RN - 06/12/2021 10:00 AM EST Message left on Voicemail to arrive @ 1040 & have garbage collector driver home for MRI tomorrow. Nestor Ramos RN [facility]11-10-2021 Nurse Note* Miranda Ramos RN - 06/12/2021 10:00 AM EST Message left on Voicemail to arrive @ 1040 & have garbage collector driver home for MRI tomorrow. Nestor Ramos RN [facility]* Diagnosis Onset Date Resolution Status Intra-abdominal abscess acut e Postoperative wound infection acute Dehydration resolved Diverticulum of small intestine resolved Debility acute Essential tremor acute Intra-abdominal abscess acut e Pancreatitis acute Postoperative wound infection acute Chronic low back pain chroni c Hypertension chronic [facility] Work Phone: Evaluation note* Diagnosis Spinal stenosis of cervical region Spinal stenosis in cervical region [facility]* Diagnosis Spinal stenosis of cervical region- Primary Spinal stenosis in cervical region [facility]* Diagnosis Abnormal involuntary movement- Primary Abnormal involuntary movements Spinal stenosis of cervical region Spinal stenosis in cervical region Cervicalgia [facility]* Diagnosis Onset Date Resolution Status [...] acute Tremor acute Chronic lower back pain e learning developer mack Establishing care with new doctor, encounter for noneactive Essential hypertension nonea [facility] Work Phone: Evaluation note* Diagnosis Onset Date Resolution Status Carpal tunnel syndrome, right acute Cauda equina syndrome chroni c Cerebrovascular small vessel disease chronic Essential tremor chronic Foot drop, bilateral chronic Rubral tremor chronic Carpal tunnel syndrome, right acute Cauda equina syndrome chroni c Cerebrovascular small vessel disease chronic Essential tremor chronic Foot drop, bilateral chronic Rubral tremor chronic [facility] Work Phone: Evaluation note* Diagnosis Onset Date Resolution Status Essential tremor chronic Rubral tremor chronic [facility] Work Phone: Evaluation note* Diagnosis Onset Date Resolution Status Rubral tremor chronic PTSD (post-traumatic stress disorder) acute Tremor acute Chronic lower back pain e learning developer mack Essential hypertension nonea mdive [facility] Work Phone: Evaluation note* Diagnosis Onset Date Resolution Status PTSD (post-traumatic stress disorder) acute Tremor acute Chronic lower back pain e learning developer mack Essential hypertension nonea ctive Tremor acute Severe obstructive sleep apnea noneactive Monaco's cerebellar degeneration acute MADDIE (obstructive sleep apnea) acute [facility] Work Phone: Evaluation note* Diagnosis Chronic right shoulder pain Pain in joint, shoulder region documented in this encounter [facility] note* Diagnosis Parkinson's disease without dyskinesia or fluctuating manifestations (HCC)- Primary Anxiety and depression Dysthymic disorder Insomnia, unspecified type documented in this encounter [facility] noteNo assessment information availableWFirelands Regional [facility] Work Phone: Hospital Discharge instructionsWFirelands [facility] Center Work Phone: Reason for referral (narrative)* Diagnostic Procedure Only (Routine) - Closed Specialty Diagnoses / Procedures Referred By Contac t Referred To Contact XR IMAGING Diagnoses Chronic right shoulder pain Procedures XR SHOULDER GENERAL 3V OR MORE AP/TRUE AP/OTHER RT X-RAY SHOULDER COMPLET MIN 2 VIEWS Elidia Gamboa APRN.CNP [id number] [phone] Xr Imaging [facility] Referral ID Status Reason Start Date Expiration Date V isits Requested Visits Authorized Closed Auto-Generate d Referral 05/30/2021 06/29/2022 1 1 [facility] for referral (narrative)No reason for referral information availableWFirelands Regional Medical Center Work Phone: Reason for visit Narrative* Diagnostic Procedure Only (Routine) - Closed Specialty Diagnoses / Procedures Referred By Contac t Referred To Contact XR IMAGING Diagnoses Chronic right shoulder pain Procedures XR SHOULDER GENERAL 3V OR MORE AP/TRUE AP/OTHER RT X-RAY SHOULDER COMPLET MIN 2 VIEWS Elidia Gamboa APRN.CNP [id number] [phone] Xr Imaging [facility] Referral ID Status Reason Start Date Expiration Date V isits Requested Visits Authorized [id number] Closed Auto-Generate d Referral 05/30/2021 06/29/2022 1 1 [facility] Chief Complaint and Reason for Visit Chief Complaint APPENDICITIS WITH VT CROPERFORATION ACUTE APPENDICITIS ACUTE APPENDICITIS ACUTE APPENDICITIS [...] back pain Hypertension Chief Complaint APPENDICITIS WITH VT CROPERFORATION ACUTE APPENDICITIS ACUTE APPENDICITIS ACUTE APPENDICITIS [...] low grade temp WOUND CHECK WOUND CHECK MICA LAMINATING MACHINE FEEDER, EST. CARE, PT NEEDS NPP TREMOR Reason [...] LAB WORK October 10, 2024 6:4 0am SNF DISCHARGE October 24 7:54am RT LOWER LEG [...] 26, 2024 7:17pm PTSD (post-traumatic stress disorder) [facility] 2024 7:54am Uvular swelling October 24, [...] No October 24, 2021 11:49am Power of Punchboard Inserter Yes October 24 11:49am Advance Directive Response Recorded Date/ Time Name of Medical Power of Punchboard Inserter Briana Martin , October 24, 2021 11:49am Advance Directives No November 12 10:38am Living Will No November 13, 2021 6:29am Power of Punchboard Inserter No November 13 6:29am Advance Directive Response Recorded Date/ Time Advance Directives No February 25 2:05pm Living Will No August 13 11:17am Power of Punchboard Inserter No August 13, 2022 11:17am Advance Directive Response Recorded Date/ Time Advance Directives No March 12, 2023 7:16am Living Will No March 12 7:16am Power of Punchboard Inserter No March 12 7:16am Advance Directive Response Recorded Date/ Time Advance Directives No March 12, 2023 8:16am Living Will No March 12 8:16am Power of Punchboard Inserter No March 12 023 8:16am Advance Directive Response Recorded Date/ Time Living Will No July 31 11:20am Do you have a Healthcare Power of Punchboard Inserter? No July 31, 2024 11:20am Living Will No September 26 9:47pm Do you have a Healthcare Power of Punchboard Inserter? No September 26, 2024 9:47pm Advance Directives No March 12, 2023 8:16am Advance Directive Response Recorded Date/ Time Do you have a Healthcare Power of Punchboard Inserter? Yes April 14, 2025 6:36pm Advance Directives No March 12, 2023 8:16am Summary Purpose Reason for Referral Specialty Diagnoses / Procedures Referred By Contac t Referred To Contact MR IMAGING Diagnoses Spinal stenosis of cervical region Procedures MRI CERVICAL SPINE WO IVCON MRI SPINAL CANAL CERVICAL W/O CONTRAST MATRL Kristopher Corbin MD [address] [facility] [place] [address] Mr Imaging Referral ID Status Reason Start Date Expiration Date V isits Requested Visits Authorized [id number] Closed Auto-Generate d Referral 08/26/2021 09/25/2022 1 1 Specialty Diagnoses / Procedures Referred By Vijaya t Referred To Contact Diagnoses Abnormal involuntary movement Procedures CONSULT TO FUNCTIONAL MOVEMENT DISORDERS (FMD) OFFICE/OUTPATIENT [facility] 60-74 MINUTES Nisa Hilario, BASKET PATCHER.RETAIL ACCOUNT REPRESENTATIVE [address] [place] [address] Referral ID Status Reason Start Date Expiration Date Visits Requested Visits Authorized [id number] Authorized PCP Requested Referral 01/09/2022 01/09/2023 1 [...] or prosecute any alcohol or drug abuse patient.[facility] CenterIn the event this information is protected by the Federal Confidentiality of Alcohol and Drug Abuse Patient Records regulations: The Federal rules restrict any use of the information to criminally investigate or prosecute any alcohol or drug abuse patient.[facility] CenterIn the event this information is protected by the Federal Confidentiality of Alcohol and Drug Abuse Patient Records regulations: The Federal rules restrict any use of the information to criminally investigate or prosecute any alcohol or drug abuse patient.[facility] CenterIn the event this information is protected by the Federal Confidentiality of Alcohol and Drug Abuse Patient Records regulations: The Federal rules restrict any use of the information to criminally investigate or prosecute any alcohol or drug abuse patient.[facility] CenterIn the event this information is protected by the Federal Confidentiality of Alcohol and Drug Abuse Patient Records regulations: The Federal rules restrict any use of the information to criminally investigate or prosecute any alcohol or drug abuse patient.[facility] CenterIn the event this information is protected by the Federal Confidentiality of Alcohol and Drug Abuse Patient Records regulations: The Federal rules restrict any use of the information to criminally investigate or prosecute any alcohol or drug abuse patient.[facility] CenterIn the event this information is protected by the Federal Confidentiality of Alcohol and Drug Abuse Patient Records regulations: The Federal rules restrict any use of the information to criminally investigate or prosecute any alcohol or drug abuse patient.[facility] CenterIn the event this information is protected by the Federal Confidentiality of Alcohol and Drug Abuse Patient Records regulations: The Federal rules restrict any use of the information to criminally investigate or prosecute any alcohol or drug abuse patient.[facility] CenterIn the event this information is protected by the Federal Confidentiality of Alcohol and Drug Abuse Patient Records regulations: The Federal rules restrict any use of the information to criminally investigate or prosecute any alcohol or drug abuse patient.[facility] CenterIn the event this information is protected by the Federal Confidentiality of Alcohol and Drug Abuse Patient Records regulations: The Federal rules restrict any use of the information to criminally investigate or prosecute any alcohol or drug abuse patient.[facility] CenterIn the event this information is protected by the Federal Confidentiality of Alcohol and Drug Abuse Patient Records regulations: The Federal rules restrict any use of the information to criminally investigate or prosecute any alcohol or drug abuse patient.[facility] CenterIn the event this information is protected by the Federal Confidentiality of Alcohol and Drug Abuse Patient Records regulations: The Federal rules restrict any use of the information to criminally investigate or prosecute any alcohol or drug abuse patient.[facility] Reason for Visit (unrecogniz ed [...] W/O CONTRAST Kristopher Reaves MD [address] [facility] [place] [address] Mr Imaging Referral ID Status Reason Start Date Expiration Date V isits Requested Visits Authorized [id number] Closed Auto-Generate d Referral 08/26/2021 09/25/2022 1 1 Reason Comments Results MRI Cervical Spine Reason Comments Results - Mri Reason Onset Date Comments Population Health Navigation Outreach 02/24/[address] [facility] Reason Comments New Patient Having hand tremors and involuntary tongue movements. Care Teams (unrecognized sec tion and content) Corrosion Control Specialist Relationship Specialty Start Date End Date Linda Dmoinguez MD [address] [place] [address] PCP - General Internal Medicine 10/20/13 Corrosion Control Specialist Relationship Specialty Start Date End Date Linda Dominguez MD [address] [place] [address] PCP - General Internal Medicine 10/20/13 Corrosion Control Specialist Relationship Specialty Start Date End Date Linda Dominguez MD [address] [place] [address] PCP - General Internal Medicine 10/20/13 Corrosion Control Specialist Relationship Specialty Start Date End Date Linda Dominguez MD [address] [place] [address] PCP - General Internal Medicine 10/20/13 Corrosion Control Specialist Relationship Specialty Start Date End Date Linda Dominguez MD [address] [place] [address] PCP - General Internal Medicine 10/20/13 Corrosion Control Specialist Relationship Specialty Start Date End Date Linda Dominguez MD [address] [facility] [place] [address] PCP - General Internal Medicine 10/20/13 Corrosion Control Specialist Relationship Specialty Start Date End Date Linda Dominguez MD [address] [facility] [place] [address] PCP - General Internal Medicine 10/20/13 Corrosion Control Specialist Relationship Specialty Start Date End Date Linda Dominguez MD [address] [facility] [place] [address] PCP - General Internal Medicine 10/20/13 Corrosion Control Specialist Relationship Specialty Start Date End Date Maci Marino MD [address] [place] [id number] PCP - General Internal Medicine 02/24/22 Team [...] Provider, Referri ng Provider Active Glenis Suarez MICA LAMINATING MACHINE FEEDER, MICA LAMINATING MACHINE FEEDER-C Attending Provider Active Team Status: Inactive Member Role Status Dates Dr. Zoraida Marino MD Primary Care Provider, Attendi ng Provider Active Team Status: Inactive Member Role Status Dates Dr. Zoraida Marino MD Primary Care Provider Active Glenis Suarez MICA LAMINATING MACHINE FEEDER, MICA LAMINATING MACHINE FEEDER-C Attending Provider Active Corrosion Control Specialist Relationship Specialty Start Date End Date Linda Dominguez MD [address] [place] [address] PCP - General Internal Medicine 10/20/13 02/23/22 Corrosion Control Specialist Relationship Specialty Start Date End Date Zoraida [...] section and content) DATE CREATED AUTHOR 01/03/2022 [facility] DATE CREATED AUTHOR AUTHOR'S ORGANIZ ATION 06/03/2024 [facility] DATE CREATED AUTHOR AUTHOR'S ORGANIZ ATION 04/28/2025 [facility] FOR RECORDS PERTAINING TO PATIENTS [...] BE BASED ON THE PRIMARY CLINICAL RECORDS. [facility] [employer] [facility]. provides no warranty or guarantee of the accuracy or completeness of information in this document.
== END | disposition home or self-care (01) ==
LOC: LABSPEC 04-28 13:28
PROVIDERS: PCP Internal Medicine; Referring Provider Internal Medicine; Visit Provider Internal Medicine
DX: R32 Unspecified urinary incontinence (principal)
CPT/HCPCS: 87086; 87088

== ENCOUNTER → 2025-04-28 | Outpatient (CLI) | payer MEDICARE, SELFPAY | END | disposition home or self-care (01) | LOC: LABSPEC 13:39 | PROVIDERS: PCP Internal Medicine; Referring Provider Internal Medicine; Visit Provider Internal Medicine | DX: Z00.00 Encounter for general adult medical examination without abnormal findings (principal) ==

== ENCOUNTER → 2025-07-11 | Outpatient (CLI) | payer MEDICARE, SELFPAY ==
--- NOTE | 2025-07-11 07:52 | CT_ITS ---
PROCEDURE: BRAIN/HEAD W/WO CONTRAST 07/11/2025 REASON FOR EXAM: VISION CHANGES TECHNIQUE: Procedure Code: CTBRWW Modality: CT Procedure: BRAIN/HEAD W/WO CONTRAST Coronal and Sagittal reconstruction series were provided. CONTRAST: Isovue 370 VOLUME: 45 mL One or more dose reduction techniques were used (e.g., Automated exposure control, adjustment of the mA and/or kV according to patient size, use of iterative reconstruction technique). RADIATION DOSE SUMMARY: CTDlvol: 104.41 mGy DLP: 2000.23 mGycm COMPARISON: None FINDINGS: Acute findings: No intracranial hemorrhage. No territorial infarct. Brain: Within normal limits for age Postcontrast images: No enhancing mass. CSF Spaces: Normal Sinuses/Mastoids: Clear at visualized levels. Bilateral maxillary sinus mucosal thickening. Bones: Unremarkable CT/Brain/Head W/WO Contrast IMPRESSION: No acute findings. Recommend further evaluation with MRI of the orbits. Reading Location: [facility]
[2025-07-11 08:09] VITALS: BP 165/90; PULSE 72; RESP 16; TEMP 36.7; O2SAT 100; BMI 27.2
== END | disposition home or self-care (01) ==
PROVIDERS: PCP Internal Medicine; Referring Provider Internal Medicine; Visit Provider Internal Medicine
DX: H53.9 Unspecified visual disturbance (principal); M54.50 Low back pain, unspecified; G89.29 Other chronic pain; R32 Unspecified urinary incontinence; R15.9 Full incontinence of feces; M25.50 Pain in unspecified joint
CPT/HCPCS: 70470